=== PATIENT | male | born 1985 | race Hispanic/Latino ===

== ENCOUNTER 2018-08-13 13:59 | Emergency (ER) | payer SELFPAY ==
[2018-08-13 15:14] LABS: RBC Red Blood Cell Count 4.32 M/uL (4.33-5.43)
[2018-08-13 15:15] LABS: Absolute Lymphocytes (CBC) 2.2 K/uL (0.7-4.9); Absolute Monocytes 0.6 K/uL (0.1-1.3); Absolute Neutrophil 5.5 K/uL (1.8-8.0); Basophils % 0.3 % (0-1.3); Eosinophils % 2.8 % (0-4.4); Lymphocytes % 26.2 % (15.3-44.8); MCH 31.4 pg (27.0-35.0); MCV 90.4 fL (80-100); Monocytes % 6.5 % (3.3-12.3)
[2018-08-13 15:20] LABS: Protime INR 0.93
[2018-08-13 15:45] LABS: ALT/SGPT 52 U/L (12-78); AST/SGOT 28 U/L (15-37); Albumin 3.8 g/dL (3.4-5.0); Alkaline Phosphatase 77 U/L (45-117); BUN Blood Urea Nitrogen 13 mg/dL (7-18); Bicarbonate 30 mmol/L (21-32); Bilirubin Direct 0.1 mg/dL (0-0.2); Bilirubin Total 0.3 mg/dL (0.2-1.0); Glucose Level 93 mg/dL (74-106); Potassium 4.4 mmol/L (3.5-5.1); Protein, Total 7.8 g/dL (6.4-8.2); Sodium Level 138 mmol/L (136-145)
--- NOTE | 2018-08-13 15:57 | EKG ---
Test Date: 2018-08-13 Test Time: 14:08:49 Alumni Coordinator: SARAH MEASUREMENT RESULTS: Intervals: Rate: 96 MI: 128 QRSD: 88 QT: 338 QTc: 427 [place]: P: 26 MI: 128 QRS: 95 T: 72 INTERPRETIVE STATEMENTS: Normal sinus rhythm Rightward axis Borderline ECG Compared to ECG 02/19/2011 03:48:24 Sinus tachycardia no longer present Electronically Signed On 08-13-18 15:57:07 LINE LEADER by Errol Gallegos
[2018-08-13 16:07] LABS: Barbiturates NEGATIVE (NEGATIVE); Benzodiazepines POSITIVE (NEGATIVE); Cocaine NEGATIVE (NEGATIVE); METHAMPHETAM POSITIVE (NEGATIVE); Methadone NEGATIVE (NEGATIVE); Opiates NEGATIVE (NEGATIVE); Phencyclidine NEGATIVE (NEGATIVE); THC Cannibis POSITIVE (NEGATIVE)
[2018-08-13 16:28] LABS: Urine Blood NEGATIVE (NEG); Urine Glucose NEGATIVE (NEG); Urine Protein NEGATIVE (NEG); Urine pH 7.5 (5.0-7.0)
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
[2018-08-13 18:36] VITALS: TEMP 97.8
[2018-08-13 18:41] VITALS: BP 105/78; O2SAT 98
== END 2018-08-13 18:06 | disposition home or self-care (01) ==
LOC: ER 13:59
DX: Z79.899 Other long term (current) drug therapy (principal); V89.2XXA Person injured in unspecified motor-vehicle accident, traffic, initial encounter; F31.9 Bipolar disorder, unspecified; F41.9 Anxiety disorder, unspecified; F17.290 Nicotine dependence, other tobacco product, uncomplicated
CPT/HCPCS: 36415; 80048; 80076; 80307; 80320; 80329; 81003; 83605; 85025; 85610; 85730; 93005; 99284

== ENCOUNTER 2018-11-15 21:03 | Emergency (ER) | payer SELFPAY ==
[2018-11-15] MEDS ORDERED: NA CHLORIDE 0.9% 1,000 ML ONE (22:07)
[2018-11-15 22:36] LABS: Absolute Lymphocytes (CBC) 2.2 K/uL (0.7-4.9); Absolute Monocytes 0.6 K/uL (0.1-1.3); Absolute Neutrophil 4.6 K/uL (1.8-8.0); Basophils % 0.4 % (0-1.3); Eosinophils % 2.4 % (0-4.4); Hematocrit 37.4 % (39.6-49.0); Lymphocytes % 28.8 % (15.3-44.8); MPV 8.6 fL (7.6-11.3); Monocytes % 7.9 % (3.3-12.3); RBC Red Blood Cell Count 4.16 M/uL (4.33-5.43)
[2018-11-15 22:40] LABS: Protime INR 0.99
[2018-11-15 22:54] LABS: Urine Blood NEGATIVE (NEG); Urine Glucose NEGATIVE (NEG); Urine Protein NEGATIVE (NEG); Urine Specific Gravity 1.015 (1.005-1.030); Urine pH 8.5 (5.0-7.0)
[2018-11-15 22:57] LABS: ALT/SGPT 31 U/L (12-78); AST/SGOT 19 U/L (15-37); Albumin 3.7 g/dL (3.4-5.0); Alkaline Phosphatase 50 U/L (45-117); BUN Blood Urea Nitrogen 11 mg/dL (7-18); Bicarbonate 30 mmol/L (21-32); Bilirubin Direct < 0.1 mg/dL (0-0.2); Bilirubin Total 0.3 mg/dL (0.2-1.0); Glucose Level 86 mg/dL (74-106); Potassium 4.1 mmol/L (3.5-5.1); Protein, Total 7.7 g/dL (6.4-8.2); Sodium Level 139 mmol/L (136-145)
[2018-11-15 22:57] LABS: Barbiturates NEGATIVE (NEGATIVE); Benzodiazepines POSITIVE (NEGATIVE); Cocaine NEGATIVE (NEGATIVE); METHAMPHETAM NEGATIVE (NEGATIVE); Methadone NEGATIVE (NEGATIVE); Opiates NEGATIVE (NEGATIVE); Phencyclidine NEGATIVE (NEGATIVE); THC Cannibis POSITIVE (NEGATIVE)
--- NOTE | 2018-11-16 01:53 | EDPHYS ---
Physician Documentation [facility] Name: Anthony Au Age: 33 yrs Sex: Male : 1985 Arrival Date: 11/15/2018 Time: 21:10 Bed 17 Private MD: ED Physician Rafael Wilson HPI: 11/16 03:31 This 33 yrs old Male presents to ER via EMS with complaints of overdose. tw4 03:31 The patient presents with confusion, decreased mental status, decreased responsiveness. tw4 Onset: The symptoms/episode began/occurred just prior to arrival. Possible causes: drug use, benzodiazepines, narcotics, alcohol, low blood sugar. Associated signs and symptoms: The patient has no apparent associated signs or symptoms. Patient's baseline: Neuro: alert but confused, Motor: no deficits, Ambulation: walks with assist only, Speech:. Historical: - Allergies: 11/15 21:00 No Known Allergies; jb4 - Home Meds: 21:00 clonazepam 2 mg Oral tab 1 tab 2 times per day [Active]; Depakote ER 500 mg Oral Tb24 2 jb4 tabs once daily [Active]; Latuda 80 mg Oral tab 1 tab once daily [Active]; promethazine-codeine 6.25-10 mg/5 mL Oral syrp 5 mL every 6 hours [Active]; straterra [Active]; - PMHx: 21:00 Anxiety; Bipolar disorder; Depression; jb4 - PSHx: 21:00 None; jb4 - Immunization history:: Adult Immunizations up to date, Flu vaccine is not up to date. - Social history:: Smoking status: Patient uses tobacco products, Patient/guardian denies using alcohol, street drugs. - Ebola Screening: : No symptoms or risks identified at this time. ROS: 11/16 03:31 Constitutional: Negative for fever, chills, and weight loss, Cardiovascular: Negative tw4 for chest pain, palpitations, and edema, Respiratory: Negative for shortness of breath, cough, wheezing, and pleuritic chest pain, Abdomen/GI: Negative for abdominal pain, nausea, vomiting, diarrhea, and constipation, Back: Negative for injury and pain, MS/Extremity: Negative for injury and deformity. Neuro: Positive for altered mental status, Negative for dizziness, gait disturbance, headache, hearing loss, seizure activity, speech changes, syncope, near syncope. Exam: 03:31 Constitutional: This is a well developed, well nourished patient who is awake, alert, tw4 and in no acute distress. Head/Face: Normocephalic, atraumatic. Chest/axilla: Normal chest wall appearance and motion. Nontender with no deformity. No lesions are appreciated. Cardiovascular: Regular rate and rhythm with a normal S1 and S2. No gallops, murmurs, or rubs. Normal PMI, no JVD. No pulse deficits. Respiratory: Lungs have equal breath sounds bilaterally, clear to auscultation and percussion. No rales, rhonchi or wheezes noted. No increased work of breathing, no retractions or nasal flaring. Abdomen/GI: Soft, non-tender, with normal bowel sounds. No distension or tympany. No guarding or rebound. No evidence of tenderness throughout. Back: No spinal tenderness. No costovertebral tenderness. Full range of motion. MS/ Extremity: Pulses equal, no cyanosis. Neurovascular intact. Full, normal range of motion. 03:31 Neuro: Orientation: is normal, Mentation: is normal. Vital Signs: 11/15 21:00 BP 110 / 95; Pulse 96; Resp 16; Temp 99.0(O); Pulse Ox 98% on R/A; Weight 99.79 kg (R); jb4 Height 5 ft. 8 in. (172.72 cm) (R); Pain 0/10; 21:46 BP 124 / 94; Pulse 90; Resp 16; Pulse Ox 98% on R/A; mt 23:42 BP 106 / 72; Pulse 88; Resp 17; Pulse Ox 98% on R/A; mt 11/16 00:43 BP 118 / 83; Pulse 87; Resp 20; Pulse Ox 100% on R/A; mt 01:15 BP 108 / 72; Pulse 76; Resp 18; Pulse Ox 99% on R/A; jb4 11/15 21:00 Body Mass Index 33.45 (99.79 kg, 172.72 cm) [facility] MDM: 11/15 21:14 Patient medically screened. tw4 11/16 03:31 Differential Diagnosis: CVA, electrolyte abnormality. Data reviewed: vital signs, tw4 nurses notes. Counseling: I had a detailed discussion with the patient and/or guardian regarding: the historical points, exam findings, and any diagnostic results supporting the discharge/admit diagnosis. Special discussion: I discussed with the patient/guardian in detail that at this point there is no indication for admission to the hospital. It is understood, however, that if the symptoms persist or worsen the patient needs to return immediately for re-evaluation. ED course: Pt became more awake and alert during ED stay. Pt admits to taking too much of his Klomopin. Pt family able to take patient home. 11/15 21:15 Order name: Acetaminophen; Complete Time: 00:11/16 00:13 Interpretation: Within normal limits: ACETA < 2.0. 11/15 21:15 Order name: Basic Metabolic Panel; Complete Time: 00:11/16 00:13 Interpretation: Normal except: GFR 89. 11/15 21:15 Order name: CBC with Diff; Complete Time: 00:13 11/16 00:13 Interpretation: Within normal limits: RBC 4.16; HGB 12.7; HCT 37.4. 11/15 21:15 Order name: ETOH Level; Complete Time: 00:14 11/16 00:14 Interpretation: Within normal limits: ETOH < 3. 11/15 21:15 Order name: Hepatic Function; Complete Time: 00:13 11/16 00:13 Interpretation: Normal except: GLOB 4.0; A/G 0.9. 11/15 21:15 Order name: PT-INR; Complete Time: 00:14 11/16 00:14 Interpretation: Within normal limits: PT 11.7. 11/15 21:15 Order name: Ptt, Activated; Complete Time: 00:14 11/16 00:14 Interpretation: PTT 29.1. 11/15 21:15 Order name: Salicylate; Complete Time: 00:11/16 00:13 Interpretation: Normal except: RENALDO < 1.7. 11/15 21:15 Order name: Urine Drug Screen; Complete Time: 00:13 11/16 00:13 Interpretation: Normal except: BZO POSITIVE; THC POSITIVE. 11/15 21:15 Order name: EKG; Complete Time: 22:24 11/15 21:15 Order name: EKG - Nurse/Tech; Complete Time: 21:46 4 11/15 22:36 Order name: Urine Dipstick--Ancillary (enter results); Complete Time: 00:13 4 11/16 00:13 Interpretation: Normal except: UPH 8.5. tw4 11/15 21:15 Order name: IV Saline Lock; Complete Time: 21:46 tw4 11/15 21:15 Order name: Labs collected and sent; Complete Time: 21:46 4 11/15 21:15 Order name: Urine Dipstick-Ancillary (obtain specimen); Complete Time: 22:21 tw4 Administered Medications: 11/15 21:50 Drug: NS 0.9% 1000 ml Route: IV; Rate: 1 bolus; Site: right antecubital; [facility] 11/16 01:00 Follow up: Response: No adverse reaction; IV Status: Completed infusion [facility] 02:50 Not Given (Patient Refused): NS 0.9% 1000 ml IV at 1 bolus Per protocol; 1000 mL bolus [facility] Disposition: 11/16/18 01:52 Discharged to Home. Impression: Adverse effect of benzodiazepines, Altered mental status, unspecified. - Condition is Stable. - Discharge Instructions: Accidental Overdose. - Medication Reconciliation Form, Thank You Letter, Antibiotic Education, Prescription Opioid Use form. - Follow up: Private Physician; When: Upon discharge from the Emergency Department; Reason: If symptoms return, Recheck today's complaints, Continuance of care. - Problem is new. - Symptoms have improved. Signatures: Dispatcher [employer] EDAL Kashif Montes RN RN jb4 Rafael Wilson MD MD tw4 Corrections: (The following items were deleted from the chart) 02:53 01:52 11/16/2018 01:52 Discharged to Home. Impression: Adverse effect of jb4 benzodiazepines; Altered mental status, unspecified. Condition is Stable. Forms are Medication Reconciliation Form, Thank You Letter, Antibiotic Education, Prescription Opioid Use. Follow up: Private Physician; When: Upon discharge from the Emergency Department; Reason: If symptoms return, Recheck today's complaints, Continuance of care. Problem is new. Symptoms have improved. tw4 03:53 03:31 Constitutional: Negative for fever, chills, and weight loss, Eyes: Negative for tw4 injury, pain, redness, and discharge, Cardiovascular: Negative for chest pain, palpitations, and edema, Respiratory: Negative for shortness of breath, cough, wheezing, and pleuritic chest pain, Abdomen/GI: Negative for abdominal pain, nausea, vomiting, diarrhea, and constipation, Back: Negative for injury and pain, MS/Extremity: Negative for injury and deformity, Skin: Negative for injury, rash, and discoloration, Neuro: Negative for headache, weakness, numbness, tingling, and seizure, tw4
--- NOTE | 2018-11-16 01:53 | ER ---
Nurse's Notes [facility] Name: Anthony Au Age: 33 yrs Sex: Male : 1985 Arrival Date: 11/15/2018 Time: 21:10 Bed 17 Private MD: Diagnosis: Adverse effect of benzodiazepines;Altered mental status, unspecified Presentation: 11/15 21:00 Presenting complaint: EMS states: Pt was at [facility] acting incoherent and shaking, jb4 staff called pd who then called us. Pt has slowed speech and slowed responses and is AMS. Pt was found with an empty bottle of alprazolam 2mg, and promethazine w/ codeine. 21:00 Transition of care: patient was not received from another setting of care. Onset of jb4 symptoms was November 15, 2018. Risk Assessment: Do you want to hurt yourself or someone else? Patient reports no desire to harm self or others. Initial Sepsis Screen: Does the patient meet any 2 criteria? Altered Mental Status. HR > 90 bpm. Yes Does the patient have a suspected source of infection? No. Patient's initial sepsis screen is negative. Care prior to arrival: None. 21:00 Method Of Arrival: EMS: [facility] jb4 21:00 Acuity: MARKY 2 jb4 Triage Assessment: 21:00 General: Appears in no apparent distress. comfortable, Behavior is calm, cooperative, jb4 drowsy. Pain: Denies pain. EENT: No signs and/or symptoms were reported regarding the EENT system. Neuro: Level of Consciousness is awake, obeys commands, confused, lethargic, Oriented to person, place, Speech Speech is slurred and slowed.. Pupils are PERRLA, dilated. Cardiovascular: Patient's skin is warm and dry. Respiratory: Airway is patent Respiratory effort is even, unlabored, Respiratory pattern is regular, symmetrical. GI: No signs and/or symptoms were reported involving the gastrointestinal system. : No signs and/or symptoms were reported regarding the genitourinary system. Derm: Skin is intact, Skin is pink, warm \T\ dry. Musculoskeletal: Circulation, motion, and sensation intact. Historical: - Allergies: 21:00 No Known Allergies; jb4 - Home Meds: 21:00 clonazepam 2 mg Oral tab 1 tab 2 times per day [Active]; Depakote ER 500 mg Oral Tb24 2 jb4 tabs once daily [Active]; Latuda 80 mg Oral tab 1 tab once daily [Active]; promethazine-codeine 6.25-10 mg/5 mL Oral syrp 5 mL every 6 hours [Active]; straterra [Active]; - PMHx: 21:00 Anxiety; Bipolar disorder; Depression; jb4 - PSHx: 21:00 None; jb4 - Immunization history:: Adult Immunizations up to date, Flu vaccine is not up to date. - Social history:: Smoking status: Patient uses tobacco products, Patient/guardian denies using alcohol, street drugs. - Ebola Screening: : No symptoms or risks identified at this time. Screenin:00 Abuse screen: Denies threats or abuse. Nutritional screening: No deficits noted. jb4 Tuberculosis screening: No symptoms or risk factors identified. Fall Risk Mental Status- Overestimates/Forgets Limitations (15 pts.). Total Mclaughlin Fall Scale indicates No Risk (0-24 pts). Assessment: 21:00 General: see triage assessment.. jb4 21:15 Reassessment: Poison control recommends doing a full work up. Acetaminophen, ASA, CMP, jb4 Urine drug, ETOH, AST, ACT, 12 lead EKG, CBC, cardiac rehab nurse, IV Fluids, Oxygen supplement. 22:34 Reassessment: Patient appears in no apparent distress at this time. Patient and/or jb4 family updated on plan of care and expected duration. Pain level reassessed. Pt is more easily awakened, speech is more clear and not as slow as before. Pt is still oriented to self and place only. 23:30 Reassessment: Patient appears in no apparent distress at this time. No changes from jb4 previously documented assessment. Patient and/or family updated on plan of care and expected duration. Pain level reassessed. 11/16 00:30 Reassessment: Patient appears in no apparent distress at this time. No changes from jb4 previously documented assessment. Patient and/or family updated on plan of care and expected duration. Pain level reassessed. 01:31 Reassessment: Tatiana with poison control updated with case closed. ak1 02:00 Reassessment: Patient appears in no apparent distress at this time. Patient and/or jb4 family updated on plan of care and expected duration. Pain level reassessed. Patient is alert, oriented x 3, equal unlabored respirations, skin warm/dry/pink. Vital Signs: 11/15 21:00 BP 110 / 95; Pulse 96; Resp 16; Temp 99.0(O); Pulse Ox 98% on R/A; Weight 99.79 kg (R); jb4 Height 5 ft. 8 in. (172.72 cm) (R); Pain 0/10; 21:46 BP 124 / 94; Pulse 90; Resp 16; Pulse Ox 98% on R/A; mt 23:42 BP 106 / 72; Pulse 88; Resp 17; Pulse Ox 98% on R/A; mt 02 00:43 BP 118 / 83; Pulse 87; Resp 20; Pulse Ox 100% on R/A; mt 01:15 BP 108 / 72; Pulse 76; Resp 18; Pulse Ox 99% on R/A; jb4 11/15 21:00 Body Mass Index 33.45 (99.79 kg, 172.72 cm) jb4 ED Course: 11/15 21:00 Arm band placed on right wrist. jb4 21:00 Patient has correct armband on for positive identification. Bed in low position. Call jb4 light in reach. Side rails up X 1. hogshead cooper on. Pulse ox on. NIBP on. 21:10 Patient arrived in ED. jb4 21:14 Rafael Wilson MD is Attending Physician. tw4 21:25 Triage completed. jb4 21:36 Kashif Montes, VINI is Primary Nurse. jb4 21:46 Inserted saline lock: 20 gauge in right antecubital area, using aseptic technique. nm Blood collected. 11/16 01:45 No provider procedures requiring assistance completed. IV discontinued, intact, jb4 bleeding controlled. Administered Medications: 11/15 21:50 Drug: NS 0.9% 1000 ml Route: IV; Rate: 1 bolus; Site: right antecubital; jb4 11/16 01:00 Follow up: Response: No adverse reaction; IV Status: Completed infusion jb4 02:50 Not Given (Patient Refused): NS 0.9% 1000 ml IV at 1 bolus Per protocol; 1000 mL bolus jb4 Outcome: 01:52 Discharge ordered by . tw4 02:00 Discharged to home ambulatory, with family. jb4 02:00 Condition: stable 02:00 Discharge instructions given to patient, family, Instructed on discharge instructions, follow up and referral plans. Demonstrated understanding of instructions, follow-up care. 02:53 Patient left the ED. jb4 Signatures: Tiffanie Barton RN RN ak1 Kashif Montes RN RN jb4 Opal Meza mt, Terrence, MD MD tw4 Corrections: (The following items were deleted from the chart) 11/15 21:25 21:10 Presenting complaint: jb4 jb4 21: 21:00 Neuro: Level of Consciousness is awake, obeys commands, confused, lethargic, jb4 Oriented to person, place, jb4
[2018-11-16 05:20] VITALS: BP 108/72; O2SAT 99
--- NOTE | 2018-11-16 07:45 | EKG ---
Test Date: 2018-11-15 Test Time: 21:33:06 Hospital Cna: [facility] MEASUREMENT RESULTS: Intervals: Rate: 78 DE: 132 QRSD: 80 QT: 368 QTc: 419 [place]: P: 40 DE: 132 QRS: 88 T: 56 INTERPRETIVE STATEMENTS: Normal sinus rhythm Normal ECG Compared to ECG 08/13/2018 14:08:49 Right-axis deviation no longer present Electronically Signed On 11-16-18 06:51:46 PIANO BUILDER by Charli Nance
== END 2018-11-16 02:53 | disposition home or self-care (01) ==
LOC: ER 21:03
DX: R41.82 Altered mental status, unspecified (principal); T42.4X5A Adverse effect of benzodiazepines, initial encounter; F32.9 Major depressive disorder, single episode, unspecified; F41.9 Anxiety disorder, unspecified; F31.9 Bipolar disorder, unspecified; Z72.0 Tobacco use
CPT/HCPCS: 36415; 80048; 80076; 80307; 80320; 80329; 81003; 85025; 85610; 85730; 93005; 96360; 96361; 99284; J7030

== ENCOUNTER 2019-04-22 08:55 | Emergency (ER) | payer SELFPAY ==
[2019-04-22 10:18] LABS: Absolute Lymphocytes (CBC) 2.5 K/uL (0.7-4.9); Basophils % 0.7 % (0-1.3); Eosinophils % 3.2 % (0-4.4); Lymphocytes % 31.5 % (15.3-44.8); MPV 8.3 fL (7.6-11.3); Monocytes % 9.1 % (3.3-12.3); RBC Red Blood Cell Count 4.24 M/uL (4.33-5.43)
[2019-04-22] MEDS ORDERED: KETOROLAC 30 MG/ML INJ ONE (10:35)
[2019-04-22 10:38] LABS: Albumin 3.7 g/dL (3.4-5.0); Bilirubin Direct 0.1 mg/dL (0-0.2); Bilirubin Total 0.4 mg/dL (0.2-1.0); Potassium 4.1 mmol/L (3.5-5.1); Protein, Total 7.7 g/dL (6.4-8.2)
--- NOTE | 2019-04-22 11:05 | RAD REPORT ---
EXAM DESCRIPTION: CT - Abdomen W Contrast CLINICAL HISTORY: TRAUMA Abdominal pain COMPARISON: [facility] Protocol dated 11/03/[address] scans are performed using dose optimization technique as appropriate and may includ e automated exposure control or mA/KV adjustment according to patient size. FINDINGS: The lower lung gutierrez are clear. The liver, spleen, pancreas, adrenal glands and kidneys are within normal limits. No free fluid, bowel obstruction or free air. No significant adenopathy in the abdomen. No significant bony finding. IMPRESSION: Unremarkable examination.
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
--- NOTE | 2019-04-22 11:18 | ER ---
Nurse's Notes [facility] Name: Anthony Au Age: 34 yrs Sex: Male : 1985 Arrival Date: 04/22/2019 Time: 08:58 Bed 18 Private MD: Diagnosis: Upper abdominal pain, unspecified Presentation: 04/22 09:05 Presenting complaint: Patient states: "I noticed a lump on my stomach yesterday (to aa5 LUQ)". Pt c/o pressure to site, denies pain. Transition of care: patient was not received from another setting of care. Onset of symptoms was April 2019. Risk Assessment: Do you want to hurt yourself or someone else? Patient reports no desire to harm self or others. Initial Sepsis Screen: Does the patient meet any 2 criteria? No. Patient's initial sepsis screen is negative. Does the patient have a suspected source of infection? No. Patient's initial sepsis screen is negative. Care prior to arrival: None. 09:05 Method Of Arrival: Ambulatory aa5 09:05 Acuity: MARKY 3 aa5 Historical: - Allergies: 09:06 No Known Allergies; aa5 - PMHx: 09:06 Anxiety; Bipolar disorder; Depression; aa5 09:38 scalp laceration repair.; ae4 - PSHx: 09:06 None; aa5 - Immunization history:: Adult Immunizations unknown. - Social history:: Smoking status: Patient uses tobacco products, smokes one pack cigarettes per day. Patient uses street drugs, marijuana. - Ebola Screening: : No symptoms or risks identified at this time. Screenin:37 Abuse screen: Denies threats or abuse. Nutritional screening: No deficits noted. ae4 Tuberculosis screening: No symptoms or risk factors identified. Fall Risk. Assessment: 09:30 General: Appears in no apparent distress. comfortable, Behavior is cooperative, ae4 anxious. Pain: Complains of pain in left upper quadrant. Neuro: Level of Consciousness is awake, alert, obeys commands, Oriented to person, place, time, situation, Appropriate for age. Cardiovascular: Heart tones S1 S2 present Patient's skin is warm and dry. Respiratory: Airway is patent Respiratory effort is even, unlabored, Respiratory pattern is regular, symmetrical, Breath sounds with wheezes bilaterally. in right middle lobe, left lower lobe and right lower lobe. GI: Abdomen is round distended, obese, Bowel sounds present X 4 quads. Abdomen is tender to palpation in left upper quadrant Palpable mass to left upper quadrant. : No signs and/or symptoms were reported regarding the genitourinary system. EENT: No signs and/or symptoms were reported regarding the EENT system. Derm: No signs and/or symptoms reported regarding the dermatologic system. Musculoskeletal: No signs and/or symptoms reported regarding the musculoskeletal system. 11:31 Reassessment: Patient appears in no apparent distress at this time. Patient states ae4 feeling better. Patient states symptoms have improved. Vital Signs: 09:06 BP 127 / 86; Pulse 83; Resp 16 S; Temp 98.4(O); Pulse Ox 97% on R/A; Weight 99.79 kg aa5 (R); Height 5 ft. 8 in. (172.72 cm) (R); Pain 0/10; 10:24 BP 117 / 82; Pulse 87; Resp 16; Pulse Ox 94% on R/A; ae4 11:16 BP 120 / 78; Pulse 64; Resp 17; Temp 98.1(O); Pulse Ox 94% on R/A; mh5 09:06 Body Mass Index 33.45 (99.79 kg, 172.72 cm) aa5 ED Course: 08:58 Patient arrived in ED. as 09:06 Triage completed. aa5 09:06 Arm band placed on. aa5 09:08 Lex Lora, VINI is Primary Nurse. ae4 09:27 Zuleika Torres FNP-C [facility]. snw 09:27 Fernandez Manzano MD is Attending Physician. snw 09:37 Bed in low position. Call light in reach. Side rails up X 1. ae4 10:07 Inserted saline lock: 20 gauge in right antecubital area, using aseptic technique. ae4 Blood collected. 10:26 Warm blanket given. ae4 10:53 CT Abdomen - IV Contrast Only In Process Unspecified. EDMS 11:31 No provider procedures requiring assistance completed. IV discontinued, intact, ae4 bleeding controlled, No redness/swelling at site. Pressure dressing applied. Administered Medications: 10:14 Drug: TORadol - Ketorolac 15 mg Route: IVP; Site: right antecubital; ae4 11:30 Follow up: Response: Pain is decreased ae4 Outcome: 11:17 Discharge ordered by MD. vargas 11:31 Discharged to home ambulatory. ae4 11:31 Condition: stable 11:31 Discharge instructions given to patient, Instructed on discharge instructions, follow up and referral plans. Demonstrated understanding of instructions, Prescriptions given X 1. 11:32 Patient left the ED. ae4 Signatures: Dispatcher [employer] EDMS Zuleika Torres, FABRICATION AND ASSEMBLY SUPERVISOR-C FABRICATION AND ASSEMBLY SUPERVISOR-Chel Moran Audri, RN RN [email or web address] Hanh Ruffin Lex Alcocer RN RN ae4
[2019-04-22 11:46] LABS: Urine Blood NEGATIVE (NEG); Urine Glucose NEGATIVE (NEG); Urine Protein NEGATIVE (NEG)
[2019-04-22 11:50] VITALS: O2SAT 94
[2019-04-22 11:52] VITALS: BP 120/78; TEMP 98.1
== END 2019-04-22 11:32 | disposition home or self-care (01) ==
LOC: ER 08:55
DX: R10.12 Left upper quadrant pain (principal); F41.9 Anxiety disorder, unspecified; F31.9 Bipolar disorder, unspecified; F32.9 Major depressive disorder, single episode, unspecified; F17.210 Nicotine dependence, cigarettes, uncomplicated
CPT/HCPCS: 36415; 74160; 80048; 80076; 81003; 85025; 96374; 99284; Q9967

== ENCOUNTER 2019-09-28 10:33 | Emergency (ER) | payer SELFPAY ==
[2019-09-28] MEDS ORDERED: ALBUTEROL 2.5 MG/3 ML NEB SOL ONE ×2 (11:37→12:41)
[2019-09-28] MEDS ORDERED: IPRATROPIUM BROM 0.5MG/2.5ML ONE (11:37)
[2019-09-28] MEDS ORDERED: dexAMETHasone 10 MG/ML VIAL ONE (11:37)
--- NOTE | 2019-09-28 11:39 | RAD REPORT ---
EXAM DESCRIPTION: RAD - Chest Pa And Lat (2 Views) - 09/28/2019 11:34 am CLINICAL HISTORY: COUGH, congestion x1 month COMPARISON: April 2012 TECHNIQUE: PA and lateral views of the chest were obtained. FINDINGS: The lungs are clear. Heart size is normal and central vasculature is within normal limit s. No pleural effusion or pneumothorax seen. No acute bony finding noted. No aortic abnormality. IMPRESSION: No acute cardiopulmonary process.
[2019-09-28] MEDS ORDERED: CODEINE 30MG/APAP 300MG TAB ONE (12:23)
[2019-09-28] MEDS ORDERED: LORAZEPAM 0.5 MG TABLET ONE (12:43)
--- NOTE | 2019-09-28 12:50 | ER ---
Nurse's Notes [facility] Name: Anthony Au Age: 34 yrs Sex: Male : 1985 Arrival Date: 09/28/2019 Time: 10:35 Bed 17 Private MD: Diagnosis: Bronchitis, not specified as acute or chronic;Cough Presentation: 09/28 10:42 Presenting complaint: Patient states: reports congestion and cough x 1 month. Reports sr5 phlegm causing him to vomit at times. Bilaterally inspiratory/expiratory wheezing noted. Transition of care: patient was not received from another setting of care. Onset of symptoms was September 01, 2019. Risk Assessment: Do you want to hurt yourself or someone else? Patient reports no desire to harm self or others. Initial Sepsis Screen: Does the patient meet any 2 criteria? No. Patient's initial sepsis screen is negative. Care prior to arrival: None. 10:42 Method Of Arrival: Ambulatory sr5 10:42 Acuity: MARKY 3 sr5 13:04 Initial Sepsis Screen: Does the patient have a suspected source of infection? No. ae4 Patient's initial sepsis screen is negative. Triage Assessment: 10:44 General: Appears uncomfortable, Behavior is calm, cooperative. Pain: Complains of pain sr5 in left upper quadrant, I've had a knot in my stomach, MRI said it was fine. Neuro: No deficits noted. Cardiovascular: No deficits noted. Respiratory: Respiratory effort is even, unlabored, Respiratory pattern is regular, symmetrical, Breath sounds with wheezes bilaterally. Historical: - Allergies: 10:44 No Known Allergies; sr5 - Home Meds: 13:04 clonazepam 2 mg Oral tab 1 tab 2 times per day [Active]; Depakote ER 500 mg Oral Tb24 2 ae4 tabs once daily [Active]; Latuda 80 mg Oral tab 1 tab once daily [Active]; promethazine-codeine 6.25-10 mg/5 mL Oral syrp 5 mL every 6 hours [Active]; straterra [Active]; - PMHx: 10:44 Anxiety; Bipolar disorder; Depression; scalp laceration repair.; sr5 - PSHx: 10:44 None; sr5 - Immunization history:: Flu vaccine is not up to date. - Social history:: Smoking status: Patient uses tobacco products, denies chronic smoking, but will smoke occasionally. - Ebola Screening: : Patient negative for fever greater than or equal to 101.5 degrees Fahrenheit, and additional compatible Ebola Virus Disease symptoms. Screenin:02 Abuse screen: Denies threats or abuse. Nutritional screening: No deficits noted. ae4 Tuberculosis screening: No symptoms or risk factors identified. Fall Risk None identified. Assessment: 12:30 Reassessment: Patient is requesting "something for anxiety", provider notified, new ae4 orders. received. Vital Signs: 10:44 BP 132 / 96; Pulse 73; Resp 20; Temp 98.6; Pulse Ox 96% on R/A; Weight 90.72 kg; Height sr5 5 ft. 8 in. (172.72 cm); 12:56 BP 155 / 96; Pulse 82; Resp 19; Pulse Ox 100% on R/A; ae4 10:44 Body Mass Index 30.41 (90.72 kg, 172.72 cm) sr5 ED Course: 10:35 Patient arrived in ED. as 10:43 Triage completed. sr5 10:44 Arm band placed on right wrist. sr5 10:45 Patient has correct armband on for positive identification. Call light in reach. Side ae4 rails up X 1. Pulse ox on. NIBP on. 10:45 No provider procedures requiring assistance completed. Patient did not have IV access ae4 during this emergency room visit. 11:02 Alessandro Grier FNP-C [facility]. la1 11:02 River Kang MD is Attending Physician. la1 11:30 Lex Lora, VINI is Primary Nurse. ae4 11:37 X-ray completed. Patient tolerated procedure well. Patient moved back from radiology. mh1 11:38 Chest Pa And Lat (2 Views) XRAY In Process Unspecified. EDMS Administered Medications: 11:38 Drug: Albuterol - atroVENT (3:1) (2.5 mg - 0.5 mg) 3 ml Route: Nebulizer; ae4 13:05 Follow up: Response: Wheezing diminished; Wheezing diminished, crackles diminished. ae4 11:40 Drug: Decadron 10 mg Route: PO; ae4 13:05 Follow up: Response: No adverse reaction ae4 12:23 Drug: Tylenol #3 (300 mg-30 mg) 2 tabs Route: PO; ae4 13:05 Follow up: Response: Pain is decreased; RASS: Alert and Calm (0) ae4 12:43 Drug: Albuterol 2.5 mg Route: Inhalation; ae4 12:43 Drug: Ativan 0.5 mg Route: PO; ae4 13:05 Follow up: Response: No adverse reaction; Anxiety decreased ae4 Outcome: 10:45 Discharged to home ambulatory. ae4 10:45 Condition: stable 10:45 Discharge instructions given to patient, Instructed on discharge instructions, Demonstrated understanding of instructions, Prescriptions given X 3. 12:50 Discharge ordered by . la1 13:06 Patient left the ED. ae4 Signatures: Dispatcher [employer] EDMS Rena Millan Chel Onofre Lee, RETAIL COORDINATOR-C RETAIL COORDINATOR-Cla1 Chente Orellana RN RN sr5 Lex Lora RN RN ae4 Corrections: (The following items were deleted from the chart) 10:46 10:42 Presenting complaint: Patient states: reports congestion and cough x 1 month. sr5 Reports phlegm causing him to vomit at times. sr5 10:46 10:42 Acuity: MARKY 4 sr5 sr5
--- NOTE | 2019-09-28 12:50 | EDPHYS ---
Physician Documentation [facility] Name: Anthony Au Age: 34 yrs Sex: Male : 1985 Arrival Date: 09/28/2019 Time: 10:35 Bed 17 Private MD: ED Physician River Kang HPI: 09/28 11:22 This 34 yrs old Male presents to ER via Ambulatory with complaints of Chest la1 Congestion. 11:22 The patient presents to the emergency department with wheezing, Current therapy: la1 antibiotics, Augmentin, the patient was reported to have chest congestion, productive cough. Onset: The symptoms/episode began/occurred 2 month(s) ago. Modifying factors: The symptoms are alleviated by nothing, the symptoms are aggravated by nothing. Associated signs and symptoms: Pertinent negatives: chest pain, choking, palpitations, vomiting. Severity of symptoms: At their worst the symptoms were moderate. The patient has not experienced similar symptoms in the past. The patient has been recently seen by a physician: the patient's primary care provider, with similar presenting complaints, was given a prescription for antibiotics. Historical: - Allergies: 10:44 No Known Allergies; sr5 - Home Meds: 13:04 clonazepam 2 mg Oral tab 1 tab 2 times per day [Active]; Depakote ER 500 mg Oral Tb24 2 ae4 tabs once daily [Active]; Latuda 80 mg Oral tab 1 tab once daily [Active]; promethazine-codeine 6.25-10 mg/5 mL Oral syrp 5 mL every 6 hours [Active]; straterra [Active]; - PMHx: 10:44 Anxiety; Bipolar disorder; Depression; scalp laceration repair.; sr5 - PSHx: 10:44 None; sr5 - Immunization history:: Flu vaccine is not up to date. - Social history:: Smoking status: Patient uses tobacco products, denies chronic smoking, but will smoke occasionally. - Ebola Screening: : Patient negative for fever greater than or equal to 101.5 degrees Fahrenheit, and additional compatible Ebola Virus Disease symptoms. ROS: 11:23 Constitutional: Negative for fever, chills, and weight loss, Eyes: Negative for injury, la1 pain, redness, and discharge, ENT: Negative for injury, pain, and discharge, Neck: Negative for injury, pain, and swelling. 11:23 Respiratory: Positive for cough, shortness of breath, wheezing, Negative for dyspnea on exertion, hemoptysis. 11:23 Cardiovascular: Negative for chest pain, palpitations, and edema, Abdomen/GI: Negative la1 for abdominal pain, nausea, vomiting, diarrhea, and constipation, : Negative for injury, bleeding, discharge, and swelling, MS/Extremity: Negative for injury and deformity. Exam: 11:23 Constitutional: This is a well developed, well nourished patient who is awake, alert, la1 and in no acute distress. Head/Face: Normocephalic, atraumatic. Eyes: Pupils equal round and reactive to light, extra-ocular motions intact. Periorbital areas with no swelling, redness, or edema. ENT: Mucous membranes moist. Neck: . No Meningismus. Chest/axilla: Normal chest wall appearance and motion. Nontender with no deformity. No lesions are appreciated. Cardiovascular: Regular rate and rhythm with a normal S1 and S2. No gallops, murmurs, or rubs. Normal PMI, no JVD. No pulse deficits. 11:23 Abdomen/GI: Soft, non-tender, with normal bowel sounds. No distension or tympany. No guarding or rebound. No evidence of tenderness throughout. 11:23 Respiratory: mild respiratory distress is noted, Respirations: normal, symetrical, no use of accessory muscles, no grunting, no appreciated paradoxical movements, no prolonged exhalations, no pursed lip breathing, no retractions, no shallow respirations, no splinting, no tachypnea, Breath sounds: bronchial sounds, that are moderate, are heard diffusely, wheezing: is heard diffusely. Vital Signs: 10:44 BP 132 / 96; Pulse 73; Resp 20; Temp 98.6; Pulse Ox 96% on R/A; Weight 90.72 kg; Height sr5 5 ft. 8 in. (172.72 cm); 12:56 BP 155 / 96; Pulse 82; Resp 19; Pulse Ox 100% on R/A; ae4 10:44 Body Mass Index 30.41 (90.72 kg, 172.72 cm) sr5 MDM: 11:04 Patient medically screened. irvin 12:48 Antibiotic administration:. Data reviewed: vital signs, nurses notes, radiologic la1 studies, and as a result, I will discharge patient. Data interpreted: Pulse oximetry: on room air is 96 %. Interpretation: normal. Test interpretation: by ED physician or midlevel provider: plain radiologic studies. Counseling: I had a detailed discussion with the patient and/or guardian regarding: the historical points, exam findings, and any diagnostic results supporting the discharge/admit diagnosis, the presence of at least one elevated blood pressure reading (>120/80) during this emergency department visit, radiology results, the need for outpatient follow up, a family practitioner, smoking cessation. Medication response: albuterol nebulizer treatment(s) partially relieved the patient's wheezing. Response to treatment: the patient's symptoms have mildly improved after treatment, and as a result, I will discharge patient. Special discussion: Based on the history and exam findings, there is no indication for further emergent testing or inpatient evaluation. I discussed with the patient/guardian the need to see the primary care provider for further evaluation of the symptoms. 09/28 11:19 Order name: Chest Pa And Lat (2 Views) XRAY; Complete Time: 11:40 la1 Administered Medications: 11:38 Drug: Albuterol - atroVENT (3:1) (2.5 mg - 0.5 mg) 3 ml Route: Nebulizer; ae4 13:05 Follow up: Response: Wheezing diminished; Wheezing diminished, crackles diminished. ae4 11:40 Drug: Decadron 10 mg Route: PO; ae4 13:05 Follow up: Response: No adverse reaction ae4 12:23 Drug: Tylenol #3 (300 mg-30 mg) 2 tabs Route: PO; ae4 13:05 Follow up: Response: Pain is decreased; RASS: Alert and Calm (0) ae4 12:43 Drug: Albuterol 2.5 mg Route: Inhalation; ae4 12:43 Drug: Ativan 0.5 mg Route: PO; ae4 13:05 Follow up: Response: No adverse reaction; Anxiety decreased ae4 Disposition: 19:51 Co-signature as Attending Physician, River Kang MD I agree with the assessment and irvin plan of care. Disposition: 09/28/19 12:50 Discharged to Home. Impression: Bronchitis, not specified as acute or chronic, Cough. - Condition is Stable. - Discharge Instructions: Acute Bronchitis, Adult, Allergies, Adult, How to Use an Inhaler, Upper Respiratory Infection, Adult, Allergies, [id number]. - Prescriptions for Tessalon Perles 100 mg Oral Capsule - take 1 capsule by ORAL route every 8 hours As needed; 15 capsule. Medrol (Ismael) 4 mg Oral Tablets, Dose Pack - take 1 tablet by ORAL route as directed - follow package instructions; 1 packet. Albuterol Sulfate 90 mcg/actuation - inhale 1-2 puff by INHALATION route every 4-6 hours; 1 Inhaler. - Medication Reconciliation Form, Thank You Letter, Antibiotic Education form. - Follow up: Private Physician; When: 2 - 3 days; Reason: Recheck today's complaints, Re-evaluation by your physician. Follow up: Emergency Department; When: As needed. - Problem is new. - Symptoms have improved. Signatures: Dispatcher [employer] EDDE River Kang MD MD cha Attema, Lee, CILNICAL SCIENTIST-C CILNICAL SCIENTIST-Cla1 Chente Orellana RN RN sr5 Lex Lora RN RN ae4 Corrections: (The following items were deleted from the chart) 13:06 12:50 09/28/2019 12:50 Discharged to Home. Impression: Bronchitis, not specified as ae4 acute or chronic; Cough. Condition is Stable. Forms are Medication Reconciliation Form, Thank You Letter, Antibiotic Education, Prescription Opioid Use. Follow up: Private Physician; When: 2 - 3 days; Reason: Recheck today's complaints, Re-evaluation by your physician. Follow up: Emergency Department; When: As needed. Problem is new. Symptoms have improved. la1
[2019-09-28 13:13] VITALS: TEMP 98.6
[2019-09-28 13:14] VITALS: BP 155/96; O2SAT 100
== END 2019-09-28 13:06 | disposition home or self-care (01) ==
LOC: ER 10:33
DX: J40 Bronchitis, not specified as acute or chronic (principal); F31.9 Bipolar disorder, unspecified; Z72.0 Tobacco use
CPT/HCPCS: 71046; 94640; 99284; J1100

== ENCOUNTER 2019-09-29 09:30 | Emergency (ER) | payer SELFPAY ==
[2019-09-29] MEDS ORDERED: dexAMETHasone 10 MG/ML VIAL ONE (09:45)
[2019-09-29] MEDS ORDERED: AZITHROMYCIN 250 MG TAB ONE (09:45)
[2019-09-29] MEDS ORDERED: ALBUTEROL 2.5 MG/3 ML NEB SOL ONE ×2 (09:46→10:50)
[2019-09-29] MEDS ORDERED: predniSONE 20 MG TAB ONE (09:46)
[2019-09-29] MEDS ORDERED: CEFTRIAXONE/SWI 1gm 1 GM/10 ML SYR ONE (09:46)
[2019-09-29] MEDS ORDERED: NA CHLORIDE 0.9% 1,000 ML ONE (09:46)
[2019-09-29] MEDS ORDERED: ONDANSETRON 4 MG/2 ML VIAL ONE (09:46)
[2019-09-29] MEDS ORDERED: IPRATROPIUM BROM 0.5MG/2.5ML ONE (09:46)
[2019-09-29 10:02] LABS: Absolute Lymphocytes (CBC) 1.6 K/uL (0.7-4.9); Basophils % 0.5 % (0-1.3); Lymphocytes % 17.6 % (15.3-44.8); MPV 9.1 fL (7.6-11.3); RBC Red Blood Cell Count 4.31 M/uL (4.33-5.43)
[2019-09-29] MEDS ORDERED: HYDROCODONE/CHLORPHEN 5 ML/OSYR ONE (10:14)
[2019-09-29 10:27] LABS: Albumin 4.1 g/dL (3.4-5.0); Bilirubin Total 0.3 mg/dL (0.2-1.0); Potassium 3.6 mmol/L (3.5-5.1); Protein, Total 7.7 g/dL (6.4-8.2)
--- NOTE | 2019-09-29 11:00 | RAD REPORT ---
EXAM DESCRIPTION: Marisol Gipson And Félix (2 Views)09/29/2019 10:00 am CLINICAL HISTORY: Cough COMPARISON: September 20, 2019 FINDINGS: Parahilar peribronchial thickening indicated bronchitis or be chronic. The heart is normal size
--- NOTE | 2019-09-29 11:16 | ER ---
Nurse's Notes [facility] Name: Anthony Au Age: 34 yrs Sex: Male : 1985 Arrival Date: 09/29/2019 Time: 09:34 Bed 4 Private MD: Diagnosis: Dyspnea;Asthma;Tobacco abuse counseling;Tobacco use;Bronchitis, not specified as acute or chronic Presentation: 09/29 09:35 Presenting complaint: Patient states: Seen in ER yesterday for cough/ difficulty ss breathing. Pt is back today because he says difficulty breathing is worse. Transition of care: patient was not received from another setting of care. Onset of symptoms was September 28, 2019. Risk Assessment: Do you want to hurt yourself or someone else? Patient reports no desire to harm self or others. Initial Sepsis Screen: Does the patient meet any 2 criteria? RR > 20 per min. HR > 90 bpm. Does the patient have a suspected source of infection? No. Patient's initial sepsis screen is negative. Care prior to arrival: None. 09:35 Acuity: MARKY 3 ss 09:35 Method Of Arrival: Ambulatory ss Historical: - Allergies: 09:38 No Known Allergies; ss - Home Meds: 09:38 Albuterol Inhl [Active]; Prednisone Oral [Active]; ss 10:30 Latuda 80 mg Oral tab 1 tab once daily [Active]; clonazepam 2 mg Oral tab 1 tab 2 times tw2 per day [Active]; Depakote ER 500 mg Oral Tb24 2 tabs once daily [Active]; promethazine-codeine 6.25-10 mg/5 mL Oral syrp 5 mL every 6 hours [Active]; straterra [Active]; - PMHx: 09:38 Anxiety; Bipolar disorder; Depression; Asthma; ss 10:30 scalp laceration repair.; tw2 - PSHx: 09:38 None; ss - Immunization history:: Adult Immunizations up to date. - Social history:: Smoking status: Patient/guardian denies using tobacco. - Ebola Screening: : Patient denies exposure to infectious person Patient denies travel to an Ebola-affected area in the 21 days before illness onset. - Family history:: not pertinent. Screenin:29 Abuse screen: Denies threats or abuse. Nutritional screening: No deficits noted. tw2 Tuberculosis screening: No symptoms or risk factors identified. Fall Risk None identified. Assessment: 09:35 General: Appears in no apparent distress. Behavior is anxious. Pain: Denies pain. tw2 Neuro: Level of Consciousness is awake, alert, obeys commands, Oriented to person, place, time, situation. Cardiovascular: Heart tones S1 S2 Patient's skin is warm and dry. Respiratory: Reports shortness of breath at rest on exertion cough that is non-productive, persistent Airway is patent Respiratory effort is even, unlabored, Respiratory pattern is regular, symmetrical, Breath sounds with wheezes bilaterally. GI: Abdomen is flat, Bowel sounds present X 4 quads. : No signs and/or symptoms were reported regarding the genitourinary system. EENT: Reports nasal congestion nasal discharge. Derm: No signs and/or symptoms reported regarding the dermatologic system. Musculoskeletal: Range of motion: intact in all extremities. 10:29 Reassessment: No changes from previously documented assessment. Patient and/or family tw2 updated on plan of care and expected duration. Pain level reassessed. Patient is alert, oriented x 3, equal unlabored respirations, skin warm/dry/pink. 10:50 Reassessment: Patient appears in no apparent distress at this time. Patient and/or tw2 family updated on plan of care and expected duration. Pain level reassessed. Patient is alert, oriented x 3, equal unlabored respirations, skin warm/dry/pink. 11:22 Reassessment: Patient appears in no apparent distress at this time. Patient and/or tw2 family updated on plan of care and expected duration. Pain level reassessed. Patient is alert, oriented x 3, equal unlabored respirations, skin warm/dry/pink. Vital Signs: 09:35 BP 138 / 94; Pulse 113; Resp 26; Temp 98.2(O); Pulse Ox 98% on R/A; Weight 86.18 kg; ss Height 5 ft. 8 in. (172.72 cm); Pain 7/10; 10:50 BP 124 / 80; Pulse 104; Resp 20; Pulse Ox 99% on Nebulizer Mask; tw2 11:22 BP 128 / 79; Pulse 99; Resp 19; Pulse Ox 99% on R/A; tw2 09:35 Body Mass Index 28.89 (86.18 kg, 172.72 cm) ED Course: 09:34 Patient arrived in ED. irvin 09:34 River Kang MD is Attending Physician. irvin 09:34 Bed in low position. Call light in reach. quality assurance monitor body on. Pulse ox on. NIBP on. tw2 09:35 Arm band placed on right wrist. ss 09:36 Triage completed. ss 09:38 Vicky Manuel, RN is Primary Nurse. rb1 09:50 Initial lab(s) drawn, by me, sent to lab. em1 09:50 Inserted saline lock: 20 gauge in right antecubital area, using aseptic technique. em1 Blood collected. 10:00 Chest Pa And Lat (2 Views) XRAY In Process Unspecified. EDMS 10:23 Primary Nurse role handed off by Vicky Manuel, RN tw2 10:23 Aileen Gil RN is Primary Nurse. tw2 11:22 No provider procedures requiring assistance completed. IV discontinued, intact, tw2 bleeding controlled, No redness/swelling at site. Pressure dressing applied. Administered Medications: 09:49 Drug: Zofran 4 mg Route: IVP; Site: right antecubital; tw2 10:22 Follow up: Response: No adverse reaction; Nausea is decreased tw2 10:05 Drug: predniSONE 60 mg Route: PO; tw2 10:22 Follow up: Response: No adverse reaction tw2 10:05 Drug: Zithromax 500 mg Route: PO; tw2 10:22 Follow up: Response: No adverse reaction tw2 10:09 Drug: NS 0.9% 1000 ml Route: IV; Rate: 1 bolus; Site: right antecubital; tw2 11:00 Follow up: IV Status: Completed infusion; IV Intake: 1000ml tw2 10: Drug: Albuterol - atroVENT (3:1) (2.5 mg - 0.5 mg) 3 ml Route: Nebulizer; tw2 10:22 Follow up: Response: No adverse reaction tw2 10:09 Drug: Rocephin 1 grams Route: IV; Rate: per protocol; Site: right antecubital; tw2 10:14 Follow up: Response: No adverse reaction; IV Status: Completed infusion tw2 10:12 Drug: Tussionex Pennkinetic ER 5 ml Route: PO; tw2 11:00 Follow up: Response: No adverse reaction tw2 10:13 Drug: Decadron - Dexamethasone 10 mg Route: IVP; Site: right antecubital; tw2 10:22 Follow up: Response: No adverse reaction tw2 10:58 Drug: Albuterol 5 mg Route: Inhalation; tw2 Intake: 11:00 IV: 1000ml; Total: 1000ml. tw2 Outcome: 11:15 Discharge ordered by MD. bryan 11:22 Discharged to home ambulatory, with significant other. tw2 11:22 Condition: stable 11:22 Discharge instructions given to patient, significant other, Instructed on discharge instructions, follow up and referral plans. no drinking with medication, no driving heavy equipment, medication usage, Demonstrated understanding of instructions, follow-up care, medications, Prescriptions given X 4. 11:23 Patient left the ED. tw2 Signatures: Dispatcher [employer] EDMS River Kang MD MD cha Martinez, Johnson em1 Chrissy Caballero RN RN ss Vicky Manuel, RN RN rb1 Aileen Gil RN RN tw2
--- NOTE | 2019-09-29 11:17 | EDPHYS ---
Physician Documentation [facility] Name: Anthony Au Age: 34 yrs Sex: Male : 1985 Arrival Date: 09/29/2019 Time: 09:34 Bed 4 Private MD: ED Physician River Kang HPI: 09/29 09:40 This 34 yrs old Male presents to ER via Ambulatory with complaints of dyspnea. irvin 09:40 The patient has shortness of breath at rest, with light activity. Onset: The irvin symptoms/episode began/occurred 3 day(s) ago. Duration: The symptoms are chronic. The patient's shortness of breath has no apparent modifying factors. The patient or guardian reports cough, described as mild, difficulty breathing, flu symptoms, arthralgias, myalgias. Modifying factors: The symptoms are alleviated by nothing. the symptoms are aggravated by activity, cold environment. Severity of symptoms: At their worst the symptoms were moderate in the emergency department the symptoms are unchanged. Historical: - Allergies: 09:38 No Known Allergies; ss - Home Meds: 09:38 Albuterol Inhl [Active]; Prednisone Oral [Active]; ss 10:30 Latuda 80 mg Oral tab 1 tab once daily [Active]; clonazepam 2 mg Oral tab 1 tab 2 times tw2 per day [Active]; Depakote ER 500 mg Oral Tb24 2 tabs once daily [Active]; promethazine-codeine 6.25-10 mg/5 mL Oral syrp 5 mL every 6 hours [Active]; straterra [Active]; - PMHx: 09:38 Anxiety; Bipolar disorder; Depression; Asthma; ss 10:30 scalp laceration repair.; tw2 - PSHx: 09:38 None; ss - Immunization history:: Adult Immunizations up to date. - Social history:: Smoking status: Patient/guardian denies using tobacco. - Ebola Screening: : Patient denies exposure to infectious person Patient denies travel to an Ebola-affected area in the 21 days before illness onset. - Family history:: not pertinent. ROS: 09:40 Constitutional: Negative for fever, chills, and weight loss, Eyes: Negative for injury, irvin pain, redness, and discharge, ENT: Negative for injury, pain, and discharge, Neck: Negative for injury, pain, and swelling, Cardiovascular: Negative for chest pain, palpitations, and edema, Abdomen/GI: Negative for abdominal pain, nausea, vomiting, diarrhea, and constipation, Back: Negative for injury and pain, : Negative for injury, bleeding, discharge, and swelling, MS/Extremity: Negative for injury and deformity, Skin: Negative for injury, rash, and discoloration, Neuro: Negative for headache, weakness, numbness, tingling, and seizure, Psych: Negative for depression, anxiety, suicide ideation, homicidal ideation, and hallucinations, Allergy/Immunology: Negative for hives, rash, and allergies, Endocrine: Negative for neck swelling, polydipsia, polyuria, polyphagia, and marked weight changes, Hematologic/Lymphatic: Negative for swollen nodes, abnormal bleeding, and unusual bruising. 09:40 Respiratory: Positive for cough, shortness of breath, wheezing, inspiratory, expiratory. Exam: 09:40 Constitutional: This is a well developed, well nourished patient who is awake, alert, irvin and in no acute distress. Head/Face: Normocephalic, atraumatic. Eyes: Pupils equal round and reactive to light, extra-ocular motions intact. Lids and lashes normal. Conjunctiva and sclera are non-icteric and not injected. Cornea within normal limits. Periorbital areas with no swelling, redness, or edema. ENT: Nares patent. No nasal discharge, no septal abnormalities noted. Tympanic membranes are normal and external auditory canals are clear. Oropharynx with no redness, swelling, or masses, exudates, or evidence of obstruction, uvula midline. Mucous membranes moist. Neck: Trachea midline, no thyromegaly or masses palpated, and no cervical lymphadenopathy. Supple, full range of motion without nuchal rigidity, or vertebral point tenderness. No Meningismus. Chest/axilla: Normal chest wall appearance and motion. Nontender with no deformity. No lesions are appreciated. Abdomen/GI: Soft, non-tender, with normal bowel sounds. No distension or tympany. No guarding or rebound. No evidence of tenderness throughout. Back: No spinal tenderness. No costovertebral tenderness. Full range of motion. Skin: Warm, dry with normal turgor. Normal color with no rashes, no lesions, and no evidence of cellulitis. MS/ Extremity: Pulses equal, no cyanosis. Neurovascular intact. Full, normal range of motion. Neuro: Awake and alert, GCS 15, oriented to person, place, time, and situation. Cranial nerves II-XII grossly intact. Motor strength 5/5 in all extremities. Sensory grossly intact. Cerebellar exam normal. Normal gait. Psych: Awake, alert, with orientation to person, place and time. Behavior, mood, and affect are within normal limits. 09:40 Cardiovascular: Rate: tachycardic, Rhythm: regular, Pulses: Pulses are 4+ in bilateral radial, brachial, femoral, popliteal, posterior tibial and and dorsalis pedis arteries.. Heart sounds: normal, Edema: is not appreciated, JVD: is not appreciated. Vital Signs: 09:35 BP 138 / 94; Pulse 113; Resp 26; Temp 98.2(O); Pulse Ox 98% on R/A; Weight 86.18 kg; ss Height 5 ft. 8 in. (172.72 cm); Pain 7/10; 10:50 BP 124 / 80; Pulse 104; Resp 20; Pulse Ox 99% on Nebulizer Mask; tw2 11:22 BP 128 / 79; Pulse 99; Resp 19; Pulse Ox 99% on R/A; tw2 09:35 Body Mass Index 28.89 (86.18 kg, 172.72 cm) ss MDM: 09:34 Patient medically screened. [facility] 09:40 Data reviewed: vital signs, nurses notes, lab test result(s), radiologic studies, plain irvin films. 09/29 09:39 Order name: CBC with Diff; Complete Time: 10:10 [facility] 09/29 09:39 Order name: Comprehensive Metabolic Panel; Complete Time: 10:38 [facility] 09/29 09:39 Order name: Chest Pa And Lat (2 Views) XRAY; Complete Time: 11:15 [facility] 09/29 11:21 Order name: Urine Dipstick--Ancillary (enter results) eb Administered Medications: 09:49 Drug: Zofran 4 mg Route: IVP; Site: right antecubital; tw2 10:22 Follow up: Response: No adverse reaction; Nausea is decreased tw2 10:05 Drug: predniSONE 60 mg Route: PO; tw2 10:22 Follow up: Response: No adverse reaction tw2 10:05 Drug: Zithromax 500 mg Route: PO; tw2 10:22 Follow up: Response: No adverse reaction tw2 10: Drug: NS 0.9% 1000 ml Route: IV; Rate: 1 bolus; Site: right antecubital; tw2 11:00 Follow up: IV Status: Completed infusion; IV Intake: 1000ml 2 10: Drug: Albuterol - atroVENT (3:1) (2.5 mg - 0.5 mg) 3 ml Route: Nebulizer; tw2 10:22 Follow up: Response: No adverse reaction 2 10: Drug: Rocephin 1 grams Route: IV; Rate: per protocol; Site: right antecubital; tw2 10:14 Follow up: Response: No adverse reaction; IV Status: Completed infusion 2 10:12 Drug: Tussionex Pennkinetic ER 5 ml Route: PO; tw2 11:00 Follow up: Response: No adverse reaction 2 10:13 Drug: Decadron - Dexamethasone 10 mg Route: IVP; Site: right antecubital; tw2 10:22 Follow up: Response: No adverse reaction 2 10:58 Drug: Albuterol 5 mg Route: Inhalation; Disposition: 09/29/19 11:15 Discharged to Home. Impression: Dyspnea, Asthma, Tobacco abuse counseling, Tobacco use, Bronchitis, not specified as acute or chronic. - Condition is Stable. - Discharge Instructions: Asthma, Adult, Steps to Quit Smoking, Smoking Hazards, Asthma, Adult, [id number]. - Prescriptions for Albuterol Sulfate 2.5 mg /3 mL (0.083 %) Inhalation Solution for Nebulization - inhale 1 unit by NEBULIZATION route every 8 hours As needed; 1 box. Zithromax Z- Ismael 250 mg Oral Tablet - take 1 tablet by ORAL route as directed for 5 days Day 1 - take two (2) tablets one time. Day 2, 3, 4 , 5 take one (1) tablet once daily.; 6 tablet. Prednisone 20 mg Oral Tablet - take 2 tablet by ORAL route once daily for 5 days; 10 tablet. Albuterol Sulfate 90 mcg/actuation - inhale 1-2 puff by INHALATION route every 4-6 hours; 1 Inhaler. - Medication Reconciliation Form, Thank You Letter, Antibiotic Education, Prescription Opioid Use, Work release form form. - Follow up: Private Physician; When: 2 - 3 days; Reason: Recheck today's complaints, Continuance of care, Re-evaluation by your physician. - Problem is new. - Symptoms have improved. Signatures: Dispatcher [employer] EDRiver Marte MD MD cha Smirch, Shelby, RN RN Aileen Ramesh RN RN tw2 Corrections: (The following items were deleted from the chart) 11:23 11:15 09/29/2019 11:15 Discharged to Home. Impression: Dyspnea; Asthma; Tobacco abuse tw2 counseling; Tobacco use; Bronchitis, not specified as acute or chronic. Condition is Stable. Discharge Instructions: Asthma, Adult, Steps to Quit Smoking, Smoking Hazards, Asthma, Adult, [id number]. Prescriptions for Albuterol Sulfate 2.5 mg /3 mL (0.083 %) Inhalation Solution for Nebulization - inhale 1 unit by NEBULIZATION route every 8 hours As needed; 1 box, Zithromax Z-Ismael 250 mg Oral Tablet - take 1 tablet by ORAL route as directed for 5 days Day 1 - take two (2) tablets one time. Day 2, 3, 4 , 5 take one (1) tablet once daily.; 6 tablet, Prednisone 20 mg Oral Tablet - take 2 tablet by ORAL route once daily for 5 days; 10 tablet, Albuterol Sulfate 90 mcg/actuation - inhale 1-2 puff by INHALATION route every 4-6 hours; 1 Inhaler. and Forms are Medication Reconciliation Form, Thank You Letter, Antibiotic Education, Prescription Opioid Use. Follow up: Private Physician; When: 2 - 3 days; Reason: Recheck today's complaints, Continuance of care, Re-evaluation by your physician. Problem is new. Symptoms have improved. irvin
[2019-09-29 11:28] VITALS: TEMP 98.2
[2019-09-29 11:29] VITALS: O2SAT 99
[2019-09-29 11:30] VITALS: BP 128/79
[2019-09-29 11:35] LABS: Urine Blood NEGATIVE (NEG); Urine Glucose NEGATIVE (NEG); Urine Protein NEGATIVE (NEG)
== END 2019-09-29 11:23 | disposition home or self-care (01) ==
LOC: ER 09:30
DX: J40 Bronchitis, not specified as acute or chronic (principal); F31.9 Bipolar disorder, unspecified; Z71.6 Tobacco abuse counseling; Z72.0 Tobacco use
CPT/HCPCS: 36415; 71046; 80053; 81003; 85025; 94640; 96361; 96374; 96375; 99285; J0696; J1100; J2405; J7030; J7512

== ENCOUNTER 2019-10-20 19:01 | Emergency (ER) | payer SELFPAY ==
[2019-10-20] MEDS ORDERED: NA CHLORIDE 0.9% 1,000 ML ONE (19:41)
[2019-10-20 19:45] LABS: Absolute Lymphocytes (CBC) 2.2 K/uL (0.7-4.9); Basophils % 0.6 % (0-1.3); Hematocrit 42.7 % (39.6-49.0); MPV 8.9 fL (7.6-11.3); RBC Red Blood Cell Count 4.55 M/uL (4.33-5.43)
[2019-10-20 19:51] LABS: Urine Blood NEGATIVE (NEG); Urine Glucose NEGATIVE (NEG); Urine Protein NEGATIVE (NEG); Urine pH 8.5 (5.0-7.0)
[2019-10-20 20:00] LABS: Barbiturates NEGATIVE (NEGATIVE); Benzodiazepines POSITIVE (NEGATIVE); Cocaine POSITIVE (NEGATIVE); METHAMPHETAM NEGATIVE (NEGATIVE); Methadone NEGATIVE (NEGATIVE); Opiates NEGATIVE (NEGATIVE); Phencyclidine NEGATIVE (NEGATIVE); THC Cannibis POSITIVE (NEGATIVE)
--- NOTE | 2019-10-20 20:07 | RAD REPORT ---
EXAM DESCRIPTION: CT - Head Brain Wo Cont - 10/20/2019 7:49 pm CLINICAL HISTORY: Fall, head injury, headache COMPARISON: None. TECHNIQUE: Axial 5 mm thick images of the head were obtained without IV contrast. All CT scans are performed using dose optimization technique as appropriate and may include automated exposure control or mA/KV adjustment according to patient size. FINDINGS: No intracranial hemorrhage, mass, edema or shift of mid-line structures. No acute infarcti on changes seen. No abnormal extra-axial fluid collections. Ventricles are normal. Small right fronta l scalp hematoma. Mastoid air cells and visualized portions of the paranasal sinuses are clear. No acute bony findings. IMPRESSION: Negative non-contrast CT head examination for acute intracranial finding.
[2019-10-20 20:09] LABS: ALT/SGPT 51 U/L (12-78); AST/SGOT 30 U/L (15-37); Alkaline Phosphatase 58 U/L (45-117); BUN Blood Urea Nitrogen 6 mg/dL (7-18); Bicarbonate 28 mmol/L (21-32); Bilirubin Direct 0.2 mg/dL (0-0.2); Bilirubin Total 0.5 mg/dL (0.2-1.0); Glucose Level 93 mg/dL (74-106); Protein, Total 7.5 g/dL (6.4-8.2); Sodium Level 145 mmol/L (136-145)
--- NOTE | 2019-10-20 21:01 | EDPHYS ---
Physician Documentation [facility] Name: Anthony Au Age: 34 yrs Sex: Male : 1985 Arrival Date: 10/20/2019 Time: 19:02 Bed 16 Private MD: ED Physician Ming Elena HPI: 10/20 19:35 This 34 yrs old Male presents to ER via Ambulatory with complaints of XANAX pm1 WITHDRAWL. 19:35 Patient comes to the ER with request for a prescription of clonazepam. Reports that he pm1 was accidentally given a prescription of Xanax by his PCP instead of clonazepam. He has been taking Xanax for the past five days. Patient also reports that he has a headache and a contusion to his right forehead that he does not recall the time and circumstances of getting it. Historical: - Allergies: 19:16 No Known Allergies; dm5 - Home Meds: 19:16 Depakote ER 500 mg Oral Tb24 2 tabs once daily [Active]; Latuda 80 mg Oral tab 1 tab dm5 once daily [Active]; - PMHx: 19:16 Anxiety; Asthma; Bipolar disorder; Depression; scalp laceration repair.; dm5 - PSHx: 19:16 None; dm5 - Immunization history:: Adult Immunizations not up to date. - Social history:: Smoking status: Patient reports the use of cigarette tobacco products. - Ebola Screening: : Patient negative for fever greater than or equal to 101.5 degrees Fahrenheit, and additional compatible Ebola Virus Disease symptoms Patient denies exposure to infectious person. ROS: 19:35 Constitutional: Negative for fever, chills, and weight loss, Eyes: Negative for injury, pm1 pain, redness, and discharge, ENT: Negative for injury, pain, and discharge, Neck: Negative for injury, pain, and swelling, Cardiovascular: Negative for chest pain, palpitations, and edema, Respiratory: Negative for shortness of breath, cough, wheezing, and pleuritic chest pain, Abdomen/GI: Negative for abdominal pain, nausea, vomiting, diarrhea, and constipation, Back: Negative for injury and pain, MS/Extremity: Negative for injury and deformity, Skin: Negative for injury, rash, and discoloration. 19:35 Neuro: Positive for headache, Negative for numbness, tingling, weakness. Exam: 19:35 Constitutional: This is a well developed, well nourished patient who is awake, alert, pm1 and in no acute distress. 19:35 Eyes: Pupils equal round and reactive to light, extra-ocular motions intact. Lids and lashes normal. Conjunctiva and sclera are non-icteric and not injected. Cornea within normal limits. Periorbital areas with no swelling, redness, or edema. ENT: Nares patent. No nasal discharge, no septal abnormalities noted. Tympanic membranes are normal and external auditory canals are clear. Oropharynx with no redness, swelling, or masses, exudates, or evidence of obstruction, uvula midline. Mucous membranes moist. Neck: Trachea midline, no thyromegaly or masses palpated, and no cervical lymphadenopathy. Supple, full range of motion without nuchal rigidity, or vertebral point tenderness. No Meningismus. Chest/axilla: Normal chest wall appearance and motion. Nontender with no deformity. No lesions are appreciated. Cardiovascular: Regular rate and rhythm with a normal S1 and S2. No gallops, murmurs, or rubs. Normal PMI, no JVD. No pulse deficits. Respiratory: Lungs have equal breath sounds bilaterally, clear to auscultation and percussion. No rales, rhonchi or wheezes noted. No increased work of breathing, no retractions or nasal flaring. Abdomen/GI: Soft, non-tender, with normal bowel sounds. No distension or tympany. No guarding or rebound. No evidence of tenderness throughout. Back: No spinal tenderness. No costovertebral tenderness. Full range of motion. Skin: Warm, dry with normal turgor. Normal color with no rashes, no lesions, and no evidence of cellulitis. MS/ Extremity: Pulses equal, no cyanosis. Neurovascular intact. Full, normal range of motion. 19:35 Head/face: Noted is no obvious of injury or deformity except contusion, that is superficial, of the forehead. 19:35 Neuro: Orientation: is normal, Mentation: is normal, Motor: is normal, moves all fours. Vital Signs: 19:16 BP 138 / 96; Pulse 89; Resp 18; Temp 97.6(TE); Pulse Ox 100% on R/A; Weight 90.72 kg; dm5 Height 5 ft. 8 in. (172.72 cm); Pain 5/10; 20:30 BP 129 / 83; Pulse 69; Resp 18; Pulse Ox 97% ; wh 21:30 BP 119 / 86; Pulse 55; Resp 18; Pulse Ox 97% ; wh 19:16 Body Mass Index 30.41 (90.72 kg, 172.72 cm) dm5 MDM: 19:14 Patient medically screened. pm1 20:59 Data reviewed: vital signs. Data interpreted: Pulse oximetry: on room air is 100 %. pm1 Interpretation: normal. Counseling: I had a detailed discussion with the patient and/or guardian regarding: the historical points, exam findings, and any diagnostic results supporting the discharge/admit diagnosis, lab results, radiology results, the need for outpatient follow up, to return to the emergency department if symptoms worsen or persist or if there are any questions or concerns that arise at home. 21:36 ED course: Instructed patient to stop using marijuana and cocaine. Showed him the pm1 [place] reports that he did not get a prescription for Xanax that he has been using. Explained to him that I cannot give him a clonazepam prescription because he is abusing it. Showed him the [employer] report that he currently has three refills availabe from Dr. Smith. Patient was excited to know that he has refills and wants to go home. 10/20 19:20 Order name: Acetaminophen; Complete Time: 20:58 pm1 10/20 19:20 Order name: Basic Metabolic Panel; Complete Time: 20:58 pm1 10/20 19:20 Order name: CBC with Diff; Complete Time: 19:58 pm1 10/20 19:20 Order name: ETOH Level; Complete Time: 20:58 pm1 10/20 19:20 Order name: Hepatic Function; Complete Time: 20:58 pm1 10/20 19:20 Order name: PT-INR; Complete Time: 19:58 pm1 10/20 19:20 Order name: Ptt, Activated; Complete Time: 19:58 pm1 10/20 19:20 Order name: Salicylate; Complete Time: 20:58 pm1 10/20 19:20 Order name: Urine Drug Screen; Complete Time: 20:58 pm1 10/20 19:20 Order name: EKG; Complete Time: 19:21 pm1 10/20 19:20 Order name: CT Head Brain wo Cont; Complete Time: 20:58 pm1 10/20 19:45 Order name: Urine Dipstick--Ancillary (enter results); Complete Time: 19:58 mt 10/20 19:20 Order name: EKG - Nurse/Tech; Complete Time: 20:25 pm1 10/20 19:20 Order name: IV Saline Lock; Complete Time: 19:40 pm1 10/20 19:20 Order name: Labs collected and sent; Complete Time: 19:40 pm1 10/20 19:20 Order name: Urine Dipstick-Ancillary (obtain specimen); Complete Time: 19:41 pm1 Administered Medications: 19:45 Drug: NS 0.9% 1000 ml Route: IV; Rate: 1000 ml; Site: left antecubital; 21:38 Follow up: Response: No adverse reaction; IV Status: Completed infusion 21:06 Drug: Tylenol 650 mg Route: PO; 21:37 Follow up: Response: No adverse reaction Disposition: 10/21 15:52 Co-signature as Attending Physician, Ming Elena MD. ma2 Disposition: 10/20/19 21:01 Discharged to Home. Impression: Superficial injury of head, Cocaine abuse, Cannabis abuse, Benzodiazepine abuse. - Condition is Stable. - Discharge Instructions: Finding Treatment for Addiction, Stimulant Use Disorder-Cocaine, Head Injury, Adult, Cannabis Use Disorder. - Medication Reconciliation Form, Thank You Letter, Antibiotic Education, Prescription Opioid Use form. - Follow up: Emergency Department; When: As needed; Reason: Worsening of condition. Follow up: Private Physician; When: 2 - 3 days; Reason: Recheck today's complaints, Continuance of care, Re-evaluation by your physician. - Problem is new. - Symptoms have improved. Signatures: Dispatcher [employer] Estefany Sherman RN RN dm5 Allan Blancas, MARINE ELECTRICIAN HELPER MARINE ELECTRICIAN HELPER pm1 Stef Hilliard Ming Elena MD MD ma2 Corrections: (The following items were deleted from the chart) 10/20 21:05 21:01 10/20/2019 21:01 Discharged to Home. Impression: Superficial injury of head; pm1 Cocaine abuse; Cannabis abuse. Condition is Stable. Forms are Medication Reconciliation Form, Thank You Letter, Antibiotic Education, Prescription Opioid Use. Follow up: Emergency Department; When: As needed; Reason: Worsening of condition. Follow up: Private Physician; When: 2 - 3 days; Reason: Recheck today's complaints, Continuance of care, Re-evaluation by your physician. Problem is new. Symptoms have improved. pm1 21:38 21:05 10/20/2019 21:01 Discharged to Home. Impression: Superficial injury of head; wh Cocaine abuse; Cannabis abuse; Benzodiazepine abuse. Condition is Stable. Discharge Instructions: Stimulant Use Disorder-Cocaine, Head Injury, Adult, Cannabis Use Disorder. Forms are Medication Reconciliation Form, Thank You Letter, Antibiotic Education, Prescription Opioid Use. Follow up: Emergency Department; When: As needed; Reason: Worsening of condition. Follow up: Private Physician; When: 2 - 3 days; Reason: Recheck today's complaints, Continuance of care, Re-evaluation by your physician. Problem is new. Symptoms have improved. pm1
--- NOTE | 2019-10-20 21:01 | ER ---
Nurse's Notes [facility] [place] Name: Anthony Au Age: 34 yrs Sex: Male : 1985 Arrival Date: 10/20/2019 Time: 19:02 Bed 16 Private MD: Diagnosis: Superficial injury of head;Cocaine abuse;Cannabis abuse;Benzodiazepine abuse Presentation: 10/20 19:12 Presenting complaint: Patient states: normally takes Clonopin but "was taking xanax due dm5 to Dr error" Took 2 mg Xanax three times a day for 1 week and then hasn't had any for 5 days. Pt has been taking his other regular meds, Prozac, Latuda, Depakote as prescribed. 19:12 Method Of Arrival: Ambulatory dm5 19:16 Note pt also reports "bump" on head that he is unsure when it happened. Localized dm5 swelling noted to be light blue. Pt rates pain at 5/10. 19:16 Acuity: MARKY 4 dm5 19:30 Transition of care: patient was not received from another setting of care. Onset of wh symptoms was October 20, 2019. Risk Assessment: Do you want to hurt yourself or someone else? Patient reports no desire to harm self or others. Initial Sepsis Screen: Does the patient meet any 2 criteria? No. Patient's initial sepsis screen is negative. Does the patient have a suspected source of infection? No. Patient's initial sepsis screen is negative. Care prior to arrival: None. Historical: - Allergies: 19:16 No Known Allergies; dm5 - Home Meds: 19:16 Depakote ER 500 mg Oral Tb24 2 tabs once daily [Active]; Latuda 80 mg Oral tab 1 tab dm5 once daily [Active]; - PMHx: 19:16 Anxiety; Asthma; Bipolar disorder; Depression; scalp laceration repair.; dm5 - PSHx: 19:16 None; dm5 - Immunization history:: Adult Immunizations not up to date. - Social history:: Smoking status: Patient reports the use of cigarette tobacco products. - Ebola Screening: : Patient negative for fever greater than or equal to 101.5 degrees Fahrenheit, and additional compatible Ebola Virus Disease symptoms Patient denies exposure to infectious person. Screenin:30 Abuse screen: Denies threats or abuse. Denies injuries from another. Nutritional wh screening: No deficits noted. Tuberculosis screening: No symptoms or risk factors identified. Fall Risk None identified. Assessment: 19:30 General: Appears in no apparent distress. Behavior is calm, cooperative, appropriate wh for age. Pain: Denies pain. Neuro: Level of Consciousness is awake, alert, obeys commands, Oriented to person, place, time, situation, Appropriate for age. Cardiovascular: Heart tones S1 S2. Respiratory: Airway is patent Respiratory effort is even, unlabored, Respiratory pattern is regular, symmetrical, Breath sounds are clear bilaterally. GI: Abdomen is flat, non-distended, Abd is soft and non tender X 4 quads. : No signs and/or symptoms were reported regarding the genitourinary system. EENT: No signs and/or symptoms were reported regarding the EENT system. Derm: Skin is intact, is healthy with good turgor, Skin is pink, warm \\T\\ dry. normal. Musculoskeletal: Circulation, motion, and sensation intact. 19:42 Reassessment: pt to CT scan accompanied by renal dialysis technician. bb 20:30 Reassessment: Patient appears in no apparent distress at this time. No changes from previously documented assessment. Patient and/or family updated on plan of care and expected duration. Pain level reassessed. Patient is alert, oriented x 3, equal unlabored respirations, skin warm/dry/pink. 21:30 Reassessment: Patient appears in no apparent distress at this time. No changes from previously documented assessment. Patient and/or family updated on plan of care and expected duration. Pain level reassessed. Patient is alert, oriented x 3, equal unlabored respirations, skin warm/dry/pink. Vital Signs: 19:16 BP 138 / 96; Pulse 89; Resp 18; Temp 97.6(TE); Pulse Ox 100% on R/A; Weight 90.72 kg; dm5 Height 5 ft. 8 in. (172.72 cm); Pain 5/10; 20:30 BP 129 / 83; Pulse 69; Resp 18; Pulse Ox 97% ; wh 21:30 BP 119 / 86; Pulse 55; Resp 18; Pulse Ox 97% ; wh 19:16 Body Mass Index 30.41 (90.72 kg, 172.72 cm) dm5 ED Course: 19:02 Patient arrived in ED. cl3 19:14 Allan Blancas, DOROTHY is PHCP. pm1 19:14 Ming Elena MD is Attending Physician. pm1 19:16 Arm band placed on right wrist. Patient placed in an exam room. dm5 19:17 Triage completed. dm5 19:29 Stef Hilliard is Primary Nurse. 19:30 Initial lab(s) drawn, by ct, sent to lab. Inserted saline lock: 20 gauge in left bb antecubital area, using aseptic technique. Blood collected. 19:40 Placed in gown. Bed in low position. Call light in reach. Side rails up X 1. Cardiac bb monitor on. Pulse ox on. NIBP on. 19:50 CT completed. Patient tolerated procedure well. Patient moved back from CT. 19:50 CT Head Brain wo Cont In Process Unspecified. EDMS 21:30 No provider procedures requiring assistance completed. IV discontinued, intact, wh bleeding controlled, No redness/swelling at site. Administered Medications: 19:45 Drug: NS 0.9% 1000 ml Route: IV; Rate: 1000 ml; Site: left antecubital; 21:38 Follow up: Response: No adverse reaction; IV Status: Completed infusion 21:06 Drug: Tylenol 650 mg Route: PO; 21:37 Follow up: Response: No adverse reaction Outcome: 21:01 Discharge ordered by . pm1 21:36 Discharged to home ambulatory. 21:36 Condition: stable 21:36 Discharge instructions given to patient, Instructed on discharge instructions, follow up and referral plans. POC Demonstrated understanding of instructions, follow-up care, POC 21:38 Patient left the ED. Signatures: Dispatcher [employer] EDMS Estefany Chacon, RN RN dm5 Merary Darnell Sheyla Mcleod RN RN bb Marinas, Patrick, DOROTHY MOTION PICTURE CAMERA LENS TECHNICIAN pm1 Stef Hilliard Theron Donahue cl3
[2019-10-20] MEDS ORDERED: ACETAMINOPHEN 325 MG TABLET ONE (21:04)
--- NOTE | 2019-10-21 08:47 | EKG ---
Test Date: 2019-10-20 Test Time: 20:21:28 Java Application Engineer: WARREN MEASUREMENT RESULTS: Intervals: Rate: 68 IL: 132 QRSD: 80 QT: 384 QTc: 408 [place]: P: 54 IL: 132 QRS: 85 T: 84 INTERPRETIVE STATEMENTS: Normal sinus rhythm with sinus arrhythmia Normal ECG Compared to ECG 11/15/2018 21:33:06 No significant changes Electronically Signed On 10-21-19 08:46:23 MEDICAL FILE CLERK by Errol Gallegos
== END 2019-10-20 21:38 | disposition home or self-care (01) ==
LOC: ER 19:01
DX: S00.90XA Unspecified superficial injury of unspecified part of head, initial encounter (principal); X58.XXXA Exposure to other specified factors, initial encounter; F14.10 Cocaine abuse, uncomplicated; F12.10 Cannabis abuse, uncomplicated; F13.10 Sedative, hypnotic or anxiolytic abuse, uncomplicated; F41.8 Other specified anxiety disorders; F31.9 Bipolar disorder, unspecified; F17.210 Nicotine dependence, cigarettes, uncomplicated
CPT/HCPCS: 36415; 70450; 80048; 80076; 80307; 80320; 80329; 81003; 85025; 85610; 85730; 93005; 96360; 96361; 99285; J7030

== ENCOUNTER 2020-03-03 06:37 | Emergency (ER) | payer SELFPAY ==
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
[2020-03-03 08:16] VITALS: BP 151/101; TEMP 98.3; O2SAT 96
== END 2020-03-03 08:10 | disposition home or self-care (01) ==
LOC: ER 06:37
DX: M54.5 Low back pain (principal); F41.8 Other specified anxiety disorders; F17.210 Nicotine dependence, cigarettes, uncomplicated
CPT/HCPCS: 99282

== ENCOUNTER 2020-03-06 17:11 | Emergency (ER) | payer SELFPAY ==
--- OUTSIDE RECORDS SUMMARY | 2020-03-06 17:13 | XMS REPORT | Continuity of Care Document ---
:1985 Author Organization [facility] t Address [address] [place] [address] Dr. Lopez [address] [place] [id number] Care Team Providers Name Role Phone Unavailable Unavailable Unavailable Problems This patient has no known problems. Allergies, Adverse Reactions, Alerts This patient has no known allergies or adverse reactions. Medications This patient has no known medications. Procedures This patient has no known procedures. Results This patient has no known results.
--- NOTE | 2020-03-06 19:12 | ER ---
Nurse's Notes [facility] [place] Name: Anthony Au Age: 34 yrs Sex: Male : 1985 Arrival Date: 03/06/2020 Time: 17:14 Bed Waiting Private MD: Diagnosis: Presentation: 03/06 17:19 Chief complaint: Patient states: Seizures x 5 today. stole clonopin, very stressed ll1 lately. States he was here 2 weeks ago for the same thing. Coronavirus screen:. Ebola Screen: Patient denies travel to an Ebola-affected area in the 21 days before illness onset. Initial Sepsis Screen: Does the patient meet any 2 criteria? HR > 90 bpm. No. Patient's initial sepsis screen is negative. Risk Assessment: Do you want to hurt yourself or someone else? Patient reports no desire to harm self or others. Onset of symptoms was February 24, 2020. 17:19 Method Of Arrival: Ambulatory ll1 17:19 Acuity: MARKY 3 ll1 Historical: - Allergies: 17:22 No Known Allergies; ll1 - PMHx: 17:22 detox seizures; Anxiety; Asthma; Bipolar disorder; Depression; scalp laceration repair.;ll1 - PSHx: 17:22 None; ll1 - Immunization history:: Flu vaccine is not up to date. - Social history:: Smoking status: Patient reports the use of cigarette tobacco products, smokes one pack cigarettes per day. Patient uses alcohol, only on a social basis. street drugs, speed. Vital Signs: 17:19 BP 149 / 107; Pulse 112; Resp 18; Temp 98.1; Pulse Ox 99% ; Pain 10/10; ll1 ED Course: 17:14 Patient arrived in ED. fj1 17:22 Triage completed. ll1 17:23 Arm band placed on. ll1 19:05 Kashif Montes, RN is Primary Nurse. nikita Administered Medications: No medications were administered Outcome: 19:11 Patient left the ED. ll1 Signatures: Kashif Montes RN Reji Saini [facility] Hong Donahue RN RN ll1 Corrections: (The following items were deleted from the chart) 18:59 17:19 Chief complaint: Patient states: Seizures x 5 today. stole clonopin, very ll1 stressed lately. ll1 18:59 17:19 Coronavirus screen: Proceed with normal triage. Patient denies a cough. Patient ll1 denies shortness of breath or difficulty breathing. Patient denies measured and/or subjective temperature greater than 100.4F prior to today's visit. Patient denies travel on a cruise ship or to a country the [facility] currently lists as an affected area. Patient denies contact with known and/or suspected case of COVID-19. ll1
[2020-03-06 19:18] VITALS: BP 149/107; TEMP 98.1; O2SAT 99
== END 2020-03-06 19:11 | disposition left against medical advice (07) ==
LOC: ER 17:11
DX: R56.9 Unspecified convulsions (principal); Z53.21 Procedure and treatment not carried out due to patient leaving prior to being seen by health care provider
CPT/HCPCS: 99281

== ENCOUNTER 2020-03-29 07:38 | Emergency (ER) | payer SELFPAY ==
--- OUTSIDE RECORDS SUMMARY | 2020-03-29 07:40 | XMS REPORT | Continuity of Care Document ---
:1985 Author Organization [facility] t Address [address] [place] [address] Dr. Lopez [address] [place] [id number] Care Team Providers Name Role Phone Unavailable Unavailable Unavailable Problems This patient has no known problems. Allergies, Adverse Reactions, Alerts This patient has no known allergies or adverse reactions. Medications This patient has no known medications. Procedures This patient has no known procedures. Results This patient has no known results.
[2020-03-29] MEDS ORDERED: DIAZEPAM 5 MG TABLET ONE (08:16)
[2020-03-29 08:29] LABS: Absolute Lymphocytes (CBC) 1.7 K/uL (0.7-4.9); Basophils % 0.4 % (0-1.3); Hematocrit 44.3 % (39.6-49.0); MPV 8.6 fL (7.6-11.3); RBC Red Blood Cell Count 4.82 M/uL (4.33-5.43)
[2020-03-29 08:40] LABS: BUN Blood Urea Nitrogen 14 mg/dL (7-18); Bicarbonate 26 mmol/L (21-32); Glucose Level 91 mg/dL (74-106); Potassium 4.1 mmol/L (3.5-5.1); Sodium Level 141 mmol/L (136-145); Troponin (Emerg Dept Use Only) < 0.02 ng/mL (0.0-0.045)
--- NOTE | 2020-03-29 08:45 | ER ---
Nurse's Notes [facility] Name: Anthony Au Age: 35 yrs Sex: Male : 1985 Arrival Date: 03/29/2020 Time: 07:41 Bed 8 Private MD: Diagnosis: Palpitations;Chest pain, unspecified Presentation: 03/29 07:40 Chief complaint: EMS states: Pt. woke up and felt like he had a possible seizure. HR rb1 118, and the rest of his vital signs were stable. Has a history of Seizures, Bipolar, and Anxiety. NKDA. [place] tactical deception plans officer accompanied the pt. Coronavirus screen: Proceed with normal triage. Ebola Screen: Patient negative for fever greater than or equal to 101.5 degrees Fahrenheit, and additional compatible Ebola Virus Disease symptoms. Initial Sepsis Screen: Does the patient meet any 2 criteria? No. Patient's initial sepsis screen is negative. Does the patient have a suspected source of infection? No. Patient's initial sepsis screen is negative. Risk Assessment: Do you want to hurt yourself or someone else? Patient reports no desire to harm self or others. Onset of symptoms was March 29, 2020. 07:40 Method Of Arrival: EMS: [facility] rb1 07:40 Acuity: MARKY 3 rb1 Triage Assessment: 07:40 General: Appears in no apparent distress. comfortable, Behavior is cooperative, rb1 anxious. Neuro: Level of Consciousness is awake, alert, obeys commands, Oriented to person, place, time, situation. Cardiovascular: Capillary refill < 3 seconds. Respiratory: Airway is patent Respiratory effort is even, unlabored, Respiratory pattern is regular, symmetrical. GI: No signs and/or symptoms were reported involving the gastrointestinal system. : No signs and/or symptoms were reported regarding the genitourinary system. Derm: Skin is pink, warm \T\ dry. Musculoskeletal: Range of motion: intact in all extremities. 07:40 Pain: Denies pain. rb1 Historical: - Allergies: 07:40 No Known Allergies; rb1 - Home Meds: 07:40 clonazepam 2 mg Oral tab 1 tab 2 times per day [Active]; Depakote ER 500 mg Oral Tb24 2 rb1 tabs once daily [Active]; Latuda 80 mg Oral tab 1 tab once daily [Active]; Prozac Oral [Active]; Paxil Oral [Active]; - PMHx: 07:40 Anxiety; Asthma; Bipolar disorder; Depression; detox seizures; scalp laceration repair.;rb1 - PSHx: 07:40 None; rb1 - Immunization history:: Adult Immunizations up to date. - Social history:: Smoking status: Patient reports the use of cigarette tobacco products, smokes 1.5 packs per day. - Family history:: not pertinent. - Hospitalizations: : No recent hospitalization is reported. Screenin:40 Abuse screen: Denies threats or abuse. Nutritional screening: No deficits noted. rb1 Tuberculosis screening: No symptoms or risk factors identified. Fall Risk None identified. Assessment: 07:40 General: See triage assessment.. rb1 08:40 Reassessment: Patient appears in no apparent distress at this time. Patient and/or rb1 family updated on plan of care and expected duration. Pain level reassessed. Patient is alert, oriented x 3, equal unlabored respirations, skin warm/dry/pink. Vital Signs: 07:40 BP 126 / 91; Pulse 101; Resp 19; Temp 98.0; Pulse Ox 98% on R/A; Weight 90.72 kg; rb1 Height 5 ft. 8 in. (172.72 cm); 08:31 BP 132 / 93; Pulse 95; Resp 17; Pulse Ox 97% on R/A; rb1 07:40 Body Mass Index 30.41 (90.72 kg, 172.72 cm) rb1 Nurys Coma Score: 07:40 Eye Response: spontaneous(4). Verbal Response: oriented(5). Motor Response: obeys rb1 commands(6). Total: 15. ED Course: 07:40 Arm band placed on left wrist. rb1 07:40 Patient has correct armband on for positive identification. Placed in gown. Bed in low rb1 position. Call light in reach. Side rails up X2. Seizure precautions initiated. phototypesetting equipment monitor on. Pulse ox on. NIBP on. Warm blanket given. 07:41 Patient arrived in ED. bp 07:43 Fernandez Manzano MD is Attending Physician. rn 07:45 Vicky Manuel, VINI is Primary Nurse. rb1 07:48 Triage completed. rb1 08:00 Inserted saline lock: 22 gauge in right antecubital area, using aseptic technique. rb1 Blood collected. 08:27 EKG done, by ED staff, reviewed by Fernandez Manzano MD. [facility] 08:28 Patient has correct armband on for positive identification. Placed in gown. Bed in low mh5 position. Call light in reach. Side rails up X2. Warm blanket given. Pillow given. phototypesetting equipment monitor on. Pulse ox on. NIBP on. 08:57 No provider procedures requiring assistance completed. IV discontinued, intact, rb1 bleeding controlled, No redness/swelling at site. Pressure dressing applied. Administered Medications: 08:09 Drug: Valium 5 mg Route: PO; rb1 08:55 Follow up: Response: No adverse reaction; Anxiety decreased rb1 08:55 Drug: Tylenol 650 mg Route: PO; rb1 08:56 Follow up: Response: Medication administered at discharge. rb1 Outcome: 08:45 Discharge ordered by . rn 08:57 Discharged to Law Enforcement rb1 08:57 Condition: stable 08:57 Discharge instructions given to patient, Instructed on discharge instructions, follow up and referral plans. Demonstrated understanding of instructions, follow-up care. 08:58 Patient left the ED. rb1 Signatures: Fernandez Manzano MD MD rn Vicky Manuel, RN RN [facility] Hanh Ruffin Rafita Martel, RN RN bp
--- NOTE | 2020-03-29 08:45 | EDPHYS ---
Physician Documentation [facility] [place] Name: Anthony Au Age: 35 yrs Sex: Male : 1985 Arrival Date: 03/29/2020 Time: 07:41 Bed 8 Private MD: ED Physician Fernandez Manzano HPI: 03/29 07:45 This 35 yrs old Male presents to ER via Unassigned with complaints of rn Palpitations. 07:45 The patient presents with a history of heart racing. Context: The symptoms occur during rn sleep. Onset: The symptoms/episode began/occurred just prior to arrival. Duration: The patient or guardian reports a single episode, that is now resolved. Modifying factors: The symptoms are aggravated by nothing. The symptoms are alleviated by nothing. Severity of symptoms: At their worst the symptoms were moderate in the emergency department the symptoms have improved. The patient has experienced similar episodes in the past. Reports woke up in [facility], heart racing, felt chest pressure, non-radiating, no fever/cough/sob/abd pain/vomiting/diaphoresis. Reports better when took him "out of the hole". Now continues to improve. + hx of anxiety and panic attacks. No family cardiac problems at his age, has been taking his medication prescribed to him regularly and no change in doses recently. Denies recent drug use. . Historical: - Allergies: 07:40 No Known Allergies; rb1 - Home Meds: 07:40 clonazepam 2 mg Oral tab 1 tab 2 times per day [Active]; Depakote ER 500 mg Oral Tb24 2 rb1 tabs once daily [Active]; Latuda 80 mg Oral tab 1 tab once daily [Active]; Prozac Oral [Active]; Paxil Oral [Active]; - PMHx: 07:40 Anxiety; Asthma; Bipolar disorder; Depression; detox seizures; scalp laceration repair.;rb1 - PSHx: 07:40 None; rb1 - Immunization history:: Adult Immunizations up to date. - Social history:: Smoking status: Patient reports the use of cigarette tobacco products, smokes 1.5 packs per day. - Family history:: not pertinent. - Hospitalizations: : No recent hospitalization is reported. ROS: 07:45 Constitutional: Negative for fever, chills, and weight loss, Eyes: Negative for injury, rn pain, redness, and discharge, Neck: Negative for injury, pain, and swelling, Cardiovascular: Negative for edema Respiratory: Negative for shortness of breath, cough, wheezing, and pleuritic chest pain, Abdomen/GI: Negative for abdominal pain, nausea, vomiting, diarrhea, and constipation, MS/Extremity: Negative for injury and deformity, Skin: Negative for injury, rash, and discoloration, Neuro: Negative for headache, weakness, numbness, tingling, and seizure. Exam: 07:45 Constitutional: This is a well developed, well nourished patient who is awake, alert, rn appears anxious. Head/Face: Normocephalic, atraumatic. Neck: Trachea midline, no thyromegaly or masses palpated, and no cervical lymphadenopathy. Supple, full range of motion without nuchal rigidity, or vertebral point tenderness. No Meningismus. Cardiovascular: Tachycardic, regular, intact and equal distal pulses Respiratory: No increased work of breathing, no retractions or nasal flaring. Abdomen/GI: Soft, non-tender Skin: Warm, dry MS/ Extremity: Pulses equal, no cyanosis. Neuro: Awake and alert, GCS 15, oriented to person, place, time, and situation. Cranial nerves II-XII grossly intact. Motor strength 5/5 in all extremities. Sensory grossly intact. 08:14 ECG was reviewed by the Attending Physician. rn Vital Signs: 07:40 BP 126 / 91; Pulse 101; Resp 19; Temp 98.0; Pulse Ox 98% on R/A; Weight 90.72 kg; rb1 Height 5 ft. 8 in. (172.72 cm); 08:31 BP 132 / 93; Pulse 95; Resp 17; Pulse Ox 97% on R/A; rb1 07:40 Body Mass Index 30.41 (90.72 kg, 172.72 cm) rb1 Nurys Coma Score: 07:40 Eye Response: spontaneous(4). Verbal Response: oriented(5). Motor Response: obeys rb1 commands(6). Total: 15. MDM: 07:43 Patient medically screened. rn 08:43 Differential diagnosis: arrythmia, dehydration, stress disorder. Data reviewed: vital rn signs, nurses notes, lab test result(s), EKG, and as a result, I will discharge patient. Counseling: I had a detailed discussion with the patient and/or guardian regarding: the historical points, exam findings, and any diagnostic results supporting the discharge/admit diagnosis, lab results, the need for outpatient follow up, to return to the emergency department if symptoms worsen or persist or if there are any questions or concerns that arise at home. Special discussion: Based on the patient's history, exam, and Dx evaluation, there is no indication for emergent intervention or inpatient Tx. It is understood by the patient/guardian that if the Sx's persist or worsen they need to return immediately for re-evaluation. I discussed with the patient/guardian in detail that at this point there is no indication for admission to the hospital. It is understood, however, that if the symptoms persist or worsen the patient needs to return immediately for re-evaluation. ED course: Pt back to baseline, no arrythmia on monitor or ecg, neg trop, electrolytes ok, will dc to [facility]. . 03/29 07:44 Order name: CBC with Diff; Complete Time: 08:43 rn 03/29 07:44 Order name: Basic Metabolic Panel; Complete Time: 08:43 rn 03/29 07:44 Order name: EKG; Complete Time: 07:45 rn 03/29 07:44 Order name: Troponin (emerg Dept Use Only); Complete Time: 08:43 rn 03/29 07:44 Order name: IV Start; Complete Time: 08:04 rn 03/29 07:44 Order name: EKG - Nurse/Tech; Complete Time: 08:28 rn EC:14 Rate is 95 beats/min. Rhythm is regular. Right axis deviation noted. QRS is positive in rn lead aVF and negative in lead I. VA interval is normal. QRS interval is normal. QT interval is normal. No Q waves. T waves are Normal. No ST changes noted. Clinical impression: NSR w/ Non-specific ST/T Changes. Interpreted by me. Reviewed by me. Administered Medications: 08:09 Drug: Valium 5 mg Route: PO; rb1 08:55 Follow up: Response: No adverse reaction; Anxiety decreased rb1 08:55 Drug: Tylenol 650 mg Route: PO; rb1 08:56 Follow up: Response: Medication administered at discharge. rb1 Disposition: 03/29/20 08:45 Discharged to Home. Impression: Palpitations, Chest pain, unspecified. - Condition is Stable. - Discharge Instructions: Nonspecific Chest Pain, Palpitations. - Medication Reconciliation Form, Thank You Letter, Antibiotic Education, Prescription Opioid Use form. - Follow up: Private Physician; When: As needed; Reason: Recheck today's complaints, Re-evaluation by your physician. - Problem is new. - Symptoms are resolved. Signatures: Dispatcher [employer] EDME Fernandez Manzano MD MD rn Vicky Manuel RN RN rb1 Corrections: (The following items were deleted from the chart) 08:58 08:45 03/29/2020 08:45 Discharged to Home. Impression: Palpitations; Chest pain, rb1 unspecified. Condition is Stable. Forms are Medication Reconciliation Form, Thank You Letter, Antibiotic Education, Prescription Opioid Use. Follow up: Private Physician; When: As needed; Reason: Recheck today's complaints, Re-evaluation by your physician. Problem is new. Symptoms are resolved. rn
[2020-03-29] MEDS ORDERED: ACETAMINOPHEN 325 MG TABLET ONE (08:59)
[2020-03-29 09:04] VITALS: TEMP 98
[2020-03-29 09:06] VITALS: BP 132/93; O2SAT 97
== END 2020-03-29 08:58 | disposition home or self-care (01) ==
LOC: ER 07:38
DX: R07.9 Chest pain, unspecified (principal); F31.9 Bipolar disorder, unspecified; F17.210 Nicotine dependence, cigarettes, uncomplicated
CPT/HCPCS: 36415; 80048; 84484; 85025; 93005; 99284

== ENCOUNTER 2020-05-16 23:03 | Emergency (ER) | payer SELFPAY ==
--- OUTSIDE RECORDS SUMMARY | 2020-05-16 23:08 | XMS REPORT | Continuity of Care Document ---
:1985 Author Organization [facility] t Address [address] [place] [address] Dr. Lopez [address] [place] [id number] Care Team Providers Name Role Phone Unavailable Unavailable Unavailable Problems This patient has no known problems. Allergies, Adverse Reactions, Alerts This patient has no known allergies or adverse reactions. Medications This patient has no known medications. Procedures This patient has no known procedures. Results This patient has no known results.
[2020-05-16 23:57] LABS: Urine Blood NEGATIVE (NEG); Urine Glucose NEGATIVE (NEG); Urine Protein NEGATIVE (NEG); Urine Specific Gravity 1.015 (1.005-1.030)
[2020-05-16 23:58] LABS: Absolute Lymphocytes (CBC) 2.4 K/uL (0.7-4.9); Basophils % 0.5 % (0-1.3); Hematocrit 43.1 % (39.6-49.0); Lymphocytes % 22.6 % (15.3-44.8); MPV 8.8 fL (7.6-11.3); RBC Red Blood Cell Count 4.76 M/uL (4.33-5.43)
[2020-05-17 00:03] LABS: Protime INR 1.02
[2020-05-17 00:10] LABS: Barbiturates NEGATIVE (NEGATIVE); Benzodiazepines NEGATIVE (NEGATIVE); Cocaine NEGATIVE (NEGATIVE); METHAMPHETAM NEGATIVE (NEGATIVE); Methadone NEGATIVE (NEGATIVE); Opiates NEGATIVE (NEGATIVE); Phencyclidine NEGATIVE (NEGATIVE); THC Cannibis POSITIVE (NEGATIVE)
[2020-05-17 00:25] LABS: ALT/SGPT 51 U/L (12-78); AST/SGOT 30 U/L (15-37); Albumin 3.7 g/dL (3.4-5.0); Alkaline Phosphatase 53 U/L (45-117); BUN Blood Urea Nitrogen 9 mg/dL (7-18); Bicarbonate 24 mmol/L (21-32); Bilirubin Direct 0.2 mg/dL (0-0.2); Bilirubin Total 0.6 mg/dL (0.2-1.0); Glucose Level 129 mg/dL (74-106); Potassium 3.1 mmol/L (3.5-5.1); Protein, Total 7.6 g/dL (6.4-8.2); Sodium Level 141 mmol/L (136-145)
--- NOTE | 2020-05-17 05:20 | EDPHYS ---
Physician Documentation [facility] [place] Name: Anthony Au Age: 35 yrs Sex: Male : 1985 Arrival Date: 05/16/2020 Time: 23:04 Bed 19 Private MD: ED Physician Rafael Wilson HPI: 05/17 00:20 This 35 yrs old Male presents to ER via Ambulatory with complaints of Suicidal tw4 Ideation. 00:20 The patient presents to the emergency department with suicide ideation. Onset: The tw4 symptoms/episode began/occurred today. Past psychiatric history: Prior diagnosis: no previous psychiatric diagnosis known. Associated signs and symptoms: The patient has no apparent associated signs or symptoms. The patient has not experienced similar symptoms in the past. Historical: - Allergies: 05/16 23:05 No Known Allergies; sg - PMHx: 23:05 Anxiety; Asthma; Bipolar disorder; Depression; detox seizures; scalp laceration repair.;sg - PSHx: 23:05 None; sg - Immunization history:: Adult Immunizations up to date. - Social history:: Smoking status: Patient reports the use of cigarette tobacco products. ROS: 05/17 00:20 Constitutional: Negative for fever, chills, and weight loss, Eyes: Negative for injury, tw4 pain, redness, and discharge, Cardiovascular: Negative for chest pain, palpitations, and edema, Respiratory: Negative for shortness of breath, cough, wheezing, and pleuritic chest pain, Abdomen/GI: Negative for abdominal pain, nausea, vomiting, diarrhea, and constipation, Back: Negative for injury and pain, MS/Extremity: Negative for injury and deformity, Skin: Negative for injury, rash, and discoloration, Neuro: Negative for headache, weakness, numbness, tingling, and seizure. Psych: Positive for suicidal ideation. Exam: 00:20 Constitutional: This is a well developed, well nourished patient who is awake, alert, tw4 and in no acute distress. Head/Face: Normocephalic, atraumatic. Chest/axilla: Normal chest wall appearance and motion. Nontender with no deformity. No lesions are appreciated. Cardiovascular: Regular rate and rhythm with a normal S1 and S2. No gallops, murmurs, or rubs. Normal PMI, no JVD. No pulse deficits. Respiratory: Lungs have equal breath sounds bilaterally, clear to auscultation and percussion. No rales, rhonchi or wheezes noted. No increased work of breathing, no retractions or nasal flaring. Abdomen/GI: Soft, non-tender, with normal bowel sounds. No distension or tympany. No guarding or rebound. No evidence of tenderness throughout. Back: No spinal tenderness. No costovertebral tenderness. Full range of motion. MS/ Extremity: Pulses equal, no cyanosis. Neurovascular intact. Full, normal range of motion. Neuro: Awake and alert, GCS 15, oriented to person, place, time, and situation. Cranial nerves II-XII grossly intact. Motor strength 5/5 in all extremities. Sensory grossly intact. Cerebellar exam normal. Normal gait. 00:20 Psych: Behavior/mood is depressed, Affect is flat, Oriented to person, place, time. Vital Signs: 05/16 23:05 Weight 78.02 kg; Height 5 ft. 8 in. (172.72 cm) (R); sg 23:15 BP 145 / 105; Pulse 99; Resp 28; Temp 99.1; Pulse Ox 98% on R/A; vc 23:30 BP 138 / 70; Pulse 92; Resp 16; Pulse Ox 100% on R/A; vc 23:05 Body Mass Index 26.15 (78.02 kg, 172.72 cm) sg MDM: 23:37 Patient medically screened. tw4 05/17 01:12 Differential diagnosis: drug withdrawal. Data reviewed: vital signs, nurses notes. Data tw4 interpreted: Pulse oximetry: Interpretation: normal. Test interpretation: by ED physician or midlevel provider: ECG. 05:14 Counseling: I had a detailed discussion with the patient and/or guardian regarding: the tw4 historical points, exam findings, and any diagnostic results supporting the discharge/admit diagnosis. Other consultation: political worker was called and will evaluate the patient's circumstances. ED course: Pt evaluated by nicole Ledesma and states that he is no longer suicidal. Upon initial interview pt, he hesitated in stating that he was suicidal. He stated that he is here for withdrawals from benzodiazepines, amphetamines and heroin. Pt showing no signs or symptoms of withdrawal. Pt also stated to [facility] chef kitchen manager that he wants to be placed in rehab. Pt medically table and has no SI,or HI. will discharge to home with followup. pt told to return to the ED if symptoms worsen . 05/16 23:38 Order name: Acetaminophen; Complete Time: 01:10 05/17 01:11 Interpretation: Within normal limits: ACETA < 2.0. 05/16 23:38 Order name: Basic Metabolic Panel; Complete Time: 01:10 05/17 01:11 Interpretation: Normal except: K 3.1; CL 109; GLUC 129; GFR 77. 05/16 23:38 Order name: CBC with Diff; Complete Time: 01:10 05/16 23:38 Order name: ETOH Level; Complete Time: 01:10 05/17 01:11 Interpretation: Within normal limits: ETOH < 10. 05/16 23:38 Order name: Hepatic Function; Complete Time: 01:10 05/17 01:11 Interpretation: Normal except: GLOB 3.9; A/G 0.9. 05/16 23:38 Order name: PT-INR; Complete Time: 01:10 05/17 01:11 Interpretation: Within normal limits: PT 12.0. 05/16 23:38 Order name: Ptt, Activated; Complete Time: 01:10 05/17 01:11 Interpretation: Within normal limits: PTT 30.6. 05/16 23:38 Order name: Salicylate; Complete Time: 01:10 05/16 23:38 Order name: Urine Drug Screen; Complete Time: 01:10 05/17 01:11 Interpretation: THC POSITIVE. 05/16 23:38 Order name: EKG; Complete Time: 23:39 05/16 23:38 Order name: EKG - Nurse/Tech; Complete Time: 00:29 05/16 23:38 Order name: IV Saline Lock; Complete Time: 00:29 05/16 23:38 Order name: Labs collected and sent; Complete Time: 00:29 05/16 23:50 Order name: Urine Dipstick--Ancillary (enter results); Complete Time: 01:10 [facility] 05/16 23:38 Order name: Urine Dipstick-Ancillary (obtain specimen); Complete Time: 00:29 EC:12 Rate is 97 beats/min. Rhythm is regular. QRS Enders is Normal. CO interval is normal. QRS tw4 interval is normal. QT interval is normal. No Q waves. T waves are Normal. No ST changes noted. Clinical impression: Normal ECG. Interpreted by me. Reviewed by me. Administered Medications: No medications were administered Disposition: 05/17/20 05:19 Discharged to Home. Impression: Adjustment disorder with other symptoms, Cannabis abuse. - Condition is Stable. - Discharge Instructions: Adjustment Disorder, Adult, Cannabis Use Disorder. - Medication Reconciliation Form, Thank You Letter, Antibiotic Education, Prescription Opioid Use form. - Follow up: Private Physician; When: Upon discharge from the Emergency Department; Reason: Recheck today's complaints, Continuance of care, Re-evaluation by your physician. - Problem is an ongoing problem. - Symptoms are unchanged. Signatures: Dispatcher [employer] EDAndrea Franco RN RN Rafael Ambriz MD MD tw4 Evita Castillo RN RN vc Corrections: (The following items were deleted from the chart) 01:11 01:11 Abnormal: ACETA < 2.0. tw4 tw4 05:38 05:19 05/17/2020 05:19 Discharged to Home. Impression: Adjustment disorder with other vc symptoms; Cannabis abuse. Condition is Stable. Forms are Medication Reconciliation Form, Thank You Letter, Antibiotic Education, Prescription Opioid Use. Follow up: Private Physician; When: Upon discharge from the Emergency Department; Reason: Recheck today's complaints, Continuance of care, Re-evaluation by your physician. Problem is an ongoing problem. Symptoms are unchanged. tw4
--- NOTE | 2020-05-17 05:20 | ER ---
Nurse's Notes [facility] Name: Anthony Au Age: 35 yrs Sex: Male : 1985 Arrival Date: 05/16/2020 Time: 23:04 Bed 19 Private MD: Diagnosis: Adjustment disorder with other symptoms;Cannabis abuse Presentation: 05/16 23:05 Acuity: MARKY 2 sg 23:05 Chief complaint: Chief complaint: Patient states: I needed to come in because Im sg withdrawing from heroin, morphine, and suboxone, last use these substances yesterday. Reports seeking help tonight due to having suicidal thoughts, but no current plan at this time. 23:14 Coronavirus screen: Client denies travel out of the [place] in the last 14 days. Ebola sg Screen: Patient negative for fever greater than or equal to 101.5 degrees Fahrenheit, and additional compatible Ebola Virus Disease symptoms Patient denies exposure to infectious person. Patient denies travel to an Ebola-affected area in the 21 days before illness onset. No symptoms or risks identified at this time. Initial Sepsis Screen: Does the patient meet any 2 criteria? No. Patient's initial sepsis screen is negative. Does the patient have a suspected source of infection? No. Patient's initial sepsis screen is negative. Risk Assessment: Do you want to hurt yourself or someone else? Patient reports desire/thoughts of hurting themselves or someone else. Provider notified. Note pt reports having had help from the [facility] in the past for similar problems as tonights complaint. Onset of symptoms was May 16, 2020. Care prior to arrival: None. Transition of care: patient was not received from another setting of care. 23:14 Method Of Arrival: Ambulatory sg Triage Assessment: 23:15 General: Appears uncomfortable, slender, well groomed, Behavior is cooperative, anxious.vc 23:15 Pain: Denies pain. vc Historical: - Allergies: 23:05 No Known Allergies; sg - PMHx: 23:05 Anxiety; Asthma; Bipolar disorder; Depression; detox seizures; scalp laceration repair.;sg - PSHx: 23:05 None; sg - Immunization history:: Adult Immunizations up to date. - Social history:: Smoking status: Patient reports the use of cigarette tobacco products. Screenin:05 Abuse screen: Denies threats or abuse. Nutritional screening: No deficits noted. vc Patient reports unable to eat for the last week.. Tuberculosis screening: No symptoms or risk factors identified. Fall Risk None identified. Assessment: 23:10 General: Appears uncomfortable, well groomed, Behavior is cooperative, anxious. Pain: vc Denies pain. Neuro: Level of Consciousness is awake, alert, obeys commands, Oriented to person, place, time, situation, Appropriate for age. Cardiovascular: Reports None Denies chest pain, Patient's skin is warm and dry. Respiratory: Airway is patent Respiratory effort is even, unlabored, Respiratory pattern is symmetrical, tachypnea. GI: No signs and/or symptoms were reported involving the gastrointestinal system. : No signs and/or symptoms were reported regarding the genitourinary system. Derm: Skin is intact, is healthy with good turgor. Musculoskeletal: Circulation, motion, and sensation intact. Range of motion: intact in all extremities. 23:15 Reassessment: Patient stated that he is having withdrawals from benzo's, opiates, vc cocaine and meth. Patient states, "I am going to if I stay out on the streets." When asked if patient had any plans of suicide he stated yes. When asked what his plan was he stated he was going to shoot his self. Patient states he does not own a gun. 05/17 00:10 Reassessment: Patient appears in no apparent distress at this time. Patient and/or vc family updated on plan of care and expected duration. Pain level reassessed. Patient is alert, oriented x 3, equal unlabored respirations, skin warm/dry/pink. 01:00 Reassessment: Patient appears in no apparent distress at this time. Patient laying on vc right side with eyes closed, chest rising and falling equally. 02:00 Reassessment: Patient appears in no apparent distress at this time. No changes from vc previously documented assessment. Patient and/or family updated on plan of care and expected duration. Pain level reassessed. 03:00 Reassessment: Patient appears in no apparent distress at this time. Patient and/or vc family updated on plan of care and expected duration. Pain level reassessed. 04:00 Reassessment: Patient appears in no apparent distress at this time. Patient and/or vc family updated on plan of care and expected duration. Pain level reassessed. Patient laying on back with eyes closed chest rising and falling equally. 04:39 Reassessment: Patient on IPAD with nicole mcallister doing face to face interview. 05:01 Reassessment: Rowdy with [facility] stated that the pt reported that he was not sg suicidal or homicidal at this time, reported that he hasn't been suicidal for several weeks, the last time he felt suicidal was like a month or two ago, and that he is here in the ED for help for treating his addiction. Rowdy reports that the [employer] team member for [facility] who can reach out to him on Monday for treatment options if he is truly withdrawing and would like to agree to treatment with them. Rowdy to talk with for treatment plan of care at this time. primary nurse Evita MARTINI notified. 05:31 Reassessment: Belongings brought from security. Psych: 05/16 23:16 Subjective: Patient's mood is sad, hopeless, Delusions are denied, Hallucinations are sg denied Having thoughts of suicide. Denies suicidal plan. Objective: Patient is cooperative, irritable, using poor eye contact, Speech is normal, Affect is appropriate. Suicide Risk Assessment: Sad Person Scale: Sex of patient: Male: Score 1 point. Age of patient: Score 1 point if patient 15-34. Depression: Score 1 point if signs of depression are present. Previous Attempt: Score 0 point if patient has not previously attempted suicide. Substance Abuse: Score 1 point if patient abuses alcohol or drugs. Rational Thinking: Score 0 point if patient has rational thinking. Social Support: Score 1 point if social support is lacking and/or unavailable. Organized Plan: Score 0 if patient did not have an organized plan in place. Relationship: Score 1 point if patient is , , , or for a single male Chronic Sickness: Score 1 point if patient has illness, chronic, debilitating, or severe. TOTAL POINTS: If total points are 5-6, proposed clinical action is to strongly consider hospitalization, depending upon confidence in the follow-up arrangement. Implement suicide precautions. Safety Checks: Door is open. Patient uses benzodiazepines Patient uses heroin. 23:20 Interventions: Removed personal items and placed in bag. Patient placed in hospital vc gown. Searched person for dangerous items. Urine collected and sent for urine drug test. Belonging list filled out. 23:20 Commitment: Patient will be a voluntary commitment. vc Vital Signs: 23:05 Weight 78.02 kg; Height 5 ft. 8 in. (172.72 cm) (R); sg 23:15 BP 145 / 105; Pulse 99; Resp 28; Temp 99.1; Pulse Ox 98% on R/A; vc 23:30 BP 138 / 70; Pulse 92; Resp 16; Pulse Ox 100% on R/A; vc 23:05 Body Mass Index 26.15 (78.02 kg, 172.72 cm) ED Course: 23:04 Patient arrived in ED. cl3 23:06 Triage completed. sg 23:06 Arm band placed on. sg 23:06 Patient has correct armband on for positive identification. vc 23:37 Rafael Wilson MD is Attending Physician. tw4 05/17 00:28 Evita Castillo, RN is Primary Nurse. vc 02:56 called [facility] spoke with Sana to have screener speak with pt. mw2 03:53 Samuel Delgadonandez called from [facility] to notify us that they are having problems mw2 trying to get a hold of the health information managers screener. 05:34 No provider procedures requiring assistance completed. IV discontinued, intact, vc bleeding controlled, No redness/swelling at site. Pressure dressing applied. Administered Medications: No medications were administered Outcome: 05:19 Discharge ordered by . tw4 05:34 Discharged to home ambulatory. vc 05:34 Condition: good 05:34 Discharge instructions given to patient, Instructed on discharge instructions, follow up and referral plans. Demonstrated understanding of instructions, follow-up care. 05:38 Patient left the ED. vc Signatures: Andrea Chatman, RN RN Rafael Wilson MD MD tw4 Duncan Cox mw2 Theron Donahue cl3 Evita Castillo, RN RN vc Corrections: (The following items were deleted from the chart) 05/16 23:16 23:05 Chief complaint: [facility] 05/17 03:00 08 23:14 Risk Assessment: Do you want to hurt yourself or someone else? Patient sg reports no desire to harm self or others. 05/17 04:29 05/16 23:05 BP 138 / 70; Pulse 92bpm; Resp 16bpm; Pulse Ox 100% RA; sg vc
[2020-05-17 05:43] VITALS: TEMP 99.1
[2020-05-17 05:44] VITALS: BP 138/70; O2SAT 100
--- NOTE | 2020-05-17 15:35 | EKG ---
Test Date: 2020-05-16 Test Time: 23:22:58 Colors Custodian: ZEB MEASUREMENT RESULTS: Intervals: Rate: 97 FL: 124 QRSD: 88 QT: 336 QTc: 426 [place]: P: 47 FL: 124 QRS: 87 T: 59 INTERPRETIVE STATEMENTS: Normal sinus rhythm Normal ECG Compared to ECG 03/29/2020 08:13:18 Right-axis deviation no longer present Electronically Signed On 05-17-20 15:34:21 CDT by Charli Nance
== END 2020-05-17 05:38 | disposition home or self-care (01) ==
LOC: ER 23:03
DX: F43.29 Adjustment disorder with other symptoms (principal); F12.10 Cannabis abuse, uncomplicated; F31.9 Bipolar disorder, unspecified; F17.210 Nicotine dependence, cigarettes, uncomplicated
CPT/HCPCS: 36415; 80048; 80076; 80307; 80320; 80329; 81003; 85025; 85610; 85730; 93005; 99284

== ENCOUNTER 2020-05-17 11:28 | Emergency (ER) | payer SELFPAY ==
--- OUTSIDE RECORDS SUMMARY | 2020-05-17 11:30 | XMS REPORT | Continuity of Care Document ---
:1985 Author Organization [facility] t Address [address] [place] [address] Dr. Lopez [address] [place] [id number] Care Team Providers Name Role Phone Unavailable Unavailable Unavailable Problems This patient has no known problems. Allergies, Adverse Reactions, Alerts This patient has no known allergies or adverse reactions. Medications This patient has no known medications. Procedures This patient has no known procedures. Results This patient has no known results.
--- NOTE | 2020-05-17 11:59 | EDPHYS ---
Physician Documentation [facility] Name: Anthony Au Age: 35 yrs Sex: Male : 1985 Arrival Date: 05/17/2020 Time: 11:31 Bed 16 Private MD: ED Physician Ming Elena HPI: 05/17 11:55 This 35 yrs old Male presents to ER via Ambulatory with complaints of Drug ma2 Withdrawl. 11:55 going through benzo withdrawal, last use was 3 days ago he is scheduled to check in [facility] for detox tomorrow.. he was here last night and did nt received meds . Severity of symptoms: At their worst the symptoms were mild in the emergency department the symptoms are unchanged. The patient has not experienced similar symptoms in the past. 11:55 Onset: The symptoms/episode began/occurred gradually, 3 day(s) ago. ma2 Historical: - Allergies: 11:44 No Known Allergies; hb - Home Meds: 11:44 clonazepam 2 mg Oral tab 1 tab 2 times per day [Active]; Latuda 80 mg Oral tab 1 tab hb once daily [Active]; Prozac Oral [Active]; - PMHx: 11:44 Asthma; Anxiety; Bipolar disorder; Depression; detox seizures; scalp laceration repair.;hb - PSHx: 11:44 None; hb - Immunization history:: Adult Immunizations up to date. - Social history:: Smoking status: Patient reports the use of cigarette tobacco products, smokes one pack cigarettes per day. - Family history:: not pertinent. ROS: 11:55 Constitutional: Negative for fever, chills, and weight loss. ma2 11:55 All other systems are negative. Exam: 11:55 Constitutional: This is a well developed, well nourished patient who is awake, alert, ma2 and in no acute distress. Head/Face: Normocephalic, atraumatic. Eyes: Pupils equal round and reactive to light, extra-ocular motions intact. Lids and lashes normal. Conjunctiva and sclera are non-icteric and not injected. Cornea within normal limits. Periorbital areas with no swelling, redness, or edema. ENT: Nares patent. No nasal discharge, no septal abnormalities noted. Tympanic membranes are normal and external auditory canals are clear. Oropharynx with no redness, swelling, or masses, exudates, or evidence of obstruction, uvula midline. Mucous membranes moist. Neck: Trachea midline, no thyromegaly or masses palpated, and no cervical lymphadenopathy. Supple, full range of motion without nuchal rigidity, or vertebral point tenderness. No Meningismus. Chest/axilla: Normal chest wall appearance and motion. Nontender with no deformity. No lesions are appreciated. Cardiovascular: Regular rate and rhythm with a normal S1 and S2. No gallops, murmurs, or rubs. Normal PMI, no JVD. No pulse deficits. Respiratory: Lungs have equal breath sounds bilaterally, clear to auscultation and percussion. No rales, rhonchi or wheezes noted. No increased work of breathing, no retractions or nasal flaring. Abdomen/GI: Soft, non-tender, with normal bowel sounds. No distension or tympany. No guarding or rebound. No evidence of tenderness throughout. MS/ Extremity: Pulses equal, no cyanosis. Neurovascular intact. Full, normal range of motion. Neuro: Awake and alert, GCS 15, oriented to person, place, time, and situation. Cranial nerves II-XII grossly intact. Motor strength 5/5 in all extremities. Sensory grossly intact. Cerebellar exam normal. Normal gait. Vital Signs: 11:40 BP 132 / 68; Pulse 95; Resp 16; Temp 97.8; Pulse Ox 100% on R/A; Weight 86.18 kg; hb Height 5 ft. 8 in. (172.72 cm); Pain 10/10; 11:40 Body Mass Index 28.89 (86.18 kg, 172.72 cm) hb MDM: 11:45 Patient medically screened. ma2 11:55 Differential Diagnosis drug use, benzo withdrawal, anxiety . Data reviewed: vital ma2 signs, nurses notes. Counseling: I had a detailed discussion with the patient and/or guardian regarding: the historical points, exam findings, and any diagnostic results supporting the discharge/admit diagnosis, the presence of at least one elevated blood pressure reading (>120/80) during this emergency department visit, the need for outpatient follow up. Response to treatment: the patient's symptoms have markedly improved after treatment. Administered Medications: 12:11 Drug: Valium 10 mg Route: PO; hb 12:11 Follow up: Response: Medication administered at discharge. hb Disposition: 05/17/20 11:59 Discharged to Home. Impression: Anxiety disorder, unspecified - benzodiazepine withdrawal . - Condition is Stable. - Discharge Instructions: Substance Use Disorder. - Medication Reconciliation Form, Thank You Letter, Antibiotic Education, Prescription Opioid Use form. - Follow up: Private Physician; When: Tomorrow; Reason: Continuance of care. Signatures: Jessie Hinojosa RN RN Ming Elena MD MD ma2 Corrections: (The following items were deleted from the chart) 12:12 11:59 05/17/2020 11:59 Discharged to Home. Impression: Anxiety disorder, unspecified - benzodiazepine withdrawal . Condition is Stable. Forms are Medication Reconciliation Form, Thank You Letter, Antibiotic Education, Prescription Opioid Use. Follow up: Private Physician; When: Tomorrow; Reason: Continuance of care. ma2
--- NOTE | 2020-05-17 11:59 | ER ---
Nurse's Notes [facility] Name: Anthony Au Age: 35 yrs Sex: Male : 1985 Arrival Date: 05/17/2020 Time: : Bed 16 Private MD: Diagnosis: Anxiety disorder, unspecified-benzodiazepine withdrawal Presentation: 05/17 11:40 Chief complaint: Anxiety and nausea x 1 week, stated "I am withdrawing from Suboxone hb and Xanax and Klonopin, it is really bad, I feel horrible." Last use was yesterday. Coronavirus screen: At this time, the client does not indicate any symptoms associated with coronavirus-19. Ebola Screen: No symptoms or risks identified at this time. Initial Sepsis Screen: Does the patient meet any 2 criteria? HR > 90 bpm. No. Patient's initial sepsis screen is negative. Does the patient have a suspected source of infection? No. Patient's initial sepsis screen is negative. Risk Assessment: Do you want to hurt yourself or someone else? Patient reports no desire to harm self or others. Onset of symptoms was May 17, 2020. 11:40 Method Of Arrival: Ambulatory hb 11:40 Acuity: MARKY 3 hb Historical: - Allergies: 11:44 No Known Allergies; hb - Home Meds: 11:44 clonazepam 2 mg Oral tab 1 tab 2 times per day [Active]; Latuda 80 mg Oral tab 1 tab hb once daily [Active]; Prozac Oral [Active]; - PMHx: 11:44 Asthma; Anxiety; Bipolar disorder; Depression; detox seizures; scalp laceration repair.;hb - PSHx: 11:44 None; hb - Immunization history:: Adult Immunizations up to date. - Social history:: Smoking status: Patient reports the use of cigarette tobacco products, smokes one pack cigarettes per day. - Family history:: not pertinent. Vital Signs: 11:40 BP 132 / 68; Pulse 95; Resp 16; Temp 97.8; Pulse Ox 100% on R/A; Weight 86.18 kg; hb Height 5 ft. 8 in. (172.72 cm); Pain 10/10; 11:40 Body Mass Index 28.89 (86.18 kg, 172.72 cm) hb ED Course: :31 Patient arrived in ED. mr 11:43 Triage completed. hb 11:44 Arm band placed on. hb 11:45 Ming Elena MD is Attending Physician. ma2 Administered Medications: 12:11 Drug: Valium 10 mg Route: PO; hb 12:11 Follow up: Response: Medication administered at discharge. hb Outcome: 11:59 Discharge ordered by . ma2 12:12 Discharged to home ambulatory. hb 12:12 Condition: stable 12:12 Discharge instructions given to patient, Instructed on discharge instructions, follow up and referral plans. medication usage, Demonstrated understanding of instructions, follow-up care, medications. 12:12 Patient left the ED. hb Signatures: Tatiana Arguelles HinojosaJessie RN RN Ming Elena MD MD [email or web address]
[2020-05-17 12:16] VITALS: BP 132/68; TEMP 97.8; O2SAT 100
[2020-05-17] MEDS ORDERED: DIAZEPAM 5 MG TABLET ONE (12:20)
== END 2020-05-17 12:12 | disposition home or self-care (01) ==
LOC: ER 11:28
DX: F13.230 Sedative, hypnotic or anxiolytic dependence with withdrawal, uncomplicated (principal); F31.9 Bipolar disorder, unspecified; F17.210 Nicotine dependence, cigarettes, uncomplicated
CPT/HCPCS: 99283

== ENCOUNTER 2020-05-18 10:36 | Emergency (ER) | payer SELFPAY ==
--- OUTSIDE RECORDS SUMMARY | 2020-05-18 10:50 | XMS REPORT | Continuity of Care Document ---
:1985 Author Organization [facility] t Address [address] [place] [address] Dr. Lopez [address] [place] [id number] Care Team Providers Name Role Phone Unavailable Unavailable Unavailable Problems This patient has no known problems. Allergies, Adverse Reactions, Alerts This patient has no known allergies or adverse reactions. Medications This patient has no known medications. Procedures This patient has no known procedures. Results This patient has no known results.
--- NOTE | 2020-05-18 13:46 | ER ---
Nurse's Notes [facility] Name: Anthony Au Age: 35 yrs Sex: Male : 1985 Arrival Date: 05/18/2020 Time: 10:39 Bed Waiting Private MD: Diagnosis: Presentation: 05/18 10:59 Chief complaint: Patient states: "Going through withdrawal from Benzos and Suboxone. ca1 And I just want to go to sleep and be out of my misery". Coronavirus screen: Client denies travel out of the [place] in the last 14 days. At this time, the client does not indicate any symptoms associated with coronavirus-19. Ebola Screen: Patient negative for fever greater than or equal to 101.5 degrees Fahrenheit, and additional compatible Ebola Virus Disease symptoms Patient denies exposure to infectious person. Patient denies travel to an Ebola-affected area in the 21 days before illness onset. No symptoms or risks identified at this time. Initial Sepsis Screen: Does the patient meet any 2 criteria? No. Patient's initial sepsis screen is negative. Does the patient have a suspected source of infection? No. Patient's initial sepsis screen is negative. Risk Assessment: Do you want to hurt yourself or someone else? Patient reports desire/thoughts of hurting themselves or someone else. Provider notified. Onset of symptoms was May 18, 2020. 10:59 Method Of Arrival: Ambulatory ca1 10:59 Acuity: MARKY 2 ca1 Triage Assessment: 11:04 General: Appears in no apparent distress. Behavior is cooperative, anxious. ca1 Historical: - Allergies: 11:04 No Known Allergies; ca1 - Home Meds: 11:04 Latuda 80 mg Oral tab 1 tab once daily [Active]; Prozac Oral [Active]; ca1 - PMHx: 11:04 Anxiety; Asthma; Bipolar disorder; Depression; detox seizures; scalp laceration repair.;ca1 - PSHx: 11:04 None; ca1 - Immunization history:: Adult Immunizations up to date. - Social history:: Smoking status: Patient reports the use of cigarette tobacco products, smokes one pack cigarettes per day. Patient uses street drugs, prescription drugs. Vital Signs: 10:59 BP 134 / 103; Pulse 67; Resp 18 S; Temp 98.4(O); Pulse Ox 99% on NC; Weight 86.18 kg ca1 (R); Height 5 ft. 8 in. (172.72 cm) (R); 10:59 Body Mass Index 28.89 (86.18 kg, 172.72 cm) ca1 ED Course: 10:39 Patient arrived in ED. as 11:03 Triage completed. ca1 11:04 Arm band placed on right wrist. ca1 Administered Medications: No medications were administered Outcome: 13:48 Eloped from waiting room. iw 13:49 Patient left the ED. iw Signatures: Chel Ruffin Irene, RN RN iw Naomy Lomas RN RN ca1
[2020-05-18 13:54] VITALS: BP 134/103; TEMP 98.4; O2SAT 99
== END 2020-05-18 13:49 | disposition left against medical advice (07) ==
LOC: ER 10:36
DX: Z53.21 Procedure and treatment not carried out due to patient leaving prior to being seen by health care provider (principal)
CPT/HCPCS: 99281

== ENCOUNTER 2020-05-19 15:53 | Emergency (ER) | payer SELFPAY ==
--- OUTSIDE RECORDS SUMMARY | 2020-05-19 15:55 | XMS REPORT | Continuity of Care Document ---
:1985 Author Organization [facility] t Address [address] [place] [address] Dr. Lopez [address] [place] [id number] Care Team Providers Name Role Phone Unavailable Unavailable Unavailable Problems This patient has no known problems. Allergies, Adverse Reactions, Alerts This patient has no known allergies or adverse reactions. Medications This patient has no known medications. Procedures This patient has no known procedures. Results This patient has no known results.
[2020-05-19 17:03] LABS: Absolute Lymphocytes (CBC) 3.1 K/uL (0.7-4.9); Basophils % 1.1 % (0-1.3); Hematocrit 45.3 % (39.6-49.0); Lymphocytes % 24.4 % (15.3-44.8); RBC Red Blood Cell Count 5.02 M/uL (4.33-5.43)
[2020-05-19] MEDS ORDERED: DIAZEPAM 10 MG/2 ML INJ SYRINGE ONE (17:10)
[2020-05-19] MEDS ORDERED: Ringers Lactate 1,000 ML IV ONE (17:10)
[2020-05-19 17:27] LABS: Barbiturates NEGATIVE (NEGATIVE); Benzodiazepines POSITIVE (NEGATIVE); Cocaine NEGATIVE (NEGATIVE); METHAMPHETAM NEGATIVE (NEGATIVE); Methadone NEGATIVE (NEGATIVE); Opiates NEGATIVE (NEGATIVE); Phencyclidine NEGATIVE (NEGATIVE); THC Cannibis POSITIVE (NEGATIVE)
[2020-05-19 17:42] LABS: ALT/SGPT 55 U/L (12-78); AST/SGOT 31 U/L (15-37); Albumin 4.1 g/dL (3.4-5.0); Alkaline Phosphatase 63 U/L (45-117); BUN Blood Urea Nitrogen 12 mg/dL (7-18); Bicarbonate 25 mmol/L (21-32); Bilirubin Direct 0.1 mg/dL (0-0.2); Bilirubin Total 0.5 mg/dL (0.2-1.0); Glucose Level 79 mg/dL (74-106); Potassium 3.5 mmol/L (3.5-5.1); Sodium Level 143 mmol/L (136-145)
--- NOTE | 2020-05-19 17:46 | EDPHYS ---
Physician Documentation [facility] Name: Anthony Au Age: 35 yrs Sex: Male : 1985 Arrival Date: 05/19/2020 Time: 15:54 Bed 5 Private MD: ED Physician Fernandez Manzano HPI: 05/19 17:13 This 35 yrs old Male presents to ER via EMS with complaints of SUBSTANCE ABUSE.jr8 17:13 Onset: The symptoms/episode began/occurred gradually. Associated signs and symptoms: jr8 Pertinent positives: vomiting, anxiety, pain, myalgias. Modifying factors: The patient symptoms are alleviated by nothing, the patient symptoms are aggravated by nothing. The patient has experienced similar episodes in the past, a few times. The patient has been recently seen by a physician:. Patient seen a few times over the past couple of days for substance withdrawal. Stated that he has been off of Suboxone and benzodiazepines. Has been trying to get into rehab/detox facility but awaiting placement [facility]. Came to ED again today for continuation of withdrawal symptoms . Historical: - Allergies: 16:13 No Known Allergies; bp - Home Meds: 16:13 clonazepam 2 mg Oral tab 1 tab 2 times per day [Active]; Depakote ER 500 mg Oral Tb24 2 bp tabs once daily [Active]; Latuda 80 mg Oral tab 1 tab once daily [Active]; Paxil Oral [Active]; Prozac Oral [Active]; - PMHx: 16:13 Anxiety; Asthma; Bipolar disorder; Depression; detox seizures; scalp laceration repair.;bp - Immunization history:: Adult Immunizations unknown. - Social history:: Smoking status: Patient reports the use of cigarette tobacco products, unknown amount. ROS: 17:13 Eyes: Negative for injury, pain, redness, and discharge, ENT: Negative for injury, jr8 pain, and discharge, Neck: Negative for injury, pain, and swelling, Cardiovascular: Negative for chest pain, palpitations, and edema, Respiratory: Negative for shortness of breath, cough, wheezing, and pleuritic chest pain, Abdomen/GI: Negative for abdominal pain, diarrhea, and constipation. Positive for nausea Back: Negative for injury and pain, MS/Extremity: Negative for injury and deformity, Skin: Negative for injury, rash, and discoloration. 17:13 Constitutional: Positive for body aches, fatigue. 17:13 Neuro: Positive for dizziness, headache. Exam: 17:13 Eyes: Pupils equal round and reactive to light, extra-ocular motions intact. Lids and jr8 lashes normal. Conjunctiva and sclera are non-icteric and not injected. Cornea within normal limits. Periorbital areas with no swelling, redness, or edema. ENT: Nares patent. No nasal discharge, no septal abnormalities noted. Tympanic membranes are normal and external auditory canals are clear. Oropharynx with no redness, swelling, or masses, exudates, or evidence of obstruction, uvula midline. Mucous membranes moist. Neck: Trachea midline, no thyromegaly or masses palpated, and no cervical lymphadenopathy. Supple, full range of motion without nuchal rigidity, or vertebral point tenderness. No Meningismus. Respiratory: Lungs have equal breath sounds bilaterally, clear to auscultation and percussion. No rales, rhonchi or wheezes noted. No increased work of breathing, no retractions or nasal flaring. Abdomen/GI: Soft, non-tender, with normal bowel sounds. No distension or tympany. No guarding or rebound. No evidence of tenderness throughout. Back: No spinal tenderness. No costovertebral tenderness. Full range of motion. Skin: Warm, dry with normal turgor. Normal color with no rashes, no lesions, and no evidence of cellulitis. MS/ Extremity: Pulses equal, no cyanosis. Neurovascular intact. Full, normal range of motion. 17:13 Cardiovascular: Rate: tachycardic, Rhythm: regular, Pulses: Pulses are 2+ in right radial artery and left radial artery. Heart sounds: normal, normal S1and S2, no S3 or S4, no murmur, no rub, no gallop, Edema: is not appreciated. 17:13 Neuro: Orientation: to person, place \T\ time. Mentation: is normal, Memory: is normal, immediate memory is intact, recent memory is intact, remote memory is intact, Cranial nerves: CN I not tested, CN II- XII are normal as tested, visual gutierrez are intact. extraocular movements are intact, Facial palsy and sensory deficits are absent. Nystagmus is absent. Speech is clear and appropriate. Tongue strength is normal, Cerebellar function: normal finger to nose testing, Motor: moves all fours, strength is 5/5 in all extremities, Sensation: no obvious gross deficits, seizure activity, is not displayed by the patient, Abnormal movements: resting tremor, is located in the right hand and left hand. Vital Signs: 16:00 BP 165 / 98; Pulse 110; Resp 18; Temp 98.2; Pulse Ox 98% on R/A; kj1 16:10 BP 138 / 99; Pulse 110; Resp 20; Temp 98.9; Pulse Ox 99% ; bp 17:00 BP 156 / 111; Pulse 99; Resp 12; Pulse Ox 99% ; bp MDM: 16:15 Patient medically screened. jr8 17:43 Data reviewed: vital signs, nurses notes, lab test result(s). Data interpreted: Pulse jr8 oximetry: on room air is 99 %. Interpretation: normal. Counseling: I had a detailed discussion with the patient and/or guardian regarding: the historical points, exam findings, and any diagnostic results supporting the discharge/admit diagnosis, lab results, the need for outpatient follow up, a psychiatrist, to return to the emergency department if symptoms worsen or persist or if there are any questions or concerns that arise at home. Response to treatment: the patient's symptoms have markedly improved after treatment, patient is well hydrated. ED course: Patient feeling much better. Tolerating fluids and food. No vomiting. Had appetite and wanted to eat. Shaking improved. BP normalizing along with HR. Patient has been working with [facility] to be placed in Detox facility. Of safety concern patient can live without Suboxone but to abruptly withdrawal from benzo's could lead to acute seizures and status epilepticus. For now will put patient on low dose benzo so this does not occur until he can get into detox facility . 05/19 16:24 Order name: Acetaminophen; Complete Time: 17:42 05/19 16:24 Order name: Basic Metabolic Panel; Complete Time: 17:05/19 16:24 Order name: CBC with Diff; Complete Time: 17:05/19 16:24 Order name: ETOH Level; Complete Time: 17:42 05/19 16:24 Order name: Hepatic Function; Complete Time: 17:42 05/19 16:24 Order name: Urine Drug Screen; Complete Time: 17:05/19 16:24 Order name: EKG - Nurse/Tech; Complete Time: 16:45 jr8 05/19 16:24 Order name: IV Saline Lock; Complete Time: 16:45 jr8 05/19 16:24 Order name: Labs collected and sent; Complete Time: 16:45 jr8 Administered Medications: 16:45 Drug: Ringers - Lactated Ringers Solution 1000 ml Route: IV; Rate: bolus; Site: left bp antecubital; 17:59 Follow up: Response: No adverse reaction; IV Status: Completed infusion jd3 16:45 Drug: Valium 10 mg Route: IVP; Site: left antecubital; bp 17:45 Follow up: Response: No adverse reaction jd3 Disposition: 18:53 Co-signature as Attending Physician, Fernandez Manzano MD. rn Disposition: 05/19/20 17:46 Discharged to Home. Impression: Other psychoactive substance dependence with withdrawal. - Condition is Stable. - Prescriptions for Klonopin 0.5 mg Oral Tablet - take 1 tablet by ORAL route every 12 hours As needed; 12 tablet. - Medication Reconciliation Form, Thank You Letter, Antibiotic Education, Prescription Opioid Use form. - Follow up: Private Physician; When: 1 - 2 days; Reason: Recheck today's complaints, Continuance of care, Re-evaluation by your physician. - Problem is new. - Symptoms have improved. Signatures: Dispatcher [employer] EDMS Fernandez Manzano MD MD rn Roszak, Josh, PA PA jr8 José Yepez RN RN jd3 Rafita Staton RN RN bp Corrections: (The following items were deleted from the chart) 17:58 17:46 05/19/2020 17:46 Discharged to Home. Impression: Other psychoactive substance jd3 dependence with withdrawal. Condition is Stable. Forms are Medication Reconciliation Form, Thank You Letter, Antibiotic Education, Prescription Opioid Use. Follow up: Private Physician; When: 1 - 2 days; Reason: Recheck today's complaints, Continuance of care, Re-evaluation by your physician. Problem is new. Symptoms have improved. jr8
--- NOTE | 2020-05-19 17:46 | ER ---
Nurse's Notes [facility] Name: Anthony Au Age: 35 yrs Sex: Male : 1985 Arrival Date: 05/19/2020 Time: 15:54 Bed 5 Private MD: Diagnosis: Other psychoactive substance dependence with withdrawal Presentation: 05/19 16:10 Chief complaint: EMS states: DETOX FROM MULTIPLE SUBSTANCES. Coronavirus screen: At bp this time, the client does not indicate any symptoms associated with coronavirus-19. Ebola Screen: No symptoms or risks identified at this time. Initial Sepsis Screen: Does the patient meet any 2 criteria? HR > 90 bpm. No. Patient's initial sepsis screen is negative. Does the patient have a suspected source of infection? No. Patient's initial sepsis screen is negative. Risk Assessment: Do you want to hurt yourself or someone else? Patient reports no desire to harm self or others. Note PT STATES LAST DRINK YESTERDAY, BUT HAS BEEN TO THIS ER 4 TIMES IN LAST THREE DAYS FOR SAME COMPLAINT. Onset of symptoms is unknown. 16:10 Method Of Arrival: EMS: [facility] bp 16:10 Acuity: MARKY 3 bp Triage Assessment: 16:13 General: Appears distressed, uncomfortable, slender, Behavior is cooperative, bp appropriate for age, agitated, anxious. Pain: Denies pain. EENT: No deficits noted. Neuro: Level of Consciousness is awake, alert, obeys commands, Oriented to person, place, time, situation, Appropriate for age DURING PT SUBJECTIVE SZ ACTIVITY HE MAINTAINS THE ABILITY TO CONVERSE. Cardiovascular: No deficits noted. Respiratory: No deficits noted. GI: No signs and/or symptoms were reported involving the gastrointestinal system. : No signs and/or symptoms were reported regarding the genitourinary system. Derm: No deficits noted. Musculoskeletal: No deficits noted. Historical: - Allergies: 16:13 No Known Allergies; bp - Home Meds: 16:13 clonazepam 2 mg Oral tab 1 tab 2 times per day [Active]; Depakote ER 500 mg Oral Tb24 2 bp tabs once daily [Active]; Latuda 80 mg Oral tab 1 tab once daily [Active]; Paxil Oral [Active]; Prozac Oral [Active]; - PMHx: 16:13 Anxiety; Asthma; Bipolar disorder; Depression; detox seizures; scalp laceration repair.;bp - Immunization history:: Adult Immunizations unknown. - Social history:: Smoking status: Patient reports the use of cigarette tobacco products, unknown amount. Screenin:14 Abuse screen: Denies threats or abuse. Denies injuries from another. Nutritional bp screening: No deficits noted. Tuberculosis screening: No symptoms or risk factors identified. Fall Risk None identified. Assessment: 16:14 General: SEE TRIAGE NOTE. bp Vital Signs: 16:00 BP 165 / 98; Pulse 110; Resp 18; Temp 98.2; Pulse Ox 98% on R/A; kj1 16:10 BP 138 / 99; Pulse 110; Resp 20; Temp 98.9; Pulse Ox 99% ; bp 17:00 BP 156 / 111; Pulse 99; Resp 12; Pulse Ox 99% ; bp ED Course: 15:54 Patient arrived in ED. iw 16:09 Rafita Staton, VINI is Primary Nurse. bp 16:12 Triage completed. bp 16:13 Arm band placed on. bp 16:14 Thomas Brennan PA is PHCP. jr8 16:14 Fernandez Manzano MD is Attending Physician. jr8 16:14 Patient has correct armband on for positive identification. Bed in low position. Call bp light in reach. Side rails up X2. progressive assembler and fitter on. Pulse ox on. NIBP on. 16:48 Inserted saline lock: 20 gauge in left antecubital area, using aseptic technique. Blood kj1 collected. 16:48 Initial lab(s) drawn, by ED staff, sent to lab. kj1 17:58 No provider procedures requiring assistance completed. IV discontinued, intact, jd3 bleeding controlled, No redness/swelling at site. Pressure dressing applied. Administered Medications: 16:45 Drug: Ringers - Lactated Ringers Solution 1000 ml Route: IV; Rate: bolus; Site: left bp antecubital; 17:59 Follow up: Response: No adverse reaction; IV Status: Completed infusion jd3 16:45 Drug: Valium 10 mg Route: IVP; Site: left antecubital; bp 17:45 Follow up: Response: No adverse reaction jd3 Outcome: 17:46 Discharge ordered by . jr8 17:58 Discharged to home ambulatory, with family. jd3 17:58 Condition: stable 17:58 Discharge instructions given to patient, Instructed on discharge instructions, follow up and referral plans. medication usage, Demonstrated understanding of instructions, follow-up care, medications, Prescriptions given X 1. 17:58 Patient left the ED. jd3 Signatures: Gabi Paulson RN RN iw Roszak, Josh, PA PA jrJosé Estrada RN RN jd3 Peltier, Brian, RN RN bp Jackson, Kandis kj1 Corrections: (The following items were deleted from the chart) 16:55 16:54 Initial lab(s) drawn, by ED staff, sent to lab. kj1 kj1
[2020-05-19 18:55] VITALS: TEMP 98.9; O2SAT 99
[2020-05-19 18:56] VITALS: BP 156/111
== END 2020-05-19 17:58 | disposition home or self-care (01) ==
LOC: ER 15:53
DX: F19.239 Other psychoactive substance dependence with withdrawal, unspecified (principal); F31.9 Bipolar disorder, unspecified; F17.210 Nicotine dependence, cigarettes, uncomplicated
CPT/HCPCS: 36415; 80048; 80076; 80307; 80320; 80329; 85025; 96365; 96375; 99284; J3360; J7120

== ENCOUNTER 2020-08-03 01:34 | Emergency (ER) | payer SELFPAY ==
--- OUTSIDE RECORDS SUMMARY | 2020-08-03 01:37 | XMS REPORT | Continuity of Care Document ---
:1985 Author Organization [facility] t Address [address] [place] [address] Dr. Lopez [address] [place] [id number] Care Team Providers Name Role Phone Unavailable Unavailable Unavailable Problems This patient has no known problems. Allergies, Adverse Reactions, Alerts This patient has no known allergies or adverse reactions. Medications This patient has no known medications. Procedures This patient has no known procedures. Results This patient has no known results.
--- NOTE | 2020-08-03 02:52 | EDPHYS ---
Physician Documentation [facility] Name: Anthony Au Age: 35 yrs Sex: Male : 1985 Arrival Date: 08/03/2020 Time: 01:36 Bed 6 Private MD: Africa Smith H ED Physician Ubaldo Chaudhari HPI: 08/03 02:46 This 35 yrs old Male presents to ER via Ambulatory with complaints of Ear Pain mh7 - swelling glands. 02:46 The patient presents with pain, mild. The complaints affect the right ear and left ear. mh7 02:47 Onset: The symptoms/episode began/occurred 1 week(s) ago. Modifying factors: The mh7 symptoms are alleviated by nothing, the symptoms are aggravated by nothing. Associated signs and symptoms: Pertinent negatives: cough, fever, lightheadedness, nausea, rhinorrhea, sinus trouble, shortness of breath, sore throat, tinnitus, vertigo, vomiting. Severity of symptoms: At their worst the symptoms were moderate 5 day(s) ago, in the emergency department the symptoms have improved markedly. Patient states that he is not sure if he was exposed to Covid when he was in [place] 2 weeks ago. he denies any fever, cough, SOB, chest pain, abdominal pain.. Historical: - Allergies: 01:43 No Known Allergies; sg - Home Meds: 01:54 ceboxone [Active]; ll2 - PMHx: 01:43 Anxiety; Asthma; Bipolar disorder; detox seizures; Depression; scalp laceration repair.;sg - Immunization history:: Adult Immunizations up to date. - Social history:: Smoking status: Patient reports the use of cigarette tobacco products. ROS: 02:47 Constitutional: Negative for fever, chills, and weight loss, Eyes: Negative for injury, mh7 pain, redness, and discharge, Cardiovascular: Negative for chest pain, palpitations, and edema, Respiratory: Negative for shortness of breath, cough, wheezing, and pleuritic chest pain, Abdomen/GI: Negative for abdominal pain, nausea, vomiting, diarrhea, and constipation, Back: Negative for injury and pain, : Negative for injury, bleeding, discharge, and swelling, MS/Extremity: Negative for injury and deformity, Skin: Negative for injury, rash, and discoloration, Neuro: Negative for headache, weakness, numbness, tingling, and seizure, Psych: Negative for depression, anxiety, suicide ideation, homicidal ideation, and hallucinations, Allergy/Immunology: Negative for hives, rash, and allergies, Endocrine: Negative for neck swelling, polydipsia, polyuria, polyphagia, and marked weight changes, Hematologic/Lymphatic: Negative for swollen nodes, abnormal bleeding, and unusual bruising. Exam: 02:47 Constitutional: This is a well developed, well nourished patient who is awake, alert, mh7 and in no acute distress. Head/Face: Normocephalic, atraumatic. Eyes: Pupils equal round and reactive to light, extra-ocular motions intact. Lids and lashes normal. Conjunctiva and sclera are non-icteric and not injected. Cornea within normal limits. Periorbital areas with no swelling, redness, or edema. ENT: Nares patent. No nasal discharge, no septal abnormalities noted. Tympanic membranes are normal and external auditory canals are clear. Oropharynx with no redness, swelling, or masses, exudates, or evidence of obstruction, uvula midline. Mucous membranes moist. Neck: Trachea midline, no thyromegaly or masses palpated, and no cervical lymphadenopathy. Supple, full range of motion without nuchal rigidity, or vertebral point tenderness. No Meningismus. Chest/axilla: Normal chest wall appearance and motion. Nontender with no deformity. No lesions are appreciated. Cardiovascular: Regular rate and rhythm with a normal S1 and S2. No gallops, murmurs, or rubs. Normal PMI, no JVD. No pulse deficits. Respiratory: Lungs have equal breath sounds bilaterally, clear to auscultation and percussion. No rales, rhonchi or wheezes noted. No increased work of breathing, no retractions or nasal flaring. Abdomen/GI: Soft, non-tender, with normal bowel sounds. No distension or tympany. No guarding or rebound. No evidence of tenderness throughout. Back: No spinal tenderness. No costovertebral tenderness. Full range of motion. Skin: Warm, dry with normal turgor. Normal color with no rashes, no lesions, and no evidence of cellulitis. MS/ Extremity: Pulses equal, no cyanosis. Neurovascular intact. Full, normal range of motion. Neuro: Awake and alert, GCS 15, oriented to person, place, time, and situation. Cranial nerves II-XII grossly intact. Motor strength 5/5 in all extremities. Sensory grossly intact. Cerebellar exam normal. Normal gait. Psych: Awake, alert, with orientation to person, place and time. Behavior, mood, and affect are within normal limits. Vital Signs: 02:01 BP 127 / 96; Pulse 77; Resp 18; Temp 98; Pulse Ox 95% on R/A; ll2 02:59 BP 121 / 70; Pulse 76; Resp 19; Pulse Ox 99% ; rr5 MDM: 02:36 Patient medically screened. 7 02:47 Differential diagnosis: otitis media, otitis externa, ruptured TM, foreign body, acute mh7 otalgia, cerumen impaction, barotrauma , serotympanum. Data reviewed: vital signs, nurses notes. Data interpreted: Pulse oximetry: on room air is 95 %. Interpretation: normal. Counseling: I had a detailed discussion with the patient and/or guardian regarding: the historical points, exam findings, and any diagnostic results supporting the discharge/admit diagnosis, the need for outpatient follow up, to return to the emergency department if symptoms worsen or persist or if there are any questions or concerns that arise at home. Refusal of service: The patient/guardian displays adequate decision making capability and despite a detailed discussion of alternatives, benefits, risks, and consequences refuses: COVID Test. Administered Medications: No medications were administered Disposition: 08/03/20 02:52 Discharged to Home. Impression: Otalgia, bilateral. - Condition is Stable. - Discharge Instructions: Earache, Adult. - Prescriptions for Ibuprofen 800 mg Oral Tablet - take 1 tablet by ORAL route every 8 hours As needed take with food; 15 tablet. - Medication Reconciliation Form, Thank You Letter, Antibiotic Education, Prescription Opioid Use form. - Follow up: Private Physician; When: 1 - 2 days; Reason: Worsening of condition, Recheck today's complaints, Continuance of care, Re-evaluation by your physician. - Problem is an ongoing problem. - Symptoms have improved. Signatures: Andrea Chatman RN RN Edwin Smith RN RN rr5 Sonya Alvarez RN RN ll2 Ubaldo Chaudhari MD MD 7 Corrections: (The following items were deleted from the chart) 03:00 02:52 08/03/2020 02:52 Discharged to Home. Impression: Otalgia, bilateral. Condition is rr5 Stable. Forms are Medication Reconciliation Form, Thank You Letter, Antibiotic Education, Prescription Opioid Use. Follow up: Private Physician; When: 1 - 2 days; Reason: Worsening of condition, Recheck today's complaints, Continuance of care, Re-evaluation by your physician. Problem is an ongoing problem. Symptoms have improved. mh7
--- NOTE | 2020-08-03 02:52 | ER ---
Nurse's Notes [facility] [place] Name: Anthony Au Age: 35 yrs Sex: Male : 1985 Arrival Date: 08/03/2020 Time: 01:36 Bed 6 Private MD: Africa Smith H Diagnosis: Otalgia, bilateral Presentation: 08/03 01:40 Acuity: MARKY 4 sg 01:40 Chief complaint: Patient states: my glands in my neck feel sumeet swollen, my ear hurts, sg well both ears hurt really. Coronavirus screen: Client denies travel out of the [place] in the last 14 days. At this time, the client does not indicate any symptoms associated with coronavirus-19. Ebola Screen: Patient negative for fever greater than or equal to 101.5 degrees Fahrenheit, and additional compatible Ebola Virus Disease symptoms Patient denies exposure to infectious person. Patient denies travel to an Ebola-affected area in the 21 days before illness onset. No symptoms or risks identified at this time. Initial Sepsis Screen: Does the patient meet any 2 criteria? No. Patient's initial sepsis screen is negative. Does the patient have a suspected source of infection? No. Patient's initial sepsis screen is negative. Risk Assessment: Do you want to hurt yourself or someone else? Patient reports no desire to harm self or others. Onset of symptoms was August 01, 2020. Transition of care: patient was not received from another setting of care. 01:40 Method Of Arrival: Ambulatory sg Triage Assessment: 01:51 General: Appears in no apparent distress. Behavior is calm, cooperative, appropriate ll2 for age. Pain: Complains of pain in right jaw and left jaw. EENT: Tympanic membrane clear on left ear and right ear. Neuro: Level of Consciousness is awake, alert, obeys commands, Oriented to person, place, time, situation. Cardiovascular: Capillary refill < 3 seconds Patient's skin is warm and dry. Respiratory: Airway is patent Respiratory effort is even, unlabored, Respiratory pattern is regular, symmetrical. GI: No signs and/or symptoms were reported involving the gastrointestinal system. : No signs and/or symptoms were reported regarding the genitourinary system. Derm: Skin is intact, is healthy with good turgor, Skin is dry, Skin is pink, warm \T\ dry. Skin temperature is warm. Musculoskeletal: Circulation, motion, and sensation intact. Range of motion: intact in all extremities. Historical: - Allergies: 01:43 No Known Allergies; sg - Home Meds: 01:54 ceboxone [Active]; ll2 - PMHx: 01:43 Anxiety; Asthma; Bipolar disorder; detox seizures; Depression; scalp laceration repair.;sg - Immunization history:: Adult Immunizations up to date. - Social history:: Smoking status: Patient reports the use of cigarette tobacco products. Screenin:52 Abuse screen: Denies threats or abuse. Nutritional screening: No deficits noted. ll2 Tuberculosis screening: No symptoms or risk factors identified. Fall Risk None identified. Assessment: 01:52 Reassessment: see triage assessment. ll2 02:41 Reassessment: Patient and/or family updated on plan of care and expected duration. Pain ll2 level reassessed. Patient is alert, oriented x 3, equal unlabored respirations, skin warm/dry/pink. 02:57 Reassessment: Patient appears in no apparent distress at this time. Patient is alert, rr5 oriented x 3, equal unlabored respirations, skin warm/dry/pink. discharge instruction given and explained without complaints made. Vital Signs: 02:01 BP 127 / 96; Pulse 77; Resp 18; Temp 98; Pulse Ox 95% on R/A; ll2 02:59 BP 121 / 70; Pulse 76; Resp 19; Pulse Ox 99% ; rr5 ED Course: 01:36 Patient arrived in ED. am2 01:36 Africa Smith DO is Private Physician. am2 01:38 Sonya Alvarez, VINI is Primary Nurse. ll2 01:40 Triage completed. sg 01:40 Arm band placed on. sg 01:53 Patient has correct armband on for positive identification. Bed in low position. Call ll2 light in reach. Side rails up X 1. Pulse ox on. NIBP on. 02:03 Ubaldo Chaudhari MD is Attending Physician. mh7 02:59 No provider procedures requiring assistance completed. Patient did not have IV access rr5 during this emergency room visit. Administered Medications: No medications were administered Outcome: 02:52 Discharge ordered by . mh7 02:59 Discharged to home ambulatory. rr5 02:59 Condition: stable 02:59 Discharge instructions given to patient, Instructed on discharge instructions, follow up and referral plans. medication usage, Demonstrated understanding of instructions, follow-up care, medications, Prescriptions given X 1. 03:00 Patient left the ED. rr5 Signatures: Andrea Chatman RN Lisa Buchanan Raymond, RN RN rr5 Sonya Alvarez RN RN 2 Ubaldo Chaudhari MD MD 7
[2020-08-03 03:20] VITALS: TEMP 98
[2020-08-03 03:22] VITALS: BP 121/70; O2SAT 99
== END 2020-08-03 03:00 | disposition home or self-care (01) ==
LOC: ER 01:34
DX: H92.03 Otalgia, bilateral (principal); Z53.29 Procedure and treatment not carried out because of patient's decision for other reasons; F31.9 Bipolar disorder, unspecified; F17.210 Nicotine dependence, cigarettes, uncomplicated
CPT/HCPCS: 99283

== ENCOUNTER 2020-09-13 01:18 | Emergency (ER) | payer SELFPAY ==
--- OUTSIDE RECORDS SUMMARY | 2020-09-13 01:20 | XMS REPORT | Continuity of Care Document ---
:1985 Author Organization [facility] t Address [address] [place] [address] Dr. Lopez [address] [place] [id number] Care Team Providers Name Role Phone Unavailable Unavailable Unavailable Problems This patient has no known problems. Allergies, Adverse Reactions, Alerts This patient has no known allergies or adverse reactions. Medications This patient has no known medications. Procedures This patient has no known procedures. Results This patient has no known results.
[2020-09-13] MEDS ORDERED: LORazepam 2 MG/ML VIAL ONE (02:04)
[2020-09-13 02:21] LABS: Urine Blood NEGATIVE (NEG); Urine Glucose NEGATIVE (NEG); Urine Protein NEGATIVE (NEG); Urine Specific Gravity 1.025 (1.005-1.030)
[2020-09-13 02:27] LABS: Absolute Lymphocytes (CBC) 2.9 K/uL (0.7-4.9); Basophils % 0.7 % (0-1.3); Lymphocytes % 18.6 % (15.3-44.8); MPV 8.7 fL (7.6-11.3); RBC Red Blood Cell Count 4.27 M/uL (4.33-5.43)
[2020-09-13 02:31] LABS: Protime INR 0.88
[2020-09-13 02:37] LABS: Barbiturates NEGATIVE (NEGATIVE); Benzodiazepines POSITIVE (NEGATIVE); Cocaine NEGATIVE (NEGATIVE); METHAMPHETAM POSITIVE (NEGATIVE); Methadone NEGATIVE (NEGATIVE); Opiates NEGATIVE (NEGATIVE); Phencyclidine NEGATIVE (NEGATIVE); THC Cannibis NEGATIVE (NEGATIVE)
[2020-09-13 02:49] LABS: ALT/SGPT 22 U/L (12-78); AST/SGOT 18 U/L (15-37); Albumin 4.2 g/dL (3.4-5.0); Alkaline Phosphatase 68 U/L (45-117); BUN Blood Urea Nitrogen 10 mg/dL (7-18); Bicarbonate 26 mmol/L (21-32); Bilirubin Direct 0.1 mg/dL (0-0.2); Bilirubin Total 0.5 mg/dL (0.2-1.0); Glucose Level 102 mg/dL (74-106); Potassium 3.4 mmol/L (3.5-5.1); Protein, Total 7.7 g/dL (6.4-8.2); Sodium Level 140 mmol/L (136-145)
[2020-09-13] MEDS ORDERED: METOPROLOL TAR 25 MG TAB ONE (02:58)
[2020-09-13] MEDS ORDERED: Ringers Lactate 1,000 ML IV ONE (02:58)
--- NOTE | 2020-09-13 03:59 | ER ---
Nurse's Notes [facility] [place] Name: Anthony Au Age: 35 yrs Sex: Male : 1985 Arrival Date: 09/13/2020 Time: 01:22 Bed 17 Private MD: Diagnosis: Adverse effect of amphetamines;Pyschosis Presentation: 09/13 01:45 Chief complaint: Patient states: i was at the backyard when i saw something moving but mg2 i dont see someone and when im about to go back to the house i saw someone close the lights at the backyard. i have history of seeing things and i was off of psych meds for 3 months (latuda) because i don't like the side effects. Coronavirus screen: Client denies travel out of the [place] in the last 14 days. At this time, the client does not indicate any symptoms associated with coronavirus-19. Ebola Screen: No symptoms or risks identified at this time. Initial Sepsis Screen: Does the patient meet any 2 criteria? No. Patient's initial sepsis screen is negative. Does the patient have a suspected source of infection? No. Patient's initial sepsis screen is negative. Risk Assessment: Do you want to hurt yourself or someone else? Patient reports no desire to harm self or others. Onset of symptoms was September 13, 2020. 01:45 Method Of Arrival: Ambulatory mg2 01:45 Acuity: MARKY 2 mg2 Historical: - Allergies: 02:06 No Known Allergies; mg2 - Home Meds: 02:06 ceboxone [Active]; Alprazolam Oral [Active]; mg2 - PMHx: 02:06 Anxiety; Asthma; Bipolar disorder; Depression; detox seizures; scalp laceration repair.;mg2 - PSHx: 02:06 None; mg2 - Immunization history:: Flu vaccine status is unknown. - Social history:: Smoking status: unknown. Screenin:12 Abuse screen: Denies threats or abuse. Denies injuries from another. Nutritional mg2 screening: No deficits noted. Tuberculosis screening: No symptoms or risk factors identified. Fall Risk IV access (20 points). Assessment: 02:12 General: Appears in no apparent distress. comfortable, Behavior is talkative. Pain: mg2 Denies pain. Neuro: Level of Consciousness is Oriented to person, place, time. Cardiovascular: Capillary refill < 3 seconds Patient's skin is warm and dry. Rhythm is sinus tachycardia. Respiratory: Airway is patent Respiratory effort is even, unlabored, Respiratory pattern is regular, symmetrical. GI: No signs and/or symptoms were reported involving the gastrointestinal system. : No signs and/or symptoms were reported regarding the genitourinary system. EENT: No signs and/or symptoms were reported regarding the EENT system. Derm: Skin is intact, is healthy with good turgor, Skin is pink, warm \T\ dry. normal. Musculoskeletal: Circulation, motion, and sensation intact. Capillary refill < 3 seconds. 03:51 Reassessment: Patient appears in no apparent distress at this time. at bedside. mg2 04:13 Reassessment: Patient appears in no apparent distress at this time. Patient states mg2 feeling better. Patient states symptoms have improved. Psych: 02:13 Subjective: Patient's mood is elevated. Objective: Patient is cooperative. mg2 Vital Signs: 01:45 BP 159 / 107; Pulse 160; Resp 18; Temp 98; Pulse Ox 100% on R/A; Weight 79.38 kg; mg2 Height 5 ft. 8 in. (172.72 cm); 02:37 Pulse 148; Resp 18; Pulse Ox 100% on R/A; mg2 03:02 BP 162 / 98; Pulse 148; Resp 18; Pulse Ox 100% on R/A; mg2 03:24 Pulse 132; Resp 18; Pulse Ox 97% on R/A; mg2 03:41 BP 163 / 106; Pulse 126; Resp 18; Pulse Ox 97% on R/A; mg2 03:52 BP 143 / 102; Pulse 111; Resp 18; Pulse Ox 100% on R/A; mg2 01:45 Body Mass Index 26.61 (79.38 kg, 172.72 cm) mg2 ED Course: 01:22 Patient arrived in ED. am2 01:34 Rafael iWlson MD is Attending Physician. tw4 01:40 Silviano Mckeon RN is Primary Nurse. mg2 02:00 Inserted saline lock: 20 gauge in left antecubital area, using aseptic technique. Blood mg2 collected. 02:05 Triage completed. mg2 02:06 Arm band placed on. mg2 02:12 No provider procedures requiring assistance completed. mg2 02:13 Patient has correct armband on for positive identification. clinical informaticist on. Pulse mg2 ox on. NIBP on. Door closed. Warm blanket given. 04:13 IV discontinued, intact, bleeding controlled, No redness/swelling at site. Pressure mg2 dressing applied. Administered Medications: 02:01 Drug: Ativan 1 mg Route: IVP; Site: left antecubital; mg2 02:38 Follow up: Response: No adverse reaction mg2 03:01 Drug: Lactated Ringers Solution 1000 ml Route: IV; Rate: 1000 bolus; Site: left mg2 antecubital; 03:02 Drug: Metoprolol 25 mg Route: PO; mg2 03:42 Follow up: Response: No adverse reaction mg2 03:51 Drug: Lopressor 5 mg Route: IVP; Site: left antecubital; mg2 Outcome: 03:59 Discharge ordered by . tw4 04:13 Discharged to home ambulatory, with family. mg2 04:13 Condition: stable 04:13 Discharge instructions given to patient, family, Instructed on discharge instructions, follow up and referral plans. medication usage, Demonstrated understanding of instructions, follow-up care, medications, Prescriptions given X 1. 04:14 Patient left the ED. mg2 Signatures: Lisa Vergara am2 Rafael Wilson MD MD tw4 Silviano Mckeon, RN RN mg2 Corrections: (The following items were deleted from the chart) 03:54 03:52 Pulse 112bpm; Resp 18bpm; Pulse Ox 100% RA; mg2 mg2
[2020-09-13] MEDS ORDERED: METOPROLOL TARTRATE 5 MG/5 ML INJ IV ONE (04:00)
--- NOTE | 2020-09-13 04:00 | EDPHYS ---
Physician Documentation [facility] [place] Name: Anthony Au Age: 35 yrs Sex: Male : 1985 Arrival Date: 09/13/2020 Time: 01:22 Bed 17 Private MD: ED Physician Rafael Wilson HPI: 09/13 02:46 This 35 yrs old Male presents to ER via Ambulatory with complaints of Psych tw4 Problem. 02:46 The patient presents to the emergency department with anxiety, paranoia. Onset: The tw4 symptoms/episode began/occurred just prior to arrival, today. Past psychiatric history: Prior diagnosis: bipolar disorder, schizophrenia. Associated signs and symptoms: The patient has no apparent associated signs or symptoms. The patient has not experienced similar symptoms in the past. Historical: - Allergies: 02:06 No Known Allergies; mg2 - Home Meds: 02:06 ceboxone [Active]; Alprazolam Oral [Active]; mg2 - PMHx: 02:06 Anxiety; Asthma; Bipolar disorder; Depression; detox seizures; scalp laceration repair.;mg2 - PSHx: 02:06 None; mg2 - Immunization history:: Flu vaccine status is unknown. - Social history:: Smoking status: unknown. ROS: 02:46 Constitutional: Negative for fever, chills, and weight loss, Eyes: Negative for injury, tw4 pain, redness, and discharge, Cardiovascular: Negative for chest pain, palpitations, and edema, Respiratory: Negative for shortness of breath, cough, wheezing, and pleuritic chest pain, Abdomen/GI: Negative for abdominal pain, nausea, vomiting, diarrhea, and constipation, Back: Negative for injury and pain, MS/Extremity: Negative for injury and deformity, Skin: Negative for injury, rash, and discoloration. 02:46 Psych: Positive for anxiety, depression, visual hallucinations. Exam: 02:50 Constitutional: This is a well developed, well nourished patient who is awake, alert, tw4 and in no acute distress. Head/Face: Normocephalic, atraumatic. Neck: Trachea midline, no thyromegaly or masses palpated, and no cervical lymphadenopathy. Supple, full range of motion without nuchal rigidity, or vertebral point tenderness. No Meningismus. Chest/axilla: Normal chest wall appearance and motion. Nontender with no deformity. No lesions are appreciated. Respiratory: Lungs have equal breath sounds bilaterally, clear to auscultation and percussion. No rales, rhonchi or wheezes noted. No increased work of breathing, no retractions or nasal flaring. Abdomen/GI: Soft, non-tender, with normal bowel sounds. No distension or tympany. No guarding or rebound. No evidence of tenderness throughout. Back: No spinal tenderness. No costovertebral tenderness. Full range of motion. MS/ Extremity: Pulses equal, no cyanosis. Neurovascular intact. Full, normal range of motion. Neuro: Awake and alert, GCS 15, oriented to person, place, time, and situation. Cranial nerves II-XII grossly intact. Motor strength 5/5 in all extremities. Sensory grossly intact. Cerebellar exam normal. Normal gait. 02:50 Cardiovascular: Rate: tachycardic, actual rate is 160 bpm, Rhythm: regular, Pulses: no pulse deficits are appreciated. Vital Signs: 01:45 BP 159 / 107; Pulse 160; Resp 18; Temp 98; Pulse Ox 100% on R/A; Weight 79.38 kg; mg2 Height 5 ft. 8 in. (172.72 cm); 02:37 Pulse 148; Resp 18; Pulse Ox 100% on R/A; mg2 03:02 BP 162 / 98; Pulse 148; Resp 18; Pulse Ox 100% on R/A; mg2 03:24 Pulse 132; Resp 18; Pulse Ox 97% on R/A; mg2 03:41 BP 163 / 106; Pulse 126; Resp 18; Pulse Ox 97% on R/A; mg2 03:52 BP 143 / 102; Pulse 111; Resp 18; Pulse Ox 100% on R/A; mg2 01:45 Body Mass Index 26.61 (79.38 kg, 172.72 cm) mg2 MDM: 01:34 Patient medically screened. tw4 07:05 Differential diagnosis: drug withdrawal. acute psychotic break. Data reviewed: vital tw4 signs, nurses notes. Data interpreted: pvc monitor: rhythm is sinus tachycardia, Pulse oximetry: Interpretation:. Counseling: I had a detailed discussion with the patient and/or guardian regarding: the historical points, exam findings, and any diagnostic results supporting the discharge/admit diagnosis, lab results. Medication response: lopressor. Response to treatment: and as a result, I will discharge patient. Special discussion: I discussed with the patient/guardian in detail that at this point there is no indication for admission to the hospital. It is understood, however, that if the symptoms persist or worsen the patient needs to return immediately for re-evaluation. 09/13 01:34 Order name: Acetaminophen; Complete Time: 03:24 09/13 03:24 Interpretation: Within normal limits: ACETA < 2.0. 09/13 01:34 Order name: Basic Metabolic Panel; Complete Time: 03:24 09/13 03:24 Interpretation: Within normal limits: K 3.4; GFR 74. 09/13 01:35 Order name: CBC with Diff; Complete Time: 03:24 09/13 03:24 Interpretation: Normal except: WBC 15.5; RBC 4.27; HGB 13.2; HCT 39.0. 09/13 01:35 Order name: ETOH Level; Complete Time: 03:24 09/13 01:35 Order name: Hepatic Function; Complete Time: 03:24 09/13 01:35 Order name: PT-INR; Complete Time: 03:24 09/13 01:35 Order name: Ptt, Activated; Complete Time: 03:24 09/13 01:35 Order name: Salicylate; Complete Time: 03:24 09/13 03:24 Interpretation: Within normal limits: RENALDO < 1.7. 09/13 01:35 Order name: Urine Drug Screen; Complete Time: 03:24 09/13 03:25 Interpretation: Normal except: BZO POSITIVE; METHAMPHETAMINE POSITIVE. 09/13 02:12 Order name: Urine Dipstick--Ancillary (enter results); Complete Time: 03:24 09/13 01:35 Order name: EKG; Complete Time: 01:35 09/13 01:35 Order name: EKG - Nurse/Tech; Complete Time: 02:01 09/13 01:35 Order name: IV Saline Lock; Complete Time: 02:01 09/13 01:35 Order name: Labs collected and sent; Complete Time: 02:01 09/13 01:35 Order name: Urine Dipstick-Ancillary (obtain specimen); Complete Time: 02:12 tw4 EC:05 Rate is 156 beats/min. Rhythm is regular. QRS [place] is Normal. DE interval is normal. tw4 QRS interval is normal. QT interval is normal. No Q waves. T waves are Normal. No ST changes noted. Clinical impression: Sinus tachycardia. Interpreted by me. Reviewed by me. Administered Medications: 02:01 Drug: Ativan 1 mg Route: IVP; Site: left antecubital; mg2 02:38 Follow up: Response: No adverse reaction mg2 03:01 Drug: Lactated Ringers Solution 1000 ml Route: IV; Rate: 1000 bolus; Site: left mg2 antecubital; 03:02 Drug: Metoprolol 25 mg Route: PO; mg2 03:42 Follow up: Response: No adverse reaction mg2 03:51 Drug: Lopressor 5 mg Route: IVP; Site: left antecubital; mg2 Disposition: 09/13/20 03:59 Discharged to Home. Impression: Adverse effect of amphetamines, Pyschosis. - Condition is Stable. - Discharge Instructions: Stimulant Use Disorder-Methamphetamines, Psychosis. - Prescriptions for Zyprexa 10 mg Oral Tablet - take 1 tablet by ORAL route once daily; 20 tablet. - Medication Reconciliation Form, Thank You Letter, Antibiotic Education, Prescription Opioid Use form. - Follow up: Private Physician; When: Upon discharge from the Emergency Department; Reason: Recheck today's complaints, Continuance of care, Re-evaluation by your physician. - Problem is new. - Symptoms have improved. Signatures: Dispatcher [employer] EDRafael Santana MD MD tw4 Silviano Mckeon RN RN mg2 Corrections: (The following items were deleted from the chart) 04:14 03:59 09/13/2020 03:59 Discharged to Home. Impression: Adverse effect of amphetamines; mg2 Pyschosis. Condition is Stable. Forms are Medication Reconciliation Form, Thank You Letter, Antibiotic Education, Prescription Opioid Use. Follow up: Private Physician; When: Upon discharge from the Emergency Department; Reason: Recheck today's complaints, Continuance of care, Re-evaluation by your physician. Problem is new. Symptoms have improved. tw4
[2020-09-16 22:38] VITALS: TEMP 98
[2020-09-16 22:44] VITALS: BP 143/102; O2SAT 100
== END 2020-09-13 04:14 | disposition home or self-care (01) ==
LOC: ER 01:18
DX: F29 Unspecified psychosis not due to a substance or known physiological condition (principal); T43.625A Adverse effect of amphetamines, initial encounter; F31.9 Bipolar disorder, unspecified
CPT/HCPCS: 36415; 80048; 80076; 80307; 80320; 80329; 81003; 85025; 85610; 85730; 93005; 96374; 96375; 99284; J7120

== ENCOUNTER 2022-03-29 09:35 | Emergency (ER) | payer SELFPAY ==
--- OUTSIDE RECORDS SUMMARY | 2022-03-29 09:39 | XMS REPORT | Continuity of Care Document ---
:1985 Author Organization [facility] t Address [address] [place] [address] Care Team Providers Name Role Phone Sudarshan Martin DO Attending Clinician Sudarshan MARTIN Attending Clinician Unavailable Doctor Unassigned, Name Attending Clinician Unavailable Physician, Primary or Family Admitting Clinician Unavailabl e Payers Payer Name Policy Type Policy Number Effective Date Expiration Date S ource Problems Condition Condition Condition Status Onset Resolution Last Treating Co mments Source Name Details Category Date Date Treatment Clinician Date No known No known Disease Unive rs active active ity of problems problems [facility] Allergies, Adverse Reactions, Alerts Allergy Allergy Status Severity Reaction(s) Onset Inactive Treating Comm ents Source Name Type Date Date Clinician No Known DA Active U [facility] 3[facility]14 [facility] s 00:00: e 00 [facility] No Known DA Active [facility] No Known DA Active U 0 [facility] Allergie 3-07 [facility] s 00:00: e 00 [facility] No Known DA Active U 0 [facility] Allergie 3-07 [facility] s 00:00: e 00 [facility] No Known DA Active U 2008-10 [facility] Intolera 0-27 [facility] 00:00: e 00 [facility] No Known DA Active U 2008-10 [facility] Intolera 0-27 [facility] 00:00: e 00 [facility] NO KNOWN Drug Active Univers ALLERGIE Class ity of S [facility] Social History Social Habit Start Date Stop Date Quantity Comments Source Exposure to Unable to assess Univers ity of SARS-CoV-2 [facility] (event) Branch Sex Assigned At [birth year] Universit y of 00:00:00 00:00:00 [facility] Smoking Status Start Date Stop Date Source Unknown if ever smoked [facility] Medications Ordered Filled Start Stop Current Ordering Indication Dosage Frequency Signature Comments Components Source Medication Medication Date Date Medication? Clinician (SIG) Name Name nicotine Yes 1{patch 1 Patch, Un adam (NICODERM) 01-31 } Topical, ity o f 21 mg/24 hr 01:00: Administer [place] patch 1 00 over 24 Medical Patch Hours, Branch Q24H, First dose on 01/30/21 at 2000, Until Discontinu ed, Routine OLANZapine No 10mg 10 mg, Univ ers ZYDIS 01-30 Oral, ity of (ZyPREXA 23:15: 23:15 ONCE, 1 [place] ZYDIS) 00 :00 dose, [facility] Medical disintegrat 01/30/21 at Bra count includes the [facility] ing tablet 1815, JONATHAN 10 mg NaCl 0.9% No 1000mL at 999 Uni vers (NS) bolus 01-30 mL/hr, ity of infusion 22:15: 23:27 1,000 mL, [place] as 1,000 mL 00 :00 IV Medical Infusion, Branch ONCE, 1 dose, [facility] 01/30/21 at 1715, JONATHAN No known [facility] Sign[facility] Vital Name Observation Time Observation Value Comments Source Systolic blood 2021-01-31 04:00:00 104 mm[Hg] Univer sity of pressure [facility] Diastolic blood 2021-01-31 04:00:00 70 mm[facility]Hg[facility] rate 2021-01-31 04:00:00 59 /min [facility] Respiratory rate 2021-01-31 04:00:00 18 /min [facility] Oxygen saturation in 2021-01-31 04:00:00 99 /min [facility] Arterial blood by [facility] Pulse oximetry Branch Body temperature 2021-01-30 21:51:00 37.22 Franci [facility] Body weight 2021-01-30 21:50:00 97.523 kg [facility] Procedures Procedure Date / Time Performing Clinician Source Performed URINE DRUG (IMMUNOASSAY) 2021-01-30 22:04:00 Shy Martin [facility] SCREEN HEPATIC FUNCTION PANEL 2021-01-30 22:03:00 [id number] (ALB,T.PRO,BILI [facility] T,BU/BC,ALT,AST,ALK PHOS) BASIC METABOLIC PANEL 2021-01-30 22:03:00 [facility] ([facility], K, CL, CO2, Medical Branch GLUCOSE, BUN, CREATININE, CA) SALICYLATE 2021-01-30 22:03:00 Shy Martin [facility] ETHANOL 2021-01-30 22:03:00 Shy Martin [facility] CBC WITH DIFF 2021-01-30 22:03:00 Shy Martin [facility] URINALYSIS 2021-01-30 22:02:00 Shy Martin [facility] COVID-19 (ID NOW RAPID 2021-01-30 22:02:00 Shy Martin [facility] TESTING) Medical Branch NOTICE OF PRIVACY 2021-01-30 21:37:21 Doctor Unassigned, No Univ [facility] PRACTICES Name Medical Branch CONSENT/REFUSAL FOR 2021-01-30 21:37:00 Doctor Un[facility]igned, [facility] Name [facility] Encounters Start End Encounter Admission Attending Care Care Encounter Source Date/Time Date/Time Type Type Clinicians Facility Department ID 2020-12-14 Inpatient [facility]AB[facility]J [id number] [facility] 08:08:00 [id number] [facility] 2020-12-13 Inpatient [facility]AB[facility] LJ [id number] [facility] 19:49:00 [id number] [facility] 2020-12-06 Inpatient HCABM LJ [id number] [facility] 14:01:00 [id number] [facility] 2021-01-30 2021-01-30 Emergency LILLIE Martin [id number] Univers 16:48:00 23:59:00 Shy Alcantara [id number] ity of [place] [id number] [facility] [id number] [facility] 084 Branch 2021-01-30 2021-01-30 Emergency X VERONICA, [facility] ERT [id number] Univers 16:48:00 16:48:00 SHY ity [facility] 2021-01-30 2021-01-30 Orders Doctor JAKE [id number] Univers 00:00:00 00:00:00 Only Unassigned, ESTEFANY [id number] ity of [place] [facility] [id number] [facility] [id number] [facility] 009 Branch 2020-03-03 2020-03-03 Emergency X [facility] ERT [id number] Univers 09:37:00 09:37:00 [facility] Results Test Description Test Time Test Comments Results Result Comments Source SALICYLATE 2021-01-30 23:16:25 Test Item Value Reference Range Interpretation Comme nts SALICYLATE (test code = 7792200988) <10 mg/L TRACY (test code = TRACY) Therapeutic Range: ? Analgesic and Antipyretic Use ? 20-100 mg/L ? ? Anti-Inflammatory Use ? 100-250 mg/L Toxic Range: ? Greater than 300 mg/L [facility] 23:16:15 Test Item Value Reference Range Interpretation Comments ALCOHOL (test code = <10 mg/dL 7588874378) TRACY (test code = TRACY) <10 [id number] Toxic>100 Depression of VOCATIONAL ADVISER>400 Fatalities Reported [facility]2021-[facility]-01 23:16:10 Test Item Value Reference Range Interpretation Comments ACETAMINOP (test code = <10.0 10.0-30.0 L 3663656040) TRACY (test code = TRACY) Toxic: Greater than 200 ug/mL @ 4 hour post ingestion or greater than 50 ug/mL @ 12 hour post ingestion Lab Interpretation (test Abnormal code = 91814-1) [facility] (ALB, T.PRO, BILI T, BU/BC, ALT, AST, ALK PHOS)2021-01-30 23:14:14 Test Item Value Reference Range Interpretation Comments TOTAL BILI (test code = 9158028687) 0.8 mg/dL 0.1-1.1 BILI UNCON (test code = 5613331182) 0.6 mg/dL 0.1-1.1 BILI CONJ (test code = 3678699961) 0.0 mg/dL 0.0-0.3 T PROTEIN (test code = 7875740357) 7.5 g/dL 6.3-8.2 ALBUMIN (test code = 2383235995) 4.8 g/dL 3.5-5.0 ALK PHOS (test code = 6148314040) 63 U/L 34-122 ALTv (test code = 1742-6) 33 U/L 5-50 AST(SGOT) (test code = 6594706830) 36 U/L 13-40 Lab Interpretation (test code = Normal 80590-1) [facility] Metabolic Panel (NA, K, CL, CO2, GLUCOSE, BUN, CREATININE, CA)2021-01-30 23:13:54 Test Item Value Reference Range Interpretation Comments NA (test code = 142 mmol/L 135-145 2102523677) K (test code = 4.3 mmol/L 3.5-5.0 7786335805) CL (test code = 105 mmol/L 98-108 0509568136) CO2 TOTAL (test code 25 mmol/L 23-31 = 1054780337) AGAP (test code = 2-16 7524066875) BUN (test code = 17 mg/dL 7-23 1431240941) GLUCOSE (test code = 86 mg/dL 70-110 7813302172) CREATININE (test code 0.85 mg/dL 0.60-1.25 = 6639387247) CALCIUM (test code = 9.9 mg/dL 8.6-10.6 3478417274) eGFR (test code = mL/min/1.73m2 8056710919) TRACY (test code = TRACY) Association of Glomerular Filtration Rate (GFR) and Staging of Kidney Disease* + + +- +| GFR (mL/min/1.73 m2) ?| With Kidney Damage ?| ?Without Kidney Damage+ ------+ ----+ ------+| ?>90 ?| ?Stage one ?| ? Normal ?+ -+ + -+| ?60-89 ?| ?Stage two ?| ? Decreased GFR ? + + +- +| ?30-59 ?| ?Stage three ?| ? Stage three ? + + +- +| ?15-29 ?| ?Stage four ? | ? Stage four ?+ -+ + -+| ?<15 (or dialysis) ? ?| ?Stage five ? | ? Stage five ?+ -+ + -+ *Each stage assumes the associated GFR level has been in effect for at least three months. ?Stages 1 to 5, with or without kidney disease, indicate chronic kidney disease. Notes: Determination of stages one and two (with eGFR >59mL/min/1.73 m2) requires estimation of kidney damage for at least three months as defined by structural or functional abnormalities of the kidney, manifested by either:Pathological abnormalities or Markers of kidney damage (including abnormalities in the composition of the blood or urine or abnormalities in imaging tests). [facility] (IMMUNOASSAY) - COMPREHENSIVE DRUG [id number] 23:05:57 Test Item Value Reference Range Interpretation Comments AMPHET (test code = Presumptive Positive Negative A 4137918993) CHACORTA U (test code = Negative Negative 6314167784) BENZO U (test code = Presumptive Positive Negative A 2261687749) Cocaine Metabolite (test Negative Negative code = 9048333171) METHADONE (test code = Negative Negative 8711293850) OPIATES (test code = Presumptive Positive Negative A 2049243040) PCP (test code = Negative Negative 5768027386) THC (test code = Presumptive Positive Negative A 2935191170) TRACY (test code = TRACY) Urine Drug Cutoff Ranges Cocaine: ? 150 ng/mLBenzodiazepines: ? ? 200 ng/mLMethadone: ? 300 ng/mLAmphetamine: ? 1,000 ng/mLOpiates: ? 300 ng/mLCannabinoids: ?50 ng/mLPhencyclidine: ? ? ? 25 ng/mLBarbiturates: ?200 ng/mL The results are to be used only for medical (i.e., treatment) purposes. Unconfirmed screening results must not be used for non-medical purposes (e.g., employment testing, legal testing). Lab Interpretation (test Abnormal code = 23507-8) [facility] (ID NOW RAPID TESTING)2021-01-30 22:34:55 Test Item Value Reference Range Interpretation Comments SARS-CoV-2 Rapid ID NOW Not Detected Not Detected (test code = 75009-5) TRACY (test code = TRACY) ID NOW COVID-19 Assay is an isothermal nucleic acid amplification test intended for the qualitative detection of nucleic acid from SARS-CoV-2 viral RNA in nasopharyngeal (THEATRE PROGRAM DIRECTOR) specimens. It is used under Emergency Use Authorization (EUA) by FDA. The limit of detection (LOD) of the assay is 125 Genome Equivalents/mL. A positive result is indicative of the presence of SARS-CoV-2 RNA. ?Clinical correlation with patient history and other diagnostic information is necessary to determine patient infection status. A negative (Not Detected) result does not preclude SARS-CoV-2 infection. In patients with clinical symptoms and other tests that are consistent with SARS-CoV-2 infection, negative results should be treated as presumptive negative and a new specimen should be tested with alternative PCR molecular test. Invalid: Please collect a new specimen for repeat patient testing if clinically indicated. Lab Interpretation Normal (test code = 20777-4) [facility] TexasUrinalysis2021-05-01 22:30:19 Test Item Value Reference Range Interpretation Comments APPEARANCE (test code = Clear Clear 2242935281) COLOR (test code = Yellow Yellow 4788528984) PH (test code = 4.8-8.0 6164821314) SP GRAVITY (test code = 1.003-1.030 6181744668) GLU U QUAL (test code = Normal Normal 7118655071) BLOOD (test code = Negative Negative 3261216542) KETONES (test code = Negative Negative 5289929595) PROTEIN (test code = Negative Negative 2887-8) UROBILIN (test code = 2.0 mg/dL Normal A 6524990985) BILIRUBIN (test code = Negative Negative 0839567376) NITRITE (test code = Negative Negative 5784957169) LEUK DIONE (test code = Negative Negative 7833665033) RBC/HPF (test code = See_Comment [Autom ated message] 0497410460) The system [employer] generated this result transmit delroy reference range : 0 - 3 HPF. The refe rence range was not u sed to interpret th is result as normal/abnormal . WBC/HPF (test code = <1 See_Comment [Autom ated message] 8839801669) The system [employer] generated this result transmit delroy reference range : 0 - 5 HPF. The refe rence range was not u sed to interpret th is result as normal/abnormal . BACTERIA (test code = Negative Negative 8856368696) SQ EPITH (test code = <1 HPF 2780304015) Lab Interpretation (test Abnormal code = 74971-3) [facility] with [id number] 22:19:35 Test Item Value Reference Range Interpretation Comments WBC (test code = See_Comment H [Automated 6690-2) message] The sy stem which generated this result transmitted reference range : 4.20 - 10.70 10*3/?L. The reference range was not used to interpret this result as normal/abnormal . RBC (test code = See_Comment [Automated 789-8) message] The sy stem which generated this result transmitted reference range : 4.26 - 5.52 10*6/?L. The reference range was not used to interpret this result as normal/abnormal . HGB (test code = 14.0 g/dL 12.2-16.4 718-7) HCT (test code = 40.5 % 38.4-49.3 4544-3) MCV (test code = 87.9 fL 81.7-95.6 787-2) MCH (test code = 30.4 pg 26.1-32.7 785-6) MCHC (test code = 34.6 g/dL 31.2-35.0 786-4) RDW-SD (test code = 42.8 fL 38.5-51.6 83581-5) RDW-CV (test code = 13.3 % 12.1-15.4 788-0) PLT (test code = See_Comment H [Automated 777-3) message] The sy stem which generated this result transmitted reference range : 150 - 328 10*3/ ?L. The reference r maru was not used to interpret this result as normal/abnormal . MPV (test code = 9.9 fL 9.8-13.0 55776-3) NRBC/100 WBC (test See_Comment [Automat ed code = 1655108234) message] The system which generated this result transmitted reference range : 0.0 - 10.0 /100 WBCs. The refer ence range was not u sed to interpret th is result as normal/abnormal . NRBC x10^3 (test code <0.01 See_Comment [Auto mated = 4379055509) message] The s ystem which generated this result transmitted reference range : 10*3/?L. The reference range was not used to interpret this result as normal/abnormal . GRAN MAT (NEUT) % 79.2 % (test code = 770-8) IMM GRAN % (test code 0.50 % = 5300179426) LYMPH % (test code = 14.8 % 736-9) MONO % (test code = 4.9 % 5905-5) EOS % (test code = 0.2 % 713-8) BASO % (test code = 0.4 % 706-2) GRAN MAT x10^3(ANC) 9.77 10*3/uL 1.99-6.95 H (test code = 2933160186) IMM GRAN x10^3 (test 0.06 10*3/uL 0.00-0.06 code = 4917326413) LYMPH x10^3 (test code 1.82 10*3/uL 1.09-3.23 = 731-0) MONO x10^3 (test code 0.60 10*3/uL 0.36-1.02 = 742-7) EOS x10^3 (test code = 0.03 10*3/uL 0.06-0.53 L 711-2) BASO x10^3 (test code 0.05 10*3/uL 0.01-0.09 = 704-7) Lab Interpretation Abnormal (test code = 99168-3) [facility] [id number] 20:48:00 Test Item Value Reference Range Interpretation Comments COVID 19 INHOUSE AG (test code = NEGATIVE [id number]) URINALYSIS [id number] 16:11:00 Test Item Value Reference Range Interpretation Comments UA COLOR (test code = Light-Yellow YELLOW COLU) UA APPEARANCE (test code CLEAR CLEAR = APPU) UA GLUCOSE DIPSTICK (test NEGATIVE mg/dL NEGATIVE code = DGLUU) UA BILIRUBIN DIPSTICK NEGATIVE mg/dL NEGATIVE (test code = BILU) UA KETONE DIPSTICK (test NEGATIVE mg/dL NEGATIVE code = KETU) UA SPECIFIC GRAVITY (test 1.014 1.001-1.035 code = SGU) UA BLOOD DIPSTICK (test Negative mg/dL NEGATIVE code = DAVON) UA PH DIPSTICK (test code 7.0 5.0-8.0 = ADRIANO) UA PROTEIN DIPSTICK (test NEGATIVE mg/dL NEGATIVE code = PROU) UA UROBILINIOGEN DIPSTICK Normal mg/dL NEGATIVE (test code = URO) UA NITRITE DIPSTICK (test NEGATIVE NEGATIVE code = CLARISSE) UA LEUKOCYTE ESTERASE W NEGATIVE Matt/uL NEGATIVE REFLEX (test code = LEUUR) UA WBC (test code = WBCU) 0-5 per HPF 0-5 UA RBC (test code = RBCU) 0-3 #/HPF 0-5 UA EPITHELIAL CELLS (test Few (2-5/hpf) per FEW code = EPIU) HPF UA BACTERIA (test code = FEW #/HPF NONE A BACU) UA MUCUS (test code = FEW #/LPF FEW MUCU) Urine Source? Clean CatchDRUGS OF ABUSE SCREEN [id number] 16:11:00 Test Item Value Reference Range Interpretation Comments URN COCAINE (test code = NEGATIVE See_Comment [A utomated message] COCAURN) The system whic h generated this result transmitted ref erence range: <300 ng/ mL. The reference r maru was not used to interpret this result as normal/abnor mal. URN CANNABINOIDS (test NEGATIVE See_Comment [Aut omated message] code = CANNABURN) The system which generated this result transmitted ref erence range: <50 ng/m L. The reference range was not used to int erpret this result as normal/abnormal . URN AMPHETAMINE (test NEGATIVE See_Comment [Auto mated message] code = AMPHETURN) The system which generated this result transmitted ref erence range: <1000 ng /mL. The reference r maru was not used to interpret this result as normal/abnor mal. URN BARBITURATE (test NEGATIVE See_Comment [Auto mated message] code = BARBITURN) The system which generated this result transmitted ref erence range: <200 ng/ mL. The reference r maru was not used to interpret this result as normal/abnor mal. URN BENZODIAZEPINE (test POSITIVE See_Comment [A utomated message] code = BENZOURN) The system which generated this result transmitted ref erence range: <200 ng/ mL. The reference r maru was not used to interpret this result as normal/abnor mal. URN OPIATES (test code = NEGATIVE See_Comment [A utomated message] OPIATURN) The system [employer] generated this result transmitted ref erence range: <300 ng/ mL. The reference r maru was not used to interpret this result as normal/abnor mal. URN PHENCYCLIDINE (PCP) NEGATIVE See_Comment [Au tomated message] (test code = PHENCURN) The s ystem which generated this result transmitted ref erence range: <25 ng/m L. The reference range was not used to int erpret this result as normal/abnormal . URN METHADONE (test code NEGATIVE See_Comment [A utomated message] = METHAURN) The system [employer] generated this result transmitted ref erence range: <300 ng/ mL. The reference r maru was not used to interpret this result as normal/abnor mal. Urine Source? Clean CatchURINALYSIS [id number] 15:45:00 Test Item Value Reference Range Interpretation Comments UA COLOR (test code = Light-Yellow YELLOW COLU) UA APPEARANCE (test code CLEAR CLEAR = APPU) UA GLUCOSE DIPSTICK (test NEGATIVE mg/dL NEGATIVE code = DGLUU) UA BILIRUBIN DIPSTICK NEGATIVE mg/dL NEGATIVE (test code = BILU) UA KETONE DIPSTICK (test NEGATIVE mg/dL NEGATIVE code = KETU) UA SPECIFIC GRAVITY (test 1.014 1.001-1.035 code = SGU) UA BLOOD DIPSTICK (test Negative mg/dL NEGATIVE code = DAVON) UA PH DIPSTICK (test code 7.0 5.0-8.0 = ADRIANO) UA PROTEIN DIPSTICK (test NEGATIVE mg/dL NEGATIVE code = PROU) UA UROBILINIOGEN DIPSTICK Normal mg/dL NEGATIVE (test code = URO) UA NITRITE DIPSTICK (test NEGATIVE NEGATIVE code = CLARISSE) UA LEUKOCYTE ESTERASE W NEGATIVE Matt/uL NEGATIVE REFLEX (test code = LEUUR) UA WBC (test code = WBCU) 0-5 per HPF 0-5 UA RBC (test code = RBCU) 0-3 #/HPF 0-5 UA EPITHELIAL CELLS (test Few (2-5/hpf) per FEW code = EPIU) HPF UA BACTERIA (test code = FEW #/HPF NONE A BACU) UA MUCUS (test code = FEW #/LPF FEW MUCU) Urine Source? Clean CatchDRUGS OF ABUSE SCREEN [id number] 15:45:00 Test Item Value Reference Range Interpretation Comments URN COCAINE (test code = NEGATIVE See_Comment [A utomated message] COCAURN) The system [employer] generated this result transmitted ref erence range: <300 ng/ mL. The reference r maru was not used to interpret this result as normal/abnor mal. URN CANNABINOIDS (test NEGATIVE See_Comment [Aut omated message] code = CANNABURN) The system which generated this result transmitted ref erence range: <50 ng/m L. The reference range was not used to int erpret this result as normal/abnormal . URN AMPHETAMINE (test NEGATIVE See_Comment [Auto mated message] code = AMPHETURN) The system which generated this result transmitted ref erence range: <1000 ng /mL. The reference r maru was not used to interpret this result as normal/abnor mal. URN BARBITURATE (test NEGATIVE See_Comment [Auto mated message] code = BARBITURN) The system which generated this result transmitted ref erence range: <200 ng/ mL. The reference r maru was not used to interpret this result as normal/abnor mal. URN BENZODIAZEPINE (test POSITIVE See_Comment [A utomated message] code = BENZOURN) The system which generated this result transmitted ref erence range: <200 ng/ mL. The reference r maru was not used to interpret this result as normal/abnor mal. URN OPIATES (test code = See_Comment [A utomated message] OPIATURN) The system [employer] generated this result transmitted ref erence range: <300 ng/ mL. The reference r maru was not used to interpret this result as normal/abnor mal. URN PHENCYCLIDINE (PCP) NEGATIVE See_Comment [Au tomated message] (test code = PHENCURN) The s ystem which generated this result transmitted ref erence range: <25 ng/m L. The reference range was not used to int erpret this result as normal/abnormal . URN METHADONE (test code NEGATIVE See_Comment [A utomated message] = METHAURN) The system [employer] generated this result transmitted ref erence range: <300 ng/ mL. The reference r maru was not used to interpret this result as normal/abnor mal. Urine Source? Clean CatchURINALYSIS [id number] 14:21:00 Test Item Value Reference Range Interpretation Comments UA COLOR (test code = Light-Yellow YELLOW COLU) UA APPEARANCE (test code CLEAR CLEAR = APPU) UA GLUCOSE DIPSTICK (test NEGATIVE mg/dL NEGATIVE code = DGLUU) UA BILIRUBIN DIPSTICK NEGATIVE mg/dL NEGATIVE (test code = BILU) UA KETONE DIPSTICK (test NEGATIVE mg/dL NEGATIVE code = KETU) UA SPECIFIC GRAVITY (test 1.014 1.001-1.035 code = SGU) UA BLOOD DIPSTICK (test Negative mg/dL NEGATIVE code = DAVON) UA PH DIPSTICK (test code 7.0 5.0-8.0 = ADRIANO) UA PROTEIN DIPSTICK (test NEGATIVE mg/dL NEGATIVE code = PROU) UA UROBILINIOGEN DIPSTICK Normal mg/dL NEGATIVE (test code = URO) UA NITRITE DIPSTICK (test NEGATIVE NEGATIVE code = CLARISSE) UA LEUKOCYTE ESTERASE W NEGATIVE Matt/uL NEGATIVE REFLEX (test code = LEUUR) UA WBC (test code = WBCU) 0-5 per HPF 0-5 UA RBC (test code = RBCU) 0-3 #/HPF 0-5 UA EPITHELIAL CELLS (test Few (2-5/hpf) per FEW code = EPIU) HPF UA BACTERIA (test code = FEW #/HPF NONE A BACU) UA MUCUS (test code = FEW #/LPF FEW MUCU) Urine Source? Clean CatchDRUGS OF ABUSE SCREEN [id number] 14:21:00 Test Item Value Reference Range Interpretation Comments URN COCAINE (test code = See_Comment [A utomated message] COCAURN) The system [employer] generated this result transmitted ref erence range: <300 ng/ mL. The reference range was not used to int erpret this result as normal/abnormal . URN CANNABINOIDS (test See_Comment [Aut omated message] code = CANNABURN) The system which generated this result transmitted ref erence range: <50 ng/m L. The reference range was not used to int erpret this result as normal/abnormal . URN AMPHETAMINE (test code See_Comment [Automated message] = AMPHETURN) The system [employer] generated this result transmitted ref erence range: <1000 ng /mL. The reference r maru was not used to interpret this result as normal/abnor mal. URN BARBITURATE (test code See_Comment [Automated message] = BARBITURN) The system [employer] generated this result transmitted ref erence range: <200 ng/ mL. The reference range was not used to int erpret this result as normal/abnormal . URN BENZODIAZEPINE (test See_Comment [A utomated message] code = BENZOURN) The system which generated this result transmitted ref erence range: <200 ng/ mL. The reference range was not used to int erpret this result as normal/abnormal . URN OPIATES (test code = See_Comment [A utomated message] OPIATURN) The system [employer] generated this result transmitted ref erence range: <300 ng/ mL. The reference range was not used to int erpret this result as normal/abnormal . URN PHENCYCLIDINE (PCP) See_Comment [Au tomated message] (test code = PHENCURN) The s ystem which generated this result transmitted ref erence range: <25 ng/m L. The reference range was not used to int erpret this result as normal/abnormal . URN METHADONE (test code = See_Comment [Automated message] METHAURN) The system [employer] generated this result transmitted ref erence range: <300 ng/ mL. The reference range was not used to int erpret this result as normal/abnormal . Urine Source? Clean CatchURINALYSIS [id number] 14:18:00 Test Item Value Reference Range Interpretation Comments UA COLOR (test code = COLU) Light-Yellow YELLOW UA APPEARANCE (test code = CLEAR CLEAR APPU) UA GLUCOSE DIPSTICK (test NEGATIVE mg/dL NEGATIVE code = DGLUU) UA BILIRUBIN DIPSTICK (test NEGATIVE mg/dL NEGATIVE code = BILU) UA KETONE DIPSTICK (test code NEGATIVE mg/dL NEGATIVE = KETU) UA SPECIFIC GRAVITY (test 1.014 1.001-1.035 code = SGU) UA BLOOD DIPSTICK (test code Negative mg/dL NEGATIVE = DAVON) UA PH DIPSTICK (test code = 7.0 5.0-8.0 ADRIANO) UA PROTEIN DIPSTICK (test NEGATIVE mg/dL NEGATIVE code = PROU) UA UROBILINIOGEN DIPSTICK Normal mg/dL NEGATIVE (test code = URO) UA NITRITE DIPSTICK (test NEGATIVE NEGATIVE code = CLARISSE) UA LEUKOCYTE ESTERASE W NEGATIVE Matt/uL NEGATIVE REFLEX (test code = LEUUR) UA WBC (test code = WBCU) per HPF 0-5 UA RBC (test code = RBCU) per HPF 0-5 UA EPITHELIAL CELLS (test per HPF Few code = EPIU) UA BACTERIA (test code = per HPF NONE BACU) Urine Source? Clean CatchDRUGS OF ABUSE SCREEN [id number] 14:18:00 Test Item Value Reference Range Interpretation Comments URN COCAINE (test code = See_Comment [A utomated message] COCAURN) The system [employer] generated this result transmitted ref erence range: <300 ng/ mL. The reference range was not used to int erpret this result as normal/abnormal . URN CANNABINOIDS (test See_Comment [Aut omated message] code = CANNABURN) The system which generated this result transmitted ref erence range: <50 ng/m L. The reference range was not used to int erpret this result as normal/abnormal . URN AMPHETAMINE (test code See_Comment [Automated message] = AMPHETURN) The system [employer] generated this result transmitted ref erence range: <1000 ng /mL. The reference r maru was not used to interpret this result as normal/abnor mal. URN BARBITURATE (test code See_Comment [Automated message] = BARBITURN) The system [employer] generated this result transmitted ref erence range: <200 ng/ mL. The reference range was not used to int erpret this result as normal/abnormal . URN BENZODIAZEPINE (test See_Comment [A utomated message] code = BENZOURN) The system which generated this result transmitted ref erence range: <200 ng/ mL. The reference range was not used to int erpret this result as normal/abnormal . URN OPIATES (test code = See_Comment [A utomated message] OPIATURN) The system [employer] generated this result transmitted ref erence range: <300 ng/ mL. The reference range was not used to int erpret this result as normal/abnormal . URN PHENCYCLIDINE (PCP) See_Comment [Au tomated message] (test code = PHENCURN) The s ystem which generated this result transmitted ref erence range: <25 ng/m L. The reference range was not used to int erpret this result as normal/abnormal . URN METHADONE (test code = See_Comment [Automated message] METHAURN) The system [employer] generated this result transmitted ref erence range: <300 ng/ mL. The reference range was not used to int erpret this result as normal/abnormal . Urine Source? Clean CatchBASIC METABOLIC [id number] 12:13:00 Test Item Value Reference Range Interpretation Comments SODIUM (test code = 139 mmol/L 136-145 RESULT V ERIFIED BY NA) REPEAT ANALYSIS POTASSIUM (test code 4.2 mmol/L 3.5-5.1 N = K) CHLORIDE (test code 104.0 mmol/L 98-107 N = CL) CARBON DIOXIDE (test 30.0 mmol/L 21-32 N code = CO2) ANION GAP (test code 9.2 10-20 L = GAP) GLUCOSE (test code = 74 mg/dL 74-106 N GLU) BLOOD UREA NITROGEN 17 mg/dL 7-18 N (test code = BUN) GLOMERULAR > 60 mL/min See_Comment Estimated GFR b y FILTRATION RATE using Modifi ed MDRD (test code = GFR) formula.Ch ronic kidney disease is defined as eith er kidney damageor GFR <60 mL/min/1.73 m2 for >3 months. [Automated mess age] The system [employer] generated this result transmitted ref erence range: >=60. Th e reference range was not used to int erpret this result as normal/abnormal . CREATININE (test 1.00 mg/dL 0.7-1.3 N code = CREAT) BUN/CREATININE RATIO 17.3 10-20 N (test code = BUN/CREA) CALCIUM (test code = 9.9 mg/dL 8.5-10.1 N CA) HEPATIC FUNCTION [id number] 12:13:00 Test Item Value Reference Range Interpretation Comments TOTAL PROTEIN (test 8.2 gram/dL 6.4-8.2 N code = PROT) ALBUMIN (test code = 4.7 g/dL 3.4-5.0 N ALB) GLOBULIN (test code = 3.5 gram/dL 2.7-4.2 N GLOB) ALBUMIN/GLOBULIN RATIO 1.3 0.75-1.50 N (test code = A/G) BILIRUBIN TOTAL (test 0.80 mg/dL 0.0-1.0 N code = BILT) BILIRUBIN DIRECT (test 0.20 mg/dL 0.0-0.20 N code = BILD) SGOT/AST (test code = 50 IUnit/L 15-37 H AST) SGPT/ALT (test code = 63 IUnit/L 12-78 N ALT) ALKALINE PHOSPHATASE 73 IUnit/L 45-117 N Note change in TOTAL (test code = reference range due ALKP) to change in reagent. [id number] 12:13:00 Test Item Value Reference Range Interpretation Comments ACETAMINOPHEN (test < 10 mcg/mL 10-30 L A RANGE OF 10-30 code = ACET) mcg/mL IS A THERAPEUTIC RAN GE. TOXIC CONCENTRATIONS: >150 mcg/mL AT 4 ANTONIO RS AFTER INGESTION >= 50 mcg/mL AT 12 HOURS AFTER INGESTION [id number] 12:13:00 Test Item Value Reference Range Interpretation Comments SALICYLATE (test code = RENALDO) < 3.0 mg/dL 2.8-20.0 N [id number] 12:13:00 Test Item Value Reference Range Interpretation Comments ALCOHOL (test code < 3 mg/dL 0.0-3.0 N --------- --------INTERPRE = ALC) TIVE DATA NOTE: POSITIVE SCREEN ING RESULTS SHOULD BE CONSIDERED PRESUMPTIVE.WHE N COLLECTED FOR M EDICAL PURPOSES ONLY. SPECIMEN WILL NOTBE RAMA ECTED BY CHAIN OF CUSTOD Y.IF A CONFIRMATION OF POSITIVE RESULTS IS JAIMEE RED, ACONFIRMATION T EST MUST BE REQUESTED BY THE PHYSICIAN AT AN ADDITIONAL CHARGE TO THE P ATIENT. CBC W/O [id number] 11:49:00 Test Item Value Reference Range Interpretation Comments WHITE BLOOD CELL (test code = 8.8 K/mm3 4.5-12.5 N WBC) RED BLOOD CELL (test code = 4.92 mill/mm3 4.0-5.8 N RBC) HEMOGLOBIN (test code = HGB) 14.8 gram/dL 13.0-17.5 N HEMATOCRIT (test code = HCT) 45.7 % 42.0-52.0 N MEAN CELL VOLUME (test code = 92.9 fL 80-98 N MCV) MEAN CELL HGB (test code = MCH) 30.1 picogram 27.0-33.0 N MEAN CELL HGB CONCETRATION 32.4 gram/dL 33.0-36.0 L (test code = MCHC) RED CELL DISTRIBUTION WIDTH 14.3 % 11.6-16.2 N (test code = RDW) PLATELET COUNT (test code = 300 K/mm3 150-450 N PLT) MEAN PLATELET VOLUME (test code 9.7 fL 6.7-11.0 N = MPV) COVID 19 INHOUSE [id number] 00:12:00 Test Item Value Reference Range Interpretation Comments COVID 19 INHOUSE AG (test code = NEGATIVE [id number]) URINALYSIS [id number] 20:58:00 Test Item Value Reference Range Interpretation Comments UA COLOR (test code = COLU) Light-Yellow YELLOW UA APPEARANCE (test code = CLEAR CLEAR APPU) UA GLUCOSE DIPSTICK (test NEGATIVE mg/dL NEGATIVE code = DGLUU) UA BILIRUBIN DIPSTICK (test NEGATIVE mg/dL NEGATIVE code = BILU) UA KETONE DIPSTICK (test code NEGATIVE mg/dL NEGATIVE = KETU) UA SPECIFIC GRAVITY (test 1.014 1.001-1.035 code = SGU) UA BLOOD DIPSTICK (test code Negative mg/dL NEGATIVE = DAVON) UA PH DIPSTICK (test code = 6.5 5.0-8.0 ADRIANO) UA PROTEIN DIPSTICK (test NEGATIVE mg/dL NEGATIVE code = PROU) UA UROBILINIOGEN DIPSTICK Normal mg/dL NEGATIVE (test code = URO) UA NITRITE DIPSTICK (test NEGATIVE NEGATIVE code = CLARISSE) UA LEUKOCYTE ESTERASE W NEGATIVE Matt/uL NEGATIVE REFLEX (test code = LEUUR) UA WBC (test code = WBCU) 0-5 per HPF 0-5 UA RBC (test code = RBCU) 0-2 #/HPF 0-5 UA EPITHELIAL CELLS (test FEW per HPF FEW code = EPIU) UA BACTERIA (test code = NONE SEEN #/HPF NONE BACU) UA MUCUS (test code = MUCU) FEW #/LPF FEW Urine Source? Clean CatchDRUGS OF ABUSE SCREEN [id number] 20:58:00 Test Item Value Reference Range Interpretation Comments URN COCAINE (test code = NEGATIVE See_Comment [A utomated message] COCAURN) The system [employer] generated this result transmitted ref erence range: <300 ng/ mL. The reference r maru was not used to interpret this result as normal/abnor mal. URN CANNABINOIDS (test NEGATIVE See_Comment [Aut omated message] code = CANNABURN) The system which generated this result transmitted ref erence range: <50 ng/m L. The reference range was not used to int erpret this result as normal/abnormal . URN AMPHETAMINE (test NEGATIVE See_Comment [Auto mated message] code = AMPHETURN) The system which generated this result transmitted ref erence range: <1000 ng /mL. The reference r maru was not used to interpret this result as normal/abnor mal. URN BARBITURATE (test NEGATIVE See_Comment [Auto mated message] code = BARBITURN) The system which generated this result transmitted ref erence range: <200 ng/ mL. The reference r maru was not used to interpret this result as normal/abnor mal. URN BENZODIAZEPINE (test POSITIVE See_Comment [A utomated message] code = BENZOURN) The system which generated this result transmitted ref erence range: <200 ng/ mL. The reference r maru was not used to interpret this result as normal/abnor mal. URN OPIATES (test code = NEGATIVE See_Comment [A utomated message] OPIATURN) The system [employer] generated this result transmitted ref erence range: <300 ng/ mL. The reference r maru was not used to interpret this result as normal/abnor mal. URN PHENCYCLIDINE (PCP) NEGATIVE See_Comment [Au tomated message] (test code = PHENCURN) The s [employer]stem which generated this result transmitted ref erence range: <25 ng/m L. The reference range was not used to int erpret this result as normal/abnormal . URN METHADONE (test code NEGATIVE See_Comment [A utomated message] = METHAURN) The system [employer] generated this result transmitted ref erence range: <300 ng/ mL. The reference r maru was not used to interpret this result as normal/abnor mal. Urine Source? Clean CatchBASIC METABOLIC [id number] 20:58:00 Test Item Value Reference Range Interpretation Comments SODIUM (test code = 134 mmol/L 136-145 L NA) POTASSIUM (test code 4.2 mmol/L 3.5-5.1 N = K) CHLORIDE (test code 103.0 mmol/L 98-107 N = CL) CARBON DIOXIDE (test 23.0 mmol/L 21-32 N code = CO2) ANION GAP (test code 12.2 10-20 N = GAP) GLUCOSE (test code = 101 mg/dL 74-106 N GLU) BLOOD UREA NITROGEN 16 mg/dL 7-18 N (test code = BUN) GLOMERULAR > 60 mL/min See_Comment Estimated GFR b y FILTRATION RATE using Modifi ed MDRD (test code = GFR) formula.[facility] kidney disease is defined as eith er kidney damageor GFR <60 mL/min/1.73 m2 for >3 months. [Automated mess age] The system [employer] generated this result transmitted ref erence range: >=60. Th e reference range was not used to int erpret this result as normal/abnormal . CREATININE (test 0.80 mg/dL 0.7-1.3 N code = CREAT) BUN/CREATININE RATIO 19.3 10-20 N (test code = BUN/CREA) CALCIUM (test code = 8.8 mg/dL 8.5-10.1 N CA) HEPATIC FUNCTION [id number] 20:58:00 Test Item Value Reference Range Interpretation Comments TOTAL PROTEIN (test 7.0 gram/dL 6.4-8.2 N code = PROT) ALBUMIN (test code = 4.0 g/dL 3.4-5.0 N ALB) GLOBULIN (test code = 3.0 gram/dL 2.7-4.2 N GLOB) ALBUMIN/GLOBULIN RATIO 1.3 0.75-1.50 N (test code = A/G) BILIRUBIN TOTAL (test 0.40 mg/dL 0.0-1.0 N code = BILT) BILIRUBIN DIRECT (test < 0.10 mg/dL 0.0-0.20 N code = BILD) SGOT/AST (test code = 32 IUnit/L 15-37 N AST) SGPT/ALT (test code = 47 IUnit/L 12-78 N ALT) ALKALINE PHOSPHATASE 65 IUnit/L 45-117 N Note change in TOTAL (test code = reference range due ALKP) to change in reagent. [id number] 20:58:00 Test Item Value Reference Range Interpretation Comments TROPONIN-I (test code = TROPI) < 0.006 ng/mL 0-0.045 N [id number] 20:58:00 Test Item Value Reference Range Interpretation Comments ACETAMINOPHEN (test < 10 mcg/mL 10-30 L A RANGE OF 10-30 code = ACET) mcg/mL IS A THERAPEUTIC RAN GE. TOXIC CONCENTRATIONS: >150 mcg/mL AT 4 ANTONIO RS AFTER INGESTION >= 50 mcg/mL AT 12 HOURS AFTER INGESTION [id number] 20:58:00 Test Item Value Reference Range Interpretation Comments SALICYLATE (test code = RENALDO) < 3.0 mg/dL 2.8-20.0 N [id number] 20:58:00 Test Item Value Reference Range Interpretation Comments ALCOHOL (test code = 25 mg/dL 0.0-3.0 H ------- INTERPRE ALC) TIVE DATA NOTE: POSITIVE SCREEN ING RESULTS SHOULD BE CONSIDERED PRESUMPTIVE.WHE N COLLECTED FOR M EDICAL PURPOSES ONLY. SPECIMEN WILL NOTBE RAMA ECTED BY CHAIN OF CUSTOD Y.IF A CONFIRMATION OF POSITIVE RESULTS IS JAIMEE RED, ACONFIRMATION T EST MUST BE REQUESTED BY THE PHYSICIAN AT AN ADDITIONAL CHARGE [facility] THE [facility] HEAD/BRAIN W/O [id number] 20:52:00 [facility])Name: TEJ GUADALUPE : 1985 Sex: M Name: TEJ GUADALUPE [facility] : Age/S: 35 / M [address] Unit #: [id number] Loc: [place] [address] Phys: Shaggy Morrow MD Acct: [id number] Dis Date: Status: PRE ER PHONE #: [phone] Exam Date: 12/13/20202017 FAX #: [phone] Reason: CONFUSION EXAMS: CPT CODE: [id number] CT HEAD/BRAIN W/O CONT 10062 HISTORY: CONFUSION TECHNIQUE: Noncontrast 2.[address] of the head. Examination acquired within 24 hours of arrival. Automated exposure control for dose reduction. COMPARISON: None FINDINGS: No lacerations or contusions of the scalp or facial soft tissues. Calvarium and skull base are intact. No acute hemorrhage. No intracranial mass, mass effect, or midline shift. No effacement of the sulci or vaughn-white matter interface. No cortical atrophy. No signs of white matter small-vesseldisease. No hydrocephalus.. No extra-axial fluid collection. Visualized paranasal sinuses are clear. Mastoid air cells and middle ear cavities are clear. Orbital contents are unremarkable. IMPRESSION: Negative CT head. Location: RR at 2051 Reported and signed by: Tano Gauthier MD CC: Shaggy Morrow MD Technologist:Camilo Staley, RT(R)(CT) CTDI: DLP: [id number] Date/Time: 12/13/2020 (2051) [email or web address] Orig Print D/T: S: 12/13/2020 (2054) PAGE1 Signed Report URINALYSIS [id number] 20:39:00 Test Item Value Reference Range Interpretation Comments UA COLOR (test code = COLU) Light-Yellow YELLOW UA APPEARANCE (test code = CLEAR CLEAR APPU) UA GLUCOSE DIPSTICK (test NEGATIVE mg/dL NEGATIVE code = DGLUU) UA BILIRUBIN DIPSTICK (test NEGATIVE mg/dL NEGATIVE code = BILU) UA KETONE DIPSTICK (test code NEGATIVE mg/dL NEGATIVE = KETU) UA SPECIFIC GRAVITY (test 1.014 1.001-1.035 code = SGU) UA BLOOD DIPSTICK (test code Negative mg/dL NEGATIVE = DAVON) UA PH DIPSTICK (test code = 6.5 5.0-8.0 ADRIANO) UA PROTEIN DIPSTICK (test NEGATIVE mg/dL NEGATIVE code = PROU) UA UROBILINIOGEN DIPSTICK Normal mg/dL NEGATIVE (test code = URO) UA NITRITE DIPSTICK (test NEGATIVE NEGATIVE code = CLARISSE) UA LEUKOCYTE ESTERASE W NEGATIVE Matt/uL NEGATIVE REFLEX (test code = LEUUR) UA WBC (test code = WBCU) 0-5 per HPF 0-5 UA RBC (test code = RBCU) 0-2 #/HPF 0-5 UA EPITHELIAL CELLS (test FEW per HPF FEW code = EPIU) UA BACTERIA (test code = NONE SEEN #/HPF NONE BACU) UA MUCUS (test code = MUCU) FEW #/LPF FEW Urine Source? Clean CatchDRUGS OF ABUSE SCREEN [id number] 20:39:00 Test Item Value Reference Range Interpretation Comments URN COCAINE (test code = See_Comment [A utomated message] COCAURN) The system [employer] generated this result transmitted ref erence range: <300 ng/ mL. The reference range was not used to int erpret this result as normal/abnormal . URN CANNABINOIDS (test See_Comment [Aut omated message] code = CANNABURN) The system which generated this result transmitted ref erence range: <50 ng/m L. The reference range was not used to int erpret this result as normal/abnormal . URN AMPHETAMINE (test code See_Comment [Automated message] = AMPHETURN) The system [employer] generated this result transmitted ref erence range: <1000 ng /mL. The reference r maru was not used to interpret this result as normal/abnor mal. URN BARBITURATE (test code See_Comment [Automated message] = BARBITURN) The system [employer] generated this result transmitted ref erence range: <200 ng/ mL. The reference range was not used to int erpret this result as normal/abnormal . URN BENZODIAZEPINE (test See_Comment [A utomated message] code = BENZOURN) The system which generated this result transmitted ref erence range: <200 ng/ mL. The reference range was not used to int erpret this result as normal/abnormal . URN OPIATES (test code = See_Comment [A utomated message] OPIATURN) The system [employer] generated this result transmitted ref erence range: <300 ng/ mL. The reference range was not used to int erpret this result as normal/abnormal . URN PHENCYCLIDINE (PCP) See_Comment [Au tomated message] (test code = PHENCURN) The s ystem which generated this result transmitted ref erence range: <25 ng/m L. The reference range was not used to int erpret this result as normal/abnormal . URN METHADONE (test code = See_Comment [Automated message] METHAURN) The system [employer] generated this result transmitted ref erence range: <300 ng/ mL. The reference range was not used to int erpret this result as normal/abnormal . Urine Source? Clean CatchURINALYSIS [id number] 20:29:00 Test Item Value Reference Range Interpretation Comments UA COLOR (test code = COLU) Light-Yellow YELLOW UA APPEARANCE (test code = CLEAR CLEAR APPU) UA GLUCOSE DIPSTICK (test NEGATIVE mg/dL NEGATIVE code = DGLUU) UA BILIRUBIN DIPSTICK (test NEGATIVE mg/dL NEGATIVE code = BILU) UA KETONE DIPSTICK (test code NEGATIVE mg/dL NEGATIVE = KETU) UA SPECIFIC GRAVITY (test 1.014 1.001-1.035 code = SGU) UA BLOOD DIPSTICK (test code Negative mg/dL NEGATIVE = DAVON) UA PH DIPSTICK (test code = 6.5 5.0-8.0 ADRIANO) UA PROTEIN DIPSTICK (test NEGATIVE mg/dL NEGATIVE code = PROU) UA UROBILINIOGEN DIPSTICK Normal mg/dL NEGATIVE (test code = URO) UA NITRITE DIPSTICK (test NEGATIVE NEGATIVE code = CLARISSE) UA LEUKOCYTE ESTERASE W NEGATIVE Matt/uL NEGATIVE REFLEX (test code = LEUUR) UA WBC (test code = WBCU) per HPF 0-5 UA RBC (test code = RBCU) per HPF 0-5 UA EPITHELIAL CELLS (test per HPF Few code = EPIU) UA BACTERIA (test code = per HPF NONE BACU) Urine Source? Clean CatchDRUGS OF ABUSE SCREEN [id number] 20:29:00 Test Item Value Reference Range Interpretation Comments URN COCAINE (test code = See_Comment [A utomated message] COCAURN) The system [employer] generated this result transmitted ref erence range: <300 ng/ mL. The reference range was not used to int erpret this result as normal/abnormal . URN CANNABINOIDS (test See_Comment [Aut omated message] code = CANNABURN) The system which generated this result transmitted ref erence range: <50 ng/m L. The reference range was not used to int erpret this result as normal/abnormal . URN AMPHETAMINE (test code See_Comment [Automated message] = AMPHETURN) The system [employer] generated this result transmitted ref erence range: <1000 ng /mL. The reference r maru was not used to interpret this result as normal/abnor mal. URN BARBITURATE (test code See_Comment [Automated message] = BARBITURN) The system [employer] generated this result transmitted ref erence range: <200 ng/ mL. The reference range was not used to int erpret this result as normal/abnormal . URN BENZODIAZEPINE (test See_Comment [A utomated message] code = BENZOURN) The system which generated this result transmitted ref erence range: <200 ng/ mL. The reference range was not used to int erpret this result as normal/abnormal . URN OPIATES (test code = See_Comment [A utomated message] OPIATURN) The system [employer] generated this result transmitted ref erence range: <300 ng/ mL. The reference range was not used to int erpret this result as normal/abnormal . URN PHENCYCLIDINE (PCP) See_Comment [Au tomated message] (test code = PHENCURN) The s ystem which generated this result transmitted ref erence range: <25 ng/m L. The reference range was not used to int erpret this result as normal/abnormal . URN METHADONE (test code = See_Comment [Automated message] METHAURN) The system [employer] generated this result transmitted ref erence range: <300 ng/ mL. The reference range was not used to int erpret this result as normal/abnormal . Urine Source? Clean CatchC W/O [id number] 20:22:00 Test Item Value Reference Range Interpretation Comments WHITE BLOOD CELL (test code = 11.5 K/mm3 4.5-12.5 N WBC) RED BLOOD CELL (test code = 4.43 mill/mm3 4.0-5.8 N RBC) HEMOGLOBIN (test code = HGB) 13.6 gram/dL 13.0-17.5 N HEMATOCRIT (test code = HCT) 40.2 % 42.0-52.0 L MEAN CELL VOLUME (test code = 90.7 fL 80-98 N MCV) MEAN CELL HGB (test code = MCH) 30.7 picogram 27.0-33.0 N MEAN CELL HGB CONCETRATION 33.8 gram/dL 33.0-36.0 N (test code = MCHC) RED CELL DISTRIBUTION WIDTH 13.9 % 11.6-16.2 N (test code = RDW) PLATELET COUNT (test code = 304 K/mm3 150-450 N PLT) MEAN PLATELET VOLUME (test code 9.8 fL 6.7-11.0 N = MPV)"
[2022-03-29 09:58] LABS: Absolute Lymphocytes (CBC) 1.3 K/uL (0.7-4.9); Hematocrit 37.2 % (39.6-49.0); Lymphocytes % 17.2 % (15.3-44.8); MPV 8.4 fL (7.6-11.3); RBC Red Blood Cell Count 4.19 M/uL (4.33-5.43)
[2022-03-29 10:05] LABS: Protime INR 1.11
[2022-03-29 10:22] LABS: Bilirubin Direct 0.5 mg/dL (0-0.2); Bilirubin Total 1.7 mg/dL (0.2-1.0); Potassium 3.2 mmol/L (3.5-5.1); Protein, Total 7.5 g/dL (6.4-8.2)
[2022-03-29 14:09] LABS: Urine Blood Negative (Negative); Urine Glucose Negative (Negative); Urine Protein Negative (Negative); Urine Specific Gravity >=1.030 (1.005-1.030)
[2022-03-29 14:38] LABS: Barbiturates NEGATIVE (NEGATIVE); Benzodiazepines NEGATIVE (NEGATIVE); Cocaine NEGATIVE (NEGATIVE); METHAMPHETAM POSITIVE (NEGATIVE); Methadone NEGATIVE (NEGATIVE); Opiates NEGATIVE (NEGATIVE); Phencyclidine NEGATIVE (NEGATIVE); THC Cannibis POSITIVE (NEGATIVE)
--- NOTE | 2022-03-29 15:07 | EDPHYS ---
Physician Documentation [facility] [place] Name: Anthony Au Age: 37 yrs Sex: Male : 1985 Arrival Date: 03/29/2022 Time: 09:37 Bed 13 Private MD: ED Physician Fernandez Manzano HPI: 03/29 09:41 This 37 yrs old Male presents to ER via EMS with complaints of Hallucinations. pm1 09:41 The patient presents to the emergency department with paranoia, hallucinations. Patient pm1 reports having visual and auditory hallucinations. He knows that the hallucinations that he sees are not real. Onset: The symptoms/episode began/occurred yesterday. Past psychiatric history: Prior diagnosis: addiction history, methamphetamine and benzodiazepine , anxiety, bipolar disorder, Psychiatric medications include: benzodiazepine . Associated signs and symptoms: Pertinent positives; hallucinations, paranoia, Pertinent negatives: homicidal ideation, suicide ideation. Severity of symptoms: in the emergency department the symptoms are unchanged Pain is currently a 0 / 10. The patient has experienced similar episodes in the past, several times. The patient has not recently seen a physician, the patient's primary care provider is Dr. Smith, Patient reports running out of his anxiety medications, benzodiazepine . Historical: - Allergies: 09:38 No Known Allergies; ll1 - PMHx: 09:38 Anxiety; Asthma; Bipolar disorder; Depression; detox seizures; scalp laceration repair.;ll1 - PSHx: 09:38 None; ll1 - Immunization history:: Client reports receiving the 2nd dose of the Covid vaccine. - Social history:: Smoking status: Patient reports the use of cigarette tobacco products, smokes one-half pack cigarettes per day. ROS: 09:41 Constitutional: Negative for fever, chills, and weight loss, Cardiovascular: Negative pm1 for chest pain, palpitations, and edema, Respiratory: Negative for shortness of breath, cough, wheezing, and pleuritic chest pain, Abdomen/GI: Negative for abdominal pain, nausea, vomiting, diarrhea, and constipation, Back: Negative for injury and pain, MS/Extremity: Negative for injury and deformity, Skin: Negative for injury, rash, and discoloration, Neuro: Negative for headache, weakness, numbness, tingling, and seizure. 09:41 Psych: Positive for Exam: 09:41 Constitutional: This is a well developed, well nourished patient who is awake, alert, pm1 and in no acute distress. Head/Face: Normocephalic, atraumatic. Cardiovascular: Regular rate and rhythm with a normal S1 and S2. No gallops, murmurs, or rubs. Normal PMI, no JVD. No pulse deficits. Respiratory: Lungs have equal breath sounds bilaterally, clear to auscultation and percussion. No rales, rhonchi or wheezes noted. No increased work of breathing, no retractions or nasal flaring. Abdomen/GI: Soft, non-tender, with normal bowel sounds. No distension or tympany. No guarding or rebound. No evidence of tenderness throughout. Back: No spinal tenderness. No costovertebral tenderness. Full range of motion. Skin: Warm, dry with normal turgor. Normal color with no rashes, no lesions, and no evidence of cellulitis. MS/ Extremity: Pulses equal, no cyanosis. Neurovascular intact. Full, normal range of motion. 09:41 Neuro: Exam negative for acute changes, Orientation: is normal, Mentation: is normal, Motor: is normal, Sensation: is normal, no obvious gross deficits. 09:41 Psych: Behavior/mood is cooperative, Affect is animated, Oriented to person, place, time, Delusions/hallucinations are present and described as No current hallucinations present, but patient reports seeing people in his backyard that he realizes are not real and are actually trees. Vital Signs: 09:39 BP 133 / 78; Pulse 96; Resp 17; Temp 98.6; Pulse Ox 95% ; Weight 86.18 kg; Height 5 ft. ll1 8 in. (172.72 cm); Pain 0/10; 15:16 BP 138 / 99; Pulse 100; Resp 17 S; Pulse Ox 99% on R/A; jg9 09:39 Body Mass Index 28.89 (86.18 kg, 172.72 cm) ll1 MDM: 09:37 Patient medically screened. rn 13:09 ED course: Pending [facility] evaluation . pm1 14:42 Data reviewed: vital signs. Data interpreted: Pulse oximetry: on room air is 95 %. pm1 Interpretation: normal. 14:42 ED course: [facility] evaluation complete and recommends out patient therapy. Patient pm1 is not homicidal or suicidal and is not a threat to self or other per her assessment. 15:02 Counseling: I had a detailed discussion with the patient and/or guardian regarding: the pm1 historical points, exam findings, and any diagnostic results supporting the discharge/admit diagnosis, lab results, the need for outpatient follow up, PCP, psychiatry. 03/29 09:37 Order name: Basic Metabolic Panel; Complete Time: 10:59 rn 03/29 09:37 Order name: CBC with Diff; Complete Time: 10:01 rn 03/29 09:37 Order name: ETOH Level; Complete Time: 10:20 rn 03/29 09:37 Order name: Hepatic Function; Complete Time: 10:59 rn 03/29 09:37 Order name: PT-INR; Complete Time: 10:20 rn 03/29 09:37 Order name: Ptt, Activated; Complete Time: 10:20 rn 03/29 09:37 Order name: Salicylate; Complete Time: 10:59 rn 03/29 09:37 Order name: Urine Drug Screen; Complete Time: 15:07 rn 03/29 09:37 Order name: EKG; Complete Time: 09:38 rn 03/29 09:37 Order name: EKG - Nurse/Tech; Complete Time: 09:45 rn 03/29 09:37 Order name: IV Saline Lock; Complete Time: 09:42 rn 03/29 14:09 Order name: Urine Dipstick-Ancillary; Complete Time: 14:23 EDMS 03/29 09:37 Order name: Labs collected and sent; Complete Time: 09:42 rn 03/29 09:37 Order name: Suicide Screening ([place]); Complete Time: 09:42 rn Administered Medications: No medications were administered Disposition: 18:03 Co-signature as Attending Physician, Fernandez Manzano MD. rn Disposition Summary: 03/29/22 15:06 Discharge Ordered Location: Home pm1 Problem: new pm1 Symptoms: have improved pm1 Condition: Stable pm1 Diagnosis - Other hallucinations pm1 - Cannabis abuse pm1 - Other stimulant abuse - methamphetamine abuse pm1 Followup: pm1 - With: Emergency Department - When: As needed - Reason: Worsening of condition Followup: pm1 - With: Africa Smith, - When: 2 - 3 days - Reason: Recheck today's complaints, Continuance of care, Re-evaluation by your physician Followup: pm1 - With: Private Physician - When: 2 - 3 days - Reason: Recheck today's complaints, Continuance of care, Re-evaluation by your physician Discharge Instructions: - Discharge Summary Sheet pm1 - Cannabis Use Disorder pm1 - Methamphetamines Use Disorder pm1 Forms: - Medication Reconciliation Form pm1 - Thank You Letter pm1 - Antibiotic Education pm1 - Prescription Opioid Use pm1 Signatures: Dispatcher [employer] EDMS Fernandez Manzano MD MD rn Marinas, Patrick, NP [employer] pm1 Hong Donahue RN RN ll1 Corrections: (The following items were deleted from the chart) 10:38 09:38 ACETAMINOPHEN+C.LAB.BRZ ordered. EDMS EDMS
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
[2022-03-29 16:04] VITALS: TEMP 98.6
[2022-03-29 16:07] VITALS: BP 138/99; O2SAT 99
--- NOTE | 2022-03-30 12:56 | EKG ---
Test Date: 2022-03-29 Test Time: 09:46:07 Mother Helper: SANG MEASUREMENT RESULTS: Intervals: Rate: 95 AR: 136 QRSD: 92 QT: 364 QTc: 457 [place]: P: 68 AR: 136 QRS: 91 T: 63 INTERPRETIVE STATEMENTS: Normal sinus rhythm Rightward axis Borderline ECG Compared to ECG 09/13/2020 01:44:29 Sinus tachycardia no longer present Myocardial infarct finding no longer present T-wave abnormality no longer present Possible ischemia no longer present Electronically Signed On 03-30-22 12:55:11 CDT by Charli Nance
== END 2022-03-29 15:17 | disposition home or self-care (01) ==
LOC: ER 09:35
DX: F12.10 Cannabis abuse, uncomplicated (principal); F15.10 Other stimulant abuse, uncomplicated; F31.9 Bipolar disorder, unspecified; F17.210 Nicotine dependence, cigarettes, uncomplicated
CPT/HCPCS: 36415; 80048; 80076; 80307; 80320; 80329; 81003; 85025; 85610; 85730; 93005

== ENCOUNTER 2022-04-12 18:18 | Inpatient (IN) | payer SELFPAY ==
--- NOTE | 2022-04-12 20:28 | RAD REPORT ---
EXAM DESCRIPTION: RAD - Wrist Right 3 View - 04/12/2022 8:22 pm CLINICAL HISTORY: Pain Pain COMPARISON: No comparisons FINDINGS: Soft tissue swelling is seen involving the forearm, dorsal hand and wrist. No fracture, ra diopaque foreign body seen. No evidence of soft tissue gas.
[2022-04-12] MEDS ORDERED: VANCOMYCIN 1 GM/VIAL ONE (20:59)
[2022-04-12] MEDS ORDERED: NA CHLORIDE 0.9% 250 ML ONE (20:59)
[2022-04-12] MEDS ORDERED: NA CHLORIDE 0.9% 1,000 ML ONE (20:59)
[2022-04-12 21:01] LABS: Absolute Lymphocytes (CBC) 1.9 K/uL (0.7-4.9); Hematocrit 40.5 % (39.6-49.0); Lymphocytes % 15.7 % (15.3-44.8); MPV 8.5 fL (7.6-11.3); RBC Red Blood Cell Count 4.56 M/uL (4.33-5.43)
[2022-04-12 21:15] LABS: Albumin 4.1 g/dL (3.4-5.0); Bilirubin Total 1.3 mg/dL (0.2-1.0); Potassium 3.2 mmol/L (3.5-5.1); Protein, Total 7.9 g/dL (6.4-8.2)
--- NOTE | 2022-04-12 21:22 | EDPHYS ---
Physician Documentation [facility] Name: Anthony Au Age: 37 yrs Sex: Male : 1985 Arrival Date: 04/12/2022 Time: 18:19 Bed 17 Private MD: ED Physician Ubaldo Chaudhari HPI: 04/12 19:50 This 37 yrs old Male presents to ER via Ambulatory with complaints of Wound cp Check. 04/13 19:50 The patient or guardian complains of pain, that is acute, swelling, tenderness. cp 19:50 The complaints affect the right wrist and palmar aspect of right forearm. Context: cp patient reports attempt to drain superficial abscess. Reports history of IV methamphetamine drug use but denies recent use. Treatment prior to arrival includes: no previous treatment. Associated signs and symptoms: Pertinent negatives: fever. Historical: - Allergies: 04/12 18:27 No Known Allergies; ap3 - PMHx: 18:27 Anxiety; Asthma; Bipolar disorder; Depression; detox seizures; scalp laceration repair.;ap3 - Immunization history:: Client reports receiving the 2nd dose of the Covid vaccine. - Social history:: Smoking status: Patient reports the use of cigarette tobacco products, smokes one-half pack cigarettes per day. ROS: 19:55 MS/extremity: Positive for erythema, pain, swelling, tenderness, of the right wrist and cp right forearm. 19:55 Eyes: Negative for injury, pain, redness, and discharge. cp 19:55 Constitutional: Negative for body aches, chills, fever, poor PO intake. 19:55 ENT: Negative for drainage from ear(s), ear pain, sore throat, difficulty swallowing, difficulty handling secretions. 19:55 Cardiovascular: Negative for chest pain, edema, palpitations. 19:55 Respiratory: Negative for cough, shortness of breath, wheezing. 19:55 Abdomen/GI: Negative for abdominal pain, nausea, vomiting, and diarrhea. 19:55 All other systems are negative. cp Exam: 20:00 Constitutional: The patient appears in no acute distress, alert, awake, cp non-diaphoretic, non-toxic, well developed, well nourished. 20:00 Head/Face: Normocephalic, atraumatic. cp 20:00 Chest/axilla: Inspection: normal. 20:00 Cardiovascular: Rate: tachycardic, Rhythm: regular, Pulses: Pulses are 2+ in right radial artery. 20:00 Respiratory: the patient does not display signs of respiratory distress, Respirations: normal, no use of accessory muscles, no retractions, labored breathing, is not present, Breath sounds: are clear throughout, no decreased breath sounds, no stridor, no wheezing. 20:00 Abdomen/GI: Inspection: abdomen appears normal, Palpation: abdomen is soft and non-tender, in all quadrants. 20:00 Skin: cellulitis, irregular, on the right wrist and right forearm. Vital Signs: 18:28 BP 137 / 91; Pulse 129; Resp 18; Temp 99.8; Pulse Ox 96% ; Weight 86.18 kg; Height 5 ap3 ft. 8 in. (172.72 cm); Pain 9/10; 21:48 BP 124 / 90; Pulse 86; Resp 18; Pulse Ox 95% on R/A; sm5 18:28 Body Mass Index 28.89 (86.18 kg, 172.72 cm) ap3 MDM: 19:31 Patient medically screened. cp 21:08 Physician consultation: Daniel Keller MD was called at 21:05, was contacted at 21:05, cp regarding consult, patient's condition, would like admission per Dr. Annika HODGE wants patient npo after midnight. 21:30 Data reviewed: vital signs, nurses notes, lab test result(s), radiologic studies, plain cp films, ultrasound. 21:30 Test interpretation: by ED physician or midlevel provider: plain radiologic studies. cp Counseling: I had a detailed discussion with the patient and/or guardian regarding: the historical points, exam findings, and any diagnostic results supporting the discharge/admit diagnosis, lab results, radiology results, the need for further work-up and treatment in the hospital. Physician consultation: Annika HODGE regarding admission, to the medical/surgical unit. patient's condition. 04/12 19:46 Order name: Blood Culture Adult (2) 04/12 19:46 Order name: CBC with Diff; Complete Time: 21:18 cp 04/13 03:09 Interpretation: Normal except: WBC 12.1; KENDELL% 73.8; NEUT A 8.9. 04/12 19:46 Order name: CMP; Complete Time: 21:18 cp 04/13 03:09 Interpretation: Normal except: K 3.2; BUN 19; GFR 88; BILIT 1.3; GLOB 3.8. 04/12 19:46 Order name: Lactate; Complete Time: 21:28 cp 04/13 03:09 Interpretation: LAC 0.9; Reviewed. 04/12 19:46 Order name: Urine Microscopic Only 04/12 19:46 Order name: Procalcitonin; Complete Time: 22:07 04/12 19:46 Order name: XRAY Wrist RIGHT 3 view; Complete Time: 20:56 cp 04/12 20:56 Interpretation: Report reviewed. 04/12 19:48 Order name: US Extremity Venous Unilateral Ltd cp 04/12 22:08 Order name: SARS-COV-2 RT PCR (Document "Date of Onset" if Symptomatic); Complete Time: sb3 03:09 04/13 03:09 Interpretation: Reviewed. 04/12 22:10 Order name: UDS sb3 04/13 05:26 Order name: CBC with Automated Diff EDMS 04/13 05:35 Order name: Basic Metabolic Panel EDMS 04/13 05:35 Order name: Phosphorus EDMS 04/13 05:35 Order name: Magnesium EDMS 04/12 19:46 Order name: Cardiac monitoring; Complete Time: 20:54 04/12 19:46 Order name: EKG - Nurse/Tech; Complete Time: 20:23 04/12 19:46 Order name: IV Saline Lock - Large Bore; Complete Time: 20:50 04/12 19:46 Order name: Labs collected and sent; Complete Time: 20:50 04/12 19:46 Order name: O2 Per Protocol; Complete Time: 20:54 04/12 19:46 Order name: O2 Sat Monitoring; Complete Time: 20:54 04/12 19:52 Order name: UPPER EXTREMITY VENOUS UNILATE; Complete Time: 21:28 EDMS Administered Medications: 21:31 Drug: NS 0.9% 1000 ml Route: IV; Rate: 1 bolus; Site: left upper arm; 5 21:31 Drug: vancoMYCIN 1 grams Route: IVPB; Infused Over: 2 hrs; Site: left upper arm; sm5 21:31 Drug: Potassium Effervescent Tablet 50 mEq Route: PO; sm5 22:45 Drug: Zofran (Ondansetron) 4 mg Route: IVP; Site: left upper arm; [facility] 22:46 Drug: morphine 4 mg Route: IVP; Infused Over: 4 mins; Site: left upper arm; [facility] 04/13 00:43 Not Given (given under meditech): Zosyn (piperacillin-tazobactam) 3.375 grams IVPB ke1 once over 60 mins; (mix in NS 100 mL) Disposition: 06:08 Co-signature as Attending Physician, Ubaldo Chaudhari MD. mh7 Disposition Summary: 04/12/22 21:21 Hospitalization Ordered Hospitalization Status: Inpatient Admission cp Provider: Steve Reed cp Condition: Stable cp Problem: new cp Symptoms: have improved cp Bed/Room Type: Standard cp Location: Telemetry/MedSurg (Inpatient)(04/13/22 09:59) dw Room Assignment: [facility](04/13/22 09:59) dw Diagnosis - Cellulitis and acute lymphangitis of other parts of limb - right wrist cp Forms: - Medication Reconciliation Form cp - SBAR form cp Signatures: Dispatcher [employer] EDSana Dey RN RN dw River Singh PA PA cp Yusra Dash RN RN cg Lisa Chatterjee RN RN 3 Ubaldo Chaudhari MD MD 7 Bridgette Shea RN RN Annika Lott PA PA sb3 Tonya Rust RN ke1 Corrections: (The following items were deleted from the chart) 04/12 22:19 21:21 Telemetry/MedSurg (Inpatient) cp cg 22:19 21:21 cp cg 04/13 03:11 03:09 MS/extremity: Positive for erythema, pain, swelling, tenderness, of the right cp wrist and right forearm, cp 09:59 04/12 22:19 [facility] ER HOLD cg dw 04/13 09:59 04/12 22:19 ERHOLD- cg dw
--- NOTE | 2022-04-12 21:22 | ER ---
Nurse's Notes [facility] Name: Anthony Au Age: 37 yrs Sex: Male : 1985 Arrival Date: 04/12/2022 Time: 18:19 Bed 17 Private MD: Diagnosis: Cellulitis and acute lymphangitis of other parts of limb-right wrist Presentation: 04/12 18:25 Chief complaint: Patient states: he had a boil on his right wrist that he popped, and ap3 it started swelling. Patient states he is here today to have the wound checked to see if he needs antibiotics. Coronavirus screen: At this time, the client does not indicate any symptoms associated with coronavirus-19. Ebola Screen: No symptoms or risks identified at this time. Initial Sepsis Screen:. Risk Assessment: Do you want to hurt yourself or someone else? Patient reports no desire to harm self or others. Onset of symptoms was April 12, 2022. 18:25 Method Of Arrival: Ambulatory ap3 18:28 Initial Sepsis Screen: Does the patient meet any 2 criteria? HR > 90 bpm. Does the ap3 patient have a suspected source of infection? Yes: Skin breakdown/wound. 18:28 Acuity: MARKY 3 ap3 Triage Assessment: 18:29 General: Appears in no apparent distress. Behavior is cooperative, anxious. Pain: ap3 Complains of pain in right arm Pain currently is 9 out of 10 on a pain scale. Neuro: Level of Consciousness is awake, alert, obeys commands, Oriented to person, place, time, situation, Speech is normal. Cardiovascular: Patient's skin is warm and dry. Respiratory: Airway is patent Respiratory effort is even, unlabored, Respiratory pattern is regular, symmetrical. Derm: Wound noted right wrist. Musculoskeletal: Swelling present in dorsal aspect of right forearm. Historical: - Allergies: 18:27 No Known Allergies; ap3 - PMHx: 18:27 Anxiety; Asthma; Bipolar disorder; Depression; detox seizures; scalp laceration repair.;ap3 - Immunization history:: Client reports receiving the 2nd dose of the Covid vaccine. - Social history:: Smoking status: Patient reports the use of cigarette tobacco products, smokes one-half pack cigarettes per day. Screenin:30 Abuse screen: Denies threats or abuse. Nutritional screening: No deficits noted. ap3 Tuberculosis screening: No symptoms or risk factors identified. 19:58 Fall Risk None identified. sm5 Assessment: 19:56 General: Appears in no apparent distress. Behavior is cooperative. Pain: Complains of sm5 pain in right wrist. Neuro: Level of Consciousness is awake, alert, obeys commands, Oriented to person, place, time, situation. Cardiovascular: Capillary refill < 3 seconds Patient's skin is warm and dry. Respiratory: Airway is patent Trachea midline Respiratory effort is even, unlabored. Derm: Wound noted dorsal aspect of right forearm Wound is draining pus, swelling to right wrist. Vital Signs: 18:28 BP 137 / 91; Pulse 129; Resp 18; Temp 99.8; Pulse Ox 96% ; Weight 86.18 kg; Height 5 ap3 ft. 8 in. (172.72 cm); Pain 9/10; 21:48 BP 124 / 90; Pulse 86; Resp 18; Pulse Ox 95% on R/A; sm5 18:28 Body Mass Index 28.89 (86.18 kg, 172.72 cm) ap3 ED Course: 18:19 Patient arrived in ED. as 18:29 Triage completed. ap3 18:30 Arm band placed on left wrist. ap3 19:15 River Singh PA is PHCP. cp 19:15 Ubaldo Chaudhari MD is Attending Physician. cp 19:35 Bridgette Shea, VINI is Primary Nurse. sm5 19:58 Patient has correct armband on for positive identification. Bed in low position. Call sm5 light in reach. Side rails up X2. 20:00 Missed attempt(s): 20 gauge in left forearm. sm5 20:23 XRAY Wrist RIGHT 3 view In Process Unspecified. EDMS 20:40 Initial lab(s) drawn, by me, sent to lab. First set of blood cultures drawn by me. bb Accessed peripheral vein via ultrasound, utilizing dynamic ultrasound technique Powerglide midline 20g 10cm to left upper arm with good blood return and flushes easily pt tolerated well. 20:50 Blood Culture Adult (2) Sent. sm5 20:50 CBC with Diff Sent. sm5 20:50 CMP Sent. sm5 20:50 Lactate Sent. sm5 20:51 EKG done, by ED staff, reviewed by Ubaldo Chaudhari MD. wm 21:19 UPPER EXTREMITY VENOUS UNILATE In Process Unspecified. EDMS 21:19 Steve Reed is Hospitalizing Provider. cp Administered Medications: 21:31 Drug: NS 0.9% 1000 ml Route: IV; Rate: 1 bolus; Site: left upper arm; [facility] 21:31 Drug: vancoMYCIN 1 grams Route: IVPB; Infused Over: 2 hrs; Site: left upper arm; [facility] 21:31 Drug: Potassium Effervescent Tablet 50 mEq Route: PO; [facility] 22:45 Drug: Zofran (Ondansetron) 4 mg Route: IVP; Site: left upper arm; [facility] 22:46 Drug: morphine 4 mg Route: IVP; Infused Over: 4 mins; Site: left upper arm; [facility] 04/13 00:43 Not Given (given under [facility]): Zosyn (piperacillin-tazobactam) 3.375 grams IVPB ke1 once over 60 mins; (mix in NS 100 mL) Outcome: 04/12 21:21 Decision to Hospitalize by Provider. cp 04/13 11:17 Patient left the ED. bp Signatures: Dispatcher [employer] EDMS Chel Ruffin as Sheyla Mcleod, RN RN bb River Singh, NAVEEN PA cp Rafita Staton, RN RN bp Lisa Chatterjee RN RN ap3 Rosie Araujo Sarah, RN RN sm5 Tonya Rust RN ke1
--- NOTE | 2022-04-12 21:23 | RAD REPORT ---
EXAM DESCRIPTION: US - UPPER EXTREMITY VENOUS UNILATE - 04/12/2022 9:17 pm CLINICAL HISTORY: Pain Arm swelling and edema. COMPARISON: No comparisons FINDINGS: Right upper extremity venous system was interrogated with Doppler technique. Normal flow, compressibility and augmentation was noted. There is no DVT present. IMPRESSION: No evidence of right upper extremity deep venous thrombosis.
[2022-04-12] MEDS ORDERED: POTASSIUM 25 MEQ EFFERV TAB ONE (21:29)
--- NOTE | 2022-04-12 22:16 | P.HP ---
Certification for Inpatient Patient admitted to: Inpatient With expected LOS: <2 Midnights Patient will require the following post-hospital care: None Practitioner: I am a practitioner with admitting privileges, knowledge of patient current condition, hospital course, and medical plan of care. Services: Services provided to patient in accordance with Admission requirements found in Title 42 Section 412.3 of the Code of Federal Regulations Patient History Date of Service: 04/12/22 Reason for admission: Cellulitus R Wrist History of Present Illness: Patient is a 37-year-old male with bipolar disorder and IV methamphetamine abuse who presented to the ED with complaints of infected wound on dorsal aspect of R wrist. Patient reports that he noticed a "boil" yesterday and popped it. which expressed a fluid with foul odor. He states he then cleaned it with hydrogen peroxide and slept in a "dirty bed." Today he noticed that his entire forearm was erythematous, swollen, and painful. He has full range of motion and sensation in his arm, hand, and fingers. ED provider contacted Dr. Keller who has agreed to consult. He was started on IV vanc and zosyn in ED. Patient reports lasting using IV meth 3 days ago. He adamantly states that he did not inject meth where the site of infection is, but on the other arm that appears normal. Labs significant for WBC 12, potassium 3.2. X-ray and ultrasound negative for foreign bodies, osteo, or thrombosis. He is admitted for further evaluation and treatment. Allergies No Known Allergies Allergy (Verified 11/24/12 17:02) Home medications list reviewed: Yes (NA) - Past Medical/Surgical History Diabetic: No -: Asthma -: Bipolar Disorder Past Surgical History: Patient denies surgical history Psychosocial/ Personal History: Patient lives at home with grandpa. - Family History Mother -: Diabetes - Social History Smoking Status: Current every day smoker Alcohol use: Yes CD- Drugs: Yes Caffeine use: Yes Place of Residence: Home Review of Systems Musculoskeletal: Arm Pain, Hand Pain Integumentary: As per HPI Physical Examination - Physical Exam General: Alert, In no apparent distress HEENT: Atraumatic, PERRLA, Mucous membr. moist/pink, EOMI, Sclerae nonicteric Neck: Supple, 2+ carotid pulse no bruit, No LAD, Without JVD or thyroid abnormality Respiratory: Clear to auscultation bilaterally, Normal air movement Cardiovascular: Regular rate/rhythm, Normal S1 S2 Gastrointestinal: Normal bowel sounds, No tenderness Integumentary: Tenderness/swelling, Erythema, Warmth, Other (abscess R wrist with surrounding erythema extending to proximal forearm) Neurological: Normal speech, Normal strength at 5/5 x4 extr, Normal tone, Normal affect - Studies Laboratory Data (last 24 hrs) 04/12/22 20:40: Sodium 138, Potassium 3.2 L, BUN 19 H, Creatinine 1.11, Glucose 96, Total Bilirubin 1.3 H, AST 21, ALT 40, Alkaline Phosphatase 69 04/12/22 20:40: WBC 12.1 H D, Hgb 13.8, Hct 40.5, Plt Count 278 Assessment and Plan - Problems (Diagnosis) (1) Cellulitis of right forearm Current Visit: Yes Status: Acute (2) History of methamphetamine abuse Current Visit: Yes Status: Chronic (3) Hypokalemia Current Visit: Yes Status: Acute (4) Tobacco abuse Current Visit: Yes Status: Chronic - Plan -NPO at midnight -Arianna to see patient and potentially operate -Continue zosyn, vancomycin, and IV fluids -Morphine PRN pain -Monitor and replete electrolytes per protocol -Reconcile and continue home medications -Lovenox for VTE ppx -Full code Discharge Plan: Home Plan to discharge in: 48 Hours - Advance Directives Does patient have a Living Will: No Does patient have a Durable POA for Healthcare: No - Code Status/Comfort Care Code Status Assessed: Yes (Full) Critical Care: No Time Spent Managing Pts Care (In Minutes): 50
[2022-04-12] MEDS ORDERED: ONDANSETRON 4 MG/2 ML VIAL ONE (22:44)
[2022-04-12] MEDS ORDERED: MORPHINE 4 MG/ML SYR ONE (22:44)
[2022-04-12] MEDS ORDERED: ACETAMINOPHEN 500 MG TAB PO PRN (23:50)
[2022-04-12] MEDS ORDERED: ONDANSETRON 4 MG/2 ML VIAL IV PRN (23:50)
[2022-04-12] MEDS ORDERED: VANCOMYCIN 1 GM in NA CHLORIDE 0.9% 250 ML IVPB SCH (23:50)
[2022-04-13] MEDS ORDERED: MORPHINE 2 MG/ML SYR ONE (00:18)
[2022-04-13] MEDS ORDERED: NA CHLORIDE 0.9% 1,000 ML ONE (00:18)
[2022-04-13] MEDS ORDERED: PIPERACIL/TAZO 3.375 GM VIAL IV ONE ×2 (00:18→08:52)
[2022-04-13] MEDS ORDERED: NA CHLORIDE 0.9% 100 ML ONE ×2 (00:18→08:52)
[2022-04-13] MEDS ORDERED: ONDANSETRON 4 MG/2 ML VIAL ONE (00:18)
[2022-04-13] MEDS ORDERED: LORazepam 2 MG/ML VIAL ONE (00:20)
[2022-04-13] MEDS: PIPER TAZO 3.375 GM in NA CHLORIDE 0.9% 100 ML IV SCH ×3 (00:36→16:10)
[2022-04-13] MEDS: NA CHLORIDE 0.9% 1,000 ML IV SCH ×3 (00:36→19:50)
[2022-04-13] MEDS: LORazepam 2 MG/ML VIAL IV PRN ×2 (00:37→17:42)
[2022-04-13] MEDS: MORPHINE 2 MG/ML SYR IV PRN ×3 (00:37→20:31)
[2022-04-13] MEDS ORDERED: VANCOMYCIN 500 MG in NA CHLORIDE 0.9% 100 ML IVPB ONE (01:00)
[2022-04-13 01:05] VITALS: BMI 28.8
[2022-04-13 05:24] LABS: Lymphocytes % 19.3 % (15.3-44.8); MCV 89.5 fL (80-100); RBC Red Blood Cell Count 4.13 M/uL (4.33-5.43)
[2022-04-13 05:33] LABS: Phosphorus 3.1 mg/dL (2.5-4.9); Potassium 3.9 mmol/L (3.5-5.1)
--- NOTE | 2022-04-13 07:50 | EKG ---
Test Date: 2022-04-12 Test Time: 20:25:41 Environmental Property Assessor: MEASUREMENT RESULTS: Intervals: Rate: 95 FL: 134 QRSD: 98 QT: 352 QTc: 442 [place]: P: 37 FL: 134 QRS: 92 T: 48 INTERPRETIVE STATEMENTS: Normal sinus rhythm Rightward axis Borderline ECG Compared to ECG 04/05/2022 23:23:52 No significant changes Electronically Signed On 04-13-22 07:48:16 CDT by Charli Nance
[2022-04-13] MEDS ORDERED: ENOXAPARIN 40 MG/0.4 ML SQ ONE (08:51)
[2022-04-13] MEDS: ENOXAPARIN 40 MG/0.4 ML SQ SCH (09:00)
[2022-04-13] MEDS: VANCOMYCIN 1.75 GM in NA CHLORIDE 0.9% 500 ML IVPB SCH ×2 (11:07→21:19)
[2022-04-13] MEDS ORDERED: dexAMETHasone 10 MG/ML VIAL ONE (12:38)
[2022-04-13] MEDS ORDERED: BUPIVACAINE 0.25% PF 10 ML VIAL ONE (12:38)
[2022-04-13] MEDS ORDERED: LIDOCAINE 1% MPF 5 ML VIAL ONE (12:38)
[2022-04-13] MEDS ORDERED: SODIUM BICARB 50 MEQ/50ML VIAL ONE (12:39)
[2022-04-13] MEDS ORDERED: FENTANYL CITR 100 MCG/2 ML ONE (12:39)
[2022-04-13] MEDS ORDERED: EPINEPHRINE/PF 1 MG/ML AMP ONE (12:39)
[2022-04-13] MEDS ORDERED: BUPIVACAINE 0.5% Inj,MDV 50 mL VIAL ONE (12:39)
[2022-04-13] MEDS ORDERED: MIDAZOLAM HCL 2 MG/2 ML INJ ONE (12:39)
[2022-04-13] MEDS ORDERED: NA CIT/CITRIC AC 30 ML ORAL UDC ONE (12:41)
[2022-04-13] MEDS ORDERED: Ringers Lactate 1,000 ML IV ONE (12:41)
[2022-04-13] MEDS ORDERED: propofoL 200 MG/20 ML VIAL IV ONE (13:21)
[2022-04-13] MEDS ORDERED: KETOROLAC 30 MG/ML INJ ONE (13:21)
[2022-04-13] MEDS ORDERED: KETAMINE HCL 500 MG/5 ML VIAL ONE (13:21)
[2022-04-13] MEDS ORDERED: MEPERIDINE HCL 50 MG/ML IM PRN (13:50)
[2022-04-13 13:57] VITALS: O2SAT 100
[2022-04-13] MEDS ORDERED: VANCOMYCIN 1.5 GM in NA CHLORIDE 0.9% 500 ML IVPB SCH (14:00)
--- NOTE | 2022-04-13 16:05 | P.PN ---
Subjective Date of Service: 04/13/22 Chief Complaint: Cellulitus R Wrist No new complaint. Patient has been afebrile. Physical Examination - Vital Signs Temperature: 97.8 F Blood Pressure: 112/68 Pulse: 77 Respirations: 17 Pulse Ox (%): 94 - Physical Exam General: Alert, In no apparent distress, Oriented x3 HEENT: PERRLA, Mucous membr. moist/pink Neck: Supple, JVD not distended Respiratory: Clear to auscultation bilaterally, Normal air movement Cardiovascular: No edema, Regular rate/rhythm, Normal S1 S2 Gastrointestinal: Soft and benign, Non-distended Musculoskeletal: Swelling (Right forearm, wrist and dorsum of hand), Erythema (Mild erythema noted on the wrist area) Integumentary: Skin breakdown (Skin opening/abscess draining serous fluid on the ventral aspect of the right wrist) Neurological: Normal speech, Normal strength at 5/5 x4 extr Lymphatics: No axilla or inguinal lymphadenopathy - Studies Laboratory Data (last 24 hrs) 04/12/22 20:40: Sodium 138, Potassium 3.2 L, BUN 19 H, Creatinine 1.11, Glucose 96, Total Bilirubin 1.3 H, AST 21, ALT 40, Alkaline Phosphatase 69 04/12/22 20:40: WBC 12.1 H D, Hgb 13.8, Hct 40.5, Plt Count 278 Assessment And Plan - Current Problems (Diagnosis) (1) Abscess of skin of right wrist Current Visit: Yes Status: Acute (2) Cellulitis of right forearm Current Visit: Yes Status: Acute (3) Hypokalemia Current Visit: Yes Status: Acute (4) History of methamphetamine abuse Current Visit: Yes Status: Chronic - Plan Patient seen by hand surgeon-Dr. Negron, I&D performed. Continue antibiotics with coverage for MRSA. Follow blood cultures Pain management as needed Patient advised to quit intravenous illicit drug use. Monitor for compartment syndrome. Dr. Keller to follow.
[2022-04-13 17:34] LABS: Urine Appearance Clear (Clear); Urine Bilirubin Negative (Negative); Urine Blood Trace-intact (Negative); Urine Color Yellow (Yellow); Urine Glucose Negative (Negative); Urine Protein Negative (Negative); Urine Specific Gravity 1.015 (1.005-1.030)
[2022-04-13 17:40] LABS: Urine Bacteria NONE SEEN /HPF (NONE SEEN)
[2022-04-13 17:48] LABS: Barbiturates NEGATIVE (NEGATIVE); Benzodiazepines POSITIVE (NEGATIVE); Cocaine NEGATIVE (NEGATIVE); METHAMPHETAM POSITIVE (NEGATIVE); Methadone NEGATIVE (NEGATIVE); Opiates NEGATIVE (NEGATIVE); Phencyclidine NEGATIVE (NEGATIVE); THC Cannibis NEGATIVE (NEGATIVE)
--- NOTE | 2022-04-13 23:40 | OP ---
Surgeon: Daniel Keller MD Preoperative Diagnosis: Abscess of the right wrist. Postoperative Diagnosis: Abscess of the right wrist. Procedure Performed: Incision and drainage of the abscess with debridement of the skin and subcutane ous tissue. Anesthesia: After satisfactory induction of block, the right arm was prepped with Betadine scrub and Betadine paint. Dry sterile drapes were applied in usual manner. Tourniquet was inflated to 250 mm Hg. The hand was placed on a roll lock table. An elliptical incision was made over the abscess inje ction site. Cultures were taken for aerobes and anaerobes, extended proximally for the dissection of the pus. The wound was opened, irrigated, curetted, and jet lavaged with 3 L of dilute Betadine guy ution. Tourniquet was released. Electrocautery was used for hemostasis. Wound was packed with 1/4- inch Nu Gauze, soaked in Betadine and Kerlix. The patient tolerated the procedure well and returned to recovery. PHILIPP/JAZLYN Voice ID: [id number] Report ID: [id number]
[2022-04-14] MEDS: clonazePAM 1 MG TAB PO SCH ×3 (01:08→21:12)
[2022-04-14] MEDS: OLANZapine 10 MG TABLET PO PRN ×2 (01:08→22:48)
[2022-04-14] MEDS: PIPER TAZO 3.375 GM in NA CHLORIDE 0.9% 100 ML IV SCH ×3 (01:13→16:06)
[2022-04-14] MEDS: NA CHLORIDE 0.9% 1,000 ML IV SCH ×2 (05:24→14:01)
[2022-04-14] MEDS: MORPHINE 2 MG/ML SYR IV PRN ×3 (05:28→21:13)
[2022-04-14 06:19] LABS: Absolute Lymphocytes (CBC) 0.7 K/uL (0.7-4.9); Hematocrit 35.1 % (39.6-49.0); Lymphocytes % 6.1 % (15.3-44.8); MCV 90.2 fL (80-100); MPV 8.4 fL (7.6-11.3); RBC Red Blood Cell Count 3.89 M/uL (4.33-5.43)
[2022-04-14] MEDS: FLUOXETINE 20 MG CAP PO SCH (08:04)
[2022-04-14] MEDS: ENOXAPARIN 40 MG/0.4 ML SQ SCH (08:04)
[2022-04-14] MEDS: VANCOMYCIN 1.75 GM in NA CHLORIDE 0.9% 500 ML IVPB SCH ×2 (08:57→22:48)
[2022-04-14] MEDS ORDERED: SUCCINYLCHOLINE 20 MG/ML (10 ML) IV ONE (10:00)
--- NOTE | 2022-04-14 11:11 | DS ---
The patient is a 37-year-old white male, who is right-hand dominant, who injected himself with speed 2 or 3 days ago to right volar wrist area radial side, presents with infection. No medical problems. No surgeries. Smokes half a pack a day. Drinks alcohol rarely. He is on multiple medications see list. Physical Examination: GENERAL: He is 5 feet, 180 pounds. EXTREMITIES: On examination, he has an injection site of the right hand volar surface on the radial aspect of the wrist with surrounding swelling and erythema. Assessment: Abscess. Plan: Incision and drainage. PHILIPP/JAZLYN Voice ID: [id number] Report ID: [id number] [place]
--- NOTE | 2022-04-14 16:39 | P.PN ---
Subjective Date of Service: 04/14/22 Chief Complaint: Cellulitus R Wrist Patient is complaining of weakness and difficulty raising right arm at the shoulder level. He was given regional anesthesia-supraclavicular block. No fever. Physical Examination - Vital Signs Temperature: 97.7 F Blood Pressure: 105/58 Pulse: 68 Respirations: 14 Pulse Ox (%): 96 - Physical Exam General: Alert, In no apparent distress, Oriented x3 HEENT: Mucous membr. moist/pink Neck: Supple, JVD not distended Respiratory: Clear to auscultation bilaterally, Normal air movement Cardiovascular: Regular rate/rhythm, Normal S1 S2, Edema (Right upper extremity) Gastrointestinal: Normal bowel sounds, Soft and benign, Non-distended, No tenderness Musculoskeletal: Swelling (Right upper extremity) Integumentary: Other (Elliptical surgical incision on the ventral aspect of the right wrist, wound is clean, no bleeding.) Neurological: Other (Right upper extremity weakness) Lymphatics: No axilla or inguinal lymphadenopathy Assessment And Plan - Current Problems (Diagnosis) (1) Abscess of skin of right wrist Current Visit: Yes Status: Acute (2) Cellulitis of right forearm Current Visit: Yes Status: Acute (3) Hypokalemia Current Visit: Yes Status: Acute (4) History of methamphetamine abuse Current Visit: Yes Status: Chronic - Plan Status post I&D. Wound left open for packing and wound dressing. Betadine dressing recommended by Dr. Keller Continue antibiotics with coverage for MRSA. Blood cultures: No growth to date. Deep tissue wound culture is pending. Unclear what is causing his right upper extremity weakness at the shoulder level. Case discussed with anesthesia-Dr. Rahman. He mentioned the regional block was for lower brachial plexus and should not cause any shoulder weakness. Patient mentioned he is now feeling numbness in the whole arm which was not there before. It appears to sensation in the right upper extremity is improving. We will continue to monitor. Considering MRI of the upper extremity if no significant improvement in motor by tomorrow. Pain management as needed Patient advised to quit intravenous illicit drug use.
[2022-04-14] MEDS: CODEINE 30MG/APAP 300MG TAB PO PRN (23:37)
[2022-04-15] MEDS: PIPER TAZO 3.375 GM in NA CHLORIDE 0.9% 100 ML IV SCH ×2 (01:41→08:35)
[2022-04-15] MEDS: NA CHLORIDE 0.9% 1,000 ML IV SCH (01:50)
[2022-04-15 08:25] VITALS: BP 103/69; TEMP 98
[2022-04-15] MEDS: clonazePAM 1 MG TAB PO SCH (08:34)
[2022-04-15] MEDS: FLUOXETINE 20 MG CAP PO SCH (08:34)
[2022-04-15] MEDS: ENOXAPARIN 40 MG/0.4 ML SQ SCH (08:36)
--- NOTE | 2022-04-15 08:36 | P.DS ---
Admission Date: 04/12/22 Discharge Date: 04/15/22 Disposition: ROUTINE DISCHARGE Discharge Condition: FAIR Reason for Admission: Cellulitus R Wrist - Problems (1) Abscess of skin of right wrist Status: Acute (2) Cellulitis of right forearm Status: Acute (3) Hypokalemia Status: Acute (4) History of methamphetamine abuse Status: Chronic Brief History of Present Illness: Patient is a 37-year-old male with bipolar disorder and IV methamphetamine abuse who presented to the ED with complaints of infected wound on dorsal aspect of R wrist. Patient reports that he noticed a "boil" and popped it. which expressed a fluid with foul odor. He states he then cleaned it with hydrogen peroxide and slept. He then noticed that his entire forearm was erythematous, swollen, and painful. He had full range of motion and sensation in his arm, hand, and fingers. ED provider contacted Dr. Keller who recommended hospitalization for him to consult. He was started on IV vanc and zosyn in ED. Patient reported using IV meth 3 days prior. Labs significant for WBC 12, potassium 3.2. X-ray and ultrasound negative for foreign bodies, osteo, or thrombosis. Patient was admitted for further management. Hospital Course: Patient admitted to the medical floor and treated with aggressive IV antibiotics. Seen by Dr. Keller who performed incision and drainage. Patient reported weakness in the right shoulder within 24 hours after surgery. He was given regional anesthetic block on that arm. He was evaluated by anesthesia who recommended no intervention and that he will regain his strength. He did regained strenght in the right upper extremity back. Patient deemed stable for discharge per Dr. Keller. Deep wound culture grew Streptococcus. He is discharged with Bactrim, ibuprofen and Tylenol 3 for pain management and follow-up with Dr. Keller at his [place] office next week. Vital Signs/Physical Exam: Temp Pulse Resp BP Pulse Ox 98 F 52 14 103/69 98 04/15/22 08:00 04/15/22 08:00 04/15/22 08:00 04/15/22 08:00 04/15/22 08:00 General: Alert, In no apparent distress, Oriented x3 HEENT: Mucous membr. moist/pink Neck: JVD not distended Respiratory: Clear to auscultation bilaterally Cardiovascular: No edema, Regular rate/rhythm, Normal S1 S2 Gastrointestinal: Soft and benign, Non-distended, No tenderness Musculoskeletal: Swelling (Right upper extremity swelling improved) Integumentary: Other (Right wrist I&D wound looks clean.) Neurological: Normal strength at 5/5 x4 extr Laboratory Data at Discharge: WBC 10.7 K/uL (4.3-10.9) 04/14/22 05:20 Hgb 12.2 g/dL (13.6-17.9) L 04/14/22 05:20 Hct 35.1 % (39.6-49.0) L 04/14/22 05:20 Plt Count 261 K/uL (152-406) 04/14/22 05:20 Sodium 140 mmol/L (136-145) 04/14/22 05:20 Potassium 4.0 mmol/L (3.5-5.1) 04/14/22 05:20 BUN 6 mg/dL (7-18) L 04/14/22 05:20 Creatinine 0.69 mg/dL (0.55-1.3) 04/14/22 05:20 Glucose 154 mg/dL (74-106) H 04/14/22 05:20 Phosphorus 3.1 mg/dL (2.5-4.9) 04/13/22 05:07 Magnesium 2.0 mg/dL (1.8-2.4) 04/13/22 05:07 Total Bilirubin 1.3 mg/dL (0.2-1.0) H 04/12/22 20:40 AST 21 U/L (15-37) 04/12/22 20:40 ALT 40 U/L (12-78) 04/12/22 20:40 Alkaline Phosphatase 69 U/L (45-117) 04/12/22 20:40 Home Medications: Fluoxetine HCl 20 mg PO DAILY 04/13/22 clonazePAM [Clonazepam] 1 mg PO BID 04/13/22 Codeine/APAP [Tylenol #3*] 1 tab PO Q4H PRN #20 tab 04/15/22 Ibuprofen 400 mg PO TID PRN #30 tablet 04/15/22 Smz./Tmp. [Bactrim Ds 800 MG/160 MG] 1 tab PO BID #14 tab 04/15/22 New Medications: Smz./Tmp. [Bactrim Ds 800 MG/160 MG] 1 tab PO BID #14 tab Ibuprofen 400 mg PO TID PRN #30 tablet PRN Reason: PAIN Codeine/APAP [Tylenol #3*] 1 tab PO Q4H PRN #20 tab PRN Reason: Pain Scale 5-7 (Moderate) Physician Discharge Instructions: Clean wound with normal saline, pack with betadine soaked gauze and wrap with kerlix. Dress wound twice a day. Diet: Regular Activity: Ad estefania Followup: NONE,NONE [Primary Care Provider] - Daniel Keller MD [ACTIVE - CAN ADMIT] - (next week Monday04/19/2022 at [facility] Time spent managing pt's care (in minutes): 35
[2022-04-15] MEDS: CODEINE 30MG/APAP 300MG TAB PO PRN (08:38)
[2022-04-15] MEDS: VANCOMYCIN 1.75 GM in NA CHLORIDE 0.9% 500 ML IVPB SCH (09:20)
[2022-04-15] MEDS ORDERED: SMZ./TMP. 800/160 MG TABLET PO SCH (21:00)
--- OUTSIDE RECORDS SUMMARY | 2022-04-21 02:00 | XMS REPORT | Continuity of Care Document ---
:1985 Author Organization [facility] t Address [address] [place] [address] Care Team Providers Name Role Phone Sudarshan [...] active ity of problems problems [facility] Allergies, Adverse Reactions, Alerts Allergy Allergy Status Severity Reaction(s) Onset Inactive Treating Comm ents Source Name Type Date Date Clinician No Known DA Active U [facility] Allergie 3-14 [facility] s 00:00: e 00 [facility] No Known DA Active U [facility] All[facility]ie 3-14 [facility] e 00 [facility] No Known DA Active U 0 [facility] Allergie 3-07 [facility] 00[facility]: e 00 [facility] No Known DA Active U [facility] Allergie 3-07 [facility] s 00:00: e 00 [facility] No Known DA Active U 2008-10 [facility] Intolera 0-27 [facility] No Known DA Active U 2008-10 [facility] Intolera 0-27 [facility] 00:[facility] e 00 [facility] NO KNOWN Drug Active Univers ALLERGIE Class ity of S [facility] Social History Social Habit Start Date Stop Date Quantity Comments Source Exposure to Unable to assess Univers ity of SARS-CoV-2 [facility] (event) Branch Sex Ass[birth year] At [birth year] Universit y of 00:00:00 00:00:00 [facility] Smoking Status Start Date Stop Date Source Unknown if ever smoked [facility] Medications Ordered Filled Start Stop Current [...] ity of (ZyPREXA 23:15: 23:15 ONCE, 1 [place] ZYDIS) 00 :00 dose, [email or web address] Medical disintegrat 01/30/21 at Bra [facility] ing tablet 1815, JONATHAN 10 mg NaCl 0.9% No 1000mL at 999 Uni vers (NS) bolus 01-30 mL/hr, ity of infusion 22:15: 23:27 1,000 mL, Antonio as 1,000 mL 00 :00 IV Medical Infusion, Branch ONCE, 1 dose, [facility] [[email or web address]] 01/30/21 at 1715, JONATHAN No known No [facility] Vital Signs Vital Name Observation Time Observation Value Comments Source Systolic blood 2021-01-31 04:00:00 104 mm[Hg] Univer sity of pressure [facility] Diastolic blood 2021-01-31 04:00:00 70 mm[facility]Hg] [facility] rate 2021-01-31 04:00:00 59 [facility] Respiratory rate 2021-01-31 04:00:00 18 /min [facility] Oxygen saturation in 2021-01-31 04:00:00 99 /min [facility] Arterial blood by [facility] Pulse oximetry Branch Body temperature 2021-01-30 21:51:00 37.22 Franci [facility] Body weight 2021-01-30 21:50:00 97.523 kg [facility] Procedures Procedure Date / Time Performing Clinician Source Performed URINE DRUG (IMMUNOASSAY) 2021-01-30 22:04:00 Shy Martin [facility] DRUG [facility] SCREEN HEPATIC FUNCTION PANEL 2021-01-30 22:03:00 Shy Martin [facility] ([id number]) (ALB,T.PRO,BILI [facility] T,BU/BC,ALT,AST,ALK PHOS) BASIC METABOLIC PANEL 2021-01-30 22:03:[address] [facility] (NA, K, CL, CO2, Medical Branch GLUCOSE, BUN, CREATININE, CA) SALICYLATE 2021-01-30 22:03:00 Shy Martin [facility] ETHANOL 2021-01-30 22:03:00 Shy Martin [facility] CBC WITH DIFF 2021-01-30 22:03:00 Shy Martin [facility] URINALYSIS 2021-01-30 22:02:00 Shy Martin [facility] COVID-19 (ID NOW RAPID 2021-01-30 22:02:00 Shy Martin [facility] TESTING) Medical Branch NOTICE OF PRIVACY 2021-01-30 21:37:21 Doctor Unassigned, No Univ [facility] PRACTICES Name Medical Branch CONSENT/REFUSAL FOR 2021-01-30 21:37:00 Doctor Unassigned, No [facility] DIAGNOSIS AND TREATMENT Name Medical [place] Encounters Start End Encounter Admission Attending Care Care Encounter Source Date/Time Date/Time Type Type Clinicians Facility Department ID 2022-04-06 Outpatient [facility] [id number] [place] 05:42:38 [id number] Health 2020-12-14 Inpatient [facility]AB[facility] LJ [id number] [facility] 08:08:00 [id number] [facility] 2020-12-13 Inpatient HCABM LJ [id number] [facility] 19:49:00 [id number] [facility] 2020-12-06 Inpatient HCABM LJ [id number] [facility] 14:01:00 [id number] [facility] 2021-01-302021-01-30 [facility] [id number] Univers 16:48:00 23:59:00 Shy Alcantara [id number] ity [facility] [id number] [facility] [id number] [facility] 084 [place] 2021-01-30 2021-01-30 Emergency [facility] [id number] Univers 16:48:00 16:48:00 SHY manrique [facility] 2021-01-30 2021-01-30 Orders Doctor JAKE [id number] Univers 00:00:00 00:00:00 Only Unassigned, ESTEFANY [id number] ity of [place] [facility] 4.2.7.2.686 [facility] [id number] [facility] 009 Branch 2020-03-03 2020-03-03 Emergency X [facility] ERT [id number] Univers 09:37:00 09:37:00 [facility] Results Test Description Test Time Test Comments Results Result Comments Source SALICYLATE 2021-01-30 23:16:25 Test Item Value Reference Range Interpretation Comme nts SALICYLATE (test code = 1892416996) <10 mg/L TRACY (test code = TRACY) Therapeutic Range: ? Analgesic and Antipyretic Use ? 20-100 mg/L ? ? Anti-Inflammatory Use ? 100-250 mg/L Toxic Range: ? Greater than 300 mg/L [facility] 23:16:15 Test Item Value Reference Range Interpretation Comments ALCOHOL (test code = <10 mg/dL 8362751598) TRACY (test code = TRACY) <10 [id number] Toxic>100 Depression of TOOL AND CUTTER GRINDER>400 Fatalities Reported [facility]2021-05-01 23:16:10 Test Item Value Reference Range Interpretation Comments ACETAMINOP (test code = <10.0 10.0-30.0 L 5106115599) TRACY (test code = TRACY) Toxic: Greater than 200 ug/mL @ 4 hour post ingestion or greater than 50 ug/mL @ 12 hour post ingestion Lab Interpretation (test Abnormal code = 49351-1) [facility] (ALB, T.PRO, BILI T, BU/BC, ALT, AST, ALK PHOS)2021-01-30 23:14:14 Test Item Value Reference Range Interpretation Comments TOTAL BILI (test code = 4558691949) 0.8 mg/dL 0.1-1.1 BILI UNCON (test code = 8187948775) 0.6 mg/dL 0.1-1.1 BILI CONJ (test code = 4936064517) 0.0 mg/dL 0.0-0.3 T PROTEIN (test code = 4158140231) 7.5 g/dL 6.3-8.2 ALBUMIN (test code = 4596586328) 4.8 g/dL 3.5-5.0 ALK PHOS (test code = 2336416888) 63 U/L 34-122 ALTv (test code = 1742-6) 33 U/L 5-50 AST(SGOT) (test code = 9146626322) 36 U/L 13-40 Lab Interpretation (test code = Normal 62707-0) [facility] (NA, K, CL, CO2, GLUCOSE, BUN, CREATININE, CA)2021-01-30 23:13:54 Test Item Value Reference Range Interpretation Comments NA (test code = 142 mmol/L 135-145 0925769354) K (test code = 4.3 mmol/L 3.5-5.0 4651746615) CL (test code = 105 mmol/L 98-108 6967957415) CO2 TOTAL (test code 25 mmol/L 23-31 = 9469129305) AGAP (test code = 2-16 0607132467) BUN (test code = 17 mg/dL 7-23 6916300818) GLUCOSE (test code = 86 mg/dL 70-110 7297694910) CREATININE (test code 0.85 mg/dL 0.60-1.25 = 8695000682) CALCIUM (test code = 9.9 mg/dL 8.6-10.6 9314151383) eGFR (test code = mL/min/1.73m2 8834578844) TRACY (test code = TRACY) Association of [...] or urine or abnormalities in imaging tests). [facility]IMMUN[facility]SA[facility] - COMPREHENSIVE DRUG [id number] 23:05:57 Test Item Value Reference Range Interpretation Comments AMPHET (test code = Presumptive Positive Negative A 3263046779) CHACORTA U (test code = Negative Negative 4241143986) BENZO U (test code = Presumptive Positive Negative A 6058067344) Cocaine Metabolite (test Negative Negative code = 9120519479) METHADONE (test code = Negative Negative 8028346599) OPIATES (test code = Presumptive Positive Negative A 9915810244) PCP (test code = Negative Negative 7394748295) THC (test code = Presumptive Positive Negative A 1575361653) TRACY (test code = TRACY) Urine Drug [...] testing). Lab Interpretation (test Abnormal code = 62348-1) [facility] (ID NOW RAPID TESTING)2021-01-30 22:34:55 Test Item Value Reference Range Interpretation Comments SARS-CoV-2 Rapid ID NOW Not Detected Not Detected (test code = 08770-1) TRACY (test code = TRACY) ID NOW COVID-19 Assay is an isothermal nucleic acid amplification test intended for the qualitative detection of nucleic acid from SARS-CoV-2 viral RNA in nasopharyngeal (TELEGRAPH OPERATOR) specimens. It is used under Emergency Use [...] indicated. Lab Interpretation Normal (test code = 17703-4) [facility] CenterUrinalysis2021-05-01 22:30:19 Test Item Value Reference Range Interpretation Comments APPEARANCE (test code = Clear Clear 7143309118) COLOR (test code = Yellow Yellow 8548172009) PH (test code = 4.8-8.0 1613484312) SP GRAVITY (test code = 1.003-1.030 8174673266) GLU U QUAL (test code = Normal Normal 6276969727) BLOOD (test code = Negative Negative 3837606203) KETONES (test code = Negative Negative 8856244928) PROTEIN (test code = Negative Negative 2887-8) UROBILIN (test code = 2.0 mg/dL Normal A 9655115408) BILIRUBIN (test code = Negative Negative 5812004265) NITRITE (test code = Negative Negative 9524491941) LEUK DIONE (test code = Negative Negative 6859827177) RBC/HPF (test code = See_Comment [Autom ated message] 3910809987) The system [employer] generated this result transmit delroy reference range : 0 - 3 HPF. The refe rence range was not u sed to interpret th is result as normal/abnormal . WBC/HPF (test code = <1 See_Comment [Autom ated message] 5869595121) The system [employer] generated this result transmit delroy reference range : 0 - 5 HPF. The refe rence range was not u sed to interpret th is result as normal/abnormal . BACTERIA (test code = Negative Negative 2137652771) SQ EPITH (test code = <1 HPF 0669546493) Lab Interpretation (test Abnormal code = 13929-6) [facility] with [id number] 22:19:35 Test Item Value Reference Range Interpretation [...] RDW-SD (test code = 42.8 fL 38.5-51.6 86598-9) RDW-CV (test code = 13.3 % 12.1-15.4 788-0) PLT (test code = See_Comment H [Automated 777-3) message] The sy stem which generated this result transmitted reference range : 150 - 328 10*3/ ?L. The reference r maru was not used to interpret this result as normal/abnormal . MPV (test code = 9.9 fL 9.8-13.0 09433-3) NRBC/100 WBC (test See_Comment [Automat ed code = 7765906764) message] The system which generated this result transmitted reference range : 0.0 - 10.0 /100 WBCs. The refer ence range was not u sed to interpret th is result as normal/abnormal . NRBC x10^3 (test code <0.01 See_Comment [Auto mated = 6475505030) message] The s ystem which generated this result transmitted reference range : 10*3/?L. The reference range was not used to interpret this result as normal/abnormal . GRAN MAT (NEUT) % 79.2 % (test code = 770-8) IMM GRAN % (test code 0.50 % = 7580359925) LYMPH % (test code = 14.8 % 736-9) MONO % (test code = 4.9 % 5905-5) EOS % (test code = 0.2 % 713-8) BASO % (test code = 0.4 % 706-2) GRAN MAT x10^3(ANC) 9.77 10*3/uL 1.99-6.95 H (test code = 7268197915) IMM GRAN x10^3 (test 0.06 10*3/uL 0.00-0.06 code = 6101363789) LYMPH x10^3 (test code 1.82 10*3/uL 1.09-3.23 = 731-0) MONO x10^3 (test code 0.60 10*3/uL 0.36-1.02 = 742-7) EOS x10^3 (test code = 0.03 10*3/uL 0.06-0.53 L 711-2) BASO x10^3 (test code 0.05 10*3/uL 0.01-0.09 = 704-7) Lab Interpretation Abnormal (test code = 89733-4) [facility] [id number] 20:48:00 Test Item Value Reference Range Interpretation Comments COVID 19 INHOUSE AG (test code = NEGATIVE [id number]) URINALYSIS [id number] 16:11:00 Test Item Value Reference Range Interpretation [...] Urine Source? Clean CatchDRUGS OF ABUSE SCREEN [id number] 16:11:00 Test Item Value Reference Range Interpretation Comments URN COCAINE (test code = NEGATIVE See_Comment [A utomated message] COCAURN) The system [employer] generated this result transmitted ref erence range: [...] See_Comment [A utomated message] OPIATURN) The system [employer] generated this result transmitted ref erence range: [...] [A utomated message] = METHAURN) The system [employer] generated this result transmitted ref erence range: <300 ng/ mL. The reference r maru was not used to interpret this result as normal/abnor mal. Urine Source? Clean CatchURINALYSIS [id number] 15:45:00 Test Item Value Reference Range Interpretation [...] Urine Source? Clean CatchDRUGS OF ABUSE SCREEN [id number] 15:45:00 Test Item Value Reference Range Interpretation [...] See_Comment [A utomated message] OPIATURN) The system [employer] generated this result transmitted ref erence range: [...] [A utomated message] = METHAURN) The system [employer] generated this result transmitted ref erence range: <300 ng/ mL. The reference r maru was not used to interpret this result as normal/abnor mal. Urine Source? Clean CatchURINALYSIS [id number] 14:21:00 Test Item Value Reference Range Interpretation [...] Urine Source? Clean CatchDRUGS OF ABUSE SCREEN [id number] 14:21:00 Test Item Value Reference Range Interpretation Comments URN COCAINE (test code = See_Comment [A utomated message] COCAURN) The system [employer] generated this result transmitted ref erence range: [...] See_Comment [Automated message] = AMPHETURN) The system [employer] generated this result transmitted ref erence range: <1000 ng /mL. The reference r maru was not used to interpret this result as normal/abnor mal. URN BARBITURATE (test code See_Comment [Automated message] = BARBITURN) The system [employer] generated this result transmitted ref erence range: [...] See_Comment [A utomated message] OPIATURN) The system [employer] generated this result transmitted ref erence range: [...] = See_Comment [Automated message] METHAURN) The system [employer] generated this result transmitted ref erence range: <300 ng/ mL. The reference range was not used to int erpret this result as normal/abnormal . Urine Source? Clean CatchURINALYSIS [id number] 14:18:00 Test Item Value Reference Range Interpretation [...] Urine Source? Clean CatchDRUGS OF ABUSE SCREEN [id number] 14:18:00 Test Item Value Reference Range Interpretation Comments URN COCAINE (test code = See_Comment [A utomated message] COCAURN) The system [employer] generated this result transmitted ref erence range: [...] See_Comment [Automated message] = AMPHETURN) The system [employer] generated this result transmitted ref erence range: <1000 ng /mL. The reference r maru was not used to interpret this result as normal/abnor mal. URN BARBITURATE (test code See_Comment [Automated message] = BARBITURN) The system [employer] generated this result transmitted ref erence range: [...] See_Comment [A utomated message] OPIATURN) The system [employer] generated this result transmitted ref erence range: [...] = See_Comment [Automated message] METHAURN) The system [employer] generated this result transmitted ref erence range: <300 ng/ mL. The reference range was not used to int erpret this result as normal/abnormal . Urine Source? Clean CatchBASIC METABOLIC [id number] 12:13:00 Test Item Value Reference Range Interpretation [...] Modifi ed MDRD (test code = GFR) formula. ronic kidney disease is defined as eith er kidney damageor GFR <60 mL/min/1.73 m2 for >3 months. [Automated mess age] The system [employer] generated this result transmitted ref erence range: >=60. Th e reference range was not used to int erpret this result as normal/abnormal . CREATININE (test 1.00 mg/dL 0.7-1.3 N code = CREAT) BUN/CREATININE RATIO 17.3 10-20 N (test code = BUN/CREA) CALCIUM (test code = 9.9 mg/dL 8.5-10.1 N CA) HEPATIC FUNCTION [id number] 12:13:00 Test Item Value Reference Range Interpretation [...] range due ALKP) to change in reagent. [id number] 12:13:00 Test Item Value Reference Range Interpretation Comments ACETAMINOPHEN (test < 10 mcg/mL 10-30 L A RANGE OF 10-30 code = ACET) mcg/mL IS A THERAPEUTIC RAN GE. TOXIC CONCENTRATIONS: >150 mcg/mL AT 4 ANTONIO RS AFTER INGESTION >= 50 mcg/mL AT 12 HOURS AFTER INGESTION [id number] 12:13:00 Test Item Value Reference Range Interpretation Comments SALICYLATE (test code = RENALDO) < 3.0 mg/dL 2.8-20.0 N [id number] 12:13:00 Test Item Value Reference Range Interpretation [...] [facility]/O [id number] 11:49:00 Test Item Value Reference Range Interpretation [...] 6.7-11.0 N = MPV) COVID 19 INHOUSE [id number] 00:12:00 Test Item Value Reference Range Interpretation Comments COVID 19 INHOUSE AG (test code = NEGATIVE [id number]) URINALYSIS [id number] 20:58:00 Test Item Value Reference Range Interpretation [...] Urine Source? Clean CatchDRUGS OF ABUSE SCREEN [id number] 20:58:00 Test Item Value Reference Range Interpretation [...] See_Comment [A utomated message] OPIATURN) The system [employer] generated this result transmitted ref erence range: [...] [A utomated message] = METHAURN) The system [employer] generated this result transmitted ref erence range: <300 ng/ mL. The reference r maru was not used to interpret this result as normal/abnor mal. Urine Source? Clean CatchBASIC METABOLIC [id number] 20:58:00 Test Item Value Reference Range Interpretation [...] >3 months. [Automated mess age] The system [employer] generated this result transmitted ref erence range: >=60. Th e reference range was not used to int erpret this result as normal/abnormal . CREATININE (test 0.80 mg/dL 0.7-1.3 N code = CREAT) BUN/CREATININE RATIO 19.3 10-20 N (test code = BUN/CREA) CALCIUM (test code = 8.8 mg/dL 8.5-10.1 N CA) HEPATIC FUNCTION [id number] 20:58:00 Test Item Value Reference Range Interpretation [...] range due ALKP) to change in reagent. [id number] 20:58:00 Test Item Value Reference Range Interpretation Comments TROPONIN-I (test code = TROPI) < 0.006 ng/mL 0-0.045 N [id number] 20:58:00 Test Item Value Reference Range Interpretation Comments ACETAMINOPHEN (test < 10 mcg/mL 10-30 L A RANGE OF 10-30 code = ACET) mcg/mL IS A THERAPEUTIC RAN GE. TOXIC CONCENTRATIONS: >150 mcg/mL AT 4 ANTONIO RS AFTER INGESTION >= 50 mcg/mL AT 12 HOURS AFTER INGESTION [id number] 20:58:00 Test Item Value Reference Range Interpretation Comments SALICYLATE (test code = RENALDO) < 3.0 mg/dL 2.8-20.0 N [id number] 20:58:00 Test Item Value Reference Range Interpretation [...] [facility]/BRAIN W/O [id number] 20:52:00 [facility])Name: TEJ GUADALUPE : 1985 Sex: M Name: TEJ GUADALUPE [facility] : Age/S: 35 / M [address] [facility] Unit #: [id number] Loc: [place] [address] Phys: Shaggy Morrow MD Acct: [id number] Dis Date: Status: PRE ER PHONE #: [phone] Exam Date: 12/13/20202017 FAX #: [phone] Reason: CONFUSION EXAMS: CPT CODE: [id number] CT HEAD/BRAIN W/O CONT 04226 HISTORY: CONFUSION TECHNIQUE: Noncontrast 2.5 mm axial [...] RT(R)(CT) CTDI: DLP: Trnscb Date/Time: 12/13/2020 (2051) t.SDR.[id number] Orig Print D/T: S: 12/13/2020 (2054) PAGE1 Signed Report URINALYSIS [id number] 20:39:00 Test Item Value Reference Range Interpretation [...] Urine Source? Clean CatchDRUGS OF ABUSE SCREEN [id number] 20:39:00 Test Item Value Reference Range Interpretation Comments URN COCAINE (test code = See_Comment [A utomated message] COCAURN) The system [employer] generated this result transmitted ref erence range: [...] See_Comment [Automated message] = AMPHETURN) The system [employer] generated this result transmitted ref erence range: <1000 ng /mL. The reference r maru was not used to interpret this result as normal/abnor mal. URN BARBITURATE (test code See_Comment [Automated message] = BARBITURN) The system [employer] generated this result transmitted ref erence range: [...] See_Comment [A utomated message] OPIATURN) The system [employer] generated this result transmitted ref erence range: [...] = See_Comment [Automated message] METHAURN) The system [employer] generated this result transmitted ref erence range: <300 ng/ mL. The reference range was not used to int erpret this result as normal/abnormal . Urine Source? Clean CatchURINALYSIS [id number] 20:29:00 Test Item Value Reference Range Interpretation [...] Urine Source? Clean CatchDRUGS OF ABUSE SCREEN [id number] 20:29:00 Test Item Value Reference Range Interpretation Comments URN COCAINE (test code = See_Comment [A utomated message] COCAURN) The system [employer] generated this result transmitted ref erence range: [...] See_Comment [Automated message] = AMPHETURN) The system [employer] generated this result transmitted ref erence range: <1000 ng /mL. The reference r maru was not used to interpret this result as normal/abnor mal. URN BARBITURATE (test code See_Comment [Automated message] = BARBITURN) The system [employer] generated this result transmitted ref erence range: [...] See_Comment [A utomated message] OPIATURN) The system [employer] generated this result transmitted ref erence range: [...] = See_Comment [Automated message] METHAURN) The system [employer] generated this result transmitted ref erence range: <300 ng/ mL. The reference range was not used to int erpret this result as normal/abnormal . Urine Source? [facility] [id number] 20:22:00 Test Item Value Reference Range Interpretation [...]
== END 2022-04-15 11:34 | disposition home or self-care (01) | DRG 603 ==
LOC: ER 18:18 → ERHOLD 22:10 → 4TH 04-13 11:18
PROVIDERS: ADMIT Internal Medicine; ATTEND Internal Medicine
PROC: 0J9G0ZX Drainage of Right Lower Arm Subcutaneous Tissue and Fascia, Open Approach, Diagnostic (ICD-10-PCS; principal; 2022-04-13 13:00)
DX: L02.413 Cutaneous abscess of right upper limb (principal); B95.5 Unspecified streptococcus as the cause of diseases classified elsewhere; L03.113 Cellulitis of right upper limb; E87.6 Hypokalemia; F15.10 Other stimulant abuse, uncomplicated; F31.9 Bipolar disorder, unspecified; R53.1 Weakness; R20.0 Anesthesia of skin; F17.210 Nicotine dependence, cigarettes, uncomplicated; Z20.822 Contact with and (suspected) exposure to COVID-19
CPT/HCPCS: 36415; 80048; 80053; 80202; 80307; 81003; 81015; 83605; 83735; 84100; 84145; 85025; 87040; 87070; 87075; 87205; 88304; 93005; 93971; 96374; 96375; 99284; J0171; J0330; J1100; J1650; J2250; J2270; J2405; J2543; J2704; J3010; J3370; J7030; J7040; J7050; J7120; U0003

== ENCOUNTER → 2022-04-15 | Emergency (ER) | payer SELFPAY ==
[~2022-04-15] MED LIST: MORPHINE 4 MG/ML SYR ONE; NA CHLORIDE 0.9% 1,000 ML ONE; ONDANSETRON 4 MG/2 ML VIAL ONE
== END ==
LOC: ER 11:58
DX: Z02.9 Encounter for administrative examinations, unspecified (principal)

== ENCOUNTER 2022-04-30 15:25 | Emergency (ER) | payer SELFPAY ==
--- NOTE | 2022-04-30 16:22 | EDPHYS ---
Physician Documentation [facility] [place] Name: Anthony Au Age: 37 yrs Sex: Male : 1985 Arrival Date: 04/30/2022 Time: 15:27 Bed Waiting Private MD: ED Physician Amparo Kline HPI: 04/30 16:24 This 37 yrs old Male presents to ER via Ambulatory with complaints of Post sd2 Surgical Pain, POST SURGICAL SWELLING/REDNESS. 16:24 Associated signs and symptoms: The patient has no apparent associated signs or sd2 symptoms, Pertinent positives: Pertinent negatives: drainage. Modifying factors: the symptoms are alleviated by nothing, the symptoms are aggravated by nothing. 37 yo M presents with CC of R forearm nodules. Reports he just noticed them today and that they are red, raised and warm. Pt with recent cellulitis last month due to using a dirty needle to inject drugs that caused him to have a surgery just above this area on his wrist. He reports he has completed antibiotics and has been doing well until this started. He denies any recent injections and states he no longer shoots up or uses drugs since the surgery. Denies any fevers or vomiting. . Historical: - Allergies: 15:51 No Known Allergies; hb - PMHx: 15:51 Anxiety; Asthma; Bipolar disorder; Depression; detox seizures; scalp laceration repair.;hb - PSHx: 15:51 I\T\D; hb - Immunization history:: Adult Immunizations up to date. - Social history:: Smoking status: Patient denies any tobacco usage or history of. ROS: 16:24 Constitutional: Negative for fever, chills, and weight loss, Eyes: Negative for injury, sd2 pain, redness, and discharge, Cardiovascular: Negative for chest pain, palpitations, and edema, Respiratory: Negative for shortness of breath, cough, wheezing. Abdomen/GI: Negative for abdominal pain, nausea, vomiting, diarrhea. MS/Extremity: Negative for injury and deformity, Skin: Positive for redness. Negative for injury. Neuro: Negative for headache, numbness and tingling. Exam: 16:24 Constitutional: This is a well developed, well nourished patient who is awake, alert, sd2 and in no acute distress. Head/Face: Normocephalic, atraumatic. Skin: Warm, dry with normal turgor. 3 small erythematous warm indurated nodules noted to R ventral aspect of forearm with no associated drainage or fluctuance. MS/ Extremity: Pulses equal, no cyanosis. Neurovascular intact. Full, normal range of motion. Ambulatory without difficulty. Psych: Awake, alert, with orientation to person, place and time. Behavior, mood, and affect are within normal limits. Vital Signs: 15:49 BP 129 / 55; Pulse 79; Resp 16; Temp 98.4; Pulse Ox 96% on R/A; Weight 86.18 kg; Height hb 5 ft. 8 in. (172.72 cm); Pain 7/10; 15:49 Body Mass Index 28.89 (86.18 kg, 172.72 cm) hb MDM: 16:20 Differential diagnosis: abscess, allergic reaction, cellulitis, insect bite, among sd2 others. Data reviewed: vital signs, nurses notes. Counseling: I had a detailed discussion with the patient and/or guardian regarding: the historical points, exam findings, and any diagnostic results supporting the discharge/admit diagnosis, the need for outpatient follow up, to return to the emergency department if symptoms worsen or persist or if there are any questions or concerns that arise at home. Medical screen evaluation completed. EMTALA emergency medical condition absent. ED course: Discussed that patient has very early abscesses present. No visible fluid collections that could be drained at this point. Pt to be placed on double coverage antibiotics with very close follow up with PCP. Given strict return precautions. Verbalizes understanding of discharge plan and strict return precautions.. 16:22 Patient medically screened. sd2 Administered Medications: No medications were administered Disposition Summary: 04/30/22 16:22 Discharge Ordered Location: Home sd2 Problem: new sd2 Symptoms: are unchanged sd2 Condition: Stable sd2 Diagnosis - Right arm abscesses and cellulitis sd2 Followup: sd2 - With: Private Physician - When: 1 - 2 days - Reason: Wound Recheck, Recheck today's complaints, Continuance of care, Re-evaluation by your physician Followup: sd2 - With: Emergency Department - When: As needed - Reason: Discharge Instructions: - Discharge Summary Sheet sd2 - Skin Abscess sd2 - Cellulitis, Adult sd2 Forms: - Medication Reconciliation Form sd2 - Thank You Letter sd2 - Antibiotic Education sd2 - Prescription Opioid Use sd2 Prescriptions: - Cephalexin 500 mg Oral Capsule - take 1 capsule by ORAL route every 6 hours for 10 days; 40 capsule; Refills: 0, sd2 Product Selection Permitted - Bactrim DS 800-160 mg Oral Tablet - take 1 tablet by ORAL route every 12 hours for 10 days; 20 tablet; Refills: 0, sd2 Product Selection Permitted Signatures: Jessie Hinojosa RN RN Ampaor Kline MD MD sd2 Corrections: (The following items were deleted from the chart) 16:27 16:20 ED course: Discussed that patient has very early abscesses present. No visible sd2 fluid collections. Pt to be placed on double coverage antibiotics with very close follow up with PCP. Given strict return precautions. Verbalizes understanding of discharge plan and strict return precautions.. sd2
--- NOTE | 2022-04-30 16:22 | ER ---
Nurse's Notes [facility] Name: Anthony Au Age: 37 yrs Sex: Male : 1985 Arrival Date: 04/30/2022 Time: 15:27 Bed Waiting [facility] MD: Diagnosis: Right arm abscesses and cellulitis Presentation: 04/30 15:49 Chief complaint: Recently admitted for cellulitis of right arm, noticed new areas of hb swelling and redness near surgical site 2 days ago. Coronavirus screen: At this time, the client does not indicate any symptoms associated with coronavirus-19. Ebola Screen: No symptoms or risks identified at this time. Initial Sepsis Screen: Does the patient meet any 2 criteria? No. Patient's initial sepsis screen is negative. Does the patient have a suspected source of infection? No. Patient's initial sepsis screen is negative. Risk Assessment: Do you want to hurt yourself or someone else? Patient reports no desire to harm self or others. Onset of symptoms was April 28, 2022. 15:49 Method Of Arrival: Ambulatory hb 15:49 Acuity: MARKY 3 hb Historical: - Allergies: 15:51 No Known Allergies; hb - PMHx: 15:51 Anxiety; Asthma; Bipolar disorder; Depression; detox seizures; scalp laceration repair.;hb - PSHx: 15:51 I\T\D; hb - Immunization history:: Adult Immunizations up to date. - Social history:: Smoking status: Patient denies any tobacco usage or history of. Vital Signs: 15:49 BP 129 / 55; Pulse 79; Resp 16; Temp 98.4; Pulse Ox 96% on R/A; Weight 86.18 kg; Height hb 5 ft. 8 in. (172.72 cm); Pain 7/10; 15:49 Body Mass Index 28.89 (86.18 kg, 172.72 cm) hb ED Course: 15:27 Patient arrived in ED. [id number] 15:32 Amparo Kline MD is Attending Physician. sd2 15:51 Triage completed. hb 15:51 Arm band placed on. hb Administered Medications: No medications were administered Outcome: 16:22 Discharge ordered by MD. sd2 16:36 Discharged to home ambulatory. hb 16:36 Condition: stable 16:36 Discharge instructions given to patient, Instructed on discharge instructions, follow up and referral plans. medication usage, Demonstrated understanding of instructions, follow-up care, medications, Prescriptions given X 2. 16:36 Patient left the ED. hb Signatures: Jessie Hinojosa RN RN Summer Hitchcock6 Amparo Kline MD MD sd2 Corrections: (The following items were deleted from the chart) 15:51 15:48 Chief complaint: hb hb
[2022-04-30 17:33] VITALS: BP 129/55; TEMP 98.4; O2SAT 96
== END 2022-04-30 16:36 | disposition home or self-care (01) ==
LOC: ER 15:25
DX: L03.113 Cellulitis of right upper limb (principal); L02.413 Cutaneous abscess of right upper limb; Z98.890 Other specified postprocedural states; F31.9 Bipolar disorder, unspecified
CPT/HCPCS: 99282

== ENCOUNTER 2022-05-08 15:57 | Emergency (ER) | payer SELFPAY ==
--- OUTSIDE RECORDS SUMMARY | 2022-05-08 16:02 | XMS REPORT | Continuity of Care Document ---
:1985 Author Organization [facility] t Address [address] [place] [address] Care Team Providers Name Role Phone Shy Martin DO Attending Clinician SHY MARTIN Attending Clinician Unavailable Doctor Unassigned, [place] Attending Clinician Unavailable Physician, No Primary or Family Admitting Clinician Unavaila ble Payers Payer Name Policy Type Policy Number Effective Date Expiration Date S ource Problems Condition Condition Condition Status Onset Resolution Last Treating Co mments Source Name Details Category Date Date Treatment Clinician Date No known No known Disease Unive rs active active ity of problems problems [facility] Allergies, Adverse Reactions, Alerts Allergy Allergy Status Severity Reaction(s) Onset Inactive Treating Comm ents Source Name Type Date Date Clinician No Known DA Active U 0 [facility] No Known DA Active U [facility] 00:[facility]: e 00 [facility] Center No Known DA Active U 2020-0 [facility] No Known DA Active U [facility]- [facility] 00:[facility]: e 00 [facility] Center No Known DA Active U 2008-10 [facility] Intolera 0-27 [facility] 00:00: e 00 [facility] Center No Known DA Active U 2008-10 [facility] 0-27 [facility] 00:00: e 00 [facility] Center NO KNOWN Drug Active Univers ALLERGIE Class [facility] [place] [facility] Social History Social Habit Start Date Stop Date Quantity Comments Source Exposure to Unable to assess Univers ity of SARS-CoV-2 [place] [facility] (event) [facility] Sex Assigned At [birth year] Univers[facility] y of 00:00:00 00:00:00 [facility] Smoking Status Start Date Stop Date Source Unknown if ever smoked [facility] y [facility] Medications Ordered Filled Start Stop Current Ordering Indication Dosage Frequency Signature Comments Components Source Medication Medication Date Date Medication? Clinician (SIG) Name Name nicotine Yes 1{patch 1 Patch, Un adam (NICODERM) 01-31 } Topical, ity o f 21 mg/24 hr 01:00: Administer [place] patch 1 00 over 24 Medical Patch Hours, Branch Q24H, First dose on [facility] 01/30/21 at 2000, Until Discontinu ed, Routine OLANZapine No 10mg 10 mg, [facility] ers ZYDIS 01-30 Oral, ity of (ZyPREXA 23:15: 23:15 ONCE, 1 [place] ZYDIS) 00 :00 dose, [facility] Medical disintegrat 01/30/21 at [facility] ing tablet 1815, JONATHAN 10 mg NaCl 0.9% No 1000mL at 999 Uni vers (NS) bolus 01-30 mL/hr, ity of infusion 22:15: 23:27 1,000 mL, Antonio as 1,000 mL 00 :00 IV Medical Infusion, Branch ONCE, 1 dose, [facility] 01/30/21 at 1715, JONATHAN No known No [facility] Sign[facility] Vital Name Observation Time Observation Value Comments Source Systolic blood 2021-01-31 04:00:00 104 mm[Hg] Univer sity of pressure [facility] Diastolic blood 2021-01-31 04:00:00 70 mm[facility]Hg] [facility] Heart rate 2021-01-31 04:00:00 59 /min [facility] ty [facility] Respiratory rate 2021-01-31 04:00:00 18 /min [facility] Oxygen saturation in 2021-01-31 04:00:00 99 /min [facility] Arterial blood by [facility] Pulse oximetry Branch Body temperature 2021-01-30 21:51:00 37.22 Franci [facility] Body weight 2021-01-30 21:50:00 97.523 kg [facility] Procedures Procedure Date / Time Performing Clinician Source Performed URINE DRUG (IMMUNOASSAY) 2021-01-30 22:04:00 Shy Martin [facility] DRUG Medical [facility] SCREEN HEPATIC FUNCTION PANEL 2021-01-30 22:03:00 [id number] (ALB,T.PRO,BILI [facility] Branch T,BU/BC,ALT,AST,ALK PHOS) BASIC METABOLIC PANEL 2021-01-30 22:03:00 [facility] (NA, K, CL, CO2, Medical Branch GLUCOSE, BUN, CREATININE, CA) SALICYLATE 2021-01-30 22:03:[address] [facility] ETHANOL 2021-01-30 22:03:[address] [facility] CBC WITH DIFF 2021-01-30 22:03:[address] [facility] URINALYSIS 2021-01-30 22:02:[address] [facility] COVID-19 (ID NOW RAPID 2021-01-30 22:02:00 Shy Martin [facility] TESTING) Medical Branch NOTICE OF PRIVACY 2021-01-30 21:37:21 Doctor [facility]igned[facility] PR[facility] Name Medical Branch CONSENT/REFUSAL FOR 2021-01-30 21:37:00 Doctor Unassigned, No [facility] DIAGNOSIS AND TREATMENT Name [facility] Encounters Start End Encounter Admission Attending Care Care Encounter Source Date/Time Date/Time Type Type Clinicians Facility Department ID 2022-04-06 Outpatient [facility] [id number] [place] 05:42:38 [id number] Health 2020-12-14 Inpatient [facility] [id number] [facility] 08:08:00 [id number] [facility] 2020-12-13 Inpatient [facility] LJ [id number] [facility] 19:49:00 [id number] [facility] 2020-12-06 Inpatient [facility] LJ [id number] [facility] 14:01:00 [id number] [facility] 2021-01-30 2021-01-30 Emergency [facility] [id number] Univers 16:48:00 23:59:00 Shy Alcantara [id number] ity [facility] [id number] [facility] [id number] [facility] 084 Branch 2021-01-30 2021-01-30 Emergency X [facility] ERT [id number] Univers 16:48:00 16:48:00 SHY ity [facility] 2021-01-30 2021-01-30 Orders Doctor JAKE [id number] Univers 00:00:00 00:00:00 Only Unassigned, ESTEFANY [id number] ity of [place] [facility] [id number] [facility] [id number] [facility] 009 Branch 2020-03-03 2020-03-03 Emergency X [facility] ERT [id number] Univers 09:37:00 09:37:00 [facility] Results Test Description Test Time Test Comments Results Result Comments Source SALICYLATE 2021-01-30 23:16:25 Test Item Value Reference Range Interpretation Comme nts SALICYLATE (test code = 7040257659) <10 mg/L TRACY (test code = TRACY) Therapeutic Range: ? Analgesic and Antipyretic Use ? 20-100 mg/L ? ? Anti-Inflammatory Use ? 100-250 mg/L Toxic Range: ? Greater than 300 mg/L [facility]16[facility]15 Test Item Value Reference Range Interpretation Comments ALCOHOL (test code = <10 mg/dL 7998915322) TRACY (test code = TRACY) <10 [id number] Toxic>100 Depression of PAYER SPECIALIST>400 Fatalities Reported [facility] 23:16:10 Test Item Value Reference Range Interpretation Comments ACETAMINOP (test code = <10.0 10.0-30.0 L 6619432445) TRACY (test code = TRACY) Toxic: Greater than 200 ug/mL @ 4 hour post ingestion or greater than 50 ug/mL @ 12 hour post ingestion Lab Interpretation (test Abnormal code = 17622-0) [facility] (ALB, T.PRO, BILI T, BU/BC, ALT, AST, ALK PHOS)2021-01-30 23:14:14 Test Item Value Reference Range Interpretation Comments TOTAL BILI (test code = 4073452865) 0.8 mg/dL 0.1-1.1 BILI UNCON (test code = 3020238442) 0.6 mg/dL 0.1-1.1 BILI CONJ (test code = 9181318315) 0.0 mg/dL 0.0-0.3 T PROTEIN (test code = 7265821474) 7.5 g/dL 6.3-8.2 ALBUMIN (test code = 5616596409) 4.8 g/dL 3.5-5.0 ALK PHOS (test code = 1593714868) 63 U/L 34-122 ALTv (test code = 1742-6) 33 U/L 5-50 AST(SGOT) (test code = 9717350702) 36 U/L 13-40 Lab Interpretation (test code = Normal 88659-9) [facility] (NA, K, CL, CO2, GLUCOSE, BUN, CREATININE, CA)2021-01-30 23:13:54 Test Item Value Reference Range Interpretation Comments NA (test code = 142 mmol/L 135-145 2079398088) K (test code = 4.3 mmol/L 3.5-5.0 3985348561) CL (test code = 105 mmol/L 98-108 2130298472) CO2 TOTAL (test code 25 mmol/L 23-31 = 3097229962) AGAP (test code = 2-16 5412532518) BUN (test code = 17 mg/dL 7-23 4554292754) GLUCOSE (test code = 86 mg/dL 70-110 9599445906) CREATININE (test code 0.85 mg/dL 0.60-1.25 = 4682405466) CALCIUM (test code = 9.9 mg/dL 8.6-10.6 2562491197) eGFR (test code = mL/min/1.73m2 2032213480) TRACY (test code = TRACY) Association of [...] or urine or abnormalities in imaging tests). [facility]IM[facility] - COMPREHENSIVE DRUG [id number] 23:05:57 Test Item Value Reference Range Interpretation Comments AMPHET (test code = Presumptive Positive Negative A 3911360584) CHACORTA U (test code = Negative Negative 8008666730) BENZO U (test code = Presumptive Positive Negative A 6724406951) Cocaine Metabolite (test Negative Negative code = 3550659236) METHADONE (test code = Negative Negative 7225180253) OPIATES (test code = Presumptive Positive Negative A 3468180434) PCP (test code = Negative Negative 6186378595) THC (test code = Presumptive Positive Negative A 8822504936) TRACY (test code = TRACY) Urine Drug [...] testing). Lab Interpretation (test Abnormal code = 94288-2) [facility] (ID NOW RAPID TESTING)2021-01-30 22:34:55 Test Item Value Reference Range Interpretation Comments SARS-CoV-2 Rapid ID NOW Not Detected Not Detected (test code = 42251-7) TRACY (test code = TRACY) ID NOW COVID-19 Assay is an isothermal nucleic acid amplification test intended for the qualitative detection of nucleic acid from SARS-CoV-2 viral RNA in nasopharyngeal (INDUSTRY ANALYST) specimens. It is used under Emergency Use [...] indicated. Lab Interpretation Normal (test code = 62128-3) [facility] CenterUrinalysis2021-[facility] 22:30:19 Test Item Value Reference Range Interpretation Comments APPEARANCE (test code = Clear Clear 7291810454) COLOR (test code = Yellow Yellow 9655027502) PH (test code = 4.8-8.0 5420644707) SP GRAVITY (test code = 1.003-1.030 8942763294) GLU U QUAL (test code = Normal Normal 7327471147) BLOOD (test code = Negative Negative 7066568322) KETONES (test code = Negative Negative 9627874784) PROTEIN (test code = Negative Negative 2887-8) UROBILIN (test code = 2.0 mg/dL Normal A 3933795260) BILIRUBIN (test code = Negative Negative 3323890208) NITRITE (test code = Negative Negative 6101139599) LEUK DIONE (test code = Negative Negative 9498750727) RBC/HPF (test code = See_Comment [Autom ated message] 1435582812) The system Follicum generated this result transmit delroy reference range : 0 - 3 HPF. The refe rence range was not u sed to interpret th is result as normal/abnormal . WBC/HPF (test code = <1 See_Comment [Autom ated message] 3642248161) The system Follic[employer] generated this result transmit delroy reference range : 0 - 5 HPF. The refe rence range was not u sed to interpret th is result as normal/abnormal . BACTERIA (test code = Negative Negative 7285389726) SQ EPITH (test code = <1 HPF 8703476966) Lab Interpretation (test Abnormal code = 46350-5) [facility] with [id number] 22:19:35 Test Item Value Reference Range Interpretation Comments WBC (test code = See_Comment H [Automated 4890-2) message] The sy stem which generated this result transmitted reference range : 4.20 - 10.70 10*3/?L. The reference range was not used to interpret this result as normal/abnormal . RBC (test code = See_Comment [Automated 993-8) message] The sy stem which generated this [...] RDW-SD (test code = 42.8 fL 38.5-51.6 76919-0) RDW-CV (test code = 13.3 % 12.1-15.4 788-0) PLT (test code = See_Comment H [Automated 777-3) message] The sy stem which generated this result transmitted reference range : 150 - 328 10*3/ ?L. The reference r maru was not used to interpret this result as normal/abnormal . MPV (test code = 9.9 fL 9.8-13.0 40703-9) NRBC/100 WBC (test See_Comment [Automat ed code = 3389038953) message] The system which generated this result transmitted reference range : 0.0 - 10.0 /100 WBCs. The refer ence range was not u sed to interpret th is result as normal/abnormal . NRBC x10^3 (test code <0.01 See_Comment [Auto mated = 8789747072) message] The s ystem which generated this result transmitted reference range : 10*3/?L. The reference range was not used to interpret this result as normal/abnormal . GRAN MAT (NEUT) % 79.2 % (test code = 770-8) IMM GRAN % (test code 0.50 % = 4226463876) LYMPH % (test code = 14.8 % 736-9) MONO % (test code = 4.9 % 5905-5) EOS % (test code = 0.2 % 713-8) BASO % (test code = 0.4 % 706-2) GRAN MAT x10^3(ANC) 9.77 10*3/uL 1.99-6.95 H (test code = 8525112474) IMM GRAN x10^3 (test 0.06 10*3/uL 0.00-0.06 code = 8202107638) LYMPH x10^3 (test code 1.82 10*3/uL 1.09-3.23 = 731-0) MONO x10^3 (test code 0.60 10*3/uL 0.36-1.02 = 742-7) EOS x10^3 (test code = 0.03 10*3/uL 0.06-0.53 L 711-2) BASO x10^3 (test code 0.05 10*3/uL 0.01-0.09 = 704-7) Lab Interpretation Abnormal (test code = 25924-8) [facility] [id number] 20:48:00 Test Item Value Reference Range Interpretation Comments COVID 19 INHOUSE AG (test code = NEGATIVE PTSWN84WYLH) URINALYSIS [id number] 16:11:00 Test Item Value Reference Range Interpretation [...] Urine Source? Clean CatchDRUGS OF ABUSE SCREEN [id number] 16:11:00 Test Item Value Reference Range Interpretation [...] See_Comment [A utomated message] OPIATURN) The system Follicum generated this result transmitted ref erence range: <300 ng/ mL. The reference r mrau was not used to interpret this result as normal/abnor mal. URN PHENCYCLIDINE (PCP) NEGATIVE See_Comment [Au tomated message] (test code = PHENCURN) The s ystem which generated this result transmitted ref erence range: <25 ng/m L. The reference range was not used to int erpret this result as normal/abnormal . URN METHADONE (test code NEGATIVE See_Comment [A utomated message] = METHAURN) The system Follic[employer] generated this result transmitted ref erence range: <300 ng/ mL. The reference r maru was not used to interpret this result as normal/abnor mal. Urine Source? Clean CatchURINALYSIS [id number] 15:45:00 Test Item Value Reference Range Interpretation [...] Urine Source? Clean CatchDRUGS OF ABUSE SCREEN [id number] 15:45:00 Test Item Value Reference Range Interpretation Comments URN COCAINE (test code = NEGATIVE See_Comment [A utomated message] COCAURN) The system [employer] h generated this result transmitted ref erence [...] See_Comment [A utomated message] OPIATURN) The system Follicum generated this result transmitted ref erence range: [...] [A utomated message] = METHAURN) The system Follic[employer] generated this result transmitted ref erence range: <300 ng/ mL. The reference r maru was not used to interpret this result as normal/abnor mal. Urine Source? Clean CatchURINALYSIS [id number] 14:21:00 Test Item Value Reference Range Interpretation [...] Urine Source? Clean CatchDRUGS OF ABUSE SCREEN [id number] 14:21:00 Test Item Value Reference Range Interpretation Comments URN COCAINE (test code = See_Comment [A utomated message] COCAURN) The system Follic[employer] generated this result transmitted ref erence range: [...] See_Comment [Automated message] = AMPHETURN) The system Follic[employer] generated this result transmitted ref erence range: <1000 ng /mL. The reference r maru was not used to interpret this result as normal/abnor mal. URN BARBITURATE (test code See_Comment [Automated message] = BARBITURN) The system Follic[employer] generated this result transmitted ref erence range: [...] See_Comment [A utomated message] OPIATURN) The system Follic[employer] generated this result transmitted ref erence range: [...] = See_Comment [Automated message] METHAURN) The system Fol[employer] generated this result transmitted ref erence range: <300 ng/ mL. The reference range was not used to int erpret this result as normal/abnormal . Urine Source? Clean CatchURINALYSIS [id number] 14:18:00 Test Item Value Reference Range Interpretation [...] Urine Source? Clean CatchDRUGS OF ABUSE SCREEN [id number] 14:18:00 Test Item Value Reference Range Interpretation Comments URN COCAINE (test code = See_Comment [A utomated message] COCAURN) The system Follic[employer] generated this result transmitted ref erence range: [...] See_Comment [Automated message] = AMPHETURN) The system Follic[employer] generated this result transmitted ref erence range: <1000 ng /mL. The reference r maru was not used to interpret this result as normal/abnor mal. URN BARBITURATE (test code See_Comment [Automated message] = BARBITURN) The system Follicum generated this result transmitted ref erence range: [...] See_Comment [A utomated message] OPIATURN) The system Follic[employer] generated this result transmitted ref erence range: [...] = See_Comment [Automated message] METHAURN) The system Follic[employer] generated this result transmitted ref erence range: <300 ng/ mL. The reference range was not used to int erpret this result as normal/abnormal . Urine Source? Clean CatchBASIC METABOLIC [id number] 12:13:00 Test Item Value Reference Range Interpretation [...] Modifi ed MDRD (test code = GFR) formula.[facility] kidney disease is defined as eith er kidney damageor GFR <60 mL/min/1.73 m2 for >3 months. [Automated mess age] The system Follicum generated this result transmitted ref erence range: >=60. Th e reference range was not used to int erpret this result as normal/abnormal . CREATININE (test 1.00 mg/dL 0.7-1.3 N code = CREAT) BUN/CREATININE RATIO 17.3 10-20 N (test code = BUN/CREA) CALCIUM (test code = 9.9 mg/dL 8.5-10.1 N CA) HEPATIC FUNCTION [id number] 12:13:00 Test Item Value Reference Range Interpretation [...] range due ALKP) to change in reagent. [id number] 12:13:00 Test Item Value Reference Range Interpretation Comments ACETAMINOPHEN (test < 10 mcg/mL 10-30 L A RANGE OF 10-30 code = ACET) mcg/mL IS A THERAPEUTIC RAN GE. TOXIC CONCENTRATIONS: >150 mcg/mL AT 4 ANTONIO RS AFTER INGESTION >= 50 mcg/mL AT 12 HOURS AFTER INGESTION [id number] 12:13:00 Test Item Value Reference Range Interpretation Comments SALICYLATE (test code = RENALDO) < 3.0 mg/dL 2.8-20.0 N [id number] 12:13:00 Test Item Value Reference Range Interpretation [...] AT AN AD[facility]AL [facility] CBC W/O [id number] 11:49:00 Test Item Value Reference Range Interpretation [...] 6.7-11.0 N = MPV) COVID 19 INHOUSE [id number] 00:12:00 Test Item Value Reference Range Interpretation Comments COVID 19 INHOUSE AG (test code = NEGATIVE [id number]) URINALYSIS [id number] 20:58:00 Test Item Value Reference Range Interpretation [...] Urine Source? Clean CatchDRUGS OF ABUSE SCREEN [id number] 20:58:00 Test Item Value Reference Range Interpretation [...] See_Comment [A utomated message] OPIATURN) The system Follic[employer] generated this result transmitted ref erence range: [...] [A utomated message] = METHAURN) The system Fol[employer] generated this result transmitted ref erence range: <300 ng/ mL. The reference r maru was not used to interpret this result as normal/abnor mal. Urine Source? Clean CatchBASIC METABOLIC [id number] 20:58:00 Test Item Value Reference Range Interpretation [...] >3 months. [Automated mess age] The system Follicum generated this result transmitted ref erence range: >=60. Th e reference range was not used to int erpret this result as normal/abnormal . CREATININE (test 0.80 mg/dL 0.7-1.3 N code = CREAT) BUN/CREATININE RATIO 19.3 10-20 N (test code = BUN/CREA) CALCIUM (test code = 8.8 mg/dL 8.5-10.1 N CA) HEPATIC FUNCTION [id number] 20:58:00 Test Item Value Reference Range Interpretation [...] range due ALKP) to change in reagent. [id number] 20:58:00 Test Item Value Reference Range Interpretation Comments TROPONIN-I (test code = TROPI) < 0.006 ng/mL 0-0.045 N [id number] 20:58:00 Test Item Value Reference Range Interpretation Comments ACETAMINOPHEN (test < 10 mcg/mL 10-30 L A RANGE OF 10-30 code = ACET) mcg/mL IS A THERAPEUTIC RAN GE. TOXIC CONCENTRATIONS: >150 mcg/mL AT 4 ANTONIO RS AFTER INGESTION >= 50 mcg/mL AT 12 HOURS AFTER INGESTION [id number] 20:58:00 Test Item Value Reference Range Interpretation Comments SALICYLATE (test code = RENALDO) < 3.0 mg/dL 2.8-20.0 N [id number] 20:58:00 Test Item Value Reference Range Interpretation [...] AN ADDITIONAL CHARGE TO THE P ATIENT. - CT HEAD/BRAIN W/O [id number] 20:52:00 [facility] 1985 Sex: M Name: TEJ GUADALUPE [facility] : 1985 Age/S: 35 / M [address] [facility] Unit #: [id number] Loc: [place] [address] Phys: Shaggy Morrow MD Acct: [id number] Dis Date: Status: PRE ER PHONE #: [phone] Exam Date: 12/13/20202017 FAX #: [phone] Reason: CONFUSION EXAMS: CPT CODE: [id number] CT HEAD/BRAIN W/O CONT 99993 HISTORY: CONFUSION TECHNIQUE: Noncontrast 2.[address] of the hea d. Examination acquired within 24 hours of arrival. Automated exposure control for dose reduction. COMPARISON: None FINDINGS: No lacerations or contusions of the scalp or facial soft tissues. Calvariumand skull base are intact. No acute hemorrhage. No intracranial mass, mass effect, or midline shift.No effacement of the sulci or vaughn-white matter interface. No cortical atrophy. No signs of white matter small-vessel disease. No hydrocephalus.. No extra-axial fluid collection. Visualized paranasal sinuses are clear. Mastoid air cells and middle ear cavities are clear. Orbital contents are unremarkable. IMPRESSION: Negative CT head. Location: RR at 2051 Reported and signed by: Tano Gauthier MD CC: Shaggy Morrow MD Technologist:Camilo Staley, RT(R)(CT) CTDI: DLP: Trnscb Date/Time: 12/13/2020 (2051) [email or web address] Orig Print D/T: S: 12/13/2020 (2054) PAGE 1 Signed Report URINALYSIS [id number] 20:39:00 Test Item Value Reference Range Interpretation [...] Urine Source? Clean CatchDRUGS OF ABUSE SCREEN [id number] 20:39:00 Test Item Value Reference Range Interpretation Comments URN COCAINE (test code = See_Comment [A utomated message] COCAURN) The system Follicum generated this result transmitted ref erence range: [...] See_Comment [Automated message] = AMPHETURN) The system Follicum generated this result transmitted ref erence range: <1000 ng /mL. The reference r maru was not used to interpret this result as normal/abnor mal. URN BARBITURATE (test code See_Comment [Automated message] = BARBITURN) The system Follic[employer] generated this result transmitted ref erence range: [...] See_Comment [A utomated message] OPIATURN) The system Follic[employer] generated this result transmitted ref erence range: [...] = See_Comment [Automated message] METHAURN) The system Fol[employer] generated this result transmitted ref erence range: <300 ng/ mL. The reference range was not used to int erpret this result as normal/abnormal . Urine Source? Clean CatchURINALYSIS [id number] 20:29:00 Test Item Value Reference Range Interpretation [...] Urine Source? Clean CatchDRUGS OF ABUSE SCREEN [id number] 20:29:00 Test Item Value Reference Range Interpretation Comments URN COCAINE (test code = See_Comment [A utomated message] COCAURN) The system Follicum generated this result transmitted ref erence range: [...] See_Comment [Automated message] = AMPHETURN) The system Follicum generated this result transmitted ref erence range: <1000 ng /mL. The reference r maru was not used to interpret this result as normal/abnor mal. URN BARBITURATE (test code See_Comment [Automated message] = BARBITURN) The system Follicum generated this result transmitted ref erence range: [...] See_Comment [A utomated message] OPIATURN) The system Follicum generated this result transmitted ref erence range: [...] = See_Comment [Automated message] METHAURN) The system Follicum generated this result transmitted ref erence range: <300 ng/ mL. The reference range was not used to int erpret this result as normal/abnormal . Urine Source? Clean [facility]atch[facility] W/O [id number] 20:22:00 Test Item Value Reference Range Interpretation [...]
[2022-05-08 16:43] LABS: Absolute Lymphocytes (CBC) 1.5 K/uL (0.7-4.9); Hematocrit 34.3 % (39.6-49.0); Lymphocytes % 14.7 % (15.3-44.8); MCV 86.7 fL (80-100); MPV 7.9 fL (7.6-11.3); RBC Red Blood Cell Count 3.96 M/uL (4.33-5.43)
[2022-05-08 16:56] LABS: Potassium 3.3 mmol/L (3.5-5.1)
[2022-05-08 17:11] LABS: Urine Blood Negative (Negative); Urine Glucose Negative (Negative); Urine Protein Negative (Negative); Urine Specific Gravity 1.025 (1.005-1.030)
[2022-05-08 18:03] LABS: Barbiturates NEGATIVE (NEGATIVE); Benzodiazepines NEGATIVE (NEGATIVE); Cocaine NEGATIVE (NEGATIVE); METHAMPHETAM POSITIVE (NEGATIVE); Methadone NEGATIVE (NEGATIVE); Opiates POSITIVE (NEGATIVE); Phencyclidine NEGATIVE (NEGATIVE); THC Cannibis NEGATIVE (NEGATIVE)
--- NOTE | 2022-05-08 18:06 | ER ---
Nurse's Notes [facility] Name: Anthony Au Age: 37 yrs Sex: Male : 1985 Arrival Date: 05/08/2022 Time: 15:59 Bed 18 Private MD: Diagnosis: Abrasion of lip and oral cavity Presentation: 05/08 15:59 Chief complaint: Patient states: Pain, swelling, sores to lips, tongue, mouth area ll1 since last night. Believes he drank a mountain dew yesterday that was spiked with a chemical that made his mouth like this. History of psych problems. Coronavirus screen: Vaccine status: Patient reports receiving the 2nd dose of the covid vaccine. Client denies travel out of the [place] in the last 14 days. At this time, the client does not indicate any symptoms associated with coronavirus-19. Ebola Screen: Patient denies travel to an Ebola-affected area in the 21 days before illness onset. Initial Sepsis Screen: Does the patient meet any 2 criteria? No. Patient's initial sepsis screen is negative. Does the patient have a suspected source of infection? Yes: Skin breakdown/wound. Risk Assessment: Do you want to hurt yourself or someone else? Patient reports no desire to harm self or others. Onset of symptoms was May 07, 2022. 15:59 Method Of Arrival: EMS ll1 15:59 Acuity: MARKY 3 ll1 Triage Assessment: 16:01 General: Appears uncomfortable, Behavior is cooperative, appropriate for age, anxious. ll1 Pain: Complains of pain in mouth Pain currently is 10 out of 10 on a pain scale. Quality of pain is described as burning, aching, Pain began 1 day ago. Derm: Reports pain sores to lips/mouth/tongue. Historical: - Allergies: 16:01 No Known Allergies; ll1 - PMHx: 16:01 Anxiety; Asthma; Bipolar disorder; Depression; detox seizures; scalp laceration repair.;ll1 - PSHx: 16:01 I\T\D; ll1 - Immunization history:: Client reports receiving the 2nd dose of the Covid vaccine. - Social history:: Smoking status: Patient reports the use of cigarette tobacco products, smokes one-half pack cigarettes per day, Reported history of juuling and/or vaping. Screenin:02 Abuse screen: Denies threats or abuse. Nutritional screening: No deficits noted. ll1 Tuberculosis screening: No symptoms or risk factors identified. Fall Risk Total Mclaughlin Fall Scale indicates No Risk (0-24 pts). Assessment: 16:18 Reassessment: No changes from previously documented assessment. Patient and/or family iw updated on plan of care and expected duration. Pain level reassessed. Patient is alert, oriented x 3, equal unlabored respirations, skin warm/dry/pink. 17:15 Reassessment: No changes from previously documented assessment. Patient and/or family ll1 updated on plan of care and expected duration. Pain level reassessed. Patient is alert, oriented x 3, equal unlabored respirations, skin warm/dry/pink. 18:15 Reassessment: No changes from previously documented assessment. Patient and/or family ll1 updated on plan of care and expected duration. Pain level reassessed. Patient is alert, oriented x 3, equal unlabored respirations, skin warm/dry/pink. Vital Signs: 15:59 BP 145 / 75; Pulse 89; Resp 18; Temp 98.3; Pulse Ox 97% on R/A; Weight 86.18 kg; Height ll1 5 ft. 8 in. (172.72 cm); Pain 10/10; 17:29 BP 121 / 85; Pulse 92; Resp 18; Pulse Ox 100% on R/A; ll1 15:59 Body Mass Index 28.89 (86.18 kg, 172.72 cm) ll1 ED Course: 15:59 Patient arrived in ED. ll1 16:01 Triage completed. ll1 16:02 Arm band placed on Patient placed in an exam room, on a stretcher. ll1 16:02 Patient has correct armband on for positive identification. Bed in low position. Call ll1 light in reach. Side rails up X2. Pulse ox on. NIBP on. 16:04 Mustapha Rhoades is PHCP. jl9 16:04 River Kang MD is Attending Physician. jl9 16:07 Hong Donahue, VINI is Primary Nurse. ll1 16:18 CBC with Diff Sent. iw 16:18 BMP Sent. iw 16:18 Initial lab(s) drawn, by me, sent to lab. iw 18:23 No provider procedures requiring assistance completed. Patient did not have IV access ll1 during this emergency room visit. Administered Medications: 16:23 Drug: Bacitracin Ointment (500 unit/g) 1 application Route: Topical; Site: affected ll1 area; 18:16 Follow up: Response: No adverse reaction ll1 18:15 Not Given (left before givingg): Potassium Effervescent Tablet 50 mEq PO once; dissolve ll1 in 4 ounces of water or juice 18:16 Not Given (patient left before gettingg): Tylenol 1000 mg PO once ll1 Medication: 16:02 VIS not applicable for this client. ll1 Outcome: 18:06 Discharge ordered by MD. rhodes 18:23 Patient left the ED. ll1 18:23 Discharged to home ambulatory. ll1 18:23 Condition: stable 18:23 Discharge instructions given to patient, Instructed on discharge instructions, follow up and referral plans. Demonstrated understanding of instructions, follow-up care. Signatures: Gabi Paulson RN VINI iw Hong Donahue RN RN ll1 Mustapha Rhoades Corrections: (The following items were deleted from the chart) 16:03 15:59 Chief complaint: Patient states: Pain, swelling, sores to lips, tongue, mouth ll1 area since last night. Believes he drank a mountain dew yesterday that was spiked with a chemical that made his mouth like this. ll1
--- NOTE | 2022-05-08 18:07 | EDPHYS ---
Physician Documentation [facility] [place] Name: Anthony Au Age: 37 yrs Sex: Male : 1985 Arrival Date: 05/08/2022 Time: 15:59 Bed 18 Private MD: KAYLIE Physician River Kang HPI: 05/08 17:51 This 37 yrs old Male presents to ER via EMS with complaints of Mouth Problem. jl9 Patient has a psych history and thinks he drank a spiked mountain dew, despite him opening it. . 17:51 The patient presents with Chapped lips. . Onset: The symptoms/episode began/occurred at [facility] an unknown time. Associated signs and symptoms: Pertinent negatives: chills, dysphagia, fever, inability to eat, nausea, swelling. Historical: - Allergies: 16:01 No Known Allergies; ll1 - PMHx: 16:01 Anxiety; Asthma; Bipolar disorder; Depression; detox seizures; scalp laceration repair.;ll1 - PSHx: 16:01 I\T\D; ll1 - Immunization history:: Client reports receiving the 2nd dose of the Covid vaccine. - Social history:: Smoking status: Patient reports the use of cigarette tobacco products, smokes one-half pack cigarettes per day, Reported history of juuling and/or vaping. ROS: 17:52 Constitutional: Negative for fever, chills, and weight loss. jl9 17:52 Eyes: Negative for injury, pain, redness, and discharge, ENT: Negative for injury, pain, and discharge, Neck: Negative for injury, pain, and swelling, Cardiovascular: Negative for chest pain, palpitations, and edema, Respiratory: Negative for shortness of breath, cough, wheezing, and pleuritic chest pain, Abdomen/GI: Negative for abdominal pain, nausea, vomiting, diarrhea, and constipation, Back: Negative for injury and pain, : Negative for injury, bleeding, discharge, and swelling, MS/Extremity: Negative for injury and deformity. 17:52 Neuro: Negative for headache, weakness, numbness, tingling, and seizure, Psych: Negative for depression, anxiety, suicide ideation, homicidal ideation, and hallucinations, Allergy/Immunology: Negative for hives, rash, and allergies, Endocrine: Negative for neck swelling, polydipsia, polyuria, polyphagia, and marked weight changes, Hematologic/Lymphatic: Negative for swollen nodes, abnormal bleeding, and unusual bruising. 17:52 Skin: Positive for Chapped lips. . Exam: 17:53 Constitutional: This is a well developed, well nourished patient who is awake, alert, jl9 and in no acute distress. 17:53 Eyes: Pupils equal round and reactive to light, extra-ocular motions intact. Lids and lashes normal. Conjunctiva and sclera are non-icteric and not injected. Cornea within normal limits. Periorbital areas with no swelling, redness, or edema. ENT: Mucous membranes moist. Neck: Trachea midline, no thyromegaly or masses palpated, and no cervical lymphadenopathy. Supple, full range of motion without nuchal rigidity, or vertebral point tenderness. No Meningismus. Chest/axilla: Normal chest wall appearance and motion. Nontender with no deformity. No lesions are appreciated. Cardiovascular: Regular rate and rhythm with a normal S1 and S2. No gallops, murmurs, or rubs. Normal PMI, no JVD. No pulse deficits. Respiratory: Lungs have equal breath sounds bilaterally, clear to auscultation and percussion. No rales, rhonchi or wheezes noted. No increased work of breathing, no retractions or nasal flaring. Abdomen/GI: Soft, non-tender, with normal bowel sounds. No distension or tympany. No guarding or rebound. No evidence of tenderness throughout. Back: No spinal tenderness. No costovertebral tenderness. Full range of motion. Skin: Warm, dry with normal turgor. Normal color with no rashes, no lesions, and no evidence of cellulitis. MS/ Extremity: Pulses equal, no cyanosis. Neurovascular intact. Full, normal range of motion. Neuro: Awake and alert, GCS 15, oriented to person, place, time, and situation. Cranial nerves II-XII grossly intact. Motor strength 5/5 in all extremities. Sensory grossly intact. Cerebellar exam normal. Normal gait. 17:53 Head/face: Noted is Chapped lips. . 17:53 Psych: Behavior/mood is anxious, Affect is animated, Oriented to person, place, time, only. Patient has no thoughts/intents to harm self or others. Judgement / Insight is normal. Delusions/hallucinations Vital Signs: 15:59 BP 145 / 75; Pulse 89; Resp 18; Temp 98.3; Pulse Ox 97% on R/A; Weight 86.18 kg; Height ll1 5 ft. 8 in. (172.72 cm); Pain 10/10; 17:29 BP 121 / 85; Pulse 92; Resp 18; Pulse Ox 100% on R/A; ll1 15:59 Body Mass Index 28.89 (86.18 kg, 172.72 cm) ll1 MDM: 16:04 Patient medically screened. jl9 17:54 Data reviewed: vital signs, nurses notes. jl9 18:05 Counseling: I had a detailed discussion with the patient and/or guardian regarding: the jl9 historical points, exam findings, and any diagnostic results supporting the discharge/admit diagnosis, lab results, to return to the emergency department if symptoms worsen or persist or if there are any questions or concerns that arise at home. 05/08 16:05 Order name: BMP; Complete Time: 17:29 [facility] 05/08 16:05 Order name: CBC with Diff; Complete Time: 17:29 [facility] 05/08 16:05 Order name: UDS; Complete Time: 18:05 9 05/08 17:12 Order name: Urine Dipstick-Ancillary; Complete Time: 17:29 EDMS Administered Medications: 16:23 Drug: Bacitracin Ointment (500 unit/g) 1 application Route: Topical; Site: affected ll1 area; 18:16 Follow up: Response: No adverse reaction ll1 18:15 Not Given (left before givingg): Potassium Effervescent Tablet 50 mEq PO once; dissolve ll1 in 4 ounces of water or juice 18:16 Not Given (patient left before gettingg): Tylenol 1000 mg PO once ll1 Disposition Summary: 05/08/22 18:06 Discharge Ordered Location: Home jl9 Condition: Stable jl9 Diagnosis - Abrasion of lip and oral cavity jl9 Followup: jl9 - With: Private Physician - When: 1 - 2 days - Reason: Recheck today's complaints, Continuance of care, Re-evaluation by your physician Discharge Instructions: - Discharge Summary Sheet jl9 - Abrasion, [id number] jl9 - Illegal Drug Use Information, Adult jl9 Forms: - Medication Reconciliation Form jl9 - Thank You Letter jl9 - Antibiotic Education jl9 - Prescription Opioid Use jl9 Signatures: Dispatcher [facility] Hong Hand, RN RN ll1 Mustapha Rhoades jl9
[2022-05-08] MEDS ORDERED: ACETAMINOPHEN 500 MG TAB ONE (18:19)
[2022-05-08] MEDS ORDERED: POTASSIUM 25 MEQ EFFERV TAB ONE (18:19)
[2022-05-08 19:48] VITALS: TEMP 98.3
[2022-05-08 19:50] VITALS: BP 121/85; O2SAT 100
== END 2022-05-08 18:23 | disposition home or self-care (01) ==
LOC: ER 15:57
DX: S00.511A Abrasion of lip, initial encounter (principal); S00.512A Abrasion of oral cavity, initial encounter; F31.9 Bipolar disorder, unspecified; F17.210 Nicotine dependence, cigarettes, uncomplicated
CPT/HCPCS: 36415; 80048; 80307; 81003; 85025; 99284

== ENCOUNTER 2022-06-06 14:55 | Emergency (ER) | payer SELFPAY ==
--- OUTSIDE RECORDS SUMMARY | 2022-06-06 15:08 | XMS REPORT | Continuity of Care Document ---
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 contaminated with esperanza that is considered normal or otherwise not clinically relevant. As appropriate, normal results will indicate the presence or absence of such esperanza. Otherwise, the reference value is considered "No growth". [facility] [id number] 10:37:20 Test Item Value Reference Range Interpretation Comments Bacteria Spec ACID-FAST AA 1+ Acid fast Cult (test code = BACILLUS bacilliREF ER TO 6463-4) [id number] Reference value: Non-sterile sites may be contaminated with esperanza that is considered normal or otherwise not clinically relevant. As appropriate, normal results will indicate the presence or absence ofsuch esperanza. Otherwise, the reference value is considered "No growth".Bacteria Spec [id number] 10:36:38 Test Item Value Reference Range Interpretation Comments Bacteria Spec ACID-FAST AA Acid fast Cult (test code = BACILLUS bacilliREF ER TO 6463-4) [id number] Reference value: Non-sterile sites may be contaminated with esperanza that is considered normal or otherwise not clinically relevant. As appropriate, normal results will indicate the presence or absence ofsuch esperanza. Otherwise, the reference value is considered "No growth".Bacteria Spec [id number] 10:35:39 Test Item Value Reference Range Interpretation Comments Bacteria Spec ACID-FAST AA Acid fast Cult (test code = BACILLUS bacilliREF ER TO 6463-4) [id number] Reference value: Non-sterile sites may be contaminated with esperanza that is considered normal or otherwise not clinically relevant. As appropriate, normal results will indicate the presence or absence ofsuch esperanza. 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) Lab Interpretation (test Abnormal code = 04513-8) [place] [facility] [id number] 14:19:13 Test Item Value Reference Range Interpretation Comments Bacteria Spec Cult ACID-FAST BACILLUS AA 4+ Acid fast (test code = bacilli 6463-4) HIV 1+2 Ab+HIV1 p24 Ag SerPl Ql [id number] 19:49:40 Test Item Value Reference Range Interpretation Comments HIV 1+2 Ab+HIV1 p24 Ag SerPl Ql [place] NEGATIVE Negative (test code = 87399-4) Coronavirus, CoVID-19, [id number] 16:40:22 Test Item Value Reference Interpretation Comments Range COVID-19 Not Detected Not Detected INTERPRETATION: (SARS-COV-2) (test No detect able code = 65356-8) levels of SARS-CoV-2 Coronavirus (COVID-19) were present in this patient's sampl e by this test. A not detected result does not exclude the possibility of active infectio n with this virus due to other factors that ma y affect the results such as a poorly collected sample, viral titers below th e limit of detection of th e assay, and the infrequent possibility of inhibitors in the sample. Thi s result should b e interpreted in conjunction wit h clinical, radiographic, and other laboratory findings and should not be used as the guy e indicator of active infectio n with SARS-CoV-2 Coronavirus (COVID-19). TRACY (test code = COMMENT: This miles TRACY) real-time reverse transcriptase polymerase chain reaction (RT-PCR) test rapidly detects SARS-CoV-2 (COVID-19) virus from nasopharyngeal and nasal swab specimens. In accordance with the FDA's guidance document "Policy for Diagnostic Tests for Coronavirus Disease-2019 during the Public Health Emergency", this test was developed, and its performance characteristics were verified by the [facility] molecular diagnostics laboratory and is authorized for clinical diagnostic use. This laboratory is certified under the Clinical Laboratory Improvement Amendments (CLIA) as qualified to perform high complexity clinical laboratory testing. Lab Interpretation Normal (test code = 27555-4) [facility]-CoV-2 RNA Resp Ql [id number] 16:40:22 Test Item Value Reference Range Interpretation Comments Hospitalized? (test No code = 69663-0) ICU? (test code = No 26859-1) Symptomatic as defined No by CDC? (test code = 56878-9) Employed in Unknown Healthcare? (test code = 00076-7) Resident in a Unknown congregate care setting (including nursing homes, residential care for people with intellectual and developmental disabilities, psychiatric treatment facilities, group homes, board and care homes, homeless jail, foster care or other): (test code = 63535-6) SARS-CoV-2 RNA Resp Ql NOT DETECTED Not Detected INTER PRETATION: No YOKASTA+probe (test code = detec table levels 20510-6) of SARS-CoV-2 Coronavirus (COVID-19) were present in this patient's sampl e by this test. A no t detected result does not exclud e the possibility of active infectio n with this virus due to other factor s that may affect the results such as a poorly collecte d sample, viral titers below th e limit of detect ion of the assay, a nd the infrequent possibility of inhibitors in t he sample. This re sult should be interpreted in conjunction wit h clinical, radiographic, a nd other laborator y findings and sh ould not be used as the sole indicator of active infectio n with SARS-CoV-2 Coronavirus (COVID-19). COMMENT: This miles real-time reverse transcriptase polymerase chain reaction (RT-PCR) test rapidly detects SARS-CoV-2 (COVID-19) virus from nasopharyngeal and nasal swab specimens. In accordance with the FDA's guidance document "Policy for Diagnostic Tests for Coronavirus Disease-2019 during the Public Health Emergency", this test was developed, and its performance characteristics were verified by the [facility] molecular diagnostics laboratory and is authorized for clinical diagnostic use. This laboratory is certified under the Clinical Laboratory Improvement Amendments (CLIA) as qualified to perform high complexity clinical laboratory testing.HIV 1+2 Ab+HIV1 p24 Ag SerPl Ql [id number] 17:45:02 Test Item Value Reference Range Interpretation Comments HIV 1+2 Ab+HIV1 p24 Ag SerPl Ql [place] NEGATIVE Negative (test code = 91844-7) [id number] 23:16:25 Test Item Value Reference Range Interpretation Comments SALICYLATE (test code <10 mg/L = 1012874401) TRACY (test code = TRACY) Therapeutic Range: ? Analgesic and Antipyretic Use ? 20-100 mg/L ? ? Anti-Inflammatory Use ? 100-250 mg/L Toxic Range: ? Greater than 300 mg/L [facility] 23[facility]16[facility]15 Test Item Value Reference Range Interpretation Comments ALCOHOL (test code = <10 mg/dL 4534789822) TRACY (test code = TRACY) <10 Pidbpoii35-046 Toxic>100 Depression of APPLICATION INTEGRATION SPECIALIST>400 Fatalities Reported [facility]21[facility]01 23:16:10 Test Item Value Reference Range Interpretation Comments ACETAMINOP (test code = <10.0 10.0-30.0 L 9941617954) TRACY (test code = TRACY) Toxic: Greater than 200 ug/mL @ 4 hour post ingestion or greater than 50 ug/mL @ 12 hour post ingestion Lab Interpretation (test Abnormal code = 33406-0) [facility] (ALB, T.PRO, BILI T, BU/BC, ALT, AST, ALK PHOS)2021-01-30 23:14:14 Test Item Value Reference Range Interpretation Comments TOTAL BILI (test code = 3428302996) 0.8 mg/dL 0.1-1.1 BILI UNCON (test code = 4075309071) 0.6 mg/dL 0.1-1.1 BILI CONJ (test code = 3648746425) 0.0 mg/dL 0.0-0.3 T PROTEIN (test code = 3473361150) 7.5 g/dL 6.3-8.2 ALBUMIN (test code = 3661381011) 4.8 g/dL 3.5-5.0 ALK PHOS (test code = 1188306814) 63 U/L 34-122 ALTv (test code = 1742-6) 33 U/L 5-50 AST(SGOT) (test code = 0636290344) 36 U/L 13-40 Lab Interpretation (test code = Normal 21401-3) [facility] Metabolic Panel (NA, K, CL, CO2, GLUCOSE, BUN, CREATININE, CA)2021-01-30 23:13:54 Test Item Value Reference Range Interpretation Comments NA (test code = 142 mmol/L 135-145 9097092051) K (test code = 4.3 mmol/L 3.5-5.0 8530323209) CL (test code = 105 mmol/L 98-108 2068957255) CO2 TOTAL (test code 25 mmol/L 23-31 = 8744714610) AGAP (test code = 2-16 2442863201) BUN (test code = 17 mg/dL 7-23 5199770806) GLUCOSE (test code = 86 mg/dL 70-110 0640392558) CREATININE (test code 0.85 mg/dL 0.60-1.25 = 5223012828) CALCIUM (test code = 9.9 mg/dL 8.6-10.6 6564039996) eGFR (test code = mL/min/1.73m2 5900140707) TRACY (test code = TRACY) Association of [...] or urine or abnormalities in imaging tests). [facility] (IMMUNOASSAY) - COMPREHENSIVE DRUG [id number] 23:05:57 Test Item Value Reference Range Interpretation Comments AMPHET (test code = Presumptive Positive Negative A 9635559775) CHACORTA U (test code = Negative Negative 4340046473) BENZO U (test code = Presumptive Positive Negative A 5807494615) Cocaine Metabolite (test Negative Negative code = 9145336883) METHADONE (test code = Negative Negative 6142426094) OPIATES (test code = Presumptive Positive Negative A 5764035548) PCP (test code = Negative Negative 3325301883) THC (test code = Presumptive Positive Negative A 0457456356) TRACY (test code = TRACY) Urine Drug [...] testing). Lab Interpretation (test Abnormal code = 99118-9) [facility] (ID NOW RAPID TESTING)2021-01-30 22:34:55 Test Item Value Reference Range Interpretation Comments SARS-CoV-2 Rapid ID NOW Not Detected Not Detected (test code = 68582-7) TRACY (test code = TRACY) ID NOW COVID-19 Assay is an isothermal nucleic acid amplification test intended for the qualitative detection of nucleic acid from SARS-CoV-2 viral RNA in nasopharyngeal (PARTS SALES REPRESENTATIVE) specimens. It is used under Emergency Use [...] indicated. Lab Interpretation Normal (test code = 18729-5) [facility]roe[facility]inalysis2021-05-01 22:30:19 Test Item Value Reference Range Interpretation Comments APPEARANCE (test code = Clear Clear 5921648002) COLOR (test code = Yellow Yellow 1537236120) PH (test code = 4.8-8.0 5874208057) SP GRAVITY (test code = 1.003-1.030 2447840085) GLU U QUAL (test code = Normal Normal 4962009028) BLOOD (test code = Negative Negative 5995551847) KETONES (test code = Negative Negative 9725521157) PROTEIN (test code = Negative Negative 2887-8) UROBILIN (test code = 2.0 mg/dL Normal A 6934673221) BILIRUBIN (test code = Negative Negative 7636648685) NITRITE (test code = Negative Negative 3472976484) LEUK DIONE (test code = Negative Negative 1105264648) RBC/HPF (test code = See_Comment [Autom ated message] 7455014420) The system Snapdeal generated this result transmit delroy reference range : 0 - 3 HPF. The refe rence range was not u sed to interpret th is result as normal/abnormal . WBC/HPF (test code = <1 See_Comment [Autom ated message] 7611867366) The system Snapdeal generated this result transmit delroy reference range : 0 - 5 HPF. The refe rence range was not u sed to interpret th is result as normal/abnormal . BACTERIA (test code = Negative Negative 5500079106) SQ EPITH (test code = <1 HPF 3480723066) Lab Interpretation (test Abnormal code = 40613-5) [facility] with [id number] 22:19:35 Test Item Value Reference Range Interpretation [...] RDW-SD (test code = 42.8 fL 38.5-51.6 57204-1) RDW-CV (test code = 13.3 % 12.1-15.4 788-0) PLT (test code = See_Comment H [Automated 777-3) message] The sy stem which generated this result transmitted reference range : 150 - 328 10*3/ ?L. The reference r maru was not used to interpret this result as normal/abnormal . MPV (test code = 9.9 fL 9.8-13.0 12306-3) NRBC/100 WBC (test See_Comment [Automat ed code = 5932103336) message] The system which generated this result transmitted reference range : 0.0 - 10.0 /100 WBCs. The refer ence range was not u sed to interpret th is result as normal/abnormal . NRBC x10^3 (test code <0.01 See_Comment [Auto mated = 8992928009) message] The s [employer] which generated this result transmitted reference range : 10*3/?L. The reference range was not used to interpret this result as normal/abnormal . GRAN MAT (NEUT) % 79.2 % (test code = 770-8) IMM GRAN % (test code 0.50 % = 3343357302) LYMPH % (test code = 14.8 % 736-9) MONO % (test code = 4.9 % 5905-5) EOS % (test code = 0.2 % 713-8) BASO % (test code = 0.4 % 706-2) GRAN MAT x10^3(ANC) 9.77 10*3/uL 1.99-6.95 H (test code = 3337102126) IMM GRAN x10^3 (test 0.06 10*3/uL 0.00-0.06 code = 9129917393) LYMPH x10^3 (test code 1.82 10*3/uL 1.09-3.23 = 731-0) MONO x10^3 (test code 0.60 10*3/uL 0.36-1.02 = 742-7) EOS x10^3 (test code = 0.03 10*3/uL 0.06-0.53 L 711-2) BASO x10^3 (test code 0.05 10*3/uL 0.01-0.09 = 704-7) Lab Interpretation Abnormal (test code = 27012-9) [facility] [id number] 20:48:00 Test Item Value Reference Range Interpretation Comments COVID 19 INHOUSE AG (test code = NEGATIVE [id number]) URINALYSIS [id number] 16:11:00 Test Item Value Reference Range Interpretation [...] Urine Source? Clean CatchDRUGS OF ABUSE SCREEN [id number] 16:11:00 Test Item Value Reference Range Interpretation [...] See_Comment [A utomated message] OPIATURN) The system Snapdeal generated this result transmitted ref erence range: [...] [A utomated message] = METHAURN) The system Snapdeal generated this result transmitted ref erence range: <300 ng/ mL. The reference r maru was not used to interpret this result as normal/abnor mal. Urine Source? Clean CatchURINALYSIS [id number] 15:45:00 Test Item Value Reference Range Interpretation [...] Urine Source? Clean CatchDRUGS OF ABUSE SCREEN [id number] 15:45:00 Test Item Value Reference Range Interpretation Comments URN COCAINE (test code = NEGATIVE See_Comment [A utomated message] COCAURN) The system Snapdeal generated this result transmitted ref erence range: [...] See_Comment [A utomated message] OPIATURN) The system Snapdeal generated this result transmitted ref erence range: [...] [A utomated message] = METHAURN) The system Snapdeal generated this result transmitted ref erence range: <300 ng/ mL. The reference r maru was not used to interpret this result as normal/abnor mal. Urine Source? Clean CatchURINALYSIS [id number] 14:21:00 Test Item Value Reference Range Interpretation [...] Urine Source? Clean CatchDRUGS OF ABUSE SCREEN [id number] 14:21:00 Test Item Value Reference Range Interpretation Comments URN COCAINE (test code = See_Comment [A utomated message] COCAURN) The system Snapdeal generated this result transmitted ref erence range: [...] See_Comment [Automated message] = AMPHETURN) The system Snapdeal generated this result transmitted ref erence range: <1000 ng /mL. The reference r maru was not used to interpret this result as normal/abnor mal. URN BARBITURATE (test code See_Comment [Automated message] = BARBITURN) The system Snapdeal generated this result transmitted ref erence range: [...] See_Comment [A utomated message] OPIATURN) The system Snapdeal generated this result transmitted ref erence range: [...] = See_Comment [Automated message] METHAURN) The system Snapdeal generated this result transmitted ref erence range: <300 ng/ mL. The reference range was not used to int erpret this result as normal/abnormal . Urine Source? Clean CatchURINALYSIS [id number] 14:18:00 Test Item Value Reference Range Interpretation [...] Urine Source? Clean CatchDRUGS OF ABUSE SCREEN [id number] 14:18:00 Test Item Value Reference Range Interpretation Comments URN COCAINE (test code = See_Comment [A utomated message] COCAURN) The system Snapdeal generated this result transmitted ref erence range: [...] See_Comment [Automated message] = AMPHETURN) The system Snapdeal generated this result transmitted ref erence range: <1000 ng /mL. The reference r maru was not used to interpret this result as normal/abnor mal. URN BARBITURATE (test code See_Comment [Automated message] = BARBITURN) The system Snapdeal generated this result transmitted ref erence range: [...] See_Comment [A utomated message] OPIATURN) The system Snapdeal generated this result transmitted ref erence range: <300 ng/ mL. The reference range was not used to int erpret this result as normal/abnormal . URN PHENCYCLIDINE (PCP) See_Comment [Au tomated message] (test code = PHENCURN) The s [employer] which generated this result transmitted ref erence range: <25 ng/m L. The reference range was not used to int erpret this result as normal/abnormal . URN METHADONE (test code = See_Comment [Automated message] METHAURN) The system Snapdeal generated this result transmitted ref erence range: <300 ng/ mL. The reference range was not used to int erpret this result as normal/abnormal . Urine Source? Clean CatchBASIC METABOLIC [id number] 12:13:00 Test Item Value Reference Range Interpretation [...] Modifi ed MDRD (test code = GFR) formula.[facility] kidney disease is defined as eith er kidney damageor GFR <60 mL/min/1.73 m2 for >3 months. [Automated mess age] The system Snapdeal generated this result transmitted ref erence range: >=60. Th e reference range was not used to int erpret this result as normal/abnormal . CREATININE (test 1.00 mg/dL 0.7-1.3 N code = CREAT) BUN/CREATININE RATIO 17.3 10-20 N (test code = BUN/CREA) CALCIUM (test code = 9.9 mg/dL 8.5-10.1 N CA) HEPATIC FUNCTION [id number] 12:13:00 Test Item Value Reference Range Interpretation [...] range due ALKP) to change in reagent. [id number] 12:13:00 Test Item Value Reference Range Interpretation Comments ACETAMINOPHEN (test < 10 mcg/mL 10-30 L A RANGE OF 10-30 code = ACET) mcg/mL IS A THERAPEUTIC RAN GE. TOXIC CONCENTRATIONS: >150 mcg/mL AT 4 ANTONIO RS AFTER INGESTION >= 50 mcg/mL AT 12 HOURS AFTER INGESTION [id number] 12:13:00 Test Item Value Reference Range Interpretation Comments SALICYLATE (test code = RENALDO) < 3.0 mg/dL 2.8-20.0 N [id number] 12:13:00 Test Item Value Reference Range Interpretation [...] CHARGE TO THE P ATIENT. CBC W/O [id number] 11:49:00 Test Item Value Reference Range Interpretation [...] 6.7-11.0 N = MPV) COVID 19 INHOUSE [id number] 00:12:00 Test Item Value Reference Range Interpretation Comments COVID 19 INHOUSE AG (test code = NEGATIVE [id number]) URINALYSIS [id number] 20:58:00 Test Item Value Reference Range Interpretation [...] Urine Source? Clean CatchDRUGS OF ABUSE SCREEN [id number] 20:58:00 Test Item Value Reference Range Interpretation Comments URN COCAINE (test code = NEGATIVE See_Comment [A utomated message] COCAURN) The system Snapdeal generated this result transmitted ref erence range: [...] See_Comment [A utomated message] OPIATURN) The system Snapdeal generated this result transmitted ref erence range: [...] [A utomated message] = METHAURN) The system Snapdeal generated this result transmitted ref erence range: <300 ng/ mL. The reference r maru was not used to interpret this result as normal/abnor mal. Urine Source? Clean CatchBASIC METABOLIC [id number] 20:58:00 Test Item Value Reference Range Interpretation [...] GFR b y FILTRATION RATE using Modifi MDRD (test code = GFR) formula.[facility] kidney disease is defined as eith er kidney damageor GFR <60 mL/min/1.73 m2 for >3 months. [Automated mess age] The system Snapdeal generated this result transmitted ref erence range: >=60. Th e reference range was not used to int erpret this result as normal/abnormal . CREATININE (test 0.80 mg/dL 0.7-1.3 N code = CREAT) BUN/CREATININE RATIO 19.3 10-20 N (test code = BUN/CREA) CALCIUM (test code = 8.8 mg/dL 8.5-10.1 N CA) HEPATIC FUNCTION [id number] 20:58:00 Test Item Value Reference Range Interpretation [...] range due ALKP) to change in reagent. [id number] 20:58:00 Test Item Value Reference Range Interpretation Comments TROPONIN-I (test code = TROPI) < 0.006 ng/mL 0-0.045 N [id number] 20:58:00 Test Item Value Reference Range Interpretation Comments ACETAMINOPHEN (test < 10 mcg/mL 10-30 L A RANGE OF 10-30 code = ACET) mcg/mL IS A THERAPEUTIC RAN GE. TOXIC CONCENTRATIONS: >150 mcg/mL AT 4 ANTONIO RS AFTER INGESTION >= 50 mcg/mL AT 12 HOURS AFTER INGESTION [id number] 20:58:00 Test Item Value Reference Range Interpretation Comments SALICYLATE (test code = RENALDO) < 3.0 mg/dL 2.8-20.0 N [id number] 20:58:00 Test Item Value Reference Range Interpretation [...] AT AN AD[facility]AL CHAR[facility]/BRAIN W/O [id number] 20:52:00 [facility])Name: GUADALUPE, TEJ : 1985 Sex: M Name: TEJ GUADALUPE [facility] : 1985 Age/S: 35 / M [address] [facility]: [id number] Loc: DEISY Saenz [address] Phys: Shaggy Morrow MD Acct: [id number] Dis Date: Status: PRE ER PHONE #:[phone] Exam Date: 12/13/20202017 FAX #: [phone] Reason: CONFUSION EXAMS: CPT CODE: [id number] CT HEAD/BRAIN W/O CONT 95566 HISTORY: CONFUSION TECHNIQUE: Noncontrast 2.5 mm axial [...] No hydrocephalus.. No extra-axial fluid collection. Visualized paranasalsinuses are clear. Mastoid air cells and middle ear cavities are clear. Orbital contents are unremarkable. IMPRESSION: Negative CT head. Location: RR at 2051 Reported and signed by: Tano Gauthier MD CC: Shaggy Morrow MD Technologist:Camilo Staley, RT(R)(CT) CTDI: DLP: Trnscb Date/Time: 12/13/2020 (2051) [id number] Orig Print D/T: S: 12/13/2020 (2054) PAGE 1 Signed Report URINALYSIS [id number] 20:39:00 Test Item Value Reference Range Interpretation [...] Urine Source? Clean CatchDRUGS OF ABUSE SCREEN [id number] 20:39:00 Test Item Value Reference Range Interpretation Comments URN COCAINE (test code = See_Comment [A utomated message] COCAURN) The system Snapdeal generated this result transmitted ref erence range: [...] See_Comment [Automated message] = AMPHETURN) The system Snapdeal generated this result transmitted ref erence range: <1000 ng /mL. The reference r maru was not used to interpret this result as normal/abnor mal. URN BARBITURATE (test code See_Comment [Automated message] = BARBITURN) The system Snapdeal generated this result transmitted ref erence range: [...] See_Comment [A utomated message] OPIATURN) The system Snapdeal generated this result transmitted ref erence range: [...] = See_Comment [Automated message] METHAURN) The system Snapdeal generated this result transmitted ref erence range: <300 ng/ mL. The reference range was not used to int erpret this result as normal/abnormal . Urine Source? Clean CatchURINALYSIS [id number] 20:29:00 Test Item Value Reference Range Interpretation [...] Urine Source? Clean CatchDRUGS OF ABUSE SCREEN [id number] 20:29:00 Test Item Value Reference Range Interpretation Comments URN COCAINE (test code = See_Comment [A utomated message] COCAURN) The system Snapdeal generated this result transmitted ref erence range: [...] See_Comment [Automated message] = AMPHETURN) The system Snapdeal generated this result transmitted ref erence range: <1000 ng /mL. The reference r maru was not used to interpret this result as normal/abnor mal. URN BARBITURATE (test code See_Comment [Automated message] = BARBITURN) The system Snapdeal generated this result transmitted ref erence range: [...] See_Comment [A utomated message] OPIATURN) The system Snapdeal generated this result transmitted ref erence range: [...] = See_Comment [Automated message] METHAURN) The system Snapdeal generated this result transmitted ref erence range: <300 ng/ mL. The reference range was not used to int erpret this result as normal/abnormal . Urine Source? Clean CatchCBC W/O [id number] 20:22:00 Test Item Value Reference Range Interpretation [...] (test code 9.8 fL 6.7-11.0 N = MPV)
[2022-06-06 17:25] LABS: Urine Blood Negative (Negative); Urine Glucose Negative (Negative); Urine Protein Negative (Negative); Urine Specific Gravity 1.025 (1.005-1.030); Urine pH 5.5 (5.0-7.0)
[2022-06-06 18:01] LABS: Barbiturates NEGATIVE (NEGATIVE); Benzodiazepines NEGATIVE (NEGATIVE); Cocaine NEGATIVE (NEGATIVE); METHAMPHETAM NEGATIVE (NEGATIVE); Methadone NEGATIVE (NEGATIVE); Opiates NEGATIVE (NEGATIVE); Phencyclidine NEGATIVE (NEGATIVE); THC Cannibis NEGATIVE (NEGATIVE)
[2022-06-06 18:22] LABS: Absolute Lymphocytes (CBC) 2.8 K/uL (0.7-4.9); Hematocrit 40.2 % (39.6-49.0); Lymphocytes % 32.4 % (15.3-44.8); MPV 8.6 fL (7.6-11.3); RBC Red Blood Cell Count 4.46 M/uL (4.33-5.43)
[2022-06-06 18:24] LABS: Protime INR 0.97
[2022-06-06 18:43] LABS: ALT/SGPT 69 U/L (12-78); AST/SGOT 32 U/L (15-37); Albumin 3.6 g/dL (3.4-5.0); Alkaline Phosphatase 88 U/L (45-117); BUN Blood Urea Nitrogen 12 mg/dL (7-18); Bicarbonate 27 mmol/L (21-32); Bilirubin Direct 0.1 mg/dL (0-0.2); Bilirubin Total 0.6 mg/dL (0.2-1.0); Glomerular Filtration Rate 115 ml/min (=/>90); Glucose Level 81 mg/dL (74-106); Potassium 4.1 mmol/L (3.5-5.1); Protein, Total 7.7 g/dL (6.4-8.2); Sodium Level 140 mmol/L (136-145)
--- NOTE | 2022-06-06 21:18 | ER ---
Nurse's Notes [facility] [place] Name: Anthony Au Age: 37 yrs Sex: Male : 1985 Arrival Date: 06/06/2022 Time: 14:58 Bed 7 Private MD: Diagnosis: Other depressive episodes Presentation: 06/06 15:45 Chief complaint: Patient states: "psychiatric crisis" wants to hurt self. Has been ko1 using drugs, thought about overdose. Was in detox center in [place]. Has infection to arm. Hx of injecting meth. Coronavirus screen: At this time, the client does not indicate any symptoms associated with coronavirus-19. Ebola Screen: No symptoms or risks identified at this time. Initial Sepsis Screen: Does the patient meet any 2 criteria? No. Patient's initial sepsis screen is negative. Does the patient have a suspected source of infection? No. Patient's initial sepsis screen is negative. Onset of symptoms was June 06, 2022. 15:45 Method Of Arrival: Ambulatory ko1 15:50 Risk Assessment: Do you want to hurt yourself or someone else? Patient reports ko1 desire/thoughts of hurting themselves or someone else. Provider notified. Note PA in triage to see patient. 15:50 Acuity: MARKY 2 ko1 Triage Assessment: 15:47 General: Appears distressed, Behavior is cooperative, appropriate for age, anxious. ko1 Pain: Denies pain. Historical: - Allergies: 16:18 No Known Allergies; jl7 - Home Meds: 15:47 Adderall XR Oral [Active]; Alprazolam Oral [Active]; ceboxone [Active]; Zyprexa Oral ko1 [Active]; - PMHx: 15:47 Anxiety; Asthma; Bipolar disorder; Depression; detox seizures; scalp laceration repair.;ko1 - PSHx: 15:47 I\\T\\D; ko1 - Immunization history:: Adult Immunizations unknown. - Social history:: Smoking status: Patient reports the use of cigarette tobacco products, smokes one pack cigarettes per day. Screenin:36 Clinical [place] Withdrawal Assessment for Alcohol, revised (CIWA-Ar): mb8 Nausea/Vomitin - No nausea or vomiting Headache: 0 - Not present Paroxysmal Sweats: 0 - No sweats visible Anxiety: 4 - Moderately anxious, guarded Agitation: 0 - Normal actiivty Tremor: 0 - No tremor Auditory Disturbances: 0 - Not present Visual Disturbances: 0 - Not present Tactile Disturbances: 0 - None Orientation and Clouding of Sensorium: 0 - Oriented and can do serial additions Total Score: < 10 Very mild withdrawal. Abuse screen: Denies threats or abuse. Denies injuries from another. Nutritional screening: No deficits noted. Tuberculosis screening: No symptoms or risk factors identified. Fall Risk None identified. Assessment: 17:32 General: Appears in no apparent distress. comfortable, Behavior is cooperative, mb8 appropriate for age, anxious. 17:33 Derm: Multiple wounds to right arm in different stages of healing, no bleeding noted. mb8 Wounds were bandage by another healthcare facility. No purulent drainage. One wound in left AC, no drainage noted. All wounds cleaned. Left AC wound packed per NAVEEN Singh. Antibiotic ointment applied and dressed with dry strerile gauze. 19:00 Reassessment: Patient sitting in bed, cooperative. vc1 20:30 Reassessment: Pt provided with a sandwich and pudding, complains one of his IVs is vc1 painful, site is red. IV removed intact, pressure dressing applied. 23:15 Reassessment: Pt states he was pressured by his kristinea mauro to come to the hospital. Pt vc1 states he is not suicidal. Vital Signs: 15:47 BP 136 / 97; Pulse 73; Resp 16; Temp 97.1; Pulse Ox 99% ; Weight 83.91 kg; Height 5 ft. ko1 8 in. (172.72 cm); Pain 8/10; 23:39 BP 142 / 66; Pulse 79; Resp 17 S; Pulse Ox 99% on R/A; as6 15:47 Body Mass Index 28.13 (83.91 kg, 172.72 cm) ko1 ED Course: 14:58 Patient arrived in ED. mr 15:22 River Singh PA is PHCP. cp 15:22 Kartik Palmer MD is Attending Physician. cp 15:47 Arm band placed on left wrist. Patient notified of wait time. ko1 15:51 Triage completed. ko1 17:36 Patient has correct armband on for positive identification. Bed in low position. mb8 Valuables inventory done. Sitter at bedside. Patient is placed in psych hold. 17:37 No provider procedures requiring assistance completed. Wound care: located on right arm mb8 and left arm See derm assessment for treatment. 17:38 Safety Checks: Personal items have been removed. The door is open or patient has been mb8 placed in a hallway bed/chair. There are no family/friend visitors at this time Sitter present at this time. 17:45 Inserted saline lock: 24 gauge in right hand, using aseptic technique. dh3 17:55 Missed attempt(s): 20 gauge in left forearm. Bleeding controlled, band aid applied, dh3 catheter tip intact. 18:05 Initial lab(s) drawn, by ks, sent to lab. Inserted saline lock: 24 gauge in left wrist, dh3 using aseptic technique. Blood collected. 18:12 Ludin Alvarenga, RN is Primary Nurse. mb8 18:20 EKG done, by ED staff, reviewed by River HODGE. dh3 19:22 Primary Nurse role handed off by Ludin Alvarenga, VINI mw2 19:33 Contacted [facility] Crisis Line spoke to Lindy to have a screener evaluate the 2 patient. 19:47 Tom Valenzuela RN is Primary Nurse. as6 20:10 Deloris from [facility] ETA 1 hour. mw2 21:35 Deloris from [facility] arrived and is talking with patient. mw2 22:29 faxed patient clinicals to all available psych facility. mw2 23:03 [facility] called they won't have any beds for a couple of days. mw2 23:39 IV discontinued, intact, bleeding controlled, No redness/swelling at site. Pressure as6 dressing applied. Administered Medications: 22:08 Drug: Motrin (ibuprofen) 800 mg Route: PO; vc1 23:38 Follow up: Response: No adverse reaction as6 22:08 Drug: Ativan (LORazepam) 1 mg Route: PO; vc1 23:39 Follow up: Response: No adverse reaction as6 22:35 Drug: Nicoderm CQ Patch 21 mg/24 hr 1 patches {Note: right shoulder.} Route: vc1 Transdermal; Site: affected area; 23:39 Follow up: Response: No adverse reaction as6 Medication: 23:39 VIS not applicable for this client. as6 Outcome: 21:18 ER care complete, transfer ordered by . shanon 23:25 Discharge ordered by MD. cp 23:39 Discharged to home ambulatory. as6 23:39 Condition: stable 23:39 Discharge instructions given to patient, Instructed on discharge instructions, follow up and referral plans. Demonstrated understanding of instructions, follow-up care. 23:40 Patient left the ED. as6 Signatures: Tatiana Arguelles mr River Singh PA PA cp Leal, Jahala, RN RN jl7 Merced Khan 3 Duncan Cox 2 Tom Valenzuela RN RN as6 Evita Castillo RN RN vc1 Ludin Alvarenga RN RN mb8 Cha Pedroza RN RN ko1 Corrections: (The following items were deleted from the chart) 15:52 15:45 Chief complaint: Patient states: "psychiatric crisis" wants to hurt self. Has ko1 been using drugs, thought about overdose. Was in detox center in [place]. Has infection to arm. ko1
--- NOTE | 2022-06-06 21:19 | EDPHYS ---
Physician Documentation [facility] [place] Name: Anthony Au Age: 37 yrs Sex: Male : 1985 Arrival Date: 06/06/2022 Time: 14:58 Bed 7 Private MD: ED Physician Kartik Palmer HPI: 06/06 15:50 This 37 yrs old Male presents to ER via Ambulatory with complaints of Mental cp Evaluation, withdrawals. 15:50 The patient presents to the emergency department with depression, a history of cp substance abuse, Type: methamphetamines. Onset: The symptoms/episode began/occurred today. Past psychiatric history: Prior diagnosis: addiction history, methamphetamines, bipolar disorder, depression. Associated signs and symptoms: The patient has no apparent associated signs or symptoms. 15:50 Patient reports he wants to overdose on drugs today. cp Historical: - Allergies: 16:18 No Known Allergies; jl7 - Home Meds: 15:47 Adderall XR Oral [Active]; Alprazolam Oral [Active]; ceboxone [Active]; Zyprexa Oral ko1 [Active]; - PMHx: 15:47 Anxiety; Asthma; Bipolar disorder; Depression; detox seizures; scalp laceration repair.;ko1 - PSHx: 15:47 I\T\D; ko1 - Immunization history:: Adult Immunizations unknown. - Social history:: Smoking status: Patient reports the use of cigarette tobacco products, smokes one pack cigarettes per day. ROS: 15:55 Constitutional: Negative for body aches, chills, fever, poor PO intake. cp 15:55 Eyes: Negative for injury, pain, redness, and discharge. cp 15:55 ENT: Negative for drainage from ear(s), ear pain, sore throat, difficulty swallowing, difficulty handling secretions. 15:55 Cardiovascular: Negative for chest pain, edema, palpitations. 15:55 Respiratory: Negative for cough, shortness of breath, wheezing. 15:55 Abdomen/GI: Negative for abdominal pain, nausea, vomiting, and diarrhea. 15:55 Back: Negative for pain at rest, pain with movement. 15:55 Neuro: Negative for altered mental status, dizziness, headache, weakness. 15:55 Psych: Negative for auditory hallucinations, visual hallucinations, homicidal ideation, suicide gesture. 15:55 All other systems are negative. Exam: 16:00 Constitutional: The patient appears in no acute distress, alert, awake, cp non-diaphoretic, non-toxic, well developed, well nourished. 16:00 Head/Face: Normocephalic, atraumatic. cp 16:00 Eyes: Periorbital structures: appear normal, Conjunctiva: normal, no exudate, no injection, Sclera: no appreciated abnormality, Lids and lashes: appear normal, bilaterally. 16:00 ENT: External ear(s): are unremarkable, Nose: is normal, Mouth: Lips: moist, Oral mucosa: pink and intact, moist, Posterior pharynx: Airway: no evidence of obstruction, patent. 16:00 Neck: ROM/movement: is normal, is supple, without pain, no range of motions limitations. 16:00 Chest/axilla: Inspection: normal, Palpation: is normal, no crepitus, no tenderness. 16:00 Cardiovascular: Rate: normal, Rhythm: regular. 16:00 Respiratory: the patient does not display signs of respiratory distress, Respirations: normal, no use of accessory muscles, no retractions, labored breathing, is not present, Breath sounds: are clear throughout, no decreased breath sounds, no stridor, no wheezing. 16:00 Abdomen/GI: Inspection: abdomen appears normal, Palpation: abdomen is soft and non-tender, in all quadrants. 16:00 Skin: cellulitis, is not appreciated, no rash present. 16:00 Neuro: Orientation: to person, place \T\ time. Mentation: is normal, Motor: moves all fours, strength is normal, Sensation: is normal. 18:19 ECG was reviewed by the Attending Physician. cp Vital Signs: 15:47 BP 136 / 97; Pulse 73; Resp 16; Temp 97.1; Pulse Ox 99% ; Weight 83.91 kg; Height 5 ft. ko1 8 in. (172.72 cm); Pain 8/10; 23:39 BP 142 / 66; Pulse 79; Resp 17 S; Pulse Ox 99% on R/A; as6 15:47 Body Mass Index 28.13 (83.91 kg, 172.72 cm) ko1 MDM: 17:04 Patient medically screened. cp 18:00 Differential diagnosis: drug withdrawal. acute psychotic break, depression, psychosis cp secondary to non-compliance. 19:15 Data reviewed: vital signs, nurses notes, lab test result(s), EKG. cp 19:15 Test interpretation: by ED physician or midlevel provider: ECG. cp 23:23 ED course: Patient reports he is not suicidal at this time and that he was pressured by cp mother of his child to come to ED. 06/06 17:17 Order name: Acetaminophen; Complete Time: 19:00 cp 06/06 17:17 Order name: Basic Metabolic Panel; Complete Time: 19:00 cp 06/06 17:17 Order name: CBC with Diff; Complete Time: 18:43 cp 06/06 18:43 Interpretation: Normal except: EOSINOPHIL % 4.9. cp 06/06 17:17 Order name: ETOH Level; Complete Time: 19:00 cp 06/06 17:17 Order name: Hepatic Function; Complete Time: 19:00 cp 06/06 17:17 Order name: PT-INR; Complete Time: 18:43 cp 06/06 17:17 Order name: Ptt, Activated; Complete Time: 18:43 cp 06/06 17:17 Order name: Salicylate; Complete Time: 19:00 cp 06/06 17:17 Order name: Urine Drug Screen; Complete Time: 18:43 cp 06/06 19:01 Interpretation: Reviewed. cp 06/06 17:17 Order name: EKG; Complete Time: 17:18 cp 06/06 17:25 Order name: Urine Dipstick-Ancillary; Complete Time: 18:43 EDMS 06/06 17:17 Order name: EKG - Nurse/Tech; Complete Time: 18:20 cp 06/06 17:17 Order name: IV Saline Lock; Complete Time: 17:32 cp 06/06 17:17 Order name: Labs collected and sent; Complete Time: 17:32 cp 06/06 17:17 Order name: Suicide Precautions; Complete Time: 17:32 cp 06/06 17:17 Order name: Suicide Screening ([place]); Complete Time: 17:32 cp 06/06 17:17 Order name: Urine Dipstick-Ancillary (obtain specimen); Complete Time: 17:32 cp 06/06 17:17 Order name: Wound dressing; Complete Time: 17:32 cp EC:19 Rate is 73 beats/min. Rhythm is regular. MI interval is normal. QRS interval is normal. cp QT interval is normal. T waves are Inverted in lead aVR. Interpreted by me. Reviewed by me. Administered Medications: 22:08 Drug: Motrin (ibuprofen) 800 mg Route: PO; vc1 23:38 Follow up: Response: No adverse reaction as6 22:08 Drug: Ativan (LORazepam) 1 mg Route: PO; vc1 23:39 Follow up: Response: No adverse reaction as6 22:35 Drug: Nicoderm CQ Patch 21 mg/24 hr 1 patches {Note: right shoulder.} Route: vc1 Transdermal; Site: affected area; 23:39 Follow up: Response: No adverse reaction as6 Disposition Summary: 06/06/22 23:25 Discharge Ordered Location: Home cp Problem: new(06/06/22 23:25) cp Symptoms: have improved(06/06/22 23:25) cp Condition: Stable(06/06/22 23:25) cp Diagnosis - Other depressive episodes cp Followup: cp - With: Private Physician - When: 1 - 2 days - Reason: Recheck today's complaints Discharge Instructions: - Discharge Summary Sheet cp - Managing Depression, Adult cp - Illegal Drug Use Information, Adult cp Forms: - Medication Reconciliation Form cp - Thank You Letter cp - Antibiotic Education cp - Prescription Opioid Use cp Signatures: Dispatcher [employer] EDMS River Singh PA PA cp Julissa Zepeda RN RN jl7 Evita Castillo RN RN vc1 Cha Pedroza RN RN ko1 Tom Valenzuela RN as6 Corrections: (The following items were deleted from the chart) 23:24 21:18 Doctor cp cp 23:24 21:18 Psych Facility cp cp 23:24 21:18 Higher level of care cp cp 23:24 21:18 Stable cp cp 23:24 21:18 new cp cp 23:24 21:18 are unchanged cp cp 23:24 21:18 Suicidal ideations cp cp
[2022-06-06] MEDS ORDERED: LORAZEPAM 1 MG TABLET ONE (22:14)
[2022-06-06] MEDS ORDERED: IBUPROFEN 400 MG TAB ONE (22:16)
[2022-06-06] MEDS ORDERED: NICOTINE 21 MG/PAT TD ONE (22:41)
[2022-06-07 03:23] VITALS: TEMP 97.1; O2SAT 99
[2022-06-07 03:25] VITALS: BP 142/66
--- NOTE | 2022-06-07 14:32 | EKG ---
Test Date: 2022-06-06 Test Time: 18:19:41 Bridge Worker Apprentice: SANG MEASUREMENT RESULTS: Intervals: Rate: 73 TN: 136 QRSD: 92 QT: 382 QTc: 420 [place]: P: 22 TN: 136 QRS: 87 T: 44 INTERPRETIVE STATEMENTS: Normal sinus rhythm Normal ECG Compared to ECG 04/12/2022 20:25:41 Right-axis deviation no longer present Electronically Signed On 06-07-22 14:29:45 CDT by Claudio Betancur
== END 2022-06-06 23:40 | disposition home or self-care (01) ==
LOC: ER 14:55
DX: F32.89 Other specified depressive episodes (principal); F17.210 Nicotine dependence, cigarettes, uncomplicated
CPT/HCPCS: 36415; 80048; 80076; 80307; 80320; 80329; 81003; 85025; 85610; 85730; 93005; 99285

== ENCOUNTER 2023-05-12 00:37 | Emergency (ER) | payer SELFPAY ==
--- OUTSIDE RECORDS SUMMARY | 2023-05-12 00:44 | XMS REPORT | Continuity of Care Document ---
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 Respiratory rate 2022-05-23 08:00:00 20 /min [facility] Oxygen saturation in 2022-05-23 08:00:00 95 /min [facility] Arterial blood by Pulse oximetry Body height 2022-05-19 11:13:00 172.7 cm [facility] Body weight 2022-05-19 11:13:00 81.557 kg [facility] BMI 2022-05-19 11:13:00 27.34 kg/m2 [facility] Procedures Procedure Date / Time Performing Clinician Source Performed CONSENT/REFUSAL FOR 2022-06-06 17:25:33 Doctor Unassigned, No Un [facility] DIAGNOSIS AND TREATMENT Name Medical Branch BASIC METABOLIC PANEL 2022-06-02 03:57:00 Heath Lawson [facility] Health AMIKACIN, TROUGH LEVEL 2022-05-31 21:13:00 Sil Soliz [facility] Health WOUND/ABSCESS CULTURE 2022-05-31 08:53:00 Gabe Dunlap [facility] Health AND GRAM [employer] STAIN AND CULTURE 2022-05-31 08:53:00 Gabe Dunlap [facility] Health ANAEROBE CULTURE 2022-05-31 08:53:00 Germán, [facility] FUNGUS STAIN AND CULTURE 2022-05-31 08:53:00 Germán [facility] BASIC METABOLIC PANEL 2022-05-31 05:12:00 Lawson, Heath [facility] GLUCOSE POC 2022-05-29 08:04:[address] [facility] CBC (WITHOUT 2022-05-29 04:33:00 Lawson, Heath [facility] ealt DIFFERENTIAL) BASIC METABOLIC PANEL 2022-05-29 04:33:00 Lawson, Heath [facility] GLUCOSE POC 2022-05-28 16:49:[address] [facility] GLUCOSE POC 2022-05-28 11:46:[address] [facility] GLUCOSE POC 2022-05-28 08:24:[address] [facility] CBC (WITHOUT 2022-05-28 04:36:00 Lawson, Heath Jose [facility] ealt DIFFERENTIAL) BASIC METABOLIC PANEL 2022-05-28 04:36:00 Lawson, Heath [facility] CBC (WITHOUT 2022-05-27 05:10:00 Lawson, Heath Jose [facility] ealt DIFFERENTIAL) BASIC METABOLIC PANEL 2022-05-27 05:10:00 Lawson, Heath [facility] AMIKACIN, RANDOM LEVEL 2022-05-27 05:10:00 Lupe Burch [facility] AMIKACIN, RANDOM LEVEL 2022-05-26 23:35:00 MarcinLupe ruano [facility] Health AMIKACIN, TROUGH LEVEL 2022-05-26 05:53:00 Arash Obando s Health CBC (WITHOUT 2022-05-26 05:53:00 Lawson, Heath [facility] ealt DIFFERENTIAL) BASIC METABOLIC PANEL 2022-05-26 05:53:00 Lawson, Heath [facility] CONSULT CLINICAL CASE 2022-05-25 14:55:14 Myles Lazcano [facility] MANAGEMENT (RN/SW) CBC/DIFF 2022-05-25 08:24:00 Lawson, Heath Jose [facility] ealt BASIC METABOLIC PANEL 2022-05-25 08:24:00 Heath Lawson [facility] CBC 2022-05-25 08:24:00 Narendra Lawsono Jose [facility] ealth ANAEROBE CULTURE 2022-05-24 20:47:00 [facility]SCESS [facility] 2022-05-24 20:47:00 [facility] [employer] STAIN AND CULTURE 2022-05-24 15:44:00 Germán [facility] FUNGUS STAIN AND CULTURE 2022-05-24 15:44:00 Germán [facility] INFUSION PUMP 2022-05-24 04:24:[address] [facility] CBC/DIFF 2022-05-24 04:22:00 Yasmany Gonzalez [facility] CBC 2022-05-24 04:22:00 Yasmany Gonzalez [facility] HIV AG/AB COMBO 2022-05-23 18:44:00 Alissa Avitia [facility] DIAGNOSTIC/SYMPTOMATIC HEPATITIS PANEL 2022-05-23 18:44:00 AdoreAlissa martell [facility] SARS-COV-2, FLU A/B, RSV 2022-05-23 15:41:00 Orlando Donald [facility] CORONAVIRUS, COVID-19, 2022-05-23 15:41:00 Orlando Donald [facility] YOKASTA BASIC METABOLIC PANEL 2022-05-23 11:25:00 Stefanie Mckinney [facility] CBC/DIFF 2022-05-23 11:25:00 Stefanie Mckinney [facility] CBC 2022-05-23 11:25:00 PrakashStefanie Monique [facility] SED RATE 2022-05-23 11:25:00 Orlando Donald [facility] C-REACTIVE PROT 2022-05-23 11:25:00 Orlando Donald [facility] LIMITED BEDSIDE 2022-05-23 11:08:27 Unknown, Provider [facility] ULTRASOUND AFFILIATE HC POC URINE 2022-05-19 21:30:00 Jennifer Alcala [facility] DRUG SCREEN AFFILIATE HC POC URINE 2022-05-19 21:30:00 Jennifer Alcala [facility] DRUG SCREEN I&D OF ABSCESS 2022-05-19 19:03:24 NiruChris Healt h I&D OF ABSCESS 2022-05-19 19:03:24 Niru Chris Jaramillo [facility] WOUND/ABSCESS CULTURE 2022-05-19 18:54:00 Chris Marrufo Ella [facility] AND GRAM STAIN WOUND/ABSCESS CULTURE 2022-05-19 18:54:00 Chris Marrufo Health AND GRAM STAIN XRAY FOREARM 2 VIEWS MIN 2022-05-19 17:04:37 Naomi Wells [facility] Health XRAY FOREARM 2 VIEWS MIN 2022-05-19 17:04:37 Naomi Wells [facility] Health CBC/DIFF 2022-05-19 14:29:00 Naomi Wells Healt h BASIC METABOLIC PANEL 2022-05-19 14:29:00 Naomi Wells [facility] LACTIC ACID 2022-05-19 14:29:00 Naomi Wells Healt h CBC 2022-05-19 14:29:00 Naomi Wells Healt h SED RATE 2022-05-19 14:29:00 Naomi Wells Healt h C-REACTIVE PROT 2022-05-19 14:29:00 Naomi Wells Healt h BASIC METABOLIC PANEL 2022-05-19 14:29:00 Naomi Wells Health CBC/DIFF 2022-05-19 14:29:00 Naomi Wells Healt h C-REACTIVE PROT 2022-05-19 14:29:00 Naomi Wells Healt h LACTIC ACID 2022-05-19 14:29:00 Naomi Wells Healt h SED RATE 2022-05-19 14:29:00 Naomi Wells [facility]alt [facility] CBC 2022-05-19 14:29:00 Naomi Wells [facility] AFFILIATE HC POC URINE 2022-05-19 11:15:00 Rodrigo Alcalaa [facility] DRUG SCREEN AFFILIATE HC POC URINE 2022-05-19 11:15:00 Cari Jennifer El [facility] DRUG SCREEN POC COVID-19 2022-05-17 17:50:00 Chambers Kerline El Healt h AFFILIATE HC POC URINE 2022-05-12 17:47:[address] [facility] DRUG SCREEN AFFILIATE HC POC URINE 2022-05-12 17:47:00 Rebel Case [facility] Health DRUG SCREEN POC COVID-19 2022-05-11 23:56:00 Rebel Case ealth XRAY WRIST 3 VIEWS MIN 2022-05-11 17:04:00 Hahn Rodriguez [facility] CBC/DIFF 2022-05-11 16:20:00 Hanh Rodriguez alth BASIC METABOLIC PANEL 2022-05-11 16:20:00 Hanh Rodriguez [facility] HIV AG/AB COMBO ROUTINE 2022-05-11 16:20:[address] [facility] SCREENING CBC 2022-05-11 16:20:00 Hanh Rodriguez alth URINE DRUG (IMMUNOASSAY) 2021-01-30 22:04:00 Shy Martin [facility] DRUG [facility] nc SCREEN HEPATIC FUNCTION PANEL 2021-01-30 22:03:00 Shy Martin [facility] ([id number]) (ALB,T.PRO,BILI [facility] Branch T,BU/BC,ALT,AST,ALK PHOS) BASIC METABOLIC PANEL 2021-01-30 22:03:00 Shy Martin [facility] (NA, K, CL, CO2, Medical Branch GLUCOSE, BUN, CREATININE, CA) SALICYLATE 2021-01-30 22:03:00 Shy Martin [facility] ETHANOL 2021-01-30 22:03:00 Shy Martin [facility] CBC WITH DIFF 2021-01-30 22:03:00 Shy Martin [facility] URINALYSIS 2021-01-30 22:02:00 Shy Martin [facility] COVID-19 (ID NOW RAPID 2021-01-30 22:02:00 Shy Martin [facility] TESTING) Medical Branch NOTICE OF PRIVACY 2021-01-30 21:37:21 Doctor Unassigned, No [facility] Branch CONSENT/REFUSAL FOR 2021-01-30 21:37:00 Doctor Unassigned, No [facility]NOS[facility] AND TREATMENT Name Medical [place] Plan of Care Planned Activity Planned Date Details Comments Source Future Scheduled Test 2022-07-02 IMM Influenza Seasonal [facility] 00:00:00 (>/= 19 yrs) [code = IMM Influenza Seasonal (>/= 19 yrs)] Future Scheduled Test 2022-07-02 IMM Influenza Seasonal [facility] 00:00:00 (>/= 19 yrs) [code = IMM Influenza Seasonal (>/= 19 yrs)] Future Scheduled Test 2022-07-02 IMM Influenza Seasonal [facility] 00:00:00 (>/= 19 yrs) [code = IMM Influenza Seasonal (>/= 19 yrs)] Future Scheduled Test 1992 Imm Pneumococcal 0-64 [facility] 00:00:00 (1 - PCV) [code = Imm Pneumococcal 0-64 (1 - PCV)] Future Scheduled Test 1992 Imm Pneumococcal 0-64 [facility] 00:00:00 (1 - PCV) [code = Imm Pneumococcal 0-64 (1 - PCV)] Future Scheduled Test 1992 Imm Pneumococcal 0-64 [facility] 00:00:00 (1 - PCV) [code = Imm Pneumococcal 0-64 (1 - PCV)] Future Scheduled Test 1986 COVID-19 Vaccine (#1) [facility] 00:00:00 [code = COVID-19 Vaccine (#1)] Future Scheduled Test 1986 COVID-19 Vaccine (#1) [facility] 00:00:00 [code = COVID-19 Vaccine (#1)] Future Scheduled Test 1986 COVID-19 Vaccine (#1) [facility] 00:00:00 [code = COVID-19 Vaccine (#1)] Future Scheduled Test 1986 Fluoride Varnish [code [facility] 00:00:00 = Fluoride Varnish] Future Scheduled Test 1986 Fluoride Varnish [code [facility] 00:00:00 = Fluoride Varnish] Encounters Start End Encounter Admission Attending Care Care Encounter Source Date/Time Date/Time Type Type Clinicians Facility Department ID 2022-06-15 Outpatient UTH UTH [id number] [place] 12:36:45 [id number] [facility] 2022-06-14 Emergency HFD HFD [id number] SAMANTHA - 12:01:29 [facility] 2022-06-[address] [facility] [id number] [place] 23:18:34 [id number] [facility] 2022-06-[address] [facility] [id number] [place] 23:16:[id number] [place] [address] 2022-04-[address] [facility] [id number] [place] 05:42:38 [id number] [facility] 2020-12-14 Inpatient HCABM LJ [id number] [facility] 08:08:00 72 [facility] 2020-12-13 Inpatient HCABM LJ [id number] [facility] 19:49:00 20 [facility] 2020-12-06 Inpatient HCABM HCABM [id number] [facility] 14:30:44 66 [facility] 2022-07-27 2022-07-27 Emergency E KENNY VAZQUEZ MHSW [id number] KENNY 08:49:00 12:49:00 BRY 2022-06-24 2022-06-24 Office [facility] [id number] [place] 08:00:00 08:30:00 Visit Fanta [facility] 2022-06-20 2022-06-20 Outpatient [facility] [id number] [place] [address] 00:00:00 00:00:00 [facility] 2022-06-14 2022-06-17 Emergency E MIGEL MEDINA MHNE [id number] MHNE 18:10:00 00:38:00 DANIEL 2022-06-14 2022-06-14 Emergency E MIGEL BUTT [id number] MHNE 10:48:00 15:20:00 SITA 2022-06-06 2022-06-06 Emergency X ZENON WVSUMA ERT [id number] Univers 12:34:00 13:23:00 DANIEL manrique [facility] 2022-06-06 2022-06-06 Emergency LILLIE Yarbrough [id number] Univers 12:34:00 13:23:00 Daniel MORELOS [id number] [facility] [id number] [facility] [id number] [facility] hermes 084 Branch 2022-06-03 2022-06-04 Emergency [facility] [id number] [facility] 00:00:00 22:29:00 [facility] 2022-06-03 2022-06-04 Emergency [facility] [id number] [facility] 00:00:00 22:29:00 [facility] 2022-06-03 2022-06-03 Outpatient [facility] [id number] [place] 23:37:47 23:59:00 [facility] 2022-06-03 2022-06-03 Outpatient [facility] [id number] [place] 21:28:26 23:36:00 [facility] 2022-05-23 2022-06-03 Hospital Reyes Jose F Kg [facility] [id number] [place] 13:09:00 18:30:00 Encounter Lupe Burch [facility] 2022-05-30 2022-05-30 Inpatient [facility] [id number] [place] 16:04:37 16:04:39 [facility] 2022-05-23 2022-05-23 [id number] [facility] 13:09:00 13:09:00 [facility] 2022-05-22 2022-05-22 Emergency Mariya, [facility] [id number] [place] 19:04:00 20:39:00 [facility] 2022-05-19 2022-05-19 Emergency Marisabel [facility] [id number] [place] 14:06:00 19:49:00 [facility] 2022-05-19 2022-05-19 Emergency 1 [facility] [id number] [place] 14:06:00 19:49:00 [facility] 2022-05-19 2022-05-19 Emergency JACK Petit [id number] [facility] 14:06:00 19:49:00 [place] [id number] [facility] .[id number] [id number] 2022-05-19 Emergency [facility] [id number] [place] 16:50:11 17:04:43 [facility] 2022-05-18 2022-05-19 Inpatient [facility] [id number] [place] 10:13:00 10:30:00 [facility] 2022-05-11 2022-05-18 Inpatient CHAMBERS, [facility] [id number] [place] 22:33:18 09:43:00 [facility] 2022-05-11 2022-05-11 [facility] [id number] [place] 19:53:00 21:53:00 [facility] 2022-05-11 2022-05-11 [facility] [id number] [place] 19:53:00 21:53:00 [facility] 2022-05-11 2022-05-11 Emergency [facility] [id number] [place] 16:54:18 17:05:03 [facility] 2022-05-11 2022-05-11 Emergency 1 [facility] [id number] [place] 16:05:00 16:05:00 [facility] 2021-01-30 2021-01-30 Emergency [facility] [id number] Univers 16:48:00 23:59:00 Shy Morelos 350.1.13.10 [facility] 4.2.7.2.686 [facility] [id number] [facility] 084 [place] 2021-01-30 2021-01-30 Emergency [facility] [id number] Univers 16:48:00 16:48:00 SHY ity [facility] 2021-01-30 2021-01-30 Orders Doctor JAKE [id number] Univers 00:00:00 00:00:00 Only Unassigned, ESTEFANY 350.1.13.10 ity [place] [facility] 4.2.7.2.686 [facility] [id number] [facility] 009 Branch 2020-03-03 2020-03-03 Emergency X [facility] ERT [id number] Univers 09:37:00 09:37:00 [facility] Results Test Description Test Time Test Comments Results Result Comments Source AFB Stain & Culture 2022-07-19 11:04:16 Test Item Value Reference Range Interpretation Comme nts AFB Culture (test code = 543-9) No acid fast bacilli isolated in 6 weeks AFB Stain (test code = 676-7) No acid fast bacilli seen TRACY (test code = TRACY) Reference value: No acid fast bacilli isolate d [facility] [id number] 19:03:24 Test Item Value Reference Range Interpretation Comments Fungus Culture (test No fungus isolated in 4 code = 580-1) weeks Fungus Stain (test No fungal elements seen code = 658-5) TRACY (test code = TRACY) Reference value: No fungus isolated [facility] [id number] 06:33:06 Test Item Value Reference Range Interpretation Comments Anaerobe Culture (test No anaerobes isolated code = 635-3) in 5 days TRACY (test code = TRACY) Reference value: No anaerobes isolated [facility] [id number] 06:33:06 Test Item Value Reference Range Interpretation Comments Anaerobe Culture (test No anaerobes isolated code = 635-3) in 5 days TRACY (test code = TRACY) Reference value: No anaerobes isolated [facility] & Gram [id number] 08:20:27 Test Item Value Reference Range Interpretation [...] the reference value is considered "No growth". [facility] & Gram [id number] 08:20:27 Test Item Value Reference Range Interpretation [...] the reference value is considered "No growth". [facility] [id number] 10:37:20 Test Item Value Reference Range Interpretation Comments Bacteria Spec ACID-FAST AA 1+ Acid fast Cult (test code = BACILLUS bacilliREF ER TO 6463-4) [id number] Reference value: Non-sterile sites may be contaminated with esperanza that is considered normal or otherwise not clinically relevant. As appropriate, normal results will indicate the presence or absence ofsuch esperanza. Otherwise, the reference value is considered "No growth".[facility] [id number] 10:36:38 Test Item Value Reference Range Interpretation Comments Bacteria Spec ACID-FAST AA Acid fast Cult (test code = BACILLUS bacilliREF ER TO 6463-4) [id number] Reference value: Non-sterile sites may be contaminated with esperanza that is considered normal or otherwise not clinically relevant. As appropriate, normal results will indicate the presence or absence ofsuch esperanza. Otherwise, the reference value is considered "No growth".[facility] [id number] 10:35:39 Test Item Value Reference Range Interpretation Comments Bacteria Spec ACID-FAST AA Acid fast Cult (test code = BACILLUS bacilliREF ER TO 6463-4) [id number] Reference value: Non-sterile sites may be contaminated with esperanza that is considered normal or otherwise not clinically relevant. As appropriate, normal results will indicate the presence or absence ofsuch esperanza. Otherwise, the reference value is considered "No growth".[facility] GLUCOSE POC docked device 2022-05-29 08:05:41 Test Item Value Reference Range Interpretation Comments Glucose POC (test code = 107 mg/dL 74-106 H MD television reporter Notified [id number]) Lab Interpretation (test Abnormal code = 67232-7) [facility] GLUCOSE POC docked [id number] 08:05:41 Test Item Value Reference Range Interpretation Comments Glucose POC (test code = 107 mg/dL 74-106 H MD television reporter Notified [id number]) Lab Interpretation (test Abnormal code = 62813-3) [facility] [id number] 14:19:13 Test Item Value Reference Range Interpretation Comments Bacteria Spec Cult ACID-FAST BACILLUS AA 4+ Acid fast (test code = bacilli 6463-4) [facility]+2 Ab+HIV1 p24 Ag SerPl Ql [id number] 19:49:40 Test Item Value Reference Range Interpretation Comments HIV 1+2 Ab+HIV1 p24 Ag SerPl Ql [place] NEGATIVE Negative (test code = 16784-7) HHSCoronavirus, CoVID-19, [id number] 16:40:22 Test Item Value Reference Interpretation Comments Range COVID-19 Not Detected Not Detected INTERPRETATION: (SARS-COV-2) (test No detect able code = 47441-5) levels of SARS-CoV-2 Coronavirus (COVID-19) were present [...] its performance characteristics were verified by the [facility] molecular diagnostics laboratory and is authorized for clinical diagnostic use. This laboratory is certified under the Clinical Laboratory Improvement Amendments (CLIA) as qualified to perform high complexity clinical laboratory testing. Lab Interpretation Normal (test code = 58596-3) [facility], CoVID-19, [id number] 16:40:22 Test Item Value Reference Interpretation Comments Range COVID-19 Not Detected Not Detected INTERPRETATION: (SARS-COV-2) (test No detect able code = 77975-5) levels of SARS-CoV-2 Coronavirus (COVID-19) were present [...] its performance characteristics were verified by the [facility] molecular diagnostics laboratory and is authorized for clinical diagnostic use. This laboratory is certified under the Clinical Laboratory Improvement Amendments (CLIA) as qualified to perform high complexity clinical laboratory testing. Lab Interpretation Normal (test code = 13348-6) [facility]-CoV-2 RNA Resp Ql [id number] 16:40:22 Test Item Value Reference Range Interpretation Comments Hospitalized? (test No code = 45964-3) ICU? (test code = No 33297-0) Symptomatic as defined No by CDC? (test code = 93116-0) Employed in Unknown Healthcare? (test code = 94010-0) Resident in a Unknown congregate care setting (including nursing homes, residential care for people with intellectual and developmental disabilities, psychiatric treatment facilities, group homes, board and care homes, homeless [place] health care facility, foster care or other): (test code = 46498-9) SARS-CoV-2 RNA Resp Ql NOT DETECTED Not Detected INTER PRETATION: No YOKASTA+probe (test code = detec table levels 87128-5) of SARS-CoV-2 Coronavirus (COVID-19) were present in [...] its performance characteristics were verified by the [facility] molecular diagnostics laboratory and is authorized for clinical diagnostic use. This laboratory is certified under the Clinical Laboratory Improvement Amendments (CLIA) as qualified to perform high complexity clinical laboratory testing.HHSHIV 1+2 Ab+HIV1 p24 Ag SerPl Ql [id number] 17:45:02 Test Item Value Reference Range Interpretation Comments HIV 1+2 Ab+HIV1 p24 Ag SerPl Ql [place] NEGATIVE Negative (test code = 62982-4) [id number] 23:16:25 Test Item Value Reference Range Interpretation Comments SALICYLATE (test code <10 mg/L = 4172838725) TRACY (test code = TRACY) Therapeutic Range: ? Analgesic and Antipyretic Use ? 20-100 mg/L ? ? Anti-Inflammatory Use ? 100-250 mg/L Toxic Range: ? Greater than 300 mg/L [facility] 23:16:15 Test Item Value Reference Range Interpretation Comments ALCOHOL (test code = <10 mg/dL [id number]) TRACY (test code = TRACY) <10 Mekyupdq66-000 Toxic>100 Depression of BLOW PIT OPERATOR>400 Fatalities Reported [facility]ET[facility]INOPHEN2021-[facility]-01 23:16:10 Test Item Value Reference Range Interpretation Comments ACETAMINOP (test code = <10.0 10.0-30.0 L [id number]) TRACY (test code = TRACY) Toxic: Greater than 200 ug/mL @ 4 hour post ingestion or greater than 50 ug/mL @ 12 hour post ingestion Lab Interpretation (test Abnormal code = 30578-4) [facility] (ALB, T.PRO, BILI T, BU/BC, ALT, AST, ALK PHOS)2021-01-30 23:14:14 Test Item Value Reference Range Interpretation Comments TOTAL BILI (test code = 3904028017) 0.8 mg/dL 0.1-1.1 BILI UNCON (test code = 1852176574) 0.6 mg/dL 0.1-1.1 BILI CONJ (test code = 9390574590) 0.0 mg/dL 0.0-0.3 T PROTEIN (test code = 9987750701) 7.5 g/dL 6.3-8.2 ALBUMIN (test code = 2024522887) 4.8 g/dL 3.5-5.0 ALK PHOS (test code = 3551346691) 63 U/L 34-122 ALTv (test code = 1742-6) 33 U/L 5-50 AST(SGOT) (test code = 5998079404) 36 U/L 13-40 Lab Interpretation (test code = Normal 86957-4) [facility] Metabolic Panel (NA, K, CL, CO2, GLUCOSE, BUN, CREATININE, CA)2021-01-30 23:13:54 Test Item Value Reference Range Interpretation Comments NA (test code = 142 mmol/L 135-145 1260590365) K (test code = 4.3 mmol/L 3.5-5.0 1061350627) CL (test code = 105 mmol/L 98-108 0857076764) CO2 TOTAL (test code 25 mmol/L 23-31 = 4197406782) AGAP (test code = 2-16 3200388996) BUN (test code = 17 mg/dL 7-23 7197526124) GLUCOSE (test code = 86 mg/dL 70-110 8675532535) CREATININE (test code 0.85 mg/dL 0.60-1.25 = 8232804523) CALCIUM (test code = 9.9 mg/dL 8.6-10.6 0502986562) eGFR (test code = mL/min/1.73m2 8060996625) TRACY (test code = TRACY) Association of [...] or urine or abnormalities in imaging tests). [facility] COMPREHENSIVE DRUG [id number] 23:05:57 Test Item Value Reference Range Interpretation Comments AMPHET (test code = Presumptive Positive Negative A 3202417815) CHACORTA U (test code = Negative Negative 3084678536) BENZO U (test code = Presumptive Positive Negative A 9098507029) Cocaine Metabolite (test Negative Negative code = 2285945846) METHADONE (test code = Negative Negative 7705925030) OPIATES (test code = Presumptive Positive Negative A 8046420954) PCP (test code = Negative Negative 3133362553) THC (test code = Presumptive Positive Negative A 5427293953) TRACY (test code = TRACY) Urine Drug [...] testing). Lab Interpretation (test Abnormal code = 95577-7) [facility]2021-01-30 22:34:55 Test Item Value Reference Range Interpretation Comments SARS-CoV-2 Rapid ID NOW Not Detected Not Detected (test code = 29710-6) TRACY (test code = TRACY) ID NOW COVID-19 Assay is an isothermal nucleic acid amplification test intended for the qualitative detection of nucleic acid from SARS-CoV-2 viral RNA in nasopharyngeal (ROOFING SUPERINTENDENT) specimens. It is used under Emergency Use [...] indicated. Lab Interpretation Normal (test code = 62857-7) [facility] 22:30:19 Test Item Value Reference Range Interpretation Comments APPEARANCE (test code = Clear Clear 5037262959) COLOR (test code = Yellow Yellow 0935966365) PH (test code = 4.8-8.0 6393883725) SP GRAVITY (test code = 1.003-1.030 6781280027) GLU U QUAL (test code = Normal Normal 7690146269) BLOOD (test code = Negative Negative 2416330135) KETONES (test code = Negative Negative 5507770537) PROTEIN (test code = Negative Negative 2887-8) UROBILIN (test code = 2.0 mg/dL Normal A 8800354230) BILIRUBIN (test code = Negative Negative 1425058957) NITRITE (test code = Negative Negative 5271071294) LEUK DIONE (test code = Negative Negative 6688705901) RBC/HPF (test code = See_Comment [Autom ated message] 9103853936) The system Archive generated this result transmit delroy reference range : 0 - 3 HPF. The refe rence range was not u sed to interpret th is result as normal/abnormal . WBC/HPF (test code = <1 See_Comment [Autom ated message] 7101458956) The system Archive generated this result transmit delroy reference range : 0 - 5 HPF. The refe rence range was not u sed to interpret th is result as normal/abnormal . BACTERIA (test code = Negative Negative 2814641791) SQ EPITH (test code = <1 HPF 0227741125) Lab Interpretation (test Abnormal code = 26161-3) [facility] with [id number] 22:19:35 Test Item Value Reference Range Interpretation [...] RDW-SD (test code = 42.8 fL 38.5-51.6 97999-4) RDW-CV (test code = 13.3 % 12.1-15.4 788-0) PLT (test code = See_Comment H [Automated 777-3) message] The sy stem which generated this result transmitted reference range : 150 - 328 10*3/ ?L. The reference r maru was not used to interpret this result as normal/abnormal . MPV (test code = 9.9 fL 9.8-13.0 49990-1) NRBC/100 WBC (test See_Comment [Automat ed code = 1967765924) message] The system which generated this result transmitted reference range : 0.0 - 10.0 /100 WBCs. The refer ence range was not u sed to interpret th is result as normal/abnormal . NRBC x10^3 (test code <0.01 See_Comment [Auto mated = 6769860257) message] The s ystem which generated this result transmitted reference range : 10*3/?L. The reference range was not used to interpret this result as normal/abnormal . GRAN MAT (NEUT) % 79.2 % (test code = 770-8) IMM GRAN % (test code 0.50 % = 9943131477) LYMPH % (test code = 14.8 % 736-9) MONO % (test code = 4.9 % 5905-5) EOS % (test code = 0.2 % 713-8) BASO % (test code = 0.4 % 706-2) GRAN MAT x10^3(ANC) 9.77 10*3/uL 1.99-6.95 H (test code = 5925290533) IMM GRAN x10^3 (test 0.06 10*3/uL 0.00-0.06 code = 8434014682) LYMPH x10^3 (test code 1.82 10*3/uL 1.09-3.23 = 731-0) MONO x10^3 (test code 0.60 10*3/uL 0.36-1.02 = 742-7) EOS x10^3 (test code = 0.03 10*3/uL 0.06-0.53 L 711-2) BASO x10^3 (test code 0.05 10*3/uL 0.01-0.09 = 704-7) Lab Interpretation Abnormal (test code = 16218-0) [facility] [id number] 20:48:00 Test Item Value Reference Range Interpretation Comments COVID 19 INHOUSE AG (test code = NEGATIVE [id number]) URINALYSIS [id number] 16:11:00 Test Item Value Reference Range Interpretation [...] Urine Source? Clean CatchDRUGS OF ABUSE SCREEN [id number] 16:11:00 Test Item Value Reference Range Interpretation Comments URN COCAINE (test code = NEGATIVE See_Comment [A utomated message] COCAURN) The system ic h generated this result transmitted ref erence [...] range: <200 ng/ mL. The reference r amru was not used to interpret this result as normal/abnor mal. URN BENZODIAZEPINE (test POSITIVE See_Comment [A utomated message] code = BENZOURN) The system which generated this result transmitted ref erence range: <200 ng/ mL. The reference r maru was not used to interpret this result as normal/abnor mal. URN OPIATES (test code = NEGATIVE See_Comment [A utomated message] OPIATURN) The system Archive generated this result transmitted ref erence range: [...] [A utomated message] = METHAURN) The system Archive generated this result transmitted ref erence range: <300 ng/ mL. The reference r maru was not used to interpret this result as normal/abnor mal. Urine Source? Clean CatchURINALYSIS [id number] 15:45:00 Test Item Value Reference Range Interpretation [...] Urine Source? Clean CatchDRUGS OF ABUSE SCREEN [id number] 15:45:00 Test Item Value Reference Range Interpretation Comments URN COCAINE (test code = NEGATIVE See_Comment [A utomated message] COCAURN) The system Archive generated this result transmitted ref erence range: [...] See_Comment [A utomated message] OPIATURN) The system Archive generated this result transmitted ref erence range: [...] [A utomated message] = METHAURN) The system Archive generated this result transmitted ref erence range: <300 ng/ mL. The reference r maru was not used to interpret this result as normal/abnor mal. Urine Source? Clean CatchURINALYSIS [id number] 14:21:00 Test Item Value Reference Range Interpretation [...] Urine Source? Clean CatchDRUGS OF ABUSE SCREEN [id number] 14:21:00 Test Item Value Reference Range Interpretation Comments URN COCAINE (test code = See_Comment [A utomated message] COCAURN) The system Archive generated this result transmitted ref erence range: [...] See_Comment [Automated message] = AMPHETURN) The system Archive generated this result transmitted ref erence range: <1000 ng /mL. The reference r maru was not used to interpret this result as normal/abnor mal. URN BARBITURATE (test code See_Comment [Automated message] = BARBITURN) The system Archive generated this result transmitted ref erence range: [...] See_Comment [A utomated message] OPIATURN) The system Archive generated this result transmitted ref erence range: [...] = See_Comment [Automated message] METHAURN) The system Archive generated this result transmitted ref erence range: <300 ng/ mL. The reference range was not used to int erpret this result as normal/abnormal . Urine Source? Clean CatchURINALYSIS [id number] 14:18:00 Test Item Value Reference Range Interpretation [...] Urine Source? Clean CatchDRUGS OF ABUSE SCREEN [id number] 14:18:00 Test Item Value Reference Range Interpretation Comments URN COCAINE (test code = See_Comment [A utomated message] COCAURN) The system Archive generated this result transmitted ref erence range: [...] See_Comment [Automated message] = AMPHETURN) The system Archive generated this result transmitted ref erence range: <1000 ng /mL. The reference r maru was not used to interpret this result as normal/abnor mal. URN BARBITURATE (test code See_Comment [Automated message] = BARBITURN) The system Archive generated this result transmitted ref erence range: [...] See_Comment [A utomated message] OPIATURN) The system Archive generated this result transmitted ref erence range: [...] = See_Comment [Automated message] METHAURN) The system Archive generated this result transmitted ref erence range: <300 ng/ mL. The reference range was not used to int erpret this result as normal/abnormal . Urine Source? Clean CatchBASIC METABOLIC [id number] 12:13:00 Test Item Value Reference Range Interpretation [...] ed MDRD (test code = GFR) formula. ron kidney disease is defined as eith er kidney damageor GFR <60 mL/min/1.73 m2 for >3 months. [Automated mess age] The system Archive generated this result transmitted ref erence range: >=60. Th e reference range was not used to int erpret this result as normal/abnormal . CREATININE (test 1.00 mg/dL 0.7-1.3 N code = CREAT) BUN/CREATININE RATIO 17.3 10-20 N (test code = BUN/CREA) CALCIUM (test code = 9.9 mg/dL 8.5-10.1 N CA) HEPATIC FUNCTION [id number] 12:13:00 Test Item Value Reference Range Interpretation [...] range due ALKP) to change in reagent. [id number] 12:13:00 Test Item Value Reference Range Interpretation Comments ACETAMINOPHEN (test < 10 mcg/mL 10-30 L A RANGE OF 10-30 code = ACET) mcg/mL IS A THERAPEUTIC RAN GE. TOXIC CONCENTRATIONS: >150 mcg/mL AT 4 ANTONIO RS AFTER INGESTION >= 50 mcg/mL AT 12 HOURS AFTER INGESTION [id number] 12:13:00 Test Item Value Reference Range Interpretation Comments SALICYLATE (test code = REANLDO) < 3.0 mg/dL 2.8-20.0 N [id number] 12:13:00 Test Item Value Reference Range Interpretation [...] AT AN ADDITIONAL CHARGE TO THE [facility]. CBC W/O [id number] 11:49:00 Test Item Value Reference Range Interpretation [...] 6.7-11.0 N = MPV) COVID 19 INHOUSE [id number] 00:12:00 Test Item Value Reference Range Interpretation Comments COVID 19 INHOUSE AG (test code = NEGATIVE [id number]) URINALYSIS [id number] 20:58:00 Test Item Value Reference Range Interpretation [...] Urine Source? Clean CatchDRUGS OF ABUSE SCREEN [id number] 20:58:00 Test Item Value Reference Range Interpretation Comments URN COCAINE (test code = NEGATIVE See_Comment [A utomated message] COCAURN) The system Archive generated this result transmitted ref erence range: [...] See_Comment [A utomated message] OPIATURN) The system Archive generated this result transmitted ref erence range: [...] [A utomated message] = METHAURN) The system Archive generated this result transmitted ref erence range: <300 ng/ mL. The reference r maru was not used to interpret this result as normal/abnor mal. Urine Source? Clean CatchBASIC METABOLIC [id number] 20:58:00 Test Item Value Reference Range Interpretation [...] Modifi ed MDRD (test code = GFR) formula.[facility] kidney disease is defined as eith er kidney damageor GFR <60 mL/min/1.73 m2 for >3 months. [Automated mess age] The system Archive generated this result transmitted ref erence range: >=60. Th e reference range was not used to int erpret this result as normal/abnormal . CREATININE (test 0.80 mg/dL 0.7-1.3 N code = CREAT) BUN/CREATININE RATIO 19.3 10-20 N (test code = BUN/CREA) CALCIUM (test code = 8.8 mg/dL 8.5-10.1 N CA) HEPATIC FUNCTION [id number] 20:58:00 Test Item Value Reference Range Interpretation [...] range due ALKP) to change in reagent. [id number] 20:58:00 Test Item Value Reference Range Interpretation Comments TROPONIN-I (test code = TROPI) < 0.006 ng/mL 0-0.045 N [id number] 20:58:00 Test Item Value Reference Range Interpretation Comments ACETAMINOPHEN (test < 10 mcg/mL 10-30 L A RANGE OF 10-30 code = ACET) mcg/mL IS A THERAPEUTIC RAN GE. TOXIC CONCENTRATIONS: >150 mcg/mL AT 4 ANTONIO RS AFTER INGESTION >= 50 mcg/mL AT 12 HOURS AFTER INGESTION [id number] 20:58:00 Test Item Value Reference Range Interpretation Comments SALICYLATE (test code = RENALDO) < 3.0 mg/dL 2.8-20.0 N [id number] 20:58:00 Test Item Value Reference Range Interpretation [...] AT AN ADDITIONAL CHARGE TO THE P [facility]. - CT HEAD/BRAIN W/O [id number] 20:52:00 [facility]Name: TEJ GUADALUPE : 1985 Sex: M Name: TEJ GUADALUPE [facility] : 1985 Age/S: 35 / M [address] Unit #: [id number] Loc: DEISY Saenz [address] Phys: Shaggy Morrow MD Acct: [id number] Dis Date: Status: PRE ER PHONE #:[phone] Exam Date: 12/13/20202017 FAX #: [phone] Reason: CONFUSION EXAMS: CPT CODE: [id number] CT HEAD/BRAIN W/O CONT 87777 HISTORY: CONFUSION TECHNIQUE: Noncontrast 2.5 mm axial [...] are unremarkable. IMPRESSION: Negative CT head. Location: at 2051 Reported and signed by: Tano Gauthier MD CC: Shaggy Morrow MD Technologist:Camilo Staley, RT(R)(CT) CTDI: DLP: Trnscb Date/Time: 12/13/2020 (2051) [email or web address] Orig Print D/T: S: 12/13/2020 (2054) PAGE 1 Signed Report URINALYSIS [id number] 20:39:00 Test Item Value Reference Range Interpretation [...] Urine Source? Clean CatchDRUGS OF ABUSE SCREEN [id number] 20:39:00 Test Item Value Reference Range Interpretation Comments URN COCAINE (test code = See_Comment [A utomated message] COCAURN) The system Archive generated this result transmitted ref erence range: [...] See_Comment [Automated message] = AMPHETURN) The system Archive generated this result transmitted ref erence range: <1000 ng /mL. The reference r maur was not used to interpret this result as normal/abnor mal. URN BARBITURATE (test code See_Comment [Automated message] = BARBITURN) The system Archive generated this result transmitted ref erence range: [...] See_Comment [A utomated message] OPIATURN) The system Archive generated this result transmitted ref erence range: [...] = See_Comment [Automated message] METHAURN) The system Archive generated this result transmitted ref erence range: <300 ng/ mL. The reference range was not used to int erpret this result as normal/abnormal . Urine Source? Clean CatchURINALYSIS [id number] 20:29:00 Test Item Value Reference Range Interpretation [...] Urine Source? Clean CatchDRUGS OF ABUSE SCREEN [id number] 20:29:00 Test Item Value Reference Range Interpretation Comments URN COCAINE (test code = See_Comment [A utomated message] COCAURN) The system Archive generated this result transmitted ref erence range: [...] See_Comment [Automated message] = AMPHETURN) The system Archive generated this result transmitted ref erence range: <1000 ng /mL. The reference r maru was not used to interpret this result as normal/abnor mal. URN BARBITURATE (test code See_Comment [Automated message] = BARBITURN) The system Archive generated this result transmitted ref erence range: [...] See_Comment [A utomated message] OPIATURN) The system Archive generated this result transmitted ref erence range: [...] = See_Comment [Automated message] METHAURN) The system whic h generated this result transmitted ref erence range: <300 ng/ mL. The reference range was not used to int erpret this result as normal/abnormal . Urine Source? Clean CatchCBC W/O [id number] 20:22:00 Test Item Value Reference Range Interpretation [...] code 9.8 fL 6.7-11.0 N = MPV) Notes Date/Time Note Provider Source 2022-05-19 Formatting of this note might be differe nt from the original. Jah Bueno RN [facility] 19:48:02-00:00 Pt AAOX4. Discharge instruct ions and prescription given, pt verbalizes understanding. Escorted to checkout with belongings in hand. Ambulatory with steady gait. VSS. Respirations even and unlabored. NAD upon departure. System Electronically signed by Jah Bueno RN at 0 05/19/2022 7:48 PM CDT 2022-05-19 Formatting of this note is different from the or iginal. [facility] 19:35:00-00:00 37 yo pt comes to ED w/ System Chief Complaint Patient presents with Mass Right fa- multiple masses r/t shooting up cryst al meth Withdrawal Reports he hasn't used in the last 7 days- Dru din, suboxone & klonopin Pt requesting "just a little benzodiazepine to h elp me" Pt is A&Ox4. Speech clear an d appropriate. PERRL. Pt is ambulatory w/ steady gait. Peripheral pulses +2 palpable. Pt has redness, swelling and tenderness to RUE. Pt has bandaids to drainage sites. N o active bleeding at this ti me. RR even and unlabored. Lungs CTA. Abd soft non tender, bowel sounds present. Cap refill < 3 secs. 5/5 strength to BUE and BLE. Pt denies CHAHAL, CP, fever, chills, n/v/d at this t alicia Pt Is pending d/c Electronically signed by Jah Bueno RN at 0 05/19/2022 7:48 PM CDT 2022-05-19 Associated Order(s): I&D of Abscess Internal Med icine [facility] 15:56:27-00:00 Post-Procedure Diagnose(s): Right wrist pain System Formatting of this note is different from the or iginal. History Chief Complaint Patient presents with Mass Right fa- multiple masses r/t shooting up cryst al meth Withdrawal Reports he hasn't used in the last 7 days- Dru din, suboxone & klonopin Pt requesting "just a little benzodiazepine to h elp me" 37 year old man in recovery program and H substance abuse (suboxone, clonapin, crystal meth with 1 week Hx, hydrocodone (obtained from doctor)), anxiety disorder, panic disorder, bipolar disorder Tx w ith Zyprexa and Prozac prese nting with pain and new mass on R arm and feels withdrawal symptoms from benzos. Approx 1 mo ago, injected meth into right wrist in several injection sites, came to hospital for cellulitis and had proce dure (surgical I&D) ([place]), treated with cellulitis and sent home with pain medication. At home, over the span of the next couple of weeks, used thumbtack self-isaiah rilized to open two sores, h as multiple boils, has drained pus/blood and has stopped draining blood. Migrating up arm and increased in level of pain. Went to the hospital and put on more Abx. Medications - gabapentin, Ab x (Bactrim, cefalexin, clonazepam, fluoxetine, olanzapine, gabapentin) Allergies - NKDA Gave 0.25 mg clonazepam Medical History No past medical history documented. Surgical History None Family Medical History None Social History Tobacco History Smoking Status Current Every Day Smoker Smoking Frequency 1 pack/day Smokeless Tobacco Use Never Used Tobacco Comment 1 pack/day Alcohol History Alcohol Use Status Never Drug Use Drug Use Status Yes Types Methamphetamines Comment last use- last week Sexual Activity Sexually Active Not Asked Activities of Daily Living Not Asked Review of Systems Constitutional: Negative for fever. HENT: Negative for sore throat. Respiratory: Negative for cough and shortness of breath. Cardiovascular: Negative for chest pain. Gastrointestinal: Negative for abdominal pain, d iarrhea and nausea. Genitourinary: Negative for dysuria. Neurological: Positive for numbness. Negative fo r weakness. Physical Exam BP 136/92 | Pulse (!) 115 | Temp 97.9 F (36.6 C) | Resp 20 | Ht 5' 8" (1.727 m) | Wt 81.6 kg | SpO2 96% | BMI 27.37 kg/m2 Physical Exam Constitutional: Appearance: He is normal weight. HENT: Head: Normocephalic and atraumatic. Nose: Nose normal. Eyes: Extraocular Movements: Extraocular movements in tact. Conjunctiva/sclera: Conjunctivae normal. Cardiovascular: Rate and Rhythm: Regular rhythm. Tachycardia pr esent. Comments: S1 and S2 auscultated without murmurs , gallops, or rubs Pulmonary: Effort: Pulmonary effort is normal. Breath sounds: Normal breath sounds. Abdominal: General: Abdomen is flat. Bowel sounds are norm al. Palpations: Abdomen is soft. Tenderness: There is no abdominal tenderness. Musculoskeletal: General: Swelling present. Cervical back: Normal range of motion. Comments: Open wounds and 4 tender, fluctuant masses on RUE, IV track perera bilaterally Skin: General: Skin is warm. Findings: Erythema present. Neurological: General: No focal deficit present. Mental Status: He is alert and oriented to pers on, place, and time. Comments: Numbness of the L ring finger, otherwise no deficits in sensation bilaterally, 5/5 strength in hands bilaterally Procedures I&D of Abscess Date/Time: 05/19/2022 7:03 PM Performed by: Chris Marrufo ResidentMD Authorized by: Daniel Petit MD Consent: Consent given by: Patient [place] protocol: Procedure explained and que stions answered to patient or proxy's satisfaction: yes Relevant documents present and verified: yes Test results available and properly labeled: ye s Imaging studies available: yes Required blood products, im plants, devices, and special equipment available: yes Site/side marked: yes Immediately prior to procedure a time out was c alled: no Patient identity confirmed: Verbally with patie nt Location: Type: Abscess Size: 1 cm Location: Upper extremity Upper extremity location: Arm Arm location: R lower arm Pre-procedure details: Skin preparation: Antiseptic wash and Chlorapre p Procedure type: Complexity: Simple Procedure details: Needle aspiration: yes Needle size: 20 G Incision type: no incision. Incision and drainage depth: N/A. Scalpel size: none. Drainage: Purulent and bloody Drainage amount: Scant Packing materials: None Post-procedure details: Patient tolerance of procedure: Tolerated well, no immediate complications Additional documentation:: No specimens removed Estimated blood loss (ml): 0 No prosthetic devices, grafts, tissues, transpl ants or devices implanted ED Course ED Course as of 05/19/22 190 Lea May 19, 2022 1856 TEACHING PHYSICIAN NOTE I personally examined Tej Guadalupe, performed the warner portions of the history and physical examination and was directly involved in his care. I reviewed the past medical records, laboratory results, and resident's note and agree with the findings as documented in the resident's note.. I discussed the case with the resident and agree with the diagnosis of: Abscess Cellulitis and plan: Patient with multiple small pustules w ith surrounding cellulitis. . Daniel Petit MD May 19, 2022 6:56 PM [RM] ED Course User Index [RM] Daniel Petit MD MDM Number of Diagnoses or Management Options Right wrist pain Diagnosis management comment s: 37 year old male with PMH substance abuse and IV drug use (crystal meth) presenting with multiple fluctuant masses and erythema consistent with abscess formation, cellulit is, and possible bacteremia with concurrent elmer odiazepine withdrawal. #Abscess formation vs. Cellulitis - BMP already ordered, distributive shock unlike ly - Denies urinary Sx, no need for UCx - CBC already resulted, no elevated WBC - Drain abscess and Cx I&D - Continue Abx course as giv en (cephalexin 500 mg 4 times daily, TMP-SMX 1 tablet q 12 hours) #Benzodiazepine withdrawal - On clonazepam currently, give gabapentin for b enzodiazepine withdrawal - Monitor CIWA score Dispo: D/C to facility, facility can monitor jack zodiazepine withdrawal Clinical Impression 1. Right wrist pain Chris Marrufo, [facility] Resident 05/19/22 1641 Chris Marrufo, [facility] Resident 05/19/22 1738 Chris Marrufo, [facility] [facility] Resident 05/19/22 1739 Chris Marrufo, [facility] Resident 05/19/22 1847 Chris Marrufo, [facility] Resident 05/19/22 1908 TEACHING PHYSICIAN NOTE I personally examined Tej Guadalupe, performed the warner portions of the history and physical examination and was directly involved in his care. I reviewed the past medical records, laboratory results and resident's note and agree with the findings as documented in the resident's note.. I discussed the case with the resident and agree with the diagnosis of: 1. Right wrist pain and plan: Right forearm pain: few pust ules/small areas of fluctuance. 2 sites with fluctuance treated with needle aspiration ~1 cc pus removed. Continue PO antibiotics, add warm compresses. No evidence of deep extension at this time. Benzo dependence: has been i n substance abuse treatment for just over a week. Taken off benzos and discharged on gabapentin, will provide dose of gabapentin now for benzo craving. Discharged in stable condition. Daniel Petit MD May 19, 2022 10:23 PM Daniel Petit MD 05/19/222225 2022-05-19 Formatting of this note might be differe nt from the original. Antwon Gonzalez [facility] 15:51:03-00:00 Assessment X2 pt's ID, ABC i ntact, A&Ox4, in no acute distress. Area clean and safe from hazards. Pt in bed in low locked position. 1/2 rails up. Follows commands and directions. Speech is clear and System appropriate. Pt is calm and cooperative. Denies headache, dizziness or blurry vision. PERRLA, no drainage from eyes or nares. Membranes moist, no JVD, denies sore throat, ROM of neck intact, tongue sym metrical. Heart: rate and rh ythm regular, denies chest pain. Lungs: clear bilateral, no cough. Resp: even and unlabored, denies SOB. ABD: non distended, BS present, no pain or tenderness, denies N/V/D. : no dysuria or hematuria. Skin: warm and dry. Pt is c/o an abscess on right wrist that is hot to touch. No peripheral edema. MAEX4 [id number] Call light and belongings within reach Pending evaluation and orders, will continue to monitor VINI Gonzalez Electronically signed by Antwon Gonzalez at 2021 3:54 PM CDT 2022-05-19 Formatting of this note might be differe nt from the original. Emma Weathers RN [facility] 12:42:01-00:00 Pt noted to have another hos pital arm band on stated "they told me to come here to get them lanced" System 2022-05-19 [facility] 12:32:25-00:00 Name and verified and confirmed correct with patient. System 2022-05-19 [facility] 12:30:12-00:00 MEDICAL SCREENING EXAMINATION PROVIDER NOTE System I evaluated and initiated th e medical screening examination of patient Tej Guadalupe. Warner Symptoms and Findings There were no vitals filed for this visit. History: 37 year old male presents to the ED with c/o right wrist pain since 2 weeks. He reports he has abscess on right wrist. He is detoxing from Benzos. Exam: Alert and oriented No acute distress Labs Reviewed - No data to display Assessment Further evaluation will be n ecessary in order to determine if an emergency medical condition exists. The patient will continue in process until such time they are deemed ready for disposition. The following have been ordered to facilitate ev aluation: Laboratory Studies Pain Assessment No intervention required. The patient is waiting to be roomed at this time . NAVEEN Matthews May 19, 2022 12:30 PM Electronically signed by Naomi Wells PA at 0 05/19/2022 12:32 PM CDT 2020-12-[address] [facility] 19:54:00-00:00 [facility] ([facility]) EMERGENCY PROVIDER REPORT REPORT#:[id number] REPORT STATUS: Signed DATE:12/13/20 TIME: 1953 PATIENT: TEJ GUADALUPE UNIT #: [id number] ROOM/BED: AGE: 35 SEX: M PCP PHYS: No Primary or Family Ph ysician SERVICE AUTHOR: Shaggy Morrow MD * ALL edits or amendments must be made on the [employer]/computer document * HPI-Seizure General Initial Greet Date/Time 12/13/20 1950 Presentation Chief Complaint Seizure, generalized Seizure Anatomic Location Generalized Hx Obtained From Patient, EMS Onset Occurred Today Symptom Duration Lasting minutes Progression since Onset Resolved Location gen Quality Unable to verbalize Radiation Does not radiate Severity: Onset Moderate Severity: Current No pain currently Associated Other Pt denies other symptoms Exacerbated by Nothing Relieved by Nothing Free Text HPI Notes Free Text HPI Notes Patient states he is withdra wing from [facility] and thinks he may have had a seizure. He describes this event as flopping a round on the ground but being conscious and knowing that he is doing such duri ng the event. It was not witnessed by EMS or anyone else to get a descrip tion. He also states he has been having suicidal thoughts. Denies fe preethi, falling, pain, trauma, difficulty breathing, ingestion/overdose. Denies ch est pain, tightness, or pressure, sob, lightheadedness, syncope, ex ertional symptoms, sweating, arm pain, back pain, or jaw pain. Denies focal numbness, focal weakness, changes in vision/speech/ hearing/gait. Risk-Seizure Free Text Risk Notes Free Text Risk Notes The patient's NIH score is 0. Level of conscious ness is alert and responsive. Answers month and age correctly. Blinks eyes and squeezes hands appropriately upon command. Normal eyra-ib-pmmp eye mo vements on extraocular muscle testing. No visual field losses bilaterally. Norm al symmetry of the face. No right arm, left arm, right leg, or left leg drift. No limb ataxia in any extremities. No sensory loss in the arms, legs, trunk, or face. No aphasia. No dysarthria. No extinction or inattention. Review of Systems ROS Statements All systems rev neg except as marked. Focused Review of Systems Respiratory Denies: Cough, non-productive, Cough, productive , Shortness of breath. Cardiovascular Denies: Chest pain, Syncope. Past Medical History - Adult Stated Complaint REPORTS SEIZURES Allergies Coded Allergies: No Known Allergies (12/13/20) Review of Nursing Notes Rev avail, and agree Pt reports no significant: Past medical history, Past surgical history, Family history Smoking status: Smoking status for patients 13 years old or old er: Unknown,if ever smoked Physical Exam Vital Signs Vital Signs First Documented: Result Date Time Pulse Ox 100 12/13 1949 B/P 154/84 12/13 1950 B/P Mean 107 12/13 1949 O2 Delivery Room air 12/13 1949 Temp 36.7 12/13 1949 Pulse 102 12/13 1949 Resp 16 12/13 1949 Last Documented: Result Date Time Pulse Ox 100 12/13 1949 B/P 154/84 12/13 1950 B/P Mean 107 12/13 1949 O2 Delivery Room air 12/13 1949 Temp 36.7 12/13 1949 Pulse 102 12/13 1949 Resp 16 12/13 1949 Review of Vital Signs Reviewed Focused PE General/Const General/Const Awake, Alert MS Head Head Normocephalic Eyes Eyes PERRL, EOMI, No photophobia Ears/Nose/Throat Ears/Nose/Throat Atraumatic, Airway patent, Pha rynx NL Mouth Mucous membranes dry. MS Neck Neck Supple, No meningismus, Full range of heena on, No swelling, Non-tender Resp/Chest Respiratory/Chest Breath sounds NL, Breath soun ds = bilat, No respiratory distress, No rales, No rhonchi, No wheezing Cardiovascular Cardiovascular Heart rate NL, Regular rhythm, H eart sounds NL, Peripheral circulation NL Abdomen/GI Abdomen/GI Soft, Non-tender, No guarding, No re bound MS Upper Extrem Upper Extremity/MS Atraumatic, Inspection NL, N o swelling, Non-tender MS Lower Extrem Lower Ext/Pelvis/MS Inspection NL, No swelling, Non-tender, No erythema, No deformity, Neurologic intact, Vascular intact, N o edema Skin Skin Color NL, Warm, Dry, Intact, Turgor NL Neurologic Neurologic Oriented X3, Speech NL, No m otor deficits, No sensory deficits, CN II - XII intact, Reflexes equal bilat, Cerebella r NL, Memory NL, Gait NL Psychiatric Psychiatric Affect NL, Mood NL, Not homicidal, No hallucinations, Cognitive function NL, Judgment/insight NL, Thought conten t NL Interpretation Diagnostics Lab Results Interpretation Results Laboratory Tests 12/13/202004: [Embedded Image Not Available] Laboratory Tests: 12/13 Chemistry Sodium (136 - 145 mmol/L) 134 L Potassium (3.5 - 5.1 mmol/L) 4.2 Chloride (98 - 107 mmol/L) 103.0 Carbon Dioxide (21 - 32 mmol/L) 23.0 Anion Gap (10 - 20) 12.2 BUN (7 - 18 mg/dL) 16 Creatinine (0.7 - 1.3 mg/dL) 0.80 Glomerular Filtr Rate (>=60 mL/min) > 60 BUN/Creatinine Ratio (10 - 20) 19.3 Glucose (74 - 106 mg/dL) 101 Calcium (8.5 - 10.1 mg/dL) 8.8 Total Bilirubin (0.0 - 1.0 mg/dL) 0.40 Direct Bilirubin (0.0 - 0.20 mg/dL) < 0.10 AST (15 - 37 IUnit/L) 32 ALT (12 - 78 IUnit/L) 47 Total Alk Phosphatase (45 - 117 IUnit/L) 65 Troponin I (0 - 0.045 ng/mL) < 0.006 Total Protein (6.4 - 8.2 gram/dL) 7.0 Albumin (3.4 - 5.0 g/dL) 4.0 Globulin (2.7 - 4.2 gram/dL) 3.0 Albumin/Globulin Ratio (0.75 - 1.50) 1.3 Hematology WBC (4.5 - 12.5 K/mm3) 11.5 RBC (4.0 - 5.8 mill/mm3) 4.43 Hgb (13.0 - 17.5 gram/dL) 13.6 Hct (42.0 - 52.0 %) 40.2 L MCV (80 - 98 fL) 90.7 MCH (27.0 - 33.0 picogram) 30.7 MCHC (33.0 - 36.0 gram/dL) 33.8 RDW (11.6 - 16.2 %) 13.9 Plt Count (150 - 450 K/mm3) 304 MPV (6.7 - 11.0 fL) 9.8 Toxicology Salicylates (2.8 - 20.0 mg/dL) < 3.0 Urine Opiates Screen (<300 ng/mL) NEGATIVE Urine Methadone Screen (<300 ng/mL) NEGATIVE Acetaminophen (10 - 30 mcg/mL) < 10 L Urine Barbiturates (<200 ng/mL) NEGATIVE Ur Phencyclidine Scrn (<25 ng/mL) NEGATIVE Ur Amphetamines Screen (<1000 ng/mL) NEGATIVE U Benzodiazepines Scrn (<200 ng/mL) POSITIVE Urine Cocaine Screen (<300 ng/mL) NEGATIVE Urine Cannabinoids (<50 ng/mL) NEGATIVE Ethyl Alcohol (0.0 - 3.0 mg/dL) 25 H Urines Urine Color (YELLOW) Light-Yellow Urine Appearance (CLEAR) CLEAR Urine pH (5.0 - 8.0) 6.5 Ur Specific [place] (1.001 - 1.035) 1.014 Urine Protein (NEGATIVE mg/dL) NEGATIVE Urine Glucose (UA) (NEGATIVE mg/dL) NEGATIVE Urine Ketones (NEGATIVE mg/dL) NEGATIVE Urine Blood (NEGATIVE mg/dL) Negative Urine Nitrite (NEGATIVE) NEGATIVE Urine Bilirubin (NEGATIVE mg/dL) NEGATIVE Urine Urobilinogen (NEGATIVE mg/dL) Normal Ur Leukocyte Esterase (NEGATIVE Matt/uL) NEGATIV E Urine RBC (0 - 5 #/HPF) 0-2 Urine WBC (0 - 5 per HPF) 0-5 Ur Epithelial Cells (FEW per HPF) FEW Urine Bacteria (NONE #/HPF) NONE SEEN Urine Mucus (FEW #/LPF) FEW Recent Impressions: CAT SCAN - CT HEAD/BRAIN W/O CONT 12/13 2009 Report Impression - Status: SIGNED Entered: 12/13/20202054 IMPRESSION: Negative CT head. Location: RR Impression By: [email or web address] - Tano Gauthier MD Point of Care Testing Pulse Oximetry Pulse Ox % 98 On: Room air Interpretation Interpreted by me, Pulse oximetr y normal Time 1956 Re-Evaluation MDM ED Course Medication(s) Ordered Medication(s) Ordered: Antihistamine Drugs Sig/Darius Start time Last Medication Dose Route Stop Time Status Admin Diphenhydramine HCl 25 MG Q6H PRN PRN 12/13 213 0 AC PO 01/12 2129 Autonomic Drugs Sig/Darius Start time Last Medication Dose Route Stop Time Status Admin Albuterol/Ipratropium 3 ML RTQ4H PRN PRN 12/13 2130 r INH 01/12 2129 Nicotine 21 MG Q24H PRN PRN 12/13 2129 CKD TRANSDERM 01/12 2129 Central Nervous System Agents Sig/Darius Start time Last Medication Dose Route Stop Time Status Admin Acetaminophen 650 MG Q6H PRN PRN 12/13 2130 AC PO 01/12 2129 Chlordiazepoxide HCl 50 MG Q6H PRN PRN 12/13 21 30 AC PO 01/12 2129 Ibuprofen 600 MG Q6H PRN PRN 12/13 2130 AC PO 01/12 2129 Lorazepam 2 MG Q6H PRN PRN 12/13 2130 AC PO 01/12 2129 Quetiapine Fumarate 50 MG Q4H PRN PRN 12/13 213 0 AC PO 01/12 2129 Trazodone HCl 50 MG BEDTIME PRN PRN 12/13 2130 r PO 01/12 2129 Levetiracetam 100 ML X1ED STA 12/13 1953 DC IV 12/13 Lorazepam 1 MG X1ED STA 12/13 1952 DC 12/13 IV 12/13 Electrolytic, Caloric, And Shayna Sig/Darius Start time Last Medication Dose Route Stop Time Status Admin Potassium Chloride 40 MEQ Q12H PRN PRN 12/13 21 30 AC PO 01/12 2129 Sodium Chloride 1,000 ML X1ED STA 12/13 1952 DC 12/13 IV 12/13 Gastrointestinal Drugs Sig/Darius Start time Last Medication Dose Route Stop Time Status Admin Docusate Sodium 100 MG Q12H PRN PRN 12/13 2130 AC PO 01/12 2129 Famotidine 20 MG Q12H PRN PRN 12/13 2129 AC PO 01/12 2129 Ondansetron Base 4 MG Q6H PRN PRN 12/13 2129 r PO 01/12 2129 Patient Discharge Departure Vital Signs/Condition Vital Signs First Documented: Result Date Time Pulse Ox 100 12/13 1949 B/P 154/84 12/13 1949 B/P Mean 107 12/13 1949 O2 Delivery Room air 12/13 1949 Temp 36.7 12/13 1949 Pulse 102 12/13 1949 Resp 16 12/13 1949 Last Documented: Result Date Time Pulse Ox 100 12/13 1949 B/P 154/84 12/13 1950 B/P Mean 107 12/13 1949 O2 Delivery Room air 12/13 1949 Temp 36.7 12/13 1949 Pulse 102 12/13 1949 Resp 16 12/13 1949 All vital signs available at the time of this en try have been reviewed. Clinical Impression Clinical Impression Primary Impression: Depression Secondary Impressions: POSSIBLE SEIZURE Pt/Provider Handoff Care Transferred at 2238 (to Dr. Mari) Electronically Signed by Shaggy Morrow MD on 11/30 01/20 at 2238 RPT #:[id number] END OF REPORT 2020-12-[address] [facility] 19:54:00-00:00 [facility] ([facility]) EMERGENCY PROVIDER REPORT REPORT#:[id number] REPORT STATUS: Signed DATE:12/13/20 TIME: 1953 PATIENT: TEJ GUADALUPE UNIT #: [id number] ROOM/BED: AGE: 35 SEX: M PCP PHYS: No Primary or Family Ph ysician SERVICE AUTHOR: Shaggy Morrow MD * ALL edits or amendments must be made on the el Clinician [employer]/computer document * Shaggy Morrow 12/13/201953: HPI-Seizure General Initial Greet Date/Time 12/13/201949 Presentation Chief Complaint Seizure, generalized Seizure Anatomic Location Generalized Hx Obtained From Patient, EMS Onset Occurred Today Symptom Duration Lasting minutes Progression since Onset Resolved Location gen Quality Unable to verbalize Radiation Does not radiate Severity: Onset Moderate Severity: Current No pain currently Associated Other Pt denies other symptoms Exacerbated by Nothing Relieved by Nothing Free Text HPI Notes Free Text HPI Notes Patient states he is withdra wing from [employer] [facility] [employer] and thinks he may have had a seizure. He describes this event as flopping a round on the ground but being conscious and knowing that he is doing such duri ng the event. It was not witnessed by EMS or anyone else to get a descrip tion. He also states he has been having suicidal thoughts. Denies fe preethi, falling, pain, trauma, difficulty breathing, ingestion/overdose. Denies ch est pain, tightness, or pressure, sob, lightheadedness, syncope, ex ertional symptoms, sweating, arm pain, back pain, or jaw pain. Denies focal numbness, focal weakness, changes in vision/speech/ hearing/gait. Risk-Seizure Free Text Risk Notes Free Text Risk Notes The patient's NIH score is 0. Level of conscious ness is alert and responsive. Answers month and age correctly. Blinks eyes and squeezes hands appropriately upon command. Normal ifal-wv-hcuu eye mo vements on extraocular muscle testing. No visual field losses bilaterally. Norm al symmetry of the face. No right arm, left arm, right leg, or left leg drift. No limb ataxia in any extremities. No sensory loss in the arms, legs, trunk, or face. No aphasia. No dysarthria. No extinction or inattention. Review of Systems ROS Statements All systems rev neg except as marked. Focused Review of Systems Respiratory Denies: Cough, non-productive, Cough, productive , Shortness of breath. Cardiovascular Denies: Chest pain, Syncope. Past Medical History - Adult Stated Complaint REPORTS SEIZURES Allergies Coded Allergies: No Known Allergies (12/13/20) Review of Nursing Notes Rev avail, and agree Pt reports no significant: Past medical history, Past surgical history, Family history Smoking status: Smoking status for patients 13 years old or old er: Unknown,if ever smoked Physical Exam Vital Signs Vital Signs First Documented: Result Date Time Pulse Ox 100 12/13 1949 B/P 154/84 12/13 1949 B/P Mean 107 12/13 1949 O2 Delivery Room air 12/13 1949 Temp 36.7 12/13 1949 Pulse 102 12/13 1949 Resp 12/13 Last Documented: Result Date Time Pulse Ox 100 12/13 1949 B/P 154/84 12/13 1949 B/P Mean 107 12/13 1949 O2 Delivery Room air 12/13 1949 Temp 36.7 12/13 1949 Pulse 102 12/13 1949 Resp 16 03/14 1950 Review of Vital Signs Reviewed Focused PE General/Const General/Const Awake, Alert MS Head Head Normocephalic Eyes Eyes PERRL, EOMI, No photophobia Ears/Nose/Throat Ears/Nose/Throat Atraumatic, Airway patent, Pha rynx NL Mouth Mucous membranes dry. MS Neck Neck Supple, No meningismus, Full range of heena on, No swelling, Non-tender Resp/Chest Respiratory/Chest Breath sounds NL, Breath soun ds = bilat, No respiratory distress, No rales, No rhonchi, No wheezing Cardiovascular Cardiovascular Heart rate NL, Regular rhythm, H eart sounds NL, Peripheral circulation NL Abdomen/GI Abdomen/GI Soft, Non-tender, No guarding, No re bound MS Upper Extrem Upper Extremity/MS Atraumatic, Inspection NL, N o swelling, Non-tender MS Lower Extrem Lower Ext/Pelvis/MS Inspection NL, No swelling, Non-tender, No erythema, No deformity, Neurologic intact, Vascular intact, N o edema Skin Skin Color NL, Warm, Dry, Intact, Turgor NL Neurologic Neurologic Oriented X3, Speech NL, No m otor deficits, No sensory deficits, CN II - XII intact, Reflexes equal bilat, Cerebella r NL, Memory NL, Gait NL Psychiatric Psychiatric Affect NL, Mood NL, Not homicidal, No hallucinations, Cognitive function NL, Judgment/insight NL, Thought conten t NL Interpretation Diagnostics Lab Results Interpretation Results Laboratory Tests 12/13/202004: [Embedded Image Not Available] Laboratory Tests: 12/13 12/13 12/13 2224 2004 2004 Chemistry Sodium (136 - 145 mmol/L) 134 L Potassium (3.5 - 5.1 mmol/L) 4.2 Chloride (98 - 107 mmol/L) 103.0 Carbon Dioxide (21 - 32 mmol/L) 23.0 Anion Gap (10 - 20) 12.2 BUN (7 - 18 mg/dL) 16 Creatinine (0.7 - 1.3 mg/dL) 0.80 Glomerular Filtr Rate (>=60 mL/min) > 60 BUN/Creatinine Ratio (10 - 20) 19.3 Glucose (74 - 106 mg/dL) 101 Calcium (8.5 - 10.1 mg/dL) 8.8 Total Bilirubin (0.0 - 1.0 mg/dL) 0.40 Direct Bilirubin (0.0 - 0.20 mg/dL) < 0.10 AST (15 - 37 IUnit/L) 32 ALT (12 - 78 IUnit/L) 47 Total Alk Phosphatase (45 - 117 IUnit/L) 65 Troponin I (0 - 0.045 ng/mL) < 0.006 Total Protein (6.4 - 8.2 gram/dL) 7.0 Albumin (3.4 - 5.0 g/dL) 4.0 Globulin (2.7 - 4.2 gram/dL) 3.0 Albumin/Globulin Ratio (0.75 - 1.50) 1.3 Hematology WBC (4.5 - 12.5 K/mm3) 11.5 RBC (4.0 - 5.8 mill/mm3) 4.43 Hgb (13.0 - 17.5 gram/dL) 13.6 Hct (42.0 - 52.0 %) 40.2 L MCV (80 - 98 fL) 90.7 MCH (27.0 - 33.0 picogram) 30.7 MCHC (33.0 - 36.0 gram/dL) 33.8 RDW (11.6 - 16.2 %) 13.9 Plt Count (150 - 450 K/mm3) 304 MPV (6.7 - 11.0 fL) 9.8 Serology SARS-CoV-2 Ag (Rapid) NEGATIVE Toxicology Salicylates (2.8 - 20.0 mg/dL) < 3.0 Urine Opiates Screen (<300 ng/mL) NEGATIVE Urine Methadone Screen (<300 ng/mL) NEGATIVE Acetaminophen (10 - 30 mcg/mL) < 10 L Urine Barbiturates (<200 ng/mL) NEGATIVE Ur Phencyclidine Scrn (<25 ng/mL) NEGATIVE Ur Amphetamines Screen (<1000 ng/mL) NEGATIVE U Benzodiazepines Scrn (<200 ng/mL) POSITIVE Urine Cocaine Screen (<300 ng/mL) NEGATIVE Urine Cannabinoids (<50 ng/mL) NEGATIVE Ethyl Alcohol (0.0 - 3.0 mg/dL) 25 H Urines Urine Color (YELLOW) Light-Yellow Urine Appearance (CLEAR) CLEAR Urine pH (5.0 - 8.0) 6.5 Ur Specific [place] (1.001 - 1.035) 1.014 Urine Protein (NEGATIVE mg/dL) NEGATIVE Urine Glucose (UA) (NEGATIVE mg/dL) NEGATIVE Urine Ketones (NEGATIVE mg/dL) NEGATIVE Urine Blood (NEGATIVE mg/dL) Negative Urine Nitrite (NEGATIVE) NEGATIVE Urine Bilirubin (NEGATIVE mg/dL) NEGATIVE Urine Urobilinogen (NEGATIVE mg/dL) Normal Ur Leukocyte Esterase (NEGATIVE Matt/uL) NEGATI VE Urine RBC (0 - 5 #/HPF) 0-2 Urine WBC (0 - 5 per HPF) 0-5 Ur Epithelial Cells (FEW per HPF) FEW Urine Bacteria (NONE #/HPF) NONE SEEN Urine Mucus (FEW #/LPF) FEW Recent Impressions: CAT SCAN - CT HEAD/BRAIN W/O CONT 12/13 2009 Report Impression - Status: SIGNED Entered: 12/13/20202054 IMPRESSION: Negative CT head. Location: RR Impression By: [id number] - Tano Gauthier MD Point of Care Testing Pulse Oximetry Pulse Ox % 98 On: Room air Interpretation Interpreted by me, Pulse oximetr y normal Time 1956 Re-Evaluation [facility] ED Course Medication(s) Ordered Medication(s) Ordered: Antihistamine Drugs Sig/Darius Start time Last Medication Dose Route Stop Time Status Admin Diphenhydramine HCl 25 MG Q6H PRN PRN 12/13 213 0 AC PO 01/12 2129 Autonomic Drugs Sig/Darius Start time Last Medication Dose Route Stop Time Status Admin Albuterol/Ipratropium 3 ML RTQ4H PRN PRN 12/130 r INH 01/12 2129 Nicotine 21 MG Q24H PRN PRN 12/13 2129 CKD TRANSDERM 01/12 2129 Central Nervous System Agents Sig/Darius Start time Last Medication Dose Route Stop Time Status Admin Acetaminophen 650 MG Q6H PRN PRN 12/13 2130 AC PO 01/12 2129 Chlordiazepoxide HCl 50 MG Q6H PRN PRN 12/13 21 30 AC PO 01/12 2129 Ibuprofen 600 MG Q6H PRN PRN 12/13 2130 AC PO 01/12 2129 Lorazepam 2 MG Q6H PRN PRN 12/130 AC PO 01/12 2129 Quetiapine Fumarate 50 MG Q4H PRN PRN 12/13 213 0 AC PO 01/12 2129 Trazodone HCl 50 MG BEDTIME PRN PRN 12/13 2130 r PO 01/12 2129 Levetiracetam 100 ML X1ED STA 12/13 1953 DC IV 12/13 Lorazepam 1 MG X1ED STA 12/13 1952 DC 12/13 IV 12/13 Electrolytic, Caloric, And Shayna Sig/Darius Start time Last Medication Dose Route Stop Time Status Admin Potassium Chloride 40 MEQ Q12H PRN PRN 12/13 21 30 AC PO 01/12 2129 Sodium Chloride 1,000 ML X1ED STA 12/13 1952 DC 12/13 IV 12/13 Gastrointestinal Drugs Sig/Darius Start time Last Medication Dose Route Stop Time Status Admin Docusate Sodium 100 MG Q12H PRN PRN 12/13 213 AC PO 01/12 2129 Famotidine 20 MG Q12H PRN PRN 12/13 2129 AC PO 01/12 2129 Ondansetron Base 4 MG Q6H PRN PRN 12/13 2129 r PO 01/12 2129 Patient Discharge Departure Vital Signs/Condition Vital Signs First Documented: Result Date Time Pulse Ox 100 12/13 1950 B/P 154/84 12/13 1950 B/P Mean 107 12/13 1950 O2 Delivery Room air 12/13 1950 Temp 36.7 12/13 1950 Pulse 102 12/13 1950 Resp 16 12/13 1950 Last Documented: Result Date Time Pulse Ox 100 12/13 1950 B/P 154/84 12/13 1950 B/P Mean 107 12/13 1950 O2 Delivery Room air 12/13 1950 Temp 36.7 12/13 1950 Pulse 102 12/13 1950 Resp 16 12/13 1950 All vital signs available at the time of this en try have been reviewed. Clinical Impression Clinical Impression Primary Impression: Depression Secondary Impressions: POSSIBLE SEIZURE Pt/Provider Handoff Care Transferred at 2237 (to Dr. Mari) Katarina Mari 12/14/20 0518: Re-Evaluation MDM Re-Evaluation/Progress #1 Text/Dict Note Patient to be signed over to Dr. Rhodes at 7 AM. I will continue to monitor the patient until that time. Time of Re-Eval 0518 Electronically Signed by Shaggy Morrow MD on 11/30 01/20 at 2238 at 0519 RPT #:[id number] END OF REPORT 2020-12-[address] [facility] 19:54:00-00:00 [facility] ([facility]) EMERGENCY PROVIDER REPORT REPORT#:[id number] REPORT STATUS: Signed DATE:12/13/20 TIME: 1953 PATIENT: TEJ GUADALUPE UNIT #: [id number] ROOM/BED: AGE: 35 SEX: M PCP PHYS: No Primary or Family Ph ysician SERVICE AUTHOR: Shaggy Morrow MD * ALL edits or amendments must be made on the [employer]/computer document * Shaggy Morrow 12/13/201953: HPI-Seizure General Initial Greet Date/Time 12/13/20 1950 Presentation Chief Complaint Seizure, generalized Seizure Anatomic Location Generalized Hx Obtained From Patient, EMS Onset Occurred Today Symptom Duration Lasting minutes Progression since Onset Resolved Location gen Quality Unable to verbalize Radiation Does not radiate Severity: Onset Moderate Severity: Current No pain currently Associated Other Pt denies other symptoms Exacerbated by Nothing Relieved by Nothing Free Text HPI Notes Free Text HPI Notes Patient states he is withdra wing from [employer] [facility] [employer] and thinks he may have had a seizure. He describes this event as flopping a round on the ground but being conscious and knowing that he is doing such duri ng the event. It was not witnessed by EMS or anyone else to get a descrip tion. He also states he has been having suicidal thoughts. Denies fe preethi, falling, pain, trauma, difficulty breathing, ingestion/overdose. Denies ch est pain, tightness, or pressure, sob, lightheadedness, syncope, ex ertional symptoms, sweating, arm pain, back pain, or jaw pain. Denies focal numbness, focal weakness, changes in vision/speech/ hearing/gait. Risk-Seizure Free Text Risk Notes Free Text Risk Notes The patient's NIH score is 0. Level of conscious ness is alert and responsive. Answers month and age correctly. Blinks eyes and squeezes hands appropriately upon command. Normal [id number] eye mo vements on extraocular muscle testing. No visual field losses bilaterally. Norm al symmetry of the face. No right arm, left arm, right leg, or left leg drift. No limb ataxia in any extremities. No sensory loss in the arms, legs, trunk, or face. No aphasia. No dysarthria. No extinction or inattention. Review of Systems ROS Statements All systems rev neg except as marked. Focused Review of Systems Respiratory Denies: Cough, non-productive, Cough, productive , Shortness of breath. Cardiovascular Denies: Chest pain, Syncope. Past Medical History - Adult Stated Complaint REPORTS SEIZURES Allergies Coded Allergies: No Known Allergies (12/13/20) Review of Nursing Notes Rev avail, and agree Pt reports no significant: Past medical history, Past surgical history, Family history Smoking status: Smoking status for patients 13 years old or old er: Unknown,if ever smoked Physical Exam Vital Signs Vital Signs First Documented: Result Date Time Pulse Ox 100 12/13 1949 B/P 154/84 12/13 1949 B/P Mean 107 12/13 1949 O2 Delivery Room air 12/13 1949 Temp 36.7 12/13 1949 Pulse 102 12/13 1949 Resp 16 12/13 1949 Last Documented: Result Date Time Pulse Ox 100 12/14 729 B/P 121/86 12/14 729 B/P Mean 97 12/14 729 O2 Delivery Room air 12/14 729 Temp 36.4 12/14 729 Pulse 81 12/14 0630 Resp 17 12/14 0730 Review of Vital Signs Reviewed Focused PE General/Const General/Const Awake, Alert MS Head Head Normocephalic Eyes Eyes PERRL, EOMI, No photophobia Ears/Nose/Throat Ears/Nose/Throat Atraumatic, Airway patent, Pha rynx NL Mouth Mucous membranes dry. MS Neck Neck Supple, No meningismus, Full range of heena on, No swelling, Non-tender Resp/Chest Respiratory/Chest Breath sounds NL, Breath soun ds = bilat, No respiratory distress, No rales, No rhonchi, No wheezing Cardiovascular Cardiovascular Heart rate NL, Regular rhythm, H eart sounds NL, Peripheral circulation NL Abdomen/GI Abdomen/GI Soft, Non-tender, No guarding, No re bound MS Upper Extrem Upper Extremity/MS Atraumatic, Inspection NL, N o swelling, Non-tender MS Lower Extrem Lower Ext/Pelvis/MS Inspection NL, No swelling, Non-tender, No erythema, No deformity, Neurologic intact, Vascular intact, N o edema Skin Skin Color NL, Warm, Dry, Intact, Turgor NL Neurologic Neurologic Oriented X3, Speech NL, No m otor deficits, No sensory deficits, CN II - XII intact, Reflexes equal bilat, Cerebella r NL, Memory NL, Gait NL Psychiatric Psychiatric Affect NL, Mood NL, Not homicidal, No hallucinations, Cognitive function NL, Judgment/insight NL, Thought conten t NL Interpretation Diagnostics Lab Results Interpretation Results Laboratory Tests 12/13/20 2005: [Embedded Image Not Available] Laboratory Tests: 12/134 2004 2004 Chemistry Sodium (136 - 145 mmol/L) 134 L Potassium (3.5 - 5.1 mmol/L) 4.2 Chloride (98 - 107 mmol/L) 103.0 Carbon Dioxide (21 - 32 mmol/L) 23.0 Anion Gap (10 - 20) 12.2 BUN (7 - 18 mg/dL) 16 Creatinine (0.7 - 1.3 mg/dL) 0.80 Glomerular Filtr Rate (>=60 mL/min) > 60 BUN/Creatinine Ratio (10 - 20) 19.3 Glucose (74 - 106 mg/dL) 101 Calcium (8.5 - 10.1 mg/dL) 8.8 Total Bilirubin (0.0 - 1.0 mg/dL) 0.40 Direct Bilirubin (0.0 - 0.20 mg/dL) < 0.10 AST (15 - 37 IUnit/L) 32 ALT (12 - 78 IUnit/L) 47 Total Alk Phosphatase (45 - 117 IUnit/L) 65 Troponin I (0 - 0.045 ng/mL) < 0.006 Total Protein (6.4 - 8.2 gram/dL) 7.0 Albumin (3.4 - 5.0 g/dL) 4.0 Globulin (2.7 - 4.2 gram/dL) 3.0 Albumin/Globulin Ratio (0.75 - 1.50) 1.3 Hematology WBC (4.5 - 12.5 K/mm3) 11.5 RBC (4.0 - 5.8 mill/mm3) 4.43 Hgb (13.0 - 17.5 gram/dL) 13.6 Hct (42.0 - 52.0 %) 40.2 L MCV (80 - 98 fL) 90.7 MCH (27.0 - 33.0 picogram) 30.7 MCHC (33.0 - 36.0 gram/dL) 33.8 RDW (11.6 - 16.2 %) 13.9 Plt Count (150 - 450 K/mm3) 304 MPV (6.7 - 11.0 fL) 9.8 Serology SARS-CoV-2 Ag (Rapid) NEGATIVE Toxicology Salicylates (2.8 - 20.0 mg/dL) < 3.0 Urine Opiates Screen (<300 ng/mL) NEGATIVE Urine Methadone Screen (<300 ng/mL) NEGATIVE Acetaminophen (10 - 30 mcg/mL) < 10 L Urine Barbiturates (<200 ng/mL) NEGATIVE Ur Phencyclidine Scrn (<25 ng/mL) NEGATIVE Ur Amphetamines Screen (<1000 ng/mL) NEGATIVE U Benzodiazepines Scrn (<200 ng/mL) POSITIVE Urine Cocaine Screen (<300 ng/mL) NEGATIVE Urine Cannabinoids (<50 ng/mL) NEGATIVE Ethyl Alcohol (0.0 - 3.0 mg/dL) 25 H Urines Urine Color (YELLOW) Light-Yellow Urine Appearance (CLEAR) CLEAR Urine pH (5.0 - 8.0) 6.5 Ur Specific [place] (1.001 - 1.035) 1.014 Urine Protein (NEGATIVE mg/dL) NEGATIVE Urine Glucose (UA) (NEGATIVE mg/dL) NEGATIVE Urine Ketones (NEGATIVE mg/dL) NEGATIVE Urine Blood (NEGATIVE mg/dL) Negative Urine Nitrite (NEGATIVE) NEGATIVE Urine Bilirubin (NEGATIVE mg/dL) NEGATIVE Urine Urobilinogen (NEGATIVE mg/dL) Normal Ur Leukocyte Esterase (NEGATIVE Matt/uL) NEGATIV E Urine RBC (0 - 5 #/HPF) 0-2 Urine WBC (0 - 5 per HPF) 0-5 Ur Epithelial Cells (FEW per HPF) FEW Urine Bacteria (NONE #/HPF) NONE SEEN Urine Mucus (FEW #/LPF) FEW Recent Impressions: CAT SCAN - CT HEAD/BRAIN W/O CONT 12/13 2009 Report Impression - Status: SIGNED Entered: 12/13/20202054 IMPRESSION: Negative CT head. Location: RR Impression By: [email or web address] - Tano Gauthier MD Point of Care Testing Pulse Oximetry Pulse Ox % 98 On: Room air Interpretation Interpreted by me, Pulse oximetr y normal Time 1956 Re-Evaluation MDM ED Course Medication(s) Ordered Medication(s) Ordered: Antihistamine Drugs Sig/Darius Start time Last Medication Dose Route Stop Time Status Admin Diphenhydramine HCl 25 MG Q6H PRN PRN 12/13 213 0 DCD PO 01/12 2129 Autonomic Drugs Sig/Draius Start time Last Medication Dose Route Stop Time Status Admin Albuterol/Ipratropium 3 ML RTQ4H PRN PRN 12/130 DCDr INH 01/12 2129 Nicotine 21 MG Q24H PRN PRN 12/13 2129 DCD TRANSDERM 01/12 2129 Central Nervous System Agents Sig/Darius Start time Last Medication Dose Route Stop Time Status Admin Acetaminophen 650 MG Q6H PRN PRN 12/13 2129 DCD PO 01/12 2129 Chlordiazepoxide HCl 50 MG Q6H PRN PRN 12/13 2 130 DCD PO 01/12 2129 Ibuprofen 600 MG Q6H PRN PRN 12/13 2129 DCD PO 01/12 2129 Lorazepam 2 MG Q6H PRN PRN 12/13 2129 DCD PO 01/12 2129 Quetiapine Fumarate 50 MG Q4H PRN PRN 12/13 213 0 DCD PO 01/12 2129 Trazodone HCl 50 MG BEDTIME PRN PRN 12/13 2129 DCDr PO 01/12 2129 Levetiracetam 100 ML X1ED STA 12/13 1953 DC IV 12/13 Lorazepam 1 MG X1ED STA 12/13 1952 DC 12/13 IV 12/13 Electrolytic, Caloric, And Shayna Sig/Darius Start time Last Medication Dose Route Stop Time Status Admin Potassium Chloride 40 MEQ Q12H PRN PRN 12/13 21 30 DCD PO 01/12 2129 Sodium Chloride 1,000 ML X1ED STA 12/13 1952 DC 12/13 IV 12/13 Gastrointestinal Drugs Sig/Darius Start time Last Medication Dose Route Stop Time Status Admin Docusate Sodium 100 MG Q12H PRN PRN 12/13 2129 DCD PO 01/12 2129 Famotidine 20 MG Q12H PRN PRN 12/13 2129 DCD PO 01/12 2129 Ondansetron Base 4 MG Q6H PRN PRN 12/[address] PO 01/12 2129 Patient Discharge Departure Vital Signs/Condition Vital Signs First Documented: Result Date Time Pulse Ox 100 12/13 1949 B/P 154/84 12/13 1949 B/P Mean 107 12/13 1949 O2 Delivery Room air 12/13 1949 Temp 36.7 12/13 1949 Pulse 102 12/13 1949 Resp 16 12/13 1949 Last Documented: Result Date Time Pulse Ox 100 12/14 729 B/P 121/86 12/14 729 B/P Mean 97 12/14 729 O2 Delivery Room air 12/14 729 Temp 36.4 12/14 729 Pulse 81 12/14 729 Resp 17 12/14 729 All vital signs available at the time of this en try have been reviewed. Clinical Impression Clinical Impression Primary Impression: Depression Secondary Impressions: POSSIBLE SEIZURE Pt/Provider Handoff Care Transferred at 8 (to Dr. Mari) Katarina Mari 12/14/20 0518: Re-Evaluation MDM Re-Evaluation/Progress #1 Text/Dict Note Patient to be signed over to Dr. Rhodes at 7 AM. I will continue to monitor the patient until that time. Time of Re-Eval 517 Darinel Rhodes 12/14/20 0802: Re-Evaluation MDM Free Text MDM Notes Free Text MDM Notes Patient left AMA without my involvement Electronically Signed by Shaggy Morrow MD on 11/30 01/20 at 2238 at 0519 Electronically Signed by Darinel Rhodes MD on 12/14 at 0803 RPT #:[id number] END OF REPORT 2020-12-[address] [facility] 16:41:00-00:00 [facility] ([facility]) EMERGENCY PROVIDER REPORT REPORT#:[id number] REPORT STATUS: Signed DATE:12/06/20 TIME: 1640 PATIENT: TEJ GUADALUPE UNIT #: [id number] ROOM/BED: AGE: 35 SEX: M PCP PHYS: No Primary or Family P hysician SERVICE AUTHOR: Orion Martell MD * ALL edits or amendments must be made on the el ectronic/computer document * HPI-General Illness Free Text HPI Notes Free Text HPI Notes Presents to the ED complaining of "shaki ness". Patient states he has a history of Xanax abuse for which he entered the rehab facility. Patient states he came to the ED requesting "some Xanax to stop shakes. Informed patient that we do not give Xanax for that reason. Patient states t hat if he is not going to get Xanax he is going to leave the hospital. General Initial Greet Date/Time 12/06/20 1402 Presentation Chief Complaint __ (request for xanax) Review of Systems ROS Statements Unable to Obtain ROS Uncooperative Past Medical History - Adult Stated Complaint SENT FROM [facility] FOR XANAX DET OX Allergies Coded Allergies: No Known Allergies (12/06/20) Smoking status: Smoking status for patients 13 years old or old er: Current every day smoker Physical Exam Vital Signs Vital Signs First Documented: Result Date Time Pulse Ox 97 12/06 1402 B/P 129/87 03/ 1402 B/P Mean 101 03/ 1402 O2 Delivery Room air 03 1402 Temp 36.6 03/ 1402 Pulse 93 03/ 1402 Resp 16 03 1402 Last Documented: Result Date Time Pulse Ox 97 12/06 1402 B/P 129/87 03/ 1402 B/P Mean 101 03/ 1402 O2 Delivery Room air / 1402 Temp 36.6 03/ 1402 Pulse 93 03/ 1402 Resp 16 03/ 1402 Review of Vital Signs Reviewed Basic Physical Exam Basic PE pt refused Re-Evaluation MDM Free Text MDM Notes Free Text MDM Notes Patient choosing to leave before examination cou ld be complete Patient Discharge Departure Vital Signs/Condition Vital Signs First Documented: Result Date Time Pulse Ox 97 12/06 1402 B/P 129/87 03/ 1402 B/P Mean 101 03/07 1402 O2 Delivery Room air 03/ 1402 Temp 36.6 03/07 1402 Pulse 93 03/07 1402 Resp 16 03/07 1402 Last Documented: Result Date Time Pulse Ox 97 12/06 1402 B/P 129/87 03/ 1402 B/P Mean 101 03/07 1402 O2 Delivery Room air 03/ 1402 Temp 36.6 03/07 1402 Pulse 93 03/07 1402 Resp 16 03/ 1402 All vital signs available at the time of this en try have been reviewed. Clinical Impression Clinical Impression Primary Impression: Benzodiazepine abuse Disposition Decision Other Against Medical Advice Yes Electronically Signed by Orion Martell MD on 06/22 at 1528 RPT #:[id number] END OF REPORT
[2023-05-12 01:28] LABS: Absolute Lymphocytes (CBC) 1.4 K/uL (0.7-4.9); Lymphocytes % 18.4 % (15.3-44.8); MCV 93.3 fL (80-100); MPV 8.3 fL (7.6-11.3); Platelets 218 thou/uL (152-406)
[2023-05-12 01:32] LABS: Protime INR 1.03
[2023-05-12 01:44] LABS: Barbiturates NEGATIVE (NEGATIVE); Benzodiazepines NEGATIVE (NEGATIVE); Cocaine NEGATIVE (NEGATIVE); METHAMPHETAM NEGATIVE (NEGATIVE); Methadone NEGATIVE (NEGATIVE); Opiates NEGATIVE (NEGATIVE); Phencyclidine NEGATIVE (NEGATIVE); THC Cannibis POSITIVE (NEGATIVE)
[2023-05-12 01:44] LABS: ALT/SGPT 31 U/L (16-61); AST/SGOT 22 U/L (15-37); Albumin 3.9 g/dL (3.4-5.0); Alkaline Phosphatase 64 U/L (45-117); BUN Blood Urea Nitrogen 14 mg/dL (7-18); Bicarbonate 23 mEq/L (21-32); Bilirubin Direct 0.1 mg/dL (0-0.2); Bilirubin Indirect, Calculated 0.5 mg/dL (0.2-0.8); Bilirubin Total 0.6 mg/dL (0.2-1.0); Glomerular Filtration Rate 88 ml/min (=/>90); Glucose Level 113 mg/dL (74-106); Potassium 3.7 mEq/L (3.5-5.1); Protein, Total 7.5 g/dL (6.4-8.2); Sodium Level 137 mEq/L (136-145)
[2023-05-12] MEDS ORDERED: NA CHLORIDE 0.9% 1,000 ML ONE (01:56)
--- NOTE | 2023-05-12 02:25 | ER ---
Nurse's Notes [facility] Name: Anthony Au Age: 38 yrs Sex: Male : 1985 Arrival Date: 05/12/2023 Time: 00:37 Bed 6 Private MD: Diagnosis: Altered mental status, unspecified;Abuse of other non-psychoactive substances-SOMA;Adverse effect of benzodiazepines Presentation: 05/12 00:49 Chief complaint: EMS states: EMS states pt was found sitting on the ground confused ll3 with slurred speech, pt reports taking 2 somas tonight, EMS states pts BGL was 82 upon arrival. Coronavirus screen: Vaccine status: Patient reports receiving the 2nd dose of the covid vaccine. At this time, the client does not indicate any symptoms associated with coronavirus-19. Ebola Screen: No symptoms or risks identified at this time. Initial Sepsis Screen: Does the patient meet any 2 criteria? HR > 90 bpm. Yes Does the patient have a suspected source of infection? No. Patient's initial sepsis screen is negative. Risk Assessment: Do you want to hurt yourself or someone else? Patient reports no desire to harm self or others. Onset of symptoms was May 12, 2023. Care prior to arrival: Medication(s) given: Normal saline infusion, 400 ml 15 G oral glucose IV initiated. 20 GA, in the right hand, Glucose check: 82. Activity prior to arrival: confused. 00:49 Method Of Arrival: EMS: [facility] 00:49 Acuity: MARKY 3 ll3 Triage Assessment: 00:53 General: Appears uncomfortable, Behavior is cooperative, flat, listless. Pain: ll3 Complains of pain in back. Neuro: Level of Consciousness is awake, obeys commands, lethargic, Oriented to person, place, time, situation, Speech is slurred. Neuro: Reports Taking 2 somas tonight. Derm: Skin is pink, warm \T\ dry. Historical: - Allergies: 00:53 No Known Allergies; ll3 - PMHx: 00:53 Anxiety; Asthma; Bipolar disorder; Depression; detox seizures; scalp laceration repair.;ll3 - PSHx: 00:53 I\T\D; ll3 - Immunization history:: Client reports receiving the 2nd dose of the Covid vaccine. - Social history:: Smoking status: Patient reports the use of cigarette tobacco products, smokes one pack cigarettes per day. - Family history:: not pertinent. Screenin:55 Abuse screen: Denies threats or abuse. Denies injuries from another. Nutritional ll3 screening: No deficits noted. Tuberculosis screening: No symptoms or risk factors identified. 02:41 [facility] ED Fall Risk Assessment (Adult) History of falling in the last 3 months, ll3 including since admission No falls in past 3 months (0 pts) Confusion or Disorientation No (0 pts) Intoxicated or Sedated Yes (3 pts) Impaired Gait No (0 pts) Mobility Assist Device Used No (0 pt) Altered Elimination No (0 pt) Score/Fall Risk Level 3 or more points = High Risk Oriented to surroundings, Maintained a safe environment, Educated pt \T\ family on fall prevention, incl call for assistance when getting out of bed. Assessment: 00:53 General: See triage assessment. ll3 Vital Signs: 00:49 BP 114 / 79; Pulse 93; Resp 17; Temp 97.9(O); Pulse Ox 95% on R/A; Weight 81.65 kg (R); ll3 Height 5 ft. 8 in. (R); 02:40 BP 107 / 70; Pulse 72; Resp 16; Pulse Ox 97% on R/A; ll3 00:49 Body Mass Index 27.37 (81.65 kg, 172.72 cm) ll3 ED Course: 00:41 Patient arrived in ED. kl 00:42 River Kang MD is Attending Physician. irvin 00:53 Triage completed. ll3 00:53 Arm band placed on Patient placed in an exam room, on a stretcher, on property assessment monitor, ll3 on pulse oximetry. 00:56 Patient has correct armband on for positive identification. Placed in gown. Bed in low ll3 position. Call light in reach. Side rails up X 1. 01:08 Dylan Sanchez RN is Primary Nurse. rv 02:25 Jesse Pierre MD is Referral Physician. irvin 02:40 No provider procedures requiring assistance completed. IV discontinued, intact, ll3 bleeding controlled, No redness/swelling at site. Pressure dressing applied. Administered Medications: 01:43 Drug: NS 0.9% IV 1000 ml Route: IV; Rate: 1 bolus; Site: right hand; rv 02:42 Follow up: Response: No adverse reaction; IV Status: Completed infusion; IV Intake: ll3 1000ml Medication: 02:41 VIS not applicable for this client. ll3 Intake: 02:42 IV: 1000ml; Total: 1000ml. ll3 Outcome: 02:25 Discharge ordered by . irvin 02:40 Discharged to home ambulatory, with family. ll3 02:40 Condition: stable 02:40 Discharge instructions given to patient, Instructed on discharge instructions, follow up and referral plans. Demonstrated understanding of instructions, follow-up care. 02:43 Patient left the ED. ll3 Signatures: Kelly Donahue, RN RN River Cortes MD MD cha Vicente, Ronaldo, RN Jamshid Angel RN RN 3
--- NOTE | 2023-05-12 02:25 | EDPHYS ---
Physician Documentation [facility] [place] Name: Anthony Au Age: 38 yrs Sex: Male : 1985 Arrival Date: 05/12/2023 Time: 00:37 Bed 6 Private MD: ED Physician River Kang HPI: 05/12 00:48 This 38 yrs old Male presents to ER via Unassigned with complaints of AMS, irvin SOMA, [place]. 00:48 The patient presents with confusion, decreased mental status, trouble concentrating. irvin Onset: The symptoms/episode began/occurred just prior to arrival. Possible causes: drug use, benzodiazepines, alcohol. Associated signs and symptoms: Pertinent positives: confusion. Current symptoms: In the emergency department the patient's symptoms have improved, mildly. Patient's baseline: Neuro: alert and fully oriented. It is unknown whether or not the patient has had similar symptoms in the past. Historical: - Allergies: 00:53 No Known Allergies; ll3 - PMHx: 00:53 Anxiety; Asthma; Bipolar disorder; Depression; detox seizures; scalp laceration repair.;ll3 - PSHx: 00:53 I\T\D; ll3 - Immunization history:: Client reports receiving the 2nd dose of the Covid vaccine. - Social history:: Smoking status: Patient reports the use of cigarette tobacco products, smokes one pack cigarettes per day. - Family history:: not pertinent. ROS: 00:49 Constitutional: Negative for fever, chills, and weight loss, Eyes: Negative for injury, irvin pain, redness, and discharge, ENT: Negative for injury, pain, and discharge, Neck: Negative for injury, pain, and swelling, Cardiovascular: Negative for chest pain, palpitations, and edema, Respiratory: Negative for shortness of breath, cough, wheezing, and pleuritic chest pain, Abdomen/GI: Negative for abdominal pain, nausea, vomiting, diarrhea, and constipation, Back: Negative for injury and pain, : Negative for injury, bleeding, discharge, and swelling, MS/Extremity: Negative for injury and deformity, Skin: Negative for injury, rash, and discoloration, Psych: Negative for depression, anxiety, suicide ideation, homicidal ideation, and hallucinations, Allergy/Immunology: Negative for hives, rash, and allergies, Endocrine: Negative for neck swelling, polydipsia, polyuria, polyphagia, and marked weight changes, Hematologic/Lymphatic: Negative for swollen nodes, abnormal bleeding, and unusual bruising. 00:49 Neuro: Positive for altered mental status, speech changes, weakness. Exam: 00:49 Constitutional: This is a well developed, well nourished patient who is awake, alert, irvin and in no acute distress. Head/Face: Normocephalic, atraumatic. Eyes: Pupils equal round and reactive to light, extra-ocular motions intact. Lids and lashes normal. Conjunctiva and sclera are non-icteric and not injected. Cornea within normal limits. Periorbital areas with no swelling, redness, or edema. ENT: Nares patent. No nasal discharge, no septal abnormalities noted. Tympanic membranes are normal and external auditory canals are clear. Oropharynx with no redness, swelling, or masses, exudates, or evidence of obstruction, uvula midline. Mucous membranes moist. Neck: Trachea midline, no thyromegaly or masses palpated, and no cervical lymphadenopathy. Supple, full range of motion without nuchal rigidity, or vertebral point tenderness. No Meningismus. Chest/axilla: Normal chest wall appearance and motion. Nontender with no deformity. No lesions are appreciated. Cardiovascular: Regular rate and rhythm with a normal S1 and S2. No gallops, murmurs, or rubs. Normal PMI, no JVD. No pulse deficits. Respiratory: Lungs have equal breath sounds bilaterally, clear to auscultation and percussion. No rales, rhonchi or wheezes noted. No increased work of breathing, no retractions or nasal flaring. Abdomen/GI: Soft, non-tender, with normal bowel sounds. No distension or tympany. No guarding or rebound. No evidence of tenderness throughout. Back: No spinal tenderness. No costovertebral tenderness. Full range of motion. Male : Normal genitalia with no discharge or lesions. Skin: Warm, dry with normal turgor. Normal color with no rashes, no lesions, and no evidence of cellulitis. MS/ Extremity: Pulses equal, no cyanosis. Neurovascular intact. Full, normal range of motion. Psych: Awake, alert, with orientation to person, place and time. Behavior, mood, and affect are within normal limits. 00:49 Neuro: Orientation: is normal, appropriate for stated age, no acute changes, Mentation: slow to respond, Memory: is normal, appropriate for stated age, no acute changes, Cranial nerves: Cerebellar function: Motor: Sensation: Gait: not tested. Deep tendon reflexes are seizure activity, Abnormal movements: there are no abnormal movements. 01:32 ECG was reviewed by the Attending Physician. [facility] Vital Signs: 00:49 BP 114 / 79; Pulse 93; Resp 17; Temp 97.9(O); Pulse Ox 95% on R/A; Weight 81.65 kg (R); ll3 Height 5 ft. 8 in. (R); 02:40 BP 107 / 70; Pulse 72; Resp 16; Pulse Ox 97% on R/A; ll3 00:49 Body Mass Index 27.37 (81.65 kg, 172.72 cm) ll3 MDM: 00:42 Patient medically screened. irvin 00:51 Differential Diagnosis: electrolyte abnormality, alcohol intoxication, hypoglycemia, irvin volume depletion. Data reviewed: vital signs, nurses notes, lab test result(s), EKG. Consideration of Admission/Observation Escalation of care including admission/observation considered. I considered the following discharge prescriptions or medication management in the emergency department Medications were administered in the Emergency Department. See MAR. Independent interpretation of the following test(s) in the Emergency Department EKG: See my EKG interpretation above. Test considered but Not performed: CT: NO CT HEAD. Care significantly affected by the following chronic conditions: PAIN AND PAIN MEDS. Counseling: I had a detailed discussion with the patient and/or guardian regarding: the historical points, exam findings, and any diagnostic results supporting the discharge/admit diagnosis, lab results, the need for outpatient follow up. 05/12 00:42 Order name: Acetaminophen; Complete Time: 02:24 [facility] 05/12 00:42 Order name: Basic Metabolic Panel; Complete Time: : [facility] 05/12 00:42 Order name: CBC with Diff; Complete Time: [facility] 05/12 00:42 Order name: ETOH Level; Complete Time: [facility] 05/12 00:42 Order name: Hepatic Function; Complete Time: 02:24 [facility] 05/12 00:42 Order name: PT-INR; Complete Time: [facility] 05/12 00:42 Order name: Ptt, Activated; Complete Time: [facility] 08/11 00:42 Order name: Salicylate; Complete Time: 01:54 [facility] 05/12 00:42 Order name: Urine Drug Screen; Complete Time: 01:54 [facility] 05/12 00:42 Order name: EKG; Complete Time: 00:43 [facility] 05/12 00:42 Order name: EKG - Nurse/Tech; Complete Time: 01:08 [facility] 05/12 00:42 Order name: IV Saline Lock; Complete Time: :08 [facility] 05/12 00:42 Order name: Labs collected and sent; Complete Time: : [facility] 05/12 00:42 Order name: Suicide Screening ([place]); Complete Time: :08 [facility] EC:32 Rate is 84 beats/min. Rhythm is regular. QRS [place] is Normal. IA interval is normal. QRS irvin interval is normal. QT interval is normal. No Q waves. T waves are Normal. No ST changes noted. Clinical impression: NSR w/ Non-specific ST/T Changes and No evidence of ischemia. Interpreted by me. Reviewed by me. Administered Medications: Drug: NS 0.9% IV 1000 ml Route: IV; Rate: 1 bolus; Site: right hand; rv 02:42 Follow up: Response: No adverse reaction; IV Status: Completed infusion; IV Intake: ll3 1000ml Disposition Summary: 05/12/23 02:25 Discharge Ordered Location: Home irvin Problem: new irvin Symptoms: have improved irvin Condition: Stable irvin Diagnosis - Altered mental status, unspecified irvin - Abuse of other non-psychoactive substances - SOMA irvin - Adverse effect of benzodiazepines irvin Followup: irvin - With: Private Physician - When: 2 - 3 days - Reason: Recheck today's complaints, Continuance of care, Re-evaluation by your physician Followup: irvin - With: - When: 2 - 3 days - Reason: Recheck today's complaints, Re-evaluation by your physician Discharge Instructions: - Discharge Summary Sheet irvin - Finding Treatment for Addiction irvin - Confusion irvin - Substance Use Disorder irvin - Supporting Someone With an Addiction irvin - Substance Use Disorder and Mental Illness irvin - Supporting Someone With Substance Use Disorder irvin Forms: - Medication Reconciliation Form irvin - Thank You Letter irvin - Antibiotic Education irvin - Prescription Opioid Use irvin - Patient Portal Instructions irvin Signatures: Dispatcher [employer] River Elizabeth MD MD cha Vicente, Ronaldo, RN RN rv Loubet, Lynsea, RN RN ll3
[2023-05-12 02:54] VITALS: BP 107/70; TEMP 97.9; O2SAT 97
--- NOTE | 2023-05-14 15:34 | EKG ---
Test Date: 2023-05-12 Test Time: 01:30:08 Home Care Physical Therapist: RIVAS MEASUREMENT RESULTS: Intervals: Rate: 84 [place]: 144 QRSD: 92 QT: 378 QTc: 446 [place]: P: 75 OH: 144 QRS: 96 T: 66 INTERPRETIVE STATEMENTS: Normal sinus rhythm Rightward axis Borderline ECG Compared to ECG 06/06/2022 18:19:41 Right-axis deviation now present Electronically Signed On 05-14-23 15:31:05 CDT by Claudio Betancur
== END 2023-05-12 02:43 | disposition home or self-care (01) ==
LOC: ER 00:37
DX: R41.82 Altered mental status, unspecified (principal); F19.10 Other psychoactive substance abuse, uncomplicated; T42.4X5A Adverse effect of benzodiazepines, initial encounter
CPT/HCPCS: 36415; 80048; 80076; 80143; 80179; 80307; 82077; 85025; 85610; 85730; 93005; 96360; 99284; J7030

== ENCOUNTER 2023-07-20 10:33 | Emergency (ER) | payer SELFPAY ==
--- OUTSIDE RECORDS SUMMARY | 2023-07-20 10:39 | XMS REPORT | Continuity of Care Document ---
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 daily buprenorphi 2021-0 202- No Opioid 1{film} QD Place 1 El ne-naloxone 05-23 dependence Film under Health (SUBOXONE) 00:00: 00:00 with tongue 4-1 mg film 00 :00 withdrawal daily nicotine 2021-0 2021- No 1{patch 1 Patch, H arris (NICODERM 05-22 } [facility] CQ) 21 16:10: 22:39 l, ONCE, 1 mg/24 hr 1 00 :34 dose, On Patch 05/22/22 at 1610, STAT acetaminoph 2021-0 202- No 1000mg 1,000 mg Gal[facility]os en 05-22 (12.3 Health (TYLENOL) 13:29: 16:14 mg/kg), tablet 00 :00 Oral, 1,000 mg ONCE, 1 dose, On 05/22/22 at 1329, STAT FLUoxetine 2021-0 Yes Bipolar 20mg QD Take 1 Chahal rris (PROZAC) 20 8- affective capsule by [facility] mg capsule 00:00: disorder, mouth 00 currently daily depressed, moderate FLUoxetine 2021-0 Yes Bipolar 20mg QD Take 1 Chahal rris (PROZAC) 20 8-20 affective capsule by Health mg capsule 00:00: disorder, mouth 00 currently daily depressed, moderate FLUoxetine 2021-0 Yes [id number] 20mg QD Take 1 [facility] (PROZAC) 20 8-20 capsule by He alth mg capsule 00:00: mouth 00 daily FLUoxetine 2021-0 Yes [id number] 20mg QD Take 1 [facility] (PROZAC) 20 8-20 capsule by He alth mg capsule 00:00: mouth 00 daily FLUoxetine 2021-0 Yes [id number] 20mg QD Take 1 [facility] (PROZAC) 20 8-20 capsule by He alth mg capsule 00:00: mouth 00 daily FLUoxetine 2021-0 Yes [id number] 20mg QD Take 1 [facility] (PROZAC) 20 8-20 capsule by He alth mg capsule 00:00: mouth 00 daily FLUoxetine 2021-0 Yes Bipolar 20mg QD Take 1 Chahal rris (PROZAC) 20 8-20 affective capsule by Health mg capsule 00:00: disorder, mouth 00 currently daily depressed, moderate FLUoxetine 2021-0 Yes Bipolar 20mg QD Take 1 Chahal rris (PROZAC) 20 8-20 affective capsule by Health mg capsule 00:00: disorder, mouth 00 currently daily depressed, moderate FLUoxetine 2021-0 Yes Bipolar 20mg QD Take 1 Chahal rris (PROZAC) 20 8-20 affective capsule by Health mg capsule 00:00: disorder, mouth 00 currently daily depressed, moderate clonazePAM 2021-0 2021- No Benzodiazep .5mg Q.5D Take 1 El (KLONOPIN) 05-21 ine tablet by [facility] 0.5 mg 00:00: 00:00 withdrawal mouth 2 tablet 00 :00 without (two) complicatio times a n day buprenorphi 2021-2021- No Opioid 1{film} QD Place 1 El ne-naloxone 05-21 dependence Film under Health (SUBOXONE) 00:00: 00:00 with tongue 8-2 mg film 00 :00 withdrawal daily clonazePAM 2021-0 2021- No Benzodiazep .5mg Q.5D Take 1 El (KLONOPIN) 05-21 ine tablet by [facility] 0.5 mg 00:00: 00:00 withdrawal mouth 2 tablet 00 :00 without (two) complicatio times a n day buprenorphi 2021- No Opioid 1{film} QD Place 1 El ne-naloxone 05-21 dependence Film under Health (SUBOXONE) 00:00: 00:00 with tongue 8-2 mg film 00 :00 withdrawal daily clonazePAM 2021-0 2021- No [id number] .5mg Q.5D Take 1 [facility] (KLONOPIN) 05-21 tablet by [facility]a l[facility] 0.5 mg 00:00: 00:00 mouth 2 tablet 00 :00 (two) times a day buprenorphi 2021-0 2021- No [id number] 1{film} QD Place 1 El ne-naloxone 05-21 Film under H ealth (SUBOXONE) 00:00: 00:00 tongue 8-2 mg film 00 :00 daily clonazePAM 2021-2021- No [id number] .5mg Q.5D Take 1 [facility] (KLONOPIN) 05-21 tablet by Hea lth 0.5 mg 00:00: 00:00 mouth 2 tablet 00 :00 (two) times a day buprenorphi 2021-2021- No [id number] 1{film} QD Place 1 El ne-naloxone 05-21 Film under H ealth (SUBOXONE) 00:00: 00:00 tongue 8-2 mg film 00 :00 daily clonazePAM 2021-2021- No Benzodiazep .5mg Q.5D Take 1 El (KLONOPIN) 05-21 ine tablet by Hea lth 0.5 mg 00:00: 00:00 withdrawal mouth 2 tablet 00 :00 without (two) complicatio times a n day buprenorphi 2021- No Opioid 1{film} QD Place 1 El ne-naloxone 05-21 dependence Film under Health (SUBOXONE) 00:00: 00:00 with tongue 8-2 mg film 00 :00 withdrawal daily OLANZapine 2021- No Bipolar 5mg Take 1 H arris (ZYPREXA) 5 05-20 affective tablet by Health mg tablet 00:00: 00:00 disorder, mouth 00 :00 currently every depressed, evening moderate OLANZapine 2021- No Bipolar 5mg Take 1 H arris (ZYPREXA) 5 05-20 affective tablet by Health mg tablet 00:00: 00:00 disorder, mouth 00 :00 currently every depressed, evening moderate OLANZapine 2021-0 2021- No [id number] 5mg Take 1 [facility] (ZYPREXA) 5 05-20 tablet by alth mg tablet 00:00: 00:00 mouth 00 :00 every evening OLANZapine 2021-0 2021- No [id number] 5mg Take 1 Gal[facility] (ZYPREXA) 5 05-20 tablet by alth mg tablet 00:00: 00:00 mouth 00 :00 every evening OLANZapine 2021-2021- No Bipolar 5mg Take 1 H arris (ZYPREXA) 5 05-20 affective tablet by Health mg tablet 00:00: 00:00 disorder, mouth 00 :00 currently every depressed, evening moderate gabapentin No 300mg 300 mg Marcelino ris (NEURONTIN) 05-19 (3.68 Health capsule 300 18:16: 21:49 mg/kg), mg 00 :40 Oral, 3 TIMES DAILY, First dose on Lea 05/19/22 at 1816, Until Discontinu ed, STAT cephALEXin Right wrist 500mg Take 1 Gallegos (KEFLEX) 05-19 pain capsule by [facility] 500 mg 00:00: 00:00 mouth 4 capsule 00 :00 times daily for 10 days sulfamethox 2021- No Right wrist 1{tbl} Take 1 Gallegos azole-trime 05-19 pain tablet by alth thoprim 00:00: 00:00 mouth (BACTRIM 00 :00 every 12 DS) 800-160 hours for mg tablet 10 days cephALEXin Right wrist 500mg Take 1 Gallegos (KEFLEX) 05-19 pain capsule by [facility] th 500 mg 00:00: 00:00 mouth 4 capsule 00 :00 times daily for 10 days sulfamethox 2021-2021- No Right wrist 1{tbl} Take 1 Gal[facility] azole-trime 05-19 pain tablet by alth thoprim 00:00: 00:00 mouth (BACTRIM 00 :00 every 12 DS) 800-160 hours for mg tablet 10 days cephALEXin 2021- No Right wrist 500mg Take 1 El (KEFLEX) 05-19 pain capsule by [facility] 500 mg 00:00: 00:00 mouth 4 capsule 00 :00 times daily for 10 days sulfamethox 2021- No Right wrist 1{tbl} Take 1 El azole-trime 05-19 pain tablet by alth thoprim 00:00: 00:00 mouth (BACTRIM 00 :00 every 12 DS) 800-160 hours for mg tablet 10 days cephALEXin 2021- No [id number] 500mg Take 1 El (KEFLEX) 05-19 9100 capsule by [facility] 500 mg 00:00: 00:00 mouth 4 capsule 00 :00 times daily for 10 days sulfamethox 2021-2021- No [id number] 1{tbl} Take 1 El azole-trime 05-19 9100 tablet by alth thoprim 00:00: 00:00 mouth (BACTRIM 00 :00 every 12 DS) 800-160 hours for mg tablet 10 days cephALEXin 2021- No [id number] 500mg Take 1 El (KEFLEX) 05-19 9100 capsule by [facility] 500 mg 00:00: 00:00 mouth 4 capsule 00 :00 times daily for 10 days sulfamethox 2021-2021- No [id number] 1{tbl} Take 1 El azole-trime 05-19 9100 tablet by alth thoprim 00:00: 00:00 mouth (BACTRIM 00 :00 every 12 DS) 800-160 hours for mg tablet 10 days clonazePAM 2021- No Benzodiazep .25mg Q.5D Take 0.5 El (KLONOPIN) 05-18 08-20 ine tablets by [facility] alth 0.5 mg 00:00: 00:00 withdrawal mouth 2 tablet 00 :00 without times complicatio daily n clonazePAM 2021- No Benzodiazep .25mg Q.5D Take 0.5 Gal[facility]os (KLONOPIN) 05-18 08-20 ine tablets by [facility] 0.5 mg 00:00: 00:00 withdrawal mouth 2 tablet 00 :00 without times complicatio daily n clonazePAM 2021- No [id number] .25mg Q.5D Take 0.5 Gal[facility] (KLONOPIN) 05-18- tablets by He alth 0.5 mg 00:00: 00:00 mouth 2 [...] 00 :00 currently daily depressed, moderate FLUoxetine 2021- No Bipolar 30mg QD Take 3 H arris (PROZAC) 10 05-18 affective capsules Health mg capsule 00:00: 00:00 disorder, by mouth 00 :00 currently daily depressed, moderate FLUoxetine 2021-2021- No [id number] 30mg QD Take 3 Gallegos (PROZAC) 10 05-18 capsules Hea lth mg capsule 00:00: 00:00 by mouth 00 :00 daily FLUoxetine 2021-2021- No Bipolar 30mg QD Take [...] capsule 12:51: 00:00 daily 54 :00 sulfamethox 2022-0 Yes Multiple 1{tbl} Take 1 Gal[facility] azole-trime 8[facility] mouth (BACTRIM 00 every 12 DS) 800-160 hours mg tablet gabapentin 2021-0 Yes Bipolar 300mg Take 1 H arris (NEURONTIN) 8-16 affective capsule by [facility] 300 mg 00:00: disorder, mouth 3 capsule 00 currently times depressed, daily moderate sulfamethox 2021-0 Yes Multiple 1{tbl} Take 1 [facility] azole-trime 8-16 [facility] mouth (BACTRIM 00 every 12 DS) 800-160 hours mg tablet gabapentin 0 Yes Bipolar 300mg Take 1 H arris (NEURONTIN) 8-16 affective capsule by [facility] 300 mg 00:00: disorder, mouth 3 capsule 00 currently times depressed, daily moderate sulfamethox 2021-0 Yes [id number] 1{tbl} Take 1 Gal[place] azole-trime 8-16 tablet by [facility] thoprim 00:00: mouth (BACTRIM 00 every 12 DS) 800-160 hours mg tablet gabapentin 2021-0 Yes [id number] 300mg Take 1 Gallegos (NEURONTIN) 8-16 capsule by alth 300 mg 00:00: mouth 3 capsule 00 times daily sulfamethox 2021-0 Yes [id number] 1{tbl} Take 1 Gal[place] azole-trime 8-16 tablet by [facility] thoprim 00:00: mouth (BACTRIM 00 every 12 DS) 800-160 hours mg tablet gabapentin 2021-0 Yes [id number] 300mg Take 1 Gallegos (NEURONTIN) 8-16 capsule by alth 300 mg 00:00: mouth 3 capsule 00 times daily sulfamethox 2021-0 Yes [id number] 1{tbl} Take 1 [facility] (BACTRIM 00 every 12 DS) 800-160 hours mg tablet gabapentin 2021-0 Yes [id number] 300mg Take 1 Gallegos (NEURONTIN) 8-16 capsule by alth 300 mg 00:00: mouth 3 capsule 00 times daily sulfamethox 2021-0 Yes [id number] 1{tbl} Take 1 Gal[place] azole-trime 8-16 tablet by [facility] thoprim 00:00: mouth (BACTRIM 00 every 12 DS) 800-160 hours mg tablet gabapentin 2021-0 Yes [id number] 300mg Take 1 Gallegos (NEURONTIN) 8-16 capsule by [facility] 300 mg 00:00: mouth 3 capsule 00 times daily sulfamethox 2021-0 Yes Multiple 1{tbl} Take 1 Gal[place] azole-trime 8-16 open wounds tablet by [facility] thoprim 00:00: of wrist mouth (BACTRIM 00 every 12 DS) 800-160 hours mg tablet gabapentin 2021-0 Yes Bipolar 300mg Take 1 H arris (NEURONTIN) 8-16 affective capsule by [facility] 300 mg 00:00: disorder, mouth 3 capsule 00 currently times depressed, daily moderate sulfamethox 2021-0 Yes Multiple 1{tbl} Take 1 Gal[place]os azole-trime 8-16 open wounds tablet by [facility] thoprim 00:00: of wrist mouth (BACTRIM 00 every 12 DS) 800-160 hours mg tablet gabapentin 2021-0 Yes Bipolar 300mg Take 1 H arris (NEURONTIN) 8-16 affective capsule by [facility] 300 mg 00:00: disorder, mouth 3 capsule 00 currently times depressed, daily moderate sulfamethox 2021-0 Yes Multiple 1{tbl} Take 1 Agllegos azole-trime 8-16 open wounds tablet by [facility] thoprim 00:00: of wrist mouth (BACTRIM 00 every 12 DS) 800-160 hours mg tablet gabapentin 2021-0 Yes Bipolar 300mg Take 1 H arris (NEURONTIN) 8-16 affective capsule by [facility] 300 mg 00:00: disorder, mouth 3 capsule 00 currently times depressed, daily moderate cephALEXin 2021-0 2021- No Bipolar 500mg Take 1 Gallegos (KEFLEX) -05-25 affective capsule by [facility] 500 mg 00:00: 23:59 disorder, mouth 4 capsule 00 :00 currently times depressed, daily for moderate 7 days cephALEXin 2021-0 2021- No Bipolar 500mg Take 1 Gallegos (KEFLEX) -17 05- affective capsule by [facility] 500 mg 00:00: 23:59 disorder, mouth 4 capsule 00 :00 currently times depressed, daily for moderate 7 days cephALEXin 2-0 2021- No [id number] 500mg Take 1 Gallegos (KEFLEX) 05-17 capsule by [facility] 500 mg 00:00: 23:59 mouth 4 capsule 00 :00 times daily for 7 days cephALEXin 2021-2021- No [id number] 500mg Take 1 Gallegos (KEFLEX) 05-17 capsule by [facility] 500 mg 00:00: 23:59 mouth 4 capsule 00 :00 times daily for 7 days cephALEXin 2021-0 2021- No Bipolar 500mg Take 1 Gallegos (KEFLEX) 05-17 affective capsule by [facility] 500 mg 00:00: 23:59 disorder, mouth 4 capsule 00 :00 currently times depressed, daily for moderate 7 days OLANZapine 2021-0 2021- No Bipolar 10mg Q.5D Take 1 H arris (ZYPREXA) 05-17 affective tablet by [facility] 10 mg 00:00: 00:00 disorder, mouth 2 tablet 00 :00 currently (two) depressed, times a moderate day OLANZapine 2021-2021- No Bipolar 10mg Q.5D Take 1 H arris (ZYPREXA) 05-17 affective tablet by [facility] 10 mg 00:00: 00:00 disorder, mouth 2 tablet 00 :00 currently (two) depressed, times a moderate day OLANZapine 2021-2021- No [id number] 10mg Q.5D Take 1 Gallegos (ZYPREXA) 05-17 tablet by [facility] 10 mg 00:00: 00:00 mouth 2 tablet 00 :00 (two) times a day OLANZapine 2021-0 2021- No Bipolar 10mg Q.5D Take 1 H arris (ZYPREXA) 05-17 affective tablet by [facility] 10 mg 00:00: 00:00 disorder, mouth 2 tablet 00 :00 currently (two) depressed, times a moderate day sulfamethox 2021-2021- No Multiple 1{tbl} Take 1 [place] azole-trime 05-11 open wounds tablet by [facility] thoprim 00:00: 00:00 of wrist mouth (BACTRIM 00 :00 every 12 DS) 800-160 hours for mg tablet 14 days cephALEXin 2021-0 2021- No Multiple 500mg Take 1 Gallegos (KEFLEX) 05-11 open wounds capsule by [facility] 500 mg 00:00: 00:00 of wrist mouth 4 capsule 00 :00 times daily for 14 days sulfamethox 2021- No Multiple 1{tbl} Take 1 El azole-trime 8- 08-16 open wounds tablet by Health thoprim 00:00: 00:00 of wrist mouth (BACTRIM 00 :00 every 12 DS) 800-160 hours for mg tablet 14 days cephALEXin 2021- No Multiple 500mg Take 1 El (KEFLEX) 8- 08-16 open wounds capsule by [facility] 500 mg 00:00: 00:00 of wrist mouth 4 capsule 00 :00 times daily for 14 days sulfamethox 2021- No Multiple 1{tbl} Take 1 El azole-trime 8-07 09-16 open wounds tablet by [facility] thoprim 00:00: 00:00 of wrist mouth (BACTRIM 00 :00 every 12 DS) 800-160 hours for mg tablet 14 days cephALEXin 2021- No Multiple 500mg Take 1 El (KEFLEX) 8-07 09-16 open wounds capsule by [facility] 500 mg 00:00: 00:00 of wrist mouth 4 capsule 00 :00 times daily for 14 days nicotine Yes 1{patch 1 Patch, Un adam (NICODERM) 5 } Topical, ity o f 21 mg/24 hr 01:00: Administer [place] patch 1 00 over 24 Medical Patch Hours, [place] Q24H, First dose on [facility] 01/30/21 at 2000, Until Discontinu ed, Routine OLANZapine 2020- No 10mg 10 mg, Univ ers ZYDIS 01-30 Oral, ity of (ZyPREXA 23:15: 23:15 ONCE, 1 [place] ZYDIS) 00 :00 dose, [facility] Medical disintegrat 01/30/21 at [facility] ing tablet 1815, JONATHAN 10 mg NaCl 0.9% 2020- No 1000mL at 999 Uni vers (NS) bolus 01-30 mL/hr, ity of infusion 22:15: 23:27 1,000 mL, Natonio as 1,000 mL 00 :00 IV Medical Infusion, Alin ONCE, 1 dose, [facility] 01/30/21 at 1715, JONATHAN No known No Univers medications ity of [facility] Vital Signs Vital Name Observation Time Observation Value Comments Source Systolic blood 2022-06-06 18:12:17 130 mm[Hg] Univer sity of pressure [facility] Diastolic blood 2022-06-06 18:12:17 85 mm[Hg] Unive rsity of [facility] Heart rate 2022-06-06 18:12:17 88 /min Universi ty [facility] Body temperature 2022-06-06 18:12:17 37.22 Franci [facility] Respiratory rate 2022-06-06 18:12:17 18 /min [facility] Body height 2022-06-06 17:32:00 175.3 cm Universi ty [facility] Body weight 2022-06-06 17:32:00 97.523 kg Universi [facility] BMI 2022-06-06 17:32:00 31.75 [facility] Oxygen saturation in 2022-06-06 17:32:00 98 /min [facility] of Arterial blood by [facility] Pulse oximetry [place] Systolic blood 2022-06-03 15:00:00 122 mm[Hg] [facility] pressure Diastolic blood 2022-06-03 15:00:00 79 mm[Hg] [facility] pressure Heart rate 2022-06-03 15:00:00 95 /min [facility] Body temperature 2022-06-03 15:00:00 36.78 Franci [facility] Respiratory rate 2022-06-03 15:00:00 18 /min [facility] Oxygen saturation in 2022-06-03 15:00:00 96 /min [facility] Arterial blood by Pulse oximetry Body height 2022-05-24 07:27:00 172.7 cm [facility] Body weight 2022-05-24 07:27:00 81.194 kg [facility] 2022-05-24 07:27:00 27.22 kg/m2 [facility] Systolic blood 2022-06-03 15:00:00 122 mm[Hg] [facility] pressure Diastolic blood 2022-06-03 15:00:00 79 mm[Hg] [facility] pressure Heart rate 2022-06-03 15:00:00 95 /min [facility] Body temperature 2022-06-03 15:00:00 36.78 [facility] Respiratory rate 2022-06-03 15:00:00 18 /min [facility] Oxygen saturation in 2022-06-03 15:00:00 96 /min [facility] Arterial blood by Pulse oximetry Body height 2022-05-24 07:27:00 172.7 cm [facility] Body weight 2022-05-24 07:27:00 81.194 kg [facility] BMI 2022-05-24 07:27:00 27.22 kg/m2 [facility] Systolic blood 2022-05-22 16:42:00 132 mm[Hg] [facility] pressure Diastolic blood 2022-05-22 16:42:00 82 mm[Hg] [facility] pressure Heart rate 2022-05-22 16:42:00 83 /min [facility] Body temperature 2022-05-22 16:42:00 36.39 [facility] Respiratory rate 2022-05-22 16:42:00 17 /min [facility] Oxygen saturation in 2022-05-22 16:42:00 98 /min [facility] Arterial blood by Pulse oximetry Body height 2022-05-22 13:27:00 172.7 cm [facility] Body weight 2022-05-22 13:27:00 81.647 kg [facility] BMI 2022-05-22 13:27:00 27.37 kg/m2 [facility] Systolic blood 2022-05-19 19:46:00 136 mm[Hg] [facility] pressure Diastolic blood 2022-05-19 19:46:00 91 mm[Hg] [facility] pressure Heart rate 2022-05-19 19:46:00 101 /min [facility] Body temperature 2022-05-19 19:46:00 36.67 [facility] Respiratory rate 2022-05-19 19:46:00 20 /min [facility] Oxygen saturation in 2022-05-19 19:46:00 100 /min [facility] Arterial blood by Pulse oximetry Body height 2022-05-19 12:32:00 172.7 cm [facility] Body weight 2022-05-19 12:32:00 81.647 kg [facility] BMI 2022-05-19 12:32:00 27.37 kg/m2 [facility] Systolic blood 2022-05-19 19:46:00 136 mm[Hg] [facility] pressure Diastolic blood 2022-05-19 19:46:00 91 mm[Hg] [facility] pressure Heart rate 2022-05-19 19:46:00 101 /min [facility] Body temperature 2022-05-19 19:46:00 36.67 Franc[facility] Respiratory rate 2022-05-19 19:46:00 20 /min [facility] Oxygen saturation in 2022-05-19 19:46:00 100 /min [facility] Arterial blood by Pulse oximetry Body height 2022-05-19 12:32:00 172.7 cm [facility] Body weight 2022-05-19 12:32:00 81.647 kg [facility] BMI 2022-05-19 12:32:00 27.37 kg/m2 [facility] Systolic blood 2021-01-31 04:00:00 104 mm[Hg] Univer sity [facility] Diastolic blood 2021-01-31 04:00:00 70 mm[Hg] [facility] Heart rate 2021-01-31 04:00:00 59 /min [facility] Respiratory rate 2021-01-31 04:00:00 18 /min [facility] Oxygen saturation in 2021-01-31 04:00:00 99 /min University Arterial blood by [facility] Pulse oximetry Branch Body temperature 2021-01-30 21:51:00 37.22 Franci [facility] Body weight 2021-01-30 21:50:00 97.523 kg [facility] Systolic blood 2022-06-04 00:00:00 122 mm[Hg] [facility] pressure Diastolic blood 2022-06-04 00:00:00 87 mm[Hg] [facility] pressure Heart rate 2022-06-04 00:00:00 92 /min [facility] Body temperature 2022-06-04 00:00:00 36.89 [facility] Respiratory rate 2022-06-04 00:00:00 18 /min [facility] Body height 2022-06-04 00:00:00 172.7 cm [facility] Body weight 2022-06-04 00:00:00 83.915 kg [facility] BMI 2022-06-04 00:00:00 28.13 kg/m2 [facility] Oxygen saturation in 2022-06-04 00:00:00 97 /min [facility] Arterial blood by Pulse oximetry Systolic blood 2022-05-23 08:00:00 125 mm[Hg] [facility] pressure Diastolic blood 2022-05-23 08:00:00 79 mm[facility]Hg] [facility] Heart rate 2022-05-23 08:00:00 79 /min [facility] Body temperature 2022-05-23 08:00:00 36.83 Franci [facility] Respiratory rate 2022-05-23 08:00:00 20 /min [facility] Oxygen saturation in 2022-05-23 08:00:00 95 /min [facility] Arterial blood by Pulse oximetry Body height 2022-05-19 11:13:00 172.7 cm [facility] Body weight 2022-05-19 11:13:00 81.557 kg [facility] BMI 2022-05-19 11:13:00 27.34 kg/m2 [facility] Procedures Procedure Date / Time Performing Clinician Source Performed CONSENT/REFUSAL FOR 2022-06-06 17:25:33 Doctor Unassigned, No Un [facility] DIAGNOSIS AND TREATMENT Name Medical Branch BASIC METABOLIC PANEL 2022-06-02 03:57:00 Heath Lawson [facility] BASIC METABOLIC PANEL 2022-06-02 03:57:00 Heath Lawson [facility] Health AMIKACIN, TROUGH LEVEL 2022-05-31 21:13:00 Sil Soliz [facility] Health AMIKACIN, TROUGH LEVEL 2022-05-31 21:13:00 Sil Soliz [facility] WOUND/ABSCESS CULTURE 2022-05-31 08:53:00 Gabe Dunlap [facility] Health AND GRAM [employer]AIN [employer] STAIN AND CULTURE 2022-05-31 08:53:00 Gabe Dunlap [facility] ANAEROBE CULTURE 2022-05-31 08:53:00 Germán, [facility] FUNGUS STAIN AND CULTURE 2022-05-31 08:53:00 Germán, [facility] AFB STAIN AND CULTURE 2022-05-31 08:53:00 Germán Gabe [facility] ANAEROBE CULTURE 2022-05-31 08:53:00 Germán, [facility] FUNGUS STAIN AND CULTURE 2022-05-31 08:53:00 Germán, [facility] WOUND/ABSCESS CULTURE 2022-05-31 08:53:00 GermánGabe [facility] Health AND GRAM STAIN BASIC METABOLIC PANEL 2022-05-31 05:12:00 [facility] BASIC METABOLIC PANEL 2022-05-31 05:12:00 Lawson [facility] GLUCOSE POC 2022-05-29 08:04:00 Lupe Burch [facility] th GLUCOSE POC 2022-05-29 08:04:00 Lupe Burch [facility] CBC (WITHOUT 2022-05-29 04:33:00 LawsonHeath [facility] ealt DIFFERENTIAL) BASIC METABOLIC PANEL 2022-05-29 04:33:00 [facility] BASIC METABOLIC PANEL 2022-05-29 04:33:00 Lawson, [facility] CBC (WITHOUT 2022-05-29 04:33:00 LawsonIanHeath [facility] DIFFERENTIAL) GLUCOSE POC 2022-05-28 16:49:00 Lupe Burch [facility] th GLUCOSE POC 2022-05-28 16:49:00 Lupe Burch [facility] GLUCOSE POC 2022-05-28 11:46:00 MarcinLupe ruano [facility] GLUCOSE POC 2022-05-28 11:46:00 Lupe Burch [facility] th GLUCOSE POC 2022-05-28 08:24:00 MarcinLupe ruano [facility] th GLUCOSE POC 2022-05-28 08:24:00 Lupe Burch [facility] th CBC (WITHOUT 2022-05-28 04:36:00 LawsonIanHeath H [facility] ealth DIFFERENTIAL) BASIC METABOLIC PANEL 2022-05-28 04:36:00 Lawson Heath [facility] BASIC METABOLIC PANEL 2022-05-28 04:36:00 Lawson, Heath [facility] CBC (WITHOUT 2022-05-28 04:36:00 LawsonIanHeathmarilynn [facility] ealth DIFFERENTIAL) CBC (WITHOUT 2022-05-27 05:10:00 LawsonIanHeath Jose [facility] ealth DIFFERENTIAL) BASIC METABOLIC PANEL 2022-05-27 05:10:00 Lawson [facility] AMIKACIN, RANDOM LEVEL 2022-05-27 05:10:00 MarcinLupe Ashley is Health BASIC METABOLIC PANEL 2022-05-27 05:10:00 Lawson [facility] CBC (WITHOUT 2022-05-27 05:10:00 Lawson, Heathmarilynn [facility] ealth DIFFERENTIAL) AMIKACIN, RANDOM LEVEL 2022-05-27 05:10:00 MarcinLupe ruano is Health AMIKACIN, RANDOM LEVEL 2022-05-26 23:35:00 MarcinLupe is Health AMIKACIN, RANDOM LEVEL 2022-05-26 23:35:00 MarcinLupe [facility] AMIKACIN, TROUGH LEVEL 2022-05-26 05:53:00 Arash Obando s Health CBC (WITHOUT 2022-05-26 05:53:00 Lawson, Heathmarilynn [facility] ealth DIFFERENTIAL) BASIC METABOLIC PANEL 2022-05-26 05:53:00 Lawson [facility] BASIC METABOLIC PANEL 2022-05-26 05:53:00 Lawson Heath [facility] CBC (WITHOUT 2022-05-26 05:53:00 Lawson, Heath Jose [facility] e[facility] DIFFERENTIAL) AMIKACIN, TROUGH LEVEL 2022-05-26 05:53:00 Arash Obando s Health CONSULT CLINICAL CASE 2022-05-25 14:55:14 Myles [facility] MANAGEMENT (RN/SW) CONSULT CLINICAL CASE 2022-05-25 14:55:14 Myles [facility] MANAGEMENT (RN/SW) CBC/DIFF 2022-05-25 08:24:00 Heath Lawson H ealth BASIC METABOLIC PANEL 2022-05-25 08:24:00 Heath [facility] CBC 2022-05-25 08:24:00 Heath Lawson [facility] BASIC METABOLIC PANEL 2022-05-25 08:24:00 Heath Lawson Chahal rris [facility] CBC/DIFF 2022-05-25 08:24:00 Heath Lawson [facility] ealt CBC 2022-05-25 08:24:00 Heath Lawson [facility] ANAEROBE CULTURE 2022-05-24 20:47:00 Germán [facility] WOUND/ABSCESS CULTURE 2022-05-24 20:47:00 [facility] ANAEROBE CULTURE 2022-05-24 20:47:00 Germán, [facility] WOUND/ABSCESS CULTURE 2022-05-24 20:47:00 Gabe Dunlap [facility] Health AND GRAM STAIN AFB STAIN AND CULTURE 2022-05-24 15:44:00 [facility] FUNGUS STAIN [facility] CULTURE 2022-05-24 15:44:00 Germán, [facility] AFB STAIN AND CULTURE 2022-05-24 15:44:00 [facility] CULTURE 2022-05-24 15:44:00 Germán [facility] INFUSION PUMP 2022-05-24 04:24:23 Lupe Burch [facility] INFUSION PUMP 2022-05-24 04:24:23 Lupe Burch [facility] CBC/DIFF 2022-05-24 04:22:00 Yasmany Gonzalez [facility] CBC 2022-05-24 04:22:00 Yasmany Gonzalez [facility] CBC/DIFF 2022-05-24 04:22:00 Yasmany Gonzalez [facility] CBC 2022-05-24 04:22:00 Yasmany Gonzalez [facility] HIV AG/AB COMBO 2022-05-23 18:44:00 Alissa Avitia [facility] DIAGNOSTIC/SYMPTOMATIC HEPATITIS PANEL 2022-05-23 18:44:00 Alissa Avitia [facility] HEPATITIS PANEL 2022-05-23 18:44:00 Alissa Avitia [facility] HIV AG/AB COMBO 2022-05-23 18:44:00 Alissa Avitia [facility] DIAGNOSTIC/SYMPTOMATIC SARS-COV-2, FLU A/B, RSV 2022-05-23 15:41:00 Orlando Donald [facility] CORONAVIRUS, COVID-19, 2022-05-23 15:41:00 Odilon [facility] YOKASTA CORONAVIRUS, COVID-19, 2022-05-23 15:41:00 Odilon [facility] YOKASTA SARS-COV-2, FLU A/B, RSV 2022-05-23 15:41:00 Orlando Donald [facility] BASIC METABOLIC PANEL 2022-05-23 11:25:00 Prakash-Charisma Moniquea A [facility] CBC/DIFF 2022-05-23 11:25:00 Al-Ozzie Moniqueafa A [facility] CBC 2022-05-23 11:25:00 Prakash-Ozzie Moniqueafa A [facility] SED RATE 2022-05-23 11:25:00 Orlando Donald [facility] h C-REACTIVE PROT 2022-05-23 11:25:00 Orlando Donald [facility] h BASIC METABOLIC PANEL 2022-05-23 11:25:00 Prakash-Charisma Moniquea A [facility] CBC/DIFF 2022-05-23 11:25:00 Prakash-Ozzie Moniqueafa A [facility] C-REACTIVE PROT 2022-05-23 11:25:00 [facility] 2022-05-23 11:25:00 Orlando Donald [facility] h CBC 2022-05-23 11:25:00 Charisma Mckinneya A [facility] LIMITED BEDSIDE 2022-05-23 11:08:27 Unknown, Provider [facility] ULTRASOUND AFFILIATE HC POC URINE 2022-05-19 21:30:00 Jennifer Alcala [facility] DRUG SCREEN AFFILIATE HC POC URINE 2022-05-19 21:30:00 [facility] OF ABSCESS 2022-05-19 19:03:24 Chris Marrufo Healt h I&D OF ABSCESS 2022-05-19 19:03:24 Chris Marrufo [facility] WOUND/ABSCESS CULTURE 2022-05-19 18:54:00 RiccokarynChris Ella [facility] AND GRAM STAIN WOUND/ABSCESS CULTURE 2022-05-19 18:54:00 Chris Marrufo [facility] AND GRAM STAIN XRAY FOREARM 2 VIEWS MIN 2022-05-19 17:04:37 Naomi Wells [facility] Health XRAY FOREARM 2 VIEWS MIN 2022-05-19 17:04:37 Naomi Wells [facility] CBC/DIFF 2022-05-19 14:29:00 Naomi Wells Healt h BASIC METABOLIC PANEL 2022-05-19 14:29:00 Naomi Wells [facility] LACTIC ACID 2022-05-19 14:29:00 Naomi Wells Healt h CBC 2022-05-19 14:29:00 Naomi Wells Healt h SED RATE 2022-05-19 14:29:00 Naomi Wells Healt h C-REACTIVE PROT 2022-05-19 14:29:00 Naomi Wells Healt h BASIC METABOLIC PANEL 2022-05-19 14:29:00 Naomi Wells [facility] CBC/DIFF 2022-05-19 14:29:00 Naomi Wells Healt h C-REACTIVE PROT 2022-05-19 14:29:00 [facility] 14:29:00 Naomi Wells Healt h SED RATE 2022-05-19 14:29:00 Naomi Wells [facility] CBC 2022-05-19 14:29:00 Naomi Wells [facility] AFFILIATE POC URINE 2022-05-19 11:15:00 [facility] DRUG SCREEN AFFILIATE HC POC URINE 2022-05-19 11:15:00 [facility] DRUG SCREEN POC COVID-19 2022-05-17 17:50:00 Trish Kerlinejayshree [facility] AFFILIATE HC POC URINE 2022-05-12 17:47:00 Rebel Case [facility] DRUG SCREEN AFFILIATE HC POC URINE 2022-05-12 17:47:00 Rebel Case [facility] DRUG SCREEN POC COVID-19 2022-05-11 23:56:00 Rebel Case ealth XRAY WRIST 3 VIEWS MIN 2022-05-11 17:04:00 Hanh Rodriguez [facility] CBC/DIFF 2022-05-11 16:20:00 Hanh Rodriguez alth BASIC METABOLIC PANEL 2022-05-11 16:20:00 Hanh Rodriguez [facility] HIV AG/AB COMBO ROUTINE 2022-05-11 16:20:00 Hanh Rodriguez [facility] SCREENING CBC 2022-05-11 16:20:00 Hanh Rodriguez alth URINE DRUG (IMMUNOASSAY) 2021-01-30 22:04:00 Shy Martin [facility] DRUG [facility] nc SCREEN HEPATIC FUNCTION PANEL 2021-01-30 22:03:00 [id number] (ALB,T.PRO,BILI [facility] Branch T,BU/BC,ALT,AST,ALK PHOS) BASIC METABOLIC PANEL 2021-01-30 22:03:00 Shy Martin [facility] versity [facility] (NA, K, CL, CO2, Medical Branch GLUCOSE, BUN, CREATININE, CA) SALICYLATE 2021-01-30 22:03:00 Shy Martin [facility] ETHANOL 2021-01-30 22:03:00 Shy Martin [facility] CBC WITH DIFF 2021-01-30 22:03:00 Shy Martin [facility] URINALYSIS 2021-01-30 22:02:00 Shy Martin [facility] COVID-19 (ID NOW RAPID 2021-01-30 22:02:00 Shy Martin [facility] TESTING) Medical Branch NOTICE OF PRIVACY 2021-01-30 21:37:21 Doctor Unassigned, [facility] CONSENT/REFUSAL FOR 2021-01-30 21:37:00 Doctor Unassigned, No [facility]REATMENT Name Medical [facility] Plan of Care Planned Activity Planned Date Details Comments Source Future Scheduled Test 2023-07-02 IMM Influenza Seasonal [facility] 00:00:00 (>/= 19 yrs) [code = IMM Influenza Seasonal (>/= 19 yrs)] Future Scheduled Test 2023-07-02 IMM Influenza Seasonal [facility] 00:00:00 (>/= 19 yrs) [code = IMM Influenza Seasonal (>/= 19 yrs)] Future Scheduled Test 2023-06-02 IMM Influenza Seasonal [facility] 00:00:00 (>/= 19 yrs) [code = IMM Influenza Seasonal (>/= 19 yrs)] Future Scheduled Test 2022-07-02 IMM Influenza Seasonal [facility] 00:00:00 (>/= 19 yrs) [code = IMM Influenza Seasonal (>/= 19 yrs)] Future Scheduled Test 2022-07-02 IMM Influenza Seasonal [facility] 00:00:00 (>/= 19 yrs) [code = IMM Influenza Seasonal (>/= 19 yrs)] Future Scheduled Test 2022-07-02 IMM Influenza Seasonal [facility] 00:00:00 (>/= 19 yrs) [code = IMM Influenza Seasonal (>/= 19 yrs)] Future Scheduled Test 1992 Imm Pneumococcal 0-64 [facility] 00:00:00 (1 - PCV) [code = Imm Pneumococcal 0-64 (1 - PCV)] Future Scheduled Test 1992 Imm Pneumococcal 0-64 [facility] 00:00:00 (1 - PCV) [code = Imm Pneumococcal 0-64 (1 - PCV)] Future Scheduled Test 1992 Imm Pneumococcal 0-64 [facility] 00:00:00 (1 - PCV) [code = Imm Pneumococcal 0-64 (1 - PCV)] Future Scheduled Test 1992 Imm Pneumococcal 0-64 [facility] 00:00:00 (1 - PCV) [code = Imm Pneumococcal 0-64 (1 - PCV)] Future Scheduled Test 1992 Imm Pneumococcal 0-64 [facility] 00:00:00 (1 - PCV) [code = Imm Pneumococcal 0-64 (1 - PCV)] Future Scheduled Test 1992 Imm Pneumococcal 0-64 [facility] 00:00:00 (1 - PCV) [code = Imm Pneumococcal 0-64 (1 - PCV)] Future Scheduled Test 1986 COVID-19 Vaccine (#1) [facility] 00:00:00 [code = COVID-19 Vaccine (#1)] Future Scheduled Test 1986 COVID-19 Vaccine (#1) [facility] 00:00:00 [code = COVID-19 Vaccine (#1)] Future Scheduled Test 1986 COVID-19 Vaccine (#1) [facility] 00:00:00 [code = COVID-19 Vaccine (#1)] Future Scheduled Test 1986 COVID-19 Vaccine (#1) [facility] 00:00:00 [code = COVID-19 Vaccine (#1)] Future Scheduled Test 1986 COVID-19 Vaccine (#1) [facility] 00:00:00 [code = COVID-19 Vaccine (#1)] Future Scheduled Test 1986 COVID-19 Vaccine (#1) [facility] 00:00:00 [code = COVID-19 Vaccine (#1)] Future Scheduled Test 1986 Fluoride Varnish [code [facility] 00:00:00 = Fluoride Varnish] Future Scheduled Test 1986 Fluoride Varnish [code [facility] 00:00:00 = Fluoride Varnish] Encounters Start End Encounter Admission Attending Care Care Encounter Source Date/Time Date/Time Type Type Clinicians Facility Department ID 2022-06-15 Outpatient [facility] [id number] [place] 12:36:45 [id number] [facility] 2022-06-14 Emergency HFD HFD [id number] SAMANTHA - 12:01:29 [place] [facility] 2022-06-06 Outpatient [facility] [id number] [place] 23:18:34 [id number] [facility] 2022-06-06 Outpatient [facility] [id number] [place] 23:16:04 [id number] [facility] 2022-04-06 Outpatient [facility] [id number] [place] 05:42:38 [id number] [facility] 2020-12-14 Inpatient [facility] [id number] [facility] 08:08:[address] [place] [address] 2020-12-13 Inpatient [facility] [id number] [facility] 19:49:00 20 [facility] 2020-12-06 Inpatient [facility] [id number] [facility] 14:30:44 66 [facility] 2022-07-27 2022-07-27 Emergency E KENNY VAZQUEZ [facility] [id number] [facility] 08:49:00 12:49:00 BRY 2022-06-24 2022-06-24 Office Mary FLOR [id number] [facility] 08:00:00 08:30:00 Visit , Fanta GONZALES [id number] Bobby [facility] .[id number] 2022-06-20 2022-06-20 Outpatient [facility] [id number] [facility] 00:00:00 00:00:00 [facility] 2022-06-14 2022-06-17 Emergency E MIGEL MEDINA MHNE [id number] MHNE 18:10:00 00:38:00 DANIEL 2022-06-14 2022-06-14 Emergency E MIGEL BUTT MHNE [id number] MHNE 10:48:00 15:20:00 SITA 2022-06-06 2022-06-06 [facility] [id number] Univers 12:34:00 13:23:[address] [facility] 2022-06-06 2022-06-06 [facility] [id number] Univers 12:34:00 13:23:00 Daniel [id number] [facility] [id number] [facility] [id number] [address] 2022-06-03 2022-06-04 Emergency [facility] [id number] [facility] 00:00:00 22:29:00 [facility] 2022-06-03 2022-06-04 Emergency JACK SANTOS [id number] [facility] 00:00:00 22:29:00 GENERAL [id number] [facility] .[id number] 5260-09-02 2022-06-03 Outpatient [facility] [id number] [place] 23:37:47 23:59:00 Health 2022-06-03 2022-06-03 Outpatient [facility] [id number] [place] 21:28:26 23:36:00 [facility] 2022-05-23 2022-06-03 Hospital Jose F Reyes JACK SANTOS [id number] [place] 13:09:00 18:30:00 Encounter MarcinLupe GENERAL [id number] [facility] .[id number] 2343-08-29 2022-05-30 Inpatient [facility] [id number] [place] 16:04:37 16:04:39 [facility] 2022-05-23 2022-05-23 [facility] [id number] [place] 13:09:00 13:09:00 [facility] 2022-05-22 2022-05-22 Emergency MariyaJACK [id number] [place] 19:04:00 20:39:00 [facility] [id number] [facility] .[id number] 7934-08-18 2022-05-19 Emergency 1 MARISABEL [facility] [id number] [place] 14:06:00 19:49:00 [facility] 2022-05-19 2022-05-19 Emergency JACK Petit [id number] [place] 14:06:00 19:49:00 [facility] [id number] [facility] .[id number] 2551-08-18 2022-05-19 Emergency [facility] [id number] [place] 16:50:11 17:04:43 [facility] 2022-05-18 2022-05-19 Inpatient [facility] [id number] [place] 10:13:00 10:30:00 [facility] 2022-05-11 2022-05-18 [facility] [id number] [place] 22:33:18 09:43:00 [facility] 2022-05-11 2022-05-11 Emergency Marisabel [facility] [id number] [place] 19:53:00 21:53:00 [facility] 2022-05-11 2022-05-11 Emergency Marisabel, [facility] [id number] [place] 19:53:00 21:53:00 [facility] 2022-05-11 2022-05-11 Emergency [facility] [id number] [place] 16:54:18 17:05:03 [facility] 2022-05-11 2022-05-11 Emergency 1 [facility] [id number] [place] 16:05:00 16:05:00 [facility] 2021-01-30 2021-01-30 Emergency [facility] [id number] Univers 16:48:00 23:59:00 Shy Morelos 350.1.13.10 ity [facility] 4.2.7.2.686 [facility] [id number] [address] 2021-01-30 2021-01-30 Emergency [facility] ERT [id number] Univers 16:48:00 16:48:00 SHY manrique [facility] 2021-01-30 2021-01-30 Orders Doctor JOSEPH [id number] Univers 00:00:00 00:00:00 Only Unassigned, ESTEFANY 350.1.13.10 ity of Jud [facility] [id number] [place] [id number] 2020-03-03 2020-03-03 Emergency X [facility] ERT [id number] Univers 09:37:00 09:37:00 [facility] Test Description Test Time Test [...] value: No acid fast bacilli isolate [facility] [id number] 11:04:16 Test Item Value Reference Range Interpretation Comments AFB Culture (test code No acid fast bacilli = 543-9) isolated in 6 weeks AFB Stain (test code = No acid fast bacilli 676-7) seen TRACY (test code = TRACY) Reference value: No acid fast bacilli isolated [facility] [id number] 11:04:16 Test Item Value Reference Range Interpretation Comments AFB Culture (test code No acid fast bacilli = 543-9) isolated in 6 weeks AFB Stain (test code = No acid fast bacilli 676-7) seen TRACY (test code = TRACY) Reference value: No acid fast bacilli isolated [facility] [id number] 21:02:46 Test Item Value Reference Range Interpretation Comments AFB Culture (test code No acid fast bacilli = 543-9) isolated in 6 weeks AFB Stain (test code = No acid fast bacilli 676-7) seen TRACY (test code = TRACY) Reference value: No acid fast bacilli isolated [facility] [id number] 21:02:45 Test Item Value Reference Range Interpretation Comments AFB Culture (test code No acid fast bacilli = 543-9) isolated in 6 weeks AFB Stain (test code = No acid fast bacilli 676-7) seen TRACY (test code = TRACY) Reference value: No acid fast bacilli isolated [facility] [id number] 20:02:40 Test Item Value Reference Range Interpretation Comments AFB Culture (test code No acid fast bacilli = 543-9) isolated in 6 weeks AFB Stain (test code = No acid fast bacilli 676-7) seen TRACY (test code = TRACY) Reference value: No acid fast bacilli isolated [facility] Stain & [id number] 19:03:24 Test Item Value Reference Range Interpretation Comments Fungus Culture (test No fungus isolated in 4 code = 580-1) weeks Fungus Stain (test No fungal elements seen code = 658-5) TRACY (test code = TRACY) Reference value: No fungus isolated [facility] [id number] 19:03:24 Test Item Value Reference Range Interpretation Comments Fungus Culture (test No fungus isolated in 4 code = 580-1) weeks Fungus Stain (test No fungal elements seen code = 658-5) TRACY (test code = TRACY) Reference value: No fungus isolated [facility] St[facility] & [id number] 19:03:24 Test Item Value Reference Range Interpretation Comments Fungus Culture (test No fungus isolated in 4 code = 580-1) weeks Fungus Stain (test No fungal elements seen code = 658-5) TRACY (test code = TRACY) Reference value: No fungus isolated [facility] St[facility] & [id number] 05:04:44 Test Item Value Reference Range Interpretation Comments Fungus Culture (test No fungus isolated in 4 code = 580-1) weeks Fungus Stain (test No fungal elements seen code = 658-5) TRACY (test code = TRACY) Reference value: No fungus isolated [facility] Stain & [id number] 05:04:43 Test Item Value Reference Range Interpretation Comments Fungus Culture (test No fungus isolated in 4 code = 580-1) weeks Fungus Stain (test No fungal elements seen code = 658-5) TRACY (test code = TRACY) Reference value: No fungus isolated [facility] [id number] 04:04:04 Test Item Value Reference Range Interpretation Comments Fungus Culture (test No fungus isolated in 4 code = 580-1) weeks Fungus Stain (test No fungal elements seen code = 658-5) TRACY (test code = TRACY) Reference value: No fungus isolated formerly [facility] [id number] 06:33:06 Test Item Value Reference Range Interpretation Comments Anaerobe Culture (test No anaerobes isolated code = 635-3) in 5 days TRACY (test code = TRACY) Reference value: No anaerobes isolated formerly [facility] [id number] 06:33:06 Test Item Value Reference Range Interpretation Comments Anaerobe Culture (test No anaerobes isolated code = 635-3) in 5 days TRACY (test code = TRACY) Reference value: No anaerobes isolated formerly [facility] [id number] 06:33:06 Test Item Value Reference Range Interpretation Comments Anaerobe Culture (test No anaerobes isolated code = 635-3) in 5 days TRACY (test code = TRACY) Reference value: No anaerobes isolated formerly [facility] [id number] 06:33:06 Test Item Value Reference Range Interpretation Comments Anaerobe Culture (test No anaerobes isolated code = 635-3) in 5 days TRACY (test code = TRACY) Reference value: No anaerobes isolated [facility]ound[facility]Abscess Culture & Gram [id number] 08:20:27 Test Item Value Reference Range Interpretation [...] the reference value is considered "No growth". [facility]ound/Abscess Culture & Gram [id number] 08:20:27 Test Item Value Reference Range Interpretation [...] the reference value is considered "No growth". [facility]ound[facility]Abscess Culture & Gram [id number] 08:20:27 Test Item Value Reference Range Interpretation [...] the reference value is considered "No growth". [facility]Wound/Abscess Culture & Gram [id number] 08:20:27 Test Item Value Reference Range Interpretation [...] the reference value is considered "No growth". [facility]ound[facility]Abscess Culture & Gram [id number] 10:37:20 Test Item Value Reference Range Interpretation Comments Wound Culture (test 1+ Acid fast AA REFER TO code = 6463-4) bacilli [id number] Gram Stain (test code No organisms seen = 664-3) TRACY (test code = TRACY) Reference value: Non-sterile sites may be contaminated with esperanza that is considered normal or otherwise not clinically relevant. As appropriate, normal results will indicate the presence or absence of such espernaza. Otherwise, the reference value is considered "No growth". Lab Interpretation Abnormal (test code = 33827-1) [facility] HealthBacteria Spec [id number] 10:37:20 Test Item Value Reference Range Interpretation Comments Bacteria Spec ACID-FAST AA 1+ Acid fast Cult (test code = BACILLUS bacilliREF ER TO 6463-4) [id number] Reference value: Non-sterile sites may be contaminated with esperanza that is considered normal or otherwise not clinically relevant. As appropriate, normal results will indicate the presence or absence ofsuch esperanza. Otherwise, the reference value is considered "No growth".HHSWound/Abscess Culture & Gram [id number] 10:36:38 Test Item Value Reference Range Interpretation Comments Wound Culture (test Acid fast bacilli AA REF ER TO code = 6463-4) [id number] Gram Stain (test code No organisms seen = 664-3) TRACY (test code = TRACY) Reference value: Non-sterile sites may be contaminated with esperanza that is considered normal or otherwise not clinically relevant. As appropriate, normal results will indicate the presence or absence of such esperanza. Otherwise, the reference value is considered "No growth". Lab Interpretation Abnormal (test code = 73953-0) [facility] HealthBacteria Spec [id number] 10:36:38 Test Item Value Reference Range Interpretation Comments Bacteria Spec ACID-FAST AA Acid fast Cult (test code = BACILLUS bacilliREF ER TO 6463-4) [id number] Reference value: Non-sterile sites may be contaminated with esperanza that is considered normal or otherwise not clinically relevant. As appropriate, normal results will indicate the presence or absence ofsuch esperanza. Otherwise, the reference value is considered "No growth".HHSWound/Abscess Culture & Gram [id number] 10:35:39 Test Item Value Reference Range Interpretation Comments Wound Culture (test Acid fast bacilli AA REF ER TO code = 6463-4) [id number] Gram Stain (test code No organisms seen = 664-3) TRACY (test code = TRACY) Reference value: Non-sterile sites may be contaminated with esperanza that is considered normal or otherwise not clinically relevant. As appropriate, normal results will indicate the presence or absence of such esperanza. Otherwise, the reference value is considered "No growth". Lab Interpretation Abnormal (test code = 20518-9) [facility] [id number] 10:35:39 Test Item Value Reference Range Interpretation Comments Bacteria Spec ACID-FAST AA Acid fast Cult (test code = BACILLUS bacilliREF ER TO 6463-4) [id number] Reference value: Non-sterile sites may be contaminated with esperanza that is considered normal or otherwise not clinically relevant. As appropriate, normal results will indicate the presence or absence ofsuch esperanza. Otherwise, the reference value is considered "No growth".[facility] [id number] 09:36:58 Test Item Value Reference Range Interpretation Comments Anaerobe Culture (test No anaerobes isolated code = 635-3) in 5 days TRACY (test code = TRACY) Reference value: No [facility]erobes isolated [facility] [id number] 09:36:11 Test Item Value Reference Range Interpretation Comments Anaerobe Culture (test No anaerobes isolated code = 635-3) in 5 days TRACY (test code = TRACY) Reference value: No anaerobes isolated 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) Lab Interpretation (test Abnormal code = 69637-7) [place] [facility] [employer] GLUCOSE POC docked [id number] 08:05:41 Test Item Value Reference Range Interpretation Comments Glucose POC (test code = 107 mg/dL 74-106 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 [id number]) Lab Interpretation (test Abnormal code = 06424-1) [place] [employer] GLUCOSE POC docked [id number] 08:05:41 Test Item Value Reference Range Interpretation Comments Glucose POC (test code = 107 mg/dL 74-106 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) Lab Interpretation (test Abnormal code = 85800-9) [facility] [id number] 08:05:41 Test Item Value Reference Range Interpretation Comments Glucose POC (test code = 107 mg/dL 74-106 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 [id number]) Lab Interpretation (test Abnormal code = 32247-3) [facility] [id number] 16:50:48 Test Item Value Reference Range Interpretation Comments Glucose POC (test code = 92041274) 107 mg/dL 74-106 H Lab Interpretation (test code = Abnormal 97076-6) [facility] [id number] 11:46:44 Test Item Value Reference Range Interpretation Comments Glucose POC (test code = 81788921) 89 mg/dL 74-106 Lab Interpretation (test code = Normal 95218-1) [facility] [id number] 08:25:07 Test Item Value Reference Range Interpretation Comments Glucose POC (test code = 40742801) 83 mg/dL 74-106 Lab Interpretation (test code = Normal 17170-3) [facility] [id number] 14:19:13 Test Item Value Reference Range Interpretation Comments Bacteria Spec Cult ACID-FAST BACILLUS AA 4+ Acid fast (test code = bacilli 6463-4) HHSHIV 1+2 Ab+HIV1 p24 Ag SerPl Ql [id number] 19:49:40 Test Item Value Reference Range Interpretation Comments HIV 1+2 Ab+HIV1 p24 Ag SerPl Ql [place] NEGATIVE Negative (test code = 09100-4) [facility]SC[facility]onavirus, CoVID-19, [id number] 16:40:22 Test Item Value Reference Interpretation Comments Range COVID-19 Not Detected Not Detected INTERPRETATION: (SARS-COV-2) (test No detect able code = 39660-9) levels of SARS-CoV-2 Coronavirus (COVID-19) were present [...] its performance characteristics were verified by the [facility] molecular diagnostics laboratory and is authorized for clinical diagnostic use. This laboratory is certified under the Clinical Laboratory Improvement Amendments (CLIA) as qualified to perform high complexity clinical laboratory testing. Lab Interpretation Normal (test code = 34307-1) [facility], [id number] 16:40:22 Test Item Value Reference Interpretation Comments Range COVID-19 Not Detected Not Detected INTERPRETATION: (SARS-COV-2) (test No detect able code = 41348-7) levels of SARS-CoV-2 Coronavirus (COVID-19) were present [...] its performance characteristics were verified by the [facility] molecular diagnostics laboratory and is authorized for clinical diagnostic use. This laboratory is certified under the Clinical Laboratory Improvement Amendments (CLIA) as qualified to perform high complexity clinical laboratory testing. Lab Interpretation Normal (test code = 85623-4) [facility], CoVID-19, [id number] 16:40:22 Test Item Value Reference Interpretation Comments Range COVID-19 Not Detected Not Detected INTERPRETATION: (SARS-COV-2) (test No detect able code = 84520-6) levels of SARS-CoV-2 Coronavirus (COVID-19) were present [...] its performance characteristics were verified by the [facility] molecular diagnostics laboratory and is authorized for clinical diagnostic use. This laboratory is certified under the Clinical Laboratory Improvement Amendments (CLIA) as qualified to perform high complexity clinical laboratory testing. Lab Interpretation Normal (test code = 32120-1) [facility], CoVID-19, [id number] 16:40:22 Test Item Value Reference Interpretation Comments Range COVID-19 Not Detected Not Detected INTERPRETATION: (SARS-COV-2) (test No detect able code = 91173-1) levels of SARS-CoV-2 Coronavirus (COVID-19) were present [...] its performance characteristics were verified by the [facility] molecular diagnostics laboratory and is authorized for clinical diagnostic use. This laboratory is certified under the Clinical Laboratory Improvement Amendments (CLIA) as qualified to perform high complexity clinical laboratory testing. Lab Interpretation Normal (test code = 74127-3) [facility] RNA Resp Ql [id number]+[id number] 16:40:22 Test Item Value Reference Range Interpretation Comments Hospitalized? (test No code = 75285-2) ICU? (test code = No 04674-6) Symptomatic as defined No by CDC? (test code = 21699-7) Employed in Unknown Healthcare? (test code = 33492-1) Resident in a Unknown congregate care setting (including nursing homes, residential care for people with intellectual and developmental disabilities, psychiatric treatment facilities, group homes, board and care homes, homeless care home, foster care or other): (test code = 10906-2) SARS-CoV-2 RNA Resp Ql NOT DETECTED Not Detected INTER PRETATION: No YOKASTA+probe (test code = detec table levels 52830-7) of SARS-CoV-2 Coronavirus (COVID-19) were present in [...] its performance characteristics were verified by the [facility] molecular diagnostics laboratory and is authorized for clinical diagnostic use. This laboratory is certified under the Clinical Laboratory Improvement Amendments (CLIA) as qualified to perform high complexity clinical laboratory testing.HHSHIV 1+2 Ab+HIV1 p24 Ag SerPl Ql [id number] 17:45:02 Test Item Value Reference Range Interpretation Comments HIV 1+2 Ab+HIV1 p24 Ag SerPl Ql [place] NEGATIVE Negative (test code = 18139-7) [id number] 23:16:25 Test Item Value Reference Range Interpretation Comments SALICYLATE (test code <10 mg/L = 4912339205) TRACY (test code = TRACY) Therapeutic Range: ? Analgesic and Antipyretic Use ? 20-100 mg/L ? ? Anti-Inflammatory Use ? 100-250 mg/L Toxic Range: ? Greater than 300 mg/L [facility]16[facility]15 Test Item Value Reference Range Interpretation Comments ALCOHOL (test code = <10 mg/dL 8947121242) TRACY (test code = TRACY) <10 Jaxxewyr80-820 Toxic>100 Depression of CROP GRAIN OR LIVESTOCK FARMER>400 Fatalities Reported [facility]EN[facility] 23:16:10 Test Item Value Reference Range Interpretation Comments ACETAMINOP (test code = <10.0 10.0-30.0 L 4014308694) TRACY (test code = TRACY) Toxic: Greater than 200 ug/mL @ 4 hour post ingestion or greater than 50 ug/mL @ 12 hour post ingestion Lab Interpretation (test Abnormal code = 63304-0) [facility] (ALB, T.PRO, BILI T, BU/BC, ALT, AST, ALK PHOS)2021-01-30 23:14:14 Test Item Value Reference Range Interpretation Comments TOTAL BILI (test code = 4083466806) 0.8 mg/dL 0.1-1.1 BILI UNCON (test code = 9034603770) 0.6 mg/dL 0.1-1.1 BILI CONJ (test code = 5774154779) 0.0 mg/dL 0.0-0.3 T PROTEIN (test code = 9267926267) 7.5 g/dL 6.3-8.2 ALBUMIN (test code = 1642659709) 4.8 g/dL 3.5-5.0 ALK PHOS (test code = 1624272010) 63 U/L 34-122 ALTv (test code = 1742-6) 33 U/L 5-50 AST(SGOT) (test code = 9128354793) 36 U/L 13-40 Lab Interpretation (test code = Normal 04611-7) [facility] Metabolic Panel (NA, K, CL, CO2, GLUCOSE, BUN, CREATININE, CA)2021-01-30 23:13:54 Test Item Value Reference Range Interpretation Comments NA (test code = 142 mmol/L 135-145 5101872760) K (test code = 4.3 mmol/L 3.5-5.0 3596631748) CL (test code = 105 mmol/L 98-108 7090682122) CO2 TOTAL (test code 25 mmol/L 23-31 = 0735389908) AGAP (test code = 2-16 8278016432) BUN (test code = 17 mg/dL 7-23 6254729341) GLUCOSE (test code = 86 mg/dL 70-110 7841015805) CREATININE (test code 0.85 mg/dL 0.60-1.25 = 1200897448) CALCIUM (test code = 9.9 mg/dL 8.6-10.6 7021019356) eGFR (test code = mL/min/1.73m2 1451532800) TRACY (test code = TRACY) Association of [...] or urine or abnormalities in imaging tests). [facility] (IMMUNOASSAY) - COMPREHENSIVE DRUG [id number] 23:05:57 Test Item Value Reference Range Interpretation Comments AMPHET (test code = Presumptive Positive Negative A 9143422396) CHACORTA U (test code = Negative Negative 0180983586) BENZO U (test code = Presumptive Positive Negative A 9968994902) Cocaine Metabolite (test Negative Negative code = 6468000193) METHADONE (test code = Negative Negative 9996526747) OPIATES (test code = Presumptive Positive Negative A 5501795644) PCP (test code = Negative Negative 2568702526) THC (test code = Presumptive Positive Negative A 8345667024) TRACY (test code = TRACY) Urine Drug [...] testing). Lab Interpretation (test Abnormal code = 80388-9) [facility]OVID[facility] (ID NOW RAPID TESTING)2021-01-30 22:34:55 Test Item Value Reference Range Interpretation Comments SARS-CoV-2 Rapid ID NOW Not Detected Not Detected (test code = 65587-0) TRACY (test code = TRACY) ID NOW COVID-19 Assay is an isothermal nucleic acid amplification test intended for the qualitative detection of nucleic acid from SARS-CoV-2 viral RNA in nasopharyngeal (WOMEN'S STUDIES PROFESSOR) specimens. It is used under Emergency Use [...] indicated. Lab Interpretation Normal (test code = 84342-9) [facility] HospitalUrinalysis2021-05-01 22:30:19 Test Item Value Reference Range Interpretation Comments APPEARANCE (test code = Clear Clear 3223973690) COLOR (test code = Yellow Yellow 4657108712) PH (test code = 4.8-8.0 1605919569) SP GRAVITY (test code = 1.003-1.030 5776314220) GLU U QUAL (test code = Normal Normal 0792424900) BLOOD (test code = Negative Negative 6459812303) KETONES (test code = Negative Negative 2656043439) PROTEIN (test code = Negative Negative 2887-8) UROBILIN (test code = 2.0 mg/dL Normal A 5895413455) BILIRUBIN (test code = Negative Negative 1857165739) NITRITE (test code = Negative Negative 7542913887) LEUK DIONE (test code = Negative Negative 9413340803) RBC/HPF (test code = See_Comment [Autom ated message] 7875007695) The system Fidus Writer generated this result transmit delroy reference range : 0 - 3 HPF. The refe rence range was not u sed to interpret th is result as normal/abnormal . WBC/HPF (test code = <1 See_Comment [Autom ated message] 7279903832) The system Fidus Writer generated this result transmit delroy reference range : 0 - 5 HPF. The refe rence range was not u sed to interpret th is result as normal/abnormal . BACTERIA (test code = Negative Negative 4002729268) SQ EPITH (test code = <1 HPF 4517951246) Lab Interpretation (test Abnormal code = 67456-2) [facility] with [id number] 22:19:35 Test Item Value Reference Range Interpretation Comments WBC (test code = See_Comment H [Automated 7190-2) message] The sy stem which generated this [...] RDW-SD (test code = 42.8 fL 38.5-51.6 56784-3) RDW-CV (test code = 13.3 % 12.1-15.4 788-0) PLT (test code = See_Comment H [Automated 777-3) message] The sy stem which generated this result transmitted reference range : 150 - 328 10*3/ ?L. The reference r maru was not used to interpret this result as normal/abnormal . MPV (test code = 9.9 fL 9.8-13.0 81960-4) NRBC/100 WBC (test See_Comment [Automat ed code = 8092933808) message] The system which generated this result transmitted reference range : 0.0 - 10.0 /100 WBCs. The refer ence range was not u sed to interpret th is result as normal/abnormal . NRBC x10^3 (test code <0.01 See_Comment [Auto mated = 5716889885) message] The s ystem which generated this result transmitted reference range : 10*3/?L. The reference range was not used to interpret this result as normal/abnormal . GRAN MAT (NEUT) % 79.2 % (test code = 770-8) IMM GRAN % (test code 0.50 % = 4488547031) LYMPH % (test code = 14.8 % 736-9) MONO % (test code = 4.9 % 5905-5) EOS % (test code = 0.2 % 713-8) BASO % (test code = 0.4 % 706-2) GRAN MAT x10^3(ANC) 9.77 10*3/uL 1.99-6.95 H (test code = 8572568587) IMM GRAN x10^3 (test 0.06 10*3/uL 0.00-0.06 code = 4666451369) LYMPH x10^3 (test code 1.82 10*3/uL 1.09-3.23 = 731-0) MONO x10^3 (test code 0.60 10*3/uL 0.36-1.02 = 742-7) EOS x10^3 (test code = 0.03 10*3/uL 0.06-0.53 L 711-2) BASO x10^3 (test code 0.05 10*3/uL 0.01-0.09 = 704-7) Lab Interpretation Abnormal (test code = 33261-0) [facility] [id number] 20:48:00 Test Item Value Reference Range Interpretation Comments COVID 19 INHOUSE AG (test code = NEGATIVE [id number]) URINALYSIS [id number] 16:11:00 Test Item Value Reference Range Interpretation [...] Urine Source? Clean CatchDRUGS OF ABUSE SCREEN [id number] 16:11:00 Test Item Value Reference Range Interpretation [...] See_Comment [A utomated message] OPIATURN) The system Fidus Writer generated this result transmitted ref erence range: [...] [A utomated message] = METHAURN) The system Fidus Writer generated this result transmitted ref erence range: <300 ng/ mL. The reference r maru was not used to interpret this result as normal/abnor mal. Urine Source? Clean CatchURINALYSIS [id number] 15:45:00 Test Item Value Reference Range Interpretation [...] Urine Source? Clean CatchDRUGS OF ABUSE SCREEN [id number] 15:45:00 Test Item Value Reference Range Interpretation Comments URN COCAINE (test code = NEGATIVE See_Comment [A utomated message] COCAURN) The system Fidus Writer generated this result transmitted ref erence range: [...] See_Comment [A utomated message] OPIATURN) The system Fidus Writer generated this result transmitted ref erence range: [...] [A utomated message] = METHAURN) The system Fidus Writer generated this result transmitted ref erence range: <300 ng/ mL. The reference r maru was not used to interpret this result as normal/abnor mal. Urine Source? Clean CatchURINALYSIS [id number] 14:21:00 Test Item Value Reference Range Interpretation [...] Urine Source? Clean CatchDRUGS OF ABUSE SCREEN [id number] 14:21:00 Test Item Value Reference Range Interpretation Comments URN COCAINE (test code = See_Comment [A utomated message] COCAURN) The system Fidus Writer generated this result transmitted ref erence range: [...] See_Comment [Automated message] = AMPHETURN) The system Fidus Writer generated this result transmitted ref erence range: <1000 ng /mL. The reference r maru was not used to interpret this result as normal/abnor mal. URN BARBITURATE (test code See_Comment [Automated message] = BARBITURN) The system Fidus Writer generated this result transmitted ref erence range: [...] See_Comment [A utomated message] OPIATURN) The system Fidus Writer generated this result transmitted ref erence range: [...] = See_Comment [Automated message] METHAURN) The system Fidus Writer generated this result transmitted ref erence range: <300 ng/ mL. The reference range was not used to int erpret this result as normal/abnormal . Urine Source? Clean CatchURINALYSIS [id number] 14:18:00 Test Item Value Reference Range Interpretation [...] Urine Source? Clean CatchDRUGS OF ABUSE SCREEN [id number] 14:18:00 Test Item Value Reference Range Interpretation Comments URN COCAINE (test code = See_Comment [A utomated message] COCAURN) The system Fidus Writer generated this result transmitted ref erence range: [...] See_Comment [Automated message] = AMPHETURN) The system Fidus Writer generated this result transmitted ref erence range: <1000 ng /mL. The reference r maru was not used to interpret this result as normal/abnor mal. URN BARBITURATE (test code See_Comment [Automated message] = BARBITURN) The system Fidus Writer generated this result transmitted ref erence range: [...] See_Comment [A utomated message] OPIATURN) The system Fidus Writer generated this result transmitted ref erence range: [...] = See_Comment [Automated message] METHAURN) The system Fidus Writer generated this result transmitted ref erence range: <300 ng/ mL. The reference range was not used to int erpret this result as normal/abnormal . Urine Source? Clean CatchBASIC METABOLIC [id number] 12:13:00 Test Item Value Reference Range Interpretation [...] >3 months. [Automated mess age] The system Fidus Writer generated this result transmitted ref erence range: >=60. Th e reference range was not used to int erpret this result as normal/abnormal . CREATININE (test 1.00 mg/dL 0.7-1.3 N code = CREAT) BUN/CREATININE RATIO 17.3 10-20 N (test code = BUN/CREA) CALCIUM (test code = 9.9 mg/dL 8.5-10.1 N CA) HEPATIC FUNCTION [id number] 12:13:00 Test Item Value Reference Range Interpretation [...] range due ALKP) to change in reagent. [id number] 12:13:00 Test Item Value Reference Range Interpretation Comments ACETAMINOPHEN (test < 10 mcg/mL 10-30 L A RANGE OF 10-30 code = ACET) mcg/mL IS A THERAPEUTIC RAN GE. TOXIC CONCENTRATIONS: >150 mcg/mL AT 4 ANTONIO RS AFTER INGESTION >= 50 mcg/mL AT 12 HOURS AFTER INGESTION [id number] 12:13:00 Test Item Value Reference Range Interpretation Comments SALICYLATE (test code = RENALDO) < 3.0 mg/dL 2.8-20.0 N [id number] 12:13:00 Test Item Value Reference Range Interpretation [...] CHARGE TO THE P ATIENT. CBC W/O [id number] 11:49:00 Test Item Value Reference Range Interpretation [...] 6.7-11.0 N = MPV) COVID 19 INHOUSE [id number] 00:12:00 Test Item Value Reference Range Interpretation Comments COVID 19 INHOUSE AG (test code = NEGATIVE [id number]) URINALYSIS [id number] 20:58:00 Test Item Value Reference Range Interpretation [...] Urine Source? Clean CatchDRUGS OF ABUSE SCREEN [id number] 20:58:00 Test Item Value Reference Range Interpretation Comments URN COCAINE (test code = NEGATIVE See_Comment [A utomated message] COCAURN) The system Fidus Writer generated this result transmitted ref erence range: [...] See_Comment [A utomated message] OPIATURN) The system Fidus Writer generated this result transmitted ref erence range: <300 ng/ mL. The reference r maru was not used to interpret this result as normal/abnor mal. URN PHENCYCLIDINE (PCP) NEGATIVE See_Comment [Au tomated message] (test code = PHENCURN) The s ysteDevonWay which generated this result transmitted ref erence range: <25 ng/m L. The reference range was not used to int erpret this result as normal/abnormal . URN METHADONE (test code NEGATIVE See_Comment [A utomated message] = METHAURN) The system Fidus Writer generated this result transmitted ref erence range: <300 ng/ mL. The reference r maru was not used to interpret this result as normal/abnor mal. Urine Source? Clean CatchBASIC METABOLIC [id number] 20:58:00 Test Item Value Reference Range Interpretation [...] Modifi ed MDRD (test code = GFR) formula.[facility] kidney disease is defined as eith er kidney damageor GFR <60 mL/min/1.73 m2 for >3 months. [Automated mess age] The system Fidus Writer generated this result transmitted ref erence range: >=60. Th e reference range was not used to int erpret this result as normal/abnormal . CREATININE (test 0.80 mg/dL 0.7-1.3 N code = CREAT) BUN/CREATININE RATIO 19.3 10-20 N (test code = BUN/CREA) CALCIUM (test code = 8.8 mg/dL 8.5-10.1 N CA) HEPATIC FUNCTION [id number] 20:58:00 Test Item Value Reference Range Interpretation [...] range due ALKP) to change in reagent. [id number] 20:58:00 Test Item Value Reference Range Interpretation Comments TROPONIN-I (test code = TROPI) < 0.006 ng/mL 0-0.045 N [id number] 20:58:00 Test Item Value Reference Range Interpretation Comments ACETAMINOPHEN (test < 10 mcg/mL 10-30 L A RANGE OF 10-30 code = ACET) mcg/mL IS A THERAPEUTIC RAN GE. TOXIC CONCENTRATIONS: >150 mcg/mL AT 4 ANTONIO RS AFTER INGESTION >= 50 mcg/mL AT 12 HOURS AFTER INGESTION [id number] 20:58:00 Test Item Value Reference Range Interpretation Comments SALICYLATE (test code = RENALDO) < 3.0 mg/dL 2.8-20.0 N [id number] 20:58:00 Test Item Value Reference Range Interpretation [...] [facility]RA[facility]/O [id number] 20:52:00 [facility])Name: TEJ GUDAALUPE : 1985 Sex: M Name: TJE GUADALUPE [facility] : 1985 Age/S: 35 / M [address] [facility] Unit #: [id number] Loc: [place] [address] Phys: Shaggy Morrow MD Acct: [id number] Dis Date: Status: PRE ER PHONE #:[phone] Exam Date: 12/13/20202017 FAX #: [phone] Reason: CONFUSION EXAMS: CPT CODE: [id number] CT HEAD/BRAIN W/O CONT 73294 HISTORY: CONFUSION TECHNIQUE: Noncontrast 2.5 mm axial [...] 12/13/2020 (2054) PAGE 1 Signed Report URINALYSIS [id number] 20:39:00 Test Item Value Reference Range Interpretation [...] Urine Source? Clean CatchDRUGS OF ABUSE SCREEN [id number] 20:39:00 Test Item Value Reference Range Interpretation Comments URN COCAINE (test code = See_Comment [A utomated message] COCAURN) The system Fidus Writer generated this result transmitted ref erence range: [...] See_Comment [Automated message] = AMPHETURN) The system Fidus Writer generated this result transmitted ref erence range: <1000 ng /mL. The reference r maru was not used to interpret this result as normal/abnor mal. URN BARBITURATE (test code See_Comment [Automated message] = BARBITURN) The system Fidus Writer generated this result transmitted ref erence range: [...] See_Comment [A utomated message] OPIATURN) The system Fidus Writer generated this result transmitted ref erence range: [...] = See_Comment [Automated message] METHAURN) The system Fidus Writer generated this result transmitted ref erence range: <300 ng/ mL. The reference range was not used to int erpret this result as normal/abnormal . Urine Source? Clean CatchURINALYSIS [id number] 20:29:00 Test Item Value Reference Range Interpretation [...] Urine Source? Clean CatchDRUGS OF ABUSE SCREEN [id number] 20:29:00 Test Item Value Reference Range Interpretation Comments URN COCAINE (test code = See_Comment [A utomated message] COCAURN) The system Fidus Writer generated this result transmitted ref erence range: [...] See_Comment [Automated message] = AMPHETURN) The system Fidus Writer generated this result transmitted ref erence range: <1000 ng /mL. The reference r maru was not used to interpret this result as normal/abnor mal. URN BARBITURATE (test code See_Comment [Automated message] = BARBITURN) The system Fidus Writer generated this result transmitted ref erence range: [...] See_Comment [A utomated message] OPIATURN) The system Fidus Writer generated this result transmitted ref erence range: [...] = See_Comment [Automated message] METHAURN) The system Fidus Writer generated this result transmitted ref erence range: <300 ng/ mL. The reference range was not used to int erpret this result as normal/abnormal . Urine Source? Clean CatchCBC W/O [id number] 20:22:00 Test Item Value Reference Range Interpretation [...] code 9.8 fL 6.7-11.0 N = MPV) Consult Notes Date/Time Note Provider Source 2022-06-01 16:47:23 9694-70-28N45:47:23Associated [facility] Order(s): CONSULT TO [facility] System PHARMACY-AMINOGLYCOSIDESFormatt ing of this note is different from the original.Pharmacy Aminoglycoside Monitoring NoteIndication: NTM SSTI/abscess Target peak: 35-45 mcg/ml for NTMTarget trough: <4 mcg/mlConcomitant antibiotics: Azithromycin, tigecyclineAllergies: No known allergies Pertinent Objective Labs: Date Dose/frequency concentration (peak/trough/random) 05/26 - current 800mg q24h 5.9 (9h random) - 05/2520.0 (2.5hr post-dose) - 265.4 (8-hr post-dose) - 05/28<2.5 (05/31) Microbiology:05/19: Wound - Acid Fast Bacilli05/24: Wound : NGTD Assessment/ plan:1. Amikacin trough <2.5mcg/ml - appropriate2. Amikacin stopped pending AFB species identification3. Pharmacy will sign off. Please reconsult if restarted in house Thank you for the opportunity to participate in the care of this patient. Please do not hesitate to contact us with any questions. Sil Soliz, Pharm.D., BCIDPClinical Roller Mill Tender - Infectious DiseasesCisco: [id number] signed by [facility] at 06/01/2022 4:48 PM [id number] cfwqLZ2153-05-08U92:48:27Consul t noteTXT1.2.840.791692.1.13.43.2 .7.2.468306|[id number] for patient hawd28699-0Jszpvzr [id number] Jelani Soliz [id number] 7JQCB7527-35-57J86:48:271.2.840 .098944.1.72.3.15|1.2.840.11075 0.1.13.43.2.7.2.727879_[id number] 31 2022-05-31 16:00:25 7530-80-10K28:00:25Formatting [facility] of this note is different from S ystem the original.Pharmacy Aminoglycoside Monitoring NoteIndication: NTM SSTI/abscessDay of therapy: 7 Target peak: 35-45 mcg/ml for NTMTarget trough: <4 mcg/mlConcomitant antibiotics: Azithromycin, tigecyclineAllergies: No known allergies Pertinent Objective Labs: Date Dose/frequency concentration (peak/trough/random) 05/26 - current 800mg q24h 5.9 (9h random) - 05/2520.0 (2.5hr post-dose) - 265.4 (8-hr post-dose) - 05/28 Microbiology:05/19: Wound - Acid Fast Bacilli05/24: Wound : NGTD Assessment:1. CrCl: >120,Scr/BUN stable, 2. Current dose: On amikacin 800mg (10mg/kg) q24h 3. True peak based on patient-specific PK: 37mcg/ml (goal: 35-45mcg/ml)4. True trough based on patient-specific PK: <1 mcg/ml (goal: <4 mcg/ml)Plan: 1. Will Continue current dose2. Labs Ordered: Repeat trough tonight; will follow-up in the AM. (ordered) Thank you for the opportunity to participate in the care of this patient. Please do not hesitate to contact us with any questions. Sil Soliz, Pharm.D., BCIDPClinical Roller Mill Tender - Infectious DiseasesCisco: [id number] signed by Sil Soliz [facility] at 05/31/2022 4:00 PM [id number] bhgnWI4903-30-54B78:00:59Consul t noteTXT1.2.840.397009.1.13.43.2 .7.2.752872|[id number] for patient tdbc46325-1Hibdnfw [facility] [facility] Regi[id number] 7ULVF8667-75-97R68:00:591.2.840 .107960.1.72.3.15|1.2.840.34554 0.1.13.43.2.7.2.727879_[id number] 47 2022-05-30 14:28:02 7174-98-14S97:28:02Formatting [facility] of this note is different from S sarah the original.Pharmacy Aminoglycoside Monitoring NoteIndication: NTM SSTI/abscessDay of therapy: 6 Target peak: 35-45 mcg/ml for NTMTarget trough: <4 mcg/mlConcomitant antibiotics: Azithromycin, tigecyclineAllergies: No known allergies Pertinent Objective Labs: Date Dose/frequency concentration (peak/trough/random) 05/26 - current 800mg q24h 5.9 (9h random) - 05/2520.0 (2.5hr post-dose) - 265.4 (8-hr post-dose) - 05/28 Microbiology:05/19: Wound - Acid Fast Bacilli05/24: Wound : NGTD Assessment:1. CrCl: >120,Scr/BUN stable, 2. Current dose: On amikacin 800mg (10mg/kg) q24h 3. True peak based on patient-specific PK: 37mcg/ml (goal: 35-45mcg/ml)4. True trough based on patient-specific PK: <1 mcg/ml (goal: <4 mcg/ml)Plan: 1. Will Continue current dose2. Labs Ordered: Will repeat trough tomorrow to ensure pt is not accumulating; due @1800 (will order tomorrow) Thank you for the opportunity to participate in the care of this patient. Please do not hesitate to contact us with any questions. Sil Soliz, Pharm.D., BCIDPClinical Roller [employer]ender - Infectious DiseasesCisco: [id number] signed by Sil Soliz [facility] at 05/30/2022 2:36 PM [id number] iknxSF4480-35-50P86:36:01Consul t noteTXT1.2.840.976179.1.13.43.2 .7.2.717974|[id number] for patient xjxb04895-2Rxmbyqh noteEllis Island Immigrant [facility] [facility] RegionHxldIqwmrdlOzbhxlsRMQB753854442 9DIXK8693-76-18K45:36:011.2.840 .732484.1.72.3.15|1.2.840.15020 0.1.13.43.2.7.2.727879_[id number] 11 2022-05-29 12:08:26 9494-64-78T56:08:26Formatting Mairam reyes [facility] of this note is different from [facility] S carolinem the original.Pharmacy Aminoglycoside Monitoring NoteIndication: NTM SSTI/abscessDay of therapy: 5 Target concentration: dosing per Joe nomogram, targeting goal peak ~25-45 mcg/mL, trough ~5 mcg/mL Concomitant antibiotics: Azithromycin, tigecyclineAllergies: No known allergies Pertinent Objective Labs: Date dose/frequency concentration (peak/trough/random) 05/26 800mg q24h 5.9 (9h random) 05/27 800mg q24h Peak: 20 (2.5h after end of infusion, true ~37)5.4 (9h random) 05/28-current 800mg q24h Microbiology:05/24: Wound : NG Assessment:1. CrCl: >120,Scr/BUN stable, 2. On amikacin 800mg (10mg/kg) q24h 3. Peak and random levels are appropriate (peak 20, est cmax ~37; 9h random 5.4) on 05/26Plan: 1. Will Continue current dose2. Labs Ordered: No further levels at this time, will continue to monitor Thank you for the opportunity to participate in the care of this patient. Please do not hesitate to contact us with any questions. Mariam Lepe [facility].BCOPClinical Roller Mill Tender Hematology/OncologyCisco : [phone] signed by Mariam Lepe [facility] at 05/29/2022 12:09 PM [id number] fxcnVG6737-79-14Z52:09:49Consul t noteTXT1.2.840.983932.1.13.43.2 .7.2.589787|[id number] for patient nkrh58614-2Eqnnfrl [id number] Rostane [id number] 7FAWO0688-47-89O63:09:491.2.840 .663244.1.72.3.15|1.2.840.64316 0.1.13.43.2.7.2.727879_[id number] 42 2022-05-28 10:27:53 1729-87-52L44:27:53Formatting [facility] of this note is different from S sarah the original.Pharmacy Aminoglycoside Monitoring NoteIndication: NTM SSTI/abscessDay of therapy: 4 Target concentration: dosing per [place] nomogram, targeting goal peak ~25-45 mcg/mL, trough ~5 mcg/mL Concomitant antibiotics: Azithromycin, tigecyclineAllergies: No known allergies Pertinent Objective Labs: Date dose/frequency concentration (peak/trough/random) 05/26 800mg q24h 5.9 (9h random) 05/27 800mg q24h Peak: 20 (2.5h after end of infusion, true ~37)5.4 (9h random) 05/28 800mg q24h Microbiology:05/24: Wound : NG Assessment:1. CrCl: >120,Scr/BUN stable, 2. Continues on amikacin 800mg (10mg/kg) q24h 3. Peak and random levels are appropriate (peak 20, est cmax ~37; 9h random 5.4) Plan: 1. Will Continue current dose2. Labs Ordered: No further levels at this time, will continue to monitor Thank you for the opportunity to participate in the care of this patient. Please do not hesitate to contact us with any questions. Mariam Lepe [facility].BCOPClinical [employer]ler [employer]ender Hematology/OncologyCisco : [phone] signed by Mariam Lepe [facility] at 05/28/2022 10:29 AM [id number] xkiwYO8074-71-87S10:29:36Consul t noteTXT1.2.840.606288.1.13.43.2 .7.2.018345|[id number] for patient fqqx99152-3Easpggu note[id number] 7WJRL3840-87-27R75:29:361.2.840 .609412.1.72.3.15|1.2.840.50093 0.1.13.43.2.7.2.727879_[id number] 61 2022-05-27 12:23:47 8632-99-31M75:23:47Formatting Ruchi Olsen [facility] of this note is different from S [facility] the original.Pharmacy Aminoglycoside Monitoring NoteIndication: NTM SSTI/abscessDay of therapy: 3 Target concentration: dosing per [place] nomogram, targeting goal peak ~25-45 mcg/mL, trough ~5 mcg/mL Concomitant antibiotics: Azithromycin, tigecyclineAllergies: No known allergies Pertinent Objective Labs: Date dose/frequency concentration (peak/trough/random) 05/26 800mg q24h 5.9 (9h random) 05/27 800mg q24h Peak: 20 (2.5h after end of infusion, true ~37)5.4 (9h random) Microbiology:pending Assessment:1. CrCl: >120,Scr/BUN stable, 2. Continues on amikacin 800mg (10mg/kg) q24h 3. Peak and random levels are appropriate (peak 20, est cmax ~37; 9h random 5.4) Plan: 1. Will Continue current dose2. Labs Ordered: No further levels at this time, will continue to monitor Thank you for the opportunity to participate in the care of this patient. Please do not hesitate to contact us with any questions. Ruchi Olsen, PharmD, BCCCPPhone: [phone] signed by Ruchi Olsen, [facility] at 05/27/2022 1:04 PM [id number] tfqeNI4436-90-06X91:04:50Consul t noteTXT1.2.840.440009.1.13.43.2 .7.2.564348|[id number] for patient coda63088-4Enacoev [id number] Sigmon [id number] 7XTWR2123-06-60E91:04:501.2.840 .761360.1.72.3.15|1.2.840.76657 0.1.13.43.2.7.2.727879_[id number] 11 2022-05-26 09:18:39 1002-47-54I12:18:39Formatting [facility] of this note is different from Keagan smith the original.Pharmacy Aminoglycoside Monitoring NoteIndication: NTM SSTI/abscessDay of therapy: 2 Target concentration: dosing per [place] nomogram, targeting goal peak ~25-45 mcg/mL, trough ~5 mcg/mL Concomitant antibiotics: Azithromycin, tigecyclineAllergies: No known allergies Pertinent Objective Labs: Date dose/frequency concentration (peak/trough/random) 05/26 800mg q24h 5.9 (9h random) Microbiology:pending Assessment:1. CrCl: >120,Scr/BUN stable, 2. Continues on amikacin 800mg (10mg/kg) q24h 3. Random 9h level obtained today demonstrates dose appropriate per [place] nomogramPlan: 1. Will Continue current dose2. Labs Ordered: will order 2 levels: 2-h and 8-h post dose levels to confirm Thank you for the opportunity to participate in the care of this patient. Please do not hesitate to contact us with any questions. Ruchi Olsen, PharmD, [facility] CENTERCPPhone: [phone] signed by Ruchi Olsen, [facility] at 05/26/2022 9:36 AM [id number] qyfeWY7149-76-32S85:36:50Consul t noteTXT1.2.840.524640.1.13.43.2 .7.2.645886|[id number] for patient ufek82328-9Gqnsgaq noteEllis Island Immigrant Hospital[address] [facility] Regi[id number] 7CQUB1546-21-68I47:36:501.2.840 .794748.1.72.3.15|1.2.840.82754 0.1.13.43.2.7.2.727879_[id number] 20 2022-05-25 08:07:02 2839-56-65Z30:07:02[facility] Order(s): IP CONSULT TO System INFECTIOUS DISEASE Images from the original note were not included.Infectious Disease Consult ServiceAttending Consult NoteReason for Consult: NTM infectionRequesting Physician: LUCIA Burchdmission Date: 05/23/2022 Admission Diagnosis: CellulitisImpression/Recommenda tions: Tej Guadalupe is a 37y.o. male w/ history of IVDU, BPD comes in with non healing wounds after attempted IVDU with failed needle sticks about a month ago. These did not improve with I&D and antibiotics from OSH and another attempt at antibiotics and I&D at [facility]. He came back with worsening lesions and was admitted for same. We are consulted for his cultures growing AFB 4+. 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- we will try and treat with a broad spectrum regimen while we await identification as the lesions are painful and worsening- amikacin, azithromycin are the backbone of many NTM regimens and we have clear data that these are critical components - tigecycline provides very broad NTM coverage but data is lacking on clinical outcomes- the combination has a high probability of giving 2 or 3 drug coverage for these NTMs however there are no local antibiograms so we used the consensus of 3 independent studies in the primary literature as well as local recommendations.- I have ordered amikacin with trough, and PharmD consult for monitoring- if nausea or anorexia, will need tigecycline dose reduction (anti-emetics usually not helpful)We will follow this fascinating caseArash Obando MD, PhD [facility] Infectious DiseasesProvider #[id number] 2021 8:09 AM H istory Obtained From: patient, electronic medical recordHistory of Present Illness: The patient is a 37y.o. male with PMH of substance abuse (methamphetamine, opiates, benzodiazepines) on suboxone and currently in a detox program, bipolar disorder on prozac, zyprexa, who presented with multiple worsening right and left forearm abscesses. He states that the abscesses first appeared approximately one month ago within 24 hours of injecting methamphetamine into his right and left forearm in multiple locations including the sites of the abscesses. He reports using clean needles but did not wash his arms before or after. He was seen at an OSH at that time where they I&D'd one abscess on his distal posterior right forearm and sent him home on antibiotics (cephalexin and bactrim per chart). The "lumps" on his arms never fully went away and he used a self-sterilized thumbtack to drain two of them on the right arm himself and they drained blood and pus. On the he came to the ED as they were not resolving where they I&D'd two areas of fluctuance on his right forearm w/ 1 CC of pus removed and discharged him with bactrim and keflex. The abscesses continued to worsen and he developed multiple new abscesses on his right forearm and one on his left forearm, so he returned to the ED on 05/23. He denies any IVDU for the past month. Denies fevers, chills, nausea, vomiting, diarrhea, chest pain, cough, shortness of breath. WBC 8.1, Cr 0.7. He states that he normally smokes his meth and prior to the one instance a month ago he had not injected drugs for approximately one year. He denies skin popping. He buys his drugs from a dealer that he knows, and uses at home. He states that he uses clean needles. He crushed the meth in a bottle cap using the butt of the syringe and then dissolved the meth in a bottle cap from a water or soda bottle (uncleaned) using water of unknown source (tap or bottled). He injected in his distal and proximal b/l forearms, believes he injected at every spot there is currently an abscess, and thinks he missed his veins multiple times. He did not filter any substance that he injected. As far as he knows, no one else that buys meth from the same dealer has had any infections, but his knowledge on this is limited. SH: He lives in a house with his sister and has not noticed any mold. He visits his grandfather frequently and believes that there may be mold at his house. His grandfather has one cat which has not scratched or bit the patient. He denies contact with other animals including bats, chickens, other birds, opossums. He does not spend time under bridges or in caves and has never been homeless. He has not travelled outside of [place] recently and does not have any sick contacts. He smokes half a pack of cigarettes a day, smokes marijuana occasionally, and has not used alcohol in the past month. Prior to that he would have 1-2 drinks per day.FH: Reviewed and NCMedications:05/25 tige05/25 amikacin05/25 azithromycin Microbiology: 05/24 wound ngtd05/24 wound ngtd05/24 wound ngtd05/24 afb none seen05/24 afb none seen05/24 afb none seen05/24 lala in proc05/24 lala in proc05/24 lala in procHistory: The allergies, medications, past medical, surgical, family and social histories were reviewed and documented in the appropriate sections in [employer].Immunization history: There is no immunization history on file for this patient. Review of Systems: Review of Systems Constitutional: Positive for malaise/fatigue. Negative for chills, fever and weight loss. HENT: Negative for congestion and sore throat. Eyes: Negative for blurred vision, double vision, photophobia and pain. Respiratory: Negative for cough, sputum production and shortness of breath. Cardiovascular: Negative for chest pain and leg swelling. Gastrointestinal: Negative for abdominal pain, constipation, diarrhea, nausea and vomiting. Genitourinary: Negative for dysuria. Musculoskeletal: Negative for back pain. Skin: Positive for rash. Negative for itching. Neurological: Negative for weakness and headaches. Psychiatric/Behavioral: Positive for depression and substance abuse. ObjectiveVITALS: Visit VitalsBP 105/68 Pulse 82 Temp 97.8 F (36.6 C) (Oral) Resp 17 Ht 5' 8" (1.727 m) Wt 179 lb (81.2 kg) SpO2 95% BMI 27.22 kg/m2 Smoking Status Current Every Day Smoker BSA 1.97 m2 Physical Exam: Physical ExamConstitutional: General: He is not in acute distress. Appearance: Normal appearance. HENT: Head: Normocephalic and atraumatic. Mouth/Throat: Mouth: Mucous membranes are moist. Pharynx: Oropharynx is clear. No oropharyngeal exudate. Eyes: General: No scleral icterus. Right eye: No discharge. Left eye: No discharge. Extraocular Movements: Extraocular movements intact. Conjunctiva/sclera: Conjunctivae normal. Pupils: Pupils are equal, round, and reactive to light. Cardiovascular: Rate and Rhythm: Normal rate. Pulses: Normal pulses. Heart sounds: No murmur heard. No gallop. Pulmonary: Effort: Pulmonary effort is normal. No respiratory distress. Breath sounds: Normal breath sounds. No wheezing or rales. Abdominal: General: Abdomen is flat. Bowel sounds are normal. There is no distension. Palpations: Abdomen is soft. Tenderness: There is no abdominal tenderness. There is no guarding. Musculoskeletal: Cervical back: No rigidity. Right lower leg: No edema. Left lower leg: No edema. Lymphadenopathy: Cervical: No cervical adenopathy. Skin: General: Skin is warm. Findings: Lesion present. Neurological: General: No focal deficit present. Mental Status: He is alert and oriented to person, place, and time. Cranial Nerves: No cranial nerve deficit. Psychiatric: Mood and Affect: Mood normal. Behavior: Behavior normal. Thought Content: Thought content normal. Judgment: Judgment normal. Data: All labs, images, and data reviewed. 13926-5Jjlzbmp cthqPW8494-79-36D13:04:27Consul t noteTXT1.2.840.776532.1.13.43.2 .7.2.379163|[id number] for patient hjaj44350-3Mbtjnvf noteEllis Island Immigrant Hospital[address] [facility] Regi[id number] 8ZZUD5536-44-59N51:04:271.2.840 .230367.1.72.3.15|1.2.840.20816 0.1.13.43.2.7.2.727879_[id number] 10 2022-05-23 21:39:21 9288-64-82F32:39:21[facility] Order(s): IP CONSULT TO HAND Sys tem SURGERY Plastic Hand Surgery ServiceResident Consult NoteReason for Consult: forearm tendernessConsult Date: 05/23/2022 Impression/Recommendations: Tej Guadalupe is a 37y.o. LHD male with a past medical history of IV drug abuse who presents with a one month history of intermittent and evolving areas of tenderness and erythema, predominantly on the right forearm- areas of concern marked in the ED -- no areas of tense fluctuance that were amenable to drainage at the time of evaluation -- if the infection consolidates, will drain at bedside under local anesthesia- no need to make patient NPO- continue IV antibiotics- recommended evaluation of HIV/HCV, since obtained and negative- PRS will continue to followChristopher Germán MDPlastic and Reconstructive Surgery, JXW7AxxsqdSonoma Valley HospitalPager: [phone] 2021 9:39 PMSubjective: Chief Complaint: forearm painHistory Obtained From: patient, electronic medical recordHistory of Present Illness: Tej Guadalupe is a 37y.o. LHD male with a past medical history of IV drug abuse who presents with a one month history of intermittent and evolving areas of tenderness and erythema, predominantly on the right forearm. He has one area of concern about the left elbow. He is currently compliant with a rehab program and not using IV drugs. He has failed outpatient antibiotic therapy. Past Medical History:No past medical history on file. Past Surgical History:No past surgical history on file. Current Medications: Current Facility-Administered Medications Medication Dose Route Frequency Provider Last Rate Last Admin [START ON 05/24/2022] buprenorphine-naloxone (SUBOXONE) 4-1 mg film 1 Film 1 Film Sublingual daily Yasmany Gonzalez ResidentMD clonazePAM (KLonoPIN) tablet 0.5 mg 0.5 mg Oral 2x daily prn Yasmany Gonzalez ResidentMD [START ON 05/24/2022] FLUoxetine (PROzac) capsule 20 mg 20 mg Oral daily Yasmany Gonzalez ResidentMD [START ON 05/24/2022] OLANZapine (ZyPREXA) tablet 20 mg 20 mg Oral at bedtime Yasmany Gonzalez ResidentMD acetaminophen (TYLENOL) tablet 650 mg 650 mg Oral q6h prn Yasmany Gonzalez ResidentMD Current Outpatient Medications Medication Sig Dispense Refill buprenorphine-naloxone (SUBOXONE) 4-1 mg film 1 Film daily cephALEXin (KEFLEX) 500 mg capsule Take 1 capsule by mouth 4 times daily for 10 days 40 capsule 0 sulfamethoxazole-trimethoprim (BACTRIM DS) 800-160 mg tablet Take 1 tablet by mouth every 12 hours for 10 days 20 tablet 0 FLUoxetine (PROZAC) 20 mg capsule Take 20 mg by mouth daily OLANZapine (ZYPREXA) 10 mg tablet Take 20 mg by mouth at bedtime nightly clonazePAM (KLONOPIN) 2 mg tablet Take 2 mg by mouth 2 times daily as needed for Anxiety Allergies: No Known Allergies Social History: Social History Tobacco Use Smoking status: Current Every Day Smoker Packs/day: 1.00 Smokeless tobacco: Never Used Tobacco comment: 1 pack/day Substance Use Topics Alcohol use: Never Family History: No family history on file. Review of Systems: 12-point ROS reviewed and negative except as noted per HPIObjective Visit VitalsBP 146/90 Pulse 71 Temp 97.7 F (36.5 C) Resp 18 Ht 5' 8" (1.727 m) Wt 179 lb 14.3 oz (81.6 kg) SpO2 100% BMI 27.35 kg/m2 Smoking Status Current Every Day Smoker BSA 1.98 m2 Physical Exam: Gen: Awake, alert, conversant, in no distressCV: Regular ratePulm: Unlabored on RAGrossly: Multiple areas of erythema and tenderness, no tense fluctuance consistent with an organized fluid collection, previous I&D incision which patient said was purulent and now looks healthyVascular: Warm and well perfused, +2 radial pulse, cap refill < 2 secNeurosensory: SILTNeuromuscular: Pinch and opposition intact (median and ulnar nerve). Muscle strength 5/5. Full AROM. Joints: Full PROMTendons: Normal tenodesisBones: No bony tenderness Data: CBC: No results found for this or any previous visit (from the past 24 hour(s)).BMP: No results found for this or any previous visit (from the past 24 hour(s)).Radiology Review: XR at previous ER visit with no changes. No need to repeat 50406-7Njnnwqa prynPS763036XrhvewortxAdrian Anderson B1.2.840.109308.1.13.43.2.7.2.8 88437HjdbgfwolxTslghJnukg DBU9486-70-20R61:42:00Consult noteTXT1.2.840.410342.1.13.43.2 .7.2.392448|[id number] for patient icpm08678-8Atzprgh [id number] 1PMMK7758-18-46V37:50:061.2.840 .145005.1.72.3.15|1.2.840.27653 0.1.13.43.2.7.2.727879_[id number] 43 History and Physical Notes Date/Time Note Provider Source 2022-05-23 22:01:59 0256-63-22M50:01:59Formatting Internal Medic [facility] of this note is different System from the original.Medicine Team B Admission History & PhysicalAssessment/Plan:Tej Guadalupe is a 37y.o. year old male with PMH of IVDU, polysubstance use disorder presenting with prolonged infection of the forearm at the site of IVDU injections despite I&D last week and course of bactrim/keflex. HDS, afebrile#Right forearm cellulitis w/ possible abscess #Left forearm abscess- progressive over the past month despite I&D and bactrim/keflex- mild fluctuance at multiple sites but no tense fluctuance- culture negative from 05/19 - suspect treatment failure 2/2 inadequate source control, patient denies current IVDU since 1 month ago- ER US performed by ER provider but no read available- evaluated by plastics, no areas amenable to drainage. May consider bedside I&D under local anesthesia at a later time- HDS, afebrile- s/p loading dose of vanc in ER- continue vanc given no operative plans[ ] HIV, hep panel#Benzo use disorder#Opiate use disorder- patient reports being in inpatient drug rehab program for the past several days, says he is on suboxone 4 mg daily and klonopin taper 0.5 mg BID. At last ER visit patient was discharged off benzos. Reported hx of benzo withdrawal- monitor for symptoms of benzo withdrawal- klonopin 0.5 mg BID PRN and suboxone 4 mg daily ordered#Mood disorder- resume home fluoxetine and zyprexa, patient reports complianceDisposition: Admit to medicine for further workup/treatment.Code Status: FULL CODEEmergency Contact: Primary Emergency Contact: Jake GUADALUPE, [facility] QNP2MxrhrbSon[facility]10:02 PM, 05/23/2022 Chief Complaint: forearm pain History of Present Illness: Tej Guadalupe is a 37y.o. year old male with PMH of IVDU, polysubstance use disorder presenting with infection of the forearm at the site of IVDU injections. Patient reports being in [facility] about 1 month ago when he developed right arm pain and swelling. This was shortly after IV meth use. He presented to OSH where he reportedly had I&D of right forearm and discharged on keflex and bactrim. Over the course of the next 2-3 weeks, patient reports developing worsening of swelling, w/ new pockets of pus, one also on the left arm, despite no IVDU since the month prior. He reports trying to drain one on his own using a thumbtack. He presented to ER 05/19 and had a bedside I&D, then sent home to continue bactrim/keflex. Patient reports infxn continued to worsen, prompting visit to ER today. Patient denying fevers.Patient reports being in inpatient drug rehab program for the past several days, says he is on suboxone 4 mg daily and klonopin taper 0.5 mg BID. At last ER visit patient was discharged off benzos. Reported hx of benzo withdrawalReview of Systems: 10 point review of systems negative except as stated in the HPI. Medical History: No past medical history on file.No past surgical history on file.No family history on file.Social History Tobacco Use Smoking status: Current Every Day Smoker Packs/day: 1.00 Smokeless tobacco: Never Used Tobacco comment: 1 pack/day Substance Use Topics Alcohol use: Never Drug use: Yes Types: Methamphetamines Comment: last use- last week Allergies:No Known AllergiesHome MedicationsPrior to Admission Medications Prescriptions Last Dose Informant Patient Reported? Taking? FLUoxetine (PROZAC) 20 mg capsule 05/23/2022 Yes Yes Sig: Take 20 mg by mouth daily OLANZapine (ZYPREXA) 10 mg tablet 05/23/2022 Yes Yes Sig: Take 20 mg by mouth at bedtime nightly buprenorphine-naloxone (SUBOXONE) 4-1 mg film 05/23/2022 Yes Yes Si Film daily cephALEXin (KEFLEX) 500 mg capsule 05/23/2022 No Yes Sig: Take 1 capsule by mouth 4 times daily for 10 days clonazePAM (KLONOPIN) 2 mg tablet 05/11/2022 Yes No Sig: Take 2 mg by mouth 2 times daily as needed for Anxiety sulfamethoxazole-trimethoprim (BACTRIM DS) 800-160 mg tablet 05/23/2022 No Yes Sig: Take 1 tablet by mouth every 12 hours for 10 days Facility-Administered Medications: None Physical Exam: Current Min/Max Temp 97.7 F (36.5 C) Temp Min: 97.7 F (36.5 C) Max: 98.9 F (37.2 C) HR 71 Pulse Min: 71 Max: 99 BP 146/90 BP Min: 127/77 Max: 146/90 Resp: 18 Resp Min: 18 Max: 18 O2 100 % SpO2 Min: 95 % Max: 100 % Physical exam:General: well-developed, well-nourished, cooperative and in NAD HEENT: NCATCV: RRR, no MRG, normal s1+s2Resp: CTAB, no wheezes, rales, rhonchi GI: soft, nontender, nondistended, no organomegaly, no rebound or guardingSkin: several mildly 1-3 cm raised areas of erythema on the right forearm. Minimal tenderness w/ some fluctuance. Site of previous I&D w/o fluctuance. 1 similar area on left forearmExtremities: WWP, no lower extremity edemaNeuro: alert and orientedLabs & Imaging: [facility] ssociated attestation - Hank Kilpatrick MD - 05/24/2022 2:10 AM CDT Please see my separate note for my attestation.[id number] and physical [id number], Vishal1.2.840.429790.1.13.43. 2.7.2.157623IpeydHpdmykN, VV1872-52-05M68:10:26History and physical noteTXT1.2.840.472385.1.13.43 .2.7.2.412474|[id number] ilable for patient sphd31848-5Vyirugm and physical noteLNInternal MedicineInternal MedicineNewark Hospital[address] [place], [place] [id number] 466CTYS1352-66-21B28:10:261.2 .840.440377.1.72.3.15|1.2.840 .449754.1.13.43.2.7.2.727879_ [id number] Procedure Notes Date/Time Note Provider Source 2022-05-31 08:35:51 [id number]:35:51Procedure(s): I& D [facility] OF ABSCESS WITH PACKING System (COMPLICATED)Pre-Procedure Diagnose(s): Abscess of forearm, rightPost-Procedure Diagnose(s): Abscess of forearm, right Division of Plastic SurgeryBedside Procedure NoteProcedure Performed: Incision and Drainage Primary Indication: 37y.o. male with 1.2x1.4cm abscess of the right forearm, consolidating over the past week. Now amenable to drainage.H&P Status: H&P was reviewed, the patient was examined and no change has occurred in patient's condition since H&P was completed.Informed Consent & Time Out: The patient provided verbal consent for this procedure. Barrier Precautions & Sterile Technique: As documented in the Pre-Procedure Check List.Local Anesthesia: Lidocaine 1% 8ml with epinephrineNumber of Kits Used: 1Dressings: AppliedEstimated Blood Loss: MinimalSpecimens Collected: Culture sentComplications: nonePrimary Proceduralist: MULU Carrilloupervising Physician: JUAN Englerocedure in Detail: The area of fluctuance was prepped with chlorhexidine. Lidocaine with epinephrine was infiltrated proximally and along the sides of the abscess. When anesthesia was verified, a longitudinal incision was made over the area of maximal fluctuance. A pocket was encountered with expression of sanguinopurulence, notably more sanguinous than the previous I&Ds last week. The pocket was immediately cultured. The wound was then rinsed with normal saline. A rind at the base of the pocket was appreciated and it was roughed up with the 11 blade. The pocket was clean at this time and was packed with 1/2" iodoform gauze. Dressings were applied and wound care instructions were be provided. The patient tolerated the procedure well and there were no complicationsChristopher JUAN Dunlaplastic and Reconstructive Surgery, FCS9Ewnhtm[address] [place], [place] [address]Pager: [phone] 2021 8:36 AM 34425-9Afakrrbgj [id number].13.43.2.7.2.83 1965GmDdczioED9558-15-57C09:00:54Proc edure noteTXT1.2.840.964474.1.13.43.2.7.2.7 77642|[id number] for patient wgnp79937-5Lcqojaubt noteLNNewark Hospital[address] Bu[id number] 286-04-62M25:49:121.2.840.246242.1.72 .3.15|1.2.840.249527.1.13.43.2.7.2.72 [id number] 2022-05-24 16:29:09 9420-02-48Z96:29:09Procedure(s): I& D [facility] OF ABSCESS WITH PACKING System (COMPLICATED); I& D OF ABSCESS WITH PACKING (COMPLICATED); I& D OF ABSCESS WITH PACKING (COMPLICATED); I& D OF ABSCESS WITH PACKING (COMPLICATED)Pre-Procedure Diagnose(s): Abscess of right forearm; Abscess of right forearm; Abscess of right forearm; Abscess of left forearmPost-Procedure Diagnose(s): Abscess of right forearm; Abscess of right forearm; Abscess of right forearm; Abscess of left forearm Division of Plastic SurgeryBedside Procedure NoteProcedure Performed: Incision and Drainage of Abscesses Primary Indication: 37y.o. male with a past medical history of IV drug abuse who presents with a one month history of intermittent and evolving areas of tenderness and erythema, predominantly on the right forearmH&P Status: H&P was reviewed, the patient was examined and no change has occurred in patient's condition since H&P was completed.Informed Consent & Time Out: The patient provided verbal consent for this procedure. Barrier Precautions & Sterile Technique: As documented in the Pre-Procedure Check List.Local Anesthesia: Lidocaine 1% 14ml without epinephrineNumber of Kits Used: 1Dressings: AppliedEstimated Blood Loss: MinimalSpecimens Collected: Culture t2Hbynsicxmcpln: nonePrimary Proceduralist: MULU Carrilloupervising Physician: JUAN Andersonrocedure in Detail: The patient's right and left forearm abscesses were prepped with betadine. Local anesthesia was achieved with 14cc of 1% Lidocaine without epinephrine at the 4 areas of maximal fluctuance and tenderness (3 on the right forearm and 1 on the left forearm). Anesthesia of the left forearm was verified and an axial incision was made over the area of maximal fluctuance. Purulence was encountered. A culture was taken and labeled. The wound was washed out copiously with pressurized betadine and saline solution. The wound was then packed with 1/2" iodoform gauze. Attention was turned to the right forearm distal ulnar fluctuance. Anesthesia of the right forearm was verified and an axial incision was made over the area of maximal fluctuance. Purulence was encountered. A culture was taken and labeled. The wound was washed out copiously with pressurized betadine and saline solution. The wound was then packed with 1/2" iodoform gauze. Attention was turned to the right forearm proximal ulnar fluctuance. Anesthesia of the right forearm was verified and an axial incision was made over the area of maximal fluctuance. Purulence was encountered and was a different character than the previous two cultures. A culture was taken and labeled. The wound was washed out copiously with pressurized betadine and saline solution. The wound was then packed with 1/2" iodoform gauze. Attention was turned to the right forearm proximal radial fluctuance. Anesthesia of the right forearm was verified and an axial incision was made over the area of maximal fluctuance. Purulence was encountered. A culture was not taken. The wound was washed out copiously with pressurized betadine and saline solution. The wound was then packed with 1/2" iodoform gauze. The wounds were hemostatic. Dressings were applied and wound care instructions were provided. The patient tolerated the procedure well and there were no complications. The three cultures were labeled appropriately with the nursing staff and sent to the microbiology lab.Gabe Dunlap, [facility] HOSPITALlastic and Reconstructive Surgery, SSE1Pnnfvk[address] [place], [place] [address]Pager: [phone] 2021 4:30 PM 28807-1Bkfmyqwss [id number] Anderson B1.2.840.005485.1.13.43.2.7.2.266030R Aaron YIH2872-70-30J54:42:01Procedure noteTXT1.2.840.431488.1.13.43.2.7.2.7 79027|[id number] for patient aklg13487-2Zghbitmrq noteLNNewark Hospital[address] [place], [place] [id number] 868-21-05L38:41:491.2.840.161244.1.72 .3.15|1.2.840.388472.1.13.43.2.7.2.72 [id number]
--- NOTE | 2023-07-20 10:45 | EDPHYS ---
Physician Documentation [facility] [place] Name: Anthony Au Age: 38 yrs Sex: Male : 1985 Arrival Date: 07/20/2023 Time: 10:33 Bed 19 Private MD: ED Physician Izaiah Kilpatrick HPI: 07/20 10:42 This 38 yrs old Male presents to ER via Unassigned with complaints of sp3 Medication Refill, Probable Seizure. 10:42 38-year-old male with a history of psychiatric problems including anxiety who is sp3 currently on Xanax and "detoxing from Suboxone" who presents for anxiety and detox symptoms requesting medication refill for benzodiazepines. He has an appointment on Monday with his psychiatrist. No other symptoms reported including full seizure, headache, neck pain, chest pain, shortness of breath, suicidal ideation, homicidal ideation, psychosis, Sundar pain, nausea, vomiting, diarrhea or any other signs or symptoms on ROS at this time.. Historical: - Allergies: 10:44 No Known Allergies; iw - PMHx: 10:44 Anxiety; Asthma; Bipolar disorder; Depression; detox seizures; scalp laceration repair.;iw - PSHx: 10:44 I\\T\\D; iw - Immunization history:: Client reports receiving the 2nd dose of the Covid vaccine. - Social history:: Smoking status: Patient reports the use of cigarette tobacco products. ROS: 10:43 Constitutional: Negative for fever, chills, and weight loss, Eyes: Negative for injury, sp3 pain, redness, and discharge, ENT: Negative for injury, pain, and discharge, Neck: Negative for injury, pain, and swelling, Cardiovascular: Negative for chest pain, palpitations, and edema, Respiratory: Negative for shortness of breath, cough, wheezing, and pleuritic chest pain, Abdomen/GI: Negative for abdominal pain, nausea, vomiting, diarrhea, and constipation, Back: Negative for injury and pain, MS/Extremity: Negative for injury and deformity, Skin: Negative for injury, rash, and discoloration, Neuro: Negative for headache, weakness, numbness, tingling, and seizure, Allergy/Immunology: Negative for hives, rash, and allergies, Endocrine: Negative for neck swelling, polydipsia, polyuria, polyphagia, and marked weight changes, 10:43 All other systems are negative, Exam: 10:43 Constitutional: This is a well developed, well nourished patient who is awake, alert, sp3 and in no acute distress. Head/Face: Normocephalic, atraumatic. Eyes: Pupils equal round and reactive to light, extra-ocular motions intact. Lids and lashes normal. Conjunctiva and sclera are non-icteric and not injected. Cornea within normal limits. Periorbital areas with no swelling, redness, or edema. ENT: Nares patent. No nasal discharge, no septal abnormalities noted. External auditory canals are clear. Oropharynx with no redness, swelling, or masses, exudates, or evidence of obstruction, uvula midline. Mucous membranes moist. Neck: Trachea midline, no thyromegaly or masses palpated, and no cervical lymphadenopathy. Supple, full range of motion without nuchal rigidity, or vertebral point tenderness. No Meningismus. Chest/axilla: Normal chest wall appearance and motion. Nontender with no deformity. No lesions are appreciated. Cardiovascular: Regular rate and rhythm with a normal S1 and S2. No gallops, murmurs, or rubs. Normal PMI, no JVD. No pulse deficits. Respiratory: Lungs have equal breath sounds bilaterally, clear to auscultation and percussion. No rales, rhonchi or wheezes noted. No increased work of breathing, no retractions or nasal flaring. Abdomen/GI: Soft, non-tender, with normal bowel sounds. No distension or tympany. No guarding or rebound. No evidence of tenderness throughout. Back: No spinal tenderness. No costovertebral tenderness. Full range of motion. Skin: Warm, dry with normal turgor. Normal color with no rashes, no lesions, and no evidence of cellulitis. MS/ Extremity: Pulses equal, no cyanosis. Neurovascular intact. Full, normal range of motion. Neuro: Awake and alert, GCS 15, oriented to person, place, time, and situation. Cranial nerves II-XII grossly intact. Motor strength 5/5 in all extremities. Sensory grossly intact. Cerebellar exam normal. Normal gait. 10:43 Psych: Patient visibly anxious however not responding to internal stimuli, not psychotic, and does not have suicidal or homicidal ideation.. Vital Signs: 10:44 BP 144 / 106; Pulse 107; Resp 19; Temp 98.2; Pulse Ox 97% on R/A; Weight 81.65 kg; iw Height 5 ft. 8 in. ; 10:44 Body Mass Index 27.37 (81.65 kg, 172.72 cm) iw MDM: 10:39 Patient medically screened. sp3 10:43 Data reviewed: vital signs, nurses notes, old medical records. ED course: Patient has sp3 no acute emergency at this time. I cannot prescribe him benzodiazepines at this time however we will give him 1 dose of diazepam p.o. and he can follow-up with his regular team for further refills.. Administered Medications: 10:53 Drug: Diazepam PO 5 mg PO once Route: PO; ld1 Disposition Summary: 07/20/23 10:44 Discharge Ordered Notes: Location: Home sp3 Condition: Stable sp3 Diagnosis - Anxiety sp3 Followup: sp3 - With: Private Physician - When: Upon discharge from the Emergency Department - Reason: Continuance of care Discharge Instructions: - Discharge Summary Sheet sp3 - Generalized Anxiety Disorder, Adult sp3 Forms: - Medication Reconciliation Form sp3 - Thank You Letter sp3 - Antibiotic Education sp3 - Prescription Opioid Use sp3 - Patient Portal Instructions sp3 - Leadership Thank You Letter sp3 Signatures: Gabi Paulson, RN RN iw Jackeline Brewer RN RN ld1 Izaiah Kilpatrick MD MD sp3
--- NOTE | 2023-07-20 10:45 | ER ---
Nurse's Notes [facility] Name: Anthony Au Age: 38 yrs Sex: Male : 1985 Arrival Date: 07/20/2023 Time: 10:33 Bed 19 Private MD: Diagnosis: Anxiety Presentation: 07/20 10:43 Chief complaint: Patient states: has been detoxing from xanax and suboxone, needs iw something to keep him calm until his appt Monday. Coronavirus screen: At this time, the client does not indicate any symptoms associated with coronavirus-19. Ebola Screen: Patient negative for fever greater than or equal to 101.5 degrees Fahrenheit, and additional compatible Ebola Virus Disease symptoms Patient denies exposure to infectious person. Patient denies travel to an Ebola-affected area in the 21 days before illness onset. No symptoms or risks identified at this time. Initial Sepsis Screen: Does the patient meet any 2 criteria? No. Patient's initial sepsis screen is negative. Does the patient have a suspected source of infection? No. Patient's initial sepsis screen is negative. Risk Assessment: Do you want to hurt yourself or someone else? Patient reports no desire to harm self or others. Onset of symptoms was July 20, 2023. 10:43 Method Of Arrival: Ambulatory iw 10:43 Acuity: MARKY 4 iw Triage Assessment: 10:55 General: Appears in no apparent distress. comfortable, Behavior is calm, cooperative, ld1 appropriate for age. Pain: Denies pain. EENT: No signs and/or symptoms were reported regarding the EENT system. Neuro: Level of Consciousness is awake, alert, obeys commands, Oriented to person, place, time, situation. Cardiovascular: Capillary refill < 3 seconds Patient's skin is warm and dry. Respiratory: Airway is patent Respiratory effort is even, unlabored. GI: Abdomen is flat, non-distended. : No signs and/or symptoms were reported regarding the genitourinary system. Derm: No signs and/or symptoms reported regarding the dermatologic system. Musculoskeletal: No signs and/or symptoms reported regarding the musculoskeletal system. Historical: - Allergies: 10:44 No Known Allergies; iw - PMHx: 10:44 Anxiety; Asthma; Bipolar disorder; Depression; detox seizures; scalp laceration repair.;iw - PSHx: 10:44 I\T\D; iw - Immunization history:: Client reports receiving the 2nd dose of the Covid vaccine. - Social history:: Smoking status: Patient reports the use of cigarette tobacco products. Screenin:53 [facility] ED Fall Risk Assessment (Adult) History of falling in the last 3 months, ld1 including since admission No falls in past 3 months (0 pts). Abuse screen: Denies threats or abuse. Denies injuries from another. Nutritional screening: No deficits noted. Tuberculosis screening: No symptoms or risk factors identified. Assessment: 10:53 Reassessment: See triage assessment. ld1 Vital Signs: 10:44 BP 144 / 106; Pulse 107; Resp 19; Temp 98.2; Pulse Ox 97% on R/A; Weight 81.65 kg; iw Height 5 ft. 8 in. ; 10:44 Body Mass Index 27.37 (81.65 kg, 172.72 cm) iw ED Course: 10:34 Patient arrived in ED. im 10:34 Izaiah Kilpatrick MD is Attending Physician. sp3 10:44 Triage completed. iw 10:44 Arm band placed on. iw 10:53 Jackeline Brewer, RN is Primary Nurse. ld1 10:53 Patient has correct armband on for positive identification. Placed in gown. Bed in low ld1 position. Call light in reach. Side rails up X2. Pulse ox on. NIBP on. Door closed. Noise minimized. Warm blanket given. 10:53 No provider procedures requiring assistance completed. Patient did not have IV access ld1 during this emergency room visit. Administered Medications: 10:53 Drug: Diazepam PO 5 mg PO once Route: PO; ld1 Medication: 10:53 VIS not applicable for this client. ld1 Outcome: 10:44 Discharge ordered by . sp3 10:53 Discharged to home ambulatory, ld1 10:53 Condition: good 10:53 Discharge instructions given to patient, Instructed on discharge instructions, follow up and referral plans. Demonstrated understanding of instructions, follow-up care, 10:56 Patient left the ED. ld1 Signatures: Gabi Paulson RN RN iw Jackeline Brewer RN RN ld1 Izaiah Kilpatrick MD MD sp3 Amy Bruce im
[2023-07-20] MEDS ORDERED: DIAZEPAM 5 MG TABLET ONE (11:02)
[2023-07-20 11:07] VITALS: BP 144/106; TEMP 98.2; O2SAT 97
== END 2023-07-20 10:56 | disposition home or self-care (01) ==
LOC: ER 10:33
DX: F41.9 Anxiety disorder, unspecified (principal); Z72.0 Tobacco use
CPT/HCPCS: 99283

== ENCOUNTER 2023-07-24 12:35 | Emergency (ER) | payer SELFPAY ==
--- OUTSIDE RECORDS SUMMARY | 2023-07-24 12:42 | XMS REPORT | Continuity of Care Document ---
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 mg tablet 00:00: 00:00 disorder, mouth 00 :00 currently every depressed, evening moderate OLANZapine No [id number] 5mg Take 1 El (ZYPREXA) 5 05-20 tablet by alth mg tablet 00:00: 00:00 mouth 00 :00 every evening OLANZapine No [id number] 5mg Take 1 [facility] (ZYPREXA) 5 05-20 tablet by alth mg tablet 00:00: 00:00 mouth 00 :00 every evening gabapentin No 300mg 300 mg Marcelino ris (NEURONTIN) 05-19 (3.68 Health capsule 300 18:16: 21:49 mg/kg), mg 00 :40 Oral, 3 TIMES DAILY, First dose on Lea 05/19/22 at 1816, Until Discontinu ed, STAT cephALEXin No Right wrist 500mg Take 1 [facility] (KEFLEX) 05-19 pain capsule by [facility] 500 mg 00:00: 00:00 mouth 4 capsule 00 :00 times daily for 10 days sulfamethox 2021- No Right wrist 1{tbl} Take 1 [facility] azole-trime 05-19 pain tablet by alth thoprim 00:00: 00:00 mouth (BACTRIM 00 :00 every 12 DS) 800-160 hours for mg tablet 10 days cephALEXin No Right wrist 500mg Take 1 [facility] (KEFLEX) 05-19 pain capsule by [facility] th 500 mg 00:00: 00:00 mouth 4 capsule 00 :00 times daily for 10 days sulfamethox 2021- No Right wrist 1{tbl} Take 1 [facility] azole-trime 05-19 pain tablet by alth thoprim 00:00: 00:00 mouth (BACTRIM 00 :00 every 12 DS) 800-160 hours for mg tablet 10 days cephALEXin 2021- No Right wrist 500mg Take 1 [facility] (KEFLEX) 05-19 pain capsule by [facility] th 500 mg 00:00: 00:00 mouth 4 capsule 00 :00 times daily for 10 days sulfamethox 2021- No Right wrist 1{tbl} Take 1 [facility] azole-trime 05-19 pain tablet by alth thoprim 00:00: 00:00 mouth (BACTRIM 00 :00 every 12 DS) 800-160 hours for mg tablet 10 days cephALEXin 2021- No [id number] 500mg Take 1 El (KEFLEX) 05-19 9100 capsule by [facility] 500 mg 00:00: 00:00 mouth 4 capsule 00 :00 times daily for 10 days sulfamethox 2021- No [id number] 1{tbl} Take 1 El azole-trime 05-19 9100 tablet by alth thoprim 00:00: 00:00 mouth (BACTRIM 00 :00 every 12 DS) 800-160 hours for mg tablet 10 days cephALEXin 2021- No [id number] 500mg Take 1 El (KEFLEX) 05-19 9100 capsule by [facility] 500 mg 00:00: 00:00 mouth 4 capsule 00 :00 times daily for 10 days sulfamethox 2021- No [id number] 1{tbl} Take 1 El azole-trime 05-19 9100 tablet by alth thoprim 00:00: 00:00 mouth (BACTRIM 00 :00 every 12 DS) 800-160 hours for mg tablet 10 days clonazePAM 2021- No Benzodiazep .25mg Q.5D Take 0.5 [facility] (KLONOPIN) 05-18 ine tablets by alth 0.5 mg 00:00: 00:00 withdrawal mouth 2 tablet 00 :00 without times complicatio daily n clonazePAM 2021- No Benzodiazep .25mg Q.5D Take 0.5 [facility] (KLONOPIN) 05-18- ine tablets by alth 0.5 mg 00:00: 00:00 withdrawal mouth 2 tablet 00 :00 without times complicatio daily n clonazePAM 2021- No Benzodiazep .25mg Q.5D Take 0.5 [facility] (KLONOPIN) 05-18- ine tablets by alth 0.5 mg 00:00: 00:00 withdrawal mouth 2 tablet 00 :00 without times complicatio daily n clonazePAM 2021- No [id number] .25mg Q.5D Take 0.5 [facility] (KLONOPIN) 05-18 tablets by He alth 0.5 mg 00:00: 00:00 mouth 2 tablet 00 :00 times daily FLUoxetine 2021-0 2021- No Bipolar 30mg QD Take 3 H arris (PROZAC) 10 05-18 affective capsules Health mg capsule 00:00: 00:00 disorder, by mouth 00 :00 currently daily depressed, moderate FLUoxetine 2021-0 2021- No Bipolar 30mg QD Take 3 H arris (PROZAC) 10 05-18 affective capsules Health mg capsule 00:00: 00:00 disorder, by mouth 00 :00 currently daily depressed, moderate FLUoxetine 2021-0 2021- No Bipolar 30mg QD Take 3 H arris (PROZAC) 10 05-18 affective capsules Health mg capsule 00:00: 00:00 disorder, by mouth 00 :00 currently daily depressed, moderate FLUoxetine 2021-0 2021- No [id number] 30mg QD Take 3 [facility] (PROZAC) 10 05-18 capsules Hea lth mg capsule 00:00: 00:00 by mouth 00 :00 daily OLANZapine 2021-0 2021- No 20mg QD Take 20 [...] Yes Multiple 1{tbl} Take 1 [facility] azole-trime -16 open wounds tablet by Health thoprim 00:00: of wrist mouth (BACTRIM 00 every 12 DS) 800-160 hours mg tablet gabapentin 2021- Yes Bipolar 300mg Take 1 H arris (NEURONTIN) - affective capsule by Health 300 mg 00:00: disorder, mouth 3 capsule 00 currently times depressed, daily moderate sulfamethox 2021-0 Yes Multiple 1{tbl} Take 1 [facility] azole-trime 8-16 open wounds tablet by [facility] thoprim 00:00: of wrist mouth (BACTRIM 00 every 12 DS) 800-160 hours mg tablet gabapentin 2021-0 Yes Bipolar 300mg Take 1 H arris (NEURONTIN) 8-16 affective capsule by [facility] 300 mg 00:00: disorder, mouth 3 capsule 00 currently times depressed, daily moderate sulfamethox 2021-0 Yes Multiple 1{tbl} Take 1 [facility] azole-trime 8-16 open wounds tablet by [facility] thoprim 00:00: of wrist mouth (BACTRIM 00 every 12 DS) 800-160 hours mg tablet gabapentin 2021-0 Yes Bipolar 300mg Take 1 H arris (NEURONTIN) 8-16 affective capsule by [facility] 300 mg 00:00: disorder, mouth 3 capsule 00 currently times depressed, daily moderate sulfamethox 2021-0 Yes [id number] 1{tbl} Take 1 Gal[facility] azole-trime 8-16 tablet by [facility] thoprim 00:00: mouth (BACTRIM 00 every 12 DS) 800-160 hours mg tablet gabapentin 2021-0 Yes [id number] 300mg Take 1 [facility] (NEURONTIN) 8-16 capsule by alth 300 mg 00:00: mouth 3 capsule 00 times daily sulfamethox 2021-0 Yes [id number] 1{tbl} Take 1 Gal[facility] azole-trime 8-16 tablet by [facility] thoprim 00:00: mouth (BACTRIM 00 every 12 DS) 800-160 hours mg tablet gabapentin 2-0 Yes [id number] 300mg Take 1 [facility] (NEURONTIN) 8-16 capsule by alth 300 mg 00:00: mouth 3 capsule 00 times daily sulfamethox 2021-0 Yes [id number] 1{tbl} Take 1 Gal[facility]os azole-trime 8-16 tablet by [facility] thoprim 00:00: mouth (BACTRIM 00 every 12 DS) 800-160 hours mg tablet gabapentin 2-0 Yes [id number] 300mg Take 1 [facility] (NEURONTIN) 8-16 capsule by alth 300 mg 00:00: mouth 3 capsule 00 times daily sulfamethox 2022-0 Yes [id number] 1{tbl} Take 1 Gallegos azole-trime 8-16 tablet by [facility] thoprim 00:00: mouth (BACTRIM 00 every 12 DS) 800-160 hours mg tablet gabapentin 2021-0 Yes [id number] 300mg Take 1 Gallegos (NEURONTIN) 8-16 capsule by [facility] 300 mg 00:00: mouth 3 capsule 00 times daily sulfamethox 2021-0 Yes Multiple 1{tbl} Take 1 Gallegos azole-trime 8-16 open wounds tablet by [facility] thoprim 00:00: of wrist mouth (BACTRIM 00 every 12 DS) 800-160 hours mg tablet gabapentin 2021-0 Yes Bipolar 300mg Take 1 H arris (NEURONTIN) 8-16 affective capsule by Health 300 mg 00:00: disorder, mouth 3 capsule 00 currently times depressed, daily moderate sulfamethox 2021-0 Yes Multiple 1{tbl} Take 1 Gal[facility] azole-trime 8-16 open wounds tablet by [facility] thoprim 00:00: of wrist mouth (BACTRIM 00 every 12 DS) 800-160 hours mg tablet gabapentin 2021-0 Yes Bipolar 300mg Take 1 H arris (NEURONTIN) 8-16 affective capsule by Health 300 mg 00:00: disorder, mouth 3 capsule 00 currently times depressed, daily moderate sulfamethox 2021-0 Yes Multiple 1{tbl} Take 1 Gal[facility] azole-trime 8-16 open wounds tablet by [facility] thoprim 00:00: of wrist mouth (BACTRIM 00 every 12 DS) 800-160 hours mg tablet gabapentin 2021-0 Yes Bipolar 300mg Take 1 H arris (NEURONTIN) 8-16 affective capsule by Health 300 mg 00:00: disorder, mouth 3 capsule 00 currently times depressed, daily moderate cephALEXin 2-0 2021- No Bipolar 500mg Take 1 [facility] (KEFLEX) 05-17 affective capsule by [facility] 500 mg 00:00: 23:59 disorder, mouth 4 capsule 00 :00 currently times depressed, daily for moderate 7 days cephALEXin 2-0 2021- No Bipolar 500mg Take 1 [facility] (KEFLEX) 05-17- affective capsule by [facility] 500 mg 00:00: 23:59 disorder, mouth 4 capsule 00 :00 currently times depressed, daily for moderate 7 days cephALEXin 2-0 2021- No Bipolar 500mg Take 1 [facility] (KEFLEX) 05-17 affective capsule by [facility] 500 mg 00:00: 23:59 disorder, mouth 4 capsule 00 :00 currently times depressed, daily for moderate 7 days cephALEXin 2021- No [id number] 500mg Take 1 [facility] (KEFLEX) 05-17 capsule by [facility] 500 mg 00:00: 23:59 mouth 4 capsule 00 :00 times daily for 7 days cephALEXin 2021- No [id number] 500mg Take 1 [facility] (KEFLEX) 05-17 capsule by [facility] 500 mg 00:00: 23:59 mouth 4 capsule 00 :00 times daily for 7 days OLANZapine 2021- No Bipolar 10mg Q.5D Take 1 H arris (ZYPREXA) 05-17 affective tablet by [facility] 10 mg 00:00: 00:00 disorder, mouth 2 tablet 00 :00 currently (two) depressed, times a moderate day OLANZapine No Bipolar 10mg Q.5D Take 1 H arris (ZYPREXA) 05-17 affective tablet by [facility] 10 mg 00:00: 00:00 disorder, mouth 2 tablet 00 :00 currently (two) depressed, times a moderate day OLANZapine No Bipolar 10mg Q.5D Take 1 H arris (ZYPREXA) 05-17 affective tablet by [facility] 10 mg 00:00: 00:00 disorder, mouth 2 tablet 00 :00 currently (two) depressed, times a moderate day OLANZapine No [id number] 10mg Q.5D Take 1 [facility] (ZYPREXA) 05-17 tablet by [facility] 10 mg 00:00: 00:00 mouth 2 tablet 00 :00 (two) times a day sulfamethox 2021- No Multiple 1{tbl} Take 1 [facility]legos azole-trime 05-11 [facility]00 of wrist mouth (BACTRIM 00 :00 every 12 DS) 800-160 hours for mg tablet 14 days cephALEXin 2021- No Multiple 500mg Take 1 [facility]legos (KEFLEX) 05-11 open wounds capsule by [facility] 500 mg 00:00: 00:00 of wrist mouth 4 capsule 00 :00 times daily for 14 days sulfamethox 2021- No Multiple 1{tbl} Take 1 Gallegos azole-trime 8-10 08-16 open wounds tablet by Health thoprim 00:00: 00:00 of wrist mouth (BACTRIM 00 :00 every 12 DS) 800-160 hours for mg tablet 14 days cephALEXin 2021- No Multiple 500mg Take 1 El (KEFLEX) 8- 08-16 open wounds capsule by [facility] 500 mg 00:00: 00:00 of wrist mouth 4 capsule 00 :00 times daily for 14 days sulfamethox 2021- No Multiple 1{tbl} Take 1 El azole-trime 8- 08-16 open wounds tablet by [facility] thoprim 00:00: 00:00 of wrist mouth (BACTRIM 00 :00 every 12 DS) 800-160 hours for mg tablet 14 days cephALEXin 2021- No Multiple 500mg Take 1 El (KEFLEX) 8- 08-16 open wounds capsule by [facility] 500 mg 00:00: 00:00 of wrist mouth 4 capsule 00 :00 times daily for 14 days nicotine Yes 1{patch 1 Patch, Un adam (NICODERM) 01-31 } Topical, ity o f 21 mg/24 hr 01:00: Administer [place] patch 1 00 over 24 Medical Patch Hours, Branch Q24H, First dose on [facility] 01/30/21 at 2000, Until Discontinu ed, Routine OLANZapine 2020- No 10mg 10 mg, Univ ers ZYDIS 01-30 Oral, ity of (ZyPREXA 23:15: 23:15 ONCE, 1 [place] ZYDIS) 00 :00 dose, [facility] Medical disintegrat 01/30/21 at [facility] ing tablet 1815, JONATHAN 10 mg NaCl 0.9% 2020- No 1000mL at 999 Uni vers (NS) bolus 01-30 mL/hr, ity of infusion 22:15: 23:27 1,000 mL, Antonio as 1,000 mL 00 :00 IV Medical Infusion, Branch ONCE, 1 dose, [facility] 01/30/21 at 1715, JONATHAN No known No Univers medications ity of [facility] Vital Signs Vital Name Observation Time Observation Value Comments Source Systolic blood 2022-06-06 18:12:17 130 mm[Hg] Univer sity of pressure [facility] Diastolic blood 2022-06-06 18:12:17 85 mm[Hg] Unive rsity of pressure [facility] Heart rate 2022-06-06 18:12:17 88 /min Universi ty [facility] Body temperature 2022-06-06 18:12:17 37.22 Franci Univ ersity of [facility] Respiratory rate 2022-06-06 18:12:17 18 /min [facility] Body height 2022-06-06 17:32:00 175.3 cm Universi ty [facility] Body weight 2022-06-06 17:32:00 97.523 kg Universi [facility] BMI 2022-06-06 17:32:00 31.75 kg/m2 [facility] Oxygen saturation in 2022-06-06 17:32:00 98 /min [facility] Arterial blood by [facility] Pulse oximetry [place] Systolic blood 2022-06-03 15:00:00 122 mm[Hg] [facility] pressure Diastolic blood 2022-06-03 15:00:00 79 mm[Hg] [facility] pressure Heart rate 2022-06-03 15:00:00 95 /min [facility] Body temperature 2022-06-03 15:00:00 36.78 Franci [facility] Respiratory rate 2022-06-03 15:00:00 18 /min [facility] Oxygen saturation in 2022-06-03 15:00:00 96 /min [facility] Arterial blood by Pulse oximetry Body height 2022-05-24 07:27:00 172.7 cm [facility] Body weight 2022-05-24 07:27:00 81.194 kg [facility] BMI 2022-05-24 07:27:00 27.22 kg/m2 [facility] Systolic blood 2022-06-03 15:00:00 122 mm[Hg] [facility] pressure Diastolic blood 2022-06-03 15:00:00 79 mm[Hg] [facility] pressure Heart rate 2022-06-03 15:00:00 95 /min [facility] Body temperature 2022-06-03 15:00:00 36.78 Franci [facility] Respiratory rate 2022-06-03 15:00:00 18 /min [facility] Oxygen saturation in 2022-06-03 15:00:00 96 /min [facility] Arterial blood by Pulse oximetry Body height 2022-05-24 07:27:00 172.7 cm [facility] Body weight 2022-05-24 07:27:00 81.194 kg [facility] BMI 2022-05-24 07:27:00 27.22 kg/m2 [facility] Systolic blood 2022-05-22 16:42:00 132 mm[Hg] [facility] pressure Diastolic blood 2022-05-22 16:42:00 82 mm[Hg] [facility] pressure Heart rate 2022-05-22 16:42:00 83 /min [facility] Body temperature 2022-05-22 16:42:00 36.39 Franci [facility] Respiratory rate 2022-05-22 16:42:00 17 /min [facility] Oxygen saturation in 2022-05-22 16:42:00 98 /min [facility] Arterial blood by Pulse oximetry Body height 2022-05-22 13:27:00 172.7 cm [facility] e[facility] Body weight 2022-05-22 13:27:00 81.647 kg [facility] e[facility] BMI 2022-05-22 13:27:00 27.37 kg/m2 [facility] Systolic blood 2022-05-19 19:46:00 136 mm[Hg] [facility] pressure Diastolic blood 2022-05-19 19:46:00 91 mm[Hg] [facility] pressure Heart rate 2022-05-19 19:46:00 101 /min [facility] Body temperature 2022-05-19 19:46:00 36.67 Franci [facility] [...] ealth Systolic blood 2022-05-19 19:46:00 136 mm[Hg] [facility] pressure Diastolic blood 2022-05-19 19:46:00 91 mm[Hg] [facility] pressure Heart rate 2022-05-19 19:46:00 101 /min [facility] Body temperature 2022-05-19 19:46:00 36.67 Franci [facility] Respiratory rate 2022-05-19 19:46:00 20 /min [facility] Oxygen saturation in 2022-05-19 19:46:00 100 /min [facility] Arterial blood by Pulse oximetry Body height 2022-05-19 12:32:00 172.7 cm [facility] Body weight 2022-05-19 12:32:00 81.647 kg [facility] BMI 2022-05-19 12:32:00 27.37 kg/m2 [facility] Systolic blood 2021-01-31 04:00:00 104 mm[Hg] Univer sity of [facility] Diastolic blood 2021-01-31 04:00:00 70 mm[facility]Hg[facility] 2021-01-31 04:00:00 59 /min [facility] Respiratory rate 2021-01-31 04:00:00 18 /min [facility] Oxygen saturation in 2021-01-31 04:00:00 99 /min University Arterial blood by [facility] Pulse oximetry Branch Body temperature 2021-01-30 21:51:00 37.22 Franci [facility] Body weight 2021-01-30 21:50:00 97.523 kg [facility] Systolic blood 2022-06-04 00:00:00 122 mm[Hg] [facility] pressure Diastolic blood 2022-06-04 00:00:00 87 mm[Hg] [facility] pressure Heart rate 2022-06-04 00:00:00 92 /min [facility] Body temperature 2022-06-04 00:00:00 36.89 Franci [facility] Respiratory rate 2022-06-04 00:00:00 18 /min [facility] Body height 2022-06-04 00:00:00 172.7 cm [facility] Body weight 2022-06-04 00:00:00 83.915 kg [facility] BMI 2022-06-04 00:00:00 28.13 kg/m2 [facility] Oxygen saturation in 2022-06-04 00:00:00 97 /min [facility] Arterial blood by Pulse oximetry Systolic blood 2022-05-23 08:00:00 125 mm[Hg] [facility] pressure Diastolic blood 2022-05-23 08:00:00 79 mm[Hg] [facility] pressure Heart rate 2022-05-23 08:00:00 79 /min [facility] Body temperature 2022-05-23 08:00:00 36.83 Franci [facility] Respiratory rate 2022-05-23 08:00:00 20 /min [facility] Oxygen saturation in 2022-05-23 08:00:00 95 /min [facility] Arterial blood by Pulse oximetry Body height 2022-05-19 11:13:00 172.7 cm [facility] Body weight 2022-05-19 11:13:00 81.557 kg [facility] BMI 2022-05-19 11:13:00 27.34 kg/m2 [facility] Procedures Procedure Date / Time Performing Clinician Source Performed CONSENT/REFUSAL FOR 2022-06-06 17:25:33 Doctor Unassigned, No Un [facility] DIAGNOSIS AND TREATMENT Name Medical Branch BASIC METABOLIC PANEL 2022-06-02 03:57:00 Heath Lawson [facility] Health BASIC METABOLIC PANEL 2022-06-02 03:57:00 Heath Lawson [facility] Health AMIKACIN, TROUGH LEVEL 2022-05-31 21:13:00 [facility], TROUGH LEVEL 2022-05-31 21:13:00 Sil Soliz [facility] Health WOUND/ABSCESS CULTURE 2022-05-31 08:53:00 Gabe Dunlap [facility] Health AND GRAM [employer]AIN [employer] STAIN AND CULTURE 2022-05-31 08:53:00 Gabe Dunlap [facility] Health ANAEROBE CULTURE 2022-05-31 08:53:00 Gabe Dunlap [facility] FUNGUS STAIN AND CULTURE 2022-05-31 08:53:00 Germán, [facility] AFB STAIN AND CULTURE 2022-05-31 08:53:00 [facility] ANAEROBE CULTURE 2022-05-31 08:53:00 Germán [facility] FUNGUS STAIN AND CULTURE 2022-05-31 08:53:00 Germán, [facility] WOUND/ABSCESS CULTURE 2022-05-31 08:53:00 Gabe Dunlap [facility] AND GRAM STAIN BASIC METABOLIC PANEL 2022-05-31 05:12:00 [facility] BASIC METABOLIC PANEL 2022-05-31 05:12:00 Ian [facility] GLUCOSE POC 2022-05-29 08:04:00 Lupe Burch [facility] th GLUCOSE POC 2022-05-29 08:04:00 Lupe Burch [facility] CBC (WITHOUT 2022-05-29 04:33:00 Heath Lawson ealth DIFFERENTIAL) BASIC METABOLIC PANEL 2022-05-29 04:33:00 [facility] BASIC METABOLIC PANEL 2022-05-29 04:33:00 [facility]ath [facility] CBC (WITHOUT 2022-05-29 04:33:00 Heath Lawson ealth DIFFERENTIAL) GLUCOSE POC 2022-05-28 16:49:00 Lupe Burch [facility] GLUCOSE POC 2022-05-28 16:49:00 Lupe Burch [facility] th GLUCOSE POC 2022-05-28 11:46:00 MarcinLupe ruano [facility] th GLUCOSE POC 2022-05-28 11:46:00 Lupe Burch [facility] th GLUCOSE POC 2022-05-28 08:24:00 MarcinLupe ruano [facility] th GLUCOSE POC 2022-05-28 08:24:00 Lupe Burch [facility] CBC (WITHOUT 2022-05-28 04:36:00 Heath Lawson ealth DIFFERENTIAL) BASIC METABOLIC PANEL 2022-05-28 04:36:00 Ian [facility] BASIC METABOLIC PANEL 2022-05-28 04:36:00 Ian [facility] CBC (WITHOUT 2022-05-28 04:36:00 LawsonIanHeath Jose [facility] DIFFERENTIAL) CBC (WITHOUT 2022-05-27 05:10:00 LawsonIanHeath Jose [facility] DIFFERENTIAL) BASIC METABOLIC PANEL 2022-05-27 05:10:00 Lawson [facility] AMIKACIN, RANDOM LEVEL 2022-05-27 05:10:00 MarcinLupe ruano is Health BASIC METABOLIC PANEL 2022-05-27 05:10:00 Lawson, [facility] CBC (WITHOUT 2022-05-27 05:10:00 Lawson, Hetah [facility] DIFFERENTIAL) AMIKACIN, RANDOM LEVEL 2022-05-27 05:10:00 MarcinLupe ruano is Health AMIKACIN, RANDOM LEVEL 2022-05-26 23:35:00 MarcinLupe is Health AMIKACIN, RANDOM LEVEL 2022-05-26 23:35:00 MarcinLupe [facility] AMIKACIN, TROUGH LEVEL 2022-05-26 05:53:00 Arash [facility] CBC (WITHOUT 2022-05-26 05:53:00 LawsonIanHeath H [facility] DIFFERENTIAL) BASIC METABOLIC PANEL 2022-05-26 05:53:00 Lawson [facility] BASIC METABOLIC PANEL 2022-05-26 05:53:00 Lawson [facility] CBC (WITHOUT 2022-05-26 05:53:00 LawsonIanHeath Jose [facility] DIFFERENTIAL) AMIKACIN, TROUGH LEVEL 2022-05-26 05:53:00 rAash Obando s Health CONSULT CLINICAL CASE 2022-05-25 14:55:14 Myles [facility] MANAGEMENT (RN/SW) CONSULT CLINICAL CASE 2022-05-25 14:55:14 Myles [facility]cano [facility] MANAGEMENT (RN/SW) CBC/DIFF 2022-05-25 08:24:00 Heath Lawson [facility] ealth BASIC METABOLIC PANEL 2022-05-25 08:24:00 Heath Lawson [facility] CBC 2022-05-25 08:24:00 Heath Lawson [facility] BASIC METABOLIC PANEL 2022-05-25 08:24:00 [facility]FF 2022-05-25 08:24:00 Heath Lawson ealt CBC 2022-05-25 08:24:00 Heath Lawson [facility] ANAEROBE CULTURE 2022-05-24 20:47:00 Germán [facility] WOUND/ABSCESS CULTURE 2022-05-24 20:47:00 [facility] AND GRAM STAIN ANAEROBE CULTURE 2022-05-24 20:47:00 Germán, [facility] WOUND/ABSCESS CULTURE 2022-05-24 20:47:00 Germ[facility], [facility] AND GRAM STAIN [employer] STAIN AND CULTURE 2022-05-24 15:44:00 [facility] FUNGUS STAIN [facility] CULTURE 2022-05-24 15:44:00 Germán, [facility] AFB STAIN AND CULTURE 2022-05-24 15:44[facility]00 [facility] 2022-05-24 15:44:00 [facility] INFUSION PUMP 2022-05-24 04:24:23 Lupe Burch [facility] INFUSION PUMP 2022-05-24 04:24:23 Lupe Burch [facility] CBC/DIFF 2022-05-24 04:22:[address] [facility] CBC 2022-05-24 04:22:[address] [facility] CBC/DIFF 2022-05-24 04:22:[address] [facility] CBC 2022-05-24 04:22:[address] [facility] HIV AG/AB COMBO 2022-05-23 18:44:00 Alissa Avitia [facility] DIAGNOSTIC/SYMPTOMATIC HEPATITIS PANEL 2022-05-23 18:44:00 Adore, Alissa Gallegos [facility] HEPATITIS PANEL 2022-05-23 18:44:00 Adore Alissa [facility] [facility] HIV AG/AB COMBO 2022-05-23 18:44:00 Adore, Alissa Gallegos [facility] DIAGNOSTIC/SYMPTOMATIC SARS-COV-2, FLU A/B, RSV 2022-05-23 15:41:00 Orlando Donald [facility] CORONAVIRUS, COVID-19, 2022-05-23 15:41:00 Odilon [facility] YOKASTA CORONAVIRUS, COVID-19, 2022-05-23 15:41[facility] SARS-COV-2, FLU A/B, RSV 2022-05-23 15:41:00 Orlando Donald [facility] BASIC METABOLIC PANEL 2022-05-23 11:25:[address] [facility] CBC/DIFF 2022-05-23 11:25:[address] [facility] CBC 2022-05-23 11:25:[address] [facility] SED RATE 2022-05-23 11:25:00 Orlando Donald [facility] C-REACTIVE PROT 2022-05-23 11:25:00 Orlando Donald [facility] BASIC METABOLIC PANEL 2022-05-23 11:25:[address] [facility] CBC/DIFF 2022-05-23 11:25:[address] [facility] C-REACTIVE PROT 2022-05-23 11:25:00 [facility] 2022-05-23 11:25:00 Orlando Donald [facility] CBC 2022-05-23 11:25:[address] [facility] LIMITED BEDSIDE 2022-05-23 11:08:27 Unknown, Provider El [facility] ULTRASOUND AFFILIATE HC POC URINE 2022-05-19 21:30:00 FaustoJennifer Franklin [facility] DRUG SCREEN AFFILIATE HC POC URINE 2022-05-19 21:30:00 Jennifer Alcala [facility] DRUG SCREEN I&D OF ABSCESS 2022-05-19 19:03:24 Chris Marrufo [facility]alt [facility] I&D OF ABSCESS 2022-05-19 19:03:24 Chris Marrufo [facility] WOUND/ABSCESS CULTURE 2022-05-19 18:54:00 Chris Marrufo [facility] AND GRAM STAIN WOUND/ABSCESS CULTURE 2022-05-19 18:54:00 Chris Marrufo Ella Gallegos [facility] AND GRAM STAIN XRAY FOREARM 2 VIEWS MIN 2022-05-19 17:04:37 Naomi Wells [facility] XRAY FOREARM 2 VIEWS MIN 2022-05-19 17:04:37 Russell, Naomi [facility] CBC/DIFF 2022-05-19 14:29:00 Naomi Wells [facility] BASIC METABOLIC PANEL 2022-05-19 14:29:00 Naomi Wells [facility] LACTIC ACID 2022-05-19 14:29:00 Naomi Wells [...] CBC 2022-05-19 14:29:00 Naomi Wells [facility] AFFILIATE HC POC URINE 2022-05-19 11:15:00 Jennifer Alcala [facility] DRUG SCREEN AFFILIATE HC POC URINE 2022-05-19 11:15:00 Jennifer Alcala [facility] DRUG SCREEN POC COVID-19 2022-05-17 17:50:00 Kerline Chambers h AFFILIATE HC POC URINE 2022-05-12 17:47:00 Rebel Case [facility] DRUG SCREEN AFFILIATE HC POC URINE 2022-05-12 17:47:00 Rebel Case [facility] DRUG SCREEN POC COVID-19 2022-05-11 23:56:00 Rebel Case ealth XRAY WRIST 3 VIEWS MIN 2022-05-11 17:04:00 Hanh Rodriguez [facility] CBC/DIFF 2022-05-11 16:20:00 Hanh Rodriguez alth BASIC METABOLIC PANEL 2022-05-11 16:20:00 Hanh Rodriguez [facility] HIV AG/AB COMBO ROUTINE 2022-05-11 16:20:00 Hanh Rodriguez [facility] SCREENING CBC 2022-05-11 16:20:00 Hanh Rodriguez alth URINE DRUG (IMMUNOASSAY) 2021-01-30 22:04:00 Shy Martin [facility] DRUG Medical [facility] SCREEN HEPATIC FUNCTION PANEL 2021-01-30 22:03:00 [id number] (ALB,T.PRO,BILI Medical Branch T,BU/BC,ALT,AST,ALK PHOS) BASIC METABOLIC PANEL 2021-01-30 22:03:00 Shy [facility] [place] (NA, K, CL, CO2, Medical Branch GLUCOSE, BUN, CREATININE, CA) SALICYLATE 2021-01-30 22:03:00 Shy [facility] ETHANOL 2021-01-30 22:03:00 [facility]y [facility] CBC WITH DIFF 2021-01-30 22:03:00 Shy [facility] URINALYSIS 2021-01-30 22:02:00 Shy [facility] COVID-19 (ID NOW RAPID 2021-01-30 22:02:00 [facility] NOTICE OF PRIVACY 2021-01-30 21:37:21 Doctor Unassigned, No [facility] [place] PRACTICES Name [facility] CONSENT/REFUSAL FOR 2021-01-30 21:37:00 Doctor Unassigned, No Un [facility] DIAGNOSIS AND TREATMENT Name Medical [facility] Plan of Care Planned Activity Planned Date Details Comments Source Future Scheduled Test 2023-07-[address] [facility] 00:00:00 (>/= 19 yrs) [code = IMM Influenza Seasonal (>/= 19 yrs)] Future Scheduled Test 2023-07-[address] [facility] 00:00:00 (>/= 19 yrs) [code = IMM Influenza Seasonal (>/= 19 yrs)] Future Scheduled Test 2023-06-[address] [facility] 00:00:00 (>/= 19 yrs) [code = IMM Influenza Seasonal (>/= 19 yrs)] Future Scheduled Test 2023-06-[address] [facility] 00:00:00 (>/= 19 yrs) [code = IMM Influenza Seasonal (>/= 19 yrs)] Future Scheduled Test 2022-07-[address] [facility] 00:00:00 (>/= 19 yrs) [code = IMM Influenza Seasonal (>/= 19 yrs)] Future Scheduled Test 2022-07-[address] [facility] 00:00:00 (>/= 19 yrs) [code = IMM Influenza Seasonal (>/= 19 yrs)] Future Scheduled Test 2022-07-[address] [facility] 00:00:00 (>/= 19 yrs) [code = IMM Influenza Seasonal (>/= 19 yrs)] Future Scheduled Test 1992 Imm Pneumococcal 0-64 [facility] 00:00:00 (1 - PCV) [code = Imm Pneumococcal 0-64 (1 - PCV)] Future Scheduled Test 1992 Imm Pneumococcal 0-64 [facility] 00:00:00 (1 - PCV) [code = Imm Pneumococcal 0-64 (1 - PCV)] Future Scheduled Test 1992 Imm Pneumococcal 0-64 [facility] 00:00:00 (1 - PCV) [code = Imm Pneumococcal 0-64 (1 - PCV)] Future Scheduled Test 1992 Imm Pneumococcal 0-64 [facility] 00:00:00 (1 - PCV) [code = Imm Pneumococcal 0-64 (1 - PCV)] Future Scheduled Test 1992 Imm Pneumococcal 0-64 [facility] 00:00:00 (1 - PCV) [code = Imm Pneumococcal 0-64 (1 - PCV)] Future Scheduled Test 1992 Imm Pneumococcal 0-64 [facility] 00:00:00 (1 - PCV) [code = Imm Pneumococcal 0-64 (1 - PCV)] Future Scheduled Test 1992 Imm Pneumococcal 0-64 [facility] 00:00:00 (1 - PCV) [code = Imm Pneumococcal 0-64 (1 - PCV)] Future Scheduled Test 1986 COVID-19 Vaccine (#1) [facility] 00:00:00 [code = COVID-19 Vaccine (#1)] Future Scheduled Test 1986 COVID-19 Vaccine (#1) [facility] 00:00:00 [code = COVID-19 Vaccine (#1)] Future Scheduled Test 1986 COVID-19 Vaccine (#1) [facility] 00:00:00 [code = COVID-19 Vaccine (#1)] Future Scheduled Test 1986 COVID-19 Vaccine (#1) [facility] 00:00:00 [code = COVID-19 Vaccine (#1)] Future Scheduled Test 1986 COVID-19 Vaccine (#1) [facility] 00:00:00 [code = COVID-19 Vaccine (#1)] Future Scheduled Test 1986 COVID-19 Vaccine (#1) [facility] 00:00:00 [code = COVID-19 Vaccine (#1)] Future Scheduled Test 1986 COVID-19 Vaccine (#1) [facility] 00:00:00 [code = COVID-19 Vaccine (#1)] Future Scheduled Test 1986 Fluoride Varnish [code [facility] 00:00:00 = Fluoride Varnish] Future Scheduled Test 1986 Fluoride Varnish [code [facility] 00:00:00 = Fluoride Varnish] Encounters Start End Encounter Admission Attending Care Care Encounter Source Date/Time Date/Time Type Type Clinicians Facility Department ID 2022-06-15 Outpatient [facility] [id number] [place] 12:36:[id number] [facility] 2022-06-14 Emergency HFD HFD [id number] SAMANTHA - 12:01:29 [place] [facility] 2022-06-06 Outpatient [facility] [id number] [place] 23:18:[id number] [facility] 2022-06-06 Outpatient [facility] [id number] [place] 23:16:[id number] [facility] 2022-04-06 Outpatient [facility] [id number] [place] 05:42:[id number] [facility] 2020-12-14 Inpatient [facility] [id number] [facility] 08:08:00 72 [facility] 2020-12-13 Inpatient [facility] LJ [id number] [facility] 19:49:00 20 [facility] 2020-12-06 Inpatient [facility] [id number] [facility] 14:30:44 66 [facility] 2022-06-24 2022-06-24 Office Mary FLOR [id number] El 08:00:00 08:30:00 Visit , Fanta [facility] [id number] [facility] .[id number] 2022-06-20 2022-06-20 Outpatient [facility] [id number] [place] 00:00:00 00:00:[address] [facility] 2022-06-06 2022-06-[address] [facility] ERT [id number] Univers 12:34:00 13:23:00 DANIEL manrique [facility] 2022-06-06 2022-06-06 [facility] [id number] Univers 12:34:00 13:23:00 Daniel [facility]13.10 [facility]686 [facility] [id number] [address] 2022-06-03 2022-06-04 Emergency JACK TOM [id number] [place] 00:00:00 22:29:00 GENERAL [id number] [facility] .[id number] [id number] 1369-09-02 2022-06-04 Emergency [facility] [id number] [place] 00:00:00 22:29:[address] [facility] 2022-06-03 2022-06-03 Outpatient [facility] [id number] [place] 23:37:47 23:59:[address] [facility] 2022-06-03 2022-06-03 Outpatient [facility] [id number] [place] 21:28:26 23:36:[address] [facility] 2022-05-23 2022-06-03 Hospital Jose F Reyes JACK SANTOS [id number] [place] 13:09:00 18:30:00 Encounter Marcin Lupe Boogie GENERAL [id number] [facility] .2.7.2.6869 [id number] 1252-08-29 2022-05-30 Inpatient [facility] [id number] [place] 16:04:37 16:04:[address] [facility] 2022-05-23 2022-05-23 [facility] [id number] [place] 13:09:00 13:09:00 [facility] 2022-05-22 2022-05-22 Emergency MariyaJACK [id number] [place] 19:04:00 20:39:[address] [facility] [id number] [facility] .[id number] [id number] 6010-08-18 2022-05-19 Emergency [facility] [id number] [place] 14:06:00 19:49:00 [facility] 2022-05-19 2022-05-19 Emergency JACK Petit [id number] [place] 14:06:00 19:49:[address] [place] [id number] [facility] .2.7.2.6869 [id number] 8316-08-18 2022-05-19 Emergency [facility] [id number] [place] 16:50:11 17:04:[address] [facility] 2022-05-18 2022-05-19 Inpatient [facility] [id number] [place] 10:13:00 10:30:[address] [facility] 2022-05-11 2022-05-18 [facility] [id number] [place] 22:33:18 09:43:[address] [facility] 2022-05-11 2022-05-11 Emergency Marisabel [facility] [id number] [place] 19:53:00 21:53:00 [facility] 2022-05-11 2022-05-11 Emergency Marisabel, [facility] [id number] [place] 19:53:00 21:53:00 [facility] 2022-05-11 2022-05-11 Emergency [facility] [id number] [place] 16:54:18 17:05:[address] [facility] 2022-05-11 2022-05-11 Emergency 1 [facility] [id number] [place] 16:05:00 16:05:[address] [facility] 2021-01-30 2021-01-30 Emergency [facility] [id number] [facility] 16:48:00 23:59:00 Shy Morelos 350.1.13.10 ity [facility] 4.2.7.2.686 [facility] [id number] [address] 2021-01-30 2021-01-30 Emergency [facility] ERT [id number] Univers 16:48:00 16:48:00 SHY manrique [facility] 2021-01-30 2021-01-30 Orders Doctor JAKE [id number] [id number] Univers 00:00:00 00:00:00 Only Unassigned, ESTEFANY 350.1.13.10 [facility] [place] [facility] 4.2.7.2.686 [facility] [id number] [facility] 009 Branch 2020-03-03 2020-03-03 Emergency X [facility] ERT [id number] Univers 09:37:00 09:37:00 ity [facility] Results Test Description Test Time Test Comments Results Result Comments Source AFB Stain & Culture 2022-07-19 11:04:16 Test Item Value Reference Range Interpretation Comme nts AFB Culture (test code = 543-9) No acid fast bacilli isolated in 6 weeks AFB Stain (test code = 676-7) No acid fast bacilli seen TRACY (test code = TRACY) Reference value: No acid fast bacilli isolate d Gallegos [facility] & [id number] 11:04:16 Test Item Value Reference Range Interpretation Comments AFB Culture (test code No acid fast bacilli = 543-9) isolated in 6 weeks AFB Stain (test code = No acid fast bacilli 676-7) seen TRACY (test code = TRACY) Reference value: No acid fast bacilli isolated [place] [facility] [id number] 11:04:16 Test Item Value Reference Range Interpretation Comments AFB Culture (test code No acid fast bacilli = 543-9) isolated in 6 weeks AFB Stain (test code = No acid fast bacilli 676-7) seen TRACY (test code = TRACY) Reference value: No acid fast bacilli isolated [place] [facility]AF[facility] Stain & [id number] 21:02:46 Test Item Value Reference Range Interpretation Comments AFB Culture (test code No acid fast bacilli = 543-9) isolated in 6 weeks AFB Stain (test code = No acid fast bacilli 676-7) seen TRACY (test code = TRACY) Reference value: No acid fast bacilli isolated [place] HealthAFB Stain & [id number] 21:02:45 Test Item Value Reference Range Interpretation Comments AFB Culture (test code No acid fast bacilli = 543-9) isolated in 6 weeks AFB Stain (test code = No acid fast bacilli 676-7) seen TRACY (test code = TRACY) Reference value: No acid fast bacilli isolated [place] [facility]AFB Stain & [id number] 20:02:40 Test Item Value Reference Range Interpretation Comments AFB Culture (test code No acid fast bacilli = 543-9) isolated in 6 weeks AFB Stain (test code = No acid fast bacilli 676-7) seen TRACY (test code = TRACY) Reference value: No acid fast bacilli isolated [place] HealthFungus Stain & [id number] 19:03:24 Test Item Value Reference Range Interpretation Comments Fungus Culture (test No fungus isolated in 4 code = 580-1) weeks Fungus Stain (test No fungal elements seen code = 658-5) TRACY (test code = TRACY) Reference value: No fungus isolated [place] HealthFungus Stain & [id number] 19:03:24 Test Item Value Reference Range Interpretation Comments Fungus Culture (test No fungus isolated in 4 code = 580-1) weeks Fungus Stain (test No fungal elements seen code = 658-5) TRACY (test code = TRACY) Reference value: No fungus isolated [place] HealthFungus Stain & [id number] 19:03:24 Test Item Value Reference Range Interpretation Comments Fungus Culture (test No fungus isolated in 4 code = 580-1) weeks Fungus Stain (test No fungal elements seen code = 658-5) TRACY (test code = TRACY) Reference value: No fungus isolated [facility] HealthFungus Stain & [id number] 05:04:44 Test Item Value Reference Range Interpretation Comments Fungus Culture (test No fungus isolated in 4 code = 580-1) weeks Fungus Stain (test No fungal elements seen code = 658-5) TRACY (test code = TRACY) Reference value: No fungus isolated [facility] [id number] 05:04:43 Test Item Value Reference Range Interpretation Comments Fungus Culture (test No fungus isolated in 4 code = 580-1) weeks Fungus Stain (test No fungal elements seen code = 658-5) TRACY (test code = TRACY) Reference value: No fungus isolated [facility] [id number] 04:04:04 Test Item Value Reference Range Interpretation Comments Fungus Culture (test No fungus isolated in 4 code = 580-1) weeks Fungus Stain (test No fungal elements seen code = 658-5) TRACY (test code = TRACY) Reference value: No fungus isolated [facility] [id number] 06:33:06 Test Item Value Reference Range Interpretation Comments Anaerobe Culture (test No anaerobes isolated code = 635-3) in 5 days TRACY (test code = TRACY) Reference value: No anaerobes isolated [facility] [id number] 06:33:06 Test Item Value Reference Range Interpretation Comments Anaerobe Culture (test No anaerobes isolated code = 635-3) in 5 days TRACY (test code = TRACY) Reference value: No anaerobes isolated [facility] [id number] 06:33:06 Test Item Value Reference Range Interpretation Comments Anaerobe Culture (test No anaerobes isolated code = 635-3) in 5 days TRACY (test code = TRACY) Reference value: No anaerobes isolated [facility] [id number] 06:33:06 Test Item Value Reference Range Interpretation Comments Anaerobe Culture (test No anaerobes isolated code = 635-3) in 5 days TRACY (test code = TRACY) Reference value: No anaerobes isolated [place] HealthWound/Abscess Culture & Gram [id number] 08:20:27 Test Item Value Reference Range Interpretation Comments Wound Culture (test No growth 3 days code = 6463-4) Gram Stain (test No organisms seen code = 664-3) TRAYC (test code = Reference value: TRACY) Non-sterile sites may be contaminated with esperanza that is considered normal or otherwise not clinically relevant. As appropriate, normal results will indicate the presence or absence of such esperanza. Otherwise, the reference value is considered "No growth". [place] HealthWound/Abscess Culture & Gram [id number] 08:20:27 Test Item Value Reference Range Interpretation [...] the reference value is considered "No growth". [place] HealthWound/Abscess Culture & Gram [id number] 08:20:27 Test Item Value Reference Range Interpretation [...] the reference value is considered "No growth". [place] HealthWound/Abscess Culture & Gram [id number] 08:20:27 Test Item Value Reference Range Interpretation [...] the reference value is considered "No growth". [place] HealthWound/Abscess Culture & Gram [id number] 10:37:20 Test Item Value Reference Range Interpretation Comments Wound Culture (test 1+ Acid fast AA REFER TO code = 6463-4) bacilli [id number] Gram Stain (test code No organisms seen = 664-3) TRACY (test code = TRACY) Reference value: Non-sterile sites may be contaminated with esperanza that is considered normal or otherwise not clinically relevant. As appropriate, normal results will indicate the presence or absence of such esperanza. Otherwise, the reference value is considered "No growth". Lab Interpretation Abnormal (test code = 72448-3) [facility] [id number] 10:37:20 Test Item Value Reference Range Interpretation Comments Bacteria Spec ACID-FAST AA 1+ Acid fast Cult (test code = BACILLUS bacilliREF ER TO 6463-4) [id number] Reference value: Non-sterile sites may be contaminated with esperanza that is considered normal or otherwise not clinically relevant. As appropriate, normal results will indicate the presence or absence ofsuch esperanza. Otherwise, the reference value is considered "No growth".HHSWound/Abscess Culture & Gram [id number] 10:36:38 Test Item Value Reference Range Interpretation Comments Wound Culture (test Acid fast bacilli AA REF ER TO code = 6463-4) [id number] Gram Stain (test code No organisms seen = 664-3) TRACY (test code = TRACY) Reference value: Non-sterile sites may be contaminated with esperanza that is considered normal or otherwise not clinically relevant. As appropriate, normal results will indicate the presence or absence of such esperanza. Otherwise, the reference value is considered "No growth". Lab Interpretation Abnormal (test code = 48053-4) [facility] [id number] 10:36:38 Test Item Value Reference Range Interpretation Comments Bacteria Spec ACID-FAST AA Acid fast Cult (test code = BACILLUS bacilliREF ER TO 6463-4) [id number] Reference value: Non-sterile sites may be contaminated with esperanza that is considered normal or otherwise not clinically relevant. As appropriate, normal results will indicate the presence or absence ofsuch esperanza. Otherwise, the reference value is considered "No growth".HHSWound/Abscess Culture & Gram [id number] 10:35:39 Test Item Value Reference Range Interpretation Comments Wound Culture (test Acid fast bacilli AA REF ER TO code = 6463-4) [id number] Gram Stain (test code No organisms seen = 664-3) TRACY (test code = TRACY) Reference value: Non-sterile sites may be contaminated with esperanza that is considered normal or otherwise not clinically relevant. As appropriate, normal results will indicate the presence or absence of such esperanza. Otherwise, the reference value is considered "No growth". Lab Interpretation Abnormal (test code = 85727-0) [facility] [id number] 10:35:39 Test Item Value Reference Range Interpretation Comments Bacteria Spec ACID-FAST AA Acid fast Cult (test code = BACILLUS bacilliREF ER TO 6463-4) [id number] Reference value: Non-sterile sites may be contaminated with esperanza that is considered normal or otherwise not clinically relevant. As appropriate, normal results will indicate the presence or absence ofsuch esperanza. Otherwise, the reference value is considered "No growth".[facility] [id number] 09:36:58 Test Item Value Reference Range Interpretation Comments Anaerobe Culture (test No anaerobes isolated code = 635-3) in 5 days TRACY (test code = TRACY) Reference value: No anaerobes isolated [facility] [id number] 09:36:11 Test Item Value Reference Range Interpretation Comments Anaerobe Culture (test No anaerobes isolated code = 635-3) in 5 days TRACY (test code = TRACY) Reference value: No anaerobes isolated [facility] [id number] 09:35:49 Test Item Value Reference Range Interpretation Comments Anaerobe Culture (test No anaerobes isolated code = 635-3) in 5 days TRACY (test code = TRACY) Reference value: No anaerobes isolated [facility] GLUCOSE POC docked [id number] 08:05:41 Test Item Value Reference Range Interpretation Comments Glucose POC (test code = 107 mg/dL 74-106 H MD patient navigator Notified [id number]) Lab Interpretation (test Abnormal code = 40538-0) [place] [email or web address].[email or web address] GLUCOSE POC docked [id number] 08:05:41 Test Item Value Reference Range Interpretation Comments Glucose POC (test code = 107 mg/dL 74-106 H MD patient navigator Notified [id number]) Lab Interpretation (test Abnormal code = 16694-6) [facility]ed [id number] 08:05:41 Test Item Value Reference Range Interpretation Comments Glucose POC (test code = 107 mg/dL 74-106 H MD patient navigator Notified [id number]) Lab Interpretation (test Abnormal code = 74655-3) [facility] docked [id number] 08:05:41 Test Item Value Reference Range Interpretation Comments Glucose POC (test code = 107 mg/dL 74-106 H MD patient navigator Notified [id number]) Lab Interpretation (test Abnormal code = 20730-7) [facility]ed [id number] 16:50:48 Test Item Value Reference Range Interpretation Comments Glucose POC (test code = 67082032) 107 mg/dL 74-106 H Lab Interpretation (test code = Abnormal 19694-9) [facility] docked [id number] 11:46:44 Test Item Value Reference Range Interpretation Comments Glucose POC (test code = 94215680) 89 mg/dL 74-106 Lab Interpretation (test code = Normal 72859-9) [facility]ed [id number] 08:25:07 Test Item Value Reference Range Interpretation Comments Glucose POC (test code = 09850713) 83 mg/dL 74-106 Lab Interpretation (test code = Normal 06703-0) [facility] [id number] 14:19:13 Test Item Value Reference Range Interpretation Comments Bacteria Spec Cult ACID-FAST BACILLUS AA 4+ Acid fast (test code = bacilli 6463-4) HHSHIV 1+2 Ab+HIV1 p24 Ag SerPl Ql [id number] 19:49:40 Test Item Value Reference Range Interpretation Comments HIV 1+2 Ab+HIV1 p24 Ag SerPl Ql [place] NEGATIVE Negative (test code = 76344-3) HHSCoronavirus, CoVID-19, [id number] 16:40:22 Test Item Value Reference Interpretation Comments Range COVID-19 Not Detected Not Detected INTERPRETATION: (SARS-COV-2) (test No detect able code = 95207-6) levels of SARS-CoV-2 Coronavirus (COVID-19) were present [...] its performance characteristics were verified by the [facility] molecular diagnostics laboratory and is authorized for clinical diagnostic use. This laboratory is certified under the Clinical Laboratory Improvement Amendments (CLIA) as qualified to perform high complexity clinical laboratory testing. Lab Interpretation Normal (test code = 40812-1) [facility] [id number] 16:40:22 Test Item Value Reference Interpretation Comments Range COVID-19 Not Detected Not Detected INTERPRETATION: (SARS-COV-2) (test No detect able code = 51732-8) levels of SARS-CoV-2 Coronavirus (COVID-19) were present [...] its performance characteristics were verified by the [facility] molecular diagnostics laboratory and is authorized for clinical diagnostic use. This laboratory is certified under the Clinical Laboratory Improvement Amendments (CLIA) as qualified to perform high complexity clinical laboratory testing. Lab Interpretation Normal (test code = 74682-0) [place] Col[facility]avirus, CoVID-19, [id number] 16:40:22 Test Item Value Reference Interpretation Comments Range COVID-19 Not Detected Not Detected INTERPRETATION: (SARS-COV-2) (test No detect able code = 19779-4) levels of SARS-CoV-2 Coronavirus (COVID-19) were present [...] its performance characteristics were verified by the [facility] molecular diagnostics laboratory and is authorized for clinical diagnostic use. This laboratory is certified under the Clinical Laboratory Improvement Amendments (CLIA) as qualified to perform high complexity clinical laboratory testing. Lab Interpretation Normal (test code = 38119-6) [place], CoVID-19, [id number] 16:40:22 Test Item Value Reference Interpretation Comments Range COVID-19 Not Detected Not Detected INTERPRETATION: (SARS-COV-2) (test No detect able code = 51036-0) levels of SARS-CoV-2 Coronavirus (COVID-19) were present [...] its performance characteristics were verified by the [facility] molecular diagnostics laboratory and is authorized for clinical diagnostic use. This laboratory is certified under the Clinical Laboratory Improvement Amendments (CLIA) as qualified to perform high complexity clinical laboratory testing. Lab Interpretation Normal (test code = 50369-6) [facility]-CoV-2 RNA Resp Ql [id number] 16:40:22 Test Item Value Reference Range Interpretation Comments Hospitalized? (test No code = 28516-1) ICU? (test code = No 17179-1) Symptomatic as defined No by CDC? (test code = 42671-4) Employed in Unknown Healthcare? (test code = 04630-4) Resident in a Unknown congregate care setting (including nursing homes, residential care for people with intellectual and developmental disabilities, psychiatric treatment facilities, group homes, board and care homes, homeless fdc, foster care or other): (test code = 09971-9) SARS-CoV-2 RNA Resp Ql NOT DETECTED Not Detected INTER PRETATION: No YOKASTA+probe (test code = detec table levels 47403-2) of SARS-CoV-2 Coronavirus (COVID-19) were present in [...] its performance characteristics were verified by the [facility] molecular diagnostics laboratory and is authorized for clinical diagnostic use. This laboratory is certified under the Clinical Laboratory Improvement Amendments (CLIA) as qualified to perform high complexity clinical laboratory testing.HHSHIV 1+2 Ab+HIV1 p24 Ag SerPl Ql [id number] 17:45:02 Test Item Value Reference Range Interpretation Comments HIV 1+2 Ab+HIV1 p24 Ag SerPl Ql [place] NEGATIVE Negative (test code = 62803-7) [id number] 23:16:25 Test Item Value Reference Range Interpretation Comments SALICYLATE (test code <10 mg/L = 3737033991) TRACY (test code = TRACY) Therapeutic Range: ? Analgesic and Antipyretic Use ? 20-100 mg/L ? ? Anti-Inflammatory Use ? 100-250 mg/L Toxic Range: ? Greater than 300 mg/L [facility]15 Test Item Value Reference Range Interpretation Comments ALCOHOL (test code = <10 mg/dL 0534816598) TRACY (test code = TRACY) <10 Tyokllgb57-013 Toxic>100 Depression of HELPER/DRIVER>400 Fatalities Reported [facility] CenterACET[facility]INOPHEN2021-[facility] 23:16:10 Test Item Value Reference Range Interpretation Comments ACETAMINOP (test code = <10.0 10.0-30.0 L 1003144419) TRACY (test code = TRACY) Toxic: Greater than 200 ug/mL @ 4 hour post ingestion or greater than 50 ug/mL @ 12 hour post ingestion Lab Interpretation (test Abnormal code = 43904-6) [facility] (ALB, T.PRO, BILI T, BU/BC, ALT, AST, ALK PHOS)2021-01-30 23:14:14 Test Item Value Reference Range Interpretation Comments TOTAL BILI (test code = 8650012673) 0.8 mg/dL 0.1-1.1 BILI UNCON (test code = 3665165243) 0.6 mg/dL 0.1-1.1 BILI CONJ (test code = 9695459670) 0.0 mg/dL 0.0-0.3 T PROTEIN (test code = 0395668262) 7.5 g/dL 6.3-8.2 ALBUMIN (test code = 1673609539) 4.8 g/dL 3.5-5.0 ALK PHOS (test code = 7965871051) 63 U/L 34-122 ALTv (test code = 1742-6) 33 U/L 5-50 AST(SGOT) (test code = 5719150105) 36 U/L 13-40 Lab Interpretation (test code = Normal 59474-1) [facility] Metabolic Panel (NA, K, CL, CO2, GLUCOSE, BUN, CREATININE, CA)2021-01-30 23:13:54 Test Item Value Reference Range Interpretation Comments NA (test code = 142 mmol/L 135-145 2242486941) K (test code = 4.3 mmol/L 3.5-5.0 4006050009) CL (test code = 105 mmol/L 98-108 8636216096) CO2 TOTAL (test code 25 mmol/L 23-31 = 4333385578) AGAP (test code = 2-16 8198987760) BUN (test code = 17 mg/dL 7-23 3579178437) GLUCOSE (test code = 86 mg/dL 70-110 9976702333) CREATININE (test code 0.85 mg/dL 0.60-1.25 = 8000921370) CALCIUM (test code = 9.9 mg/dL 8.6-10.6 4255140802) eGFR (test code = mL/min/1.73m2 1902121103) TRACY (test code = TRACY) Association of [...] or urine or abnormalities in imaging tests). [facility] Center[facility] (IMMUNOASSAY) - COMPREHENSIVE DRUG [id number] 23:05:57 Test Item Value Reference Range Interpretation Comments AMPHET (test code = Presumptive Positive Negative A 7521956952) CHACORTA U (test code = Negative Negative 3196600027) BENZO U (test code = Presumptive Positive Negative A 9202278599) Cocaine Metabolite (test Negative Negative code = 9604553290) METHADONE (test code = Negative Negative 4445690077) OPIATES (test code = Presumptive Positive Negative A 2279950987) PCP (test code = Negative Negative 8652148510) THC (test code = Presumptive Positive Negative A 9424722233) TRACY (test code = TRACY) Urine Drug [...] testing). 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 It is used under Emergency [...] indicated. Lab Interpretation Normal (test code = 83772-4) [facility] CenterUrinalysis20[facility]-05-[facility] 22:30:19 Test Item Value Reference Range Interpretation Comments APPEARANCE (test code = Clear Clear 5656659437) COLOR (test code = Yellow Yellow 1631181365) PH (test code = 4.8-8.0 6225955508) SP GRAVITY (test code = 1.003-1.030 3711004849) GLU U QUAL (test code = Normal Normal 3995428882) BLOOD (test code = Negative Negative 0678197680) KETONES (test code = Negative Negative 1047585420) PROTEIN (test code = Negative Negative 2887-8) UROBILIN (test code = 2.0 mg/dL Normal A 6256604533) BILIRUBIN (test code = Negative Negative 6042015780) NITRITE (test code = Negative Negative 2735908515) LEUK DIONE (test code = Negative Negative 9109247623) RBC/HPF (test code = See_Comment [Autom ated message] 5228461718) The system [employer] generated this result transmit delroy reference range : 0 - 3 HPF. The refe rence range was not u sed to interpret th is result as normal/abnormal . WBC/HPF (test code = <1 See_Comment [Autom ated message] 0504627457) The system [facility] [facility] generated this result transmit delroy reference range : 0 - 5 HPF. The refe rence range was not u sed to interpret th is result as normal/abnormal . BACTERIA (test code = Negative Negative 3351655196) SQ EPITH (test code = <1 HPF 0523174230) Lab Interpretation (test Abnormal code = 69637-9) [facility] with [id number] 22:19:35 Test Item Value Reference Range Interpretation Comments WBC (test code = See_Comment H [Automated 2590-2) message] The sy stem which generated this [...] RDW-SD (test code = 42.8 fL 38.5-51.6 01299-3) RDW-CV (test code = 13.3 % 12.1-15.4 788-0) PLT (test code = See_Comment H [Automated 777-3) message] The sy stem which generated this result transmitted reference range : 150 - 328 10*3/ ?L. The reference r maru was not used to interpret this result as normal/abnormal . MPV (test code = 9.9 fL 9.8-13.0 87327-1) NRBC/100 WBC (test See_Comment [Automat ed code = 6819788020) message] The system which generated this result transmitted reference range : 0.0 - 10.0 /100 WBCs. The refer ence range was not u sed to interpret th is result as normal/abnormal . NRBC x10^3 (test code <0.01 See_Comment [Auto mated = 7881366076) message] The s ystem which generated this result transmitted reference range : 10*3/?L. The reference range was not used to interpret this result as normal/abnormal . GRAN MAT (NEUT) % 79.2 % (test code = 770-8) IMM GRAN % (test code 0.50 % = 3042021762) LYMPH % (test code = 14.8 % 736-9) MONO % (test code = 4.9 % 5905-5) EOS % (test code = 0.2 % 713-8) BASO % (test code = 0.4 % 706-2) GRAN MAT x10^3(ANC) 9.77 10*3/uL 1.99-6.95 H (test code = 8079590737) IMM GRAN x10^3 (test 0.06 10*3/uL 0.00-0.06 code = 4718747455) LYMPH x10^3 (test code 1.82 10*3/uL 1.09-3.23 = 731-0) MONO x10^3 (test code 0.60 10*3/uL 0.36-1.02 = 742-7) EOS x10^3 (test code = 0.03 10*3/uL 0.06-0.53 L 711-2) BASO x10^3 (test code 0.05 10*3/uL 0.01-0.09 = 704-7) Lab Interpretation Abnormal (test code = 36849-3) [facility] [id number] 20:48:00 Test Item Value Reference Range Interpretation Comments COVID 19 INHOUSE AG (test code = NEGATIVE [id number]) URINALYSIS [id number] 16:11:00 Test Item Value Reference Range Interpretation [...] Urine Source? Clean CatchDRUGS OF ABUSE SCREEN [id number] 16:11:00 Test Item Value Reference Range Interpretation Comments URN COCAINE (test code = NEGATIVE See_Comment [A utomated message] COCAURN) The system [employer] h generated this result transmitted ref erence [...] See_Comment [A utomated message] OPIATURN) The system [facility] generated this result transmitted ref erence range: [...] [A utomated message] = METHAURN) The system [facility] [facility] generated this result transmitted ref erence range: <300 ng/ mL. The reference r maru was not used to interpret this result as normal/abnor mal. Urine Source? Clean CatchURINALYSIS [id number] 15:45:00 Test Item Value Reference Range Interpretation [...] Urine Source? Clean CatchDRUGS OF ABUSE SCREEN [id number] 15:45:00 Test Item Value Reference Range Interpretation Comments URN COCAINE (test code = NEGATIVE See_Comment [A utomated message] COCAURN) The system [facility] generated this result transmitted ref erence range: [...] See_Comment [A utomated message] OPIATURN) The system [facility] generated this result transmitted ref erence range: [...] [A utomated message] = METHAURN) The system [employer] h generated this result transmitted ref erence range: <300 ng/ mL. The reference r maru was not used to interpret this result as normal/abnor mal. Urine Source? Clean CatchURINALYSIS [id number] 14:21:00 Test Item Value Reference Range Interpretation [...] Urine Source? Clean CatchDRUGS OF ABUSE SCREEN [id number] 14:21:00 Test Item Value Reference Range Interpretation Comments URN COCAINE (test code = See_Comment [A utomated message] COCAURN) The system [facility] generated this result transmitted ref erence range: [...] See_Comment [Automated message] = AMPHETURN) The system [facility] [facility] generated this result transmitted ref erence range: <1000 ng /mL. The reference r maru was not used to interpret this result as normal/abnor mal. URN BARBITURATE (test code See_Comment [Automated message] = BARBITURN) The system [facility] generated this result transmitted ref erence range: [...] See_Comment [A utomated message] OPIATURN) The system [facility] generated this result transmitted ref erence range: [...] = See_Comment [Automated message] METHAURN) The system [facility] generated this result transmitted ref erence range: <300 ng/ mL. The reference range was not used to int erpret this result as normal/abnormal . Urine Source? Clean CatchURINALYSIS [id number] 14:18:00 Test Item Value Reference Range Interpretation [...] Urine Source? Clean CatchDRUGS OF ABUSE SCREEN [id number] 14:18:00 Test Item Value Reference Range Interpretation Comments URN COCAINE (test code = See_Comment [A utomated message] COCAURN) The system [facility] [facility] generated this result transmitted ref erence range: [...] See_Comment [Automated message] = AMPHETURN) The system [facility] [facility] generated this result transmitted ref erence range: <1000 ng /mL. The reference r maru was not used to interpret this result as normal/abnor mal. URN BARBITURATE (test code See_Comment [Automated message] = BARBITURN) The system [facility] [facility] generated this result transmitted ref erence range: [...] See_Comment [A utomated message] OPIATURN) The system [facility] [facility] generated this result transmitted ref erence range: <300 ng/ mL. The reference range was not used to int erpret this result as normal/abnormal . URN PHENCYCLIDINE (PCP) See_Comment [Au tomated message] (test code = PHENCURN) The s [employer] which generated this result transmitted ref erence range: <25 ng/m L. The reference range was not used to int erpret this result as normal/abnormal . URN METHADONE (test code = See_Comment [Automated message] METHAURN) The system [facility] generated this result transmitted ref erence range: <300 ng/ mL. The reference range was not used to int erpret this result as normal/abnormal . Urine Source? Clean CatchBASIC METABOLIC [id number] 12:13:00 Test Item Value Reference Range Interpretation [...] >3 months. [Automated mess age] The system [facility] [facility] generated this result transmitted ref erence range: >=60. Th e reference range was not used to int erpret this result as normal/abnormal . CREATININE (test 1.00 mg/dL 0.7-1.3 N code = CREAT) BUN/CREATININE RATIO 17.3 10-20 N (test code = BUN/CREA) CALCIUM (test code = 9.9 mg/dL 8.5-10.1 N CA) HEPATIC FUNCTION [id number] 12:13:00 Test Item Value Reference Range Interpretation [...] range due ALKP) to change in reagent. [id number] 12:13:00 Test Item Value Reference Range Interpretation Comments ACETAMINOPHEN (test < 10 mcg/mL 10-30 L A RANGE OF 10-30 code = ACET) mcg/mL IS A THERAPEUTIC RAN GE. TOXIC CONCENTRATIONS: >150 mcg/mL AT 4 ANTONIO RS AFTER INGESTION >= 50 mcg/mL AT 12 HOURS AFTER INGESTION [id number] 12:13:00 Test Item Value Reference Range Interpretation Comments SALICYLATE (test code = RENALDO) < 3.0 mg/dL 2.8-20.0 N [id number] 12:13:00 Test Item Value Reference Range Interpretation [...] CHARGE TO THE P ATIENT. CBC W/O [id number] 11:49:00 Test Item Value Reference Range Interpretation [...] 6.7-11.0 N = MPV) COVID 19 INHOUSE [id number] 00:12:00 Test Item Value Reference Range Interpretation Comments COVID 19 INHOUSE AG (test code = NEGATIVE [id number]) URINALYSIS [id number] 20:58:00 Test Item Value Reference Range Interpretation [...] Urine Source? Clean CatchDRUGS OF ABUSE SCREEN [id number] 20:58:00 Test Item Value Reference Range Interpretation Comments URN COCAINE (test code = NEGATIVE See_Comment [A utomated message] COCAURN) The system [facility] [facility] generated this result transmitted ref erence range: [...] See_Comment [A utomated message] OPIATURN) The system [facility] [facility] generated this result transmitted ref erence range: [...] [A utomated message] = METHAURN) The system [facility] [facility] generated this result transmitted ref erence range: <300 ng/ mL. The reference r maru was not used to interpret this result as normal/abnor mal. Urine Source? Clean CatchBASIC METABOLIC [id number] 20:58:00 Test Item Value Reference Range Interpretation [...] Estimated GFR b y FILTRATION RATE using [facility] (test code = GFR) formula. ron kidney disease is defined as eith er kidney damageor GFR <60 mL/min/1.73 m2 for >3 months. [Automated mess age] The system [facility] [facility] generated this result transmitted ref erence range: >=60. Th e reference range was not used to int erpret this result as normal/abnormal . CREATININE (test 0.80 mg/dL 0.7-1.3 N code = CREAT) BUN/CREATININE RATIO 19.3 10-20 N (test code = BUN/CREA) CALCIUM (test code = 8.8 mg/dL 8.5-10.1 N CA) HEPATIC FUNCTION [id number] 20:58:00 Test Item Value Reference Range Interpretation [...] range due ALKP) to change in reagent. [id number] 20:58:00 Test Item Value Reference Range Interpretation Comments TROPONIN-I (test code = TROPI) < 0.006 ng/mL 0-0.045 N [id number] 20:58:00 Test Item Value Reference Range Interpretation Comments ACETAMINOPHEN (test < 10 mcg/mL 10-30 L A RANGE OF 10-30 code = ACET) mcg/mL IS A THERAPEUTIC RAN GE. TOXIC CONCENTRATIONS: >150 mcg/mL AT 4 ANTONIO RS AFTER INGESTION >= 50 mcg/mL AT 12 HOURS AFTER INGESTION [id number] 20:58:00 Test Item Value Reference Range Interpretation Comments SALICYLATE (test code = RENALDO) < 3.0 mg/dL 2.8-20.0 N [id number] 20:58:00 Test Item Value Reference Range Interpretation [...] [facility]IN W/O [id number] 20:52:00 [facility])Name: TEJ GUADALUPE : 1985 Sex: M Name: TEJ GUADALUPE [facility] : 1985 Age/S: 35 / M [address] [facility] Unit #: [id number] Loc: DEISY Saenz [address] Phys: Shaggy Morrow MD Acct: [id number] Dis Date: Status: PRE ER PHONE #: [phone] Exam Date: 12/13/20202017 FAX #: [phone] Reason: CONFUSION EXAMS: CPT CODE: [id number] CT HEAD/BRAIN W/O CONT 76159 HISTORY: CONFUSION TECHNIQUE: Noncontrast 2.5 mm axial [...] IMPRESSION: Negative CT head. Location: RR at 2052 Reported and signed by: Tano Gauthier MD CC: Shaggy Morrow MD Technologist:Camilo Staley, RT(R)(CT) CTDI: DLP: Trnscb Date/Time: 12/13/2020 (2051) JeannetteRR31 Orig Print D/T: S: 12/13/2020(2054) PAGE 1 Signed Report URINALYSIS [id number] 20:39:00 Test Item Value Reference Range Interpretation [...] Urine Source? Clean CatchDRUGS OF ABUSE SCREEN [id number] 20:39:00 Test Item Value Reference Range Interpretation Comments URN COCAINE (test code = See_Comment [A utomated message] COCAURN) The system [employer] generated this result transmitted ref erence range: [...] See_Comment [Automated message] = AMPHETURN) The system [facility] generated this result transmitted ref erence range: <1000 ng /mL. The reference r maru was not used to interpret this result as normal/abnor mal. URN BARBITURATE (test code See_Comment [Automated message] = BARBITURN) The system [facility] generated this result transmitted ref erence range: [...] See_Comment [A utomated message] OPIATURN) The system [facility] generated this result transmitted ref erence range: [...] = See_Comment [Automated message] METHAURN) The system [facility] generated this result transmitted ref erence range: <300 ng/ mL. The reference range was not used to int erpret this result as normal/abnormal . Urine Source? Clean CatchURINALYSIS [id number] 20:29:00 Test Item Value Reference Range Interpretation [...] Urine Source? Clean CatchDRUGS OF ABUSE SCREEN [id number] 20:29:00 Test Item Value Reference Range Interpretation Comments URN COCAINE (test code = See_Comment [A utomated message] COCAURN) The system [facility] generated this result transmitted ref erence range: [...] See_Comment [Automated message] = AMPHETURN) The system [facility] generated this result transmitted ref erence range: <1000 ng /mL. The reference r maru was not used to interpret this result as normal/abnor mal. URN BARBITURATE (test code See_Comment [Automated message] = BARBITURN) The system [facility] generated this result transmitted ref erence range: [...] See_Comment [A utomated message] OPIATURN) The system [facility] generated this result transmitted ref erence range: [...] = See_Comment [Automated message] METHAURN) The system [facility] generated this result transmitted ref erence range: <300 ng/ mL. The reference range was not used to int erpret this result as normal/abnormal . Urine Source? Clean CatchCBC W/O [id number] 20:22:00 Test Item Value Reference Range Interpretation [...] Notes Date/Time Note Provider Source 2022-06-01 16:47:23 5810-57-61V36:47:23Associated Sil Mondragon [facility] Order(s): CONSULT TO [facility] System PHARMACY-AMINOGLYCOSIDESFormatt ing of this note is [...] with any questions. Sil Soliz, Pharm.D., BCIDPClinical Web Publisher - Infectious DiseasesCisco: [id number] signed by Sil Soliz [facility] at 06/01/2022 4:48 PM [id number] bmzqNP6682-04-33V00:48:27Consul t noteTXT1.2.840.142085.1.13.43.2 .7.2.332937|[id number] for patient besj19649-8Xofudxh [id number] Jelani Soliz [address] [id number] 1TWNZ7472-12-47I48:48:271.2.840 .833472.1.72.3.15|1.2.840.88117 0.1.13.43.2.7.2.727879_23014037 31 2022-05-31 16:00:25 4843-42-38B93:00:25Formatting [facility] of this note is different from S saimatem the original.Pharmacy Aminoglycoside Monitoring NoteIndication: NTM SSTI/abscessDay [...] with any questions. Sil Soliz, Pharm.D., BCIDPClinical Web Publisher - Infectious DiseasesCisco: [id number] signed by Sil Soliz [facility] at 05/31/2022 4:00 PM [id number] auejQK3780-81-45E64:00:59Consul t noteTXT1.2.840.047213.1.13.43.2 .7.2.844619|[id number] for patient bkoe72025-0Oymkgsw [facility] [place], [place] [address]LmuvGksaobzYsbexlyODXB786925457 8PYHN5798-95-40Q16:00:591.2.840 .865510.1.72.3.15|1.2.840.16645 0.1.13.43.2.7.2.727879_23004519 47 2022-05-30 14:28:02 9894-47-05F66:28:02Formatting [facility] of this note is different from S saimaemilym the original.Pharmacy Aminoglycoside Monitoring NoteIndication: NTM SSTI/abscessDay [...] with any questions. Sil Soliz, Pharm.D., BCIDPClinical Web Publisher - Infectious DiseasesCisco: [id number] signed by Sil Soliz [facility] at 05/30/2022 2:36 PM [id number] bqkyPI5591-58-56A15:36:01Consul t noteTXT1.2.840.975167.1.13.43.2 .7.2.227259|[id number] for patient cgzn98474-5Evttaqj noteGlen Cove Hospital[address] [facility] Hospit[id number] 3OSDE4676-67-40B23:36:011.2.840 .869432.1.72.3.15|1.2.840.19440 0.1.13.43.2.7.2.727879_22993779 11 2022-05-29 12:08:26 4011-96-01O12:08:26Formatting Mariam reyes [facility] of this note is different from [facility] S carolinem the original.Pharmacy Aminoglycoside Monitoring NoteIndication: [...] contact us with any questions. Mariam Lepe [facility].BCOPClinical Web Publisher Hematology/OncologyCisco : [phone] signed by Mariam Lepe [facility] at 05/29/2022 12:09 PM [id number] qnojTX1927-94-89E90:09:49Consul t noteTXT1.2.840.317013.1.13.43.2 .7.2.297916|[id number] for patient vupj67913-7Yzvbmxg [id number] Rostane [address] [id number] 9ENMY9079-82-10P04:09:491.2.840 .089686.1.72.3.15|1.2.840.23348 0.1.13.43.2.7.2.727879_[id number] 42 2022-05-28 10:27:53 6364-50-51X63:27:53Formatting [facility] of this note is different from S sarah the original.Pharmacy Aminoglycoside Monitoring NoteIndication: NTM SSTI/abscessDay of therapy: 4 Target concentration: dosing per [place] nomogram, targeting goal peak ~25-45 mcg/mL, trough [...] contact us with any questions. Mariam Lepe [facility].BCOPClinical Web Publisher Hematology/OncologyCisco : [phone] signed by Mariam Lepe [facility] at 05/28/2022 10:29 AM [id number] pnuzBR4406-33-29B89:29:36Consul t noteTXT1.2.840.091264.1.13.43.2 .7.2.218151|[id number] for patient dxst33097-1Wrakiyu noteGlen Cove Hospital2525 [facility] Hospit[id number] 8QCFE6176-91-50Q94:29:361.2.840 .421880.1.72.3.15|1.2.840.21140 0.1.13.43.2.7.2.727879_[id number] 61 2022-05-27 12:23:47 4434-13-60X87:23:47Formatting Ruchi Olsen [facility] of this [facility] is [facility].Pharmacy Aminoglycoside Monitoring NoteIndication: NTM SSTI/abscessDay of therapy: 3 Target concentration: dosing per [place] nomogram, targeting goal peak ~25-45 mcg/mL, trough [...] us with any questions. Ruchi Olsen, PharmD, [facility] HOSPITALCPPhone: [phone] signed by Ruchi Olsen, [facility] at 05/27/2022 1:04 PM [id number] wmftKK1494-75-54C41:04:50Consul t noteTXT1.2.840.193598.1.13.43.2 .7.2.337370|[id number] for patient uhxm28291-8Zkmtvdj [id number] Sigmon [id number] 1WQVP9911-46-76T57:04:501.2.840 .175658.1.72.3.15|1.2.840.09079 0.1.13.43.2.7.2.727879_[id number] 11 2022-05-26 09:18:39 4270-77-33E76:18:39Formatting [facility] of this note is different from S [place] the original.Pharmacy Aminoglycoside Monitoring NoteIndication: NTM SSTI/abscessDay of therapy: 2 Target concentration: dosing per [place] nomogram, targeting goal peak ~25-45 mcg/mL, trough ~5 mcg/mL Concomitant antibiotics: Azithromycin, tigecyclineAllergies: No known allergies Pertinent Objective Labs: Date dose/frequency concentration (peak/trough/random) 05/26 800mg q24h 5.9 (9h random) Microbiology:pending Assessment:1. CrCl: >120,Scr/BUN stable, 2. Continues on amikacin 800mg (10mg/kg) q24h 3. Random 9h level obtained today demonstrates dose appropriate per [place] nomogramPlan: 1. Will Continue current dose2. Labs Ordered: will order 2 levels: 2-h and 8-h post dose levels to confirm Thank you for the opportunity to participate in the care of this patient. Please do not hesitate to contact us with any questions. Ruchi Olsen, PharmD, [facility] HOSPITALCPPhone: [phone] signed by Ruchi Olsen, [facility] at 05/26/2022 9:36 AM MFC66906-2Daqomjh vrivCO5783-82-58S62:36:50Consul t noteTXT1.2.840.666785.1.13.43.2 .7.2.908923|[id number] for patient kcdx23707-7Johknlv [facility]2525 [facility] Hospit[id number] 4ZVLF1338-63-85B28:36:501.2.840 .280910.1.72.3.15|1.2.840.46095 0.1.13.43.2.7.2.727879_[id number] 20 2022-05-25 08:07:02 6231-18-38D20:07:02Associated [facility] Order(s): IP CONSULT TO System INFECTIOUS [...] another attempt at antibiotics and I&D at [facility]. He came back with worsening lesions and was admitted for same. We are consulted for his cultures growing AFB 4+. This chronic wound not responding to antibiotics is typical for an NTM infection and we will attempt to treat#NTM infection, cutaneous- I have discussed with Ludwig, isolate will be sent immediately to [facility] for ID and sensis- growth from a [...] follow this fascinating caseArash Obando MD, PhD [facility] Infectious DiseasesProvider #[id number] 2021 8:09 AM H istory Obtained From: [...] homeless. He has not travelled outside of [place] recently and does not have any sick [...] and documented in the appropriate sections in [employer].Immunization history: There is no immunization history on [...] Data: All labs, images, and data reviewed. 08007-2Kkhyjhi zrnyIR4166-87-99W13:04:27Consul t noteTXT1.2.840.794069.1.13.43.2 .7.2.623688|[id number] for patient nsqr42463-4Drmglfo noteGlen Cove Hospital2525 [facility] Hospit[id number] 4KUWH6598-59-27U75:04:271.2.840 .873555.1.72.3.15|1.2.840.73644 0.1.13.43.2.7.2.727879_[id number] 10 2022-05-23 21:39:21 4601-41-06K40:39:21[facility] Order(s): IP CONSULT TO HAND Sys [...] and negative- PRS will continue to followChristopher Germán, MDPlastic and Reconstructive Surgery, DTL1DluaahSan Dimas Community HospitalPager: [phone] 2021 9:39 PMSubjective: Chief Complaint: forearm painHistory [...] with no changes. No need to repeat 78660-7Vwszkto xazmME808283DjmmktmrzsAdrian Anderson B1.2.840.149933.1.13.43.2.7.2.8 47058RkdsquifqmBtqubPfsxz BED3045-92-97A46:42:00Consult noteTXT1.2.840.751005.1.13.43.2 .7.2.853944|[id number] for patient wusj58139-6Mhmqjbr noteGlen Cove Hospital[address] [place], [place] [address]Jleo[id number] 1XWKD0694-07-40Q28:50:061.2.840 .149996.1.72.3.15|1.2.840.68155 0.1.13.43.2.7.2.727879_[id number] 43 History and Physical Notes Date/Time Note Provider Source 2022-05-23 22:01:59 4154-92-99U01:01:59Formatting [facility] of this note is different System from [...] CODEEmergency Contact: Primary Emergency Contact: Jake GUADALUPE, QwscbKaiser Foundation Hospital ADP1Ozshob[address] [place], [place] [address]10:02 PM, 05/23/2022 Chief Complaint: forearm pain History [...] alert and orientedLabs & Imaging: reviewed in [facility]. ssociated attestation - Hank Kilpatrick MD - 05/24/2022 2:10 AM CDT Please see my separate note for my attestation.05597-7Hlcorhu and physical rhycSF187928Kteef, Vishal1.2.840.080290.1.13.43. 2.7.2.301645HkzrkHwuvtgS, BC9806-17-15E14:10:26History and physical noteTXT1.2.840.153794.1.13.43 .2.7.2.027676|[id number] ilable for patient rijl73309-4Chprfjs and physical noteLNInternal MedicineInternal MedicineTwin City Hospital2525 [facility] Hospit[id number] 032JPWM7631-03-88K07:10:261.2 .840.710161.1.72.3.15|1.2.840 .641204.1.13.43.2.7.2.727879_ [id number] Procedure Notes Date/Time Note Provider Source 2022-05-31 08:35:51 9179-57-46K20:35:51Procedure(s): I& D [facility] OF ABSCESS WITH PACKING System (COMPLICATED)Pre-Procedure [...] no complicationsChristopher JUAN Dunlaplastic and Reconstructive Surgery, RMO9ZcuzstSan Dimas Community HospitalPager: [phone] 2021 8:36 AM 61560-4Labakexwb cdtfLH444987TfKrysta1.2.840.851745.1.13.43.2.7.2.83 6583IhAmrjadYP7630-50-35V14:00:54Proc edure noteTXT1.2.840.159297.1.13.43.2.7.2.7 59849|[id number] for patient yzlh20384-5Uiqqnxrti noteLNTwin City Hospital2525 Natalie BushHwqmJmzijcjDwqjdlgQGWP2432067327ITYD8 674-37-85R02:49:121.2.840.944916.1.72 .3.15|1.2.840.248702.1.13.43.2.7.2.72 7879_[id number] 2022-05-24 16:29:09 7046-83-28E37:29:09Procedure(s): I& D [facility] OF ABSCESS WITH PACKING System (COMPLICATED); [...] 1Dressings: AppliedEstimated Blood Loss: MinimalSpecimens Collected: Culture h0Aechzipluxaye: nonePrimary Proceduralist: MULU Carrilloupervising Physician: JUAN Andersonrocedure [...] and sent to the microbiology lab.Gabe Dunlap, R[facility]LL MEDICAL CENTERlastic and Reconstructive Surgery, HFT8Ievpqz[address] [place], [place] [address]Pager: [phone] 2021 4:30 PM 39143-3Triewswwp fqjpNB283718LwawexpvjnAdrian Anderson B1.2.840.473501.1.13.43.2.7.2.725940K Aaron ODZ5654-85-12T28:42:01Procedure noteTXT1.2.840.900621.1.13.43.2.7.2.7 96191|[id number] for patient mzfx57412-0Blwqzjabm noteLNTwin City Hospital2525 [facility] HospitalXqy[id number] 354-58-14O85:41:491.2.840.461083.1.72 .3.15|1.2.840.080463.1.13.43.2.7.2.72 7879_[id number]
[2023-07-24] MEDS ORDERED: DIAZEPAM 5 MG TABLET ONE (13:26)
--- NOTE | 2023-07-24 14:00 | RAD REPORT ---
EXAM DESCRIPTION: CT - Head Brain Wo Cont - 07/24/2023 1:45 pm CLINICAL HISTORY: Slurred speech COMPARISON: 2019 TECHNIQUE: Computed axial tomography of the head was obtained. IV contrast was not requested. All CT scans are performed using dose optimization technique as appropriate and may include automated exposure control or mA/KV adjustment according to patient size. FINDINGS: An intracranial bleed is not seen The ventricles are normal in caliber No significant hypodense areas within the brain visualized No extra-axial fluid collection is noted. Fluid within the sinuses/ mastoids is not seen IMPRESSION: No acute intracranial abnormality is seen If patient's symptoms persist MRI of the brain would be recommended
--- NOTE | 2023-07-24 14:09 | EDPHYS ---
Physician Documentation [facility] Name: Anthony Au Age: 38 yrs Sex: Male : 1985 Arrival Date: 07/24/2023 Time: 12:35 Bed 10 Private MD: ED Physician Fernandez Manzano HPI: 07/24 12:44 This 38 yrs old Male presents to ER via Ambulatory with complaints of jh7 Withdrawl, High Blood Pressure. 12:44 Onset: The symptoms/episode began/occurred 1 week(s) ago. Associated signs and jh7 symptoms: Pertinent positives: anxiety, Pertinent negatives: abdominal pain, chest pain, fever, headache, shortness of breath, sore throat. Patient reports that he is withdrawing from benzodiazepines and opioids. He is requesting Vicodin and 2 Klonopins. His mother reports that she is concerned that he could have had a stroke because he appeared confused 2 days ago and had changes in his speech. He was sent from his psychiatrist office for high blood pressure and tachycardia.. Historical: - Allergies: 12:47 No Known Allergies; cm10 - PMHx: 12:47 Anxiety; Asthma; Bipolar disorder; Depression; detox seizures; scalp laceration repair.;cm10 - PSHx: 12:47 I\T\D; cm10 - Immunization history:: Adult Immunizations up to date. - Social history:: Smoking status: Patient reports the use of cigarette tobacco products, smokes one pack cigarettes per day. Patient uses street drugs, marijuana, Xanax. ROS: 12:44 Constitutional: Negative for fever, chills, and weight loss, Eyes: Negative for injury, jh7 pain, redness, and discharge, Neck: Negative for injury, pain, and swelling, Cardiovascular: Negative for chest pain, palpitations, and edema, Respiratory: Negative for shortness of breath, cough, wheezing, and pleuritic chest pain, Abdomen/GI: Negative for abdominal pain, nausea, vomiting, diarrhea, and constipation, MS/Extremity: Negative for injury and deformity, Skin: Negative for injury, rash, and discoloration, 12:44 Neuro: Positive for speech changes, Negative for gait disturbance, syncope, visual changes, 12:44 Psych: Positive for anxiety, drug dependence, Negative for auditory hallucinations, homicidal ideation, suicide gesture, suicidal ideation, 12:44 All other systems are negative, Exam: 12:44 Constitutional: This is a well developed, well nourished patient who is awake, alert, jh7 and in no acute distress. Head/Face: Normocephalic, atraumatic. 12:44 Eyes: Pupils equal round and reactive to light, extra-ocular motions intact. Lids and lashes normal. Conjunctiva and sclera are non-icteric and not injected. Cornea within normal limits. Periorbital areas with no swelling, redness, or edema. Cardiovascular: Regular rate and rhythm with a normal S1 and S2. No gallops, murmurs, or rubs. Normal PMI, no JVD. No pulse deficits. Respiratory: Lungs have equal breath sounds bilaterally, clear to auscultation and percussion. No rales, rhonchi or wheezes noted. No increased work of breathing, no retractions or nasal flaring. Skin: Warm, dry with normal turgor. Normal color with no rashes, no lesions, and no evidence of cellulitis. MS/ Extremity: Pulses equal, no cyanosis. Neurovascular intact. Full, normal range of motion. Neuro: Awake and alert, GCS 15, oriented to person, place, time, and situation. Cranial nerves II-XII grossly intact. Motor strength 5/5 in all extremities. Sensory grossly intact. Cerebellar exam normal. Normal gait. 12:44 ENT: TM's: are normal, Vital Signs: 12:44 BP 148 / 109; Pulse 116; Resp 18 S; Temp 97.8(TE); Pulse Ox 98% on R/A; Weight 79.38 kg cm10 (R); Height 5 ft. 8 in. (R); Pain 0/10; 14:07 BP 153 / 97; Pulse 91; Resp 18; Pulse Ox 98% on R/A; hb 12:44 Body Mass Index 26.61 (79.38 kg, 172.72 cm) cm10 12:44 Pain Scale: Adult cm10 NIH Stroke Scale Scores: 12:44 NIHSS Score: 0 jh7 MDM: 12:45 Patient medically screened. [facility] 14:10 Differential diagnosis: Substance abuse, benzodiazepine withdrawal, general anxiety, 7 panic attack. Data reviewed: vital signs, nurses notes, radiologic studies, CT scan. I considered the following discharge prescriptions or medication management in the emergency department Medications were administered in the Emergency Department. See MAR. Counseling: I had a detailed discussion with the patient and/or guardian regarding the historical points, exam findings, and any diagnostic results supporting the discharge/admit diagnosis, the need for outpatient follow up, a psychiatrist, to return to the emergency department if symptoms worsen or persist or if there are any questions or concerns that arise at home. Response to treatment: the patient's symptoms have markedly improved after treatment. Special discussion: CT performed due to patient and parent request. Informed them of negative results. Advised follow-up at a detox facility.. 07/24 13:28 Order name: CT Head Brain wo Cont; Complete Time: 14:05 7 07/24 14:05 Order name: VS Recheck; Complete Time: 14:07 [facility] Administered Medications: 13:21 Drug: Diazepam PO 5 mg PO once Route: PO; iw 14:30 Follow up: Response: No adverse reaction hb Disposition: 19:02 Co-signature as Attending Physician, Fernandez Manzano MD I reviewed the patient's care rn provided by the Advanced Practice Provider and agree with the diagnosis and treatment plan. Disposition Summary: 07/24/23 14:09 Discharge Ordered Notes: Location: Home [facility] Problem: an ongoing problem [facility] Symptoms: have improved [facility] Condition: Stable [facility] Diagnosis - Generalized anxiety disorder [facility] - Medication refill [facility] Followup: [facility] - With: Private Physician - When: 2 - 3 days - Reason: Recheck today's complaints Discharge Instructions: - Discharge Summary Sheet [facility] - Generalized Anxiety Disorder, Adult [facility] - Benzodiazepine Withdrawal [facility] - Managing Anxiety, Adult [facility] Forms: - Medication Reconciliation Form [facility] - Thank You Letter [facility] - Patient Portal Instructions [facility] - Leadership Thank You Letter [facility] NIH Stroke Scale - NIH Stroke Score Date: 07/24/2023 Time: 12:44 Total Score = 0 10. Dysarthria (speech clarity - read or repeat words) - 0(Normal) 11. Extinction and Inattention (visual/tactile/auditory/spatial/personal) - 0(No abnormality) 1a. Level of Consciousness (LOC) - 0(Alert) 1b. Level of Consciousness (LOC) (Month \T\ Age) - 0(Both) 1c. LOC Commands (Open \T\ Closes Eyes/Aviculturist) - 0(Both) 2. Best Gaze (Lateral Gaze Paresis) - 0(Normal) 3. Visual Field Loss - 0(No visual loss) 4. Facial Palsy - 0(Normal) 5a. Left Arm: Motor (10-second hold) - 0(No drift) 5b. Right Arm: Motor (10-second hold) - 0(No drift) 6a. Left Leg: Motor (5-second hold - always test supine) - 0(No drift) 6b. Right Leg: Motor (5-second hold - always test supine) - 0(No drift) 7. Limb Ataxia (finger/nose \T\ heel/miner - test with eyes open) - 0(Absent) 8. Sensory Loss (pinprick arms/legs/face) - 0(Normal) 9. Best Language: Aphasia (description/naming/reading) - 0(No aphasia) Initials: [facility] Signatures: Dispatcher [employer] Gabi Pollock, RN VINI iw Fernandez Manzano MD MD rn Hadash, Jennifer, REPLENISHMENT ANALYST REPLENISHMENT ANALYST [facility] Georgina Ruffin RN RN 10 Jessie Hinojosa RN hb
--- NOTE | 2023-07-24 14:09 | ER ---
Nurse's Notes [facility] Name: Anthony Au Age: 38 yrs Sex: Male : 1985 Arrival Date: 07/24/2023 Time: 12:35 Bed 10 Private MD: Diagnosis: Generalized anxiety disorder;Medication refill Presentation: 07/24 12:44 Chief complaint: Parent and/or Guardian states: here for withdrawal from Benzos and cm10 Opioids. Last used about 1 week ago. Pt's mom states that she did an at home drug test this morning and was positive for THC and benzos. Pt complaining of not being able to hear and high blood pressure. Pt was sent over by Psychiatrist Dr. Molina. Coronavirus screen: Vaccine status: Patient reports receiving the 2nd dose of the covid vaccine. Client denies travel out of the [place] in the last 14 days. Ebola Screen: Patient denies travel to an Ebola-affected area in the 21 days before illness onset. No symptoms or risks identified at this time. Initial Sepsis Screen: Does the patient meet any 2 criteria? No. Patient's initial sepsis screen is negative. Does the patient have a suspected source of infection? No. Patient's initial sepsis screen is negative. Risk Assessment: Do you want to hurt yourself or someone else? Patient reports no desire to harm self or others. Onset of symptoms was July 24, 2023. 12:44 Method Of Arrival: Ambulatory cm10 12:44 Acuity: MARKY 3 cm10 Triage Assessment: 12:47 General: Appears uncomfortable, Behavior is anxious. Pain: Denies pain. Neuro: No cm10 deficits noted. Level of Consciousness is awake, alert, obeys commands, Oriented to person, place, time, situation. 12:48 Respiratory: No deficits noted. Airway is patent Respiratory effort is even, unlabored, cm10 Respiratory pattern is regular, symmetrical. Historical: - Allergies: 12:47 No Known Allergies; cm10 - PMHx: 12:47 Anxiety; Asthma; Bipolar disorder; Depression; detox seizures; scalp laceration repair.;cm10 - PSHx: 12:47 I\\T\\D; cm10 - Immunization history:: Adult Immunizations up to date. - Social history:: Smoking status: Patient reports the use of cigarette tobacco products, smokes one pack cigarettes per day. Patient uses street drugs, marijuana, Xanax. Screenin:38 [facility] ED Fall Risk Assessment (Adult) Score/Fall Risk Level 0 - 2 = Low Risk hb Oriented to surroundings, Maintained a safe environment. Abuse screen: Denies threats or abuse. Denies injuries from another. Nutritional screening: No deficits noted. Tuberculosis screening: No symptoms or risk factors identified. Assessment: 12:56 Reassessment: Provider speaking with patient at this time and patient states, "I just cm10 need a Klonopin like 2mg and some Vicodin.". 14:21 Reassessment: Patient appears in no apparent distress at this time. Patient and/or hb family updated on plan of care and expected duration. Pain level reassessed. Patient is alert, oriented x 3, equal unlabored respirations, skin warm/dry/pink. Vital Signs: 12:44 BP 148 / 109; Pulse 116; Resp 18 S; Temp 97.8(TE); Pulse Ox 98% on R/A; Weight 79.38 kg cm10 (R); Height 5 ft. 8 in. (R); Pain 0/10; 14:07 BP 153 / 97; Pulse 91; Resp 18; Pulse Ox 98% on R/A; hb 12:44 Body Mass Index 26.61 (79.38 kg, 172.72 cm) cm10 12:44 Pain Scale: Adult cm10 NIH Stroke Scale Scores: 12:44 NIHSS Score: 0 [facility] ED Course: 12:39 Patient arrived in ED. mg5 12:45 Summer Lindo FNP is [facility]. jh7 12:45 Fernandez Manzano MD is Attending Physician. 7 12:47 Triage completed. cm10 12:48 Arm band placed on Patient placed in an exam room, on a stretcher. cm10 13:13 Jessie Hinojosa, RN is Primary Nurse. hb 13:38 Patient has correct armband on for positive identification. Provided Education on: hb medication, tests, wait times. 13:47 CT Head Brain wo Cont In Process Unspecified. EDMS 14:21 No provider procedures requiring assistance completed. Patient did not have IV access hb during this emergency room visit. Administered Medications: 13:21 Drug: Diazepam PO 5 mg PO once Route: PO; iw 14:30 Follow up: Response: No adverse reaction hb Medication: 14:21 VIS not applicable for this client. Outcome: 14:09 Discharge ordered by MD. valdivia 14:21 Discharged to home ambulatory, with family, 14:21 Condition: stable 14:21 Discharge instructions given to patient, family, Instructed on discharge instructions, follow up and referral plans. Demonstrated understanding of instructions, follow-up care, 14:21 Patient left the ED. NIH Stroke Scale - NIH Stroke Score Date: 07/24/2023 Time: 12:44 Total Score = 0 10. Dysarthria (speech clarity - read or repeat words) - 0(Normal) 11. Extinction and Inattention (visual/tactile/auditory/spatial/personal) - 0(No abnormality) 1a. Level of Consciousness (LOC) - 0(Alert) 1b. Level of Consciousness (LOC) (Month \\T\\ Age) - 0(Both) 1c. LOC Commands (Open \\T\\ Closes Eyes/Md Ophthalmologist) - 0(Both) 2. Best Gaze (Lateral Gaze Paresis) - 0(Normal) 3. Visual Field Loss - 0(No visual loss) 4. Facial Palsy - 0(Normal) 5a. Left Arm: Motor (10-second hold) - 0(No drift) 5b. Right Arm: Motor (10-second hold) - 0(No drift) 6a. Left Leg: Motor (5-second hold - always test supine) - 0(No drift) 6b. Right Leg: Motor (5-second hold - always test supine) - 0(No drift) 7. Limb Ataxia (finger/nose \\T\\ heel/miner - test with eyes open) - 0(Absent) 8. Sensory Loss (pinprick arms/legs/face) - 0(Normal) 9. Best Language: Aphasia (description/naming/reading) - 0(No aphasia) Initials: shea Signatures: Dispatcher [employer] Gabi Pollock RN RN Jessie Hinojosa RN RN Summer Lindo FNP FNP [facility] Georgina Ruffin RN RN [facility] Aleida Hernandez mg5
== END 2023-07-24 14:21 | disposition home or self-care (01) ==
LOC: ER 12:35
DX: F41.1 Generalized anxiety disorder (principal); Z76.0 Encounter for issue of repeat prescription
CPT/HCPCS: 70450; 99283

== ENCOUNTER 2023-07-25 07:54 | Inpatient (IN) | payer SELFPAY ==
--- OUTSIDE RECORDS SUMMARY | 2023-07-25 08:00 | XMS REPORT | Continuity of Care Document ---
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 depressed, daily moderate sulfamethox 2-0 Yes Multiple 1{tbl} Take 1 [facility] azole-trime 8-16 open wounds tablet by Health thoprim 00:00: of wrist mouth (BACTRIM 00 every 12 DS) 800-160 hours mg tablet gabapentin 2-0 Yes Bipolar 300mg Take 1 H [facility] (NEURONTIN) 8-16 affective capsule by Health 300 mg 00:00: disorder, mouth 3 capsule 00 currently times depressed, daily moderate sulfamethox 2-0 Yes Multiple 1{tbl} Take 1 [facility] azole-trime 8-16 open wounds tablet by Health thoprim 00:00: of wrist mouth (BACTRIM 00 every 12 DS) 800-160 hours mg tablet gabapentin 2-0 Yes Bipolar 300mg Take 1 H [facility] (NEURONTIN) 8-16 affective capsule by Health 300 mg 00:00: disorder, mouth 3 capsule 00 currently times depressed, daily moderate sulfamethox 2-0 Yes Multiple 1{tbl} Take 1 [place] azole-trime 8-16 open wounds tablet by Health thoprim 00:00: of wrist mouth (BACTRIM 00 every 12 DS) 800-160 hours mg tablet gabapentin 2-0 Yes Bipolar 300mg Take 1 H [facility] (NEURONTIN) 8-16 affective capsule by Health 300 mg 00:00: disorder, mouth 3 capsule 00 currently times depressed, daily moderate cephALEXin 2022-0 2- No Bipolar 500mg Take 1 [facility] (KEFLEX) 8-16 08-24 affective capsule by Health 500 mg 00:00: 23:59 disorder, mouth 4 capsule 00 :00 currently times depressed, daily for moderate 7 days cephALEXin 2022-0 2022- No Bipolar 500mg Take 1 [facility] (KEFLEX) 05-17 affective capsule by [facility] 500 mg 00:00: 23:59 disorder, mouth 4 capsule 00 :00 currently times depressed, daily for moderate 7 days cephALEXin 2021-0 2021- No [id number] 500mg Take 1 [place] (KEFLEX) 05-17 capsule by [facility] 500 mg 00:00: 23:59 mouth 4 capsule 00 :00 times daily for 7 days cephALEXin 2021-2021- No [id number] 500mg Take 1 [place] (KEFLEX) 05-17 capsule by [facility] 500 mg 00:00: 23:59 mouth 4 capsule 00 :00 times daily for 7 days cephALEXin 2021-2021- No Bipolar 500mg Take 1 [place] (KEFLEX) 05-17 affective capsule by [facility] 500 mg 00:00: 23:59 disorder, mouth 4 capsule 00 :00 currently times depressed, daily for moderate 7 days OLANZapine 2021- No Bipolar 10mg Q.5D Take 1 H arris (ZYPREXA) 05-17 affective tablet by [facility] 10 mg 00:00: 00:00 disorder, mouth 2 tablet 00 :00 currently (two) depressed, times a moderate day OLANZapine No Bipolar 10mg Q.5D Take 1 H arris (ZYPREXA) 05-17 affective tablet by [facility] 10 mg 00:00: 00:00 disorder, mouth 2 tablet 00 :00 currently (two) depressed, times a moderate day OLANZapine 2021- No [id number] 10mg Q.5D Take 1 [facility] (ZYPREXA) 05-17 tablet by [facility] 10 mg 00:00: 00:00 mouth 2 tablet 00 :00 (two) times a day OLANZapine 2021-2021- No Bipolar 10mg Q.5D Take 1 H arris (ZYPREXA) 05-17 affective tablet by [facility] 10 mg 00:00: 00:00 disorder, mouth 2 tablet 00 :00 currently (two) depressed, times a moderate day sulfamethox 2021-2021- No Multiple 1{tbl} Take 1 [place] azole-trime 05-11 open wounds tablet by Health thoprim 00:00: 00:00 of wrist mouth (BACTRIM 00 :00 every 12 DS) 800-160 hours for mg tablet 14 days cephALEXin 2021- No Multiple 500mg Take 1 El (KEFLEX) 8-16 open wounds capsule by [employer] 500 mg 00:00: 00:00 of wrist mouth 4 capsule 00 :00 times daily for 14 days sulfamethox 2021- No Multiple 1{tbl} Take 1 [facility] azole-trime 05-11 open wounds tablet by [employer] thoprim 00:00: 00:00 of wrist mouth (BACTRIM 00 :00 every 12 DS) 800-160 hours for mg tablet 14 days cephALEXin 2021- No Multiple 500mg Take 1 El (KEFLEX) 05-11 open wounds capsule by [employer] 500 mg 00:00: 00:00 of wrist mouth 4 capsule 00 :00 times daily for 14 days sulfamethox 2021- No Multiple 1{tbl} Take 1 El azole-trime 05-11 open wounds tablet by [employer] thoprim 00:00: 00:00 of wrist mouth (BACTRIM 00 :00 every 12 DS) 800-160 hours for mg tablet 14 days cephALEXin 2021- No Multiple 500mg Take 1 El (KEFLEX) 05-11 open wounds capsule by [employer] 500 mg 00:00: 00:00 of wrist mouth 4 capsule 00 :00 times daily for 14 days nicotine Yes 1{patch 1 Patch, Un adam (NICODERM) 01-31 } Topical, ity o f 21 mg/24 hr 01:00: Administer [place] patch 1 00 over 24 Medical Patch Hours, Branch Q24H, First dose on 01/30/21 at 2000, Until Discontinu ed, Routine OLANZapine 2020- No 10mg 10 mg, Univ ers ZYDIS 01-30 Oral, ity of (ZyPREXA 23:15: 23:15 ONCE, 1 [place] ZYDIS) 00 :00 dose, Sat Medical disintegrat 01/30/21 at [facility] ing tablet 1815, JONATHAN 10 mg NaCl 0.9% 2020- No 1000mL at 999 Uni vers (NS) bolus 01-30 mL/hr, ity of infusion 22:15: 23:27 1,000 mL, Antonio as 1,000 mL 00 :00 IV Medical Infusion, Branch ONCE, 1 dose, 01/30/21 at 1715, JONATHAN No known No [facility] Sign[facility] Vital Name Observation Time Observation Value Comments Source Systolic blood 2022-06-06 18:12:17 130 mm[Hg] [facility] Diastolic blood 2022-06-06 18:12:17 85 mm[Hg] Unive rsity [facility] Heart rate 2022-06-06 18:12:17 88 /min [facility] Body temperature 2022-06-06 18:12:[address] [facility] 2022-06-06 18:12:17 18 /min [facility] Body height 2022-06-06 17:32:00 175.3 cm [facility] Body weight 2022-06-06 17:32:00 97.523 kg [facility] BMI 2022-06-06 17:32:00 31.75 kg/m2 [facility] Oxygen saturation in 2022-06-06 17:32:00 98 /min [facility] Arterial blood by [facility] Pulse oximetry [place] Systolic blood 2022-06-03 15:00:00 122 mm[Hg] [facility] pressure Diastolic blood 2022-06-03 15:00:00 79 mm[Hg] Marisela s [facility] pressure Heart rate 2022-06-03 15:00:00 95 /min [facility] Body temperature 2022-06-03 15:00:00 36.78 Franci [facility] Respiratory rate 2022-06-03 15:00:00 18 /min [facility] Oxygen saturation in 2022-06-03 15:00:00 96 /min [facility] Arterial blood by Pulse oximetry Body height 2022-05-24 07:27:00 172.7 cm [facility] Body weight 2022-05-24 07:27:00 81.194 kg [facility] BMI 2022-05-24 07:27:00 27.22 kg/m2 [facility] Systolic blood 2022-06-03 15:00:00 122 mm[Hg] [facility] pressure Diastolic blood 2022-06-03 15:00:00 79 mm[Hg] [facility] pressure Heart rate 2022-06-03 15:00:00 95 /min [facility] Body temperature 2022-06-03 15:00:00 36.78 Franci Ashley [...] ealth Systolic blood 2022-05-22 16:42:00 132 mm[Hg] [facility] pressure Diastolic blood 2022-05-22 16:42:00 82 mm[Hg] [facility] pressure Heart rate 2022-05-22 16:42:00 83 /min [facility] Body temperature 2022-05-22 16:42:00 36.39 Franci [facility] Respiratory rate 2022-05-22 16:42:00 17 /min [facility] Oxygen saturation in 2022-05-22 16:42:00 98 /min [facility] Arterial blood by Pulse oximetry Body height 2022-05-22 13:27:00 172.7 cm [facility] weight 2022-05-22 13:27:00 81.647 kg [facility] ealt BMI 2022-05-22 13:27:00 27.37 kg/m2 [facility] ealt Systolic blood 2022-05-19 19:46:00 136 mm[Hg] [facility] pressure Diastolic blood 2022-05-19 19:46:00 91 mm[Hg] [facility] pressure Heart rate 2022-05-19 19:46:00 101 /min [facility] Body temperature 2022-05-19 19:46:00 36.67 Franc[facility] Respiratory rate 2022-05-19 19:46:00 20 /min [facility] Oxygen saturation in 2022-05-19 19:46:00 100 /min [place] [facility] Arterial blood by Pulse oximetry Body height 2022-05-19 12:32:00 172.7 cm [facility] Body weight 2022-05-19 12:32:00 81.647 kg [facility] BMI 2022-05-19 12:32:00 27.37 kg/m2 [facility] ealt Systolic blood 2022-05-19 19:46:00 136 mm[Hg] [facility] pressure Diastolic blood 2022-05-19 19:46:00 91 mm[Hg] [facility] pressure Heart rate 2022-05-19 19:46:00 101 /min [facility] Body temperature 2022-05-19 19:46:00 36.67 Franci [facility] Respiratory rate 2022-05-19 19:46:00 20 /min [facility] Oxygen saturation in 2022-05-19 19:46:00 100 /min [facility] Arterial blood by Pulse oximetry Body height 2022-05-19 12:32:00 172.7 cm [facility] Body weight 2022-05-19 12:32:00 81.647 kg [facility] BMI 2022-05-19 12:32:00 27.37 kg/m2 [facility] Systolic blood 2021-01-31 04:00:00 104 mm[Hg] [facility] Diastolic blood 2021-01-31 04:00:00 70 mm[Hg] Unive rsity [facility] Heart rate 2021-01-31 04:00:00 59 /min [facility] Respiratory rate 2021-01-31 04:00:00 18 /min [facility] O[facility] saturation in 2021-01-31 04:00:00 99 /min [facility] Arterial blood by [facility] Pulse oximetry Branch Body temperature 2021-01-30 21:51:00 37.22 Franci Univ ersity [facility] Body weight 2021-01-30 21:50:00 97.523 kg [facility] Systolic blood 2022-06-04 00:00:00 122 mm[Hg] [facility] pressure Diastolic blood 2022-06-04 00:00:00 87 mm[Hg] [facility] pressure Heart rate 2022-06-04 00:00:00 92 /min [facility] ealt Body temperature 2022-06-04 00:00:00 36.89 Franci [facility] Respiratory rate 2022-06-04 00:00:00 18 /min [facility] Body height 2022-06-04 00:00:00 172.7 cm [facility] Body weight 2022-06-04 00:00:00 83.915 kg [facility] BMI 2022-06-04 00:00:00 28.13 kg/m2 [facility] Oxygen saturation in 2022-06-04 00:00:00 97 /min [facility] Arterial blood by Pulse oximetry Systolic blood 2022-05-23 08:00:00 125 mm[Hg] [facility] pressure Diastolic blood 2022-05-23 08:00:00 79 mm[Hg] [facility] pressure Heart rate 2022-05-23 08:00:00 79 /min [facility] Body temperature 2022-05-23 08:00:00 36.83 Franci [facility] Respiratory rate 2022-05-23 08:00:00 20 /min [facility] Oxygen saturation in 2022-05-23 08:00:00 95 /min [facility] Arterial blood by Pulse oximetry Body height 2022-05-19 11:13:00 172.7 cm [facility] Body weight 2022-05-19 11:13:00 81.557 kg [facility] BMI 2022-05-19 11:13:00 27.34 kg/m2 [facility] Procedures Procedure Date / Time Performing Clinician Source Performed CONSENT/REFUSAL FOR 2022-06-06 17:25:33 Doctor Unassigned, No Un [facility] DIAGNOSIS AND TREATMENT Name Medical Branch BASIC METABOLIC PANEL 2022-06-02 03:57:00 Heath Lawson [facility] Health BASIC METABOLIC PANEL 2022-06-02 03:57:00 Heath [facility] Health AMIKACIN, TROUGH LEVEL 2022-05-31 21:13:00 Sil Soliz is Health AMIKACIN, TROUGH LEVEL 2022-05-31 21:13:00 Soliz, Sil [facility] WOUND/ABSCESS CULTURE 2022-05-31 08:53:00 Germán, Gabe [facility] AND GRAM STAIN [employer] STAIN AND CULTURE 2022-05-31 08:53:00 GermánGabe [facility] Health ANAEROBE CULTURE 2022-05-31 08:53:00 Germán, [facility] FUNGUS STAIN AND CULTURE 2022-05-31 08:53:00 Germán, [facility] AFB STAIN AND CULTURE 2022-05-31 08:53:00 Germán, Gabe [facility] Health ANAEROBE CULTURE 2022-05-31 08:53:00 Germán, [facility] FUNGUS STAIN AND CULTURE 2022-05-31 08:53:00 [facility] 2022-05-31 08:53:00 [facility] BASIC METABOLIC PANEL 2022-05-31 05:12:00 Lawson, Heath H [facility] BASIC METABOLIC PANEL 2022-05-31 05:12:00 Lawson, Heath H [facility] GLUCOSE POC 2022-05-29 08:04:00 Lupe Burch [facility] GLUCOSE POC 2022-05-29 08:04:00 Lupe Burch [facility] CBC (WITHOUT 2022-05-29 04:33:00 Lawson, Heath Garcia [facility] ealt DIFFERENTIAL) BASIC METABOLIC PANEL 2022-05-29 04:33:00 Lawson, Heath [facility] BASIC METABOLIC PANEL 2022-05-29 04:33:00 Lawson, Heath H [facility] CBC (WITHOUT 2022-05-29 04:33:00 Lawson, Heath H [facility] DIFFERENTIAL) GLUCOSE POC 2022-05-28 16:49:00 Lupe Burch [facility] GLUCOSE POC 2022-05-28 16:49:00 Lupe Burch [facility] GLUCOSE POC 2022-05-28 11:46:00 Lupe Burch [facility] GLUCOSE POC 2022-05-28 11:46:00 Lupe Burch [facility] GLUCOSE POC 2022-05-28 08:24:00 Lupe Burch [facility] th GLUCOSE POC 2022-05-28 08:24:00 Lupe Burch th CBC (WITHOUT 2022-05-28 04:36:00 Lawson, Heath H [facility] DIFFERENTIAL) BASIC METABOLIC PANEL 2022-05-28 04:36:00 Lawson, Heath H [facility] BASIC METABOLIC PANEL 2022-05-28 04:36:00 Lawson, Heath H [facility] CBC (WITHOUT 2022-05-28 04:36:00 Lawson, Heath H [facility] DIFFERENTIAL) CBC (WITHOUT 2022-05-27 05:10:00 Lawson, Heath H [facility] DIFFERENTIAL) BASIC METABOLIC PANEL 2022-05-27 05:10:00 Lawson, Heath H [facility] AMIKACIN, RANDOM LEVEL 2022-05-27 05:10:00 Lupe Burch is Health BASIC METABOLIC PANEL 2022-05-27 05:10:00 Lawson, Heath H [facility] CBC (WITHOUT 2022-05-27 05:10:00 Lawson, Heath H [facility] DIFFERENTIAL) AMIKACIN, RANDOM LEVEL 2022-05-27 05:10:00 MarcinLupe ruano is Health AMIKACIN, RANDOM LEVEL 2022-05-26 23:35:00 MarcinLupe is Health AMIKACIN, RANDOM LEVEL 2022-05-26 23:35:00 MarcinLupe is Health AMIKACIN, TROUGH LEVEL 2022-05-26 05:53:00 Arash Obando s Health CBC (WITHOUT 2022-05-26 05:53:00 Lawson, Heath H [facility] DIFFERENTIAL) BASIC METABOLIC PANEL 2022-05-26 05:53:00 Lawson, Heath H [facility] BASIC METABOLIC PANEL 2022-05-26 05:53:00 Lawson, Heath H [facility] CBC (WITHOUT 2022-05-26 05:53:00 Lawson, Heath H [facility] DIFFERENTIAL) AMIKACIN, TROUGH LEVEL 2022-05-26 05:53:00 Arash Obando s Health CONSULT CLINICAL CASE 2022-05-25 14:55:14 Myles [facility] MANAGEMENT (RN/SW) CONSULT CLINICAL CASE 2022-05-25 14:55:14 Myles [facility] MANAGEMENT (RN/SW) CBC/DIFF 2022-05-25 08:24:00 Lawson Heath Garcia [facility] BASIC METABOLIC PANEL 2022-05-25 08:24:00 Narendra Lawsono Jose [facility] CBC 2022-05-25 08:24:00 Lawson Heath Garcia [facility] BASIC METABOLIC PANEL 2022-05-25 08:24:00 Naerndra Lawsono Jose [facility] CBC/DIFF 2022-05-25 08:24:00 Heath Lawson [facility] CBC 2022-05-25 08:24:00 Lawson Heath Garcia [facility] ealth ANAEROBE CULTURE 2022-05-24 20:47:00 Germán [facility] WOUND/ABSCESS CULTURE 2022-05-24 20:47:00 [facility] AND GRAM STAIN ANAEROBE CULTURE 2022-05-24 20:47:00 Germán [facility] WOUND/ABSCESS CULTURE 2022-05-24 20:47:00 [facility] AND GRAM STAIN [employer] STAIN AND CULTURE 2022-05-24 15:44:00 [facility] FUNGUS STAIN AND CULTURE 2022-05-24 15:44:00 Germán [facility] AFB STAIN AND CULTURE 2022-05-24 15:44:00 Germán, [facility] Health FUNGUS STAIN AND CULTURE 2022-05-24 15:44:00 Germán [facility] INFUSION PUMP 2022-05-24 04:24:23 Lupe Burch [facility] INFUSION PUMP 2022-05-24 04:24:23 Lupe Burch [facility] CBC/DIFF 2022-05-24 04:22:[address] [facility] CBC 2022-05-24 04:22:[address] [facility] CBC/DIFF 2022-05-24 04:22:[address] [facility] CBC 2022-05-24 04:22:[address] [facility] HIV AG/AB COMBO 2022-05-23 18:44:00 Alissa Avitia [facility] DIAGNOSTIC/SYMPTOMATIC HEPATITIS PANEL 2022-05-23 18:44:00 Alissa Avitia [facility] HEPATITIS PANEL 2022-05-23 18:44:00 Alissa Avitia [facility] HIV AG/AB COMBO 2022-05-23 18:44:00 Alissa Avitia [facility] DIAGNOSTIC/SYMPTOMATIC SARS-COV-2, FLU A/B, RSV 2022-05-23 15:41:[facility], 2022-05-23 15:41:00 [facility] YOKASTA CORONAVIRUS, COVID-19, 2022-05-23 15:41[facility] SARS-COV-2, FLU A/B, RSV 2022-05-23 15:41:00 [facility] BASIC METABOLIC PANEL 2022-05-23 11:25:00 Prakash-Stefanie Monique [facility] CBC/DIFF 2022-05-23 11:25:[address] [facility] CBC 2022-05-23 11:25:[address] [facility] SED RATE 2022-05-23 11:25:00 Orlando Donald [facility] h C-REACTIVE PROT 2022-05-23 11:25:00 Orlando Donald [facility] h BASIC METABOLIC PANEL 2022-05-23 11:25:[address] [facility] CBC/DIFF 2022-05-23 11:25:[address] [facility] C-REACTIVE PROT 2022-05-23 11:25:00 Orlando Donald [facility] h SED RATE 2022-05-23 11:25:00 Orlando Donald Healt h CBC 2022-05-23 11:25:00 Stefanie Mckinney [facility] BEDSIDE 2022-05-23 11:08:27 Unknown, Provider El kg [facility] ULTRASOUND AFFILIATE HC POC URINE 2022-05-19 21:30:[address] [facility] DRUG SCREEN AFFILIATE HC POC URINE 2022-05-19 21:30:[address] [facility] DRUG SCREEN I&D OF ABSCESS 2022-05-19 19:03:24 Chris Marrufo [facility] I&D OF ABSCESS 2022-05-19 19:03:24 AzChris boss [facility] WOUND/ABSCESS CULTURE 2022-05-19 18:54:[address] [facility] AND GRAM STAIN WOUND/ABSCESS CULTURE 2022-05-19 18:54:[address] [facility] AND GRAM STAIN XRAY FOREARM 2 VIEWS MIN 2022-05-19 17:04:37 Naomi Wells [facility] Health XRAY FOREARM 2 VIEWS MIN 2022-05-19 17:04:37 Naomi Wells [facility] CBC/DIFF 2022-05-19 14:29:00 [facility]IC PANEL 2022-05-19 14:29:[address] [facility] LACTIC ACID 2022-05-19 14:29:00 [facility] 2022-05-19 14:29:00 [facility] 2022-05-19 14:29:00 [facility] 2022-05-19 14:29:00 [facility] BAS[facility] MET[facility]OLIC PANEL 2022-05-19 14:29:[address] [facility] CBC/DIFF 2022-05-19 14:29:00 [facility] 2022-05-19 14:29:00 [facility] 2022-05-19 14:29:00 [facility] 2022-05-19 14:29:00 [facility] 2022-05-19 14:29:00 Naomi Wells [facility] AFFILIATE HC POC URINE 2022-05-19 11:15:00 Jennifer [facility] DRUG SCREEN AFFILIATE HC POC URINE 2022-05-19 11:15:00 Jennifer [facility] DRUG SCREEN POC COVID-19 2022-05-17 17:50:00 Kerline Chambers El [facility] h AFFILIATE HC POC URINE 2022-05-12 17:47:00 KalimuddinRebel arris Health DRUG SCREEN AFFILIATE HC POC URINE 2022-05-12 17:47:00 KalimuddinRebel N H arris Health DRUG SCREEN POC COVID-19 2022-05-11 23:56:00 Rebel Case ealth XRAY WRIST 3 VIEWS MIN 2022-05-11 17:04:00 Hanh Rodriguez [facility] Health CBC/DIFF 2022-05-11 16:20:00 Hanh Rodriguez alth BASIC METABOLIC PANEL 2022-05-11 16:20:00 Hanh Rodriguez [facility] HIV AG/AB COMBO ROUTINE 2022-05-11 16:20:00 Hanh Rodriguez [facility] SCREENING CBC 2022-05-11 16:20:00 Hanh Rodriguez alth URINE DRUG (IMMUNOASSAY) 2021-01-30 22:04:00 Shy Martin [facility] SCREEN HEPATIC FUNCTION PANEL 2021-01-30 22:03:00 Shy Martin [facility] ([id number]) (ALB,T.PRO,BILI Medical Branch T,BU/BC,ALT,AST,ALK PHOS) BASIC METABOLIC PANEL 2021-01-30 22:03:00 Shy [facility] (NA, K, CL, CO2, Medical Branch GLUCOSE, BUN, CREATININE, CA) SALICYLATE 2021-01-30 22:03:00 Shy Martin [facility] ETHANOL 2021-01-30 22:03:00 Shy Martin [facility] CBC WITH DIFF 2021-01-30 22:03:00 Shy Martin [facility] URINALYSIS 2021-01-30 22:02:00 Shy Martin [facility] COVID-19 (ID NOW RAPID 2021-01-30 22:02:00 Shy Martin Un [facility] TESTING) Medical Branch NOTICE OF PRIVACY 2021-01-30 21:37:21 Doctor Unassigned, No Univ [facility] PRACTICES Name Medical Branch CONSENT/REFUSAL FOR 2021-01-30 21:37:00 Doctor Unassigned, [facility] Name [facility] Plan of Care Planned Activity Planned Date Details Comments Source Future Scheduled Test 2023-07-[address] [facility] 00:00:00 (>/= 19 yrs) [code = IMM Influenza Seasonal (>/= 19 yrs)] Future Scheduled Test 2023-07-[address] [facility] 00:00:00 (>/= 19 yrs) [code = IMM Influenza Seasonal (>/= 19 yrs)] Future Scheduled Test 2023-06-[address] [facility] 00:00:00 (>/= 19 yrs) [code = IMM Influenza Seasonal (>/= 19 yrs)] Future Scheduled Test 2023-06-[address] [facility] 00:00:00 (>/= 19 yrs) [code = IMM Influenza Seasonal (>/= 19 yrs)] Future Scheduled Test 2023-06-[address] [facility] 00:00:00 (>/= 19 yrs) [code = IMM Influenza Seasonal (>/= 19 yrs)] Future Scheduled Test 2022-07-[address] [facility] 00:00:00 (>/= 19 yrs) [code = IMM Influenza Seasonal (>/= 19 yrs)] Future Scheduled Test 2022-07-[address] [facility] 00:00:00 (>/= 19 yrs) [code = IMM Influenza Seasonal (>/= 19 yrs)] Future Scheduled Test 2022-07-[address] [facility] 00:00:00 (>/= 19 yrs) [code = IMM Influenza Seasonal (>/= 19 yrs)] Future Scheduled Test 1992 Imm Pneumococcal 0-64 [facility] 00:00:00 (1 - PCV) [code = Imm Pneumococcal 0-64 (1 - PCV)] Future Scheduled Test 1992 Imm Pneumococcal 0-64 [facility] 00:00:00 (1 - PCV) [code = Imm Pneumococcal 0-64 (1 - PCV)] Future Scheduled Test 1992 [address]neumococcal 0-64 [facility] 00:00:00 (1 - PCV) [code = Imm Pneumococcal 0-64 (1 - PCV)] Future Scheduled Test 1992 Imm Pneumococcal 0-64 [facility] 00:00:00 (1 - PCV) [code = Imm Pneumococcal 0-64 (1 - PCV)] Future Scheduled Test 1992 Imm Pneumococcal 0-64 [facility] 00:00:00 (1 - PCV) [code = Imm Pneumococcal 0-64 (1 - PCV)] Future Scheduled Test 1992 Imm Pneumococcal 0-64 [facility] 00:00:00 (1 - PCV) [code = Imm Pneumococcal 0-64 (1 - PCV)] Future Scheduled Test 1992 Imm Pneumococcal 0-64 [facility] 00:00:00 (1 - PCV) [code = Imm Pneumococcal 0-64 (1 - PCV)] Future Scheduled Test 1992 Imm Pneumococcal 0-64 [facility] 00:00:00 (1 - PCV) [code = Imm Pneumococcal 0-64 (1 - PCV)] Future Scheduled Test 1986 COVID-19 Vaccine (#1) [facility] 00:00:00 [code = COVID-19 Vaccine (#1)] Future Scheduled Test 1986 COVID-19 Vaccine (#1) [facility] 00:00:00 [code = COVID-19 Vaccine (#1)] Future Scheduled Test 1986 COVID-19 Vaccine (#1) [facility] 00:00:00 [code = COVID-19 Vaccine (#1)] Future Scheduled Test 1986 COVID-19 Vaccine (#1) [facility] 00:00:00 [code = COVID-19 Vaccine (#1)] Future Scheduled Test 1986 COVID-19 Vaccine (#1) [facility] 00:00:00 [code = COVID-19 Vaccine (#1)] Future Scheduled Test 1986 COVID-19 Vaccine (#1) [facility] 00:00:00 [code = COVID-19 Vaccine (#1)] Future Scheduled Test 1986 COVID-19 Vaccine (#1) [facility] 00:00:00 [code = COVID-19 Vaccine (#1)] Future Scheduled Test 1986 COVID-19 Vaccine (#1) [facility] 00:00:00 [code = COVID-19 Vaccine (#1)] Future Scheduled Test 1986 Fluoride Varnish [code [facility] 00:00:00 = Fluoride Varnish] Future Scheduled Test 1986 Fluoride Varnish [code [facility] 00:00:00 = Fluoride Varnish] Encounters Start End Encounter Admission Attending Care Care Encounter Source Date/Time Date/Time Type Type Clinicians Facility Department ID 2022-06-15 Outpatient [facility] [id number] [place] 12:36:45 [id number] [facility] 2022-06-14 Emergency HFD HFD [id number] SAMANTHA - 12:01:29 [facility] ent 2022-06-06 Outpatient [facility] [id number] [place] 23:18:[id number] [place] [address] 2022-06-06 Outpatient [facility] [id number] [place] 23:16:[id number] [place] [address] 2022-04-06 Outpatient [facility] [id number] [place] 05:42:38 [id number] [facility] 2020-12-14 Inpatient [facility] LJ [id number] [facility] 08:08:00 72 [facility] 2020-12-13 Inpatient HCABM LJ [id number] [facility] 19:49:00 20 [facility] 2020-12-06 Inpatient HCABM HC[facility]M [id number] [facility] 14:30:44 66 [facility] 2022-07-27 2022-07-27 Emergency E GEORGE, SW [facility] [id number] [facility] 08:49:00 12:49:00 BRY 2022-06-24 2022-06-24 Office Mary FLOR [id number] [place] 08:00:00 08:30:00 Visit , Fanta GONZALES 350.1.13.43 He alth .[id number] [id number] 2022-06-20 2022-06-20 Outpatient [facility] [id number] [address] [place] [address] 00:00:00 00:00:00 [facility] 2022-06-14 2022-06-17 Emergency E CAROL, MIGEL [facility] [id number] [facility] 18:10:00 00:38:00 DANIEL 2022-06-14 2022-06-14 Emergency E DAQUAN, MHNE [facility] [id number] [facility] 10:48:00 15:20:00 SITA 2022-06-06 2022-06-06 Emergency X TIM DCSUMA ERT [id number] [address] [place] [address] 12:34:00 13:23:00 DANIEL manrique [facility] 2022-06-06 2022-06-06 [facility] [id number] [facility] 12:34:00 13:23:00 [facility]13.10 [facility] 4.2.7.2.686 [facility] [id number] [address] 2022-06-03 2022-06-04 Emergency JACK SANTOS [id number] [place] 00:00:00 22:29:00 GENERAL 350.1.13.43 [facility] .2.7.2.6869 [id number] 3165-09-02 2022-06-04 Emergency [facility] [id number] [place] 00:00:00 22:29:00 [facility] 2022-06-03 2022-06-03 Outpatient [facility] [id number] 33 [place] 23:37:47 23:59:00 [facility] 2022-06-03 2022-06-03 Outpatient [facility] [id number] 19 [place] 21:28:26 23:36:00 [facility] 2022-05-23 2022-06-03 Hospital Jose F Reyes TOM [id number] [place] 13:09:00 18:30:00 Encounter Lupe Burch GENERAL 350.1.13.43 [facility] .2.7.2.6869 [id number] 5247-08-29 2022-05-30 Inpatient [facility] [id number] [place] 16:04:37 16:04:39 [facility] 2022-05-23 2022-05-23 Inpatient 1 MARCIN [facility] [id number] [place] 13:09:00 13:09:00 [facility] 2022-05-22 2022-05-22 Emergency JACK Meraz [id number] [place] 19:04:00 20:39:00 [facility] 350.1.13.43 [facility] .2.7.2.6869 [id number] 7445-08-18 2022-05-19 Emergency 1 [facility] [id number] [place] 14:06:00 19:49:00 [facility] 2022-05-19 2022-05-19 Emergency JACK Petit TOM [id number] [place] 14:06:00 19:49:00 [facility] 350.1.13.43 [facility] .2.7.2.6869 [id number] 2976-08-18 2022-05-19 Emergency [facility] [id number] [place] 16:50:11 17:04:43 [facility] 2022-05-18 2022-05-19 Inpatient [facility] [id number] [place] 10:13:00 10:30:00 [facility] 2022-05-11 2022-05-18 Inpatient [facility] [id number] 6 [place] 22:33:18 09:43:00 [facility] 2022-05-11 2022-05-11 Emergency Marisabel [facility] [id number] 793 [place] 19:53:00 21:53:00 [facility] 2022-05-11 2022-05-11 Emergency Marisabel [facility] [id number] 793 [place] 19:53:00 21:53:00 [facility] 2022-05-11 2022-05-11 Emergency [facility] [id number] [place] 16:54:18 17:05:03 [facility] 2022-05-11 2022-05-11 Emergency 1 [facility] [id number] [place] 16:05:00 16:05:00 [facility] 2021-01-30 2021-01-30 Emergency Veronica [facility] [id number] [facility] 16:48:00 23:59:00 Shy Morelos 350.1.13.10 [place] 4.2.7.2.686 [facility] [id number] [address] 2021-01-30 2021-01-30 Emergency X VERONICA, [facility] ERT [id number] [facility] 16:48:00 16:48:00 SHY itelza [facility] 2021-01-30 2021-01-30 Orders Doctor JAKE [id number] [facility] 00:00:00 00:00:00 Only Unassigned, ESTEFANY 350.1.13.10 [facility] [facility] 4.2.7.2.686 [facility] as [id number] [facility] [address] 2020-03-03 2020-03-03 Emergency X [facility] ERT [id number] [facility] 09:37:00 09:37:00 [facility] Results Test Description Test Time Test Comments Results Result Comments Source AF[employer] Stain & Culture 2022-07-19 11:04:16 Test Item Value Reference Range Interpretation Comme nts AFB Culture (test code = 543-9) No acid fast bacilli isolated in 6 weeks AFB Stain (test code = 676-7) No acid fast bacilli seen TARCY (test code = TRACY) Reference value: No acid fast bacilli isolate d [place] [facility] [id number] 11:04:16 Test Item Value Reference Range Interpretation Comments AFB Culture (test code No acid fast bacilli = 543-9) isolated in 6 weeks AFB Stain (test code = No acid fast bacilli 676-7) seen TRACY (test code = TRACY) Reference value: No acid fast bacilli isolated [place] [facility] [id number] 11:04:16 Test Item Value Reference Range Interpretation Comments AFB Culture (test code No acid fast bacilli = 543-9) isolated in 6 weeks AFB Stain (test code = No acid fast bacilli 676-7) seen TRACY (test code = TRACY) Reference value: No acid fast bacilli isolated [place] [facility] [id number] 21:02:46 Test Item Value Reference Range Interpretation Comments AFB Culture (test code No acid fast bacilli = 543-9) isolated in 6 weeks AFB Stain (test code = No acid fast bacilli 676-7) seen TRACY (test code = TRACY) Reference value: No acid fast bacilli isolated [place] [facility] [id number] 21:02:45 Test Item Value Reference Range Interpretation Comments AFB Culture (test code No acid fast bacilli = 543-9) isolated in 6 weeks AFB Stain (test code = No acid fast bacilli 676-7) seen TRACY (test code = TRACY) Reference value: No acid fast bacilli isolated [place] [facility] [id number] 20:02:40 Test Item Value Reference Range Interpretation Comments AFB Culture (test code No acid fast bacilli = 543-9) isolated in 6 weeks AFB Stain (test code = No acid fast bacilli 676-7) seen TRACY (test code = TRACY) Reference value: No acid fast bacilli isolated [place] [facility] [id number] 19:03:24 Test Item Value Reference Range Interpretation Comments Fungus Culture (test No fungus isolated in 4 code = 580-1) weeks Fungus Stain (test No fungal elements seen code = 658-5) TRACY (test code = TRACY) Reference value: No fungus isolated [place] [facility] [id number] 19:03:24 Test Item Value Reference Range Interpretation Comments Fungus Culture (test No fungus isolated in 4 code = 580-1) weeks Fungus Stain (test No fungal elements seen code = 658-5) TRACY (test code = TRACY) Reference value: No fungus isolated [place] [facility] [id number] 19:03:24 Test Item Value Reference Range Interpretation Comments Fungus Culture (test No fungus isolated in 4 code = 580-1) weeks Fungus Stain (test No fungal elements seen code = 658-5) TRACY (test code = TRACY) Reference value: No fungus isolated [place] [facility] St[facility] & [id number] 05:04:44 Test Item Value Reference Range Interpretation Comments Fungus Culture (test No fungus isolated in 4 code = 580-1) weeks Fungus Stain (test No fungal elements seen code = 658-5) TRACY (test code = TRACY) Reference value: No fungus isolated [place] [facility] [id number] 05:04:43 Test Item Value Reference Range Interpretation Comments Fungus Culture (test No fungus isolated in 4 code = 580-1) weeks Fungus Stain (test No fungal elements seen code = 658-5) TRACY (test code = TRACY) Reference value: No fungus isolated [facility] [id number] 04:04:04 Test Item Value Reference Range Interpretation Comments Fungus Culture (test No fungus isolated in 4 code = 580-1) weeks Fungus Stain (test No fungal elements seen code = 658-5) TRACY (test code = TRACY) Reference value: No fungus isolated [facility] [id number] 06:33:06 Test Item Value Reference Range Interpretation Comments Anaerobe Culture (test No anaerobes isolated code = 635-3) in 5 days TRACY (test code = TRACY) Reference value: No anaerobes isolated [facility] [id number] 06:33:06 Test Item Value Reference Range Interpretation Comments Anaerobe Culture (test No anaerobes isolated code = 635-3) in 5 days TRACY (test code = TRACY) Reference value: No anaerobes isolated [facility] [id number] 06:33:06 Test Item Value Reference Range Interpretation Comments Anaerobe Culture (test No anaerobes isolated code = 635-3) in 5 days TRACY (test code = TRACY) Reference value: No anaerobes isolated [facility] [id number] 06:33:06 Test Item Value Reference Range Interpretation Comments Anaerobe Culture (test No anaerobes isolated code = 635-3) in 5 days TRACY (test code = TRACY) Reference value: No anaerobes isolated [facility] [id number] 08:20:27 Test Item Value Reference Range Interpretation [...] the reference value is considered "No growth". [place] [facility]Abscess Culture & Gram [id number] 08:20:27 Test Item Value Reference Range Interpretation [...] the reference value is considered "No growth". [place] [facility]Abscess Culture & Gram [id number] 08:20:27 Test Item Value Reference Range Interpretation [...] the reference value is considered "No growth". [place] [facility]Abs[facility] Culture & Gram [id number] 08:20:27 Test Item Value Reference Range Interpretation [...] the reference value is considered "No growth". [place] [facility]Abscess Culture & Gram [id number] 10:37:20 Test Item Value Reference Range Interpretation Comments Wound Culture (test 1+ Acid fast AA REFER TO code = 6463-4) bacilli [id number] Gram Stain (test code No organisms seen = 664-3) TRACY (test code = TRACY) Reference value: Non-sterile sites may be contaminated with esperanza that is considered normal or otherwise not clinically relevant. As appropriate, normal results will indicate the presence or absence of such esperanza. Otherwise, the reference value is considered "No growth". Lab Interpretation Abnormal (test code = 50986-7) [facility] [id number] 10:37:20 Test Item Value Reference Range Interpretation Comments Bacteria Spec ACID-FAST AA 1+ Acid fast Cult (test code = BACILLUS bacilliREF ER TO 6463-4) [id number] Reference value: Non-sterile sites may be contaminated with esperanza that is considered normal or otherwise not clinically relevant. As appropriate, normal results will indicate the presence or absence ofsuch esperanza. Otherwise, the reference value is considered "No growth".HHSWound/Abscess Culture & Gram [id number] 10:36:38 Test Item Value Reference Range Interpretation Comments Wound Culture (test Acid fast bacilli AA REF ER TO code = 6463-4) [id number] Gram Stain (test code No organisms seen = 664-3) TRACY (test code = TRACY) Reference value: Non-sterile sites may be contaminated with esperanza that is considered normal or otherwise not clinically relevant. As appropriate, normal results will indicate the presence or absence of such esperanza. Otherwise, the reference value is considered "No growth". Lab Interpretation Abnormal (test code = 03370-7) [place] [facility] [id number] 10:36:38 Test Item Value Reference Range Interpretation Comments Bacteria Spec ACID-FAST AA Acid fast Cult (test code = BACILLUS bacilliREF ER TO 6463-4) [id number] Reference value: Non-sterile sites may be contaminated with esperanza that is considered normal or otherwise not clinically relevant. As appropriate, normal results will indicate the presence or absence ofsuch esperanza. Otherwise, the reference value is considered "No growth".HHSWound/Abscess Culture & Gram [id number] 10:35:39 Test Item Value Reference Range Interpretation Comments Wound Culture (test Acid fast bacilli AA REF ER TO code = 6463-4) [id number] Gram Stain (test code No organisms seen = 664-3) TRACY (test code = TRACY) Reference value: Non-sterile sites may be contaminated with esperanza that is considered normal or otherwise not clinically relevant. As appropriate, normal results will indicate the presence or absence of such esperanza. Otherwise, the reference value is considered "No growth". Lab Interpretation Abnormal (test code = 77084-3) [place] [facility] Spec [id number] 10:35:39 Test Item Value Reference Range Interpretation Comments Bacteria Spec ACID-FAST AA Acid fast Cult (test code = BACILLUS bacilliREF ER TO 6463-4) [id number] Reference value: Non-sterile sites may be contaminated with esperanza that is considered normal or otherwise not clinically relevant. As appropriate, normal results will indicate the presence or absence ofsuch esperanza. Otherwise, the reference value is considered "No growth".[facility] [id number] 09:36:58 Test Item Value Reference Range Interpretation Comments Anaerobe Culture (test No anaerobes isolated code = 635-3) in 5 days TRACY (test code = TRACY) Reference value: No anaerobes isolated [place] [employer] Hbmqcdk0227-28-05 09:36:11 Test Item Value Reference Range Interpretation Comments Anaerobe Culture (test No anaerobes isolated code = 635-3) in 5 days TRACY (test code = TRACY) Reference value: No anaerobes isolated [place] [employer] [id number] 09:35:49 Test Item Value Reference Range Interpretation Comments Anaerobe Culture (test No anaerobes isolated code = 635-3) in 5 days TRACY (test code = TRACY) Reference value: No anaerobes isolated [employer]CP[facility] GLUCOSE POC docked [id number] 08:05:41 Test Item Value Reference Range Interpretation Comments Glucose POC (test code = 107 mg/dL 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) Lab Interpretation (test Abnormal code = 85834-0) [employer] GLUCOSE POC docked [id number] 08:05:41 Test Item Value Reference Range Interpretation Comments Glucose POC (test code = 107 mg/dL 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) Lab Interpretation (test Abnormal code = 17714-6) [employer] GLUCOSE POC docked [id number] 08:05:41 Test Item Value Reference Range Interpretation Comments Glucose POC (test code = 107 mg/dL 74-106 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 [id number]) Lab Interpretation (test Abnormal code = 27085-7) [employer] GLUCOSE POC docked [id number] 08:05:41 Test Item Value Reference Range Interpretation Comments Glucose POC (test code = 107 mg/dL 74-106 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 [id number]) Lab Interpretation (test Abnormal code = 05222-5) [facility] GLUCOSE POC docked [id number] 16:50:48 Test Item Value Reference Range Interpretation Comments Glucose POC (test code = 43286191) 107 mg/dL 74-106 H Lab Interpretation (test code = Abnormal 66987-9) [employer] GLUCOSE POC docked [id number] 11:46:44 Test Item Value Reference Range Interpretation Comments Glucose POC (test code = 38431174) 89 mg/dL 74-106 Lab Interpretation (test code = Normal 44671-1) [facility] GLUCOSE POC docked [id number] 08:25:07 Test Item Value Reference Range Interpretation Comments Glucose POC (test code = 09271851) 83 mg/dL 74-106 Lab Interpretation (test code = Normal 78675-9) [facility] [id number] 14:19:13 Test Item Value Reference Range Interpretation Comments Bacteria Spec Cult ACID-FAST BACILLUS AA 4+ Acid fast (test code = bacilli 6463-4) HHSHIV 1+2 Ab+HIV1 p24 Ag SerPl Ql [id number] 19:49:40 Test Item Value Reference Range Interpretation Comments HIV 1+2 Ab+HIV1 p24 Ag SerPl Ql [place] NEGATIVE Negative (test code = 03167-5) HHSCoronavirus, CoVID-19, [id number] 16:40:22 Test Item Value Reference Interpretation Comments Range COVID-19 Not Detected Not Detected INTERPRETATION: (SARS-COV-2) (test No detect able code = 12219-6) levels of SARS-CoV-2 Coronavirus (COVID-19) were present [...] its performance characteristics were verified by the [facility] molecular diagnostics laboratory and is authorized for clinical diagnostic use. This laboratory is certified under the Clinical Laboratory Improvement Amendments (CLIA) as qualified to perform high complexity clinical laboratory testing. Lab Interpretation Normal (test code = 78886-4) [facility], CoVID-19, [id number] 16:40:22 Test Item Value Reference Interpretation Comments Range COVID-19 Not Detected Not Detected INTERPRETATION: (SARS-COV-2) (test No detect able code = 77513-3) levels of SARS-CoV-2 Coronavirus (COVID-19) were present [...] its performance characteristics were verified by the [facility] molecular diagnostics laboratory and is authorized for clinical diagnostic use. This laboratory is certified under the Clinical Laboratory Improvement Amendments (CLIA) as qualified to perform high complexity clinical laboratory testing. Lab Interpretation Normal (test code = 21381-2) [place] Coleronavirus, CoVID-19, [id number] 16:40:22 Test Item Value Reference Interpretation Comments Range COVID-19 Not Detected Not Detected INTERPRETATION: (SARS-COV-2) (test No detect able code = 49332-6) levels of SARS-CoV-2 Coronavirus (COVID-19) were present [...] its performance characteristics were verified by the [facility] molecular diagnostics laboratory and is authorized for clinical diagnostic use. This laboratory is certified under the Clinical Laboratory Improvement Amendments (CLIA) as qualified to perform high complexity clinical laboratory testing. Lab Interpretation Normal (test code = 17257-5) [place], CoVID-19, [id number] 16:40:22 Test Item Value Reference Interpretation Comments Range COVID-19 Not Detected Not Detected INTERPRETATION: (SARS-COV-2) (test No detect able code = 68155-9) levels of SARS-CoV-2 Coronavirus (COVID-19) were present [...] its performance characteristics were verified by the [facility] molecular diagnostics laboratory and is authorized for clinical diagnostic use. This laboratory is certified under the Clinical Laboratory Improvement Amendments (CLIA) as qualified to perform high complexity clinical laboratory testing. Lab Interpretation Normal (test code = 46918-1) [facility]-CoV-2 RNA Resp Ql YOKASTA+[id number] 16:40:22 Test Item Value Reference Range Interpretation Comments Hospitalized? (test No code = 48486-3) ICU? (test code = No 53886-7) Symptomatic as defined No by CDC? (test code = 81966-3) Employed in Unknown Healthcare? (test code = 98591-9) Resident in a Unknown congregate care setting (including nursing homes, residential care for people with intellectual and developmental disabilities, psychiatric treatment facilities, group homes, board and care homes, homeless assisted, foster care or other): (test code = 79429-7) SARS-CoV-2 RNA Resp Ql NOT DETECTED Not Detected INTER PRETATION: No YOKASTA+probe (test code = detec table levels 81611-9) of SARS-CoV-2 Coronavirus (COVID-19) were present in [...] its performance characteristics were verified by the [facility] molecular diagnostics laboratory and is authorized for clinical diagnostic use. This laboratory is certified under the Clinical Laboratory Improvement Amendments (CLIA) as qualified to perform high complexity clinical laboratory testing.HHSHIV 1+2 Ab+HIV1 p24 Ag SerPl Ql [id number] 17:45:02 Test Item Value Reference Range Interpretation Comments HIV 1+2 Ab+HIV1 p24 Ag SerPl Ql [place] NEGATIVE Negative (test code = 02153-1) [id number] 23:16:25 Test Item Value Reference Range Interpretation Comments SALICYLATE (test code <10 mg/L = 9420117184) TRACY (test code = TRACY) Therapeutic Range: ? Analgesic and Antipyretic Use ? 20-100 mg/L ? ? Anti-Inflammatory Use ? 100-250 mg/L Toxic Range: ? Greater than 300 mg/L [facility] 23:16:15 Test Item Value Reference Range Interpretation Comments ALCOHOL (test code = <10 mg/dL 3760343106) TRACY (test code = TRACY) <10 Udoqyfvi15-288 Toxic>100 Depression of DIRECTOR LOAN>400 Fatalities Reported [facility]OPHEN2021-[facility]-01 23:16:10 Test Item Value Reference Range Interpretation Comments ACETAMINOP (test code = <10.0 10.0-30.0 L 0414287923) TRACY (test code = TRACY) Toxic: Greater than 200 ug/mL @ 4 hour post ingestion or greater than 50 ug/mL @ 12 hour post ingestion Lab Interpretation (test Abnormal code = 62092-7) [facility] (ALB, T.PRO, BILI T, BU/BC, ALT, AST, ALK PHOS)2021-01-30 23:14:14 Test Item Value Reference Range Interpretation Comments TOTAL BILI (test code = 7413049730) 0.8 mg/dL 0.1-1.1 BILI UNCON (test code = 4358349193) 0.6 mg/dL 0.1-1.1 BILI CONJ (test code = 8256975704) 0.0 mg/dL 0.0-0.3 T PROTEIN (test code = 7053514372) 7.5 g/dL 6.3-8.2 ALBUMIN (test code = 9549932645) 4.8 g/dL 3.5-5.0 ALK PHOS (test code = 1483237035) 63 U/L 34-122 ALTv (test code = 1742-6) 33 U/L 5-50 AST(SGOT) (test code = 4597509224) 36 U/L 13-40 Lab Interpretation (test code = Normal 24994-3) [facility] Metabolic Panel (NA, K, CL, CO2, GLUCOSE, BUN, CREATININE, CA)2021-01-30 23:13:54 Test Item Value Reference Range Interpretation Comments NA (test code = 142 mmol/L 135-145 2637486461) K (test code = 4.3 mmol/L 3.5-5.0 8051641209) CL (test code = 105 mmol/L 98-108 8216818651) CO2 TOTAL (test code 25 mmol/L 23-31 = 9499680586) AGAP (test code = 2-16 5505654937) BUN (test code = 17 mg/dL 7-23 7549315300) GLUCOSE (test code = 86 mg/dL 70-110 9329199422) CREATININE (test code 0.85 mg/dL 0.60-1.25 = 9053850827) CALCIUM (test code = 9.9 mg/dL 8.6-10.6 8932245745) eGFR (test code = mL/min/1.73m2 2656474351) TRACY (test code = TRACY) Association of [...] abnormalities in imaging tests). [facility] - COMPREHENSIVE DRUG [id number] 23:05:57 Test Item Value Reference Range Interpretation Comments AMPHET (test code = Presumptive Positive Negative A 6851250191) CHACORTA U (test code = Negative Negative 5949598616) BENZO U (test code = Presumptive Positive Negative A 1118521352) Cocaine Metabolite (test Negative Negative code = 3120752970) METHADONE (test code = Negative Negative 4581871975) OPIATES (test code = Presumptive Positive Negative A 2358967902) PCP (test code = Negative Negative 4163754971) THC (test code = Presumptive Positive Negative A 9318044571) TRACY (test code = TRACY) Urine Drug [...] testing). Lab Interpretation (test Abnormal code = 78220-4) [facility] (ID NOW RAPID TESTING)2021-01-30 22:34:55 Test Item Value Reference Range Interpretation Comments SARS-CoV-2 Rapid ID NOW Not Detected Not Detected (test code = 45411-3) TRACY (test code = TRACY) ID NOW COVID-19 Assay is an isothermal nucleic acid amplification test intended for the qualitative detection of nucleic acid from SARS-CoV-2 viral RNA in nasopharyngeal (REALTIME CAPTIONER) specimens. It is used under Emergency Use [...] indicated. Lab Interpretation Normal (test code = 86645-6) [facility]inalysis2021-05-01 22:30:19 Test Item Value Reference Range Interpretation Comments APPEARANCE (test code = Clear Clear 5513402851) COLOR (test code = Yellow Yellow 9579855276) PH (test code = 4.8-8.0 2777349562) SP GRAVITY (test code = 1.003-1.030 2733402798) GLU U QUAL (test code = Normal Normal 5743207130) BLOOD (test code = Negative Negative 8514099196) KETONES (test code = Negative Negative 5001316532) PROTEIN (test code = Negative Negative 2887-8) UROBILIN (test code = 2.0 mg/dL Normal A 0927949853) BILIRUBIN (test code = Negative Negative 0290578465) NITRITE (test code = Negative Negative 7764192328) LEUK DIONE (test code = Negative Negative 9285185797) RBC/HPF (test code = See_Comment [Autom ated message] 0087740185) The system TermSync generated this result transmit delroy reference range : 0 - 3 HPF. The refe rence range was not u sed to interpret th is result as normal/abnormal . WBC/HPF (test code = <1 See_Comment [Autom ated message] 6883036210) The system [employer] generated this result transmit delroy reference range : 0 - 5 HPF. The refe rence range was not u sed to interpret th is result as normal/abnormal . BACTERIA (test code = Negative Negative 8870746000) SQ EPITH (test code = <1 HPF 2754950464) Lab Interpretation (test Abnormal code = 91822-2) [facility] with Emonqxutcprb8229-12-17 22:19:35 Test Item Value Reference Range Interpretation [...] RDW-SD (test code = 42.8 fL 38.5-51.6 31454-5) RDW-CV (test code = 13.3 % 12.1-15.4 788-0) PLT (test code = See_Comment H [Automated 777-3) message] The sy stem which generated this result transmitted reference range : 150 - 328 10*3/ ?L. The reference r maru was not used to interpret this result as normal/abnormal . MPV (test code = 9.9 fL 9.8-13.0 76087-3) NRBC/100 WBC (test See_Comment [Automat ed code = 2810533515) message] The system which generated this result transmitted reference range : 0.0 - 10.0 /100 WBCs. The refer ence range was not u sed to interpret th is result as normal/abnormal . NRBC x10^3 (test code <0.01 See_Comment [Auto mated = 9350829438) message] The s ystem which generated this result transmitted reference range : 10*3/?L. The reference range was not used to interpret this result as normal/abnormal . GRAN MAT (NEUT) % 79.2 % (test code = 770-8) IMM GRAN % (test code 0.50 % = 7767114426) LYMPH % (test code = 14.8 % 736-9) MONO % (test code = 4.9 % 5905-5) EOS % (test code = 0.2 % 713-8) BASO % (test code = 0.4 % 706-2) GRAN MAT x10^3(ANC) 9.77 10*3/uL 1.99-6.95 H (test code = 9902060400) IMM GRAN x10^3 (test 0.06 10*3/uL 0.00-0.06 code = 0670449533) LYMPH x10^3 (test code 1.82 10*3/uL 1.09-3.23 = 731-0) MONO x10^3 (test code 0.60 10*3/uL 0.36-1.02 = 742-7) EOS x10^3 (test code = 0.03 10*3/uL 0.06-0.53 L 711-2) BASO x10^3 (test code 0.05 10*3/uL 0.01-0.09 = 704-7) Lab Interpretation Abnormal (test code = 80896-3) [facility] [id number] 20:48:00 Test Item Value Reference Range Interpretation Comments COVID 19 INHOUSE AG (test code = NEGATIVE [id number]) URINALYSIS [id number] 16:11:00 Test Item Value Reference Range Interpretation [...] Urine Source? Clean CatchDRUGS OF ABUSE SCREEN [id number] 16:11:00 Test Item Value Reference Range Interpretation Comments URN COCAINE (test code = NEGATIVE See_Comment [A utomated message] COCAURN) The system TermSync generated this result transmitted ref erence range: [...] See_Comment [A utomated message] OPIATURN) The system TermSync generated this result transmitted ref erence range: [...] [A utomated message] = METHAURN) The system TermSync generated this result transmitted ref erence range: <300 ng/ mL. The reference r maru was not used to interpret this result as normal/abnor mal. Urine Source? Clean CatchURINALYSIS [id number] 15:45:00 Test Item Value Reference Range Interpretation [...] Urine Source? Clean CatchDRUGS OF ABUSE SCREEN [id number] 15:45:00 Test Item Value Reference Range Interpretation Comments URN COCAINE (test code = NEGATIVE See_Comment [A utomated message] COCAURN) The system TermSync generated this result transmitted ref erence range: [...] See_Comment [A utomated message] OPIATURN) The system TermSync generated this result transmitted ref erence range: [...] [A utomated message] = METHAURN) The system Term[employer] generated this result transmitted ref erence range: <300 ng/ mL. The reference r maru was not used to interpret this result as normal/abnor mal. Urine Source? Clean CatchURINALYSIS [id number] 14:21:00 Test Item Value Reference Range Interpretation [...] Urine Source? Clean CatchDRUGS OF ABUSE SCREEN [id number] 14:21:00 Test Item Value Reference Range Interpretation Comments URN COCAINE (test code = See_Comment [A utomated message] COCAURN) The system TermSync generated this result transmitted ref erence range: [...] See_Comment [Automated message] = AMPHETURN) The system TermSync generated this result transmitted ref erence range: <1000 ng /mL. The reference r maru was not used to interpret this result as normal/abnor mal. URN BARBITURATE (test code See_Comment [Automated message] = BARBITURN) The system TermSync generated this result transmitted ref erence range: [...] See_Comment [A utomated message] OPIATURN) The system TermSync generated this result transmitted ref erence range: [...] = See_Comment [Automated message] METHAURN) The system Term[employer] generated this result transmitted ref erence range: <300 ng/ mL. The reference range was not used to int erpret this result as normal/abnormal . Urine Source? Clean CatchURINALYSIS [id number] 14:18:00 Test Item Value Reference Range Interpretation [...] Urine Source? Clean CatchDRUGS OF ABUSE SCREEN [id number] 14:18:00 Test Item Value Reference Range Interpretation Comments URN COCAINE (test code = See_Comment [A utomated message] COCAURN) The system TermSync generated this result transmitted ref erence range: [...] See_Comment [Automated message] = AMPHETURN) The system TermSync generated this result transmitted ref erence range: <1000 ng /mL. The reference r maru was not used to interpret this result as normal/abnor mal. URN BARBITURATE (test code See_Comment [Automated message] = BARBITURN) The system TermSync generated this result transmitted ref erence range: [...] See_Comment [A utomated message] OPIATURN) The system TermSync generated this result transmitted ref erence range: [...] = See_Comment [Automated message] METHAURN) The system TermSync generated this result transmitted ref erence range: <300 ng/ mL. The reference range was not used to int erpret this result as normal/abnormal . Urine Source? Clean CatchBASIC METABOLIC [id number] 12:13:00 Test Item Value Reference Range Interpretation [...] Modifi ed MDRD (test code = GFR) formula.[facility] kidney disease is defined as eith er kidney damageor GFR <60 mL/min/1.73 m2 for >3 months. [Automated mess age] The system TermSync generated this result transmitted ref erence range: >=60. Th e reference range was not used to int erpret this result as normal/abnormal . CREATININE (test 1.00 mg/dL 0.7-1.3 N code = CREAT) BUN/CREATININE RATIO 17.3 10-20 N (test code = BUN/CREA) CALCIUM (test code = 9.9 mg/dL 8.5-10.1 N CA) HEPATIC FUNCTION [id number] 12:13:00 Test Item Value Reference Range Interpretation [...] range due ALKP) to change in reagent. [id number] 12:13:00 Test Item Value Reference Range Interpretation Comments ACETAMINOPHEN (test < 10 mcg/mL 10-30 L A RANGE OF 10-30 code = ACET) mcg/mL IS A THERAPEUTIC RAN GE. TOXIC CONCENTRATIONS: >150 mcg/mL AT 4 ANTONIO RS AFTER INGESTION >= 50 mcg/mL AT 12 HOURS AFTER INGESTION [id number] 12:13:00 Test Item Value Reference Range Interpretation Comments SALICYLATE (test code = RENALDO) < 3.0 mg/dL 2.8-20.0 N [id number] 12:13:00 Test Item Value Reference Range Interpretation [...] [facility] W/O [id number] 11:49:00 Test Item Value Reference Range Interpretation [...] 6.7-11.0 N = MPV) COVID 19 INHOUSE [id number] 00:12:00 Test Item Value Reference Range Interpretation Comments COVID 19 INHOUSE AG (test code = NEGATIVE [id number]) URINALYSIS [id number] 20:58:00 Test Item Value Reference Range Interpretation [...] Urine Source? Clean CatchDRUGS OF ABUSE SCREEN [id number] 20:58:00 Test Item Value Reference Range Interpretation Comments URN COCAINE (test code = NEGATIVE See_Comment [A utomated message] COCAURN) The system TermSync generated this result transmitted ref erence range: [...] See_Comment [A utomated message] OPIATURN) The system TermSync generated this result transmitted ref erence range: <300 ng/ mL. The reference r maru was not used to interpret this result as normal/abnor mal. URN PHENCYCLIDINE (PCP) NEGATIVE See_Comment [Au tomated message] (test code = PHENCURN) The s BioBeatstem which generated this result transmitted ref erence range: <25 ng/m L. The reference range was not used to int erpret this result as normal/abnormal . URN METHADONE (test code NEGATIVE See_Comment [A utomated message] = METHAURN) The system TermSync generated this result transmitted ref erence range: <300 ng/ mL. The reference r maru was not used to interpret this result as normal/abnor mal. Urine Source? Clean CatchBASIC METABOLIC [id number] 20:58:00 Test Item Value Reference Range Interpretation [...] >3 months. [Automated mess age] The system TermSync generated this result transmitted ref erence range: >=60. Th e reference range was not used to int erpret this result as normal/abnormal . CREATININE (test 0.80 mg/dL 0.7-1.3 N code = CREAT) BUN/CREATININE RATIO 19.3 10-20 N (test code = BUN/CREA) CALCIUM (test code = 8.8 mg/dL 8.5-10.1 N CA) HEPATIC FUNCTION [id number] 20:58:00 Test Item Value Reference Range Interpretation [...] range due ALKP) to change in reagent. [id number] 20:58:00 Test Item Value Reference Range Interpretation Comments TROPONIN-I (test code = TROPI) < 0.006 ng/mL 0-0.045 N [id number] 20:58:00 Test Item Value Reference Range Interpretation Comments ACETAMINOPHEN (test < 10 mcg/mL 10-30 L A RANGE OF 10-30 code = ACET) mcg/mL IS A THERAPEUTIC RAN GE. TOXIC CONCENTRATIONS: >150 mcg/mL AT 4 ANTONIO RS AFTER INGESTION >= 50 mcg/mL AT 12 HOURS AFTER INGESTION [id number] 20:58:00 Test Item Value Reference Range Interpretation Comments SALICYLATE (test code = RENALDO) < 3.0 mg/dL 2.8-20.0 N [id number] 20:58:00 Test Item Value Reference Range Interpretation [...] [facility] HEAD/BRAIN W/O [id number] 20:52:00 [facility]Name: TEJ GUADALUPE : 1985 Sex: M Name: TEJ GUADALUPE [facility] : 1985 Age/S: 35 / M Linh Tay Unit #: [id number] Loc: DEISY Saenz [address] Phys: Shaggy Morrow MD Acct: [id number] Dis Date: Status: PRE ER PHONE #: [phone] Exam Date: 12/13/20202017 FAX #: [phone] Reason: CONFUSION EXAMS: CPT CODE: [id number] CT HEAD/BRAIN W/O CONT 49634 HISTORY: CONFUSION TECHNIQUE: Noncontrast 2.5 mm axial [...] t.SDR.RR31 Orig Print D/T: S: 12/13/2020 (2054) PAGE 1 Signed Report URINALYSIS [id number] 20:39:00 Test Item Value Reference Range Interpretation [...] Urine Source? Clean CatchDRUGS OF ABUSE SCREEN [id number] 20:39:00 Test Item Value Reference Range Interpretation Comments URN COCAINE (test code = See_Comment [A utomated message] COCAURN) The system TermSync generated this result transmitted ref erence range: [...] See_Comment [Automated message] = AMPHETURN) The system TermSync generated this result transmitted ref erence range: <1000 ng /mL. The reference r maru was not used to interpret this result as normal/abnor mal. URN BARBITURATE (test code See_Comment [Automated message] = BARBITURN) The system TermSync generated this result transmitted ref erence range: [...] See_Comment [A utomated message] OPIATURN) The system TermSync generated this result transmitted ref erence range: [...] = See_Comment [Automated message] METHAURN) The system TermSync generated this result transmitted ref erence range: <300 ng/ mL. The reference range was not used to int erpret this result as normal/abnormal . Urine Source? Clean CatchURINALYSIS [id number] 20:29:00 Test Item Value Reference Range Interpretation [...] Urine Source? Clean CatchDRUGS OF ABUSE SCREEN [id number] 20:29:00 Test Item Value Reference Range Interpretation Comments URN COCAINE (test code = See_Comment [A utomated message] COCAURN) The system TermSync generated this result transmitted ref erence range: [...] See_Comment [Automated message] = AMPHETURN) The system TermSync generated this result transmitted ref erence range: <1000 ng /mL. The reference r maru was not used to interpret this result as normal/abnor mal. URN BARBITURATE (test code See_Comment [Automated message] = BARBITURN) The system TermSync generated this result transmitted ref erence range: [...] See_Comment [A utomated message] OPIATURN) The system TermSync generated this result transmitted ref erence range: [...] = See_Comment [Automated message] METHAURN) The system TermSync generated this result transmitted ref erence range: <300 ng/ mL. The reference range was not used to int erpret this result as normal/abnormal . Urine Source? Clean CatchCBC W/O [id number] 20:22:00 Test Item Value Reference Range Interpretation [...] Notes Date/Time Note Provider Source 2022-06-01 16:47:23 6843-71-36L22:47:23Associated Sil Palomares [facility] Order(s): CONSULT TO [facility] System PHARMACY-AMINOGLYCOSIDESFormatt ing of this note is [...] with any questions. Sil Soliz, Pharm.D., BCIDPClinical Marketing Budget Analyst - Infectious DiseasesCisco: [id number] signed by Sil SolizJ[facility] at 06/01/2022 4:48 PM OAI08413-8Gxxpjgo ebtnEC0856-91-92V49:48:27Consul t noteTXT1.2.840.058195.1.13.43.2 .7.2.795413|[id number] le for patient kcqx90169-0Ukjgdgb [id number] Jelani Soliz [id number] 1CKBL6215-99-10S91:48:271.2.840 .615383.1.72.3.15|1.2.840.29426 0.1.13.43.2.7.2.727879_23014037 31 2022-05-31 16:00:25 3187-56-49U66:00:25Formatting [facility] of this note is different from [...] with any questions. Sil Soliz, Pharm.D., BCIDPClinical Marketing Budget Analyst - Infectious DiseasesCisco: [id number] signed by Sil Soliz [facility] at 05/31/2022 4:00 PM FAM63201-7Evlukpi vwitEO1274-65-27F30:00:59Consul t noteTXT1.2.840.180666.1.13.43.2 .7.2.158621|[id number] for patient mbsa93706-4Tyyzapf [address]TXTX[address] 5LKET4306-16-41C18:00:591.2.840 .015043.1.72.3.15|1.2.840.46141 0.1.13.43.2.7.2.727879_23004519 47 2022-05-30 14:28:02 8161-40-29U42:28:02Formatting [facility] of this note is different from [...] hesitate to contact us with any questions. iSl Soliz, Pharm.D., BCIDPClinical Marketing Budget Analyst - Infectious DiseasesCisco: [id number] signed by Sil Soliz [facility] at 05/30/2022 2:36 PM JDT13894-3Rpicsbv cecoXX0120-94-16L53:36:01Consul t noteTXT1.2.840.848675.1.13.43.2 .7.2.809849|[id number] for patient gqje16610-4Imjrjlu [facility]25[address] [facility] HospitalQsihHgtimfvOusjkhpHHDB461418884 3UAJF7766-25-78Q99:36:011.2.840 .149364.1.72.3.15|1.2.840.63391 0.1.13.43.2.7.2.727879_22993779 11 2022-05-29 12:08:26 6362-53-35C97:08:26Formatting [facility] of this note is different from [facility] S ysm the original.Pharmacy Aminoglycoside Monitoring NoteIndication: NTM SSTI/abscessDay of therapy: 5 Target concentration: dosing per [place] nomogram, targeting goal peak ~25-45 mcg/mL, trough [...] contact us with any questions. Mariam Lepe [facility].BCOPClinical Marketing Budget Analyst Hematology/OncologyCisco : [phone] signed by Mariam Lepe [facility] at 05/29/2022 12:09 PM FEK70815-4Fyzxyni tnzuAB7804-46-15O91:09:49Consul t noteTXT1.2.840.372031.1.13.43.2 .7.2.738034|[id number] for patient nkah54698-0Sbcpxul xjstCT72317967Uagzney Rostane [address]TXTX[address] 1VHXX0976-24-91A99:09:491.2.840 .845598.1.72.3.15|1.2.840.90611 0.1.13.43.2.7.2.727879_22986326 42 2022-05-28 10:27:53 1331-41-19H30:27:53Formatting [facility] of this note is different from Keagan smith the original.Pharmacy Aminoglycoside Monitoring NoteIndication: NTM SSTI/abscessDay of therapy: 4 Target concentration: dosing per [place] nomogram, targeting goal peak ~25-45 mcg/mL, trough [...] contact us with any questions. Mariam Lepe [facility].BCOPClinical Marketing Budget Analyst Hematology/OncologyCisco : [phone] signed by Mariam Lepe [facility] at 05/28/2022 10:29 AM GEZ52085-7Evfjbbc xlggVF5413-55-98B56:29:36Consul t noteTXT1.2.840.603136.1.13.43.2 .7.2.147911|[id number] for patient rlih67010-4Gexzxya [facility]2525 [facility] HospitalQjdzLfixpqrDmrcaunMOYY027591032 1KVYM4076-17-74O82:29:361.2.840 .155836.1.72.3.15|1.2.840.94993 0.1.13.43.2.7.2.727879_22985034 61 2022-05-27 12:23:47 2156-38-67R82:23:47Formatting Ruchi Olsen [facility] of this note is different from Keagan smith the original.Pharmacy Aminoglycoside Monitoring NoteIndication: NTM SSTI/abscessDay of therapy: 3 Target concentration: dosing per [place] nomogram, targeting goal peak ~25-45 mcg/mL, trough [...] us with any questions. Ruchi Olsen, PharmD, [facility] GRANGECPPhone: [phone] signed by Ruchi OlsenJOHN [facility]. [facility] at 05/27/2022 1:04 PM WWT11806-2Jidmchs oixpAY8946-03-38G17:04:50Consul t noteTXT1.2.840.533408.1.13.43.2 .7.2.031120|[id number] for patient mdci72037-1Kyctoqa twpjFU115840398Comi Raúl [id number] 3BUDV4514-24-88O25:04:501.2.840 .241345.1.72.3.15|1.2.840.44197 0.1.13.43.2.7.2.727879_22980758 11 2022-05-26 09:18:39 3166-83-46Y02:18:39Formatting [facility] of this note is different from S ystem the original.Pharmacy Aminoglycoside Monitoring NoteIndication: NTM SSTI/abscessDay of therapy: 2 Target concentration: dosing per [place] nomogram, targeting goal peak ~25-45 mcg/mL, trough ~5 mcg/mL Concomitant antibiotics: Azithromycin, tigecyclineAllergies: No known allergies Pertinent Objective Labs: Date dose/frequency concentration (peak/trough/random) 05/26 800mg q24h 5.9 (9h random) Microbiology:pending Assessment:1. CrCl: >120,Scr/BUN stable, 2. Continues on amikacin 800mg (10mg/kg) q24h 3. Random 9h level obtained today demonstrates dose appropriate per [place] nomogramPlan: 1. Will Continue current dose2. Labs Ordered: will order 2 levels: 2-h and 8-h post dose levels to confirm Thank you for the opportunity to participate in the care of this patient. Please do not hesitate to contact us with any questions. Ruchi Olsen, PharmD, [facility]ENTERPhone: [phone] signed by Ruchi Olsen, [facility] at 05/26/2022 9:36 AM KRH90403-4Dzvbalr molgTS7775-69-83J83:36:50Consul t noteTXT1.2.840.764728.1.13.43.2 .7.2.447168|[id number] for patient wwwr81610-4Mpixcno [facility]2525 [facility] HospitalVzedQqogiqbQxniyqbFSCP382009411 8VOJC3133-77-52P97:36:501.2.840 .653217.1.72.3.15|1.2.840.16588 0.1.13.43.2.7.2.727879_22969803 20 2022-05-25 08:07:02 4646-20-59J95:07:02Associated [facility] Order(s): IP CONSULT TO System INFECTIOUS [...] another attempt at antibiotics and I&D at [facility]. He came back with worsening lesions and was admitted for same. We are consulted for his cultures growing AFB 4+. 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 for ID and sensis- growth from [...] follow this fascinating caseArash Obando MD, PhD [facility] Infectious DiseasesProvider #[id number] 2021 8:09 AM H istory Obtained From: [...] homeless. He [place] travelled [place] of [place] recently and does not have any sick [...] and documented in the appropriate sections in [facility].Immunization history: There is no immunization history on [...] Data: All labs, images, and data reviewed. 35173-2Wbmpgmg sezbBQ3653-98-89M09:04:27Consul t noteTXT1.2.840.706126.1.13.43.2 .7.2.609854|[id number] for patient czmo22382-4Thpayjj [id number] 5TMLW1728-75-64J60:04:271.2.840 .763388.1.72.3.15|1.2.840.86260 0.1.13.43.2.7.2.727879_22958935 10 2022-05-23 21:39:21 4571-83-09U28:39:21Associated [facility] Order(s): IP CONSULT TO HAND Sys [...] obtained and negative- PRS will continue to followChJUAN Paynelastic and Reconstructive Surgery, QVM5VqzeqqEstelle Doheny Eye HospitalPager: [phone] 2021 9:39 PMSubjective: Chief Complaint: forearm painHistory [...] with no changes. No need to repeat 30970-8Orfleit fwpaIT480516NfemecafqtAdrian Anderson B1.2.840.293357.1.13.43.2.7.2.8 85167HeanqdkvypPtdwkJjtog OWM3929-06-35P02:42:00Consult noteTXT1.2.840.467822.1.13.43.2 .7.2.687705|[id number] for patient hkzd11948-4Nvcvveo [facility]2525 Natalie DisnPdvgtvsGvgknhdAQPU621046275 1UETI1350-19-03B67:50:061.2.840 .583503.1.72.3.15|1.2.840.48066 0.1.13.43.2.7.2.727879_22947751 43 History and Physical Notes Date/Time Note Provider Source 2022-05-23 22:01:59 1722-50-52A20:01:59Formatting [facility] of this note is different System [...] CODEEmergency Contact: Primary Emergency Contact: Jake GUADALUPE, Eran Xhfel [facility] MBB8LesnnyEstelle [facility]10:02 PM, 05/23/2022 Chief Complaint: forearm pain [...] alert and orientedLabs & Imaging: reviewed in epic. ssociated attestation - Hank Kilpatrick MD - 05/24/2022 2:10 AM CDT Please see my separate note for my attestation.[id number] and physical [id number].13.43. 2.7.2.101040TgbfuEehdchH, YM6678-58-22C61:10:26History and physical noteTXT1.2.840.234525.1.13.43 .2.7.2.124238|[id number] ilable for patient hjvj96143-1Drlnmdj and physical noteLNInternal MedicineInternal MedicineToledo Hospital25[address] [facility] Hosp[id number] 070OZIK7848-85-81J99:10:261.2 .840.319603.1.72.3.15|1.2.840 .987114.1.13.43.2.7.2.727879_ [id number] Procedure Notes Date/Time Note Provider Source 2022-05-31 08:35:51 [id number]:35:51Procedure(s): I& D [facility] OF ABSCESS WITH PACKING System (COMPLICATED)Pre-Procedure [...] procedure well and there were no complicationsChristopher Germán [facility] HOSPITALlastic [facility] Reconstructive Surgery, [id number] [place], [place] [address]Pager: [phone] 2021 8:36 AM [id number] [id number], Jessie1.2.840.230778.1.13.43.2.7.2.83 5697LuHciqidUU2717-21-40U21:00:54Proc [facility] noteTXT1.2.840.140509.1.13.43.2.7.2.7 20643|[id number] for patient qfoj24197-4Ukjqganmq noteLNToledo Hospital2525 [facility] Hospit[id number] 315-97-88X65:49:121.2.840.917169.1.72 .3.15|1.2.840.440263.1.13.43.2.7.2.72 [id number] 2022-05-24 16:29:09 4965-05-80I10:29:09Procedure(s): I& D [facility] OF ABSCESS WITH PACKING System (COMPLICATED); [...] 1Dressings: AppliedEstimated Blood Loss: MinimalSpecimens Collected: Culture p8Luoxkwhfafwka: nonePrimary Proceduralist: MULU Carrilloupervising Physician: JUAN Andersonrocedure [...] and sent to the microbiology lab.Gabe Dunlap, [facility]ATION HOSPITALlastic and Reconstructive Surgery, [id number] [place], [place] [address]Pager: [phone] 2021 4:30 PM 99601-4Fcexazvgr [id number] Anderson B1.2.840.030447.1.13.43.2.7.2.422508V maribellhMMoshe BBY2728-01-97Z30:42:01Procedure noteTXT1.2.840.796945.1.13.43.2.7.2.7 91321|[id number] for patient tiyf42152-7Bvlpgqyfb noteMorgan [facility]'s Hospital25[address] [facility] Hospit[id number] 081-15-71I73:41:491.2.840.280647.1.72 .3.15|1.2.840.452995.1.13.43.2.7.2.72 [id number]
[2023-07-25] MEDS ORDERED: clonazePAM 1 MG TAB ONE (09:01)
[2023-07-25] MEDS ORDERED: TDAP (DIPHTH,PERTUSS(ACELL),TET VAC) 0.5 ML VIAL IMVAC ONE (09:02)
[2023-07-25] MEDS ORDERED: DIAZEPAM 10 MG/2 ML INJ SYRINGE ONE (09:02)
[2023-07-25] MEDS ORDERED: NA CHLORIDE 0.9% 1,000 ML ONE ×2 (09:02→13:31)
[2023-07-25 09:10] LABS: Specific Gravity 1.024 (1.005-1.030); Urine Bacteria None Seen /HPF (<20); Urine Bilirubin NEGATIVE (Negative); Urine Blood Negative (Negative); Urine Clarity Turbid (Clear); Urine Color Yellow (Yellow); Urine Glucose NEGATIVE (Negative); Urine Mucus 1+ /HPF (None Seen); Urine Protein TRACE (Negative); Urine RBC <5 /HPF (None Seen); Urine Sperm Present (None Seen); Urine Urobilinogen Normal (Normal)
[2023-07-25 09:46] LABS: ALT/SGPT 32 U/L (16-61); AST/SGOT 21 U/L (15-37); Albumin 4.6 g/dL (3.4-5.0); Alkaline Phosphatase 55 U/L (45-117); BUN Blood Urea Nitrogen 24 mg/dL (7-18); Bicarbonate 21 mEq/L (21-32); Bilirubin Direct 0.5 mg/dL (0-0.2); Bilirubin Indirect, Calculated 1.8 mg/dL (0.2-0.8); Bilirubin Total 2.3 mg/dL (0.2-1.0); Glomerular Filtration Rate 83 ml/min (=/>90); Glucose Level 130 mg/dL (74-106); Potassium 3.4 mEq/L (3.5-5.1); Protein, Total 8.8 g/dL (6.4-8.2); Sodium Level 136 mEq/L (136-145)
[2023-07-25 09:54] LABS: Barbiturates NEGATIVE (NEGATIVE); Benzodiazepines POSITIVE (NEGATIVE); Cocaine NEGATIVE (NEGATIVE); METHAMPHETAM NEGATIVE (NEGATIVE); Methadone ND (NEGATIVE); Opiates NEGATIVE (NEGATIVE); Phencyclidine NEGATIVE (NEGATIVE); THC Cannibis POSITIVE (NEGATIVE)
[2023-07-25] MEDS ORDERED: THIAMINE 200 MG/2 ML INJ ONE (10:00)
[2023-07-25] MEDS ORDERED: MULTIVITAMINS IV ONE (10:00)
[2023-07-25] MEDS ORDERED: [UNRECOGNIZED DRUG - OTHER] IV ONE (10:00)
[2023-07-25] MEDS ORDERED: THIAMINE HCL IV ONE (10:00)
[2023-07-25] MEDS ORDERED: FOLIC ACID IV ONE (10:00)
--- NOTE | 2023-07-25 10:24 | ER ---
Nurse's Notes [facility] [place] Name: Anthony Au Age: 38 yrs Sex: Male : 1985 Arrival Date: 07/25/2023 Time: 07:54 Bed 18 Private MD: Diagnosis: Altered mental status, unspecified;Sedative, hypnotic or anxiolytic use, unspecified with withdrawal delirium;Hypokalemia;Suicidal ideations;Suicide attempt Presentation: 07/25 08:04 Chief complaint: Patient states: father caught him trying to cut his right wrist, iw laceration noted to wrist, not bleeding, pt withdrawing from benzos, hallucinating. Coronavirus screen: At this time, the client does not indicate any symptoms associated with coronavirus-19. Ebola Screen: Patient negative for fever greater than or equal to 101.5 degrees Fahrenheit, and additional compatible Ebola Virus Disease symptoms Patient denies exposure to infectious person. Patient denies travel to an Ebola-affected area in the 21 days before illness onset. No symptoms or risks identified at this time. Initial Sepsis Screen: Does the patient meet any 2 criteria? No. Patient's initial sepsis screen is negative. Does the patient have a suspected source of infection? No. Patient's initial sepsis screen is negative. Risk Assessment: Do you want to hurt yourself or someone else? Patient reports desire/thoughts of hurting themselves or someone else. Provider notified. Onset of symptoms was July 25, 2023. 08:04 Method Of Arrival: Ambulatory iw 08:04 Acuity: MARKY 2 iw Historical: - Allergies: 08:07 No Known Allergies; iw - PMHx: 08:06 Anxiety; Asthma; Bipolar disorder; Depression; detox seizures; scalp laceration repair.;iw - PSHx: 08:06 I\\T\\D; iw Historical Immunization: - Administered Vaccines 14:03 NS 0.9% IV 1000 ml mb9 13:52 Rocephin IV 1 grams db 13:25 Nicoderm CQ Transdermal Patch 21 mg/24 hr 1 patches db 11:55 Potassium PO Effervescent Tablet 25 mEq db 10:00 Thiamine IV 100 mg db 09:55 Banana Bag - (NS 0.9% IV 1000 ml, foLIC Acid IVPB 1 mg, Thiamine IV 100 mg, db Multivitamin IV 1 amp) 09:21 NS 0.9% IV 1000 ml ld1 09:20 Tetanus Toxoid,Adsorbed IM 0.5 ml ld1 Net Front End Developer: [employer]; Exp: Sat Feb 22 2025; Lot #: [id number]; Series: 1 of 1; Patient Consent: Obtained; Date/Time: ; Source Name: Anthony Au; Source Relationship: Self; Address Information: [address] [place] [address]; ; Education: Provided; VIS Presented Date: ; VIS Publication: Tetanus/Diphtheria (Td) Vaccine VIS 01/10/2017 (historic) 09:20 Diazepam IVP 2 mg ld1 09:20 clonazePAM PO 2 mg ld1 - Immunization history:: Adult Immunizations up to date. - Family history:: not pertinent. - Social history:: Smoking status: Patient denies any tobacco usage or history of. Patient/guardian denies using alcohol. Screenin:59 [facility] ED Fall Risk Assessment (Adult) History of falling in the last 3 months, ld1 including since admission No falls in past 3 months (0 pts). Abuse screen: Denies threats or abuse. Denies injuries from another. Nutritional screening: No deficits noted. Tuberculosis screening: No symptoms or risk factors identified. Assessment: 07:59 General: Appears uncomfortable, Behavior is anxious, inappropriate for age. ld1 07:59 Pain: Denies pain. Neuro: Level of Consciousness is awake, alert, confused, Oriented to ld1 none. Cardiovascular: Capillary refill < 3 seconds Patient's skin is warm and dry. Rhythm is sinus tachycardia. Respiratory: Airway is patent Respiratory effort is even, unlabored. GI: Abdomen is flat, non-distended. : No signs and/or symptoms were reported regarding the genitourinary system. EENT: No signs and/or symptoms were reported regarding the EENT system. Derm: No signs and/or symptoms reported regarding the dermatologic system. Musculoskeletal: No signs and/or symptoms reported regarding the musculoskeletal system. 09:05 Reassessment: Patient appears in no apparent distress at this time. Patient and/or ld1 family updated on plan of care and expected duration. Pain level reassessed. PATIENT APPEARS ANXIOUS PACING IN ROOM. FAMILY AT BEDSIDE. General: Appears uncomfortable, Behavior is cooperative, agitated, anxious. 10:09 Reassessment: Patient appears in no apparent distress at this time. Patient and/or db family updated on plan of care and expected duration. Pain level reassessed. Patient states symptoms have improved. General: Appears in no apparent distress. comfortable, Behavior is calm, cooperative, quiet. 15:33 Reassessment: Patient appears in no apparent distress at this time. Patient and/or db family updated on plan of care and expected duration. Pain level reassessed. Patient is alert, oriented x 3, equal unlabored respirations, skin warm/dry/pink. FAMILY ARE AT BEDSIDE. General: Appears comfortable, Behavior is calm. 17:04 Reassessment: Patient appears in no apparent distress at this time. Patient and/or db family updated on plan of care and expected duration. Pain level reassessed. Patient is alert, oriented x 3, equal unlabored respirations, skin warm/dry/pink. PT RESTING. Psych: 09:05 [place] Suicide Severity Screening: In the past month, have you wished you were ld1 or wished you could go to sleep and not wake up? Patient responds "yes." "In the past month, have you actually had any thoughts of killing yourself?" Patient responds "yes." "In your lifetime, have you ever done anything, started to do anything, or prepared to do anything to end your life?" Patient responds "yes.". Subjective: Patient's mood is irritable, Delusions are PT THINKS SOMEONE IS TRYING TO HURT HIM Hallucinations are NOT ANSWERING Having thoughts of suicide. Plan for suicide is CUTTING SELF. Objective: Patient is cooperative, restless, Speech is rambling, Affect is inappropriate, Patient has mutilated themselves by LACERATION TO RIGHT WRIST. Interventions: Removed personal items and placed in bag. Patient placed in hospital gown. Searched person for dangerous items. Urine collected and sent for urine drug test. Belonging list filled out. Patient reassessed during use of restraints. Patient is physically safe. Patient's respirations are even and unlabored. Assisted patient in de-escalation of behavior by removing stimuli causing behavior where possible. Safety Checks: Personal items have been removed. Door is open. Visitors are present. Patient uses marijuana. Commitment: Patient will be a voluntary commitment. 09:30 [place] Suicide Severity Screening: In the past month, have you wished you were db or wished you could go to sleep and not wake up? Patient responds "No." Patient responds "yes." "In the past month, have you actually had any thoughts of killing yourself?" Patient responds "yes." "In your lifetime, have you ever done anything, started to do anything, or prepared to do anything to end your life?" Patient responds "yes.". Vital Signs: 08:04 BP 135 / 110; Pulse 146; Resp 19; Temp 99.9(O); Pulse Ox 100% ; Weight 79.38 kg; Height iw 5 ft. 8 in. ; 09:24 Pulse 117; Resp 28; Pulse Ox 100% on R/A; ld1 10:09 Pulse 114; Resp 18; Pulse Ox 96% ; db 11:54 BP 138 / 102; Pulse 115; Pulse Ox 98% on R/A; ds4 16:06 BP 140 / 98; Pulse 108; Resp 18; Temp 97.7; Pulse Ox 98% ; ds4 21:07 BP 135 / 103; Pulse 96; Resp 20; Temp 98.4(O); Pulse Ox 99% ; rv 08:04 Body Mass Index 26.61 (79.38 kg, 172.72 cm) iw Gering Coma Score: 21:07 Eye Response: spontaneous(4). Motor Response: obeys commands(6). Verbal Response: rv confused(4). Total: 14. ED Course: 07:58 Patient arrived in ED. as6 07:59 River Kang MD is Attending Physician. irvin 07:59 Patient has correct armband on for positive identification. Placed in gown. Bed in low ld1 position. Call light in reach. Side rails up X2. Seizure precautions initiated. monitor and storage bin tender on. Pulse ox on. NIBP on. Noise minimized. 07:59 No provider procedures requiring assistance completed. Inserted saline lock: 20 gauge ld1 in right antecubital area, using aseptic technique. Blood collected. 08:06 Triage completed. iw 08:10 Arm band placed on. iw 09:06 Gabi Paulson, RN is Primary Nurse. iw 10:20 Edwin Manzano MD is Hospitalizing Provider. irvin 15:31 Jena Willams, VINI is Primary Nurse. db 22:03 Patient admitted, IV remains in place. rv Administered Medications: 09:20 Drug: Tetanus Toxoid,Adsorbed IM 0.5 ml IM once; Provide Vaccine Information Statement ld1 (VIS). {Net Front End Developer: [employer]; Exp: Sat Feb 22 2025; Lot #: [id number]; Series: 1 of 1; Patient Consent: Obtained; Date/Time: ; Source Name: Anthony Au; Source Relationship: Self; Address Information: [address] [place] [address]; ; Education: Provided; VIS Presented Date: ; VIS Publication: Tetanus/Diphtheria (Td) Vaccine VIS 01/10/2017 (historic)} Route: IM; Site: right deltoid; 09:20 Drug: Diazepam IVP 2 mg IVP once Route: IVP; Site: right antecubital; ld1 09:20 Drug: clonazePAM PO 2 mg PO once Route: PO; ld1 09:21 Drug: NS 0.9% IV 1000 ml IV at 1 bolus Per protocol; 1000 mL bolus Route: IV; Rate: 1 ld1 bolus; Site: right antecubital; 09:55 Drug: Banana Bag - (Multivitamin IV 1 amp, NS 0.9% IV 1000 ml, Thiamine IV 100 mg, db foLIC Acid IVPB 1 mg) IV at 500 calculated rate once Route: IV; Rate: 500 calculated rate; Site: right antecubital; 10:00 Drug: Thiamine IV 100 mg IV at bolus once Route: IV; Rate: bolus; Site: right db antecubital; 11:55 Drug: Potassium PO Effervescent Tablet 25 mEq PO once; dissolve in 4 ounces of water or db juice Route: PO; 13:25 Drug: Nicoderm CQ Transdermal Patch 21 mg/24 hr 1 patches Transdermal once {Note: RIGHT db SHOULDER.} Route: Transdermal; Site: affected area; 13:52 Drug: Rocephin IV 1 grams IV at per protocol once; Given slow IV push per pharmacy db instructions Route: IV; Rate: per protocol; Site: right antecubital; 15:32 Follow up: Response: No adverse reaction; IV Status: Completed infusion; IV Intake: 50mldb 14:03 Drug: NS 0.9% IV 1000 ml IV at 1 bolus Per protocol; 1000 mL bolus Route: IV; Rate: 1 mb9 bolus; Site: right antecubital; Medication: 07:59 Vaccine Information Statement (VIS) provided today. Questions and/or concerns ld1 addressed. VIS edition date: July 25, 2023. Intake: 15:32 IV: 50ml; Total: 50ml. db Outcome: 10:24 Decision to Hospitalize by Provider. irvin 22:02 Admitted to ICU accompanied by nurse, via wheelchair, room ICU 4, on monitor, with rv chart, Report called to JOSH MARTINI 22:02 Condition: stable 22:02 Instructed on the need for admit, 22:03 Patient left the ED. rv Signatures: River Kang MD MD cha Williams, Irene, RN RN iw Lloyd Glynn ds4 Dylan Sanchez RN VINI rv Jackeline Brewer RN RN ld1 Tom Valenzuela RN RN as6 Jena Willams RN RN db Tatiana Spence, RN RN mb9 Corrections: (The following items were deleted from the chart) 08:10 08:04 BP 135 / 110; Pulse 146bpm; Resp 19bpm; Pulse Ox 100%; Temp 100F; 79.38 kg; iw Height 5 ft. 8 in.; BMI: 26.6; iw 17:05 17:04 Reassessment: Patient appears in no apparent distress at this time. Patient db and/or family updated on plan of care and expected duration. Pain level reassessed. Patient is alert, oriented x 3, equal unlabored respirations, skin warm/dry/pink. PT RESTING. MOM AT BEDSIDE db
--- NOTE | 2023-07-25 10:24 | EDPHYS ---
Physician Documentation [facility] [place] Name: Anthony Au Age: 38 yrs Sex: Male : 1985 Arrival Date: 07/25/2023 Time: 07:54 Bed 18 Private MD: KAYLIE Physician River Kang HPI: 07/25 08:41 This 38 yrs old Male presents to ER via Ambulatory with complaints of Suicidal irvin Ideation, Laceration To Arm, Psych Problem. 08:41 The patient presents to the emergency department with anxiety, a history of substance irvin abuse, a history of a suicide gesture, suicide ideation, and the patient has a plan, to cut oneself and bleed. Onset: The symptoms/episode began/occurred 1 day(s) ago. Past psychiatric history: Prior diagnosis: addiction history, bipolar disorder, depression. Associated signs and symptoms: Pertinent positives; delusions, substance abuse, suicide ideation. Severity of symptoms: At their worst the symptoms were moderate in the emergency department the symptoms are unchanged. The patient has experienced similar episodes in the past, multiple times. Historical: - Allergies: 08:07 No Known Allergies; iw - PMHx: 08:06 Anxiety; Asthma; Bipolar disorder; Depression; detox seizures; scalp laceration repair.;iw - PSHx: 08:06 I\T\D; iw - Immunization history:: Adult Immunizations up to date. - Family history:: not pertinent. - Social history:: Smoking status: Patient denies any tobacco usage or history of. Patient/guardian denies using alcohol. ROS: 08:41 Constitutional: Negative for fever, chills, and weight loss, Eyes: Negative for injury, irvin pain, redness, and discharge, ENT: Negative for injury, pain, and discharge, Neck: Negative for injury, pain, and swelling, Respiratory: Negative for shortness of breath, cough, wheezing, and pleuritic chest pain, Abdomen/GI: Negative for abdominal pain, nausea, vomiting, diarrhea, and constipation, Back: Negative for injury and pain, : Negative for injury, bleeding, discharge, and swelling, MS/Extremity: Negative for injury and deformity, Skin: Negative for injury, rash, and discoloration, Neuro: Negative for headache, weakness, numbness, tingling, and seizure, Psych: Negative for depression, anxiety, suicide ideation, homicidal ideation, and hallucinations, Allergy/Immunology: Negative for hives, rash, and allergies, Endocrine: Negative for neck swelling, polydipsia, polyuria, polyphagia, and marked weight changes, Hematologic/Lymphatic: Negative for swollen nodes, abnormal bleeding, and unusual bruising, 08:41 Cardiovascular: Positive for palpitations, 08:41 Skin: Positive for laceration(s), of the right wrist, Exam: 08:41 Constitutional: This is a well developed, well nourished patient who is awake, alert, irvin and in no acute distress. Head/Face: Normocephalic, atraumatic. Eyes: Pupils equal round and reactive to light, extra-ocular motions intact. Lids and lashes normal. Conjunctiva and sclera are non-icteric and not injected. Cornea within normal limits. Periorbital areas with no swelling, redness, or edema. ENT: Nares patent. No nasal discharge, no septal abnormalities noted. Tympanic membranes are normal and external auditory canals are clear. Oropharynx with no redness, swelling, or masses, exudates, or evidence of obstruction, uvula midline. Mucous membranes moist. Neck: Trachea midline, no thyromegaly or masses palpated, and no cervical lymphadenopathy. Supple, full range of motion without nuchal rigidity, or vertebral point tenderness. No Meningismus. Chest/axilla: Normal chest wall appearance and motion. Nontender with no deformity. No lesions are appreciated. Cardiovascular: Regular rate and rhythm with a normal S1 and S2. No gallops, murmurs, or rubs. Normal PMI, no JVD. No pulse deficits. Respiratory: Lungs have equal breath sounds bilaterally, clear to auscultation and percussion. No rales, rhonchi or wheezes noted. No increased work of breathing, no retractions or nasal flaring. Abdomen/GI: Soft, non-tender, with normal bowel sounds. No distension or tympany. No guarding or rebound. No evidence of tenderness throughout. Back: No spinal tenderness. No costovertebral tenderness. Full range of motion. Male : Normal genitalia with no discharge or lesions. Skin: Warm, dry with normal turgor. Normal color with no rashes, no lesions, and no evidence of cellulitis. MS/ Extremity: Pulses equal, no cyanosis. Neurovascular intact. Full, normal range of motion. Neuro: Awake and alert, GCS 15, oriented to person, place, time, and situation. Cranial nerves II-XII grossly intact. Motor strength 5/5 in all extremities. Sensory grossly intact. Cerebellar exam normal. Normal gait. Psych: Awake, alert, with orientation to person, place and time. Behavior, mood, and affect are within normal limits. 08:41 Skin: injury, laceration(s), the wound is approximately 2.5 cm(s), with a depth of .025 cm(s), of the right wrist, 11:42 ECG was reviewed by the Attending Physician. irvin 12:18 Neck: External neck: is normal, no abrasions, no abscess, no cellulitis, no ecchymosis, irvin no erythema, no laceration, no mass, no rash, no swelling, no tenderness, ROM/movement: is normal, is supple, without pain, no range of motions limitations, no meningismus, no nuchal rigidity, negative Brudzinski's sign, negative Kernig's sign, pain, is not appreciated, limited range of motion, is not appreciated, Vital Signs: 08:04 BP 135 / 110; Pulse 146; Resp 19; Temp 99.9(O); Pulse Ox 100% ; Weight 79.38 kg; Height iw 5 ft. 8 in. ; 09:24 Pulse 117; Resp 28; Pulse Ox 100% on R/A; ld1 10:09 Pulse 114; Resp 18; Pulse Ox 96% ; db 11:54 BP 138 / 102; Pulse 115; Pulse Ox 98% on R/A; ds4 16:06 BP 140 / 98; Pulse 108; Resp 18; Temp 97.7; Pulse Ox 98% ; ds4 21:07 BP 135 / 103; Pulse 96; Resp 20; Temp 98.4(O); Pulse Ox 99% ; rv 08:04 Body Mass Index 26.61 (79.38 kg, 172.72 cm) iw Nurys Coma Score: 21:07 Eye Response: spontaneous(4). Motor Response: obeys commands(6). Verbal Response: rv confused(4). Total: 14. MDM: 07:59 Patient medically screened. irvin 08:44 Differential diagnosis: drug withdrawal. acute psychotic break, depression, psychosis irvin secondary to non-compliance. Data reviewed: vital signs, nurses notes, lab test result(s), EKG. Consideration of Admission/Observation Escalation of care including admission/observation considered. I considered the following discharge prescriptions or medication management in the emergency department Medications were administered in the Emergency Department. See MAR. Independent interpretation of the following test(s) in the Emergency Department EKG: See my EKG interpretation above. Test considered but Not performed: X-ray: no cxr. Historians other than the Patient: Family Member: mom and dad. Care significantly affected by the following chronic conditions: psych,benzo abuse. Counseling: I had a detailed discussion with the patient and/or guardian regarding the historical points, exam findings, and any diagnostic results supporting the discharge/admit diagnosis, the presence of at least one elevated blood pressure reading (>120/80) during this emergency department visit, lab results, the need to transfer to another facility, for higher level of care, [facility] does not immediately have the required specialist. 07/25 08:01 Order name: Acetaminophen; Complete Time: 10:19 [facility] 07/25 08:01 Order name: Basic Metabolic Panel; Complete Time: 10:19 [facility] 07/25 08:01 Order name: CBC with Diff; Complete Time: 13:01 [facility] 07/25 08:01 Order name: ETOH Level; Complete Time: 09:39 [facility] 07/25 08:01 Order name: Hepatic Function; Complete Time: 10:19 [facility] 07/25 08:01 Order name: PT-INR; Complete Time: 10:46 [facility] 07/25 08:01 Order name: Ptt, Activated; Complete Time: 10:46 [facility] 07/25 08:01 Order name: Salicylate; Complete Time: 10:19 [facility] 07/25 08:01 Order name: Urinalysis w/ reflexes; Complete Time: 09:39 [facility] 07/25 08:01 Order name: Urine Drug Screen; Complete Time: 10:19 [facility] 07/25 11:10 Order name: CBC Smear Scan; Complete Time: 13:01 EDMS 07/25 13:03 Order name: Blood Culture Adult (2) 07/25 13:03 Order name: Lactate w/ 2H reflex if indic. [facility] 07/25 13:03 Order name: Strep 07/25 13:03 Order name: SARS-COV-2 Antigen Rapid 07/25 13:03 Order name: Flu [facility] 07/25 14:04 Order name: Lactate w/ 2H reflex if indic.; Complete Time: 15:18 EDSD 07/25 14:13 Order name: Group A Streptococcus Rapid Sc [facility] 07/25 14:26 Order name: Influenza Screen (A ; Complete Time: 15:18 [facility] 07/25 14:46 Order name: SARS-COV-2 Antigen Rapid; Complete Time: 15:18 [facility] 07/25 13:03 Order name: Chest Single View XRAY [facility] 07/25 16:42 Order name: RAD [facility] 07/25 08:01 Order name: EKG; Complete Time: 08:02 [facility] 07/25 08:01 Order name: EKG - Nurse/Tech; Complete Time: 09:09 [facility] 07/25 08:01 Order name: IV Saline Lock; Complete Time: 08:45 [facility] 07/25 08:01 Order name: Labs collected and sent; Complete Time: 08:45 [facility] 07/25 08:01 Order name: Suicide Precautions; Complete Time: 08:45 [facility] 07/25 08:01 Order name: Suicide Screening ([place]); Complete Time: 09:21 [facility] 07/25 08:21 Order name: Seizure Precautions; Complete Time: 08:45 [facility] 07/25 08:46 Order name: Labs - recollect needed: recollect all tubes; Complete Time: 09:17 bd EC:42 Rate is 137 beats/min. Rhythm is regular. QRS [place] is Normal. [place] interval is normal. [facility] QRS interval is normal. QT interval is normal. No Q waves. T waves are Normal. No ST changes noted. Clinical impression: Sinus tachycardia and No evidence of ischemia. Interpreted by me. Reviewed by me. Administered Medications: 09:20 Drug: Tetanus Toxoid,Adsorbed IM 0.5 ml IM once; Provide Vaccine Information Statement ld1 (VIS). {[employer] Associate: [employer] Exp: Sat Feb 22 2025; Lot #: [id number]; Series: 1 of 1; Patient Consent: Obtained; Date/Time: ; Source Name: Anthony Au; Source Relationship: Self; Address Information: [address] [place] [address]; ; Education: Provided; VIS Presented Date: ; VIS Publication: Tetanus/Diphtheria (Td) Vaccine VIS 01/10/2017 (historic)} Route: IM; Site: right deltoid; 09:20 Drug: Diazepam IVP 2 mg IVP once Route: IVP; Site: right antecubital; ld1 09:20 Drug: clonazePAM PO 2 mg PO once Route: PO; ld1 09:21 Drug: NS 0.9% IV 1000 ml IV at 1 bolus Per protocol; 1000 mL bolus Route: IV; Rate: 1 ld1 bolus; Site: right antecubital; 09:55 Drug: Banana Bag - (Multivitamin IV 1 amp, NS 0.9% IV 1000 ml, Thiamine IV 100 mg, db foLIC Acid IVPB 1 mg) IV at 500 calculated rate once Route: IV; Rate: 500 calculated rate; Site: right antecubital; 10:00 Drug: Thiamine IV 100 mg IV at bolus once Route: IV; Rate: bolus; Site: right db antecubital; 11:55 Drug: Potassium PO Effervescent Tablet 25 mEq PO once; dissolve in 4 ounces of water or db juice Route: PO; 13:25 Drug: Nicoderm CQ Transdermal Patch 21 mg/24 hr 1 patches Transdermal once {Note: RIGHT db SHOULDER.} Route: Transdermal; Site: affected area; 13:52 Drug: Rocephin IV 1 grams IV at per protocol once; Given slow IV push per pharmacy db instructions Route: IV; Rate: per protocol; Site: right antecubital; 15:32 Follow up: Response: No adverse reaction; IV Status: Completed infusion; IV Intake: 50mldb 14:03 Drug: NS 0.9% IV 1000 ml IV at 1 bolus Per protocol; 1000 mL bolus Route: IV; Rate: 1 mb9 bolus; Site: right antecubital; Disposition Summary: 07/25/23 10:24 Hospitalization Ordered Notes: Hospitalization Status: Inpatient Admission irvin Provider: Edwin Manzano cha Condition: Fair irvin Problem: new irvin Symptoms: have improved irvin Bed/Room Type: Standard irvin Location: Intensive Care Unit(07/25/23 19:54) mw Room Assignment: 4-(07/25/23 19:54) mw Diagnosis - Altered mental status, unspecified irvin - Sedative, hypnotic or anxiolytic use, unspecified with withdrawal delirium irvin - Hypokalemia irvin - Suicidal ideations irvin - Suicide attempt irvin Forms: - Medication Reconciliation Form irvin - SBAR form irvin - Leadership Thank You Letter irvin Signatures: Dispatcher [employer] EDMS dipeshViktoriya baker bd Rena Gibbons RN RN River Claros MD MD cha Williams, Irene, RN RN iw Alessandro Grier, SECOND BALLER-C SECOND BALLER-Cla1 Jackeline Brewer RN RN ld1 Jena Willams RN RN db Tatiana Spence RN RN mb9 Corrections: (The following items were deleted from the chart) 10:31 10:20 Head Brain Wo Cont+CT.RAD.BRZ ordered. EDMS EDMS 15:25 10:24 Telemetry/MedSurg (Inpatient) [facility] bd 15:25 10:24 irvin 19:54 15:25 [facility] ER HOLD bd 19:54 15:25 ERHOLD- bd
[2023-07-25 10:38] LABS: Protime INR 1.12
[2023-07-25 11:07] LABS: Absolute Lymphocytes (CBC) 1.7 K/uL (0.7-4.9); Hematocrit 44.5 % (39.6-49.0); MCV 91.4 fL (80-100); MPV 9.4 fL (7.6-11.3); Platelets 228 thou/uL (152-406); RBC Red Blood Cell Count 4.86 M/uL (4.33-5.43)
[2023-07-25] MEDS ORDERED: POTASSIUM 25 MEQ EFFERV TAB ONE (11:28)
[2023-07-25 11:55] LABS: Blood Morphology Comment NOT SEEN (NOT SEEN); Platelet Estimate ADEQ; White Blood Cell Scan OK (OK)
--- NOTE | 2023-07-25 12:48 | P.HP ---
Certification for Inpatient Patient admitted to: Inpatient With expected LOS: >2 Midnights Patient will require the following post-hospital care: None Practitioner: I am a practitioner with admitting privileges, knowledge of patient current condition, hospital course, and medical plan of care. Services: Services provided to patient in accordance with Admission requirements found in Title 42 Section 412.3 of the Code of Federal Regulations Patient History Date of Service: 07/25/23 Reason for admission: Benzodiazepine withdrawals History of Present Illness: 38-year-old male with history of bipolar disorder, anxiety, depression, benzodiazepine dependence presents emergency department chief complaint of altered mental status/psychosis. His family bedside report that he has been taking benzodiazepines for greater than 10 years prescribed by his PCP in conjunction with his psychiatrist. He was recently switched from clonazepam to alprazolam and she ran out of his prescription before he was scheduled to receive more likely due to misuse. He reports he has been out of his benzodiazepine for approximately 8 days when he began to experience significant side effects including agitation, confusion, hallucinations. He came to the ER twice before the past few days and was given a one-time dose of Valium which seemed to help a little bit. He has since progressively gotten worse to having hallucinations and suicidal ideation. Today he had a suicidal gesture where he cut his wrist with a knife. His family reports he has had similar episodes of psychosis previously related to substance use/misuse. He was given Valium in the ED. ED provider wishes to admit for benzodiazepine withdrawals, psychosis, suicidal gesture/ideation Allergies No Known Allergies Allergy (Verified 11/24/12 17:02) Home Medications: Fluoxetine HCl 20 mg PO DAILY 04/13/22 clonazePAM [Clonazepam] 1 mg PO BID 04/13/22 Codeine/APAP [Tylenol #3*] 1 tab PO Q4H PRN #20 tab 04/15/22 Ibuprofen 400 mg PO TID PRN #30 tablet 04/15/22 Smz./Tmp. [Bactrim Ds 800 MG/160 MG] 1 tab PO BID #14 tab 04/15/22 - Past Medical/Surgical History Diabetic: No -: Asthma -: Bipolar Disorder -: Anxiety/depression -: Benzodiazepine dependence -: Substance abuse -: None Psychosocial/ Personal History: Patient lives at home with grandpa. - Family History Mother -: Diabetes - Social History Smoking Status: Current every day smoker Alcohol use: Yes CD- Drugs: Yes Caffeine use: Yes Place of Residence: Home Review of Systems 10-point ROS is otherwise unremarkable Gastrointestinal: Nausea Physical Examination - Physical Exam General: Alert, In no apparent distress, Oriented x2, Confused, Other (Reports hallucinations) HEENT: Atraumatic, PERRLA, Mucous membr. moist/pink, EOMI, Sclerae nonicteric Neck: Supple, 2+ carotid pulse no bruit, No LAD, Without JVD or thyroid abnormality Respiratory: Clear to auscultation bilaterally, Normal air movement Cardiovascular: Regular rate/rhythm, Normal S1 S2 Gastrointestinal: Normal bowel sounds, No tenderness Musculoskeletal: No tenderness Integumentary: No rashes Neurological: Normal speech, Normal strength at 5/5 x4 extr, Normal tone, Normal affect - Studies Laboratory Data (last 24 hrs) 07/25/23 07/25/23 07/25/23 09:14 09:14 09:14 WBC 15.20 H Hgb 15.6 Hct 44.5 Plt Count 228 PT 12.3 INR 1.12 APTT 29.2 Sodium 136 Potassium 3.4 L BUN 24 H Creatinine 1.16 Glucose 130 H Total Bilirubin 2.3 H AST 21 ALT 32 Alkaline Phosphatase 55 Assessment and Plan - Plan Assessment: Metabolic encephalopathy/psychosis secondary to benzodiazepine withdrawal Suicidal ideation/gesture BPD/anxiety/depression Substance abuse Tobacco abuse Plan: Metabolic encephalopathy/psychosis secondary to benzodiazepine withdrawal We will transition from short acting alprazolam to diazepam scheduled dosing. Psychiatry consult in place. Will monitor in ICU. Monitor electrolytes. Suicidal ideation/gesture One-to-one with sitter, psychiatry consult, likely transfer to psych facility when medically cleared. BPD/anxiety/depression Has been off his medications for a few months now as he did not like how they make him feel, his family ports he was previously on Zyprexa, Prozac, clonazepam. Appreciate further per from psychiatry. Substance abuse Tobacco abuse Counseled on need for cessation. DVT PPX: Lovenox Code status: Full Discharge Plan: Psychiatry Plan to discharge in: Greater than 2 days - Advance Directives Does patient have a Living Will: No Does patient have a Durable POA for Healthcare: No - Code Status/Comfort Care Code Status Assessed: Yes (Full code) Critical Care: No Time Spent Managing Pts Care (In Minutes): 70
[2023-07-25] MEDS ORDERED: NICOTINE 21 MG/PAT TD ONE (13:30)
[2023-07-25] MEDS ORDERED: CEFTRIAXONE 1000 MG/VIAL ONE (13:30)
[2023-07-25] MEDS ORDERED: NA CHLORIDE 0.9% 50 ML ONE (13:31)
[2023-07-25 14:45] LABS: SARS-CoV-2 Antigen Rapid Res Negative (Negative)
[2023-07-25] MEDS ORDERED: ONDANSETRON 4 MG/2 ML VIAL IV PRN (15:45)
[2023-07-25] MEDS: NA CHLORIDE 0.9% 1,000 ML IV SCH ×2 (15:45→22:49)
--- NOTE | 2023-07-25 16:41 | RAD REPORT ---
EXAM [facility] 3:04 pm CLINICAL HISTORY: COUGH COMPARISON: Chest Pa And Lat (2 Views) dated 09/29/2019; Chest Pa And Lat (2 Views) dated 09/28/2019 ; CHEST PA AND LAT 2 VIEW dated 04/25/2012; CHEST SINGLE VIEW dated 02/19/2011 TECHNIQUE: Portable AP view of the chest. FINDINGS: The lungs are clear. No pneumothorax or effusion. The cardiomediastinal contours are unre markable. IMPRESSION: No acute cardiopulmonary process.
[2023-07-25] MEDS: ENOXAPARIN 40 MG/0.4 ML SQ SCH (17:00)
[2023-07-25] MEDS ORDERED: hydrOXYzine HCL 25 MG TAB PO PRN (17:52)
[2023-07-25] MEDS: DIAZEPAM 5 MG TABLET PO SCH (18:16)
[2023-07-25] MEDS ORDERED: DIAZEPAM 5 MG TABLET ONE (18:29)
[2023-07-25] MEDS ORDERED: KETOROLAC 30 MG/ML INJ IV ONE (18:32)
[2023-07-25] MEDS: OLANZapine 2.5 MG TAB PO SCH (22:48)
[2023-07-26] MEDS ORDERED: ACETAMINOPHEN 325 MG TABLET PO PRN (00:35)
[2023-07-26] MEDS: HYDROCODONE/APAP 5/325 MG TAB PO PRN ×4 (00:46→20:07)
[2023-07-26 04:28] LABS: Absolute Lymphocytes (CBC) 3.4 K/uL (0.7-4.9); Lymphocytes % 28.5 % (15.3-44.8); MCV 91.6 fL (80-100); MPV 8.3 fL (7.6-11.3); Platelets 196 thou/uL (152-406); RBC Red Blood Cell Count 4.15 M/uL (4.33-5.43)
[2023-07-26 04:57] LABS: Albumin 3.2 g/dL (3.4-5.0); Bilirubin Total 1.7 mg/dL (0.2-1.0); Magnesium 2.2 mg/dL (1.6-2.4); Potassium 3.6 mEq/L (3.5-5.1); Protein, Total 6.4 g/dL (6.4-8.2); Thyroid Stimulating Hormone 0.651 uIU/mL (0.358-3.740)
[2023-07-26] MEDS ORDERED: THIAMINE 200 MG/2 ML INJ ONE (07:57)
[2023-07-26] MEDS ORDERED: NA CHLORIDE 0.9% 1,000 ML ONE (07:57)
[2023-07-26] MEDS: DIAZEPAM 5 MG TABLET PO SCH ×2 (08:04→20:39)
[2023-07-26] MEDS: ENOXAPARIN 40 MG/0.4 ML SQ SCH (08:05)
--- NOTE | 2023-07-26 08:31 | P.PN ---
Subjective Date of Service: 07/26/23 Chief Complaint: Benzodiazepine withdrawals Subjective: No new changes Review of Systems 10-point ROS is otherwise unremarkable Neurological: Confusion, Other (Delusional thoughts) Physical Examination - Vital Signs Temperature: 96.9 F Blood Pressure: 134/86 Pulse: 83 Respirations: 12 Pulse Ox (%): 99 - Physical Exam General: Alert, In no apparent distress, Oriented x2, Confused, Other (conspiratorial/delusional thoughts, nonviolent ) HEENT: Atraumatic, PERRLA, EOMI Neck: Supple, JVD not distended Respiratory: Clear to auscultation bilaterally, Normal air movement Cardiovascular: Regular rate/rhythm, Normal S1 S2 Gastrointestinal: Normal bowel sounds, No tenderness Musculoskeletal: No tenderness Integumentary: No rashes Neurological: Normal speech, Normal tone, Normal affect Lymphatics: No axilla or inguinal lymphadenopathy - Studies Laboratory Data (last 24 hrs) 07/25/23 07/25/23 07/25/23 09:14 09:14 09:14 WBC 15.20 H Hgb 15.6 Hct 44.5 Plt Count 228 PT 12.3 INR 1.12 APTT 29.2 Sodium 136 Potassium 3.4 L BUN 24 H Creatinine 1.16 Glucose 130 H Total Bilirubin 2.3 H AST 21 ALT 32 Alkaline Phosphatase 55 Medications List Reviewed: Yes Assessment And Plan - Plan Assessment: Metabolic encephalopathy/psychosis secondary to benzodiazepine withdrawal Suicidal ideation/gesture BPD/anxiety/depression Substance abuse Tobacco abuse Plan: Metabolic encephalopathy/psychosis secondary to benzodiazepine withdrawal Suicidal ideation/gesture Seen by Psych-started on Valium, olanzapine and PRN hydroxyzine for sleep. Tolerating well, vitals and labs stable, still with delusional thoughts/conspiratorial 1-1 sitter after suicidal gesture possible downgrade from ICU Will likely need placement inpatient the medical center once medically cleared. BPD/anxiety/depression Continue new meds as above, appreciate further input from the medical center Substance abuse Tobacco abuse Counseled on need for cessation. Dispo:DC to inp psych 24-48 hours DVT PPX: Lovenox Code status: Full Discharge Plan: Psychiatry Plan to discharge in: 48 Hours - Code Status/Comfort Care Code Status Assessed: Yes (Full) Critical Care: No Time Spent Managing PTS Care (In Minutes): 20
[2023-07-26] MEDS ORDERED: BENZONATATE 100 MG CAP PO PRN (08:43)
[2023-07-26] MEDS: FOLIC ACID 1 MG, MULTIVITAMINS INJ 10 ML, THIAMINE HCL 100 MG in NA CHLORIDE 0.9% 1,000 ML IV SCH (09:34)
[2023-07-26] MEDS: OLANZapine 2.5 MG TAB PO SCH ×2 (09:34→20:39)
[2023-07-26] MEDS: DIAZEPAM 5 MG TABLET PO PRN (10:49)
[2023-07-26] MEDS: NICOTINE 14 MG/PAT TD SCH (10:50)
--- NOTE | 2023-07-26 11:59 | EKG ---
Test Date: 2023-07-25 Test Time: 08:54:38 Deckhand Engineer: MEASUREMENT RESULTS: Intervals: Rate: 137 HI: 116 QRSD: 80 QT: 296 QTc: 446 [place]: P: 80 HI: 116 QRS: 92 T: 63 INTERPRETIVE STATEMENTS: Sinus tachycardia Rightward axis Borderline ECG Compared to ECG 05/12/2023 01:30:08 Sinus rhythm no longer present Electronically Signed On 07-26-23 11:56:08 CDT by Claudio Betancur
[2023-07-26] MEDS: carisoprodoL 350 MG TAB PO PRN (15:35)
[2023-07-26] MEDS: NA CHLORIDE 0.9% 1,000 ML IV SCH (21:45)
[2023-07-27] MEDS: carisoprodoL 350 MG TAB PO PRN ×2 (04:27→17:06)
[2023-07-27] MEDS: HYDROCODONE/APAP 5/325 MG TAB PO PRN ×4 (04:27→17:07)
[2023-07-27] MEDS: NA CHLORIDE 0.9% 1,000 ML IV SCH (04:30)
[2023-07-27 04:51] LABS: Absolute Lymphocytes (CBC) 3.8 K/uL (0.7-4.9); Hematocrit 37.8 % (39.6-49.0); Lymphocytes % 32.2 % (15.3-44.8); MCV 91.3 fL (80-100); MPV 8.6 fL (7.6-11.3); Platelets 224 thou/uL (152-406); RBC Red Blood Cell Count 4.14 M/uL (4.33-5.43)
[2023-07-27 05:21] LABS: Albumin 3.3 g/dL (3.4-5.0); Bilirubin Total 0.6 mg/dL (0.2-1.0); Potassium 3.3 mEq/L (3.5-5.1); Protein, Total 6.5 g/dL (6.4-8.2)
[2023-07-27] MEDS: DIAZEPAM 5 MG TABLET PO PRN ×3 (05:53→19:20)
--- NOTE | 2023-07-27 07:49 | P.PN ---
Subjective Date of Service: 07/27/23 Chief Complaint: Benzodiazepine withdrawals Subjective: Improving (More oriented today, pleasant.) Review of Systems 10-point ROS is otherwise unremarkable Neurological: Confusion, As per HPI Physical Examination - Vital Signs Temperature: 98.4 F Blood Pressure: 142/95 Pulse: 81 Respirations: 16 Pulse Ox (%): 100 - Physical Exam General: Alert, In no apparent distress, Oriented x3 HEENT: Atraumatic, PERRLA, EOMI Neck: Supple Respiratory: Clear to auscultation bilaterally, Normal air movement Cardiovascular: Regular rate/rhythm, Normal S1 S2 Gastrointestinal: Normal bowel sounds, No tenderness Musculoskeletal: No tenderness Integumentary: No rashes Neurological: Normal speech, Normal tone - Studies Medications List Reviewed: Yes Assessment And Plan - Plan Assessment: Metabolic encephalopathy/psychosis secondary to benzodiazepine withdrawal Suicidal ideation/gesture BPD/anxiety/depression Substance abuse Tobacco abuse Plan: Metabolic encephalopathy/psychosis secondary to benzodiazepine withdrawal Suicidal ideation/gesture Seen by Psych-started on Valium, olanzapine and PRN hydroxyzine for sleep. Tolerating well, vitals and labs stable, still with delusional thoughts/conspiratorial More oriented 07/27, did well overnight, only needed one PRN dose of Valium 1-1 sitter after suicidal gesture possible downgrade from ICU today, considering initiating inp. psych transfer today Will likely need placement inpatient [facility] once medically cleared. BPD/anxiety/depression Continue new meds as above, appreciate further input from [facility] Substance abuse Tobacco abuse Counseled on need for cessation. Dispo:DC to inp psych 24-48 hours DVT PPX: Lovenox Code status: Full Discharge Plan: Psychiatry Plan to discharge in: 24 Hours - Code Status/Comfort Care Code Status Assessed: Yes (Full code) Critical Care: No Time Spent Managing PTS Care (In Minutes): 20
[2023-07-27] MEDS ORDERED: NA CHLORIDE 0.9% 1,000 ML ONE (08:05)
[2023-07-27] MEDS ORDERED: THIAMINE 200 MG/2 ML INJ ONE (08:05)
[2023-07-27] MEDS: ENOXAPARIN 40 MG/0.4 ML SQ SCH (08:35)
[2023-07-27] MEDS: DIAZEPAM 5 MG TABLET PO SCH (08:36)
[2023-07-27] MEDS: NICOTINE 14 MG/PAT TD SCH (08:36)
[2023-07-27] MEDS: OLANZapine 2.5 MG TAB PO SCH (08:36)
[2023-07-27] MEDS: FOLIC ACID 1 MG, MULTIVITAMINS INJ 10 ML, THIAMINE HCL 100 MG in NA CHLORIDE 0.9% 1,000 ML IV SCH (09:10)
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
[2023-07-27 15:07] VITALS: BMI 27.4
[2023-07-27 15:14] VITALS: O2SAT 98
[2023-07-27 20:18] VITALS: BP 134/84; TEMP 97.8
--- NOTE | 2023-07-28 05:48 | P.DS ---
Admission Date: 07/25/23 Discharge Date: 07/27/23 Disposition: TRANSFR TO OTHER-PSY/CD/REHAB Discharge Condition: FAIR Reason for Admission: Benzodiazepine withdrawals Consultations: Psychiatry Procedures: Chest x-ray 07/25/2023 FINDINGS: The lungs are clear. No pneumothorax or effusion. The cardiomediastinal contours are unremarkable. IMPRESSION: No acute cardiopulmonary process. Brief History of Present Illness: 38-year-old male with history of bipolar disorder, anxiety, depression, benzodiazepine dependence presents emergency department chief complaint of altered mental status/psychosis. His family bedside report that he has been taking benzodiazepines for greater than 10 years prescribed by his PCP in conjunction with his psychiatrist. He was recently switched from clonazepam to alprazolam and she ran out of his prescription before he was scheduled to receive more likely due to misuse. He reports he has been out of his benzodiazepine for approximately 8 days when he began to experience significant side effects including agitation, confusion, hallucinations. He came to the ER twice before the past few days and was given a one-time dose of Valium which seemed to help a little bit. He has since progressively gotten worse to having hallucinations and suicidal ideation. Today he had a suicidal gesture where he cut his wrist with a knife. His family reports he has had similar episodes of psychosis previously related to substance use/misuse. He was given Valium in the ED. ED provider wishes to admit for benzodiazepine withdrawals, psychosis, suicidal gesture/ideation Hospital Course: You were admitted to the hospital for benzodiazapine withdrawal as well as psychosis/suicidal gesture. During the hospitalization you required oral benzodiazepines and opiates which controlled you withdrawal symptoms well. You were medically cleared and were accepted by [facility] psychiatric facility for further inpatient psychiatric care. Please continue with plan of care at [facility]. Vital Signs/Physical Exam: Temp Pulse Resp BP Pulse Ox 97.8 F 95 H 12 134/84 98 07/27/23 19:00 07/27/23 19:00 07/27/23 19:00 07/27/23 19:00 07/27/23 19:00 Laboratory Data at Discharge: WBC 11.90 thou/uL (4.3-10.9) H 07/27/23 04:11 Hgb 13.1 g/dL (13.6-17.9) L 07/27/23 04:11 Hct 37.8 % (39.6-49.0) L 07/27/23 04:11 Plt Count 224 thou/uL (152-406) 07/27/23 04:11 PT 12.3 SECONDS (9.5-12.5) 07/25/23 09:14 INR 1.12 07/25/23 09:14 APTT 29.2 SECONDS (24.3-36.9) 07/25/23 09:14 Sodium 141 mEq/L (136-145) 07/27/23 04:11 Potassium 3.3 mEq/L (3.5-5.1) L 07/27/23 04:11 BUN 12 mg/dL (7-18) 07/27/23 04:11 Creatinine 0.79 mg/dL (0.70-1.30) 07/27/23 04:11 Glucose 112 mg/dL (74-106) H 07/27/23 04:11 Magnesium 2.0 mg/dL (1.6-2.4) 07/27/23 04:11 Total Bilirubin 0.6 mg/dL (0.2-1.0) 07/27/23 04:11 AST 16 U/L (15-37) 07/27/23 04:11 ALT 31 U/L (16-61) 07/27/23 04:11 Alkaline Phosphatase 63 U/L (45-117) D 07/27/23 04:11 Home Medications: OLANZapine [Zyprexa*] 5 mg PO BID tab 07/27/23 carisoprodoL [Soma*] 350 mg PO BID PRN tab 07/27/23 diazePAM [Valium*] 10 mg PO BID tab 07/27/23 hydrOXYzine HCL [Atarax*] 25 mg PO BEDTIME PRN tab 07/27/23 Physician Discharge Instructions: You were admitted to the hospital for benzodiazapine withdrawal as well as psychosis/suicidal gesture. During the hospitalization you required oral benzodiazepines and opiates which controlled you withdrawal symptoms well. You were medically cleared and were accepted by [facility] psychiatric facility for further inpatient psychiatric care. Please continue with plan of care at [facility]. Diet: Regular Activity: Ad estefania Followup: NONE,NONE [Primary Care Provider] - Time spent managing pt's care (in minutes): 25
== END 2023-07-27 20:20 | DRG 896 ==
LOC: ER 07:54 → ERHOLD 12:12 → 3RD-ICU 20:12
PROVIDERS: ADMIT Hospitalist; ATTEND Hospitalist
DX: F13.231 Sedative, hypnotic or anxiolytic dependence with withdrawal delirium (principal); G92.8 Other toxic encephalopathy; R45.851 Suicidal ideations; F13.280 Sedative, hypnotic or anxiolytic dependence with sedative, hypnotic or anxiolytic-induced anxiety disorder; F13.24 Sedative, hypnotic or anxiolytic dependence with sedative, hypnotic or anxiolytic-induced mood disorder; E87.6 Hypokalemia; F29 Unspecified psychosis not due to a substance or known physiological condition; F25.0 Schizoaffective disorder, bipolar type; J45.909 Unspecified asthma, uncomplicated; F17.200 Nicotine dependence, unspecified, uncomplicated; T42.4X6A Underdosing of benzodiazepines, initial encounter; Z71.6 Tobacco abuse counseling; Z56.0 Unemployment, unspecified; Z79.899 Other long term (current) drug therapy; Z91.128 Patient's intentional underdosing of medication regimen for other reason; Z91.148 Patient's other noncompliance with medication regimen for other reason; Z20.822 Contact with and (suspected) exposure to COVID-19
CPT/HCPCS: 36415; 71045; 80048; 80053; 80076; 80143; 80179; 80307; 81001; 82077; 83605; 83735; 84439; 84443; 85025; 85610; 85730; 87040; 87070; 87081; 87804; 87811; 90471; 93005; 96365; 96366; 96375; 99285; J0696; J1650; J3360; J3411; J7030

== ENCOUNTER → 2023-09-24 | Emergency (ER) | payer SELFPAY ==
[~2023-09-24] MED LIST changes: -MORPHINE 4 MG/ML SYR ONE; -NA CHLORIDE 0.9% 1,000 ML ONE; +ONDANSETRON 4 MG (ODT) TAB ONE; -ONDANSETRON 4 MG/2 ML VIAL ONE
--- OUTSIDE RECORDS SUMMARY | 2023-09-24 05:44 | XMS REPORT | Continuity of Care Document ---
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 MONO x10^3 (test code = 742-7) 0.60 10*3/uL 0.36-1.02 EOS x10^3 (test code = 711-2) 0.03 10*3/uL 0.06-0.53 L BASO x10^3 (test code = 704-7) 0.05 10*3/uL 0.01-0.09 Lab Interpretation (test code = 24462-4) Abnormal [facility]
[2023-09-24 06:40] LABS: Urine Bilirubin NEGATIVE (Negative); Urine Blood Negative (Negative); Urine Clarity Clear (Clear); Urine Color Light-Yellow (Yellow); Urine Glucose NEGATIVE (Negative); Urine Protein NEGATIVE (Negative); Urine Urobilinogen Normal (Normal); Urine pH 5.5 (5.0-7.0)
--- NOTE | 2023-09-24 07:58 | RAD REPORT ---
EXAM DESCRIPTION: RAD - Abdomen 1 View (KUB) - 09/24/2023 6:49 am CLINICAL HISTORY: CONSTIPATION COMPARISON: No comparisons TECHNIQUE: Single AP view of the abdomen. FINDINGS: Nonobstructive bowel gas pattern. No air-fluid levels, free air, or pneumatosis. Mild stoo l burden along the proximal colon. No suspicious calcifications. No significant bony abnormality. IMPRESSION: Nonobstructive bowel gas pattern. Mild stool burden along the proximal colon.
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
--- NOTE | 2023-09-24 08:06 | ER ---
Nurse's Notes [facility] Name: Anthony Au Age: 38 yrs Sex: Male : 1985 Arrival Date: 09/24/2023 Time: 05:41 Bed 15 Private MD: Diagnosis: Constipation Presentation: 09/24 05:59 Chief complaint: Patient states: Im having kidney and lower back pain. I haven't been vc1 able to have a bowel movement in 10 days. I'm taking miralax 3 times a day and still not helping. Coronavirus screen: Vaccine status: Patient reports receiving the 2nd dose of the covid vaccine. At this time, the client does not indicate any symptoms associated with coronavirus-19. Ebola Screen: Patient negative for fever greater than or equal to 101.5 degrees Fahrenheit, and additional compatible Ebola Virus Disease symptoms Patient denies exposure to infectious person. Patient denies travel to an Ebola-affected area in the 21 days before illness onset. No symptoms or risks identified at this time. Initial Sepsis Screen: Does the patient meet any 2 criteria? No. Patient's initial sepsis screen is negative. Does the patient have a suspected source of infection? No. Patient's initial sepsis screen is negative. Risk Assessment: Do you want to hurt yourself or someone else? Patient reports no desire to harm self or others. Onset of symptoms was September 14, 2023. 05:59 Method Of Arrival: Ambulatory vc1 05:59 Acuity: MARKY 3 vc1 Triage Assessment: 06:32 General: Appears in no apparent distress. comfortable, Behavior is cooperative. Pain: vc1 Complains of pain in right low back and left low back Pain does not radiate. Pain currently is 10 out of 10 on a pain scale. EENT: No deficits noted. No signs and/or symptoms were reported regarding the EENT system. Neuro: Level of Consciousness is awake, alert, obeys commands, Oriented to person, place, time, situation, Appropriate for age. Cardiovascular: No deficits noted. Respiratory: Airway is patent Respiratory effort is even, unlabored, Respiratory pattern is regular, symmetrical. GI: Reports constipation. : Reports pain in lower back. Derm: No deficits noted. No signs and/or symptoms reported regarding the dermatologic system. Musculoskeletal: No deficits noted. No signs and/or symptoms reported regarding the musculoskeletal system. Historical: - Allergies: 06:05 No Known Allergies; vc1 - PMHx: 06:05 Anxiety; Asthma; Bipolar disorder; Depression; detox seizures; vc1 - PSHx: 06:05 I\T\D; vc1 - Immunization history:: Client reports receiving the 2nd dose of the Covid vaccine. - Social history:: Smoking status: Patient reports the use of cigarette tobacco products, smokes one pack cigarettes per day. Patient uses street drugs, cocaine. Screenin:00 [facility] ED Fall Risk Assessment (Adult) History of falling in the last 3 months, tm6 including since admission No falls in past 3 months (0 pts). Abuse screen: Denies threats or abuse. Denies injuries from another. Nutritional screening: No deficits noted. Tuberculosis screening: No symptoms or risk factors identified. Assessment: 06:00 General: Appears uncomfortable, Behavior is cooperative. Pain: Complains of pain in low tm6 back area, left low back and right low back Pain currently is 10 out of 10 on a pain scale. Neuro: Level of Consciousness is awake, alert, obeys commands, Oriented to person, place, time, situation. Cardiovascular: Capillary refill < 3 seconds Patient's skin is warm and dry. Respiratory: Airway is patent Respiratory effort is even, unlabored, Respiratory pattern is regular, symmetrical. GI: Bowel sounds present X 4 quads. Abd is soft and non tender X 4 quads. : No signs and/or symptoms were reported regarding the genitourinary system. EENT: No signs and/or symptoms were reported regarding the EENT system. Derm: No signs and/or symptoms reported regarding the dermatologic system. Musculoskeletal: No signs and/or symptoms reported regarding the musculoskeletal system. 06:06 GI: Reports nausea. tm6 06:53 Reassessment: Patient and/or family updated on plan of care and expected duration. Pain tm6 level reassessed. Patient is alert, oriented x 3, equal unlabored respirations, skin warm/dry/pink. 08:01 Reassessment: Patient and/or family updated on plan of care and expected duration. Pain rs5 level reassessed. Patient is alert, oriented x 3, equal unlabored respirations, skin warm/dry/pink. Patient denies pain at this time. Patient states feeling better. Patient states symptoms have improved. Vital Signs: 05:59 BP 146 / 84; Pulse 81; Resp 16; Temp 98.2; Pulse Ox 97% ; Weight 83.91 kg; Height 5 ft. vc1 8 in. ; Pain 10/10; 06:54 BP 129 / 94; Pulse 66; Pulse Ox 97% ; Pain 5/10; tm6 07:30 BP 125 / 80; Pulse 67; Resp 17; Temp 98(O); Pulse Ox 99% on R/A; rs5 05:59 Body Mass Index 28.13 (83.91 kg, 172.72 cm) vc1 05:59 Pain Scale: Adult vc1 06:54 Pain Scale: Adult tm6 ED Course: 05:44 Patient arrived in ED. jj6 05:53 Tanner Cuello, RN is Primary Nurse. tm6 06:00 Patient has correct armband on for positive identification. Bed in low position. Call tm6 light in reach. Side rails up X 1. Provided Education on: plan of care. Client placed on continuous cardiac and pulse oximetry monitoring. NIBP monitoring applied. Door closed. Noise minimized. 06:00 No provider procedures requiring assistance completed. tm6 06:05 Triage completed. vc1 06:20 Marciano Grace is Attending Physician. ci 06:30 Urinalysis w/ reflexes Sent. tm6 06:50 Abdomen 1 View (KUB) XRAY In Process Unspecified. EDMS 08:01 Attending Physician role handed off by Marciano Grace rt 08:01 Dex Zuniga MD is Attending Physician. rt 08:10 Patient did not have IV access during this emergency room visit. rs5 Administered Medications: 06:30 Drug: Ondansetron Oral Disintegrating Tablet Oral Disintegrating Tablet 4 mg PO once tm6 Route: PO; 07:00 Follow up: Response: No adverse reaction rs5 Medication: 06:00 VIS not applicable for this client. tm6 Outcome: 06:07 Condition: good vc1 08:06 Discharge ordered by . rt 08:10 Discharged to home ambulatory, rs5 08:10 Condition: stable 08:10 Discharge instructions given to patient, family, Instructed on discharge instructions, follow up and referral plans. Demonstrated understanding of instructions, follow-up care, 08:11 Patient left the ED. rs5 Signatures: Dispatcher [employer] EDMS Shanks Summer jj6 Evita Castillo, RN RN vc1 Dex Zuniga MD MD rt Sotelo, Ricky, RN RN rs5 Marciano Grace Tawney RN RN tm6
[2023-09-24 08:19] VITALS: BP 129/94; TEMP 98.2; O2SAT 97
== END ==
LOC: ER 05:41
DX: K59.00 Constipation, unspecified (principal)
CPT/HCPCS: 74018; 81003; 99284; Q0162

== ENCOUNTER → 2023-09-28 | Emergency (ER) | payer SELFPAY ==
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
--- NOTE | 2023-09-28 17:15 | EDPHYS ---
Physician Documentation [facility] [place] Name: Anthony Au Age: 38 yrs Sex: Male : 1985 Arrival Date: 09/28/2023 Time: 16:46 Bed IW3 Private MD: ED Physician Giovanni Pitts HPI: 09/28 17:11 This 38 yrs old Male presents to ER via Ambulatory with complaints of Probable ec2 Seizure. 17:11 Patient arrives today for evaluation of benzodiazepine withdrawal symptoms. Patient ec2 reports that he has been on benzodiazepine, states that he has run out of his prescription. Patient reports that he is feeling anxious. He is asking for refill for his prescription. Patient also on methadone. States that the physician prescribing the methadone and the separate physician prescribing the benzodiazepine he was a judgment to stop prescribing the patient benzodiazepines.. Historical: - Allergies: 17:03 No Known Allergies; cm10 - PMHx: 17:03 Anxiety; Asthma; Bipolar disorder; Depression; detox seizures; scalp laceration repair.;cm10 - PSHx: 17:03 I\T\D; cm10 - Immunization history:: Adult Immunizations up to date. - Social history:: Smoking status: Patient reports the use of cigarette tobacco products, smokes one pack cigarettes per day. ROS: 17:11 Constitutional: as per hpi ec2 Exam: 17:11 Constitutional: GEN: NAD Head: atraumatic Eyes: EOMI Ears: External ears are ec2 normal. CV: regular rate LUNGS: no respiratory distress ABD: non-distended SKIN: no evidence of rashes MSK: no evidence of trauma NEURO: moves all extremities equally, no tremulousness, ambulatory Vital Signs: 17:04 BP 141 / 97; Pulse 84; Resp 18; Temp 98; Pulse Ox 100% on R/A; Weight 86.18 kg; Height cm10 5 ft. 8 in. ; Pain 0/10; 17:04 Body Mass Index 28.89 (86.18 kg, 172.72 cm) cm10 17:04 Pain Scale: Adult cm10 MDM: 17:05 Patient medically screened. ec2 17:11 Data reviewed: vital signs. ED course: Patient arrives today for refill of his ec2 benzodiazepine prescription. Examination remarkable for well-appearing individual was in no acute distress with reassuring vital signs who is not in evident benzodiazepine withdrawal. I instructed him we can help treat his symptoms here in the emergency department but I would not be refilling benzodiazepine prescription. Patient states that he no longer wanted to be seen and left.. Administered Medications: No medications were administered Disposition Summary: 09/28/23 17:14 Discharge Ordered Notes: Location: Home ec2 Condition: Stable ec2 Diagnosis - Abuse of other non-psychoactive substances ec2 Followup: ec2 - With: Private Physician - When: - Reason: Recheck today's complaints Forms: - Medication Reconciliation Form ec2 - Thank You Letter ec2 - Antibiotic Education ec2 - Prescription Opioid Use ec2 - Patient Portal Instructions ec2 - Leadership Thank You Letter ec2 Signatures: Georgina Ruffin RN RN cm10 Giovanni Pitts MD MD ec2 Corrections: (The following items were deleted from the chart) 17:15 17:11 ED course: Patient arrives today for refill of his benzodiazepine prescription. ec2 Examination remarkable for well-appearing individual was in no acute distress with reassuring vital signs who is not an evident benzodiazepine withdrawal. I instructed to him we can help treat his symptoms here in the emergency department but I would not be refilling benzodiazepine prescription. Patient states that he no longer wanted to be seen and left.. ec2 17:15 17:14 Patient medically screened. ec2 ec2
--- NOTE | 2023-09-28 17:15 | ER ---
Nurse's Notes [facility] [place] Name: Anthony Au Age: 38 yrs Sex: Male : 1985 Arrival Date: 09/28/2023 Time: 16:46 Bed IW3 Private MD: Diagnosis: Abuse of other non-psychoactive substances Presentation: 09/28 17:04 Chief complaint: Patient states: "I AM DETOXING FROM MY MEDICATION. I DID NOT ABUSE IT cm10 BUT I STOPPED TAKING IT." PT STATES THAT THE MEDICATION IS CLONAZEPAM. PT REPORTS ALSO TAKING SUBOXONE. PT ALSO REQUESTING PRESCRIPTION FOR BENZOS. Coronavirus screen: Vaccine status: Patient reports receiving the 2nd dose of the covid vaccine. Client denies travel out of the [place] in the last 14 days. Ebola Screen: Patient denies travel to an Ebola-affected area in the 21 days before illness onset. No symptoms or risks identified at this time. Initial Sepsis Screen: Does the patient meet any 2 criteria? No. Patient's initial sepsis screen is negative. Does the patient have a suspected source of infection? No. Patient's initial sepsis screen is negative. Risk Assessment: Do you want to hurt yourself or someone else? Patient reports no desire to harm self or others. Onset of symptoms was September 28, 2023. 17:04 Method Of Arrival: Ambulatory cm10 17:04 Acuity: MARKY 3 cm10 Triage Assessment: 17:09 General: Appears in no apparent distress. comfortable, Behavior is calm, cooperative. cm10 Neuro: No deficits noted. Level of Consciousness is awake, alert, Oriented to person, place, time, situation. 17:19 Pain: Denies pain. cm10 Historical: - Allergies: 17:03 No Known Allergies; cm10 - PMHx: 17:03 Anxiety; Asthma; Bipolar disorder; Depression; detox seizures; scalp laceration repair.;cm10 - PSHx: 17:03 I\\T\\D; cm10 - Immunization history:: Adult Immunizations up to date. - Social history:: Smoking status: Patient reports the use of cigarette tobacco products, smokes one pack cigarettes per day. Screenin:18 [facility] ED Fall Risk Assessment (Adult) History of falling in the last 3 months, cm10 including since admission No falls in past 3 months (0 pts) Confusion or Disorientation No (0 pts). Abuse screen: Denies threats or abuse. Denies injuries from another. Nutritional screening: No deficits noted. Tuberculosis screening: No symptoms or risk factors identified. Assessment: 17:08 Reassessment: PT LEAVING WHILE PROVIDER SPEAKING TO HIM AND LEFT AFTER BEING TOLD THAT cm10 HE WOULD NOT BE GETTING A PRESCRIPTION FOR BENZODIAZEPINES. PT STATES "THIS IS BULLSHIT" AND LEFT. Vital Signs: 17:04 BP 141 / 97; Pulse 84; Resp 18; Temp 98; Pulse Ox 100% on R/A; Weight 86.18 kg; Height cm10 5 ft. 8 in. ; Pain 0/10; 17:04 Body Mass Index 28.89 (86.18 kg, 172.72 cm) cm10 17:04 Pain Scale: Adult cm10 ED Course: 16:50 Patient arrived in ED. ae5 16:50 Giovanni Pitts MD is Attending Physician. ec2 17:05 Triage completed. cm10 17:05 Arm band placed on Patient placed in waiting room. cm10 17:18 Patient has correct armband on for positive identification. Provided Education on: ER cm10 PROCESS AND PROCEDURES.. 17:18 No provider procedures requiring assistance completed. Patient did not have IV access cm10 during this emergency room visit. Administered Medications: No medications were administered Medication: 17:18 VIS not applicable for this client. cm10 Outcome: 17:14 Discharge ordered by . ec2 17:18 Discharged to home ambulatory, cm10 17:18 Condition: good 17:18 Discharge instructions given to PT LEFT PRIOR TO RECEIVING DISCHARGE PAPERS. 17:19 Patient left the ED. cm10 Signatures: Georgina Ruffin RN RN cm10 Giovanni Pitts MD MD ec2 Rita Rolle ae5 Corrections: (The following items were deleted from the chart) 17:10 17:04 Chief complaint: Patient states: "I AM DETOXING FROM MY MEDICATION. I DID NOT cm10 ABUSE IT BUT I STOPPED TAKING IT." PT STATES THAT THE MEDICATION IS CLONAZEPAM. PT REPORTS ALSO TAKING SUBOXONE. cm10
[2023-09-28 17:48] VITALS: BP 141/97; TEMP 98; O2SAT 100
== END ==
LOC: ER 16:46
DX: F41.9 Anxiety disorder, unspecified (principal); F55.8 Abuse of other non-psychoactive substances
CPT/HCPCS: 99282

== ENCOUNTER 2023-12-30 20:36 | Emergency (ER) | payer SELFPAY ==
--- OUTSIDE RECORDS SUMMARY | 2023-12-30 20:43 | XMS REPORT | Continuity of Care Document ---
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 05-25 17:45: 12 05-30 17:44 :12 No 15mg 15 mg (0.185 mg/kg), IV Push, EVERY 6 HOURS PRN, Starting on Mon05/25/22 at 1745, Until Mon05/30/22 at 1744, Severe Pain (7-10) - 1st Line, Routine [facility] OLANZapine (ZyPREXA) tablet 20 mg 05-24 21:00: 00 06-03 20:36 :33 No 20mg 20 mg (0.245 mg/kg), Oral, AT BEDTIME, 30 doses, First dose on Mon05/24/22 at 2100, Last dose on Mon06/22/22 at 2100, STAT [facility] naproxen (NAPROSYN) tablet 500 mg 05-24 17:04: 46 05-25 17:45 :54 No 500mg 500 mg (6.16 mg/kg), Oral, 2 TIMES DAILY PRN, Starting on Mon05/24/22 at 1704, Until Mon05/25/22 at 1745, Severe Pain (7-10) - 1st Line, Routine [facility] LIDOCAINE HCL 10 MG/ML (1 %) INJECTION SOLUTION Pyxis Override 05-24 14:37: 47 06-03 20:36 :33 No 1 dose, Starting on Mon05/24/22 at 1437 [facility] FLUoxetine (PROzac) capsule 20 mg 05-24 09:00: 00 06-03 20:36 :33 No 20mg QD 20 mg (0.245 mg/kg), Oral, DAILY, 30 doses, First dose on Mon05/24/22 at 0900, Last dose on Mon06/22/22 at 0900, STAT [facility] buprenorphi ne-naloxone (SUBOXONE) 4-1 mg film 1 Film 05-24 09:00: 00 06-03 20:36 :33 No 1{film} QD 1 Film, Sublingual , DAILY, 30 doses, First dose on Mon05/24/22 at 0900, Last dose on Mon06/22/22 at 0900, STAT [facility] vancomycin 1,250 mg in sodium chloride 0.9 % 250 mL VIAL MATE infusion 05-24 04:00: 00 05-25 08:07 :50 No 15mg/kg 1,250 mg (rounded from 1,224 mg = 15 mg/kg 81.6 kg), Intravenou s, EVERY 12 HOURS (NS), First dose (after last reorder) on Mon05/24/22 at 0400, Until Discontinu ed, Administer over 1.5 Hours, [facility] acetaminoph en (TYLENOL) tablet 650 mg 05-23 19:43: 41 05-27 07:48 :05 No 650mg 650 mg (7.97 mg/kg), Oral, EVERY 6 HOURS PRN, Starting on Mon05/23/22 at 1943, Until Mon05/27/22 at 0748, Mild Pain (1-3) - 1st Line, [facility] clonazePAM (KLonoPIN) tablet 0.5 mg 05-23 19:40: 53 06-03 20:36 :33 No .5mg 0.5 mg (0.86027 mg/kg), Oral, 2 TIMES DAILY PRN, Starting on Mon05/23/22 at 1940, Until Mon06/03/22 at 2036, Anxiety, STAT [facility] vancomycin 1,750 mg in 0.9 % NaCl 500 mL IVPB (PREMIX) 05-23 14:03: 00 05-23 22:33 :00 No 20mg/kg 1,750 mg (rounded from 1,632 mg = 20 mg/kg 81.6 kg), Intravenou s, ONCE, 1 dose, On Mon05/23/22 at 1403, Administer over 2 Hours, STAT [facility] clonazePAM (KLONOPIN) 0.5 mg tablet 05-23 00:00: 00 Yes Benzodiazep ine withdrawal without complicatio n .25mg Q.5D Take 0.5 tablets by mouth 2 (two) times a day [facility] buprenorphi ne-naloxone (SUBOXONE) 4-1 mg film 05-23 00:00: 00 Yes Opioid dependence with withdrawal 1{film} QD Place 1 Film under tongue daily [facility] OLANZapine (ZYPREXA) 10 mg tablet 05-23 00:00: 00 Yes Bipolar affective disorder, currently depressed, moderate 10mg Take 1 tablet by mouth every morning [facility] OLANZapine (ZYPREXA) 15 mg tablet 05-23 00:00: 00 Yes Bipolar affective disorder, currently depressed, moderate 15mg Take 1 tablet by mouth every evening [facility] clonazePAM (KLONOPIN) 0.5 mg tablet 05-23 00:00: 00 Yes Benzodiazep ine withdrawal without complicatio n .25mg Q.5D Take 0.5 tablets by mouth 2 (two) times a day [facility] buprenorphi ne-naloxone (SUBOXONE) 4-1 mg film 05-23 00:00: 00 Yes Opioid dependence with withdrawal 1{film} QD Place 1 Film under tongue daily [facility] OLANZapine (ZYPREXA) 10 mg tablet 05-23 00:00: 00 Yes Bipolar affective disorder, currently depressed, moderate 10mg Take 1 tablet by mouth every morning [facility] OLANZapine (ZYPREXA) 15 mg tablet 05-23 00:00: 00 Yes Bipolar affective disorder, currently depressed, moderate 15mg Take 1 tablet by mouth every evening [facility] clonazePAM (KLONOPIN) 0.5 mg tablet 05-23 00:00: 00 Yes Benzodiazep ine withdrawal without complicatio n .25mg Q.5D Take 0.5 tablets by mouth 2 (two) times a day [facility] buprenorphi ne-naloxone (SUBOXONE) 4-1 mg film 05-23 00:00: 00 Yes Opioid dependence with withdrawal 1{film} QD Place 1 Film under tongue daily [facility] OLANZapine (ZYPREXA) 10 mg tablet 05-23 00:00: 00 Yes Bipolar affective disorder, currently depressed, moderate 10mg Take 1 tablet by mouth every morning [facility] OLANZapine (ZYPREXA) 15 mg tablet 05-23 00:00: 00 Yes Bipolar affective disorder, currently depressed, moderate 15mg Take 1 tablet by mouth every evening [facility] clonazePAM (KLONOPIN) 0.5 mg tablet 05-23 00:00: 00 Yes Benzodiazep ine withdrawal without complicatio n .25mg Q.5D Take 0.5 tablets by mouth 2 (two) times a day [facility] buprenorphi ne-naloxone (SUBOXONE) 4-1 mg film 05-23 00:00: 00 Yes Opioid dependence with withdrawal 1{film} QD Place 1 Film under tongue daily [facility] OLANZapine (ZYPREXA) 10 mg tablet 05-23 00:00: 00 Yes Bipolar affective disorder, currently depressed, moderate 10mg Take 1 tablet by mouth every morning [facility] OLANZapine (ZYPREXA) 15 mg tablet 05-23 00:00: 00 Yes Bipolar affective disorder, currently depressed, moderate 15mg Take 1 tablet by mouth every evening [facility] buprenorphi ne-naloxone (SUBOXONE) 4-1 mg film 05-23 00:00: 00 Yes [id number] 1{film} QD Place 1 Film under tongue daily [facility] OLANZapine (ZYPREXA) 10 mg tablet 05-23 00:00: 00 Yes [id number] 10mg Take 1 tablet by mouth every morning [facility] OLANZapine (ZYPREXA) 15 mg tablet 05-23 00:00: 00 Yes [id number] 15mg Take 1 tablet by mouth every evening [facility] clonazePAM (KLONOPIN) 0.5 mg tablet 05-23 00:00: 00 Yes [id number] .25mg Q.5D Take 0.5 tablets by mouth 2 (two) times a day [facility] buprenorphi ne-naloxone (SUBOXONE) 4-1 mg film 05-23 00:00: 00 Yes [id number] 1{film} QD Place 1 Film under tongue daily [facility] OLANZapine (ZYPREXA) 10 mg tablet 05-23 00:00: 00 Yes [id number] 10mg Take 1 tablet by mouth every morning [facility] OLANZapine (ZYPREXA) 15 mg tablet 05-23 00:00: 00 Yes [id number] 15mg Take 1 tablet by mouth every evening [facility] clonazePAM (KLONOPIN) 0.5 mg tablet 05-23 00:00: 00 Yes [id number] .25mg Q.5D Take 0.5 tablets by mouth 2 (two) times a day [facility] buprenorphi ne-naloxone (SUBOXONE) 4-1 mg film 05-23 00:00: 00 Yes [id number] 1{film} QD Place 1 Film under tongue daily [facility] OLANZapine (ZYPREXA) 10 mg tablet 05-23 00:00: 00 Yes [id number] 10mg Take 1 tablet by mouth every morning [facility] OLANZapine (ZYPREXA) 15 mg tablet 05-23 00:00: 00 Yes [id number] 15mg Take 1 tablet by mouth every evening [facility] clonazePAM (KLONOPIN) 0.5 mg tablet 05-23 00:00: 00 Yes [id number] .25mg Q.5D Take 0.5 tablets by mouth 2 (two) times a day [facility] buprenorphi ne-naloxone (SUBOXONE) 4-1 mg film 05-23 00:00: 00 Yes [id number] 1{film} QD Place 1 Film under tongue daily [facility] OLANZapine (ZYPREXA) 10 mg tablet 05-23 00:00: 00 Yes [id number] 10mg Take 1 tablet by mouth every morning [facility] OLANZapine (ZYPREXA) 15 mg tablet 05-23 00:00: 00 Yes [id number] 15mg Take 1 tablet by mouth every evening [facility] clonazePAM (KLONOPIN) 0.5 mg tablet 05-23 00:00: 00 Yes [id number] .25mg Q.5D Take 0.5 tablets by mouth 2 (two) times a day [facility] clonazePAM (KLONOPIN) 0.5 mg tablet 05-23 00:00: 00 Yes Benzodiazep ine withdrawal without complicatio n .25mg Q.5D Take 0.5 tablets by mouth 2 (two) times a day [facility] buprenorphi ne-naloxone (SUBOXONE) 4-1 mg film 05-23 00:00: 00 Yes Opioid dependence with withdrawal 1{film} QD Place 1 Film under tongue daily [facility] OLANZapine (ZYPREXA) 10 mg tablet 05-23 00:00: 00 Yes Bipolar affective disorder, currently depressed, moderate 10mg Take 1 tablet by mouth every morning [facility] OLANZapine (ZYPREXA) 15 mg tablet 05-23 00:00: 00 Yes Bipolar affective disorder, currently depressed, moderate 15mg Take 1 tablet by mouth every evening [facility] clonazePAM (KLONOPIN) 0.5 mg tablet 05-23 00:00: 00 Yes Benzodiazep ine withdrawal without complicatio n .25mg Q.5D Take 0.5 tablets by mouth 2 (two) times a day [facility] buprenorphi ne-naloxone (SUBOXONE) 4-1 mg film 05-23 00:00: 00 Yes Opioid dependence with withdrawal 1{film} QD Place 1 Film under tongue daily [facility] OLANZapine (ZYPREXA) 10 mg tablet 05-23 00:00: 00 Yes Bipolar affective disorder, currently depressed, moderate 10mg Take 1 tablet by mouth every morning [facility] OLANZapine (ZYPREXA) 15 mg tablet 05-23 00:00: 00 Yes Bipolar affective disorder, currently depressed, moderate 15mg Take 1 tablet by mouth every evening [facility] clonazePAM (KLONOPIN) 0.5 mg tablet 05-23 00:00: 00 Yes Benzodiazep ine withdrawal without complicatio n .25mg Q.5D Take 0.5 tablets by mouth 2 (two) times a day [facility] buprenorphi ne-naloxone (SUBOXONE) 4-1 mg film 05-23 00:00: 00 Yes Opioid dependence with withdrawal 1{film} QD Place 1 Film under tongue daily [facility] OLANZapine (ZYPREXA) 10 mg tablet 05-23 00:00: 00 Yes Bipolar affective disorder, currently depressed, moderate 10mg Take 1 tablet by mouth every morning [facility] OLANZapine (ZYPREXA) 15 mg tablet 05-23 00:00: 00 Yes Bipolar affective disorder, currently depressed, moderate 15mg Take 1 tablet by mouth every evening [facility] clonazePAM (KLONOPIN) 0.5 mg tablet 05-23 00:00: 00 Yes Benzodiazep ine withdrawal without complicatio n .25mg Q.5D Take 0.5 tablets by mouth 2 (two) times a day [facility] buprenorphi ne-naloxone (SUBOXONE) 4-1 mg film 05-23 00:00: 00 Yes Opioid dependence with withdrawal 1{film} QD Place 1 Film under tongue daily [facility] OLANZapine (ZYPREXA) 10 mg tablet 05-23 00:00: 00 Yes Bipolar affective disorder, currently depressed, moderate 10mg Take 1 tablet by mouth every morning [facility] OLANZapine (ZYPREXA) 15 mg tablet 05-23 00:00: 00 Yes Bipolar affective disorder, currently depressed, moderate 15mg Take 1 tablet by mouth every evening [facility] clonazePAM (KLONOPIN) 0.5 mg tablet 05-23 00:00: 00 Yes Benzodiazep ine withdrawal without complicatio n .25mg Q.5D Take 0.5 tablets by mouth 2 (two) times a day [facility] buprenorphi ne-naloxone (SUBOXONE) 4-1 mg film 05-23 00:00: 00 Yes Opioid dependence with withdrawal 1{film} QD Place 1 Film under tongue daily [facility] OLANZapine (ZYPREXA) 10 mg tablet 05-23 00:00: 00 Yes Bipolar affective disorder, currently depressed, moderate 10mg Take 1 tablet by mouth every morning [facility] OLANZapine (ZYPREXA) 15 mg tablet 05-23 00:00: 00 Yes Bipolar affective disorder, currently depressed, moderate 15mg Take 1 tablet by mouth every evening [facility] clonazePAM (KLONOPIN) 0.5 mg tablet 05-23 00:00: 00 Yes Benzodiazep ine withdrawal without complicatio n .25mg Q.5D Take 0.5 tablets by mouth 2 (two) times a day [facility] buprenorphi ne-naloxone (SUBOXONE) 4-1 mg film 05-23 00:00: 00 Yes Opioid dependence with withdrawal 1{film} QD Place 1 Film under tongue daily [facility] OLANZapine (ZYPREXA) 10 mg tablet 05-23 00:00: 00 Yes Bipolar affective disorder, currently depressed, moderate 10mg Take 1 tablet by mouth every morning [facility] OLANZapine (ZYPREXA) 15 mg tablet 05-23 00:00: 00 Yes Bipolar affective disorder, currently depressed, moderate 15mg Take 1 tablet by mouth every evening [facility] buprenorphi ne-naloxone (SUBOXONE) 4-1 mg film 05-23 00:00: 00 05-23 00:00 :00 No Opioid dependence with withdrawal 1{film} QD Place 1 Film under tongue daily [facility] buprenorphi ne-naloxone (SUBOXONE) 4-1 mg film 05-23 00:00: 00 05-23 00:00 :00 No Opioid dependence with withdrawal 1{film} QD Place 1 Film under tongue daily [facility] buprenorphi ne-naloxone (SUBOXONE) 4-1 mg film 05-23 00:00: 00 05-23 00:00 :00 No Opioid dependence with withdrawal 1{film} QD Place 1 Film under tongue daily [facility] buprenorphi ne-naloxone (SUBOXONE) 4-1 mg film 05-23 00:00: 00 05-23 00:00 :00 No [id number] 1{film} QD Place 1 Film under tongue daily [facility] buprenorphi ne-naloxone (SUBOXONE) 4-1 mg film 05-23 00:00: 00 05-23 00:00 :00 No [id number] 1{film} QD Place 1 Film under tongue daily [facility] nicotine (NICODERM CQ) 21 mg/24 hr 1 Patch 05-22 16:10: 00 05-22 22:39 :34 No 1{patch } 1 Patch, Transderma l, ONCE, 1 dose, On 05/22/22 at 1610, STAT [facility] acetaminoph en (TYLENOL) tablet 1,000 mg 05-22 13:29: 00 05-22 16:14 :00 No 1000mg 1,000 mg (12.3 mg/kg), Oral, ONCE, 1 dose, On 05/22/22 at 1329, STAT [facility] FLUoxetine (PROZAC) 20 mg capsule 0 05-21 00:00: 00 Yes Bipolar affective disorder, currently depressed, moderate 20mg QD Take 1 capsule by mouth daily [facility] FLUoxetine (PROZAC) 20 mg capsule 0 - 00:00: 00 Yes Bipolar affective disorder, currently depressed, moderate 20mg QD Take 1 capsule by mouth daily [facility] FLUoxetine (PROZAC) 20 mg capsule 0 - 00:00: 00 Yes Bipolar affective disorder, currently depressed, moderate 20mg QD Take 1 capsule by mouth daily [facility] FLUoxetine (PROZAC) 20 mg capsule 0 8- 00:00: 00 Yes Bipolar affective disorder, currently depressed, moderate 20mg QD Take 1 capsule by mouth daily [facility] FLUoxetine (PROZAC) 20 mg capsule 0 -20 00:00: 00 Yes [id number] 20mg QD Take 1 capsule by mouth daily [facility] FLUoxetine (PROZAC) 20 mg capsule 0 8-20 00:00: 00 Yes [id number] 20mg QD Take 1 capsule by mouth daily [facility] FLUoxetine (PROZAC) 20 mg capsule 2021-0 8-20 00:00: 00 Yes [id number] 20mg QD Take 1 capsule by mouth daily [facility] FLUoxetine (PROZAC) 20 mg capsule 0 8-20 00:00: 00 Yes [id number] 20mg QD Take 1 capsule by mouth daily [facility] FLUoxetine (PROZAC) 20 mg capsule 2021-0 8-20 00:00: 00 Yes Bipolar affective disorder, currently depressed, moderate 20mg QD Take 1 capsule by mouth daily [facility] FLUoxetine (PROZAC) 20 mg capsule 2021-0 8-20 00:00: 00 Yes Bipolar affective disorder, currently depressed, moderate 20mg QD Take 1 capsule by mouth daily [facility] FLUoxetine (PROZAC) 20 mg capsule 2021-0 8-20 00:00: 00 Yes Bipolar affective disorder, currently depressed, moderate 20mg QD Take 1 capsule by mouth daily [facility] FLUoxetine (PROZAC) 20 mg capsule 05-21 00:00: 00 Yes Bipolar affective disorder, currently depressed, moderate 20mg QD Take 1 capsule by mouth daily [facility] FLUoxetine (PROZAC) 20 mg capsule 05-21 00:00: 00 Yes Bipolar affective disorder, currently depressed, moderate 20mg QD Take 1 capsule by mouth daily [facility] FLUoxetine (PROZAC) 20 mg capsule 05-21 00:00: 00 Yes Bipolar affective disorder, currently depressed, moderate 20mg QD Take 1 capsule by mouth daily [facility] clonazePAM (KLONOPIN) 0.5 mg tablet 05-21 00:00: 00 05-23 00:00 :00 No Benzodiazep ine withdrawal without complicatio n .5mg Q.5D Take 1 tablet by mouth 2 (two) times a day [facility] buprenorphi ne-naloxone (SUBOXONE) 8-2 mg film 05-21 00:00: 00 05-23 00:00 :00 No Opioid dependence with withdrawal 1{film} QD Place 1 Film under tongue daily [facility] clonazePAM (KLONOPIN) 0.5 mg tablet 05-21 00:00: 00 05-23 00:00 :00 No Benzodiazep ine withdrawal without complicatio n .5mg Q.5D Take 1 tablet by mouth 2 (two) times a day [facility] buprenorphi ne-naloxone (SUBOXONE) 8-2 mg film 05-21 00:00: 00 05-23 00:00 :00 No Opioid dependence with withdrawal 1{film} QD Place 1 Film under tongue daily [facility] clonazePAM (KLONOPIN) 0.5 mg tablet 05-21 00:00: 00 05-23 00:00 :00 No Benzodiazep ine withdrawal without complicatio n .5mg Q.5D Take 1 tablet by mouth 2 (two) times a day [facility] buprenorphi ne-naloxone (SUBOXONE) 8-2 mg film 05-21 00:00: 00 05-23 00:00 :00 No Opioid dependence with withdrawal 1{film} QD Place 1 Film under tongue daily [facility] clonazePAM (KLONOPIN) 0.5 mg tablet 05-21 00:00: 00 05-23 00:00 :00 No [id number] .5mg Q.5D Take 1 tablet by mouth 2 (two) times a day [facility] buprenorphi ne-naloxone (SUBOXONE) 8-2 mg film 05-21 00:00: 00 05-23 00:00 :00 No [id number] 1{film} QD Place 1 Film under tongue daily [facility] clonazePAM (KLONOPIN) 0.5 mg tablet 05-21 00:00: 00 05-23 00:00 :00 No [id number] .5mg Q.5D Take 1 tablet by mouth 2 (two) times a day [facility] buprenorphi ne-naloxone (SUBOXONE) 8-2 mg film 05-21 00:00: 00 05-23 00:00 :00 No [id number] 1{film} QD Place 1 Film under tongue daily [facility] OLANZapine (ZYPREXA) 5 mg tablet 05-20 00:00: 00 05-23 00:00 :00 No Bipolar affective disorder, currently depressed, moderate 5mg Take 1 tablet by mouth every evening [facility] OLANZapine (ZYPREXA) 5 mg tablet 05-20 00:00: 00 05-23 00:00 :00 No Bipolar affective disorder, currently depressed, moderate 5mg Take 1 tablet by mouth every evening [facility] OLANZapine (ZYPREXA) 5 mg tablet 05-20 00:00: 00 05-23 00:00 :00 No Bipolar affective disorder, currently depressed, moderate 5mg Take 1 tablet by mouth every evening [facility] OLANZapine (ZYPREXA) 5 mg tablet 05-20 00:00: 00 05-23 00:00 :00 No [id number] 5mg Take 1 tablet by mouth every evening [facility] OLANZapine (ZYPREXA) 5 mg tablet 05-20 00:00: 00 05-23 00:00 :00 No [id number] 5mg Take 1 tablet by mouth every evening [facility] gabapentin (NEURONTIN) capsule 300 mg 05-19 18:16: 00 05-19 21:49 :40 No 300mg 300 mg (3.68 mg/kg), Oral, 3 TIMES DAILY, First dose on Mon05/19/22 at 1816, Until Discontinu ed, STAT [facility] cephALEXin (KEFLEX) 500 mg capsule 05-19 00:00: 00 06-03 00:00 :00 No Right wrist pain 500mg Take 1 capsule by mouth 4 times daily for 10 days [facility] sulfamethox azole-trime thoprim (BACTRIM DS) 800-160 mg tablet 05-19 00:00: 00 06-03 00:00 :00 No Right wrist pain 1{tbl} Take 1 tablet by mouth every 12 hours for 10 days [facility] cephALEXin (KEFLEX) 500 mg capsule 05-19 00:00: 00 06-03 00:00 :00 No Right wrist pain 500mg Take 1 capsule by mouth 4 times daily for 10 days [facility] sulfamethox azole-trime thoprim (BACTRIM DS) 800-160 mg tablet 05-19 00:00: 00 06-03 00:00 :00 No Right wrist pain 1{tbl} Take 1 tablet by mouth every 12 hours for 10 days [facility] cephALEXin (KEFLEX) 500 mg capsule 05-19 00:00: 00 06-03 00:00 :00 No Right wrist pain 500mg Take 1 capsule by mouth 4 times daily for 10 days [facility] sulfamethox azole-trime thoprim (BACTRIM DS) 800-160 mg tablet 05-19 00:00: 00 06-03 00:00 :00 No Right wrist pain 1{tbl} Take 1 tablet by mouth every 12 hours for 10 days [facility] cephALEXin (KEFLEX) 500 mg capsule 05-19 00:00: 00 06-03 00:00 :00 No [id number] 9100 500mg Take 1 capsule by mouth 4 times daily for 10 days [facility] sulfamethox azole-trime thoprim (BACTRIM DS) 800-160 mg tablet 05-19 00:00: 06-03 00:00 :00 No [id number] 9100 1{tbl} Take 1 tablet by mouth every 12 hours for 10 days [facility] cephALEXin (KEFLEX) 500 mg capsule 05-19 00:00: 00 06-03 00:00 :00 No [id number] 9100 500mg Take 1 capsule by mouth 4 times daily for 10 days [facility] sulfamethox azole-trime thoprim (BACTRIM DS) 800-160 mg tablet 05-19 00:00: 00 06-03 00:00 :00 No [id number] 9100 1{tbl} Take 1 tablet by mouth every 12 hours for 10 days [facility] clonazePAM (KLONOPIN) 0.5 mg tablet 05-18 00:00: 00 05-21 00:00 :00 No Benzodiazep ine withdrawal without complicatio n .25mg Q.5D Take 0.5 tablets by mouth 2 times daily [facility] clonazePAM (KLONOPIN) 0.5 mg tablet 05-18 00:00: 00 05-21 00:00 :00 No Benzodiazep ine withdrawal without complicatio n .25mg Q.5D Take 0.5 tablets by mouth 2 times daily [facility] clonazePAM (KLONOPIN) 0.5 mg tablet 05-18 00:00: 00 05-21 00:00 :00 No Benzodiazep ine withdrawal without complicatio n .25mg Q.5D Take 0.5 tablets by mouth 2 times daily [facility] clonazePAM (KLONOPIN) 0.5 mg tablet 05-18 00:00: 00 05-21 00:00 :00 No [id number] .25mg Q.5D Take 0.5 tablets by mouth 2 times daily [facility] FLUoxetine (PROZAC) 10 mg capsule 05-18 00:00: 00 05-20 00:00 :00 No Bipolar affective disorder, currently depressed, moderate 30mg QD Take 3 capsules by mouth daily [facility] FLUoxetine (PROZAC) 10 mg capsule 05-18 00:00: 00 05-20 00:00 :00 No Bipolar affective disorder, currently depressed, moderate 30mg QD Take 3 capsules by mouth daily [facility] FLUoxetine (PROZAC) 10 mg capsule 05-18 00:00: 00 05-20 00:00 :00 No Bipolar affective disorder, currently depressed, moderate 30mg QD Take 3 capsules by mouth daily [facility] FLUoxetine (PROZAC) 10 mg capsule 05-18 00:00: 00 05-20 00:00 :00 No [id number] 30mg QD Take 3 capsules by mouth daily [facility] OLANZapine (ZYPREXA) 20 mg tablet 05-17 12:51: 54 05-17 00:00 :00 No 20mg QD Take 20 mg by mouth daily [facility] clonazePAM (KLONOPIN) 2 mg tablet 05-17 12:51: 54 05-17 00:00 :00 No 2mg QD Take 2 mg by mouth daily [facility] FLUoxetine (PROZAC) 20 mg capsule 05-17 12:51: 54 05-17 00:00 :00 No 20mg QD Take 20 mg by mouth daily [facility] sulfamethox azole-trime thoprim (BACTRIM DS) 800-160 mg tablet 05-17 00:00: 00 Yes Multiple open wounds of wrist 1{tbl} Take 1 tablet by mouth every 12 hours [facility] gabapentin (NEURONTIN) 300 mg capsule 05-17 00:00: 00 Yes Bipolar affective disorder, currently depressed, moderate 300mg Take 1 capsule by mouth 3 times daily [facility] sulfamethox azole-trime thoprim (BACTRIM DS) 800-160 mg tablet 05-17 00:00: 00 Yes Multiple open wounds of wrist 1{tbl} Take 1 tablet by mouth every 12 hours [facility] gabapentin (NEURONTIN) 300 mg capsule 05-17 00:00: 00 Yes Bipolar affective disorder, currently depressed, moderate 300mg Take 1 capsule by mouth 3 times daily [facility] sulfamethox azole-trime thoprim (BACTRIM DS) 800-160 mg tablet 05-17 00:00: 00 Yes Multiple open wounds of wrist 1{tbl} Take 1 tablet by mouth every 12 hours [facility] gabapentin (NEURONTIN) 300 mg capsule 05-17 00:00: 00 Yes Bipolar affective disorder, currently depressed, moderate 300mg Take 1 capsule by mouth 3 times daily [facility] sulfamethox azole-trime thoprim (BACTRIM DS) 800-160 mg tablet 05-17 00:00: 00 Yes Multiple open wounds of wrist 1{tbl} Take 1 tablet by mouth every 12 hours [facility] gabapentin (NEURONTIN) 300 mg capsule 05-17 00:00: 00 Yes Bipolar affective disorder, currently depressed, moderate 300mg Take 1 capsule by mouth 3 times daily [facility] sulfamethox azole-trime thoprim (BACTRIM DS) 800-160 mg tablet 05-17 00:00: 00 Yes [id number] 1{tbl} Take 1 tablet by mouth every 12 hours [facility] gabapentin (NEURONTIN) 300 mg capsule 05-17 00:00: 00 Yes [id number] 300mg Take 1 capsule by mouth 3 times daily [facility] sulfamethox azole-trime thoprim (BACTRIM DS) 800-160 mg tablet 05-17 00:00: 00 Yes [id number] 1{tbl} Take 1 tablet by mouth every 12 hours [facility] gabapentin (NEURONTIN) 300 mg capsule 05-17 00:00: 00 Yes [id number] 300mg Take 1 capsule by mouth 3 times daily [facility] sulfamethox azole-trime thoprim (BACTRIM DS) 800-160 mg tablet 05-17 00:00: 00 Yes [id number] 1{tbl} Take 1 tablet by mouth every 12 hours [facility] gabapentin (NEURONTIN) 300 mg capsule 05-17 00:00: 00 Yes [id number] 300mg Take 1 capsule by mouth 3 times daily [facility] sulfamethox azole-trime thoprim (BACTRIM DS) 800-160 mg tablet 05-17 00:00: 00 Yes [id number] 1{tbl} Take 1 tablet by mouth every 12 hours [facility] gabapentin (NEURONTIN) 300 mg capsule 05-17 00:00: 00 Yes [id number] 300mg Take 1 capsule by mouth 3 times daily [facility] sulfamethox azole-trime thoprim (BACTRIM DS) 800-160 mg tablet 2021-0 816 00:00: 00 Yes Multiple open wounds of wrist 1{tbl} Take 1 tablet by mouth every 12 hours [facility] gabapentin (NEURONTIN) 300 mg capsule 0 -16 00:00: 00 Yes Bipolar affective disorder, currently depressed, moderate 300mg Take 1 capsule by mouth 3 times daily [facility] sulfamethox azole-trime thoprim (BACTRIM DS) 800-160 mg tablet 0 8-16 00:00: 00 Yes Multiple open wounds of wrist 1{tbl} Take 1 tablet by mouth every 12 hours [facility] gabapentin (NEURONTIN) 300 mg capsule 0 8-16 00:00: 00 Yes Bipolar affective disorder, currently depressed, moderate 300mg Take 1 capsule by mouth 3 times daily [facility] sulfamethox azole-trime thoprim (BACTRIM DS) 800-160 mg tablet 0 8-16 00:00: 00 Yes Multiple open wounds of wrist 1{tbl} Take 1 tablet by mouth every 12 hours [facility] gabapentin (NEURONTIN) 300 mg capsule 0 -16 00:00: 00 Yes Bipolar affective disorder, currently depressed, moderate 300mg Take 1 capsule by mouth 3 times daily [facility] sulfamethox azole-trime thoprim (BACTRIM DS) 800-160 mg tablet 0 16 00:00: 00 Yes Multiple open wounds of wrist 1{tbl} Take 1 tablet by mouth every 12 hours [facility] gabapentin (NEURONTIN) 300 mg capsule 0 -16 00:00: 00 Yes Bipolar affective disorder, currently depressed, moderate 300mg Take 1 capsule by mouth 3 times daily [facility] sulfamethox azole-trime thoprim (BACTRIM DS) 800-160 mg tablet 0 -16 00:00: 00 Yes Multiple open wounds of wrist 1{tbl} Take 1 tablet by mouth every 12 hours [facility] gabapentin (NEURONTIN) 300 mg capsule 0 -16 00:00: 00 Yes Bipolar affective disorder, currently depressed, moderate 300mg Take 1 capsule by mouth 3 times daily [facility] sulfamethox azole-trime thoprim (BACTRIM DS) 800-160 mg tablet 2021-0 8-16 00:00: 00 Yes Multiple open wounds of wrist 1{tbl} Take 1 tablet by mouth every 12 hours [facility] gabapentin (NEURONTIN) 300 mg capsule 05-17 00:00: 00 Yes Bipolar affective disorder, currently depressed, moderate 300mg Take 1 capsule by mouth 3 times daily [facility] cephALEXin (KEFLEX) 500 mg capsule 05-17 00:00: 00 05-25 23:59 :00 No Bipolar affective disorder, currently depressed, moderate 500mg Take 1 capsule by mouth 4 times daily for 7 days [facility] cephALEXin (KEFLEX) 500 mg capsule 05-17 00:00: 00 05-25 23:59 :00 No Bipolar affective disorder, currently depressed, moderate 500mg Take 1 capsule by mouth 4 times daily for 7 days [facility] cephALEXin (KEFLEX) 500 mg capsule 05-17 00:00: 00 05-25 23:59 :00 No Bipolar affective disorder, currently depressed, moderate 500mg Take 1 capsule by mouth 4 times daily for 7 days [facility] cephALEXin (KEFLEX) 500 mg capsule 05-17 00:00: 00 05-25 23:59 :00 No [id number] 500mg Take 1 capsule by mouth 4 times daily for 7 days [facility] cephALEXin (KEFLEX) 500 mg capsule 05-17 00:00: 00 05-25 23:59 :00 No [id number] 500mg Take 1 capsule by mouth 4 times daily for 7 days [facility] OLANZapine (ZYPREXA) 10 mg tablet 05-17 00:00: 00 05-20 00:00 :00 No Bipolar affective disorder, currently depressed, moderate 10mg Q.5D Take 1 tablet by mouth 2 (two) times a day [facility] OLANZapine (ZYPREXA) 10 mg tablet 05-17 00:00: 00 05-20 00:00 :00 No Bipolar affective disorder, currently depressed, moderate 10mg Q.5D Take 1 tablet by mouth 2 (two) times a day [facility] OLANZapine (ZYPREXA) 10 mg tablet 05-17 00:00: 00 05-20 00:00 :00 No Bipolar affective disorder, currently depressed, moderate 10mg Q.5D Take 1 tablet by mouth 2 (two) times a day [facility] OLANZapine (ZYPREXA) 10 mg tablet 16 00:00: 00 05-20 00:00 :00 No [id number] 10mg Q.5D Take 1 tablet by mouth 2 (two) times a day [facility] sulfamethox azole-trime thoprim (BACTRIM DS) 800-160 mg tablet 8-10 00:00: 00 05-17 00:00 :00 No Multiple open wounds of wrist 1{tbl} Take 1 tablet by mouth every 12 hours for 14 days [facility] cephALEXin (KEFLEX) 500 mg capsule 8-10 00:00: 00 05-17 00:00 :00 No Multiple open wounds of wrist 500mg Take 1 capsule by mouth 4 times daily for 14 days [facility] sulfamethox azole-trime thoprim (BACTRIM DS) 800-160 mg tablet 8- 00:00: 00 05-17 00:00 :00 No Multiple open wounds of wrist 1{tbl} Take 1 tablet by mouth every 12 hours for 14 days [facility] cephALEXin (KEFLEX) 500 mg capsule 8-10 00:00: 00 05-17 00:00 :00 No Multiple open wounds of wrist 500mg Take 1 capsule by mouth 4 times daily for 14 days [facility] sulfamethox azole-trime thoprim (BACTRIM DS) 800-160 mg tablet 8-10 00:00: 00 05-17 00:00 :00 No Multiple open wounds of wrist 1{tbl} Take 1 tablet by mouth every 12 hours for 14 days [facility] cephALEXin (KEFLEX) 500 mg capsule 8-10 00:00: 00 05-17 00:00 :00 No Multiple open wounds of wrist 500mg Take 1 capsule by mouth 4 times daily for 14 days [facility] nicotine (NICODERM) 21 mg/24 hr patch 1 Patch 01-31 01:00: 00 Yes 1{patch } 1 Patch, Topical, Administer over 24 Hours, Q24H, First dose on 01/30/21 at 2000, Until Discontinu ed[facility] (ZyPREXA ZYDIS) disintegrat ing tablet 10 mg 01-30 23:15: 00 01-30 23:15 :00 No 10mg 10 mg, Oral, ONCE, 1 dose, 01/30/21 at 1815, JONATHAN [facility] NaCl 0.9% (NS) bolus infusion 1,000 mL 01-30 22:15: 00 01-30 23:27 :00 No 1000mL at 999 mL/hr, 1,000 mL, IV Infusion, ONCE, 1 dose, 01/30/21 at 1715, JONATHAN [facility] No known medications No Un adam [facility] Vital Signs Vital Name Observation Time Observation Value Comments S ource Systolic blood pressure 2023-11-01 19:45:00 162 mm[Hg] [facility] Diastolic blood pressure 2023-11-01 19:45:00 79 mm[Hg] [facility] Heart rate 2023-11-01 19:45:00 111 /min [facility] Body temperature 2023-11-01 19:45:00 36.28 Franci [facility] Respiratory rate 2023-11-01 19:45:00 20 /min [facility] Body height 2023-11-01 19:02:00 172.7 cm [facility] Body weight 2023-11-01 19:02:00 86.183 kg [facility] BMI 2023-11-01 19:02:00 28.89 kg/m2 [facility] Oxygen saturation in Arterial blood by Pulse oximetry 2023-11-01 19:02:00 97 /min [facility] Systolic blood pressure 2023-10-02 17:57:00 143 mm[Hg] [facility] Diastolic blood pressure 2023-10-02 17:57:00 96 mm[Hg] [facility] Heart rate 2023-10-02 17:57:00 117 /min [facility] Body temperature 2023-10-02 17:57:00 36.89 Franci [facility] Respiratory rate 2023-10-02 17:57:00 16 /min [facility] Body height 2023-10-02 17:57:00 172.7 cm [facility] Body weight 2023-10-02 17:57:00 83.915 kg [facility] BMI 2023-10-02 17:57:00 28.13 kg/m2 [facility] Oxygen saturation in Arterial blood by Pulse oximetry 2023-10-02 17:57:00 99 /min [facility] Body weight 2023-09-29 00:19:00 86.183 kg [facility] BMI 2023-09-29 00:19:00 28.06 kg/m2 [facility] Oxygen saturation in Arterial blood by Pulse oximetry 2023-09-29 00:19:00 100 /min [facility] Systolic blood pressure 2023-09-29 00:19:00 162 mm[Hg] [facility] Diastolic blood pressure 2023-09-29 00:19:00 99 mm[Hg] [facility] Heart rate 2023-09-29 00:19:00 95 /min [facility] Body temperature 2023-09-29 00:19:00 37.11 Franci [facility] Respiratory rate 2023-09-29 00:19:00 18 /min [facility] Body height 2023-09-29 00:19:00 175.3 cm [facility] Systolic blood pressure 2022-06-06 18:12:17 130 mm[Hg] [facility] Diastolic blood pressure 2022-06-06 18:12:17 85 mm[Hg] [facility] Heart rate 2022-06-06 18:12:17 88 /min [facility] Body temperature 2022-06-06 18:12:17 37.22 Franci [facility] Respiratory rate 2022-06-06 18:12:17 18 /min [facility] Body height 2022-06-06 17:32:00 175.3 cm [facility] Body weight 2022-06-06 17:32:00 97.523 kg [facility] BMI 2022-06-06 17:32:00 31.75 kg/m2 [facility] Oxygen saturation in Arterial blood by Pulse oximetry 2022-06-06 17:32:00 98 /min [facility] Systolic blood pressure 2022-06-03 15:00:00 122 mm[Hg] [facility] Diastolic blood pressure 2022-06-03 15:00:00 79 mm[Hg] [facility] Heart rate 2022-06-03 15:00:00 95 /min [facility] Body temperature 2022-06-03 15:00:00 36.78 Franci [facility] Respiratory rate 2022-06-03 15:00:00 18 /min [facility] Oxygen saturation in Arterial blood by Pulse oximetry 2022-06-03 15:00:00 96 /min [facility] Body height 2022-05-24 07:27:00 172.7 cm [facility] Body weight 2022-05-24 07:27:00 81.194 kg [facility] BMI 2022-05-24 07:27:00 27.22 kg/m2 [facility] Systolic blood pressure 2022-06-03 15:00:00 122 mm[Hg] [facility] Diastolic blood pressure 2022-06-03 15:00:00 79 mm[Hg] [facility] Heart rate 2022-06-03 15:00:00 95 /min [facility] Body temperature 2022-06-03 15:00:00 36.78 Franci [facility] Respiratory rate 2022-06-03 15:00:00 18 /min [facility] Oxygen saturation in Arterial blood by Pulse oximetry 2022-06-03 15:00:00 96 /min [facility] Body height 2022-05-24 07:27:00 172.7 cm [facility] Body weight 2022-05-24 07:27:00 81.194 kg [facility] BMI 2022-05-24 07:27:00 27.22 kg/m2 [facility] Systolic blood pressure 2022-05-22 16:42:00 132 mm[Hg] [facility] Diastolic blood pressure 2022-05-22 16:42:00 82 mm[Hg] [facility] Heart rate 2022-05-22 16:42:00 83 /min [facility] Body temperature 2022-05-22 16:42:00 36.39 Franci [facility] Respiratory rate 2022-05-22 16:42:00 17 /min [facility] Oxygen saturation in Arterial blood by Pulse oximetry 2022-05-22 16:42:00 98 /min [facility] Body height 2022-05-22 13:27:00 172.7 cm [facility] Body weight 2022-05-22 13:27:00 81.647 kg [facility] BMI 2022-05-22 13:27:00 27.37 kg/m2 [facility] Systolic blood pressure 2022-05-19 19:46:00 136 mm[Hg] [facility] Diastolic blood pressure 2022-05-19 19:46:00 91 mm[Hg] [facility] Heart [facility] 2022-05-19 19:46:00 101 /min [facility] Body temperature 2022-05-19 19:46:00 36.67 Franci [facility] Respiratory rate 2022-05-19 19:46:00 20 /min [facility] Oxygen saturation in Arterial blood by Pulse oximetry 2022-05-19 19:46:00 100 /min [facility] Body height 2022-05-19 12:32:00 172.7 cm [facility] Body weight 2022-05-19 12:32:00 81.647 kg [facility] BMI 2022-05-19 12:32:00 27.37 kg/m2 [facility] Systolic blood pressure 2022-05-19 19:46:00 136 mm[Hg] [facility] Diastolic blood pressure 2022-05-19 19:46:00 91 mm[Hg] [facility] Heart rate 2022-05-19 19:46:00 101 /min [facility] Body temperature 2022-05-19 19:46:00 36.67 Franci [facility] Respiratory rate 2022-05-19 19:46:00 20 /min [facility] Oxygen saturation in Arterial blood by Pulse oximetry 2022-05-19 19:46:00 100 /min [facility] Body height 2022-05-19 12:32:00 172.7 cm [facility] Body weight 2022-05-19 12:32:00 81.647 kg [facility] BMI 2022-05-19 12:32:00 27.37 kg/m2 [facility] Systolic blood pressure 2021-01-31 04:00:00 104 mm[Hg] [facility] Diastolic blood pressure 2021-01-31 04:00:00 70 mm[Hg] [facility] Heart rate 2021-01-31 04:00:00 59 /min [facility] Respiratory rate 2021-01-31 04:00:00 18 /min [facility] Oxygen saturation in Arterial blood by Pulse oximetry 2021-01-31 04:00:00 99 /min [facility] Body temperature 2021-01-30 21:51:00 37.22 Franci [facility] Body weight 2021-01-30 21:50:00 97.523 kg [facility] Systolic blood pressure 2022-06-04 00:00:00 122 mm[Hg] [facility] Diastolic blood pressure 2022-06-04 00:00:00 87 mm[Hg] [facility] Heart rate 2022-06-04 00:00:00 92 /min Marisela [facility] Body temperature 2022-06-04 00:00:00 36.89 Franci [facility] Respiratory rate 2022-06-04 00:00:00 18 /min [facility] Body height 2022-06-04 00:00:00 172.7 cm [facility] Body weight 2022-06-04 00:00:00 83.915 kg [facility] BMI 2022-06-04 00:00:00 28.13 kg/m2 [facility] Oxygen saturation in Arterial blood by Pulse oximetry 2022-06-04 00:00:00 97 /min [facility] Systolic blood pressure 2022-05-23 08:00:00 125 mm[Hg] [facility] Diastolic blood pressure 2022-05-23 08:00:00 79 mm[Hg] [facility] Heart rate 2022-05-23 08:00:00 79 /min [facility] Body temperature 2022-05-23 08:00:00 36.83 Franci [facility] Respiratory rate 2022-05-23 08:00:00 20 /min [facility] Oxygen saturation in Arterial blood by Pulse oximetry 2022-05-23 08:00:00 95 /min [facility] Body height 2022-05-19 11:13:00 172.7 cm [facility] Body weight 2022-05-19 11:13:00 81.557 kg [facility] BMI 2022-05-19 11:13:00 27.34 kg/m2 [facility] Procedures Procedure Date / Time Performed Performing Clinician Source ASSIGNMENT OF BENEFITS 2023-11-01 20:19:08 Docto r Unassigned, [place] [facility] CONSENT/REFUSAL FOR DIAGNOSIS AND TREATMENT 2023-11-01 18:57:25 Doctor Unassigned, [place] [facility] CONSENT/REFUSAL FOR DIAGNOSIS AND TREATMENT 2023-10-02 17:51:45 Doctor Unassigned, [place] [facility] NOTICE OF PRIVACY PRACTICES 2023-09-29 00:09:30 Doctor Unassigned, [place] [facility] CONSENT/REFUSAL FOR DIAGNOSIS AND TREATMENT 2023-09-29 00:09:09 Doctor Unassigned, [place] [facility] CONSENT/REFUSAL FOR DIAGNOSIS AND TREATMENT 2022-06-06 17:25:33 Doctor Unassigned, [place] [facility] BASIC METABOLIC PANEL 2022-06-02 03:57:00 [facility] 2022-06-02 03:57:00 Ian Lawson [facility] AMIKACIN, TROUGH LEVEL 2022-05-31 21:13:00 [facility] AMIKACIN, TROUGH LEVEL 2022-05-31 21:13:00 Mely Soliz [facility] WOUND/ABSCESS CULTURE AND GRAM STAIN 2022-05-31 08:53[facility]05-31 08:53[facility]00 [facility] 2022-05-31 08:53:00 Germán Nabil [facility] FUNGUS STAIN AND CULTURE 2022-05-31 08:53:00 [facility] 2022-05-31 08:53:00 [facility] 2022-05-31 08:53:00 Germán [facility] FUNGUS STAIN AND CULTURE 2022-05-31 08:53:00 Pilo Dunlapjeanmarie [facility] WOUND/ABSCESS CULTURE AND GRAM STAIN 2022-05-31 08:53:00 Gabe Dunlap [facility] BASIC METABOLIC PANEL 2022-05-31 05:12:00 Ian Lawson [facility] BASIC METABOLIC PANEL 2022-05-31 05:12:00 Ian Lawson [facility] GLUCOSE POC 2022-05-29 08:04:00 [facility]pe [facility] GLUCOSE POC 2022-05-29 08:04:00 [facility]pe [facility] CBC (WITHOUT DIFFERENTIAL) 2022-05-29 04:33:00 LawsonHeath [facility] BASIC METABOLIC PANEL 2022-05-29 04:33:00 Lulu Ian Garcia [facility] BASIC METABOLIC PANEL 2022-05-29 04:33:00 Lawson Ian wilson [facility] CBC (WITHOUT DIFFERENTIAL) 2022-05-29 04:33:00 LawsonHeath [facility] GLUCOSE POC 2022-05-28 16:49:00 [facility]Lupe [facility] GLUCOSE POC 2022-05-28 16:49:00 [facility] GLUCOSE POC 2022-05-28 11:46:00 [facility] GLUCOSE POC 2022-05-28 11:46:00 [facility] GLUCOSE POC 2022-05-28 08:24:00 [facility]Lupe [facility] GLUCOSE POC 2022-05-28 08:24:00 [facility]cinLupe [facility] CBC (WITHOUT DIFFERENTIAL) 2022-05-28 04:36:00 LawsonHeath [facility] BASIC METABOLIC PANEL 2022-05-28 04:36:00 Lawson Ian Garcia [facility] BASIC METABOLIC PANEL 2022-05-28 04:36:00 Lawson Ian Garcia [facility] CBC (WITHOUT DIFFERENTIAL) 2022-05-28 04:36:00 Heath Lawson [facility] CBC (WITHOUT DIFFERENTIAL) 2022-05-27 05:10:00 LawsonHeath [facility] BASIC METABOLIC PANEL 2022-05-27 05:10:00 Ian Lawson [facility] AMIKACIN, RANDOM LEVEL 2022-05-27 05:10:00 MarcinMatteo [facility] BASIC METABOLIC PANEL 2022-05-27 05:10:00 Ian Lawson [facility] CBC (WITHOUT DIFFERENTIAL) 2022-05-27 05:10:00 Heath Lawson [facility] AMIKACIN, RANDOM LEVEL 2022-05-27 05:10:00 Marcin, aMtteo [facility] AMIKACIN, RANDOM LEVEL 2022-05-26 23:35:00 Marcin, Matteo munozd S [facility] AMIKACIN, RANDOM LEVEL 2022-05-26 23:35:00 Marcin, Matteo munozd S [facility] AMIKACIN, TROUGH LEVEL 2022-05-26 05:53:00 Haezl Obando [facility] CBC (WITHOUT DIFFERENTIAL) 2022-05-26 05:53:00 [facility] 2022-05-26 05:53:00 Ian Lawson [facility] BASIC METABOLIC PANEL 2022-05-26 05:53:00 Ian Lawson [facility] CBC (WITHOUT DIFFERENTIAL) 2022-05-26 05:53:00 Heath Lawson [facility] AMIKACIN, TROUGH LEVEL 2022-05-26 05:53:00 Hazel Obando [facility] CONSULT CLINICAL CASE MANAGEMENT (RN/SW) 2022-05-25 14:55:14 Myles Lazcano [facility] CONSULT CLINICAL CASE MANAGEMENT (RN/SW) 2022-05-25 14:55:14 Myles Lazcano [facility] CBC/DIFF 2022-05-25 08:24:00 Heath Lawson [facility] BASIC METABOLIC PANEL 2022-05-25 08:24:00 Lawson Ian Garcia [facility] CBC 2022-05-25 08:24:00 Heath Lawson [facility] BASIC METABOLIC PANEL 2022-05-25 08:24:00 Ian Lawson [facility] CBC/DIFF 2022-05-25 08:24:00 Lawson Heath H [facility] CBC 2022-05-25 08:24:00 Heath Lawson [facility] ANAEROBE CULTURE 2022-05-24 20:47:00 Germán [facility] WOUND/ABSCESS CULTURE AND GRAM STAIN 2022-05-24 20:47:00 Germán [facility] ANAEROBE CULTURE 2022-05-24 20:47:00 Germán, [facility] WOUND/ABSCESS CULTURE AND GRAM STAIN 2022-05-24 20:47:00 Germán [facility] [employer] STAIN AND CULTURE 2022-05-24 15:44:00 Germán, [facility] FUNGUS STAIN AND CULTURE 2022-05-24 15:44:00 Germán, [facility] [employer] STAIN AND CULTURE 2022-05-24 15:44:00 Germán [facility] FUNGUS STAIN AND CULTURE 2022-05-24 15:44:00 Germán [facility] INFUSION PUMP 2022-05-24 04:24:[address] [facility] INFUSION PUMP 2022-05-24 04:24:[address] [facility] CBC/DIFF 2022-05-24 04:22:00 [facility] CBC 2022-05-24 04:22[facility]00 [facility] CBC[facility]DIFF 2022-05-24 04:22:00 [facility]22-05-24 04:22:00 [facility] HIV AG/AB COMBO DIAGNOSTIC/SYMPTOMATIC 2022-05-23 18:44:00 [facility] HEPATITIS PANEL 2022-05-23 18:44:00 [facility] HEPATITIS PANEL 2022-05-23 18:44:00 [facility] HIV AG/AB COMBO DIAGNOSTIC/SYMPTOMATIC 2022-05-23 18:44:00 [facility] SARS-COV-2, FLU A/B, RSV 2022-05-23 15:41:00 [facility] CORONAVIR[facility], COVID-19, YOKASTA 2022-05-23 15:41:00 [facility] CORONAVIRUS, COVID-19, YOKASTA 2022-05-23 15:41:00 Orlando Donald [facility] SARS-COV-2, FLU A/B, RSV 2022-05-23 15:41:00 Orlando Donald [facility] BASIC METABOLIC PANEL 2022-05-23 11:25:00 German Mckinney [facility] CBC/DIFF 2022-05-23 11:25:00 Stefanie Mckinney [facility] CBC 2022-05-23 11:25:00 Stefanie Mckinney [facility] SED RATE 2022-05-23 11:25:00 Orlando Donald [facility] C-REACTIVE PROT 2022-05-23 11:25:00 Orlando Donald [facility] BASIC METABOLIC PANEL 2022-05-23 11:25:00 German Mckinney [facility] CBC/DIFF 2022-05-23 11:25:00 Stefanie Mckinney [facility] C-REACTIVE PROT 2022-05-23 11:25:00 Orlando Donald [facility] SED RATE 2022-05-23 11:25:00 Orlando Donald [facility] CBC 2022-05-23 11:25:00 Stefanie Mckinney [facility] LIMITED BEDSIDE ULTRASOUND 2022-05-23 11:08:27 Unknown, Provider [facility] HC POC URINE DRUG SCREEN 2022-05-19 21:30:00 [facility] HC POC URINE DRUG SCREEN 2022-05-19 21:30:00 [facility] I&D OF ABSCESS 2022-05-19 19:03:24 Chris Marrufo [facility] I&D OF ABSCESS 2022-05-19 19:03:24 Chris Marrufo [facility] WOUND/ABSCESS CULTURE AND GRAM STAIN 2022-05-19 18:54:00 Chris Marrufo [facility] WOUND/ABSCESS CULTURE AND GRAM STAIN 2022-05-19 18:54:00 Chris Marrufo [facility] XRAY FOREARM 2 VIEWS MIN 2022-05-19 17:04:37 Keagan Wells [facility] XRAY FOREARM 2 VIEWS MIN 2022-05-19 17:04:37 Keagan Wells [facility] CBC/DIFF 2022-05-19 14:29:00 [facility] 2022-05-19 14:29:00 Dana Wells [facility] LACTIC ACID 2022-05-19 14:29:00 Russell [facility] CBC 2022-05-19 14:29:00 Russell [facility] SED RATE 2022-05-19 14:29:00 Russell Naomi [facility] C-REACTIVE PROT 2022-05-19 14:29:00 Russell Naomi [facility] BASIC METABOLIC PANEL 2022-05-19 14:29:00 Dana Wells [facility] CBC/DIFF 2022-05-19 14:29:00 Russell [facility] C-REACTIVE PROT 2022-05-19 14:29:00 Naomi Wells [facility] LACTIC ACID 2022-05-19 14:29:00 Russell Naomi [facility] SED RATE 2022-05-19 14:29:00 Russell Naomi [facility] CBC 2022-05-19 14:29:00 [facility] POC URINE DRUG SCREEN 2022-05-19 11:15:00 [facility] HC POC URINE DRUG SCREEN 2022-05-19 11:15:00 [facility] POC COVID-19 2022-05-17 17:50:00 Kerline Omer [facility] HC POC URINE DRUG SCREEN 2022-05-12 17:47:00 Rebel Case [facility] HC POC URINE DRUG SCREEN 2022-05-12 17:47:00 Rebel Case [facility] POC COVID-19 2022-05-11 23:56:00 Rebel Case [facility] XRAY WRIST 3 VIEWS MIN 2022-05-11 17:04:00 Hanh Rodriguez [facility] BASIC METABOLIC PANEL 2022-05-11 16:20:00 German Rodriguez [facility] HIV AG/AB COMBO ROUTINE SCREENING 2022-05-11 16:20:00 Hanh Rodriguez [facility] CBC 2022-05-11 16:20:00 Hanh Rodriguez [facility] CBC/DIFF 2022-05-11 16:20:00 MichaelHanh [facility] URINE DRUG (IMMUNOASSAY) - COMPREHENSIVE DRUG SCREEN 2021-01-30 22:04:00 Shy Martin [facility] HEPATIC FUNCTION PANEL (43029) (ALB,T.PRO,BILI T,BU/BC,ALT,AST,ALK PHOS) 2021-01-30 22:03:00 Shy Martin [facility] BASIC METABOLIC PANEL (NA, K, CL, CO2, GLUCOSE, BUN, CREATININE, CA) 2021-01-30 22:03:00 Shy Martin [facility] SALICYLATE 2021-01-30 22:03:00 [facility] 2021-01-30 22:03:00 Shy Martin [facility] CBC WITH DIFF 2021-01-30 22:03:00 [facility]IS 2021-01-30 22:02:00 Shy Martin [facility] COVID-19 (ID NOW RAPID TESTING) 2021-01-30 22:02:00 Shy Martin [facility] NOTICE OF PRIVACY PRACTICES 2021-01-30 21:37:21 Doctor Unassigned, [place] [facility] CONSENT/REFUSAL FOR DIAGNOSIS AND TREATMENT 2021-01-30 21:37:00 Doctor Unassigned, [place] [facility] Plan of Care Planned Activity Planned Date Details Comments Source Future Scheduled Test 2023-07-02 00:00:00 IMM Influenza Seasonal (>/= 19 yrs) [code = IMM Influenza Seasonal (>/= 19 yrs)] [facility] Scheduled Test 2023-07-02 00:00:00 IMM Influenza Seasonal (>/= 19 yrs) [code = IMM Influenza Seasonal (>/= 19 yrs)] [facility] Scheduled Test 2023-06-02 00:00:00 COVID-19 Vaccine ( season) [code = COVID-19 Vaccine ( season)] [facility] Scheduled Test 2023-06-02 00:00:00 IMM Influenza Seasonal (>/= 19 yrs) [code = IMM Influenza Seasonal (>/= 19 yrs)] [facility] Scheduled Test 2023-06-02 00:00:00 IMM Influenza Seasonal (>/= 19 yrs) [code = IMM Influenza Seasonal (>/= 19 yrs)] [facility] Scheduled Test 2023-06-02 00:00:00 IMM Influenza Seasonal (>/= 19 yrs) [code = IMM Influenza Seasonal (>/= 19 yrs)] [facility] Scheduled Test 2023-06-02 00:00:00 IMM Influenza Seasonal (>/= 19 yrs) [code = IMM Influenza Seasonal (>/= 19 yrs)] [facility] Scheduled Test 2023-06-02 00:00:00 IMM Influenza Seasonal (>/= 19 yrs) [code = IMM Influenza Seasonal (>/= 19 yrs)] [facility] Scheduled Test 2023-06-02 00:00:00 IMM Influenza Seasonal (>/= 19 yrs) [code = IMM Influenza Seasonal (>/= 19 yrs)] [facility] Scheduled Test 2022-07-02 00:00:00 IMM Influenza Seasonal (>/= 19 yrs) [code = IMM Influenza Seasonal (>/= 19 yrs)] [facility] Scheduled Test 2022-07-02 00:00:00 IMM Influenza Seasonal (>/= 19 yrs) [code = IMM Influenza Seasonal (>/= 19 yrs)] [facility] Scheduled Test 2022-07-02 00:00:00 IMM Influenza Seasonal (>/= 19 yrs) [code = IMM Influenza Seasonal (>/= 19 yrs)] [facility] Scheduled Test 1992 00:00:00 Imm Pneumococcal 0-64 (1 of 2 - PCV) [code = Imm Pneumococcal 0-64 (1 of 2 - PCV)] [facility] Scheduled Test 1992 00:00:00 Imm Pneumococcal 0-64 (1 - PCV) [code = Imm Pneumococcal 0-64 (1 - PCV)] [facility] Scheduled Test 1992 00:00:00 Imm Pneumococcal 0-64 (1 - PCV) [code = Imm Pneumococcal 0-64 (1 - PCV)] [facility] Scheduled Test 1992 00:00:00 Imm Pneumococcal 0-64 (1 - PCV) [code = Imm Pneumococcal 0-64 (1 - PCV)] [facility] Scheduled Test 1992 00:00:00 Imm Pneumococcal 0-64 (1 - PCV) [code = Imm Pneumococcal 0-64 (1 - PCV)] [facility] Scheduled Test 1992 00:00:00 Imm Pneumococcal 0-64 (1 - PCV) [code = Imm Pneumococcal 0-64 (1 - PCV)] [facility] Scheduled Test 1992 00:00:00 Imm Pneumococcal 0-64 (1 - PCV) [code = Imm Pneumococcal 0-64 (1 - PCV)] [facility] Scheduled Test 1992 00:00:00 Imm Pneumococcal 0-64 (1 - PCV) [code = Imm Pneumococcal 0-64 (1 - PCV)] [facility] Scheduled Test 1992 00:00:00 Imm Pneumococcal 0-64 (1 - PCV) [code = Imm Pneumococcal 0-64 (1 - PCV)] [facility] Scheduled Test 1992 00:00:00 Imm Pneumococcal 0-64 (1 of 2 - PCV) [code = Imm Pneumococcal 0-64 (1 of 2 - PCV)] [facility] Scheduled Test 1992 00:00:00 Imm Pneumococcal 0-64 (1 of 2 - PCV) [code = Imm Pneumococcal 0-64 (1 of 2 - PCV)] [facility] Scheduled Test 1986 00:00:00 COVID-19 Vaccine (#1) [code = COVID-19 Vaccine (#1)] [facility] Scheduled Test 1986 00:00:00 COVID-19 Vaccine (#1) [code = COVID-19 Vaccine (#1)] [facility] Scheduled Test 1986 00:00:00 COVID-19 Vaccine (#1) [code = COVID-19 Vaccine (#1)] [facility] Scheduled Test 1986 00:00:00 COVID-19 Vaccine (#1) [code = COVID-19 Vaccine (#1)] [facility] Scheduled Test 1986 00:00:00 COVID-19 Vaccine (#1) [code = COVID-19 Vaccine (#1)] [facility] Scheduled Test 1986 00:00:00 COVID-19 Vaccine (#1) [code = COVID-19 Vaccine (#1)] [facility] Scheduled Test 1986 00:00:00 COVID-19 Vaccine (#1) [code = COVID-19 Vaccine (#1)] [facility] Scheduled Test 1986 00:00:00 COVID-19 Vaccine (#1) [code = COVID-19 Vaccine (#1)] [facility] Scheduled Test 1986 00:00:00 COVID-19 Vaccine (#1) [code = COVID-19 Vaccine (#1)] [facility] Scheduled Test 1986 00:00:00 COVID-19 Vaccine (#1) [code = COVID-19 Vaccine (#1)] [facility] Scheduled Test 1986 00:00:00 Fluoride Varnish [code = Fluoride Varnish] [facility] Scheduled Test 1986 00:00:00 Fluoride Varnish [code = Fluoride Varnish] [facility] Encounters Start Date/Time End Date/Time Encounter Type Admission Type Attending [facility] Facility Care Department Encounter ID Source 2022-06-15 12:36:45 Outpatient [facility] [id number] [facility] 2022-06-14 12:01:29 Emergency HFD HFD [id number] [facility] 2022-06-06 23:18:34 Outpatient [facility] [id number] [facility] 2022-06-06 23:16:04 Outpatient [facility] [id number] [facility] 2022-04-06 05:42:38 Outpatient [facility] [id number] [facility] 2020-12-14 08:08:00 Inpatient [facility] LJ [id number] [facility] 2020-12-13 19:49:00 Inpatient [facility]AB[facility] LJ [id number] [facility] 2020-12-06 14:30:44 Inpatient HCAB[facility] HCABM [id number] [facility] 2023-11-01 13:02:00 2023-11-01 14:34:00 Emergency X Ella GONZALEZ [facility] ERT [id number] [facility] 2023-11-01 13:02:00 2023-11-01 14:34:00 Emergency Ella Gonzalez [facility] [id number] [id number] [id number] [facility] 2023-10-02 11:59:00 2023-10-02 12:42:00 Emergency Deb Burgos [facility] [id number] 350.1.13.10 [id number] [id number] [facility] 2023-10-02 11:59:00 2023-10-02 12:42:00 Emergency X DEB BURGOS [facility] ERT [id number] [facility] 2023-09-28 18:19:00 2023-09-28 19:26:00 Emergency DYANA DAILY [facility] ERT [id number] [facility] 2023-09-28 18:19:00 2023-09-28 19:26:00 Emergency Dyana Yanes [facility] [id number] [id number] [id number] [id number] [facility] 2023-09-28 00:00:00 2023-09-28 00:00:00 Orders Only Doctor Unassigned, [place] [facility] [id number] 350.1.13.10 4.2.7.2.686 [id number] [facility] 2022-06-24 08:00:00 2022-06-24 08:30:00 Office Visit Fanta Hernandez [facility] [id number] [id number] [id number] [facility] 2022-06-20 00:00:00 2022-06-20 00:00:00 Outpatient [facility] [id number] [facility] 2022-06-06 12:34:00 2022-06-06 13:23:00 Emergency DANIEL PARKER [facility] [id number] [facility] 2022-06-06 12:34:00 2022-06-06 13:23:00 Emergency Daniel Dumont [facility] [id number] 350.1.13.10 4.2.7.2.686 [id number] [facility] 2022-06-03 00:00:00 2022-06-04 22:29:00 Emergency [facility] 1.2.840.114 [id number] [facility] 2022-06-03 00:00:00 2022-06-04 22:29:00 Emergency [facility] [id number] [facility] 2022-06-03 23:37:47 2022-06-03 23:59:00 Outpatient [facility] [id number] [facility] 2022-06-03 21:28:26 2022-06-03 23:36:00 Outpatient [facility] [id number] [facility] 2022-05-23 13:09:00 2022-06-03 18:30:00 Hospital Encounter Jose F Reyes David S [facility] 1.2.840.114 [id number] .[id number] [facility] 2022-05-30 16:04:37 2022-05-30 16:04:39 Inpatient [facility] [id number] [facility] 2022-05-23 13:09:00 2022-05-23 13:09:00 Inpatient 1 LUPE BURCH [facility] [id number] [facility] 2022-05-22 19:04:00 2022-05-22 20:39:00 Emergency Kalina Meraz [facility] 1.2.840.114 [id number] .[id number] [facility] 2022-05-19 14:06:00 2022-05-19 19:49:00 Emergency 1 DANIEL PETIT [facility] [id number] [facility] 2022-05-19 14:06:00 2022-05-19 19:49:00 Emergency Marisabel Daniel [facility] 1.2.840.114 [id number] .[id number] [facility] 2022-05-19 16:50:11 2022-05-19 17:04:43 Emergency [facility] [id number] [facility] 2022-05-18 10:13:00 2022-05-19 10:30:00 Inpatient [facility] [id number] [facility] 2022-05-11 22:33:18 2022-05-18 09:43:00 Inpatient OMERIKERA [facility] [id number] [facility] 2022-05-11 19:53:00 2022-05-11 21:53:00 Emergency MarisabelDaniel argueta [facility] [id number] [facility] 2022-05-11 19:53:00 2022-05-11 21:53:00 Emergency Daniel Petit [facility] [id number] [facility] 2022-05-11 16:54:18 2022-05-11 17:05:03 Emergency [facility] [id number] [facility] 2022-05-11 16:05:00 2022-05-11 16:05:00 Emergency 1 [facility] [id number] [facility] 2021-01-30 16:48:00 2021-01-30 23:59:00 Emergency Shy Martin [facility] 1.2.840.114 350.1.13.10 [id number] [id number] [facility] 2021-01-30 16:48:00 2021-01-30 16:48:00 Emergency X SHY MARTIN [facility] [id number] [facility] 2021-01-30 00:00:00 2021-01-30 00:00:00 Orders Only Doctor Unassigned, [place] [facility] 1.2.840.114 350.1.13.10 4.2.7.2.686 [id number] [facility] 2020-03-03 09:37:00 2020-03-03 09:37:00 Emergency X [facility] ERT [id number] [facility] Results Test Description Test Time Test Comments Results Result Co mments Source [facility] [id number] 11:04:16* Test Item Value Reference Range Interpretation Comme nts AFB Culture (test code = 543-9) No acid fast bacilli isolated in 6 weeks AFB Stain (test code = 676-7) No acid fast bacilli seen TRACY (test code = TRACY) Reference value: N o acid fast bacilli isolated [facility] [id number] 11:04:16* Test Item Value Reference Range Interpretation Comme nts AFB Culture (test code = 543-9) No acid fast bacilli isolated in 6 weeks AFB Stain (test code = 676-7) No acid fast bacilli seen TRACY (test code = TRACY) Reference value: N o acid fast bacilli isolated [facility] [id number] 21:02:46* Test Item Value Reference Range Interpretation Comme nts AFB Culture (test code = 543-9) No acid fast bacilli isolated in 6 weeks AFB Stain (test code = 676-7) No acid fast bacilli seen TRACY (test code = TRACY) Reference value: N o acid fast bacilli isolated [facility] [id number] 21:02:45* Test Item Value Reference Range Interpretation Comme nts AFB Culture (test code = 543-9) No acid fast bacilli isolated in 6 weeks AFB Stain (test code = 676-7) No acid fast bacilli seen TRACY (test code = TRACY) Reference value: N o acid fast bacilli isolated [facility] [id number] 20:02:40* Test Item Value Reference Range Interpretation Comme nts AFB Culture (test code = 543-9) No acid fast bacilli isolated in 6 weeks AFB Stain (test code = 676-7) No acid fast bacilli seen TRACY (test code = TRACY) Reference value: N o acid fast bacilli isolated [facility] [id number] 19:03:24* Test Item Value Reference Range Interpretation Comme nts Fungus Culture (test code = 580-1) No fungus isolated in 4 weeks Fungus Stain (test code = 658-5) No fungal elements seen TRACY (test code = TRACY) Reference value: N o fungus isolated [facility] [id number] 19:03:24* Test Item Value Reference Range Interpretation Comme nts Fungus Culture (test code = 580-1) No fungus isolated in 4 weeks Fungus Stain (test code = 658-5) No fungal elements seen TRACY (test code = TRACY) Reference value: N o fungus isolated [facility] [id number] 19:03:24* Test Item Value Reference Range Interpretation Comme nts Fungus Culture (test code = 580-1) No fungus isolated in 4 weeks Fungus Stain (test code = 658-5) No fungal elements seen TARCY (test code = TRACY) Reference value: N o fungus isolated [facility] [id number] 05:04:44* Test Item Value Reference Range Interpretation Comme nts Fungus Culture (test code = 580-1) No fungus isolated in 4 weeks Fungus Stain (test code = 658-5) No fungal elements seen TRACY (test code = TRACY) Reference value: N o fungus isolated [facility] [id number] 05:04:43* Test Item Value Reference Range Interpretation Comme nts Fungus Culture (test code = 580-1) No fungus isolated in 4 weeks Fungus Stain (test code = 658-5) No fungal elements seen TRACY (test code = TRACY) Reference value: N o fungus isolated [facility] [id number] 04:04:04* Test Item Value Reference Range Interpretation Comme nts Fungus Culture (test code = 580-1) No fungus isolated in 4 weeks Fungus Stain (test code = 658-5) No fungal elements seen TRACY (test code = TRACY) Reference value: N [facility] [id number] 06:33:06* Test Item Value Reference Range Interpretation Comme nts Anaerobe Culture (test code = 635-3) No anaerobes isolated in 5 days TRACY (test code = TRACY) Reference value: N o anaerobes isolated [facility] [id number] 06:33:06* Test Item Value Reference Range Interpretation Comme nts Anaerobe Culture (test code = 635-3) No anaerobes isolated in 5 days TRACY (test code = TRACY) Reference value: N o anaerobes isolated [facility] [id number] 06:33:06* Test Item Value Reference Range Interpretation Comme nts Anaerobe Culture (test code = 635-3) No anaerobes isolated in 5 days TRACY (test code = TRACY) Reference value: N o anaerobes isolated [facility] [id number] 06:33:06* Test Item Value Reference Range Interpretation Comme nts Anaerobe Culture (test code = 635-3) No anaerobes isolated in 5 days TRACY (test code = TRACY) Reference value: N o anaerobes isolated [facility] Gram [id number] 08:20:27* Test Item Value Reference Range Interpretation Comme nts Wound Culture (test code = 6463-4) No growth 3 days Gram Stain (test code = 664-3) No organisms seen TRACY (test code = TRACY) Reference value: Non-sterile sites may be contaminated with esperanza that is considered normal or otherwise not clinically relevant. As appropriate, normal results will indicate the presence or absence of such esperanza. Otherwise, the reference value is considered "No growth". [facility] Gram [id number] 08:20:27* Test Item Value Reference Range Interpretation Comme nts Wound Culture (test code = 6463-4) No growth 3 days Gram Stain (test code = 664-3) No organisms seen TRACY (test code = TRACY) Reference value: Non-sterile sites may be contaminated with esperanza that is considered normal or otherwise not clinically relevant. As appropriate, normal results will indicate the presence or absence of such esperanza. Otherwise, the reference value is considered "No growth". [facility] & Gram [id number] 08:20:27* Test Item Value Reference Range Interpretation Comme nts Wound Culture (test code = 6463-4) No growth 3 days Gram Stain (test code = 664-3) No organisms seen TRACY (test code = TRACY) Reference value: Non-sterile sites may be contaminated with esperanza that is considered normal or otherwise not clinically relevant. As appropriate, normal results will indicate the presence or absence of such esperanza. Otherwise, the reference value is considered "No growth". [facility] & Gram [id number] 08:20:27* Test Item Value Reference Range Interpretation Comme nts Wound Culture (test code = 6463-4) No growth 3 days Gram Stain (test code = 664-3) No organisms seen TRACY (test code = TRACY) Reference value: Non-sterile sites may be contaminated with esperanza that is considered normal or otherwise not clinically relevant. As appropriate, normal results will indicate the presence or absence of such esperanza. Otherwise, the reference value is considered "No growth". [facility] & Gram [id number] 10:37:20* Test Item Value Reference Range Interpretation Comme nts Wound Culture (test code = 6463-4) 1+ Acid fast bacilli AA REFER TO [id number] Gram Stain (test code = 664-3) No organisms seen TRACY (test code = TRACY) Reference value: Non-sterile sites may be contaminated with esperanza that is considered normal or otherwise not clinically relevant. As appropriate, normal results will indicate the presence or absence of such esperanza. Otherwise, the reference value is considered "No growth". Lab Interpretation (test code = 22391-6) Abnormal [facility] [id number] 10:37:20* Test Item Value Reference Range Interpretation Comme nts Bacteria Spec Cult (test code = 6463-4) ACID-FAST BACILLUS AA 1+ Acid fast bacilliREFER TO [id number] Reference value: Non-sterile sites may be contaminated with esperanza that is considered normal or otherwise not clinically relevant. As appropriate, normal results will indicate the presence or absence of such esperanza. Otherwise, the reference value is considered "No growth".HHSWound/Abscess Culture & Gram Stain 2022-06-03 10:36:38* Test Item Value Reference Range Interpretation Comme nts Wound Culture (test code = 6463-4) Acid fast bacilli AA REFER TO [id number] Gram Stain (test code = 664-3) No organisms seen TRACY (test code = TRACY) Reference value: Non-sterile sites may be contaminated with esperanza that is considered normal or otherwise not clinically relevant. As appropriate, normal results will indicate the presence or absence of such esperanza. Otherwise, the reference value is considered "No growth". Lab Interpretation (test code = 26583-1) Abnormal [facility] [id number] 10:36:38* Test Item Value Reference Range Interpretation Comme nts Bacteria Spec Cult (test code = 6463-4) ACID-FAST BACILLUS AA Acid fast bacilliREFER TO [id number] Reference value: Non-sterile sites may be contaminated with esperanza that is considered normal or otherwise not clinically relevant. As appropriate, normal results will indicate the presence or absence of such esperanza. Otherwise, the reference value is considered "No growth".HHSWound/Abscess Culture & Gram Stain 2022-06-03 10:35:39* Test Item Value Reference Range Interpretation Comme nts Wound Culture (test code = 6463-4) Acid fast bacilli AA REFER TO [id number] Gram Stain (test code = 664-3) No organisms seen TRACY (test code = TRACY) Reference value: Non-sterile sites may be contaminated with esperanza that is considered normal or otherwise not clinically relevant. As appropriate, normal results will indicate the presence or absence of such esperanza. Otherwise, the reference value is considered "No growth". Lab Interpretation (test code = 88691-5) Abnormal [facility] [id number] 10:35:39* Test Item Value Reference Range Interpretation Comme nts Bacteria Spec Cult (test code = 6463-4) ACID-FAST BACILLUS AA Acid fast bacilliREFER TO [id number] Reference value: Non-sterile sites may be contaminated with esperanza that is considered normal or otherwise not clinically relevant. As appropriate, normal results will indicate the presence or absence of such esperanza. Otherwise, the reference value is considered "No growth".[facility] [id number] 09:36:58 * Test Item Value Reference Range Interpretation Comme nts Anaerobe Culture (test code = 635-3) No anaerobes isolated in 5 days TRACY (test code = TRACY) Reference value: N o anaerobes isolated [facility] [id number] 09:36:11* Test Item Value Reference Range Interpretation Comme nts Anaerobe Culture (test code = 635-3) No anaerobes isolated in 5 days TRACY (test code = TRACY) Reference value: N o [facility]obes [facility] [id number] 09:35:49* Test Item Value Reference Range Interpretation Comme nts Anaerobe Culture (test code = 635-3) No anaerobes isolated in 5 days TRACY (test code = TRACY) Reference value: N o anaerobes isolated [facility] [id number] 08:05:41* Test Item Value Reference Range Interpretation Comme nts Glucose POC (test code = 61313995) 107 mg/dL 74-106 H MD data coordinator Notifie d Lab Interpretation (test code = 99099-3) Abnormal [facility] [id number] 08:05:41* Test Item Value Reference Range Interpretation Comme nts Glucose POC (test code = 67353416) 107 mg/dL 74-106 H MD data coordinator Notifie d Lab Interpretation (test code = 68483-6) Abnormal [facility] [id number] 08:05:41* Test Item Value Reference Range Interpretation Comme nts Glucose POC (test code = 75984719) 107 mg/dL 74-106 H MD data coordinator Notifie d Lab Interpretation (test code = 80916-1) Abnormal [facility] [id number] 08:05:41* Test Item Value Reference Range Interpretation Comme nts Glucose POC (test code = 22765614) 107 mg/dL 74-106 H MD data coordinator Notifie d Lab Interpretation (test code = 49204-8) Abnormal [facility] docked [id number] 16:50:48* Test Item Value Reference Range Interpretation Comme nts Glucose POC (test code = 96748611) 107 mg/dL 74-106 H Lab Interpretation (test cod e = 57083-9) Abnormal [facility] [id number] 11:46:44* Test Item Value Reference Range Interpretation Comme nts Glucose POC (test code = 66216763) 89 mg/dL 74-106 Lab Interpretation (test cod e = 83999-5) Normal [facility] docked [id number] 08:25:07* Test Item Value Reference Range Interpretation Comme nts Glucose POC (test code = 35330784) 83 mg/dL 74-106 Lab Interpretation (test cod e = 91633-0) Normal [facility] [id number] 14:19:13* Test Item Value Reference Range Interpretation Comme nts Bacteria Spec Cult (test code = 6463-4) ACID-FAST BACILLUS AA 4+ Acid fast bacilli HHSHIV 1+2 Ab+HIV1 p24 Ag SerPl Ql [id number] 19:49:40* Test Item Value Reference Range Interpretation Comme nts HIV 1+2 Ab+HIV1 p24 Ag SerPl Ql IA (test code = 37618-5) NEGATIVE Negative HHSCoronavirus, CoVID-19, [id number] 16:40:22* Test Item Value Reference Range Interpretation Comments COVID-19 (SARS-COV-2) (test code = 95600-3) Not Detected Not Detected INTERPRETATION: No detectable levels of [...] of active infection with SARS-CoV-2 Coronavirus (COVID-19). TRACY (test code = TRACY) COMMENT: This miles real-time reverse transcriptase polymerase chain reaction (RT-PCR) test rapidly detects SARS-CoV-2 (COVID-19) virus from nasopharyngeal and nasal swab specimens. In accordance with the FDA's guidance document "Policy for Diagnostic Tests for Coronavirus Disease-2019 during the Public Health Emergency", this test was developed, and its performance characteristics were verified by the [facility] molecular diagnostics laboratory and is authorized for clinical diagnostic use. This laboratory is certified under the Clinical Laboratory Improvement Amendments (CLIA) as qualified to perform high complexity clinical laboratory testing. Lab Interpretation (test code = 62820-7) Normal [facility]Coronavirus, CoVID-19, [id number] 16:40:22* Test Item Value Reference Range Interpretation Comments COVID-19 (SARS-COV-2) (test code = 25161-8) Not Detected Not Detected INTERPRETATION: No detectable levels of [...] of active infection with SARS-CoV-2 Coronavirus (COVID-19). TRACY (test code = TRACY) COMMENT: This miles real-time reverse transcriptase polymerase chain reaction (RT-PCR) test rapidly detects SARS-CoV-2 (COVID-19) virus from nasopharyngeal and nasal swab specimens. In accordance with the FDA's guidance document "Policy for Diagnostic Tests for Coronavirus Disease-2019 during the Public Health Emergency", this test was developed, and its performance characteristics were verified by the [facility] molecular diagnostics laboratory and is authorized for clinical diagnostic use. This laboratory is certified under the Clinical Laboratory Improvement Amendments (CLIA) as qualified to perform high complexity clinical laboratory testing. Lab Interpretation (test code = 96403-2) [facility], [id number] 16:40:22* Test Item Value Reference Range Interpretation Comments COVID-19 (SARS-COV-2) (test code = 10388-1) Not Detected Not Detected INTERPRETATION: No detectable levels of [...] of active infection with SARS-CoV-2 Coronavirus (COVID-19). TRACY (test code = TRACY) COMMENT: This miles real-time reverse transcriptase polymerase chain reaction (RT-PCR) test rapidly detects SARS-CoV-2 (COVID-19) virus from nasopharyngeal and nasal swab specimens. In accordance with the FDA's guidance document "Policy for Diagnostic Tests for Coronavirus Disease-2019 during the Public Health Emergency", this test was developed, and its performance characteristics were verified by the [facility] molecular diagnostics laboratory and is authorized for clinical diagnostic use. This laboratory is certified under the Clinical Laboratory Improvement Amendments (CLIA) as qualified to perform high complexity clinical laboratory testing. Lab Interpretation (test code = 53398-5) Normal [facility], CoVID-19, [id number] 16:40:22* Test Item Value Reference Range Interpretation Comments COVID-19 (SARS-COV-2) (test code = 97590-2) Not Detected Not Detected INTERPRETATION: No detectable levels of [...] of active infection with SARS-CoV-2 Coronavirus (COVID-19). TRACY (test code = TRACY) COMMENT: This miles real-time reverse transcriptase polymerase chain reaction (RT-PCR) test rapidly detects SARS-CoV-2 (COVID-19) virus from nasopharyngeal and nasal swab specimens. In accordance with the FDA's guidance document "Policy for Diagnostic Tests for Coronavirus Disease-2019 during the Public Health Emergency", this test was developed, and its performance characteristics were verified by the [facility] molecular diagnostics laboratory and is authorized for clinical diagnostic use. This laboratory is certified under the Clinical Laboratory Improvement Amendments (CLIA) as qualified to perform high complexity clinical laboratory testing. Lab Interpretation (test code = 24144-8) Normal [facility] CenterYzauojWOBU-NcA-6 RNA Resp Ql YOKASTA+[id number] 16:40:22* Test Item Value Reference Range Interpretation Comme nts Hospitalized? (test code = 68789-0) No ICU? (test code = 71025-4) No Symptomatic as defined by CDC? (test code = 17237-9) No Employed in Healthcare? (test code = 64139-3) Unknown Resident in a congregate care setting (including nursing homes, residential care for people with intellectual and developmental disabilities, psychiatric treatment facilities, group homes, board and care homes, homeless nursing home, foster care or other): (test code = 74547-6) Unknown SARS-CoV-2 RNA Resp Ql YOKASTA+probe (test code = 62919-1) NOT DETECTED Not Detected INTERPRETATION: No detectable [...] its performance characteristics were verified by the [facility] molecular diagnostics laboratory and is authorized for clinical diagnostic use. This laboratory is certified under the Clinical Laboratory Improvement Amendments(CLIA) as qualified to perform high complexity clinical laboratory testing.HHSHIV 1+2 Ab+HIV1 p24 Ag SerPl Ql [id number] 17:45:02* Test Item Value Reference Range Interpretation Comme nts HIV 1+2 Ab+HIV1 p24 Ag SerPl Ql IA (test code = 28831-3) NEGATIVE Negative [id number] 23:16:25* Test Item Value Reference Range Interpretation Comme nts SALICYLATE (test code = 4756970239) <10 mg/L TRACY (test code = TRACY) Therapeutic Range: ? Analgesic and Antipyretic Use ? 20-100 mg/L ? ? Anti-Inflammatory Use ? 100-250 mg/L Toxic Range: ? Greater than 300 mg/L [facility] 23:16:15* Test Item Value Reference Range Interpretation Comme nts ALCOHOL (test code = 9090496776) <10 mg/dL TRACY (test code = TRACY) <10 Zmexxcxh22-661 Toxic>100 Depression of ORACLE SPECIALIST>400 Fatalities Reported [facility] AntonioACETAMINOPHEN2021-05-01 23:16:10* Test Item Value Reference Range Interpretation Comme nts ACETAMINOP (test code = 0874808331) <10.0 10.0-30.0 L TRACY (test code = TRACY) Toxic: Greater chela n 200 ug/mL @ 4 hour post ingestion or greater than 50 ug/mL @ 12 hour post ingestion Lab Interpretation (test code = 13641-9) Abnormal [facility] Antonio[facility] Function Panel (ALB, T.PRO, BILI T, BU/BC, ALT, AST, ALK PHOS)2021-01-30 23:14:14* Test Item Value Reference Range Interpretation Comme nts TOTAL BILI (test code = 4802611117) 0.8 mg/dL 0.1-1.1 BILI UNCON (test code = 1077614914) 0.6 mg/dL 0.1-1.1 BILI CONJ (test code = 0062306476) 0.0 mg/dL 0.0-0.3 T PROTEIN (test code = 0798061547) 7.5 g/dL 6.3-8.2 ALBUMIN (test code = 2788061616) 4.8 g/dL 3.5-5.0 ALK PHOS (test code = 6262557465) 63 U/L 34-122 ALTv (test code = 1742-6) 33 U/L 5-50 AST(SGOT) (test code = 9444867907) 36 U/L 13-40 Lab Interpretation (test cod e = 07200-3) Normal [facility] Antonio[facility] Metabolic [facility] (NA, K, CL, CO2, GLUCOSE, BUN, CREATININE, CA)2021-01-30 23:13:54* Test Item Value Reference Range Interpretation Comme nts NA (test code = 3691662867) 142 mmol/L 135-145 K (test code = 7995936627) 4.3 mmol/L 3.5-5.0 CL (test code = 7987272612) 105 mmol/L 98-108 CO2 TOTAL (test code = 2014379179) 25 mmol/L 23-31 AGAP (test code = 0420245242) 2-16 BUN (test code = 6614109549) 17 mg/dL 7-23 GLUCOSE (test code = 0764432177) 86 mg/dL 70-110 CREATININE (test code = 6289071317) 0.85 mg/dL 0.60-1.25 CALCIUM (test code = 6077429917) 9.9 mg/dL 8.6-10.6 eGFR (test code = 2088405052) mL/min/1.73m2 TRACY (test code = TRACY) Association [...] or urine or abnormalities in imaging tests). [facility] Antonio[facility]INE DRUG (IMMUNOASSAY) - COMPREHENSIVE DRUG [id number] 23:05:57* Test Item Value Reference Range Interpretation Comme nts AMPHET (test code = 0974208890) Presumptive Positive Negative A CHACORTA U (test code = 7635001845) Negative Negative BENZO U (test code = 6478474626) Presumptive Positive Negative A Cocaine Metabolite (test code = 0020139076) Negative Negative METHADONE (test code = 2859843351) Negative Negative OPIATES (test code = 6873280903) Presumptive Positive Negative A PCP (test code = 3563868036) Negative Negative THC (test code = 8004330101) Presumptive Positive Negative A TRACY (test code [...] legal testing). Lab Interpretation (test code = 77088-2) Abnormal [facility] AntonioCOVID-[facility] (ID NOW RAPID TESTING)2021-01-30 22:34:55* Test Item Value Reference Range Interpretation Comme [facility] SARS-CoV-2 Rapid ID NOW (test code = 10594-0) Not Detected Not Detected TRACY (test code = TRACY) ID NOW COVID-19 As say is an isothermal nucleic acid amplification test intended for the qualitative detection of nucleic acid from SARS-CoV-2 viral RNA in nasopharyngeal ([employer]) specimens. It is used under Emergency Use [...] clinically indicated. Lab Interpretation (test code = 57616-8) Normal [facility] Antonio[facility]inalysis2021-05-01 22:30:19* Test Item Value Reference Range Interpretation Comme nts APPEARANCE (test code = 6850487793) Clear Clear COLOR (test code = 8175210564) Yellow Yellow PH (test code = 5619042046) 4.8-8.0 SP GRAVITY (test code = 8392296513) 1.003-1.030 GLU U QUAL (test code = 1554647245) Normal Normal BLOOD (test code = 0611506290) Negative Negative KETONES (test code = 6432172085) Negative Negative PROTEIN (test code = 2887-8) Negative Negative UROBILIN (test code = 0956386205) 2.0 mg/dL Normal A BILIRUBIN (test code = 6092051388) Negative Negative NITRITE (test code = 1657668957) Negative Negative LEUK DIONE (test code = 5410063480) Negative Negative RBC/HPF (test code = 7825863287) See_Comment [Automated messa ge] The system which generated this result transmitted reference range: 0 - 3 HPF. The reference range was not used to interpret this result as normal/abnormal. WBC/HPF (test code = 1536843252) <1 See_Comment [Automated messa ge] The system which generated this result transmitted reference range: 0 - 5 HPF. The reference range was not used to interpret this result as normal/abnormal. BACTERIA (test code = 1934262613) Negative Negative SQ EPITH (test code = 3879590237) <1 HPF Lab Interpretation (test code = 16215-8) Abnormal [facility] AntonioCB with Mqscyackwblj8810-60-31 22:19:35* Test Item Value Reference Range Interpretation [...] 34.6 g/dL 31.2-35.0 RDW-SD (test code = 44227-1) 42.8 fL 38.5-51.6 RDW-CV (test code = 788-0) 13.3 % 12.1-15.4 PLT (test code = 777-3) See_Comment H [Automated messa ge] The system which generated this result transmitted reference range: 150 - 328 10*3/?L. The reference range was not used to interpret this result as normal/abnormal. MPV (test code = 25049-4) 9.9 fL 9.8-13.0 NRBC/100 WBC (test code = 2881446638) See_Comment [Automated [employer]age] The system which generated this result transmitted reference range: 0.0 - 10.0 /100 WBCs. The reference range was not used to interpret this result as normal/abnormal. NRBC x10^3 (test code = 4959141676) <0.01 See_Comment [Automated messa ge] The system which generated this result transmitted reference range: 10*3/?L. The reference range was not used to interpret this result as normal/abnormal. GRAN MAT (NEUT) % (test code = 770-8) 79.2 % IMM GRAN % (test code = 1143598758) 0.50 % LYMPH % (test code = 736-9) 14.8 % MONO % (test code = 5905-5) 4.9 % EOS % (test code = 713-8) 0.2 % BASO % (test code = 706-2) 0.4 % GRAN MAT x10^3(ANC) (test code = 4011585165) 9.77 10*3/uL 1.99-6.95 H IMM GRAN x10^3 (test code = 2432557528) 0.06 10*3/uL 0.00-0.06 LYMPH x10^3 (test code = 731-0) 1.82 10*3/uL 1.09-3.23 MONO x10^3 (test code = 742-7) 0.60 10*3/uL 0.36-1.02 EOS x10^3 (test code = 711-2) 0.03 10*3/uL 0.06-0.53 L BASO x10^3 (test code = 704-7) 0.05 10*3/uL 0.01-0.09 Lab Interpretation (test code = 94875-7) Abnormal [facility] [id number] 20:48:00* Test Item Value Reference Range Interpretation Comme nts COVID 19 INHOUSE AG (test co de = [id number]) NEGATIVE URINALYSIS [id number] 16:11:00* Test Item Value Reference Range Interpretation Comme nts UA COLOR (test code = COLU) Light-Yellow YELLOW UA APPEARANCE (test code = APPU) CLEAR CLEAR UA GLUCOSE DIPSTICK (test code = DGLUU) NEGATIVE mg/dL NEGATIVE UA BILIRUBIN DIPSTICK (test code = BILU) NEGATIVE mg/dL NEGATIVE UA KETONE DIPSTICK (test code = KETU) NEGATIVE mg/dL NEGATIVE UA SPECIFIC GRAVITY (test code = SGU) 1.014 1.001-1.035 UA BLOOD DIPSTICK (test code = DAVON) Negative mg/dL NEGATIVE UA PH DIPSTICK (test code = ADRIANO) 7.0 5.0-8.0 UA PROTEIN DIPSTICK (test code = PROU) NEGATIVE mg/dL NEGATIVE UA UROBILINIOGEN DIPSTICK (test code = URO) Normal mg/dL NEGATIVE UA NITRITE DIPSTICK (test code = CLARISSE) NEGATIVE NEGATIVE UA LEUKOCYTE ESTERASE W REFLEX (test code = LEUUR) NEGATIVE Matt/uL NEGATIVE UA WBC (test code = WBCU) 0-5 per HPF 0-5 UA RBC (test code = RBCU) 0-3 #/HPF 0-5 UA EPITHELIAL CELLS (test code = EPIU) Few (2-5/hpf) per HPF FEW UA BACTERIA (test code = BACU) FEW #/HPF NONE A UA MUCUS (test code = MUCU) FEW #/LPF FEW Urine Source? Clean CatchDRUGS OF ABUSE SCREEN [id number] 16:11:00* Test Item Value Reference Range Interpretation Comme nts URN COCAINE (test code = COCAURN) NEGATIVE See_Comment [Automated messa ge] The system which generated this result transmitted reference range: <300 ng/mL. The reference range was not used to interpret this result as normal/abnormal. URN CANNABINOIDS (test code = CANNABURN) NEGATIVE See_Comment [Automated mes hay] The system which generated this result transmitted reference range: <50 ng/mL. The reference range was not used to interpret this result as normal/abnormal. URN AMPHETAMINE (test code = AMPHETURN) NEGATIVE See_Comment [Automated mes hay] The system which generated this result transmitted reference range: <1000 ng/mL. The reference range was not used to interpret this result as normal/abnormal. URN BARBITURATE (test code = BARBITURN) NEGATIVE See_Comment [Automated mes hay] The system which generated this result transmitted reference range: <200 ng/mL. The reference range was not used to interpret this result as normal/abnormal. URN BENZODIAZEPINE (test code = BENZOURN) POSITIVE See_Comment [Automated mess age] The system which generated this result transmitted reference range: <200 ng/mL. The reference range was not used to interpret this result as normal/abnormal. URN OPIATES (test code = OPIATURN) NEGATIVE See_Comment [Automated messa ge] The system which generated this result transmitted reference range: <300 ng/mL. The reference range was not used to interpret this result as normal/abnormal. URN PHENCYCLIDINE (PCP) (test code = PHENCURN) NEGATIVE See_Comment [Automate d message] The system which generated this result transmitted reference range: <25 ng/mL. The reference range was not used to interpret this result as normal/abnormal. URN METHADONE (test code = METHAURN) NEGATIVE See_Comment [Automated messa ge] The system which generated this result transmitted reference range: <300 ng/mL. The reference range was not used to interpret this result as normal/abnormal. Urine Source? Clean CatchURINALYSIS [id number] 15:45:00* Test Item Value Reference Range Interpretation Comme nts UA COLOR (test code = COLU) Light-Yellow YELLOW UA APPEARANCE (test code = APPU) CLEAR CLEAR UA GLUCOSE DIPSTICK (test code = DGLUU) NEGATIVE mg/dL NEGATIVE UA BILIRUBIN DIPSTICK (test code = BILU) NEGATIVE mg/dL NEGATIVE UA KETONE DIPSTICK (test code = KETU) NEGATIVE mg/dL NEGATIVE UA SPECIFIC GRAVITY (test code = SGU) 1.014 1.001-1.035 UA BLOOD DIPSTICK (test code = DAVON) Negative mg/dL NEGATIVE UA PH DIPSTICK (test code = ADRIANO) 7.0 5.0-8.0 UA PROTEIN DIPSTICK (test code = PROU) NEGATIVE mg/dL NEGATIVE UA UROBILINIOGEN DIPSTICK (test code = URO) Normal mg/dL NEGATIVE UA NITRITE DIPSTICK (test code = CLARISSE) NEGATIVE NEGATIVE UA LEUKOCYTE ESTERASE W REFLEX (test code = LEUUR) NEGATIVE Matt/uL NEGATIVE UA WBC (test code = WBCU) 0-5 per HPF 0-5 UA RBC (test code = RBCU) 0-3 #/HPF 0-5 UA EPITHELIAL CELLS (test code = EPIU) Few (2-5/hpf) per HPF FEW UA BACTERIA (test code = BACU) FEW #/HPF NONE A UA MUCUS (test code = MUCU) FEW #/LPF FEW Urine Source? Clean CatchDRUGS OF ABUSE SCREEN [id number] 15:45:00* Test Item Value Reference Range Interpretation Comme nts URN COCAINE (test code = COCAURN) NEGATIVE See_Comment [Automated [employer]] The system which generated this result transmitted reference range: <300 ng/mL. The reference range was not used to interpret this result as normal/abnormal. URN CANNABINOIDS (test code = CANNABURN) NEGATIVE See_Comment [Automated [employer] hay] The system which generated this result transmitted reference range: <50 ng/mL. The reference range was not used to interpret this result as normal/abnormal. URN AMPHETAMINE (test code = AMPHETURN) NEGATIVE See_Comment [Automated [employer] hay] The system which generated this result transmitted reference range: <1000 ng/mL. The reference range was not used to interpret this result as normal/abnormal. URN BARBITURATE (test code = BARBITURN) NEGATIVE See_Comment [Automated mes hay] The system which generated this result transmitted reference range: <200 ng/mL. The reference range was not used to interpret this result as normal/abnormal. URN BENZODIAZEPINE (test code = BENZOURN) POSITIVE See_Comment [Automated mess age] The system which generated this result transmitted reference range: <200 ng/mL. The reference range was not used to interpret this result as normal/abnormal. URN OPIATES (test code = OPIATURN) See_Comment [Automated messa ge] The system which generated this result transmitted reference range: <300 ng/mL. The reference range was not used to interpret this result as normal/abnormal. URN PHENCYCLIDINE (PCP) (test code = PHENCURN) NEGATIVE See_Comment [Automate d message] The system which generated this result transmitted reference range: <25 ng/mL. The reference range was not used to interpret this result as normal/abnormal. URN METHADONE (test code = METHAURN) NEGATIVE See_Comment [Automated messa ge] The system which generated this result transmitted reference range: <300 ng/mL. The reference range was not used to interpret this result as normal/abnormal. Urine Source? Clean CatchURINALYSIS [id number] 14:21:00* Test Item Value Reference Range Interpretation Comme nts UA COLOR (test code = COLU) Light-Yellow YELLOW UA APPEARANCE (test code = APPU) CLEAR CLEAR UA GLUCOSE DIPSTICK (test code = DGLUU) NEGATIVE mg/dL NEGATIVE UA BILIRUBIN DIPSTICK (test code = BILU) NEGATIVE mg/dL NEGATIVE UA KETONE DIPSTICK (test code = KETU) NEGATIVE mg/dL NEGATIVE UA SPECIFIC GRAVITY (test code = SGU) 1.014 1.001-1.035 UA BLOOD DIPSTICK (test code = DAVON) Negative mg/dL NEGATIVE UA PH DIPSTICK (test code = ADRIANO) 7.0 5.0-8.0 UA PROTEIN DIPSTICK (test code = PROU) NEGATIVE mg/dL NEGATIVE UA UROBILINIOGEN DIPSTICK (test code = URO) Normal mg/dL NEGATIVE UA NITRITE DIPSTICK (test code = CLARISSE) NEGATIVE NEGATIVE UA LEUKOCYTE ESTERASE W REFLEX (test code = LEUUR) NEGATIVE Matt/uL NEGATIVE UA WBC (test code = WBCU) 0-5 per HPF 0-5 UA RBC (test code = RBCU) 0-3 #/HPF 0-5 UA EPITHELIAL CELLS (test code = EPIU) Few (2-5/hpf) per HPF FEW UA BACTERIA (test code = BACU) FEW #/HPF NONE A UA MUCUS (test code = MUCU) FEW #/LPF FEW Urine Source? Clean CatchDRUGS OF ABUSE SCREEN [id number] 14:21:00* Test Item Value Reference Range Interpretation Comme nts URN COCAINE (test code = COCAURN) See_Comment [Automated messa ge] The system which generated this result transmitted reference range: <300 ng/mL. The reference range was not used to interpret this result as normal/abnormal. URN CANNABINOIDS (test code = CANNABURN) See_Comment [Automated mes hay] The system which generated this result transmitted reference range: <50 ng/mL. The reference range was not used to interpret this result as normal/abnormal. URN AMPHETAMINE (test code = AMPHETURN) See_Comment [Automated messa ge] The system which generated this result transmitted reference range: <1000 ng/mL. The reference range was not used to interpret this result as normal/abnormal. URN BARBITURATE (test code = BARBITURN) See_Comment [Automated messa ge] The system which generated this result transmitted reference range: <200 ng/mL. The reference range was not used to interpret this result as normal/abnormal. URN BENZODIAZEPINE (test code = BENZOURN) See_Comment [Automated mess age] The system which generated this result transmitted reference range: <200 ng/mL. The reference range was not used to interpret this result as normal/abnormal. URN OPIATES (test code = OPIATURN) See_Comment [Automated messa ge] The system which generated this result transmitted reference range: <300 ng/mL. The reference range was not used to interpret this result as normal/abnormal. URN PHENCYCLIDINE (PCP) (test code = PHENCURN) See_Comment [Automate d message] The system which generated this result transmitted reference range: <25 ng/mL. The reference range was not used to interpret this result as normal/abnormal. URN METHADONE (test code = METHAURN) See_Comment [Automated messa ge] The system which generated this result transmitted reference range: <300 ng/mL. The reference range was not used to interpret this result as normal/abnormal. Urine Source? Clean CatchURINALYSIS [id number] 14:18:00* Test Item Value Reference Range Interpretation Comme nts UA COLOR (test code = COLU) Light-Yellow YELLOW UA APPEARANCE (test code = APPU) CLEAR CLEAR UA GLUCOSE DIPSTICK (test code = DGLUU) NEGATIVE mg/dL NEGATIVE UA BILIRUBIN DIPSTICK (test code = BILU) NEGATIVE mg/dL NEGATIVE UA KETONE DIPSTICK (test cod e = KETU) NEGATIVE mg/dL NEGATIVE UA SPECIFIC GRAVITY (test code = SGU) 1.014 1.001-1.035 UA BLOOD DIPSTICK (test code = DAVON) Negative mg/dL NEGATIVE UA PH DIPSTICK (test code = ADRIANO) 7.0 5.0-8.0 UA PROTEIN DIPSTICK (test code = PROU) NEGATIVE mg/dL NEGATIVE UA UROBILINIOGEN DIPSTICK (test code = URO) Normal mg/dL NEGATIVE UA NITRITE DIPSTICK (test code = CLARISSE) NEGATIVE NEGATIVE UA LEUKOCYTE ESTERASE W REFLEX (test code = LEUUR) NEGATIVE Matt/uL NEGATIVE UA WBC (test code = WBCU) per HPF 0-5 UA RBC (test code = RBCU) per HPF 0-5 UA EPITHELIAL CELLS (test code = EPIU) per HPF Few UA BACTERIA (test code = BACU) per HPF NONE Urine Source? Clean CatchDRUGS OF ABUSE SCREEN [id number] 14:18:00* Test Item Value Reference Range Interpretation Comme nts URN COCAINE (test code = COCAURN) See_Comment [Automated [employer] ge] The system which generated this result transmitted reference range: <300 ng/mL. The reference range was not used to interpret this result as normal/abnormal. URN CANNABINOIDS (test code = CANNABURN) See_Comment [Automated [employer] hay] The system which generated this result transmitted reference range: <50 ng/mL. The reference range was not used to interpret this result as normal/abnormal. URN AMPHETAMINE (test code = AMPHETURN) See_Comment [Automated [employer] ge] The system which generated this result transmitted reference range: <1000 ng/mL. The reference range was not used to interpret this result as normal/abnormal. URN BARBITURATE (test code = BARBITURN) See_Comment [Automated messa ge] The system which generated this result transmitted reference range: <200 ng/mL. The reference range was not used to interpret this result as normal/abnormal. URN BENZODIAZEPINE (test code = BENZOURN) See_Comment [Automated mess age] The system which generated this result transmitted reference range: <200 ng/mL. The reference range was not used to interpret this result as normal/abnormal. URN OPIATES (test code = OPIATURN) See_Comment [Automated messa ge] The system which generated this result transmitted reference range: <300 ng/mL. The reference range was not used to interpret this result as normal/abnormal. URN PHENCYCLIDINE (PCP) (test code = PHENCURN) See_Comment [Automate d message] The system which generated this result transmitted reference range: <25 ng/mL. The reference range was not used to interpret this result as normal/abnormal. URN METHADONE (test code = METHAURN) See_Comment [Automated messa ge] The system which generated this result transmitted reference range: <300 ng/mL. The reference range was not used to interpret this result as normal/abnormal. Urine Source? Clean CatchBASIC METABOLIC [id number] 12:13:00* Test Item Value Reference Range Interpretation Comme nts SODIUM (test code = NA) 139 mmol/L 136-145 RESULT VERIFIED BY REPEAT ANALYSIS POTASSIUM (test code = K) 4.2 mmol/L 3.5-5.1 N CHLORIDE (test code = CL) 104.0 mmol/L 98-107 N CARBON DIOXIDE (test code = CO2) 30.0 mmol/L 21-32 N ANION GAP (test code = GAP) 9.2 10-20 L GLUCOSE (test code = GLU) 74 mg/dL 74-106 N BLOOD UREA NITROGEN (test code = BUN) 17 mg/dL 7-18 N GLOMERULAR FILTRATION RATE (test code = GFR) > 60 mL/min See_Comment Estimated GFR by using Modified MDRD formula.Chronic kidney disease is defined as either kidney damageor GFR <60 mL/min/1.73 m2 for >3 months. [Automated message] The system which generated this result transmitted reference range: >=60. The reference range was not used to interpret this result as normal/abnormal. CREATININE (test code = CREAT) 1.00 mg/dL 0.7-1.3 N BUN/CREATININE RATIO (test code = BUN/CREA) 17.3 10-20 N CALCIUM (test code = CA) 9.9 mg/dL 8.5-10.1 N HEPATIC FUNCTION [id number] 12:13:00* Test Item Value Reference Range Interpretation Comme nts TOTAL PROTEIN (test code = PROT) 8.2 gram/dL 6.4-8.2 N ALBUMIN (test code = ALB) 4.7 g/dL 3.4-5.0 N GLOBULIN (test code = GLOB) 3.5 gram/dL 2.7-4.2 N ALBUMIN/GLOBULIN RATIO (test code = A/G) 1.3 0.75-1.50 N BILIRUBIN TOTAL (test code = BILT) 0.80 mg/dL 0.0-1.0 N BILIRUBIN DIRECT (test code = BILD) 0.20 mg/dL 0.0-0.20 N SGOT/AST (test code = AST) 50 IUnit/L 15-37 H SGPT/ALT (test code = ALT) 63 IUnit/L 12-78 N ALKALINE PHOSPHATASE TOTAL (test code = ALKP) 73 IUnit/L 45-117 N Note change in reference range due to change in reagent. [id number] 12:13:00* Test Item Value Reference Range Interpretation Comme nts ACETAMINOPHEN (test code = ACET) < 10 mcg/mL 10-30 L A RANGE OF 10-30 mcg/mL IS A THERAPEUTIC RANGE. TOXIC CONCENTRATIONS: >150 mcg/mL AT 4 HOURS AFTER INGESTION >= 50 mcg/mL AT 12 HOURS AFTER INGESTION [id number] 12:13:00* Test Item Value Reference Range Interpretation Comme nts SALICYLATE (test code = RENALDO) < 3.0 mg/dL 2.8-20.0 N [id number] 12:13:00* Test Item Value Reference Range Interpretation Comme nts ALCOHOL (test code = ALC) < 3 mg/dL 0.0-3.0 N -INTERPRE TIVE DATA NOTE: POSITIVE SCREENING RESULTS SHOULD BE CONSIDERED PRESUMPTIVE.WHEN COLLECTED FOR MEDICAL PURPOSES ONLY. SPECIMEN WILL NOTBE COLLECTED BY CHAIN OF CUSTODY.IF A CONFIRMATION OF POSITIVE RESULTS IS DESIRED, ACONFIRMATION TEST MUST BE REQUESTED BY THE PHYSICIAN AT ANADDITIONAL CHARGE TO THE PATIENT. CBC W/O [id number] 11:49:00* Test Item Value Reference Range Interpretation Comme nts WHITE BLOOD CELL (test code = WBC) 8.8 K/mm3 4.5-12.5 N RED BLOOD CELL (test code = RBC) 4.92 mill/mm3 4.0-5.8 N HEMOGLOBIN (test code = HGB) 14.8 gram/dL 13.0-17.5 N HEMATOCRIT (test code = HCT) 45.7 % 42.0-52.0 N MEAN CELL VOLUME (test code = MCV) 92.9 fL 80-98 N MEAN CELL HGB (test code = MCH) 30.1 picogram 27.0-33.0 N MEAN CELL HGB CONCETRATION (test code = MCHC) 32.4 gram/dL 33.0-36.0 L RED CELL DISTRIBUTION WIDTH (test code = RDW) 14.3 % 11.6-16.2 N PLATELET COUNT (test code = PLT) 300 K/mm3 150-450 N MEAN PLATELET VOLUME (test c ode = MPV) 9.7 fL 6.7-11.0 N COVID 19 INHOUSE [id number] 00:12:00* Test Item Value Reference Range Interpretation Comme nts COVID 19 INHOUSE AG (test co de = [id number]) NEGATIVE URINALYSIS [id number] 20:58:00* Test Item Value Reference Range Interpretation Comme nts UA COLOR (test code = COLU) Light-Yellow YELLOW UA APPEARANCE (test code = APPU) CLEAR CLEAR UA GLUCOSE DIPSTICK (test code = DGLUU) NEGATIVE mg/dL NEGATIVE UA BILIRUBIN DIPSTICK (test code = BILU) NEGATIVE mg/dL NEGATIVE UA KETONE DIPSTICK (test cod e = KETU) NEGATIVE mg/dL NEGATIVE UA SPECIFIC GRAVITY (test code = SGU) 1.014 1.001-1.035 UA BLOOD DIPSTICK (test code = DAVON) Negative mg/dL NEGATIVE UA PH DIPSTICK (test code = ADRIANO) 6.5 5.0-8.0 UA PROTEIN DIPSTICK (test code = PROU) NEGATIVE mg/dL NEGATIVE UA UROBILINIOGEN DIPSTICK (test code = URO) Normal mg/dL NEGATIVE UA NITRITE DIPSTICK (test code = CLARISSE) NEGATIVE NEGATIVE UA LEUKOCYTE ESTERASE W REFLEX (test code = LEUUR) NEGATIVE Matt/uL NEGATIVE UA WBC (test code = WBCU) 0-5 per HPF 0-5 UA RBC (test code = RBCU) 0-2 #/HPF 0-5 UA EPITHELIAL CELLS (test code = EPIU) FEW per HPF FEW UA BACTERIA (test code = BACU) NONE SEEN #/HPF NONE UA MUCUS (test code = MUCU) FEW #/LPF FEW Urine Source? Clean CatchDRUGS OF ABUSE SCREEN [id number] 20:58:00* Test Item Value Reference Range Interpretation Comme nts URN COCAINE (test code = COCAURN) NEGATIVE See_Comment [Automated messa ge] The system which generated this result transmitted reference range: <300 ng/mL. The reference range was not used to interpret this result as normal/abnormal. URN CANNABINOIDS (test code = CANNABURN) NEGATIVE See_Comment [Automated mes hay] The system which generated this result transmitted reference range: <50 ng/mL. The reference range was not used to interpret this result as normal/abnormal. URN AMPHETAMINE (test code = AMPHETURN) NEGATIVE See_Comment [Automated [employer] hay] The system which generated this result transmitted reference range: <1000 ng/mL. The reference range was not used to interpret this result as normal/abnormal. URN BARBITURATE (test code = BARBITURN) NEGATIVE See_Comment [Automated [employer] hay] The system which generated this result transmitted reference range: <200 ng/mL. The reference range was not used to interpret this result as normal/abnormal. URN BENZODIAZEPINE (test code = BENZOURN) POSITIVE See_Comment [Automated mess age] The system which generated this result transmitted reference range: <200 ng/mL. The reference range was not used to interpret this result as normal/abnormal. URN OPIATES (test code = OPIATURN) NEGATIVE See_Comment [Automated messa ge] The system which generated this result transmitted reference range: <300 ng/mL. The reference range was not used to interpret this result as normal/abnormal. URN PHENCYCLIDINE (PCP) (test code = PHENCURN) NEGATIVE See_Comment [Automate d message] The system which generated this result transmitted reference range: <25 ng/mL. The reference range was not used to interpret this result as normal/abnormal. URN METHADONE (test code = METHAURN) NEGATIVE See_Comment [Automated messa ge] The system which generated this result transmitted reference range: <300 ng/mL. The reference range was not used to interpret this result as normal/abnormal. Urine Source? Clean CatchBASIC METABOLIC [id number] 20:58:00* Test Item Value Reference Range Interpretation Comme nts SODIUM (test code = NA) 134 mmol/L 136-145 L POTASSIUM (test code = K) 4.2 mmol/L 3.5-5.1 N CHLORIDE (test code = CL) 103.0 mmol/L 98-107 N CARBON DIOXIDE (test code = CO2) 23.0 mmol/L 21-32 N ANION GAP (test code = GAP) 12.2 10-20 N GLUCOSE (test code = GLU) 101 mg/dL 74-106 N BLOOD UREA NITROGEN (test code = BUN) 16 mg/dL 7-18 N GLOMERULAR FILTRATION RATE (test code = GFR) > 60 mL/min See_Comment Estimated GFR by using Modified MDRD formula.Chronic kidney disease is defined as either kidney damageor GFR <60 mL/min/1.73 m2 for >3 months. [Automated message] The system which generated this result transmitted reference range: >=60. The reference range was not used to interpret this result as normal/abnormal. CREATININE (test code = CREAT) 0.80 mg/dL 0.7-1.3 N BUN/CREATININE RATIO (test code = BUN/CREA) 19.3 10-20 N CALCIUM (test code = CA) 8.8 mg/dL 8.5-10.1 N HEPATIC FUNCTION [id number] 20:58:00* Test Item Value Reference Range Interpretation Comme nts TOTAL PROTEIN (test code = PROT) 7.0 gram/dL 6.4-8.2 N ALBUMIN (test code = ALB) 4.0 g/dL 3.4-5.0 N GLOBULIN (test code = GLOB) 3.0 gram/dL 2.7-4.2 N ALBUMIN/GLOBULIN RATIO (test code = A/G) 1.3 0.75-1.50 N BILIRUBIN TOTAL (test code = BILT) 0.40 mg/dL 0.0-1.0 N BILIRUBIN DIRECT (test code = BILD) < 0.10 mg/dL 0.0-0.20 N SGOT/AST (test code = AST) 32 IUnit/L 15-37 N SGPT/ALT (test code = ALT) 47 IUnit/L 12-78 N ALKALINE PHOSPHATASE TOTAL (test code = ALKP) 65 IUnit/L 45-117 N Note change in reference range due to change in reagent. [id number] 20:58:00* Test Item Value Reference Range Interpretation Comme nts TROPONIN-I (test code = TROPI) < 0.006 ng/mL 0-0.045 N [id number] 20:58:00* Test Item Value Reference Range Interpretation Comme nts ACETAMINOPHEN (test code = ACET) < 10 mcg/mL 10-30 L A RANGE OF 10-30 mcg/mL IS A THERAPEUTIC RANGE. TOXIC CONCENTRATIONS: >150 mcg/mL AT 4 HOURS AFTER INGESTION >= 50 mcg/mL AT 12 HOURS AFTER INGESTION [id number] 20:58:00* Test Item Value Reference Range Interpretation Comme nts SALICYLATE (test code = RENALDO) < 3.0 mg/dL 2.8-20.0 N [id number] 20:58:00* Test Item Value Reference Range Interpretation Comme nts ALCOHOL (test code = ALC) 25 mg/dL 0.0-3.0 H -INTERPRE TIVE DATA NOTE: POSITIVE SCREENING RESULTS SHOULD BE CONSIDERED PRESUMPTIVE.WHEN COLLECTED FOR MEDICAL PURPOSES ONLY. SPECIMEN WILL NOTBE COLLECTED BY CHAIN OF CUSTODY.IF A CONFIRMATION OF POSITIVE RESULTS IS DESIRED, ACONFIRMATION TEST MUST BE REQUESTED BY THE PHYSICIAN AT ANADDITIONAL CHARGE TO THE PATIENT. - CT HEAD/BRAIN W/O [id number] 20:52:00 [facility]Name: TEJ GUADALUPE : 1985 Sex: M Name: TEJ GUADALUPE [facility] : 1985 Age/S: 35 / M [address] Unit #: [id number] Loc: [place] [address] Phys: Shaggy Morrow MD Acct: [id number] Dis Date: Status: PRE ER PHONE #: [phone] Exam Date: 12/13/20202017 FAX #: [phone] Reason: CONFUSION EXAMS: CPT CODE: [id number] CT HEAD/BRAIN W/O CONT 53730 HISTORY: CONFUSION TECHNIQUE: Noncontrast 2.5 mm axial [...] Gauthier MD CC: Shaggy Morrow MD Technologist:Camilo Staley RT(R)(CT) CTDI: DLP: Trnscb Date/Time: 12/13/2020 (2051) JeannetteRR31 Orig Print D/T: S: 12/13/2020 (2054) PAGE 1 Signed ReportURINALYSIS [id number] 20:39:00* Test Item Value Reference Range Interpretation Comme nts UA COLOR (test code = COLU) Light-Yellow YELLOW UA APPEARANCE (test code = APPU) CLEAR CLEAR UA GLUCOSE DIPSTICK (test code = DGLUU) NEGATIVE mg/dL NEGATIVE UA BILIRUBIN DIPSTICK (test code = BILU) NEGATIVE mg/dL NEGATIVE UA KETONE DIPSTICK (test cod e = KETU) NEGATIVE mg/dL NEGATIVE UA SPECIFIC GRAVITY (test code = SGU) 1.014 1.001-1.035 UA BLOOD DIPSTICK (test code = DAVON) Negative mg/dL NEGATIVE UA PH DIPSTICK (test code = ADRIANO) 6.5 5.0-8.0 UA PROTEIN DIPSTICK (test code = PROU) NEGATIVE mg/dL NEGATIVE UA UROBILINIOGEN DIPSTICK (test code = URO) Normal mg/dL NEGATIVE UA NITRITE DIPSTICK (test code = CLARISSE) NEGATIVE NEGATIVE UA LEUKOCYTE ESTERASE W REFLEX (test code = LEUUR) NEGATIVE Matt/uL NEGATIVE UA WBC (test code = WBCU) 0-5 per HPF 0-5 UA RBC (test code = RBCU) 0-2 #/HPF 0-5 UA EPITHELIAL CELLS (test code = EPIU) FEW per HPF FEW UA BACTERIA (test code = BACU) NONE SEEN #/HPF NONE UA MUCUS (test code = MUCU) FEW #/LPF FEW Urine Source? Clean CatchDRUGS OF ABUSE SCREEN [id number] 20:39:00* Test Item Value Reference Range Interpretation Comme nts URN COCAINE (test code = COCAURN) See_Comment [Automated [employer] ge] The system which generated this result transmitted reference range: <300 ng/mL. The reference range was not used to interpret this result as normal/abnormal. URN CANNABINOIDS (test code = CANNABURN) See_Comment [Automated [employer] hay] The system which generated this result transmitted reference range: <50 ng/mL. The reference range was not used to interpret this result as normal/abnormal. URN AMPHETAMINE (test code = AMPHETURN) See_Comment [Automated [employer] ge] The system which generated this result transmitted reference range: <1000 ng/mL. The reference range was not used to interpret this result as normal/abnormal. URN BARBITURATE (test code = BARBITURN) See_Comment [Automated messa ge] The system which generated this result transmitted reference range: <200 ng/mL. The reference range was not used to interpret this result as normal/abnormal. URN BENZODIAZEPINE (test code = BENZOURN) See_Comment [Automated mess age] The system which generated this result transmitted reference range: <200 ng/mL. The reference range was not used to interpret this result as normal/abnormal. URN OPIATES (test code = OPIATURN) See_Comment [Automated messa ge] The system which generated this result transmitted reference range: <300 ng/mL. The reference range was not used to interpret this result as normal/abnormal. URN PHENCYCLIDINE (PCP) (test code = PHENCURN) See_Comment [Automate d message] The system which generated this result transmitted reference range: <25 ng/mL. The reference range was not used to interpret this result as normal/abnormal. URN METHADONE (test code = METHAURN) See_Comment [Automated messa ge] The system which generated this result transmitted reference range: <300 ng/mL. The reference range was not used to interpret this result as normal/abnormal. Urine Source? Clean CatchURINALYSIS [id number] 20:29:00* Test Item Value Reference Range Interpretation Comme nts UA COLOR (test code = COLU) Light-Yellow YELLOW UA APPEARANCE (test code = APPU) CLEAR CLEAR UA GLUCOSE DIPSTICK (test code = DGLUU) NEGATIVE mg/dL NEGATIVE UA BILIRUBIN DIPSTICK (test code = BILU) NEGATIVE mg/dL NEGATIVE UA KETONE DIPSTICK (test cod e = KETU) NEGATIVE mg/dL NEGATIVE UA SPECIFIC GRAVITY (test code = SGU) 1.014 1.001-1.035 UA BLOOD DIPSTICK (test code = DAVON) Negative mg/dL NEGATIVE UA PH DIPSTICK (test code = ADRIANO) 6.5 5.0-8.0 UA PROTEIN DIPSTICK (test code = PROU) NEGATIVE mg/dL NEGATIVE UA UROBILINIOGEN DIPSTICK (test code = URO) Normal mg/dL NEGATIVE UA NITRITE DIPSTICK (test code = CLARISSE) NEGATIVE NEGATIVE UA LEUKOCYTE ESTERASE W REFLEX (test code = LEUUR) NEGATIVE Matt/uL NEGATIVE UA WBC (test code = WBCU) per HPF 0-5 UA RBC (test code = RBCU) per HPF 0-5 UA EPITHELIAL CELLS (test code = EPIU) per HPF Few UA BACTERIA (test code = BACU) per HPF NONE Urine Source? Clean CatchDRUGS OF ABUSE SCREEN [id number] 20:29:00* Test Item Value Reference Range Interpretation Comme nts URN COCAINE (test code = COCAURN) See_Comment [Automated messa ge] The system which generated this result transmitted reference range: <300 ng/mL. The reference range was not used to interpret this result as normal/abnormal. URN CANNABINOIDS (test code = CANNABURN) See_Comment [Automated mes hay] The system which generated this result transmitted reference range: <50 ng/mL. The reference range was not used to interpret this result as normal/abnormal. URN AMPHETAMINE (test code = AMPHETURN) See_Comment [Automated messa ge] The system which generated this result transmitted reference range: <1000 ng/mL. The reference range was not used to interpret this result as normal/abnormal. URN BARBITURATE (test code = BARBITURN) See_Comment [Automated messa ge] The system which generated this result transmitted reference range: <200 ng/mL. The reference range was not used to interpret this result as normal/abnormal. URN BENZODIAZEPINE (test code = BENZOURN) See_Comment [Automated mess age] The system which generated this result transmitted reference range: <200 ng/mL. The reference range was not used to interpret this result as normal/abnormal. URN OPIATES (test code = OPIATURN) See_Comment [Automated messa ge] The system which generated this result transmitted reference range: <300 ng/mL. The reference range was not used to interpret this result as normal/abnormal. URN PHENCYCLIDINE (PCP) (test code = PHENCURN) See_Comment [Automate d message] The system which generated this result transmitted reference range: <25 ng/mL. The reference range was not used to interpret this result as normal/abnormal. URN METHADONE (test code = METHAURN) See_Comment [Automated messa ge] The system which generated this result transmitted reference range: <300 ng/mL. The reference range was not used to interpret this result as normal/abnormal. Urine Source? Clean CatchCBC W/O [id number] 20:22:00* Test Item Value Reference Range Interpretation Comme nts WHITE BLOOD CELL (test code = WBC) 11.5 K/mm3 4.5-12.5 N RED BLOOD CELL (test code = RBC) 4.43 mill/mm3 4.0-5.8 N HEMOGLOBIN (test code = HGB) 13.6 gram/dL 13.0-17.5 N HEMATOCRIT (test code = HCT) 40.2 % 42.0-52.0 L MEAN CELL VOLUME (test code = MCV) 90.7 fL 80-98 N MEAN CELL HGB (test code = MCH) 30.7 picogram 27.0-33.0 N MEAN CELL HGB CONCETRATION (test code = MCHC) 33.8 gram/dL 33.0-36.0 N RED CELL DISTRIBUTION WIDTH (test code = RDW) 13.9 % 11.6-16.2 N PLATELET COUNT (test code = PLT) 304 K/mm3 150-450 N MEAN PLATELET VOLUME (test c ode = MPV) 9.8 fL 6.7-11.0 N Consult Notes Date/Time Note Provider Source 2022-06-01 16:47:23 nWmuz+WT/X6xZMwMA/Ac tGSpHtTF+dP lt/s6zJ+1qWJ+4YZxo2hnOzmqKGkvHX /[id number]:47:23Associated Order(s): CONSULT TO PHARMACY-AMINOGLYCOSIDESFormatt ing of this note is different [...] with any questions. Sil Soliz, Pharm.D., BCIDPClinical Ecommerce Project Manager - Infectious DiseasesCisco: [id number] signed by Sil SolizEAST[facility] at 06/01/2022 4:48 PM [id number] [id number]:48:27Consul t [id number] .[id number] for patient [id number] [id number] Jelani Soliz [id number] [id number]:48:271.2.840 .[id number]|[id number] [id number] 31 Sil Soliz [facility] 2022-05-31 16:00:25 zsTsOAgp0MRpsd17+jXs zMwPNIgaT7I o5HfQMrwgIpg4LWz6iQ/6OSpRxHOyvB [id number]:00:25 Pharmacy Aminoglycoside Monitoring NoteIndication: NTM SSTI/abscessDay of therapy: [...] with any questions. Sil Soliz, Pharm.D., BCIDPClinical Ecommerce Project Manager - Infectious DiseasesCisco: [phone] signed by Sil Soliz [facility] at 05/31/2022 4:00 PM BZW60524-2Ssaowpj yligNI6508-29-56J77:00:59Consul t noteTXT1.2.840.132709.1.13.43.2 .7.2.070728|[id number] for patient ftdf79893-4Fcnndhg [facility]2525 [facility] HospitalSdutEoxbrhdWjngyjaTPCU660956478 8MWUG7043-83-05Q94:00:591.2.840 .459516.1.72.3.15|1.2.840.89104 0.1.13.43.2.7.2.727879_[id number] [address] [place] [address] 2022-05-30 14:28:02 J+0m6vAGGeTs7vAs5fQn TEibAN2kpQ3 3tJSzBpOgbKRSjiiHmJhmSnCLiPXgAI Nk0720-41-42Y42:28:02 Pharmacy Aminoglycoside Monitoring NoteIndication: NTM SSTI/abscessDay of therapy: [...] with any questions. Sil Soliz, Pharm.D., BCIDPClinical Ecommerce Project Manager - Infectious DiseasesCisco: [phone] signed by Sil Soliz [facility] at 05/30/2022 2:36 PM TVS90782-8Crfyxnk zgkjDO9294-06-27T13:36:01Consul t noteTXT1.2.840.619759.1.13.43.2 .7.2.330661|[id number] for patient oibt08259-2Hbbliqu [facility]2525 [facility] HospitalQfcmEzaxqkmCyxtwruFDYU751778181 9QKOG9769-08-80H63:36:011.2.840 .220969.1.72.3.15|1.2.840.73794 0.1.13.43.2.7.2.727879_[id number] [address] [place] [address] 2022-05-29 12:08:26 MpzhUkT+mXj2tNJb5LxB aKgRw3MsI19 NXTN19TbpVdoftYuzFsS52pVnDaS+Dy Bz3155-89-84O85:08:26 Pharmacy Aminoglycoside Monitoring NoteIndication: NTM SSTI/abscessDay of therapy: 5 Target concentration: dosing per [place] nomogram, targeting goal peak ~25-45 mcg/mL, trough [...] contact us with any questions. Mariam Lepe [facility].BCOPClinical Ecommerce Project Manager Hematology/OncologyCisco : [phone] signed by Mariam Lepe [facility] at 05/29/2022 12:09 PM ITB22434-1Hrqiaer aumpXR2791-72-12M85:09:49Consul t noteTXT1.2.840.973043.1.13.43.2 .7.2.501267|[id number] for patient ngpi58883-7Dklwgeb tfvoQH51345135Yqaivrw R[place]ane [id number] 2GHJT6655-36-12F98:09:491.2.840 .020223.1.72.3.15|1.2.840.62830 0.1.13.43.2.7.2.727879_[id number] 42 Mariam Lepe [facility] 2022-05-28 10:27:53 CiCDJnTJGN/fwo0675k8 rHbjhH1WkYt AYJNpjd2cynmdYjEKgz3jhgn2ZMvfq6 ts0655-14-26T13:27:53 Pharmacy Aminoglycoside Monitoring NoteIndication: NTM SSTI/abscessDay of therapy: 4 Target concentration: dosing per [place] nomogram, targeting [...] contact us with any questions. Mariam Lepe [facility].BCOPClinical Ecommerce Project Manager Hematology/OncologyCisco : [phone] signed by Mariam Lepe [facility] at 05/28/2022 10:29 AM JLW94563-9Fjxafeo vuqeIU7510-51-66J53:29:36Consul t noteTXT1.2.840.640887.1.13.43.2 .7.2.093225|6233917610DMBijbqkb for patient ejgd58187-9Yuhnoby [id number] 6UPMU4669-15-78T24:29:361.2.840 .929681.1.72.3.15|1.2.840.70818 0.1.13.43.2.7.2.727879_[id number] 61 [facility] 2022-05-27 12:23:47 ZVytsF6p7xs1sfFjcWWy z3TOdpNNQXF 8vYBLkPst5LFx8WA0Z4LYBQSvVNEz4P ih1058-61-34Z71:23:47 Pharmacy Aminoglycoside Monitoring NoteIndication: NTM SSTI/abscessDay of therapy: 3 Target concentration: dosing per [place] nomogram, targeting goal peak ~25-45 mcg/mL, trough [...] with any questions. Ruchi Olsen, PharmD, BCCCPPhone: [phone] signed by Ruchi Olsen [facility] at 05/27/2022 1:04 PM IOK63513-5Lcffayp mwpsCP8612-75-12C39:04:50Consul t noteTXT1.2.840.612097.1.13.43.2 .7.2.748313|[id number] for patient flyg91490-5Lzsfsgk lxsnHZ095699570Alsj Raúl [address]TXTX[address] 9WZEP4961-43-05N01:04:501.2.840 .622942.1.72.3.15|1.2.840.86167 0.1.13.43.2.7.2.727879_[id number] 11 Ruchi Olsen [facility] 2022-05-26 09:18:39 03Y3y6/WZOAudXV8++ck 13NUwMhkYaI 8T9Wje1Mhz/lfMIGrP6XzAjhh0O7MLE YM6980-61-68G81:18:39 Pharmacy Aminoglycoside Monitoring NoteIndication: NTM SSTI/abscessDay of therapy: 2 Target concentration: dosing per [place] nomogram, targeting goal peak ~25-45 mcg/mL, trough ~5 mcg/mL Concomitant antibiotics: Azithromycin, tigecyclineAllergies: No known allergies Pertinent Objective Labs: Date dose/frequency concentration (peak/trough/random) 05/26 800mg q24h 5.9 (9h random) Microbiology:pending Assessment:1. CrCl: >120,Scr/BUN stable, 2. Continues on amikacin 800mg (10mg/kg) q24h 3. Random 9h level obtained today demonstrates dose appropriate per Joe nomogramPlan: 1. Will Continue current dose2. Labs Ordered: will order 2 levels: 2-h and 8-h post dose levels to confirm Thank you for the opportunity to participate in the care of this patient. Please do not hesitate to contact us with any questions. Ruchi Olsen, PharmD, BCCCPPhone: [phone] signed by Ruchi Olsen, [facility] at 05/26/2022 9:36 AM ZPA40809-2Tmoozac vmutBP5248-11-58E08:36:50Consul t noteTXT1.2.840.053586.1.13.43.2 .7.2.285398|3680367568PROcfbpxm for patient nyqi25343-8Udymgqv note[id number] 0EGDO9029-36-74Y99:36:501.2.840 .223519.1.72.3.15|1.2.840.78745 0.1.13.43.2.7.2.727879_[id number] 20 [facility] 2022-05-25 08:07:02 RYWxkVL/O1EBVZg2s8yq YJT9IceVTiH QDoWoW/PmRe8LW4tz7uHvj9e3KuLdsB zI2263-66-06J92:07:02Associated Order(s): IP CONSULT TO INFECTIOUS DISEASE Images from the original note were not included.Infectious Disease Consult ServiceAttending Consult NoteReason for Consult: NTM infectionRequesting Physician: Mariel Burch Date: 05/23/2022 Admission Diagnosis: CellulitisImpression/Recommenda tions: Tej Guadalupe is a 37y.o. male w/ history of IVDU, BPD comes in with non healing wounds after attempted IVDU with failed needle sticks about a month ago. These did not improve with I&D and antibiotics from OSH and another attempt at antibiotics and I&D at [facility]. He came back with worsening lesions and was admitted for same. We are consulted for his cultures growing AFB 4+. 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 [place], [place] for ID and sensis- growth from a [...] follow this fascinating caseArash Obando MD, PhD [facility] Infectious DiseasesProvider #[id number] 2021 8:09 AM H istory Obtained From: [...] homeless. He has not travelled outside of [place] recently and does not have any sick [...] and documented in the appropriate sections in [facility].Immunization history: There is no immunization history [...] Data: All labs, images, and data reviewed. 87590-7Fhqsblj jbmcPE3589-33-30Y44:04:27Consul t noteTXT1.2.840.544618.1.13.43.2 .7.2.919992|2543130639YSLaajjqc for patient nikl24883-5Vwnnhsw noteSt. Luke's Hospital2525 Natalie Kelly[id number] 0AYFS2031-49-25K88:04:271.2.840 .481685.1.72.3.15|1.2.840.04487 0.1.13.43.2.7.2.727879_[id number] 10 [facility] 2022-05-23 21:39:21 /2muwzcdjmsgL9tygHzA dw3goxIPVpp U8nam3teptNt6dR2WlRlsqI1e7QKWf8 Cj9865-58-65N87:39:21Associated Order(s): IP CONSULT TO HAND SURGERY Plastic Hand Surgery ServiceResident Consult NoteReason [...] to followChristopher Germán, MDPlastic and Reconstructive Surgery, GOK1TougcrHazel Hawkins Memorial HospitalPager: [phone] 2021 9:39 PMSubjective: Chief Complaint: forearm painHistory [...] with no changes. No need to repeat 79099-5Sokitfi utugWG301603RhzdmussixAdrian Anderson B1.2.840.412845.1.13.43.2.7.2.8 11272ZzjqqkplszDpnshPtuhu UPD5446-15-87Y20:42:00Consult noteTXT1.2.840.014634.1.13.43.2 .7.2.799870|[id number] for patient dakg46805-4Zrjtufo noteSt. Luke's Hospital2525 [facility] HospitalJfluIbswmlkYqwpsbtSHMF015529672 5LPGF7280-25-07C00:50:061.2.840 .515698.1.72.3.15|1.2.840.18293 0.1.13.43.2.7.2.727879_[id number] 43 [facility] History and Physical Notes Date/Time Note Provider Source 2022-05-23 22:01:59 6rQG140zcV21ql7yvTjj NuvsRLhHcGO 3VLISUh3X0kkK3mJ1XEl0ERC8v5isMB EK7396-21-93Z36:01:59 Medicine Team B Admission History & PhysicalAssessment/Plan:Tej Guadalupe [...] Status: FULL CODEEmergency Contact: Primary Emergency Contact: Lydia GUADALUPE, Qllmu [facility] VLY1WbhlpwHazel Hawkins Memorial Hospital10:02 PM, 05/23/2022 Chief Complaint: forearm pain [...] alert and orientedLabs & Imaging: [facility]. ssociated attestation - Hank Kilpatrick MD - 05/24/2022 2:10 AM CDT Please see my separate note for my attestation.83206-2Iwhihvx and physical kkfjHT276854Xsdus, Vishal1.2.840.880770.1.13.43.2. 7.2.813061XfszyYorqjaH, QC5003-68-33J78:10:26History and physical noteTXT1.2.840.729655.1.13.43.2 .7.2.837017|6369782112THZqwqzer for patient hpgg09422-2Iwgppzr and physical noteLNInternal MedicineInternal MedicineTriHealth [facility]2525 Natalie BushLzfnTuzvsebXosgnuhYTZY956491530 7OJOD7148-84-47R63:10:261.2.840 .417162.1.72.3.15|1.2.840.51953 0.1.13.43.2.7.2.727879_[id number] 78 Internal Medicine [facility] Procedure Notes Date/Time Note Provider Source 2022-05-31 08:35:51 4qBMj05FF5cDoe7H55mt xOT7ARN3qtK1oLxfO 5c3fbQ13YWF8IeqjSQ3Mg+Ls+L99677-68-51 T08:35:51Procedure(s): I& D OF ABSCESS WITH PACKING (COMPLICATED)Pre-Procedure Diagnose(s): Abscess of forearm, rightPost-Procedure Diagnose(s): [...] Culture sentComplications: nonePrimary Proceduralist: MULU Carrilloupervising Physician: Krysta Ramos MDProcedure in Detail: The area of fluctuance was [...] procedure well and there were no complicationsChristopher Germán, MDPlastic and Reconstructive Surgery, WHE1MfpykgHazel Hawkins Memorial HospitalPager: [phone] 2021 8:36 AM 67769-8Ivmtefvsy mzvjMR375604ApKrysta1.2.840.222196.1.13.43.2.7.2.83 5083WiOtsruoMO0634-44-95Q78:00:54Proc edgar noteTXT1.2.840.516539.1.13.43.2.7.2.7 50327|2663932839JUKoadkxfdp for patient wtxn98499-3Kryojezel noteLNTriHealth Bethesda Butler Hospital2525 [facility] HospitalTngmFrxilmvHcdjldiZRIB9714764811WILF6 412-61-73E99:49:121.2.840.997572.1.72 .3.15|1.2.840.246876.1.13.43.2.7.2.72 7879_[id number] [facility] 2022-05-24 16:29:09 gqmkzR/+9paucLX3Mper 1bJMhjYmx3agop0pa cWUTXmHkmbC2oL+0f1R5u2TTrhS0731-05-71 T16:29:09Procedure(s): I& D OF ABSCESS WITH PACKING (COMPLICATED); [...] 1Dressings: AppliedEstimated Blood Loss: MinimalSpecimens Collected: Culture n2Kpnwfipnljqdt: nonePrimary Proceduralist: MULU Carrilloupervising Physician: JUAN Andersonrocedure [...] and sent to the microbiology lab.Gabe Dunlap, MDPlastic and Reconstructive Surgery, QNE6YphdqrHazel Hawkins Memorial HospitalPager: [phone] 2021 4:30 PM 95541-1Wwqclrwqw hxfdDV493865KejwpzpnnvAdrian Anderson B1.2.840.004470.1.13.43.2.7.2.106350U [facility]2022-08-24T07:42:01Procedure noteTXT1.2.840.181590.1.13.43.2.7.2.7 72550|[id number] for patient bhpd70852-9Xoxjamvss noteSt. Luke's Hospital2525 [facility] HospitalZcxpFbkewnrXfqvfbzUQNR1063834908XTUA8 551-89-38T21:41:491.2.840.939410.1.72 .3.15|1.2.840.012834.1.13.43.2.7.2.72 7879_[id number] [facility] Notes Date/Time Note Provider Source 2023-11-01 14:19:23 XSAlRqP6/6xmCQjdGjcR6HHKPptouImEv2ziKP krSU8DCfHPSR4vm8z2ZYQNjcFN6508-55-28P8 4:19:23 Chief ComplaintPatient presents withAnxietyRefill RequestPast Medical History:Diagnosis DateAnxiety disorder, unspecifiedBenzodiazepine dependencePatient seen and assessed by PAM Gonzalez in fast track area.Patient in ER requesting medication refill for anxiety and has a follow-up with normal provider that prescribes medicine.Patient conscious and alert, with normal/unlabored breathing, and normal color/tone for ethnicity. Oriented to name, time, place, and situation. GCS15. Patient verbalizes no needs at this time.Patient discharged from fast track area.Educated on follow up instructions. Questions answered and concerns addressed. Vital signs obtained. Ambulatory with steady gait out of ER.[place] [address]-7Pohvooyoo department NxslOA9209-47-66V32:20:13[facility] department NoteTXT1.2.840.589802.1.13.104.2.7.2.7 46125|[id number] for patient fnti43428-3DjbuEJAEOYUUSLXUtotamsqd C-CDA narrative dzut627632957Ewkdzydy M Felix RNUT[address] LdrjNxqmzqdniIqtplxyufTSXK2866263656ZD YDNAAFLWSNTGUIWIQONO3991-83-14Z14:20:1 31.2.840.010937.1.72.3.15|1.2.840.1143 50.1.13.104.2.7.2.727879_[id number] Kelly Spence RN [facility] 2023-11-01 13:00:35 uParyPKv/DkyREZ6MB4J2K1oaxJ3DQ1W0iarzY hqm63wEEWElgahBByzrMI6kgUj4300-04-01R3 3:00:35 Patient to ED for anxiety due to doesn't have any of his clonazepam 2mg tabs anymore. He recently lost his grandmother and grandfather and been taking more than he is supposed to. He has been in withdrawal for 5 days. 73439-9Gctohcqpa department Triage uvoeVQ2732-86-50O38:01:57[facility] department Triage noteTXT1.2.840.662438.1.13.104.2.7.2.7 66612|[id number] for patient ljcz76893-1Fjcyvbrdg department NoteLNNARRATIVEFormatted C-CDA narrative vcbq282058212Vslpbuz D Wierzbicki RN[address] UzuxOnqwulqagBphpnzidaCCXU1658612341XZ ZYGVEXZHCMBEPAFMDNLO9487-22-52L52:01:5 71.2.840.080120.1.72.3.15|1..840.1143 50.1.13.104.2.7.2.727879_[id number] Chucky Hawkins RN [facility] 2023-10-02 12:30:00 1ZvhoLhbXXpHDz9yqUTLjYkwyoO0di2qB/4AnK n12lPoIl80iLSEVmZZsDGNN8No1704-01-98G5 2:30:00 Pt given printed and verbal discharge instructions regarding medication refill for benzodiazepine dependence, encouraged hydration,0 Prescriptions providedPt verbalized understanding of instructions, pt awake alert oriented, resp reg unlabored, skin w/d, color appropriate for race, moves all ext well,pt encouraged to follow up with pcp.Advised to seek medical attention for new/prolonged/worsening of symptoms,Symptoms improved.No adverse reaction to meds given in ER noted upon dischargeAwake, alert oriented, resp reg unlabored, skin w/d, pt leaving amb with steady gait, in no apparent distress. 56333-1Zyqwrbcvp department GdapMM1165-59-27A56:30:56Eme[address] [facility] department NoteTXT1.2.840.086706.1.13.104.2.7.2.7 32582|[id number] for patient wmng84151-5NqyyHQWYVSNLYKBXwbctavzz C-CDA narrative frdg139485446Fjtbx M Augustin RN[address]TXTX[address]US KUNXDUJEQOMOHZCENWPO7308-80-07U26:30:5 61.2.840.656984.1.72.3.15|1.2.840.1143 50.1.13.104.2.7.2.727879_[id number] Ayah Porter Augustin MARTINI [facility] 2023-10-02 11:56:31 1CyXJquWlYadQa0MUvJx/2J0yRGSi1A14SVai9 DAy6GhJVfs6M+3xbcYVfxANYT/8222-38-11Z4 1:56:31 Patient states: "I came here yesterday and checked in but I left. I'm detoxing off klonopin. I wanted to know if yall can refill it. My doctor doesn't do klonopin anymore." 30148-3Izfpnjmid department Triage shfoNY3331-11-84K42:57:33[facility] department Triage noteTXT1..840.454605.1.13.104.2.7.2.7 20689|[id number] for patient toaz08443-6Vyawhptrr department NoteLNNARRATIVEFormatted C-CDA narrative gswv438567417Lyjgk M Cruz RNUT[address]TXTX[address]US TZZNVGSGBNAHHYXAUHDU5050-70-68T31:57:3 31.2.840.434318.1.72.3.15|1.2.840.1143 50.1.13.104.2.7.2.727879_[id number] Elisabeth Soto RN [facility] 2023-10-02 11:43:00 Dyq9QOzDd5rLOmVMZ6VbRViAj10Ia3lGGydG0y Xr/24P9pf2UGajVlMvW9XMl6fR0824-49-25V0 1:43:00 [facility] Emergency Department NotePatient Name: Tej Reyna of : 1985 38 year old maleTreatment Room: [facility] R[facility] POOL/ADERTA-PLMedical Record Number: [id number] Care Physician: Rene Smith (Inactive)Patient Escorted by: Self [9]Mode of Arrival: Personal means [1]EMS Treatment Prior to ED Arrival:Travel and Exposure Screening:SymptomsDoes patient have any of these symptoms?: (not recorded)Exposure ScreeningHas patient had contact with someone with a communicable disease in the last month?: (not recorded)Diseases exposed to:: (not recorded)Is Patient ?: (not recorded)Exposure Date: (not recorded)Chief Complaint:Chief ComplaintPatient presents withOtherMedication refillHistory of Present Illness:IGS38xx M with anxiety and prescribed klonopin 2mg presents today needing refill. He states he is not doing good, feels his heart racing and keeps breaking out into sweats. He states he is trying to get ahold of [facility] and anybody else who can see him. He states if we can't give him a refill can we give him 1 tablet to make this go away.Past Medical History/Immunizations:Past Medical History:Diagnosis DateAnxiety disorder, unspecifiedBenzodiazepine dependenceAllergies:AllergiesAllergen ReactionsTrazodone SwellingFACE BECOMES SWOLLENPast Social History:Substance & Sexual ActivityNo substance use or sexual activity history on file.Past Surgical History:No past surgical history on file.Review of Systems:Review of SystemsConstitutional: Negative for activity change, chills, fever and weight loss.HENT: Negative for congestion, rhinorrhea, sore throat and trouble swallowing.Eyes: Negative for visual disturbance.Respiratory: Negative for cough and shortness of breath.Gastrointestinal: Negative for abdominal pain, nausea and vomiting.Genitourinary: Negative for dysuria, hematuria, decreased urine volume and difficulty urinating.Musculoskeletal: Negative for back pain and gait problem.Skin: Negative for rash and wound.Neurological: Negative for dizziness, syncope and weakness.Psychiatric/Behavioral: Negative for agitation and confusion. The patient is nervous/anxious.Endocrine: Negative for weight loss.Physical Exam:ED Triage Vitals [10/02/23 1157]Weight 83.9 kg (185 lb)Actual or estimated Estimated by patient/family reportHeight 1.727 m (5' 8")BP (!) 143/96Pulse 117Resp 16Temp 36.9 ?C (98.4 ?F)Temp source OralSpO2 99 %Measured on Room airPhysical ExamVitals and nursing note reviewed.Constitutional:General: He is not in acute distress.Appearance: He is not diaphoretic.HENT:Head: Normocephalic and atraumatic.Eyes:Pupils: Pupils are equal, round, and reactive to light.Neck:Vascular: No JVD.Cardiovascular:Rate and Rhythm: Tachycardia present.Heart sounds: Normal heart sounds. No murmur heard.Pulmonary:Effort: Pulmonary effort is normal. No respiratory distress.Breath sounds: Normal breath sounds.Abdominal:General: There is no distension.Palpations: Abdomen is soft.Tenderness: There is no abdominal tenderness.Musculoskeletal:General: Normal range of motion.Cervical back: Neck supple.Skin:General: Skin is warm and dry.Neurological:Mental Status: He is alert and oriented to person, place, and time.Psychiatric:Comments: Diaphoretic, panickedRadiology:No orders to displayLab Results:Lab Results - No data to displayEKG:If EKG completed, see Procedure Note.Orders and Treatments:No orders of the defined types were placed in this encounter.Orders Placed This EncounterMedicationsclonazePAM (KLONOPIN) tablet 1 mgFirst Provider Eval:ED EventsDate/Time Event User Phnpnlgm04/01/24 1207 Medical Screening Begins DEB BURGOS MD --10/02/23 1207 First Provider Evaluation DEB BURGOS MD --ED COURSEDiagnosis/Impression as of 10/02/23 1220Medication refillBenzodiazepine dependenceProcedures:ProceduresMDM:Med ical Decision MakingGiven 1mg tabletWill not give scriptdischargedProblems Addressed:Benzodiazepine dependence: acute illness or injury with systemic symptomsMedication refill: acute illness or injury with systemic symptomsRiskPrescription drug management.Flowsheet Documentation:Scoring Tools:No data recordedDisposition/Condition:ED DispositionED DispositionDisch - HomeConditionStableComment--Discharge Medications:Patient's MedicationsSTART taking these medicationsNo medications on fileCONTINUE taking these medications which have NOT CHANGEDOLANZAPINE (ZYPREXA) 10 MG TABLET Take 1 tablet by mouth in the morning and 1 tablet in the evening.START taking Modified Medications as PrescribedNo medications on fileSTOP taking these medicationsNo medications on fileFollow-up:Electronically signed by:Deb Burgos DO10/02/23 1220 42527-0Cdyoelrqw Emergency department ThonDB3907-89-16T70:20:50[facility] department NoteTXT1.2.840.515753.1.13.104.2.7.2.7 13554|[id number] for patient qkmx81026-2Auvqciadw department NoteLNNARRATIVEFormatted C-CDA narrative textUT[address] ZsfjQjvrzevkpQvttmdnarWWCI8217771730NQ NPMVTNYYFTSOLMYLWRCC5218-76-41P71:20:5 01..840.908493.1.72.3.15|1.2.840.1143 50.1.13.104.2.7.2.727879_[id number] [facility] 2023-09-28 19:25:10 pEOZLLMh+Z4flSCR75S04hi8BJXbEOumoqbXPg 9G24RLUH3xgbfwkrWKW9LiaIsA6787-41-14Q8 9:25:10 Pt unable to be located. Never was seen by provider. 30460-3Faczhdnym department YbirND0374-95-60J06:25:28[facility] department NoteTXT1.2.840.226352.1.13.104.2.7.2.7 80041|[id number] for patient puug23856-9SbpaPJXMNVOHULWFycsogpjn C-CDA narrative rflh040758651Wpndkm D Roman RN[id number] HJLJGLIHNLFOFWBLMKKL3247-12-54S15:25:2 81.2.840.436596.1.72.3.15|1.2.840.1143 50.1.13.104.2.7.2.727879_[id number] Medina Presley RN [facility] 2023-09-28 18:17:15 NCpPO6O0FKvYlCOB5ORPAvTkKmXnOiBhpJAaVz 5Xl4CPLeeJ8vTz5VUUpgEMBQXl4304-61-68A9 8:17:15 Pt's states his doctor quit prescribing his benzo's and hasn't had any in two days. He was taking klonazepam 2mg BID. States, " I went to go see my suboxone doctor, but I'm not having any issues with that. They're weaning me off and I'm getting off of those but that doctor called my other doctor and told him something and he won't prescribe me any." 89483-1Tvitbozso department Triage cxgpWL4476-86-94F84:19:10[facility] department Triage noteTXT1.2.840.099446.1.13.104.2.7.2.7 20458|[id number] for patient dnca22225-0Tvrqbjsfq department NoteLNNARRATIVEFormatted C-CDA narrative fuir361817331Gvdwcps Fief RN[id number] VOLBGMLBNQCOPWNPVZET7171-88-88E87:19:1 01.2.840.243233.1.72.3.15|1.114 50.1.13.104.2.7.2.727879_[id number] Liset Blancas VINI [facility] 2023-09-28 18:09:00 iLhaLjaFpG4smdTUQ6/VtIUTycwTDS+qWLW3LV HBSgY4U+G0PFRMZ1y7cODFuFul1556-76-59H8 8:09:00 Images from the original note were not included.Patient never seen by Ellen patel was [facility]:Dyana Yanes MD09/28/231922SchDyana silva MD09/28/231922 18683-8Idvhcrgnr Emergency department QmdfDN7539-90-49Y76:23:40Physician Emergency department NoteTXT1..840.025838.1.13.104.2.7.2.7 49340|[id number] for patient ihys85908-7Noxzkzlss department NoteLNNARRATIVEFormatted C-CDA narrative text[address]Kk[id number] GBESYQUGEQJPUJRAYGRM0765-23-25Q90:23:4 01.2.0.722764.1.72.3.15|1.114 50.1.13.104.2.7.2.727879_[id number] [facility] 2022-06-03 18:30:00 706n4gQESj/HNEMtpwZ2e7gXL1jR9gqxDlAw9m Xm+ehFXvaEjXyobtx+q8G71bJs3094-12-64Z8 8:30:00 Gave pt appointments, provided wound care, paper prescriptions were delivered via doctor bedside, taught about s/s of infection, removed IV, pt left with belongings via transport, no distress noted.Gave pt 3 weeks of wound care supplies.Pt left via [employer]. cement storage worker provided instructions on how to request a [employer].No needs at this time. [id number] Note1.2.840.647067.1.13.43.2.7.4.08520 0.55086348-71-38O78:18:43Flowsheet NoteTXT1.2.840.161700.1.13.43.2.7.2.72 7879|[id number] for patient [id number] 23-06-02T19:18:431.2.840.812648.1.72.3 .15|1.2.840.204120.1.13.43.2.7.2.88736 9_[id number] [facility] 2022-06-03 18:30:00 6ETvef2gLTWsOb/3d0lass3m+Hl9v+PNAXSJwW 14CZZsYEpK8MCwNXf6pidTB85A3205-33-00Y2 8:30:00 Problem: Hospital Acquired Venous Thromboembolism (VTE)Goal: Absence of Hospital Acquired VTE (DVT or PE)Description: Patient will not develop VTE (DVT or PE) during the hospital stay.Outcome: Resolved Problem: Knowledge DeficitGoal: Increase Understanding of Causes and Management of Disease Process and TreatmentsDescription: Patient will be educated with accurate information, demonstrate knowledge and skills regarding the disease process, and the diagnostic and therapeutic plan.Outcome: Resolved Problem: Falls / InjuryGoal: Absence of fall or injuryDescription: Refer to the Documentation Flowsheet for Interventions.Outcome: Resolved Problem: Impaired Tissue IntegrityGoal: Impaired Tissue Will Be Free Of Any Openings, Swelling, Or DrainageDescription: Patient s impaired tissue will be absent of redness, swelling, drainage, and pain.Outcome: Resolved Problem: InfectionGoal: No Infections Will OccurDescription: Infection will be prevented and the risk will be reduced through optimal control measures (i.e., standard, contact, and droplet precautions).Vital signs and laboratory studies will be within defined limits, and there will not be evidence of purulent drainage from wounds, or positive cultures.Outcome: Resolved Problem: Healing EnvironmentGoal: Provide A Physical Environment Affirmed By The Patient To Be Safe And ComfortableOutcome: ResolvedGoal: Identify The Patient's Healing GoalOutcome: ResolvedGoal: Identify Traditional / Cultural Healing Practice (s)Outcome: Resolved Problem: Relationship Based CareGoal: Develop / Initiate The Interdisciplinary Plan For DischargeOutcome: ResolvedGoal: Identify Support SystemsOutcome: ResolvedGoal: Patient / Family / S.O. Are Supportive And Accepting Of The Established Care GoalsOutcome: Resolved Problem: Culturally Responsive CareGoal: Provide Culturally Competent CareOutcome: Resolved Problem: Standards Of Nursing CareGoal: Maintain Standards Of Nursing CareDescription: * Verify Care Meets Standards For Assessment And Management Of Patient Status, Medications And Treatment, Safety, And Education.* Care Reviewed Regarding:> Education Of Patient, Family, S.O.> Verify Understanding Of Causes, Treatment And Follow-Up Care Related To Disease Process.> Administration And Coordination Of Medications And Treatments As Prescribed.> Assessment, Evaluation And Communication Of Status As Indicated By: Patient Condition, Treatment And / Or Patient Response.> Comfort Measures As Indicated By: Patient Subjective And Objective Responses.Outcome: Resolved Problem: Pain - AcuteGoal: An Acceptable Level Of ComfortDescription: Patient will have adequate relief of pain, be able to cope with unrelieved pain using pharmacological and non-pharmacological methods and be able to perform desired activities.Outcome: Resolved Problem: Activity IntoleranceGoal: Activity Will Be Tolerated And Energy Conservation Practices Will Be UsedDescription: Patient will tolerate activities according to his/her functional cardiovascular/respiratory status and age, and energy conservation practices will be used.Vital signs (HR, SBP, RR) will fall within defined limits.There will be no shortness of breath, chest pain, or new arrhythmias (if applicable).Outcome: Resolved Problem: Altered Body ImageGoal: Altered Body Image Is AcceptedDescription: Patient will accept body changes and demonstrate ability to look at, discuss, or care for the portion of the body that has been altered.Outcome: Resolved Problem: Impaired MobilityGoal: The Maximum Level Of Function Will Be Achieved And Risk Of Complications ReducedDescription: The patient will maintain a maximum level of function, mobility, and physical activity using assistive devices.Patient will not develop complications of impaired mobility such as deep vein thrombosis or pressure ulcers.Outcome: Resolved [id number] of Care1.2.840.073520.1.13.43.2.7.4.52224 0.30503649-29-54F03:47:16Plan of CareTXT1.2.840.360717.1.13.43.2.7.2.72 7879|[id number] for patient xgsd60463-8QediYUZLJXabdnvSmallpox Hospital2525 [facility] Hospit[id number] 23-06-02T18:47:161.2.840.868052.1.72.3 .15|1.2.840.354228.1.13.43.2.7.2.15025 [id number] [facility] 2022-06-03 17:38:37 8357YQAyEi7g3pM29JdRq2AdpQ77XYHD+fEaUa 0miP++WCmI2q0NdqaOAe0zFLtP8332-66-44T7 7:38:37 06/03/22 6057 Intervention Financial Needs Other (Comment)([facility] SELF-PAY/SELF-PAY SCREENED) Referral Data Referral Reason Wound Care(Wound care supplies) Received a call from Team B requesting wound care supplies for take home.Chart reviewed.Spoke with plastics, for wound care instructions and supplies needed. Supply form filled out per MD's recommendation ( kerlix 10pcs, iodoform 1/4 inch # 1 bot., 2" little wrap x 6 and suture removal kit ) and faxed to patient's nurse. Per Dr. Dunlap will see patient in the clinic and will order additional supplies if still needed.RN to provide patient's with wound care supplies.Glory BISWAS ACM-RNEC Nurse Case ManagerOhio State Harding Hospital / [facility]# [phone] [id number] Note1.2.840.032558.1.13.43.2.7.4.21249 0.67308659-45-84X72:49:49Flowsheet NoteTXT1.2.840.915185.1.13.43.2.7.2.72 7879|[id number] for patient [id number] D Real RNTriHealth [facility]25[address] [facility] Hospita[id number] 23-06-02T17:49:491.2.840.610855.1.72.3 .15|1.2.840.588116.1.13.43.2.7.2.70713 [id number] Glory Tran [facility] 2022-06-03 04:38:15 9V5TTMkEoMbzpZcvGYkmCZ0t3p4k0W3wc01wdZ wfqm9ygEBZXPGbnek87cIt4/WV3445-79-33A7 4:38:15 Problem: Hospital Acquired Venous Thromboembolism (VTE)Goal: Absence of Hospital Acquired VTE (DVT or PE)Description: Patient will not develop VTE (DVT or PE) during the hospital stay.Outcome: Met This Shift Problem: Knowledge DeficitGoal: Increase Understanding of Causes and Management of Disease Process and TreatmentsDescription: Patient will be educated with accurate information, demonstrate knowledge and skills regarding the disease process, and the diagnostic and therapeutic plan.Outcome: Met This Shift Problem: Falls / InjuryGoal: Absence of fall or injuryDescription: Refer to the Documentation Flowsheet for Interventions.Outcome: Met This Shift Problem: Pain - AcuteGoal: An Acceptable Level Of ComfortDescription: Patient will have adequate relief of pain, be able to cope with unrelieved pain using pharmacological and non-pharmacological methods and be able to perform desired activities.Outcome: Met This Shift [id number] of Care1.2.840.452457.1.13.43.2.7.4.93588 0.99486720-50-68Y86:38:19Plan of CareTXT1.2.840.615966.1.13.43.2.7.2.72 7879|[id number] for patient [id number] Health[address] [place], [place] [address]Ox[id number] 23-06-02T04:38:191.2.840.599611.1.72.3 .15|1.2.840.819935.1.13.43.2.7.2.25661 [id number] Kristine Melgoza [facility] 2022-06-02 19:47:16 TAoikmVjZUbXTyjSThhKrbob2R2QA39tUOGmlo rcMUOHKmSaDxFbs41MuSgju+747439-91-63F2 9:47:16 Problem: Hospital Acquired Venous Thromboembolism (VTE)Goal: Absence of Hospital Acquired VTE (DVT or PE)Description: Patient will not develop VTE (DVT or PE) during the hospital stay.Outcome: Met This Shift Problem: Falls / InjuryGoal: Absence of fall or injuryDescription: Refer to the Documentation Flowsheet for Interventions.Outcome: Met This Shift Problem: Healing EnvironmentGoal: Provide A Physical Environment Affirmed By The Patient To Be Safe And ComfortableOutcome: Met This ShiftGoal: Identify The Patient's Healing GoalOutcome: Met This ShiftGoal: Identify Traditional / Cultural Healing Practice (s)Outcome: Met This Shift Problem: Culturally Responsive CareGoal: Provide Culturally Competent CareOutcome: Met This Shift Problem: Standards Of Nursing CareGoal: Maintain Standards Of Nursing CareDescription: * Verify Care Meets Standards For Assessment And Management Of Patient Status, Medications And Treatment, Safety, And Education.* Care Reviewed Regarding:> Education Of Patient, Family, S.O.> Verify Understanding Of Causes, Treatment And Follow-Up Care Related To Disease Process.> Administration And Coordination Of Medications And Treatments As Prescribed.> Assessment, Evaluation And Communication Of Status As Indicated By: Patient Condition, Treatment And / Or Patient Response.> Comfort Measures As Indicated By: Patient Subjective And Objective Responses.Outcome: Met This Shift Problem: Pain - AcuteGoal: An Acceptable Level Of ComfortDescription: Patient will have adequate relief of pain, be able to cope with unrelieved pain using pharmacological and non-pharmacological methods and be able to perform desired activities.Outcome: Met This Shift Problem: Activity IntoleranceGoal: Activity Will Be Tolerated And Energy Conservation Practices Will Be UsedDescription: Patient will tolerate activities according to his/her functional cardiovascular/respiratory status and age, and energy conservation practices will be used.Vital signs (HR, SBP, RR) will fall within defined limits.There will be no shortness of breath, chest pain, or new arrhythmias (if applicable).Outcome: Met This Shift Problem: Impaired MobilityGoal: The Maximum Level Of Function Will Be Achieved And Risk Of Complications ReducedDescription: The patient will maintain a maximum level of function, mobility, and physical activity using assistive devices.Patient will not develop complications of impaired mobility such as deep vein thrombosis or pressure ulcers.Outcome: Met This Shift [id number] of Care1.2.840.169088.1.13.43.2.7.4.05801 0.49786588-75-21G42:47:18Plan of CareTXT1.2.840.638791.1.13.43.2.7.2.72 7879|[id number] for patient vtse97000-8ZfgeDQFACPbwuri Health Ehtfne[address] [place], [place] [id number] 22-09-01T19:47:181.2.840.361339.1.72.3 .15|1.2.840.074772.1.13.43.2.7.2.64705 [id number] [facility] 2022-06-02 04:02:37 XKMiidvQLojghgFAw1aTvpHtgiuMAHVSmCIKbb uL42ke1kOTc2m/YoWX1ZWBOSJS7856-99-45V1 4:02:37 Problem: Hospital Acquired Venous Thromboembolism (VTE)Goal: Absence of Hospital Acquired VTE (DVT or PE)Description: Patient will not develop VTE (DVT or PE) during the hospital stay.Outcome: Met This Shift Problem: Knowledge DeficitGoal: Increase Understanding of Causes and Management of Disease Process and TreatmentsDescription: Patient will be educated with accurate information, demonstrate knowledge and skills regarding the disease process, and the diagnostic and therapeutic plan.Outcome: Met This Shift Problem: Falls / InjuryGoal: Absence of fall or injuryDescription: Refer to the Documentation Flowsheet for Interventions.Outcome: Met This Shift Problem: Pain - AcuteGoal: An Acceptable Level Of ComfortDescription: Patient will have adequate relief of pain, be able to cope with unrelieved pain using pharmacological and non-pharmacological methods and be able to perform desired activities.Outcome: Met This Shift [id number] of Care1.2.840.446896.1.13.43.2.7.4.62118 0.38385075-37-21U57:02:40Plan of CareTXT1.2.840.152901.1.13.43.2.7.2.72 7879|[id number] for patient darz72103-1QnzcJSKOXQbiubc Health Mjavqd4200 [facility] Hospit[id number] 23-06-01T04:02:401.2.840.302729.1.72.3 .15|1.2.840.972067.1.13.43.2.7.2.45673 [id number] [facility] 2022-06-01 16:07:00 KdNwbjP7h4y9DUjPga3dZtaiqRtzLu4ncyB3ZG z2tnexyvoH5O4FZ34JdtTaY/rE3870-21-29Y6 6:07:00 Problem: Hospital Acquired Venous Thromboembolism (VTE)Goal: Absence of Hospital Acquired VTE (DVT or PE)Description: Patient will not develop VTE (DVT or PE) during the hospital stay.Outcome: Met This Shift Problem: Knowledge DeficitGoal: Increase Understanding of Causes and Management of Disease Process and TreatmentsDescription: Patient will be educated with accurate information, demonstrate knowledge and skills regarding the disease process, and the diagnostic and therapeutic plan.Outcome: Met This Shift Problem: Falls / InjuryGoal: Absence of fall or injuryDescription: Refer to the Documentation Flowsheet for Interventions.Outcome: Met This Shift Problem: InfectionGoal: No Infections Will OccurDescription: Infection will be prevented and the risk will be reduced through optimal control measures (i.e., standard, contact, and droplet precautions).Vital signs and laboratory studies will be within defined limits, and there will not be evidence of purulent drainage from wounds, or positive cultures.Outcome: Met This Shift Problem: Healing EnvironmentGoal: Provide A Physical Environment Affirmed By The Patient To Be Safe And ComfortableOutcome: Met This Shift [id number] of Care1.2.840.539562.1.13.43.2.7.4.85467 0.90174307-11-55E66:07:12Plan of CareTXT1.2.840.217635.1.13.43.2.7.2.72 7879|[id number] for patient voqs12602-9XcehJXFUVSbicna Health Sscwmu0324 [facility] Hospital[id number] 23-05-316:07:121.2.840.427075.1.72.3 .15|1.2.840.581453.1.13.43.2.7.2.58190 [id number] [facility] 2022-06-01 16:04:25 G8Lo7yGiyiA7lCrro+VDPv+x5VJE+qRGw5K/GL AjjNmHLJhJ2fbHIv3m1rrEZb1S8708-32-31C1 6:04:25 06/01/22 1602 Intervention Coordination of Care Multidisciplinary team(S/p I+D of 4x abscesses on 05/25 and 05/31.infection) Disease Management Meets criteria for Inpatient Medical Necessity Screening Concurrent review([id number]) Oumou Villa MSN, BSN, [facility]-RNClinical Nurse Case [phone] [id number] Note1.2.840.368277.1.13.43.2.7.4.13415 0.22198806-90-43F06:04:51Flowsheet NoteTXT1.2.840.763818.1.13.43.2.7.2.72 7879|[id number] for patient kqyz41131-9ZnjjNG786261100Pktmiqu Okolie RNTriHealth [facility] [place], [place] [address]I[id number] 23-05-31T16:04:511.2.840.038270.1.72.3 .15|1.2.840.071892.1.13.43.2.7.2.01015 [id number] Oumou Villa RN [facility] 2022-06-01 05:30:00 pmqeSbMGuFUnOj54hJDmnI1UMsBYv0KO9N3zzu VGhnXnsWXDRDAGAe8hsF3t6rx74033-56-46Y8 5:30:00 Problem: Falls / InjuryGoal: Absence of fall or injuryDescription: Refer to the Documentation Flowsheet for Interventions.Outcome: Met This Shift Problem: InfectionGoal: No Infections Will OccurDescription: Infection will be prevented and the risk will be reduced through optimal control measures (i.e., standard, contact, and droplet precautions).Vital signs and laboratory studies will be within defined limits, and there will not be evidence of purulent drainage from wounds, or positive cultures.Outcome: Met This Shift Problem: Activity IntoleranceGoal: Activity Will Be Tolerated And Energy Conservation Practices Will Be UsedDescription: Patient will tolerate activities according to his/her functional cardiovascular/respiratory status and age, and energy conservation practices will be used.Vital signs (HR, SBP, RR) will fall within defined limits.There will be no shortness of breath, chest pain, or new arrhythmias (if applicable).Outcome: Met This Shift [id number] of Care1.2.840.994890.1.13.43.2.7.4.74095 0.64971345-10-27V16:50:41Plan of CareTXT1.2.840.911026.1.13.43.2.7.2.72 7879|[id number] for patient gbyr06241-8VbkxXB080795136Kgogem Osondu RNTriHealth [facility] [place], [place] [address]XjxfGemhokfEuicvybIIKB3925247467WRDP50 23-05-31T07:50:411.2.840.902000.1.72.3 .15|1.2.840.267975.1.13.43.2.7.2.89029 [id number] Jessika Connolly RN [facility] 2022-05-31 16:17:37 j1LQTGvmRNBBo0Mn/Lo9WjS0i72MWnOFvPYmgJ 4xT1oAe+WvSelStK5C51sLqfBk7399-57-90P7 6:17:37 Problem: Hospital Acquired Venous Thromboembolism (VTE)Goal: Absence of Hospital Acquired VTE (DVT or PE)Description: Patient will not develop VTE (DVT or PE) during the hospital stay.Outcome: Met This Shift Problem: Knowledge DeficitGoal: Increase Understanding of Causes and Management of Disease Process and TreatmentsDescription: Patient will be educated with accurate information, demonstrate knowledge and skills regarding the disease process, and the diagnostic and therapeutic plan.Outcome: Met This Shift Problem: Falls / InjuryGoal: Absence of fall or injuryDescription: Refer to the Documentation Flowsheet for Interventions.Outcome: Met This Shift Problem: Falls / InjuryGoal: Absence of fall or injuryDescription: Refer to the Documentation Flowsheet for Interventions.Outcome: Met This Shift Problem: Impaired Tissue IntegrityGoal: Impaired Tissue Will Be Free Of Any Openings, Swelling, Or DrainageDescription: Patient s impaired tissue will be absent of redness, swelling, drainage, and pain.Outcome: Met This Shift [id number] of Care1.2.840.172532.1.13.43.2.7.4.24734 0.67000049-87-19D64:17:53Plan of CareTXT1.2.840.965124.1.13.43.2.7.2.72 7879|[id number] for patient lzma47742-4StjjFPWTETmzfhp Health Vknlhk3072 [facility] Hospit[id number] 23-05-30T16:17:531.2.840.504179.1.72.3 .15|1.2.840.913506.1.13.43.2.7.2.13251 [id number] [facility] 2022-05-31 10:15:18 +SVKsgJdEUFCYflpEcr8JtqI/5Lc8gwqwEwDSn LEklF2yd7afE1646OiSVtg6q9l5798-11-80M7 0:15:18 Nutrition Screen by Salvationist, RegisteredNutrition Screen re: LOS x 7 days.Tej Guadalupe is a pleasant 37y.o. male. Chief Complaint Patient presents with Abscess No past medical history on file. No past surgical history on file.Brief Current Medical Issues: LHD male with a past medical history of IV drug abuse who presents with a one month history of intermittent and evolving areas of tenderness and erythema, predominantly on the right forearm- s/p I&D 05/24, repeat this AM; cultures with no growth to dateNutrition Screen Score by Nsg: No Score RecordedAppetite: Good per pt. States he's been eating very well and reports no problems with the meals servedGI/Chew/Swal Issues: reports resolved nausea, denies all issues at this timeFood Allergies/Intolerances/Practices: No Known AllergiesAnthropometricsVisit VitalsBP 110/65 Pulse 76 Temp 97.8 F (36.6 C) (Oral) Resp 17 Ht 5' 8" (1.727 m) Wt 179 lb (81.2 kg) SpO2 96% BMI 27.22 kg/m2 Smoking Status Current Every Day Smoker BSA 1.97 m2 Wt Readings from Last 3 Encounters: 05/24/22 179 lb (81.2 kg) 05/22/22 180 lb (81.6 kg) 05/19/22 180 lb (81.6 kg) Body mass index is 27.22 kg/m2.BMI Category: OverweightWeight changes: none reportedCurrent Medical Nutrition TherapyDiet Order: Regular Diet Oral Supplements: none%PO intake: 75-100% most mealsSkin: per LDA Wounds: L antecubital, RL armNutrition Plan/Recommendations: (as medically feasible)1. Continue with current diet order of Regular Diet2. Iron supplementation3. Add/adjust bowel regimen as needed4. Continue to monitor weight, intake & tolerance, GI motility and nutrition related labsAvailable/Consult PRNSignature:Kelly Boo DTR [id number]: [phone] see Dietitian Note(s) in Plan of Care. [id number] of Care1.2.840.519127.1.13.43.2.7.4.57546 0.02496429-42-12L39:15:12Plan of CareTXT1.2.840.242609.1.13.43.2.7.2.72 7879|[id number] for patient gnjf07477-5PyaqDEEoivckoeiHtjwjzoxeBPD [facility] Qazsgh1117 Natalie BushLfpyYvgexxuBdbynmfTNGP8933165625VWGB94 23-05-30T12:15:121.2.840.957643.1.72.3 .15|1.2.840.783378.1.13.43.2.7.2.94326 [id number] [facility] 2022-05-31 06:47:50 sG0Gs8h3wKTv9M0kQG0UEZzSdvDirpbYNru6Z/ pxLcrvTtDiqiIQxdOWd6ELnD6R2233-76-21C6 6:47:50 Problem: Hospital Acquired Venous Thromboembolism (VTE)Goal: Absence of Hospital Acquired VTE (DVT or PE)Description: Patient will not develop VTE (DVT or PE) during the hospital stay.Outcome: Met This Shift Problem: Knowledge DeficitGoal: Increase Understanding of Causes and Management of Disease Process and TreatmentsDescription: Patient will be educated with accurate information, demonstrate knowledge and skills regarding the disease process, and the diagnostic and therapeutic plan.Outcome: Met This Shift Problem: Falls / InjuryGoal: Absence of fall or injuryDescription: Refer to the Documentation Flowsheet for Interventions.Outcome: Met This Shift Problem: Impaired Tissue IntegrityGoal: Impaired Tissue Will Be Free Of Any Openings, Swelling, Or DrainageDescription: Patient s impaired tissue will be absent of redness, swelling, drainage, and pain.Outcome: Met This Shift Problem: InfectionGoal: No Infections Will OccurDescription: Infection will be prevented and the risk will be reduced through optimal control measures (i.e., standard, contact, and droplet precautions).Vital signs and laboratory studies will be within defined limits, and there will not be evidence of purulent drainage from wounds, or positive cultures.Outcome: Met This Shift Problem: Healing EnvironmentGoal: Provide A Physical Environment Affirmed By The Patient To Be Safe And ComfortableOutcome: Met This ShiftGoal: Identify The Patient's Healing GoalOutcome: Met This ShiftGoal: Identify Traditional / Cultural Healing Practice (s)Outcome: Met This Shift Problem: Relationship Based CareGoal: Develop / Initiate The Interdisciplinary Plan For DischargeOutcome: Met This ShiftGoal: Identify Support SystemsOutcome: Met This ShiftGoal: Patient / Family / S.O. Are Supportive And Accepting Of The Established Care GoalsOutcome: Met This Shift Problem: Culturally Responsive CareGoal: Provide Culturally Competent CareOutcome: Met This Shift Problem: Standards Of Nursing CareGoal: Maintain Standards Of Nursing CareDescription: * Verify Care Meets Standards For Assessment And Management Of Patient Status, Medications And Treatment, Safety, And Education.* Care Reviewed Regarding:> Education Of Patient, Family, S.O.> Verify Understanding Of Causes, Treatment And Follow-Up Care Related To Disease Process.> Administration And Coordination Of Medications And Treatments As Prescribed.> Assessment, Evaluation And Communication Of Status As Indicated By: Patient Condition, Treatment And / Or Patient Response.> Comfort Measures As Indicated By: Patient Subjective And Objective Responses.Outcome: Met This Shift Problem: Pain - AcuteGoal: An Acceptable Level Of ComfortDescription: Patient will have adequate relief of pain, be able to cope with unrelieved pain using pharmacological and non-pharmacological methods and be able to perform desired activities.Outcome: Met This Shift [id number] of Care1.2.840.172360.1.13.43.2.7.4.99107 0.04984053-06-59J14:47:56Plan of CareTXT1.2.840.504531.1.13.43.2.7.2.72 7879|[id number] for patient eato02876-8HkpxPJ063694370Ycogj Anyamene RNTriHealth [facility] [place], [place] [address]Csd[id number] 23-05-30T06:47:561.2.840.251559.1.72.3 .15|1.2.840.622712.1.13.43.2.7.2.19280 [id number] Charline Ren RN [facility] 2022-05-30 16:05:44 YmCjPKp4sgdh7vI+Kb2zDwKwIw10Glni0/0K3J qFj1CG2GPz/lq9/kt/ypjLMIze3812-05-17T4 6:05:44 Initial visit, pt and one family member present, encouragement and spiritual support provided which resulted in hope being expressed. 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 Restorationist Patient's significant other Patient's Significant Other Designation Immediate family Spiritual Resources Spiritual Resources Awareness of the Holy;Hope Fundraising Assistant Assessment (Emotional Needs) Emotional Needs Grief/mourning Fundraising Assistant Assessment (Spiritual Needs) Patient Expressing Grief/mourning;Helplessness Patient Exploring Brigitte and values Fundraising Assistant Interventions Emotional Needs Non-anxious, non-judgmental presence provided;Emotions explored;Emotions validated;Hope encouraged;Reflective listening provided Spiritual Needs Grief/mourning explored, encouraged and/or enabled;Brigitte and or beliefs explored and/or validated;Pastoral counseling provided Chaplain Haywoode3-2480 [id number] Note1.2.840.757488.1.13.43.2.7.4.05622 0.93558981-22-09Y35:06:41Flowsheet NoteTXT1.2.840.748498.1.13.43.2.7.2.72 7879|[id number] for patient ftlr25093-1RfufND00895532Tfpcbhk Joy KnottCarlosTriHealth [facility]2525 [facility] Hospit[id number] 23-05-29T16:06:411.2.840.381932.1.72.3 .15|1.2.840.367547.1.13.43.2.7.2.49871 [id number] Shawna TillmanClark [facility] 2022-05-30 15:46:11 Tkw/nUSLu0qHNI7oMNpjnfgpUxn2e5YkFnMA8u Lm9tXuqJk8EwOrgyuaZ4RVubiJ5007-39-69R7 5:46:11 Problem: Hospital Acquired Venous Thromboembolism (VTE)Goal: Absence of Hospital Acquired VTE (DVT or PE)Description: Patient will not develop VTE (DVT or PE) during the hospital stay.Outcome: Met This Shift Problem: Falls / InjuryGoal: Absence of fall or injuryDescription: Refer to the Documentation Flowsheet for Interventions.Outcome: Met This Shift Problem: Healing EnvironmentGoal: Provide A Physical Environment Affirmed By The Patient To Be Safe And ComfortableOutcome: Met This Shift Problem: Pain - AcuteGoal: An Acceptable Level Of ComfortDescription: Patient will have adequate relief of pain, be able to cope with unrelieved pain using pharmacological and non-pharmacological methods and be able to perform desired activities.Outcome: Met This Shift [id number] of Care1.2.840.535284.1.13.43.2.7.4.63761 0.34816418-72-07K21:46:15Plan of CareTXT1.2.840.650398.1.13.43.2.7.2.72 7879|[id number] for patient [id number] [facility] [facility] Hospit[id number] 23-05-29T15:46:151.2.840.662187.1.72.3 .15|1.2.840.998440.1.13.43.2.7.2.04785 [id number] [facility] 05:30:02 8Dek/rKAq1rZ523vL0clj32Rw52sRLif8mIXnn eCyQnFhxNipMPkQRFOyO+OvtO43454-74-17J4 5:30:02 Problem: Hospital Acquired Venous Thromboembolism (VTE)Goal: Absence of Hospital Acquired VTE (DVT or PE)Description: Patient will not develop VTE (DVT or PE) during the hospital stay.Outcome: Met This Shift Problem: Knowledge DeficitGoal: Increase Understanding of Causes and Management of Disease Process and TreatmentsDescription: Patient will be educated with accurate information, demonstrate knowledge and skills regarding the disease process, and the diagnostic and therapeutic plan.Outcome: Met This Shift Problem: Falls / InjuryGoal: Absence of fall or injuryDescription: Refer to the Documentation Flowsheet for Interventions.Outcome: Met This Shift Problem: Impaired Tissue IntegrityGoal: Impaired Tissue Will Be Free Of Any Openings, Swelling, Or DrainageDescription: Patient s impaired tissue will be absent of redness, swelling, drainage, and pain.Outcome: Met This Shift Problem: InfectionGoal: No Infections Will OccurDescription: Infection will be prevented and the risk will be reduced through optimal control measures (i.e., standard, contact, and droplet precautions).Vital signs and laboratory studies will be within defined limits, and there will not be evidence of purulent drainage from wounds, or positive cultures.Outcome: Met This Shift Problem: Healing EnvironmentGoal: Provide A Physical Environment Affirmed By The Patient To Be Safe And ComfortableOutcome: Met This ShiftGoal: Identify The Patient's Healing GoalOutcome: Met This ShiftGoal: Identify Traditional / Cultural Healing Practice (s)Outcome: Met This Shift Problem: Relationship Based CareGoal: Develop / Initiate The Interdisciplinary Plan For DischargeOutcome: Met This ShiftGoal: Identify Support SystemsOutcome: Met This ShiftGoal: Patient / Family / S.O. Are Supportive And Accepting Of The Established Care GoalsOutcome: Met This Shift Problem: Culturally Responsive CareGoal: Provide Culturally Competent CareOutcome: Met This Shift Problem: Standards Of Nursing CareGoal: Maintain Standards Of Nursing CareDescription: * Verify Care Meets Standards For Assessment And Management Of Patient Status, Medications And Treatment, Safety, And Education.* Care Reviewed Regarding:> Education Of Patient, Family, S.O.> Verify Understanding Of Causes, Treatment And Follow-Up Care Related To Disease Process.> Administration And Coordination Of Medications And Treatments As Prescribed.> Assessment, Evaluation And Communication Of Status As Indicated By: Patient Condition, Treatment And / Or Patient Response.> Comfort Measures As Indicated By: Patient Subjective And Objective Responses.Outcome: Met This Shift Problem: Pain - AcuteGoal: An Acceptable Level Of ComfortDescription: Patient will have adequate relief of pain, be able to cope with unrelieved pain using pharmacological and non-pharmacological methods and be able to perform desired activities.Outcome: Met This Shift [id number] of Care1.2.840.614439.1.13.43.2.7.4.35626 0.08711851-75-72F37:30:08Plan of CareTXT1.2.840.803047.1.13.43.2.7.2.72 7879|[id number] for patient vbgd57550-8ZkiuHEGGVTwtvhe Health Xecjsy5947 [facility] Hospit[id number] 23-05-29T05:30:081.2.840.065448.1.72.3 .15|1.2.840.119939.1.13.43.2.7.2.88955 [id number] [facility] 2022-05-29 18:34:41 HYmmlkAjXEwocB/dByoFdf0VVcq/auUURGW0AA b1jrxn7wJxSgPrhtcYeFvYS+ND0467-55-89H0 8:34:41 Problem: Hospital Acquired Venous Thromboembolism (VTE)Goal: Absence of Hospital Acquired VTE (DVT or PE)Description: Patient will not develop VTE (DVT or PE) during the hospital stay.Outcome: Met This Shift Problem: Knowledge DeficitGoal: Increase Understanding of Causes and Management of Disease Process and TreatmentsDescription: Patient will be educated with accurate information, demonstrate knowledge and skills regarding the disease process, and the diagnostic and therapeutic plan.Outcome: Met This Shift Problem: Falls / InjuryGoal: Absence of fall or injuryDescription: Refer to the Documentation Flowsheet for Interventions.Outcome: Met This Shift Problem: Impaired Tissue IntegrityGoal: Impaired Tissue Will Be Free Of Any Openings, Swelling, Or DrainageDescription: Patient s impaired tissue will be absent of redness, swelling, drainage, and pain.Outcome: Met This Shift Problem: InfectionGoal: No Infections Will OccurDescription: Infection will be prevented and the risk will be reduced through optimal control measures (i.e., standard, contact, and droplet precautions).Vital signs and laboratory studies will be within defined limits, and there will not be evidence of purulent drainage from wounds, or positive cultures.Outcome: Met This Shift Problem: Healing EnvironmentGoal: Provide A Physical Environment Affirmed By The Patient To Be Safe And ComfortableOutcome: Met This ShiftGoal: Identify The Patient's Healing GoalOutcome: Met This ShiftGoal: Identify Traditional / Cultural Healing Practice (s)Outcome: Met This Shift Problem: Relationship Based CareGoal: Develop / Initiate The Interdisciplinary Plan For DischargeOutcome: Met This ShiftGoal: Identify Support SystemsOutcome: Met This ShiftGoal: Patient / Family / S.O. Are Supportive And Accepting Of The Established Care GoalsOutcome: Met This Shift Problem: Culturally Responsive CareGoal: Provide Culturally Competent CareOutcome: Met This Shift Problem: Standards Of Nursing CareGoal: Maintain Standards Of Nursing CareDescription: * Verify Care Meets Standards For Assessment And Management Of Patient Status, Medications And Treatment, Safety, And Education.* Care Reviewed Regarding:> Education Of Patient, Family, S.O.> Verify Understanding Of Causes, Treatment And Follow-Up Care Related To Disease Process.> Administration And Coordination Of Medications And Treatments As Prescribed.> Assessment, Evaluation And Communication Of Status As Indicated By: Patient Condition, Treatment And / Or Patient Response.> Comfort Measures As Indicated By: Patient Subjective And Objective Responses.Outcome: Met This Shift Problem: Pain - AcuteGoal: An Acceptable Level Of ComfortDescription: Patient will have adequate relief of pain, be able to cope with unrelieved pain using pharmacological and non-pharmacological methods and be able to perform desired activities.Outcome: Met This Shift [id number] of Care1.2.840.349740.1.13.43.2.7.4.39171 0.96842121-83-03F50:34:46Plan of CareTXT1.2.840.344650.1.13.43.2.7.2.72 7879|[id number] for patient iqyk53306-6BtscYE50825808Jroxcvsm Ngozi Osita [facility] [facility] Hospit[id number] 23-05-28T18:34:461.2.840.826496.1.72.3 .15|1.2.840.495756.1.13.43.2.7.2.71279 [id number] Octavia Agosto [facility] 2022-05-29 05:08:04 WDoYapDt2/tQjixDpjqI69oALtQjpNDaei6/51 UjabV3+wuS1+VF5rFnO7jJInuS9148-85-38D8 5:08:04 Problem: Hospital Acquired Venous Thromboembolism (VTE)Goal: Absence of Hospital Acquired VTE (DVT or PE)Description: Patient will not develop VTE (DVT or PE) during the hospital stay.Outcome: Met This Shift Problem: Knowledge DeficitGoal: Increase Understanding of Causes and Management of Disease Process and TreatmentsDescription: Patient will be educated with accurate information, demonstrate knowledge and skills regarding the disease process, and the diagnostic and therapeutic plan.Outcome: Met This Shift Problem: Falls / InjuryGoal: Absence of fall or injuryDescription: Refer to the Documentation Flowsheet for Interventions.Outcome: Met This Shift Problem: Impaired Tissue IntegrityGoal: Impaired Tissue Will Be Free Of Any Openings, Swelling, Or DrainageDescription: Patient s impaired tissue will be absent of redness, swelling, drainage, and pain.Outcome: Met This Shift Problem: InfectionGoal: No Infections Will OccurDescription: Infection will be prevented and the risk will be reduced through optimal control measures (i.e., standard, contact, and droplet precautions).Vital signs and laboratory studies will be within defined limits, and there will not be evidence of purulent drainage from wounds, or positive cultures.Outcome: Met This Shift [id number] of Care1.2.840.859632.1.13.43.2.7.4.44041 0.37156429-55-60P98:08:11Plan of CareTXT1.2.840.030706.1.13.43.2.7.2.72 7879|[id number] for patient [id number] Baby RNTriHealth [facility]25[address] [facility] Hospit[id number] 23-05-28T05:08:111.2.840.961948.1.72.3 .15|1.2.840.924738.1.13.43.2.7.2.24792 [id number] Tyron Enriquez [facility] 2022-05-28 18:31:40 kxK7pna3EmmBrku8gX8GRJzT/L3A6Evkuy8lgc c3/zTe95Lf/+SJ/cgJFv2fCsFo2657-54-88I2 8:31:40 Problem: Hospital Acquired Venous Thromboembolism (VTE)Goal: Absence of Hospital Acquired VTE (DVT or PE)Description: Patient will not develop VTE (DVT or PE) during the hospital stay.05/28/20221830 by Octavia Agosto RNOutcome: Met This Shift05/28/20221640 by Octavia Agosto RNOutcome: Met This Shift Problem: Knowledge DeficitGoal: Increase Understanding of Causes and Management of Disease Process and TreatmentsDescription: Patient will be educated with accurate information, demonstrate knowledge and skills regarding the disease process, and the diagnostic and therapeutic plan.05/28/20221830 by Octavia Agosto RNOutcome: Met This Shift05/28/20221640 by Octavia Agosto RNOutcome: Met This Shift Problem: Falls / InjuryGoal: Absence of fall or injuryDescription: Refer to the Documentation Flowsheet for Interventions.05/28/20221830 by Octavia Agosto RNOutcome: Met This Shift05/28/20221640 by Octavia Agosto RNOutcome: Met This Shift Problem: Impaired Tissue IntegrityGoal: Impaired Tissue Will Be Free Of Any Openings, Swelling, Or DrainageDescription: Patient s impaired tissue will be absent of redness, swelling, drainage, and pain.05/28/20221830 by Octavia Agosto RNOutcome: Met This Shift05/28/20221640 by Octavia Agosto RNOutcome: Met This Shift Problem: InfectionGoal: No Infections Will OccurDescription: Infection will be prevented and the risk will be reduced through optimal control measures (i.e., standard, contact, and droplet precautions).Vital signs and laboratory studies will be within defined limits, and there will not be evidence of purulent drainage from wounds, or positive cultures.05/28/20221830 by Octavia Agosto RNOutcome: Met This Shift05/28/20221640 by Octavia Agosto RNOutcome: Met This Shift Problem: Healing EnvironmentGoal: Provide A Physical Environment Affirmed By The Patient To Be Safe And Comfortable05/28/20221830 by Octavia Agosto RNOutcome: Met This Shift05/28/20221640 by Octavia Agosto RNOutcome: Met This ShiftGoal: Identify The Patient's Healing Goal05/28/20221830 by Octavia Agosto RNOutcome: Met This Shift05/28/20221640 by Octavia Agosto RNOutcome: Met This ShiftGoal: Identify Traditional / Cultural Healing Practice (s)05/28/20221830 by Octavia Agosto RNOutcome: Met This Shift05/28/20221640 by Octavia Agosto RNOutcome: Met This Shift Problem: Relationship Based CareGoal: Develop / Initiate The Interdisciplinary Plan For Discharge05/28/20221830 by Octavia Agosto RNOutcome: Met This Shift05/28/20221640 by Octavia Agosto RNOutcome: Met This ShiftGoal: Identify Support Systems05/28/20221830 by Octavia Agosto RNOutcome: Met This Shift05/28/20221640 by Octavia Agosto RNOutcome: Met This ShiftGoal: Patient / Family / S.O. Are Supportive And Accepting Of The Established Care Goals05/28/20221830 by Octavia Agosto RNOutcome: Met This Shift05/28/20221640 by Octavia Agosto RNOutcome: Met This Shift Problem: Culturally Responsive CareGoal: Provide Culturally Competent Care05/28/20221830 by Octavia Agosto RNOutcome: Met This Shift05/28/20221640 by Octavia Agosto RNOutcome: Met This Shift Problem: Standards Of Nursing CareGoal: Maintain Standards Of Nursing CareDescription: * Verify Care Meets Standards For Assessment And Management Of Patient Status, Medications And Treatment, Safety, And Education.* Care Reviewed Regarding:> Education Of Patient, Family, S.O.> Verify Understanding Of Causes, Treatment And Follow-Up Care Related To Disease Process.> Administration And Coordination Of Medications And Treatments As Prescribed.> Assessment, Evaluation And Communication Of Status As Indicated By: Patient Condition, Treatment And / Or Patient Response.> Comfort Measures As Indicated By: Patient Subjective And Objective Responses.05/28/20221830 by Octavia Agosto RNOutcome: Met This Shift05/28/20221640 by Octavia Agosto RNOutcome: Met This Shift Problem: Pain - AcuteGoal: An Acceptable Level Of ComfortDescription: Patient will have adequate relief of pain, be able to cope with unrelieved pain using pharmacological and non-pharmacological methods and be able to perform desired activities.05/28/20221830 by Octavia Agosto RNOutcome: Met This Shift05/28/20221640 by Octavia Agosto RNOutcome: Met This Shift [id number] of Care1.2.840.348028.1.13.43.2.7.4.31369 0.05086001-89-13T04:31:43Plan of CareTXT1.2.840.276021.1.13.43.2.7.2.72 7879|[id number] for patient iztk90153-0BxleFAEBDCmllhvSmallpox Hospital2525 [facility] Hospit[id number] 23-05-27T18:31:431.2.840.537594.1.72.3 .15|1.2.840.861742.1.13.43.2.7.2.44139 [id number] [facility] 2022-05-28 16:41:40 Crystal/SY7/0tviEdXk8h5SmgoS7+FlKeT9L PO5ts4smUoo+T1T9LwVP+eNRPa2953-01-57O5 6:41:40 Problem: Hospital Acquired Venous Thromboembolism (VTE)Goal: Absence of Hospital Acquired VTE (DVT or PE)Description: Patient will not develop VTE (DVT or PE) during the hospital stay.Outcome: Met This Shift Problem: Knowledge DeficitGoal: Increase Understanding of Causes and Management of Disease Process and TreatmentsDescription: Patient will be educated with accurate information, demonstrate knowledge and skills regarding the disease process, and the diagnostic and therapeutic plan.Outcome: Met This Shift Problem: Falls / InjuryGoal: Absence of fall or injuryDescription: Refer to the Documentation Flowsheet for Interventions.Outcome: Met This Shift Problem: Impaired Tissue IntegrityGoal: Impaired Tissue Will Be Free Of Any Openings, Swelling, Or DrainageDescription: Patient s impaired tissue will be absent of redness, swelling, drainage, and pain.Outcome: Met This Shift Problem: InfectionGoal: No Infections Will OccurDescription: Infection will be prevented and the risk will be reduced through optimal control measures (i.e., standard, contact, and droplet precautions).Vital signs and laboratory studies will be within defined limits, and there will not be evidence of purulent drainage from wounds, or positive cultures.Outcome: Met This Shift Problem: Healing EnvironmentGoal: Provide A Physical Environment Affirmed By The Patient To Be Safe And ComfortableOutcome: Met This ShiftGoal: Identify The Patient's Healing GoalOutcome: Met This ShiftGoal: Identify Traditional / Cultural Healing Practice (s)Outcome: Met This Shift Problem: Relationship Based CareGoal: Develop / Initiate The Interdisciplinary Plan For DischargeOutcome: Met This ShiftGoal: Identify Support SystemsOutcome: Met This ShiftGoal: Patient / Family / S.O. Are Supportive And Accepting Of The Established Care GoalsOutcome: Met This Shift Problem: Culturally Responsive CareGoal: Provide Culturally Competent CareOutcome: Met This Shift Problem: Standards Of Nursing CareGoal: Maintain Standards Of Nursing CareDescription: * Verify Care Meets Standards For Assessment And Management Of Patient Status, Medications And Treatment, Safety, And Education.* Care Reviewed Regarding:> Education Of Patient, Family, S.O.> Verify Understanding Of Causes, Treatment And Follow-Up Care Related To Disease Process.> Administration And Coordination Of Medications And Treatments As Prescribed.> Assessment, Evaluation And Communication Of Status As Indicated By: Patient Condition, Treatment And / Or Patient Response.> Comfort Measures As Indicated By: Patient Subjective And Objective Responses.Outcome: Met This Shift Problem: Pain - AcuteGoal: An Acceptable Level Of ComfortDescription: Patient will have adequate relief of pain, be able to cope with unrelieved pain using pharmacological and non-pharmacological methods and be able to perform desired activities.Outcome: Met This Shift [id number] of Care1.2.840.092102.1.13.43.2.7.4.58506 0.11415803-41-63U33:41:44Plan of CareTXT1.2.840.590228.1.13.43.2.7.2.72 7879|[id number] for patient qjri49705-3KdivPZSLSZitoam Health [address] [place], [place] [address]S[id number] 23-05-27T16:41:441.2.840.625266.1.72.3 .15|1.2.840.195496.1.13.43.2.7.2.28153 [id number] [facility] 2022-05-28 05:28:45 ue1o/cwn24iJ5qPfnA2ZlHc23H3JJzgmhTCZik q7bpSmJ9t0lQzUNk4PiUpe86EA1414-71-34H1 5:28:45 Problem: Hospital Acquired Venous Thromboembolism (VTE)Goal: Absence of Hospital Acquired VTE (DVT or PE)Description: Patient will not develop VTE (DVT or PE) during the hospital stay.Outcome: Met This Shift Problem: Knowledge DeficitGoal: Increase Understanding of Causes and Management of Disease Process and TreatmentsDescription: Patient will be educated with accurate information, demonstrate knowledge and skills regarding the disease process, and the diagnostic and therapeutic plan.Outcome: Met This Shift Problem: Falls / InjuryGoal: Absence of fall or injuryDescription: Refer to the Documentation Flowsheet for Interventions.Outcome: Met This Shift Problem: Impaired Tissue IntegrityGoal: Impaired Tissue Will Be Free Of Any Openings, Swelling, Or DrainageDescription: Patient s impaired tissue will be absent of redness, swelling, drainage, and pain.Outcome: Met This Shift Problem: InfectionGoal: No Infections Will OccurDescription: Infection will be prevented and the risk will be reduced through optimal control measures (i.e., standard, contact, and droplet precautions).Vital signs and laboratory studies will be within defined limits, and there will not be evidence of purulent drainage from wounds, or positive cultures.Outcome: Met This Shift [id number] of Care1.2.840.131521.1.13.43.2.7.4.53924 0.18442010-35-46P91:28:51Plan of CareTXT1.2.840.260765.1.13.43.2.7.2.72 7879|[id number] for patient oefp62934-5XsfnMPJXIPsdhdx Health Yskkgk1878 Natalie [id number] 23-05-27T05:28:511.2.840.082726.1.72.3 .15|1.2.840.767020.1.13.43.2.7.2.71844 [id number] [facility] 2022-05-27 14:32:23 5/5Mjp4wsnvDgOcuziV2syDz1NihFaU85TdD0S omwuUOCm7WYryX4skWEeNCZ7RR8580-38-27Z6 4:32:23 Problem: Falls / InjuryGoal: Absence of fall or injuryDescription: Refer to the Documentation Flowsheet for Interventions.Outcome: Met This Shift Problem: InfectionGoal: No Infections Will OccurDescription: Infection will be prevented and the risk will be reduced through optimal control measures (i.e., standard, contact, and droplet precautions).Vital signs and laboratory studies will be within defined limits, and there will not be evidence of purulent drainage from wounds, or positive cultures.Outcome: Met This Shift Problem: Healing EnvironmentGoal: Provide A Physical Environment Affirmed By The Patient To Be Safe And ComfortableOutcome: Met This ShiftGoal: Identify The Patient's Healing GoalOutcome: Met This ShiftGoal: Identify Traditional / Cultural Healing Practice (s)Outcome: Met This Shift Problem: Standards Of Nursing CareGoal: Maintain Standards Of Nursing CareDescription: * Verify Care Meets Standards For Assessment And Management Of Patient Status, Medications And Treatment, Safety, And Education.* Care Reviewed Regarding:> Education Of Patient, Family, S.O.> Verify Understanding Of Causes, Treatment And Follow-Up Care Related To Disease Process.> Administration And Coordination Of Medications And Treatments As Prescribed.> Assessment, Evaluation And Communication Of Status As Indicated By: Patient Condition, Treatment And / Or Patient Response.> Comfort Measures As Indicated By: Patient Subjective And Objective Responses.Outcome: Met This Shift Problem: Pain - AcuteGoal: An Acceptable Level Of ComfortDescription: Patient will have adequate relief of pain, be able to cope with unrelieved pain using pharmacological and non-pharmacological methods and be able to perform desired activities.Outcome: Met This Shift [id number] of Care1.2.840.338860.1.13.43.2.7.4.83836 0.24602335-10-08D56:32:30Plan of CareTXT1.2.840.746430.1.13.43.2.7.2.72 7879|[id number] for patient rvok23873-1CdhxQI034383325Rvtqixg Nikita [facility]INITri[facility] [facility] Hospital[id number] 23-05-26T14:32:301.2.840.624870.1.72.3 .15|1.2.840.615464.1.13.43.2.7.2.09741 [id number] Kavita Shelton RN [facility] 2022-05-27 05:52:57 8vxM+TOV5JuuP8Jz6wzCOR0LERvSYOwTtJ9v+x EGXt3y5V+7h3SDWNxbiylLE3aQ8755-38-42T8 5:52:57 Problem: Hospital Acquired Venous Thromboembolism (VTE)Goal: Absence of Hospital Acquired VTE (DVT or PE)Description: Patient will not develop VTE (DVT or PE) during the hospital stay.Outcome: Met This Shift Problem: Knowledge DeficitGoal: Increase Understanding of Causes and Management of Disease Process and TreatmentsDescription: Patient will be educated with accurate information, demonstrate knowledge and skills regarding the disease process, and the diagnostic and therapeutic plan.Outcome: Met This Shift Problem: Falls / InjuryGoal: Absence of fall or injuryDescription: Refer to the Documentation Flowsheet for Interventions.Outcome: Met This Shift Problem: Impaired Tissue IntegrityGoal: Impaired Tissue Will Be Free Of Any Openings, Swelling, Or DrainageDescription: Patient s impaired tissue will be absent of redness, swelling, drainage, and pain.Outcome: Met This Shift Problem: InfectionGoal: No Infections Will OccurDescription: Infection will be prevented and the risk will be reduced through optimal control measures (i.e., standard, contact, and droplet precautions).Vital signs and laboratory studies will be within defined limits, and there will not be evidence of purulent drainage from wounds, or positive cultures.Outcome: Met This Shift [id number] of Care1.2.840.901696.1.13.43.2.7.4.88656 0.47969195-67-22S83:53:04Plan of CareTXT1.2.840.597329.1.13.43.2.7.2.72 7879|[id number] for patient rdah29406-6TcorGVRMLNfatomSmallpox Hospital2525 [facility] Hospital[id number] 23-05-26T05:53:041.2.840.004469.1.72.3 .15|1.2.840.120083.1.13.43.2.7.2.20110 [id number] [facility] 2022-05-26 15:14:40 lJdpvWigZZ1qEq8uwnYrzzTseSTf8epQ9RFKG0 W8DZdZKE2fib+bIzJUMxGxA2rd5941-64-66Q4 5:14:40 Problem: Hospital Acquired Venous Thromboembolism (VTE)Goal: Absence of Hospital Acquired VTE (DVT or PE)Description: Patient will not develop VTE (DVT or PE) during the hospital stay.Outcome: Met This Shift Problem: Knowledge DeficitGoal: Increase Understanding of Causes and Management of Disease Process and TreatmentsDescription: Patient will be educated with accurate information, demonstrate knowledge and skills regarding the disease process, and the diagnostic and therapeutic plan.Outcome: Met This ShiftIntervention: Educate Patient/Family/Significant Other On Preventive Measures To Minimize Or Alleviate Potential EffectsNote: Education given on all tasks, medication and assessment done this shift. Patient verbalized understanding. Appropriate vending manager used. Problem: Falls / InjuryGoal: Absence of fall or injuryDescription: Refer to the Documentation Flowsheet for Interventions.Outcome: Met This ShiftIntervention: Initiate Fall Risk InterventionsNote: Iv abx given as per order, education on medication on infection ongoing. Patient will remain free form any infection prior to discharge. Patient is independently ambulatory Problem: Impaired Tissue IntegrityGoal: Impaired Tissue Will Be Free Of Any Openings, Swelling, Or DrainageDescription: Patient s impaired tissue will be absent of redness, swelling, drainage, and pain.Outcome: Met This Shift Problem: InfectionGoal: No Infections Will OccurDescription: Infection will be prevented and the risk will be reduced through optimal control measures (i.e., standard, contact, and droplet precautions).Vital signs and laboratory studies will be within defined limits, and there will not be evidence of purulent drainage from wounds, or positive cultures.Outcome: Met This ShiftIntervention: Administer Medication, Treatments And Therapies To Treat And / Or Prevent InfectionNote: Iv abx given as per order, education on medication on infection ongoing. Patient will remain free form any infection prior to discharge. Problem: Healing EnvironmentGoal: Provide A Physical Environment Affirmed By The Patient To Be Safe And ComfortableOutcome: Met This ShiftGoal: Identify The Patient's Healing GoalOutcome: Met This ShiftGoal: Identify Traditional / Cultural Healing Practice (s)Outcome: Met This Shift Problem: Relationship Based CareGoal: Develop / Initiate The Interdisciplinary Plan For DischargeOutcome: Met This ShiftGoal: Identify Support SystemsOutcome: Met This ShiftGoal: Patient / Family / S.O. Are Supportive And Accepting Of The Established Care GoalsOutcome: Met This Shift Problem: Culturally Responsive CareGoal: Provide Culturally Competent CareOutcome: Met This Shift Problem: Standards Of Nursing CareGoal: Maintain Standards Of Nursing CareDescription: * Verify Care Meets Standards For Assessment And Management Of Patient Status, Medications And Treatment, Safety, And Education.* Care Reviewed Regarding:> Education Of Patient, Family, S.O.> Verify Understanding Of Causes, Treatment And Follow-Up Care Related To Disease Process.> Administration And Coordination Of Medications And Treatments As Prescribed.> Assessment, Evaluation And Communication Of Status As Indicated By: Patient Condition, Treatment And / Or Patient Response.> Comfort Measures As Indicated By: Patient Subjective And Objective Responses.Outcome: Met This Shift [id number] of Care1.2.840.282780.1.13.43.2.7.4.87557 0.39346375-17-65F41:14:43Plan of CareTXT1.2.840.843613.1.13.43.2.7.2.72 7879|[id number] for patient [id number] M Bhakta RNTriHealth [facility]2525 [facility] HospitalOlrxCzmlxwyFdduqsxKBED1806992204ANOG30 23-05-25T15:14:431.2.840.524045.1.72.3 .15|1.2.840.991751.1.13.43.2.7.2.20877 [id number] No Montoya RN [facility] 2022-05-26 11:00:00 VmF41cioTUqW7Ix2kTAsjJoEOxfI1s9ijWnBYM gl7DNNQ6P4CmvlxGqFwyM0hMuh0225-32-47G1 1:00:00 05/26/22 1100 Intervention Education on freedom to choose and issued vendor list Yes Transportation Referrals Other Transportation medical necessity form N/A Current Support System Immediate family Coordination of Care Multidisciplinary team;Outside facilities Per consult to assist with drug treatment placement, SW connected with Pt to discuss options.ROSSY had contacted both [facility] [phone] and [facility] [phone] per Pt's request and was informed there were no beds available. [facility] only has available beds in locations outside [place] like [facility] and [place]. ROSSY suggested other treatment centers including "[facility]" [phone] who stated they have available beds and Pt is free to come to their facility in [place], ask for Layo with Intake Department. SW also provided [facility] as an option. Pt declined both options, stated he will talk with his family and [facility] [place].Pt will inform when decision is reached.Hayden Gurrola Work Hemstitching Machine Operator [facility] CenterOffice: [address]Ialyy: [id number] Note1.2.840.143186.1.13.43.2.7.4.82797 0.56053626-46-41G64:32:49Flowsheet NoteTXT1.2.840.608173.1.13.43.2.7.2.72 7879|[id number] for patient [id number] Hospital2525 [facility] HospitalMahxGdrmlftLrynyksADRJ8060489824JCGU18 23-05-25T11:32:491.2.840.370447.1.72.3 .15|1.2.840.076677.1.13.43.2.7.2.51185 [id number] [facility] 2022-05-25 14:25:36 VxXfA74zidR1k8AqdFAI8yHqGieMRtp9mVe0vx mg4PuFZs6oQto5BckAaN6jWOok8970-98-82M5 4:25:36 Problem: Hospital Acquired Venous Thromboembolism (VTE)Goal: Absence of Hospital Acquired VTE (DVT or PE)Description: Patient will not develop VTE (DVT or PE) during the hospital stay.Outcome: Met This Shift Problem: Knowledge DeficitGoal: Increase Understanding of Causes and Management of Disease Process and TreatmentsDescription: Patient will be educated with accurate information, demonstrate knowledge and skills regarding the disease process, and the diagnostic and therapeutic plan.Outcome: Met This Shift Problem: Falls / InjuryGoal: Absence of fall or injuryDescription: Refer to the Documentation Flowsheet for Interventions.Outcome: Met This Shift Problem: Impaired Tissue IntegrityGoal: Impaired Tissue Will Be Free Of Any Openings, Swelling, Or DrainageDescription: Patient s impaired tissue will be absent of redness, swelling, drainage, and pain.Outcome: Met This Shift Problem: InfectionGoal: No Infections Will OccurDescription: Infection will be prevented and the risk will be reduced through optimal control measures (i.e., standard, contact, and droplet precautions).Vital signs and laboratory studies will be within defined limits, and there will not be evidence of purulent drainage from wounds, or positive cultures.Outcome: Met This Shift Problem: Healing EnvironmentGoal: Provide A Physical Environment Affirmed By The Patient To Be Safe And ComfortableOutcome: Met This Shift Problem: Relationship Based CareGoal: Develop / Initiate The Interdisciplinary Plan For DischargeOutcome: Met This Shift Problem: Culturally Responsive CareGoal: Provide Culturally Competent CareOutcome: Met This Shift Problem: Standards Of Nursing CareGoal: Maintain Standards Of Nursing CareDescription: * Verify Care Meets Standards For Assessment And Management Of Patient Status, Medications And Treatment, Safety, And Education.* Care Reviewed Regarding:> Education Of Patient, Family, S.O.> Verify Understanding Of Causes, Treatment And Follow-Up Care Related To Disease Process.> Administration And Coordination Of Medications And Treatments As Prescribed.> Assessment, Evaluation And Communication Of Status As Indicated By: Patient Condition, Treatment And / Or Patient Response.> Comfort Measures As Indicated By: Patient Subjective And Objective Responses.Outcome: Met This Shift [id number] of Care1.2.840.216998.1.13.43.2.7.4.29160 0.44452544-97-65M25:25:49Plan of CareTXT1.2.840.825642.1.13.43.2.7.2.72 7879|[id number] for patient btmb88009-5DrglPY248839745Zdxy [facility]2525 [facility] Hospita[id number] 23-05-24T14:25:491.2.840.833770.1.72.3 .15|1.2.840.520571.1.13.43.2.7.2.48528 [id number] [facility] 2022-05-25 10:28:37 ULiCrPsH+fgsn8qA/5Xzycz9koGAweNpjElEIZ fx8sY5OSd+2gfgvnEcPbIGpqFA3746-53-64P9 0:28:37 THIS IS A STUDENT NOTEInfectious Diseases Consult NoteDate of Consult: 05/25/22 Reason for Consult: NTM abscessAdmission Date: 05/23/2022 Admission Diagnosis: CellulitisAssessment:Tej Guadalupe is a 37y.o. year old male with PMH of IVDU, polysubstance use disorder presenting with prolonged infection of the forearm at the site of IVDU injections despite multiple I&D's and course of bactrim/keflex. 05/19 cultures now growing fast growing AFB from most suspicious for rapid growing NTM (M chelonae, M fortuitum, M abscessus)#B/l forearm abscesses- Multiple abscesses s/p I&D at sites of injection- No fevers or leukocytosis- Cultures from OSH grew beta hemolytic strep (confirmed over phone)- S/p approximately one month of cephalexin and bactrim w/o improvement- 05/19 culture from right forearm distal ulnar abscess growing AFB - Plates have been sent to [facility] [place] [place] for identification and sensitivitiesRecommendations: - After careful consideration of the literature we recommend the following to cover for M chelonae, M fortuitum, and M abscessus: - Amikacin (per pharmacist dosing) - Tigecycline (100mg load followed by 50 BID, can step down to 50 daily if poorly tolerated) - Azithromycin (500 mg daily)- We will jesu antibiotics once ID is received from [facility] [place] [place]- Follow all cultures to completionThank you for this interesting consult. We will continue to followI discussed the case with infectious diseases attending, Dr. Obando.Venu RamosMedical Student, [address] History Obtained From: patient, electronic medical recordHistory of [...] vomiting, diarrhea, chest pain, cough, shortness of breath.He states that he normally smokes his meth and prior to the one instance a month ago he had not injected drugs for approximately one year. He denies skin popping. He buys his drugs from a dealer that he knows, and uses at home. He states that he uses clean needles. He dissolved the meth in a bottle cap [...] infections, but his knowledge on this is limited.He lives in a house with his sister [...] homeless. He has not travelled outside of [place] recently and does not have any sick contacts.He smokes half a pack of cigarettes a day, smokes marijuana occasionally, and has not used alcohol in the past month. Prior to that he would have 1-2 drinks per day.Antimicrobials:Vancomycin (05/23 - 05/25)Cephalexin (approximately 1 month ending 05/23)Bactrim (approximately 1 month ending 05/23)Microbiology: 05/24 Wound cultures pending05/23 Hepatitis panel negative05/23 HIV negative05/23 COVID negative05/19 Wound culture: 4+ AFBImaging:Xray forearm 05/19: Soft tissue lesion and surrounding edema in the anterior lateral distal forearm without bony involvement. Immunization history: There is no immunization history on file for this patient. Review of Systems: As per HPI, otherwise 10 point ROS negative.ObjectiveVitals: 05/24/22 1857 05/25/22 0031 05/25/22 0447 05/25/22 0812 BP: 110/65 117/76 113/72 110/75 Pulse: 74 70 61 68 Resp: 17 18 17 18 Temp: 97.5 F (36.4 C) 97.6 F (36.4 C) 97.6 F (36.4 C) 97.9 F (36.6 C) TempSrc: Oral Oral Oral Oral SpO2: 94% 97% 96% 92% Weight: Height: Physical Exam: General Appearance: alert, NAD, cooperative, answering questions appropriatelyHEENT: Head normocephalic, PERRL, EOMI, oropharynx normal, no erythema, supple, no thrushChest: atraumatic, nontenderLungs: CTAB, no wheezing, rales, or rhonchiHeart: RRR, no murmur. Abdomen: Soft, non-distended, non-tender. +BS. No masses, rebound, or guarding.Extremities: Three 1cm incisions on right forearm w/ packing s/p I&D, no purulent drainage. Minimal erythema, no warmth. One 4 cm incision on left proximal forearm s/p I&D w/ no purulent drainage. Skin: No other visible abnormalities, rashes, or lesions.Neurologic: A&Ox3, CN's grossly intact.Data: All labs, images, and data reviewed. [id number] Note1.2.840.929904.1.13.43.2.7.4.77270 0.08951713-85-32F96:34:01Student NoteTXT1.2.840.548405.1.13.43.2.7.2.72 7879|[id number] for patient zern82638-0KxxdKKXdumefws MedicineInternal MedicineTriHealth [facility] Hospital[address] [place], [place] [address]PctpKshrtrnEvmzfqoPDUA0931065489OODZ01 23-05-24T17:34:011.2.840.996307.1.72.3 .15|1.2.840.887747.1.13.43.2.7.2.66885 [id number] Internal Medicine [facility] 2022-05-25 03:18:34 CXYMdNm/plxXtjrGQA5aY0JwdCALRGnSJIx0he 1HXcSxY41RjovXqIBZWusBjCfN9817-12-77G2 3:18:34 Problem: Hospital Acquired Venous Thromboembolism (VTE)Goal: Absence of Hospital Acquired VTE (DVT or PE)Description: Patient will not develop VTE (DVT or PE) during the hospital stay.Outcome: Met This Shift Problem: Knowledge DeficitGoal: Increase Understanding of Causes and Management of Disease Process and TreatmentsDescription: Patient will be educated with accurate information, demonstrate knowledge and skills regarding the disease process, and the diagnostic and therapeutic plan.Outcome: Met This Shift Problem: Falls / InjuryGoal: Absence of fall or injuryDescription: Refer to the Documentation Flowsheet for Interventions.Outcome: Met This Shift Problem: Impaired Tissue IntegrityGoal: Impaired Tissue Will Be Free Of Any Openings, Swelling, Or DrainageDescription: Patient s impaired tissue will be absent of redness, swelling, drainage, and pain.Outcome: Met This Shift Problem: InfectionGoal: No Infections Will OccurDescription: Infection will be prevented and the risk will be reduced through optimal control measures (i.e., standard, contact, and droplet precautions).Vital signs and laboratory studies will be within defined limits, and there will not be evidence of purulent drainage from wounds, or positive cultures.Outcome: Met This Shift Problem: Healing EnvironmentGoal: Provide A Physical Environment Affirmed By The Patient To Be Safe And ComfortableOutcome: Met This ShiftGoal: Identify The Patient's Healing GoalOutcome: Met This ShiftGoal: Identify Traditional / Cultural Healing Practice (s)Outcome: Met This Shift Problem: Relationship Based CareGoal: Develop / Initiate The Interdisciplinary Plan For DischargeOutcome: Met This ShiftGoal: Identify Support SystemsOutcome: Met This ShiftGoal: Patient / Family / S.O. Are Supportive And Accepting Of The Established Care GoalsOutcome: Met This Shift Problem: Culturally Responsive CareGoal: Provide Culturally Competent CareOutcome: Met This Shift Problem: Standards Of Nursing CareGoal: Maintain Standards Of Nursing CareDescription: * Verify Care Meets Standards For Assessment And Management Of Patient Status, Medications And Treatment, Safety, And Education.* Care Reviewed Regarding:> Education Of Patient, Family, S.O.> Verify Understanding Of Causes, Treatment And Follow-Up Care Related To Disease Process.> Administration And Coordination Of Medications And Treatments As Prescribed.> Assessment, Evaluation And Communication Of Status As Indicated By: Patient Condition, Treatment And / Or Patient Response.> Comfort Measures As Indicated By: Patient Subjective And Objective Responses.Outcome: Met This Shift [id number] of Care1.2.840.352548.1.13.43.2.7.4.02690 0.27217834-43-94Y87:18:38Plan of CareTXT1.2.840.679651.1.13.43.2.7.2.72 7879|[id number] for patient gdyh67066-9TssmYQDKZXommnn Health Xxukkg9762 Nataile BushDapiOcqpqheJbpcvpzBJST0972558356EXQZ17 23-05-24T03:18:381.2.840.596847.1.72.3 .15|1.2.840.617408.1.13.43.2.7.2.03085 [id number] [facility] 2022-05-24 18:27:10 w7v8e/YLeRM1Uh9nwewUD3hkGaGnXjGRXLWKYL J6NC1tVgyNz4kmeVdIfp01eQJs3073-79-07I9 8:27:10 Problem: Hospital Acquired Venous Thromboembolism (VTE)Goal: Absence of Hospital Acquired VTE (DVT or PE)Description: Patient will not develop VTE (DVT or PE) during the hospital stay.Outcome: Met This Shift Problem: Knowledge DeficitGoal: Increase Understanding of Causes and Management of Disease Process and TreatmentsDescription: Patient will be educated with accurate information, demonstrate knowledge and skills regarding the disease process, and the diagnostic and therapeutic plan.Outcome: Met This Shift Problem: Falls / InjuryGoal: Absence of fall or injuryDescription: Refer to the Documentation Flowsheet for Interventions.Outcome: Met This Shift Problem: InfectionGoal: No Infections Will OccurDescription: Infection will be prevented and the risk will be reduced through optimal control measures (i.e., standard, contact, and droplet precautions).Vital signs and laboratory studies will be within defined limits, and there will not be evidence of purulent drainage from wounds, or positive cultures.Outcome: Met This Shift Problem: Healing EnvironmentGoal: Provide A Physical Environment Affirmed By The Patient To Be Safe And ComfortableOutcome: Met This Shift Problem: Relationship Based CareGoal: Develop / Initiate The Interdisciplinary Plan For DischargeOutcome: Met This Shift Problem: Culturally Responsive CareGoal: Provide Culturally Competent CareOutcome: Met This Shift Problem: Standards Of Nursing CareGoal: Maintain Standards Of Nursing CareDescription: * Verify Care Meets Standards For Assessment And Management Of Patient Status, Medications And Treatment, Safety, And Education.* Care Reviewed Regarding:> Education Of Patient, Family, S.O.> Verify Understanding Of Causes, Treatment And Follow-Up Care Related To Disease Process.> Administration And Coordination Of Medications And Treatments As Prescribed.> Assessment, Evaluation And Communication Of Status As Indicated By: Patient Condition, Treatment And / Or Patient Response.> Comfort Measures As Indicated By: Patient Subjective And Objective Responses.Outcome: Met This Shift [id number] of Care1.2.840.779435.1.13.43.2.7.4.44390 0.60407290-30-22S32:27:20Plan of CareTXT1.2.840.539071.1.13.43.2.7.2.72 7879|[id number] for patient akun90601-7LamqLDDIRIdbljl Health Vwcofo7075 [facility] HospitalT[id number] 23-05-23T18:27:201.2.840.857883.1.72.3 .15|1.2.840.051665.1.13.43.2.7.2.61753 [id number] [facility] 2022-05-24 11:04:15 uJXHwMPQ8IfozAlHqzay0QBvocfusw8J+zlGDP yuMSvM7J70eeKm0umFLJqo2d/z4468-12-88Q2 1:04:15 Case management note:Chart reviewed for medical necessity and hospitalization 05/24/22 1103 Intervention Disease Management Meets criteria for Inpatient Medical Necessity Screening Concurrent review([id number]) Patient meet inpatient criteriaPlease place order Admit to InpatientThank Samanta diggs MSN, ACM-RNClinical Nurse Case ManagerOhio State Harding Hospital | [address] | [place], [place] [address]C: [phone] |F: [phone]| [id number] Note1.2.840.819823.1.13.43.2.7.4.11452 0.09818828-00-56Q96:04:38Flowsheet NoteTXT1.2.840.516074.1.13.43.2.7.2.72 7879|[id number] for patient zmhe07644-9DzqbRJ52755821Iajp S Jacob RNTriHealth Bethesda [facility] Hospital2525 [facility] HospitalTxcd[id number] 23-05-23T11:04:381.2.840.273180.1.72.3 .15|1.2.840.128927.1.13.43.2.7.2.46879 [id number] Samanta Hassan [facility] 2022-05-24 08:50:00 pcLzcaiXLJcRprny2tT7kOl/+nj3+DCF+DQfzX 8zdAHu+12DTjtBM4IXz0w/UoCO1013-12-88K2 8:50:00 05/24/22 0850 Charting Type Charting Type Initial Patient Status Current Status Observation New Status Recommendation Observation Patient Information Source of Information Patient;Other (Comment) County of Residence [place] [facility] [place] Immigration Status: [place] Citizen Behavior Alert;Oriented Health Care Concerns Change in health care status Discharge Planning Assessment Current Residence House Prior ADL Independent Current ADL Partial dependent Current Household Composition Family members Current Support System & Aniticipated Discharge Support System Immediate family Current Home Care Services No Current DME Services No Current Provider Services No Patient Expects to be Discharged to: House Anticipated Discharge Support System Immediate family Transportation on discharge Family/Friend Transportation for follow-up appointments Family/Friend Anticipated Discharge Date 05/24/22 Access to food Yes General Family Information Patient Marital Status Single Primary Training Officer Lydia Guadalupe (father) [phone] Income Information Income Source Unemployed Financial Resources Funding Source/Insurance Status Self-Pay Transportation Transportation Needs Private/family transportation Legal Information Legal Concerns No unmet needs Name, surrogate decision maker Lydia Guadalupe (father) [phone] Decision maker contact # Lydia Guadalupe (father) [phone] Mental Health Mental Health Concerns No past / current concerns Acuity Level Medical Acuity Category 3 Telecommunication Operator Acuity Mild Strengths and Limitations Patient Strengths Willing/Able to participate in care;Intact cognition Patient Limitations Alteration in functional status Discharge Plan Resources needed Health education;Disease Management;Inpatient Education Discussion of Discharge Plan Patient Response to Discharge Plan Agreed Healthcare Team Collaboration Multidisciplinary team Pt identified self by way of name and , from common-law marriage, has two children, was residing with father at the address on [address] [place] [address], however, will be discharging to sister's upon discharge from the hospital. Pt did not remember the address of sister's house.Family will provide discharge transportation.Healthcare Agent: Lydia Guadalupe (father) [phone].Hayden Gurrola Work Hemstitching Machine Operator [facility] CenterOffice: [address]Xgeiw: [id number] 9175835Frefgoqoh Note1.2.840.914154.1.13.43.2.7.4.09807 0.00357435-73-33Z17:59:01Flowsheet NoteTXT1.2.840.071216.1.13.43.2.7.2.72 7879|[id number] for patient nedf04329-2OcmiSIGJQVcnkvi Health Hhaxnu9485 [facility] Hospital[id number] 23-05-23T10:59:011.2.840.331825.1.72.3 .15|1.2.840.198014.1.13.43.2.7.2.26615 [id number] [facility] 2022-05-24 06:45:53 W+vsL+Rftk7Zeuul8AEAlPl3dHcbGdSAjGom5c WJSRsOz5NN4a3wpWUahO+ZvuC15143-47-67G7 6:45:53 Problem: Falls / InjuryGoal: Absence of fall or injuryDescription: Refer to the Documentation Flowsheet for Interventions.Outcome: Met This Shift Problem: Impaired Tissue IntegrityGoal: Impaired Tissue Will Be Free Of Any Openings, Swelling, Or DrainageDescription: Patient s impaired tissue will be absent of redness, swelling, drainage, and pain.Outcome: Met This Shift Problem: InfectionGoal: No Infections Will OccurDescription: Infection will be prevented and the risk will be reduced through optimal control measures (i.e., standard, contact, and droplet precautions).Vital signs and laboratory studies will be within defined limits, and there will not be evidence of purulent drainage from wounds, or positive cultures.Outcome: Met This Shift [id number] of Care1.2.840.113524.1.13.43.2.7.4.92113 0.65991873-23-35G11:46:15Plan of CareTXT1.2.840.405663.1.13.43.2.7.2.72 7879|[id number] for patient skzo45388-9UambXWAZRRpimnw Health Zxzuck0125 [facility] Hospit[id number] 23-05-2306:46:151.2.840.590387.1.72.3 .15|1.2.840.999430.1.13.43.2.7.2.52335 [id number] [facility] 2022-05-24 04:17:46 hNIqj/dX/OkgFNjPXBNSTsjVbF8tYLWr2UIP5f NbZ8JNNSNZVJ4dMFU4E48awEDC0916-87-97V5 4:17:46 Patient transferred to . Patient refused wheelchair for transfer. Report given to Hanh MARTINI. Patient AAOx4. Ambulates independently. Respirations clear and unlabored. Skin appropriate to ethnicity. Skin intact with abscesses to the right and left forearms. 22324-4Dssqnlxzu department McbmQK1128-05-13Y25:19:07[facility] department NoteTXT1.2.840.595640.1.13.43.2.7.2.72 7879|[id number] for patient gqaq08427-4Yqvijmiet department [id number] [facility] [place], [place] [id number] 23-05-2304:19:071.2.840.077312.1.72.3 .15|1.2.840.552287.1.13.43.2.7.2.81906 [id number] Lupillo [facility] 2022-05-24 02:00:00 W/DeeIWQFsnmh1vYLFXB7CBOtxsZbf4mrtdfF1 5NvLPqdlp1gyqFEdcsxM2Xr+UX4873-41-61Y4 2:00:00 Pt resting in room quietly, respirations even nonlabored, no acute distress. 32919-0Mgpddgifx[address] [place] [address] XqsvJH0792-47-57I95:07:26[facility] department NoteTXT1.2.840.545693.1.13.43.2.7.2.72 7879|[id number] for patient qwtu21395-4Pceusjlfb department [id number] [address] [id number] 23-05-2305:07:261.2.840.582784.1.72.3 .15|1.2.840.344167.1.13.43.2.7.2.21483 [id number] [facility] 23:58:21 bsIIqGot5LFKBv//VXpBwUbYMPRnqcuP/ohzIR GfazqQ3q86Al+rZSxOpMJ/yzBl7838-81-57C7 3:58:21 [place] brought [place] [address]-1Aqzpaobkh department KgclRM3869-72-64S98:58:35[facility] department NoteTXT1.2.840.320775.1.13.43.2.7.2.72 7879|[id number] for patient meeq05438-0Psiappwtz department [facility] [facility] Hospit[id number] 23-05-22T23:58:351.2.840.083943.1.72.3 .15|1.2.840.106435.1.13.43.2.7.2.89312 [id number] [facility] 2022-05-23 22:47:00 iPMshX78DwXMMohcCgk+qKKH7g7ZlC7hbbWPtL Q6WA0+UD/7gc9VNbE36RBC2q562031-32-26H9 2:47:00 Patient Tej Guadalupe, 37 y.o. male, presented to the with 3 abscesses to right forearm and 1 to the left forearm. Patient verbalizes he used to abuse IV drugs but has not been using for a month. Patient states abscesses have been getting larger over the past week. Abscess on right forearm warm and tender to touch. No drainage noted from abscesses at this time. Patient remains afebrile. Patient denies nausea and vomiting. 2+ radial pulses bilaterally. Patient is exhibiting pain rated at a 7/10 to upper extremities in area of abscesses. Patient denies headache but states his head feels sensitive. Denies SOB, dizziness, fever, constipation, or diarrhea. Skin dry, intact, and appropriate to ethnicity. Patient AAOx4. Respirations clear to auscultation bilaterally. Respirations even and unlabored. S1 and S2 noted. Heart rhythm regular. Capillary refill <3 seconds. Stomach non-tender and non-distended. Patient is able to ambulate independently and move all extremities spontaneously. Patient pending medical bed admission. 75739-7Ukkojzyxs[address] [place] [address] YkmoTT1384-74-35J78:20:22[facility] NoteTXT1.2.840.091087.1.13.43.2.7.2.72 7879|[id number] for patient slqe12948-6Vrcxkkssk[address] [place], [place] [id number] 23-05-2301:20:221.2.840.479803.1.72.3 .15|1.2.840.553687.1.13.43.2.7.2.48531 [id number] [facility] 2022-05-23 22:11:16 TS8Z8v1XOicbJZi0hQCNy6ad2vtH9pASKTLqrt M3deMPY2WjQSR9fwYJCKTOGUQE4930-96-14B7 2:11:16 Pt ambulatory to B4 for admission with triage nurse. Pt A&OX4, respirations even nonlabored, no acute distrress/no airway distress. [address]250-3Iebjklryt[address] BinbIE9041-80-42G38:11:[address] department NoteTXT1.2.840.868695.1.13.43.2.7.2.72 7879|[id number] for patient gvsc40614-1Wmxeczuwg[address] [place], [place] [id number] 23-05-22T22:11:431.2.840.693643.1.72.3 .15|1.2.840.597540.1.13.43.2.7.2.96721 [id number] [facility] 2022-05-23 13:29:36 WGMtL/OYiXNnt3+OK81oqQeBvkQ2EaUaA9SMH8 WcO7gZxd5Svdb44I+MjqLBKnA58548-56-34V8 3:29:36 Images from the original note were not included.History Chief Complaint Patient presents with Abscess 37 yo M with PMH of bipolar disorder and substance abuse (suboxone, clonapin, crystal meth, hydrocodone) currently in detox program presents with multiple right forearm multiple abscesses x1 month, currently on PO abs, with worsening x3 days. Reports 2 new abscesses developing on right forearm and 1 on left forearm. Denies any IVDU x1 month. Has been on PO abx "for about a month" per pt. Seen at [facility] on 05/19/2022 for same issue. I&D done of 1 abscess. Pt reports the abscess that was drained is now spontaneously draining yellow fluid. Discharged with continuation of previous abx course as given previously (cephalexin 500 mg 4 times daily, TMP-SMX 1 tablet q 12 hours). Per chart review, CBC without leukocytosis, ESR/CRP WNL. FA XR with soft tissue lesion and surrounding edema without bony involvement. Denies fevers, N/V, numbness, rash, hx endocarditis. History provided by: Medical records and patientLanguage vending manager used: No AbscessLocation: Shoulder/armShoulder/arm abscess location: R forearm and L forearmSize: 1 cmAbscess quality: fluctuance, induration, redness and warmth Red streaking: no Duration: 4 weeksProgression: WorseningChronicity: NewContext: injected drug use Context: not diabetes Relieved by: NothingIneffective treatments: Oral antibiotics and draining/squeezingAssociated symptoms: no fever, no nausea and no vomiting Risk factors: prior abscess Medical History No past medical history documented. Surgical History None Family Medical History None Social History Tobacco History Smoking StatusCurrent Every Day Smoker Smoking Frequency1 pack/day Smokeless Tobacco UseNever Used Tobacco Comment1 pack/day Alcohol History Alcohol Use StatusNever Drug Use Drug Use StatusYes TypesMethamphetamines Commentlast use- last week Sexual Activity Sexually ActiveNot Asked Activities of Daily Living Not Asked Review of Systems Constitutional: Negative for chills and fever. Eyes: Negative for discharge and redness. Gastrointestinal: Negative for nausea and vomiting. Genitourinary: Negative for dysuria and hematuria. Musculoskeletal: Positive for arthralgias (right forearm pain). Negative for neck stiffness. Skin: Positive for wound. Neurological: Negative for dizziness, syncope and light-headedness. Psychiatric/Behavioral: Negative for confusion. Physical Exam BP 127/77 | Pulse 99 | Temp 98.9 F (37.2 C) | Resp 18 | Ht 5' 8" (1.727 m) | Wt 81.6 kg | SpO2 95% | BMI 27.35 kg/m2 Physical ExamConstitutional: General: He is not in acute distress. Appearance: He is not toxic-appearing. HENT: Head: Normocephalic and atraumatic. Nose: No congestion or rhinorrhea. Eyes: Extraocular Movements: Extraocular movements intact. Conjunctiva/sclera: Conjunctivae normal. Pupils: Pupils are equal, round, and reactive to light. Cardiovascular: Rate and Rhythm: Normal rate and regular rhythm. Pulses: Normal pulses. Heart sounds: Normal heart sounds. Pulmonary: Effort: Pulmonary effort is normal. Breath sounds: Normal breath sounds. No wheezing. Abdominal: General: Bowel sounds are normal. Palpations: Abdomen is soft. Tenderness: There is no abdominal tenderness. There is no guarding or rebound. Musculoskeletal: General: No swelling or deformity. Normal range of motion. Cervical back: Normal range of motion. Skin: General: Skin is warm and dry. Findings: Abscess and wound present. No rash. Comments: 2 fluctuant abscesses on R forearm, 1 fluctuant abscess on L forearm. +Drainage anterior forearm. No streaking. Neurological: General: No focal deficit present. Mental Status: He is alert and oriented to person, place, and time. Psychiatric: Mood and Affect: Mood normal. Behavior: Behavior normal. Right anterior forearmRight posterior forearmLeft anterior forearmProcedures ProceduresED Course ED Course as of 05/23/22 2339 MonMay 23, 2022 1432 Sed Rate: 11 [MR] 1437 Spoke with hand (plastics), they will follow. [MR] 1525 C-Reactive Prot: 0.3 [MR] 1816 Plastics requested HIV and hepatitis panel [AA] 1843 Medicine team aware [MR] 2214 A2M for IV abx with hand (plastics) following for R forearm abscesses and cellulitis in the setting of IVDU. [MR] 2339 Admit to med for abscesses with plastics following [JU] ED Course User Index[AA] Alissa Avitia MD[JU] Chicho Painter, MD[MR] Orlando Donald PA MDMNumber of Diagnoses or Management OptionsCellulitis of right upper extremity: new, needed workupCutaneous abscess of right upper extremity: new, needed workupDiagnosis management comments: Assessment/Plan: 37y.o. male with PMH of bipolar disorder and substance abuse (suboxone, clonapin, crystal meth, hydrocodone) currently in detox program presents with multiple right forearm multiple abscesses x1 month, currently on PO abs, with worsening x3 days. EC work-up as below. #Forearm Abscesses- DDx: NSTI, cellulitis, abscess, compartment syndrome, SJS, TEN- hx and exam consistent with cellulitis vs abscess from IVDU with continuation of formation of abscesses and +drainage, now c/f failed PO outpatient tx- no bullae, mouth lesions, skin sloughing suggestive of SJS or TEN- neurovascularly intact, no trauma, low c/f compartment syndrome- CBC without leukocytosis, BMP pending- ESR/CRP added to w/u- IV vanco- US team to perform MSK US of fluctuant abscesses for possible drainage- hand consultDisposition:- Continue to monitor in the emergency departmentNAVEEN Lane-[facility] PA FellowProvider #[id number]/:04 PM Clinical Impression 1. Cutaneous abscess of right upper extremity 2. Cellulitis of right upper extremity PROVIDER REASSESSMENT NOTEI reexamined the patient Tej Guadalupe.Latest vital signs are:Vitals: 05/23/22 1053 05/23/22 1510 BP: 127/77 141/86 Pulse: 99 75 Resp: 18 18 Temp: 98.9 F (37.2 C) 98.1 F (36.7 C) SpO2: 95% 100% Weight: 81.6 kg Height: 5' 8" (1.727 m) Interval Progress: Spoke with hand (plastics) and they will follow. ED US team conducting MSK and bedside echo. Pt would benefit from admission for IV abx and hand consultation for possible surgical intervention of forearm cellulitis with abscesses. The patient s condition is stable.Current clinical impressions include:1. Cutaneous abscess of right upper extremity 2. Cellulitis of right upper extremity Plan: Hospitalize with the following plan of care: IV antibiotics, possible operation / procedure (abscess drainage, surgical washout) and further evaluation and managementMorChoco Andrade 2021 3:26 PM ssociated attestation - Jose F Reyes MD - 08/01/2022 11:46 AM CDT ATTENDING PHYSICIAN STATEMENT (ADVANCED PRACTICE PROVIDER SHARED VISIT)I personally examined Tej Guadalupe and performed the warner portions of the history taking and physical examination.I reviewed the past medical records, nursing notes, laboratory results, radiology results, and BERN[facility]O's note and agree with the findings as documented in the B[facility]'s note.Pt is a 37y.o. male with hx of BPD, substance abuse who presents with R forearm abscesses, worsening despite Po abx. 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 Cutaneous abscess of right upper extremity 3. Cellulitis of right upper extremity 4. Tobacco user 5. Benzodiazepine dependence 6. Psychiatric disorder 7. Uncomplicated opioid dependence Plan: labs, XR hand, plastics consulted.Per plastic surgery, they recommended admission to medicine for IV abx in the setting of IVDU. Jose F Reyes MD August 01, 2022 11:44 WH60207-1Rxywuldnf Emergency department RtwfCJ827872Ezywuib, Stephen A1.2.840.036887.1.13.43.2.7.2.920175Fh bxhbbImlpsbiKDT4241-97-42R53:46:02[facility] Emergency department NoteTXT1.2.840.086059.1.13.43.2.7.2.72 7879|[id number] for patient idqj07294-2Wfckfnpdk department NoteLNTriHealth [facility]25[address] [facility] Hospit[id number] 23-07-311:46:021.2.840.264779.1.72.3 .15|1.2.840.911851.1.13.43.2.7.2.90744 [id number] [facility] 2022-05-23 10:59:29 0ueJL/JpOug+qmgr2jTOyfR/wa95ZiiP9lNkGq F2QhTczonEq0MOC26/jpIuifci5071-35-13O3 0:59:29 ABC intact. Resp even and unlabored. Skin warm and dry with color appropriate to ethnicity. Pt in stable condition. NAD. Verified name and verbally with pt and armband. Informed pt to notify this RN or staff if wanting to leave, and/or experiencing any changes in condition. 26162-0Jcscifwxf department Triage yiemHT5463-37-98W72:01:33[facility] department Triage noteTXT1.2.840.441421.1.13.43.2.7.2.72 7879|[id number] for patient njne60503-5Cxxogoamz department [id number] Denice Ahmadi RNTaylor [place] [address] [facility] Hospit[id number] 23-05-22T11:01:331.2.840.724986.1.72.3 .15|1.2.840.665955.1.13.43.2.7.2.61368 [id number] Mary Jane Cheung RN [facility] 2022-05-23 10:50:34 6YjqHbaRKzfe6v3oWTdaXNW6wgvtJPJhJU86sM jKV6j3Izq81k5Miud8SId/K/fJ9678-74-79K7 0:50:34 MEDICAL SCREENING EXAMINATION PROVIDER NOTEI evaluated and initiated the medical screening examination of patient Tej Guadalupe.Warner Symptoms and FindingsThere were no vitals filed for this visit. Patient reports he had an I&D of the R forearm/wrist 1 month ago, here for swelling to that area. He denies fever or chills. He reports prior use of injected methamphetamines. History: meth useExam: VS noted, stable GEN: alert, NAD, nontoxicPULM: speaking in complete sentences, no respiratory distressCV: distal pulses intact, no cyanosisMSK: ambulatory with steady gait, moving all extremitiesR distal forearm: fluctuance, areas of prior masses with serous drainageLabs Reviewed - No data to displayAssessmentFurther evaluation will be necessary in order to determine if an emergency medical condition exists. The patient will continue in process until such time they are deemed ready for disposition.The following have been ordered to facilitate evaluation:Laboratory StudiesPain AssessmentNo intervention required.The patient is waiting to be roomed at this time.Billy Aguayo 2021 10:52 AM 04111-4Gmhdnailb department TiwqAH8962-24-40R69:53:43[facility] department NoteTXT1.2.840.922578.1.13.43.2.7.2.72 7879|[id number] for patient qsli13030-0Rsbdpozth department NoteLNNurse PractitionerNurse PractitionerTriHealth [facility]25[address] [facility] Hospit[id number] 23-05-22T10:53:431.2.840.342267.1.72.3 .15|1.2.840.712291.1.13.43.2.7.2.83935 [id number] Nurse Practitioner [facility] 2022-05-22 20:38:38 8gK3EChejB/rwYrlvpNczaNj3rOK58J504t76l SDzvM+7BUS+Bk43KdhtBvxGtPC5749-49-83N5 0:38:38 Tej Guadalupe called within waiting room and did not answer x3. Patient name paged overhead within the Emergency Department without response. Waiting rooms, ED care areas and restrooms visualized and patient not found. 64248-8Jdlkivmmf department NeqkOT5745-95-74C29:38:46[facility] department NoteTXT1.2.840.237437.1.13.43.2.7.2.72 7879|[id number] for patient mtcv09862-4Ourggcpux department [id number] Martin RN[address] [id number] 23-05-21T20:38:461.2.840.195342.1.72.3 .15|1.2.840.755241.1.13.43.2.7.2.32191 [id number] Michelle Cuenca RN [facility] 2022-05-22 13:26:33 LF6Zszzqv07ForF0gUzZcyaQIloxCmrgNMYPFi nEOjn70RM0pIaXHqsKbR96Xvfq2765-73-56B6 3:26:33 MEDICAL SCREENING EXAMINATION PROVIDER NOTEI evaluated and initiated the medical screening examination of patient Tej Guadalupe.Warner Symptoms and FindingsVitals: 05/22/22 1327 05/22/22 1328 BP: 128/82 Pulse: 95 Temp: 97.5 F (36.4 C) SpO2: 97% Weight: 81.6 kg Height: 5' 8" (1.727 m) Verbal Pain Rating*: 7 History: patient reports that she needs to have a few abscesses to his right arm. He was seen for this on 05/19/2022. He has a h/lo IVDU. He last injected a month ago. Exam: AlertWell appearing In NADAmbulatory Speech is coherent, responses appropriateMinimal localized edema noted to the righ forearmThere is no erythema to the armLabs Reviewed - No data to displayAssessmentFurther evaluation will be necessary in order to determine if an emergency medical condition exists. The patient will continue in process until such time they are deemed ready for disposition.The following have been ordered to facilitate evaluation:Laboratory StudiesPain AssessmentPain medication ordered.The patient is waiting to be roomed at this time.Billy Novak 2021 1:29 PM 30033-7Hikbgjtdv department IyrmUD2537-27-86U37:33:27[facility] department NoteTXT1.2.840.507458.1.13.43.2.7.2.72 7879|[id number] for patient iwsc87585-1Zhjbothpr department NoteLNNurse PractitionerNurse PractitionerTriHealth [facility]25[address] [facility] Hospit[id number] 23-05-213:33:271.2.840.682922.1.72.3 .15|1.2.840.677311.1.13.43.2.7.2.72480 [id number] Nurse Practitioner [facility] 2022-05-19 19:48:02 cRkg5W2LmEfN0uP3JC0HV6KJWXJ+3atkRXnoYy Lgl7chEcxWolvDaviROVR/zsHA3617-37-48I8 9:48:02 Pt AAOX4. Discharge instructions and prescription given, pt verbalizes understanding. Escorted to checkout with belongings in hand. Ambulatory with steady gait. VSS. Respirations even and unlabored. NAD upon departure. 87430-6Afsisffpa department NlrxSA3462-28-49O83:48:18[facility] department NoteTXT1.2.840.253648.1.13.43.2.7.2.72 7879|[id number] for patient uuur40084-9Wmqduhsro[address] PmjmEA603814408Xcodhm Myles MARTINITriHealth Bethesda [facility] Hospital25[address] [facility] Hospit[id number] 23-05-189:48:181.2.840.276312.1.72.3 .15|1.2.840.903673.1.13.43.2.7.2.30739 [id number] Jah Bueno RN [facility] 2022-05-19 19:35:00 lvSBkpLD75G5/Q/Bg/HJ2HyyKoGFWPQpVZHASd KL4BZXFrJj5uzraFPAE4u31ov74132-82-79L4 9:35:00 37 yo pt comes to ED w/ Chief Complaint Patient presents with Mass Right fa- multiple masses r/t shooting up crystal meth Withdrawal Reports he hasn't used in the last 7 days- Vicodin, suboxone & klonopin Pt requesting "just a little benzodiazepine to help me" Pt is A&Ox4. Speech clear and appropriate. PERRL. Pt is ambulatory w/ steady gait. Peripheral pulses +2 palpable. Pt has redness, swelling and tenderness to RUE. Pt has bandaids to drainage sites. No active bleeding at this time. RR even and unlabored. Lungs CTA. Abd soft non tender, bowel sounds present. Cap refill < 3 secs. 5/5 strength to BUE and BLE. Pt denies MCCARTHY, CP, fever, chills, n/v/d at this time Pt Is pending d/c 35554-0Aewfwhwlg department TxkuJC9944-18-77K58:48:50[facility] department NoteTXT1.2.840.937107.1.13.43.2.7.2.72 7879|[id number] for patient bnda72013-6Vrsunpdvx department [facility]25[address] [facility] Hospit[id number] 23-05-18T19:48:501.2.840.113794.1.72.3 .15|1.2.840.730265.1.13.43.2.7.2.44795 [id number] [facility] 2022-05-19 15:56:27 KZx5w+KTqyYPGCELbgFTGnkgHb6sD3wkTRnwww duNJ03C+WwtIuikboIIZS5Jf8k3173-95-31T8 5:56:27Associated Order(s): I&D of AbscessPost-Procedure Diagnose(s): Right wrist pain History Chief Complaint Patient presents with Mass Right fa- multiple masses r/t shooting up crystal meth Withdrawal Reports he hasn't used in the last 7 days- Vicodin, suboxone & klonopin Pt requesting "just a little benzodiazepine to help me" 37 year old man in recovery program and PMH substance abuse (suboxone, clonapin, crystal meth with 1 week Hx, hydrocodone (obtained from doctor)), anxiety disorder, panic disorder, bipolar disorder Tx with Zyprexa and Prozac presenting with pain and new mass on R arm and feels withdrawal symptoms from benzos. Approx 1 mo ago, injected meth into right wrist in several injection sites, came to hospital for cellulitis and had procedure (surgical I&D) ([place]), treated with cellulitis and sent home with pain medication. At home, over the span of the next couple of weeks, used thumbtack self-sterilized to open two sores, has multiple boils, has drained pus/blood and has stopped draining blood. Migrating up arm and increased in level of pain. Went to the hospital and put on more Abx.Medications - gabapentin, Abx (Bactrim, cefalexin, clonazepam, fluoxetine, olanzapine, gabapentin)Allergies - NKDAGave 0.25 mg clonazepam Medical History No past medical history documented. Surgical History None Family Medical History None Social History Tobacco History Smoking StatusCurrent Every Day Smoker Smoking Frequency1 pack/day Smokeless Tobacco UseNever Used Tobacco Comment1 pack/day Alcohol History Alcohol Use StatusNever Drug Use Drug Use StatusYes TypesMethamphetamines Commentlast use- last week Sexual Activity Sexually ActiveNot Asked Activities of Daily Living Not Asked Review of Systems Constitutional: Negative for fever. HENT: Negative for sore throat. Respiratory: Negative for cough and shortness of breath. Cardiovascular: Negative for chest pain. Gastrointestinal: Negative for abdominal pain, diarrhea and nausea. Genitourinary: Negative for dysuria. Neurological: Positive for numbness. Negative for weakness. Physical Exam BP 136/92 | Pulse (!) 115 | Temp 97.9 F (36.6 C) | Resp 20 | Ht 5' 8" (1.727 m) | Wt 81.6 kg | SpO2 96% | BMI 27.37 kg/m2 Physical ExamConstitutional: Appearance: He is normal weight. HENT: Head: Normocephalic and atraumatic. Nose: Nose normal. Eyes: Extraocular Movements: Extraocular movements intact. Conjunctiva/sclera: Conjunctivae normal. Cardiovascular: Rate and Rhythm: Regular rhythm. Tachycardia present. Comments: S1 and S2 auscultated without murmurs, gallops, or rubsPulmonary: Effort: Pulmonary effort is normal. Breath sounds: Normal breath sounds. Abdominal: General: Abdomen is flat. Bowel sounds are normal. Palpations: Abdomen is soft. Tenderness: There is no abdominal tenderness. Musculoskeletal: General: Swelling present. Cervical back: Normal range of motion. Comments: Open wounds and 4 tender, fluctuant masses on RUE, IV track perera bilaterally Skin: General: Skin is warm. Findings: Erythema present. Neurological: General: No focal deficit present. Mental Status: He is alert and oriented to person, place, and time. Comments: Numbness of the L ring finger, otherwise no deficits in sensation bilaterally, 5/5 strength in hands bilaterally Procedures I&D of AbscessDate/Time: 05/19/2022 7:03 PMPerformed by: Chris Marrufo ResidentMDAuthorized by: Daniel Petit MD Consent: Consent given by: PatientUniversal protocol: Procedure explained and questions answered to patient or proxy's satisfaction: yes Relevant documents present and verified: yes Test results available and properly labeled: yes Imaging studies available: yes Required blood products, implants, devices, and special equipment available: yes Site/side marked: yes Immediately prior to procedure a time out was called: no Patient identity confirmed: Verbally with patientLocation: Type: Abscess Size: 1 cm Location: Upper extremity Upper extremity location: Arm Arm location: R lower armPre-procedure details: Skin preparation: Antiseptic wash and ChloraprepProcedure type: Complexity: SimpleProcedure details: Needle aspiration: yes Needle size: 20 G Incision type: no incision. Incision and drainage depth: N/A. Scalpel size: none. Drainage: Purulent and bloody Drainage amount: Scant Packing materials: NonePost-procedure details: Patient tolerance of procedure: Tolerated well, no immediate complicationsAdditional documentation:: No specimens removed Estimated blood loss (ml): 0 No prosthetic devices, grafts, tissues, transplants or devices implanted ED Course ED Course as of 05/19/221901u May 19, 2022 1856 TEACHING PHYSICIAN MARIA INESI personally examined Tej Guadalupe, performed the warner portions of the history and physical examination and was directly involved in his care.I reviewed the past medical records, laboratory results, and resident's note and agree with the findings as documented in the resident's note..I discussed the case with the resident and agree with the diagnosis of:AbscessCellulitisand plan: Patient with multiple small pustules with surrounding cellulitis. .Sriram Estrada 2021 6:56 PM [RM] ED Course User Index[RM] Daniel Petit MD MDMNumber of Diagnoses or Management OptionsRight wrist painDiagnosis management comments: 37 year old male with PMH substance abuse and IV drug use (crystal meth) presenting with multiple fluctuant masses and erythema consistent with abscess formation, cellulitis, and possible bacteremia with concurrent benzodiazepine withdrawal.#Abscess formation vs. Cellulitis- BMP already ordered, distributive shock unlikely- Denies urinary Sx, no need for UCx- CBC already resulted, no elevated WBC- Drain abscess and Cx I&D- Continue Abx course as given (cephalexin 500 mg 4 times daily, TMP-SMX 1 tablet q 12 hours)#Benzodiazepine withdrawal- On clonazepam currently, give gabapentin for benzodiazepine withdrawal- Monitor CIWA scoreDispo: D/C to facility, facility can monitor benzodiazepine withdrawal Clinical Impression 1. Right wrist pain Niru Chris Jaramillo, LsvxqhrpABWydnhoso16/18/22 1641 Niru Chris Jaramillo, TexsgtraHMXfiobian62/18/22 1738 Donell Marrufosarah Ella, XpokexzvSPWunmwzlt22/18/22 1739 Niru Chris Ella, VvlrsdseTHItzprkpy37/18/22 1847 Donell Marrufosarah Ella, NidxmzllDQQkkmkpvf59/18/22 1908TEACHING PHYSICIAN NOTEI personally examined Tej Guadalupe, performed the warner portions of the history and physical examination and was directly involved in his care.I reviewed the past medical records, laboratory results and resident's note and agree with the findings as documented in the resident's note..I discussed the case with the resident and agree with the diagnosis of:1. Right wrist pain and plan: Right forearm pain: few pustules/small areas of fluctuance. 2 sites with fluctuance treated with needle aspiration ~1 cc pus removed. Continue PO antibiotics, add warm compresses. No evidence of deep extension at this time.Benzo dependence: has been in substance abuse treatment for just over a week. Taken off benzos and discharged on gabapentin, will provide dose of gabapentin now for benzo craving. Discharged in stable condition.Sriram Estrada 2021 10:23 PM Daniel Petit MD05/19/22 2226 64596-8Lozgvcnob Emergency department LropJP797545EdTsvgth, Robert1.2.840.624015.1.13.43.2.7.2.836 105WiWztnptWwzpqmVL1647-09-10F89:30:23 Physician Emergency department NoteTXT1.2.840.626175.1.13.43.2.7.2.72 7879|[id number] for patient efeh88627-0Lnipjgxut department NoteLNInternal MedicineInternal MedicineTriHealth Bet[facility] BbwlFbpweisEevorbyLLVJ0811748898CNXV42 23-05-18T22:26:301.2.840.294129.1.72.3 .15|1.2.840.052137.1.13.43.2.7.2.24756 [id number] Internal Medicine [facility] 2022-05-19 15:51:03 TWqaoD/EQzb9nUP7M9qA0myIrNe7p3Y5eNPtNu E4dZsl4D69SUthgYUQagh7kqHg0878-66-96R1 5:51:03 Assessment X2 pt's ID, ABC intact, A&Ox4, in no acute distress. Area clean and safe from hazards. Pt in bed in low locked position. 1/2 rails up. Follows commands and directions. Speech is clear and appropriate. Pt is calm and cooperative. Denies headache, dizziness or blurry vision. PERRLA, no drainage from eyes or nares. Membranes moist, no JVD, denies sore throat, ROM of neck intact, tongue symmetrical. Heart: rate and rhythm regular, denies chest pain. Lungs: clear bilateral, no cough. Resp: even and unlabored, denies SOB. ABD: non distended, BS present, no pain or tenderness, denies N/V/D. : no dysuria or hematuria. Skin: warm and dry. Pt is c/o an abscess on right wrist that is hot to touch. No peripheral edema. MAEX4 RFBH1Hluq light and belongings within reachPending evaluation and orders, will continue to monitor VINI Gonzalez 48573-4Ljjyuyfxw department OwdsKX2231-37-55P02:54:23[facility]me[address] [facility] department NoteTXT1.2.840.386192.1.13.43.2.7.2.72 7879|[id number] for patient wvdd55619-8Acsaowlua department [id number] [facility]25[address] [facility] HospitalMprsRpvhgpuBlmbdzdGXJB9336264702CRMD49 23-05-185:54:231.2.840.792966.1.72.3 .15|1.2.840.337162.1.13.43.2.7.2.24945 [id number] Antwon Gonzalez [facility] 2022-05-19 12:42:01 OGgTU+xtcskp+UXAKAEyzcfwZNTQO85QPR5EJ8 /Oi/Zl3GVC0Bc12prQxiWy0GEa4917-93-99U6 2:42:01 Pt noted to have another hospital arm band on stated "they told me to come here to get them lanced" 88953-2Rxsseziqp department AoyjQT8345-04-04T37:42:31[facility]me[address] [facility] [facility] department NoteTXT1.2.840.925035.1.13.43.2.7.2.72 7879|[id number] for patient sbhz27118-3Ifhqoljvv department LtpaKU190300334Vpqrbtmo Clardy [facility]2525 [facility] HospitalVfn[id number] 23-05-18T12:42:311.2.840.408183.1.72.3 .15|1.2.840.605005.1.13.43.2.7.2.04035 [id number] Emma Weathers [facility] 2022-05-19 12:32:25 lU0DoYoT54L5YwBnY2Zt15np+hJ2cDswJfbA/L B7jHmvjrnLO6Pz4ToDqtQa5F5P6019-85-83C8 2:32:25 Name and verified and confirmed correct with patient. 36279-4Haudpqjdz department MrybLM3518-75-62L55:32:31[facility] department NoteTXT1.2.840.166398.1.13.43.2.7.2.72 7879|[id number] for patient xzze72570-9Vwmeffugt department NoteLNTriHealth [facility]2525 [facility] HospitalQmm[id number] 23-05-182:32:311.2.840.556485.1.72.3 .15|1.2.840.045699.1.13.43.2.7.2.68623 [id number] [facility] 2022-05-19 12:30:12 sYc3kUIUXmXTqI/J0OWbTYxTgK6cANEXM+7axL k430Cegirv+Si0qK9tTycDsLdz1447-61-45L4 2:30:12 MEDICAL SCREENING EXAMINATION PROVIDER NOTEI evaluated and initiated the medical screening examination of patient Tej Guadalupe.Warner Symptoms and FindingsThere were no vitals filed for this visit. History: 37 year old male presents to the ED with c/o right wrist pain since 2 weeks. He reports he has abscess on right wrist. He is detoxing from Benzos. Exam: Alert and oriented No acute distress Labs Reviewed - No data to displayAssessmentFurther evaluation will be necessary in order to determine if an emergency medical condition exists. The patient will continue in process until such time they are deemed ready for disposition.The following have been ordered to facilitate evaluation:Laboratory StudiesPain AssessmentNo intervention required.The patient is waiting to be roomed at this time.Choco Matthews 2021 12:30 PM 20960-5Blrodhlxh department MijwDV5845-79-93X85:32:29[facility] department NoteTXT1.2.840.470709.1.13.43.2.7.2.72 7879|[id number] for patient hzgp80636-1Qpmrsogmv department NoteSt. Luke's [facility]2525 [facility] HospitalEfwrTdjmdwxTievyibCVZD9157361617TTPZ70 23-05-182:32:291.2.840.796148.1.72.3 .15|1.2.840.724882.1.13.43.2.7.2.50271 [id number] [facility] 2020-12-13 19:54:00 IQkgfceeqvy67780557CIR+l6bcBvItQwKVvdU c/pukuufdF099asBoCO87PJrKswnTiztUsGUe/ VMRMYKk2123-92-42I63:54:00 [facility] ([facility]ENC[facility] PROVIDER REPORTREPORT#:[id number] REPORT STATUS: SignedDATE:12/13/20 TIME: 1953 PATIENT: TEJ GUADALUPE UNIT #: [id number]#: [id number] ROOM/BED:AGE: 35 SEX: M PCP PHYS: No Primary or Family PhysicianSERVICE AUTHOR: Shaggy Morrow MD * ALL edits or amendments must be made on the electronic/computer document * HPI-Seizure GeneralInitial Greet Date/Time 12/13/20 1950 PresentationChief Complaint Seizure, generalizedSeizure Anatomic Location GeneralizedHx Obtained From Patient, EMSOnset Occurred TodaySymptom Duration Lasting minutesProgression since Onset ResolvedLocation genQuality Unable to verbalizeRadiation Does not radiateSeverity: Onset ModerateSeverity: Current No pain currentlyAssociated Other Pt denies other symptomsExacerbated by NothingRelieved by Nothing Free Text HPI NotesFree Text HPI NotesPatient states he is withdrawing from [place] and [place] and thinks he may have had a seizure. He describes this event as flopping around on the ground but being conscious and knowing that he is doing such during the event. It was not witnessed by EMS or anyone else to get a description. He also states he has been having suicidal thoughts. Denies fever, falling, pain, trauma, difficulty breathing, ingestion/overdose. Denies chest pain, tightness, or pressure, sob, lightheadedness, syncope, exertional symptoms, sweating, arm pain, back pain, orjaw pain. Denies focal numbness, focal weakness, changes in vision/speech/hearing/gait. Risk-Seizure Free Text Risk NotesFree Text Risk NotesThe patient's NIH score is 0. Level of consciousness is alert and responsive. Answers month and age correctly. Blinks eyes and squeezes hands appropriately upon command. Normal ljae-wq-fwfx eye movements on extraocular muscle testing. No visual field losses bilaterally. Normal symmetry of the face. No right arm,left arm, right leg, or left leg drift. No limb ataxia in any extremities. No sensory loss in the arms, legs, trunk, or face. No aphasia. No dysarthria. Noextinction or inattention. Review of Systems ROS StatementsAll systems rev neg except as marked. Focused Review of SystemsRespiratoryDenies: Cough, non-productive, Cough, productive, Shortness of breath. CardiovascularDenies: Chest pain, Syncope. Past Medical History - AdultStated Complaint REPORTS SEIZURESAllergiesCoded Allergies:No Known Allergies (12/13/20) Review of Nursing Notes Rev avail, and agreePt reports no significant: Past medical history, Past surgical history, Family historySmoking status: Smoking status for patients 13 years old or older: Unknown,if ever smoked Physical Exam Vital SignsVital SignsFirst Documented: Result Date Time Pulse Ox 100 [...] 1949 Review of Vital Signs Reviewed Focused PEGeneral/Const General/Const Awake, AlertMS Head Head NormocephalicEyes Eyes PERRL, EOMI, No photophobiaEars/Nose/Throat Ears/Nose/Throat Atraumatic, Airway patent, Pharynx NL Mouth Mucous membranes dry. MS Neck Neck Supple, No meningismus, Full range of motion, No swelling, Non-tenderResp/Chest Respiratory/Chest Breath sounds NL, Breath sounds = bilat, No respiratory distress, No rales, No rhonchi, No wheezingCardiovascular Cardiovascular Heart rate NL, Regular rhythm, Heart sounds NL, Peripheral circulation NLAbdomen/GI Abdomen/GI Soft, Non-tender, No guarding, No reboundMS Upper Extrem Upper Extremity/MS Atraumatic, Inspection NL, No swelling, Non-tenderMS Lower Extrem Lower Ext/Pelvis/MS Inspection NL, No swelling, Non-tender, No erythema, No deformity, Neurologic intact, Vascular intact, No edemaSkin Skin Color NL, Warm, Dry, Intact, Turgor NLNeurologic Neurologic Oriented X3, Speech NL, No motor deficits, No sensory deficits, CNII - XII intact, Reflexes equal bilat, Cerebellar NL, Memory NL, Gait NLPsychiatric Psychiatric Affect NL, Mood NL, Not homicidal, No hallucinations, Cognitive function NL, Judgment/insight NL, Thought content NL Interpretation Diagnostics Lab Results InterpretationResultsLaboratory Tests 12/13/202004:[Embedded Image Not Available]Laboratory Tests: 12/13 Chemistry Sodium (136 - 145 [...] pH (5.0 - 8.0) 6.5 Ur Specific [place] (1.001 - 1.035) 1.014 Urine Protein (NEGATIVE mg/dL) NEGATIVE Urine Glucose (UA) (NEGATIVE mg/dL) NEGATIVE Urine Ketones (NEGATIVE mg/dL) NEGATIVE Urine Blood (NEGATIVE mg/dL) Negative Urine Nitrite (NEGATIVE) NEGATIVE Urine Bilirubin (NEGATIVE mg/dL) NEGATIVE Urine Urobilinogen (NEGATIVE mg/dL) Normal Ur Leukocyte Esterase (NEGATIVE Matt/uL) NEGATIVE Urine RBC (0 - 5 #/HPF) 0-2 Urine WBC (0 - 5 per HPF) 0-5 Ur Epithelial Cells (FEW per HPF) FEW Urine Bacteria (NONE #/HPF) NONE SEEN Urine Mucus (FEW #/LPF) FEW Recent Impressions:CAT SCAN - CT HEAD/BRAIN W/O CONT 12/13 2009 Report Impression - Status: SIGNED Entered: 12/13/20202054 IMPRESSION: Negative CT head. Location: RRImpression By: [id number] - Tano Gauthier MD Point of Care TestingPulse Oximetry Pulse Ox % 98 On: Room air Interpretation Interpreted by me, Pulse oximetry normal Time 1956 Re-Evaluation MDM ED CourseMedication(s) OrderedMedication(s) Ordered:Antihistamine Drugs Sig/Darius Start time Last Medication Dose Route Stop Time Status Admin Diphenhydramine HCl 25 MG Q6H PRN PRN 12/13 2129 AC PO 01/12 2129 Autonomic Drugs Sig/Darius Start time Last Medication Dose Route Stop Time Status Admin Albuterol/Ipratropium 3 ML RTQ4H PRN PRN 12/13 2129 r INH 01/12 2129 Nicotine 21 MG Q24H PRN PRN 12/13 2129 CKD TRANSDERM 01/12 2129 Central Nervous System Agents Sig/Darius Start time Last Medication Dose Route Stop Time Status Admin Acetaminophen 650 MG Q6H PRN PRN 12/13 2129 AC PO 01/12 2129 Chlordiazepoxide HCl 50 MG Q6H PRN PRN 12/13 2129 AC PO 01/12 2129 Ibuprofen 600 MG Q6H PRN PRN 12/13 2129 AC PO 01/12 2129 Lorazepam 2 MG Q6H PRN PRN 12/13 2129 AC PO 01/12 2129 Quetiapine Fumarate 50 MG Q4H PRN PRN 12/13 2129 AC PO 01/12 2129 Trazodone HCl 50 MG BEDTIME PRN PRN 12/13 2129 r PO 01/12 2129 Levetiracetam 100 ML X1ED STA 12/13 1953 DC 12/13 IV 12/13 Lorazepam 1 MG X1ED STA 12/13 1952 DC 12/13 IV 12/13 Electrolytic, Caloric, And Shayna Sig/Darius Start time Last Medication Dose Route Stop Time Status Admin Potassium Chloride 40 MEQ Q12H PRN PRN 12/13 2129 AC PO 01/12 2129 Sodium Chloride 1,000 ML X1ED STA 12/13 1952 DC 12/13 IV 12/13 Gastrointestinal Drugs Sig/Darius Start time Last Medication Dose Route Stop Time Status Admin Docusate Sodium 100 MG Q12H PRN PRN 12/13 2129 AC PO 01/12 2129 Famotidine 20 MG Q12H PRN PRN 12/13 2129 AC PO 01/12 2129 Ondansetron Base 4 MG Q6H PRN PRN 12/13 2129 r PO 01/12 2129 Patient Discharge Departure Vital Signs/ConditionVital SignsFirst Documented: Result Date Time Pulse Ox 100 [...] Room air 12/13 1949 Temp 36.7 12/13 1950 Pulse 102 12/13 1949 Resp 12/13 All vital signs available at the time of this entry have been reviewed. Clinical ImpressionClinical ImpressionPrimary Impression: DepressionSecondary Impressions: POSSIBLE SEIZURE Pt/Provider HandoffCare Transferred at 2238 (to Dr. Mari) at 2238RPT #:[id number] OF REPORTEDEmergency department qdvthj1742-96-24R19:54:00V.[id number] 4-0589AVAvailable for patient wvdfKTVEDHNOJQJRPU5803-93-54S63:39:03 [facility] 2020-12-13 19:54:00 YVszqgardyv41161885uO8aJnxYRCRjQiYJ/Q6 VNiOKAJ9QqvZM6ZUsbDkEco9z0Npmeq+Wxasc8 I3eB5W73124-86-40O95:54:00 [facility] ([facility])EMERGENCY PROVIDER REPORTREPORT#:[id number] REPORT STATUS: SignedDATE:12/13/20 TIME: 1952 PATIENT: TEJ GUADALUPE UNIT #: [id number]#: [id number] ROOM/BED:AGE: 35 SEX: M PCP PHYS: No Primary or Family PhysicianSERVICE AUTHOR: Shaggy Morrow MD * ALL edits or amendments must be made on the electronic/computer document * Shaggy Morrow 12/13/201953:HPI-Seizure GeneralInitial Greet Date/Time 12/13/20 1950 PresentationChief Complaint Seizure, generalizedSeizure Anatomic Location GeneralizedHx Obtained From Patient, EMSOnset Occurred TodaySymptom Duration Lasting minutesProgression since Onset ResolvedLocation genQuality Unable to verbalizeRadiation Does not radiateSeverity: Onset ModerateSeverity: Current No pain currentlyAssociated Other Pt denies other symptomsExacerbated by NothingRelieved by Nothing Free Text HPI NotesFree Text HPI NotesPatient states he is withdrawing from [place] and [facility] and thinks he may have had a seizure. He describes this event as flopping around on the ground but being conscious and knowing that he is doing such during the event. It was not witnessed by EMS or anyone else to get a description. He also states he has been having suicidal thoughts. Denies fever, falling, pain, trauma, difficulty breathing, ingestion/overdose. Denies chest pain, tightness, or pressure, sob, lightheadedness, syncope, exertional symptoms, sweating, arm pain, back pain, orjaw pain. Denies focal numbness, focal weakness, changes in vision/speech/hearing/gait. Risk-Seizure Free Text Risk NotesFree Text Risk NotesThe patient's NIH score is 0. Level of consciousness is alert and responsive. Answers month and age correctly. Blinks eyes and squeezes hands appropriately upon command. Normal tnud-kh-lvta eye movements on extraocular muscle testing. No visual field losses bilaterally. Normal symmetry of the face. No right arm,left arm, right leg, or left leg drift. No limb ataxia in any extremities. No sensory loss in the arms, legs, trunk, or face. No aphasia. No dysarthria. Noextinction or inattention. Review of Systems ROS StatementsAll systems rev neg except as marked. Focused Review of SystemsRespiratoryDenies: Cough, non-productive, Cough, productive, Shortness of breath. CardiovascularDenies: Chest pain, Syncope. Past Medical History - AdultStated Complaint REPORTS SEIZURESAllergiesCoded Allergies:No Known Allergies (12/13/20) Review of Nursing Notes Rev avail, and agreePt reports no significant: Past medical history, Past surgical history, Family historySmoking status: Smoking status for patients 13 years old or older: Unknown,if ever smoked Physical Exam Vital SignsVital SignsFirst Documented: Result Date Time Pulse Ox 100 [...] 1949 Review of Vital Signs Reviewed Focused PEGeneral/Const General/Const Awake, AlertMS Head Head NormocephalicEyes Eyes PERRL, EOMI, No photophobiaEars/Nose/Throat Ears/Nose/Throat Atraumatic, Airway patent, Pharynx NL Mouth Mucous membranes dry. MS Neck Neck Supple, No meningismus, Full range of motion, No swelling, Non-tenderResp/Chest Respiratory/Chest Breath sounds NL, Breath sounds = bilat, No respiratory distress, No rales, No rhonchi, No wheezingCardiovascular Cardiovascular Heart rate NL, Regular rhythm, Heart sounds NL, Peripheral circulation NLAbdomen/GI Abdomen/GI Soft, Non-tender, No guarding, No reboundMS Upper Extrem Upper Extremity/MS Atraumatic, Inspection NL, No swelling, Non-tenderMS Lower Extrem Lower Ext/Pelvis/MS Inspection NL, No swelling, Non-tender, No erythema, No deformity, Neurologic intact, Vascular intact, No edemaSkin Skin Color NL, Warm, Dry, Intact, Turgor NLNeurologic Neurologic Oriented X3, Speech NL, No motor deficits, No sensory deficits, CNII - XII intact, Reflexes equal bilat, Cerebellar NL, Memory NL, Gait NLPsychiatric Psychiatric Affect NL, Mood NL, Not homicidal, No hallucinations, Cognitive function NL, Judgment/insight NL, Thought content NL Interpretation Diagnostics Lab Results InterpretationResultsLaboratory Tests 12/13/202004:[Embedded Image Not Available]Laboratory Tests: 12/13 Chemistry Sodium (136 - 145 [...] pH (5.0 - 8.0) 6.5 Ur Specific [place] (1.001 - 1.035) 1.014 Urine Protein (NEGATIVE mg/dL) NEGATIVE Urine Glucose (UA) (NEGATIVE mg/dL) NEGATIVE Urine Ketones (NEGATIVE mg/dL) NEGATIVE Urine Blood (NEGATIVE mg/dL) Negative Urine Nitrite (NEGATIVE) NEGATIVE Urine Bilirubin (NEGATIVE mg/dL) NEGATIVE Urine Urobilinogen (NEGATIVE mg/dL) Normal Ur Leukocyte Esterase (NEGATIVE Matt/uL) NEGATIVE Urine RBC (0 - 5 #/HPF) 0-2 Urine WBC (0 - 5 per HPF) 0-5 Ur Epithelial Cells (FEW per HPF) FEW Urine Bacteria (NONE #/HPF) NONE SEEN Urine Mucus (FEW #/LPF) FEW Recent Impressions:CAT SCAN - CT HEAD/BRAIN W/O CONT 12/13 2009 Report Impression - Status: SIGNED Entered: 12/13/20202054 IMPRESSION: Negative CT head. Location: RRImpression By: [id number] - Tano Gauthier MD Point of Care TestingPulse Oximetry Pulse Ox % 98 On: Room air Interpretation Interpreted by ny, Pulse oximetry normal Time 1956 Re-Evaluation [facility] ED CourseMedication(s) OrderedMedication(s) Ordered:Antihistamine Drugs Sig/Darius Start time Last Medication Dose Route Stop Time Status Admin Diphenhydramine HCl 25 MG Q6H PRN PRN 12/13 2129 AC PO 01/12 2129 Autonomic Drugs Sig/Darius Start time Last Medication Dose Route Stop Time Status Admin Albuterol/Ipratropium 3 ML RTQ4H PRN PRN 12/13 2129 r INH 01/12 2129 Nicotine 21 MG Q24H PRN PRN 12/13 2129 CKD TRANSDERM 01/12 2129 Central Nervous System Agents Sig/Darius Start time Last Medication Dose Route Stop Time Status Admin Acetaminophen 650 MG Q6H PRN PRN 12/13 2129 AC PO 01/12 2129 Chlordiazepoxide HCl 50 MG Q6H PRN PRN 12/13 2129 AC PO 01/12 2129 Ibuprofen 600 MG Q6H PRN PRN 12/13 2129 AC PO 01/12 2129 Lorazepam 2 MG Q6H PRN PRN 12/13 2129 AC PO 01/12 2129 Quetiapine Fumarate 50 MG Q4H PRN PRN 12/13 2129 AC PO 01/12 2129 Trazodone HCl 50 MG BEDTIME PRN PRN 12/13 2129 r PO 01/12 2129 Levetiracetam 100 ML X1ED STA 12/13 1953 DC 12/13 IV 12/13 Lorazepam 1 MG X1ED STA 12/13 1952 DC 12/13 IV 12/13 Electrolytic, Caloric, And Shayna Sig/Darius Start time Last Medication Dose Route Stop Time Status Admin Potassium Chloride 40 MEQ Q12H PRN PRN 12/13 2129 AC PO 01/12 2129 Sodium Chloride 1,000 ML X1ED STA 12/13 1952 DC 12/13 IV 12/13 Gastrointestinal Drugs Sig/Darius Start time Last Medication Dose Route Stop Time Status Admin Docusate Sodium 100 MG Q12H PRN PRN 12/13 2129 AC PO 01/12 2129 Famotidine 20 MG Q12H PRN PRN 12/13 2129 AC PO 01/12 2129 Ondansetron Base 4 MG Q6H PRN PRN 12/13 2129 r PO 01/12 2129 Patient Discharge Departure Vital Signs/ConditionVital SignsFirst Documented: Result Date Time Pulse Ox 100 [...] signs available at the time of this entry have been reviewed. Clinical ImpressionClinical ImpressionPrimary Impression: DepressionSecondary Impressions: POSSIBLE SEIZURE Pt/Provider HandoffCare Transferred at 2237 (to Dr. Mari) Katarina Mari. 12/14/20 0518:Re-Evaluation MDM Re-Evaluation/Progress #1Text/Dict NotePatient to be signed over to Dr. Rhodes at 7 AM. I will continue to monitor thepatient until that time.Time of Re-Eval 0518 at 2238 at 0519RPT #:[id number] OF REPORTEDEmergency department xiqufi6278-21-76X66:54:00V.[id number] 4-0589AVAvailable for patient cayiTDTQXVEXDUZLNK0809-29-30I56:19:25 [facility] 2020-12-13 19:54:00 QZhdkgrwdlt88563194vSakCN4OB4PW+LHvbz6 nSxmWk3wo1FI+dhQQdUWxHeFvxOyIVKT1J6kxp PGS2m0T9293-71-73Y35:54:00 [facility] ([facility])EMERGENCY PROVIDER REPORTREPORT#:[id number] REPORT STATUS: SignedDATE:12/13/20 TIME: 1952 PATIENT: TEJ GUADALUPE UNIT #: [id number]#: [id number] ROOM/BED:AGE: 35 SEX: M PCP PHYS: No Primary or Family PhysicianSERVICE AUTHOR: Shaggy Morrow MD * ALL edits or amendments must be made on the electronic/computer document * Shaggy Morrow 12/13/201953:HPI-Seizure GeneralInitial Greet Date/Time 12/13/20 1950 PresentationChief Complaint Seizure, generalizedSeizure Anatomic Location GeneralizedHx Obtained From Patient, EMSOnset Occurred TodaySymptom Duration Lasting minutesProgression since Onset ResolvedLocation genQuality Unable to verbalizeRadiation Does not radiateSeverity: Onset ModerateSeverity: Current No pain currentlyAssociated Other Pt denies other symptomsExacerbated by NothingRelieved by Nothing Free Text HPI NotesFree Text HPI NotesPatient states he is withdrawing from [place] and [employer] and thinks he may have had a seizure. He describes this event as flopping around on the ground but being conscious and knowing that he is doing such during the event. It was not witnessed by EMS or anyone else to get a description. He also states he has been having suicidal thoughts. Denies fever, falling, pain, trauma, difficulty breathing, ingestion/overdose. Denies chest pain, tightness, or pressure, sob, lightheadedness, syncope, exertional symptoms, sweating, arm pain, back pain, orjaw pain. Denies focal numbness, focal weakness, changes in vision/speech/hearing/gait. Risk-Seizure Free Text Risk NotesFree Text Risk NotesThe patient's NIH score is 0. Level of consciousness is alert and responsive. Answers month and age correctly. Blinks eyes and squeezes hands appropriately upon command. Normal eeco-aq-kavd eye movements on extraocular muscle testing. No visual field losses bilaterally. Normal symmetry of the face. No right arm,left arm, right leg, or left leg drift. No limb ataxia in any extremities. No sensory loss in the arms, legs, trunk, or face. No aphasia. No dysarthria. Noextinction or inattention. Review of Systems ROS StatementsAll systems rev neg except as marked. Focused Review of SystemsRespiratoryDenies: Cough, non-productive, Cough, productive, Shortness of breath. CardiovascularDenies: Chest pain, Syncope. Past Medical History - AdultStated Complaint REPORTS SEIZURESAllergiesCoded Allergies:No Known Allergies (12/13/20) Review of Nursing Notes Rev avail, and agreePt reports no significant: Past medical history, Past surgical history, Family historySmoking status: Smoking status for patients 13 years old or older: Unknown,if ever smoked Physical Exam Vital SignsVital SignsFirst Documented: Result Date Time Pulse Ox 100 [...] 81 12/14 729 Resp 17 12/14 729 Review of Vital Signs Reviewed Focused PEGeneral/Const General/Const Awake, AlertMS Head Head NormocephalicEyes Eyes PERRL, EOMI, No photophobiaEars/Nose/Throat Ears/Nose/Throat Atraumatic, Airway patent, Pharynx NL Mouth Mucous membranes dry. MS Neck Neck Supple, No meningismus, Full range of motion, No swelling, Non-tenderResp/Chest Respiratory/Chest Breath sounds NL, Breath sounds = bilat, No respiratory distress, No rales, No rhonchi, No wheezingCardiovascular Cardiovascular Heart rate NL, Regular rhythm, Heart sounds NL, Peripheral circulation NLAbdomen/GI Abdomen/GI Soft, Non-tender, No guarding, No reboundMS Upper Extrem Upper Extremity/MS Atraumatic, Inspection NL, No swelling, Non-tenderMS Lower Extrem Lower Ext/Pelvis/MS Inspection NL, No swelling, Non-tender, No erythema, No deformity, Neurologic intact, Vascular intact, No edemaSkin Skin Color NL, Warm, Dry, Intact, Turgor NLNeurologic Neurologic Oriented X3, Speech NL, No motor deficits, No sensory deficits, CNII - XII intact, Reflexes equal bilat, Cerebellar NL, Memory NL, Gait NLPsychiatric Psychiatric Affect NL, Mood NL, Not homicidal, No hallucinations, Cognitive function NL, Judgment/insight NL, Thought content NL Interpretation Diagnostics Lab Results InterpretationResultsLaboratory Tests 03/14/21 2005:[Embedded Image Not Available]Laboratory Tests: 12/13 Chemistry Sodium (136 - 145 [...] pH (5.0 - 8.0) 6.5 Ur Specific [place] (1.001 - 1.035) 1.014 Urine Protein (NEGATIVE mg/dL) NEGATIVE Urine Glucose (UA) (NEGATIVE mg/dL) NEGATIVE Urine Ketones (NEGATIVE mg/dL) NEGATIVE Urine Blood (NEGATIVE mg/dL) Negative Urine Nitrite (NEGATIVE) NEGATIVE Urine Bilirubin (NEGATIVE mg/dL) NEGATIVE Urine Urobilinogen (NEGATIVE mg/dL) Normal Ur Leukocyte Esterase (NEGATIVE Matt/uL) NEGATIVE Urine RBC (0 - 5 #/HPF) 0-2 Urine WBC (0 - 5 per HPF) 0-5 Ur Epithelial Cells (FEW per HPF) FEW Urine Bacteria (NONE #/HPF) NONE SEEN Urine Mucus (FEW #/LPF) FEW Recent Impressions:CAT SCAN - CT HEAD/BRAIN W/O CONT 12/13 2009 Report Impression - Status: SIGNED Entered: 12/13/20202054 IMPRESSION: Negative CT head. Location: RRImpression By: [email or web address] - Tano Gauthier MD Point of Care TestingPulse Oximetry Pulse Ox % 98 On: Room air Interpretation Interpreted by me, Pulse oximetry normal Time 1956 Re-Evaluation [facility] ED CourseMedication(s) OrderedMedication(s) Ordered:Antihistamine Drugs Sig/Darius Start time Last Medication Dose Route Stop Time Status Admin Diphenhydramine HCl 25 MG Q6H PRN PRN 12/13 2129 DCD PO 01/12 2129 Autonomic Drugs Sig/Darius Start time Last Medication Dose Route Stop Time Status Admin Albuterol/Ipratropium 3 ML RTQ4H PRN PRN 12/13 2129 DCDr INH 01/12 2129 Nicotine 21 MG Q24H PRN PRN 12/13 2129 DCD TRANSDERM 01/12 2129 Central Nervous System Agents Sig/Darius Start time Last Medication Dose Route Stop Time Status Admin Acetaminophen 650 MG Q6H PRN PRN 12/13 2129 DCD PO 01/12 2129 Chlordiazepoxide HCl 50 MG Q6H PRN PRN 12/13 2129 DCD PO 01/12 2129 Ibuprofen 600 MG Q6H PRN PRN 12/13 2129 DCD PO 01/12 2129 Lorazepam 2 MG Q6H PRN PRN 12/13 2129 DCD PO 01/12 2129 Quetiapine Fumarate 50 MG Q4H PRN PRN 12/13 2129 DCD PO 01/12 2129 Trazodone HCl 50 MG BEDTIME PRN PRN 12/13 2129 DCDr PO 01/12 2129 Levetiracetam 100 ML X1ED STA 12/13 1953 DC 12/13 IV 12/13 Lorazepam 1 MG X1ED STA 12/13 1952 DC 12/13 IV 12/13 Electrolytic, Caloric, And Shayna Sig/Darius Start time Last Medication Dose Route Stop Time Status Admin Potassium Chloride 40 MEQ Q12H PRN PRN 12/13 2129 DCD PO 01/12 2129 Sodium Chloride 1,000 ML X1ED STA 12/13 1952 DC 12/13 IV 12/13 Gastrointestinal Drugs Sig/Darius Start time Last Medication Dose Route Stop Time Status Admin Docusate Sodium 100 MG Q12H PRN PRN 12/13 2129 DCD PO 01/12 2129 Famotidine 20 MG Q12H PRN PRN 12/13 2129 DCD PO 01/12 2129 Ondansetron Base 4 MG Q6H PRN PRN 12/13 2129 DCDr PO 01/12 2129 Patient Discharge Departure Vital Signs/ConditionVital SignsFirst Documented: Result Date Time Pulse Ox 100 12/13 1949 B/P 154/84 12/13 1949 B/P Mean 107 12/13 1949 O2 Delivery Room air 12/13 1949 Temp 36.7 12/13 1949 Pulse 102 12/13 1950 Resp 16 12/13 1949 Last Documented: Result Date Time Pulse Ox 100 12/14 0730 B/P 121/86 12/14 729 B/P Mean 97 12/14 729 O2 Delivery Room air 12/14 729 Temp 36.4 12/14 729 Pulse 81 12/14 729 Resp 17 12/14 729 All vital signs available at the time of this entry have been reviewed. Clinical ImpressionClinical ImpressionPrimary Impression: DepressionSecondary Impressions: POSSIBLE SEIZURE Pt/Provider HandoffCare Transferred at 2238 (to Dr. Mari) Katarina Mari 12/14/20 0518:Re-Evaluation MDM Re-Evaluation/Progress #1Text/Dict NotePatient to be signed over to Dr. Rhodes at 7 AM. I will continue to monitor thepatient until that time.Time of Re-Eval 517 Darinel Rhodes 12/14/20 0802:Re-Evaluation MDM Free Text MDM NotesFree Text MDM NotesPatient left AMA without my involvement at 2238 at 0519 at 0803RPT #:[id number] OF REPORTEDEmergency department [id number]:[id number] for patient [id number]:03:59 [facility] 2020-12-06 16:41:00 [id number] [id number]:41:00 [facility] ([facility])EMERGENCY PROVIDER REPORTREPORT#:[id number] REPORT STATUS: SignedDATE:12/06/20 TIME: 1640 PATIENT: TEJ GUADALUPE UNIT #: [id number]#: [id number] ROOM/BED:AGE: 35 SEX: M PCP PHYS: No Primary or Family PhysicianSERVICE AUTHOR: Orion Martell MD * ALL edits or amendments must be made on the electronic/computer document * HPI-General Illness Free Text HPI NotesFree Text HPI NotesPresents to the ED complaining of "shakiness". Patient states he has a history of Xanax abuse for which he entered the rehab facility. Patient states he cameto the ED requesting "some Xanax to stop shakes. Informed patient that we do not give Xanax for that reason. Patient states that if he is not going to get Xanax he is going to leave the hospital. GeneralInitial Greet Date/Time 12/06/20 140 PresentationChief Complaint __ (request for xanax) Review of Systems ROS StatementsUnable to Obtain ROS Uncooperative Past Medical History - AdultStated Complaint [facility] FOR XANAX DETOXAllergiesCoded Allergies:No Known Allergies (12/06/20) Smoking status: Smoking status for patients 13 years old or older: Current every day smoker Physical Exam Vital SignsVital SignsFirst Documented: Result Date Time Pulse Ox 97 12/06 1402 B/P 129/87 03/ 1402 B/P Mean 101 03/07 1402 O2 Delivery Room air 03/ 1402 Temp 36.6 03/07 1402 Pulse 93 03/ 1402 Resp 16 03/ 1402 Last Documented: Result Date Time Pulse Ox 97 12/06 1402 B/P 129/87 03/ 1402 B/P Mean 101 03/07 1402 O2 Delivery Room air 03/ 1402 Temp 36.6 03/07 1402 Pulse 93 03/07 1402 Resp 16 03/07 1402 Review of Vital Signs Reviewed Basic Physical ExamBasic PE pt refused Re-Evaluation MDM Free Text MDM NotesFree Text MDM NotesPatient choosing to leave before examination could be complete Patient Discharge Departure Vital Signs/ConditionVital SignsFirst Documented: Result Date Time Pulse Ox 97 12/06 1402 B/P 129/87 03/07 1402 B/P Mean 101 03/07 1402 O2 Delivery Room air 03/07 1402 Temp 36.6 03/07 1402 Pulse 93 03/07 1402 Resp 16 03/07 1402 Last Documented: Result Date Time Pulse Ox 97 12/06 1402 B/P 129/87 03/07 1402 B/P Mean 101 03/07 1402 O2 Delivery Room air 03/07 1402 Temp 36.6 12/06 1402 Pulse 93 12/06 1402 Resp 16 12/06 1402 All vital signs available at the time of this entry have been reviewed. Clinical ImpressionClinical ImpressionPrimary Impression: Benzodiazepine abuse Disposition DecisionOther Against Medical Advice Yes at 1528RPT #:[id number] OF REPORTEDEmergency department [id number]:[id number] for patient [id number]:28:42 [facility]
[2023-12-30 21:19] LABS: Absolute Basophils 0.1 K/uL (0-0.5); Absolute Eosinophils 0.1 K/uL (0-0.5); Absolute Lymphocytes (CBC) 2.1 K/uL (0.7-4.9); Absolute Monocytes 1.2 K/uL (0.1-1.3); Basophils % 0.8 % (0-1.3); Eosinophils % 0.5 % (0-4.4); Hematocrit 41.9 % (39.6-49.0); Hemoglobin 14.5 g/dL (13.6-17.9); Lymphocytes % 15.7 % (15.3-44.8); MCH 31.5 pg (27.0-35.0); MCHC 34.6 g/dL (32.0-36.0); MPV 7.8 fL (7.6-11.3); Monocytes % 9.1 % (3.3-12.3); Neutrophils % 73.9 % (41.7-73.7); Nucleated Red Blood Cells % 0.1 % (0-0); Platelets 234 thou/uL (152-406); Red Cell Distribution Width 14.1 % (12.1-15.2)
[2023-12-30] MEDS ORDERED: KETOROLAC 30 MG/ML INJ ONE (21:42)
[2023-12-30 21:43] LABS: Specific Gravity 1.013 (1.005-1.030); Sqamous Epithelial <5 /HPF (None Seen); Urine Bacteria None Seen /HPF (<20); Urine Bilirubin NEGATIVE (Negative); Urine Blood 3+ (OVER) (Negative); Urine Clarity Clear (Clear); Urine Color Colorless (Yellow); Urine Culture Reflex Order NOT NEEDED; Urine Glucose NEGATIVE (Negative); Urine Ketones 1+ (Negative); Urine Microscopic Reflex YN ORDER UMIC; Urine Mucus Slight /HPF (None Seen); Urine Nitrite NEGATIVE (Negative); Urine Protein 1+ (Negative); Urine RBC <5 /HPF (None Seen); Urine Sperm Present (None Seen); Urine Urobilinogen Normal (Normal); Urine WBC <5 /HPF (<5); Urine pH 5.5 (5.0-7.0)
[2023-12-30 21:50] LABS: ALT/SGPT 153 U/L (16-61); AST/SGOT 615 U/L (15-37); Albumin 4.2 g/dL (3.4-5.0); Albumin/Globulin Ratio 1.1 (1.1-1.8); Alkaline Phosphatase 70 U/L (45-117); Anion Gap 12.6 mEq/L (5.0-15.0); BUN Blood Urea Nitrogen 15 mg/dL (7-18); Bicarbonate 24 mEq/L (21-32); Bilirubin Direct 0.3 mg/dL (0-0.2); Bilirubin Indirect, Calculated 1.1 mg/dL (0.2-0.8); Bilirubin Total 1.4 mg/dL (0.2-1.0); Glomerular Filtration Rate 104 ml/min (=/>90); Glucose Level 90 mg/dL (74-106); Lipase 21 U/L (13-75); Potassium 3.6 mEq/L (3.5-5.1); Protein, Total 8.2 g/dL (6.4-8.2); Sodium Level 138 mEq/L (136-145)
[2023-12-30 21:51] LABS: Barbiturates NEGATIVE (NEGATIVE); Benzodiazepines NEGATIVE (NEGATIVE); Cocaine POSITIVE (NEGATIVE); METHAMPHETAM NEGATIVE (NEGATIVE); Methadone NEGATIVE (NEGATIVE); Opiates NEGATIVE (NEGATIVE); Phencyclidine NEGATIVE (NEGATIVE); THC Cannibis POSITIVE (NEGATIVE)
[2023-12-30 21:53] LABS: PT Prothrombin Time 11.5 SECONDS (9.5-12.5); PTT, Activated Partial Thromb 28.7 SECONDS (24.3-36.9); Protime INR 1.05
[2023-12-30] MEDS ORDERED: DIAZEPAM 10 MG/2 ML INJ SYRINGE ONE (22:16)
--- NOTE | 2023-12-30 22:30 | RAD REPORT ---
EXAM DESCRIPTION: CT - Stone Protocol - 12/30/2023 10:03 pm CLINICAL HISTORY: Abdominal pain. Left flank pain COMPARISON: 2018 TECHNIQUE: Computed axial tomography of the abdomen pelvis was obtained without oral or IV contrast. Lack of IV and oral contrast limits evaluation of solid organs, appendix, bowel, and vessels. Copeland l reformatted images were obtained and reviewed. All CT scans are performed using dose optimization technique as appropriate and may include automated exposure control or mA/KV adjustment according to patient size. FINDINGS: A renal calculus is not seen. An ureteral calculus is not noted. A bladder calculus is not present. No hydronephrosis The liver, spleen, pancreas and adrenals appear grossly normal There is no evidence of diverticulitis. The appendix appears normal Small left hydrocele Areas of sclerosis within the femoral heads right greater than left IMPRESSION: Negative for a genitourinary calculus Areas of sclerosis within the femoral heads right greater than left probably avascular necrosis
[2023-12-30] MEDS ORDERED: methocarbamoL 500 MG TAB ONE (23:40)
[2023-12-30] MEDS ORDERED: METHOCARBAMOL 1,000 MG/10 ML VIAL ONE (23:51)
[2023-12-30] MEDS ORDERED: NA CHLORIDE 0.9% 100 ML ONE (23:51)
--- NOTE | 2023-12-31 00:19 | EDPHYS ---
Physician Documentation [facility] Name: Anthony Au Age: 38 yrs Sex: Male : 1985 Arrival Date: 12/30/2023 Time: 20:36 Bed 17 Private MD: ED Physician River Kang HPI: 12/29 21:10 This 38 yrs old Male presents to ER via Ambulatory with complaints of Suicidal cp Ideation, Low Back Pain. Historical: - Allergies: 20:50 No Known Allergies; as6 - PMHx: 20:50 Anxiety; Asthma; Bipolar disorder; Depression; detox seizures; scalp laceration repair.;as6 - PSHx: 20:50 I\T\D; as6 - Immunization history:: Adult Immunizations not up to date. - Social history:: Smoking status: Patient reports the use of cigarette tobacco products, smokes one pack cigarettes per day. Patient uses alcohol, on a daily basis. ROS: 21:15 Constitutional: Negative for body aches, chills, fever, poor PO intake, cp 21:15 Respiratory: Negative for cough, shortness of breath, wheezing, cp 21:15 Abdomen/GI: Negative for abdominal pain, nausea, vomiting, and diarrhea, 21:15 Back: Positive for flank pain, on the right, Negative for injury or acute deformity, 21:15 Neuro: Negative for altered mental status, dizziness, headache, weakness, 21:15 Psych: Positive for depression, suicidal ideation, 21:15 All other systems are negative, Exam: 22:45 ECG was reviewed by the Attending Physician. cp Vital Signs: 20:48 BP 143 / 103; Pulse 106; Resp 18 S; Temp 99(O); Pulse Ox 98% on R/A; Weight 86.18 kg as6 (R); Height 5 ft. 8 in. (R); Pain 10/10; 23:03 BP 130 / 90; Pulse 81; Resp 17; Pulse Ox 96% on R/A; rv 12/30 00:00 BP 119 / 73; Pulse 74; Resp 16; Pulse Ox 97% ; Pain 4/10; pf1 01:00 BP 120 / 99; Pulse 85; Resp 16; Temp 98.9; Pulse Ox 99% on R/A; Pain 3/10; pf1 12/29 20:48 Body Mass Index 28.89 (86.18 kg, 172.72 cm) as6 12/29 20:48 Pain Scale: Adult as6 12/30 00:00 Pain Scale: Adult pf1 01:00 Pain Scale: Adult pf1 MDM: 12/29 20:46 Patient medically screened. cp 12/29 21:06 Order name: CBC with Diff; Complete Time: 21:34 cp 12/29 22:03 Interpretation: Normal except: WBC 13.50; KENDELL% 73.9; NEUT A 10.0. cp 12/29 21:06 Order name: CMP; Complete Time: 22:01 cp 12/29 22:03 Interpretation: Normal except: AST 615; ALT 153; BILIT 1.4; GLOB 4.0. cp 12/29 21:06 Order name: Lipase; Complete Time: 22:01 cp 12/29 21:06 Order name: Urinalysis w/ reflexes; Complete Time: 22:01 cp 12/29 22:04 Interpretation: Normal except: UKET 1+; UBLD 3+ (OVER); UPROT 1+; SPERM Present. cp 12/29 21:06 Order name: Acetaminophen; Complete Time: 22:01 cp 12/29 21:06 Order name: ETOH Level; Complete Time: 22:01 cp 12/29 21:06 Order name: Hepatic Function; Complete Time: 22:01 cp 12/29 22:21 Interpretation: Reviewed. 12/29 21:06 Order name: PT-INR; Complete Time: 22:01 cp 12/29 21:06 Order name: Ptt, Activated; Complete Time: 22:01 cp 12/29 21:06 Order name: Salicylate; Complete Time: 22:01 cp 12/29 21:06 Order name: Urine Drug Screen; Complete Time: 22:01 cp 12/29 22:21 Interpretation: Normal except: LUPE POSITIVE; THC POSITIVE. cp 12/29 21:35 Order name: CT Stone Protocol; Complete Time: 22:33 cp 12/29 22:34 Order name: US Abdomen Limited cp 12/29 21:06 Order name: EKG; Complete Time: 21:07 cp 12/29 21:06 Order name: IV Saline Lock; Complete Time: 21:07 cp 12/29 21:06 Order name: Labs collected and sent; Complete Time: 21:07 cp 12/29 21:06 Order name: EKG - Nurse/Tech; Complete Time: 23:56 cp 12/29 21:06 Order name: Suicide Screening (Kathrine); Complete Time: 21:57 cp 12/29 22:34 Order name: NPO; Complete Time: 22:55 cp EC:45 Rate is 77 beats/min. Rhythm is regular. MI interval is normal. QRS interval is normal. cp QT interval is normal. T waves are Inverted in lead aVR. Interpreted by me. Reviewed by me. Administered Medications: 21:45 Drug: Ketorolac IVP 15 mg IVP once Route: IVP; Site: left forearm; pf1 22:40 Follow up: Response: No adverse reaction; Marked relief of symptoms pf1 22:25 Drug: Diazepam IVP 2 mg IVP once Route: IVP; Site: right forearm; pf1 23:20 Follow up: Response: No adverse reaction; Marked relief of symptoms; Pain is decreased pf1 12/30 00:00 Drug: Methocarbamol IVPB 1 grams IVPB once over 1 hrs; (mix in NS 100 mL) Route: IVPB; pf1 Infused Over: 1 hrs; Site: right forearm; 01:00 Follow up: Response: No adverse reaction; Marked relief of symptoms; Pain is decreased; pf1 IV Status: Completed infusion; IV Intake: 100ml Disposition Summary: 12/31/23 00:19 Discharge Ordered Problem: new cp Symptoms: have improved cp Condition: Stable cp Diagnosis - Dorsalgia, unspecified cp - Other depressive episodes cp - Cocaine abuse cp - Abnormal results of liver function studies cp Followup: cp - With: Esteban Roldan MD - When: 2 - 3 days - Reason: elevated liver enzymes Followup: cp - With: Private Physician - When: 2 - 3 days - Reason: Recheck today's complaints Discharge Instructions: - Discharge Summary Sheet cp - Chronic Back Pain cp - Alcohol Use Disorder cp - Cocaine Use Disorder cp - Back Exercises cp - Managing Depression, Adult cp Forms: - Medication Reconciliation Form cp - Thank You Letter cp - Antibiotic Education cp - Prescription Opioid Use cp - Patient Portal Instructions cp - Leadership Thank You Letter cp Prescriptions: - Cyclobenzaprine 10 mg Oral tablet - take 1 tablet ORAL route every 8 hours As needed; 20 tablet; Refills: 0, cp Product Selection Permitted - Diclofenac Sodium 75 mg Oral Tablet Sustained Release - take 1 tablet ORAL route 2 times per day; 30 tablet; Refills: 0, Product cp Selection Permitted Signatures: Dispatcher [employer] EDMS River Singh PA PA cp Tom Valenzuela RN RN as6 Marbella Causey RN RN pf1 Corrections: (The following items were deleted from the chart) 12/29 21: 21:07 CBC+H.LAB.BRZ ordered. EDMS EDMS 21: 21:07 COMPREHENSIVE METABOLIC PANEL+C.LAB.BRZ ordered. EDMS EDMS 21: 21:07 LIPASE+C.LAB.BRZ ordered. EDMS EDMS 21: 21:07 Urinalysis+U.LAB.BRZ ordered. EDMS EDMS 21: 21:07 ACETAMINOPHEN+C.LAB.BRZ ordered. EDMS EDMS 21: 21:07 BASIC METABOLIC PANEL+C.LAB.BRZ ordered. EDMS EDMS 21: 21:07 ETHANOL+C.LAB.BRZ ordered. EDMS EDMS 21:07 21:07 HEPATIC FUNCTION+C.LAB.BRZ ordered. EDMS EDMS 21:07 21:07 PROTIME (+INR)+COAG.LAB.BRZ ordered. EDMS EDMS 21:07 21:07 PTT, ACTIVATED+COAG.LAB.BRZ ordered. EDMS EDMS 21:07 21:07 SALICYLATE+C.LAB.BRZ ordered. EDMS EDMS 21:07 21:07 URINE DRUG SCREEN+UC.LAB.BRZ ordered. EDMS EDMS 21:35 21:35 Stone Protocol+CT.RAD.BRZ ordered. EDMS EDMS
--- NOTE | 2023-12-31 00:19 | ER ---
Nurse's Notes [facility] Name: Anthony Au Age: 38 yrs Sex: Male : 1985 Arrival Date: 12/30/2023 Time: 20:36 Bed 17 Private MD: Diagnosis: Dorsalgia, unspecified;Other depressive episodes;Cocaine abuse;Abnormal results of liver function studies Presentation: 12/29 20:51 Chief complaint: Patient states: left sided flank/back pain that started last night. pt as6 also reports having SI. does not have a plan at this time. pt wishes to get help. Coronavirus screen: At this time, the client does not indicate any symptoms associated with coronavirus-19. Ebola Screen: No symptoms or risks identified at this time. Initial Sepsis Screen: Does the patient meet any 2 criteria? No. Patient's initial sepsis screen is negative. Does the patient have a suspected source of infection? No. Patient's initial sepsis screen is negative. Risk Assessment: Do you want to hurt yourself or someone else? Patient reports desire/thoughts of hurting themselves or someone else. Provider notified. Onset of symptoms was December 29, 2023. 20:51 Acuity: MARKY 2 as6 20:51 Method Of Arrival: Ambulatory as6 Triage Assessment: 20:50 General: Appears in no apparent distress. Behavior is calm, cooperative. Pain: as6 Complains of pain in left flank. Historical: - Allergies: 20:50 No Known Allergies; as6 - PMHx: 20:50 Anxiety; Asthma; Bipolar disorder; Depression; detox seizures; scalp laceration repair.;as6 - PSHx: 20:50 I\\T\\D; as6 - Immunization history:: Adult Immunizations not up to date. - Social history:: Smoking status: Patient reports the use of cigarette tobacco products, smokes one pack cigarettes per day. Patient uses alcohol, on a daily basis. Screenin:12 [facility] ED Fall Risk Assessment (Adult) History of falling in the last 3 months, pf1 including since admission No falls in past 3 months (0 pts) Confusion or Disorientation No (0 pts) Intoxicated or Sedated No (0 pts) Impaired Gait No (0 pts) Mobility Assist Device Used No (0 pt) Altered Elimination No (0 pt) Score/Fall Risk Level 0 - 2 = Low Risk Oriented to surroundings, Maintained a safe environment, Educated pt \\T\\ family on fall prevention, incl call for assistance when getting out of bed, Assessed \\T\\ reinforced patient's understanding of fall precautions, Provided non-skid footwear, Hourly rounding (assess needs \\T\\ fall precautionary measures) done, Used ambulatory aids as needed (educated on \\T\\ assisted with), Used gait belt as appropriate. 21:12 Abuse screen: Denies threats or abuse. Nutritional screening: No deficits noted. pf1 Tuberculosis screening: No symptoms or risk factors identified. Assessment: 21:12 General: Appears in no apparent distress. uncomfortable, well groomed, well developed, pf1 Behavior is calm, cooperative, appropriate for age, quiet. 21:12 Pain: Complains of pain in back and left flank Pain currently is 10 out of 10 on a pain pf1 scale. Neuro: No deficits noted. Level of Consciousness is awake, alert, obeys commands, Oriented to person, place, time, situation. Cardiovascular: No deficits noted. Capillary refill < 3 seconds Patient's skin is warm and dry. Respiratory: No deficits noted. Airway is patent Respiratory effort is even, unlabored, Respiratory pattern is regular, symmetrical. GI: No deficits noted. No signs and/or symptoms were reported involving the gastrointestinal system. : No deficits noted. No signs and/or symptoms were reported regarding the genitourinary system. EENT: No deficits noted. No signs and/or symptoms were reported regarding the EENT system. Derm: Reports redness to face,onset yesterday. Musculoskeletal: Reports pain in left flank and back since yesterday. Pain is 10 out of 10 on a pain scale. 21:12 Reassessment: Patient denies any suicidal ideations. Patient stated wants to be pf1 transferred to [facility] for pysch issues and to have his medication adjusted. 22:00 Reassessment: Patient appears in no apparent distress at this time. Patient and/or pf1 family updated on plan of care and expected duration. Pain level reassessed. Patient is alert, oriented x 3, equal unlabored respirations, skin warm/dry/pink. 23:00 Reassessment: Patient appears in no apparent distress at this time. Patient and/or pf1 family updated on plan of care and expected duration. Pain level reassessed. Patient is alert, oriented x 3, equal unlabored respirations, skin warm/dry/pink. 12/30 00:00 Reassessment: Patient appears in no apparent distress at this time. Patient and/or pf1 family updated on plan of care and expected duration. Pain level reassessed. Patient is alert, oriented x 3, equal unlabored respirations, skin warm/dry/pink. Patient states feeling better. Patient states symptoms have improved. 00:15 Reassessment: [facility] Screener at speaking with patient. pf1 00:44 Reassessment: Patient pending discharge after IV medication is completed. pf1 01:00 Reassessment: Patient appears in no apparent distress at this time. Patient and/or pf1 family updated on plan of care and expected duration. Pain level reassessed. Patient is alert, oriented x 3, equal unlabored respirations, skin warm/dry/pink. Patient states feeling better. Patient states symptoms have improved. Psych: 12/29 21:12 [place] Suicide Severity Screening: In the past month, have you wished you were pf1 or wished you could go to sleep and not wake up? Patient responds "No." "In the past month, have you actually had any thoughts of killing yourself?" Patient responds "no." "In your lifetime, have you ever done anything, started to do anything, or prepared to do anything to end your life?" Patient responds "yes." Patient reports suicidal intent occurred greater than 3 months prior. 21:12 Subjective: Patient's mood is depressed and stress out with life. Objective: Patient is pf1 cooperative, Speech is normal, Affect is appropriate. Interventions: Removed personal items and placed in bag. Patient placed in hospital gown. Searched person for dangerous items. Urine collected and sent for urine drug test. Belonging list filled out. Safety Checks: Personal items have been removed. Door is open. No visitors are present at this time. patient stated is not suicidal, but would like to get up with his medication, feeling stress out with life and grandparents . Patient uses cocaine, Patient uses marijuana. 21:12 Commitment: none. pf1 Vital Signs: 20:48 BP 143 / 103; Pulse 106; Resp 18 S; Temp 99(O); Pulse Ox 98% on R/A; Weight 86.18 kg as6 (R); Height 5 ft. 8 in. (R); Pain 10/10; 23:03 BP 130 / 90; Pulse 81; Resp 17; Pulse Ox 96% on R/A; rv 12/30 00:00 BP 119 / 73; Pulse 74; Resp 16; Pulse Ox 97% ; Pain 4/10; pf1 01:00 BP 120 / 99; Pulse 85; Resp 16; Temp 98.9; Pulse Ox 99% on R/A; Pain 3/10; pf1 12/29 20:48 Body Mass Index 28.89 (86.18 kg, 172.72 cm) as6 12/29 20:48 Pain Scale: Adult as6 12/30 00:00 Pain Scale: Adult pf1 01:00 Pain Scale: Adult pf1 ED Course: 12/29 20:38 Patient arrived in ED. im 20:42 River Singh PA is PHCP. cp 20:42 River Kang MD is Attending Physician. cp 20:48 Arm band placed on. as6 20:52 Triage completed. as6 21:07 Initial lab(s) drawn, by tx, sent to lab. Inserted saline lock: 20 gauge in right as6 forearm, using aseptic technique. Blood collected. 21:12 Patient has correct armband on for positive identification. Bed in low position. Call pf1 light in reach. Valuables inventory done. Locked in safe. See valuables checklist. patient placed in blue paper scrubs. 21:12 Arm band placed on right wrist. pf1 21:30 Urine collected: clean catch specimen, EKG done, by polysom tech. reviewed by River HODGE.pf1 22:03 CT Stone Protocol In Process Unspecified. EDMS 22:04 Called [facility] for patient Evaluation. ty 22:30 [facility] called ETA 1.5 HRS. ty 23:08 Marbella Causey, VINI is Primary Nurse. pf1 23:09 US Abdomen Limited In Process Unspecified. EDMS 12/30 00:17 Esteban Roldan MD is Referral Physician. cp 01:30 Provided Education on: follow up education and safety plan in place prior to dscharge. pf1 01:30 No provider procedures requiring assistance completed. pf1 01:30 IV discontinued, intact, bleeding controlled, No redness/swelling at site. Pressure pf1 dressing applied. Administered Medications: 12/29 21:45 Drug: Ketorolac IVP 15 mg IVP once Route: IVP; Site: left forearm; pf1 22:40 Follow up: Response: No adverse reaction; Marked relief of symptoms pf1 22:25 Drug: Diazepam IVP 2 mg IVP once Route: IVP; Site: right forearm; pf1 23:20 Follow up: Response: No adverse reaction; Marked relief of symptoms; Pain is decreased pf1 12/30 00:00 Drug: Methocarbamol IVPB 1 grams IVPB once over 1 hrs; (mix in NS 100 mL) Route: IVPB; pf1 Infused Over: 1 hrs; Site: right forearm; 01:00 Follow up: Response: No adverse reaction; Marked relief of symptoms; Pain is decreased; pf1 IV Status: Completed infusion; IV Intake: 100ml Medication: 01:30 VIS not applicable for this client. pf1 Intake: 01:00 IV: 100ml; Total: 100ml. pf1 Outcome: 00:19 Discharge ordered by MD. cp 01:30 Discharged to home ambulatory, pf1 01:30 Condition: improved pf1 01:30 Discharge instructions given to patient, Instructed on discharge instructions, follow up and referral plans. Demonstrated understanding of instructions, follow-up care, medications, Prescriptions given X 2, 01:30 Patient left the ED. pf1 Signatures: Dispatcher [employer] EDMS River Singh PA PA cp Vicente, Ronaldo RN Tom Joiner RN RN as6 Marbella Causey RN RN pf1 Amy Bruce Tylor ty Corrections: (The following items were deleted from the chart) 12/29 23:03 22:30 [facility] called ETA 1.5 HRS ty ty 23:03 22:04 [facility] Called for patient Evaluation ty ty 12/30 05:56 01:35 Patient left the ED. pf1 pf1 06:04 12/29 21:12 Patient has correct armband on for positive identification. Placed in gown. pf1 Bed in low position. Call light in reach. Valuables inventory done. Locked in safe. See valuables checklist. pf1
[2023-12-31 05:49] VITALS: BP 143/103; O2SAT 98
[2023-12-31 05:50] VITALS: TEMP 99
--- NOTE | 2023-12-31 17:37 | RAD REPORT ---
EXAM DESCRIPTION: US - Abdomen Exam Limited - 12/30/2023 11:07 pm CLINICAL HISTORY: Male, 38 years old, liver/gallbladder COMPARISON: Same-day CT abdomen/pelvis (report only available at the time of dictation) TECHNIQUE: Multiple sonographic images of the liver and gallbladder were obtained with transabdomina l ultrasound using 2D (grayscale), color Doppler and pulse Doppler techniques. FINDINGS: Liver: Normal parenchymal echogenicity. Biliary system: Normal appearance of the gallbladder. Gallbladder wall thickness measures 3 mm. Commo n duct was not measured but does not appear enlarged. Proof Sorter reports negative sonographic Mejia 's sign. Other: No visualized ascites. IMPRESSION: Limited liver/gallbladder ultrasound without abnormality. Electronically signed by: Andrea Denton MD 12/30/2023 11:41 PM CDT Due to temporary technical issues with the PACS/Fluency reporting system, reports are being signed by the in house radiologists without review as a courtesy to insure prompt reporting. The interpreting radiologist is fully responsible for the content of the report
--- NOTE | 2024-01-01 13:43 | EKG ---
Test Date: 2023-12-30 Test Time: 22:38:22 Slater Apprentice: BF MEASUREMENT RESULTS: Intervals: Rate: 77 SD: 138 QRSD: 82 QT: 394 QTc: 445 [place]: P: 69 SD: 138 QRS: 83 T: 56 INTERPRETIVE STATEMENTS: Normal sinus rhythm Normal ECG Compared to ECG 07/25/2023 08:54:38 Sinus tachycardia no longer present Right-axis deviation no longer present Electronically Signed On 01-01-24 13:37:24 CDT by Claudio Betancur
== END 2023-12-31 01:35 | disposition home or self-care (01) ==
LOC: ER 20:36
DX: F32.89 Other specified depressive episodes (principal); M54.50 Low back pain, unspecified; F14.10 Cocaine abuse, uncomplicated; R94.5 Abnormal results of liver function studies
CPT/HCPCS: 36415; 74176; 76377; 76705; 80053; 80143; 80179; 80307; 81001; 82077; 82248; 83690; 85025; 85610; 85730; 93005; 99285; J2800; J3360

== ENCOUNTER 2024-01-20 11:18 | Emergency (ER) | payer SELFPAY ==
--- OUTSIDE RECORDS SUMMARY | 2024-01-20 11:25 | XMS REPORT | Continuity of Care Document ---
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 /min [facility] Body temperature 2022-05-23 08:00:00 36.83 Franci [facility] Respiratory rate 2022-05-23 08:00:00 20 /min [facility] Oxygen saturation in Arterial blood by Pulse oximetry 2022-05-23 08:00:00 95 /min [facility] Body height 2022-05-19 11:13:00 172.7 cm [facility] Body weight 2022-05-19 11:13:00 81.557 kg [facility] BMI 2022-05-19 11:13:00 27.34 kg/m2 [facility] Procedures Procedure Date / Time Performed Performing Clinician Source ASSIGNMENT OF BENEFITS 2023-11-01 20:19:08 Docto r Unassigned, Rose [facility] CONSENT/REFUSAL FOR DIAGNOSIS AND TREATMENT 2023-11-01 18:57:25 Doctor Unassigned, Rose [facility] CONSENT/REFUSAL FOR DIAGNOSIS AND TREATMENT 2023-10-02 17:51:45 Doctor Unassigned, Rose [facility] NOTICE OF PRIVACY PRACTICES 2023-09-29 00:09:30 Doctor Unassigned, Rose [facility] CONSENT/REFUSAL FOR DIAGNOSIS AND TREATMENT 2023-09-29 00:09:09 Doctor Unassigned, Rose [facility] CONSENT/REFUSAL FOR DIAGNOSIS AND TREATMENT 2022-06-06 17:25:33 Doctor Unassigned, Rose [facility] BASIC METABOLIC PANEL 2022-06-02 03:57:00 Ian Lawson [facility] BASIC METABOLIC PANEL 2022-06-02 03:57:00 Ian Lawson [facility] AMIKACIN, TROUGH LEVEL 2022-05-31 21:13:00 Mely Soliz [facility] AMIKACIN, TROUGH LEVEL 2022-05-31 21:13:00 Mely Soliz [facility] WOUND/ABSCESS CULTURE AND GRAM STAIN 2022-05-31 08:53:00 Germán [facility] AFB STAIN AND CULTURE 2022-05-31 08:53:00 Germán [facility] ANAEROBE CULTURE 2022-05-31 08:53:00 Germán, [facility] FUNGUS STAIN AND CULTURE 2022-05-31 08:53:00 [facility] 2022-05-31 08:53:00 Germán, [facility] ANAEROBE CULTURE 2022-05-31 08:53:00 Germán, [facility] FUNGUS STAIN AND CULTURE 2022-05-31 08:53:00 [facility] WOUND/ABSCESS CULTURE AND GRAM STAIN 2022-05-31 08:53:00 Germán, [facility] BASIC METABOLIC PANEL 2022-05-31 05:12:00 [facility] BASIC METABOLIC PANEL 2022-05-31 05:12:00 [facility] GLUCOSE POC 2022-05-29 08:04:00 [facility] GLUCOSE POC 2022-05-29 08:04:00 [facility] CBC (WITHOUT DIFFERENTIAL) 2022-05-29 04:33:00 [facility] BASIC METABOLIC PANEL 2022-05-29 04:33:00 [facility] BASIC METABOLIC PANEL 2022-05-29 04:33:00 [facility] CBC (WITHOUT DIFFERENTIAL) 2022-05-29 04:33:00 Lawson [facility] GLUCOSE POC 2022-05-28 16:49:00 [facility] GLUCOSE POC 2022-05-28 16:49:00 [facility] GLUCOSE POC 2022-05-28 11:46:00 [facility] GLUCOSE POC 2022-05-28 11:46:00 [facility] GLUCOSE POC 2022-05-28 08:24:00 [facility] GLUCOSE POC 2022-05-28 08:24:00 MarcinLupe [facility]ano [facility] CBC (WITHOUT DIFFERENTIAL) 2022-05-28 04:36:00 LawsonHeath [facility] BASIC METABOLIC PANEL 2022-05-28 04:36:00 Ian Lawson [facility] BASIC METABOLIC PANEL 2022-05-28 04:36:00 LawsonIan [facility] CBC (WITHOUT DIFFERENTIAL) 2022-05-28 04:36:00 LawsonHeath [facility] CBC (WITHOUT DIFFERENTIAL) 2022-05-27 05:10:00 LawsonHeath [facility] BASIC METABOLIC PANEL 2022-05-27 05:10:00 LawsonIan [facility] AMIKACIN, RANDOM LEVEL 2022-05-27 05:10:00 MarcinMatteo [facility] BASIC METABOLIC PANEL 2022-05-27 05:10:00 LawsonIan [facility] CBC (WITHOUT DIFFERENTIAL) 2022-05-27 05:10:00 LawsonHeath [facility] AMIKACIN, RANDOM LEVEL 2022-05-27 05:10:00 Marcin, Matteo Marrero [facility] AMIKACIN, RANDOM LEVEL 2022-05-26 23:35:00 Marcin, Matteo Marrero [facility] AMIKACIN, RANDOM LEVEL 2022-05-26 23:35:00 Marcin, Matteo Marrero [facility] AMIKACIN, TROUGH LEVEL 2022-05-26 05:53:00 Hazel Obando [facility] CBC (WITHOUT DIFFERENTIAL) 2022-05-26 05:53:00 LawsonHeath [facility] BASIC METABOLIC PANEL 2022-05-26 05:53:00 LawsonIan [facility] BASIC METABOLIC PANEL 2022-05-26 05:53:00 LawsonIan [facility] CBC (WITHOUT DIFFERENTIAL) 2022-05-26 05:53:00 LawsonHeath [facility] AMIKACIN, TROUGH LEVEL 2022-05-26 05:53:00 Hazel Obando [facility] CONSULT CLINICAL CASE MANAGEMENT (RN/SW) 2022-05-25 14:55:14 Myles Lazcano [facility] CONSULT CLINICAL CASE MANAGEMENT (RN/SW) 2022-05-25 14:55:14 Myles Lazcano [facility] CBC/DIFF 2022-05-25 08:24:00 Heath Lawson [facility] BASIC METABOLIC PANEL 2022-05-25 08:24:00 Ian Lawson [facility] CBC 2022-05-25 08:24:00 Lawson Heath [facility] BASIC METABOLIC PANEL 2022-05-25 08:24:00 Ian Lawson [facility] CBC/DIFF 2022-05-25 08:24:00 LawsonHeath [facility] CBC 2022-05-25 08:24:00 [facility] 2022-05-24 20:47:00 [facility]ABSCESS CULTURE AND GRAM STAIN 2022-05-24 20:47:00 [facility] ANAEROBE CULTURE 2022-05-24 20:47:00 [facility]ABSCESS CULTURE AND GRAM STAIN 2022-05-24 20:47:00 [facility] 2022-05-24 15:44:00 Germán [facility] FUNGUS STAIN AND CULTURE 2022-05-24 15:44:00 Germán [facility] [employer] STAIN AND CULTURE 2022-05-24 15:44:00 Germán, [facility] FUNGUS STAIN AND CULTURE 2022-05-24 15:44:00 Pilo Dunlap [facility] INFUSION PUMP 2022-05-24 04:24:23 Lupe Burch [facility] INFUSION PUMP 2022-05-24 04:24:23 Lupe Burch [facility] CBC/DIFF 2022-05-24 04:22:00 Yasmany Gonzalez [facility] CBC 2022-05-24 04:22:00 Yasmany oGnzalez [facility] CBC/DIFF 2022-05-24 04:22:00 Yasmany Gonzalez [facility] CBC 2022-05-24 04:22:00 Yasmany Gonzalez [facility] HIV AG/AB COMBO DIAGNOSTIC/SYMPTOMATIC 2022-05-23 18:44:00 Alissa Avitia [facility] HEPATITIS PANEL 2022-05-23 18:44:00 Alissa Avitia [facility] HEPATITIS PANEL 2022-05-23 18:44:00 Alissa Avitia [facility] HIV AG/AB COMBO DIAGNOSTIC/SYMPTOMATIC 2022-05-23 18:44:00 [facility] SARS-COV-2, FLU A/B, RSV 2022-05-23 15:41:00 Orlando Donald [facility] CORONAVIRUS, COVID-19, YOKASTA 2022-05-23 15:41:00 Orlando Donald [facility] CORONAVIRUS, COVID-19, YOKASTA 2022-05-23 15:41:00 Orlando Donald [facility] SARS-COV-2, FLU A/B, RSV 2022-05-23 15:41:00 Orlando Donald [facility] BASIC METABOLIC PANEL 2022-05-23 11:25:00 German Mckinney [facility] CBC/DIFF 2022-05-23 11:25:00 Stefanie Mckinney [facility] CBC 2022-05-23 11:25:00 Stefanie Mckinney [facility] SED RATE 2022-05-23 11:25:00 Orlando Donald [facility] C-REACTIVE PROT 2022-05-23 11:25:00 Orlando Donald [facility] BASIC METABOLIC PANEL 2022-05-23 11:25:00 German Mckinney [facility] CBC/DIFF 2022-05-23 11:25:00 Stefanie Mckinney [facility] C-REACTIVE PROT 2022-05-23 11:25:00 Orlando Donald [facility] SED RATE 2022-05-23 11:25:00 Orlando Donald [facility] CBC 2022-05-23 11:25:00 Stefanie Mckinney [facility] LIMITED BEDSIDE ULTRASOUND 2022-05-23 11:08:27 Unknown, Provider [facility] POC URINE DRUG SCREEN 2022-05-19 21:30:[address] [facility] POC URINE DRUG SCREEN 2022-05-19 21:30:00 [facility] I&D OF ABSCESS 2022-05-19 19:03:24 Chris Marrufo [facility] I&D OF ABSCESS 2022-05-19 19:03:24 Chris Marrufo [facility] WOUND/ABSCESS CULTURE AND GRAM STAIN 2022-05-19 18:54:00 Chris Marrufo [facility] WOUND/ABSCESS CULTURE AND GRAM STAIN 2022-05-19 18:54:00 Chris Marrufo [facility] XRAY FOREARM 2 VIEWS MIN 2022-05-19 17:04:37 Keagan Wells [facility] XRAY FOREARM 2 VIEWS MIN 2022-05-19 17:04:37 Keagan Wells graciela [facility] CBC/DIFF 2022-05-19 14:29:[address] [facility] BASIC METABOLIC PANEL 2022-05-19 14:29:00 Dana Wells [facility] LACTIC ACID 2022-05-19 14:29:[address] [facility] CBC 2022-05-19 14:29:[address] [facility] SED RATE 2022-05-19 14:29:[address] [facility] C-REACTIVE PROT 2022-05-19 14:29:00 Russell [facility] BASIC METABOLIC PANEL 2022-05-19 14:29:00 Dana Wells [facility] CBC/DIFF 2022-05-19 14:29:[address] [facility] C-REACTIVE PROT 2022-05-19 14:29:00 Tramaine [facility] LACTIC ACID 2022-05-19 14:29:[facility] SED RATE 2022-05-19 14:29:[address] [facility] CBC 2022-05-19 14:29:00 Tramaine [facility] HC POC URINE DRUG SCREEN 2022-05-19 11:15:00 [facility] HC POC URINE DRUG SCREEN 2022-05-19 11:15:00 [facility] POC COVID-19 2022-05-17 17:50:00 [facility]INE DRUG SCREEN 2022-05-12 17:47:00 BebetogreerRebel bethea [facility] HC POC URINE DRUG SCREEN 2022-05-12 17:47:00 KojoneemaRebel [facility] POC COVID-19 2022-05-11 23:56:00 Rebel Case [facility] XRAY WRIST 3 VIEWS MIN 2022-05-11 17:04:00 Michael [facility] CBC/DIFF 2022-05-11 16:20:00 [facility] MET[facility]OLIC PANEL 2022-05-11 16:20:00 German Rodriguez [facility] HIV AG/AB COMBO ROUTINE SCREENING 2022-05-11 16:20:00 Michael [facility] CBC 2022-05-11 16:20:[address] [facility] URINE DRUG (IMMUNOASSAY) - COMPREHENSIVE DRUG SCREEN 2021-01-30 22:04:00 Shy Martin [facility] HEPATIC FUNCTION PANEL (77578) (ALB,T.PRO,BILI T,BU/BC,ALT,AST,ALK PHOS) 2021-01-30 22:03:00 Shy Martin [facility] BASIC METABOLIC PANEL (NA, K, CL, CO2, GLUCOSE, BUN, CREATININE, CA) 2021-01-30 22:03:00 Shy Martin [facility] SALICYLATE 2021-01-30 22:03:00 [facility] 2021-01-30 22:03:00 Shy Martin [facility] CBC WITH DIFF 2021-01-30 22:03:00 [facility] 2021-01-30 22:02:00 [facility] (ID NOW RAPID TESTING) 2021-01-30 22:02:00 Shy Martin [facility] NOTICE OF PRIVACY PRACTICES 2021-01-30 21:37:21 Doctor Unassigned, Rose [facility] CONSENT/REFUSAL FOR DIAGNOSIS AND TREATMENT 2021-01-30 21:37:00 Doctor Unassigned, Rose [facility] Plan of Care Planned Activity Planned Date Details Comments [facility] Scheduled Test 2023-07-02 00:00:00 IMM Influenza Seasonal (>/= 19 yrs) [code = IMM Influenza Seasonal (>/= 19 yrs)] [facility] Scheduled Test 2023-07-02 00:00:00 IMM Influenza Seasonal (>/= 19 yrs) [code = IMM Influenza Seasonal (>/= 19 yrs)] [facility] Scheduled Test 2023-06-02 00:00:00 IMM Influenza Seasonal (>/= 19 yrs) [code = IMM Influenza Seasonal (>/= 19 yrs)] [facility] Scheduled Test 2023-06-02 00:00:00 IMM Influenza Seasonal (>/= 19 yrs) [code = IMM Influenza Seasonal (>/= 19 yrs)] [facility] Scheduled Test 2023-06-02 00:00:00 IMM Influenza Seasonal (>/= 19 yrs) [code = IMM Influenza Seasonal (>/= 19 yrs)] [facility] Scheduled Test 2023-06-02 00:00:00 IMM Influenza Seasonal (>/= 19 yrs) [code = IMM Influenza Seasonal (>/= 19 yrs)] [facility] Scheduled Test 2023-06-02 00:00:00 IMM Influenza Seasonal (>/= 19 yrs) [code = IMM Influenza Seasonal (>/= 19 yrs)] [facility] Scheduled Test 2023-06-02 00:00:00 COVID-19 Vaccine ( season) [code = COVID-19 Vaccine ( season)] [facility] Scheduled Test 2023-06-02 00:00:00 IMM Influenza Seasonal (>/= 19 yrs) [code = IMM Influenza Seasonal (>/= 19 yrs)] [facility] Scheduled Test 2022-07-02 00:00:00 IMM Influenza Seasonal (>/= 19 yrs) [code = IMM Influenza Seasonal (>/= 19 yrs)] [facility] Scheduled Test 2022-07-02 00:00:00 IMM Influenza Seasonal (>/= 19 yrs) [code = IMM Influenza Seasonal (>/= 19 yrs)] [facility] Scheduled Test 2022-07-02 00:00:00 IMM Influenza Seasonal (>/= 19 yrs) [code = IMM Influenza Seasonal (>/= 19 yrs)] [facility] Scheduled Test 1992 00:00:00 Imm Pneumococcal 0-64 (1 - PCV) [code = Imm Pneumococcal 0-64 (1 - PCV)] [facility] Scheduled Test 1992 00:00:00 Imm Pneumococcal 0-64 (1 - PCV) [code = Imm Pneumococcal 0-64 (1 - PCV)] [facility] Scheduled Test 1992 00:00:00 Imm Pneumococcal 0-64 (1 - PCV) [code = Imm Pneumococcal 0-64 (1 - PCV)] [facility] Scheduled Test 1992 00:00:00 Imm Pneumococcal 0-64 (1 - PCV) [code = Imm Pneumococcal 0-64 (1 - PCV)] [facility] Scheduled Test 1992 00:00:00 Imm Pneumococcal 0-64 (1 - PCV) [code = Imm Pneumococcal 0-64 (1 - PCV)] [facility] Scheduled Test 1992 00:00:00 Imm Pneumococcal 0-64 (1 - PCV) [code = Imm Pneumococcal 0-64 (1 - PCV)] [facility] Scheduled Test 1992 00:00:00 Imm Pneumococcal 0-64 (1 - PCV) [code = Imm Pneumococcal 0-64 (1 - PCV)] [facility] Scheduled Test 1992 00:00:00 Imm Pneumococcal 0-64 (1 - PCV) [code = Imm Pneumococcal 0-64 (1 - PCV)] [facility] Scheduled Test 1992 00:00:00 Imm Pneumococcal 0-64 (1 of 2 - PCV) [code = Imm Pneumococcal 0-64 (1 of 2 - PCV)] [facility] Scheduled Test 1992 00:00:00 Imm Pneumococcal 0-64 (1 of 2 - PCV) [code = Imm Pneumococcal 0-64 (1 of 2 - PCV)] [facility] Scheduled Test 1992 00:00:00 Imm Pneumococcal 0-64 (1 of 2 - PCV) [code = Imm Pneumococcal 0-64 (1 of 2 - PCV)] [facility] Scheduled Test 1986 00:00:00 COVID-19 Vaccine (#1) [code = COVID-19 Vaccine (#1)] [facility] Scheduled Test 1986 00:00:00 COVID-19 Vaccine (#1) [code = COVID-19 Vaccine (#1)] [facility] Scheduled Test 1986 00:00:00 COVID-19 Vaccine (#1) [code = COVID-19 Vaccine (#1)] [facility] Scheduled Test 1986 00:00:00 COVID-19 Vaccine (#1) [code = COVID-19 Vaccine (#1)] [facility] Scheduled Test 1986 00:00:00 COVID-19 Vaccine (#1) [code = COVID-19 Vaccine (#1)] [facility] Scheduled Test 1986 00:00:00 COVID-19 Vaccine (#1) [code = COVID-19 Vaccine (#1)] [facility] Scheduled Test 1986 00:00:00 COVID-19 Vaccine (#1) [code = COVID-19 Vaccine (#1)] [facility] Scheduled Test 1986 00:00:00 COVID-19 Vaccine (#1) [code = COVID-19 Vaccine (#1)] [facility] Scheduled Test 1986 00:00:00 COVID-19 Vaccine (#1) [code = COVID-19 Vaccine (#1)] [facility] Scheduled Test 1986 00:00:00 COVID-19 Vaccine (#1) [code = COVID-19 Vaccine (#1)] [facility] Scheduled Test 1986 00:00:00 Fluoride Varnish [code = Fluoride Varnish] [facility] Scheduled Test 1986 00:00:00 Fluoride Varnish [code = Fluoride Varnish] [facility] Encounters Start Date/Time End Date/Time Encounter Type Admission Type Attending Clinicians Care Facility Care Department Encounter ID Source 2022-06-15 12:36:45 Outpatient [facility] [id number] [facility] 2022-06-14 12:01:29 Emergency HFD HFD [id number] [facility] 2022-06-06 23:18:34 Outpatient [facility] [id number] [facility] 2022-06-06 23:16:04 Outpatient [facility] [id number] [facility] 2022-04-06 05:42:38 Outpatient [facility] [id number] [facility] 2020-12-14 08:08:00 Inpatient [facility] [id number] [facility] 2020-12-13 19:49:00 Inpatient [facility] LJ [id number] [facility] 2020-12-06 14:30:44 Inpatient [facility] [id number] [facility] 2024-01-02 00:00:00 2024-01-02 00:00:00 Patient Outreach Tatiana Allen [id number] [facility] 2023-11-01 13:02:00 2023-11-01 14:34:00 Emergency X Ella GONZALEZ [facility] ERT [id number] [facility] 2023-11-01 13:02:00 2023-11-01 14:34:00 Emergency Ella Gonzalez [facility] [id number] [facility] 2023-10-02 11:59:00 2023-10-02 12:42:00 Emergency X DEB BURGOS [facility] ERT [id number] [facility] 2023-10-02 11:59:00 2023-10-02 12:42:00 Emergency Deb Burgos [facility] [id number] [id number] [facility] 2023-09-28 18:19:00 2023-09-28 19:26:00 Emergency X DYANA JORGENSEN [facility] ERT [id number] [facility] 2023-09-28 18:19:00 2023-09-28 19:26:00 Emergency Dyana Jorgensen [facility] [id number] [id number] [id number] [facility] 2023-09-28 00:00:00 2023-09-28 00:00:00 Orders Only Doctor Unassigned, Rose [facility] [id number] [id number] [id number] [facility] 2022-06-24 08:00:00 2022-06-24 08:30:00 Office Visit Fanta Hernandez [facility] [id number] [facility] 2022-06-20 00:00:00 2022-06-20 00:00:00 Outpatient [facility] [id number] [facility] 2022-06-06 12:34:00 2022-06-06 13:23:00 Emergency Gisell ZENONDANIEL [facility] [id number] [facility] 2022-06-06 12:34:00 2022-06-06 13:23:00 Emergency Daniel Dumont Lee [facility] [id number] [id number] [id number] [id number] [facility] 2022-06-03 00:00:00 2022-06-04 22:29:00 Emergency [facility] [id number] [facility] 2022-06-03 00:00:00 2022-06-04 22:29:00 Emergency [facility] [id number] [facility] 2022-06-03 23:37:47 2022-06-03 23:59:00 Outpatient [facility] [id number] [facility] 2022-06-03 21:28:26 2022-06-03 23:36:00 Outpatient [facility] [id number] [facility] 2022-05-23 13:09:00 2022-06-03 18:30:00 Hospital Encounter Jose F Reyes David S [facility] [id number] [facility] 2022-05-30 16:04:37 2022-05-30 16:04:39 Inpatient [facility] [id number] [facility] 2022-05-23 13:09:00 2022-05-23 13:09:00 Inpatient 1 LUPE BURCH [facility] [id number] [facility] 2022-05-22 19:04:00 2022-05-22 20:39:00 Emergency Mariya [facility] [id number] [facility] 2022-05-19 14:06:00 2022-05-19 19:49:00 Emergency 1 DANIEL PETIT [facility] [id number] [facility] 2022-05-19 14:06:00 2022-05-19 19:49:00 Emergency [facility] [id number] [facility] 2022-05-19 16:50:11 2022-05-19 17:04:43 Emergency [facility] [id number] [facility] 2022-05-18 10:13:00 2022-05-19 10:30:00 Inpatient [facility] [id number] [facility] 2022-05-11 22:33:18 2022-05-18 09:43:00 Inpatient KERLINE OMER [facility] [id number] [facility] 2022-05-11 19:53:00 2022-05-11 21:53:00 Emergency [facility] [id number] [facility] 2022-05-11 19:53:00 2022-05-11 21:53:00 Emergency Daniel Petit [facility] [id number] [facility] 2022-05-11 16:54:18 2022-05-11 17:05:03 Emergency [facility] [id number] [facility] 2022-05-11 16:05:00 2022-05-11 16:05:00 Emergency 1 [facility] [id number] [facility] 2021-01-30 16:48:00 2021-01-30 23:59:00 Emergency Shy Martin [facility] [id number] [facility] 2021-01-30 16:48:00 2021-01-30 16:48:00 Emergency X SHY MARTIN [facility] ERT [id number] [facility] 2021-01-30 00:00:00 2021-01-30 00:00:00 Orders Only Doctor Unassigned, Rose [facility] [id number] [facility] 2020-03-03 09:37:00 2020-03-03 09:37:00 Emergency X [facility] ERT [id number] [facility] Results Test Description Test Time Test Comments Results Result Co mments Source [facility] [id number] 11:04:16* Test Item Value Reference Range Interpretation Comme nts AFB Culture (test code = 543-9) No acid fast bacilli isolated in 6 weeks AFB Stain (test code = 676-7) No acid fast bacilli seen TRACY (test code = TRACY) Reference value: N o acid fast bacilli isolated [facility] Curixgs3337-21-73 11:04:16* Test Item Value Reference Range Interpretation Comme nts AFB Culture (test code = 543-9) No acid fast bacilli isolated in 6 weeks AFB Stain (test code = 676-7) No acid fast bacilli seen TRACY (test code = TRACY) Reference value: N o acid fast bacilli isolated [facility] Mcnltgd2547-66-04 21:02:46* Test Item Value Reference Range Interpretation Comme nts AFB Culture (test code = 543-9) No acid fast bacilli isolated in 6 weeks AFB Stain (test code = 676-7) No acid fast bacilli seen TRACY (test code = TRACY) Reference value: N o acid fast bacilli isolated [facility] [id number] 21:02:45* Test Item Value Reference Range Interpretation Comme nts AFB Culture (test code = 543-9) No acid fast bacilli isolated in 6 weeks AFB Stain (test code = 676-7) No acid fast bacilli seen TRACY (test code = TRACY) Reference value: N o acid fast bacilli isolated [facility] Fjncjfk1310-52-30 20:02:40* Test Item Value Reference Range Interpretation Comme nts AFB Culture (test code = 543-9) No acid fast bacilli isolated in 6 weeks AFB Stain (test code = 676-7) No acid fast bacilli seen TRACY (test code = TRACY) Reference value: N o acid fast bacilli isolated [place] [facility] [id number] 19:03:24* Test Item Value Reference Range Interpretation Comme nts Fungus Culture (test code = 580-1) No fungus isolated in 4 weeks Fungus Stain (test code = 658-5) No fungal elements seen TRACY (test code = TRACY) Reference value: N o fungus isolated [facility] Oxaexqr9868-10-09 19:03:24* Test Item Value Reference Range Interpretation Comme nts Fungus Culture (test code = 580-1) No fungus isolated in 4 weeks Fungus Stain (test code = 658-5) No fungal elements seen TRACY (test code = TRACY) Reference value: N o fungus isolated [facility] Hwjpqvi2432-95-01 19:03:24* Test Item Value Reference Range Interpretation Comme nts Fungus Culture (test code = 580-1) No fungus isolated in 4 weeks Fungus Stain (test code = 658-5) No fungal elements seen TRACY (test code = TRACY) Reference value: N o fungus isolated [facility] Mctpcgl2822-68-71 05:04:44* Test Item Value Reference Range Interpretation Comme nts Fungus Culture (test code = 580-1) No fungus isolated in 4 weeks Fungus Stain (test code = 658-5) No fungal elements seen TRACY (test code = TRACY) Reference value: N o fungus isolated [facility] Sjdeyeq8679-57-55 05:04:43* Test Item Value Reference Range Interpretation Comme nts Fungus Culture (test code = 580-1) No fungus isolated in 4 weeks Fungus Stain (test code = 658-5) No fungal elements seen TRACY (test code = TRACY) Reference value: N o fungus isolated [facility] Isijrnz6926-42-33 04:04:04* Test Item Value Reference Range Interpretation Comme nts Fungus Culture (test code = 580-1) No fungus isolated in 4 weeks Fungus Stain (test code = 658-5) No fungal elements seen TRACY (test code = TRACY) Reference value: N o fungus isolated [facility] Hjtqmsu1254-65-78 06:33:06* Test Item Value Reference Range Interpretation Comme nts Anaerobe Culture (test code = 635-3) No anaerobes isolated in 5 days TRACY (test code = TRACY) Reference value: N o anaerobes isolated [facility] Owhnikq8435-80-12 06:33:06* Test Item Value Reference Range Interpretation Comme nts Anaerobe Culture (test code = 635-3) No anaerobes isolated in 5 days TRACY (test code = TRACY) Reference value: N o anaerobes isolated [facility] Vfitunu8668-23-78 06:33:06* Test Item Value Reference Range Interpretation Comme nts Anaerobe Culture (test code = 635-3) No anaerobes isolated in 5 days TRACY (test code = TRACY) Reference value: N o anaerobes isolated [facility] Pnmtjkj3194-12-93 06:33:06* Test Item Value Reference Range Interpretation Comme nts Anaerobe Culture (test code = 635-3) No anaerobes isolated in 5 days TRACY (test code = TRACY) Reference value: N o anaerobes isolated [facility] & Gram Pcxbn4005-50-01 08:20:27* Test Item Value Reference Range Interpretation [...] the reference value is considered "No growth". [facility] & Gram Wtklj6619-64-87 08:20:27* Test Item Value Reference Range Interpretation [...] the reference value is considered "No growth". [place] [facility] & Gram Vvxxd5075-89-27 08:20:27* Test Item Value Reference Range Interpretation [...] the reference value is considered "No growth". [place] [facility]/Abscess Culture & Gram Wxcwx3963-26-11 08:20:27* Test Item Value Reference Range Interpretation [...] the reference value is considered "No growth". [place] [facility]/Abscess Culture & Gram Dtbrz0302-87-64 10:37:20* Test Item Value Reference Range Interpretation Comme nts Wound Culture (test code = 6463-4) 1+ Acid fast bacilli AA REFER TO [id number] Gram Stain (test code = 664-3) No organisms seen TRACY (test code = TRACY) Reference value: Non-sterile sites may be contaminated with esperanza that is considered normal or otherwise not clinically relevant. As appropriate, normal results will indicate the presence or absence of such esperanza. Otherwise, the reference value is considered "No growth". Lab Interpretation (test code = 69261-4) Abnormal [facility] [id number] 10:37:20* Test Item Value Reference Range Interpretation Comme nts Bacteria Spec Cult (test code = 6463-4) ACID-FAST BACILLUS AA 1+ Acid fast bacilliREFER TO [id number] Reference value: Non-sterile sites may be contaminated [...] 6463-4) Acid fast bacilli AA REFER TO [id number] Gram Stain (test code = 664-3) No organisms seen TRACY (test code = TRACY) Reference value: Non-sterile sites may be contaminated with esperanza that is considered normal or otherwise not clinically relevant. As appropriate, normal results will indicate the presence or absence of such esperanza. Otherwise, the reference value is considered "No growth". Lab Interpretation (test code = 68946-1) Abnormal [facility] Rteu1419-22-09 10:36:38* Test Item Value Reference Range Interpretation Comme nts Bacteria Spec Cult (test code = 6463-4) ACID-FAST BACILLUS AA Acid fast bacilliREFER TO [id number] Reference value: Non-sterile sites may be contaminated [...] 6463-4) Acid fast bacilli AA REFER TO [id number] Gram Stain (test code = 664-3) No organisms seen TRACY (test code = TRACY) Reference value: Non-sterile sites may be contaminated with esperanza that is considered normal or otherwise not clinically relevant. As appropriate, normal results will indicate the presence or absence of such esperanza. Otherwise, the reference value is considered "No growth". Lab Interpretation (test code = 34739-7) Abnormal [facility] Ogrh8259-42-05 10:35:39* Test Item Value Reference Range Interpretation Comme [facility] Bacteria Spec Cult (test code = 6463-4) ACID-FAST BACILLUS AA Acid fast bacilliREFER TO [id number] Reference value: Non-sterile sites may be contaminated with esperanza that is considered normal or otherwise not clinically relevant. As appropriate, normal results will indicate the presence or absence of such esperanza. Otherwise, the reference value is considered "No growth".[facility] Yninmpt4901-00-18 09:36:58 * Test Item Value Reference Range Interpretation Comme nts Anaerobe Culture (test code = 635-3) No anaerobes isolated in 5 days TRACY (test code = TRACY) Reference value: N o anaerobes isolated [facility] Zuvaqog7438-10-67 09:36:11* Test Item Value Reference Range Interpretation Comme [facility] Anaerobe Culture (test code = 635-3) No anaerobes isolated in 5 days TRACY (test code = TRACY) Reference value: N o anaerobes isolated [facility] Yekhidw2507-33-67 09:35:49* Test Item Value Reference Range Interpretation Comme [facility] Anaerobe Culture (test code = 635-3) No anaerobes isolated in 5 days TRACY (test code = TRACY) Reference value: N o anaerobes isolated [facility] GLUCOSE POC docked npnudj0925-44-32 08:05:41* Test Item Value Reference Range Interpretation Comme [facility] Glucose POC (test code = 60732232) 107 mg/dL 74-106 H MD contracting support specialist Notifie d Lab Interpretation (test code = 17828-8) Abnormal [facility] GLUCOSE POC docked mdjdfv9010-64-37 08:05:41* Test Item Value Reference Range Interpretation Comme [facility] Glucose POC (test code = 52740683) 107 mg/dL 74-106 H MD contracting support specialist Notifie d Lab Interpretation (test code = 13658-5) Abnormal [facility] GLUCOSE POC docked lwhqgy4278-77-24 08:05:41* Test Item Value Reference Range Interpretation Comme [facility] Glucose POC (test code = 77571791) 107 mg/dL 74-106 H MD contracting support specialist Notifie d Lab Interpretation (test code = 99391-9) Abnormal [facility] GLUCOSE POC docked ftgmbm5087-41-24 08:05:41* Test Item Value Reference Range Interpretation Comme nts Glucose POC (test code = 73918478) 107 mg/dL 74-106 H contracting support specialistVINI araiza Lab Interpretation (test code = 54180-9) Abnormal [facility] GLUCOSE POC docked ssfumx9360-57-50 16:50:48* Test Item Value Reference Range Interpretation Comme nts Glucose POC (test code = 56407083) 107 mg/dL 74-106 H Lab Interpretation (test cod e = 96766-5) Abnormal [facility] GLUCOSE POC docked cmibjj8585-08-71 11:46:44* Test Item Value Reference Range Interpretation Comme nts Glucose POC (test code = 80359327) 89 mg/dL 74-106 Lab Interpretation (test cod e = 39253-7) Normal [facility] GLUCOSE POC docked pcgupx1235-00-80 08:25:07* Test Item Value Reference Range Interpretation Comme nts Glucose POC (test code = 92663796) 83 mg/dL 74-106 Lab Interpretation (test cod e = 78043-1) Normal [facility] Khrb5575-06-76 14:19:13* Test Item Value Reference Range Interpretation Comme nts Bacteria Spec Cult (test code = 6463-4) ACID-FAST BACILLUS AA 4+ Acid fast bacilli HHSHIV 1+2 Ab+HIV1 p24 Ag SerPl Ql [id number] 19:49:40* Test Item Value Reference Range Interpretation Comme nts HIV 1+2 Ab+HIV1 p24 Ag SerPl Ql IA (test code = 41400-2) NEGATIVE Negative HHSCoronavirus, CoVID-19, [id number] 16:40:22* Test Item Value Reference Range Interpretation Comments COVID-19 (SARS-COV-2) (test code = 30085-5) Not Detected Not Detected INTERPRETATION: No detectable [...] its performance characteristics were verified by the [facility] molecular diagnostics laboratory and is authorized for clinical diagnostic use. This laboratory is certified under the Clinical Laboratory Improvement Amendments (CLIA) as qualified to perform high complexity clinical laboratory testing. Lab Interpretation (test code = 49384-5) Normal [facility]on[facility], CoVID-19, [id number] 16:40:22* Test Item Value Reference Range Interpretation Comments COVID-19 (SARS-COV-2) (test code = 50790-5) Not Detected Not Detected INTERPRETATION: No detectable [...] its performance characteristics were verified by the [facility] molecular diagnostics laboratory and is authorized for clinical diagnostic use. This laboratory is certified under the Clinical Laboratory Improvement Amendments (CLIA) as qualified to perform high complexity clinical laboratory testing. Lab Interpretation (test code = 59271-8) Normal [place] JakeCoronavirus, CoVID-19, [id number] 16:40:22* Test Item Value Reference Range Interpretation Comments COVID-19 (SARS-COV-2) (test code = 52621-2) Not Detected Not Detected INTERPRETATION: No detectable [...] its performance characteristics were verified by the [facility] molecular diagnostics laboratory and is authorized for clinical diagnostic use. This laboratory is certified under the Clinical Laboratory Improvement Amendments (CLIA) as qualified to perform high complexity clinical laboratory testing. Lab Interpretation (test code = 43161-7) Normal [place] JakeCoronavirus, CoVID-19, [id number] 16:40:22* Test Item Value Reference Range Interpretation Comments COVID-19 (SARS-COV-2) (test code = 55677-6) Not Detected Not Detected INTERPRETATION: No detectable [...] its performance characteristics were verified by the [facility] molecular diagnostics laboratory and is authorized for clinical diagnostic use. This laboratory is certified under the Clinical Laboratory Improvement Amendments (CLIA) as qualified to perform high complexity clinical laboratory testing. Lab Interpretation (test code = 54291-8) Normal [facility]-CoV-2 RNA Resp Ql YOKASTA+bzuky7812-86-63 16:40:22* Test Item Value Reference Range Interpretation Comme nts Hospitalized? (test code = 52214-4) No ICU? (test code = 08750-7) No Symptomatic as defined by CDC? (test code = 71722-9) No Employed in Healthcare? (test code = 34282-1) Unknown Resident in a congregate care setting (including nursing homes, residential care for people with intellectual and developmental disabilities, psychiatric treatment facilities, group homes, board and care homes, homeless custodial, foster care or other): (test code = 18899-3) Unknown SARS-CoV-2 RNA Resp Ql YOKASTA+probe (test code = 11299-8) NOT DETECTED Not Detected INTERPRETATION: No detectable [...] its performance characteristics were verified by the [facility] molecular diagnostics laboratory and is authorized for clinical diagnostic use. This laboratory is certified under the Clinical Laboratory Improvement Amendments(CLIA) as qualified to perform high complexity clinical laboratory testing.HHSHIV 1+2 Ab+HIV1 p24 Ag SerPl Ql [id number] 17:45:02* Test Item Value Reference Range Interpretation Comme nts HIV 1+2 Ab+HIV1 p24 Ag SerPl Ql IA (test code = 61309-7) NEGATIVE Negative GJIZOKQBZQMLM9509-65-99 23:16:25* Test Item Value Reference Range Interpretation Comme nts SALICYLATE (test code = 6602394589) <10 mg/L TRACY (test code = TRACY) Therapeutic Range: ? Analgesic and Antipyretic Use ? 20-100 mg/L ? ? Anti-Inflammatory Use ? 100-250 mg/L Toxic Range: ? Greater than 300 mg/L [facility] 23:16:15* Test Item Value Reference Range Interpretation Comme nts ALCOHOL (test code = 7205599534) <10 mg/dL TRACY (test code = TRACY) <10 Nellyoys22-646 Toxic>100 Depression of RESPITE CARE PROVIDER>400 Fatalities Reported [facility] CenterACETAMINOPHEN2021-05-01 23:16:10* Test Item Value Reference Range Interpretation Comme nts ACETAMINOP (test code = 7776096173) <10.0 10.0-30.0 L TRACY (test code = TRACY) Toxic: Greater chela n 200 ug/mL @ 4 hour post ingestion or greater than 50 ug/mL @ 12 hour post ingestion Lab Interpretation (test code = 18433-0) Abnormal [facility] Center[facility] (ALB, T.PRO, BILI T, BU/BC, ALT, AST, ALK PHOS)2021-01-30 23:14:14* Test Item Value Reference Range Interpretation Comme nts TOTAL BILI (test code = 2698388874) 0.8 mg/dL 0.1-1.1 BILI UNCON (test code = 8244181340) 0.6 mg/dL 0.1-1.1 BILI CONJ (test code = 8622732563) 0.0 mg/dL 0.0-0.3 T PROTEIN (test code = 2694178826) 7.5 g/dL 6.3-8.2 ALBUMIN (test code = 1875113926) 4.8 g/dL 3.5-5.0 ALK PHOS (test code = 4135681109) 63 U/L 34-122 ALTv (test code = 1742-6) 33 U/L 5-50 AST(SGOT) (test code = 2786439182) 36 U/L 13-40 Lab Interpretation (test cod e = 64594-6) Normal [facility] Metabolic Panel (NA, K, CL, CO2, GLUCOSE, BUN, CREATININE, CA)2021-01-30 23:13:54* Test Item Value Reference Range Interpretation Comme nts NA (test code = 8508831380) 142 mmol/L 135-145 K (test code = 3631414064) 4.3 mmol/L 3.5-5.0 CL (test code = 5858071647) 105 mmol/L 98-108 CO2 TOTAL (test code = 5771722236) 25 mmol/L 23-31 AGAP (test code = 5560518634) 2-16 BUN (test code = 8546319004) 17 mg/dL 7-23 GLUCOSE (test code = 6583405945) 86 mg/dL 70-110 CREATININE (test code = 8059860362) 0.85 mg/dL 0.60-1.25 CALCIUM (test code = 8075144374) 9.9 mg/dL 8.6-10.6 eGFR (test code = 2604078306) mL/min/1.73m2 TRACY (test code = TRACY) Association [...] or urine or abnormalities in imaging tests). [facility] (IMMUNOASSAY) - COMPREHENSIVE DRUG JCYTKX5670-06-00 23:05:57* Test Item Value Reference Range Interpretation Comme nts AMPHET (test code = 3931861638) Presumptive Positive Negative A CHACORTA U (test code = 3656572841) Negative Negative BENZO U (test code = 3528547253) Presumptive Positive Negative A Cocaine Metabolite (test code = 9861496870) Negative Negative METHADONE (test code = 6290695042) Negative Negative OPIATES (test code = 8937579723) Presumptive Positive Negative A PCP (test code = 2742866017) Negative Negative THC (test code = 6291359010) Presumptive Positive Negative A TRACY (test code [...] legal testing). Lab Interpretation (test code = 60245-8) Abnormal [facility]COVID[facility] (ID NOW RAPID TESTING)2021-01-30 22:34:55* Test Item Value Reference Range Interpretation Comme nts SARS-CoV-2 Rapid ID NOW (test code = 77557-7) Not Detected Not Detected TRACY (test code = TRACY) ID NOW COVID-19 As say is an isothermal nucleic acid amplification test intended for the qualitative detection of nucleic acid from SARS-CoV-2 viral RNA in nasopharyngeal (TECHNICAL CONSULTANT) specimens. It is used under Emergency Use [...] clinically indicated. Lab Interpretation (test code = 83906-3) Normal [facility] CenterUrinalysis2021-05-01 22:30:19* Test Item Value Reference Range Interpretation Comme nts APPEARANCE (test code = 0947826550) Clear Clear COLOR (test code = 4795112332) Yellow Yellow PH (test code = 7792369188) 4.8-8.0 SP GRAVITY (test code = 3345830022) 1.003-1.030 GLU U QUAL (test code = 3079776754) Normal Normal BLOOD (test code = 9697948674) Negative Negative KETONES (test code = 1978376322) Negative Negative PROTEIN (test code = 2887-8) Negative Negative UROBILIN (test code = 6484218510) 2.0 mg/dL Normal A BILIRUBIN (test code = 7402102480) Negative Negative NITRITE (test code = 0633915622) Negative Negative LEUK DIONE (test code = 2259095613) Negative Negative RBC/HPF (test code = 9302915081) See_Comment [Automated Veducaa ge] The system which generated this result transmitted reference range: 0 - 3 HPF. The reference range was not used to interpret this result as normal/abnormal. WBC/HPF (test code = 3765780402) <1 See_Comment [Automated [employer]educ[employer] ge] The system which generated this result transmitted reference range: 0 - 5 HPF. The reference range was not used to interpret this result as normal/abnormal. BACTERIA (test code = 9462718200) Negative Negative SQ EPITH (test code = 6570523182) <1 HPF Lab Interpretation (test code = 85619-9) Abnormal [facility] with Hmpzegbllqbw5284-92-19 22:19:35* Test Item Value Reference Range Interpretation Comme nts WBC (test code = 6690-2) See_Comment H [Automated Veducaa ge] The system which generated this result transmitted reference range: 4.20 - 10.70 10*3/?L. The reference range was not used to interpret this result as normal/abnormal. RBC (test code = 789-8) See_Comment [Automated Veducaa ge] The system which generated this result [...] 34.6 g/dL 31.2-35.0 RDW-SD (test code = 90741-5) 42.8 fL 38.5-51.6 RDW-CV (test code = 788-0) 13.3 % 12.1-15.4 PLT (test code = 777-3) See_Comment H [Automated messa ge] The system which generated this result transmitted reference range: 150 - 328 10*3/?L. The reference range was not used to interpret this result as normal/abnormal. MPV (test code = 60546-0) 9.9 fL 9.8-13.0 NRBC/100 WBC (test code = 8146801917) See_Comment [Automated me ssage] The system which generated this result transmitted reference range: 0.0 - 10.0 /100 WBCs. The reference range was not used to interpret this result as normal/abnormal. NRBC x10^3 (test code = 6994815113) <0.01 See_Comment [Automated messa ge] The system which generated this result transmitted reference range: 10*3/?L. The reference range was not used to interpret this result as normal/abnormal. GRAN MAT (NEUT) % (test code = 770-8) 79.2 % IMM GRAN % (test code = 5992017467) 0.50 % LYMPH % (test code = 736-9) 14.8 % MONO % (test code = 5905-5) 4.9 % EOS % (test code = 713-8) 0.2 % BASO % (test code = 706-2) 0.4 % GRAN MAT x10^3(ANC) (test code = 1523110416) 9.77 10*3/uL 1.99-6.95 H IMM GRAN x10^3 (test code = 2128187035) 0.06 10*3/uL 0.00-0.06 LYMPH x10^3 (test code = 731-0) 1.82 10*3/uL 1.09-3.23 MONO x10^3 (test code = 742-7) 0.60 10*3/uL 0.36-1.02 EOS x10^3 (test code = 711-2) 0.03 10*3/uL 0.06-0.53 L BASO x10^3 (test code = 704-7) 0.05 10*3/uL 0.01-0.09 Lab Interpretation (test code = 59238-0) Abnormal [facility] [id number] 20:48:00* Test Item Value Reference Range Interpretation Comme nts COVID 19 INHOUSE AG (test co de = [id number]) NEGATIVE URINALYSIS BKDGPXEL6423-35-09 16:11:00* Test Item Value Reference Range Interpretation [...] Urine Source? Clean CatchDRUGS OF ABUSE SCREEN [id number] 16:11:00* Test Item Value Reference Range Interpretation Comme nts URN COCAINE (test code = COCAURN) NEGATIVE See_Comment [Automated Veducaa ge] The system which generated this result transmitted reference range: <300 ng/mL. The reference range was not used to interpret this result as normal/abnormal. URN CANNABINOIDS (test code = CANNABURN) NEGATIVE See_Comment [Automated Button hay] The system which generated this result transmitted reference range: <50 ng/mL. The reference range was not used to interpret this result as normal/abnormal. URN AMPHETAMINE (test code = AMPHETURN) NEGATIVE See_Comment [Automated Button hay] The system which generated this result transmitted reference range: <1000 ng/mL. The reference range was not used to interpret this result as normal/abnormal. URN BARBITURATE (test code = BARBITURN) NEGATIVE See_Comment [Automated Button hay] The system which generated this result [...] result as normal/abnormal. Urine Source? Clean CatchURINALYSIS [id number] 15:45:00* Test Item Value Reference Range Interpretation [...] Urine Source? Clean CatchDRUGS OF ABUSE SCREEN [id number] 15:45:00* Test Item Value Reference Range Interpretation [...] result as normal/abnormal. Urine Source? Clean CatchURINALYSIS [id number] 14:21:00* Test Item Value Reference Range Interpretation [...] Urine Source? Clean CatchDRUGS OF ABUSE SCREEN [id number] 14:21:00* Test Item Value Reference Range Interpretation Comme nts URN COCAINE (test code = COCAURN) See_Comment [Automated Veducaa ge] The system which generated this result transmitted reference range: <300 ng/mL. The reference range was not used to interpret this result as normal/abnormal. URN CANNABINOIDS (test code = CANNABURN) See_Comment [Automated Button hay] The system which generated this result transmitted reference range: <50 ng/mL. The reference range was not used to interpret this result as normal/abnormal. URN AMPHETAMINE (test code = AMPHETURN) See_Comment [Automated Veducaa ge] The system which generated this result [...] result as normal/abnormal. Urine Source? Clean CatchURINALYSIS [id number] 14:18:00* Test Item Value Reference Range Interpretation [...] Urine Source? Clean CatchDRUGS OF ABUSE SCREEN [id number] 14:18:00* Test Item Value Reference Range Interpretation [...] as normal/abnormal. Urine Source? Clean CatchBASIC METABOLIC [id number] 12:13:00* Test Item Value Reference Range Interpretation [...] CA) 9.9 mg/dL 8.5-10.1 N HEPATIC FUNCTION DCRHF9626-07-11 12:13:00* Test Item Value Reference Range Interpretation [...] reference range due to change in reagent. KBFDEFELDHAJG8720-12-35 12:13:00* Test Item Value Reference Range Interpretation Comme nts ACETAMINOPHEN (test code = ACET) < 10 mcg/mL 10-30 L A RANGE OF 10-30 mcg/mL IS A THERAPEUTIC RANGE. TOXIC CONCENTRATIONS: >150 mcg/mL AT 4 HOURS AFTER INGESTION >= 50 mcg/mL AT 12 HOURS AFTER INGESTION QQFHTXTXSM7925-12-36 12:13:00* Test Item Value Reference Range Interpretation Comme nts SALICYLATE (test code = RENALDO) < 3.0 mg/dL 2.8-20.0 N [id number] 12:13:00* Test Item Value Reference Range Interpretation [...] ANADDITIONAL CHARGE TO THE PATIENT. CBC W/O [id number] 11:49:00* Test Item Value Reference Range Interpretation [...] 9.7 fL 6.7-11.0 N COVID 19 INHOUSE [id number] 00:12:00* Test Item Value Reference Range Interpretation Comme nts COVID 19 INHOUSE AG (test co de = [id number]) NEGATIVE URINALYSIS JXSKKBVY5267-35-93 20:58:00* Test Item Value Reference Range Interpretation [...] Urine Source? Clean CatchDRUGS OF ABUSE SCREEN [id number] 20:58:00* Test Item Value Reference Range Interpretation [...] (test code = AMPHETURN) NEGATIVE See_Comment [Automated Button hay] The system which generated this result transmitted reference range: <1000 ng/mL. The reference range was not used to interpret this result as normal/abnormal. URN BARBITURATE (test code = BARBITURN) NEGATIVE See_Comment [Automated Button hay] The system which generated this result [...] (test code = OPIATURN) NEGATIVE See_Comment [Automated Veducaa ge] The system which generated this result [...] (test code = METHAURN) NEGATIVE See_Comment [Automated Veducaa ge] The system which generated this result transmitted reference range: <300 ng/mL. The reference range was not used to interpret this result as normal/abnormal. Urine Source? Clean CatchBASIC METABOLIC [id number] 20:58:00* Test Item Value Reference Range Interpretation [...] CA) 8.8 mg/dL 8.5-10.1 N HEPATIC FUNCTION [id number] 20:58:00* Test Item Value Reference Range Interpretation [...] reference range due to change in reagent. LLMBXYAZ-H8564-03-14 20:58:00* Test Item Value Reference Range Interpretation Comme nts TROPONIN-I (test code = TROPI) < 0.006 ng/mL 0-0.045 N VZHUTCUGCLFZL5809-14-69 20:58:00* Test Item Value Reference Range Interpretation Comme nts ACETAMINOPHEN (test code = ACET) < 10 mcg/mL 10-30 L A RANGE OF 10-30 mcg/mL IS A THERAPEUTIC RANGE. TOXIC CONCENTRATIONS: >150 mcg/mL AT 4 HOURS AFTER INGESTION >= 50 mcg/mL AT 12 HOURS AFTER INGESTION DOBIUWUACA7015-41-11 20:58:00* Test Item Value Reference Range Interpretation Comme nts SALICYLATE (test code = RENALDO) < 3.0 mg/dL 2.8-20.0 N [id number] 20:58:00* Test Item Value Reference Range Interpretation [...] TO THE PATIENT. - CT HEAD/BRAIN W/O [id number] 20:52:00 [facility] : 1985 Sex: M Name: TEJ GUADALUPE [facility] : 1985 Age/S: 35 / M [address] [facility] Unit #: [id number] Loc: [place] [address] Phys: Shaggy Morrow MD Acct: [id number] Dis Date: Status: PRE ER PHONE #: [phone] Exam Date: 12/13/20202017 FAX #: [phone] Reason: CONFUSION EXAMS: CPT CODE: [id number] CT HEAD/BRAIN W/O CONT 87302 HISTORY: CONFUSION TECHNIQUE: Noncontrast 2.5 mm axial [...] DLP: Trnscb Date/Time: 12/13/2020 (2051) t.SDR.RR31 Orig PrintD/T: S: 12/13/2020 (2054) PAGE 1 Signed Report URINALYSIS [id number] 20:39:00* Test Item Value Reference Range Interpretation [...] Urine Source? Clean CatchDRUGS OF ABUSE SCREEN [id number] 20:39:00* Test Item Value Reference Range Interpretation [...] result as normal/abnormal. Urine Source? Clean CatchURINALYSIS [id number] 20:29:00* Test Item Value Reference Range Interpretation [...] Urine Source? Clean CatchDRUGS OF ABUSE SCREEN [id number] 20:29:00* Test Item Value Reference Range Interpretation Comme nts URN COCAINE (test code = COCAURN) See_Comment [Automated Veducaa ge] The system which generated this result transmitted reference range: <300 ng/mL. The reference range was not used to interpret this result as normal/abnormal. URN CANNABINOIDS (test code = CANNABURN) See_Comment [Automated Button hay] The system which generated this result transmitted reference range: <50 ng/mL. The reference range was not used to interpret this result as normal/abnormal. URN AMPHETAMINE (test code = AMPHETURN) See_Comment [Automated Veducaa ge] The system which generated this result transmitted reference range: <1000 ng/mL. The reference range was not used to interpret this result as normal/abnormal. URN BARBITURATE (test code = BARBITURN) See_Comment [Automated Veducaa ge] The system which generated this result [...] as normal/abnormal. Urine Source? Clean CatchCBC W/O [id number] 20:22:00* Test Item Value Reference Range Interpretation [...] Notes Date/Time Note Provider Source 2022-06-01 16:47:23 nWmuz+WT/B8vTAlDB/Ac tGSpHtTF+dP lt/s6zJ+1qWJ+8TDrw3rkRxspDEjkDH /k0800-31-37Q33:47:23Associated Order(s): CONSULT TO PHARMACY-AMINOGLYCOSIDESFormatt ing of this [...] with any questions. Sil Soliz, Pharm.D., BCIDPClinical Clay Preparation Supervisor - Infectious DiseasesCisco: [id number] signed by Sil Soliz [facility] at 06/01/2022 4:48 PM WUC45719-9Kemnbtg fvyvWD4545-17-04M51:48:27Consul t noteTXT1.2.840.726170.1.13.43.2 .7.2.773697|[id number] for patient diqy73018-2Scivrhp rhmmMZ476406724Etczrcy Jelani Soliz [id number] 3ZSXL8889-75-92J13:48:271.2.840 .325113.1.72.3.15|1.2.840.84686 0.1.13.43.2.7.2.727879_[id number] 31 Sil Soliz [facility] 2022-05-31 16:00:25 xaOsCOiu0YEgdh81+jXs mXcISOkkM3I b3PfSEllfHpp4GAw8iU/6OSpRxHOyvB lm8247-03-17B54:00:25 Pharmacy Aminoglycoside Monitoring NoteIndication: NTM SSTI/abscessDay of [...] with any questions. Sil Soliz, Pharm.D., BCIDPClinical Clay Preparation Supervisor - Infectious DiseasesCisco: [id number] signed by Sil [facility]izMER[facility] at 05/31/2022 4:00 PM NDM30891-7Hxijodw odfhWB6148-46-88V79:00:59Consul t noteTXT1.2.840.544850.1.13.43.2 .7.2.074356|[id number] for patient wwld62556-1Ojanuwf noteLNProMedica Bay Park Hospital[address] KellyCrncYdufbqzNtsuazoAXHP755616247 7SNMZ6724-21-67I39:00:591.2.840 .829461.1.72.3.15|1.2.840.61571 0.1.13.43.2.7.2.727879_[id number] 47 [facility] 2022-05-30 14:28:02 J+0z5rKQJvYl8eCx1wGt BWxrUD6ueQ8 3tJSzBpOgbKRSjiiHmJhmSnCLiPXgAI Ih0539-37-12I17:28:02 Pharmacy Aminoglycoside Monitoring NoteIndication: NTM SSTI/abscessDay of [...] with any questions. Sil Soliz, Pharm.D., BCIDPClinical Clay Preparation Supervisor - Infectious DiseasesCisco: [id number] signed by Sil Soliz [facility] at 05/30/2022 2:36 PM DMT59055-1Pvfawwm iokdEB6042-55-36Q86:36:01Consul t noteTXT1.2.840.870188.1.13.43.2 .7.2.291736|6211694719DWBenjpep for patient ddsz84981-0Dymcprv noteLNProMedica Bay Park Hospital25[address] [facility] MichiganIeocPixahxaIzcwnbiMAXR988160235 7DFYP5685-23-06B44:36:011.2.840 .320959.1.72.3.15|1.2.840.06289 0.1.13.43.2.7.2.727879_[id number] [address] [place] [address] 2022-05-29 12:08:26 MpzhUkT+kPp1uJDk1SzO cUjSr1TiO88 QIHL08QhoWeminWqkVvM46sNpVyZ+Dy Np9182-76-73F73:08:26 Pharmacy Aminoglycoside Monitoring NoteIndication: NTM SSTI/abscessDay of therapy: 5 Target concentration: dosing per Spink nomogram, targeting goal peak ~25-45 mcg/mL, trough [...] us with any questions. Mariam Lepe [facility].BCOPClinical Clay Preparation Supervisor Hematology/OncologyCisco : [phone] signed by Mariam Lepe [facility] at 05/29/2022 12:09 PM KPA16228-6Ftclqwp jrmcDU3773-45-23Q74:09:49Consul t noteTXT1.2.840.607287.1.13.43.2 .7.2.231160|2631625655CAIxwqjjp for patient wzll59718-4Ktayzsj hkysPN47744691Rrdhifr Rost[address]TXTX[address] 1RZMS5969-09-22I61:09:491.2.840 .614546.1.72.3.15|1.2.840.72293 0.1.13.43.2.7.2.727879_[id number] 42 Mariam Lepe [facility] 2022-05-28 10:27:53 CiCDJnTJGN/vfm2510d3 fHhiqE9HuWw YKGLlhw5fcbrlFcXThb1ofdk1IUqmr8 hu9899-74-26E37:27:53 Pharmacy Aminoglycoside Monitoring NoteIndication: NTM SSTI/abscessDay of therapy: 4 Target concentration: dosing per Spink nomogram, targeting goal peak ~25-45 mcg/mL, trough [...] us with any questions. Mariam Lepe [facility].BCOPClinical Clay Preparation Supervisor Hematology/OncologyCisco : [phone] signed by Mariam Lepe [facility] at 05/28/2022 10:29 AM WAP70476-4Ddvsvfu veuqRH8029-19-67O08:29:36Consul t noteTXT1.2.840.806537.1.13.43.2 .7.2.697106|5914945246ZUYofbuix for patient veso65844-3Yinrvlq [address]TXTX[address] 7ZJLO8476-33-67A62:29:361.2.840 .907475.1.72.3.15|1.2.840.87297 0.1.13.43.2.7.2.727879_[id number] 61 [facility] 2022-05-27 12:23:47 HJbfqL8q4bw6ctTxsUFn k8JUotZXRUF 8pNIHdCdg3YMz2TZ4I1LTRWQcQXMu1A wv2375-71-93F30:23:47 Pharmacy Aminoglycoside Monitoring NoteIndication: NTM SSTI/abscessDay of therapy: 3 Target concentration: dosing per Joe nomogram, targeting [...] us with any questions. Ruchi Olsen, PharmD, [facility]ITALCPPhone: [phone] signed by Ruchi OlsenMERCY HOS[facility] at 05/27/2022 1:04 PM AEE14138-8Dcewcpu peseWP7523-56-03O91:04:50Consul t noteTXT1.2.840.452324.1.13.43.2 .7.2.653031|3188209952CKKodqvvh for patient wfhq48527-5Xelhwhe fuupCJ213692558Cagq Sigmon [address]TXTX[address] 1VMBW1971-68-22O15:04:501.2.840 .378937.1.72.3.15|1.2.840.56345 0.1.13.43.2.7.2.727879_[id number] 11 Ruchi Olsen [facility] 2022-05-26 09:18:39 03Y3y6/WZOAudXV8++ck 13NUwMhkYaI 5J1Wef5Fhw/xgVRRiG4UvHafj5S5FQF UC3163-62-05O04:18:39 Pharmacy Aminoglycoside Monitoring NoteIndication: NTM SSTI/abscessDay of therapy: 2 Target concentration: dosing per Spink nomogram, targeting goal peak ~25-45 mcg/mL, trough ~5 mcg/mL Concomitant antibiotics: Azithromycin, tigecyclineAllergies: No known allergies Pertinent Objective Labs: Date dose/frequency concentration (peak/trough/random) 05/26 800mg q24h 5.9 (9h random) Microbiology:pending Assessment:1. CrCl: >120,Scr/BUN stable, 2. Continues on amikacin 800mg (10mg/kg) q24h 3. Random 9h level obtained today demonstrates dose appropriate per Spink nomogramPlan: 1. Will Continue current dose2. Labs Ordered: will order 2 levels: 2-h and 8-h post dose levels to confirm Thank you for the opportunity to participate in the care of this patient. Please do not hesitate to contact us with any questions. Ruchi Olsen, PharmD, [facility]ITALPhone: [phone] signed by Ruchi Olsen [facility] at 05/26/2022 9:36 AM MXM77997-3Bogmrff kbxtZP2453-87-11J72:36:50Consul t noteTXT1.2.840.394649.1.13.43.2 .7.2.864969|5846877007KDQpqahkn for patient ntpd88330-8Mqzdvgy [facility] [place], [place] [address]SxytIwuunkgJytgzgeLNKS134277636 2SVWJ5771-15-25A21:36:501.2.840 .812141.1.72.3.15|1.2.840.16543 0.1.13.43.2.7.2.727879_[id number] 20 [facility] 2022-05-25 08:07:02 RYWxkVL/R4LTDAv9y7im MWA8FnsTQxC QDoWoW/VuDs2TR1jf9nGvp2w5MqOfkL uN5893-82-35U11:07:02Associated Order(s): IP CONSULT TO INFECTIOUS DISEASE Images [...] another attempt at antibiotics and I&D at [facility]. He came back with worsening lesions and was admitted for same. We are consulted for his cultures growing AFB 4+. 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 He has not travelled outside of [place]ne[place] recently and does not have any sick [...] and documented in the appropriate sections in [facility].Immunization history: There is no immunization history on [...] Data: All labs, images, and data reviewed. 64804-2Yqmucoq mycnHY2093-32-18S07:04:27Consul t noteTXT1.2.840.178417.1.13.43.2 .7.2.781162|2314119996VOCpokbhd for patient htwt68538-4Robilxc noteSt. Peter's Hospital2525 [facility] MichiganHntoGnvvsocEkayvvwTYAK665648132 5LVIH8339-73-97F11:04:271.2.840 .379513.1.72.3.15|1.2.840.30903 0.1.13.43.2.7.2.727879_[id number] [address] [place] [address] 2022-05-23 21:39:21 /7rbxdmgkjxuP8ypaWcA zb9cmqTEJqx R7noc1ymomYd6fK4LtLwbaH5x2IOKw7 Zy2663-96-07Z29:39:21Associated Order(s): IP CONSULT TO HAND SURGERY Plastic [...] to followChristopher Germán, MDPlastic and Reconstructive Surgery, ZTN5FmrskhScripps Green HospitalPager: [phone] 2021 9:39 PMSubjective: Chief Complaint: forearm painHistory [...] with no changes. No need to repeat 60175-9Pyktcxa ejvlBT409234LetfnsfaveAdrian Anderson B1.2.840.896410.1.13.43.2.7.2.8 19160WdqyojsclaYvaknUobsb OCW8065-24-30S08:42:00Consult noteTXT1.2.840.921070.1.13.43.2 .7.2.398473|6962852235EXNymommw for patient vwqc76433-2Tumtqtj noteLNProMedica Bay Park Hospital2525 [facility] MichiganTltmIzomqijMjolsomXWIX334371371 2MQIK9336-52-57L75:50:061.2.840 .724107.1.72.3.15|1.2.840.21907 0.1.13.43.2.7.2.727879_[id number] 43 [facility] History and Physical Notes Date/Time Note Provider Source 2022-05-23 22:01:59 1jWJ028dwP61yv8qgWsx NuvsRLhHcGO 5YAYWDg1F4wzZ6gT7VEq0PZI6m8xrOZ QE3906-53-19C15:01:59 Medicine Team B Admission History & PhysicalAssessment/Plan:Tej [...] CODEEmergency Contact: Primary Emergency Contact: Lydia GUADALUPE, IznvbDeW[facility] TPQ6Fzhomv[address] [place], [place] [address] PM, 05/23/2022 Chief Complaint: forearm pain History [...] alert and orientedLabs & Imaging: reviewed [facility]. ssociated attestation - Hank Kilpatrick MD - 05/24/2022 2:10 AM CDT Please see my separate note for my attestation.78982-8Zmjdphx and physical hmnfKC486057Uwuvd, Vishal1.2.840.465897.1.13.43.2. 7.2.006688JbjjpAwmjfsD, JP8238-94-23C69:10:26History and physical noteTXT1.2.840.919308.1.13.43.2 .7.2.808852|7174837677KHMvmrbwj for patient slts31036-3Hfpjiqw and physical noteLNInternal MedicineInternal MedicineProMedica Bay Park Hospital[address] [place], [place] [address]QieuQcsjicwKtcnijxUHFU619468716 6XHZP7307-48-06Y41:10:261.2.840 .058548.1.72.3.15|1.2.840.46223 0.1.13.43.2.7.2.727879_[id number] Internal Medicine [facility] Procedure Notes Date/Time Note Provider Source 2022-05-31 08:35:51 6dBRd00ZZ5wQjn6X77hd bMB5WMR8mbT2oEytR 9g0ktY16FIY6JocdFH3Qq+Ls+K88239-31-16 T08:35:51Procedure(s): I& D OF ABSCESS WITH PACKING [...] Loss: MinimalSpecimens Collected: Culture sentComplications: nonePrimary Proceduralist: Gabe Dunlap MDSupervising Physician: JUAN Englerocedure in Detail: The area [...] the procedure well and there were no complicationsChristopJUAN Stringerlastic and Reconstructive Surgery, HCU1JxgyvdScripps Green HospitalPager: [phone] 2021 8:36 AM 40146-6Yncypnqsf evkbCV677312PtKrysta1.2.840.756063.1.13.43.2.7.2.83 7934GaIaqruqNM5190-50-45N44:00:54Proc edgar noteTXT1.2.840.949216.1.13.43.2.7.2.7 55306|6472521799ZYRityhifyw for patient zbvi55887-8Pkxvlxiwa noteLNProMedica Bay Park Hospital[address] [place], [place] [address]RabaKgoeildDbirihoVJPR3104285465KMSW6 855-15-64W03:49:121.2.840.377110.1.72 .3.15|1.2.840.154094.1.13.43.2.7.2.72 7879_[id number] [facility] 2022-05-24 16:29:09 gqmkzR/+3anhlWV1Tyca 4sDVqqWsn8vbmp2ud bDFCNnOqamQ0tD+8w0N8g8SYyjW6963-08-00 T16:29:09Procedure(s): I& D OF ABSCESS WITH PACKING [...] 1Dressings: AppliedEstimated Blood Loss: MinimalSpecimens Collected: Culture q0Owklytqmitdnw: nonePrimary Proceduralist: MULU Carrilloupervising Physician: JUAN Andersonrocedure [...] microbiology lab.Gabe Dunlap, MDPlastic and Reconstructive Surgery, FMU2Kbiftn[address] [place], [place] [address]Pager: [phone] 2021 4:30 PM 26194-7Gskfdcqwr afstCC731586RjthfctbcwAdrian Anderson B1.2.840.366764.1.13.43.2.7.2.693904K Aaron VRE6653-13-68U79:42:01Procedure noteTXT1.2.840.098831.1.13.43.2.7.2.7 65230|4815619333DDMnafcjvfm for patient syrj09117-8Dluaefpxz noteLNProMedica Bay Park Hospital2525 Natalie BushUycgEspcwylMxbphlkACYC7084816214XNOF1 308-84-20U81:41:491.2.840.473153.1.72 .3.15|1.2.840.401568.1.13.43.2.7.2.72 7879_[id number] [facility] Notes Date/Time Note Provider Source 2023-11-01 14:19:23 XSAlRqP6/6hrYRhwBofO6KDMJwcfzHqKv6umSP xaAX2ZLtFZXC1os5u8KECKuzGO6161-91-43X6 4:19:23 Chief ComplaintPatient presents withAnxietyRefill RequestPast Medical [...] [place] [address]-8Otsvkvvgq department LbasTP3231-68-58E72:20:13Emergency department NoteTXT1.2.840.220868.1.13.104.2.7.2.7 32757|7028895348FECgjzmujeh for patient klby32922-8BflnHNFMEYQLPZSJwatctwyd C-CDA narrative ollj334395953Ueiryoer M Felix RN[address] StreetNupdPgzaumzvyYflnwcsafYMSD9716504479VU RRBRIASPIFPZPZIUAJLD9268-98-02T35:20:1 31.2.840.346529.1.72.3.15|1.2.840.1143 50.1.13.104.2.7.2.727879_[id number] Kelly German Jordy MARTINI [facility] 2023-11-01 13:00:35 uParyPKv/HiuHDG9JK0T9X0hotO1UY5C0fyxyI afw76zCCMPblumJDdsoEH0ihQv4543-26-79A4 3:00:35 Patient to ED for anxiety due to doesn't have any of his clonazepam 2mg tabs anymore. He recently lost his grandmother and grandfather and been taking more than he is supposed to. He has been in withdrawal for 5 days. 66852-9Dzmfgfloi department Triage dcktNR3267-09-20V49:01:57Emergency department Triage noteTXT1.2.840.121081.1.13.104.2.7.2.7 24211|6641730631PWHuuljdzvb for patient mqai74082-8Xsdhpspnf department NoteLNNARRATIVEFormatted C-CDA narrative ecwe912181396SobkiabChucky Hawkins RN[address] StreetTXTX[address]5577555US DPGOVZBQAEZCYVGCOKLF2956-18-49V87:01:5 71.2.840.109729.1.72.3.15|1.2114 50.1.13.104.2.7.2.727879_[id number] Chucky Hawkins RN [facility] 2023-10-02 12:30:00 0EqumSopLLhHEo3ueRZPvYwlwfS6wj8pU/4AnK j40vVvFe45sVHJTwERfBRJD0Wm4895-06-82Q1 2:30:00 Pt given printed and verbal discharge [...] with steady gait, in no apparent distress. 03491-1Nzjewlyqn department MghwHI1467-82-25N05:30:56Emergency department NoteTXT1.2.840.594353.1.13.104.2.7.2.7 56830|1596842017EKHabhvurxa for patient ynes98620-2VbrpPBVDAPUXNKTBltwkffzs C-CDA narrative rggv263472324NqssgAyah Ruffin RN[address] FqsqWzddfbldeFcuvegbsxSEIY0242170118OT UYJAISOLMQYYYOVQHLUO1496-93-03R79:30:5 61.2.840.349834.1.72.3.15|1.2.840.1143 50.1.13.104.2.7.2.727879_[id number] Ayah Ruffin RN [facility] 2023-10-02 11:56:31 9DbGKchWrDveKh0JWlCz/5Z7xFGXi4Q00SPdt9 JWp4XrGQnm0K+3xbcYVfxANYT/5279-64-66V6 1:56:31 Patient states: "I came here yesterday and checked in but I left. I'm detoxing off klonopin. I wanted to know if yall can refill it. My doctor doesn't do klonopin anymore." 85226-0Ckpviwwxl department Triage oqkkZD1857-75-40L40:57:33Emeformerly [facility] department Triage noteTXT1.2.840.946869.1.13.104.2.7.2.7 22035|2440391190EUKzntzlxyk for patient yfxz33517-3Ukmpcwfyw department NoteLNNARRATIVEFormatted C-CDA narrative kqkl104435876Ztcwd M Cruz RNUT[address] GlalTvnufvvbxJxjceaocdWEWJ7705844967YK HIHGSRMLCOILDRDKGVFA8349-55-10Y95:57:3 31.2.840.579492.1.72.3.15|1.2.840.1143 50.1.13.104.2.7.2.727879_[id number] Elisabeth Soto RN [facility] 2023-10-02 11:43:00 Agg2KNtYd9sNIgUKU7DpMFoZu84Jh1uENecH7d Xr/89M5ph6ZOttUpNdU5JBq0fK1344-80-54J5 1:43:00 [facility] Emergency Department NotePatient Name: Tej Reyna of : 1985 38 year old maleTreatment Room: [facility] Record Number: [id number] Care Physician: Rene Smith (Inactive)Patient Escorted by: [...] Complaint:Chief ComplaintPatient presents withOtherMedication refillHistory of Present Illness:QLI48qk M with anxiety and prescribed klonopin 2mg presents today needing refill. He states he is not doing good, feels his heart racing and keeps breaking out into sweats. He states he is trying to get ahold of [facility]gybackr and anybody else who can see him. [...] 1 mgFirst Provider Eval:ED EventsDate/Time Event User Szcgmmff38/01/24 1207 Medical Screening Begins DEB BURGOS MD [...] on fileFollow-up:Electronically signed by:Deb Burgos DO10/02/23 1220 37540-8Qlshrovct Emergency department XmagLL4933-72-97S64:20:50Physician Emergency department NoteTXT1.2.840.379572.1.13.104.2.7.2.7 59538|[id number] for patient moyg73443-7Pumfobghs department NoteLNNARRATIVEFormatted C-CDA narrative text86 Barry [id number] QRIJKOMMLWMSVEWQRXBW3571-55-26Z68:20:5 01.2.840.320829.1.72.3.15|1.2.840.1143 50.1.13.104.2.7.2.727879_[id number] [facility] 2023-09-28 19:25:10 pEOZLLMh+B6csDXG36N95lk7ZUIdKVtvtrpWBk 2Q24JGXL6oodlczaZHZ6DeyKxN0899-50-19V1 9:25:10 Pt unable to be located. Never was seen by provider. 64085-5Wwfsyvixm department NespTY1586-36-42M39:25:28[facility] department NoteTXT1.2.840.932952.1.13.104.2.7.2.7 08542|[id number] for patient gtxw74453-1KeooTMKBUVJUHEKRevaaqltw C-CDA narrative [id number] D Roman RNUT[id number] JZVRHQBZERWOTWVGBHTT1266-08-80Y72:25:2 81.2.840.976687.1.72.3.15|1.2.840.1143 50.1.13.104.2.7.2.727879_[id number] Medina Presley RN [facility] 2023-09-28 18:17:15 WBpEO1R7WYcPoQFZ8VXMKaKyVmQvKyHvpLVtCx 6Nn1NDOrkJ1gIs7ANIhhYQJESv5669-75-86O9 8:17:15 Pt's states his doctor quit prescribing [...] something and he won't prescribe me any." 37774-9Ndptzxapx department Triage xxakBU9102-23-15P25:19:10Emeformerly [facility] department Triage noteTXT1.2.840.955165.1.13.104.2.7.2.7 86995|[id number] for patient anor44652-3Niufawvzg department NoteLNNARRATIVEFormatted C-CDA narrative [id number] Fief RN[id number] BBDJGHCQQVCDXARJWZKI4366-62-16Q82:19:1 01.2.840.832281.1.72.3.15|1.2.840.1143 50.1.13.104.2.7.2.727879_[id number] Liset Blancas RN [facility] 2023-09-28 18:09:00 wPzpSxtDaL5xezJQH0/VtIUTycwTDS+rNAI4JR PLMeG6L+Y9KJBNK1b6bRCKaZyl7743-37-87L7 8:09:00 Images from the original note were not included.Patient never seen by Ellen patel was compiled from his recent PDMP records:Dyana Jorgensen MD09/28/231922SchDyana silva MD09/28/231922 55679-8Wmgymysfs Emergency department OzlpUN6107-03-05B88:23:40Physician Emergency department NoteTXT1.2.840.603444.1.13.104.2.7.2.7 79554|[id number] for patient auii26152-9Zhlcowxnz department NoteLNNARRATIVEFormatted C-CDA narrative text[address] Lmou[id number] UJYFTZTLWLIWHMAJERCF0555-23-81W30:23:4 01.2.840.381764.1.72.3.15|1.2.840.1143 50.1.13.104.2.7.2.727879_[id number] [facility] 2022-06-03 18:30:00 759q0iZREv/SRULqhaA9m1eET6dJ2pscSfIj5w Xm+ehFXvaEjXyobtx+q9B14zEs4350-35-02E2 8:30:00 Gave pt appointments, provided wound care, paper prescriptions were delivered via doctor bedside, taught about s/s of infection, removed IV, pt left with belongings via transport, no distress noted.Gave pt 3 weeks of wound care supplies.Pt left via [employer]. pick up worker provided instructions on how to request a [employer].No needs at this time. [id number] Note1.2.840.212237.1.13.43.2.7.4.63824 0.00953993-03-60P93:18:43Flowsheet NoteTXT1.2.840.431874.1.13.43.2.7.2.72 7879|[id number] for patient [id number] [facility] [facility] MichiganYkzaEhvlegqXzjhirkGHXA6224560634JNSR04 23-06-02T19:18:431.2.840.381991.1.72.3 .15|1.2.840.216888.1.13.43.2.7.2.51764 9_[id number] [facility] 2022-06-03 18:30:00 1ZFpej2hEBVeIb/8n2lefn2w+Hl9v+PNAXSJwW 80ZRMwNJyT0DDcALz9jlgGX75B0778-88-45A9 8:30:00 Problem: Hospital Acquired Venous Thromboembolism (VTE)Goal: [...] deep vein thrombosis or pressure ulcers.Outcome: Resolved [id number] of Care1.2.840.930450.1.13.43.2.7.4.41686 0.39880929-98-09T29:47:16Plan of CareTXT1.2.840.443975.1.13.43.2.7.2.72 7879|4941611765GEFvhrffuyq for patient vbeo83176-4CyzjKRLEZHptths Health [address] [place], [place] [address]PvcqNnvmgjlCeyoptfKCFP9090328880DTCE68 22-09-02T18:47:161.2.840.870977.1.72.3 .15|1.2.840.053714.1.13.43.2.7.2.63206 9_[id number] [facility] 2022-06-03 17:38:37 6802UTIpJe0h2jM27LmFv3VysE06MLQH+fEaUa 0miP++ZQaC9r3PqqxLCs6rPKuW2224-27-78R6 7:38:37 06/03/22 1737 Intervention Financial Needs Other (Comment)([facility] SELF-PAY/SELF-PAY SCREENED) Referral Data Referral Reason Wound [...] to provide patient's with wound care supplies.Glory JORDANN ACM-RNEC Nurse Case ManagerPromedica Bay [facility] / [facility]# [phone] [id number] Note1.2.840.215519.1.13.43.2.7.4.72728 0.33437298-71-19A14:49:49Flowsheet NoteTXT1.2.840.503109.1.13.43.2.7.2.72 7879|5566630369UIFudovehip for patient rynr21480-5WjdwLT398519491Cjhophabs D Real RNProMedica Bay Park Hospital[address] [place], [place] [address]LarnXofsjlgIpzpjnyDHNO9513357615EUYX78 23-06-02T17:49:491.2.840.839972.1.72.3 .15|1.2.840.265512.1.13.43.2.7.2.80220 9_[id number] Glory Tran RN [facility] 2022-06-03 04:38:15 5Z4FDDcVxSxfvXwjRNtcIF9n9p2x5M5wi59kaP iqvx9wjVYWRVOlonh21eSt0/RG9363-19-85S8 4:38:15 Problem: Hospital Acquired Venous Thromboembolism (VTE)Goal: [...] to perform desired activities.Outcome: Met This Shift 8647841Rufz of Care1.2.840.045200.1.13.43.2.7.4.80658 0.09417594-72-04R63:38:19Plan of CareTXT1.2.840.139158.1.13.43.2.7.2.72 7879|7028269098FIYmwrnaaqq for patient oqsb52201-0LygaFV363193314Orlzgso [facility]aHHSHarris [facility] Tyiycp3197 [facility] MichiganYiuqVhiuvwmLreaejjRXYC7350460700NEXN72 23-06-02T04:38:191.2.840.723390.1.72.3 .15|1.2.840.821237.1.13.43.2.7.2.25475 9_[id number] Kristine Melgoza [facility] 2022-06-02 19:47:16 FFdnclPqHXeAKkyRBysOahsf3Q0QB87nGUMrgu ppBMLSIuDrUiGxb72ZhWfnm+109896-27-35M6 9:47:16 Problem: Hospital Acquired Venous Thromboembolism (VTE)Goal: [...] thrombosis or pressure ulcers.Outcome: Met This Shift 6351568Otom of Care1.2.840.626412.1.13.43.2.7.4.78320 0.66988005-17-28D52:47:18Plan of CareTXT1.2.840.906860.1.13.43.2.7.2.72 7879|8864734209AYRhxsvshkl for patient onft98127-8BiyyDDHPMGbqqnrWadsworth Hospital25[address] [facility] MichiganVrttEmeuoqiPzxtictUSNS1653725019SHDR95 23-06-01T19:47:181.2.840.139924.1.72.3 .15|1.2.840.826490.1.13.43.2.7.2.29888 9_[id number] [facility] 2022-06-02 04:02:37 XANlpatJQopwqsSGb9jDiuJxfqtMWPTUzQDXub rN56ma2oVRh8m/RxQD4NWOGWQO5646-24-90L9 4:02:37 Problem: Hospital Acquired Venous Thromboembolism (VTE)Goal: [...] to perform desired activities.Outcome: Met This Shift 1352229Xifw of Care1.2.840.275996.1.13.43.2.7.4.78886 0.00094757-83-58B19:02:40Plan of CareTXT1.2.840.607588.1.13.43.2.7.2.72 7879|4087472111EYYwtekagkf for patient ayuk15684-0GovgQGUVOOhbnefWadsworth Hospital25[address] [facility] MichiganQvqlYdwdzzyFcsjqnjHUNO5543876163QSHL44 23-06-01T04:02:401.2.840.194985.1.72.3 .15|1.2.840.834354.1.13.43.2.7.2.21108 9_[id number] [facility] 2022-06-01 16:07:00 GsSrwoI8m1r4JSdHly3tZqyljTxlZd6tuqD3DK b7kjtueyoJ0G8KY23NgnMeR/yN1593-36-85F5 6:07:00 Problem: Hospital Acquired Venous Thromboembolism (VTE)Goal: [...] Be Safe And ComfortableOutcome: Met This Shift 3147063Ozag of Care1.2.840.646661.1.13.43.2.7.4.43274 0.73471666-59-47H98:07:12Plan of CareTXT1.2.840.580594.1.13.43.2.7.2.72 7879|5523247310JTRyywddbzw for patient jxfs72578-6YqstRWGKDArgakzWadsworth Hospital2525 [facility] MichiganXbtbSdbqrpdHocgbhvBUSG5426081661KLRG15 23-05-316:07:121.2.840.429304.1.72.3 .15|1.2.840.197190.1.13.43.2.7.2.14853 9_[id number] [facility] 2022-06-01 16:04:25 Y0Ux1hPkdsH4pRkdo+VDPv+x5VJE+qRGw5K/GL ClbEfVBJqP3xiPHo0g4ctOZs3W4795-86-87J6 6:04:25 06/01/22 1602 Intervention Coordination of Care Multidisciplinary team(S/p I+D of 4x abscesses on 05/25 and 05/31.infection) Disease Management Meets criteria for Inpatient Medical Necessity Screening Concurrent review([id number]) Oumou Villa MSN, BSN, [facility]-RNClinical Nurse Case [phone] 7743787Gsuihsspt Note1.2.840.994998.1.13.43.2.7.4.28619 0.21759583-90-79L23:04:51Flowsheet NoteTXT1.2.840.148828.1.13.43.2.7.2.72 7879|5833098214YJRmvwqruov for patient zkgx57176-3NukxSS994951659Bcjvuio Daisy MARTINIProMedica Bay Park Hospital25[address] [facility] MichiganSimkVqrgvfdUaiarmmLUDT8261399765JSMG44 23-05-316:04:511.2.840.766019.1.72.3 .15|1.2.840.922820.1.13.43.2.7.2.04292 9_[id number] Oumou Villa [facility] 2022-06-01 05:30:00 hijiRnZHuIQsOd45zOMdfM3RQwOLo2PG9W6trt AXeqPojEBWZLGJRv1ymK5u7ft79233-15-22Y4 5:30:00 Problem: Falls / InjuryGoal: Absence of [...] new arrhythmias (if applicable).Outcome: Met This Shift 1178744Rsbo of Care1.2.840.108077.1.13.43.2.7.4.89971 0.99065698-07-26G08:50:41Plan of CareTXT1.2.840.064682.1.13.43.2.7.2.72 7879|4439242433HNWfjtxxpgy for patient danp82096-5HfqbVH231929377Wqgylk Osondarmond MARTINIProMedica Bay Park Hospital[address] [facility] MichiganSpgdFyqwxvhZxoozaqGBIH9008305929YDGF53 23-05-31T07:50:411.2.840.709275.1.72.3 .15|1.2.840.007536.1.13.43.2.7.2.41103 9_[id number] Jessikakris Summerskira [facility] 2022-05-31 16:17:37 o4HOGGumCOCBq2Ow/Bd5LnK1v14HJfDMxTCigG 0mM0hBu+EsJfxDbB0W94vAzzXn2575-78-12F1 6:17:37 Problem: Hospital Acquired Venous Thromboembolism (VTE)Goal: [...] swelling, drainage, and pain.Outcome: Met This Shift 7117710Ghxj of Care1.2.840.704015.1.13.43.2.7.4.12045 0.37930174-86-99V32:17:53Plan of CareTXT1.2.840.097370.1.13.43.2.7.2.72 7879|7939051288JBCagcjnyes for patient qkco13877-5CnxhKNRDDNdnzva Health Mqfphz5759 Natalie VtycGybxquaUichiupUQEI2499984876KBQS11 23-05-30T16:17:531.2.840.965264.1.72.3 .15|1.2.840.284036.1.13.43.2.7.2.51410 9_[id number] [facility] 2022-05-31 10:15:18 +IMYvtMjOFMFRwjsShm9VvfY/6Gd7hwdoMgDPt DGbrS0ez4ieM1064IsNCgh9l5x7346-76-39V9 0:15:18 Nutrition Screen by Veneer Clipper, RegisteredNutrition Screen re: LOS x 7 days.Tej [...] and nutrition related labsAvailable/Consult PRNSignature:Kelly Boo DTR [id number]: [phone] see Dietitian Note(s) in Plan of Care. 7445970Htun of Care1.2.840.865873.1.13.43.2.7.4.85442 0.49613506-70-28A79:15:12Plan of CareTXT1.2.840.621607.1.13.43.2.7.2.72 7879|3315176809PSUkvroqdoq for patient mayi12385-0NxzvKJIfegkybjxEljlcgiimRLC [facility] Dzvitc8145 [facility] MichiganIokmPrnjyewVtynxlxYKRY3955921535WQPP77 23-05-30T12:15:121.2.840.108709.1.72.3 .15|1.2.840.193004.1.13.43.2.7.2.39123 9_[id number] Nutrition [facility] 2022-05-31 06:47:50 fZ4Pt6h6wWYb8O4vZC0HPRaDzpQyagpSYmf0U/ qpGfarWlNvhqLZulCQv6SLzP7Y5393-00-30S3 6:47:50 Problem: Hospital Acquired Venous Thromboembolism (VTE)Goal: [...] to perform desired activities.Outcome: Met This Shift 9327696Hjci of Care1.2.840.681587.1.13.43.2.7.4.88973 0.61548913-35-69R51:47:56Plan of CareTXT1.2.840.499888.1.13.43.2.7.2.72 7879|1696849759HBCbmbffzmk for patient gvzd71767-5GcvxYI659602756Fyunu Anyamene RNProMedica Bay Park Hospital[address] [place], [place] [address]CigaCjbdvbzUzpkwziJWWX8121639501AMOW73 23-05-30T06:47:561.2.840.487067.1.72.3 .15|1.2.840.078776.1.13.43.2.7.2.50475 9_[id number] Charline Ren RN [facility] 2022-05-30 16:05:44 BpZwDLk9scsk1eF+Gr2sHpVaBn15Luqd8/0K3J fTs3NT4KGz/lq9/kt/hyrLCXba6904-50-47Z8 6:05:44 Initial visit, pt and one family member present, encouragement and spiritual support provided which resulted in hope being expressed. 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 Pentecostal Patient's significant other Patient's Significant Other Designation Immediate family Spiritual Resources Spiritual Resources Awareness of the Holy;Hope Radio Repair Teacher Assessment (Emotional Needs) Emotional Needs Grief/mourning Radio Repair Teacher Assessment (Spiritual Needs) Patient Expressing Grief/mourning;Helplessness Patient Exploring Brigitte and values Radio Repair Teacher Interventions Emotional Needs Non-anxious, non-judgmental presence provided;Emotions explored;Emotions validated;Hope encouraged;Reflective listening provided Spiritual Needs Grief/mourning explored, encouraged and/or enabled;Brigitte and or beliefs explored and/or validated;Pastoral counseling provided Industrial Safety Engineerreal [phone] Note1.2.840.202864.1.13.43.2.7.4.52771 0.92133388-21-85R05:06:41Flowsheet NoteTXT1.2.840.914503.1.13.43.2.7.2.72 7879|6508173220BQRxocqkbvr for patient kewq41701-5JjomZN24847862Uuenxbf Joy [facility]tWest[facility]25[address] [facility] MichiganVpjfRxbhuzvKowosalBZRQ6635018453DRLZ78 23-05-29T16:06:411.2.840.515764.1.72.3 .15|1.2.840.852993.1.13.43.2.7.2.64794 9_[id number] Shawna Chandler [facility] 2022-05-30 15:46:11 Asif/gOJNs9yNQU5xWBdunuueTev0n3EwCkZY5m Hx2jLwtBi0QdPyapnlA7XBazbF8750-17-87S3 5:46:11 Problem: Hospital Acquired Venous Thromboembolism (VTE)Goal: [...] to perform desired activities.Outcome: Met This Shift 2595344Ssjz of Care1.2.840.872295.1.13.43.2.7.4.78569 0.78207773-65-27F32:46:15Plan of CareTXT1.2.840.005132.1.13.43.2.7.2.72 7879|0565953255EFFlogdtxie for patient nbem01962-4TajyZY476372165OouncaoProMedica [facility]25[address] [facility] MichiganZsrqZukjyilMrrffahWFVT2027257333GPUG61 23-05-29T15:46:151.2.840.361777.1.72.3 .15|1.2.840.334360.1.13.43.2.7.2.10481 9_[id number] Edward [facility] 2022-05-30 05:30:02 8Dek/iFQn4fN531eN4tzh40Hr92fMCsl0kYIkj eCyQnFhxNipMPkQRFOyO+DiuG91371-17-46P1 5:30:02 Problem: Hospital Acquired Venous Thromboembolism (VTE)Goal: [...] to perform desired activities.Outcome: Met This Shift 9928353Oajl of Care1.2.840.939315.1.13.43.2.7.4.34381 0.04430928-45-54U19:30:08Plan of CareTXT1.2.840.853360.1.13.43.2.7.2.72 7879|9928416713LNRpnflbvll for patient yfzn58826-3OqoxLCIUSJcvebbWadsworth Hospital2525 [facility] MichiganOlpvDlanpyzGeoiucdCAZE2517669123FYDC55 23-05-29T05:30:081.2.840.462042.1.72.3 .15|1.2.840.618591.1.13.43.2.7.2.88490 9_[id number] [facility] 2022-05-29 18:34:41 HYmmlkAjXEwocB/uScpDtc1YRwf/pjMYBYX2VE c0gjwj4pJwPwDhuacTgDsID+DW8039-74-68K8 8:34:41 Problem: Hospital Acquired Venous Thromboembolism (VTE)Goal: [...] to perform desired activities.Outcome: Met This Shift 9564078Hgzm of Care1.2.840.452267.1.13.43.2.7.4.36117 0.74521430-34-44F17:34:46Plan of CareTXT1.2.840.189181.1.13.43.2.7.2.72 7879|1412280238EAFtxgoupzj for patient upwp93966-4UjzeRX94269595Lpguqzgl Ngozi Osita RNProMedica Bay Park Hospital[address] [place], [place] [address]LqnqHuuqjlaDpyctmcSORN1470385456SNMD94 23-05-28T18:34:461.2.840.556825.1.72.3 .15|1.2.840.995993.1.13.43.2.7.2.07709 9_[id number] Octavia Agosto RN [facility] 2022-05-29 05:08:04 WDoYapDt2/gMwerEmzyR95kXOvTlqEGcsf3/51 UjabV3+wuS1+WF4rQiI7kRCxwN9764-06-29V2 5:08:04 Problem: Hospital Acquired Venous Thromboembolism (VTE)Goal: [...] wounds, or positive cultures.Outcome: Met This Shift 2105390Amxm of Care1.2.840.997805.1.13.43.2.7.4.28100 0.55058496-89-26J52:08:11Plan of CareTXT1.2.840.243265.1.13.43.2.7.2.72 7879|5873486731UWHvbvleqem for patient ibti81638-5OzbmEZ62648624Kxfbx Baby RNProMedica Bay Park Hospital25[address] [facility] MichiganT[id number] 23-05-28T05:08:111.2.840.758044.1.72.3 .15|1.2.840.153073.1.13.43.2.7.2.39488 9_[id number] Tyron Enriquez RN [facility] 2022-05-28 18:31:40 qdF5lki6AxvFsja5bD8RPMkK/M5G5Merim1qjl c3/mLw59Fe/+SJ/cyQMf0cCwLp0518-94-27S9 8:31:40 Problem: Hospital Acquired Venous Thromboembolism (VTE)Goal: [...] RNOutcome: Met This Shift05/28/20221640 by Octavia Agosto RNOutoswald: Met This ShiftGoal: Identify Support Systems05/28/20221830 by Octavia Agosto RNOutcome: Met This Shift05/28/20221640 by Octavia Agosto RNOutcome: Met This ShiftGoal: Patient / Family / S.O. Are Supportive And Accepting Of The Established Care Goals05/28/20221830 by Octavia Agosto RNOutcome: Met This Shift05/28/20221640 by Octavia Agosto RNOutcome: Met This Shift Problem: Culturally Responsive CareGoal: Provide Culturally Competent Care05/28/20221830 by Octavia Agosto RNOutoswald: Met This Shift05/28/2022 164 by Octavia Agosto RNOutcome: Met This Shift [...] by Octavia Agosto RNOutcome: Met This Shift 7640597Dahp of Care1.2.840.639696.1.13.43.2.7.4.63456 0.44511286-00-30B24:31:43Plan of CareTXT1.2.840.571400.1.13.43.2.7.2.72 7879|3008586699DQTxtwqsrfv for patient porg23065-6AnqePHNAPBquyivWadsworth Hospital2525 [facility] MichiganZgtiAlizpioRwbxyssARUB5702417508GWDP57 23-05-27T18:31:431.2.840.601037.1.72.3 .15|1.2.840.503725.1.13.43.2.7.2.52531 9_[id number] [facility] 2022-05-28 16:41:40 wExyFIrd/SY7/6lijLcXk7e9OlzoU2+QaRjP7P RU6pn1vjIcp+Q1R4PhTX+iNQUe7864-10-15T3 6:41:40 Problem: Hospital Acquired Venous Thromboembolism (VTE)Goal: [...] to perform desired activities.Outcome: Met This Shift 7837557Emiu of Care1.2.840.341913.1.13.43.2.7.4.19525 0.57057188-78-93L99:41:44Plan of CareTXT1.2.840.001486.1.13.43.2.7.2.72 7879|3940285451TWUrovdlxpe for patient fmio34926-4FwrfZQQPNSrbpndWadsworth Hospital[address] [place], [place] [address]QxvrNqesedyMphkbjnLHBD5018745504BXII66 23-05-27T16:41:441.2.840.822851.1.72.3 .15|1.2.840.905190.1.13.43.2.7.2.86026 9_[id number] [facility] 2022-05-28 05:28:45 ue1o/iej56nO5hSppM0HjIa80O0SObybnHAQgu s6zdAvU2v0tCvAFv4MeKpr36KM0498-41-24V3 5:28:45 Problem: Hospital Acquired Venous Thromboembolism (VTE)Goal: [...] wounds, or positive cultures.Outcome: Met This Shift 9105762Vqps of Care1.2.840.641919.1.13.43.2.7.4.77748 0.47957415-59-89U05:28:51Plan of CareTXT1.2.840.328005.1.13.43.2.7.2.72 7879|7443667714ALUrdeooyqd for patient bejt35098-9RkkmAITZQYopxraWadsworth Hospital2525 [facility] MichiganOtqxHumewxvMydzkfgACOB2927977449IAPS37 23-05-27T05:28:511.2.840.383783.1.72.3 .15|1.2.840.022584.1.13.43.2.7.2.67838 9_[id number] [facility] 2022-05-27 14:32:23 5/2Kzl1jvhwIxCjtinT4nvZx7HlsKvO48BbL6Z czkhKMNc5YJqwM1yyFWyOWY0UP2927-13-86W2 4:32:23 Problem: Falls / InjuryGoal: Absence of [...] to perform desired activities.Outcome: Met This Shift 0245388Pvjs of Care1.2.840.182356.1.13.43.2.7.4.62892 0.96987744-81-22D14:32:30Plan of CareTXT1.2.840.040890.1.13.43.2.7.2.72 7879|2596121064VWCvgqzdgxv for patient npet39603-0EmlfKV752690550Fxnhyrx Hall RNProMedica Bay Park Hospital25[address] [facility] MichiganIlvuCkztxnbAhqsovrPUYD6127398592RONE90 23-05-26T14:32:301.2.840.739322.1.72.3 .15|1.2.840.828530.1.13.43.2.7.2.58898 9_[id number] Kavita Shelton RN [facility] 2022-05-27 05:52:57 8vxM+EZT4WfkY8Ah3esPQI1PEPtCGQzFhV0m+x ILCy7v0F+6k7FDLAegwohLR6vX8775-50-87K4 5:52:57 Problem: Hospital Acquired Venous Thromboembolism (VTE)Goal: [...] wounds, or positive cultures.Outcome: Met This Shift 8336177Zkmy of Care1.2.840.332860.1.13.43.2.7.4.54969 0.89853550-83-68C07:53:04Plan of CareTXT1.2.840.305777.1.13.43.2.7.2.72 7879|7495775794KMGxsrrgdwf for patient syjn42459-6MupbJZABIRsuyzvWadsworth Hospital2525 [facility] MichiganZvseXgwdnovMffxznhTNIJ2588279413CPGM88 23-05-2605:53:041.2.840.629648.1.72.3 .15|1.2.840.591696.1.13.43.2.7.2.07497 9_[id number] [facility] 2022-05-26 15:14:40 rMefeJlhAK3jDn1ektLtogOwvZNv8soP3LUWO4 H8HOnWIW9dlj+nSjKGIoQsW3nn5289-29-11F2 5:14:40 Problem: Hospital Acquired Venous Thromboembolism (VTE)Goal: [...] done this shift. Patient verbalized understanding. Appropriate land leveler used. Problem: Falls / InjuryGoal: Absence of [...] Subjective And Objective Responses.Outcome: Met This Shift 4969829Tspc of Care1.2.840.110822.1.13.43.2.7.4.01429 0.55516516-16-11J03:14:43Plan of CareTXT1.2.840.216689.1.13.43.2.7.2.72 7879|8388439342GKGnpalulht for patient asqj41184-4VeerWN673885815Ystom M Bhakta RNProMedica Bay Park Hospital[address] [place], [place] [address]TkwhHxbncgnHmezlmqAKZX3466602210MGGO79 23-05-25T15:14:431.2.840.675309.1.72.3 .15|1.2.840.118935.1.13.43.2.7.2.31835 9_[id number] No Montoya RN [facility] 2022-05-26 11:00:00 AfN93vaxNMrB0Of7xKLqtTfSCwaU1w4csIfMZE pl5TDBD7K6AalxiFkQdhA8kOum7015-99-29X9 1:00:00 05/26/22 1100 Intervention Education on freedom to choose and issued vendor list Yes Transportation Referrals Other Transportation medical necessity form N/A Current Support System Immediate family Coordination of Care Multidisciplinary team;Outside facilities Per consult to assist with drug treatment placement, SW connected with Pt to discuss options.SW had contacted both [facility] [phone] and [facility] [phone] per Pt's request and was informed there were no beds available. [facility] only has available beds in locations outside [place] like [facility] and [place]. SW suggested other treatment centers including [facility] [employer]" [phone] who stated they have available beds and Pt is free to come to their facility in [place], ask for Layo with Intake Department. SW also provided [facility] as an option. Pt declined both options, stated he will talk with his family and may have to choose one of the [facility] locations outside of [place].Pt will inform SW when decision is reached.Artem Cohn LMSWSocianaya Work Control Room Helper [facility] ClinicOffice: [phone]: [phone] Note1.2.840.396105.1.13.43.2.7.4.31122 0.27702434-55-85A15:32:49Flowsheet NoteTXT1.2.840.713022.1.13.43.2.7.2.72 7879|6260767386TJCkkivauca for patient ujzm86072-9FevxDE627992767Cgzjzs [facility]25[address] [facility] Michig[id number] 23-05-25T11:32:491.2.840.895663.1.72.3 .15|1.2.840.351307.1.13.43.2.7.2.65635 9_[id number] [facility] 2022-05-25 14:25:36 ZnQfA11eflV8c3EuvJXC3cUyRieDItv7sEg3et zq3YpYOm5oVfw0BswXjZ1tQTxo8210-20-23G9 4:25:36 Problem: Hospital Acquired Venous Thromboembolism (VTE)Goal: [...] Subjective And Objective Responses.Outcome: Met This Shift [id number] of Care1.2.840.285996.1.13.43.2.7.4.68539 0.15464379-56-20S28:25:49Plan of CareTXT1.2.840.681907.1.13.43.2.7.2.72 7879|[id number] for patient vrfs49702-9XejkMX316332242Vhow [facility] [place], [place] [address]MarhLvzfoxtKzaxxqrIFBS7675154388UFBW15 23-05-24T14:25:491.2.840.443328.1.72.3 .15|1.2.840.817902.1.13.43.2.7.2.52953 9_[id number] [facility] 2022-05-25 10:28:37 ULiCrPsH+erbi3tP/9Uyrbd2ggGVkzVzmIvBVX td2iQ1UDa+6afcsgOhRlUKamCT1248-40-64X7 0:28:37 THIS IS A STUDENT NOTEInfectious Diseases [...] AFB - Plates have been sent to [facility] for identification and sensitivitiesRecommendations: - After careful consideration of the literature we recommend the following to cover for M chelonae, M fortuitum, and M abscessus: - Amikacin (per pharmacist dosing) - Tigecycline (100mg load followed by 50 BID, can step down to 50 daily if poorly tolerated) - Azithromycin (500 mg daily)- We will jesu antibiotics once ID is received from [facility]- Follow all cultures to completionThank you for this interesting consult. We will continue to followI discussed the case with infectious diseases attending, Dr. Obando.Venu RamosMedical Student, [address] History Obtained From: patient, electronic medical [...] homeless. He has not travelled outside of [place]'ne[place] recently and does not have any sick [...] intact.Data: All labs, images, and data reviewed. [id number] Note1.2.840.698865.1.13.43.2.7.4.14498 0.51710188-39-17Z82:34:01Student NoteTXT1.2.840.347726.1.13.43.2.7.2.72 7879|1573121720RELbwndpeqk for patient efjl90529-6EmokOFLqnukqmb MedicineWhite Mountain Regional Medical Centernal MedicinePro[facility] [facility] MichiganBktqJwdujvyBdlrbkdQVLN4156449939FGNG55 23-05-24:34:011.2.840.726650.1.72.3 .15|1.2.840.708330.1.13.43.2.7.2.77235 9_[id number] Internal Medicine [facility] 2022-05-25 03:18:34 CXYMdNm/vykRtuyLQU7zS3OnlKLLDYmRSXy0cu 3YJjGgD82VmakCoXABMffCsAvA0945-22-31B2 3:18:34 Problem: Hospital Acquired Venous Thromboembolism (VTE)Goal: [...] Subjective And Objective Responses.Outcome: Met This Shift [id number] of Care1.2.840.265655.1.13.43.2.7.4.05055 0.49620950-84-38C98:18:38Plan of CareTXT1.2.840.135370.1.13.43.2.7.2.72 7879|3481361929BQGjeoniilq for patient koxl32236-6UfyrXQLJHMcphng Health Pzqxnt3090 [facility] MichiganZmylXfelyetTvnbcdiIPVV8924392909CRGW20 23-05-24T03:18:381.2.840.142270.1.72.3 .15|1.2.840.201431.1.13.43.2.7.2.63636 9_[id number] [facility] 2022-05-24 18:27:10 w7v8e/XHbYO8Jx1tbiuWL7ehKvBhTdNJLTAWFK A0UH0rIxvJi0dnyFrArn04lMBa8248-42-55N1 8:27:10 Problem: Hospital Acquired Venous Thromboembolism (VTE)Goal: [...] Subjective And Objective Responses.Outcome: Met This Shift [id number] of Care1.2.840.291468.1.13.43.2.7.4.73224 0.66076788-75-44S61:27:20Plan of CareTXT1.2.840.936296.1.13.43.2.7.2.72 7879|4861012201DCUlfpfjtpn for patient tbwr84899-1XayfAFAQOYubtql Health Hcihng3349 [facility] MichiganUpjnYlpccguDfnrlnnDGMD7946370563GNLQ53 23-05-238:27:201.2.840.552184.1.72.3 .15|1.2.840.403518.1.13.43.2.7.2.16240 9_[id number] [facility] 2022-05-24 11:04:15 pWRUhNNR5XwvdAeAmyyc8CPthbovep7A+zlGDP ssWOuF7V36xcNb8ykOMNjv2p/f4613-99-66B4 1:04:15 Case management note:Chart reviewed for medical necessity and hospitalization 05/24/22 1103 Intervention Disease Management Meets criteria for Inpatient Medical Necessity Screening Concurrent review([id number]) Patient meet inpatient criteriaPlease place order [facility] Samanta diggs MSN, ACM-RNClinical Nurse Case [facility] | [address] | [place], [place] [address]Z: [phone] |F: [phone]| [id number] Note1.2.840.955615.1.13.43.2.7.4.96927 0.04098016-12-29S20:04:38Flowsheet NoteTXT1.2.840.847291.1.13.43.2.7.2.72 7879|[id number] for patient rink93049-7RpfjHX39528649Obja S Jacob RNProMedica Bay Park Hospital[address] [place], [place] [id number] 23-05-23T11:04:381.2.840.769683.1.72.3 .15|1.2.840.711697.1.13.43.2.7.2.89059 9_[id number] Samanta Hassan RN [facility] 2022-05-24 08:50:00 wtMaqcfKMBhRqznj0fW1zZv/+nj3+DCF+DQfzX 8zdAHu+84ECfdMV3KVv5m/QsCS9023-69-01I3 8:50:00 05/24/22 0850 Charting Type Charting Type Initial Patient Status Current Status Observation New Status Recommendation Observation Patient Information Source of Information Patient;Other (Comment) County [place]idence [place] Immigration Status: [place] Citizen Behavior Alert;Oriented [...] Family Information Patient Marital Status Single Primary Superintendent Transportation Lydia Guadalupe (father) [phone] Income Information Income Source Unemployed Financial Resources Funding Source/Insurance Status Self-Pay Transportation Transportation Needs Private/family transportation Legal Information Legal Concerns No unmet needs Name, surrogate decision maker Lydia Guadalupe (father) [phone] Decision maker contact # Lydia Guadalupe (father) [phone] Mental Health Mental Health Concerns No past / current concerns Acuity Level Medical Acuity Category 3 Community Living Coach Acuity Mild Strengths and Limitations Patient Strengths [...] residing with father at the address on [address] [place] [address], however, will be discharging to sister's upon discharge from the hospital. Pt did not remember the address of sister's house.Family will provide discharge transportation.Healthcare Agent: Lydia Guadalupe (father) [phone].Hayden Gurrola Work Control Room Helper [facility] ClinicOffice: [id number]: [phone] Note1.2.840.482946.1.13.43.2.7.4.57733 0.50660991-45-70H00:59:01Flowsheet NoteTXT1.2.840.278995.1.13.43.2.7.2.72 7879|[id number] for patient bmwn68917-6TkvaGRCDTJxfszeWadsworth Hospital2525 [facility] MichiganH[id number] 23-05-23T10:59:011.2.840.592963.1.72.3 .15|1.2.840.588171.1.13.43.2.7.2.76189 9_[id number] [facility] 2022-05-24 06:45:53 W+vsL+Vjmy4Htqvu9QMJqEq9iAlnYdCIfWhk8e TLNFiVc3UY9j3pqSFqnT+TseI68753-86-72K4 6:45:53 Problem: Falls / InjuryGoal: Absence of [...] wounds, or positive cultures.Outcome: Met This Shift 2533070Qyrd of Care1.2.840.168984.1.13.43.2.7.4.26384 0.06107774-38-41Q98:46:15Plan of CareTXT1.2.840.748680.1.13.43.2.7.2.72 7879|[id number] for patient yvbt23749-1TdmdYBARFHqkgvz Health Mmwori0509 [facility] MichiganWtlwOrdpzhcYnnuvvjXVKP5067376579EART49 23-05-2306:46:151.2.840.095606.1.72.3 .15|1.2.840.771080.1.13.43.2.7.2.75206 9_[id number] [facility] 2022-05-24 04:17:46 hNIqj/dX/QckHXgSMMEOVowHeV9sDOBq3IBN1y RwQ9YBTCWKES1xMXJ4F67epUXS1209-70-89R5 4:17:46 Patient transferred to . Patient refused wheelchair for transfer. Report given to Hanh MARTINI. Patient AAOx4. Ambulates independently. Respirations clear and unlabored. Skin appropriate to ethnicity. Skin intact with abscesses to the right and left forearms. 44550-1Mneomjihs department MxkyDK1470-66-65M23:19:07Emeformerly [facility] department NoteTXT1.2.840.724742.1.13.43.2.7.2.72 7879|[id number] for patient vxwe82038-6Zaprpyvgd department VzcoQB811009322GgrhGlens Falls Hospital2525 [facility] MichiganJeieDrjvilaKrgfjthTTAT4101052983PTVL60 23-05-23T04:19:071.2.840.607880.1.72.3 .15|1.2.840.696390.1.13.43.2.7.2.13332 9_[id number] Lupillo Jo [facility] 2022-05-24 02:00:00 W/TtyWMCGmuic3nGWLYQ8KFQhwdLmp2gpfobU4 6SyJGqzpi9lncCTlrwgQ6Hl+GW8439-15-68P2 2:00:00 Pt resting in room quietly, respirations even nonlabored, no acute distress. [address]93-8Tuyktfesm[address] [place] [address] OpcnAL6222-73-06C96:07:26[facility] department NoteTXT1.2.840.571022.1.13.43.2.7.2.72 7879|[id number] for patient lofy35182-7Iahkrhjew department [id number] [id number] 23-05-2305:07:261.2.840.613238.1.72.3 .15|1.2.840.261827.1.13.43.2.7.2.18032 9_[id number] [facility] 2022-05-23 23:58:21 whZMgHgn2YSGUt//VXpBwUbYMPRnqcuP/ohzIR EswfgX3n70Wr+rZSxOpMJ/ocBv0919-16-42D7 3:58:21 Pt brought [place] [address]-1Jcwofkx[address] DntqEX0488-36-72I53:58:35[facility] department NoteTXT1.2.840.916011.1.13.43.2.7.2.72 7879|[id number] for patient pvir83099-1Flfbtihyc department [address]TXTX[address]05477054USUS20 23-05-22T23:58:351.2.840.554489.1.72.3 .15|1.2.840.501061.1.13.43.2.7.2.74956 9_[id number] [facility] 2022-05-23 22:47:00 rCAdmY58CaZCOgfwZir+pVZR5s6ZiM0xivTDpJ Q6WA0+UD/6an9XVaZ48YHC3e401111-86-68N7 2:47:00 Patient Tej Guadalupe, 37 y.o. male, [...] extremities spontaneously. Patient pending medical bed admission. 82344-9Pzejzswwq department ZbojCV1512-41-69Z89:20:22[facility] department NoteTXT1.2.840.271380.1.13.43.2.7.2.72 7879|[id number] for patient ansh40087-3Wpgejipas department NoteSt. Peter's [facility]2525 [facility] MichiganFisrXktlikxLpvpoweGCZK7780841992KGKQ79 23-05-23T01:20:221.2.840.229566.1.72.3 .15|1.2.840.303985.1.13.43.2.7.2.85125 9_[id number] [facility] 2022-05-23 22:11:16 EP0I9u5VOuhsWCy2gIUNw3av0uoO4bMAHIZipk R8qqZQL8AuZTQ6fjFSUEVIISRW2578-56-50D1 2:11:16 Pt ambulatory to B4 for admission with triage nurse. Pt A&OX4, respirations even nonlabored, no acute distrress/no airway distress. 83781-8Wgkfmxcha department CddmDW6153-38-51H22:11:43[facility] department NoteTXT1.2.840.327559.1.13.43.2.7.2.72 7879|[id number] for patient nnmc67135-9Dzmvxvolk department NoteSt. Peter's Hospital2525 [facility] MichiganZffiGgouxscOtnuvcnXBCX5056813000FNEW59 23-05-22T22:11:431.2.840.229457.1.72.3 .15|1.2.840.207837.1.13.43.2.7.2.79254 9_[id number] [facility] 2022-05-23 13:29:36 WGMtL/OYiXNnt3+UV15ueDtLmuW6HyXdQ5LGU1 RpF9lOxr3Rbfn42Q+WshKEZxH12072-29-94Z0 3:29:36 Images from the original note were [...] about a month" per pt. Seen at [facility] on 05/19/2022 for same issue. I&D done [...] History provided by: Medical records and patientLanguage land leveler used: No AbscessLocation: Shoulder/armShoulder/arm abscess location: R [...] ProceduresED Course ED Course as of 05/23/22 233MonMay 23, 2022 1432 Sed Rate: 11 [MR] [...] Continue to monitor in the emergency departmentNAVEEN Lane[facility] PA FellowProvider #[id number]/:04 PM Clinical Impression 1. Cutaneous abscess of [...] drainage, surgical washout) and further evaluation and managementChoco Lane 2021 3:26 PM ssociated attestation - Jose [...] F Reyes MD August 01, 2022 11:44 FJ64267-5Qqgvhbemp Emergency department McyzVV929713Ywgqcbm, Stephen A1.2.840.898744.1.13.43.2.7.2.346462Gb bwnucRipklfjOHR1304-86-24R21:46:02Phys [facility] Emergency department NoteTXT1.2.840.894796.1.13.43.2.7.2.72 7879|[id number] for patient milw00451-5Uxlpptcox department NoteLNProMedica Bay [facility] Hospital2525 [facility] MichiganQgemMnqgwebLmtgieaXZZN7832852439HYKJ06 23-07-31T11:46:021.2.840.325266.1.72.3 .15|1.2.840.442124.1.13.43.2.7.2.26699 9_[id number] [facility] 2022-05-23 10:59:29 0ueJL/JpOug+eugh7iYNusI/hh10MweJ6fEyVw O7NdYiwreCj5TZT60/bzDbftto5705-15-41Z2 0:59:29 ABC intact. Resp even and unlabored. Skin warm and dry with color appropriate to ethnicity. Pt in stable condition. NAD. Verified name and verbally with pt and armband. Informed pt to notify this RN or staff if wanting to leave, and/or experiencing any changes in condition. 94098-7Ozxnldhyd department Triage ahiqZU0503-14-19O41:01:33Emeformerly [facility] department Triage noteTXT1.2.840.039714.1.13.43.2.7.2.72 7879|[id number] for patient tkzk74751-8Axfuspegc department BtvvAR109857178Nxtrpgrp Denice Ahmadi RNProMedica Bay Park Hospital[address] [place], [place] [address]VmbuOdoumljFubknwuQHKT4781863078OBEG86 23-05-22T11:01:331.2.840.530282.1.72.3 .15|1.2.840.389129.1.13.43.2.7.2.79087 9_[id number] Mary Jane Cheung RN [facility] 2022-05-23 10:50:34 9QbdTluRUizp9t6aBKhoOBO7yhqmMDBlVE60lH rQY8k0Zzu67f5Gusn2LUl/K/yB4732-93-87K5 0:50:34 MEDICAL SCREENING EXAMINATION PROVIDER NOTEI evaluated [...] at this time.Billy Aguayo 2021 10:52 AM 16131-0Jecdmyrge department VvkoEA1565-24-75I71:53:43Emeradvanced [facility] department NoteTXT1.2.840.124700.1.13.43.2.7.2.72 7879|[id number] for patient oxwe83744-3Zwhwdyipk department NoteLNNurse PractitionerNurse Practitioner[address]TXTX[address]USUS20 23-05-22T10:53:431.2.840.519720.1.72.3 .15|1.2.840.897943.1.13.43.2.7.2.63890 9_[id number] Nurse Practitioner [facility] 2022-05-22 20:38:38 3xF9CYfflA/tzHsogxJtggKz8cOH37N627j45b SDzvM+7BUS+At57ZdvdMpuNkIG5559-69-38B0 0:38:38 Tej Guadalupe called within waiting room and did not answer x3. Patient name paged overhead within the Emergency Department without response. Waiting rooms, ED care areas and restrooms visualized and patient not found. 77712-3Uqvtlhgqx department LwzdVU2230-83-28D86:38:46Emeformerly [facility] department NoteTXT1.2.840.369094.1.13.43.2.7.2.72 7879|[id number] for patient lbyj74416-5Wmxpltlwv department BtkkVY372794385Znatqow Martin RNProMedica Bay Park Hospital2525 Natalie JbykErkaxtbZtzdgwnFFZV1100885911YAHI07 23-05-21T20:38:461.2.840.122557.1.72.3 .15|1.2.840.971792.1.13.43.2.7.2.31765 9_[id number] Michelle Cuenca [facility] 2022-05-22 13:26:33 AJ8Mksxak02YlsT2sLiRhczHHwgoGrnbZBWCDg kTAjo91PB3aBrJXkgYdR56Geww7680-01-32W4 3:26:33 MEDICAL SCREENING EXAMINATION PROVIDER NOTEI evaluated [...] at this time.Billy Novak 2021 1:29 PM 87731-7Voqigyaur department AlseJO7230-35-91A09:33:27Emeradvanced [facility] hospital of [facility] department NoteTXT1.2.840.004869.1.13.43.2.7.2.72 7879|[id number] for patient alph16536-1Oimqxsiid department NoteLNNurse PractitionerNurse PractitionerProMedica Bay Park Hospital2525 [facility] MichiganSzafEnfgyiqIkwysndZHGP5138324838XPZK58 23-05-213:33:271.2.840.721447.1.72.3 .15|1.2.840.862975.1.13.43.2.7.2.79901 9_[id number] Nurse Practitioner [facility] 2022-05-19 19:48:02 iSzb3I1YsHyJ5xY1YJ6RE0FEEFK+3atkRXnoYy Sya2biDssQknySphpJLQP/vqDA9795-05-64H4 9:48:02 Pt AAOX4. Discharge instructions and prescription given, pt verbalizes understanding. Escorted to checkout with belongings in hand. Ambulatory with steady gait. VSS. Respirations even and unlabored. NAD upon departure. 82407-6Vnylkdwhk department TzztNJ9943-88-18Z11:48:18[facility] NoteTXT1.2.840.316020.1.13.43.2.7.2.72 7879|[id number] for patient watc33906-5Hwplquxkg department AlgsYJ390603458Pmiymn Graham RNProMedica Bay Park Hospital2525 [facility] MichiganBqchPiudfcnAtnkppdBLYK3123547861GUHE69 23-05-189:48:181.2.840.251860.1.72.3 .15|1.2.840.160498.1.13.43.2.7.2.30748 9_[id number] Jah Bueno RN [facility] 2022-05-19 19:35:00 ydUNzwRW42D1/Q/Bg/FL7ZyeOySGYPQwVTGTTb YT3MHEWqJv8wbqfTLCH2m99pi03560-45-16O5 9:35:00 37 yo pt comes to ED [...] at this time Pt Is pending d/c 85981-5Fwufsaeaa department EcvyBC7197-50-83W04:48:50Emeradvanced [facility] department NoteTXT1.2.840.735960.1.13.43.2.7.2.72 7879|[id number] for patient tklh34212-4Kzqhrgsbx department NoteSt. Peter's Hospital2525 [facility] MichiganHlbuUjdrmliSedlgvxSNQV3158544649OFOZ88 23-05-18T19:48:501.2.840.501061.1.72.3 .15|1.2.840.680372.1.13.43.2.7.2.85815 9_[id number] [facility] 2022-05-19 15:56:27 KZx5w+VWjwFZJRMVbrRZRhrvEt6qO3asSGafcf hmDZ90G+GjpJzmoedDWBV6Sh7v3791-72-20B1 5:56:27Associated Order(s): I&D of AbscessPost-Procedure Diagnose(s): Right [...] implanted ED Course ED Course as of 05/19/221901 Lea May 19, 2022 1856 TEACHING PHYSICIAN CEE personally examined Tej Guadalupe, performed the warner portions of the history and physical examination and was directly involved in his care.I reviewed the past medical records, laboratory results, and resident's note and agree with the findings as documented in the resident's note..I discussed the case with the resident and agree with the diagnosis of:AbscessCellulitisand plan: Patient with multiple small pustules with surrounding cellulitis. .Daniel Petit [facility] 2021 6:56 PM [RM] ED Course User [...] Impression 1. Right wrist pain Chris Marrufo, IcityuvsIVOsywoovb80/18/22 1641 Chris Marrufo, CuvtwdijHDAbtesped93/18/22 1738 Chris Marrufo, SnlubpgwLZAyulqsxh51/18/22 1739 Chris Marrufo, KbuyxuyzKYJbqqoppx71/18/22 1847 Chris Marrufo, KzvpnwsxJFCqufekdx67/18/221907TEACHING PHYSICIAN CEE personally examined Tej Guadalupe, performed the warner [...] condition.Sriram Estrada 2021 10:23 PM Daniel Petit MD05/19/226 82076-8Umhlmvvlt Emergency department PjrxJZ208625DdDhrugf, Robert1.2.840.289570.1.13.43.2.7.2.836 004RwOrziisKbmsimNX7623-81-05Q22:30:23 Physician Emergency department NoteTXT1.2.840.376378.1.13.43.2.7.2.72 7879|[id number] for patient kkwi23960-0Jwnmhqbis department NoteLNInternal MedicineInternal MedicineProMedica Bay Park Hospital2525 [facility] Michigan[id number] 23-05-18T22:26:301.2.840.741887.1.72.3 .15|1.2.840.487984.1.13.43.2.7.2.97070 9_[id number] Internal Medicine [facility] 2022-05-19 15:51:03 TWqaoD/SVkc1eIT3V9sM4qiYsPf9h6O6lOIlDi Q4tKds3R87LPtqyMRNwbg6jmKf3380-12-34R8 5:51:03 Assessment X2 pt's ID, ABC intact, [...] hot to touch. No peripheral edema. MAEX4 IGUM4Qzjz light and belongings within reachPending evaluation and orders, will continue to monitor VINI Gonzalez 44616-9Fviaplfad department TwfiLF9048-49-16P70:54:23[facility] department NoteTXT1.2.840.180120.1.13.43.2.7.2.72 7879|[id number] for patient rymu43635-7Uctxhanar[address] [place] [address] WxsbCD928450589TnjqxwMargaret Mary Community Hospital[address] [place], [place] [address]KtkgBipnmuuTzcwngbXALZ3705273953KBCT93 23-05-18T15:54:231.2.840.136492.1.72.3 .15|1.2.840.381498.1.13.43.2.7.2.95423 9_[id number] [facility]In[facility] 12:42:01 OGgTU+xtcskp+CTILUKxdsikGDYUZ79OYP2JN3 /Oi/Um5PBG9De95huJopVm4UJy8499-50-88R2 2:42:01 Pt noted to have another hospital arm band on stated "they told me to come here to get them lanced" 80272-7Xllrsblqo department YgaqRT5086-94-11L78:42:31Emeformerly [facility] department NoteTXT1.2.840.209213.1.13.43.2.7.2.72 7879|[id number] for patient olhs84953-9Pwroqpsai department BkgkOS461593824Dvrdamdh Clardy RNProMedica Bay Park Hospital2525 [facility] MichiganHevfXxfvkrzJtblyirHOEE3317296743NWCF35 23-05-18T12:42:311.2.840.009491.1.72.3 .15|1.2.840.907832.1.13.43.2.7.2.74662 9_[id number] Emma Weathers RN [facility] 2022-05-19 12:32:25 iE7DtEiI34P1HvJlM3Nj86pq+fT9mNjmYskZ/L H7nTuiweoML1On7GyDulIb7V3Z3607-43-80D9 2:32:25 Name and verified and confirmed correct with patient. 28369-3Dfsbjpoaj department NndwNH3856-12-89Q11:32:31[facility] department NoteTXT1.2.840.491682.1.13.43.2.7.2.72 7879|[id number] for patient lree60225-4Akshphzdx department NoteLNProMedica Bay Park Hospital2525 [facility] MichiganXwhjUqbhlbjCstwuxbJVPP4952257419WOKX69 23-05-18T12:32:311.2.840.747535.1.72.3 .15|1.2.840.005275.1.13.43.2.7.2.89467 9_[id number] [facility] 2022-05-19 12:30:12 nYo6lQKIPnTFmJ/S1VPfPMkGaR6eCCBRS+7axL d841Vsneqv+Nr7lO9xFxgYoMjn0957-07-70O5 2:30:12 MEDICAL SCREENING EXAMINATION PROVIDER CEE evaluated and initiated the medical screening examination of patient Tej uGadalupe.Warner Symptoms and FindingsThere were no vitals filed [...] at this time.Choco Matthews 2021 12:30 PM 68606-3Ilorselvj department IalaFY0968-54-74E11:32:29Emeformerly [facility] department NoteTXT1.2.840.139605.1.13.43.2.7.2.72 7879|[id number] for patient npja43545-9Eadaxdlop department [facility]2525 [facility] MichiganQyavJlikwjeFlitudaCYHJ3969978371NLKQ42 23-05-18T12:32:291.2.840.358418.1.72.3 .15|1.2.840.409097.1.13.43.2.7.2.17626 9_[id number] [facility] 2020-12-13 19:54:00 OClwkzefydc99637842PRU+y1adTiQoMrEXhlN c/lsmdtgdN568ujTvGD62IVtFmtmNbmtLbDPm/ BBMMBQa3616-53-64I41:54:[address] [facility] ([facility])EMERGENCY PROVIDER REPORTREPORT#:[id number] REPORT STATUS: SignedDATE:12/13/20 TIME: 1952 PATIENT: TEJ GUADALUPE UNIT #: [id number]#: [id number] ROOM/BED:AGE: 35 SEX: M PCP PHYS: No [...] HPI NotesPatient states he is withdrawing from [employer] and [employer] and thinks he may have had a [...] and squeezes hands appropriately upon command. Normal ityw-sr-thup eye movements on extraocular muscle testing. No [...] pH (5.0 - 8.0) 6.5 Ur Specific [place] (1.001 - 1.035) 1.014 Urine Protein (NEGATIVE [...] at 2238 (to Dr. Mari) at 2238RPT #:[id number] OF REPORTEDEmergency department olxyjr2773-64-52U48:54:00V.GMUR2524342 4-0589AVAvailable for patient aiciEQTDCBGSFYXTSX3877-87-95V44:39:03 [facility] 2020-12-13 19:54:00 AHqwritasur46835560dT0iCljAPBKeDmOS/Q6 QQdSKHB8VqwWR5YByfRzGjs0g3Npeck+Wxasc8 E6rD5R83647-68-72K07:54:[address] [facility] ([facility])EMERGENCY PROVIDER REPORTREPORT#:[id number] REPORT STATUS: SignedDATE:12/13/20 TIME: 1952 PATIENT: TEJ GUADALUPE UNIT #: [id number]#: [id number] ROOM/BED:AGE: 35 SEX: M PCP PHYS: No Primary or Family PhysicianSERVICE AUTHOR: Shaggy Morrow MD * ALL edits or amendments must be made on the electronic/computer document * Shaggy Morrow 12/13/201953:HPI-Seizure GeneralInitial Greet Date/Time 12/13/201949 PresentationChief Complaint Seizure, generalizedSeizure Anatomic Location GeneralizedHx Obtained From Patient, EMSOnset Occurred TodaySymptom Duration Lasting minutesProgression since Onset ResolvedLocation genQuality Unable to verbalizeRadiation Does not radiateSeverity: Onset ModerateSeverity: Current No pain currentlyAssociated Other Pt denies other symptomsExacerbated by NothingRelieved by Nothing Free Text HPI NotesFree Text HPI NotesPatient states he is withdrawing from [place] [facility] and thinks he may have had a [...] and squeezes hands appropriately upon command. Normal gfre-su-cdhd eye movements on extraocular muscle testing. No [...] InterpretationResultsLaboratory Tests 12/13/202004:[Embedded Image Not Available]Laboratory Tests: 12/134 2004 2004 Chemistry Sodium (136 [...] pH (5.0 - 8.0) 6.5 Ur Specific [place] (1.001 - 1.035) 1.014 Urine Protein (NEGATIVE [...] 1949 Pulse 102 12/13 1949 Resp 12/13 All vital signs available at the time of this entry have been reviewed. Clinical ImpressionClinical ImpressionPrimary Impression: DepressionSecondary Impressions: POSSIBLE SEIZURE Pt/Provider HandoffCare Transferred at 2237 (to Dr. Mari) Katarina Mari 12/14/20 0518:Re-Evaluation MDM Re-Evaluation/Progress #1Text/Dict NotePatient to be signed over to Dr. Rhodes at 7 AM. I will continue to monitor thepatient until that time.Time of Re-Eval 0518 at 2238 at 0519RPT #:[id number] OF REPORTEDEmergency department vvqnfw0017-57-32X05:54:00V.GBOK8657324 4-0589AVAvailable for patient peyoCQVQCEVWSVPMRV4502-46-82H10:19:25 [facility] 2020-12-13 19:54:00 UJnwwsltyet38073187zMihDK7UG8JL+LHvbz6 gGiySn0hd6QD+utFZgSHmNlDskTwVJNF0O5aza AQI5f3Q1754-19-16E96:54:[address] [facility] ([facility] SERVICESEMERGENCY PROVIDER REPORTREPORT#:[id number] REPORT STATUS: SignedDATE:12/13/20 TIME: 1952 PATIENT: TEJ GUADALUPE UNIT #: [id number]#: [id number] ROOM/BED:AGE: 35 SEX: M PCP PHYS: No [...] HPI NotesPatient states he is withdrawing from [place] and [place] and thinks he may have [...] and squeezes hands appropriately upon command. Normal hzom-ad-vzxt eye movements on extraocular muscle testing. No [...] InterpretationResultsLaboratory Tests 12/13/202004:[Embedded Image Not Available]Laboratory Tests: 12/134 2004 2004 Chemistry Sodium (136 [...] pH (5.0 - 8.0) 6.5 Ur Specific [place] (1.001 - 1.035) 1.014 Urine Protein (NEGATIVE [...] IMPRESSION: Negative CT head. Location: RRImpression By: Amanda - Tano Gauthier MD Point of Care TestingPulse Oximetry Pulse Ox % 98 On: Room air Interpretation Interpreted by me, Pulse oximetry normal Time 1956 Re-Evaluation [facility] ED CourseMedication(s) OrderedMedication(s) Ordered:Antihistamine Drugs Sig/Darius [...] Ox 100 12/14 0730 B/P 121/86 12/14 0730 B/P Mean 97 12/14 0730 O2 Delivery Room air 12/14 0730 Temp 36.4 12/14 0730 Pulse 81 12/14 0730 Resp 17 12/14 0730 All vital signs available at the time of this entry have been reviewed. Clinical ImpressionClinical ImpressionPrimary Impression: DepressionSecondary Impressions: POSSIBLE SEIZURE Pt/Provider HandoffCare Transferred at 2237 (to Dr. Mari) Katarina Mari 12/14/20 0518:Re-Evaluation MDM Re-Evaluation/Progress #1Text/Dict NotePatient to be signed over to Dr. Rhodes at 7 AM. I will continue to monitor thepatient until that time.Time of Re-Eval 517 Darinel Rhodes 12/14/20 0802:Re-Evaluation MDM Free Text MDM NotesFree Text MDM NotesPatient left AMA without my involvement at 2238 at 0519 at 0803RPT #:[id number] OF REPORTEDEmergency department irlpcl5689-81-04N78:54:00V.EXPT7276793 4-0589AVAvailable for patient xpzhTJXVTRPDABHALI5208-40-92S96:03:59 [facility] 2020-12-06 16:41:00 EZxxuzryshp56593534mx/6mFQCguz9RCg2kTn uO6TiSfSpfKZNvRRfwI/nzEOtt9b6XBXrz6XjD k9C8npg9843-25-28S67:41:[address] [facility] ([facility])EMERGENCY PROVIDER REPORTREPORT#:[id number] REPORT STATUS: SignedDATE:12/06/20 TIME: 164 PATIENT: TEJ GUADALUPE UNIT #: [id number]#: [id number] ROOM/BED:AGE: 35 SEX: M PCP PHYS: No [...] Medical History - AdultStated Complaint SENT FROM [facility] DETOXAllergiesCoded Allergies:No Known Allergies (12/06/20) Smoking status: Smoking status for patients 13 years old or older: Current every day smoker Physical Exam Vital SignsVital SignsFirst Documented: Result Date Time Pulse Ox 97 12/06 1402 B/P 129/87 12/06 1402 B/P Mean 101 12/06 1402 O2 Delivery Room air 12/06 1402 Temp 36.6 03/07 1402 Pulse 93 03/07 1402 Resp 16 03/07 1402 Last Documented: Result Date Time Pulse Ox 97 03/ 1402 B/P 129/87 03/07 1402 B/P Mean [...] Documented: Result Date Time Pulse Ox 97 03/ 1402 B/P 129/87 03/07 1402 B/P Mean 101 03/07 1402 O2 Delivery Room air 03/ 1402 Temp 36.6 03/07 1402 Pulse 93 03/07 1402 Resp 16 03/07 1402 Last Documented: Result Date Time Pulse Ox 97 03/ 1402 B/P 129/87 03/07 1402 B/P Mean 101 03/07 1402 O2 Delivery Room air 03/07 1402 Temp 36.6 03/07 1402 Pulse 93 03/07 1402 Resp 16 03/07 1402 All vital signs available at the time of this entry have been reviewed. Clinical ImpressionClinical ImpressionPrimary Impression: Benzodiazepine abuse Disposition DecisionOther Against Medical Advice Yes at 1528RPT #:[id number] OF REPORTEDEmergency department [id number]:41:00V.[id number] for patient [id number]:28:42 [facility]
--- NOTE | 2024-01-20 11:39 | ER ---
Nurse's Notes [facility] [place] Name: Anthony Au Age: 38 yrs Sex: Male : 1985 Arrival Date: 01/20/2024 Time: 11:18 Bed 18 Private MD: Diagnosis: Low back pain Presentation: 01/19 11:35 Chief complaint: Patient states: left lower back pain. Coronavirus screen: At this iw time, the client does not indicate any symptoms associated with coronavirus-19. Ebola Screen: Patient negative for fever greater than or equal to 101.5 degrees Fahrenheit, and additional compatible Ebola Virus Disease symptoms Patient denies exposure to infectious person. Patient denies travel to an Ebola-affected area in the 21 days before illness onset. No symptoms or risks identified at this time. Initial Sepsis Screen: Does the patient meet any 2 criteria? No. Patient's initial sepsis screen is negative. Does the patient have a suspected source of infection? No. Patient's initial sepsis screen is negative. Risk Assessment: Do you want to hurt yourself or someone else? Patient reports no desire to harm self or others. 11:35 Method Of Arrival: Ambulatory iw 11:35 Acuity: MARKY 4 iw 11:35 Onset of symptoms was December 2023. iw Triage Assessment: 11:40 General: Appears in no apparent distress. uncomfortable, Behavior is calm, cooperative. rs5 Musculoskeletal: Range of motion: intact in all extremities. Historical: - Allergies: 11:37 No Known Allergies; iw - PMHx: 11:35 Asthma; Bipolar disorder; Anxiety; Depression; detox seizures; scalp laceration repair.;iw - PSHx: 11:35 I\T\D; iw - Immunization history:: Adult Immunizations Adult Immunizations Client reports receiving the 2nd dose of the Covid vaccine. - Infectious Disease History:: Denies. - Social history:: Smoking status: Patient reports the use of cigarette tobacco products. Screenin:40 [facility] ED Fall Risk Assessment (Adult) History of falling in the last 3 months, rs5 including since admission No falls in past 3 months (0 pts) Confusion or Disorientation No (0 pts) Intoxicated or Sedated No (0 pts) Impaired Gait No (0 pts) Mobility Assist Device Used No (0 pt) Altered Elimination No (0 pt) Score/Fall Risk Level 0 - 2 = Low Risk Oriented to surroundings, Maintained a safe environment. Abuse screen: Denies threats or abuse. Nutritional screening: No deficits noted. Tuberculosis screening: No symptoms or risk factors identified. Assessment: 11:40 General: Appears in no apparent distress. uncomfortable, Behavior is calm, cooperative. rs5 Pain: Complains of pain in left low back Pain currently is 8 out of 10 on a pain scale. Quality of pain is described as aching, Is continuous. Neuro: Level of Consciousness is awake, alert, obeys commands, Oriented to person, place, time, situation. Cardiovascular: Rhythm is regular. Respiratory: Airway is patent Respiratory effort is even, unlabored, Respiratory pattern is regular, symmetrical. GI: Abdomen is round non-distended, Abd is soft and non tender. : No signs and/or symptoms were reported regarding the genitourinary system. EENT: No signs and/or symptoms were reported regarding the EENT system. Derm: Skin is intact, Skin is pink, warm \T\ dry. Musculoskeletal: Range of motion: intact in all extremities. 11:50 Reassessment: Patient and/or family updated on plan of care and expected duration. Pain rs5 level reassessed. Patient is alert, oriented x 3, equal unlabored respirations, skin warm/dry/pink. Vital Signs: 11:35 BP 146 / 103; Pulse 98; Resp 16 S; Temp 97.9; Pulse Ox 98% ; Weight 86.18 kg; Height 5 iw ft. 8 in. ; Pain 8/10; 11:50 BP 137 / 96; Pulse 80; Resp 18; Pulse Ox 99% on R/A; rs5 11:35 Body Mass Index 28.89 (86.18 kg, 172.72 cm) iw 11:35 Pain Scale: Adult iw ED Course: 11:20 Patient arrived in ED. mr 11:23 Summer Lindo FNP [facility] jh7 11:23 Dex Zuniga MD is Attending Physician. jh7 11:35 Triage completed. iw 11:37 Arm band placed on. iw 11:40 Patient has correct armband on for positive identification. Placed in gown. Bed in low rs5 position. Call light in reach. Side rails up X2. 11:40 No provider procedures requiring assistance completed. rs5 11:41 Stone, Coy, RN is Primary Nurse. rs5 11:50 IV discontinued, intact, bleeding controlled, No redness/swelling at site. Pressure rs5 dressing applied. Administered Medications: 11:37 Drug: Ketorolac IM 60 mg IM once Route: IM; Site: left deltoid; rs5 11:37 Drug: Diazepam PO 2 mg PO once Route: PO; rs5 Medication: 11:30 VIS not applicable for this client. rs5 Outcome: 11:38 Discharge ordered by . 7 11:50 Discharged to home ambulatory, rs5 11:50 Condition: stable 11:50 Discharge instructions given to patient, family, Instructed on discharge instructions, follow up and referral plans. Demonstrated understanding of instructions, follow-up care, medications, Prescriptions given X 1, 11:51 Patient left the ED. rs5 Signatures: Tatiana Arguelles, Reg Reg Gabi Paulson, RN RN iw Summer Lindo, ABSENCE MANAGEMENT CONSULTANT ABSENCE MANAGEMENT CONSULTANT [facility] Coy Stone, RN RN rs5 Corrections: (The following items were deleted from the chart) 11:37 11:35 Resp 16bpm; Spontaneous; Pulse Ox 98%; Temp 97.9F; iw iw
--- NOTE | 2024-01-20 11:39 | EDPHYS ---
Physician Documentation [facility] [place] Name: Anthony Au Age: 38 yrs Sex: Male : 1985 Arrival Date: 01/20/2024 Time: 11:18 Bed 18 Private MD: ED Physician Dex Zuniga HPI: 01/19 11:35 This 38 yrs old Male presents to ER via Ambulatory with complaints of Back jh7 Pain. 11:35 The patient presents with pain that is chronic, with no known mechanism of injury. The jh7 symptoms are located in the left low back. Onset: The symptoms/episode began/occurred 3 week(s) ago. The pain does not radiate. Associated signs and symptoms: The patient has no apparent associated signs or symptoms. The problem was sustained from a chronic condition. Patient with a past medical history of bipolar, anxiety, and depression reports left lower chronic back pain that he reports is similar to the last visit he was here. He requests Valium.. Historical: - Allergies: 11:37 No Known Allergies; iw - PMHx: 11:35 Asthma; Bipolar disorder; Anxiety; Depression; detox seizures; scalp laceration repair.;iw - PSHx: 11:35 I\T\D; iw - Immunization history:: Adult Immunizations Adult Immunizations Client reports receiving the 2nd dose of the Covid vaccine. - Infectious Disease History:: Denies. - Social history:: Smoking status: Patient reports the use of cigarette tobacco products. ROS: 11:35 Constitutional: Negative for fever, chills, and weight loss, Eyes: Negative for injury, jh7 pain, redness, and discharge, Neck: Negative for injury, pain, and swelling, Cardiovascular: Negative for chest pain, palpitations, and edema, Respiratory: Negative for shortness of breath, cough, wheezing, and pleuritic chest pain, Abdomen/GI: Negative for abdominal pain, nausea, vomiting, diarrhea, and constipation, MS/Extremity: Negative for injury and deformity, Skin: Negative for injury, rash, and discoloration, Neuro: Negative for headache, weakness, numbness, tingling, and seizure, 11:35 Back: Positive for pain at rest, pain with movement, of the left low back, Negative for injury or acute deformity, 11:35 All other systems are negative, Exam: 11:35 Constitutional: This is a well developed, well nourished patient who is awake, alert, jh7 and in no acute distress. Head/Face: Normocephalic, atraumatic. Neck: Trachea midline, no thyromegaly or masses palpated, and no cervical lymphadenopathy. Supple, full range of motion without nuchal rigidity, or vertebral point tenderness. No Meningismus. Cardiovascular: Regular rate and rhythm with a normal S1 and S2. No gallops, murmurs, or rubs. Normal PMI, no JVD. No pulse deficits. Respiratory: Lungs have equal breath sounds bilaterally, clear to auscultation and percussion. No rales, rhonchi or wheezes noted. No increased work of breathing, no retractions or nasal flaring. Skin: Warm, dry with normal turgor. Normal color with no rashes, no lesions, and no evidence of cellulitis. MS/ Extremity: Pulses equal, no cyanosis. Neurovascular intact. Full, normal range of motion. Neuro: Awake and alert, GCS 15, oriented to person, place, time, and situation. Cranial nerves II-XII grossly intact. Motor strength 5/5 in all extremities. Sensory grossly intact. Cerebellar exam normal. Normal gait. 11:35 Back: pain, that is moderate, of the left low back, ROM is painful, normal spinal alignment noted, CVA tenderness, is absent, Vital Signs: 11:35 BP 146 / 103; Pulse 98; Resp 16 S; Temp 97.9; Pulse Ox 98% ; Weight 86.18 kg; Height 5 iw ft. 8 in. ; Pain 8/10; 11:50 BP 137 / 96; Pulse 80; Resp 18; Pulse Ox 99% on R/A; rs5 11:35 Body Mass Index 28.89 (86.18 kg, 172.72 cm) iw 11:35 Pain Scale: Adult iw MDM: 11:23 Patient medically screened. [facility] 11:47 Differential diagnosis: arthritis, chronic back pain, Osteoarthritis. Data reviewed: [facility] vital signs, nurses notes. I considered the following discharge prescriptions or medication management in the emergency department Medications were administered in the Emergency Department. See MAR. Care significantly affected by the following chronic conditions: Mental illness. Counseling: I had a detailed discussion with the patient and/or guardian regarding the historical points, exam findings, and any diagnostic results supporting the discharge/admit diagnosis, to return to the emergency department if symptoms worsen or persist or if there are any questions or concerns that arise at home. 11:47 Response to treatment: the patient's symptoms have mildly improved after treatment. [facility] Special discussion: Informed the patient that I could give a small dose of Valium in the ER, but that I could not refill a benzodiazepine prescription. The patient stated that he understood.. Administered Medications: 11:37 Drug: Ketorolac IM 60 mg IM once Route: IM; Site: left deltoid; rs5 11:37 Drug: Diazepam PO 2 mg PO once Route: PO; rs5 Disposition: 13:18 Co-signature as Attending Physician, Dex Zuniga MD I reviewed the patient's care rt provided by the Advanced Practice Provider and agree with the diagnosis and treatment plan. Disposition Summary: 01/20/24 11:38 Discharge Ordered Notes: Location: Home [facility] Problem: chronic [facility] Symptoms: are unchanged [facility] Condition: Stable [facility] Diagnosis - Low back pain [facility] Followup: [facility] - With: Private Physician - When: 2 - 3 days - Reason: Recheck today's complaints Discharge Instructions: - Discharge Summary Sheet [facility] - Chronic Back Pain [facility] Forms: - Medication Reconciliation Form [facility] - Thank You Letter [facility] - Prescription Opioid Use [facility] - Patient Portal Instructions [facility] - Leadership Thank You Letter [facility] Prescriptions: - Naprosyn 500 mg Oral Tablet - take 1 tablet ORAL route 2 times per day take with food; 30 tablet; Refills: 0, [facility] Product Selection Permitted - Zanaflex 4 mg Oral tablet - take 1 tablet ORAL route every 8 hours As needed; 15 tablet; Refills: 0, [facility] Product Selection Permitted Signatures: Gabi Paulson, RN RN Summer Lindo FNP FNP [facility] Dex Zuniag MD MD rt Coy Stone RN RN rs5
[2024-01-20] MEDS ORDERED: DIAZEPAM 2 MG TABLET ONE (11:44)
[2024-01-20] MEDS ORDERED: KETOROLAC 30 MG/ML INJ ONE (11:44)
[2024-01-20 12:09] VITALS: BP 146/103; TEMP 97.9; O2SAT 98
== END 2024-01-20 11:51 | disposition home or self-care (01) ==
LOC: ER 11:18
DX: M54.50 Low back pain, unspecified (principal)
CPT/HCPCS: 96372; 99284

== ENCOUNTER 2024-01-23 15:14 | Emergency (ER) | payer SELFPAY ==
--- OUTSIDE RECORDS SUMMARY | 2024-01-23 15:21 | XMS REPORT | Continuity of Care Document ---
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 [facility] CONSENT/REFUSAL FOR DIAGNOSIS AND TREATMENT 2023-11-01 18:57:25 Doctor Unassigned, [facility] CONSENT/REFUSAL FOR DIAGNOSIS AND TREATMENT 2023-10-02 17:51:45 Doctor Unassigned, [facility] NOTICE OF PRIVACY PRACTICES 2023-09-29 00:09:30 Doctor Unassigned, [facility] CONSENT/REFUSAL FOR DIAGNOSIS AND TREATMENT 2023-09-29 00:09:09 Doctor Unassigned, [facility] CONSENT/REFUSAL FOR DIAGNOSIS AND TREATMENT 2022-06-06 17:25:33 Doctor Unassigned, [facility] BASIC METABOLIC PANEL 2022-06-02 03:57:00 Ian Lawson [facility] BASIC METABOLIC PANEL 2022-06-02 03:57:00 Ian Lawson [facility] AMIKACIN, TROUGH LEVEL 2022-05-31 21:13:00 Mely Soliz Formerly Named [facility] AMIKACIN, TROUGH LEVEL 2022-05-31 21:13:00 Mely Soliz pam [facility] WOUND/ABSCESS CULTURE AND GRAM STAIN 2022-05-31 08:53:00 Germán, [facility] AFB STAIN AND CULTURE 2022-05-31 08:53:00 GermánGuanako [facility] ANAEROBE CULTURE 2022-05-31 08:53:00 GermánNabil [facility] FUNGUS STAIN AND CULTURE 2022-05-31 08:53:00 [facility] STAIN AND CULTURE 2022-05-31 08:53:00 Germán, [facility] ANAEROBE CULTURE 2022-05-31 08:53:00 Germán, [facility] FUNGUS STAIN AND CULTURE 2022-05-31 08:53:00 Germán, [facility] WOUND/ABSCESS CULTURE AND GRAM STAIN 2022-05-31 08:53:00 Germán, [facility] BASIC METABOLIC PANEL 2022-05-31 05:12:00 Lulu [facility] BASIC METABOLIC PANEL 2022-05-31 05:12:00 Lawson [facility] GLUCOSE POC 2022-05-29 08:04:00 Lupe [facility]urch [facility] GLUCOSE POC 2022-05-29 08:04:00 Lupe [facility] CBC (WITHOUT DIFFERENTIAL) 2022-05-29 04:33:00 [facility] BASIC METABOLIC PANEL 2022-05-29 04:33:00 Lulu [facility] BASIC METABOLIC PANEL 2022-05-29 04:33:00 LawsonIan [facility] CBC (WITHOUT DIFFERENTIAL) 2022-05-29 04:33:00 [facility] GLUCOSE POC 2022-05-28 16:49:00 Lupe Burch [facility] GLUCOSE POC 2022-05-28 16:49:00 Lupe [facility] GLUCOSE POC 2022-05-28 11:46:00 Lupe [facility] GLUCOSE POC 2022-05-28 11:46:00 Lupe [facility] GLUCOSE POC 2022-05-28 08:24:00 Lupe [facility] GLUCOSE POC 2022-05-28 08:24:00 Lupe [facility]urch [facility] CBC (WITHOUT DIFFERENTIAL) 2022-05-28 04:36:00 Heath Lawson [facility] BASIC METABOLIC PANEL 2022-05-28 04:36:00 Ian Lawson [facility] BASIC METABOLIC PANEL 2022-05-28 04:36:00 Ian Lawson [facility] CBC (WITHOUT DIFFERENTIAL) 2022-05-28 04:36:00 Heath Lawson [facility] CBC (WITHOUT DIFFERENTIAL) 2022-05-27 05:10:00 Heath Lawson [facility] BASIC METABOLIC PANEL 2022-05-27 05:10:00 LawsonIan [facility] AMIKACIN, RANDOM LEVEL 2022-05-27 05:10:00 Marcin Matteo Marrero [facility] BASIC METABOLIC PANEL 2022-05-27 05:10:00 Ian Lawson [facility] CBC (WITHOUT DIFFERENTIAL) 2022-05-27 05:10:00 Heath Lawson [facility] AMIKACIN, RANDOM LEVEL 2022-05-27 05:10:00 Marcin Matteo Marrero [facility] AMIKACIN, RANDOM LEVEL 2022-05-26 23:35:00 Marcin Matteo Marrero [facility] AMIKACIN, RANDOM LEVEL 2022-05-26 23:35:00 Marcin Matteo mora [facility] AMIKACIN, TROUGH LEVEL 2022-05-26 05:53:00 Hazel Obando [facility] CBC (WITHOUT DIFFERENTIAL) 2022-05-26 05:53:00 Heath Lawson [facility] BASIC METABOLIC PANEL 2022-05-26 05:53:00 LawsonIan [facility] BASIC METABOLIC PANEL 2022-05-26 05:53:00 LawsonIan [facility] CBC (WITHOUT DIFFERENTIAL) 2022-05-26 05:53:00 Heath Lawson [facility] AMIKACIN, TROUGH LEVEL 2022-05-26 05:53:00 Hazel Obando [facility] CONSULT CLINICAL CASE MANAGEMENT (RN/SW) 2022-05-25 14:55:14 Myles Lazcano [facility] CONSULT CLINICAL CASE MANAGEMENT (RN/SW) 2022-05-25 14:55:14 Myles Lazcano [facility] CBC/DIFF 2022-05-25 08:24:00 Heath Lawson [facility] BASIC METABOLIC PANEL 2022-05-25 08:24:00 Ian Lawson [facility] CBC 2022-05-25 08:24:00 Heath Lawson [facility] BASIC METABOLIC PANEL 2022-05-25 08:24:00 Ian Lawson [facility] CBC/DIFF 2022-05-25 08:24:00 Heath Lawson [facility] CBC 2022-05-25 08:24:00 Heath Lawson [facility] ANAEROBE CULTURE 2022-05-24 20:47:00 [facility]ESS [facility] AND GRAM STAIN 2022-05-24 20:47:00 [facility] 2022-05-24 20:47:00 [facility] WOUND/ABSCESS CULTURE AND GRAM STAIN 2022-05-24 20:47:00 [facility] C[facility]URE 2022-05-24 15:44:00 Germán [facility] FUNGUS STAIN AND CULTURE 2022-05-24 15:44:00 Pilo Dunlap [facility] AFB STAIN AND CULTURE 2022-05-24 15:44:00 Germán [facility] FUNGUS STAIN AND CULTURE 2022-05-24 15:44:00 Pilo Dunlap [facility] INFUSION PUMP 2022-05-24 04:24:23 Lupe Burch [facility] INFUSION PUMP 2022-05-24 04:24:23 Lupe Burch [facility] CBC/DIFF 2022-05-24 04:22:00 Yasmany Gonzalez [facility] CBC 2022-05-24 04:22:00 Yasmany Gonzalez [facility] CBC/DIFF 2022-05-24 04:22:00 Yasmany Gonzalez [facility] CBC 2022-05-24 04:22:00 Yasmany Gonzalez [facility] HIV AG/AB COMBO DIAGNOSTIC/SYMPTOMATIC 2022-05-23 18:44:00 [facility] HEPATITIS PANEL 2022-05-23 18:44:00 [facility] HEPATITIS PANEL 2022-05-23 18:44:00 Adore [facility] HIV AG/AB COMBO DIAGNOSTIC/SYMPTOMATIC 2022-05-23 18:44:00 [facility] SARS-COV-2, FLU A/B, RSV 2022-05-23 15:41:00 Orlando Donald [facility] CORONAVIRUS, COVID-19, YOKASTA 2022-05-23 15:41:00 Orlando Donald [facility] CORONAVIRUS, COVID-19, YOKASTA 2022-05-23 15:41:00 Orlando Donald [facility] SARS-COV-2, FLU A/B, RSV 2022-05-23 15:41:00 Orlando Donald [facility] BASIC METABOLIC PANEL 2022-05-23 11:25:00 German Mckinney [facility] CBC/DIFF 2022-05-23 11:25:00 Stefanie Mckinney [facility] CBC 2022-05-23 11:25:00 Stefanie Mckinney [facility] SED RATE 2022-05-23 11:25:00 Orlando Donald [facility] C-REACTIVE PROT 2022-05-23 11:25:00 Orlando Donald [facility] BASIC METABOLIC PANEL 2022-05-23 11:25:00 German cMkinney [facility] CBC/DIFF 2022-05-23 11:25:00 Stefanie Mckinney [facility] C-REACTIVE PROT 2022-05-23 11:25:00 Orlando Donald [facility] SED RATE 2022-05-23 11:25:00 Orlando Donald [facility] CBC 2022-05-23 11:25:00 Stefanie Mckinney [facility] LIMITED BEDSIDE ULTRASOUND 2022-05-23 11:08:27 Unknown, Provider [facility] HC POC URINE DRUG SCREEN 2022-05-19 21:30:00 Jennifer Alcala [facility] HC POC URINE DRUG SCREEN 2022-05-19 [facility] 2022-05-19 19:03:24 Chris Marrufo [facility] I&D OF ABSCESS 2022-05-19 19:03:24 Chris Marrufo [facility] WOUND/ABSCESS CULTURE AND GRAM STAIN 2022-05-19 18:54:00 Chris Marrufo [facility] WOUND/ABSCESS CULTURE AND GRAM STAIN 2022-05-19 18:54:00 Chris Marrufo [facility] XRAY FOREARM 2 VIEWS MIN 2022-05-19 17:04:37 Keagan Wells [facility] XRAY FOREARM 2 VIEWS MIN 2022-05-19 17:04:37 Keagan Wells graciela [facility] CBC/DIFF 2022-05-19 14:29:00 Tramaine [facility] BASIC METABOLIC PANEL 2022-05-19 14:29:00 [facility] LACT[facility] ACID 2022-05-19 14:29:00 Tramaine [facility] CBC 2022-05-19 14:29:00 Tramaine [facility] SED RATE 2022-05-19 14:29:00 [facility] C-REACTIVE PROT 2022-05-19 14:29:00 Russell [facility] BASIC METABOLIC PANEL 2022-05-19 14:29:00 Dana Wells [facility] CBC/DIFF 2022-05-19 14:29:00 Tramaine [facility] C-REACTIVE PROT 2022-05-19 14:29:00 Tramaine [facility] LACTIC ACID 2022-05-19 14:29:00 Tramaine [facility] SED RATE 2022-05-19 14:29:00 [facility] CBC 2022-05-19 14:29:00 Tramaine [facility] HC POC URINE DRUG SCREEN 2022-05-19 11:15:00 [facility] HC POC URINE DRUG SCREEN 2022-05-19 11:15:[address] [facility] POC COVID-19 2022-05-17 17:50:00 Kerline Omer [facility] HC POC URINE DRUG SCREEN 2022-05-12 17:47:00 Rebel Case [facility] HC POC URINE DRUG SCREEN 2022-05-12 17:47:00 Rebel Case [facility] POC COVID-19 2022-05-11 23:56:00 Rebel Case [facility] XRAY WRIST 3 VIEWS MIN 2022-05-11 17:04:00 [facility]FF 2022-05-11 16:20:00 Michael Hanh [facility] BASIC METABOLIC PANEL 2022-05-11 16:20:00 German Rodriguez [facility] HIV AG/AB COMBO ROUTINE SCREENING 2022-05-11 16:20:00 [facility] CBC 2022-05-11 16:20:00 Michael Hanh [facility] URINE DRUG (IMMUNOASSAY) - COMPREHENSIVE DRUG SCREEN 2021-01-30 22:04:00 Shy Martin [facility] HEPATIC FUNCTION PANEL (30462) (ALB,T.PRO,BILI T,BU/BC,ALT,AST,ALK PHOS) 2021-01-30 22:03:00 Shy Martin [facility] BASIC METABOLIC PANEL (NA, K, CL, CO2, GLUCOSE, BUN, CREATININE, CA) 2021-01-30 22:03:00 Shy Martin [facility] SALICYLATE 2021-01-30 22:03:00 Shy [facility] 2021-01-30 22:03:00 [facility] WITH [facility]FF 2021-01-30 22:03:00 [facility]YSIS 2021-01-30 22:02:00 [facility] COVID-[facility] (ID NOW RAPID TESTING) 2021-01-30 22:02:00 Shy Martin [facility] NOTICE OF PRIVACY PRACTICES 2021-01-30 21:37:21 Doctor Unassigned, [facility] CONSENT/REFUSAL FOR DIAGNOSIS AND TREATMENT 2021-01-30 21:37:00 Doctor Unassigned, [facility] Plan of Care Planned Activity Planned Date Details Comments [facility] Scheduled Test 2023-07-02 00:00:00 IMM Influenza Seasonal (>/= 19 yrs) [code = IMM Influenza Seasonal (>/= 19 yrs)] [facility] Scheduled Test 2023-07-02 00:00:00 IMM Influenza Seasonal (>/= 19 yrs) [code = IMM Influenza Seasonal (>/= 19 yrs)] [facility] Scheduled Test 2023-06-02 00:00:00 IMM Influenza Seasonal (>/= 19 yrs) [code = IMM Influenza Seasonal (>/= 19 yrs)] [facility] Scheduled Test 2023-06-02 00:00:00 IMM Influenza Seasonal (>/= 19 yrs) [code = IMM Influenza Seasonal (>/= 19 yrs)] [facility] Scheduled Test 2023-06-02 00:00:00 IMM Influenza Seasonal (>/= 19 yrs) [code = IMM Influenza Seasonal (>/= 19 yrs)] [facility] Scheduled Test 2023-06-02 00:00:00 IMM Influenza Seasonal (>/= 19 yrs) [code = IMM Influenza Seasonal (>/= 19 yrs)] [facility] Scheduled Test 2023-06-02 00:00:00 IMM Influenza Seasonal (>/= 19 yrs) [code = IMM Influenza Seasonal (>/= 19 yrs)] [facility] Scheduled Test 2023-06-02 00:00:00 COVID-19 Vaccine ( season) [code = COVID-19 Vaccine ( season)] [facility] Scheduled Test 2023-06-02 00:00:00 IMM Influenza Seasonal (>/= 19 yrs) [code = IMM Influenza Seasonal (>/= 19 yrs)] [facility] Scheduled Test 2023-06-02 00:00:00 COVID-19 Vaccine ( season) [code = COVID-19 Vaccine ( season)] [facility] Scheduled Test 2023-06-02 00:00:00 IMM Influenza Seasonal (>/= 19 yrs) [code = IMM Influenza Seasonal (>/= 19 yrs)] [facility] Scheduled Test 2022-07-02 00:00:00 IMM Influenza Seasonal (>/= 19 yrs) [code = IMM Influenza Seasonal (>/= 19 yrs)] [facility] Scheduled Test 2022-07-02 00:00:00 IMM Influenza Seasonal (>/= 19 yrs) [code = IMM Influenza Seasonal (>/= 19 yrs)] [facility] Scheduled Test 2022-07-02 00:00:00 IMM Influenza Seasonal (>/= 19 yrs) [code = IMM Influenza Seasonal (>/= 19 yrs)] [facility] Scheduled Test 1992 00:00:00 Imm Pneumococcal 0-64 (1 - PCV) [code = Imm Pneumococcal 0-64 (1 - PCV)] [facility] Scheduled Test 1992 00:00:00 Imm Pneumococcal 0-64 (1 - PCV) [code = Imm Pneumococcal 0-64 (1 - PCV)] [facility] Scheduled Test 1992 00:00:00 Imm Pneumococcal 0-64 (1 - PCV) [code = Imm Pneumococcal 0-64 (1 - PCV)] [facility] Scheduled Test 1992 00:00:00 Imm Pneumococcal 0-64 (1 - PCV) [code = Imm Pneumococcal 0-64 (1 - PCV)] [facility] Scheduled Test 1992 00:00:00 Imm Pneumococcal 0-64 (1 - PCV) [code = Imm Pneumococcal 0-64 (1 - PCV)] [facility] Scheduled Test 1992 00:00:00 Imm Pneumococcal 0-64 (1 - PCV) [code = Imm Pneumococcal 0-64 (1 - PCV)] [facility] Scheduled Test 1992 00:00:00 Imm Pneumococcal 0-64 (1 - PCV) [code = Imm Pneumococcal 0-64 (1 - PCV)] [facility] Scheduled Test 1992 00:00:00 Imm Pneumococcal 0-64 (1 - PCV) [code = Imm Pneumococcal 0-64 (1 - PCV)] [facility] Scheduled Test 1992 00:00:00 Imm Pneumococcal 0-64 (1 of 2 - PCV) [code = Imm Pneumococcal 0-64 (1 of 2 - PCV)] [facility] Scheduled Test 1992 00:00:00 Imm Pneumococcal 0-64 (1 of 2 - PCV) [code = Imm Pneumococcal 0-64 (1 of 2 - PCV)] [facility] Scheduled Test 1992 00:00:00 Imm Pneumococcal 0-64 (1 of 2 - PCV) [code = Imm Pneumococcal 0-64 (1 of 2 - PCV)] [facility] Scheduled Test 1992 00:00:00 Imm Pneumococcal 0-64 (1 of 2 - PCV) [code = Imm Pneumococcal 0-64 (1 of 2 - PCV)] [facility] Scheduled Test 1986 00:00:00 COVID-19 Vaccine (#1) [code = COVID-19 Vaccine (#1)] [facility] Scheduled Test 1986 00:00:00 COVID-19 Vaccine (#1) [code = COVID-19 Vaccine (#1)] [facility] Scheduled Test 1986 00:00:00 COVID-19 Vaccine (#1) [code = COVID-19 Vaccine (#1)] [facility] Scheduled Test 1986 00:00:00 COVID-19 Vaccine (#1) [code = COVID-19 Vaccine (#1)] [facility] Scheduled Test 1986 00:00:00 COVID-19 Vaccine (#1) [code = COVID-19 Vaccine (#1)] [facility] Scheduled Test 1986 00:00:00 COVID-19 Vaccine (#1) [code = COVID-19 Vaccine (#1)] [facility] Scheduled Test 1986 00:00:00 COVID-19 Vaccine (#1) [code = COVID-19 Vaccine (#1)] [facility] Scheduled Test 1986 00:00:00 COVID-19 Vaccine (#1) [code = COVID-19 Vaccine (#1)] [facility] Scheduled Test 1986 00:00:00 COVID-19 Vaccine (#1) [code = COVID-19 Vaccine (#1)] [facility] Scheduled Test 1986 00:00:00 COVID-19 Vaccine (#1) [code = COVID-19 Vaccine (#1)] [facility] Scheduled Test 1986 00:00:00 Fluoride Varnish [code = Fluoride Varnish] [facility] Scheduled Test 1986 00:00:00 Fluoride Varnish [code = Fluoride Varnish] [facility] Encounters Start Date/Time End Date/Time Encounter Type Admission Type Attending [facility] Care Department Encounter ID Source 2022-06-15 12:36:45 Outpatient [facility] [id number] [facility] 2022-06-14 12:01:29 Emergency HFD HFD [id number] [facility] ent 2022-06-06 23:18:34 Outpatient [facility] [id number] [facility] 2022-06-06 23:16:04 Outpatient [facility] [id number] [facility] 2022-04-06 05:42:38 Outpatient [facility] [id number] [facility] 2020-12-14 08:08:00 Inpatient [facility] LJ [id number] [facility] 2020-12-13 19:49:00 Inpatient HCABM LJ [id number] [facility] 2020-12-06 14:30:44 Inpatient HCABM HCABM [id number] [facility] 2024-01-02 00:00:00 2024-01-02 00:00:00 Patient Outreach Tatiana Allen 1..[id number] [facility] 2023-11-01 13:02:00 2023-11-01 14:34:00 Emergency X Elal GONZALEZ [facility] ERT [id number] [facility] 2023-11-01 13:02:00 2023-11-01 14:34:00 Emergency Ella Gonzalez [facility] 1..[id number] [facility] 2023-10-02 11:59:00 2023-10-02 12:42:00 Emergency X DEB BURGOS [facility] ERT [id number] [facility] 2023-10-02 11:59:00 2023-10-02 12:42:00 Emergency Deb Burgos [facility] [id number] [facility] 2023-09-28 18:19:00 2023-09-28 19:26:00 Emergency X DYANA JORGNESEN [facility] ERT [id number] [facility] 2023-09-28 18:19:00 2023-09-28 19:26:00 Emergency Dyana Jorgensen [facility] [id number] [facility] 2023-09-28 00:00:00 2023-09-28 00:00:00 Orders Only Doctor Unassigned, [facility] [id number] [facility] 2022-06-24 08:00:00 2022-06-24 08:30:00 Office Visit Fanta Hernandez [facility] [id number] [facility] 2022-06-20 00:00:00 2022-06-20 00:00:[address] [facility] [id number] [facility] 2022-06-06 12:34:00 2022-06-06 13:23:00 Emergency DANIEL PARKER [facility] ERT [id number] [facility] 2022-06-06 12:34:00 2022-06-06 13:23:00 Emergency Tim Montegut [facility] [id number] [facility] 2022-06-03 00:00:00 2022-06-04 22:29:00 Emergency [facility] [id number] [facility] 2022-06-03 00:00:00 2022-06-04 22:29:00 Emergency [facility] [id number] [facility] 2022-06-03 23:37:47 2022-06-03 23:59:[address] [facility] [id number] [facility] 2022-06-03 21:28:26 2022-06-03 23:36:[address] [facility] [id number] [facility] 2022-05-23 13:09:00 2022-06-03 18:30:00 Hospital Encounter Jose F Reyes David S [facility] [id number] [id number] [facility] 2022-05-30 16:04:37 2022-05-30 16:04:[address] [facility] [id number] [facility] 2022-05-23 13:09:00 2022-05-23 13:09:00 [address] [facility] [id number] [facility] 2022-05-22 19:04:00 2022-05-22 20:39:00 Emergency Kalina Meraz [facility] [id number] [id number] [facility] 2022-05-19 14:06:00 2022-05-19 19:49:[address] [facility] [id number] [facility] 2022-05-19 14:06:00 2022-05-19 19:49:00 Emergency Daniel Petit [facility] [id number] [id number] [id number] [facility] 2022-05-19 16:50:11 2022-05-19 17:04:[address] [facility] [id number] [facility] 2022-05-18 10:13:00 2022-05-19 10:30:[address] [facility] [id number] [facility] 2022-05-11 22:33:18 2022-05-18 09:43:[address] [facility] [id number] [facility] 2022-05-11 19:53:00 2022-05-11 21:53:00 Emergency Daniel Petit [facility] [id number] [facility] 2022-05-11 19:53:00 2022-05-11 21:53:00 Emergency Daniel Petit [facility] [id number] [facility] 2022-05-11 16:54:18 2022-05-11 17:05:[address] [facility] [id number] [facility] 2022-05-11 16:05:00 2022-05-11 16:05:[address] [facility] [id number] [facility] 2021-01-30 16:48:00 2021-01-30 23:59:00 Emergency Shy Martin [facility] [id number] 350.1.13.10 [id number] [id number] [facility] 2021-01-30 16:48:00 2021-01-30 16:48:00 Emergency X SHY MARTIN [facility] ERT [id number] [facility] 2021-01-30 00:00:00 2021-01-30 00:00:00 Orders Only Doctor Unassigned, [facility] 1..840.114 350.1.13.10 [id number] [id number] [facility] 2020-03-03 09:37:00 2020-03-03 09:37:00 Emergency X [facility] ERT [id number] [facility] Results Test Description Test Time Test Comments Results Result Co mments Source [facility] & [id number] 11:04:16* Test Item Value Reference Range Interpretation Comme nts AFB Culture (test code = 543-9) No acid fast bacilli isolated in 6 weeks AFB Stain (test code = 676-7) No acid fast bacilli seen TRACY (test code = TRACY) Reference value: N o acid fast bacilli isolated [facility] [id number] 11:04:16* Test Item Value Reference Range Interpretation Comme nts AFB Culture (test code = 543-9) No acid fast bacilli isolated in 6 weeks AFB Stain (test code = 676-7) No acid fast bacilli seen TRACY (test code = TRACY) Reference value: N o acid fast bacilli isolated [facility] [id number] 21:02:46* Test Item Value Reference Range Interpretation Comme nts AFB Culture (test code = 543-9) No acid fast bacilli isolated in 6 weeks AFB Stain (test code = 676-7) No acid fast bacilli seen TRACY (test code = TRACY) Reference value: N o acid fast bacilli isolated [facility] Lktrovr0602-82-52 21:02:45* Test Item Value Reference Range Interpretation Comme nts AFB Culture (test code = 543-9) No acid fast bacilli isolated in 6 weeks AFB Stain (test code = 676-7) No acid fast bacilli seen TRACY (test code = TRACY) Reference value: N o acid fast bacilli isolated [facility] [id number] 20:02:40* Test Item Value Reference Range Interpretation Comme nts AFB Culture (test code = 543-9) No acid fast bacilli isolated in 6 weeks AFB Stain (test code = 676-7) No acid fast bacilli seen TRACY (test code = TRACY) Reference value: N o acid fast bacilli isolated [facility] Jcdjfkh6752-04-44 19:03:24* Test Item Value Reference Range Interpretation Comme nts Fungus Culture (test code = 580-1) No fungus isolated in 4 weeks Fungus Stain (test code = 658-5) No fungal elements seen TRACY (test code = TRACY) Reference value: N o fungus isolated [facility] Fwpcrns1877-66-11 19:03:24* Test Item Value Reference Range Interpretation Comme nts Fungus Culture (test code = 580-1) No fungus isolated in 4 weeks Fungus Stain (test code = 658-5) No fungal elements seen TRACY (test code = TRACY) Reference value: N o fungus isolated [facility] [id number] 19:03:24* Test Item Value Reference Range Interpretation Comme nts Fungus Culture (test code = 580-1) No fungus isolated in 4 weeks Fungus Stain (test code = 658-5) No fungal elements seen TRACY (test code = TRACY) Reference value: N o fungus isolated [facility] Kxvarbp9986-28-59 05:04:44* Test Item Value Reference Range Interpretation Comme nts Fungus Culture (test code = 580-1) No fungus isolated in 4 weeks Fungus Stain (test code = 658-5) No fungal elements seen TRACY (test code = TRACY) Reference value: N o fungus isolated [facility] & Legiezb1072-95-75 05:04:43* Test Item Value Reference Range Interpretation Comme nts Fungus Culture (test code = 580-1) No fungus isolated in 4 weeks Fungus Stain (test code = 658-5) No fungal elements seen TRACY (test code = TRACY) Reference value: N o fungus isolated [facility] & Mcufkdu2686-95-01 04:04:04* Test Item Value Reference Range Interpretation Comme nts Fungus Culture (test code = 580-1) No fungus isolated in 4 weeks Fungus Stain (test code = 658-5) No fungal elements seen TRACY (test code = TRACY) Reference value: N o fungus isolated [facility] Btxnmbn1112-53-37 06:33:06* Test Item Value Reference Range Interpretation Comme nts Anaerobe Culture (test code = 635-3) No anaerobes isolated in 5 days TRACY (test code = TRACY) Reference value: N o anaerobes isolated [facility] [place] [facility]2022-09-05 06:33:06* Test Item Value Reference Range Interpretation Comme nts Anaerobe Culture (test code = 635-3) No anaerobes isolated in 5 days TRACY (test code = TRACY) Reference value: N o anaerobes isolated [facility] [place]2022-09-05 06:33:06* Test Item Value Reference Range Interpretation Comme nts Anaerobe Culture (test code = 635-3) No anaerobes isolated in 5 days TRACY (test code = TRACY) Reference value: N o anaerobes isolated [facility] [place]2022-09-05 06:33:06* Test Item Value Reference Range Interpretation Comme nts Anaerobe Culture (test code = 635-3) No anaerobes isolated in 5 days TRACY (test code = TRACY) Reference value: N o anaerobes isolated [facility]/Abscess Culture & Gram Ndhyr3440-29-04 08:20:27* Test Item Value Reference Range Interpretation [...] the reference value is considered "No growth". [facility]/Abscess Culture & Gram Nmojm6566-98-92 08:20:27* Test Item Value Reference Range Interpretation [...] the reference value is considered "No growth". [facility]/Abscess Culture & Gram Fpsqc6794-97-55 08:20:27* Test Item Value Reference Range Interpretation [...] the reference value is considered "No growth". [facility]/Abscess Culture & Gram Lccip9398-76-39 08:20:27* Test Item Value Reference Range Interpretation [...] the reference value is considered "No growth". [facility]/Abscess Culture & Gram Pmyhn1134-99-12 10:37:20* Test Item Value Reference Range Interpretation Comme nts Wound Culture (test code = 6463-4) 1+ Acid fast bacilli AA REFER TO [id number] Gram Stain (test code = 664-3) No organisms seen TRACY (test code = TRACY) Reference value: Non-sterile sites may be contaminated with esperanza that is considered normal or otherwise not clinically relevant. As appropriate, normal results will indicate the presence or absence of such esperanza. Otherwise, the reference value is considered "No growth". Lab Interpretation (test code = 97913-3) Abnormal [facility] [id number] 10:37:20* Test Item Value Reference Range Interpretation Comme nts Bacteria Spec Cult (test code = 6463-4) ACID-FAST BACILLUS AA 1+ Acid fast bacilliREFER TO [id number] Reference value: Non-sterile sites may be contaminated [...] 6463-4) Acid fast bacilli AA REFER TO [id number] Gram Stain (test code = 664-3) No organisms seen TRACY (test code = TRACY) Reference value: Non-sterile sites may be contaminated with esperanza that is considered normal or otherwise not clinically relevant. As appropriate, normal results will indicate the presence or absence of such esperanza. Otherwise, the reference value is considered "No growth". Lab Interpretation (test code = 03242-8) Abnormal [facility] Ikna2156-10-72 10:36:38* Test Item Value Reference Range Interpretation Comme nts Bacteria Spec Cult (test code = 6463-4) ACID-FAST BACILLUS AA Acid fast bacilliREFER TO [id number] Reference value: Non-sterile sites may be contaminated [...] 6463-4) Acid fast bacilli AA REFER TO [id number] Gram Stain (test code = 664-3) No organisms seen TRACY (test code = TRACY) Reference value: Non-sterile sites may be contaminated with esperanza that is considered normal or otherwise not clinically relevant. As appropriate, normal results will indicate the presence or absence of such esperanza. Otherwise, the reference value is considered "No growth". Lab Interpretation (test code = 51978-6) Abnormal [facility] [id number] 10:35:39* Test Item Value Reference Range Interpretation Comme nts Bacteria Spec Cult (test code = 6463-4) ACID-FAST BACILLUS AA Acid fast bacilliREFER TO [id number] Reference value: Non-sterile sites may be contaminated with esperanza that is considered normal or otherwise not clinically relevant. As appropriate, normal results will indicate the presence or absence of such esperanza. Otherwise, the reference value is considered "No growth".[facility] Bdkfzpo7934-81-39 09:36:58 * Test Item Value Reference Range Interpretation Comme [facility] Anaerobe Culture (test code = 635-3) No anaerobes isolated in 5 days TRACY (test code = TRACY) Reference value: N o anaerobes isolated [facility] Qwfdqld6769-70-56 09:36:11* Test Item Value Reference Range Interpretation Comme [facility] Anaerobe Culture (test code = 635-3) No anaerobes isolated in 5 days TRACY (test code = TRACY) Reference value: N o anaerobes isolated [facility] [id number] 09:35:49* Test Item Value Reference Range Interpretation Comme [facility] Anaerobe Culture (test code = 635-3) No anaerobes isolated in 5 days TRACY (test code = TRACY) Reference value: N o anaerobes isolated [facility] GLUCOSE POC docked lirfad4037-64-01 08:05:41* Test Item Value Reference Range Interpretation Comme [facility] Glucose POC (test code = 33799182) 107 mg/dL 74-106 H MD sanitor Notifie d Lab Interpretation (test code = 54475-7) Abnormal [facility] GLUCOSE POC docked tagtgt1461-83-41 08:05:41* Test Item Value Reference Range Interpretation Comme nts Glucose POC (test code = 48337065) 107 mg/dL 74-106 H MD sanitor Notifie d Lab Interpretation (test code = 92625-6) Abnormal [facility] GLUCOSE POC docked lxxqko3902-32-13 08:05:41* Test Item Value Reference Range Interpretation Comme nts Glucose POC (test code = 76609854) 107 mg/dL 74-106 H MD sanitor Notifie d Lab Interpretation (test code = 27639-2) Abnormal [facility] GLUCOSE POC docked [id number] 08:05:41* Test Item Value Reference Range Interpretation Comme nts Glucose POC (test code = 86820275) 107 mg/dL 74-106 H MD sanitor Notifie d Lab Interpretation (test code = 04100-2) Abnormal [facility] GLUCOSE POC docked ohakuf4513-70-91 16:50:48* Test Item Value Reference Range Interpretation Comme nts Glucose POC (test code = 88511770) 107 mg/dL 74-106 H Lab Interpretation (test cod e = 38557-3) Abnormal [facility] GLUCOSE POC docked [id number] 11:46:44* Test Item Value Reference Range Interpretation Comme nts Glucose POC (test code = 06383889) 89 mg/dL 74-106 Lab Interpretation (test cod e = 29670-8) Normal [facility] GLUCOSE POC docked pyxikm8853-80-17 08:25:07* Test Item Value Reference Range Interpretation Comme nts Glucose POC (test code = 94412090) 83 mg/dL 74-106 Lab Interpretation (test cod e = 46735-4) Normal [facility] [id number] 14:19:13* Test Item Value Reference Range Interpretation Comme nts Bacteria Spec Cult (test code = 6463-4) ACID-FAST BACILLUS AA 4+ Acid fast bacilli HHSHIV 1+2 Ab+HIV1 p24 Ag SerPl Ql [id number] 19:49:40* Test Item Value Reference Range Interpretation Comme nts HIV 1+2 Ab+HIV1 p24 Ag SerPl Ql IA (test code = 04544-7) NEGATIVE Negative HHSCoronavirus, CoVID-19, [id number] 16:40:22* Test Item Value Reference Range Interpretation Comments COVID-19 (SARS-COV-2) (test code = 30214-8) Not Detected Not Detected INTERPRETATION: No detectable [...] its performance characteristics were verified by the [facility] molecular diagnostics laboratory and is authorized for clinical diagnostic use. This laboratory is certified under the Clinical Laboratory Improvement Amendments (CLIA) as qualified to perform high complexity clinical laboratory testing. Lab Interpretation (test code = 50074-0) Normal [facility], CoVID-19, [id number] 16:40:22* Test Item Value Reference Range Interpretation Comments COVID-19 (SARS-COV-2) (test code = 78327-1) Not Detected Not Detected INTERPRETATION: No detectable [...] its performance characteristics were verified by the [facility] molecular diagnostics laboratory and is authorized for clinical diagnostic use. This laboratory is certified under the Clinical Laboratory Improvement Amendments (CLIA) as qualified to perform high complexity clinical laboratory testing. Lab Interpretation (test code = 03465-9) Normal [facility]onavirus, CoVID-19, [id number] 16:40:22* Test Item Value Reference Range Interpretation Comments COVID-19 (SARS-COV-2) (test code = 64600-1) Not Detected Not Detected INTERPRETATION: No detectable [...] its performance characteristics were verified by the [facility] molecular diagnostics laboratory and is authorized for clinical diagnostic use. This laboratory is certified under the Clinical Laboratory Improvement Amendments (CLIA) as qualified to perform high complexity clinical laboratory testing. Lab Interpretation (test code = 41966-3) Normal [facility] JakeCoronavirus, CoVID-19, [id number] 16:40:22* Test Item Value Reference Range Interpretation Comments COVID-19 (SARS-COV-2) (test code = 65179-7) Not Detected Not Detected INTERPRETATION: No detectable [...] its performance characteristics were verified by the [facility] molecular diagnostics laboratory and is authorized for clinical diagnostic use. This laboratory is certified under the Clinical Laboratory Improvement Amendments (CLIA) as qualified to perform high complexity clinical laboratory testing. Lab Interpretation (test code = 04265-6) [facility] RNA Resp Ql YOKASTA+wtbyl4469-38-86 16:40:22* Test Item Value Reference Range Interpretation Comme nts Hospitalized? (test code = 37774-1) No ICU? (test code = 93552-7) No Symptomatic as defined by CDC? (test code = 36432-0) No Employed in Healthcare? (test code = 96483-8) Unknown Resident in a congregate care setting (including nursing homes, residential care for people with intellectual and developmental disabilities, psychiatric treatment facilities, group homes, board and care homes, homeless care home, foster care or other): (test code = 76599-6) Unknown SARS-CoV-2 RNA Resp Ql YOKASTA+probe (test code = 48735-6) NOT DETECTED Not Detected INTERPRETATION: No detectable [...] its performance characteristics were verified by the [facility] molecular diagnostics laboratory and is authorized for clinical diagnostic use. This laboratory is certified under the Clinical Laboratory Improvement Amendments(CLIA) as qualified to perform high complexity clinical laboratory testing.HHSHIV 1+2 Ab+HIV1 p24 Ag SerPl Ql [id number] 17:45:02* Test Item Value Reference Range Interpretation Comme nts HIV 1+2 Ab+HIV1 p24 Ag SerPl Ql IA (test code = 47391-7) NEGATIVE Negative [id number] 23:16:25* Test Item Value Reference Range Interpretation Comme nts SALICYLATE (test code = 8786299616) <10 mg/L TRACY (test code = TRACY) Therapeutic Range: ? Analgesic and Antipyretic Use ? 20-100 mg/L ? ? Anti-Inflammatory Use ? 100-250 mg/L Toxic Range: ? Greater than 300 mg/L [facility] 23:16:15* Test Item Value Reference Range Interpretation Comme nts ALCOHOL (test code = 2261481156) <10 mg/dL TRACY (test code = TRACY) <10 Grluvdfg42-879 Toxic>100 Depression of IRRIGATION EQUIPMENT INSTALLER>400 Fatalities Reported [facility]icsACETAMINOPHEN2021-05-01 23:16:10* Test Item Value Reference Range Interpretation Comme nts ACETAMINOP (test code = 0233312973) <10.0 10.0-30.0 L TRACY (test code = TRACY) Toxic: Greater chela n 200 ug/mL @ 4 hour post ingestion or greater than 50 ug/mL @ 12 hour post ingestion Lab Interpretation (test code = 55248-1) Abnormal [facility]icsHepatic Function Panel (ALB, T.PRO, BILI T, BU/BC, ALT, AST, ALK PHOS)2021-01-30 23:14:14* Test Item Value Reference Range Interpretation Comme nts TOTAL BILI (test code = 3227313822) 0.8 mg/dL 0.1-1.1 BILI UNCON (test code = 0686748582) 0.6 mg/dL 0.1-1.1 BILI CONJ (test code = 1425645059) 0.0 mg/dL 0.0-0.3 T PROTEIN (test code = 8302923756) 7.5 g/dL 6.3-8.2 ALBUMIN (test code = 9509596067) 4.8 g/dL 3.5-5.0 ALK PHOS (test code = 5568455829) 63 U/L 34-122 ALTv (test code = 1742-6) 33 U/L 5-50 AST(SGOT) (test code = 9044628241) 36 U/L 13-40 Lab Interpretation (test cod e = 22432-5) Normal [facility]icsBasic Metabolic Panel (NA, K, CL, CO2, GLUCOSE, BUN, CREATININE, CA)2021-01-30 23:13:54* Test Item Value Reference Range Interpretation Comme nts NA (test code = 5562749074) 142 mmol/L 135-145 K (test code = 0496181511) 4.3 mmol/L 3.5-5.0 CL (test code = 7941888029) 105 mmol/L 98-108 CO2 TOTAL (test code = 3349708091) 25 mmol/L 23-31 AGAP (test code = 8085834270) 2-16 BUN (test code = 3139843529) 17 mg/dL 7-23 GLUCOSE (test code = 9805085150) 86 mg/dL 70-110 CREATININE (test code = 4859033668) 0.85 mg/dL 0.60-1.25 CALCIUM (test code = 0588501200) 9.9 mg/dL 8.6-10.6 eGFR (test code = 9236908868) mL/min/1.73m2 TRACY (test code = TRACY) Association [...] or urine or abnormalities in imaging tests). [facility]icsURINE DRUG (IMMUNOASSAY) - COMPREHENSIVE DRUG [id number] 23:05:57* Test Item Value Reference Range Interpretation Comme nts AMPHET (test code = 6168001660) Presumptive Positive Negative A CHACORTA U (test code = 3631349165) Negative Negative BENZO U (test code = 7540964527) Presumptive Positive Negative A Cocaine Metabolite (test code = 2074435826) Negative Negative METHADONE (test code = 8328648922) Negative Negative OPIATES (test code = 7041483503) Presumptive Positive Negative A PCP (test code = 8575939641) Negative Negative THC (test code = 1307541880) Presumptive Positive Negative A TRACY (test code [...] legal testing). Lab Interpretation (test code = 72737-4) Abnormal [facility]icsCOVID-19 (ID NOW RAPID TESTING)2021-01-30 22:34:55* Test Item Value Reference Range Interpretation Comme nts SARS-CoV-2 Rapid ID NOW (test code = 85604-3) Not Detected Not Detected TRACY (test code = TRACY) ID NOW COVID-19 As say is an isothermal nucleic acid amplification test intended for the qualitative detection of nucleic acid from SARS-CoV-2 viral RNA in nasopharyngeal (TOOL DIE MAKER) specimens. It is used under Emergency Use [...] clinically indicated. Lab Interpretation (test code = 19320-9) Normal [facility] ClinicsUrinalysis2021-05-01 22:30:19* Test Item Value Reference Range Interpretation Comme nts APPEARANCE (test code = 4019834333) Clear Clear COLOR (test code = 9684085735) Yellow Yellow PH (test code = 8269691500) 4.8-8.0 SP GRAVITY (test code = 6365326256) 1.003-1.030 GLU U QUAL (test code = 2016385595) Normal Normal BLOOD (test code = 2807327097) Negative Negative KETONES (test code = 8243791893) Negative Negative PROTEIN (test code = 2887-8) Negative Negative UROBILIN (test code = 4545352359) 2.0 mg/dL Normal A BILIRUBIN (test code = 4440273458) Negative Negative NITRITE (test code = 5355598989) Negative Negative LEUK DIONE (test code = 0179849084) Negative Negative RBC/HPF (test code = 1234549661) See_Comment [Automated messa ge] The system which generated this result transmitted reference range: 0 - 3 HPF. The reference range was not used to interpret this result as normal/abnormal. WBC/HPF (test code = 6282793767) <1 See_Comment [Automated messa ge] The system which generated this result transmitted reference range: 0 - 5 HPF. The reference range was not used to interpret this result as normal/abnormal. BACTERIA (test code = 6333838980) Negative Negative SQ EPITH (test code = 2620504366) <1 HPF Lab Interpretation (test code = 78751-2) Abnormal [facility] with Oiyjslfgbjeh6736-04-18 22:19:35* Test Item Value Reference Range Interpretation [...] 34.6 g/dL 31.2-35.0 RDW-SD (test code = 50908-3) 42.8 fL 38.5-51.6 RDW-CV (test code = 788-0) 13.3 % 12.1-15.4 PLT (test code = 777-3) See_Comment H [Automated messa ge] The system which generated this result transmitted reference range: 150 - 328 10*3/?L. The reference range was not used to interpret this result as normal/abnormal. MPV (test code = 22067-0) 9.9 fL 9.8-13.0 NRBC/100 WBC (test code = 1385733953) See_Comment [Automated Get[employer] ssage] The system which generated this result transmitted reference range: 0.0 - 10.0 /100 WBCs. The reference range was not used to interpret this result as normal/abnormal. NRBC x10^3 (test code = 9009307980) <0.01 See_Comment [Automated messa ge] The system which generated this result transmitted reference range: 10*3/?L. The reference range was not used to interpret this result as normal/abnormal. GRAN MAT (NEUT) % (test code = 770-8) 79.2 % IMM GRAN % (test code = 8845864078) 0.50 % LYMPH % (test code = 736-9) 14.8 % MONO % (test code = 5905-5) 4.9 % EOS % (test code = 713-8) 0.2 % BASO % (test code = 706-2) 0.4 % GRAN MAT x10^3(ANC) (test code = 6445989838) 9.77 10*3/uL 1.99-6.95 H IMM GRAN x10^3 (test code = 1150858018) 0.06 10*3/uL 0.00-0.06 LYMPH x10^3 (test code = 731-0) 1.82 10*3/uL 1.09-3.23 MONO x10^3 (test code = 742-7) 0.60 10*3/uL 0.36-1.02 EOS x10^3 (test code = 711-2) 0.03 10*3/uL 0.06-0.53 L BASO x10^3 (test code = 704-7) 0.05 10*3/uL 0.01-0.09 Lab Interpretation (test code = 01925-8) Abnormal [facility]ics[facility] [id number] 20:48:00* Test Item Value Reference Range Interpretation Comme nts COVID 19 INHOUSE AG (test co de = GTHBT00RYCB) NEGATIVE URINALYSIS [id number] 16:11:00* Test Item Value Reference Range Interpretation [...] Urine Source? Clean CatchDRUGS OF ABUSE SCREEN [id number] 16:11:00* Test Item Value Reference Range Interpretation [...] (test code = AMPHETURN) NEGATIVE See_Comment [Automated Molecule Synth hay] The system which generated this result transmitted reference range: <1000 ng/mL. The reference range was not used to interpret this result as normal/abnormal. URN BARBITURATE (test code = BARBITURN) NEGATIVE See_Comment [Automated Molecule Synth hay] The system which generated this result [...] (test code = OPIATURN) NEGATIVE See_Comment [Automated [place] ge] The system which generated this result [...] (test code = METHAURN) NEGATIVE See_Comment [Automated [place] ge] The system which generated this result transmitted reference range: <300 ng/mL. The reference range was not used to interpret this result as normal/abnormal. Urine Source? Clean CatchURINALYSIS [id number] 15:45:00* Test Item Value Reference Range Interpretation [...] Urine Source? Clean CatchDRUGS OF ABUSE SCREEN [id number] 15:45:00* Test Item Value Reference Range Interpretation Comme nts URN COCAINE (test code = COCAURN) NEGATIVE See_Comment [Automated [place] ge] The system which generated this result transmitted reference range: <300 ng/mL. The reference range was not used to interpret this result as normal/abnormal. URN CANNABINOIDS (test code = CANNABURN) NEGATIVE See_Comment [Automated Molecule Synth hay] The system which generated this result transmitted reference range: <50 ng/mL. The reference range was not used to interpret this result as normal/abnormal. URN AMPHETAMINE (test code = AMPHETURN) NEGATIVE See_Comment [Automated Molecule Synth hay] The system which generated this result transmitted reference range: <1000 ng/mL. The reference range was not used to interpret this result as normal/abnormal. URN BARBITURATE (test code = BARBITURN) NEGATIVE See_Comment [Automated Molecule Synth hay] The system which generated this result [...] OPIATES (test code = OPIATURN) See_Comment [Automated [place] ge] The system which generated this result [...] result as normal/abnormal. Urine Source? Clean CatchURINALYSIS [id number] 14:21:00* Test Item Value Reference Range Interpretation [...] Urine Source? Clean CatchDRUGS OF ABUSE SCREEN [id number] 14:21:00* Test Item Value Reference Range Interpretation [...] result as normal/abnormal. Urine Source? Clean CatchURINALYSIS [id number] 14:18:00* Test Item Value Reference Range Interpretation [...] Urine Source? Clean CatchDRUGS OF ABUSE SCREEN [id number] 14:18:00* Test Item Value Reference Range Interpretation Comme nts URN COCAINE (test code = COCAURN) See_Comment [Automated [place] ge] The system which generated this result transmitted reference range: <300 ng/mL. The reference range was not used to interpret this result as normal/abnormal. URN CANNABINOIDS (test code = CANNABURN) See_Comment [Automated Molecule Synth hay] The system which generated this result [...] BARBITURATE (test code = BARBITURN) See_Comment [Automated [place] ge] The system which generated this result [...] OPIATES (test code = OPIATURN) See_Comment [Automated [place] ge] The system which generated this result [...] as normal/abnormal. Urine Source? Clean CatchBASIC METABOLIC [id number] 12:13:00* Test Item Value Reference Range Interpretation [...] CA) 9.9 mg/dL 8.5-10.1 N HEPATIC FUNCTION [id number] 12:13:00* Test Item Value Reference Range Interpretation [...] reference range due to change in reagent. [id number] 12:13:00* Test Item Value Reference Range Interpretation Comme nts ACETAMINOPHEN (test code = ACET) < 10 mcg/mL 10-30 L A RANGE OF 10-30 mcg/mL IS A THERAPEUTIC RANGE. TOXIC CONCENTRATIONS: >150 mcg/mL AT 4 HOURS AFTER INGESTION >= 50 mcg/mL AT 12 HOURS AFTER INGESTION [id number] 12:13:00* Test Item Value Reference Range Interpretation Comme nts SALICYLATE (test code = RENALDO) < 3.0 mg/dL 2.8-20.0 N [id number] 12:13:00* Test Item Value Reference Range Interpretation [...] ANADDITIONAL CHARGE TO THE PATIENT. CBC W/O [id number] 11:49:00* Test Item Value Reference Range Interpretation [...] 9.7 fL 6.7-11.0 N COVID 19 INHOUSE [id number] 00:12:00* Test Item Value Reference Range Interpretation Comme nts COVID 19 INHOUSE AG (test co de = [id number]) NEGATIVE URINALYSIS [id number] 20:58:00* Test Item Value Reference Range Interpretation [...] Urine Source? Clean CatchDRUGS OF ABUSE SCREEN [id number] 20:58:00* Test Item Value Reference Range Interpretation [...] as normal/abnormal. Urine Source? Clean CatchBASIC METABOLIC [id number] 20:58:00* Test Item Value Reference Range Interpretation [...] CA) 8.8 mg/dL 8.5-10.1 N HEPATIC FUNCTION [id number] 20:58:00* Test Item Value Reference Range Interpretation [...] reference range due to change in reagent. [id number] 20:58:00* Test Item Value Reference Range Interpretation Comme nts TROPONIN-I (test code = TROPI) < 0.006 ng/mL 0-0.045 N [id number] 20:58:00* Test Item Value Reference Range Interpretation Comme nts ACETAMINOPHEN (test code = ACET) < 10 mcg/mL 10-30 L A RANGE OF 10-30 mcg/mL IS A THERAPEUTIC RANGE. TOXIC CONCENTRATIONS: >150 mcg/mL AT 4 HOURS AFTER INGESTION >= 50 mcg/mL AT 12 HOURS AFTER INGESTION [id number] 20:58:00* Test Item Value Reference Range Interpretation Comme nts SALICYLATE (test code = RENALDO) < 3.0 mg/dL 2.8-20.0 N [id number] 20:58:00* Test Item Value Reference Range Interpretation [...] TO THE PATIENT. - CT HEAD/BRAIN W/O [id number] 20:52:00 [facility])Name: TEJ GUADALUPE : 1985 Sex: M Name: TEJ GUADALUPE [facility] : 1985 Age/S: 35 / M [address] [facility] Unit #: [id number] Loc: DEISY Saenz [address] Phys: Shaggy Morrow MD Acct: [id number] Dis Date: Status: PRE ER PHONE #: [phone] Exam Date: 12/13/20202017 FAX #: [phone] Reason: CONFUSION EXAMS: CPT CODE: [id number] CT HEAD/BRAIN W/O CONT 28869 HISTORY: CONFUSION TECHNIQUE: Noncontrast 2.5 mm axial [...] and middle ear cavities are clear. Orbital contentsare unremarkable. IMPRESSION: Negative CT head. Location: RR at 2051 Reported and signed by: Tano Gauthier MD CC: Shaggy Morrow MD Technologist:Camilo Staley, RT(R)(CT) CTDI: DLP: Trnscb Date/Time: 12/13/2020 (2051) t.SDR.RR31 Orig Print D/T: S: 12/13/2020 (2054) PAGE 1 Signed Report URINALYSIS [id number] 20:39:00* Test Item Value Reference Range Interpretation [...] Urine Source? Clean CatchDRUGS OF ABUSE SCREEN [id number] 20:39:00* Test Item Value Reference Range Interpretation Comme nts URN COCAINE (test code = COCAURN) See_Comment [Automated [place] ge] The system which generated this result transmitted reference range: <300 ng/mL. The reference range was not used to interpret this result as normal/abnormal. URN CANNABINOIDS (test code = CANNABURN) See_Comment [Automated Molecule Synth hay] The system which generated this result transmitted reference range: <50 ng/mL. The reference range was not used to interpret this result as normal/abnormal. URN AMPHETAMINE (test code = AMPHETURN) See_Comment [Automated [place] ge] The system which generated this result transmitted reference range: <1000 ng/mL. The reference range was not used to interpret this result as normal/abnormal. URN BARBITURATE (test code = BARBITURN) See_Comment [Automated [place] ge] The system which generated this result [...] OPIATES (test code = OPIATURN) See_Comment [Automated [place] ge] The system which generated this result [...] METHADONE (test code = METHAURN) See_Comment [Automated [place] ge] The system which generated this result transmitted reference range: <300 ng/mL. The reference range was not used to interpret this result as normal/abnormal. Urine Source? Clean CatchURINALYSIS [id number] 20:29:00* Test Item Value Reference Range Interpretation [...] Urine Source? Clean CatchDRUGS OF ABUSE SCREEN [id number] 20:29:00* Test Item Value Reference Range Interpretation Comme nts URN COCAINE (test code = COCAURN) See_Comment [Automated [place] ge] The system which generated this result transmitted reference range: <300 ng/mL. The reference range was not used to interpret this result as normal/abnormal. URN CANNABINOIDS (test code = CANNABURN) See_Comment [Automated Molecule Synth hay] The system which generated this result [...] this result as normal/abnormal. Urine Source? [facility] [id number] 20:22:00* Test Item Value Reference Range Interpretation [...] Notes Date/Time Note Provider Source 2022-06-01 16:47:23 nWmuz+WT/T9fSWtVG/Ac tGSpHtTF+dP lt/s6zJ+1qWJ+4LKen9hmXyedGKfbZK /u5615-70-48Q04:47:23Associated Order(s): CONSULT TO PHARMACY-AMINOGLYCOSIDESFormatt ing of this [...] with any questions. Sil Soliz, Pharm.D., BCIDPClinical Stock Broker - Infectious DiseasesCisco: [phone] signed by Sil Soliz [facility] at 06/01/2022 4:48 PM JIV72979-5Kzsaglc phplRN2482-43-88O23:48:27Consul t noteTXT1.2.840.027151.1.13.43.2 .7.2.607125|[id number] for patient aulv29813-7Koeomfg xfobRL865293344Smpjezs Ayn Finch [facility] IfpkSmzuhqwKtugxmdLQIU997303601 6OCWW4053-68-65R84:48:271.2.840 .374966.1.72.3.15|1.2.840.93229 0.1.13.43.2.7.2.727879_[id number] 31 Sil Jelani Soliz [facility] 2022-05-31 16:00:25 jqLhIOds0AQgns80+jXs nEmVMHtuI0Q i7MwZHboxPiq3FVy1kW/6OSpRxHOyvB jk1498-07-64W29:00:25 Pharmacy Aminoglycoside Monitoring NoteIndication: NTM SSTI/abscessDay of [...] hesitate to contact us with any questions. Sli Soliz, Pharm.D., BCIDPClinical Stock Broker - Infectious DiseasesCisco: [id number] signed by Sil Soliz [facility] at 05/31/2022 4:00 PM MPS17887-7Hdbyhnb uvzhTU0018-92-87X74:00:59Consul t noteTXT1.2.840.569168.1.13.43.2 .7.2.416870|[id number] for patient ysex98809-6Qagkavp noteLNGreene Memorial Hospital2525 [facility]umont HospitalXihsQkbpyfuXeelyfvCDCC024265453 9LLVM1834-27-17I66:00:591.2.840 .741856.1.72.3.15|1.2.840.48370 0.1.13.43.2.7.2.727879_[id number] 47 [facility] 2022-05-30 14:28:02 J+8u9kUKTxZa0wRb8uLw LMynGL2moP0 3tJSzBpOgbKRSjiiHmJhmSnCLiPXgAI Qd2678-34-61P45:28:02 Pharmacy Aminoglycoside Monitoring NoteIndication: NTM SSTI/abscessDay of [...] with any questions. Sil Soliz, Pharm.D., BCIDPClinical Stock Broker - Infectious DiseasesCisco: [id number] signed by Sil Soliz [facility] at 05/30/2022 2:36 PM ONW14616-7Hvdihwx mkehFO7819-48-26D01:36:01Consul t noteTXT1.2.840.999880.1.13.43.2 .7.2.744819|0845537535HKCjcxexg for patient cdcl47180-2Vpoxiju [id number] 8GRFT4913-54-50A14:36:011.2.840 .263547.1.72.3.15|1.2.840.45734 0.1.13.43.2.7.2.727879_[id number] [address] [place] [address] 2022-05-29 12:08:26 MpzhUkT+mZn8rCSv7SuK tXhFf1AkE51 BYYS58YefUbvbyKaeOvW35uCnOpJ+Dy Bp5512-60-42O29:08:26 Pharmacy Aminoglycoside Monitoring NoteIndication: NTM SSTI/abscessDay of therapy: 5 Target concentration: dosing per Joe nomogram, targeting goal peak ~25-45 mcg/mL, trough ~5 mcg/mL Concomitant antibiotics: Azithromycin, tigecyclineAllergies: No known allergies Pertinent Objective Labs: Date dose/frequency concentration (peak/trough/random) 05/26 800mg q24h 5.9 (9h random) 05/27 800mg q24h Peak: 20 (2.5h after end of infusion, true ~37)5.4 (9h random) 05/28- 800mg q24h Microbiology:05/24: Wound : NG Assessment:1. [...] contact us with any questions. Mariam Lepe [facility].BCOPClinical Stock Broker Hematology/OncologyCisco : [phone] signed by Mariam Lepe [facility] at 05/29/2022 12:09 PM ZMO95042-0Rbafskp tlulDX7028-79-56K73:09:49Consul t noteTXT1.2.840.673678.1.13.43.2 .7.2.115207|8569845029PADfzamuo for patient kqcd04121-0Txgldfa hdyqSZ58274012Qlgvryg Rost[address] [id number] 6CUQM7914-94-76E99:09:491.2.840 .179103.1.72.3.15|1.2.840.93249 0.1.13.43.2.7.2.727879_[id number] 42 Mariam [facility] 2022-05-28 10:27:53 CiCDJnTJGN/skp0073r0 aTnlfO1JtSk LWLGuqy8onkvdItCCyn7qswo9YIdfb9 nl5552-76-52F11:27:53 Pharmacy Aminoglycoside Monitoring NoteIndication: NTM SSTI/abscessDay of therapy: 4 Target concentration: dosing per Joe nomogram, targeting goal peak ~25-45 mcg/mL, trough ~5 mcg/mL Concomitant antibiotics: Azithromycin, tigecyclineAllergies: No known allergies Pertinent Objective Labs: Date dose/frequency concentration (peak/trough/random) 8/25 800mg q24h 5.9 (9h random) 05/27 800mg [...] contact us with any questions. Mariam Lepe [facility].BCOPClinical Stock Broker Hematology/OncologyCisco : [phone] signed by Mariam Lepe RP at 05/28/2022 10:29 AM XTF53015-7Hswwdzr vxajRA5117-15-72U26:29:36Consul t noteTXT1.2.840.054913.1.13.43.2 .7.2.115980|2606068942FHPudejom for patient ydnv70963-2Dtanaop [facility]2525 [facility] HospitalIriwDfziiuvJhpyidsZZGY435624145 1UDCK5828-99-86B48:29:361.2.840 .009922.1.72.3.15|1.2.840.06759 0.1.13.43.2.7.2.727879_[id number] [address] [place] [address] 2022-05-27 12:23:47 TZclcW6b0ur2lfKbdZLf l4VFjrZJPQL 9pELFkFbi1HXl8KJ7V6AFQITbSQSy6S te5505-39-38T79:23:47 Pharmacy Aminoglycoside Monitoring NoteIndication: NTM SSTI/abscessDay of [...] us with any questions. Ruchi Olsen, PharmD, [facility]OSPITALCPPhone: [phone] signed by Ruchi OlsenCOOPER [facility] at 05/27/2022 1:04 PM EDY76633-2Wzcxkjj ogupWG4061-54-84V37:04:50Consul t noteTXT1.2.840.522619.1.13.43.2 .7.2.703026|2479583573UFRnbgipx for patient bdwp95964-3Mxbqrhj sbxaLL223481294Ohfr Sigmon [id number] 0JLWS2652-55-68N19:04:501.2.840 .167942.1.72.3.15|1.2.840.85718 0.1.13.43.2.7.2.727879_[id number] 11 Ruchi Olsen [facility] 2022-05-26 09:18:39 03Y3y6/WZOAudXV8++ck 13NUwMhkYaI 6M2Pho8Oje/ehGNDgJ7ZqYqzc2K8FAP MW2712-70-94O02:18:39 Pharmacy Aminoglycoside Monitoring NoteIndication: NTM SSTI/abscessDay of therapy: 2 Target concentration: dosing per Juana Diaz nomogram, targeting goal peak ~25-45 mcg/mL, trough ~5 mcg/mL Concomitant antibiotics: Azithromycin, tigecyclineAllergies: No known allergies Pertinent Objective Labs: Date dose/frequency concentration (peak/trough/random) 05/26 800mg q24h 5.9 (9h random) Microbiology:pending Assessment:1. CrCl: >120,Scr/BUN stable, 2. Continues on amikacin 800mg (10mg/kg) q24h 3. Random 9h level obtained today demonstrates dose appropriate per Juana Diaz nomogramPlan: 1. Will Continue current dose2. Labs Ordered: will order 2 levels: 2-h and 8-h post dose levels to confirm Thank you for the opportunity to participate in the care of this patient. Please do not hesitate to contact us with any questions. Ruchi Olsen, PharmD, [facility]OSPITALCPPhone: [phone] signed by Ruchi Olsen [facility] at 05/26/2022 9:36 AM JMO27312-1Ojvzjwx dusqEC0509-87-48F53:36:50Consul t noteTXT1.2.840.966088.1.13.43.2 .7.2.777429|7711755250VMQmjqpxk for patient iavs75058-4Bnlebdw [facility]2525 [facility] HospitalEaioQmjbnrhHtlydwcPVII493140997 2KNBQ2537-61-55T47:36:501.2.840 .027841.1.72.3.15|1.2.840.87963 0.1.13.43.2.7.2.727879_[id number] [address] [place] [address] 2022-05-25 08:07:02 RYWxkVL/Q2KIPKl2r3kn KFM5JfnYApL QDoWoW/EgDn2ZX9to4mWcg2i0WhHhuI sB2982-21-71D62:07:02Associated Order(s): IP CONSULT TO INFECTIOUS DISEASE Images [...] another attempt at antibiotics and I&D at [facility]. He came back with worsening lesions and was admitted for same. We are consulted for his cultures growing AFB 4+. 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 He has not travelled outside of [place] recently and does not have any sick [...] and documented in the appropriate sections in [employer].Immunization history: There is no immunization history on [...] Data: All labs, images, and data reviewed. 62922-0Xkeszdh mmhpUW3648-21-16L50:04:27Consul t noteTXT1.2.840.604822.1.13.43.2 .7.2.020206|9355022882ENMkcsplf for patient xiau12277-4Tnynxap noteBellevue Hospital2525 [facility]umont HospitalBmiiQeniadeWycorfpNECA781780843 7UKOX5255-70-21D65:04:271.2.840 .966870.1.72.3.15|1.2.840.55012 0.1.13.43.2.7.2.727879_[id number] 10 [facility] 2022-05-23 21:39:21 /2xpfivydqmoJ4drcXkD lm2agzYCVvd L0hzm5efmfBx3cL2InRumkN2s8YCQa2 Dn2678-80-41M53:39:21Associated Order(s): IP CONSULT TO HAND SURGERY Plastic [...] to followChristopher Germán, MDPlastic and Reconstructive Surgery, OPZ6LdlpdxU.S. Naval HospitalPager: [phone] 2021 9:39 PMSubjective: Chief Complaint: forearm painHistory [...] with no changes. No need to repeat 70111-0Fquzsyr wkqeKI860770OlsklsbuqnAdrian Anderson B1.2.840.428525.1.13.43.2.7.2.8 92383YiikvlpopjNibpaXhgsy IFF5811-61-59Q98:42:00Consult noteTXT1.2.840.206583.1.13.43.2 .7.2.773303|9260230168UJElwkeah for patient ptyw67601-6Spsvaia noteBellevue Hospital2525 [facility]umont HospitalFmgqEqsacpvSwpxgxyXFAG615431678 4KNGI4169-65-18U35:50:061.2.840 .548669.1.72.3.15|1.2.840.91522 0.1.13.43.2.7.2.727879_[id number] 43 [facility] History and Physical Notes Date/Time Note Provider Source 2022-05-23 22:01:59 9rHA360zrC17id4wwXbn NuvsRLhHcGO 4QNODTv8A0rjH4yI0REj1QKR7e1jnWZ IJ0789-54-34D15:01:59 Medicine Team B Admission History & PhysicalAssessment/Plan:Tej [...] CODEEmergency Contact: Primary Emergency Contact: Lydia GUADALUPE, Nrcgj [facility] ZNT5KedkjvU.S. Naval Hospital10:02 PM, 05/23/2022 Chief Complaint: forearm pain [...] Please see my separate note for my attestation.77373-2Zgblrcl and physical qlzyLT883368Zvauk, Vishal1.2.840.750739.1.13.43.2. 7.2.899822CdmcmUsgnmwV, IS6873-20-85J59:10:26History and physical noteTXT1.2.840.590197.1.13.43.2 .7.2.324110|2762246691FYZknjxut for patient omqr41455-9Rkrrnsb and physical noteLNInternal MedicineInternal MedicineGreene Memorial Hospital2525 [facility]umont HospitalTjwhOozkhdeLpzqnolPXAI287598577 0KWOK4512-93-33A66:10:261.2.840 .969356.1.72.3.15|1.2.840.08010 0.1.13.43.2.7.2.727879_[id number] Internal Medicine [facility] Procedure Notes Date/Time Note Provider Source 2022-05-31 08:35:51 8vHHn96NQ5kTfu8A08xz vKQ4NJH2nsZ2iPnmH 2s9aeW48GJK0LvftTM8Pv+Ls+L78449-35-96 T08:35:51Procedure(s): I& D OF ABSCESS WITH PACKING [...] no complicationsChristopher JUAN Dunlaplastic and Reconstructive Surgery, ZZO2RgdrwtU.S. Naval HospitalPager: [phone] 2021 8:36 AM 42060-5Mhubkttxx dygnCK868242Rp, Jessie1.2.840.918272.1.13.43.2.7.2.83 8604QcIhbpevMK1065-85-04J09:00:54Proc edgar noteTXT1.2.840.693466.1.13.43.2.7.2.7 08600|8616235037MCOjtcelnpp for patient voai26164-3Okclwziyc noteLNGreene Memorial Hospital2525 [facility] HospitalEixmWcahgoqFydahyvFHVL0543677458DEJL7 692-35-34P69:49:121.2.840.410051.1.72 .3.15|1.2.840.532304.1.13.43.2.7.2.72 7879_[id number] [facility] 2022-05-24 16:29:09 gqmkzR/+3ksnlUX7Gxyd 6bHIbdJdx8sxdf4rl wPONAsGumhY4uA+7x9O6z8AXasB5037-56-98 T16:29:09Procedure(s): I& D OF ABSCESS WITH PACKING [...] 1Dressings: AppliedEstimated Blood Loss: MinimalSpecimens Collected: Culture a2Hsgfeoryxfecm: nonePrimary Proceduralist: MULU Carrilloupervising Physician: JUAN Andersonrocedure [...] nursing staff and sent to the microbiology lab.JUAN Geelastic and Reconstructive Surgery, BKK5Qwbmqr[address] [place], [place] [address]Pager: [phone] 4:30 PM 58037-5Vcmdvfnxg hkwcEE263739YknebtyvrsAdrian Anderson B1.2.840.625854.1.13.43.2.7.2.006227W BobbyoAligiaUMMC Holmes CountyRTV6924-15-12X60:42:01Procedure noteTXT1.2.840.287381.1.13.43.2.7.2.7 86317|7958404054VBIveggrlau for patient obyx25634-7Tkkwfnnum noteLNGreene Memorial Hospital2525 [facility] HospitalEflwSuaxbjyXnemtbyEBGS0196432143SIYQ9 737-12-88Y40:41:491.2.840.848428.1.72 .3.15|1.2.840.072976.1.13.43.2.7.2.72 7879_[id number] [facility] Notes Date/Time Note Provider Source 2023-11-01 14:19:23 XSAlRqP6/9pyCAxwNchU9VJEEihgkDtLx5buNO gkTF5CKnRIAZ2lu3b1MJQRdbSB3441-20-36S6 4:19:23 Chief ComplaintPatient presents withAnxietyRefill RequestPast Medical [...] aware [place] [address]-4Dvjlqckby department VzdpCY3578-46-44B10:20:13Emercornerstone specialty hospital department NoteTXT1.2.840.550430.1.13.104.2.7.2.7 06784|[id number] for patient ckgt71627-4CnclHRTUGCLENNVNrawvwkac C-CDA narrative [id number] M Jordy MARTINI[address]TXTX[address]US GFPXQRTEIFPTVJZQGQTH1075-10-40M54:20:1 31.2.840.218919.1.72.3.15|1.2.840.1143 50.1.13.104.2.7.2.727879_[id number] Kelly Porter Jordy RN [facility] 2023-11-01 13:00:35 uParyPKv/CzpLUB3QW5O6X4fhaX2CA1M1htdrS lzv95gIPLBlgedRJydrFU1tzVv4740-47-36Q9 3:00:35 Patient to ED for anxiety due to doesn't have any of his clonazepam 2mg tabs anymore. He recently lost his grandmother and grandfather and been taking more than he is supposed to. He has been in withdrawal for 5 days. 16760-9Hquopncav department Triage cdzfNX9815-73-84E62:01:57Emercornerstone specialty hospital department Triage noteTXT1.2.840.611570.1.13.104.2.7.2.7 51981|0144028968PLMszdqumtw for patient ifuz06282-6Ecwscfppw department NoteLNNARRATIVEFormatted C-CDA narrative qvte329570453Yegdteojos Hawkins RN[id number] QBQLORTVIIEPAALVXGUR6650-45-24L29:01:5 71.2.840.292669.1.72.3.15|1.2.840.1143 50.1.13.104.2.7.2.727879_[id number] Chucky aHwkins RN [facility] 2023-10-02 12:30:00 7FixwDktNUtDDx3yvHUWkDnkjnX3sx6aM/4AnK k13rUvPp96gNPOSdYEjNGBW0Jl7989-03-59O5 2:30:00 Pt given printed and verbal discharge [...] with steady gait, in no apparent distress. 87012-4Bxkcammzw department TtrlJV4782-71-81V16:30:56Emergency department NoteTXT1.2.840.109120.1.13.104.2.7.2.7 62238|[id number] for patient stda61974-0LuuoSWHFFPLHHONGztrtylur C-CDA narrative [id number] Ruffin RN[address] Xt[id number] AAJCTJTEPLKITIQPNQEN2778-43-75N36:30:5 61.2.840.281832.1.72.3.15|1.2.840.1143 50.1.13.104.2.7.2.727879_[id number] Ayah Ruffin RN [facility] 2023-10-02 11:56:31 9YzZNbvLeViwXa4KClKb/7D7jNYMd2C50BLax2 TNg7LuCRmr8R+3xbcYVfxANYT/0299-58-08L9 1:56:31 Patient states: "I came here yesterday and checked in but I left. I'm detoxing off klonopin. I wanted to know if yall can refill it. My doctor doesn't do klonopin anymore." 61411-6Anxdjaejo department Triage mleaVI7056-67-62B46:57:33[facility] Triage noteTXT1.2.840.783574.1.13.104.2.7.2.7 46417|[id number] for patient xyyb54105-6Qvxfjnnid department NoteLNNARRATIVEFormatted C-CDA narrative [id number] M Cruz RN[address] PtbwXoogdpfpcKhijhqrxgJRTD3003426198QH QQXPQPHHSPOGDLKXDLSO4564-29-14U42:57:3 31.2.840.888830.1.72.3.15|1.2.840.1143 50.1.13.104.2.7.2.727879_[id number] Elisabeth Soto RN [facility] 2023-10-02 11:43:00 Yba3BVmZr7fEMwKCQ3KyIFpPh90Gn7yOYnbG8u Xr/05E0cz2DCexMhMkD5LOu8hE5933-91-30U5 1:43:00 [facility] Emergency Department NotePatient Name: Tej Reyna of : 1985 38 year old maleTreatment Room: [facility] Record Number: [id number] Care Physician: Rene Smith (Inactive)Patient Escorted by: [...] Complaint:Chief ComplaintPatient presents withOtherMedication refillHistory of Present Illness:AWR03bt M with anxiety and prescribed klonopin 3mg presents today needing refill. He states he is not doing good, feels his heart racing and keeps breaking out into sweats. He states he is trying to get ahold of [facility] and anybody else who can see him. [...] 1 mgFirst Provider Eval:ED EventsDate/Time Event User Autuyjzx40/01/24 1207 Medical Screening Begins DEB BURGOS MD [...] on fileFollow-up:Electronically signed by:Deb Burgos DO10/02/23 1220 15279-4Eawkupkdj Emergency department SherRA6313-67-92C11:20:50Physician Emergency department NoteTXT1.2.840.005713.1.13.104.2.7.2.7 80312|[id number] for patient cokx28166-0Yfbfccrmb department NoteLNNARRATIVEFormatted C-CDA narrative textUT38 [address] [id number] ZIDOEDJXMIRXJOFJPVGP4928-36-89Z29:20:5 01.2.840.200295.1.72.3.15|1.2.840.1143 50.1.13.104.2.7.2.727879_[id number] [facility] 2023-09-28 19:25:10 pEOZLLMh+L9zfPFJ61J63ii2CVOzZXwelqfEMg 6B68TJIJ0hniuutxBXI8NagInU2306-50-80Z9 9:25:10 Pt unable to be located. Never was seen by provider. 28801-7Gqqmskmpr department YjzzSP0714-48-89V37:25:28[facility] department NoteTXT1.2.840.714984.1.13.104.2.7.2.7 92677|[id number] for patient zrsf59181-7HuqsOQVRBBAQTEBYlhicewme C-CDA narrative tybg418127619Wtfqye D Roman RNUT[id number] QDXQETWSXIYQPAPJZEQI1714-97-71Y96:25:2 81.2.840.485154.1.72.3.15|1.2.840.1143 50.1.13.104.2.7.2.727879_[id number] Medina Presley RN [facility] 2023-09-28 18:17:15 NBdUC9Y0HOvCpLVO5FZCGlXeAqDuXtZjqWXqNe 4Ad7HSLluA2aNu3FVCseVFMYCm1115-22-79D7 8:17:15 Pt's states his doctor quit prescribing [...] something and he won't prescribe me any." 51232-6Ycrmesopu department Triage ejqpDF6727-83-18I01:19:10[facility] Triage noteTXT1.2.840.184525.1.13.104.2.7.2.7 39319|1380319095SPUqwcvevrs for patient nyiu00949-1Ladxvmunp department NoteLNNARRATIVEFormatted C-CDA narrative [id number] Fief RN[address]QwemLemxqbsrwQvapnciqsQCZY9195156589LE KONIFSERTQAJDDUZULHD6100-99-94Z12:19:1 01.2.840.901878.1.72.3.15|1.2.840.1143 50.1.13.104.2.7.2.727879_[id number] Liset Blancas RN [facility] 2023-09-28 18:09:00 kUxhRjbYdK9lsrANG5/VtIUTycwTDS+dGBG9IJ CIWrK4V+A0KFEMZ0r6zAKNzVha0863-28-07D7 8:09:00 Images from the original note were not included.Patient never seen by Ellen patel was [facility]:Dyana Jorgensen MD09/28/231922SchDyana silva MD09/28/231922 57690-4Fbkiltwlo Emergency department VrueSK4698-36-10O64:23:40Physician Emergency department NoteTXT1.2.840.436274.1.13.104.2.7.2.7 11259|0384420926VJZfvenfkua for patient zzsg96273-9Huyxrbnit department NoteLNNARRATIVEFormatted C-CDA narrative textUT[address] PvgfWfycfmtxhSkrycbknfFNQD8149145612JL IOJZDJMQWMPYRBBEWFGF4133-84-21R56:23:4 01.2.840.841956.1.72.3.15|1.2.840.1143 50.1.13.104.2.7.2.727879_[id number] [facility] 2022-06-03 18:30:00 738f2yPATc/BVLRattK0b1rPU9uC7filPlJv4r Xm+ehFXvaEjXyobtx+o3T09rCx2974-99-01G4 8:30:00 Gave pt appointments, provided wound care, paper prescriptions were delivered via doctor bedside, taught about s/s of infection, removed IV, pt left with belongings via transport, no distress noted.Gave pt 3 weeks of wound care supplies.Pt left via [employer]ft. pack worker supervisor provided instructions on how to request a Lyft.No needs at this time. [id number] Note1.2.840.445417.1.13.43.2.7.4.44779 0.81390434-14-85Q99:18:43Flowsheet NoteTXT1.2.840.137056.1.13.43.2.7.2.72 7879|6247111102DKOcpyinryh for patient zejm73907-4XuznCO883143957XbdvqpzTemple [facility]2525 [facility] HospitalQvqzKklfydiMksjkqgQIZB5573433338FFIM31 23-06-02T19:18:431.2.840.614839.1.72.3 .15|1.2.840.571753.1.13.43.2.7.2.37546 9_[id number] [facility] 2022-06-03 18:30:00 9SAzmp0mYTZnIl/4a2wsap5w+Hl9v+PNAXSJwW 48NOEqCBbO6PTmYTo7hswOB32P8933-91-54M4 8:30:00 Problem: Hospital Acquired Venous Thromboembolism (VTE)Goal: [...] deep vein thrombosis or pressure ulcers.Outcome: Resolved 2367257Pfsx of Care1.2.840.613180.1.13.43.2.7.4.34640 0.11720475-18-22B82:47:16Plan of CareTXT1.2.840.739359.1.13.43.2.7.2.72 7879|3071597141JVVkrwwtioq for patient shxe82648-4RshoSDNJGGhkaab Health Kmylhc3344 Natalie SheltonVnvbZwekqapEkmyvsiRZYG1950162501DLTZ68 23-06-02T18:47:161.2.840.041807.1.72.3 .15|1.2.840.136003.1.13.43.2.7.2.24409 9_[id number] [facility] 2022-06-03 17:38:37 4344FNYsQa7b8yI47RjIp9MruT37CWXE+fEaUa 0miP++WXkB2r3NgjfIAr9sISpY1040-55-33T6 7:38:37 06/03/22 1737 Intervention Financial Needs Other (Comment)([facility] S[facility]F-[facility]/SELF-PAY SCREENED) Referral Data Referral Reason Wound [...] to provide patient's with wound care supplies.Glory Tran BSN ACM-RNEC Nurse Case ManagerSelect [facility]# [phone] Note1.2.840.858137.1.13.43.2.7.4.41166 0.89537654-77-02X16:49:49Flowsheet NoteTXT1.2.840.911282.1.13.43.2.7.2.72 7879|9758040155EOZgrmflwfa for patient mmty71407-4XjpkJI978313452Godjupatz D Real RNGreene [facility] Hospital2525 [facility] HospitalThvyXyvddpiYufpzepNZAE9160459192GIGN59 23-06-02T17:49:491.2.840.206810.1.72.3 .15|1.2.840.550768.1.13.43.2.7.2.08661 9_[id number] Glory Tran [facility] 2022-06-03 04:38:15 7V6KHWtGmKrmfGkePVwlWX8c2t5i4U5in73feJ jpvh7gpOTAGZNhpfb95tAw8/LL6904-75-68W8 4:38:15 Problem: Hospital Acquired Venous Thromboembolism (VTE)Goal: [...] to perform desired activities.Outcome: Met This Shift 0306594Hcny of Care1.2.840.061379.1.13.43.2.7.4.07896 0.52011495-15-53F64:38:19Plan of CareTXT1.2.840.462687.1.13.43.2.7.2.72 7879|5578028712PFNctgenynv for patient wlpz66547-4MrahXR297493311Yjisoym [facility]2525 [facility] HospitalVohkNlqtdfbThvqfuqEAJG9605616839LFSQ63 23-06-02T04:38:191.2.840.831763.1.72.3 .15|1.2.840.409673.1.13.43.2.7.2.83536 9_[id number] [facility] 2022-06-02 19:47:16 OJtfsbUkYSsBJyoOAvoTqmwz3F7NH33sWDIbgl ylRYNXJaJwAxOzw46ZwRlwv+600297-71-21I4 9:47:16 Problem: Hospital Acquired Venous Thromboembolism (VTE)Goal: [...] thrombosis or pressure ulcers.Outcome: Met This Shift 8384673Expu of Care1.2.840.600126.1.13.43.2.7.4.47986 0.88357768-11-83I36:47:18Plan of CareTXT1.2.840.162808.1.13.43.2.7.2.72 7879|0979339420QYQasiiufhn for patient vrtj23311-6VrnhEYEXSRwbiiu Health Wkuplo2180 [facility] HospitalWjldMhebwpvFzwiaknRLIK0670894096HIJT32 23-06-01T19:47:181.2.840.480031.1.72.3 .15|1.2.840.576268.1.13.43.2.7.2.64486 9_[id number] [facility] 2022-06-02 04:02:37 WXXejxqVWfxvrfTOs2nEhoTwuzqGNJKPsSSKrv xP23aq5pHQb9q/YfNO9ZKBXYIX0585-15-68M6 4:02:37 Problem: Hospital Acquired Venous Thromboembolism (VTE)Goal: [...] to perform desired activities.Outcome: Met This Shift 0777682Fznk of Care1.2.840.778224.1.13.43.2.7.4.75841 0.73094629-14-28Z87:02:40Plan of CareTXT1.2.840.568960.1.13.43.2.7.2.72 7879|8081196054VJJnwualbco for patient kwnq26486-8QmpeEYWGWTdjyntNYU [facility] System2525 [facility] HospitalAcucRgrcnvpYruuqemXDFP2270202997BGCY40 23-06-01T04:02:401.2.840.523626.1.72.3 .15|1.2.840.796140.1.13.43.2.7.2.01945 9_[id number] [facility] 2022-06-01 16:07:00 HsEjevM0y0h5XVwIby1tMgtkiZhoPh2xveS5KS l6afsuaneV6L9KG91MetKfD/zX4054-12-42G1 6:07:00 Problem: Hospital Acquired Venous Thromboembolism (VTE)Goal: [...] Be Safe And ComfortableOutcome: Met This Shift 9381456Awrf of Care1.2.840.287019.1.13.43.2.7.4.68792 0.71366977-69-41E01:07:12Plan of CareTXT1.2.840.578019.1.13.43.2.7.2.72 7879|5772142156HHGsqomoznp for patient xtze77643-8GemnEJRJQXrolsmNYU Langone Health System2525 [facility] HospitalBzznWyixktyXugsvzbJUDQ2165827715EAVU79 23-05-31T16:07:121.2.840.055482.1.72.3 .15|1.2.840.969932.1.13.43.2.7.2.20137 9_[id number] [facility] 2022-06-01 16:04:25 C1Pi1vZbnyV6fXsia+VDPv+x5VJE+qRGw5K/GL GetBsWERsO3bsQUy7g9kqEQa0S3107-11-55O2 6:04:25 06/01/22 1602 Intervention Coordination of Care Multidisciplinary team(S/p I+D of 4x abscesses on 05/25 and 05/31.infection) Disease Management Meets criteria for Inpatient Medical Necessity Screening Concurrent review([id number]) Oumou Villa MSN, BSN, [facility]-RNClinical Nurse Case [phone] 3558401Djqrcuqig Note1.2.840.227089.1.13.43.2.7.4.93255 0.64805169-64-02N61:04:51Flowsheet NoteTXT1.2.840.810277.1.13.43.2.7.2.72 7879|7161476877ICYodrjzbzj for patient hmbo12505-4BureES849066947Hvscsft Okolie RNGreene [facility] Hospital[address] [place], [place] [address]PosrGbhbnkpSxrjvlsGANS0845558637ZDPD95 23-05-31T16:04:511.2.840.171997.1.72.3 .15|1.2.840.234956.1.13.43.2.7.2.80718 9_[id number] Oumou Villa RN [facility] 2022-06-01 05:30:00 borlOqWNzMMbAc25pNLnmQ2VSjIFe5KB7G5wgp WKgyEcsCMADUINEl8sxW5k9es02654-54-99L6 5:30:00 Problem: Falls / InjuryGoal: Absence of [...] new arrhythmias (if applicable).Outcome: Met This Shift 3314385Padw of Care1.2.840.341675.1.13.43.2.7.4.71126 0.16993456-03-34T96:50:41Plan of CareTXT1.2.840.506797.1.13.43.2.7.2.72 7879|5954512321PEJlcvrykma for patient uadg79876-0QmvsVK352353001Yomzah Osondu RN[address] StreetTXTX7705477054USUS20 23-05-31T07:50:411.2.840.798888.1.72.3 .15|1.2.840.643877.1.13.43.2.7.2.08901 9_[id number] Jessika Connolly RN [facility] 2022-05-31 16:17:37 s9XJCTgoDBNUq9Zz/Mj8EpP4p78GFlKBiROpiJ 5sV2hNk+NzDacWuC5S06vCobDm0539-09-18S2 6:17:37 Problem: Hospital Acquired Venous Thromboembolism (VTE)Goal: [...] swelling, drainage, and pain.Outcome: Met This Shift 3146242Bume of Care1.2.840.418213.1.13.43.2.7.4.71732 0.87001847-04-45Y73:17:53Plan of CareTXT1.2.840.899446.1.13.43.2.7.2.72 7879|6544428233TBVajesdavt for patient bidl60680-4EtmkECLEYLsibcwNYU Langone Health System2525 [facility] HospitalUaypTudxxgnHkikfssEUXB9977751184KLMB99 23-05-30T16:17:531.2.840.893028.1.72.3 .15|1.2.840.679919.1.13.43.2.7.2.66508 9_[id number] [facility] 2022-05-31 10:15:18 +KPVesQkQTJESschCrt5OqqP/0Gz8uuqoBsCOo AIcyR3zi0flZ4120IgNWne3n3g4595-98-13T5 0:15:18 Nutrition Screen by Licensed Optician, RegisteredNutrition Screen re: LOS x 7 days.Tej [...] and nutrition related labsAvailable/Consult PRNSignature:Kelly Boo DTR 418848Lcufk: [phone] see Dietitian Note(s) in Plan of Care. 6857209Cjbx of Care1.2.840.258168.1.13.43.2.7.4.95543 0.44065785-28-25O26:15:12Plan of CareTXT1.2.840.416383.1.13.43.2.7.2.72 7879|4593575576CWKfxshbtfs for patient klop22925-8XsvtHJQxosreaquDpdlehezpJWN [facility] Tjscqo2512 [facility] HospitalBablNcffaeoWtttarvACTF2009220610DHPW93 23-05-30T12:15:121.2.840.658732.1.72.3 .15|1.2.840.929726.1.13.43.2.7.2.42005 9_[id number] Nutrition [facility] 2022-05-31 06:47:50 fN8Ny3z3oXNo4W6dNC1GUAeZxlQwxyrPLho1S/ hyGfqzYaCxokLKjeVSl5HOkZ5P2653-42-00T0 6:47:50 Problem: Hospital Acquired Venous Thromboembolism (VTE)Goal: [...] to perform desired activities.Outcome: Met This Shift 5430000Vmjf of Care1.2.840.023487.1.13.43.2.7.4.35551 0.77553460-90-73G73:47:56Plan of CareTXT1.2.840.604661.1.13.43.2.7.2.72 7879|6923833346BERwjqkdork for patient snom80990-0WgbsWN235636927Tmydo Anyamene RNGreene [facility] Hospital[address] [place], [place] [address]JyfwGuxnxarQosakrdVZXX8634683158VEVS79 23-05-30T06:47:561.2.840.489904.1.72.3 .15|1.2.840.236863.1.13.43.2.7.2.90054 9_[id number] Charline Ren RN [facility] 2022-05-30 16:05:44 NhHqYQh0nluo9tT+De3qNkCtYg74Tzee3/0K3J tSy2EL9TJo/lq9/kt/krrAYDuz3004-09-64R3 6:05:44 Initial visit, pt and one family member present, encouragement and spiritual support provided which resulted in hope being expressed. 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 Assessment (Emotional Needs) Emotional Needs Grief/mourning Glass Calibrator Assessment (Spiritual Needs) Patient Expressing Grief/mourning;Helplessness Patient Exploring Brigitte and values Glass Calibrator Interventions Emotional Needs Non-anxious, non-judgmental presence provided;Emotions explored;Emotions validated;Hope encouraged;Reflective listening provided Spiritual Needs Grief/mourning explored, encouraged and/or enabled;Brigitte and or beliefs explored and/or validated;Pastoral counseling provided Chaplain Haywoode3-2480 1759843Wqgwsgkad Note1.2.840.395636.1.13.43.2.7.4.57686 0.77659323-69-84H10:06:41Flowsheet NoteTXT1.2.840.468154.1.13.43.2.7.2.72 7879|9267255089JBRkgbejorv for patient tpgj29102-3IvopBY32801087Wrsqxpz Joy K[facility]tE[facility]2525 [facility] HospitalMicdQivcscyKoslqhbBCAA4167476467YRXI58 23-05-29T16:06:411.2.840.092307.1.72.3 .15|1.2.840.643378.1.13.43.2.7.2.24982 9_[id number] Shawna Chandler [facility] 2022-05-30 15:46:11 Asif/wFVSu6oWPX2rPMjrigfnZjo2k3TfVuWB6b Ou3qUqgZc0FdSxuzuxX6JLlwcQ8263-17-40N5 5:46:11 Problem: Hospital Acquired Venous Thromboembolism (VTE)Goal: [...] to perform desired activities.Outcome: Met This Shift 3912346Pxoz of Care1.2.840.683874.1.13.43.2.7.4.32035 0.28200384-49-34O89:46:15Plan of CareTXT1.2.840.818436.1.13.43.2.7.2.72 7879|4407705136VVHlniirgsl for patient tzxb90996-1OzmvQC072957319KcmcnanChillicothe VA Medical Center2525 [facility] HospitalAoncDhaojxcTfohkjeURPP3435571841XSPJ62 23-05-29T15:46:151.2.840.946343.1.72.3 .15|1.2.840.980810.1.13.43.2.7.2.63506 9_[id number] [facility] 2022-05-30 05:30:02 Bearek/sUKn6eS884uU9qii15Um12sRWpr1eDIrj eCyQnFhxNipMPkQRFOyO+SddU63651-68-71T6 5:30:02 Problem: Hospital Acquired Venous Thromboembolism (VTE)Goal: [...] to perform desired activities.Outcome: Met This Shift 9432722Wbyw of Care1.2.840.813732.1.13.43.2.7.4.40088 0.18083821-41-77V98:30:08Plan of CareTXT1.2.840.151720.1.13.43.2.7.2.72 7879|4975202921LIUmqallegb for patient fnvz78615-6LwyvSXFRQCtyiufNYU Langone Health System2525 [facility] HospitalVagxHcrwtrnAubltahYNDJ9410993799PAOK18 23-05-29T05:30:081.2.840.001735.1.72.3 .15|1.2.840.403826.1.13.43.2.7.2.78166 9_[id number] [facility] 2022-05-29 18:34:41 HYmmlkAjXEwocB/gCspHgx3YAys/kfYYFAA0MU u7kuty3wEpAiVzjfuCkWvCF+XP2919-53-71J6 8:34:41 Problem: Hospital Acquired Venous Thromboembolism (VTE)Goal: [...] to perform desired activities.Outcome: Met This Shift 6518401Molc of Care1.2.840.597500.1.13.43.2.7.4.22001 0.26255992-99-31A64:34:46Plan of CareTXT1.2.840.856085.1.13.43.2.7.2.72 7879|2557785130YCIypluvhju for patient boks01900-9CmuaUX17085865Diphcgbn Ngozi Osita RN[address] StreetTXTX[address]USUS20 23-05-288:34:461.2.840.564386.1.72.3 .15|1.2.840.809050.1.13.43.2.7.2.11159 9_[id number] Octavia Agosto RN [facility] 2022-05-29 05:08:04 WDoYapDt2/nKoavIhoeU14qIFbKyrQKpbq9/51 UjabV3+wuS1+ZB2tTfI4xFQdvB9697-69-39Y3 5:08:04 Problem: Hospital Acquired Venous Thromboembolism (VTE)Goal: [...] wounds, or positive cultures.Outcome: Met This Shift 1415732Asgo of Care1.2.840.588127.1.13.43.2.7.4.91846 0.14710829-23-55R63:08:11Plan of CareTXT1.2.840.792923.1.13.43.2.7.2.72 7879|0351601377ATNbcoyfqjk for patient zeuz99260-3JxkhOW00688059Zyigv [facility]2525 Natalie KellyXkuhWcvtmjlHtiioklUVUP2439456327AGFM30 23-05-28T05:08:111.2.840.189340.1.72.3 .15|1.2.840.542476.1.13.43.2.7.2.07255 9_[id number] Tyron Baby [facility] 2022-05-28 18:31:40 pnF9gyo5PirZtxp0wX8JMPaO/C3V6Xbdxy5rzi c3/oUn95Sd/+SJ/msLLa4aPxOj5865-13-36Z6 8:31:40 Problem: Hospital Acquired Venous Thromboembolism (VTE)Goal: [...] by Octavia Agosto RNOutcome: Met This Shift 4707946Vxot of Care1.2.840.806024.1.13.43.2.7.4.49352 0.60869670-86-30F10:31:43Plan of CareTXT1.2.840.175351.1.13.43.2.7.2.72 7879|1548458812CXOzyuiadyo for patient odsw43154-5DxouKPRMHXikndk Health Riqttr[address] [place], [place] [address]RjckPxoiaypMcwltwhLSXK9584126193JFUK15 23-05-278:31:431.2.840.332149.1.72.3 .15|1.2.840.926404.1.13.43.2.7.2.35204 9_[id number] [facility] 2022-05-28 16:41:40 wExyAbhi/SY7/2dltXjNn5x2KkyxC0+DbGuA9M UE7fc2scWqc+S0B3MtED+yZIIv9241-25-88W9 6:41:40 Problem: Hospital Acquired Venous Thromboembolism (VTE)Goal: [...] to perform desired activities.Outcome: Met This Shift 3316908Xqgu of Care1.2.840.363052.1.13.43.2.7.4.71872 0.75402297-84-07J31:41:44Plan of CareTXT1.2.840.263381.1.13.43.2.7.2.72 7879|9288909519ZABldoaoczj for patient axcc95497-9AmgeMZQTEPouqwv Health Ufqsyr8079 [facility] HospitalRbbzQnjwqdvLhtineoIKWW8172759630DBAS98 23-05-27T16:41:441.2.840.466915.1.72.3 .15|1.2.840.573153.1.13.43.2.7.2.70708 9_[id number] [facility] 2022-05-28 05:28:45 ue1o/dla76cI8xYloA3JuGz70J6CXmzcrKCQyn d9jbWlA8f3vVdSAl8ExOwf98XH6288-37-38K9 5:28:45 Problem: Hospital Acquired Venous Thromboembolism (VTE)Goal: [...] wounds, or positive cultures.Outcome: Met This Shift 2845698Xsvr of Care1.2.840.817380.1.13.43.2.7.4.64631 0.97112707-68-11G06:28:51Plan of CareTXT1.2.840.486594.1.13.43.2.7.2.72 7879|1467328005DNZsplmkqbo for patient bsqn15004-2PcptJMBWFIwcwjdNYU Lang[facility] System2525 [facility] HospitalPdxmIzmlzvuJypgrqxEZGA0849328877OTAH91 23-05-27T05:28:511.2.840.926247.1.72.3 .15|1.2.840.308824.1.13.43.2.7.2.12637 9_[id number] [facility] 2022-05-27 14:32:23 5/2Nwh0pgrfRtTnwylA6baTn3LaeYiK44FdW6D lsdhBBHo7KRuoV0acLNrRMW7KZ2367-12-43A6 4:32:23 Problem: Falls / InjuryGoal: Absence of [...] to perform desired activities.Outcome: Met This Shift 3127540Vejt of Care1.2.840.762013.1.13.43.2.7.4.02318 0.42931684-29-20O09:32:30Plan of CareTXT1.2.840.755683.1.13.43.2.7.2.72 7879|[id number] for patient [id number] Hall [facility] [id number] 23-05-26T14:32:301.2.840.017581.1.72.3 .15|1.2.840.931563.1.13.43.2.7.2.00740 [id number] [facility] 2022-05-27 05:52:57 8vxM+BSX2OzzN1Xk8ylAAF6OHYcITSnPaP9h+x BNKb7u7G+3r6XPMJyqmglZN4pR4942-49-48G0 5:52:57 Problem: Hospital Acquired Venous Thromboembolism (VTE)Goal: [...] wounds, or positive cultures.Outcome: Met This Shift [id number] of Care1.2.840.812078.1.13.43.2.7.4.06991 0.03307006-48-12H27:53:04Plan of CareTXT1.2.840.715132.1.13.43.2.7.2.72 7879|[id number] for patient vdvg28544-4XlwfQPGNGKacfrz Health Aufatd8703 [facility] Hospit[id number] 23-05-26T05:53:041.2.840.642580.1.72.3 .15|1.2.840.020437.1.13.43.2.7.2.71880 [id number] [facility] [place] 2022-05-26 15:14:40 tZcsjQrvNQ2gOe7ypzBsdjUllENo5jvH9GMWJ0 Q9BLrPZN8cua+dRjEOQnOnR6kr0526-58-14U8 5:14:40 Problem: Hospital Acquired Venous Thromboembolism (VTE)Goal: [...] done this shift. Patient verbalized understanding. Appropriate machine i cutter used. Problem: Falls / InjuryGoal: Absence of [...] Subjective And Objective Responses.Outcome: Met This Shift [id number] of Care1.2.840.491106.1.13.43.2.7.4.95115 0.38145962-50-90Z08:14:43Plan of CareTXT1.2.840.406245.1.13.43.2.7.2.72 7879|[id number] for patient bcss29297-0BnsfXZ380877011Zexjx M Bhakta RN[address] Paul [id number] 23-05-25T15:14:431.2.840.885597.1.72.3 .15|1.2.840.532846.1.13.43.2.7.2.85934 9_[id number] No Montoya RN [facility] [place] 2022-05-26 11:00:00 IeP15ivyGHaH5Ks9oSKmvVuGTxzT8w6dyGbMFU im6YVJV1A4YuuayLkSgbW9wLph4159-21-25R2 1:00:00 05/26/22 1100 Intervention Education on freedom to choose and issued vendor list Yes Transportation Referrals Other Transportation medical necessity form N/A Current Support System Immediate family Coordination of Care Multidisciplinary team;Outside facilities Per consult to assist with drug treatment placement, SW connected with Pt to discuss options.SW had contacted both [facility] [phone] and [facility] [phone] per Pt's request and was informed there were no beds available. [facility] only has available beds in locations outside [place] like [facility] and [place]. SW suggested other treatment centers including [facility] [facility] [phone] who stated they have available beds and Pt is free to come to their facility in [place], ask for Layo with Intake Department. SW also provided [facility] as an option. Pt declined both options, stated he will talk with his family and may have to choose one of the [facility] locations outside of [place].Pt will inform SW when decision is reached.Artem Cohn LMSWSocianaya Work Postmaster Relief [facility] HospitalOffice: [id number]: [phone] Note1.2.840.836534.1.13.43.2.7.4.22173 0.15805848-30-55U79:32:49Flowsheet NoteTXT1.2.840.230086.1.13.43.2.7.2.72 7879|[id number] for patient [id number]-[facility] [place] Natalie [id number] 23-05-25T11:32:491.2.840.161142.1.72.3 .15|1.2.840.321590.1.13.43.2.7.2.79685 9_[id number] [facility] 2022-05-25 14:25:36 PkSsC95hdvJ3s1DhlQTI0aYjBnwFBue4mIm0ni qk2XqLHd6vPzy8MklPxA4bCXfk8044-39-28U8 4:25:36 Problem: Hospital Acquired Venous Thromboembolism (VTE)Goal: [...] Subjective And Objective Responses.Outcome: Met This Shift [id number] of Care1.2.840.013665.1.13.43.2.7.4.17153 0.96727188-85-44Y17:25:49Plan of CareTXT1.2.840.303352.1.13.43.2.7.2.72 7879|[id number] for patient pcqx17101-8AdvzFH142833503Tzlg [id number] 23-05-24T14:25:491.2.840.628125.1.72.3 .15|1.2.840.161501.1.13.43.2.7.2.91936 9_[id number] [facility] 2022-05-25 10:28:37 ULiCrPsH+jzxk8dA/6Ickla6nhSEbnVutKkFXF fr8kN1AJb+5vsdmeBtCnYCnlUI3746-60-44Q0 0:28:37 THIS IS A STUDENT NOTEInfectious Diseases Consult NoteDate of Consult: 05/25/22 Reason for Consult: NTM abscessAdmission Date: 05/23/2022 Admission Diagnosis: CellulitisAssessment:Tej Blanco Guadalupe is a 37y.o. year old male [...] [employer] - Plates have been sent to [facility] for identification and sensitivitiesRecommendations: - After careful consideration of the literature we recommend the following to cover for M chelonae, M fortuitum, and M abscessus: - Amikacin (per pharmacist dosing) - Tigecycline (100mg load followed by 50 BID, can step down to 50 daily if poorly tolerated) - Azithromycin (500 mg daily)- We will jesu antibiotics once ID is received from [facility]- Follow all cultures to completionThank you for this interesting consult. We will continue to followI discussed the case with infectious diseases attending, Dr. Obando.Venu RamosMedical Student, [address] History Obtained From: patient, electronic medical [...] homeless. He has not travelled outside of [place] recently and does not have any sick [...] 70 61 68 Resp: 17 18 17 Temp: 97.5 F (36.4 C) 97.6 F [...] intact.Data: All labs, images, and data reviewed. [id number] Note1.2.840.924145.1.13.43.2.7.4.63232 0.73526549-23-23B98:34:01Student NoteTXT1.2.840.325055.1.13.43.2.7.2.72 7879|[id number] for patient cfmh15269-9FtcfINDxxxqtwo MedicineTempe St. Luke'S Hospitalnal [facility]2525 [facility] HospitalKzly[id number] 23-05-24T17:34:011.2.840.578378.1.72.3 .15|1.2.840.630789.1.13.43.2.7.2.78494 [id number] Internal Medicine [facility] 2022-05-25 03:18:34 CXYMdNm/hvqNpjkNGG5iP9ZnpTHJGDpJDKo1uz 4XApDpA59HjtjHuAQNFpqHsNrQ5611-50-39B3 3:18:34 Problem: Hospital Acquired Venous Thromboembolism (VTE)Goal: [...] Subjective And Objective Responses.Outcome: Met This Shift 3543006Shfq of Care1.2.840.284020.1.13.43.2.7.4.25637 0.40167095-89-28S71:18:38Plan of CareTXT1.2.840.492367.1.13.43.2.7.2.72 7879|[id number] for patient uwjv48209-3YmljVCCNRHhovekNYU [facility]2525 [facility] HospitalTayiJlejmbkRysqljyXVYD8465877885KWZH88 23-05-24T03:18:381.2.840.188354.1.72.3 .15|1.2.840.500927.1.13.43.2.7.2.76145 [id number] [facility] 2022-05-24 18:27:10 w7v8e/IKsUJ7Ys3zbroNM1ylDvLdFgYVCAEXCV V9DL2vDxxFt3swlNxEgz39sUUb3342-84-18M2 8:27:10 Problem: Hospital Acquired Venous Thromboembolism (VTE)Goal: [...] Subjective And Objective Responses.Outcome: Met This Shift 2907644Vquh of Care1.2.840.250359.1.13.43.2.7.4.55751 0.40332295-40-91A74:27:20Plan of CareTXT1.2.840.488506.1.13.43.2.7.2.72 7879|1312129994ABAgyxwawnb for patient uicd92919-7WinbYNFDSSuxndu Health Ojkcya7235 [facility] HospitalZaxlRljuuitVgczpqfJSJO5336979206NLMT52 23-05-238:27:201.2.840.755196.1.72.3 .15|1.2.840.030823.1.13.43.2.7.2.15752 9_[id number] [facility] 2022-05-24 11:04:15 fCKKaMMY1HywxXvOgrwn1EEzcanerb7H+zlGDP yoRPuH9F20lxWm8ttYTYpp0c/j4908-32-02Y5 1:04:15 Case management note:Chart reviewed for medical necessity and hospitalization 05/24/22 1103 Intervention Disease Management Meets criteria for Inpatient Medical Necessity Screening Concurrent review([id number]) Patient meet inpatient criteriaPlease place order Ad[facility] Samanta diggs MSN, ACM-RNClinical Nurse Case [facility] | [address] | [place], [place] [address]F: [phone] |F: [phone]| [id number] Note1.2.840.981797.1.13.43.2.7.4.30083 0.76853291-76-60U94:04:38Flowsheet NoteTXT1.2.840.909544.1.13.43.2.7.2.72 7879|[id number] for patient xoyr33975-1LbszAO86125839Gibm S Jacob RNGreene [facility]2525 [facility] HospitalYnkfCkhsteiSzkdywmNTLN5727111378PKZZ09 23-05-23T11:04:381.2.840.410633.1.72.3 .15|1.2.840.079521.1.13.43.2.7.2.51160 9_[id number] Samanta Hassan RN [facility] 2022-05-24 08:50:00 tvSadxbDUAfYoupy3vP3qKz/+nj3+DCF+DQfzX 8zdAHu+70QEurYC3WLv4r/OrWA2460-03-00G6 8:50:00 05/24/22 0850 Charting Type Charting Type Initial Patient Status Current Status Observation New Status Recommendation Observation Patient Information Source of Information Patient;Other (Comment) County [place] Residence [place] Immigration Status: [place] Citizen [...] Family Information Patient Marital Status Single Primary Sole Rounding Machine Operator Lydia Guadalupe (father) [phone] Income Information Income Source Unemployed Financial Resources Funding Source/Insurance Status Self-Pay Transportation Transportation Needs Private/family transportation Legal Information Legal Concerns No unmet needs Name, surrogate decision maker Lydia Guadalupe (father) [phone] Decision maker contact # Lydia Guadalupe (father) [phone] Mental Health Mental Health Concerns No past / current concerns Acuity Level Medical Acuity Category 3 Group Home Supervisor Acuity Mild Strengths and Limitations Patient Strengths [...] residing with father at the address on [address] [place] [address], however, will be discharging to sister's upon discharge from the hospital. Pt did not remember the address of sister's house.Family will provide discharge transportation.Healthcare Agent: Lydia Guadalupe (father) [phone].Hayden Gurrola Work Postmaster Relief [facility] HospitalOffice: [id number]: [phone] Note1.2.840.598936.1.13.43.2.7.4.23318 0.44412074-75-14L50:59:01Flowsheet NoteTXT1.2.840.334456.1.13.43.2.7.2.72 7879|[id number] for patient ybpv42786-7YzfiDGYHGAhilawNYU Lang[facility] Health System2525 [facility] HospitalHznaZaedekaJhiuztoPJJH9614002145EXWG18 23-05-23T10:59:011.2.840.297223.1.72.3 .15|1.2.840.450845.1.13.43.2.7.2.44339 9_[id number] [facility] 2022-05-24 06:45:53 W+vsL+Gxaz4Fqgow6MXRaUu4hRcdUpFRiZeq4g YFHWcOx0EO8r5emPIbiL+RhtE88198-49-05K8 6:45:53 Problem: Falls / InjuryGoal: Absence of [...] wounds, or positive cultures.Outcome: Met This Shift 5167590Icxu of Care1.2.840.094304.1.13.43.2.7.4.68322 0.59510281-51-90X81:46:15Plan of CareTXT1.2.840.152526.1.13.43.2.7.2.72 7879|4611012563HSLvdztdijj for patient siww42526-7QijnIYVSXXxskym38 [address] StreetTXTX7705477054USUS20 23-05-2306:46:151.2.840.353320.1.72.3 .15|1.2.840.906596.1.13.43.2.7.2.81124 9_[id number] [facility] 2022-05-24 04:17:46 hNIqj/dX/FgcLIoHDWWPDcqEpY9tOOFg6JOE0w EpC4EYMLVBDT5hCFI2J22gbDJR4721-46-59V5 4:17:46 Patient transferred to . Patient refused wheelchair for transfer. Report given to Hanh MARTINI. Patient AAOx4. Ambulates independently. Respirations clear and unlabored. Skin appropriate to ethnicity. Skin intact with abscesses to the right and left forearms. 52037-1Fqzpbuniq department EmblMN0139-95-13W74:19:07[facility] department NoteTXT1.2.840.742596.1.13.43.2.7.2.72 7879|0267062598RMPnuibnqtz for patient tnri52700-8Zrpawoedj department TnfgOK683913030Rqxq[address]TXTX7705477054USUS20 23-05-2304:19:071.2.840.526785.1.72.3 .15|1.2.840.366752.1.13.43.2.7.2.35262 9_[id number] Lupillo Jo [facility] 2022-05-24 02:00:00 W/LzwESCRcyxn7eNKRGP7HDNsioIdb9chrcjI2 4OePTksfn9zwuFDsmziB0Uy+TX3773-42-24A5 2:00:00 Pt resting in room quietly, respirations even nonlabored, no acute distress. [address]125-5Ecnqobpof[address] KkdxEP4879-54-43C52:07:26[facility] NoteTXT1.2.840.549735.1.13.43.2.7.2.72 7879|[id number] for patient gmbm74322-3Wqjdpyyoi[address] [place] [address] GddqAH614388742Cnhcm [facility]2525 [facility] HospitalHsvqUeprkmmIgdbfsnDSAK4847943965FDEC78 23-05-23T05:07:261.2.840.101286.1.72.3 .15|1.2.840.807351.1.13.43.2.7.2.55659 9_[id number] Cynthia Zucker [facility] 2022-05-23 23:58:21 iiIXwXck2XEOEn//VXpBwUbYMPRnqcuP/ohzIR GlsafX9f06Kq+rZSxOpMJ/yrJm9450-22-03O1 3:58:21 [place] [address]-0Vukjpjimh department OukfVO6957-24-66F32:58:35[facility] department NoteTXT1.2.840.995475.1.13.43.2.7.2.72 7879|1270148669TJSylwfxfxt for patient zlpi88463-2Athmytveh department NoteLNGreene Memorial Hospital2525 Natalie KellyStbuUoeldggXwpyuxvRTZE3887578389SCEP35 23-05-22T23:58:351.2.840.449735.1.72.3 .15|1.2.840.641553.1.13.43.2.7.2.19179 9_[id number] [facility] 2022-05-23 22:47:00 yRUdoP35HzLBVgdcHss+aLYJ8w0OlU0yinXVoV Q6WA0+UD/1go3BNfQ80ZAC2h366120-61-87X3 2:47:00 Patient Tej Guadalupe, 37 y.o. male, [...] extremities spontaneously. Patient pending medical bed admission. 05066-7Dzvhrgqjs department HoulLM1518-98-10J46:20:22[facility] department NoteTXT1.2.840.261151.1.13.43.2.7.2.72 7879|[id number] for patient luay46679-0Vkyqucljc department NoteBellevue Hospital2525 [facility] HospitalAkrlVtiokxsDpsbpalULQP5275793357TDXY79 23-05-2301:20:221.2.840.077576.1.72.3 .15|1.2.840.098780.1.13.43.2.7.2.86198 9_[id number] [facility] 2022-05-23 22:11:16 AF2O3t6SLuxnYVm8vCXFv9xt0yiW2zAOAFOfnu N4aeKNW9DjBSL9svTHNWSLVIFW9434-00-79G3 2:11:16 Pt ambulatory to B4 for admission with triage nurse. Pt A&OX4, respirations even nonlabored, no acute distrress/no airway distress. 71800-4Frwtixfnz department IysnFN6012-31-12H41:11:43[facility] department NoteTXT1.2.840.882576.1.13.43.2.7.2.72 7879|[id number] for patient tusq49976-1Tdchskugl department [facility]2525 [facility] HospitalIrpdXjtsjemFyeinzvXXFB8422874615JWHN76 23-05-22T22:11:431.2.840.395466.1.72.3 .15|1.2.840.291167.1.13.43.2.7.2.38294 9_[id number] [facility] 2022-05-23 13:29:36 WGMtL/OYiXNnt3+DJ09btNlRfpM5IcCeR7IAU2 ArK4aMnc5Eplo89O+DkpKKUlY24925-66-75Q4 3:29:36 Images from the original note were [...] about a month" per pt. Seen at [facility] on 05/19/2022 for same issue. [...] History provided by: Medical records and patientLanguage machine i cutter used: No AbscessLocation: Shoulder/armShoulder/arm abscess location: R [...] forearmProcedures ProceduresED Course ED Course as of 05/23/222338May 23, 2022 1432 Sed Rate: 11 [MR] [...] Continue to monitor in the emergency departmentNAVEEN Lane-[facility] FellowProvider #[id number]/222:04 PM Clinical Impression 1. Cutaneous abscess of right upper extremity 2. Cellulitis of right upper extremity PROVIDER REASSESSMENT NOTEI reexamined the patient Tejjae Roachkelly Guadalupe.Latest vital signs are:Vitals: 05/23/22 1053 05/23/22 [...] F Reyes MD August 01, 2022 11:44 XE40678-6Bgjricszx Emergency department AevoUK391608Tojinyd, Stephen A1.2.840.437523.1.13.43.2.7.2.784532Vg lhexwLxhbaypYJC7127-93-41G04:46:02Phys [facility] Emergency department NoteTXT1.2.840.688206.1.13.43.2.7.2.72 7879|[id number] for patient fclw31122-2Fuqdjzlco department NoteLNGreene Memorial Hospital2525 [facility] Hospit[id number] 23-07-31T11:46:021.2.840.400537.1.72.3 .15|1.2.840.603978.1.13.43.2.7.2.25688 9_[id number] [facility] 2022-05-23 10:59:29 0ueJL/JpOug+jzvd8nCWdcE/ni68CrzH3sOwTg M3AaYuylfDl4QIM24/eoUydqqn9603-62-10N4 0:59:29 ABC intact. Resp even and unlabored. Skin warm and dry with color appropriate to ethnicity. Pt in stable condition. NAD. Verified name and verbally with pt and armband. Informed pt to notify this RN or staff if wanting to leave, and/or experiencing any changes in condition. 05555-6Hffigreie department Triage mbgcZU4789-64-12B59:01:33[facility] department Triage noteTXT1.2.840.759168.1.13.43.2.7.2.72 7879|[id number] for patient qtpo24778-9Wvlggzmpn department TrmkJU800458714Fucbfwwl Denice Ahmadi RNGreene Memorial Hospital2525 [facility] HospitalMhhkYjcoekrHcxyvwyMRIC5906013481HJWT00 23-05-22T11:01:331.2.840.276502.1.72.3 .15|1.2.840.553603.1.13.43.2.7.2.38089 9_[id number] Mary Jane Cheung RN [facility] 2022-05-23 10:50:34 8IhlFxnONzoq4c3zGVglLTT8tnrsJYCuXN73wP wFD4e4Stb95a8Qwyn8IXu/K/zK5190-65-29U6 0:50:34 MEDICAL SCREENING EXAMINATION PROVIDER NOTEI evaluated [...] at this time.Billy Aguayo 2021 10:52 AM 15916-0Ivczsujaw department YvfsIC6196-59-81F66:53:43[facility] department NoteTXT1.2.840.398511.1.13.43.2.7.2.72 7879|[id number] for patient dehu37735-4Wtverteyu department NoteLNNurse PractitionerNurse PractitionerGreene Memorial Hospital2525 [facility] Hospit[id number] 23-05-22T10:53:431.2.840.770320.1.72.3 .15|1.2.840.564924.1.13.43.2.7.2.35390 9_[id number] Nurse Practitioner [facility] 2022-05-22 20:38:38 1vE8ONehqV/zhVooheNvocLd3bKK31H859k62k SDzvM+7BUS+Au02DgzlQllFkRI4676-16-64B8 0:38:38 Tejjae Simeon Roe called within waiting room and did not answer x3. Patient name paged overhead within the Emergency Department without response. Waiting rooms, ED care areas and restrooms visualized and patient not found. 43059-8Wevnjuslp department ArojCA1118-75-01Z59:38:46[facility] department NoteTXT1.2.840.531583.1.13.43.2.7.2.72 7879|[id number] for patient ggxi21409-8Ezjytwhav department ZdbrMM469969318Mwogxvd Martin RNGreene Memorial Hospital2525 [facility] HospitalY[id number] 23-05-21T20:38:461.2.840.237882.1.72.3 .15|1.2.840.047265.1.13.43.2.7.2.32924 9_[id number] Michelle Cuenca [facility] 2022-05-22 13:26:33 GZ5Nvolyn31IdgE4iJsNhypCSmmeNhvjDIMHQx uWMbt57DV2kJdZHryUaH13Vjqm5609-28-62H1 3:26:33 MEDICAL SCREENING EXAMINATION PROVIDER NOTEI evaluated [...] at this time.Billy Novak 2021 1:29 PM 15031-9Qoemkyeed department TihpTA4282-23-16X87:33:27[facility] department NoteTXT1.2.840.785212.1.13.43.2.7.2.72 7879|[id number] for patient tnej86546-0Yxosuqxgy department NoteLNNurse PractitionerNurse Practitioner[address] Paul StreetTXTX7705477[address]USUS20 23-05-213:33:271.2.840.378710.1.72.3 .15|1.2.840.251238.1.13.43.2.7.2.15677 9_[id number] Nurse Practitioner [facility] 2022-05-19 19:48:02 fCth6P6CoZcH7yN8KA1UB1QIKYP+3atkRXnoYy Swm0bnYjdOhyvPmqwOQAS/cxWY8327-55-49V1 9:48:02 Pt AAOX4. Discharge instructions and prescription given, pt verbalizes understanding. Escorted to checkout with belongings in hand. Ambulatory with steady gait. VSS. Respirations even and unlabored. NAD upon departure. 68608-3Btzaofzgt department UvakER4067-47-79Z38:48:18[facility] department NoteTXT1.2.840.525479.1.13.43.2.7.2.72 7879|[id number] for patient dvjw81570-2Mxmhkmpvv department TndkTB461245133Mpvsup Graham RN[address]HoustonHoustonTXTX7705477[address]USUS20 23-05-18:48:181.2.840.364271.1.72.3 .15|1.2.840.319110.1.13.43.2.7.2.20063 9_[id number] Jah Bueno RN [facility] 2022-05-19 19:35:00 rhCHdwRS49Q1/Q/Bg/ZF5WlhEtMRDWOkCAHMTm RO9EHNQaNg1vlezPKIV8g21me23566-65-81A4 9:35:00 37 yo pt comes to ED [...] at this time Pt Is pending d/c 33162-6Xksvfzhws department YmujGU8384-42-17T37:48:50Emergency department NoteTXT1.2.840.788369.1.13.43.2.7.2.72 7879|[id number] for patient uodw98653-3Zfenrjgld department NoteLNGreene Memorial Hospital2525 [facility] HospitalSiozNlvpzscHbxftjpMHPH9597660884CCOX38 23-05-189:48:501.2.840.238547.1.72.3 .15|1.2.840.985842.1.13.43.2.7.2.70908 9_[id number] [facility] 2022-05-19 15:56:27 KZx5w+CJxzXXVTWWguXPBjbiLp1nM3rkFZisbl muNQ41G+NlePflmifHGQF2Bl3h7449-25-63T9 5:56:27Associated Order(s): I&D of AbscessPost-Procedure Diagnose(s): Right [...] cellulitis and had procedure (surgical I&D) (Rhina Starks), treated with cellulitis and sent home with [...] Lea May 19, 2022 1856 TEACHING PHYSICIAN NOTEI personally examined Tej Guadalupe, performed [...] Impression 1. Right wrist pain Chris Marrufo, VijsdkvzRHJsdwbrev77/18/22 1641 Chris Marrufo, QyfrkouqYDRgemunbu32/18/22 1738 Chris Marrufo, JyfuzdqoNJGllhwfhi15/18/22 1739 Chris Marrufo, WmvhzplqEZOhzmkoqv60/18/22 1847 Chris Marrufo, IieivrcrGMHymvvmaw32/18/22 1908TEACHING PHYSICIAN CEE personally examined Tej Guadalupe, performed [...] Estrada 2021 10:23 PM Daniel Petit MD05/19/226 48505-6Rdoyjxuvd Emergency department CpwnMB336350FnZvzphk, Robert1.2.840.718696.1.13.43.2.7.2.836 232FjAejteiNjswsqJC3602-50-94W44:30:23 Physician Emergency department NoteTXT1.2.840.712299.1.13.43.2.7.2.72 7879|[id number] for patient fmaz20653-7Xrgylkjbb department NoteLNInternal MedicineInternal MedicineGreene Memorial Hospital2525 [facility] HospitalJjzvTwannlrDdkprwsLGZX1206143445YAHN63 23-05-18T22:26:301.2.840.784590.1.72.3 .15|1.2.840.386116.1.13.43.2.7.2.03771 9_[id number] Internal Medicine [facility] 2022-05-19 15:51:03 Becky/GSvv7zAW4I8hE6yhSrPe5u2C8bZWmWf H5jGvy1E00GNoasLHYldi3upIj9157-09-20G5 5:51:03 Assessment X2 pt's ID, ABC intact, [...] hot to touch. No peripheral edema. MAEX4 PTIR6Neay light and belongings within reachPending evaluation and orders, will continue to monitor VINI Gonzalez 73535-2Hjriijmqz department BkwhSV2850-18-13E09:54:23[facility] department NoteTXT1.2.840.324239.1.13.43.2.7.2.72 7879|[id number] for patient jrge82778-3Ykqzjader department ImxfJN240408248Bddcte [facility]2525 [facility] HospitalAoznMmipaesXmnfhqsBLAO4788783423PQYG94 23-05-18T15:54:231.2.840.730249.1.72.3 .15|1.2.840.079088.1.13.43.2.7.2.51942 9_[id number] Antwon Gonzalez [facility] 2022-05-19 12:42:01 OGgTU+xtcskp+VOWHHXlodfgKTTEI08VND0IT5 /Oi/Rn9XDK9Aj28efJmjRv4QTd8859-89-74F0 2:42:01 Pt noted to have another hospital arm band on stated "they told me to come here to get them lanced" 78513-5Cvtddwgjh department SsodTP0283-60-11F66:42:31Emercorner[facility] hospital department NoteTXT1.2.840.580865.1.13.43.2.7.2.72 7879|[id number] for patient pkat64739-8Cmuyatjmf department QiemKY088331781Nzpqommx Clardy [address]TXTX7705477[address]USUS20 23-05-182:42:311.2.840.583364.1.72.3 .15|1.2.840.849129.1.13.43.2.7.2.53103 9_[id number] Emma Weathers [facility] 2022-05-19 12:32:25 mG8RaTeQ08X5TaMfP9Ep41mn+kD7xQssKovP/L A1tBgeffdAV2Rr5RlYouQm8E7V9006-66-71J5 2:32:25 Name and verified and confirmed correct with patient. 34187-3Hbnmxymme department FzcqSK7410-22-54V83:32:31[facility] department NoteTXT1.2.840.806012.1.13.43.2.7.2.72 7879|[id number] for patient lnft64728-1Zmnjagqdk department NoteLN[address]TXTX7705477054USUS20 23-05-182:32:311.2.840.421254.1.72.3 .15|1.2.840.950551.1.13.43.2.7.2.23104 9_[id number] [facility] 2022-05-19 12:30:12 bWo0hFYGRrCAgC/X6SRtTGfGcT1pRFZDB+7axL b068Wrxhrf+Su4xL6hArjDaLmr3474-13-28Q8 2:30:12 MEDICAL SCREENING EXAMINATION PROVIDER NOTEI evaluated [...] at this time.Choco Matthews 2021 12:30 PM 86744-9Jetcibhnq department DkmfGJ8305-54-23U44:32:29Emercorner[facility] hospital department NoteTXT1.2.840.221653.1.13.43.2.7.2.72 7879|[id number] for patient riyk81783-6Vvesaqlny department NoteLNGreene Memorial Hospital2525 [facility] HospitalLyhcVhxqyunUneukpyMAUZ9212434215RKAC08 23-05-18T12:32:291.2.840.554385.1.72.3 .15|1.2.840.171627.1.13.43.2.7.2.02482 9_[id number] [facility] 2020-12-13 19:54:00 LSouosowrju20281810PLQ+t7fdRbJmLcHAtrH c/lhwvqgxC986ktQxBD64AQfWbqrUaqsIbTBp/ CIEUPMe5397-81-11U24:54:00 [facility] ([facility])EMERGENCY PROVIDER REPORTREPORT#:[id number] REPORT STATUS: SignedDATE:12/13/20 TIME: 1953 PATIENT: TEJ GUADALUPE UNIT #: [id number]#: [id number] ROOM/BED:AGE: 35 SEX: M PCP PHYS: No [...] HPI NotesPatient states he is withdrawing from [place] and [facility] and thinks he may have [...] and squeezes hands appropriately upon command. Normal eoym-le-ftkf eye movements on extraocular muscle testing. No [...] 1949 Pulse 102 12/13 1949 Resp 12/13 Review of Vital Signs Reviewed Focused PEGeneral/Const [...] NL Interpretation Diagnostics Lab Results InterpretationResultsLaboratory Tests 12/13/20 2005:[Embedded Image Not Available]Laboratory Tests: 12/13 Chemistry [...] pH (5.0 - 8.0) 6.5 Ur Specific [place] (1.001 - 1.035) 1.014 Urine Protein (NEGATIVE [...] 102 12/13 1950 Resp 16 12/13 1949 All vital signs available at the time of this entry have been reviewed. Clinical ImpressionClinical ImpressionPrimary Impression: DepressionSecondary Impressions: POSSIBLE SEIZURE Pt/Provider HandoffCare Transferred at 2238 (to Dr. Mari) at 2238RPT #:[id number] OF REPORTEDEmergency department sbhxoh1632-52-30W18:54:00V.SWFK6998317 4-0589AVAvailable for patient abayYFPSRIZVITYSYY5233-05-93Y52:39:03 [facility] 2020-12-13 19:54:00 AZmztemvwsz53275913sY4lGhlYAATkXlKC/Q6 YIhFAUY3PgkYS7TLxaRrPag8v3Rrenl+Wxasc8 S0tE6P86570-91-08R73:54:00 [facility] ([facility])EMERGENCY PROVIDER REPORTREPORT#:[id number] REPORT STATUS: SignedDATE:12/13/20 TIME: 1953 PATIENT: TEJ GUADALUPE UNIT #: [id number]#: [id number] ROOM/BED:AGE: 35 SEX: M PCP PHYS: No Primary or Family PhysicianSERVICE AUTHOR: Shaggy Morrow MD * ALL edits or amendments must be made on the electronic/computer document * Shaggy oMrrow 12/13/201953:HPI-Seizure GeneralInitial Greet Date/Time 12/13/20 1950 PresentationChief Complaint Seizure, generalizedSeizure Anatomic Location GeneralizedHx Obtained From Patient, EMSOnset Occurred TodaySymptom Duration Lasting minutesProgression since Onset ResolvedLocation genQuality Unable to verbalizeRadiation Does not radiateSeverity: Onset ModerateSeverity: Current No pain currentlyAssociated Other Pt denies other symptomsExacerbated by NothingRelieved by Nothing Free Text HPI NotesFree Text HPI NotesPatient states he is withdrawing from [place] and [employer] and thinks he may have had a [...] and squeezes hands appropriately upon command. Normal qyda-tr-lkoi eye movements on extraocular muscle testing. No [...] pH (5.0 - 8.0) 6.5 Ur Specific [place] (1.001 - 1.035) 1.014 Urine Protein (NEGATIVE [...] 98 On: Room air Interpretation Interpreted by ct, Pulse oximetry normal Time 1956 Re-Evaluation [facility] ED CourseMedication(s) OrderedMedication(s) Ordered:Antihistamine Drugs Sig/Darius Start [...] 102 12/13 1950 Resp 16 12/13 1949 All vital signs available at the time of this entry have been reviewed. Clinical ImpressionClinical ImpressionPrimary Impression: DepressionSecondary Impressions: POSSIBLE SEIZURE Pt/Provider HandoffCare Transferred at 2238 (to Dr. Mari) Katarina Mari. 12/14/20 0518:Re-Evaluation MDM Re-Evaluation/Progress #1Text/Dict NotePatient to be signed over to Dr. Rhodes at 7 AM. I will continue to monitor thepatient until that time.Time of Re-Eval 0518 at 2238 at 0519RPT #:[id number] OF REPORTEDEmergency department blwaqg0534-58-67N57:54:00V.[id number] 4-0589AVAvailable for patient mxbmTYMLVPXKGQWFFZ3687-78-33L32:19:25 [facility] 2020-12-13 19:54:00 [id number]+LHvbz6 tAnvHl2hg5VK+tcRCyGEtMuSolEeOBOW4X5nnn TQZ6n0F6284-38-86C32:54:00 [facility] ([facility])EMERGENCY PROVIDER REPORTREPORT#:[id number] REPORT STATUS: SignedDATE:12/13/20 TIME: 1953 PATIENT: TEJ GUADALUPE UNIT #: [id number]#: [id number] ROOM/BED:AGE: 35 SEX: M PCP PHYS: No [...] HPI NotesPatient states he is withdrawing from [place] and [facility] and thinks he may have [...] and squeezes hands appropriately upon command. Normal bvaw-rr-xwis eye movements on extraocular muscle testing. No [...] B/P 121/86 12/14 0730 B/P Mean 97 03/15 0730 O2 Delivery Room air 12/14 729 Temp [...] pH (5.0 - 8.0) 6.5 Ur Specific [place] (1.001 - 1.035) 1.014 Urine Protein (NEGATIVE [...] monitor thepatient until that time.Time of Re-Eval 05 Darinel Rhodes 12/14/20 0802:Re-Evaluation MDM Free Text MDM NotesFree Text MDM NotesPatient left AMA without my involvement at 2238 at 0519 at 0803RPT #:[id number] OF REPORTEDEmergency department odbked5895-60-64J08:54:00V.[id number] 4-0589AVAvailable for patient knqzFFMLSCRRCZIKJR2826-47-22G81:03:59 [facility] 2020-12-06 16:41:00 [id number]/6uZLDtio6LCo7nVy zA2GcNbFtzBGJaPKwmI/ixEWqv0u9BCRdj3JvZ y3R3wee0146-96-64H87:41:00 [facility] ([facility])EMERGENCY PROVIDER REPORTREPORT#:[id number] REPORT STATUS: SignedDATE:12/06/20 TIME: 1641 PATIENT: TEJ GUADALUPE UNIT #: [id number]#: [id number] ROOM/BED:AGE: 35 SEX: M PCP PHYS: No [...] leave the hospital. GeneralInitial Greet Date/Time 12/06/20 1402 PresentationChief Complaint __ (request for xanax) Review of Systems ROS StatementsUnable to Obtain ROS Uncooperative Past Medical History - AdultStated Complaint [facility] DETOXAllergiesCoded Allergies:No Known Allergies (12/06/20) [...] Documented: Result Date Time Pulse Ox 97 03/07 1402 B/P 129/87 03/07 1402 B/P Mean 101 03/07 1402 O2 Delivery Room air 03/07 1402 Temp 36.6 03/07 1402 Pulse 93 03/07 1402 Resp 16 03/07 1402 Last Documented: Result Date Time Pulse Ox 97 03/07 1402 B/P 129/87 03/07 1402 B/P Mean 101 03/07 1402 O2 Delivery Room air 03/ 1402 Temp 36.6 03/07 1402 Pulse 93 03/07 1402 Resp 16 03/07 1402 All vital signs available at the time of this entry have been reviewed. Clinical ImpressionClinical ImpressionPrimary Impression: Benzodiazepine abuse Disposition DecisionOther Against Medical Advice Yes at 1528RPT #:[id number] OF REPORTEDEmergency department [id number] for patient [id number] [facility]
--- NOTE | 2024-01-23 15:47 | ER ---
Nurse's Notes [facility] Name: Anthony Au Age: 38 yrs Sex: Male : 1985 Arrival Date: 01/23/2024 Time: 15:14 Bed 13 Private MD: Diagnosis: Bipolar disorder, unspecified;Patient's unintentional underdosing of medication regimen for other reason Presentation: 01/22 15:27 Chief complaint: Patient states: he is having continued mid back pain that he rates as ap3 a 9/10 on the pain scale. patient also states he has been unable to get refills of his psych medications and is having audible hallucinations. patient denies any SI or HI at this time. Coronavirus screen: At this time, the client does not indicate any symptoms associated with coronavirus-19. Ebola Screen: No symptoms or risks identified at this time. Initial Sepsis Screen: Does the patient meet any 2 criteria? HR > 90 bpm. Does the patient have a suspected source of infection? No. Patient's initial sepsis screen is negative. Risk Assessment: Do you want to hurt yourself or someone else? Patient reports no desire to harm self or others. Onset of symptoms is unknown. 15:27 Method Of Arrival: Ambulatory ap3 15:27 Acuity: MARKY 3 ap3 Triage Assessment: 15:29 General: Appears in no apparent distress. Behavior is cooperative, anxious. Pain: ap3 Complains of pain in back Pain currently is 9 out of 10 on a pain scale. Neuro: Reports hallucinations. Cardiovascular: Patient's skin is warm and dry. Respiratory: Airway is patent Respiratory effort is even, unlabored, Respiratory pattern is regular, symmetrical. Historical: - Allergies: 15:29 No Known Allergies; ap3 - PMHx: 15:29 Anxiety; Asthma; Bipolar disorder; Depression; detox seizures; scalp laceration repair.;ap3 - PSHx: 15:29 I\\T\\D; ap3 - Immunization history:: Adult Immunizations up to date. - Infectious Disease History:: Denies. - Social history:: Smoking status: unknown. - Family history:: not pertinent. - Hospitalizations: : No recent hospitalization is reported. Screenin:30 Abuse screen: Denies threats or abuse. Nutritional screening: No deficits noted. ap3 Tuberculosis screening: No symptoms or risk factors identified. 15:30 [facility] ED Fall Risk Assessment (Adult) History of falling in the last 3 months, me1 including since admission No falls in past 3 months (0 pts) Confusion or Disorientation No (0 pts) Intoxicated or Sedated No (0 pts) Impaired Gait No (0 pts) Mobility Assist Device Used No (0 pt) Altered Elimination No (0 pt) Score/Fall Risk Level 0 - 2 = Low Risk Maintained a safe environment, Provided non-skid footwear, Hourly rounding (assess needs \\T\\ fall precautionary measures) done. Assessment: 15:30 General: Appears uncomfortable, well groomed, well developed, well nourished, Behavior me1 is calm, cooperative, appropriate for age. General: he is having continued mid back pain that he rates as a 9/10 on the pain scale. patient also states he has been unable to get refills of his psych medications and is having audible hallucinations. patient denies any SI or HI at this time. . Pain: Complains of pain in back Pain does not radiate. Pain currently is 10 out of 10 on a pain scale. Is continuous. Neuro: Level of Consciousness is awake, alert, obeys commands, Oriented to person, place, time, situation, Appropriate for age. Neuro: Reports audible hallucinations.. Cardiovascular: Capillary refill < 3 seconds Patient's skin is warm and dry. Respiratory: Airway is patent Respiratory effort is even, unlabored, Respiratory pattern is regular, symmetrical. GI: No signs and/or symptoms were reported involving the gastrointestinal system. : No signs and/or symptoms were reported regarding the genitourinary system. EENT: No signs and/or symptoms were reported regarding the EENT system. Derm: Skin is intact, is healthy with good turgor, Skin is pink, warm \\T\\ dry. Musculoskeletal: Reports pain in back. Psych: 15:52 [facility] Suicide Severity Screening: In the past month, have you wished you were me1 or wished you could go to sleep and not wake up? Patient responds "No." "In the past month, have you actually had any thoughts of killing yourself?" Patient responds "no." "In your lifetime, have you ever done anything, started to do anything, or prepared to do anything to end your life?" Patient responds "no.". Subjective: Patient's mood is anxious Delusions are denied, Hallucinations are auditory, Having thoughts of denies SI and HI. Objective: Patient is cooperative, Speech is normal, Affect is appropriate, Patient has mutilated themselves by None noted. Denies. Interventions: n/a. Safety Checks: n/a. Pt denies substance abuse. Commitment: n/a. Vital Signs: 15:27 BP 163 / 100; Pulse 97; Resp 17; Temp 98.1; Pulse Ox 100% ; Weight 86.18 kg; Pain 9/10; ap3 15:48 BP 144 / 96; Pulse 80; Resp 16; Pulse Ox 96% on R/A; me1 15:27 Pain Scale: Adult ap3 ED Course: 15:15 Patient arrived in ED. rg4 15:15 Fernandez Manzano MD is Attending Physician. rn 15:29 Triage completed. ap3 15:29 Latonya Dietz, RN is Primary Nurse. me1 15:30 Arm band placed on right wrist. ap3 15:30 Patient has correct armband on for positive identification. Bed in low position. Call me1 light in reach. Side rails up X 1. Provided Education on: POC. Verbalized understanding. Client placed on continuous cardiac and pulse oximetry monitoring. NIBP monitoring applied. Pulse ox on. NIBP on. 15:30 No provider procedures requiring assistance completed. me1 15:54 Patient did not have IV access during this emergency room visit. me1 Administered Medications: No medications were administered Medication: 15:30 VIS not applicable for this client. me1 Outcome: 15:46 Discharge ordered by . rn 15:54 Discharged to home ambulatory, me1 15:54 Condition: stable 15:54 Discharge instructions given to patient, Instructed on discharge instructions, follow up and referral plans. medication usage, Demonstrated understanding of instructions, follow-up care, medications, Prescriptions given X 2, 15:55 Patient left the ED. me1 Signatures: Fernandez Manzano MD MD rn Garcia, Rubi rg4 Lisa Chatterjee RN RN [facility] Latonya Dietz, VINI RN me1 Corrections: (The following items were deleted from the chart) 15:30 15:27 Chief complaint: Patient states: he is having continued mid back pain that he me1 rates as a 9/10 on the pain scale. patient also states he has been unable to get refills of his psych medications and is having audible hallucinations. patient denies any SI or HI at this time. ap3
--- NOTE | 2024-01-23 15:47 | EDPHYS ---
Physician Documentation 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 15:41 The patient presents to the emergency department with. rn 15:43 The patient presents to the emergency department requesting refill(s) for: Xanax and rn Zyprexa. The patient has experienced similar episodes in the past. Patient reports ran out of his Zyprexa and Xanax a few days ago. Denies suicidal or homicidal ideations. No hallucinations. Patient states missed his last psychiatric visit due to work, is rescheduling the appointment but needs refills until he gets there.. Historical: - Allergies: 15:29 No Known Allergies; ap3 - PMHx: 15:29 Anxiety; Asthma; Bipolar disorder; Depression; detox seizures; scalp laceration repair.;ap3 - PSHx: 15:29 I\T\D; ap3 - Immunization history:: Adult Immunizations up to date. - Infectious Disease History:: Denies. - Social history:: Smoking status: unknown. - Family history:: not pertinent. - Hospitalizations: : No recent hospitalization is reported. ROS: 15:43 Constitutional: Negative for fever, chills, and weight loss, Cardiovascular: Negative rn for chest pain, palpitations, and edema, Respiratory: Negative for shortness of breath, cough, wheezing, and pleuritic chest pain, Abdomen/GI: Negative for abdominal pain, nausea, vomiting, diarrhea, and constipation, MS/Extremity: Negative for injury and deformity, Neuro: Negative for headache, weakness, numbness, tingling, and seizure, Psych: Negative for suicide ideation, homicidal ideation, and hallucinations, Exam: 15:43 Constitutional: This is a well developed, well nourished patient who is awake, alert, rn and in no acute distress. Head/Face: Normocephalic, atraumatic. Cardiovascular: Regular rate and rhythm. No pulse deficits. Neuro: Awake and alert, GCS 15, oriented to person, place, time, and situation. Cranial nerves II-XII grossly intact. Motor strength 5/5 in all extremities. Sensory grossly intact. Cerebellar exam normal. Normal gait. Psych: Awake, alert, with orientation to person, place and time. Behavior, mood, and affect are within normal limits. Vital Signs: 15:27 BP 163 / 100; Pulse 97; Resp 17; Temp 98.1; Pulse Ox 100% ; Weight 86.18 kg; Pain 9/10; ap3 15:48 BP 144 / 96; Pulse 80; Resp 16; Pulse Ox 96% on R/A; me1 15:27 Pain Scale: Adult ap3 MDM: 15:15 Patient medically screened. 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 Counseling: I had a detailed discussion with the patient and/or guardian regarding the historical points, exam findings, and any diagnostic results supporting the discharge/admit diagnosis, the need for outpatient follow up, to return to the emergency department if symptoms worsen or persist or if there are any questions or concerns that arise at home. Special discussion: I discussed with the patient/guardian in detail that at this point there is no indication for admission to the hospital. It is understood, however, that if the symptoms persist or worsen the patient needs to return immediately for re-evaluation. Based on the history and exam findings, there is no indication for further emergent testing or inpatient evaluation. I discussed with the patient/guardian the need to see the psychiatrist for further evaluation of the symptoms. Administered Medications: No medications were administered Disposition Summary: 01/23/24 15:46 Discharge Ordered Notes: Location: Home rn Condition: Stable rn Diagnosis - Bipolar disorder, unspecified rn - Patient's unintentional underdosing of medication regimen for other reason rn Followup: rn - With: Private Physician - When: As needed - Reason: Recheck today's complaints, Re-evaluation by your physician Discharge Instructions: - Discharge Summary Sheet rn - Medicine Refill at the Emergency Department rn - Basics of Medicine Management rn Forms: - Medication Reconciliation Form rn - Antibiotic rn private duty - Prescription Opioid Use rn - Patient Portal Instructions rn - Leadership Thank You Letter rn Prescriptions: - Xanax 1 mg Oral tablet - take 1 tablet ORAL route every 8-12 hours As needed; 6 tablet; Refills: 0, rn Product Selection Permitted - Zyprexa 10 mg Oral Tablet - take 1 tablet ORAL route once daily; 20 tablet; Refills: 0, Product Selection rn Permitted Signatures: Fernandez Manzano MD MD rn Prokisch, Amanda, RN RN ap3
[2024-01-23 16:16] VITALS: BP 144/96; TEMP 98.1; O2SAT 96
== END 2024-01-23 15:55 | disposition home or self-care (01) ==
LOC: ER 15:14
DX: F31.9 Bipolar disorder, unspecified (principal); Z91.138 Patient's unintentional underdosing of medication regimen for other reason
CPT/HCPCS: 99284

== ENCOUNTER 2024-01-28 10:34 | Emergency (ER) | payer SELFPAY ==
--- OUTSIDE RECORDS SUMMARY | 2024-01-28 10:40 | XMS REPORT | Continuity of Care Document ---
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 [facility] CULT[facility] 2022-05-31 08:53:00 Germán, [facility] ANAEROBE CULTURE 2022-05-31 08:53:00 Germán, [facility] FUNGUS STAIN AND CULTURE 2022-05-31 08:53:00 Germán, [facility] WOUND/ABSCESS CULTURE AND GRAM STAIN 2022-05-31 08:53:00 Germán, [facility] BASIC METABOLIC PANEL 2022-05-31 05:12:00 Lulu [facility] BASIC METABOLIC PANEL 2022-05-31 05:12:00 Lawson [facility] GLUCOSE POC 2022-05-29 08:04:00 [facility] GLUCOSE POC 2022-05-29 08:04:00 [facility] CBC (WITHOUT DIFFERENTIAL) 2022-05-29 04:33:00 Lawson [facility] BASIC METABOLIC PANEL 2022-05-29 04:33:00 Lulu [facility] BASIC METABOLIC PANEL 2022-05-29 04:33:[address] [facility] CBC (WITHOUT DIFFERENTIAL) 2022-05-29 04:33:00 Lawson [facility] GLUCOSE POC 2022-05-28 16:49:00 Lupe [facility] GLUCOSE POC 2022-05-28 16:49:00 [facility] GLUCOSE POC 2022-05-28 11:46:00 [facility] GLUCOSE POC 2022-05-28 11:46:00 [facility] GLUCOSE POC 2022-05-28 08:24:00 [facility] GLUCOSE POC 2022-05-28 08:24:00 [facility] CBC (WITHOUT DIFFERENTIAL) 2022-05-28 04:36:[address] [facility] BASIC METABOLIC PANEL 2022-05-28 04:36:[address] [facility] BASIC METABOLIC PANEL 2022-05-28 04:36:[address] [facility] CBC (WITHOUT DIFFERENTIAL) 2022-05-28 04:36:[address] [facility] CBC (WITHOUT DIFFERENTIAL) 2022-05-27 05:10:[address] [facility] BASIC METABOLIC PANEL 2022-05-27 05:10:00 LawsonIan [facility] AMIKACIN, RANDOM LEVEL 2022-05-27 05:10:00 Marcin Matteo Marrero [facility] BASIC METABOLIC PANEL 2022-05-27 05:10:[address] [facility] CBC (WITHOUT DIFFERENTIAL) 2022-05-27 05:10:00 Heath Lawson [facility] AMIKACIN, RANDOM LEVEL 2022-05-27 05:10:00 Marcin Matteo Marrero [facility] AMIKACIN, RANDOM LEVEL 2022-05-26 23:35:00 Marcin Matteo Marrero [facility] AMIKACIN, RANDOM LEVEL 2022-05-26 23:35:00 Marcin Matteo mora [facility] AMIKACIN, TROUGH LEVEL 2022-05-26 05:53:[address] [facility] CBC (WITHOUT DIFFERENTIAL) 2022-05-26 05:53:[address] [facility] BASIC METABOLIC PANEL 2022-05-26 05:53:00 LawsonIan [facility] BASIC METABOLIC PANEL 2022-05-26 05:53:00 LawsonIan [facility] CBC (WITHOUT DIFFERENTIAL) 2022-05-26 05:53:00 Heath Lawson [facility] AMIKACIN, TROUGH LEVEL 2022-05-26 05:53:[address] [facility] CONSULT CLINICAL CASE MANAGEMENT (RN/SW) 2022-05-25 14:55:[address] [facility] CONSULT CLINICAL CASE MANAGEMENT (RN/SW) 2022-05-25 14:55:[address] [facility] CBC/DIFF 2022-05-25 08:24:00 Heath Lawson [facility] BASIC METABOLIC PANEL 2022-05-25 08:24:00 Ian Lawson [facility] CBC 2022-05-25 08:24:00 Heath Lawson [facility] BASIC METABOLIC PANEL 2022-05-25 08:24:00 Ian Lawson [facility] CBC/DIFF 2022-05-25 08:24:00 Heath Lawson [facility] CBC 2022-05-25 08:24:00 Heath Lawson [facility] ANAEROBE CULTURE 2022-05-24 20:47:00 [facility] GRAM STAIN 2022-05-24 [facility]:47[facility]24 20:47[facility]00 [facility]ESS CULTURE AND GRAM STAIN 2022-05-24 20:47[facility] 2022-05-24 15:44:00 Germán [facility] FUNGUS STAIN AND CULTURE 2022-05-24 15:44:00 Pilo Dunlap [facility] [employer] STAIN AND CULTURE 2022-05-24 15:44:00 Germán [facility] FUNGUS STAIN AND CULTURE 2022-05-24 15:44:00 Pilo Dunlap [facility] INFUSION PUMP 2022-05-24 04:24:23 Lupe Burch [facility] INFUSION PUMP 2022-05-24 04:24:23 Lupe Burch [facility] CBC/DIFF 2022-05-24 04:22:[address] [facility] CBC 2022-05-24 04:22:[address] [facility] CBC/DIFF 2022-05-24 04:22:[address] [facility] CBC 2022-05-24 04:22:[address] [facility] HIV AG/AB COMBO DIAGNOSTIC/SYMPTOMATIC 2022-05-23 18:44:00 [facility] HEPATITIS PANEL 2022-05-23 18:44:00 [facility] HEPATITIS PANEL 2022-05-23 18:44:00 Adore [facility] HIV AG/AB COMBO DIAGNOSTIC/SYMPTOMATIC 2022-05-23 18:44:00 [facility] SARS-COV-2, FLU A/B, RSV 2022-05-23 15:41:[address] [facility] CORONAVIRUS, COVID-19, YOKASTA 2022-05-23 15:41:[address] [facility] CORONAVIRUS, COVID-19, YOKASTA 2022-05-23 15:41:[address] [facility] SARS-COV-2, FLU A/B, RSV 2022-05-23 15:41:[address] [facility] BASIC METABOLIC PANEL 2022-05-23 11:25:[address] [facility] CBC/DIFF 2022-05-23 11:25:[address] [facility] CBC 2022-05-23 11:25:[address] [facility] SED RATE 2022-05-23 11:25:00 Orlando Donald [facility] C-REACTIVE PROT 2022-05-23 11:25:00 Orlando Donald [facility] BASIC METABOLIC PANEL 2022-05-23 11:25:[address] [facility] CBC/DIFF 2022-05-23 11:25:[address] [facility] C-REACTIVE PROT 2022-05-23 11:25:00 Orlando Donald [facility] SED RATE 2022-05-23 11:25:00 Orlando Donald [facility] CBC 2022-05-23 11:25:[address] [facility] LIMITED BEDSIDE ULTRASOUND 2022-05-23 11:08:27 Unknown, Provider [facility] HC POC URINE DRUG SCREEN 2022-05-19 21:30:00 Jennifer Alcala [facility] HC POC URINE DRUG SCREEN 2022-05-19 21:30:00 [facility] I&D OF ABSCESS 2022-05-19 19:03:[address] [facility] I&D OF ABSCESS 2022-05-19 19:03:[address] [facility] WOUND/ABSCESS CULTURE AND GRAM STAIN 2022-05-19 18:54:[address] [facility] WOUND/ABSCESS CULTURE AND GRAM STAIN 2022-05-19 18:54:[address] [facility] XRAY FOREARM 2 VIEWS MIN 2022-05-19 17:04:[address] [facility] XRAY FOREARM 2 VIEWS MIN 2022-05-19 17:04:37 Keagan Wells graciela [facility] CBC/DIFF 2022-05-19 14:29:00 Tramaine [facility] BASIC METABOLIC PANEL 2022-05-19 14:29:00 [facility] LACTIC ACID 2022-05-19 14:29:00 Tramaine [facility] CBC 2022-05-19 14:29:00 Tramaine [facility] SED RATE 2022-05-19 14:29:00 [facility] C-REACTIVE PROT 2022-05-19 14:29:00 Russell [facility] BASIC METABOLIC PANEL 2022-05-19 14:29:00 Dana Wells [facility] CBC/DIFF 2022-05-19 14:29:00 Tramaine [facility] C-REACTIVE PROT 2022-05-19 14:29:00 Tramaine [facility] LACTIC ACID 2022-05-19 14:29:00 Tramaine [facility] SED RATE 2022-05-19 14:29:00 [facility] CBC 2022-05-19 14:29:00 Tramaine [facility] HC POC URINE DRUG SCREEN 2022-05-19 11:15:00 [facility] HC POC URINE DRUG SCREEN 2022-05-19 11:15:00 [facility] POC COVID-19 2022-05-17 17:50:[address] [facility] HC POC URINE DRUG SCREEN 2022-05-12 17:47:00 Rebel Case [facility] HC POC URINE DRUG SCREEN 2022-05-12 17:47:[address] [facility] POC COVID-19 2022-05-11 23:56:00 Rebel Case [facility] XRAY WRIST 3 VIEWS MIN 2022-05-11 17:04:00 [facility]FF 2022-05-11 16:20:00 Michael Hanh Mata [facility] BASIC METABOLIC PANEL 2022-05-11 16:20:00 German Rodriguez [facility] HIV AG/AB COMBO ROUTINE SCREENING 2022-05-11 16:20:00 [facility] CBC 2022-05-11 16:20:00 Michael Hanh Mata [facility] URINE DRUG (IMMUNOASSAY) - COMPREHENSIVE DRUG SCREEN 2021-01-30 22:04:00 Shy Martin [facility] HEPATIC FUNCTION PANEL (64907) (ALB,T.PRO,BILI T,BU/BC,ALT,AST,ALK PHOS) 2021-01-30 22:03:00 Shy Martin [facility] BASIC METABOLIC PANEL (NA, K, CL, CO2, GLUCOSE, BUN, CREATININE, CA) 2021-01-30 22:03:00 Shy Martin [facility] SALICYLATE 2021-01-30 22:03:00 [facility] 2021-01-30 22:03:00 [facility] 2021-01-30 22:03:00 [facility] 2021-01-30 22:02:00 [facility] (ID NOW RAPID TESTING) 2021-01-30 22:02:00 Shy Martin [facility] NOTICE OF PRIVACY PRACTICES 2021-01-30 21:37:21 Doctor Unassigned, [place] [facility] CONSENT/REFUSAL FOR DIAGNOSIS AND TREATMENT 2021-01-30 21:37:00 Doctor Unassigned, [place] [facility] Plan of Care Planned Activity Planned Date Details Comments [facility] Scheduled Test 2023-07-02 00:00:00 IMM Influenza Seasonal (>/= 19 yrs) [code = IMM Influenza Seasonal (>/= 19 yrs)] [facility] Scheduled Test 2023-07-02 00:00:00 IMM Influenza Seasonal (>/= 19 yrs) [code = IMM Influenza Seasonal (>/= 19 yrs)] [facility] Scheduled Test 2023-06-02 00:00:00 IMM Influenza Seasonal (>/= 19 yrs) [code = IMM Influenza Seasonal (>/= 19 yrs)] [facility] Scheduled Test 2023-06-02 00:00:00 IMM Influenza Seasonal (>/= 19 yrs) [code = IMM Influenza Seasonal (>/= 19 yrs)] [facility] Scheduled Test 2023-06-02 00:00:00 IMM Influenza Seasonal (>/= 19 yrs) [code = IMM Influenza Seasonal (>/= 19 yrs)] [facility] Scheduled Test 2023-06-02 00:00:00 IMM Influenza Seasonal (>/= 19 yrs) [code = IMM Influenza Seasonal (>/= 19 yrs)] [facility] Scheduled Test 2023-06-02 00:00:00 IMM Influenza Seasonal (>/= 19 yrs) [code = IMM Influenza Seasonal (>/= 19 yrs)] [facility] Scheduled Test 2023-06-02 00:00:00 COVID-19 Vaccine ( season) [code = COVID-19 Vaccine ( season)] [facility] Scheduled Test 2023-06-02 00:00:00 IMM Influenza Seasonal (>/= 19 yrs) [code = IMM Influenza Seasonal (>/= 19 yrs)] [facility] Scheduled Test 2023-06-02 00:00:00 COVID-19 Vaccine ( season) [code = COVID-19 Vaccine ( season)] [facility] Scheduled Test 2023-06-02 00:00:00 IMM Influenza Seasonal (>/= 19 yrs) [code = IMM Influenza Seasonal (>/= 19 yrs)] [facility] Scheduled Test 2022-07-02 00:00:00 IMM Influenza Seasonal (>/= 19 yrs) [code = IMM Influenza Seasonal (>/= 19 yrs)] [facility] Scheduled Test 2022-07-02 00:00:00 IMM Influenza Seasonal (>/= 19 yrs) [code = IMM Influenza Seasonal (>/= 19 yrs)] [facility] Scheduled Test 2022-07-02 00:00:00 IMM Influenza Seasonal (>/= 19 yrs) [code = IMM Influenza Seasonal (>/= 19 yrs)] [facility] Scheduled Test 1992 00:00:00 Imm Pneumococcal 0-64 (1 - PCV) [code = Imm Pneumococcal 0-64 (1 - PCV)] [facility] Scheduled Test 1992 00:00:00 Imm Pneumococcal 0-64 (1 - PCV) [code = Imm Pneumococcal 0-64 (1 - PCV)] [facility] Scheduled Test 1992 00:00:00 Imm Pneumococcal 0-64 (1 - PCV) [code = Imm Pneumococcal 0-64 (1 - PCV)] [facility] Scheduled Test 1992 00:00:00 Imm Pneumococcal 0-64 (1 - PCV) [code = Imm Pneumococcal 0-64 (1 - PCV)] [facility] Scheduled Test 1992 00:00:00 Imm Pneumococcal 0-64 (1 - PCV) [code = Imm Pneumococcal 0-64 (1 - PCV)] [facility] Scheduled Test 1992 00:00:00 Imm Pneumococcal 0-64 (1 - PCV) [code = Imm Pneumococcal 0-64 (1 - PCV)] [facility] Scheduled Test 1992 00:00:00 Imm Pneumococcal 0-64 (1 - PCV) [code = Imm Pneumococcal 0-64 (1 - PCV)] [facility] Scheduled Test 1992 00:00:00 Imm Pneumococcal 0-64 (1 - PCV) [code = Imm Pneumococcal 0-64 (1 - PCV)] [facility] Scheduled Test 1992 00:00:00 Imm Pneumococcal 0-64 (1 of 2 - PCV) [code = Imm Pneumococcal 0-64 (1 of 2 - PCV)] [facility] Scheduled Test 1992 00:00:00 Imm Pneumococcal 0-64 (1 of 2 - PCV) [code = Imm Pneumococcal 0-64 (1 of 2 - PCV)] [facility] Scheduled Test 1992 00:00:00 Imm Pneumococcal 0-64 (1 of 2 - PCV) [code = Imm Pneumococcal 0-64 (1 of 2 - PCV)] [facility] Scheduled Test 1992 00:00:00 Imm Pneumococcal 0-64 (1 of 2 - PCV) [code = Imm Pneumococcal 0-64 (1 of 2 - PCV)] [facility] Scheduled Test 1986 00:00:00 COVID-19 Vaccine (#1) [code = COVID-19 Vaccine (#1)] [facility] Scheduled Test 1986 00:00:00 COVID-19 Vaccine (#1) [code = COVID-19 Vaccine (#1)] [facility] Scheduled Test 1986 00:00:00 COVID-19 Vaccine (#1) [code = COVID-19 Vaccine (#1)] [facility] Scheduled Test 1986 00:00:00 COVID-19 Vaccine (#1) [code = COVID-19 Vaccine (#1)] [facility] Scheduled Test 1986 00:00:00 COVID-19 Vaccine (#1) [code = COVID-19 Vaccine (#1)] [facility] Scheduled Test 1986 00:00:00 COVID-19 Vaccine (#1) [code = COVID-19 Vaccine (#1)] [facility] Scheduled Test 1986 00:00:00 COVID-19 Vaccine (#1) [code = COVID-19 Vaccine (#1)] [facility] Scheduled Test 1986 00:00:00 COVID-19 Vaccine (#1) [code = COVID-19 Vaccine (#1)] [facility] Scheduled Test 1986 00:00:00 COVID-19 Vaccine (#1) [code = COVID-19 Vaccine (#1)] [facility] Scheduled Test 1986 00:00:00 COVID-19 Vaccine (#1) [code = COVID-19 Vaccine (#1)] [facility] Scheduled Test 1986 00:00:00 Fluoride Varnish [code = Fluoride Varnish] [facility] Scheduled Test 1986 00:00:00 Fluoride Varnish [code = Fluoride Varnish] [facility] Encounters Start Date/Time End Date/Time Encounter Type Admission Type Attending [facility] Care Department Encounter ID Source 2022-06-15 12:36:45 Outpatient [facility] [id number] [facility] 2022-06-14 12:01:29 Emergency [facility] [id number] [facility] ent 2022-06-06 23:18:34 Outpatient [facility] [id number] [facility] 2022-06-06 23:16:04 Outpatient [facility] [id number] [facility] 2022-04-06 05:42:38 Outpatient [facility] [id number] [facility] 2020-12-14 08:08:00 Inpatient [facility] LJ [id number] [facility] 2020-12-13 19:49:00 Inpatient [facility] LJ [id number] [facility] 2020-12-06 14:30:44 Inpatient [facility] HC[facility] [id number] [facility] 2024-01-02 00:00:00 2024-01-02 00:00:00 Patient Outreach Tatiana Allen 1..840.114 [id number] [id number] [id number] [facility] 2023-11-01 13:02:00 2023-11-01 14:34:00 Emergency X Ella GONZALEZ [facility] ERT [id number] [facility] 2023-11-01 13:02:00 2023-11-01 14:34:00 Emergency Ella Gonzalez [facility] 1..840.114 350.1.13.10 [id number] [id number] [facility] 2023-10-02 11:59:00 2023-10-02 12:42:00 Emergency X DEB BURGOS [facility] ERT [id number] [facility] 2023-10-02 11:59:00 2023-10-02 12:42:00 Emergency Deb Burgos [facility] [id number] 350.1.13.10 [id number] [id number] [facility] 2023-09-28 18:19:00 2023-09-28 19:26:00 Emergency X DYANA JORGENSEN [facility] ERT [id number] [facility] 2023-09-28 18:19:00 2023-09-28 19:26:00 Emergency Dyana Jorgensen [facility] [id number] 350.1.13.10 4.2.7.2.686 [id number] [facility] 2023-09-28 00:00:00 2023-09-28 00:00:00 Orders Only Doctor Unassigned, [place] [facility] 1.2.840.114 350.1.13.10 4.2.7.2.686 [id number] [facility] 2022-06-24 08:00:00 2022-06-24 08:30:00 Office Visit Fanta Hernandez [facility] [id number] [id number] [id number] [facility] 2022-06-20 00:00:00 2022-06-20 00:00:00 Outpatient [facility] [id number] [facility] 2022-06-06 12:34:00 2022-06-06 13:23:00 Emergency DANIEL PARKER [facility] ERT [id number] [facility] 2022-06-06 12:34:00 2022-06-06 13:23:00 Emergency [place] [facility] 1.2.840.114 350.1.13.10 4.2.7.2.686 [id number] [facility] 2022-06-03 00:00:00 2022-06-04 22:29:00 Emergency [facility] [id number] [id number] [id number] [facility] 2022-06-03 00:00:00 2022-06-04 22:29:00 Emergency [facility] [id number] [facility] 2022-06-03 23:37:47 2022-06-03 23:59:00 Outpatient [facility] [id number] [facility] 2022-06-03 21:28:26 2022-06-03 23:36:00 Outpatient [facility] [id number] [facility] 2022-05-23 13:09:00 2022-06-03 18:30:00 Hospital Encounter Jose F Reyes David S [facility] [id number] [id number] .[id number] [facility] 2022-05-30 16:04:37 2022-05-30 16:04:39 Inpatient [facility] [id number] [facility] 2022-05-23 13:09:00 2022-05-23 13:09:00 Inpatient 1 LUPE BURCH [facility] [id number] [facility] 2022-05-22 19:04:00 2022-05-22 20:39:00 Emergency Kalina Meraz [facility] 1.2.840.114 350.1.13.43 .[id number] [facility] 2022-05-19 14:06:00 2022-05-19 19:49:00 Emergency Daniel Petit [facility] 1.2.840.114 [id number] .[id number] [facility] 2022-05-19 14:06:00 2022-05-19 19:49:00 Emergency 1 DANIEL PETIT [facility] [id number] [facility] 2022-05-19 16:50:11 2022-05-19 17:04:43 Emergency [facility] [id number] [facility] 2022-05-18 10:13:00 2022-05-19 10:30:00 Inpatient [facility] [id number] [facility] 2022-05-11 22:33:18 2022-05-18 09:43:00 Inpatient KERLINE OMER [facility] [id number] [facility] 2022-05-11 19:53:00 2022-05-11 21:53:00 Emergency Daniel Petit [facility] [id number] [facility] 2022-05-11 19:53:00 2022-05-11 21:53:00 Emergency Daniel Petit [facility] [id number] [facility] 2022-05-11 16:54:18 2022-05-11 17:05:03 Emergency [facility] [id number] [facility] 2022-05-11 16:05:00 2022-05-11 16:05:00 Emergency 1 [facility] [id number] [facility] 2021-01-30 16:48:00 2021-01-30 23:59:00 Emergency Shy Martin [facility] [id number] [facility] 2021-01-30 16:48:00 2021-01-30 16:48:00 Emergency X SHY MARTIN [facility] ERT [id number] [facility] 2021-01-30 00:00:00 2021-01-30 00:00:00 Orders Only Doctor Unassigned, [place] [facility] 1..840.114 350.1.13.10 [id number] [facility] 2020-03-03 09:37:00 2020-03-03 09:37:00 Emergency X [facility] ERT [id number] [facility] Results Test Description Test Time Test Comments Results Result Co mments Source [facility] Tctswqa6459-27-73 11:04:16* Test Item Value Reference Range Interpretation Comme nts AFB Culture (test code = 543-9) No acid fast bacilli isolated in 6 weeks AFB Stain (test code = 676-7) No acid fast bacilli seen TRCAY (test code = TRACY) Reference value: N o acid fast bacilli [facility] Mxwdcjd7224-10-22 11:04:16* Test Item Value Reference Range Interpretation Comme nts AFB Culture (test code = 543-9) No acid fast bacilli isolated in 6 weeks AFB Stain (test code = 676-7) No acid fast bacilli seen TRACY (test code = TRACY) Reference value: N o acid fast bacilli isolated [facility] Ehcdxqb4466-39-76 21:02:46* Test Item Value Reference Range Interpretation Comme nts AFB Culture (test code = 543-9) No acid fast bacilli isolated in 6 weeks AFB Stain (test code = 676-7) No acid fast bacilli seen TRACY (test code = TRACY) Reference value: N o acid fast bacilli isolated [facility] Xqhulrq1458-05-96 21:02:45* Test Item Value Reference Range Interpretation Comme nts AFB Culture (test code = 543-9) No acid fast bacilli isolated in 6 weeks AFB Stain (test code = 676-7) No acid fast bacilli seen TRACY (test code = TRACY) Reference value: N o acid fast bacilli isolated [facility] & Zghblzj7220-68-74 20:02:40* Test Item Value Reference Range Interpretation Comme nts AFB Culture (test code = 543-9) No acid fast bacilli isolated in 6 weeks AFB Stain (test code = 676-7) No acid fast bacilli seen TRACY (test code = TRACY) Reference value: N o acid fast bacilli isolated [facility] Hlwlekz3389-63-28 19:03:24* Test Item Value Reference Range Interpretation Comme nts Fungus Culture (test code = 580-1) No fungus isolated in 4 weeks Fungus Stain (test code = 658-5) No fungal elements seen TRACY (test code = TRACY) Reference value: N o fungus isolated [facility] Eyycwve6705-02-07 19:03:24* Test Item Value Reference Range Interpretation Comme nts Fungus Culture (test code = 580-1) No fungus isolated in 4 weeks Fungus Stain (test code = 658-5) No fungal elements seen TRACY (test code = TRACY) Reference value: N o fungus isolated [facility] & Dagelzg3655-92-28 19:03:24* Test Item Value Reference Range Interpretation Comme nts Fungus Culture (test code = 580-1) No fungus isolated in 4 weeks Fungus Stain (test code = 658-5) No fungal elements seen TRACY (test code = TRACY) Reference value: N o fungus isolated [facility] & Lsmwvut6212-33-51 05:04:44* Test Item Value Reference Range Interpretation Comme nts Fungus Culture (test code = 580-1) No fungus isolated in 4 weeks Fungus Stain (test code = 658-5) No fungal elements seen TRACY (test code = TRACY) Reference value: N o fungus isolated [facility] & Uxrlbnt4446-86-79 05:04:43* Test Item Value Reference Range Interpretation Comme nts Fungus Culture (test code = 580-1) No fungus isolated in 4 weeks Fungus Stain (test code = 658-5) No fungal elements seen TRACY (test code = TRACY) Reference value: N o fungus isolated [facility] & Ptrwpwr6873-74-67 04:04:04* Test Item Value Reference Range Interpretation Comme nts Fungus Culture (test code = 580-1) No fungus isolated in 4 weeks Fungus Stain (test code = 658-5) No fungal elements seen TRACY (test code = TRACY) Reference value: N o fungus isolated [facility] Tohqzjw5028-12-06 06:33:06* Test Item Value Reference Range Interpretation Comme nts Anaerobe Culture (test code = 635-3) No anaerobes isolated in 5 days TRACY (test code = TRACY) Reference value: N o anaerobes isolated [facility]2022-09-05 06:33:06* Test Item Value Reference Range Interpretation Comme nts Anaerobe Culture (test code = 635-3) No anaerobes isolated in 5 days TRACY (test code = TRACY) Reference value: N o anaerobes isolated [facility]2022-09-05 06:33:06* Test Item Value Reference Range Interpretation Comme nts Anaerobe Culture (test code = 635-3) No anaerobes isolated in 5 days TRACY (test code = TRACY) Reference value: N o anaerobes isolated [facility]2022-09-05 06:33:06* Test Item Value Reference Range Interpretation Comme nts Anaerobe Culture (test code = 635-3) No anaerobes isolated in 5 days TRACY (test code = TRACY) Reference value: N o anaerobes isolated [facility] Gram Dylny6493-77-13 08:20:27* Test Item Value Reference Range Interpretation [...] the reference value is considered "No growth". [facility]cess [facility] & Gram Srtkh9943-71-93 08:20:27* Test Item Value Reference Range Interpretation [...] the reference value is considered "No growth". [facility]cess [facility] & Gram Azlkm3931-14-08 08:20:27* Test Item Value Reference Range Interpretation [...] the reference value is considered "No growth". [facility] & Gram Cwqpw4600-96-85 08:20:27* Test Item Value Reference Range Interpretation [...] reference value is considered "No growth". [facility]/Abscess Culture & Gram Gepsd6953-30-73 10:37:20* Test Item Value Reference Range Interpretation Comme nts Wound Culture (test code = 6463-4) 1+ Acid fast bacilli AA REFER TO [id number] Gram Stain (test code = 664-3) No organisms seen TRACY (test code = TRACY) Reference value: Non-sterile sites may be contaminated with esperanza that is considered normal or otherwise not clinically relevant. As appropriate, normal results will indicate the presence or absence of such esperanza. Otherwise, the reference value is considered "No growth". Lab Interpretation (test code = 20060-8) Abnormal [facility] Uwpf4193-27-79 10:37:20* Test Item Value Reference Range Interpretation Comme nts Bacteria Spec Cult (test code = 6463-4) ACID-FAST BACILLUS AA 1+ Acid fast bacilliREFER TO [id number] Reference value: Non-sterile sites may be contaminated [...] 6463-4) Acid fast bacilli AA REFER TO [id number] Gram Stain (test code = 664-3) No organisms seen TRACY (test code = TRACY) Reference value: Non-sterile sites may be contaminated with esperanza that is considered normal or otherwise not clinically relevant. As appropriate, normal results will indicate the presence or absence of such esperanza. Otherwise, the reference value is considered "No growth". Lab Interpretation (test code = 07358-6) Abnormal [facility] Ymht8789-05-89 10:36:38* Test Item Value Reference Range Interpretation Comme nts Bacteria Spec Cult (test code = 6463-4) ACID-FAST BACILLUS AA Acid fast bacilliREFER TO [id number] Reference value: Non-sterile sites may be contaminated [...] 6463-4) Acid fast bacilli AA REFER TO [id number] Gram Stain (test code = 664-3) No organisms seen TRACY (test code = TRACY) Reference value: Non-sterile sites may be contaminated with esperanza that is considered normal or otherwise not clinically relevant. As appropriate, normal results will indicate the presence or absence of such esperanza. Otherwise, the reference value is considered "No growth". Lab Interpretation (test code = 59865-1) [facility]normal [facility] Dvzr5045-89-08 10:35:39* Test Item Value Reference Range Interpretation Comme nts Bacteria Spec Cult (test code = 6463-4) ACID-FAST BACILLUS AA Acid fast bacilliREFER TO [id number] Reference value: Non-sterile sites may be contaminated with esperanza that is considered normal or otherwise not clinically relevant. As appropriate, normal results will indicate the presence or absence of such esperanza. Otherwise, the reference value is considered "No growth".[facility] Iiyhhyn0487-14-00 09:36:58 * Test Item Value Reference Range Interpretation Comme [facility] Anaerobe Culture (test code = 635-3) No anaerobes isolated in 5 days TRACY (test code = TRACY) Reference value: N o anaerobes isolated [facility] Iljthcm1722-69-78 09:36:11* Test Item Value Reference Range Interpretation Comme [facility] Anaerobe Culture (test code = 635-3) No anaerobes isolated in 5 days TRACY (test code = TRACY) Reference value: N o anaerobes isolated [facility] Wokofyd4109-18-51 09:35:49* Test Item Value Reference Range Interpretation Comme [facility] Anaerobe Culture (test code = 635-3) No anaerobes isolated in 5 days TRACY (test code = TRACY) Reference value: N o anaerobes isolated [facility] GLUCOSE POC docked cbuyxk4478-98-77 08:05:41* Test Item Value Reference Range Interpretation Comme [facility] Glucose POC (test code = 65743952) 107 mg/dL 74-106 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 Lab Interpretation (test code = 66593-8) Abnormal [facility] GLUCOSE POC docked svenky5928-60-56 08:05:41* Test Item Value Reference Range Interpretation Comme nts Glucose POC (test code = 95067162) 107 mg/dL 74-106 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 Lab Interpretation (test code = 68622-7) Abnormal [facility] GLU[facility]SE POC docked nmfzks4985-99-77 08:05:41* Test Item Value Reference Range Interpretation Comme nts Glucose POC (test code = 05179232) 107 mg/dL 74-106 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 Lab Interpretation (test code = 76778-1) Abnormal [facility] GLU[facility]SE POC docked nzyxie5828-17-20 08:05:41* Test Item Value Reference Range Interpretation Comme nts Glucose POC (test code = 20454039) 107 mg/dL 74-106 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 Lab Interpretation (test code = 02050-4) Abnormal [facility] GLU[facility]SE POC docked ekjzdo6745-23-16 16:50:48* Test Item Value Reference Range Interpretation Comme nts Glucose POC (test code = 08746732) 107 mg/dL 74-106 H Lab Interpretation (test cod e = 24801-4) Abnormal [facility] GLU[facility]SE POC docked anjzaw1212-07-96 11:46:44* Test Item Value Reference Range Interpretation Comme nts Glucose POC (test code = 12186741) 89 mg/dL 74-106 Lab Interpretation (test cod e = 60561-0) Normal [facility] GLU[facility]SE POC docked uemrmc0931-52-68 08:25:07* Test Item Value Reference Range Interpretation Comme nts Glucose POC (test code = 88451917) 83 mg/dL 74-106 Lab Interpretation (test cod e = 61429-5) Normal [facility] Yjxd9199-09-94 14:19:13* Test Item Value Reference Range Interpretation Comme nts Bacteria Spec Cult (test code = 6463-4) ACID-FAST BACILLUS AA 4+ Acid fast bacilli HHSHIV 1+2 Ab+HIV1 p24 Ag SerPl Ql [id number] 19:49:40* Test Item Value Reference Range Interpretation Comme nts HIV 1+2 Ab+HIV1 p24 Ag SerPl Ql IA (test code = 55697-7) NEGATIVE Negative HHSCoronavirus, CoVID-19, JTQ6240-08-97 16:40:22* Test Item Value Reference Range Interpretation Comments COVID-19 (SARS-COV-2) (test code = 03242-3) Not Detected Not Detected INTERPRETATION: No detectable [...] its performance characteristics were verified by the [facility] molecular diagnostics laboratory and is authorized for clinical diagnostic use. This laboratory is certified under the Clinical Laboratory Improvement Amendments (CLIA) as qualified to perform high complexity clinical laboratory testing. Lab Interpretation (test code = 91510-4) Normal [facility] Center[facility], CoVID-19, [id number] 16:40:22* Test Item Value Reference Range Interpretation Comments COVID-19 (SARS-COV-2) (test code = 92801-5) Not Detected Not Detected INTERPRETATION: No detectable [...] its performance characteristics were verified by the [facility] molecular diagnostics laboratory and is authorized for clinical diagnostic use. This laboratory is certified under the Clinical Laboratory Improvement Amendments (CLIA) as qualified to perform high complexity clinical laboratory testing. Lab Interpretation (test code = 76558-9) Normal [facility], CoVID-19, [id number] 16:40:22* Test Item Value Reference Range Interpretation Comments COVID-19 (SARS-COV-2) (test code = 48380-2) Not Detected Not Detected INTERPRETATION: No detectable [...] its performance characteristics were verified by the [facility] molecular diagnostics laboratory and is authorized for clinical diagnostic use. This laboratory is certified under the Clinical Laboratory Improvement Amendments (CLIA) as qualified to perform high complexity clinical laboratory testing. Lab Interpretation (test code = 74484-0) Normal [place] [facility]Coronavirus, CoVID-19, [id number] 16:40:22* Test Item Value Reference Range Interpretation Comments COVID-19 (SARS-COV-2) (test code = 34036-1) Not Detected Not Detected INTERPRETATION: No detectable [...] its performance characteristics were verified by the [facility] molecular diagnostics laboratory and is authorized for clinical diagnostic use. This laboratory is certified under the Clinical Laboratory Improvement Amendments (CLIA) as qualified to perform high complexity clinical laboratory testing. Lab Interpretation (test code = 95855-5) Normal [facility] CenterXqomzsLEJF-EyW-4 RNA Resp Ql YOKASTA+pxbsn6232-53-58 16:40:22* Test Item Value Reference Range Interpretation Comme nts Hospitalized? (test code = 60380-1) No ICU? (test code = 85549-1) No Symptomatic as defined by CDC? (test code = 71443-0) No Employed in Healthcare? (test code = 93313-4) Unknown Resident in a congregate care setting (including nursing homes, residential care for people with intellectual and developmental disabilities, psychiatric treatment facilities, group homes, board and care homes, homeless alf, foster care or other): (test code = 78118-6) Unknown SARS-CoV-2 RNA Resp Ql YOKASTA+probe (test code = 03161-1) NOT DETECTED Not Detected INTERPRETATION: No detectable [...] its performance characteristics were verified by the [facility] molecular diagnostics laboratory and is authorized for clinical diagnostic use. This laboratory is certified under the Clinical Laboratory Improvement Amendments(CLIA) as qualified to perform high complexity clinical laboratory testing.HHSHIV 1+2 Ab+HIV1 p24 Ag SerPl Ql [id number] 17:45:02* Test Item Value Reference Range Interpretation Comme nts HIV 1+2 Ab+HIV1 p24 Ag SerPl Ql IA (test code = 68487-3) NEGATIVE Negative FGCGTSYBXQPVI3797-58-49 23:16:25* Test Item Value Reference Range Interpretation Comme nts SALICYLATE (test code = 6700537623) <10 mg/L TRACY (test code = TRACY) Therapeutic Range: ? Analgesic and Antipyretic Use ? 20-100 mg/L ? ? Anti-Inflammatory Use ? 100-250 mg/L Toxic Range: ? Greater than 300 mg/L [facility] 23:16:15* Test Item Value Reference Range Interpretation Comme nts ALCOHOL (test code = 0059987744) <10 mg/dL TRACY (test code = TRACY) <10 Ozvhdcgx12-643 Toxic>100 Depression of PATIENT CARE PROVIDER>400 Fatalities Reported [facility] HospitalACETAMINOPHEN2021-05-01 23:16:10* Test Item Value Reference Range Interpretation Comme nts ACETAMINOP (test code = 8751629610) <10.0 10.0-30.0 L TRACY (test code = TRACY) Toxic: Greater chela n 200 ug/mL @ 4 hour post ingestion or greater than 50 ug/mL @ 12 hour post ingestion Lab Interpretation (test code = 10261-1) Abnormal [facility] Hospital[facility] Function Panel (ALB, T.PRO, BILI T, BU/BC, ALT, AST, ALK PHOS)2021-01-30 23:14:14* Test Item Value Reference Range Interpretation Comme nts TOTAL BILI (test code = 8905346573) 0.8 mg/dL 0.1-1.1 BILI UNCON (test code = 8010814955) 0.6 mg/dL 0.1-1.1 BILI CONJ (test code = 9676781150) 0.0 mg/dL 0.0-0.3 T PROTEIN (test code = 7582761688) 7.5 g/dL 6.3-8.2 ALBUMIN (test code = 8875452460) 4.8 g/dL 3.5-5.0 ALK PHOS (test code = 8438846617) 63 U/L 34-122 ALTv (test code = 1742-6) 33 U/L 5-50 AST(SGOT) (test code = 3446183812) 36 U/L 13-40 Lab Interpretation (test cod e = 99822-9) Normal [facility] (NA, K, CL, CO2, GLUCOSE, BUN, CREATININE, CA)2021-01-30 23:13:54* Test Item Value Reference Range Interpretation Comme nts NA (test code = 1244587031) 142 mmol/L 135-145 K (test code = 1867034351) 4.3 mmol/L 3.5-5.0 CL (test code = 6578513812) 105 mmol/L 98-108 CO2 TOTAL (test code = 2319936039) 25 mmol/L 23-31 AGAP (test code = 8760951115) 2-16 BUN (test code = 7203079685) 17 mg/dL 7-23 GLUCOSE (test code = 9266148179) 86 mg/dL 70-110 CREATININE (test code = 7816280392) 0.85 mg/dL 0.60-1.25 CALCIUM (test code = 2100445497) 9.9 mg/dL 8.6-10.6 eGFR (test code = 1870226941) mL/min/1.73m2 TRACY (test code = TRACY) Association [...] or urine or abnormalities in imaging tests). [facility] (IMMUNOASSAY) - COMPREHENSIVE DRUG AMTCKJ2312-20-80 23:05:57* Test Item Value Reference Range Interpretation Comme nts AMPHET (test code = 8827892260) Presumptive Positive Negative A CHACORTA U (test code = 3804704273) Negative Negative BENZO U (test code = 3169275113) Presumptive Positive Negative A Cocaine Metabolite (test code = 8708675407) Negative Negative METHADONE (test code = 9222244208) Negative Negative OPIATES (test code = 9545093186) Presumptive Positive Negative A PCP (test code = 1509104350) Negative Negative THC (test code = 1281149817) Presumptive Positive Negative A TRACY (test code = TARCY) Urine Drug Cutoff Ranges Cocaine: ? 150 ng/mLBenzodiazepines: ? ? 200 ng/mLMethadone: ? 300 ng/mLAmphetamine: ? 1,000 ng/mLOpiates: ? 300 ng/mLCannabinoids: ?50 ng/mLPhencyclidine: ? ? ? 25 ng/mLBarbiturates: ?200 ng/mL The results are to be used only for medical (i.e., treatment) purposes. Unconfirmed screening results must not be used for non-medical purposes (e.g., employment testing, legal testing). Lab Interpretation (test code = 94032-4) Abnormal [facility]COVID[facility] (ID NOW RAPID TESTING)2021-01-30 22:34:55* Test Item Value Reference Range Interpretation Comme nts SARS-CoV-2 Rapid ID NOW (test code = 14976-7) Not Detected Not Detected TRACY (test code = TRACY) ID NOW COVID-19 As say is an isothermal nucleic acid amplification test intended for the qualitative detection of nucleic acid from SARS-CoV-2 viral RNA in nasopharyngeal (PATIENT CARRIER) specimens. It is used under Emergency Use [...] clinically indicated. Lab Interpretation (test code = 47079-0) Normal [facility] HospitalUrinalysis2021-05-01 22:30:19* Test Item Value Reference Range Interpretation Comme nts APPEARANCE (test code = 9529748734) Clear Clear COLOR (test code = 6148422672) Yellow Yellow PH (test code = 7042373340) 4.8-8.0 SP GRAVITY (test code = 0820159704) 1.003-1.030 GLU U QUAL (test code = 6323006014) Normal Normal BLOOD (test code = 9352899471) Negative Negative KETONES (test code = 2469800737) Negative Negative PROTEIN (test code = 2887-8) Negative Negative UROBILIN (test code = 9002923102) 2.0 mg/dL Normal A BILIRUBIN (test code = 7991250586) Negative Negative NITRITE (test code = 9713892174) Negative Negative LEUK DIONE (test code = 7940154820) Negative Negative RBC/HPF (test code = 6601897359) See_Comment [Automated messa ge] The system which generated this result transmitted reference range: 0 - 3 HPF. The reference range was not used to interpret this result as normal/abnormal. WBC/HPF (test code = 7288211556) <1 See_Comment [Automated messa ge] The system which generated this result transmitted reference range: 0 - 5 HPF. The reference range was not used to interpret this result as normal/abnormal. BACTERIA (test code = 9681791829) Negative Negative SQ EPITH (test code = 6652903851) <1 HPF Lab Interpretation (test code = 20668-6) Abnormal [facility] with Snajgwufavqz0586-22-98 22:19:35* Test Item Value Reference Range Interpretation [...] 34.6 g/dL 31.2-35.0 RDW-SD (test code = 03835-3) 42.8 fL 38.5-51.6 RDW-CV (test code = 788-0) 13.3 % 12.1-15.4 PLT (test code = 777-3) See_Comment H [Automated messa ge] The system which generated this result transmitted reference range: 150 - 328 10*3/?L. The reference range was not used to interpret this result as normal/abnormal. MPV (test code = 96313-7) 9.9 fL 9.8-13.0 NRBC/100 WBC (test code = 0147291407) See_Comment [Automated [employer]] The system which generated this result transmitted reference range: 0.0 - 10.0 /100 WBCs. The reference range was not used to interpret this result as normal/abnormal. NRBC x10^3 (test code = 1201445717) <0.01 See_Comment [Automated messa ge] The system which generated this result transmitted reference range: 10*3/?L. The reference range was not used to interpret this result as normal/abnormal. GRAN MAT (NEUT) % (test code = 770-8) 79.2 % IMM GRAN % (test code = 4720571004) 0.50 % LYMPH % (test code = 736-9) 14.8 % MONO % (test code = 5905-5) 4.9 % EOS % (test code = 713-8) 0.2 % BASO % (test code = 706-2) 0.4 % GRAN MAT x10^3(ANC) (test code = 2610800840) 9.77 10*3/uL 1.99-6.95 H IMM GRAN x10^3 (test code = 2377228360) 0.06 10*3/uL 0.00-0.06 LYMPH x10^3 (test code = 731-0) 1.82 10*3/uL 1.09-3.23 MONO x10^3 (test code = 742-7) 0.60 10*3/uL 0.36-1.02 EOS x10^3 (test code = 711-2) 0.03 10*3/uL 0.06-0.53 L BASO x10^3 (test code = 704-7) 0.05 10*3/uL 0.01-0.09 Lab Interpretation (test code = 56590-5) Abnormal [facility] [id number] 20:48:00* Test Item Value Reference Range Interpretation Comme nts COVID 19 INHOUSE AG (test co de = [id number]) NEGATIVE URINALYSIS TWRYTUOR9636-50-68 16:11:00* Test Item Value Reference Range Interpretation [...] Urine Source? Clean CatchDRUGS OF ABUSE SCREEN [id number] 16:11:00* Test Item Value Reference Range Interpretation [...] (test code = AMPHETURN) NEGATIVE See_Comment [Automated [employer] hay] The system which generated this result transmitted reference range: <1000 ng/mL. The reference range was not used to interpret this result as normal/abnormal. URN BARBITURATE (test code = BARBITURN) NEGATIVE See_Comment [Automated [employer] hay] The system which generated this result [...] (test code = OPIATURN) NEGATIVE See_Comment [Automated [employer] ge] The system which generated this result [...] (test code = METHAURN) NEGATIVE See_Comment [Automated [employer] ge] The system which generated this result transmitted reference range: <300 ng/mL. The reference range was not used to interpret this result as normal/abnormal. Urine Source? Clean CatchURINALYSIS [id number] 15:45:00* Test Item Value Reference Range Interpretation [...] Urine Source? Clean CatchDRUGS OF ABUSE SCREEN [id number] 15:45:00* Test Item Value Reference Range Interpretation Comme nts URN COCAINE (test code = COCAURN) NEGATIVE See_Comment [Automated [employer] ge] The system which generated this result transmitted reference range: <300 ng/mL. The reference range was not used to interpret this result as normal/abnormal. URN CANNABINOIDS (test code = CANNABURN) NEGATIVE See_Comment [Automated [employer] hay] The system which generated this result transmitted reference range: <50 ng/mL. The reference range was not used to interpret this result as normal/abnormal. URN AMPHETAMINE (test code = AMPHETURN) NEGATIVE See_Comment [Automated [employer] hay] The system which generated this result transmitted reference range: <1000 ng/mL. The reference range was not used to interpret this result as normal/abnormal. URN BARBITURATE (test code = BARBITURN) NEGATIVE See_Comment [Automated [employer] hay] The system which generated this result [...] OPIATES (test code = OPIATURN) See_Comment [Automated [employer] ge] The system which generated this result [...] result as normal/abnormal. Urine Source? Clean CatchURINALYSIS [id number] 14:21:00* Test Item Value Reference Range Interpretation [...] Urine Source? Clean CatchDRUGS OF ABUSE SCREEN [id number] 14:21:00* Test Item Value Reference Range Interpretation [...] result as normal/abnormal. Urine Source? Clean CatchURINALYSIS [id number] 14:18:00* Test Item Value Reference Range Interpretation [...] Urine Source? Clean CatchDRUGS OF ABUSE SCREEN [id number] 14:18:00* Test Item Value Reference Range Interpretation Comme nts URN COCAINE (test code = COCAURN) See_Comment [Automated [employer] ge] The system which generated this result transmitted reference range: <300 ng/mL. The reference range was not used to interpret this result as normal/abnormal. URN CANNABINOIDS (test code = CANNABURN) See_Comment [Automated [employer] hay] The system which generated this result [...] BARBITURATE (test code = BARBITURN) See_Comment [Automated [employer] ge] The system which generated this result [...] OPIATES (test code = OPIATURN) See_Comment [Automated [employer] ge] The system which generated this result [...] as normal/abnormal. Urine Source? Clean CatchBASIC METABOLIC [id number] 12:13:00* Test Item Value Reference Range Interpretation [...] CA) 9.9 mg/dL 8.5-10.1 N HEPATIC FUNCTION [id number] 12:13:00* Test Item Value Reference Range Interpretation [...] reference range due to change in reagent. [id number] 12:13:00* Test Item Value Reference Range Interpretation Comme nts ACETAMINOPHEN (test code = ACET) < 10 mcg/mL 10-30 L A RANGE OF 10-30 mcg/mL IS A THERAPEUTIC RANGE. TOXIC CONCENTRATIONS: >150 mcg/mL AT 4 HOURS AFTER INGESTION >= 50 mcg/mL AT 12 HOURS AFTER INGESTION [id number] 12:13:00* Test Item Value Reference Range Interpretation Comme nts SALICYLATE (test code = RENALDO) < 3.0 mg/dL 2.8-20.0 N [id number] 12:13:00* Test Item Value Reference Range Interpretation [...] ANADDITIONAL CHARGE TO THE PATIENT. CBC W/O [id number] 11:49:00* Test Item Value Reference Range Interpretation [...] 9.7 fL 6.7-11.0 N COVID 19 INHOUSE [id number] 00:12:00* Test Item Value Reference Range Interpretation Comme nts COVID 19 INHOUSE AG (test co de = [id number]) NEGATIVE URINALYSIS [id number] 20:58:00* Test Item Value Reference Range Interpretation [...] Urine Source? Clean CatchDRUGS OF ABUSE SCREEN [id number] 20:58:00* Test Item Value Reference Range Interpretation [...] as normal/abnormal. Urine Source? Clean CatchBASIC METABOLIC [id number] 20:58:00* Test Item Value Reference Range Interpretation [...] CA) 8.8 mg/dL 8.5-10.1 N HEPATIC FUNCTION [id number] 20:58:00* Test Item Value Reference Range Interpretation [...] reference range due to change in reagent. [id number] 20:58:00* Test Item Value Reference Range Interpretation Comme nts TROPONIN-I (test code = TROPI) < 0.006 ng/mL 0-0.045 N [id number] 20:58:00* Test Item Value Reference Range Interpretation Comme nts ACETAMINOPHEN (test code = ACET) < 10 mcg/mL 10-30 L A RANGE OF 10-30 mcg/mL IS A THERAPEUTIC RANGE. TOXIC CONCENTRATIONS: >150 mcg/mL AT 4 HOURS AFTER INGESTION >= 50 mcg/mL AT 12 HOURS AFTER INGESTION [id number] 20:58:00* Test Item Value Reference Range Interpretation Comme nts SALICYLATE (test code = RENALDO) < 3.0 mg/dL 2.8-20.0 N [id number] 20:58:00* Test Item Value Reference Range Interpretation [...] TO THE PATIENT. - CT HEAD/BRAIN W/O [id number] 20:52:00 [facility])Name: TEJ GUADALUPE : 1985 Sex: M Name: TEJ GUADALUPE [facility] : 1985 Age/S: 35 / M [address] [facility] Unit #: [id number] Loc: DEISY Saenz [address] Phys: Shaggy Morrow MD Acct: [id number] Dis Date: Status: PRE ER PHONE #: [phone] Exam Date: 12/13/20202017 FAX #: [phone] Reason: CONFUSION EXAMS: CPT CODE: [id number] CT HEAD/BRAIN W/O CONT 01892 HISTORY: CONFUSION TECHNIQUE: Noncontrast 2.5 mm axial [...] disease. No hydrocephalus.. No extra-axial fluid collection. Visualizedparanasal sinuses are clear. Mastoid air cells and middle ear cavities are clear. Orbital contents are unremarkable. IMPRESSION: Negative CT head. Location: RR at 2051 Reported and signed by: Tano Gauthier MD CC: Shaggy Morrow MD Technologist:Camilo Staley, RT(R)(CT) CTDI: DLP: Trnscb Date/Time: 12/13/2020 (2051) t.SDR.RR31 Orig Print D/T: S: 12/13/2020 (2054) PAGE 1 Signed Report URINALYSIS [id number] 20:39:00* Test Item Value Reference Range Interpretation [...] Urine Source? Clean CatchDRUGS OF ABUSE SCREEN [id number] 20:39:00* Test Item Value Reference Range Interpretation Comme nts URN COCAINE (test code = COCAURN) See_Comment [Automated [employer]] The system which generated this result transmitted reference range: <300 ng/mL. The reference range was not used to interpret this result as normal/abnormal. URN CANNABINOIDS (test code = CANNABURN) See_Comment [Automated [employer] hay] The system which generated this result transmitted reference range: <50 ng/mL. The reference range was not used to interpret this result as normal/abnormal. URN AMPHETAMINE (test code = AMPHETURN) See_Comment [Automated [employer] ge] The system which generated this result transmitted reference range: <1000 ng/mL. The reference range was not used to interpret this result as normal/abnormal. URN BARBITURATE (test code = BARBITURN) See_Comment [Automated [employer] ge] The system which generated this result [...] OPIATES (test code = OPIATURN) See_Comment [Automated [employer] ge] The system which generated this result [...] METHADONE (test code = METHAURN) See_Comment [Automated [employer] ge] The system which generated this result transmitted reference range: <300 ng/mL. The reference range was not used to interpret this result as normal/abnormal. Urine Source? Clean CatchURINALYSIS [id number] 20:29:00* Test Item Value Reference Range Interpretation [...] Urine Source? Clean CatchDRUGS OF ABUSE SCREEN [id number] 20:29:00* Test Item Value Reference Range Interpretation Comme nts URN COCAINE (test code = COCAURN) See_Comment [Automated [employer] ge] The system which generated this result transmitted reference range: <300 ng/mL. The reference range was not used to interpret this result as normal/abnormal. URN CANNABINOIDS (test code = CANNABURN) See_Comment [Automated [employer] hay] The system which generated this result [...] as normal/abnormal. Urine Source? [facility]SA[facility] W/O [id number] 20:22:00* Test Item Value Reference Range Interpretation [...] Notes Date/Time Note Provider Source 2022-06-01 16:47:23 nWmuz+WT/B9rMZzLH/Ac tGSpHtTF+dP lt/s6zJ+1qWJ+4JJnt3dlImorPIhjVF /j1762-79-52H61:47:23Associated Order(s): CONSULT TO PHARMACY-AMINOGLYCOSIDESFormatt ing of this [...] with any questions. Sil Soliz, Pharm.D., BCIDPClinical Flipping Machine Operator - Infectious DiseasesCisco: [id number] signed by Sil Soliz [facility] at 06/01/2022 4:48 PM HVE32739-4Mcwzwix ohmgLS3254-23-13Z41:48:27Consul t noteTXT1.2.840.991529.1.13.43.2 .7.2.385941|[id number] for patient vibx46897-8Zgoqzax fqniKR870207680Kignigz Ayn Finch [facility] ByswTxyawlxMubbvgiRUSA418260408 9BYKH5263-72-68F90:48:271.2.840 .403177.1.72.3.15|1.2.840.18544 0.1.13.43.2.7.2.727879_[id number] 31 Sil Jelani Soliz [facility] 2022-05-31 16:00:25 mmEaDTvr2FQixj08+jXs uNnTSFfyR4O r3AhEJwinXgh0PEu5zG/6OSpRxHOyvB gv6139-21-20K42:00:25 Pharmacy Aminoglycoside Monitoring NoteIndication: NTM SSTI/abscessDay of therapy: 7 Target peak: 35-45 mcg/ml for NTMTarget trough: <4 mcg/mlConcomitant antibiotics: Azithromycin, tigecyclineAllergies: No known allergies Pertinent Objective Labs: Date Dose/frequency concentration (peak/trough/random) 05/26 - current 800mg q24h 5.9 (9h random) - 05/2520.0 (2.5hr post-dose) - /265.4 (8-hr post-dose) - 05/28 Microbiology:05/19: Wound - [...] with any questions. Sil Soliz, Pharm.D., BCIDPClinical Flipping Machine Operator - Infectious DiseasesCisco: [id number] signed by Sil Soliz [facility] at 05/31/2022 4:00 PM YTM96274-9Yjwghbs kmkuSQ8696-99-82Q63:00:59Consul t noteTXT1.2.840.404486.1.13.43.2 .7.2.899894|[id number] for patient ujsx90658-9Fzffjsz noteLNAvita Health System2525 [facility] HospitalPuzsXljtsgmJgeeqyaLHXA501932349 8AUTP0559-79-96O83:00:591.2.840 .542748.1.72.3.15|1.2.840.42212 0.1.13.43.2.7.2.727879_[id number] 47 [facility] 2022-05-30 14:28:02 J+2a4zAEAbAw7lIu0zTc WSggGQ5dyM5 3tJSzBpOgbKRSjiiHmJhmSnCLiPXgAI Vg9873-60-62S77:28:02 Pharmacy Aminoglycoside Monitoring NoteIndication: NTM SSTI/abscessDay of therapy: 6 Target peak: 35-45 mcg/ml for NTMTarget trough: <4 mcg/mlConcomitant antibiotics: Azithromycin, tigecyclineAllergies: No known allergies Pertinent Objective Labs: Date Dose/frequency concentration (peak/trough/random) 05/26 - current 800mg q24h 5.9 (9h random) - 05/2520.0 (2.5hr post-dose) - /265.4 (8-hr post-dose) - 05/28 Microbiology:05/19: Wound - [...] with any questions. Sil Soliz, Pharm.D., BCIDPClinical Flipping Machine Operator - Infectious DiseasesCisco: [id number] signed by Sil Soliz [facility] at 05/30/2022 2:36 PM MNF72406-7Ttbjizr svlrAG9557-62-70D50:36:01Consul t noteTXT1.2.840.226905.1.13.43.2 .7.2.077899|[id number] for patient wtrn00244-8Kwwnllv [facility] [place], [place] [address]RkvqLdzcqicDvnixbqLMTD754157951 5EENG6738-37-82V37:36:011.2.840 .069690.1.72.3.15|1.2.840.99848 0.1.13.43.2.7.2.727879_[id number] [address] [place] [address] 2022-05-29 12:08:26 MpzhUkT+hCs0kDCq6KzW nDrFs3UsL50 LXRA90LlxOfmbyAynPqD32yFpOtB+Dy Qy6221-54-94K11:08:26 Pharmacy Aminoglycoside Monitoring NoteIndication: NTM SSTI/abscessDay of [...] with any questions. Mariam Lepe [facility].BCOPClinical Flipping Machine Operator Hematology/OncologyCisco : [phone] signed by Mariam Lepe [facility] at 05/29/2022 12:09 PM AUD68990-7Psgefyi rpdoQD9152-55-70A00:09:49Consul t noteTXT1.2.840.344633.1.13.43.2 .7.2.586539|6929815890FMUtufliz for patient djfe83588-7Qihrbns hwpnEK52451949Kyraxjk [address] Kennedy StreetTXTX[address] 1LDAA0512-76-94X93:09:491.2.840 .115565.1.72.3.15|1.2.840.11281 0.1.13.43.2.7.2.727879_[id number] 42 Mariam [facility] 2022-05-28 10:27:53 CiCDJnTJGN/xrn3462t8 pPtzqG5WhRe IACStae9qxepoSdAArc8txxt6BMvnq8 dz2225-29-26E90:27:53 Pharmacy Aminoglycoside Monitoring NoteIndication: NTM SSTI/abscessDay of [...] with any questions. Mariam Lepe [facility].BCOPClinical Flipping Machine Operator Hematology/OncologyCisco : [phone] signed by Mariam Lepe RP at 05/28/2022 10:29 AM XFX27681-0Ijqazfk nyixZT2701-37-38A16:29:36Consul t noteTXT1.2.840.063754.1.13.43.2 .7.2.530324|3260999736CAVgseyqz for patient ulpq34936-3Rlmffzc [facility]25[address] [facility] HospitalIdetTxuadwyXsfegpwGHCM998835704 3TNGS4630-46-70I40:29:361.2.840 .954854.1.72.3.15|1.2.840.96664 0.1.13.43.2.7.2.727879_[id number] [address] [place] [address] 2022-05-27 12:23:47 NKhqtD7p0ma2obGdiLMu i1WVvoEOUUT 8uDVZbHrp4JAh6WT3V9LUBTEsZWRn8M lk9858-25-81L73:23:47 Pharmacy Aminoglycoside Monitoring NoteIndication: NTM SSTI/abscessDay of [...] us with any questions. Ruchi Olsen, PharmD, [facility]OSPITALCPPhone: [phone] signed by Ruchi OlsenST. [facility] at 05/27/2022 1:04 PM IWG34841-4Qskyhtm sknzEX2155-40-06Z91:04:50Consul t noteTXT1.2.840.640080.1.13.43.2 .7.2.093017|3779583646CBOfbowqp for patient gxjm19172-1Wxayzjv rzsgZC458838792Dtrf Sigmon [address]TXTX[address] 0WNWZ3174-41-73H76:04:501.2.840 .971505.1.72.3.15|1.2.840.54516 0.1.13.43.2.7.2.727879_[id number] 11 Ruchi Olsen [facility] 2022-05-26 09:18:39 03Y3y6/WZOAudXV8++ck 13NUwMhkYaI 3I3Net4Pew/keOPPwT5LmLfqs9J1KZC OC6020-76-40A15:18:39 Pharmacy Aminoglycoside Monitoring NoteIndication: NTM SSTI/abscessDay of therapy: 2 Target concentration: dosing per [place] nomogram, targeting goal peak ~25-45 mcg/mL, trough ~5 mcg/mL Concomitant antibiotics: Azithromycin, tigecyclineAllergies: No known allergies Pertinent Objective Labs: Date dose/frequency concentration (peak/trough/random) 05/26 800mg q24h 5.9 (9h random) Microbiology:pending Assessment:1. CrCl: >120,Scr/BUN stable, 2. Continues on amikacin 800mg (10mg/kg) q24h 3. Random 9h level obtained today demonstrates dose appropriate per [place] nomogramPlan: 1. Will Continue current dose2. Labs Ordered: will order 2 levels: 2-h and 8-h post dose levels to confirm Thank you for the opportunity to participate in the care of this patient. Please do not hesitate to contact us with any questions. Ruchi Olsen, PharmD, [facility]ITALCPPhone: [phone] signed by Ruchi Olsen [facility] at 05/26/2022 9:36 AM CVI79991-4Cjswjdn ebciYO7793-66-42N01:36:50Consul t noteTXT1.2.840.176066.1.13.43.2 .7.2.779436|0897525333FAJjffwwm for patient yfgy91780-2Zhjmcvp [facility]2525 [facility] HospitalYtloRwcutjdTtufrysJZQL845852952 3RKGP1753-94-89Z31:36:501.2.840 .794852.1.72.3.15|1.2.840.16074 0.1.13.43.2.7.2.727879_[id number] [address] [place] [address] 2022-05-25 08:07:02 RYWxkVL/K9IIUVo7q6de AUI2FkcPDkR QDoWoW/ZsUo7WQ9hq5tLmc1t0LtSngH eB0149-59-26N78:07:02Associated Order(s): IP CONSULT TO INFECTIOUS DISEASE Images [...] another attempt at antibiotics and I&D at [facility]. He came back with worsening lesions and was admitted for same. We are consulted for his cultures growing AFB 4+. 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 SUZIE: He lives in a house with his [...] homeless. He has not travelled outside of [place] recently and does not have any sick [...] and documented in the appropriate sections in [employer].Immunization history: There is no immunization history on [...] Data: All labs, images, and data reviewed. 74141-0Tnpjajc sazsTW3558-61-63K27:04:27Consul t noteTXT1.2.840.895562.1.13.43.2 .7.2.632159|8826047004IKUeelzwq for patient nbyr07176-8Ufwfduo [facility]2525 [facility] HospitalIyaqTsimqptRnsavsqEXVI088343791 0MQHD5737-84-88A98:04:271.2.840 .313119.1.72.3.15|1.2.840.89287 0.1.13.43.2.7.2.727879_[id number] 10 [facility] 2022-05-23 21:39:21 /1mczsxwhgtkH5zvgLqX tf4afwBDJbc C9bom1kmpgOn4gA8WiPcdiY6u5HMKz4 Ai7086-99-45I99:39:21Associated Order(s): IP CONSULT TO HAND SURGERY Plastic [...] to followChristopher Germán, MDPlastic and Reconstructive Surgery, IMH9DgzddzSutter Lakeside HospitalPager: [phone] 2021 9:39 PMSubjective: Chief Complaint: forearm painHistory [...] with no changes. No need to repeat 00890-2Favpjlc zkqfIV612490ChxascbxxtAdrian Anderson B1.2.840.647729.1.13.43.2.7.2.8 59518AfdmsveticNqujdYqiwn CMT9562-29-90T18:42:00Consult noteTXT1.2.840.827985.1.13.43.2 .7.2.796646|8826909277ZNFppjejf for patient cczp17381-6Fmdgaxl noteSt. Joseph's Medical Center2525 [facility] HospitalFwelThqiyvqLayvunkSWGU063908776 3PEFG7252-30-62L46:50:061.2.840 .096633.1.72.3.15|1.2.840.43442 0.1.13.43.2.7.2.727879_[id number] 43 [facility] History and Physical Notes Date/Time Note Provider Source 2022-05-23 22:01:59 4uLJ757ezP92ka5xoExn NuvsRLhHcGO 8CIEPFu6K4prO9pE0DGt1XLJ5i2vjNL QZ4887-85-29Q08:01:59 Medicine Team B Admission History & PhysicalAssessment/Plan:Tej [...] CODEEmergency Contact: Primary Emergency Contact: Lydia GUADALUPE, Ofnwr [facility] ZDD4OlxncpSutter Lakeside Hospital10:02 PM, 05/23/2022 Chief Complaint: forearm pain [...] Please see my separate note for my attestation.31615-3Rapiflc and physical xnizDE123779Mvxae, Vishal1.2.840.937718.1.13.43.2. 7.2.218324DdjvoLskkpuL, IA3695-35-94B37:10:26History and physical noteTXT1.2.840.226258.1.13.43.2 .7.2.231020|7058245447SCMqmwyzz for patient gnyx45553-9Uxpippn and physical noteLNInternal MedicineInternal MedicineAvita Health System2525 [facility] HospitalBexlIueqlfvXkkjexpCYVI293836145 5NUWZ2368-73-75N98:10:261.2.840 .937003.1.72.3.15|1.2.840.20571 0.1.13.43.2.7.2.727879_[id number] Internal Medicine [facility] Procedure Notes Date/Time Note Provider Source 2022-05-31 08:35:51 7oJDa18XP6uSdt5Z37iq pJH0SPT0ojU8mKupK 9r6zvQ26OME1JrejXA6Ud+Ls+X15134-67-40 T08:35:51Procedure(s): I& D OF ABSCESS WITH PACKING [...] no complicationsChristopher JUAN Dunlaplastic and Reconstructive Surgery, MIE1EwbpaoSutter Lakeside HospitalPager: [phone] 2021 8:36 AM 19572-3Nplvzcqbm wfhqBQ538251Bz, Jessie1.2.840.028006.1.13.43.2.7.2.83 7686RkMtzvadWJ8984-90-17R61:00:54Proc edgar noteTXT1.2.840.171639.1.13.43.2.7.2.7 24726|3258310331CPRzyfcaegw for patient knya43055-2Eimpymsnb noteLNAvita Health System2525 [facility] HospitalSheeLzdzegeGzxksauKQLO9347371842ESUI3 503-62-40G80:49:121.2.840.292127.1.72 .3.15|1.2.840.410331.1.13.43.2.7.2.72 7879_[id number] [facility] 2022-05-24 16:29:09 gqmkzR/+2dtjzRE4Idzt 0fFLswRhj7bssw6dd nTPTSiWprpP1mP+2s8P4j1YBqnS8240-49-08 T16:29:09Procedure(s): I& D OF ABSCESS WITH PACKING [...] 1Dressings: AppliedEstimated Blood Loss: MinimalSpecimens Collected: Culture y8Glkrldapwuemc: nonePrimary Proceduralist: MULU Carrilloupervising Physician: JUAN Andersonrocedure [...] the microbiology lab.JUAN Geelastic and Reconstructive Surgery, PYK6Miffwk[address] [place], [place] [address]Pager: [phone] 2021 4:30 PM 46524-9Mipwsknrj scezEK966529BrvxdughnaAdrian Anderson B1.2.840.043113.1.13.43.2.7.2.638248W DioniGeorge Regional HospitalKBY9058-34-84P23:42:01Procedure noteTXT1.2.840.543863.1.13.43.2.7.2.7 92781|8250900978NGTqoqzmmcl for patient aahy31100-9Tfsxzhppw noteLNAvita Health System2525 [facility] HospitalWpiaIeekvclMkfjzadDIRE7652338149IGOJ0 104-98-68F94:41:491.2.840.229688.1.72 .3.15|1.2.840.814965.1.13.43.2.7.2.72 7879_[id number] [facility] Notes Date/Time Note Provider Source 2023-11-01 14:19:23 XSAlRqP6/0jmIJvfAiyT5HMAXyesdUeOh3sfZY bjHB1DLaAGVS7cl2o2MFTBnsUK3106-02-11W2 4:19:23 Chief ComplaintPatient presents withAnxietyRefill RequestPast Medical [...] aware [place] [address]-4Kgtudxjam department FybzVW8451-39-99A45:20:13[facility] NoteTXT1.2.840.349882.1.13.104.2.7.2.7 94786|2405747213CVYvzqukjdx for patient hvfm80209-7EainFFPPAGACJTIQwwvzfmam C-CDA narrative miuj513516621Inwzfboe M Jordy MARTINI[address] StreetTXTX[address]US HWVJHQRATSNGTWIDUUVU2165-29-85P31:20:1 31.2.840.421086.1.72.3.15|1.2.840.1143 50.1.13.104.2.7.2.727879_[id number] Kelly Porter Jordy MARTINI [facility] 2023-11-01 13:00:35 uParyPKv/CerSDC8SG1R1U9gchB6BR5H3yqofB iln37iIMZRmhtxMYwluPV0csNy4911-65-10W5 3:00:35 Patient to ED for anxiety due to doesn't have any of his clonazepam 2mg tabs anymore. He recently lost his grandmother and grandfather and been taking more than he is supposed to. He has been in withdrawal for 5 days. 60146-3Mzittoitq department Triage ipstXL9272-24-39Q69:01:57[facility] department Triage noteTXT1.2.840.824963.1.13.104.2.7.2.7 35167|3404321376DRDbsqhwhpz for patient xluc27424-1Jlqzuzqum department NoteLNNARRATIVEFormatted C-CDA narrative yaqk820711422Tjwztnz D Wierzbicki RN[address] StreetTXTX[address]US CZYQMSMVKQYNKCREVTLW4216-95-66N14:01:5 71.2.840.222783.1.72.3.15|1.2.840.1143 50.1.13.104.2.7.2.727879_[id number] Chucky Hawkins RN [facility] 2023-10-02 12:30:00 1OjcdLbkEIbTMv4kbQBEcOxucnZ3dq3tP/4AnK h53kWnAu95xBBOUdTXvJMDU3Vg6071-03-63V2 2:30:00 Pt given printed and verbal discharge [...] with steady gait, in no apparent distress. 19699-5Fuwbxboda department PcqiSR2069-63-50S72:30:56Emergency department NoteTXT1.2.840.995196.1.13.104.2.7.2.7 44968|[id number] for patient sddx89930-3TwtyTLDTHHEULMSVjiishsvt C-CDA narrative [id number] Ruffin RN[address] IkphY[id number] EHLOLLSVPHJIRPGZHMWS4280-32-98L61:30:5 61.2.840.905288.1.72.3.15|1.2.840.1143 50.1.13.104.2.7.2.727879_[id number] Ayah Ruffin RN [facility] 2023-10-02 11:56:31 4CaUBorXoUehJs1MVnSz/9G6xZRQf6I28RZey7 JBy7IkXAgr6N+3xbcYVfxANYT/7049-12-84R7 1:56:31 Patient states: "I came here yesterday and checked in but I left. I'm detoxing off klonopin. I wanted to know if yall can refill it. My doctor doesn't do klonopin anymore." 62703-2Rteqessrv department Triage klsxPD9594-64-69J84:57:33[facility] Triage noteTXT1.2.840.896873.1.13.104.2.7.2.7 58831|[id number] for patient ptfh63195-7Dnaxazsyn department NoteLNNARRATIVEFormatted C-CDA narrative [id number] M Cruz RN[address] Lj[id number] FTALJVZMCMEILCTWHLPO4783-40-47R08:57:3 31.2.840.831965.1.72.3.15|1.2.840.1143 50.1.13.104.2.7.2.727879_[id number] Elisabeth Soto RN [facility] 2023-10-02 11:43:00 Vql0MCmHr0hMDxLMN9GoRYnZy48Rf3lVMiiJ2y Xr/69Z9le1UAnoZrJsF0OTi4cU9333-17-89T4 1:43:00 [facility] Emergency Department NotePatient Name: Tej Reyna of : 1985 38 year old maleTreatment Room: [facility] Record Number: [id number] Care Physician: Rene Smith (Inactive)Patient Escorted by: [...] Complaint:Chief ComplaintPatient presents withOtherMedication refillHistory of Present Illness:ELW04hs M with anxiety and prescribed klonopin 2mg presents today needing refill. He states he is not doing good, feels his heart racing and keeps breaking out into sweats. He states he is trying to get ahold of [facility] and anybody else who can see [...] 1 mgFirst Provider Eval:ED EventsDate/Time Event User Eehmmfjt19/01/24 1207 Medical Screening Begins DEB BURGOS MD [...] on fileFollow-up:Electronically signed by:Deb Burgos DO10/02/23 1220 92698-7Kipsxwkvw Emergency department DodwZK9170-69-32W95:20:50Physician Emergency department NoteTXT1.2.840.318818.1.13.104.2.7.2.7 88983|[id number] for patient wnpz09257-2Kjannqupj department NoteLNNARRATIVEFormatted C-CDA narrative textUT61 Thornton [id number] TBLPDREVLJJVMZFHSBQP8612-35-47F26:20:5 01.2.840.981615.1.72.3.15|1.2.840.1143 50.1.13.104.2.7.2.727879_[id number] [facility] 2023-09-28 19:25:10 pEOZLLMh+A4cbVUX49D50ja5OVEdPScjentOTa 2V14VGPP2rbrkyulQJS7GhdJhT4340-61-18J2 9:25:10 Pt unable to be located. Never was seen by provider. 65727-6Pvtzovjvz department OhllQE4049-37-35H51:25:28[facility] department NoteTXT1.2.840.891575.1.13.104.2.7.2.7 18233|0094387330VDWhluldmnm for patient ffgu87906-3GagtLMUMNONNUWSGhhljpikg C-CDA narrative utor217959807Gvilxs D Roman RNUT[address] [id number] VKBGHSFHDOTMEJCOZQXC9857-23-28M31:25:2 81.2.840.862917.1.72.3.15|1.2.840.1143 50.1.13.104.2.7.2.727879_[id number] Medina Presley RN [facility] 2023-09-28 18:17:15 DVaAY7A5NNnMwENI6EJSOzEjIlGmHwVyyZYjRi 1Ud0PUYmjF4sDj1ZBMxkFBEGZa6518-13-53O7 8:17:15 Pt's states his doctor quit prescribing his benzo's and hasn't had any in two days. He was taking klonazepam 2mg BID. States, " [facility], but I'm not having any issues with that. They're weaning me off and I'm getting off of those but that doctor called my other doctor and told him something and he won't prescribe me any." 89366-6Zprkpdumn department Triage qhzxVV5594-68-89O62:19:10[facility] Triage noteTXT1.2.840.869585.1.13.104.2.7.2.7 38610|3806935354OCWkduotljv for patient nqtn09205-4Qhfnzfeib department NoteLNNARRATIVEFormatted C-CDA narrative ukow962010375Eyhmcvq Fief RN[address] OlieOehgsbbzgYusyyxvbhEXWQ1498003139ZN ZBVGMRHAINUSMJERNTOH7685-26-04A18:19:1 01.2.840.905283.1.72.3.15|1.2.840.1143 50.1.13.104.2.7.2.727879_[id number] Liset Blancas RN [facility] 2023-09-28 18:09:00 qLweWipUpY2iewXIB7/VtIUTycwTDS+cHHA9UP MSFmJ4W+R2DFIWM0j7zSTKtAfp8494-38-80Z2 8:09:00 Images from the original note were not included.Patient never seen by Ellen patel [facility]:Dyana Jorgensen MD09/28/231922SchDyana silva MD09/28/231922 39993-9Bwioecpcf Emergency department CjtpHM1438-84-01Q21:23:40Physician Emergency department NoteTXT1.2.840.474487.1.13.104.2.7.2.7 23879|9273585790QLLvkcqsvjm for patient tryq47459-5Sjvikozdf department NoteLNNARRATIVEFormatted C-CDA narrative textUT[address] Pxgy[id number] DDNRYGCWVDNZOXHRISNJ7840-79-07V06:23:4 01.2.840.711703.1.72.3.15|1.2.840.1143 50.1.13.104.2.7.2.727879_[id number] [facility] 2022-06-03 18:30:00 713h4cXAUx/VDMOuybV7b6cUJ7cY0jjeLsKn8w Xm+ehFXvaEjXyobtx+x6H07wRd4011-82-79B6 8:30:00 Gave pt appointments, provided wound care, paper prescriptions were delivered via doctor bedside, taught about s/s of infection, removed IV, pt left with belongings via transport, no distress noted.Gave pt 3 weeks of wound care supplies.Pt left via [employer]. automotive worker provided instructions on how to request a [employer].No needs at this time. [id number] Note1.2.840.828548.1.13.43.2.7.4.22763 0.85093253-91-25N63:18:43Flowsheet NoteTXT1.2.840.481998.1.13.43.2.7.2.72 7879|2368400362DDOcnlnjcam for patient bsod81919-4IiusUS012396238Rwkbvdk [facility]2525 [facility] HospitalPghaAokdowfReyfyceULYQ2556138482HPZT87 23-06-02T19:18:431.2.840.093327.1.72.3 .15|1.2.840.603474.1.13.43.2.7.2.49931 9_[id number] [facility] 2022-06-03 18:30:00 0KQhuu8pZTPxLn/0m0ohme0e+Hl9v+PNAXSJwW 43QPVwJIvJ2VGrRDt8umfZT13V4239-73-82A3 8:30:00 Problem: Hospital Acquired Venous Thromboembolism (VTE)Goal: [...] deep vein thrombosis or pressure ulcers.Outcome: Resolved 0887338Unht of Care1.2.840.559625.1.13.43.2.7.4.32057 0.91130720-30-20X95:47:16Plan of CareTXT1.2.840.672997.1.13.43.2.7.2.72 7879|9548272735VJYxdgsecbt for patient hyxb33858-4VruzGAMBBWymwxl Health Zhutog5116 Natalie TrnkSashtorJxmpadaMHZJ8841827277RMFC73 23-06-02T18:47:161.2.840.537841.1.72.3 .15|1.2.840.733898.1.13.43.2.7.2.69861 9_[id number] [facility] 2022-06-03 17:38:37 7189ZBLhCc6j7cN71OcWb9HxaB15KADK+fEaUa 0miP++RAjH3l1IhmcXYu1qGQmK8207-04-97R2 7:38:37 06/03/22 1737 Intervention Financial Needs Other (Comment)([facility] SELF-PAY/SELF-PAY SCREENED) Referral Data Referral Reason [...] wound care supplies.Glory JORDANN ACM-RNEC Nurse Case ManagerFostoria City Hospital / [facility]# [phone] Note1.2.840.466133.1.13.43.2.7.4.31895 0.81547154-14-00V24:49:49Flowsheet NoteTXT1.2.840.445653.1.13.43.2.7.2.72 7879|0997104247WDPctgqotwj for patient eeet65518-4EuooGQ126722988Kammaefdd D Real [facility]2525 [facility] Hospita[id number] 23-06-02T17:49:491.2.840.840776.1.72.3 .15|1.2.840.906034.1.13.43.2.7.2.30651 9_[id number] Glory Tran [facility] 2022-06-03 04:38:15 7E3RGHnHfUtimXhvRZynGS6h1u4a5U9xu03vyW qdjn4spRZZSUAykwf10qNy5/XW8388-26-21O4 4:38:15 Problem: Hospital Acquired Venous Thromboembolism (VTE)Goal: [...] to perform desired activities.Outcome: Met This Shift 3665437Sdrv of Care1.2.840.901361.1.13.43.2.7.4.78536 0.92818490-05-20S40:38:19Plan of CareTXT1.2.840.317811.1.13.43.2.7.2.72 7879|5258210950MKInpzsvkne for patient ynfp45254-6UzrgIU400297753Sclgxly [facility]2525 Natalie [id number] 23-06-02T04:38:191.2.840.701199.1.72.3 .15|1.2.840.693318.1.13.43.2.7.2.74390 9_[id number] Kristine [facility] 2022-06-02 19:47:16 QGcdksWwUDbASvgWPjzPrfau1Y3HD80jDLZcap guQNJAGlGmTrNhl83UeFrgy+112164-26-50S5 9:47:16 Problem: Hospital Acquired Venous Thromboembolism (VTE)Goal: [...] thrombosis or pressure ulcers.Outcome: Met This Shift 7344454Akdn of Care1.2.840.850359.1.13.43.2.7.4.75685 0.82912411-86-06G25:47:18Plan of CareTXT1.2.840.695453.1.13.43.2.7.2.72 7879|7282572897QAIfcdofezk for patient myut19786-6LiwmTDMZXBjfxvc Health Wkkgxj9477 [facility] HospitalAdqcIajwtkjLfkpqzkXIMX3584762553PLHE79 23-06-01T19:47:181.2.840.729401.1.72.3 .15|1.2.840.069791.1.13.43.2.7.2.15471 9_[id number] [facility] 2022-06-02 04:02:37 ROTneryQDvaaqfXXt6xTrpKpnttOKJZErKKIad wX70wg0qNUv9f/DcGR4AHSUOAI4617-30-26R2 4:02:37 Problem: Hospital Acquired Venous Thromboembolism (VTE)Goal: [...] to perform desired activities.Outcome: Met This Shift 7198662Ebbk of Care1.2.840.164365.1.13.43.2.7.4.65290 0.42934284-52-99K54:02:40Plan of CareTXT1.2.840.298026.1.13.43.2.7.2.72 7879|9840756619BRWrbkpkgog for patient evxj70905-1RzioDBQCUKpqwyi Health Cwafjy0364 [facility] HospitalMmrgXfvlqkiEbcwmxbHRXE7971911984MHWG83 23-06-01T04:02:401.2.840.738222.1.72.3 .15|1.2.840.746509.1.13.43.2.7.2.60631 9_[id number] [facility] 2022-06-01 16:07:00 CfOxpbI8d4f9YEzGzv9vAzjacFynTm0dmfV1XR e9abmklqcG7U7MT74RiyVxD/zR7735-78-64I3 6:07:00 Problem: Hospital Acquired Venous Thromboembolism (VTE)Goal: [...] Be Safe And ComfortableOutcome: Met This Shift 2404939Cjyc of Care1.2.840.612717.1.13.43.2.7.4.23164 0.99104937-35-77M48:07:12Plan of CareTXT1.2.840.019786.1.13.43.2.7.2.72 7879|4690462311GYWdiyvbcdo for patient qumj93486-7UqpqDIMNWDetcseRochester Regional Health2525 [facility] HospitalJzhjRhidqirWhhplzzDXRJ1433271735LUMB28 23-05-31T16:07:121.2.840.306624.1.72.3 .15|1.2.840.368223.1.13.43.2.7.2.68044 9_[id number] [facility] 2022-06-01 16:04:25 Z9Xc7sXcpmD2iSozl+VDPv+x5VJE+qRGw5K/GL OsnQlDXVvC6ilTPy9p4noPTn5A3676-94-35J6 6:04:25 06/01/22 1602 Intervention Coordination of Care Multidisciplinary team(S/p I+D of 4x abscesses on 05/25 and 05/31.infection) Disease Management Meets criteria for Inpatient Medical Necessity Screening Concurrent review([id number]) Oumou Villa MSN, BSN, [facility]-RNClinical Nurse Case [phone] Note1.2.840.293495.1.13.43.2.7.4.22524 0.91033512-14-97E16:04:51Flowsheet NoteTXT1.2.840.772179.1.13.43.2.7.2.72 7879|6050686576GXJdptvethg for patient jbvj17222-0KkheVV623006016Yoevuub Okolie [facility] [place], [place] [address]JobsZodjtunIhrgexfQZKH0551659580SIIG34 23-05-31T16:04:511.2.840.571925.1.72.3 .15|1.2.840.960362.1.13.43.2.7.2.43568 9_[id number] Oumou Villa RN [facility] 2022-06-01 05:30:00 gpylAuPDvEXtVi18rRGbvY4IEgYQp6ZM2H0rpx XLdoTkrDCEBBBRLm1hpY0b4af46867-06-62H4 5:30:00 Problem: Falls / InjuryGoal: Absence of [...] new arrhythmias (if applicable).Outcome: Met This Shift 1333040Zagy of Care1.2.840.231874.1.13.43.2.7.4.66846 0.01661099-54-69L63:50:41Plan of CareTXT1.2.840.378820.1.13.43.2.7.2.72 7879|5633226099NNZxzlbdwed for patient grrn64422-2BimiRR701341086Donarq Osondu RN[address]TXTX[address]USUS20 23-05-31T07:50:411.2.840.338471.1.72.3 .15|1.2.840.318345.1.13.43.2.7.2.91365 9_[id number] Jessika Connolly [facility] 2022-05-31 16:17:37 x9BLVBugUQKQl5Pi/Rp3GwJ9e78SIgNGvKNdiM 1eF2lHx+JkMqxHhX6U72hTiyXg7090-84-70Q8 6:17:37 Problem: Hospital Acquired Venous Thromboembolism (VTE)Goal: [...] swelling, drainage, and pain.Outcome: Met This Shift 6705206Plat of Care1.2.840.347328.1.13.43.2.7.4.60651 0.95408235-64-47S99:17:53Plan of CareTXT1.2.840.601239.1.13.43.2.7.2.72 7879|7268978695YZZwfaojetr for patient ibvh59926-8YreuWSKGCZcsntrRochester Regional Health2525 [facility] HospitalZyleXfojnqjRoryzmyPFCW2939209492RMIM60 23-05-30T16:17:531.2.840.238620.1.72.3 .15|1.2.840.174619.1.13.43.2.7.2.03515 9_[id number] [facility] 2022-05-31 10:15:18 +SQDruTiKNRXBgbjWyr1PoiX/3Bs8ursnTfMBi REbaK6zf6saJ0430JbDUun0s0c4989-61-37V6 0:15:18 Nutrition Screen by Parts Advisor, RegisteredNutrition Screen re: LOS x 7 days.Tej [...] and nutrition related labsAvailable/Consult PRNSignature:Kelly Boo DTR 406823Fixbp: [phone] see Dietitian Note(s) in Plan of Care. 4095743Pwom of Care1.2.840.686833.1.13.43.2.7.4.06255 0.27923670-58-67W96:15:12Plan of CareTXT1.2.840.486177.1.13.43.2.7.2.72 7879|1743760854WBOldokzyod for patient enon72225-0UvlfGAEheudquyxPutxztjzgCJY [facility] Onvzmh8720 [facility] HospitalEcyoGhfyzlyMpwqvmsTZFB5838300443QJJD51 23-05-30T12:15:121.2.840.223086.1.72.3 .15|1.2.840.435964.1.13.43.2.7.2.70547 9_[id number] [facility] 2022-05-31 06:47:50 nP4Zz4s9hQSl3T5kJN6JMLxZhlApmruGFjq0K/ nrRbhcYwEqsgVLmoSUh7PVtH5A6045-17-64O9 6:47:50 Problem: Hospital Acquired Venous Thromboembolism (VTE)Goal: [...] to perform desired activities.Outcome: Met This Shift 6938025Ehnr of Care1.2.840.493260.1.13.43.2.7.4.67981 0.86723158-91-03N61:47:56Plan of CareTXT1.2.840.321149.1.13.43.2.7.2.72 7879|7110623067BDUakfxcyen for patient svin38833-8XyurJE480798575Cztir Anyamene RN[address]TXTX[address]USUS20 23-05-30T06:47:561.2.840.144033.1.72.3 .15|1.2.840.890286.1.13.43.2.7.2.93770 9_[id number] Charline Ren RN [facility] 2022-05-30 16:05:44 BcOdHZu6sylo0pM+Gv8oXuLeYa20Hhow1/0K3J zXl0ZG4AZt/lq9/kt/pboJJFnf7482-43-05S8 6:05:44 Initial visit, pt and one family member present, encouragement and spiritual support provided which resulted in hope being expressed. 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 Worship Patient's significant other Patient's Significant Other Designation Immediate family Spiritual Resources Spiritual Resources Awareness of the Holy;Hope Lime Hide Inspector Assessment (Emotional Needs) Emotional Needs Grief/mourning Lime Hide Inspector Assessment (Spiritual Needs) Patient Expressing Grief/mourning;Helplessness Patient Exploring Brigitte and values Lime Hide Inspector Interventions Emotional Needs Non-anxious, non-judgmental presence provided;Emotions explored;Emotions validated;Hope encouraged;Reflective listening provided Spiritual Needs Grief/mourning explored, encouraged and/or enabled;Brigitte and or beliefs explored and/or validated;Pastoral counseling provided Chaplain Haywoode3-2480 3280356Nezzacyep Note1.2.840.513164.1.13.43.2.7.4.81521 0.62999454-43-25N36:06:41Flowsheet NoteTXT1.2.840.377015.1.13.43.2.7.2.72 7879|4009834161EJOzhnfmuul for patient nnum31602-8LwiuPD23786006Jgillut Joy KnottDeaconess Hospital2525 [facility] HospitalZkzpSmhvexmAgezczwHOOR1758677956YNQR45 23-05-29T16:06:411.2.840.192884.1.72.3 .15|1.2.840.035957.1.13.43.2.7.2.63352 9_[id number] Shawna Chandler [facility] 2022-05-30 15:46:11 Asif/aRSQv7xJRH7sJKvgmtidBhu1q0CjRhSC6z Jj5jLnmWr5CjXlifvxE0ATyzdI8728-78-16U4 5:46:11 Problem: Hospital Acquired Venous Thromboembolism (VTE)Goal: [...] to perform desired activities.Outcome: Met This Shift 0557253Anld of Care1.2.840.254284.1.13.43.2.7.4.68853 0.74606216-62-25C57:46:15Plan of CareTXT1.2.840.785443.1.13.43.2.7.2.72 7879|7710357084ZIOtnmzbvlc for patient tetj10318-7PunvEY521573450IokrvceUniversity Hospitals Tri[facility]2525 [facility] HospitalGijwGztuhgxAwdggpkXXMS2223421036ORHD53 23-05-29T15:46:151.2.840.155719.1.72.3 .15|1.2.840.700403.1.13.43.2.7.2.62361 9_[id number] [facility] 2022-05-30 05:30:02 Bearek/cTAv9nW645lP2fmk22Mq43jQXiw5yQBlz eCyQnFhxNipMPkQRFOyO+QxuG58051-62-87Q4 5:30:02 Problem: Hospital Acquired Venous Thromboembolism (VTE)Goal: [...] to perform desired activities.Outcome: Met This Shift 9874970Ulfd of Care1.2.840.057287.1.13.43.2.7.4.62164 0.63343621-56-92B87:30:08Plan of CareTXT1.2.840.321536.1.13.43.2.7.2.72 7879|9849707760OYBodalsbhq for patient lxsk72622-0WpogSSHCZFbwrelRochester Regional Health2525 [facility] HospitalKepjPqisgofYoblenkWXDX9661675115BSIU53 23-05-29T05:30:081.2.840.877064.1.72.3 .15|1.2.840.062884.1.13.43.2.7.2.77020 9_[id number] [facility] 2022-05-29 18:34:41 HYmmlkAjXEwocB/fPtzJod1MXuf/taUWQAR5PS f0iohl6vPkWtWxoxuLmDfPF+BA2957-42-93O4 8:34:41 Problem: Hospital Acquired Venous Thromboembolism (VTE)Goal: [...] to perform desired activities.Outcome: Met This Shift 7388842Crvo of Care1.2.840.595435.1.13.43.2.7.4.65837 0.44912908-43-68G42:34:46Plan of CareTXT1.2.840.455388.1.13.43.2.7.2.72 7879|8589312890KYWsdmncodg for patient dsfm78908-2AouuSF01060990Nnmhwcgu Ngozi Osita RN[address]TXTX[address]77[address]USUS20 23-05-288:34:461.2.840.167584.1.72.3 .15|1.2.840.321790.1.13.43.2.7.2.27838 9_[id number] Octavia Agosto RN [facility] 2022-05-29 05:08:04 WDoYapDt2/sIfzaBwmeG40cCHnYdjTDlwz1/51 UjabV3+wuS1+ER5fMrE4jRIuzC8156-72-84J0 5:08:04 Problem: Hospital Acquired Venous Thromboembolism (VTE)Goal: [...] wounds, or positive cultures.Outcome: Met This Shift 3928059Dtir of Care1.2.840.030042.1.13.43.2.7.4.37474 0.08222909-54-59B42:08:11Plan of CareTXT1.2.840.648278.1.13.43.2.7.2.72 7879|0764736693EJIkrbczuwi for patient yvxl83741-4KmjlQN88175693Fcznr Baby [facility]2525 Natalie SheltonPirqJlfvhedHkbimykYGWO6021229019HYAE91 23-05-28T05:08:111.2.840.958801.1.72.3 .15|1.2.840.455619.1.13.43.2.7.2.87221 9_[id number] Bilcy Baby [facility] 2022-05-28 18:31:40 irU5gsy6OucMffq7tA6UBEpE/H4R9Oliqd5bct c3/qDq53Wd/+SJ/olVLp7kXxRw9747-15-24J3 8:31:40 Problem: Hospital Acquired Venous Thromboembolism (VTE)Goal: [...] Agosto RNOutcome: Met This Shift05/28/20221640 by Octavia Agosot RNOutcome: Met This Shift Problem: Culturally Responsive [...] by Octavia Agosto RNOutcome: Met This Shift 4051121Vcko of Care1.2.840.566291.1.13.43.2.7.4.40390 0.58253818-86-50W15:31:43Plan of CareTXT1.2.840.306869.1.13.43.2.7.2.72 7879|3477913649MBGvlirxvwb for patient ftrl63593-4GjguOSOGXFtmadh[address] [id number] 23-05-27T18:31:431.2.840.586725.1.72.3 .15|1.2.840.588065.1.13.43.2.7.2.08245 9_[id number] [facility] 2022-05-28 16:41:40 wExyFIrd/SY7/3zruYyDm9i3BtkkA2+YbOmO5E BZ6rq2vzErl+U2O6WpTU+aUYDf1317-72-45J9 6:41:40 Problem: Hospital Acquired Venous Thromboembolism (VTE)Goal: [...] to perform desired activities.Outcome: Met This Shift 2050585Vzwt of Care1.2.840.133819.1.13.43.2.7.4.02831 0.96380113-07-40G62:41:44Plan of CareTXT1.2.840.875364.1.13.43.2.7.2.72 7879|7344217734DCPkezilehc for patient cuqh85716-3IwaiJKUOUDjyxeh Health Rtibfz8945 [facility] HospitalUmiyVumwqukOtwxeibUXTS7051840918XCVP35 23-05-27T16:41:441.2.840.381489.1.72.3 .15|1.2.840.003913.1.13.43.2.7.2.14328 9_[id number] [facility] 2022-05-28 05:28:45 ue1o/sts25sY4zGdqF5UgMs01A9JQousyGIXvl q3fqIeE6z9eUpGXn3SpGsz38ZE7459-83-51H7 5:28:45 Problem: Hospital Acquired Venous Thromboembolism (VTE)Goal: [...] wounds, or positive cultures.Outcome: Met This Shift 6949364Jyxe of Care1.2.840.814255.1.13.43.2.7.4.62254 0.22566542-79-07V76:28:51Plan of CareTXT1.2.840.184909.1.13.43.2.7.2.72 7879|9675145605VIFvrpqbutb for patient nikh14773-8GaofQOSSSTqpqww Health Rzdbqd5693 [facility] HospitalDpqhLrnpqbjSiqfnztNQOK6948611685IJJD12 23-05-27T05:28:511.2.840.190477.1.72.3 .15|1.2.840.811191.1.13.43.2.7.2.01381 9_[id number] [facility] 2022-05-27 14:32:23 56Dbs4upkfYrDrlmrR0ycAd6YkqJuO55HiI9N cbmfHLDo6PFqiD4ogZFaLSJ6EU0170-76-61S4 4:32:23 Problem: Falls / InjuryGoal: Absence of [...] to perform desired activities.Outcome: Met This Shift 6909220Awdq of Care1.2.840.342429.1.13.43.2.7.4.68193 0.64282964-95-71D17:32:30Plan of CareTXT1.2.840.337487.1.13.43.2.7.2.72 7879|5073500125HRKxjeeqfwl for patient dudq66723-7TfopMY655919075Aapidkp Hall [facility]25[address] [place] [id number] 23-05-26T14:32:301.2.840.164672.1.72.3 .15|1.2.840.472815.1.13.43.2.7.2.56337 9_[id number] [facility] 2022-05-27 05:52:57 8vxM+FVJ9TtmD9Hz4roATW1TVZsIFZwMyE1y+x BGBn5c7K+0e8TLJKymptvUV2sL4805-26-69J0 5:52:57 Problem: Hospital Acquired Venous Thromboembolism (VTE)Goal: [...] wounds, or positive cultures.Outcome: Met This Shift [id number] of Care1.2.840.318874.1.13.43.2.7.4.43741 0.39336632-24-41C91:53:04Plan of CareTXT1.2.840.396351.1.13.43.2.7.2.72 7879|[id number] for patient kfza53967-6QifrRXWVBAdmssh Health Vmpshw6629 [facility] Hospital[id number] 23-05-26T05:53:041.2.840.531674.1.72.3 .15|1.2.840.655288.1.13.43.2.7.2.46891 9_[id number] [facility] 2022-05-26 15:14:40 tOsrjRvyPA3uBu4tlyIupaBmmJNn9pmM7KMOM0 C7ONlSML5mbm+nUyGJCnGfB0if3213-09-23G3 5:14:40 Problem: Hospital Acquired Venous Thromboembolism (VTE)Goal: [...] done this shift. Patient verbalized understanding. Appropriate motorcycle racer used. Problem: Falls / InjuryGoal: Absence of [...] Subjective And Objective Responses.Outcome: Met This Shift [id number] of Care1.2.840.572410.1.13.43.2.7.4.81792 0.79665727-10-48P76:14:43Plan of CareTXT1.2.840.781665.1.13.43.2.7.2.72 7879|[id number] for patient xmcy18900-7ZmumBY478045180Zhxfp M Bhakta RN[address] [id number] 23-05-25T15:14:431.2.840.373944.1.72.3 .15|1.2.840.121611.1.13.43.2.7.2.88269 9_[id number] No Montoya RN [facility] 2022-05-26 11:00:00 RyG05ljmVSxK6Yv2kPHaiLnLYnwO3j2kwTfAWD wh6RPJN4Z7YeyniRdHshC9lCgo4391-09-02C1 1:00:00 05/26/22 1100 Intervention Education on freedom to choose and issued vendor list Yes Transportation Referrals Other Transportation medical necessity form N/A Current Support System Immediate family Coordination of Care Multidisciplinary team;Outside facilities Per consult to assist with drug treatment placement, SW connected with Pt to discuss options.SW had contacted both [facility] [phone] and [facility] [phone] per Pt's request and was informed there were no beds available. [facility] only has available beds in locations outside [place] like [facility] and [place]. SW suggested other treatment centers including [facility] [phone] who stated they have available beds and Pt is free to come to their facility in [place], ask for Layo with Intake Department. SW also provided [facility] as an option. Pt declined both options, stated he will talk with his family and may have to choose one of the [facility] locations outside of [place].Pt will inform SW when decision is reached.Atrem Cohn LMSWSocial Work Mat Repairer Delta Medical CenterOffice: [id number]: [id number] Note1.2.840.255846.1.13.43.2.7.4.66539 0.45559267-38-58X32:32:49Flowsheet NoteTXT1.2.840.098193.1.13.43.2.7.2.72 7879|[id number] for patient bkca77340-9JcryXU093369196GtejsvTrousdale Medical Center[address] Natalie Bu[id number] 23-05-25T11:32:491.2.840.819855.1.72.3 .15|1.2.840.176582.1.13.43.2.7.2.09389 9_[id number] [facility] 2022-05-25 14:25:36 DwQaN95uunI9y1JosEDN3tMtLrjTIrv3qQc1hg dx4JxFOw8tOps2McqOoH7aHHwo3198-92-96G2 4:25:36 Problem: Hospital Acquired Venous Thromboembolism (VTE)Goal: [...] Subjective And Objective Responses.Outcome: Met This Shift [id number] of Care1.2.840.452657.1.13.43.2.7.4.54476 0.07111052-21-10S04:25:49Plan of CareTXT1.2.840.225765.1.13.43.2.7.2.72 7879|6197690710CGXsgfepjti for patient bmdx79518-9FyfxXK494509771Czeu [address] [id number] 23-05-24T14:25:491.2.840.243066.1.72.3 .15|1.2.840.539774.1.13.43.2.7.2.32365 9_[id number] [facility] 2022-05-25 10:28:37 ULiCrPsH+qpdv5xP/3Stwhu3gyXYtuWcdFtHUY lm0uX2RQh+3dhlcoSwXbOWedAJ3070-92-11V3 0:28:37 THIS IS A STUDENT NOTEInfectious Diseases Consult NoteDate of Consult: 05/25/22 Reason for Consult: NTM abscessAdmission Date: 05/23/2022 Admission Diagnosis: CellulitisAssessment:Tejjae Guadalupe is a 37y.o. year old male [...] [employer] - Plates have been sent to [facility] for identification and sensitivitiesRecommendations: - After careful consideration of the literature we recommend the following to cover for M chelonae, M fortuitum, and M abscessus: - Amikacin (per pharmacist dosing) - Tigecycline (100mg load followed by 50 BID, can step down to 50 daily if poorly tolerated) - Azithromycin (500 mg daily)- We will jesu antibiotics once ID is received from [facility]- Follow all cultures to completionThank you for this interesting consult. We will continue to followI discussed the case with infectious diseases attending, Dr. Obando.Venu RamosMedical Student, [address] History Obtained From: patient, electronic medical [...] homeless. He has not travelled outside of [place] recently and does not have any sick [...] intact.Data: All labs, images, and data reviewed. [id number] Note1.2.840.265297.1.13.43.2.7.4.91648 0.73416095-01-91O91:34:01Student NoteTXT1.2.840.530995.1.13.43.2.7.2.72 7879|[id number] for patient htjs31792-6FcrnBDHovqtjcr MedicineNorth[facility] Medical Centern[facility]2525 [facility] HospitalLqrxPwhrowhGyfwvmdBTRR6913712309HCGS01 23-05-24T17:34:011.2.840.702993.1.72.3 .15|1.2.840.286755.1.13.43.2.7.2.84371 9_[id number] Internal Medicine [facility] 2022-05-25 03:18:34 CXYMdNm/zcyDhbsQEG7kV0WxcNCXRYoPGXg3vc 8HUvYdY48NtvvHfFDOGizLqTjZ7739-49-69D6 3:18:34 Problem: Hospital Acquired Venous Thromboembolism (VTE)Goal: [...] Subjective And Objective Responses.Outcome: Met This Shift [id number] of Care1.2.840.176769.1.13.43.2.7.4.62078 0.11787877-02-40U39:18:38Plan of CareTXT1.2.840.989692.1.13.43.2.7.2.72 7879|7064239587TPEfmddnsyb for patient epii32226-8BhojSUXAWKhhkdyRochester Regional Health2525 [facility] Hospital[id number] 23-05-24T03:18:381.2.840.398223.1.72.3 .15|1.2.840.871261.1.13.43.2.7.2.15594 9_[id number] [facility] 2022-05-24 18:27:10 w7v8e/YTvJF9Sn7vlmtJB0vrEjTpCgDRBKVZNP M1YL1yTwuGm6rhsTaHtd45qDKw0318-96-51U9 8:27:10 Problem: Hospital Acquired Venous Thromboembolism (VTE)Goal: [...] Subjective And Objective Responses.Outcome: Met This Shift [id number] of Care1.2.840.625276.1.13.43.2.7.4.34426 0.97227134-70-11B67:27:20Plan of CareTXT1.2.840.213034.1.13.43.2.7.2.72 7879|[id number] for patient bwyi45957-7IaqnEHUUVFhwtno Health Zieles9110 [facility] Hospita[id number] 23-05-238:27:201.2.840.468798.1.72.3 .15|1.2.840.319076.1.13.43.2.7.2.21017 9_[id number] [facility] 2022-05-24 11:04:15 zZGWjBBY2DqzvVoHlmfv0XEktlrosp2D+zlGDP jiPPxQ3V17bcXs9edUXTvd6f/n1268-90-41I3 1:04:15 Case management note:Chart reviewed for medical necessity and hospitalization 05/24/22 1103 Intervention Disease Management Meets criteria for Inpatient Medical Necessity Screening Concurrent review([id number]) Patient meet inpatient criteriaPlease place order Admit to InpatientThank Samanta diggs MSN, ACM-RNClinical Nurse Case ManagerFostoria City Hospital | [address] | [place], [place] [address]O: [phone] |F: [phone]| [id number] Note1.2.840.814838.1.13.43.2.7.4.53237 0.31741537-81-10R61:04:38Flowsheet NoteTXT1.2.840.539024.1.13.43.2.7.2.72 7879|[id number] for patient nwqn23401-2AytpOZ40985157Xhuy S Jacob [facility]2525 [facility] HospitalZ[id number] 23-05-23T11:04:381.2.840.963259.1.72.3 .15|1.2.840.504176.1.13.43.2.7.2.72362 9_[id number] Samanta Hassan RN [facility] 2022-05-24 08:50:00 nePksexHZAqCzuzx6iZ8lZk/+nj3+DCF+DQfzX 8zdAHu+37OSzlVX0QCw5c/HkDR9222-32-21F4 8:50:00 05/24/22 0850 Charting Type Charting Type Initial Patient Status Current Status Observation New Status Recommendation Observation Patient Information Source of Information Patient;Other (Comment) County [place]idence [place] Immigration Status: [place] Citizen [...] Family Information Patient Marital Status Single Primary New Car Make Ready Worker Lydia Guadalupe (father) [phone] Income Information Income Source Unemployed Financial Resources Funding Source/Insurance Status Self-Pay Transportation Transportation Needs Private/family transportation Legal Information Legal Concerns No unmet needs Name, surrogate decision maker Lydia Guadalupe (father) [phone] Decision maker contact # Lydia Guadalupe (father) [phone] Mental Health Mental Health Concerns No past / current concerns Acuity Level Medical Acuity Category 3 Owner Professional Engineer Acuity Mild Strengths and Limitations Patient Strengths [...] residing with father at the address on [address] [place] [address], however, will be discharging to sister's upon discharge from the hospital. Pt did not remember the address of sister's house.Family will provide discharge transportation.Healthcare Agent: Lydia Guadalupe (father) [phone].Hayden Grurola Work Mat Repairer [facility] CenterOffice: [phone]: [phone] Note1.2.840.171733.1.13.43.2.7.4.32025 0.53330569-53-49S47:59:01Flowsheet NoteTXT1.2.840.467143.1.13.43.2.7.2.72 7879|[id number] for patient gbrq74325-7SdnyAZMLOKnwuxwRochester Regional Health2525 [facility] HospitalX[id number] 23-05-23T10:59:011.2.840.445813.1.72.3 .15|1.2.840.684177.1.13.43.2.7.2.14639 9_[id number] [facility] 2022-05-24 06:45:53 W+vsL+Eyzt2Wkjuy8IPYhXp7vPzbEsDWmGqs5o GJJYbYw6OF8m6ceHJluL+WzsK06077-38-67E0 6:45:53 Problem: Falls / InjuryGoal: Absence of [...] wounds, or positive cultures.Outcome: Met This Shift [id number] of Care1.2.840.648502.1.13.43.2.7.4.52466 0.92089403-64-77J45:46:15Plan of CareTXT1.2.840.777422.1.13.43.2.7.2.72 7879|[id number] for patient iwcc64321-5YjozPYHIDHgppfyEric [place] [address]17325 [facility] HospitalJ[id number] 23-05-2306:46:151.2.840.396455.1.72.3 .15|1.2.840.046819.1.13.43.2.7.2.43323 9_[id number] [facility] 2022-05-24 04:17:46 hNIqj/dX/DweQZqRGXDCOrlJrI4jQGUf9SPL4c CuR2GXBQQHZS2aKOK5W95iiGMS5884-91-77G8 4:17:46 Patient transferred to . Patient refused wheelchair for transfer. Report given to Hanh MARTINI. Patient AAOx4. Ambulates independently. Respirations clear and unlabored. Skin appropriate to ethnicity. Skin intact with abscesses to the right and left forearms. 29812-1Rjyazyjav department ChkfPZ3134-79-02N19:19:07[facility] department NoteTXT1.2.840.619720.1.13.43.2.7.2.72 7879|[id number] for patient kfou10704-8Jewyirtmw department BjurDX386386687Yigb[address] [id number] 23-05-2304:19:071.2.840.797119.1.72.3 .15|1.2.840.116125.1.13.43.2.7.2.21149 9_[id number] Lupillo Jo [facility] 2022-05-24 02:00:00 W/AlyYGBCytdi6zZUBOE4MEUfpcNfh1fpohdE9 8ZlLSujzc2vtdXQluktP7Gl+BZ3680-93-58V9 2:00:00 Pt resting in room quietly, respirations even nonlabored, no acute distress. [address]-8Awvmc[address] VixpIX5217-87-84N90:07:26[facility] NoteTXT1.2.840.373036.1.13.43.2.7.2.72 7879|[id number] for patient dogr10721-6Scyryejxs[address] [place] [address] LcxnQA157789694Dhqtq [facility] [place], [place] [address]U[id number] 23-05-23T05:07:261.2.840.682536.1.72.3 .15|1.2.840.427884.1.13.43.2.7.2.46050 9_[id number] Cynthia [facility] 2022-05-23 23:58:21 sqMYuQtu1RFZUo//VXpBwUbYMPRnqcuP/ohzIR CugphF8r46Ai+rZSxOpMJ/qiRf5407-34-27O7 3:58:21 [place] [address]-5Kbzipwgci department TilqIZ6950-44-57W99:58:35[facility] department NoteTXT1.2.840.922028.1.13.43.2.7.2.72 7879|[id number] for patient ovtr11130-4Ywzoplnbk department NoteLNAvita Health System2525 Natalie KellyQqxhOrnlahwZqvdfsqLJBS8660527081VFBT85 23-05-22T23:58:351.2.840.612357.1.72.3 .15|1.2.840.565759.1.13.43.2.7.2.41451 9_[id number] [facility] 2022-05-23 22:47:00 wKQdyM99HxABKfojWfr+bXCH4h3VmM8ydqGKgW Q6WA0+UD/2pw0GLyS82XRV8n925956-01-79J6 2:47:00 Patient Tej Guadalupe, 37 y.o. male, [...] extremities spontaneously. Patient pending medical bed admission. 85464-1Cneeheiss department SsfwCJ3974-00-42H03:20:22[facility] department NoteTXT1.2.840.198545.1.13.43.2.7.2.72 7879|[id number] for patient nxjn60056-7Lzagrkwbw department NoteSt. [facility]'s [facility]2525 [facility] HospitalDclx[id number] 23-05-2301:20:221.2.840.449080.1.72.3 .15|1.2.840.558109.1.13.43.2.7.2.13368 9_[id number] [facility] 2022-05-23 22:11:16 PU7Q6k9KZhphOQn3nWJDw5uh4gnA1sRUNWTpji K1btYGF8NwGST6ypTOXABKHBQP8612-82-90F9 2:11:16 Pt ambulatory to B4 for admission with triage nurse. Pt A&OX4, respirations even nonlabored, no acute distrress/no airway distress. 12889-9Baiitdpxx department RmywAE3037-35-09S79:11:43[facility] department NoteTXT1.2.840.244903.1.13.43.2.7.2.72 7879|[id number] for patient vjtv39739-3Pyxscwmgg department [facility]2525 [facility] HospitalF[id number] 23-05-22T22:11:431.2.840.640979.1.72.3 .15|1.2.840.156128.1.13.43.2.7.2.08050 9_[id number] [facility] 2022-05-23 13:29:36 WGMtL/OYiXNnt3+EY99ckQlOknZ0MgAlF3VPI2 SdY3vCkv1Favz21H+TknQMTeB69513-87-12K7 3:29:36 Images from the original note were [...] about a month" per pt. Seen at [facility] on 05/19/2022 for same issue. I&D done [...] History provided by: Medical records and patientLanguage motorcycle racer used: No AbscessLocation: Shoulder/armShoulder/arm abscess location: R [...] Course User Index[AA] Alissa Avitia MD[JU] Chicho Painter ResidentMD[MR] Orlando Donald PA MDMNumber of Diagnoses or [...] Continue to monitor in the emergency departmentNAVEEN Lane-[facility] PA FellowProvider #[id number]/222:04 PM Clinical Impression 1. Cutaneous abscess of right upper extremity 2. Cellulitis of right upper extremity PROVIDER REASSESSMENT NOTEI reexamined the patient Tejjae Simeon Roe.Latest vital signs are:Vitals: 05/23/22 1053 05/23/22 1510 [...] F Reyes MD August 01, 2022 11:44 RF18070-3Aairmjpxk Emergency department MuzqUX315283Cmtwihd, Stephen A1.2.840.477527.1.13.43.2.7.2.087502Ml hdyzaFmvgmxlDUU7669-83-10J25:46:02[facility] department NoteTXT1.2.840.794233.1.13.43.2.7.2.72 7879|[id number] for patient cxvt25886-2Zzobfkfpe department NoteLNAvita Health System2525 [facility] Hospital[id number] 23-07-31T11:46:021.2.840.942559.1.72.3 .15|1.2.840.071891.1.13.43.2.7.2.70344 9_[id number] [facility] 2022-05-23 10:59:29 0ueJL/JpOug+kevi6iUEmyH/mp50SzdH5bOzJl G5WuZvbcaAm1VGN32/muRckfsx6894-04-53G1 0:59:29 ABC intact. Resp even and unlabored. Skin warm and dry with color appropriate to ethnicity. Pt in stable condition. NAD. Verified name and verbally with pt and armband. Informed pt to notify this RN or staff if wanting to leave, and/or experiencing any changes in condition. 72769-4Qsywcedoh department Triage cgvtWK3502-36-36B92:01:33[facility] department Triage noteTXT1.2.840.482882.1.13.43.2.7.2.72 7879|[id number] for patient qioz80656-7Vdpfwfboc department OepxBS976678244Omppjybi Denice Ahmadi [facility]2525 [facility] HospitalK[id number] 23-05-22T11:01:331.2.840.541926.1.72.3 .15|1.2.840.577371.1.13.43.2.7.2.82229 9_[id number] Mary Jane Cheung RN [facility] 2022-05-23 10:50:34 4RfzTbqNHnly3u6wXAwwTKT7ojwvHEYbOZ57fF cBV9p3Qpz95u9Ddjp3OIx/K/oJ6526-25-10E7 0:50:34 MEDICAL SCREENING EXAMINATION PROVIDER NOTEI evaluated [...] at this time.Billy Aguayo 2021 10:52 AM 45527-3Trcuxajzh department FqyrMG6068-82-17A77:53:43[facility] department NoteTXT1.2.840.043197.1.13.43.2.7.2.72 7879|[id number] for patient tzwp99197-9Tqaxvnryn department NoteLNNurse PractitionerNurse PractitionerAvita Health System2525 [facility] Hospital[id number] 23-05-22T10:53:431.2.840.075650.1.72.3 .15|1.2.840.289860.1.13.43.2.7.2.79514 9_[id number] Nurse Practitioner [facility] 2022-05-22 20:38:38 2jH1NUsinO/ooOsbruLxvoVo9cPB70D867y08l SDzvM+7BUS+Ly60BikhMksHnDA4957-65-42F9 0:38:38 Tej Guadalupe called within waiting room and did not answer x3. Patient name paged overhead within the Emergency Department without response. Waiting rooms, ED care areas and restrooms visualized and patient not found. 46433-8Nxcyfhiuy department MojxRS8195-02-47P58:38:46[facility] department NoteTXT1.2.840.048599.1.13.43.2.7.2.72 7879|[id number] for patient fvtx96981-3Eydwwqjcn department NojgOL352615108Kqofwkv Martin [facility]2525 [facility] Hospit[id number] 23-05-21T20:38:461.2.840.520563.1.72.3 .15|1.2.840.241652.1.13.43.2.7.2.29399 9_[id number] Michelle Cuenca RN [facility] 2022-05-22 13:26:33 RU6Toickd35FefL8aNsHmduNZljuTxhsNXGKNj oEBvc33ME2jLgCKteBlQ31Tjav2537-14-24U6 3:26:33 MEDICAL SCREENING EXAMINATION PROVIDER NOTEI evaluated [...] at this time.Billy Novak 2021 1:29 PM 56784-2Amzdpqpoj department RnvzGH5209-47-93D34:33:27[facility] NoteTXT1.2.840.705793.1.13.43.2.7.2.72 7879|[id number] for patient cvub14174-7Jljnqanau department NoteLNNurse PractitionerNurse Practitioner[address]TXTX[address]USUS20 23-05-213:33:271.2.840.058102.1.72.3 .15|1.2.840.641137.1.13.43.2.7.2.64955 9_[id number] Nurse Practitioner [facility] 2022-05-19 19:48:02 iMbj9L6VoMzE8cA9MH5DG1CXHIG+3atkRXnoYy Tgq1auSgfEvvtEfeqPQQO/yhOV0140-60-24P2 9:48:02 Pt AAOX4. Discharge instructions and prescription given, pt verbalizes understanding. Escorted to checkout with belongings in hand. Ambulatory with steady gait. VSS. Respirations even and unlabored. NAD upon departure. 98195-3Mimdvuism department NmciHS7625-57-43L01:48:18[facility] department NoteTXT1.2.840.381485.1.13.43.2.7.2.72 7879|[id number] for patient oica08600-3Fjzhqpocn department WwqnJA663501661Eefktd Graham RN[address] WugsWorccxlLeocvuiVMVL2280290175AGQJ67 23-05-18:48:181.2.840.033781.1.72.3 .15|1.2.840.080048.1.13.43.2.7.2.11675 9_[id number] Jah Bueno RN [facility] 2022-05-19 19:35:00 gwEKpaPF23G8/Q/Bg/CV7XnzPzDBQDCoVRPKKt QO0ZAPNmKe9myvcGVAA1w19rc56653-79-54T3 9:35:00 37 yo pt comes to ED [...] at this time Pt Is pending d/c 24256-8Tzkhabjvd department MhidAH4053-68-90P74:48:50Emergency department NoteTXT1.2.840.415188.1.13.43.2.7.2.72 7879|[id number] for patient uzrj94098-4Qymapqwku department NoteLNAvita Health System2525 [facility] Hospital[id number] 23-05-189:48:501.2.840.438019.1.72.3 .15|1.2.840.858802.1.13.43.2.7.2.90028 9_[id number] [facility] 2022-05-19 15:56:27 KZx5w+NFdfZCLFCDpvBSYvddEq0jX3aoCNstxe mfQA59F+GzwDgsbocZYDN9Cx8f4174-50-70H4 5:56:27Associated Order(s): I&D of AbscessPost-Procedure Diagnose(s): Right wrist pain History Chief Complaint Patient presents with Mass Right fa- multiple masses r/t shooting up crystal meth Withdrawal Reports he hasn't used in the last 7 days- Vicodin, suboxone & klonopin Pt requesting "just a little benzodiazepine to help me" 37 year old man in recovery program and [facility] substance abuse (suboxone, clonapin, crystal meth with 1 week Hx, hydrocodone (obtained from doctor)), anxiety disorder, panic disorder, bipolar disorder Tx with Zyprexa and Prozac presenting with pain and new mass on R arm and feels withdrawal symptoms from benzos. Approx 1 mo ago, injected meth into right wrist in several injection sites, came to hospital for cellulitis and had procedure (surgical I&D) ([place] [facility]), treated with cellulitis and sent home with [...] Impression 1. Right wrist pain Chris Marrufo, WenfnzvaJZEmsddozs68/18/22 1641 Chris Marrufo, ZhjduhxiHVTjndxkua41/18/22 1738 Chris Marrufo, SzxblbepHLInnqhgkj56/18/22 1739 Chris Marrufo, PaqthfrtMNYtfmwbih10/18/22 1847 Chris Marrufo, AbyegfeqHSBgqrvvfo94/18/22 1908TEACHING PHYSICIAN CEE personally examined Tej Guadalupe, [...] Estrada 2021 10:23 PM Daniel Petit MD05/19/226 78250-3Incayicov Emergency department SuawRN863009FiKxqpkc, Robert1.2.840.465922.1.13.43.2.7.2.836 935RdMadhisLmpwktUV6102-40-52N43:30:23 Physician Emergency department NoteTXT1.2.840.328272.1.13.43.2.7.2.72 7879|[id number] for patient enom06642-5Kxlwyjgqf department NoteLNInternal MedicineInternal MedicineAvita Health System2525 [facility] HospitalHjytMbfcvxxWjsbydeOAQZ3729118689ESJK10 23-05-18T22:26:301.2.840.856593.1.72.3 .15|1.2.840.701190.1.13.43.2.7.2.69991 9_[id number] Internal Medicine [facility] 2022-05-19 15:51:03 Becky/OSjd4yHG8U9xG3hdIfFv5w9U1cROrRy M5iEvn2G78LWjbtJVRblu9txRq6854-46-40L8 5:51:03 Assessment X2 pt's ID, ABC intact, [...] hot to touch. No peripheral edema. MAEX4 SFNT7Coum light and belongings within reachPending evaluation and orders, will continue to monitor VINI Gonzalez 56315-4Wruofhlpg department GbykQP2439-79-32V17:54:23[facility] department NoteTXT1.2.840.267103.1.13.43.2.7.2.72 7879|[id number] for patient bsxi93485-5Lplbxcrmk department XxqfGP232731831Quntmk [facility]2525 [facility] HospitalXwyvQnpeenmVlpdydgNMEJ1168198444SZFM32 23-05-18T15:54:231.2.840.314296.1.72.3 .15|1.2.840.659245.1.13.43.2.7.2.63888 9_[id number] [facility] 2022-[facility]-19 12:42:01 OGgTU+xtcskp+KWEEOYwqmadWUSKS79ZRV0AR3 /Oi/Pg4KSB2Tf23adUygQc9YFl3148-45-19A6 2:42:01 Pt noted to have another hospital arm band on stated "they told me to come here to get them lanced" 72542-7Yijmgqvck department OidlUO2002-18-98Z95:42:31[facility] department NoteTXT1.2.840.154879.1.13.43.2.7.2.72 7879|[id number] for patient tusf68821-6Ldrrpinqq department RkdfGJ666849106Rfytxqoq Clardy [address]TXTX[address]77[address]USUS20 23-05-182:42:311.2.840.826208.1.72.3 .15|1.2.840.266482.1.13.43.2.7.2.37209 9_[id number] Emma Weathers [facility] 2022-05-19 12:32:25 pL4AmQqP28R6JvFcJ3Za65av+yN6oOabXclE/L D0aSisysmKA1Pf3MyNhrUb4N9M1346-23-71V2 2:32:25 Name and verified and confirmed correct with patient. 83311-6Nbqrpvivq department HdonGC1396-74-09F20:32:31[facility] department NoteTXT1.2.840.498381.1.13.43.2.7.2.72 7879|[id number] for patient wlup84989-3Hecarpwpr department NoteLN[address]TXTX7705477054USUS20 23-05-182:32:311.2.840.390609.1.72.3 .15|1.2.840.892616.1.13.43.2.7.2.44304 9_[id number] [facility] 2022-05-19 12:30:12 wYj6mYBFSkIKiL/V8FFmNXnNrC4tCBDWG+7axL r913Eqhkcb+Sc8yD4fEpyIxAfm4825-60-55Q5 2:30:12 MEDICAL SCREENING EXAMINATION PROVIDER NOTEI evaluated [...] at this time.Choco Matthews 2021 12:30 PM 82827-0Lgxmqesqk department KeeuIF8677-75-92U70:32:29[facility] NoteTXT1.2.840.402547.1.13.43.2.7.2.72 7879|[id number] for patient tlzf21728-6Eyjrzwrfl department NoteSt. Joseph's Medical Center2525 [facility] HospitalFxlkEzwlkakDnzcgftRDJI9122907568ZUVU29 23-05-18T12:32:291.2.840.025912.1.72.3 .15|1.2.840.566670.1.13.43.2.7.2.67966 9_[id number] [facility] 2020-12-13 19:54:00 DKvnlqgfnvv97697957MVQ+n3miNkSjLpFFdgW c/npdjlwzS576ucJrVB28KBdVtppQsooRkOYi/ SAGQLEg5142-37-17L73:54:00 [facility] ([facility])EMERGENCY PROVIDER REPORTREPORT#:[id number] REPORT STATUS: SignedDATE:12/13/20 TIME: 1952 PATIENT: TEJ GUADALUPE UNIT #: [id number]#: [id number] ROOM/BED:AGE: 35 SEX: M PCP PHYS: No [...] HPI NotesPatient states he is withdrawing from [facility] and thinks he may have [...] and squeezes hands appropriately upon command. Normal bjtl-qc-qnrk eye movements on extraocular muscle testing. No [...] pH (5.0 - 8.0) 6.5 Ur Specific Island (1.001 - 1.035) 1.014 Urine Protein (NEGATIVE [...] at 2238 (to Dr. Mari) at 2238RPT #:[id number] OF REPORTEDEmergency department zrbugp8676-65-55M94:54:00V.ODXW3819357 4-0589AVAvailable for patient ogrdRTLSTISGYJATTI8402-61-10R98:39:03 [facility] 2020-12-13 19:54:00 OHfwgmqtzao40406647gY6yZlgFUIJeApPE/Q6 HOeZHXI4RxxXX5GEmjUrPof5r3Wocam+Wxasc8 O6pQ8F29267-71-27V83:54:00 [facility] ([facility])EMERGENCY PROVIDER REPORTREPORT#:[id number] REPORT STATUS: SignedDATE:12/13/20 TIME: 1952 PATIENT: TEJ GUADALUPE UNIT #: [id number]#: [id number] ROOM/BED:AGE: 35 SEX: M PCP PHYS: No [...] HPI NotesPatient states he is withdrawing from [facility] and thinks he may have had a [...] and squeezes hands appropriately upon command. Normal meri-ui-qesr eye movements on extraocular muscle testing. No [...] pH (5.0 - 8.0) 6.5 Ur Specific Island (1.001 - 1.035) 1.014 Urine Protein (NEGATIVE [...] 98 On: Room air Interpretation Interpreted by ri, Pulse oximetry normal Time 1956 Re-Evaluation [facility] ED CourseMedication(s) OrderedMedication(s) Ordered:Antihistamine Drugs [...] of Re-Eval 0518 at 2238 at 0519RPT #:[id number] OF REPORTEDEmergency department mjkgaz4650-42-17Q55:54:00V.KVFJ9991576 4-0589AVAvailable for patient hxuzRODRECBKEXALMF8294-71-14C69:19:25 [facility] 2020-12-13 19:54:00 KSmotvlyxlv91992992hAlpYX8HX8RM+LHvbz6 rFghXu4ag2CM+hiVZtXVaDySkuGwKZOC1U5xas SPX4g3T7385-28-00W52:54:00 [facility] ([facility])EMERGENCY PROVIDER REPORTREPORT#:[id number] REPORT STATUS: SignedDATE:12/13/20 TIME: 1952 PATIENT: TEJ GUADALUPE UNIT #: [id number]#: [id number] ROOM/BED:AGE: 35 SEX: M PCP PHYS: No [...] HPI NotesPatient states he is withdrawing from [facility] and thinks he may have [...] and squeezes hands appropriately upon command. Normal lyrj-zw-aadq eye movements on extraocular muscle testing. No [...] pH (5.0 - 8.0) 6.5 Ur Specific [place] (1.001 - 1.035) 1.014 Urine Protein (NEGATIVE [...] me, Pulse oximetry normal Time 1956 Re-Evaluation [facility] ED CourseMedication(s) OrderedMedication(s) Ordered:Antihistamine Drugs [...] involvement at 2238 at 0519 at 0803RPT #:[id number] OF REPORTEDEmergency department usxbcz0579-44-06D95:54:00V.[id number] for patient csbkIPBTJGSOJYALLI4704-83-28T87:03:59 [facility] 2020-12-06 16:41:00 GMowjdvhsne07228676qs/1pGSWprj3YZt1lBk qY6UlVmUxaAUHwIEkgQ/dhDLqk7o9XLWrp6BzC s0M1hxf7549-23-69Q60:41:00 [facility] ([facility])EMERGENCY PROVIDER REPORTREPORT#:[id number] REPORT STATUS: SignedDATE:12/06/20 TIME: 1641 PATIENT: TEJ GUADALUPE UNIT #: [id number]#: [id number] ROOM/BED:AGE: 35 SEX: M PCP PHYS: No [...] Medical History - AdultStated Complaint [facility] DETOXAllergiesCoded Allergies:No Known Allergies [...] DecisionOther Against Medical Advice Yes at 1528RPT #:[id number] OF REPORTEDEmerchristus dubuis hospitalcy department crxwmw8764-31-16X89:41:00V.[id number] [id number] for patient rdagLJXUQRTWXYUMVA0803-87-82J56:28:42 [facility]
[2024-01-28] MEDS ORDERED: clonazePAM 1 MG TAB ONE (10:58)
[2024-01-28] MEDS ORDERED: KETOROLAC 30 MG/ML INJ ONE (11:18)
[2024-01-28] MEDS ORDERED: HYDROCODONE/APAP 5/325 MG TAB ONE (11:19)
[2024-01-28] MEDS ORDERED: CYCLOBENZAPRINE 10 MG TAB ONE (11:39)
--- NOTE | 2024-01-28 12:29 | ER ---
Nurse's Notes [facility] Name: Anthony Au Age: 38 yrs Sex: Male : 1985 Arrival Date: 01/28/2024 Time: 10:34 Bed 16 Private MD: Diagnosis: Generalized anxiety disorder Presentation: 01/27 10:46 Chief complaint: Patient states: Out of his xanax and buprenorphine for a couple days. nj1 Nauseous, shaky. Has doctor appointment tomorrow. 10:46 Coronavirus screen: Vaccine status: Patient reports receiving the 2nd dose of the covid nj1 vaccine. Ebola Screen: Patient denies travel to an Ebola-affected area in the 21 days before illness onset. Initial Sepsis Screen: Does the patient meet any 2 criteria? No. Patient's initial sepsis screen is negative. Does the patient have a suspected source of infection? No. Patient's initial sepsis screen is negative. Risk Assessment: Do you want to hurt yourself or someone else? Patient reports no desire to harm self or others. Onset of symptoms was January 2024. 10:46 Method Of Arrival: Ambulatory [facility] 10:46 Acuity: MARKY 3 nj Triage Assessment: 10:54 General: Appears in no apparent distress. uncomfortable, Behavior is cooperative, nj1 appropriate for age. Neuro: Level of Consciousness is awake, alert, obeys commands, Oriented to person, place, time, situation. Neuro: Tremors . Cardiovascular: Patient's skin is warm and dry. Respiratory: Airway is patent Respiratory effort is even, unlabored. GI: Reports nausea. Historical: - Allergies: 10:53 No Known Allergies; nj1 - PMHx: 10:53 Anxiety; Asthma; Bipolar disorder; Depression; detox seizures; nj1 - PSHx: 10:53 I\T\D; nj1 - Immunization history:: Client reports receiving the 2nd dose of the Covid vaccine. - Infectious Disease History:: Denies. - Social history:: Smoking status: Patient reports the use of cigarette tobacco products, smokes one pack cigarettes per day. Screenin:49 [facility] ED Fall Risk Assessment (Adult) History of falling in the last 3 months, as6 including since admission No falls in past 3 months (0 pts) Confusion or Disorientation No (0 pts) Intoxicated or Sedated No (0 pts) Impaired Gait No (0 pts) Mobility Assist Device Used No (0 pt) Altered Elimination No (0 pt) Score/Fall Risk Level 0 - 2 = Low Risk Oriented to surroundings, Maintained a safe environment, Educated pt \T\ family on fall prevention, incl call for assistance when getting out of bed, Assessed \T\ reinforced patient's understanding of fall precautions. Abuse screen: Denies threats or abuse. Denies injuries from another. Nutritional screening: No deficits noted. Tuberculosis screening: No symptoms or risk factors identified. Assessment: 11:47 Reassessment: Patient appears in no apparent distress at this time. Patient and/or as6 family updated on plan of care and expected duration. Pain level reassessed. Patient is alert, oriented x 3, equal unlabored respirations, skin warm/dry/pink. Patient states feeling better. Vital Signs: 10:46 BP 159 / 98; Pulse 90; Resp 18; Temp 97.1(TE); Pulse Ox 99% on R/A; Weight 83.91 kg; nj1 Height 5 ft. 8 in. ; 11:48 BP 154 / 81; Pulse 94; Resp 15 S; Pulse Ox 98% on R/A; as6 10:46 Body Mass Index 28.13 (83.91 kg, 172.72 cm) nj1 ED Course: 10:37 Patient arrived in ED. mg5 10:37 Annika Avilez PA-C is PHCP. sb4 10:38 Elicia Barrera MD is Attending Physician. sb4 10:49 Jena Willams, RN is Primary Nurse. db 10:53 Triage completed. nj1 10:54 Arm band placed on. nj1 11:48 Verbal reassurance given. as6 11:49 Bed in low position. Call light in reach. Assisted with urinal. as6 12:28 Jesse Pierre MD is Referral Physician. sb4 12:30 Provided Education on: follow up. as6 12:30 No provider procedures requiring assistance completed. Patient did not have IV access as6 during this emergency room visit. Administered Medications: 10:59 Drug: clonazePAM PO 1 mg PO once Route: PO; nj1 12:19 Follow up: Response: No adverse reaction as6 10:59 CANCELLED (Physician Discretion; not have available): buprenorphine-naloxone Film 8 sb4 mg-2 mg 8 mg Sublingual once 11:22 Drug: Ketorolac IM 30 mg IM once Route: IM; Site: left deltoid; db 12:19 Follow up: Response: No adverse reaction as6 11:22 Drug: HYDROcodone-acetaminophen PO 5 mg-325 mg 1 tabs PO once Route: PO; db 12:19 Follow up: Response: No adverse reaction as6 11:41 Drug: Cyclobenzaprine PO 10 mg PO once Route: PO; db 12:20 Follow up: Response: No adverse reaction as6 Medication: 11:49 VIS not applicable for this client. as6 Outcome: 12:28 Discharge ordered by . sb4 12:30 Discharged to home ambulatory, as6 12:30 Condition: stable 12:30 Discharge instructions given to patient, Instructed on discharge instructions, follow up and referral plans. Demonstrated understanding of instructions, follow-up care, 12:31 Patient left the ED. as6 Signatures: Tom Valenzuela RN RN as6 Jena Willams RN RN Annika Alvarez PA-C PA-Pilo sb4 Jacy Medley RN RN nj1 Aleida Hernandez mg5
--- NOTE | 2024-01-28 12:29 | EDPHYS ---
Physician Documentation [facility] Name: Anthony Au Age: 38 yrs Sex: Male : 1985 Arrival Date: 01/28/2024 Time: 10:34 Bed 16 Private MD: ED Physician Elicia Barrera HPI: 01/27 10:54 This 38 yrs old Male presents to ER via Ambulatory with complaints of sb4 medication withdrawal. 12:04 states he is withdrawing from his xanax and buprenorphrine. has an appt with sb4 psychiatrist tomorrow but could not wait. is shaking, feels nauseated, and has back pain. Historical: - Allergies: 10:53 No Known Allergies; nj1 - PMHx: 10:53 Anxiety; Asthma; Bipolar disorder; Depression; detox seizures; nj1 - PSHx: 10:53 I\T\D; nj1 - Immunization history:: Client reports receiving the 2nd dose of the Covid vaccine. - Infectious Disease History:: Denies. - Social history:: Smoking status: Patient reports the use of cigarette tobacco products, smokes one pack cigarettes per day. ROS: 12:04 Constitutional: Negative for fever, chills, and weight loss, sb4 12:04 Abdomen/GI: Positive for nausea, 12:04 Back: Positive for pain at rest, 12:04 Neuro: Positive for 12:04 All other systems are negative, Exam: 12:04 Head/Face: Normocephalic, atraumatic. Eyes: Extra-ocular motions intact. Periorbital sb4 areas with no swelling, redness, or edema. ENT: Mucous membranes moist. Cardiovascular: Regular rate and rhythm with a normal S1 and S2. Respiratory: Lungs have equal breath sounds bilaterally, clear to auscultation and percussion. No rales, rhonchi or wheezes noted. No increased work of breathing, no retractions or nasal flaring. Abdomen/GI: Soft, non-tender, no distension. Skin: Warm, dry with normal turgor. Normal color with no rashes, no lesions, and no evidence of cellulitis. MS/ Extremity: Pulses equal, no cyanosis. Neurovascular intact. Full, normal range of motion. 12:04 Constitutional: The patient appears alert, awake, anxious, shaking Vital Signs: 10:46 BP 159 / 98; Pulse 90; Resp 18; Temp 97.1(TE); Pulse Ox 99% on R/A; Weight 83.91 kg; nj1 Height 5 ft. 8 in. ; 11:48 BP 154 / 81; Pulse 94; Resp 15 S; Pulse Ox 98% on R/A; as6 10:46 Body Mass Index 28.13 (83.91 kg, 172.72 cm) nj1 MDM: 10:46 Patient medically screened. sb4 12:27 Data reviewed: vital signs, nurses notes, and as a result, I will discharge patient. sb4 Counseling: I had a detailed discussion with the patient and/or guardian regarding the historical points, exam findings, and any diagnostic results supporting the discharge/admit diagnosis, the need for outpatient follow up, a psychiatrist, to return to the emergency department if symptoms worsen or persist or if there are any questions or concerns that arise at home. Administered Medications: 10:59 Drug: clonazePAM PO 1 mg PO once Route: PO; nj1 12:19 Follow up: Response: No adverse reaction as6 10:59 CANCELLED (Physician Discretion; not have available): buprenorphine-naloxone Film 8 sb4 mg-2 mg 8 mg Sublingual once 11:22 Drug: Ketorolac IM 30 mg IM once Route: IM; Site: left deltoid; db 12:19 Follow up: Response: No adverse reaction as6 11:22 Drug: HYDROcodone-acetaminophen PO 5 mg-325 mg 1 tabs PO once Route: PO; db 12:19 Follow up: Response: No adverse reaction as6 11:41 Drug: Cyclobenzaprine PO 10 mg PO once Route: PO; db 12:20 Follow up: Response: No adverse reaction as6 Disposition Summary: 01/28/24 12:28 Discharge Ordered Notes: Location: Home sb4 Problem: new sb4 Symptoms: have improved sb4 Condition: Stable sb4 Diagnosis - Generalized anxiety disorder sb4 Followup: sb4 - With: Jesse Pierre MD - When: Tomorrow - Reason: Recheck today's complaints, Re-evaluation by your physician Discharge Instructions: - Discharge Summary Sheet sb4 - Generalized Anxiety Disorder, Adult sb4 Forms: - Medication Reconciliation Form sb4 - Patient Portal Instructions sb4 - Leadership Thank You Letter sb4 Signatures: Tom Valenzuela RN RN as6 Jena Willams RN RN db Annika Avilez PAOscarC PA-C sb4 Jacy Medley RN RN nj1 Corrections: (The following items were deleted from the chart) 10:59 10:53 buprenorphine-naloxone Film 8 mg-2 mg 8 mg Sublingual once ordered. sb4 sb4
[2024-01-28 12:59] VITALS: BP 154/81; TEMP 97.1; O2SAT 98
== END 2024-01-28 12:31 | disposition home or self-care (01) ==
LOC: ER 10:34
DX: F41.1 Generalized anxiety disorder (principal)
CPT/HCPCS: 96372; 99284

== ENCOUNTER 2024-01-28 20:03 | Emergency (ER) | payer SELFPAY ==
--- OUTSIDE RECORDS SUMMARY | 2024-01-28 20:09 | XMS REPORT | Continuity of Care Document ---
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 08:53:00 Germán, [facility] WOUND/ABSCESS CULTURE AND GRAM STAIN 2022-05-31 08:53:00 Germán, [facility] BASIC METABOLIC PANEL 2022-05-31 05:12:00 Lulu [facility] BASIC METABOLIC PANEL 2022-05-31 05:12:00 Lawson [facility] GLUCOSE POC 2022-05-29 08:04:00 [facility] GLUCOSE POC 2022-05-29 08:04:00 [facility] CBC (WITHOUT DIFFERENTIAL) 2022-05-29 04:33:00 Lawson [facility] BASIC METABOLIC PANEL 2022-05-29 04:33:00 Lulu [facility] BASIC METABOLIC PANEL 2022-05-29 04:33:00 LawsonIan [facility] CBC (WITHOUT DIFFERENTIAL) 2022-05-29 04:33:00 Lawson [facility] GLUCOSE POC 2022-05-28 16:49:00 [facility] GLUCOSE POC 2022-05-28 16:49:00 [facility] GLUCOSE POC 2022-05-28 11:46:00 [facility] GLUCOSE POC 2022-05-28 11:46:00 [facility] GLUCOSE POC 2022-05-28 08:24:00 [facility] GLUCOSE POC 2022-05-28 08:24:00 [facility] CBC (WITHOUT DIFFERENTIAL) 2022-05-28 04:36:[address] [facility] BASIC METABOLIC PANEL 2022-05-28 04:36:[address] [facility] BASIC METABOLIC PANEL 2022-05-28 04:36:[address] [facility] CBC (WITHOUT DIFFERENTIAL) 2022-05-28 04:36:[address] [facility] CBC (WITHOUT DIFFERENTIAL) 2022-05-27 05:10:[address] [facility] BASIC METABOLIC PANEL 2022-05-27 05:10:00 LawsonIan [facility] AMIKACIN, RANDOM LEVEL 2022-05-27 05:10:[address] [facility] BASIC METABOLIC PANEL 2022-05-27 05:10:[address] [facility] CBC (WITHOUT DIFFERENTIAL) 2022-05-27 05:10:00 Heath Lawson [facility] AMIKACIN, RANDOM LEVEL 2022-05-27 05:10:[address] [facility] AMIKACIN, RANDOM LEVEL 2022-05-26 23:35:[address] [facility] AMIKACIN, RANDOM LEVEL 2022-05-26 23:35:00 Marcin Matteo mora [facility] AMIKACIN, TROUGH LEVEL 2022-05-26 05:53:[address] [facility] CBC (WITHOUT DIFFERENTIAL) 2022-05-26 05:53:[address] [facility] BASIC METABOLIC PANEL 2022-05-26 05:53:00 LawsonIan [facility] BASIC METABOLIC PANEL 2022-05-26 05:53:00 LawsonIan [facility] CBC (WITHOUT DIFFERENTIAL) 2022-05-26 05:53:00 Heath Lawson [facility] AMIKACIN, TROUGH LEVEL 2022-05-26 05:53:[address] [facility] CONSULT CLINICAL CASE MANAGEMENT (RN/SW) 2022-05-25 14:55:[address] [facility] CONSULT CLINICAL CASE MANAGEMENT (RN/SW) 2022-05-25 14:55:[address] [facility] CBC/DIFF 2022-05-25 08:24:[address] [facility] BASIC METABOLIC PANEL 2022-05-25 08:24:00 Ian Lawson [facility] CBC 2022-05-25 08:24:[address] [facility] BASIC METABOLIC PANEL 2022-05-25 08:24:00 Ian Lawson [facility] CBC/DIFF 2022-05-25 08:24:[address] [facility] CBC 2022-05-25 08:24:[address] [facility] ANAEROBE CULTURE 2022-05-24 20:47:00 [facility]AM STAIN 2022-05-24 20:47:00 [facility] 2022-05-24 20:47[facility]00 [facility] WOUND/ABSCESS CULTURE AND GRAM STAIN 2022-05-24 20:47:00 [facility] STAIN AND CULTURE 2022-05-24 15:44:00 Germán [facility] FUNGUS STAIN AND CULTURE 2022-05-24 15:44:00 Pilo Dunlap [facility] [employer] STAIN AND CULTURE 2022-05-24 15:44:00 Germán [facility] FUNGUS STAIN AND CULTURE 2022-05-24 15:44:00 Pilo Dunlap [facility] INFUSION PUMP 2022-05-24 04:24:23 Lupe Burch [facility] INFUSION PUMP 2022-05-24 04:24:23 Lupe Burch [facility] CBC/DIFF 2022-05-24 04:22:[address] [facility] CBC 2022-05-24 04:22:[address] [facility] CBC/DIFF 2022-05-24 04:22:[address] [facility] CBC 2022-05-24 04:22:[address] [facility] HIV AG/AB COMBO DIAGNOSTIC/SYMPTOMATIC 2022-05-23 18:44:00 Adore [facility] HEPATITIS PANEL 2022-05-23 18:44:00 Adore, [facility] HEPATITIS PANEL 2022-05-23 18:44:00 Adore [facility] HIV AG/AB COMBO DIAGNOSTIC/SYMPTOMATIC 2022-05-23 18:44:00 [facility] SARS-COV-2, FLU A/B, RSV 2022-05-23 15:41:[address] [facility] CORONAVIRUS, COVID-19, YOKASTA 2022-05-23 15:41:[address] [facility] CORONAVIRUS, COVID-19, YOKASTA 2022-05-23 15:41:[address] [facility] SARS-COV-2, FLU A/B, RSV 2022-05-23 15:41:[address] [facility] BASIC METABOLIC PANEL 2022-05-23 11:25:[address] [facility] CBC/DIFF 2022-05-23 11:25:[address] [facility] CBC 2022-05-23 11:25:[address] [facility] SED RATE 2022-05-23 11:25:00 [facility] C-REACTIVE PROT 2022-05-23 11:25:00 Orlando Donald [facility] BASIC METABOLIC PANEL 2022-05-23 11:25:[address] [facility] CBC/DIFF 2022-05-23 11:25:[address] [facility] C-REACTIVE PROT 2022-05-23 11:25:00 Orlando Donald [facility] SED RATE 2022-05-23 11:25:00 [facility] CBC 2022-05-23 11:25:[address] [facility] LIMITED BEDSIDE ULTRASOUND 2022-05-23 11:08:27 Unknown, Provider [facility] HC POC URINE DRUG SCREEN 2022-05-19 21:30:00 Jennifer Alcala [facility] HC POC URINE DRUG SCREEN 2022-05-19 21:30:[facility] 2022-05-19 19:03:[address] [facility] I&D OF ABSCESS 2022-05-19 19:03:[address] [facility] WOUND/ABSCESS CULTURE AND GRAM STAIN 2022-05-19 18:54:[address] [facility] WOUND/ABSCESS CULTURE AND GRAM STAIN 2022-05-19 18:54:[address] [facility] XRAY FOREARM 2 VIEWS MIN 2022-05-19 17:04:[address] [facility] XRAY FOREARM 2 VIEWS MIN 2022-05-19 17:04:[address] [facility] CBC/DIFF 2022-05-19 14:29:00 Tramaine [facility] BASIC METABOLIC PANEL 2022-05-19 14:29:00 [facility] LACTIC ACID 2022-05-19 14:29:00 Tramaine [facility] CBC 2022-05-19 14:29:00 Tramaine [facility] SED RATE 2022-05-19 14:29:00 [facility] C-REACTIVE PROT 2022-05-19 14:29:00 Russell [facility] BASIC METABOLIC PANEL 2022-05-19 14:29:00 Dana Wells [facility] CBC/DIFF 2022-05-19 14:29:00 Tramaine [facility] C-REACTIVE PROT 2022-05-19 14:29:00 Tramaine [facility] LACTIC ACID 2022-05-19 14:29:00 Tramaine [facility] SED RATE 2022-05-19 14:29:00 [facility] CBC 2022-05-19 14:29:00 Tramaine [facility] HC POC URINE DRUG SCREEN 2022-05-19 11:15:00 [facility] HC POC URINE DRUG SCREEN 2022-05-19 11:15:00 [facility] POC COVID-19 2022-05-17 17:50:00 Kerline [facility] HC POC URINE DRUG SCREEN 2022-05-12 17:47:00 Rebel Case [facility] HC POC URINE DRUG SCREEN 2022-05-12 17:47:[address] [facility] POC COVID-19 2022-05-11 23:56:[address] [facility] XRAY WRIST 3 VIEWS MIN 2022-05-11 17:04:00 [facility]/DIFF 2022-05-11 16:20:00 Michael Hanh Mata [facility] BASIC METABOLIC PANEL 2022-05-11 16:20:00 German Rodriguez [facility] HIV AG/AB COMBO ROUTINE SCREENING 2022-05-11 16:20:00 [facility] CBC 2022-05-11 16:20:00 Michael Hanh Mata [facility] URINE DRUG (IMMUNOASSAY) - COMPREHENSIVE DRUG SCREEN 2021-01-30 22:04:00 Shy Martin [facility] HEPATIC FUNCTION PANEL (42807) (ALB,T.PRO,BILI T,BU/BC,ALT,AST,ALK PHOS) 2021-01-30 22:03:00 Shy Martin [facility] BASIC METABOLIC PANEL (NA, K, CL, CO2, GLUCOSE, BUN, CREATININE, CA) 2021-01-30 22:03:00 Shy Martin [facility] SALICYLATE 2021-01-30 22:03:00 [facility] 2021-01-30 22:03:00 [facility] 2021-01-30 22:03:00 [facility] 2021-01-30 22:02:00 [facility] COVID-[facility] (ID NOW RAPID TESTING) 2021-01-30 22:02:00 Shy Martin [facility] NOTICE OF PRIVACY PRACTICES 2021-01-30 21:37:21 Doctor Unassigned, Shindler [facility] CONSENT/REFUSAL FOR DIAGNOSIS AND TREATMENT 2021-01-30 21:37:00 Doctor Unassigned, Shindler [facility] Plan of Care Planned Activity Planned Date Details Comments [facility] Scheduled Test 2023-07-02 00:00:00 IMM Influenza Seasonal (>/= 19 yrs) [code = IMM Influenza Seasonal (>/= 19 yrs)] [facility] Scheduled Test 2023-07-02 00:00:00 IMM Influenza Seasonal (>/= 19 yrs) [code = IMM Influenza Seasonal (>/= 19 yrs)] [facility] Scheduled Test 2023-06-02 00:00:00 IMM Influenza Seasonal (>/= 19 yrs) [code = IMM Influenza Seasonal (>/= 19 yrs)] [facility] Scheduled Test 2023-06-02 00:00:00 IMM Influenza Seasonal (>/= 19 yrs) [code = IMM Influenza Seasonal (>/= 19 yrs)] [facility] Scheduled Test 2023-06-02 00:00:00 IMM Influenza Seasonal (>/= 19 yrs) [code = IMM Influenza Seasonal (>/= 19 yrs)] [facility] Scheduled Test 2023-06-02 00:00:00 IMM Influenza Seasonal (>/= 19 yrs) [code = IMM Influenza Seasonal (>/= 19 yrs)] [facility] Scheduled Test 2023-06-02 00:00:00 IMM Influenza Seasonal (>/= 19 yrs) [code = IMM Influenza Seasonal (>/= 19 yrs)] [facility] Scheduled Test 2023-06-02 00:00:00 COVID-19 Vaccine ( season) [code = COVID-19 Vaccine ( season)] [facility] Scheduled Test 2023-06-02 00:00:00 IMM Influenza Seasonal (>/= 19 yrs) [code = IMM Influenza Seasonal (>/= 19 yrs)] [facility] Scheduled Test 2023-06-02 00:00:00 COVID-19 Vaccine ( season) [code = COVID-19 Vaccine ( season)] [facility] Scheduled Test 2023-06-02 00:00:00 IMM Influenza Seasonal (>/= 19 yrs) [code = IMM Influenza Seasonal (>/= 19 yrs)] [facility] Scheduled Test 2022-07-02 00:00:00 IMM Influenza Seasonal (>/= 19 yrs) [code = IMM Influenza Seasonal (>/= 19 yrs)] [facility] Scheduled Test 2022-07-02 00:00:00 IMM Influenza Seasonal (>/= 19 yrs) [code = IMM Influenza Seasonal (>/= 19 yrs)] [facility] Scheduled Test 2022-07-02 00:00:00 IMM Influenza Seasonal (>/= 19 yrs) [code = IMM Influenza Seasonal (>/= 19 yrs)] [facility] Scheduled Test 1992 00:00:00 Imm Pneumococcal 0-64 (1 - PCV) [code = Imm Pneumococcal 0-64 (1 - PCV)] [facility] Scheduled Test 1992 00:00:00 Imm Pneumococcal 0-64 (1 - PCV) [code = Imm Pneumococcal 0-64 (1 - PCV)] [facility] Scheduled Test 1992 00:00:00 Imm Pneumococcal 0-64 (1 - PCV) [code = Imm Pneumococcal 0-64 (1 - PCV)] [facility] Scheduled Test 1992 00:00:00 Imm Pneumococcal 0-64 (1 - PCV) [code = Imm Pneumococcal 0-64 (1 - PCV)] [facility] Scheduled Test 1992 00:00:00 Imm Pneumococcal 0-64 (1 - PCV) [code = Imm Pneumococcal 0-64 (1 - PCV)] [facility] Scheduled Test 1992 00:00:00 Imm Pneumococcal 0-64 (1 - PCV) [code = Imm Pneumococcal 0-64 (1 - PCV)] [facility] Scheduled Test 1992 00:00:00 Imm Pneumococcal 0-64 (1 - PCV) [code = Imm Pneumococcal 0-64 (1 - PCV)] [facility] Scheduled Test 1992 00:00:00 Imm Pneumococcal 0-64 (1 - PCV) [code = Imm Pneumococcal 0-64 (1 - PCV)] [facility] Scheduled Test 1992 00:00:00 Imm Pneumococcal 0-64 (1 of 2 - PCV) [code = Imm Pneumococcal 0-64 (1 of 2 - PCV)] [facility] Scheduled Test 1992 00:00:00 Imm Pneumococcal 0-64 (1 of 2 - PCV) [code = Imm Pneumococcal 0-64 (1 of 2 - PCV)] [facility] Scheduled Test 1992 00:00:00 Imm Pneumococcal 0-64 (1 of 2 - PCV) [code = Imm Pneumococcal 0-64 (1 of 2 - PCV)] [facility] Scheduled Test 1992 00:00:00 Imm Pneumococcal 0-64 (1 of 2 - PCV) [code = Imm Pneumococcal 0-64 (1 of 2 - PCV)] [facility] Scheduled Test 1986 00:00:00 COVID-19 Vaccine (#1) [code = COVID-19 Vaccine (#1)] [facility] Scheduled Test 1986 00:00:00 COVID-19 Vaccine (#1) [code = COVID-19 Vaccine (#1)] [facility] Scheduled Test 1986 00:00:00 COVID-19 Vaccine (#1) [code = COVID-19 Vaccine (#1)] [facility] Scheduled Test 1986 00:00:00 COVID-19 Vaccine (#1) [code = COVID-19 Vaccine (#1)] [facility] Scheduled Test 1986 00:00:00 COVID-19 Vaccine (#1) [code = COVID-19 Vaccine (#1)] [facility] Scheduled Test 1986 00:00:00 COVID-19 Vaccine (#1) [code = COVID-19 Vaccine (#1)] [facility] Scheduled Test 1986 00:00:00 COVID-19 Vaccine (#1) [code = COVID-19 Vaccine (#1)] [facility] Scheduled Test 1986 00:00:00 COVID-19 Vaccine (#1) [code = COVID-19 Vaccine (#1)] [facility] Scheduled Test 1986 00:00:00 COVID-19 Vaccine (#1) [code = COVID-19 Vaccine (#1)] [facility] Scheduled Test 1986 00:00:00 COVID-19 Vaccine (#1) [code = COVID-19 Vaccine (#1)] [facility] Scheduled Test 1986 00:00:00 Fluoride Varnish [code = Fluoride Varnish] [facility] Scheduled Test 1986 00:00:00 Fluoride Varnish [code = Fluoride Varnish] [facility] Encounters Start Date/Time End Date/Time Encounter Type Admission Type Attending [facility] Care Department Encounter ID Source 2022-06-15 12:36:45 Outpatient [facility] [id number] [facility] 2022-06-14 12:01:29 Emergency HFD HFD [id number] [facility] ent 2022-06-06 23:18:34 Outpatient [facility] [id number] [facility] 2022-06-06 23:16:04 Outpatient [facility] [id number] [facility] 2022-04-06 05:42:38 Outpatient [facility] [id number] [facility] 2020-12-14 08:08:00 Inpatient [facility] [id number] [facility] 2020-12-13 19:49:00 Inpatient [facility] LJ [id number] [facility] 2020-12-06 14:30:44 Inpatient [facility] [id number] [facility] 2024-01-02 00:00:00 2024-01-02 00:00:00 Patient Outreach Tatiana Allen 1..840.114 350.1.13.10 [id number] [id number] [facility] 2023-11-01 13:02:00 2023-11-01 14:34:00 Emergency X Ella GONZALEZ [facility] ERT [id number] [facility] 2023-11-01 13:02:00 2023-11-01 14:34:00 Emergency Ella Gonzalez [facility] 1..840.114 350.1.13.10 4.2.7.2.686 [id number] [facility] 2023-10-02 11:59:00 2023-10-02 12:42:00 Emergency X DEB BURGOS [facility] ERT [id number] [facility] 2023-10-02 11:59:00 2023-10-02 12:42:00 Emergency Deb Burgos [facility] 1.2.840.114 350.1.13.10 4.2.7.2.686 [id number] [facility] 2023-09-28 18:19:00 2023-09-28 19:26:00 Emergency [facility] [id number] [facility] 2023-09-28 18:19:00 2023-09-28 19:26:00 Emergency Dyana Jorgensen [facility] 1.2.840.114 350.1.13.10 4.2.7.2.686 [id number] [facility] 2023-09-28 00:00:00 2023-09-28 00:00:00 Orders Only Doctor Unassigned, Shindler [facility] 1.2.840.114 350.1.13.10 4.2.7.2.686 [id number] [facility] 2022-06-24 08:00:00 2022-06-24 08:30:00 Office Visit Fanta Hernandez [facility] 1.2.840.114 350.1.13.43 .[id number] [facility] 2022-06-20 00:00:00 2022-06-20 00:00:00 Outpatient [facility] [id number] [facility] 2022-06-06 12:34:00 2022-06-06 13:23:00 Emergency DANIEL PARKER [facility] ERT [id number] [facility] 2022-06-06 12:34:00 2022-06-06 13:23:00 Emergency Tim Beemer [facility] 1.2.840.114 350.1.13.10 4.2.7.2.686 [id number] [facility] 2022-06-03 00:00:00 2022-06-04 22:29:00 Emergency [facility] 1.2.840.114 350.1.13.43 .[id number] [facility] 2022-06-03 00:00:00 2022-06-04 22:29:00 Emergency [facility] [id number] [facility] 2022-06-03 23:37:47 2022-06-03 23:59:00 Outpatient [facility] [id number] [facility] 2022-06-03 21:28:26 2022-06-03 23:36:00 Outpatient [facility] [id number] [facility] 2022-05-23 13:09:00 2022-06-03 18:30:00 Hospital Encounter Jose F Reyes David S [facility] 1.2.840.114 350.1.13.43 .[id number] [facility] 2022-05-30 16:04:37 2022-05-30 16:04:39 Inpatient [facility] [id number] [facility] 2022-05-23 13:09:00 2022-05-23 13:09:00 Inpatient 1 LUPE BURCH [facility] [id number] [facility] 2022-05-22 19:04:00 2022-05-22 20:39:00 Emergency Kalina Meraz [facility] 1.2.840.114 350.1.13.43 .[id number] [facility] 2022-05-19 14:06:00 2022-05-19 19:49:00 Emergency 1 YEVGENIYDANIEL [facility] [id number] [facility] 2022-05-19 14:06:00 2022-05-19 19:49:00 Emergency Daniel Petit [facility] 1.2.840.114 350.1.13.43 .[id number] [facility] 2022-05-19 16:50:11 2022-05-19 17:04:43 Emergency [facility] [id number] [facility] 2022-05-18 10:13:00 2022-05-19 10:30:00 Inpatient [facility] [id number] [facility] 2022-05-11 22:33:18 2022-05-18 09:43:00 Inpatient KERLINE OMER [facility] [id number] [facility] 2022-05-11 19:53:00 2022-05-11 21:53:00 Emergency Daniel Petit [facility] [id number] [facility] 2022-05-11 19:53:00 2022-05-11 21:53:00 Emergency Daniel Petit [facility] [id number] [facility] 2022-05-11 16:54:18 2022-05-11 17:05:03 Emergency [facility] [id number] [facility] 2022-05-11 16:05:00 2022-05-11 16:05:00 Emergency 1 [facility] [id number] [facility] 2021-01-30 16:48:00 2021-01-30 23:59:00 Emergency Shy Martin [facility] 1.2.840.114 350.1.13.10 4.2.7.2.686 [id number] [facility] 2021-01-30 16:48:00 2021-01-30 16:48:00 Emergency X [facility] ERT [id number] [facility] 2021-01-30 00:00:00 2021-01-30 00:00:00 Orders Only Doctor Unassigned, [facility] 1..840.114 350.1.13.10 [id number] [facility] 2020-03-03 09:37:00 2020-03-03 09:37:00 Emergency X [facility] ERT [id number] [facility] Results Test Description Test Time Test Comments Results Result Co mments Source [id number] 11:04:16* Test Item Value Reference Range Interpretation Comme nts AFB Culture (test code = 543-9) No acid fast bacilli isolated in 6 weeks AFB Stain (test code = 676-7) No acid fast bacilli seen TRACY (test code = TRACY) Reference value: N o acid fast bacilli isolated [facility] Hmfamwj2089-21-40 11:04:16* Test Item Value Reference Range Interpretation Comme nts AFB Culture (test code = 543-9) No acid fast bacilli isolated in 6 weeks AFB Stain (test code = 676-7) No acid fast bacilli seen TRACY (test code = TRACY) Reference value: N o acid fast bacilli isolated [facility] Yyjznwm0978-58-36 21:02:46* Test Item Value Reference Range Interpretation Comme nts AFB Culture (test code = 543-9) No acid fast bacilli isolated in 6 weeks AFB Stain (test code = 676-7) No acid fast bacilli seen TRACY (test code = TRACY) Reference value: N o acid fast bacilli isolated [facility] Ologqgv3494-95-28 21:02:45* Test Item Value Reference Range Interpretation Comme nts AFB Culture (test code = 543-9) No acid fast bacilli isolated in 6 weeks AFB Stain (test code = 676-7) No acid fast bacilli seen TRACY (test code = TRACY) Reference value: N o acid fast bacilli isolated [facility] Eoyoxpf0582-97-88 20:02:40* Test Item Value Reference Range Interpretation Comme nts AFB Culture (test code = 543-9) No acid fast bacilli isolated in 6 weeks AFB Stain (test code = 676-7) No acid fast bacilli seen TRACY (test code = TRACY) Reference value: N o acid fast bacilli isolated [facility] Yjowbqb1990-92-75 19:03:24* Test Item Value Reference Range Interpretation Comme nts Fungus Culture (test code = 580-1) No fungus isolated in 4 weeks Fungus Stain (test code = 658-5) No fungal elements seen TRACY (test code = TRACY) Reference value: N o fungus isolated [facility] Sxfdcll3601-32-09 19:03:24* Test Item Value Reference Range Interpretation Comme nts Fungus Culture (test code = 580-1) No fungus isolated in 4 weeks Fungus Stain (test code = 658-5) No fungal elements seen TRACY (test code = TRACY) Reference value: N o fungus isolated [facility] Vplwxho5299-05-24 19:03:24* Test Item Value Reference Range Interpretation Comme nts Fungus Culture (test code = 580-1) No fungus isolated in 4 weeks Fungus Stain (test code = 658-5) No fungal elements seen TRACY (test code = TRACY) Reference value: N o fungus [facility] Oyrmkga4944-69-55 05:04:44* Test Item Value Reference Range Interpretation Comme nts Fungus Culture (test code = 580-1) No fungus isolated in 4 weeks Fungus Stain (test code = 658-5) No fungal elements seen TRACY (test code = TRACY) Reference value: N o fungus [facility] Abksjii4517-48-81 05:04:43* Test Item Value Reference Range Interpretation Comme nts Fungus Culture (test code = 580-1) No fungus isolated in 4 weeks Fungus Stain (test code = 658-5) No fungal elements seen TRACY (test code = TRACY) Reference value: N o fungus isolated [facility] Royznle6327-57-63 04:04:04* Test Item Value Reference Range Interpretation Comme nts Fungus Culture (test code = 580-1) No fungus isolated in 4 weeks Fungus Stain (test code = 658-5) No fungal elements seen TRACY (test code = TRACY) Reference value: N o fungus isolated [facility] Srdauci2618-33-38 06:33:06* Test Item Value Reference Range Interpretation Comme nts Anaerobe Culture (test code = 635-3) No anaerobes isolated in 5 days TRACY (test code = TRACY) Reference value: N o anaerobes isolated [facility]2022-09-05 06:33:06* Test Item Value Reference Range Interpretation Comme nts Anaerobe Culture (test code = 635-3) No anaerobes isolated in 5 days TRACY (test code = TRACY) Reference value: N o anaerobes isolated [facility]2022-09-05 06:33:06* Test Item Value Reference Range Interpretation Comme nts Anaerobe Culture (test code = 635-3) No anaerobes isolated in 5 days TRACY (test code = TRACY) Reference value: N o anaerobes isolated [facility]2022-09-05 06:33:06* Test Item Value Reference Range Interpretation Comme nts Anaerobe Culture (test code = 635-3) No anaerobes isolated in 5 days TRACY (test code = TRACY) Reference value: N o anaerobes isolated [facility] Gram Mkdkg2633-79-67 08:20:27* Test Item Value Reference Range Interpretation [...] the reference value is considered "No growth". [facility] & Gram Tfjud6892-04-45 08:20:27* Test Item Value Reference Range Interpretation [...] the reference value is considered "No growth". [facility] & Gram Prepk5543-75-35 08:20:27* Test Item Value Reference Range Interpretation [...] the reference value is considered "No growth". [facility] Culture & Gram Svltw5562-11-29 08:20:27* Test Item Value Reference Range Interpretation [...] [facility]/Abscess Culture & Gram Ppres1784-15-01 10:37:20* Test Item Value Reference Range Interpretation Comme nts Wound Culture (test code = 6463-4) 1+ Acid fast bacilli AA REFER TO [id number] Gram Stain (test code = 664-3) No organisms seen TRACY (test code = TRACY) Reference value: Non-sterile sites may be contaminated with esperanza that is considered normal or otherwise not clinically relevant. As appropriate, normal results will indicate the presence or absence of such esperanza. Otherwise, the reference value is considered "No growth". Lab Interpretation (test code = 17263-5) Abnormal [facility] Vdli9556-18-16 10:37:20* Test Item Value Reference Range Interpretation Comme nts Bacteria Spec Cult (test code = 6463-4) ACID-FAST BACILLUS AA 1+ Acid fast bacilliREFER TO [id number] Reference value: Non-sterile sites may be contaminated [...] 6463-4) Acid fast bacilli AA REFER TO [id number] Gram Stain (test code = 664-3) No organisms seen TRACY (test code = TRACY) Reference value: Non-sterile sites may be contaminated with esperanza that is considered normal or otherwise not clinically relevant. As appropriate, normal results will indicate the presence or absence of such esperanza. Otherwise, the reference value is considered "No growth". Lab Interpretation (test code = 39028-5) Abnormal [facility] Jvqm4867-99-70 10:36:38* Test Item Value Reference Range Interpretation Comme nts Bacteria Spec Cult (test code = 6463-4) ACID-FAST BACILLUS AA Acid fast bacilliREFER TO [id number] Reference value: Non-sterile sites may be contaminated [...] 6463-4) Acid fast bacilli AA REFER TO [id number] Gram Stain (test code = 664-3) No organisms seen TRACY (test code = TRACY) Reference value: Non-sterile sites may be contaminated with esperanza that is considered normal or otherwise not clinically relevant. As appropriate, normal results will indicate the presence or absence of such esperanza. Otherwise, the reference value is considered "No growth". Lab Interpretation (test code = 66926-2) Abnormal [facility] Hkic6922-20-48 10:35:39* Test Item Value Reference Range Interpretation Comme nts Bacteria Spec Cult (test code = 6463-4) ACID-FAST BACILLUS AA Acid fast bacilliREFER TO [id number] Reference value: Non-sterile sites may be contaminated with esperanza that is considered normal or otherwise not clinically relevant. As appropriate, normal results will indicate the presence or absence of such esperanza. Otherwise, the reference value is considered "No growth".[facility] Xyvxpwe8613-64-70 09:36:58 * Test Item Value Reference Range Interpretation Comme [facility] Anaerobe Culture (test code = 635-3) No anaerobes isolated in 5 days TRACY (test code = TRACY) Reference value: N o anaerobes isolated [facility] Yitvqxq4129-57-49 09:36:11* Test Item Value Reference Range Interpretation Comme [facility] Anaerobe Culture (test code = 635-3) No anaerobes isolated in 5 days TRACY (test code = TRACY) Reference value: N o anaerobes isolated [facility] Ykggybu3294-96-99 09:35:49* Test Item Value Reference Range Interpretation Comme [facility] Anaerobe Culture (test code = 635-3) No anaerobes isolated in 5 days TRACY (test code = TRACY) Reference value: N o anaerobes isolated [facility]SE [facility]ed hkkhyq2367-61-63 08:05:41* Test Item Value Reference Range Interpretation Comme [facility] Glucose POC (test code = 35146736) 107 mg/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 Lab Interpretation (test code = 94409-7) [facility]normal [facility] GLU[facility]SE POC docked nauqal3623-61-48 08:05:41* Test Item Value Reference Range Interpretation Comme nts Glucose POC (test code = 50305853) 107 mg/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 Lab Interpretation (test code = 50343-3) Abnormal [facility] GLU[facility]SE P[facility] docked bysrhd0024-81-61 08:05:41* Test Item Value Reference Range Interpretation Comme nts Glucose POC (test code = 75746339) 107 mg/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 Lab Interpretation (test code = 77876-0) Abnormal [facility] GLU[facility]SE POC docked jprxjn2586-81-94 08:05:41* Test Item Value Reference Range Interpretation Comme nts Glucose POC (test code = 88677658) 107 mg/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 Lab Interpretation (test code = 60828-1) Abnormal [facility] GLU[facility]SE P[facility] docked kuyags2087-89-34 16:50:48* Test Item Value Reference Range Interpretation Comme nts Glucose POC (test code = 61112376) 107 mg/dL 74-106 H Lab Interpretation (test cod e = 37893-7) Abnormal [facility] GLU[facility]SE POC docked bstaor3449-65-93 11:46:44* Test Item Value Reference Range Interpretation Comme nts Glucose POC (test code = 29110072) 89 mg/dL 74-106 Lab Interpretation (test cod e = 31232-4) Normal [facility] GLU[facility]SE POC docked hzansb5395-60-33 08:25:07* Test Item Value Reference Range Interpretation Comme nts Glucose POC (test code = 24000026) 83 mg/dL 74-106 Lab Interpretation (test cod e = 28347-9) Normal [facility] Fmlt2365-84-89 14:19:13* Test Item Value Reference Range Interpretation Comme nts Bacteria Spec Cult (test code = 6463-4) ACID-FAST BACILLUS AA 4+ Acid fast bacilli HHSHIV 1+2 Ab+HIV1 p24 Ag SerPl Ql [id number] 19:49:40* Test Item Value Reference Range Interpretation Comme nts HIV 1+2 Ab+HIV1 p24 Ag SerPl Ql IA (test code = 13727-4) NEGATIVE Negative HHSCoronavirus, CoVID-19, NLZ3625-19-12 16:40:22* Test Item Value Reference Range Interpretation Comments COVID-19 (SARS-COV-2) (test code = 66950-3) Not Detected Not Detected INTERPRETATION: No detectable [...] its performance characteristics were verified by the [facility] molecular diagnostics laboratory and is authorized for clinical diagnostic use. This laboratory is certified under the Clinical Laboratory Improvement Amendments (CLIA) as qualified to perform high complexity clinical laboratory testing. Lab Interpretation (test code = 93323-5) Normal [facility], CoVID-19, [id number] 16:40:22* Test Item Value Reference Range Interpretation Comments COVID-19 (SARS-COV-2) (test code = 11147-2) Not Detected Not Detected INTERPRETATION: No detectable [...] its performance characteristics were verified by the [facility] molecular diagnostics laboratory and is authorized for clinical diagnostic use. This laboratory is certified under the Clinical Laboratory Improvement Amendments (CLIA) as qualified to perform high complexity clinical laboratory testing. Lab Interpretation (test code = 31343-7) Normal [facility], CoVID-19, [id number] 16:40:22* Test Item Value Reference Range Interpretation Comments COVID-19 (SARS-COV-2) (test code = 78814-2) Not Detected Not Detected INTERPRETATION: No detectable [...] its performance characteristics were verified by the [facility] molecular diagnostics laboratory and is authorized for clinical diagnostic use. This laboratory is certified under the Clinical Laboratory Improvement Amendments (CLIA) as qualified to perform high complexity clinical laboratory testing. Lab Interpretation (test code = 67365-4) Normal [facility]Coronavirus, CoVID-19, [id number] 16:40:22* Test Item Value Reference Range Interpretation Comments COVID-19 (SARS-COV-2) (test code = 35667-8) Not Detected Not Detected INTERPRETATION: No detectable [...] its performance characteristics were verified by the [facility] molecular diagnostics laboratory and is authorized for clinical diagnostic use. This laboratory is certified under the Clinical Laboratory Improvement Amendments (CLIA) as qualified to perform high complexity clinical laboratory testing. Lab Interpretation (test code = 59403-5) [facility] RNA Resp Ql YOKASTA+oqkdj4502-18-13 16:40:22* Test Item Value Reference Range Interpretation Comme nts Hospitalized? (test code = 23688-0) No ICU? (test code = 58905-4) No Symptomatic as defined by CDC? (test code = 41283-0) No Employed in Healthcare? (test code = 36803-4) Unknown Resident in a congregate care setting (including nursing homes, residential care for people with intellectual and developmental disabilities, psychiatric treatment facilities, group homes, board and care homes, homeless intermediate, foster care or other): (test code = 94905-2) Unknown SARS-CoV-2 RNA Resp Ql YOKASTA+probe (test code = 90713-6) NOT DETECTED Not Detected INTERPRETATION: No detectable [...] its performance characteristics were verified by the [facility] molecular diagnostics laboratory and is authorized for clinical diagnostic use. This laboratory is certified under the Clinical Laboratory Improvement Amendments(CLIA) as qualified to perform high complexity clinical laboratory testing.HHSHIV 1+2 Ab+HIV1 p24 Ag SerPl Ql [id number] 17:45:02* Test Item Value Reference Range Interpretation Comme nts HIV 1+2 Ab+HIV1 p24 Ag SerPl Ql [place] (test code = 43490-0) NEGATIVE Negative PQLECNKFZCOMC9080-29-43 23:16:25* Test Item Value Reference Range Interpretation Comme nts SALICYLATE (test code = 3073634639) <10 mg/L TRACY (test code = TRACY) Therapeutic Range: ? Analgesic and Antipyretic Use ? 20-100 mg/L ? ? Anti-Inflammatory Use ? 100-250 mg/L Toxic Range: ? Greater than 300 mg/L [facility] 23:16:15* Test Item Value Reference Range Interpretation Comme nts ALCOHOL (test code = 4194733561) <10 mg/dL TRACY (test code = TRACY) <10 Ufhrzesc22-878 Toxic>100 Depression of RADIO ADJUSTER>400 Fatalities Reported [facility]aleACETAMINOPHEN2021-05-01 23:16:10* Test Item Value Reference Range Interpretation Comme nts ACETAMINOP (test code = 6005754400) <10.0 10.0-30.0 L TRACY (test code = TRACY) Toxic: Greater chela n 200 ug/mL @ 4 hour post ingestion or greater than 50 ug/mL @ 12 hour post ingestion Lab Interpretation (test code = 78703-5) Abnormal [facility]ale[facility]atic Function Panel (ALB, T.PRO, BILI T, BU/BC, ALT, AST, ALK PHOS)2021-01-30 23:14:14* Test Item Value Reference Range Interpretation Comme nts TOTAL BILI (test code = 3492830600) 0.8 mg/dL 0.1-1.1 BILI UNCON (test code = 8235831736) 0.6 mg/dL 0.1-1.1 BILI CONJ (test code = 7354327770) 0.0 mg/dL 0.0-0.3 T PROTEIN (test code = 0769646683) 7.5 g/dL 6.3-8.2 ALBUMIN (test code = 9994133204) 4.8 g/dL 3.5-5.0 ALK PHOS (test code = 7228546906) 63 U/L 34-122 ALTv (test code = 1742-6) 33 U/L 5-50 AST(SGOT) (test code = 0237731981) 36 U/L 13-40 Lab Interpretation (test cod e = 07112-9) Normal [facility] Met[facility] (NA, K, CL, CO2, GLUCOSE, BUN, CREATININE, CA)2021-01-30 23:13:54* Test Item Value Reference Range Interpretation Comme nts NA (test code = 0895170304) 142 mmol/L 135-145 K (test code = 3297437062) 4.3 mmol/L 3.5-5.0 CL (test code = 6289380921) 105 mmol/L 98-108 CO2 TOTAL (test code = 9842409094) 25 mmol/L 23-31 AGAP (test code = 0320740516) 2-16 BUN (test code = 4974202162) 17 mg/dL 7-23 GLUCOSE (test code = 9286821437) 86 mg/dL 70-110 CREATININE (test code = 4239449457) 0.85 mg/dL 0.60-1.25 CALCIUM (test code = 6774818515) 9.9 mg/dL 8.6-10.6 eGFR (test code = 1356177530) mL/min/1.73m2 TRACY (test code = TRACY) Association [...] or urine or abnormalities in imaging tests). [facility]ale[facility]INE [facility] (IMMUNOASSAY) - COMPREHENSIVE DRUG [id number] 23:05:57* Test Item Value Reference Range Interpretation Comme nts AMPHET (test code = 6171431011) Presumptive Positive Negative A CHACORTA U (test code = 1922054605) Negative Negative BENZO U (test code = 6777731348) Presumptive Positive Negative A Cocaine Metabolite (test code = 2820636682) Negative Negative METHADONE (test code = 8696967292) Negative Negative OPIATES (test code = 0323760714) Presumptive Positive Negative A PCP (test code = 1055152092) Negative Negative THC (test code = 8762950745) Presumptive Positive Negative A TRACY (test code [...] legal testing). Lab Interpretation (test code = 93625-3) Abnormal [facility]OVID[facility] (ID NOW RAPID TESTING)2021-01-30 22:34:55* Test Item Value Reference Range Interpretation Comme nts SARS-CoV-2 Rapid ID NOW (test code = 82094-1) Not Detected Not Detected TRACY (test code = TRACY) ID NOW COVID-19 As say is an isothermal nucleic acid amplification test intended for the qualitative detection of nucleic acid from SARS-CoV-2 viral RNA in nasopharyngeal (CHINCHILLA FARMER) specimens. It is used under Emergency Use [...] clinically indicated. Lab Interpretation (test code = 61797-1) Normal [facility]aleUrinalysis2021-05-01 22:30:19* Test Item Value Reference Range Interpretation Comme nts APPEARANCE (test code = 1663069699) Clear Clear COLOR (test code = 5885720545) Yellow Yellow PH (test code = 5946251254) 4.8-8.0 SP GRAVITY (test code = 8119656663) 1.003-1.030 GLU U QUAL (test code = 5645272234) Normal Normal BLOOD (test code = 7459048711) Negative Negative KETONES (test code = 3045879129) Negative Negative PROTEIN (test code = 2887-8) Negative Negative UROBILIN (test code = 9943319040) 2.0 mg/dL Normal A BILIRUBIN (test code = 1486619500) Negative Negative NITRITE (test code = 1623356853) Negative Negative LEUK DIONE (test code = 3224343391) Negative Negative RBC/HPF (test code = 3367355066) See_Comment [Automated messa ge] The system which generated this result transmitted reference range: 0 - 3 HPF. The reference range was not used to interpret this result as normal/abnormal. WBC/HPF (test code = 7110424368) <1 See_Comment [Automated messa ge] The system which generated this result transmitted reference range: 0 - 5 HPF. The reference range was not used to interpret this result as normal/abnormal. BACTERIA (test code = 1897461947) Negative Negative SQ EPITH (test code = 6474046288) <1 HPF Lab Interpretation (test code = 01012-6) Abnormal [facility] with Fjnijubicuut6546-04-39 22:19:35* Test Item Value Reference Range Interpretation [...] 34.6 g/dL 31.2-35.0 RDW-SD (test code = 32110-9) 42.8 fL 38.5-51.6 RDW-CV (test code = 788-0) 13.3 % 12.1-15.4 PLT (test code = 777-3) See_Comment H [Automated messa ge] The system which generated this result transmitted reference range: 150 - 328 10*3/?L. The reference range was not used to interpret this result as normal/abnormal. MPV (test code = 90989-7) 9.9 fL 9.8-13.0 NRBC/100 WBC (test code = 3010546802) See_Comment [Automated Arimaz ssage] The system which generated this result transmitted reference range: 0.0 - 10.0 /100 WBCs. The reference range was not used to interpret this result as normal/abnormal. NRBC x10^3 (test code = 2602927970) <0.01 See_Comment [Automated messa ge] The system which generated this result transmitted reference range: 10*3/?L. The reference range was not used to interpret this result as normal/abnormal. GRAN MAT (NEUT) % (test code = 770-8) 79.2 % IMM GRAN % (test code = 0015385381) 0.50 % LYMPH % (test code = 736-9) 14.8 % MONO % (test code = 5905-5) 4.9 % EOS % (test code = 713-8) 0.2 % BASO % (test code = 706-2) 0.4 % GRAN MAT x10^3(ANC) (test code = 6174720573) 9.77 10*3/uL 1.99-6.95 H IMM GRAN x10^3 (test code = 5889703914) 0.06 10*3/uL 0.00-0.06 LYMPH x10^3 (test code = 731-0) 1.82 10*3/uL 1.09-3.23 MONO x10^3 (test code = 742-7) 0.60 10*3/uL 0.36-1.02 EOS x10^3 (test code = 711-2) 0.03 10*3/uL 0.06-0.53 L BASO x10^3 (test code = 704-7) 0.05 10*3/uL 0.01-0.09 Lab Interpretation (test code = 61024-4) [facility]normal [facility] [id number] 20:48:00* Test Item Value Reference Range Interpretation Comme nts COVID 19 INHOUSE AG (test co de = [id number]) NEGATIVE URINALYSIS IDNDVCCN3328-62-28 16:11:00* Test Item Value Reference Range Interpretation [...] Urine Source? Clean CatchDRUGS OF ABUSE SCREEN [id number] 16:11:00* Test Item Value Reference Range Interpretation [...] (test code = AMPHETURN) NEGATIVE See_Comment [Automated [employer] hay] The system which generated this result transmitted reference range: <1000 ng/mL. The reference range was not used to interpret this result as normal/abnormal. URN BARBITURATE (test code = BARBITURN) NEGATIVE See_Comment [Automated [employer] ahy] The system which generated this result transmitted [...] (test code = OPIATURN) NEGATIVE See_Comment [Automated Luaa ge] The system which generated this result [...] (test code = METHAURN) NEGATIVE See_Comment [Automated Luaa ge] The system which generated this result transmitted reference range: <300 ng/mL. The reference range was not used to interpret this result as normal/abnormal. Urine Source? Clean CatchURINALYSIS TWRCWAVF1781-82-13 15:45:00* Test Item Value Reference Range Interpretation [...] Urine Source? Clean CatchDRUGS OF ABUSE SCREEN [id number] 15:45:00* Test Item Value Reference Range Interpretation Comme nts URN COCAINE (test code = COCAURN) NEGATIVE See_Comment [Automated Luaa ge] The system which generated this result transmitted reference range: <300 ng/mL. The reference range was not used to interpret this result as normal/abnormal. URN CANNABINOIDS (test code = CANNABURN) NEGATIVE See_Comment [Automated [employer] hay] The system which generated this result transmitted reference range: <50 ng/mL. The reference range was not used to interpret this result as normal/abnormal. URN AMPHETAMINE (test code = AMPHETURN) NEGATIVE See_Comment [Automated [employer] hay] The system which generated this result transmitted reference range: <1000 ng/mL. The reference range was not used to interpret this result as normal/abnormal. URN BARBITURATE (test code = BARBITURN) NEGATIVE See_Comment [Automated [employer] hay] The system which generated this result [...] OPIATES (test code = OPIATURN) See_Comment [Automated Luaa ge] The system which generated this result [...] result as normal/abnormal. Urine Source? Clean CatchURINALYSIS YGLMIUTN3529-96-87 14:21:00* Test Item Value Reference Range Interpretation [...] Urine Source? Clean CatchDRUGS OF ABUSE SCREEN [id number] 14:21:00* Test Item Value Reference Range Interpretation [...] result as normal/abnormal. Urine Source? Clean CatchURINALYSIS [id number] 14:18:00* Test Item Value Reference Range Interpretation [...] Urine Source? Clean CatchDRUGS OF ABUSE SCREEN [id number] 14:18:00* Test Item Value Reference Range Interpretation Comme nts URN COCAINE (test code = COCAURN) See_Comment [Automated Luaa ge] The system which generated this result transmitted reference range: <300 ng/mL. The reference range was not used to interpret this result as normal/abnormal. URN CANNABINOIDS (test code = CANNABURN) See_Comment [Automated [employer] hay] The system which generated this result [...] BARBITURATE (test code = BARBITURN) See_Comment [Automated Luaa ge] The system which generated this result [...] OPIATES (test code = OPIATURN) See_Comment [Automated Luaa ge] The system which generated this result [...] as normal/abnormal. Urine Source? Clean CatchBASIC METABOLIC [id number] 12:13:00* Test Item Value Reference Range Interpretation [...] CA) 9.9 mg/dL 8.5-10.1 N HEPATIC FUNCTION [id number] 12:13:00* Test Item Value Reference Range Interpretation [...] reference range due to change in reagent. NJXGCOAZUIVGU0550-20-19 12:13:00* Test Item Value Reference Range Interpretation Comme nts ACETAMINOPHEN (test code = ACET) < 10 mcg/mL 10-30 L A RANGE OF 10-30 mcg/mL IS A THERAPEUTIC RANGE. TOXIC CONCENTRATIONS: >150 mcg/mL AT 4 HOURS AFTER INGESTION >= 50 mcg/mL AT 12 HOURS AFTER INGESTION ZWJTPOEVBZ8897-12-49 12:13:00* Test Item Value Reference Range Interpretation Comme nts SALICYLATE (test code = RENALDO) < 3.0 mg/dL 2.8-20.0 N [id number] 12:13:00* Test Item Value Reference Range Interpretation [...] ANADDITIONAL CHARGE TO THE PATIENT. CBC W/O [id number] 11:49:00* Test Item Value Reference Range Interpretation [...] 9.7 fL 6.7-11.0 N COVID 19 INHOUSE [id number] 00:12:00* Test Item Value Reference Range Interpretation Comme nts COVID 19 INHOUSE AG (test co de = [id number]) NEGATIVE URINALYSIS [id number] 20:58:00* Test Item Value Reference Range Interpretation [...] Urine Source? Clean CatchDRUGS OF ABUSE SCREEN [id number] 20:58:00* Test Item Value Reference Range Interpretation [...] as normal/abnormal. Urine Source? Clean CatchBASIC METABOLIC [id number] 20:58:00* Test Item Value Reference Range Interpretation [...] CA) 8.8 mg/dL 8.5-10.1 N HEPATIC FUNCTION ELFKP2622-16-01 20:58:00* Test Item Value Reference Range Interpretation [...] reference range due to change in reagent. [id number]-[id number] 20:58:00* Test Item Value Reference Range Interpretation Comme nts TROPONIN-I (test code = TROPI) < 0.006 ng/mL 0-0.045 N SUGQOUNEMJJPS2773-25-62 20:58:00* Test Item Value Reference Range Interpretation Comme nts ACETAMINOPHEN (test code = ACET) < 10 mcg/mL 10-30 L A RANGE OF 10-30 mcg/mL IS A THERAPEUTIC RANGE. TOXIC CONCENTRATIONS: >150 mcg/mL AT 4 HOURS AFTER INGESTION >= 50 mcg/mL AT 12 HOURS AFTER INGESTION EQYGEQVHWL1461-16-27 20:58:00* Test Item Value Reference Range Interpretation Comme nts SALICYLATE (test code = RENALDO) < 3.0 mg/dL 2.8-20.0 N [id number] 20:58:00* Test Item Value Reference Range Interpretation [...] TO THE PATIENT. - CT HEAD/BRAIN W/O [id number] 20:52:00 [facility])Name: TEJ GUADALUPE : 1985 Sex: M Name: TEJ GUADALUPE [facility] : 1985 Age/S: 35 / M [address] [facility] Unit #: [id number] Loc: DEISY Saenz [address] Phys: Shaggy Morrow MD Acct: [id number] Dis Date: Status: PRE ER PHONE #: [phone] Exam Date: 12/13/20202017 FAX #: [phone] Reason: CONFUSION EXAMS: CPT CODE: [id number] CT HEAD/BRAIN W/O CONT 75503 HISTORY: CONFUSION TECHNIQUE: Noncontrast 2.5 mm axial [...] 12/13/2020 (2054) PAGE 1 Signed Report URINALYSIS [id number] 20:39:00* Test Item Value Reference Range Interpretation [...] Urine Source? Clean CatchDRUGS OF ABUSE SCREEN [id number] 20:39:00* Test Item Value Reference Range Interpretation Comme nts URN COCAINE (test code = COCAURN) See_Comment [Automated Luaa ge] The system which generated this result transmitted reference range: <300 ng/mL. The reference range was not used to interpret this result as normal/abnormal. URN CANNABINOIDS (test code = CANNABURN) See_Comment [Automated SimpleLegal hay] The system which generated this result transmitted reference range: <50 ng/mL. The reference range was not used to interpret this result as normal/abnormal. URN AMPHETAMINE (test code = AMPHETURN) See_Comment [Automated Luaa ge] The system which generated this result transmitted reference range: <1000 ng/mL. The reference range was not used to interpret this result as normal/abnormal. URN BARBITURATE (test code = BARBITURN) See_Comment [Automated Luaa ge] The system which generated this result [...] OPIATES (test code = OPIATURN) See_Comment [Automated Luaa ge] The system which generated this result [...] METHADONE (test code = METHAURN) See_Comment [Automated Luaa ge] The system which generated this result transmitted reference range: <300 ng/mL. The reference range was not used to interpret this result as normal/abnormal. Urine Source? Clean CatchURINALYSIS [id number] 20:29:00* Test Item Value Reference Range Interpretation [...] Urine Source? Clean CatchDRUGS OF ABUSE SCREEN [id number] 20:29:00* Test Item Value Reference Range Interpretation Comme nts URN COCAINE (test code = COCAURN) See_Comment [Automated Luaa ge] The system which generated this result transmitted reference range: <300 ng/mL. The reference range was not used to interpret this result as normal/abnormal. URN CANNABINOIDS (test code = CANNABURN) See_Comment [Automated [employer] hay] The system which generated this result [...] this result as normal/abnormal. Urine Source? [facility]HIG[facility] W/O [id number] 20:22:00* Test Item Value Reference Range Interpretation [...] Notes Date/Time Note Provider Source 2022-06-01 16:47:23 nWmuz+WT/O6lILoRA/Ac tGSpHtTF+dP lt/s6zJ+1qWJ+7IJwo4kzTwsnYOkmZK /n9407-72-06K14:47:23Associated Order(s): CONSULT TO PHARMACY-AMINOGLYCOSIDESFormatt ing of this [...] with any questions. Sil Soliz, Pharm.D., BCIDPClinical Exercise Science Internship - Infectious DiseasesCisco: [id number] signed by Sil Soliz [facility] at 06/01/2022 4:48 PM KQE03938-9Qdwpcbk nqmgVL3160-51-80Y73:48:27Consul t noteTXT1.2.840.582706.1.13.43.2 .7.2.056140|4015162405YZPtwcani for patient ysnw88538-5Ldpovmc vtqgWC032150038Iznoxli Ayn Finch [facility] RjjlPgsvpsgBcncsurOGKC098144457 5KYGT4177-20-59J27:48:271.2.840 .963724.1.72.3.15|1.2.840.06186 0.1.13.43.2.7.2.727879_[id number] 31 Sil Jelani Soliz [facility] 2022-05-31 16:00:25 lfSkEDfj7XWmkh22+jXs iFpNSMteV1E d9VqDPizaAmy2IKq4oL/6OSpRxHOyvB lb3710-54-46M79:00:25 Pharmacy Aminoglycoside Monitoring NoteIndication: NTM SSTI/abscessDay of [...] with any questions. Sil Soliz, Pharm.D., BCIDPClinical Exercise Science Internship - Infectious DiseasesCisco: [id number] signed by Sil Soliz [facility] at 05/31/2022 4:00 PM BNO02898-8Ekpphjk gbwhCI0657-95-90N81:00:59Consul t noteTXT1.2.840.349735.1.13.43.2 .7.2.342849|8978219058WRGceuqpu for patient wrcz83551-2Sgsdmwx noteLNKindred Hospital Lima2525 [facility] HospitalVswqXtwoabtLwkfmeaVNMJ500677411 8ZORV9636-39-42F83:00:591.2.840 .869734.1.72.3.15|1.2.840.39814 0.1.13.43.2.7.2.727879_[id number] 47 [facility] 2022-05-30 14:28:02 J+3r5wZCOwZa3mRb1jSk CDgwJN6ioH3 3tJSzBpOgbKRSjiiHmJhmSnCLiPXgAI Ax6560-38-28C61:28:02 Pharmacy Aminoglycoside Monitoring NoteIndication: NTM SSTI/abscessDay of [...] with any questions. Sil Soliz, Pharm.D., BCIDPClinical Exercise Science Internship - Infectious DiseasesCisco: [id number] signed by Sil Soliz [facility] at 05/30/2022 2:36 PM PPV71564-6Dyyonna plbaMI0061-65-39A42:36:01Consul t noteTXT1.2.840.720326.1.13.43.2 .7.2.537139|6577209062WYAnqljby for patient dmif13999-4Khoyvxh [address] StreetTXTX[address] 2PIMI3975-42-06L97:36:011.2.840 .477035.1.72.3.15|1.2.840.16186 0.1.13.43.2.7.2.727879_[id number] [address] [place] [address] 2022-05-29 12:08:26 MpzhUkT+kPo1uPJj8IiP lDaQb5WuE78 LOHX40JulJgipmXjyCsJ90qPrNaR+Dy Ed0529-47-58D81:08:26 Pharmacy Aminoglycoside Monitoring NoteIndication: NTM SSTI/abscessDay of [...] contact us with any questions. Mariam Lepe [facility].BCOPClinical Exercise Science Internship Hematology/OncologyCisco : [phone] signed by Mariam Lepe [facility] at 05/29/2022 12:09 PM FFC09254-6Mdvfrgk bikaBW1731-05-15R27:09:49Consul t noteTXT1.2.840.431940.1.13.43.2 .7.2.016893|3267946329MCYvhhtgj for patient qfiy19302-1Kylpfnx vpfwYT27630480Ufloaoh Rost[address] StreetTXTX[address] 6QQVS3625-93-33T22:09:491.2.840 .612238.1.72.3.15|1.2.840.61243 0.1.13.43.2.7.2.727879_[id number] 42 Mariam [facility] 2022-05-28 10:27:53 CiCDJnTJGN/ffj4849s8 bYxbmE4VkAa ZKZGfqp2jadvgNbTXum0zhli8KEdex1 at9366-22-80J64:27:53 Pharmacy Aminoglycoside Monitoring NoteIndication: NTM SSTI/abscessDay of [...] contact us with any questions. Mariam Lepe [facility].BCOPClinical Exercise Science Internship Hematology/OncologyCisco : [phone] signed by Mariam Lepe RP at 05/28/2022 10:29 AM HIN38769-6Xundvgj ffwaTZ9031-01-75F61:29:36Consul t noteTXT1.2.840.943662.1.13.43.2 .7.2.402721|2883984729SNNbcjany for patient qjrs50398-5Jtgnblu [facility]2525 [facility] HospitalXonqUlxlqfmVoqpwtfEAYO327565373 4HOWI0148-88-61P14:29:361.2.840 .442591.1.72.3.15|1.2.840.69584 0.1.13.43.2.7.2.727879_[id number] [address] [place] [address] 2022-05-27 12:23:47 LSfykD9s7yi1pxTtiERb g4HEswDXTSW 4jWARlFav2ACr1BB2Y5RWGTEtASWu7E dc8779-21-49D73:23:47 Pharmacy Aminoglycoside Monitoring NoteIndication: NTM SSTI/abscessDay of [...] us with any questions. Ruchi Olsen, PharmD, [facility]ITALCPPhone: [phone] signed by Ruchi OlsenWESTERN MISSOU[facility] at 05/27/2022 1:04 PM OMS93886-5Uqkclza cvnaWK6491-39-61P38:04:50Consul t noteTXT1.2.840.986613.1.13.43.2 .7.2.226743|3831752736PFTwcontl for patient pzzx07324-2Cxvajvz tpifKL994166515Nvqw Sigmon [id number] 0IGNC7506-58-37R86:04:501.2.840 .475300.1.72.3.15|1.2.840.70033 0.1.13.43.2.7.2.727879_[id number] 11 Ruchi Olsen [facility] 2022-05-26 09:18:39 03Y3y6/WZOAudXV8++ck 13NUwMhkYaI 9U7Sxb8Wyh/teMIJyA5BsViil9R1YHX BK7097-00-67H52:18:39 Pharmacy Aminoglycoside Monitoring NoteIndication: NTM SSTI/abscessDay of therapy: 2 Target concentration: dosing per [place] nomogram, targeting goal peak ~25-45 mcg/mL, trough ~5 mcg/mL Concomitant antibiotics: Azithromycin, tigecyclineAllergies: No known allergies Pertinent Objective Labs: Date dose/frequency concentration (peak/trough/random) 05/26 800mg q24h 5.9 (9h random) Microbiology:pending Assessment:1. CrCl: >120,Scr/BUN stable, 2. Continues on amikacin 800mg (10mg/kg) q24h 3. Random 9h level obtained today demonstrates dose appropriate per [place] nomogramPlan: 1. Will Continue current dose2. Labs Ordered: will order 2 levels: 2-h and 8-h post dose levels to confirm Thank you for the opportunity to participate in the care of this patient. Please do not hesitate to contact us with any questions. Ruchi Olsen, PharmD, [facility]ITALCPPhone: [phone] signed by Ruchi Olsen [facility] at 05/26/2022 9:36 AM FDT57820-0Vhzayxi dfpvNU7959-62-13X67:36:50Consul t noteTXT1.2.840.101278.1.13.43.2 .7.2.228556|2283531730YBTspmwvb for patient jgvw16999-7Ezbfwcd [facility]2525 [facility] HospitalQcdcVvrgcdyQdfzgaoRZNR292233701 1MLBV9888-75-40Q68:36:501.2.840 .966324.1.72.3.15|1.2.840.19118 0.1.13.43.2.7.2.727879_[id number] [address] [place] [address] 2022-05-25 08:07:02 RYWxkVL/O2MCJTa3s7fa ITV7SjiHTtC QDoWoW/YkRl5IY1gb1vJbn4c3WcGibR cZ3155-27-67J53:07:02Associated Order(s): IP CONSULT TO INFECTIOUS DISEASE Images [...] another attempt at antibiotics and I&D at [facility]. He came back with worsening lesions and was admitted for same. We are consulted for his cultures growing AFB 4+. 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 for ID and sensis- growth from a [...] this fascinating caseArash Obando MD, PhD [facility] Infectious DiseasesProvider #[id number] 2021 8:09 AM H istory Obtained From: [...] homeless. He has not travelled outside of [place] recently and does not have any sick [...] and documented in the appropriate sections in [employer].Immunization history: There is no immunization history on [...] Data: All labs, images, and data reviewed. 68350-2Dtvogfn hunfWX9649-82-22Y97:04:27Consul t noteTXT1.2.840.093848.1.13.43.2 .7.2.677621|1905925400RUCtwelfv for patient vkud37191-1Ltziquv noteMontefiore Health System2525 [facility] HospitalTnvrYrgavxcUywvqouHLCO676388672 6ULTS6751-06-15K12:04:271.2.840 .003752.1.72.3.15|1.2.840.10908 0.1.13.43.2.7.2.727879_[id number] 10 [facility] 2022-05-23 21:39:21 /1yltbwvdvkwX2swoUkG op4jgdCMInq G7yji5hjpiDm2oU2KmVplgD2k4AGOw4 Ic8592-40-61I21:39:21Associated Order(s): IP CONSULT TO HAND SURGERY Plastic [...] to followChristopher Germán, MDPlastic and Reconstructive Surgery, GHB1HxihfxMills-Peninsula Medical CenterPager: [phone] 2021 9:39 PMSubjective: Chief Complaint: forearm painHistory [...] with no changes. No need to repeat 99489-1Gwdmgxy nkxnRD716980UpukepusitAdrian Anderson B1.2.840.877661.1.13.43.2.7.2.8 87070GiqprcwlcnKbkksClwlm UIQ7000-33-63Q55:42:00Consult noteTXT1.2.840.964198.1.13.43.2 .7.2.051402|0674088432XRCyzcvbn for patient jxbn32890-0Rdjypol noteMontefiore Health System2525 [facility] HospitalVszgOxnjytrExvvcsbROBO032669081 5JPZL6242-90-47I63:50:061.2.840 .183925.1.72.3.15|1.2.840.85370 0.1.13.43.2.7.2.727879_[id number] 43 [facility] History and Physical Notes Date/Time Note Provider Source 2022-05-23 22:01:59 7hNX885yyS90bj9whUxw NuvsRLhHcGO 5IIRFHf6Z3stK0oS0QLm9WWU1n0hfJK BY5035-37-04E64:01:59 Medicine Team B Admission History & PhysicalAssessment/Plan:Tej [...] CODEEmergency Contact: Primary Emergency Contact: Lydia GUADALUPE, Fxzvu [facility] JLT7GmdsfzMills-Peninsula Medical Center10:02 PM, 05/23/2022 Chief Complaint: forearm pain History [...] Please see my separate note for my attestation.54572-6Dukokws and physical xonpJI624484Wxrxe, Vishal1.2.840.059385.1.13.43.2. 7.2.527829IymquFjlrpxB, DV5247-54-88F84:10:26History and physical noteTXT1.2.840.804716.1.13.43.2 .7.2.931486|4857353016CCDurzfcz for patient suxv02627-5Xuykxvm and physical noteLNInternal MedicineInternal MedicineKindred Hospital Lima2525 [facility] HospitalUridGtfcavuYwbvecfWLTX277360535 5RYIH9268-55-29K44:10:261.2.840 .998057.1.72.3.15|1.2.840.10359 0.1.13.43.2.7.2.727879_[id number] Internal Medicine [facility] Procedure Notes Date/Time Note Provider Source 2022-05-31 08:35:51 6cAPi19SM5bAca8N22wx eDX3ORA5soC1pBdeF 3n3mmU93GML9YocgGH4Lu+Ls+W96063-29-52 T08:35:51Procedure(s): I& D OF ABSCESS WITH PACKING [...] no complicationsChristopher JUAN Dunlaplastic and Reconstructive Surgery, CCT7VadzkgMills-Peninsula Medical CenterPager: [phone] 2021 8:36 AM 94856-6Paexggaei ajfoMC935598Uh, Jessie1.2.840.533517.1.13.43.2.7.2.83 1868ClOesgwqZQ2168-05-35E83:00:54Proc edgar noteTXT1.2.840.001805.1.13.43.2.7.2.7 11079|3655061429EDKogcqqwcu for patient ulry41726-6Lumbiwrpj noteLNKindred Hospital Lima2525 [facility] HospitalLyhiSznpvudXclejyfOWKB4417865256AHZH3 829-75-39Y53:49:121.2.840.608975.1.72 .3.15|1.2.840.923750.1.13.43.2.7.2.72 7879_[id number] [facility] 2022-05-24 16:29:09 gqmkzR/+5qorxJK6Zcvz 0aSDqgGzs0efyi4mk nVXFKvCzbtR7nQ+0b6C8k3TVkwU1917-21-07 T16:29:09Procedure(s): I& D OF ABSCESS WITH PACKING [...] 1Dressings: AppliedEstimated Blood Loss: MinimalSpecimens Collected: Culture s9Omqxniekqrqer: nonePrimary Proceduralist: MULU Carrilloupervising Physician: JUAN Andersonrocedure [...] the microbiology lab.JUAN Geelastic and Reconstructive Surgery, MOG0Yvnwbo[address] [place], [place] [address]Pager: [phone] 4:30 PM 62071-0Ckeqmlyxt uqtgNC940564NjylcsnhknAdrian Anderson B1.2.840.599875.1.13.43.2.7.2.340522X BobbyoAligiaSinging River GulfportIQC5991-11-04Q92:42:01Procedure noteTXT1.2.840.731461.1.13.43.2.7.2.7 12309|0600206992UTXvykbhgnb for patient zprj50197-3Tfygdzzkf noteLNKindred Hospital Lima2525 [facility] HospitalMqdtWefiplyVscxmdsOQBM6462036032OLWX9 660-07-48Q39:41:491.2.840.520934.1.72 .3.15|1.2.840.838750.1.13.43.2.7.2.72 7879_[id number] [facility] Notes Date/Time Note Provider Source 2023-11-01 14:19:23 XSAlRqP6/8jlVFixHrjT6EWUEjmozPhNs5moAJ lhCG7FAaSSOG1te9b1VHFRhrWD9158-74-65J0 4:19:23 Chief ComplaintPatient presents withAnxietyRefill RequestPast Medical [...] [place] [address]-4Pvxcvsxyx department PscqJL9105-20-49T06:20:13Emerark[facility] department NoteTXT1.2.840.217901.1.13.104.2.7.2.7 89484|1655833153GDFcmkxxbvm for patient wtfu75649-1HnurOHHATSBPXEAUhuactvhs C-CDA narrative ioqz028645218Cmmjtdvp M Jordy MARTINI[address]TXTX[address]US KKAFGGJZSTVEBQGYTYVT1340-32-89D13:20:1 31.2.840.929817.1.72.3.15|1.2.840.1143 50.1.13.104.2.7.2.727879_[id number] Kelly Porter Jordy RN [facility] 2023-11-01 13:00:35 uParyPKv/SkoPRL4EO3B9Y3jbsP4DB9J9nbaaY rmt38oBZPRlkfbNTxqlMI0rvIb4858-28-68K6 3:00:35 Patient to ED for anxiety due to doesn't have any of his clonazepam 2mg tabs anymore. He recently lost his grandmother and grandfather and been taking more than he is supposed to. He has been in withdrawal for 5 days. 32771-0Pkjojcvui department Triage tvjlSJ9333-31-53D07:01:57Emerarkansas [facility] hospital department Triage noteTXT1.2.840.626080.1.13.104.2.7.2.7 70030|6165001102SWCwuwpffpp for patient ipds26879-1Msgfvsjno department NoteLNNARRATIVEFormatted C-CDA narrative swui210006698Xkeiydmjos Hawkins RN[address]TXTX[address]75[address]US KREAZFTTVJEMVCFORXEM9556-63-98W34:01:5 71.2.840.824939.1.72.3.15|1.2.840.1143 50.1.13.104.2.7.2.727879_[id number] Chucky Hawkins RN [facility] 2023-10-02 12:30:00 4VmbgCjaQFmLOs6bzSQYaJhyncW0er9wC/4AnK z83gOnGo01iXJWLjPXfYTOW0Fc5730-85-31A0 2:30:00 Pt given printed and verbal discharge [...] with steady gait, in no apparent distress. 97174-2Ffpzookmz department ZuhgDV1821-03-05P11:30:56Emergency department NoteTXT1.2.840.831998.1.13.104.2.7.2.7 50422|8786001372BRVujmfihxc for patient szyt35525-5OsjgOQZPSNALRDMXvdspnmqt C-CDA narrative bqhw870994730ZobeiAyah Ruffin RN[address] JmxjOginjhraqEfjntcdldRDDY5277195739VO FGMLOUDKWBUAUMYQNKWI0777-38-67W99:30:5 61.2.840.197353.1.72.3.15|1.2.840.1143 50.1.13.104.2.7.2.727879_[id number] Ayah Ruffin RN [facility] 2023-10-02 11:56:31 9AdBXxxOmTxwVi6JUlIv/4J8jNPUd6Y26JVsz5 XMz6RoUHdk3W+3xbcYVfxANYT/9319-40-36U6 1:56:31 Patient states: "I came here yesterday and checked in but I left. I'm detoxing off klonopin. I wanted to know if yall can refill it. My doctor doesn't do klonopin anymore." 14567-2Hdqwbqrry department Triage zvxaIQ9274-02-70V55:57:33Emer[facility] department Triage noteTXT1.2.840.365301.1.13.104.2.7.2.7 47250|9378885614MCChcpklpee for patient tbvu20329-8Tsvbjeolo department NoteLNNARRATIVEFormatted C-CDA narrative mgjx221323208Auqkl M Cruz RN[address] ZkaiSkzntrjauFwedemembUBWY1330770185LO WAWTVBGDCTCUFZZYEIMM9982-20-86X37:57:3 31.2.840.544678.1.72.3.15|1.2.840.1143 50.1.13.104.2.7.2.727879_[id number] Elisabeth Soto RN [facility] 2023-10-02 11:43:00 Fvp6ZThDy1pMNuBRI7UeNKtHu08Pk5hRCwwO2o Xr/89F8uo4SDhhUsWbX5JIn3bF7414-13-53P1 1:43:00 [facility] Emergency Department NotePatient Name: Tej Reyna of : 1985 38 year old maleTreatment Room: [facility] Record Number: [id number] Care Physician: Rene Smith (Inactive)Patient Escorted by: [...] Complaint:Chief ComplaintPatient presents withOtherMedication refillHistory of Present Illness:KBD38zp M with anxiety and prescribed klonopin 2mg presents today needing refill. He states he is not doing good, feels his heart racing and keeps breaking out into sweats. He states he is trying to get ahold of [facility] and anybody else who can see [...] 1 mgFirst Provider Eval:ED EventsDate/Time Event User Rftreyrq94/01/24 1207 Medical Screening Begins DEB BURGOS MD [...] on fileFollow-up:Electronically signed by:Deb Burgos DO10/02/23 1220 19820-9Xaxnkozoj Emergency department YbozVP1104-14-92R35:20:50Physician Emergency department NoteTXT1.2.840.562068.1.13.104.2.7.2.7 65833|3207971921VTAoxgdfhlk for patient gyfm41837-4Rzomqkcbk department NoteLNNARRATIVEFormatted C-CDA narrative textUT[address]TXTX7755577555US MIMEEIZZMFBWQKJCDVPK4107-12-57D22:20:5 01.2.840.569097.1.72.3.15|1.2.840.1143 50.1.13.104.2.7.2.727879_[id number] [facility] 2023-09-28 19:25:10 pEOZLLMh+H2oxQLP76D88om2KWKtKHytysbJVx 7M83UCBT6qydflxiFKY5KerYuA8742-83-52G3 9:25:10 Pt unable to be located. Never was seen by provider. 22228-7Vyavomtve department LbzbDC4467-05-88O41:25:28[facility] department NoteTXT1.2.840.110050.1.13.104.2.7.2.7 01551|[id number] for patient fyik52614-4IkruYLVTOLUFYFISrcpuvlsi C-CDA narrative llcn814060624Fsllow D Roman RNUT[id number] YENIBFNPFPXLVCJVXJEF6844-82-48O48:25:2 81.2.840.824300.1.72.3.15|1.2.840.1143 50.1.13.104.2.7.2.727879_[id number] Medina Presley RN [facility] 2023-09-28 18:17:15 MVnXJ4P0VHcChEQZ8PQJVrMlLjNfElZyoDMiCf 0Ix0RKUrxK3mZu9KYLlhSEFTPl0993-24-22U6 8:17:15 Pt's states his doctor quit prescribing [...] something and he won't prescribe me any." 63277-9Gowxbtxcj department Triage ehsfQL9972-56-25N33:19:10[facility] Triage noteTXT1.2.840.102024.1.13.104.2.7.2.7 62003|[id number] for patient dnmw50395-7Lladlifjl department NoteLNNARRATIVEFormatted C-CDA narrative [id number] Fief RN[address]Yz[id number] TQLVNMXWUQKPHJQDXMNB7148-61-95X94:19:1 01.2.840.774958.1.72.3.15|1.2.840.1143 50.1.13.104.2.7.2.727879_[id number] Liset Blancas RN [facility] 2023-09-28 18:09:00 dOrwNpcAiL7rdlORG0/VtIUTycwTDS+oRVV2BJ QLEvX6J+B7IXYTH8b4vVLJbLkb8939-68-26T1 8:09:00 Images from the original note were not included.Patient never seen by Ellen patel [facility]Dyana Jorgensen MD09/28/231922SchDyana silva MD09/28/231922 70707-0Bsnvazugv Emergency department RepsSK9855-16-25Z38:23:40Physician Emergency department NoteTXT1.2.840.116156.1.13.104.2.7.2.7 92223|[id number] for patient dbvf55365-3Ogdwmpguy department NoteLNNARRATIVEFormatted C-CDA narrative text[address] Pt[id number] XXHRAFCUTBEKHTSMFTHJ6337-84-02M50:23:4 01.2.840.077734.1.72.3.15|1.2.840.1143 50.1.13.104.2.7.2.727879_[id number] [facility] 2022-06-03 18:30:00 543i8iBMFn/CUGFlnaP7a9hZZ8fZ3ewdStEn7o Xm+ehFXvaEjXyobtx+q7J67iMy4488-64-98O8 8:30:00 Gave pt appointments, provided wound care, paper prescriptions were delivered via doctor bedside, taught about s/s of infection, removed IV, pt left with belongings via transport, no distress noted.Gave pt 3 weeks of wound care supplies.Pt left via [employer]. garage worker provided instructions on how to request a [employer]ft.No needs at this time. [id number] Note1.2.840.842149.1.13.43.2.7.4.51011 0.86317359-23-87R78:18:43Flowsheet NoteTXT1.2.840.356557.1.13.43.2.7.2.72 7879|[id number] for patient rodo23826-1OdeoFN468062635ZvnhtelHaven Behavioral Healthcare2525 [facility] Hospit[id number] 23-06-02T19:18:431.2.840.831910.1.72.3 .15|1.2.840.346180.1.13.43.2.7.2.88568 9_[id number] [facility] 2022-06-03 18:30:00 6ZTlnx6lJYVgMn/0y3yryn1z+Hl9v+PNAXSJwW 62TYPmUMeV8ZBvCSj5ciuPT35L0112-24-65T9 8:30:00 Problem: Hospital Acquired Venous Thromboembolism (VTE)Goal: [...] deep vein thrombosis or pressure ulcers.Outcome: Resolved [id number] of Care1.2.840.971525.1.13.43.2.7.4.12781 0.22792107-57-38K68:47:16Plan of CareTXT1.2.840.928678.1.13.43.2.7.2.72 7879|[id number] for patient xwox66686-3OpweZBWHZDbukfd Health Wttfzc8377 Natalie Shelt[id number] 23-06-02T18:47:161.2.840.155322.1.72.3 .15|1.2.840.285153.1.13.43.2.7.2.64481 9_[id number] [facility] 2022-06-03 17:38:37 1994WRDyTu6d0hM72KjXo6MzlM54DJYX+fEaUa 0miP++SZsY0g7FejkTJi7dRYtG9553-96-16Z6 7:38:37 06/03/22 1737 Intervention Financial Needs Other (Comment)([facility] SELF-PAY/SELF-PAY SCREENED) Referral Data Referral Reason [...] care supplies.Glory Tran BSN ACM-RNEC Nurse Case ManagerSycamore Medical Center / [facility]# [phone] Note1.2.840.900761.1.13.43.2.7.4.89694 0.54265796-34-07I76:49:49Flowsheet NoteTXT1.2.840.590480.1.13.43.2.7.2.72 7879|1180850840RSQhnyfnnnd for patient ekfx59072-0OpdeTG011233523Wnfapznbm D Real RNKindred Hospital Lima2525 [facility] Hospital[id number] 23-06-02T17:49:491.2.840.194212.1.72.3 .15|1.2.840.635162.1.13.43.2.7.2.48654 9_[id number] Glory Tran [facility] 2022-06-03 04:38:15 2C1YZIcAuNwxaCtfKMuqVO0v9e8o7P4ot68hkN duoe2mePBWJLNpixo26jIh6/WS8438-61-77L8 4:38:15 Problem: Hospital Acquired Venous Thromboembolism (VTE)Goal: [...] to perform desired activities.Outcome: Met This Shift 0058845Jsmw of Care1.2.840.090605.1.13.43.2.7.4.85735 0.30532678-01-61J76:38:19Plan of CareTXT1.2.840.389715.1.13.43.2.7.2.72 7879|3360415281YMWfkfmxccj for patient qtoy52084-4MmpnPB091970892Krbocsx [facility]2525 [facility] Hospita[id number] 23-06-02T04:38:191.2.840.754733.1.72.3 .15|1.2.840.695219.1.13.43.2.7.2.48708 9_[id number] Kristine [facility] 2022-06-02 19:47:16 HSessjTgNMyXYnuTHysImurd5V2GF15sXDZllm msFPWGQgGiKoInm97PwZfsw+658435-09-07M3 9:47:16 Problem: Hospital Acquired Venous Thromboembolism (VTE)Goal: [...] thrombosis or pressure ulcers.Outcome: Met This Shift 1850673Vcrz of Care1.2.840.409745.1.13.43.2.7.4.18111 0.51044124-85-75G68:47:18Plan of CareTXT1.2.840.761279.1.13.43.2.7.2.72 7879|7791022894MKQtowilara for patient vitw72972-9JkjlAUWFUXfqvex Health Bshurx9438 [facility] HospitalQpfuBextdxpQcsbdlnPHDH4313473352UCDP50 23-06-01T19:47:181.2.840.928514.1.72.3 .15|1.2.840.246119.1.13.43.2.7.2.59421 9_[id number] [facility] 2022-06-02 04:02:37 FXJgwoyZWsinddUCm4xZfqDlelpCMFEPpNEEor eE25ph6iYIi6p/KrRL4JDXSINI1273-08-72A8 4:02:37 Problem: Hospital Acquired Venous Thromboembolism (VTE)Goal: [...] to perform desired activities.Outcome: Met This Shift 6695129Vlsw of Care1.2.840.254475.1.13.43.2.7.4.88330 0.08706152-79-49Z07:02:40Plan of CareTXT1.2.840.554934.1.13.43.2.7.2.72 7879|9088274115TAJihbmhqtm for patient qnzs03812-8LuujENWZKSmqnorLong Island College Hospital2525 [facility] HospitalWifeRmanhqrGywaxsjVVXZ9778578941THCX01 23-06-01T04:02:401.2.840.907482.1.72.3 .15|1.2.840.266581.1.13.43.2.7.2.82332 9_[id number] [facility] 2022-06-01 16:07:00 DkEykjV6o6o6SMaZup1kHiqapAseHe3zwcZ8QR n6yrpwpcpK7E2GG92QppYiA/sE2526-04-53F7 6:07:00 Problem: Hospital Acquired Venous Thromboembolism (VTE)Goal: [...] Be Safe And ComfortableOutcome: Met This Shift 6314816Iyhg of Care1.2.840.948938.1.13.43.2.7.4.25780 0.57219125-40-79X96:07:12Plan of CareTXT1.2.840.377592.1.13.43.2.7.2.72 7879|0994385686WINeouzrnke for patient xsbe29252-6TlglDFUGUTurrlcLong Island College Hospital2525 [facility] HospitalVqepHnovhddYvwgeuwUSZD2843423986GZNP93 23-05-31T16:07:121.2.840.274961.1.72.3 .15|1.2.840.860655.1.13.43.2.7.2.26840 9_[id number] [facility] 2022-06-01 16:04:25 W5Dh5jFijcA3nIbgi+VDPv+x5VJE+qRGw5K/GL OfpKmWAXsI7yzQEu3g3mxSRo8E3592-73-44A8 6:04:25 06/01/22 1602 Intervention Coordination of Care Multidisciplinary team(S/p I+D of 4x abscesses on 05/25 and 05/31.infection) Disease Management Meets criteria for Inpatient Medical Necessity Screening Concurrent review([id number]) Oumou Villa MSN, BSN, [facility]-RNClinical Nurse Case [phone] 7803949Rzdwlpsgo Note1.2.840.312880.1.13.43.2.7.4.62336 0.69497754-66-14K65:04:51Flowsheet NoteTXT1.2.840.262666.1.13.43.2.7.2.72 7879|3590355117LDDqytbigau for patient dqwm37834-3MpamOC426952613Erbfjft Okolie RNKindred Hospital Lima[address] [place], [place] [address]ZmxfVottefbXmoukjuZDKP3954136111YHIB50 23-05-31T16:04:511.2.840.086048.1.72.3 .15|1.2.840.104033.1.13.43.2.7.2.63193 9_[id number] Oumou Villa RN [facility] 2022-06-01 05:30:00 kgkdXuWLpQEuRe45oFPunD3STqAJs3YV4B0hei WQheQvoXDEKJSQRx1bxZ3z4la25854-52-17L1 5:30:00 Problem: Falls / InjuryGoal: Absence of [...] new arrhythmias (if applicable).Outcome: Met This Shift 7253348Ptoz of Care1.2.840.000779.1.13.43.2.7.4.49633 0.98502469-45-30Y76:50:41Plan of CareTXT1.2.840.356170.1.13.43.2.7.2.72 7879|8799991612NTCqmfhseki for patient swmn97371-2WyuzDY270242688Lcqhaf Osondu RN[address] StreetTXTX[address]054[address]054USUS20 23-05-31T07:50:411.2.840.089530.1.72.3 .15|1.2.840.687565.1.13.43.2.7.2.57748 9_[id number] Jessika Connolly RN [facility] 2022-05-31 16:17:37 m6BUBYfaKEVBr6Lz/Ym7QhA5t84NQsYFdDKrwM 6wB1uAn+GcLjvTyV3N98sMunQz3820-82-94R8 6:17:37 Problem: Hospital Acquired Venous Thromboembolism (VTE)Goal: [...] swelling, drainage, and pain.Outcome: Met This Shift 8898014Qumh of Care1.2.840.713582.1.13.43.2.7.4.95386 0.07076311-25-55N21:17:53Plan of CareTXT1.2.840.088581.1.13.43.2.7.2.72 7879|5907835982SCSywjgroji for patient utiq07276-1SbngKHGHYYevvlcLong Island College Hospital2525 [facility] HospitalCthxAwktdqbWsrusuqCSOR1657240547ZJXF51 23-05-30T16:17:531.2.840.936917.1.72.3 .15|1.2.840.426181.1.13.43.2.7.2.05620 9_[id number] [facility] 2022-05-31 10:15:18 +FGTxrAjUAJPCnlfFue3RmkC/5Vk1okhaYuEXe WLrwF3ob2shY5058TlLFok8m2a9691-62-20O5 0:15:18 Nutrition Screen by Traveling Nurse, RegisteredNutrition Screen re: LOS x 7 days.Tej [...] and nutrition related labsAvailable/Consult PRNSignature:Kelly Boo DTR 171243Fvnzd: 180-282-7691Hkuoiq see Dietitian Note(s) in Plan of Care. 3878205Unam of Care1.2.840.947288.1.13.43.2.7.4.86440 0.96424630-50-40Q73:15:12Plan of CareTXT1.2.840.690187.1.13.43.2.7.2.72 7879|2034603972PSYjfntfcnr for patient smkp71805-0GohlFVOdjwjknvnFbulggfvlKAU [facility]5664 [facility] HospitalVtguWgteypyOctligvRJYR9551580606HCHG59 23-05-30T12:15:121.2.840.872045.1.72.3 .15|1.2.840.733442.1.13.43.2.7.2.05344 9_[id number] Nutrition [facility] 2022-05-31 06:47:50 rM5Pi3z8iUPv1G8lTA6ZSOjIupNmfruWTgg5I/ yvTlpuIhZzghLIsfZNe8JCbT5D5886-08-96J4 6:47:50 Problem: Hospital Acquired Venous Thromboembolism (VTE)Goal: [...] to perform desired activities.Outcome: Met This Shift 0730024Etud of Care1.2.840.364286.1.13.43.2.7.4.46801 0.60596659-26-55N42:47:56Plan of CareTXT1.2.840.784668.1.13.43.2.7.2.72 7879|1967176028RLPerxpcqfs for patient ufna29634-2UiltJS881633945Hqfcq Anyamene RNKindred Hospital [facility]ima[address] [place], [place] [address]EfpjKewnpjfTklqpwgMGOP4909856744UHDX47 23-05-30T06:47:561.2.840.873563.1.72.3 .15|1.2.840.656411.1.13.43.2.7.2.20188 9_[id number] Charline Ren RN [facility] 2022-05-30 16:05:44 BtNlAKr7kloh2kQ+Jh4hQvJxRz68Oeja9/0K3J pHo6LG3QCy/lq9/kt/rcfHUZjg6365-37-47Z2 6:05:44 Initial visit, pt and one family member present, encouragement and spiritual support provided which resulted in hope being expressed. 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 Adventist Patient's significant other Patient's Significant Other Designation Immediate family Spiritual Resources Spiritual Resources Awareness of the Holy;Hope Traffic Sign Erection Supervisor Assessment (Emotional Needs) Emotional Needs Grief/mourning Traffic Sign Erection Supervisor Assessment (Spiritual Needs) Patient Expressing Grief/mourning;Helplessness Patient Exploring Brigitte and values Traffic Sign Erection Supervisor Interventions Emotional Needs Non-anxious, non-judgmental presence provided;Emotions explored;Emotions validated;Hope encouraged;Reflective listening provided Spiritual Needs Grief/mourning explored, encouraged and/or enabled;Brigitte and or beliefs explored and/or validated;Pastoral counseling provided Chaplain Haywoode3-2480 9229990Aqosbztdl Note1.2.840.315001.1.13.43.2.7.4.93725 0.73559011-03-11Y96:06:41Flowsheet NoteTXT1.2.840.519619.1.13.43.2.7.2.72 7879|8782267625CAUexcpgsjv for patient ktqn07863-9KotsST11711745Emskxhy Joy KnottT.J. [facility]2525 [facility] HospitalShrcXwgilyqLhmxpdyNIWE9307008322UADS99 23-05-29T16:06:411.2.840.373996.1.72.3 .15|1.2.840.616201.1.13.43.2.7.2.95568 9_[id number] Shawna Chandler [facility] 2022-05-30 15:46:11 Asif/gVMMv2fEQE6aZQcpwdacGtv4w8CxCsIT1m Eg6hOeoOj7MzVapxxmH4ZKsgeX2736-04-81O1 5:46:11 Problem: Hospital Acquired Venous Thromboembolism (VTE)Goal: [...] to perform desired activities.Outcome: Met This Shift 6534296Mpct of Care1.2.840.290604.1.13.43.2.7.4.52676 0.27197849-97-41L88:46:15Plan of CareTXT1.2.840.037356.1.13.43.2.7.2.72 7879|1796650238CGFxevmxksy for patient pexw60907-8ClvgPH392011163EdaxddqWright-[facility]2525 [facility] HospitalDwuiKtkhniaXbplcanOIDY4922933215XEZA67 23-05-29T15:46:151.2.840.867282.1.72.3 .15|1.2.840.256717.1.13.43.2.7.2.83678 9_[id number] [facility] 2022-05-30 05:30:02 Bearek/xAOm3mX423zA8bkp56Oc85wRCmg7bSQvt eCyQnFhxNipMPkQRFOyO+QgdM14803-84-00L7 5:30:02 Problem: Hospital Acquired Venous Thromboembolism (VTE)Goal: [...] to perform desired activities.Outcome: Met This Shift 8574316Qaer of Care1.2.840.194670.1.13.43.2.7.4.56483 0.53268805-17-72L20:30:08Plan of CareTXT1.2.840.085707.1.13.43.2.7.2.72 7879|6449273650MRLzuvrlhyl for patient uyhr66590-3YduyRYRFECvybzhLong Island College Hospital2525 [facility] HospitalWjfjAzfvmklGcnherxNMHA0628175340ZAZP33 23-05-29T05:30:081.2.840.324684.1.72.3 .15|1.2.840.229408.1.13.43.2.7.2.18243 9_[id number] [facility] 2022-05-29 18:34:41 HYmmlkAjXEwocB/xSiyEms0SVel/abULWME4TW a4aulv8vKhVtMiwoiDlPgUN+LF6066-55-72U8 8:34:41 Problem: Hospital Acquired Venous Thromboembolism (VTE)Goal: [...] to perform desired activities.Outcome: Met This Shift 1319416Nbof of Care1.2.840.693467.1.13.43.2.7.4.26592 0.65351942-01-34E77:34:46Plan of CareTXT1.2.840.297477.1.13.43.2.7.2.72 7879|3203030133IVUjmuealcu for patient nrkf83164-4AsbrOI34166827Notsychq Ngozi Osita RN[id number] 23-05-288:34:461.2.840.882883.1.72.3 .15|1.2.840.483315.1.13.43.2.7.2.85445 9_[id number] Octavia Agosto RN [facility] 2022-05-29 05:08:04 WDoYapDt2/nAqdjUqqmL05jEUtMnbAHbxf7/51 UjabV3+wuS1+BP9fAwX8nVOhhU2305-11-02G3 5:08:04 Problem: Hospital Acquired Venous Thromboembolism (VTE)Goal: [...] wounds, or positive cultures.Outcome: Met This Shift 9293127Dbwj of Care1.2.840.097944.1.13.43.2.7.4.02049 0.38700481-89-32W23:08:11Plan of CareTXT1.2.840.228343.1.13.43.2.7.2.72 7879|7955044588TDHybafjknd for patient etry14078-6FyfiQF14857488Brbgh Baby [facility]2525 Natalie KellyFdqePhlegaaGqcrhkkIRWJ3868650472JREK24 23-05-28T05:08:111.2.840.295606.1.72.3 .15|1.2.840.549927.1.13.43.2.7.2.74218 9_[id number] Tyron Baby [facility] 2022-05-28 18:31:40 geL9qfd4CovDzas6kF0BCMxI/F9D7Sxwro8zmu c3/sUe47Ys/+SJ/kpALe4yLmVf0651-03-08E2 8:31:40 Problem: Hospital Acquired Venous Thromboembolism (VTE)Goal: [...] by Octavia Agosto RNOutcome: Met This Shift 8783093Woip of Care1.2.840.931086.1.13.43.2.7.4.90248 0.75914879-99-21S03:31:43Plan of CareTXT1.2.840.912067.1.13.43.2.7.2.72 7879|9056571155IJBqqnnmbye for patient ferz81478-2DljdVZOJOYvnbkx Health T[address] [place], [place] [address][id number] 23-05-278:31:431.2.840.643019.1.72.3 .15|1.2.840.257276.1.13.43.2.7.2.16824 9_[id number] [facility] 2022-05-28 16:41:40 wExyAbhi/SY7/7vtzOgPu1d8SfknJ8+VdJjV3Y XP5cv3prQuq+E8I2AmAS+iHPBp8126-02-94T1 6:41:40 Problem: Hospital Acquired Venous Thromboembolism (VTE)Goal: [...] to perform desired activities.Outcome: Met This Shift 6245923Bwgu of Care1.2.840.473174.1.13.43.2.7.4.09733 0.74688275-99-13C50:41:44Plan of CareTXT1.2.840.675882.1.13.43.2.7.2.72 7879|2650187346EQWowpbaqka for patient wrtt64687-5ZbwpDPWFSXwrexu Health Jblzms8339 [facility] HospitalGarjItfzbobNnscyraBROA6407152134WZGX74 23-05-27T16:41:441.2.840.617057.1.72.3 .15|1.2.840.381391.1.13.43.2.7.2.40871 9_[id number] [facility] 2022-05-28 05:28:45 ue1o/mqe36iR9fErgY1GdSw46G1BCxgxjRQGom b3oeLmU7c0nIbYZo7EuVwn97ZK5799-46-02W5 5:28:45 Problem: Hospital Acquired Venous Thromboembolism (VTE)Goal: [...] wounds, or positive cultures.Outcome: Met This Shift 5660662Essp of Care1.2.840.279718.1.13.43.2.7.4.49966 0.25130431-58-16L67:28:51Plan of CareTXT1.2.840.149946.1.13.43.2.7.2.72 7879|3863342234WLBnwolfqxv for patient hosj94600-5YktoSXHCYGklapgLong Island College Hospital2525 [facility] HospitalLbekWjyblbrVnyxktmGCJB1302521113VWVB33 23-05-27T05:28:511.2.840.704432.1.72.3 .15|1.2.840.393893.1.13.43.2.7.2.65787 9_[id number] [facility] 2022-05-27 14:32:23 5/7Zac0hrkyGrExwbnJ5gvRm2BklWuP72UnX6L sdgvCFEn7ITszL3epGUfILZ5PN7251-33-40R5 4:32:23 Problem: Falls / InjuryGoal: Absence of [...] to perform desired activities.Outcome: Met This Shift 3790640Pwsq of Care1.2.840.340490.1.13.43.2.7.4.43648 0.08719571-39-75L74:32:30Plan of CareTXT1.2.840.413044.1.13.43.2.7.2.72 7879|6939908206YIVrshtbmcj for patient sfyv72021-8YjyyQZ091281293Xzlmtak Hall RNKindred Hospital [facility]ima2525 Natalie P[id number] 23-05-26T14:32:301.2.840.538439.1.72.3 .15|1.2.840.376768.1.13.43.2.7.2.99618 9_[id number] [facility] 2022-05-27 05:52:57 8vxM+VQX6OqdP0Lt9udKEP6QFJrQDOsGuH7f+x ZMLv2r8J+7y8CTQZnwdctAQ2jF8324-38-51Y1 5:52:57 Problem: Hospital Acquired Venous Thromboembolism (VTE)Goal: [...] wounds, or positive cultures.Outcome: Met This Shift 2663149Jzjb of Care1.2.840.960140.1.13.43.2.7.4.95131 0.17642648-18-98U17:53:04Plan of CareTXT1.2.840.765659.1.13.43.2.7.2.72 7879|6471358815FWIcmnqbmxe for patient mokh67268-7GywiYWGAKInpyki Health Ykjgcv7319 [facility] HospitalSswgRgvftgfJdumnyhGJYT8775603756ZPWJ98 23-05-26T05:53:041.2.840.443420.1.72.3 .15|1.2.840.516178.1.13.43.2.7.2.19939 9_[id number] [facility] 2022-05-26 15:14:40 xSkzeLubQO8nKc3jfyWipdQmvRLi2tvU7AGSY7 V3HWdREX0liu+wYsOPDrZiK8qz3266-53-15D6 5:14:40 Problem: Hospital Acquired Venous Thromboembolism (VTE)Goal: [...] done this shift. Patient verbalized understanding. Appropriate historic interpreter used. Problem: Falls / InjuryGoal: Absence of [...] Subjective And Objective Responses.Outcome: Met This Shift 4886745Epeh of Care1.2.840.627625.1.13.43.2.7.4.70401 0.27518081-29-18Q65:14:43Plan of CareTXT1.2.840.763807.1.13.43.2.7.2.72 7879|9494879758HYEgryjudqi for patient hyzq61494-0LqduJY114888897Wandt M Bhakta RN[id number] 23-05-25T15:14:431.2.840.666427.1.72.3 .15|1.2.840.424185.1.13.43.2.7.2.18553 9_[id number] No Montoya RN [facility] 2022-05-26 11:00:00 WpO61gcgMJtV4Gi6rSNdeHwEXydE3z2fkLtCBX pp4DSHH3G4IildpBeSrlG2lSxl8441-36-56X6 1:00:00 05/26/22 1100 Intervention Education on freedom to choose and issued vendor list Yes Transportation Referrals Other Transportation medical necessity form N/A Current Support System Immediate family Coordination of Care Multidisciplinary team;Outside facilities Per consult to assist with drug treatment placement, SW connected with Pt to discuss options.SW had contacted both [facility] [phone] and [facility] [phone] per Pt's request and was informed there were no beds available. [facility] only has available beds in locations outside [place] like [facility] and [place]. SW suggested other treatment centers including [facility] [phone] who stated they have available beds and Pt is free to come to their facility in [place], ask for Layo with Intake Department. SW also provided [facility] as an option. Pt declined both options, stated he will talk with his family and may have to choose one of the [facility] locations outside of [place].Pt will inform SW when decision is reached.Artem Cohn LMSWSocianaya Work Emergency Management Program Specialist [facility] HospitalOffice: [phone]: [phone] Note1.2.840.662658.1.13.43.2.7.4.99836 0.19663915-21-05R98:32:49Flowsheet NoteTXT1.2.840.285949.1.13.43.2.7.2.72 7879|0032315904UXJclfobpzh for patient bbfp24990-8NggtTN119247432YvpexeVanderbilt Diabetes Center2525 Natalie NpseMalrvvzVdwaxsgPGKV1347198426FSKD08 23-05-25T11:32:491.2.840.849260.1.72.3 .15|1.2.840.684152.1.13.43.2.7.2.38089 9_[id number] [facility] 2022-05-25 14:25:36 GyLyI97mmqF3i6GilSVV5lZsAhtSSgp8eSl1zb dv3AgSEu6eBxx0NrsIyX0rIBmg8285-88-45C1 4:25:36 Problem: Hospital Acquired Venous Thromboembolism (VTE)Goal: [...] Subjective And Objective Responses.Outcome: Met This Shift 8003436Mvvx of Care1.2.840.731410.1.13.43.2.7.4.37560 0.54958064-21-33G36:25:49Plan of CareTXT1.2.840.953711.1.13.43.2.7.2.72 7879|7069768372YVNgstlrsxd for patient dmue24430-9WqnwKJ892508653Zrfx [id number] 23-05-24T14:25:491.2.840.708706.1.72.3 .15|1.2.840.847198.1.13.43.2.7.2.93967 9_[id number] [facility] 2022-05-25 10:28:37 ULiCrPsH+htxo5uZ/6Szrap6amIFsrYtoHjXBR pv0jS6TBd+7aziliMkFzOLcsUE0967-66-18S1 0:28:37 THIS IS A STUDENT NOTEInfectious Diseases [...] AFB - Plates have been sent to [facility] for identification and sensitivitiesRecommendations: - After careful consideration of the literature we recommend the following to cover for M chelonae, M fortuitum, and M abscessus: - Amikacin (per pharmacist dosing) - Tigecycline (100mg load followed by 50 BID, can step down to 50 daily if poorly tolerated) - Azithromycin (500 mg daily)- We will jesu antibiotics once ID is received from [facility]- Follow all cultures to completionThank you for this interesting consult. We will continue to followI discussed the case with infectious diseases attending, Dr. Obando.Venu RamosMedical Student, [address] History Obtained From: patient, electronic medical [...] homeless. He has not travelled outside of [place] recently and does not have any sick [...] intact.Data: All labs, images, and data reviewed. [id number] Note1.2.840.746513.1.13.43.2.7.4.97397 0.98606668-27-72R13:34:01Student NoteTXT1.2.840.556928.1.13.43.2.7.2.72 7879|[id number] for patient rdcv16922-7DvaeKOVcrvzzop MedicineCo[facility] Hospitalnal [facility]2525 [facility] Hospit[id number] 23-05-24T17:34:011.2.840.259473.1.72.3 .15|1.2.840.352485.1.13.43.2.7.2.09701 9_[id number] Internal Medicine [facility] 2022-05-25 03:18:34 CXYMdNm/rsrBiyxENE5xS9VtkBRPXKbPDKw0dk 1UDoFpA82CwvjQqFWIBmqOrXnC5061-91-10D7 3:18:34 Problem: Hospital Acquired Venous Thromboembolism (VTE)Goal: [...] Subjective And Objective Responses.Outcome: Met This Shift [id number] of Care1.2.840.966541.1.13.43.2.7.4.49253 0.60194161-98-94D16:18:38Plan of CareTXT1.2.840.690607.1.13.43.2.7.2.72 7879|[id number] for patient bcec88078-0ZgwiPLUJMMdxxxeLong [facility] Hospital2525 [facility] Hospit[id number] 23-05-24T03:18:381.2.840.548941.1.72.3 .15|1.2.840.956805.1.13.43.2.7.2.52257 9_[id number] [facility] 2022-05-24 18:27:10 w7v8e/BThFN2Eu9tftxDO6rbGiPrIfNCGOUZXN C8JY8yVstGn6tqeBpEan70kCSy4709-23-49I5 8:27:10 Problem: Hospital Acquired Venous Thromboembolism (VTE)Goal: [...] Subjective And Objective Responses.Outcome: Met This Shift [id number] of Care1.2.840.220311.1.13.43.2.7.4.26279 0.85013064-49-75J71:27:20Plan of CareTXT1.2.840.042813.1.13.43.2.7.2.72 7879|0392495807DPHccsuykdy for patient ursn84617-2RmebOARYCUmcgur Health Qhddjz3781 [facility] HospitalTqqxV[id number] 23-05-238:27:201.2.840.073351.1.72.3 .15|1.2.840.476319.1.13.43.2.7.2.11824 9_[id number] [facility] 2022-05-24 11:04:15 fEMIpVKL3PlwfDcTeqml0ZRkhtcozr0T+zlGDP mtHNsJ8Q28mgDm9ouFTUrl2a/x9373-30-45R0 1:04:15 Case management note:Chart reviewed for medical necessity and hospitalization 05/24/22 1103 Intervention Disease Management Meets criteria for Inpatient Medical Necessity Screening Concurrent review([id number]) Patient meet inpatient criteriaPlease place order Ad[facility] Samanta diggs MSN, ACM-RNClinical Nurse Case [facility] | [address] | [place], [place] [address]E: [phone] |F: [phone]| [id number] Note1.2.840.292923.1.13.43.2.7.4.61586 0.14011593-87-31U72:04:38Flowsheet NoteTXT1.2.840.349096.1.13.43.2.7.2.72 7879|[id number] for patient ogiy50872-0HjqhMV48633160Liue S Jacob RNKindred Hospital Lima2525 [facility] Hospita[id number] 23-05-23T11:04:381.2.840.449444.1.72.3 .15|1.2.840.834886.1.13.43.2.7.2.28363 9_[id number] Samanta Hassan RN [facility] 2022-05-24 08:50:00 kxAxrmkTXAoJfbgu9qT3fNq/+nj3+DCF+DQfzX 8zdAHu+03ZXmsCL6GAt5d/DhJQ2329-46-69V5 8:50:00 05/24/22 0850 Charting Type Charting Type Initial Patient Status Current Status Observation New Status Recommendation Observation Patient Information Source of Information Patient;Other (Comment) County [place] Residence [place] Immigration Status: [place] Citizen [...] Family Information Patient Marital Status Single Primary Bleach Liquor Maker Lydia Guadalupe (father) [phone] Income Information Income Source Unemployed Financial Resources Funding Source/Insurance Status Self-Pay Transportation Transportation Needs Private/family transportation Legal Information Legal Concerns No unmet needs Name, surrogate decision maker Lydia Guadalupe (father) [phone] Decision maker contact # Lydia Guadalupe (father) [phone] Mental Health Mental Health Concerns No past / current concerns Acuity Level Medical Acuity Category 3 Gluing Pressman Acuity Mild Strengths and Limitations Patient Strengths [...] residing with father at the address on [address] [place] [address], however, will be discharging to sister's upon discharge from the hospital. Pt did not remember the address of sister's house.Family will provide discharge transportation.Healthcare Agent: Lydia Guadalupe (father) [phone].Hayden Gurrola Work Emergency Management Program Specialist [facility] HospitalOffice: [phone]: [phone] 0699451Rtxepyqbp Note1.2.840.768736.1.13.43.2.7.4.52550 0.49295332-09-51L68:59:01Flowsheet NoteTXT1.2.840.968533.1.13.43.2.7.2.72 7879|[id number] for patient ynhb87685-0EzmoPSSVUBauppwLong Island College Hospital2525 [facility] Hospital[id number] 23-05-23T10:59:011.2.840.913245.1.72.3 .15|1.2.840.526239.1.13.43.2.7.2.91339 9_[id number] [facility] 2022-05-24 06:45:53 W+vsL+Dkox5Ycqob7BWXqQq5wJsiUoVDySwp7a QUPVbZa0VM8d9meOJirA+HtmI02959-99-30X4 6:45:53 Problem: Falls / InjuryGoal: Absence of [...] wounds, or positive cultures.Outcome: Met This Shift [id number] of Care1.2.840.439229.1.13.43.2.7.4.38243 0.33250664-79-23C45:46:15Plan of CareTXT1.2.840.165568.1.13.43.2.7.2.72 7879|0473290368GQWnxxqofij for patient ooyo14627-5KnmwZNLCNCjwcuz94 [address] StreetTXTX7705477054USUS20 23-05-2306:46:151.2.840.851881.1.72.3 .15|1.2.840.476250.1.13.43.2.7.2.73927 9_[id number] [facility] 2022-05-24 04:17:46 hNIqj/dX/VubESsXERMQNxrZhX5jYZHd4WNJ3l BvQ1WIWTOACD2iMQP6W66eeHNY8644-07-82X3 4:17:46 Patient transferred to . Patient refused wheelchair for transfer. Report given to Hanh MARTINI. Patient AAOx4. Ambulates independently. Respirations clear and unlabored. Skin appropriate to ethnicity. Skin intact with abscesses to the right and left forearms. 50065-1Qwxfbpodu department ZtxpRB7365-81-62U37:19:07[facility] department NoteTXT1.2.840.842825.1.13.43.2.7.2.72 7879|[id number] for patient uouq74849-8Trxmgjfwq department [id number]TXTX[address]05477054USUS20 23-05-2304:19:071.2.840.250677.1.72.3 .15|1.2.840.677408.1.13.43.2.7.2.02418 9_[id number] Lupillo Jo [facility] 2022-05-24 02:00:00 W/LqoXZOIdwdx9yXCBUD1JOUmczSlu1dniaxC6 8RqADguht4ovdZSqshyN1Fg+LU2329-49-51L9 2:00:00 Pt resting in room quietly, respirations even nonlabored, no acute distress. [address]348-5Hbvhmdmrk[address] UwqmAS8200-61-01O42:07:26[facility] NoteTXT1.2.840.383404.1.13.43.2.7.2.72 7879|[id number] for patient keza96535-2Djdunvjeb[address] [place] [address] MpziHF893088035Evtug [facility]2525 [facility] HospitalTwvsWtldukxLulnyokKSFL6477710384HCXE90 23-05-23T05:07:261.2.840.668720.1.72.3 .15|1.2.840.622290.1.13.43.2.7.2.99012 9_[id number] [facility] 2022-05-23 23:58:21 fbDCpMyl2KREWe//VXpBwUbYMPRnqcuP/ohzIR HurlqH4u09Qr+rZSxOpMJ/edSk3921-85-73I0 3:58:21 [place] [address]-7Imgkuaypo department CjlkRO9898-60-95K61:58:35[facility] department NoteTXT1.2.840.323934.1.13.43.2.7.2.72 7879|[id number] for patient vgfd67947-0Lkkijlldv department NoteLNKindred [facility]2525 Natalie Kel[id number] 23-05-22T23:58:351.2.840.934770.1.72.3 .15|1.2.840.440265.1.13.43.2.7.2.79111 9_[id number] [facility] 2022-05-23 22:47:00 nMDwdG33TjATAisxBse+wYSQ6n0JzP1nogTAlB Q6WA0+UD/4nn5LRlF75WIO6f430041-21-59F6 2:47:00 Patient Tej Guadalupe, 37 y.o. male, [...] extremities spontaneously. Patient pending medical bed admission. 17471-6Arbqfqfhm department UeaeIN7862-90-30I25:20:22[facility] department NoteTXT1.2.840.773266.1.13.43.2.7.2.72 7879|[id number] for patient atna82310-9Givuswqmb department NoteMon[facility]2525 [facility] Hospit[id number] 23-05-2301:20:221.2.840.969027.1.72.3 .15|1.2.840.440312.1.13.43.2.7.2.00646 9_[id number] [facility] 2022-05-23 22:11:16 XJ7F1z1YEbpaYHx4uLPWq2lh5wlT9lQWQGYrcj M2ndQUD7GuIYO8qqUBPUHUFDLR3196-50-49B1 2:11:16 Pt ambulatory to B4 for admission with triage nurse. Pt A&OX4, respirations even nonlabored, no acute distrress/no airway distress. 04647-6Ltkiitrlo department EamkIO8953-98-18Y91:11:43[facility] department NoteTXT1.2.840.331724.1.13.43.2.7.2.72 7879|[id number] for patient aawh16464-8Hjorzujln department [facility]2525 [facility] HospitalAw[id number] 23-05-22T22:11:431.2.840.938695.1.72.3 .15|1.2.840.810804.1.13.43.2.7.2.78195 9_[id number] [facility] 2022-05-23 13:29:36 WGMtL/OYiXNnt3+IT33jtHoQpsK8VoBrK2VKW9 YjR5qHyz8Slto63C+NnzGJJhY91013-73-69U8 3:29:36 Images from the original note were [...] about a month" per pt. Seen at [facility] on 05/19/2022 for same issue. I&D [...] History provided by: Medical records and patientLanguage historic interpreter used: No AbscessLocation: Shoulder/armShoulder/arm abscess location: R [...] Continue to monitor in the emergency departmentNAVEEN Lane[facility] PA FellowProvider #[id number]/222:04 PM Clinical Impression 1. Cutaneous abscess of [...] F Reyes MD August 01, 2022 11:44 WD73176-0Eqquoayps Emergency department NwsjIX036977Eliznqy, Stephen A1.2.840.451183.1.13.43.2.7.2.643115Zx fxssoJhnqmrxETF8367-34-76S44:46:02Phys [facility] Emergency department NoteTXT1.2.840.798256.1.13.43.2.7.2.72 7879|[id number] for patient gaok22718-7Cwkijvwjp department NoteLNKindred Hospital [facility]ima2525 [facility] Hospital[id number] 23-07-31T11:46:021.2.840.182292.1.72.3 .15|1.2.840.040552.1.13.43.2.7.2.28143 9_[id number] [facility] 2022-05-23 10:59:29 0ueJL/JpOug+uumw9fMMjdT/pw66KllZ1gYnPt Q7BaEjixpIi4YYP83/ujTudrpk7729-71-31S2 0:59:29 ABC intact. Resp even and unlabored. Skin warm and dry with color appropriate to ethnicity. Pt in stable condition. NAD. Verified name and verbally with pt and armband. Informed pt to notify this RN or staff if wanting to leave, and/or experiencing any changes in condition. 00360-1Orwpjtyzm department Triage venvPD5685-96-90Q42:01:33[facility] department Triage noteTXT1.2.840.294191.1.13.43.2.7.2.72 7879|[id number] for patient hpla71583-4Vdjilltyg department QqhnYA268481774Rnatuzwb Denice Ahmadi RNKindred Hospital Lima2525 [facility] Hospita[id number] 23-05-22T11:01:331.2.840.283006.1.72.3 .15|1.2.840.812721.1.13.43.2.7.2.24343 9_[id number] Mary Jane Cheung RN [facility] 2022-05-23 10:50:34 2NdnTjqSKopr4b9yORovNUG0gisuHTMlVC00sA wSL5w3Gvl02r9Kamu7GYk/K/xB2280-11-15D1 0:50:34 MEDICAL SCREENING EXAMINATION PROVIDER NOTEI evaluated [...] at this time.Billy Aguayo 2021 10:52 AM 80886-3Imgskkfxl department DndrXH7431-56-67X56:53:43[facility] department NoteTXT1.2.840.917175.1.13.43.2.7.2.72 7879|[id number] for patient sucp81965-4Yrqmpnaah department NoteLNNurse PractitionerNurse PractitionerKindred Hospital Lima2525 [facility] HospitalD[id number] 23-05-22T10:53:431.2.840.649331.1.72.3 .15|1.2.840.922994.1.13.43.2.7.2.59340 9_[id number] Nurse Practitioner [facility] 2022-05-22 20:38:38 5gO3EYxwgJ/krXpliiXcwdWb6cBN73H196a77e SDzvM+7BUS+Nz51KtkmUxrQzDY9124-81-18Z0 0:38:38 Tejjae Simeon Roe called within waiting room and did not answer x3. Patient name paged overhead within the Emergency Department without response. Waiting rooms, ED care areas and restrooms visualized and patient not found. 94148-4Jdvqcshnf department RulcNC3187-51-57Z54:38:46[facility] department NoteTXT1.2.840.328796.1.13.43.2.7.2.72 7879|4547130147HDPnlrqsjnb for patient prjm83320-8Tklmeelta department OmgyXI633879270Kjjwshc Martin RNKindred Hospital [facility]ima2525 [facility] Hospit[id number] 23-05-21T20:38:461.2.840.308922.1.72.3 .15|1.2.840.131766.1.13.43.2.7.2.43190 9_[id number] Michelle Cuenca [facility] 2022-05-22 13:26:33 LB5Nprhul65PxcQ3nXvXrbbNYfukWehqLUORGv yFUze29FZ8rAiGVxeNaJ63Ukjh4734-65-09J6 3:26:33 MEDICAL SCREENING EXAMINATION PROVIDER NOTEI evaluated [...] at this time.Billy Novak 2021 1:29 PM 76254-5Txiwhhdha department KfchVG9680-73-83W05:33:27[facility] department NoteTXT1.2.840.077424.1.13.43.2.7.2.72 7879|[id number] for patient ycjs54322-7Zlcnbmito department NoteLNNurse PractitionerNurse Practitioner[address]TXTX[address]USUS20 23-05-213:33:271.2.840.637339.1.72.3 .15|1.2.840.695493.1.13.43.2.7.2.68636 9_[id number] Nurse Practitioner [facility] 2022-05-19 19:48:02 xGld1X4ScBjJ3mH6UW1EP3CXTQX+3atkRXnoYy Wpc4leCfcLqisFdazSFKV/lcAQ0396-46-67G2 9:48:02 Pt AAOX4. Discharge instructions and prescription given, pt verbalizes understanding. Escorted to checkout with belongings in hand. Ambulatory with steady gait. VSS. Respirations even and unlabored. NAD upon departure. 11084-9Xgibatjvn department FaycWA9749-40-41O69:48:18[facility] department NoteTXT1.2.840.122708.1.13.43.2.7.2.72 7879|[id number] for patient slqt27959-4Rwviizmyy department SiawYD641841080Ftnezd Graham RN[address]HoustonHoustonTXTX[address]USUS20 23-05-18:48:181.2.840.872228.1.72.3 .15|1.2.840.276379.1.13.43.2.7.2.19085 9_[id number] Jah Bueno RN [facility] 2022-05-19 19:35:00 oyLYihXJ91A6/Q/Bg/NR9QlaEkSVSQXjKDILEg LV9ACFTtQl9gvftGLGC4z20jc47149-92-86Y1 9:35:00 37 yo pt comes to ED [...] at this time Pt Is pending d/c 63421-9Uagpfpmjf department CzmoZM1387-97-14X39:48:50Emergency department NoteTXT1.2.840.398191.1.13.43.2.7.2.72 7879|[id number] for patient enoi99606-9Yqitheitu department NoteLNKindred Hospital [facility]ima2525 [facility] Hospital[id number] 23-05-189:48:501.2.840.619122.1.72.3 .15|1.2.840.640531.1.13.43.2.7.2.74121 9_[id number] [facility] 2022-05-19 15:56:27 KZx5w+WJymYPEWQHopRFIqvwKs6vN2ynQQjgfn reEI23T+ZgqYkkbvxVHOQ1Mc6d3821-81-51Q1 5:56:27Associated Order(s): I&D of AbscessPost-Procedure Diagnose(s): Right [...] Impression 1. Right wrist pain Chris Marrufo, YzlwiemrMXIqhjoswa76/18/22 1641 Chris Marrufo, KyjrsmbvQEBgpysqru89/18/22 1738 Chris Marrufo, ZnrwhrcjAUEsobibte24/18/22 1739 Chris Marrufo, PzkrusaqHRFcpnunah90/18/22 1847 hCris Marrufo, EuplkadrLXFpxoavnw37/18/22 1908TEACHING PHYSICIAN CEE personally examined Tej Guadalupe, [...] Estrada 2021 10:23 PM Daniel Petit MD05/19/226 38054-9Xfghucurq Emergency department AhtjRD650690QxKjofgk, Robert1.2.840.493512.1.13.43.2.7.2.836 881TnPqeszlXjidldRX3679-67-76R50:30:23 Physician Emergency department NoteTXT1.2.840.737308.1.13.43.2.7.2.72 7879|[id number] for patient gkwy08648-0Zlqujddcu department NoteLNInternal MedicineInternal MedicineKindred Hospital [facility]ima2525 [facility] Hospital[id number] 23-05-18T22:26:301.2.840.949622.1.72.3 .15|1.2.840.046273.1.13.43.2.7.2.81548 9_[id number] Internal Medicine [facility] 2022-05-19 15:51:03 Becky/DOfg8mYL9T6vY7fhQzSe1o5C5lROzPr R3aBwj7K71ILjitQLYukw9ynMk1030-94-19B3 5:51:03 Assessment X2 pt's ID, ABC intact, [...] hot to touch. No peripheral edema. MAEX4 PSHO5Vzzt light and belongings within reachPending evaluation and orders, will continue to monitor VINI Gonzalez 53055-3Gpbwyhcwz department HpshSC6177-34-68V69:54:23[facility] department NoteTXT1.2.840.894941.1.13.43.2.7.2.72 7879|[id number] for patient ecoy21664-4Jpvuugiyf department AsyoEP310643997Wrmyja [facility]2525 [facility] HospitalQn[id number] 23-05-18T15:54:231.2.840.579705.1.72.3 .15|1.2.840.780955.1.13.43.2.7.2.03068 9_[id number] Antwon Gonzalez [facility] 2022-05-19 12:42:01 OGgTU+xtcskp+UOVPMQvpjeaNQDRS93GZN0NQ3 /Oi/Iv4NRS2Oy91ppAyiPq1CHp9437-99-26Y4 2:42:01 Pt noted to have another hospital arm band on stated "they told me to come here to get them lanced" 97066-4Gudufeagp department UilsCG9625-77-35K52:42:31Emerark[facility] department NoteTXT1.2.840.321387.1.13.43.2.7.2.72 7879|[id number] for patient uhio08932-6Sxzgwsnoy department HokjPL714019750Fvbxsovm Clardy [address]TXTX[address]USUS20 23-05-182:42:311.2.840.038638.1.72.3 .15|1.2.840.936232.1.13.43.2.7.2.05717 9_[id number] Emma Weathers [facility] 2022-05-19 12:32:25 bK7ZlSlD13Y6ZuIeZ5Qc60bn+dZ9iYcxBvgV/L U8zDbyicpVY7Td5FnRfxVr7Y0Q8528-74-45C4 2:32:25 Name and verified and confirmed correct with patient. 96275-4Klpysstwf department KopuBI5894-97-64V71:32:31[facility] department NoteTXT1.2.840.770381.1.13.43.2.7.2.72 7879|[id number] for patient csvq79729-3Dddyoqwgf department NoteLN[address]TXTX[address]77[address]USUS20 23-05-182:32:311.2.840.632001.1.72.3 .15|1.2.840.074401.1.13.43.2.7.2.40637 9_[id number] [facility] 2022-05-19 12:30:12 bAq6kQIJEpDNwC/Z1EMaAPtWwZ0lQNVAH+7axL y897Ylhtqd+Kz3dS8jNvhShDao9729-90-15X0 2:30:12 MEDICAL SCREENING EXAMINATION PROVIDER NOTEI evaluated [...] at this time.Choco Matthews 2021 12:30 PM 06991-9Bmppfkfxq department GuclLS4366-71-92L60:32:29Emer[facility] department NoteTXT1.2.840.463198.1.13.43.2.7.2.72 7879|[id number] for patient ecnt64969-3Bpulzpise department NoteLNKindred Hospital [facility]ima2525 [facility] HospitalStsyLvosmzyQjfelwwVJQE8404198982UYDD31 23-05-18T12:32:291.2.840.444696.1.72.3 .15|1.2.840.055243.1.13.43.2.7.2.11130 9_[id number] [facility] 2020-12-13 19:54:00 YStykscyxpq22159873VVP+i2caQeZxBvADkgJ c/esjexlgX501ddExJT53OKeSnbsGvilKtXEk/ ZPPHKBu6057-35-94W80:54:00 [facility] ([facility])EMERGENCY PROVIDER REPORTREPORT#:[id number] REPORT STATUS: SignedDATE:12/13/20 TIME: 1953 PATIENT: TEJ GUADALUPE UNIT #: [id number]#: [id number] ROOM/BED:AGE: 35 SEX: M PCP PHYS: No [...] HPI NotesPatient states he is withdrawing from [place] and [facility] and thinks he may have had a [...] and squeezes hands appropriately upon command. Normal bapy-tq-dlvl eye movements on extraocular muscle testing. No [...] pH (5.0 - 8.0) 6.5 Ur Specific [place] (1.001 - 1.035) 1.014 Urine Protein (NEGATIVE [...] at 2238 (to Dr. Mari) at 2238RPT #:[id number] OF REPORTEDEmergency department fecyui3571-07-60W59:54:00V.NEPC7864179 4-0589AVAvailable for patient ubsmCBNIRHOJUBWQBZ4897-93-31O52:39:03 [facility] 2020-12-13 19:54:00 WBpbpxeyoxl69113187pR0aWmuUJCWtHjOB/Q6 GBpQAXE1SevFK0DZwjAbYvb7e9Oalxf+Wxasc8 I2fN8C61529-54-29S82:54:00 [facility] ([facility])EMERGENCY PROVIDER REPORTREPORT#:[id number] REPORT STATUS: SignedDATE:12/13/20 TIME: 1953 PATIENT: TEJ GUADALUPE UNIT #: [id number]#: [id number] ROOM/BED:AGE: 35 SEX: M PCP PHYS: No [...] HPI NotesPatient states he is withdrawing from [place] and [facility] and thinks he may have had a [...] and squeezes hands appropriately upon command. Normal xhrh-dp-slyx eye movements on extraocular muscle testing. No [...] pH (5.0 - 8.0) 6.5 Ur Specific [place] (1.001 - 1.035) 1.014 Urine Protein (NEGATIVE [...] head. Location: RRImpression By: JeannetteRR31 - Tano aGuthier MD Point of Care TestingPulse Oximetry Pulse Ox % 98 On: Room air Interpretation Interpreted by sd, Pulse oximetry normal Time 1956 Re-Evaluation [facility] ED CourseMedication(s) OrderedMedication(s) Ordered:Antihistamine Drugs Sig/Darius [...] NotePatient to be signed over to Dr. Rhdoes at 7 AM. I will continue to monitor thepatient until that time.Time of Re-Eval 0518 at 2238 at 0519RPT #:[id number] OF REPORTEDEmergency department coqhmu0808-31-26S58:54:00V.VXRV2715407 4-0589AVAvailable for patient iowoOBKTPMMMUWIGVO2733-78-86B38:19:25 [facility] 2020-12-13 19:54:00 ZUuwlivftkn55894196eWguFX8KX1AC+LHvbz6 dCoaHl0un5RS+xwUNyEIxQbTabAzBWIE1C8uzl RGH9x0E8916-91-72H35:54:00 [facility] ([facility])EMERGENCY PROVIDER REPORTREPORT#:[id number] REPORT STATUS: SignedDATE:12/13/20 TIME: 1953 PATIENT: TEJ GUADALUPE UNIT #: [id number]#: [id number] ROOM/BED:AGE: 35 SEX: M PCP PHYS: No [...] HPI NotesPatient states he is withdrawing from [place] and [facility] and thinks he may have had a [...] and squeezes hands appropriately upon command. Normal uond-hl-npfv eye movements on extraocular muscle testing. No [...] pH (5.0 - 8.0) 6.5 Ur Specific [place] (1.001 - 1.035) 1.014 Urine Protein (NEGATIVE [...] involvement at 2238 at 0519 at 0803RPT #:[id number] OF REPORTEDEmergency department przwxt4268-46-86W40:54:00V.OQTE1090601 4-0589AVAvailable for patient cxwvKIWIHZUXWNORCL3253-86-39R89:03:59 [facility] 2020-12-06 16:41:00 SYayraoyoac05903374tc/9qEQRteg2IZn4nWw vE5LyYuNwdJPEeAPsgK/xpXGhc6z8GIQdm8CzG z0S1wbi0392-35-57M30:41:00 [facility] ([facility])EMERGENCY PROVIDER REPORTREPORT#:[id number] REPORT STATUS: SignedDATE:12/06/20 TIME: 1641 PATIENT: TEJ GUADALUPE UNIT #: [id number]#: [id number] ROOM/BED:AGE: 35 SEX: M PCP PHYS: No [...] History - AdultStated [facility] DETOXAllergiesCoded Allergies:No Known Allergies (12/06/20) [...] DecisionOther Against Medical Advice Yes at 1528RPT #:[id number] OF REPORTEDEmergency department emhnya2949-10-06O60:41:00V.BIUE8612721 7-0443AVAvailable for patient ijylTSLVYMGJVBFGXQ0049-37-45F00:28:42 [facility]
[2024-01-28] MEDS ORDERED: IBUPROFEN 400 MG TAB ONE (21:21)
[2024-01-28 21:23] LABS: Specific Gravity 1.007 (1.005-1.030); Urine Bilirubin NEGATIVE (Negative); Urine Blood Negative (Negative); Urine Clarity Clear (Clear); Urine Color Light-Yellow (Yellow); Urine Glucose NEGATIVE (Negative); Urine Ketones NEGATIVE (Negative); Urine Microscopic Reflex YN NO UMIC; Urine Nitrite NEGATIVE (Negative); Urine Protein NEGATIVE (Negative); Urine Urobilinogen Normal (Normal); Urine pH 6.5 (5.0-7.0)
[2024-01-28 21:26] LABS: Absolute Basophils 0.1 K/uL (0-0.5); Absolute Eosinophils 0.2 K/uL (0-0.5); Absolute Lymphocytes (CBC) 2.7 K/uL (0.7-4.9); Absolute Monocytes 0.8 K/uL (0.1-1.3); Absolute Neutrophil 7.1 K/uL (1.8-8.0); Basophils % 0.6 % (0-1.3); Eosinophils % 1.8 % (0-4.4); Hematocrit 44.9 % (39.6-49.0); Hemoglobin 15.2 g/dL (13.6-17.9); Lymphocytes % 25.3 % (15.3-44.8); MCH 31.8 pg (27.0-35.0); MCHC 33.9 g/dL (32.0-36.0); MCV 93.8 fL (80-100); MPV 7.6 fL (7.6-11.3); Monocytes % 7.1 % (3.3-12.3); Neutrophils % 65.2 % (41.7-73.7); Nucleated Red Blood Cells % 0.1 % (0-0); Platelets 234 thou/uL (152-406); RBC Red Blood Cell Count 4.79 M/uL (4.33-5.43); Red Cell Distribution Width 14.2 % (12.1-15.2)
[2024-01-28] MEDS ORDERED: LORazepam 2 MG/ML VIAL ONE (21:27)
[2024-01-28 21:48] LABS: PT Prothrombin Time 10.6 SECONDS (9.5-12.5); PTT, Activated Partial Thromb 29.7 SECONDS (24.3-36.9); Protime INR 0.96
[2024-01-28 21:55] LABS: ALT/SGPT 52 U/L (16-61); AST/SGOT 25 U/L (15-37); Albumin 3.9 g/dL (3.4-5.0); Albumin/Globulin Ratio 1.1 (1.1-1.8); Alkaline Phosphatase 64 U/L (45-117); Anion Gap 11.8 mEq/L (5.0-15.0); BUN Blood Urea Nitrogen 16 mg/dL (7-18); Bicarbonate 25 mEq/L (21-32); Bilirubin Direct 0.2 mg/dL (0-0.2); Bilirubin Indirect, Calculated 0.5 mg/dL (0.2-0.8); Bilirubin Total 0.7 mg/dL (0.2-1.0); Globulin 3.7 g/dL (2.3-3.5); Glomerular Filtration Rate 95 ml/min (=/>90); Glucose Level 101 mg/dL (74-106); Potassium 3.8 mEq/L (3.5-5.1); Protein, Total 7.6 g/dL (6.4-8.2); Sodium Level 141 mEq/L (136-145)
[2024-01-28 21:55] LABS: Barbiturates NEGATIVE (NEGATIVE); Benzodiazepines POSITIVE (NEGATIVE); Cocaine POSITIVE (NEGATIVE); METHAMPHETAM NEGATIVE (NEGATIVE); Methadone NEGATIVE (NEGATIVE); Opiates NEGATIVE (NEGATIVE); Phencyclidine NEGATIVE (NEGATIVE); THC Cannibis POSITIVE (NEGATIVE)
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
--- NOTE | 2024-01-28 23:47 | EDPHYS ---
Physician Documentation [facility] Name: Anthony Au Age: 38 yrs Sex: Male : 1985 Arrival Date: 01/28/2024 Time: 20:03 Bed 7 Private MD: ED Physician Cheng Jaimes HPI: 01/27 20:29 This 38 yrs old Male presents to ER via Ambulatory with complaints of cp WITHDRAWAL. 20:29 Patient is a 38-year-old male who presents to the emergency department with complaints cp of withdrawal symptoms. Patient reports running out of his prescribed Xanax and Suboxone medications a few days ago. Patient was seen earlier today with similar complaints. Review of records show that patient was giving hydrocodone and Xanax in the emergency department and discharged home. Historical: - Allergies: 20:22 No Known Allergies; nj1 - PMHx: 20:22 Anxiety; Asthma; Bipolar disorder; Depression; detox seizures; scalp laceration repair.;nj1 - PSHx: 20:22 I\T\D; nj1 - Immunization history:: Client reports receiving the 2nd dose of the Covid vaccine. - Infectious Disease History:: Denies. - Social history:: Smoking status: Patient reports the use of cigarette tobacco products, smokes one pack cigarettes per day. ROS: 20:32 All other systems are negative, cp Exam: 20:32 Head/Face: Normocephalic, atraumatic. cp 20:32 Constitutional: The patient appears in no acute distress, alert, awake, non-toxic, well developed, well nourished, 20:32 Eyes: Periorbital structures: appear normal, Conjunctiva: normal, Lids and lashes: appear normal, bilaterally, 20:32 ENT: External ear(s): are unremarkable, Nose: is normal, Mouth: Lips: moist, Oral mucosa: moist, Posterior pharynx: Airway: no evidence of obstruction, patent, 20:32 Chest/axilla: Inspection: normal, 20:32 Cardiovascular: Rate: normal, Rhythm: regular, 20:32 Respiratory: the patient does not display signs of respiratory distress, Respirations: normal, no use of accessory muscles, no retractions, labored breathing, is not present, Breath sounds: are clear throughout, no decreased breath sounds, no stridor, no wheezing, 20:32 Abdomen/GI: Exam negative for discomfort, distension, guarding, Inspection: abdomen appears normal, 20:32 Neuro: Orientation: appropriate for stated age, Mentation: is normal, Motor: moves all fours, strength is normal, 21:35 ECG was reviewed by the Attending Physician. cp Vital Signs: 20:21 BP 119 / 88; Pulse 90; Resp 18; Temp 97.7(O); Pulse Ox 95% on R/A; Weight 83.91 kg; nj1 Height 5 ft. 8 in. ; Pain 10/10; 20:37 BP 104 / 72; Pulse 89; Resp 17; Pulse Ox 98% ; jw7 20:21 Body Mass Index 28.13 (83.91 kg, 172.72 cm) nj1 20:21 Pain Scale: Adult nj1 MDM: 20:19 Patient medically screened. cp 23:43 ED course: reevaluation: patient reports he is not currently suicidal and/or homicidal cp at this time and would like to f/u outpatient with psychiatry. 23:46 Data reviewed: vital signs, nurses notes, lab test result(s), EKG, and as a result, I cp will discharge patient. 23:46 Differential diagnosis: acute psychosis, illegal drug use, prescription drug abuse. cp Consideration of Admission/Observation Escalation of care including admission/observation considered. I considered the following discharge prescriptions or medication management in the emergency department Medications were administered in the Emergency Department. See MAR. Independent interpretation of the following test(s) in the Emergency Department EKG: See my EKG interpretation above. Counseling: I had a detailed discussion with the patient and/or guardian regarding the historical points, exam findings, and any diagnostic results supporting the discharge/admit diagnosis, lab results, the need for outpatient follow up, a psychiatrist, to return to the emergency department if symptoms worsen or persist or if there are any questions or concerns that arise at home. 01/27 20:54 Order name: Acetaminophen; Complete Time: 22:06 cp 01/27 20:54 Order name: Basic Metabolic Panel; Complete Time: 22:06 cp 01/27 22:07 Interpretation: Normal except: CL 108. cp 01/27 20:54 Order name: CBC with Diff; Complete Time: 22:06 cp 01/27 20:54 Order name: ETOH Level; Complete Time: 22:06 cp 01/27 22:08 Interpretation: Abnormal: ETOH 178. cp 01/27 20:54 Order name: Hepatic Function; Complete Time: 22:06 cp 01/27 22:08 Interpretation: Normal except: GLOB 3.7. cp 01/27 20:54 Order name: PT-INR; Complete Time: 22:06 cp 01/27 20:54 Order name: Ptt, Activated; Complete Time: 22:06 cp 01/27 20:54 Order name: Salicylate; Complete Time: 22:06 cp 01/27 20:54 Order name: Urinalysis w/ reflexes; Complete Time: 22:06 cp 01/27 20:54 Order name: Urine Drug Screen; Complete Time: 22:06 cp 01/27 22:08 Interpretation: Normal except: BZO POSITIVE; LUPE POSITIVE; THC POSITIVE. 01/27 20:54 Order name: EKG; Complete Time: 20:54 cp 01/27 20:54 Order name: EKG - Nurse/Tech; Complete Time: 21:31 cp 01/27 20:54 Order name: IV Saline Lock; Complete Time: 21:15 01/27 20:54 Order name: Labs collected and sent; Complete Time: 21:15 cp 01/27 20:54 Order name: Suicide Precautions; Complete Time: 21:15 cp 01/27 20:54 Order name: Suicide Screening ([place]); Complete Time: 21:15 cp EC:35 Rate is 93 beats/min. Rhythm is regular. GA interval is normal. QRS interval is normal. cp QT interval is normal. T waves are Inverted in lead aVR. Interpreted by me. Reviewed by me. Administered Medications: 21:23 Drug: Ibuprofen PO 800 mg PO once Route: PO; jb4 21:30 Drug: Ativan IVP 1 mg IVP once Route: IVP; Site: right hand; jb4 Disposition: 01/28 00:47 Co-signature as Attending Physician, Cheng Jaimes MD I agree with the assessment sp4 and plan of care. I reviewed the patient's care provided by the Advanced Practice Provider and agree with the diagnosis and treatment plan. Disposition Summary: 01/28/24 23:47 Discharge Ordered Notes: Location: Home cp Problem: an ongoing problem cp Symptoms: have improved cp Condition: Stable cp Diagnosis - Cocaine abuse cp - Other depressive episodes cp - Alcohol use, unspecified cp Followup: cp - With: Private Physician - When: 1 - 2 days - Reason: Recheck today's complaints Discharge Instructions: - Discharge Summary Sheet cp - Cocaine Use Disorder cp - Alcohol Abuse and Dependence Information, Adult cp - Managing Depression, Adult cp Forms: - Medication Reconciliation Form cp - Antibiotic Education cp - Prescription Opioid Use cp - Patient Portal Instructions cp - Leadership Thank You Letter cp Signatures: Dispatcher [employer] EDMS River Singh PA PA cp Kashif Montes, RN RN jb4 Cammy Kim RN RN jw7 Cheng Jaimes MD MD sp4 Jacy Medley RN RN nj1 Corrections: (The following items were deleted from the chart) 01/27 20:54 20:54 ACETAMINOPHEN+C.LAB.BRZ ordered. EDMS EDMS 20:54 20:54 BASIC METABOLIC PANEL+C.LAB.BRZ ordered. EDMS EDMS 20:54 20:54 CBC+H.LAB.BRZ ordered. EDMS EDMS 20:54 20:54 ETHANOL+C.LAB.BRZ ordered. EDMS EDMS 20:54 20:54 HEPATIC FUNCTION+C.LAB.BRZ ordered. EDMS EDMS 20:54 20:54 PROTIME (+INR)+COAG.LAB.BRZ ordered. EDMS EDMS 20:54 20:54 PTT, ACTIVATED+COAG.LAB.BRZ ordered. EDMS EDMS 20:54 20:54 SALICYLATE+C.LAB.BRZ ordered. EDMS EDMS 20:54 20:54 Urinalysis+U.LAB.BRZ ordered. EDMS EDMS 20:54 20:54 URINE DRUG SCREEN+UC.LAB.BRZ ordered. EDMS EDMS
[2024-01-29 00:49] VITALS: BP 104/72; TEMP 97.7; O2SAT 98
--- NOTE | 2024-01-29 12:56 | EKG ---
Test Date: 2024-01-28 Test Time: 21:29:02 Bag Filler Machine Operator: BRAYAN MEASUREMENT RESULTS: Intervals: Rate: 93 AL: 136 QRSD: 90 QT: 358 QTc: 445 Wellman: P: 68 AL: 136 QRS: 93 T: 49 INTERPRETIVE STATEMENTS: Normal sinus rhythm Normal ECG Compared to ECG 12/30/2023 22:38:22 No significant changes Electronically Signed On 01-29-24 12:54:44 CDT by Claudio Betancur
== END 2024-01-29 00:12 | disposition home or self-care (01) ==
LOC: ER 20:03
DX: F14.10 Cocaine abuse, uncomplicated (principal); F32.89 Other specified depressive episodes; F10.90 Alcohol use, unspecified, uncomplicated
CPT/HCPCS: 36415; 80048; 80076; 80143; 80179; 80307; 81003; 82077; 85025; 85610; 85730; 93005; 96374; 99285

== ENCOUNTER 2024-02-25 21:51 | Emergency (ER) | payer SELFPAY ==
--- OUTSIDE RECORDS SUMMARY | 2024-02-25 21:57 | XMS REPORT | Continuity of Care Document ---
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 AA Acid fast bacilliREFER TO [id number] Reference value: Non-sterile sites may be contaminated [...] 6463-4) Acid fast bacilli AA REFER TO [id number] Gram Stain (test code = 664-3) No organisms seen TRACY (test code = TRACY) Reference value: Non-sterile sites may be contaminated with esperanza that is considered normal or otherwise not clinically relevant. As appropriate, normal results will indicate the presence or absence of such esperanza. Otherwise, the reference value is considered "No growth". Lab Interpretation (test code = 29559-7) Abnormal [facility] Cvhu3204-35-06 10:35:39* Test Item Value Reference Range Interpretation Comme nts Bacteria Spec Cult (test code = 6463-4) ACID-FAST BACILLUS AA Acid fast bacilliREFER TO [id number] Reference value: Non-sterile sites may be contaminated with esperanza that is considered normal or otherwise not clinically relevant. As appropriate, normal results will indicate the presence or absence of such esperanza. Otherwise, the reference value is considered "No growth".[facility] Ytswgvj1835-18-45 09:36:58 * Test Item Value Reference Range Interpretation Comme nts Anaerobe Culture (test code = 635-3) No anaerobes isolated in 5 days TRACY (test code = TRACY) Reference value: N o anaerobes isolated [facility] Gfosxvb1278-98-95 09:36:11* Test Item Value Reference Range Interpretation Comme nts Anaerobe Culture (test code = 635-3) No anaerobes isolated in 5 days TRACY (test code = TRACY) Reference value: N o anaerobes isolated [facility] Owfjhys9362-53-92 09:35:49* Test Item Value Reference Range Interpretation Comme nts Anaerobe Culture (test code = 635-3) No anaerobes isolated in 5 days TRACY (test code = TRACY) Reference value: N o anaerobes isolated [facility]ed ivyirz2574-52-44 08:05:41* Test Item Value Reference Range Interpretation Comme nts Glucose POC (test code = 27281163) 107 mg/dL 74-106 H MD agricultural chemicals 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 Notifie d Lab Interpretation (test code = 98944-2) Abnormal [facility] docked khozxa6928-08-82 08:05:41* Test Item Value Reference Range Interpretation Comme nts Glucose POC (test code = 41866143) 107 mg/dL 74-106 H MD agricultural chemicals 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 Notifie d Lab Interpretation (test code = 33654-8) Abnormal [facility] docked ekedfp4509-93-97 08:05:41* Test Item Value Reference Range Interpretation Comme nts Glucose POC (test code = 02050049) 107 mg/dL 74-106 H MD agricultural chemicals 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 Notifie d Lab Interpretation (test code = 77997-7) Abnormal [facility] docked xjqfsj2662-22-63 08:05:41* Test Item Value Reference Range Interpretation Comme nts Glucose POC (test code = 57926656) 107 mg/dL 74-106 H MD agricultural chemicals 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 Notifie d Lab Interpretation (test code = 64553-9) Abnormal [facility] docked aqdbkb5132-72-47 16:50:48* Test Item Value Reference Range Interpretation Comme nts Glucose POC (test code = 07537901) 107 mg/dL 74-106 H Lab Interpretation (test cod e = 84196-9) Abnormal [facility] docked olmiso8670-89-42 11:46:44* Test Item Value Reference Range Interpretation Comme nts Glucose POC (test code = 53285571) 89 mg/dL 74-106 Lab Interpretation (test cod e = 46243-8) Normal [facility] docked fywdqz4085-01-07 08:25:07* Test Item Value Reference Range Interpretation Comme nts Glucose POC (test code = 67931387) 83 mg/dL 74-106 Lab Interpretation (test cod e = 72703-5) Normal [facility] Ycgs8945-95-63 14:19:13* Test Item Value Reference Range Interpretation Comme nts Bacteria Spec Cult (test code = 6463-4) ACID-FAST BACILLUS AA 4+ Acid fast bacilli HHSHIV 1+2 Ab+HIV1 p24 Ag SerPl Ql [id number] 19:49:40* Test Item Value Reference Range Interpretation Comme nts HIV 1+2 Ab+HIV1 p24 Ag SerPl Ql IA (test code = 58497-5) NEGATIVE Negative HHSCoronavirus, CoVID-19, [id number] 16:40:22* Test Item Value Reference Range Interpretation Comments COVID-19 (SARS-COV-2) (test code = 72044-7) Not Detected Not Detected INTERPRETATION: No detectable [...] its performance characteristics were verified by the [facility] molecular diagnostics laboratory and is authorized for clinical diagnostic use. This laboratory is certified under the Clinical Laboratory Improvement Amendments (CLIA) as qualified to perform high complexity clinical laboratory testing. Lab Interpretation (test code = 21256-5) Normal [facility], CoVID-19, [id number] 16:40:22* Test Item Value Reference Range Interpretation Comments COVID-19 (SARS-COV-2) (test code = 65039-7) Not Detected Not Detected INTERPRETATION: No detectable [...] its performance characteristics were verified by the [facility] molecular diagnostics laboratory and is authorized for clinical diagnostic use. This laboratory is certified under the Clinical Laboratory Improvement Amendments (CLIA) as qualified to perform high complexity clinical laboratory testing. Lab Interpretation (test code = 56911-0) Normal [facility], CoVID-19, [id number] 16:40:22* Test Item Value Reference Range Interpretation Comments COVID-19 (SARS-COV-2) (test code = 59556-4) Not Detected Not Detected INTERPRETATION: No detectable [...] its performance characteristics were verified by the [facility] molecular diagnostics laboratory and is authorized for clinical diagnostic use. This laboratory is certified under the Clinical Laboratory Improvement Amendments (CLIA) as qualified to perform high complexity clinical laboratory testing. Lab Interpretation (test code = 85863-7) Normal [facility], CoVID-19, [id number] 16:40:22* Test Item Value Reference Range Interpretation Comments COVID-19 (SARS-COV-2) (test code = 51911-6) Not Detected Not Detected INTERPRETATION: No detectable [...] its performance characteristics were verified by the [facility] molecular diagnostics laboratory and is authorized for clinical diagnostic use. This laboratory is certified under the Clinical Laboratory Improvement Amendments (CLIA) as qualified to perform high complexity clinical laboratory testing. Lab Interpretation (test code = 34838-5) Normal [facility] CampusOtgitnHQPE-UlL-4 RNA Resp Ql YOKASTA+umkwn0655-47-56 16:40:22* Test Item Value Reference Range Interpretation Comme nts Hospitalized? (test code = 96295-6) No ICU? (test code = 71499-4) No Symptomatic as defined by CDC? (test code = 90278-9) No Employed in Healthcare? (test code = 76499-0) Unknown Resident in a congregate care setting (including nursing homes, residential care for people with intellectual and developmental disabilities, psychiatric treatment facilities, group homes, board and care homes, homeless penitentiary, foster care or other): (test code = 58067-3) Unknown SARS-CoV-2 RNA Resp Ql YOKASTA+probe (test code = 21631-6) NOT DETECTED Not Detected INTERPRETATION: No detectable [...] its performance characteristics were verified by the [facility] molecular diagnostics laboratory and is authorized for clinical diagnostic use. This laboratory is certified under the Clinical Laboratory Improvement Amendments(CLIA) as qualified to perform high complexity clinical laboratory testing.HHSHIV 1+2 Ab+HIV1 p24 Ag SerPl Ql [id number] 17:45:02* Test Item Value Reference Range Interpretation Comme nts HIV 1+2 Ab+HIV1 p24 Ag SerPl Ql IA (test code = 41836-8) NEGATIVE Negative TSLFHBXURVDYI3028-69-79 23:16:25* Test Item Value Reference Range Interpretation Comme nts SALICYLATE (test code = 6305171580) <10 mg/L TRACY (test code = TRACY) Therapeutic Range: ? Analgesic and Antipyretic Use ? 20-100 mg/L ? ? Anti-Inflammatory Use ? 100-250 mg/L Toxic Range: ? Greater than 300 mg/L [facility] 23:16:15* Test Item Value Reference Range Interpretation Comme nts ALCOHOL (test code = 1886444721) <10 mg/dL TRACY (test code = TRACY) <10 Qhnmvoiv92-621 Toxic>100 Depression of LAY UP OPERATOR>400 Fatalities Reported [facility]ACET[facility]OPHEN[facility] 23:16:10* Test Item Value Reference Range Interpretation Comme nts ACETAMINOP (test code = 7260304568) <10.0 10.0-30.0 L TRACY (test code = TRACY) Toxic: Greater chela n 200 ug/mL @ 4 hour post ingestion or greater than 50 ug/mL @ 12 hour post ingestion Lab Interpretation (test code = 68817-2) Abnormal [facility] (ALB, T.PRO, BILI T, BU/BC, ALT, AST, ALK PHOS)2021-01-30 23:14:14* Test Item Value Reference Range Interpretation Comme nts TOTAL BILI (test code = 5583357471) 0.8 mg/dL 0.1-1.1 BILI UNCON (test code = 1298794888) 0.6 mg/dL 0.1-1.1 BILI CONJ (test code = 4748551676) 0.0 mg/dL 0.0-0.3 T PROTEIN (test code = 7534357155) 7.5 g/dL 6.3-8.2 ALBUMIN (test code = 8476821021) 4.8 g/dL 3.5-5.0 ALK PHOS (test code = 9608872776) 63 U/L 34-122 ALTv (test code = 1742-6) 33 U/L 5-50 AST(SGOT) (test code = 0006251699) 36 U/L 13-40 Lab Interpretation (test cod e = 57541-1) Normal [facility] (NA, K, CL, CO2, GLUCOSE, BUN, CREATININE, CA)2021-01-30 23:13:54* Test Item Value Reference Range Interpretation Comme nts NA (test code = 1190174071) 142 mmol/L 135-145 K (test code = 6695484264) 4.3 mmol/L 3.5-5.0 CL (test code = 7659308432) 105 mmol/L 98-108 CO2 TOTAL (test code = 9239289564) 25 mmol/L 23-31 AGAP (test code = 2483784946) 2-16 BUN (test code = 5198605482) 17 mg/dL 7-23 GLUCOSE (test code = 0447036693) 86 mg/dL 70-110 CREATININE (test code = 8448090947) 0.85 mg/dL 0.60-1.25 CALCIUM (test code = 5485975217) 9.9 mg/dL 8.6-10.6 eGFR (test code = 1027763345) mL/min/1.73m2 TRACY (test code = TRACY) Association [...] Medical CenterURINE DRUG (IMMUNOASSAY) - COMPREHENSIVE DRUG [id number] 23:05:57* Test Item Value Reference Range Interpretation Comme genia KOENIG (test code = 0090630224) Presumptive Positive Negative A CHACORTA U (test code = 5439634852) Negative Negative BENZO U (test code = 9392982672) Presumptive Positive Negative A Cocaine Metabolite (test code = 9922064959) Negative Negative METHADONE (test code = 7506492493) Negative Negative OPIATES (test code = 7884467669) Presumptive Positive Negative A PCP (test code = 5675000782) Negative Negative THC (test code = 7913174372) Presumptive Positive Negative A TRACY (test code [...] legal testing). Lab Interpretation (test code = 62059-4) Abnormal [facility] (ID NOW RAPID TESTING)2021-01-30 22:34:55* Test Item Value Reference Range Interpretation Comme nts SARS-CoV-2 Rapid ID NOW (test code = 41188-3) Not Detected Not Detected TRACY (test code = TRACY) ID NOW COVID-19 As say is an isothermal nucleic acid amplification test intended for the qualitative detection of nucleic acid from SARS-CoV-2 viral RNA in nasopharyngeal (SOCIAL INSURANCE ANALYST) specimens. It is used under Emergency [...] clinically indicated. Lab Interpretation (test code = 03437-2) Normal [facility] CenterUrinalysis2021-[facility] 22:30:19* Test Item Value Reference Range Interpretation Comme nts APPEARANCE (test code = 4903599508) Clear Clear COLOR (test code = 2286439597) Yellow Yellow PH (test code = 5588154799) 4.8-8.0 SP GRAVITY (test code = 8640374509) 1.003-1.030 GLU U QUAL (test code = 0055605462) Normal Normal BLOOD (test code = 2333495123) Negative Negative KETONES (test code = 8464840824) Negative Negative PROTEIN (test code = 2887-8) Negative Negative UROBILIN (test code = 3268736546) 2.0 mg/dL Normal A BILIRUBIN (test code = 2904405981) Negative Negative NITRITE (test code = 6870278125) Negative Negative LEUK DIONE (test code = 8023640818) Negative Negative RBC/HPF (test code = 1509883444) See_Comment [Automated messa ge] The system which generated this result transmitted reference range: 0 - 3 HPF. The reference range was not used to interpret this result as normal/abnormal. WBC/HPF (test code = 3813241322) <1 See_Comment [Automated messa ge] The system which generated this result transmitted reference range: 0 - 5 HPF. The reference range was not used to interpret this result as normal/abnormal. BACTERIA (test code = 8422473153) Negative Negative SQ EPITH (test code = 4012961098) <1 HPF Lab Interpretation (test code = 66869-3) Abnormal [facility] CenterCBC with Fwwxdfrttkdo4854-83-13 22:19:35* Test Item Value Reference Range Interpretation [...] 34.6 g/dL 31.2-35.0 RDW-SD (test code = 88852-1) 42.8 fL 38.5-51.6 RDW-CV (test code = 788-0) 13.3 % 12.1-15.4 PLT (test code = 777-3) See_Comment H [Automated messa ge] The system which generated this result transmitted reference range: 150 - 328 10*3/?L. The reference range was not used to interpret this result as normal/abnormal. MPV (test code = 91222-7) 9.9 fL 9.8-13.0 NRBC/100 WBC (test code = 9638096482) See_Comment [Automated me ssage] The system which generated this result transmitted reference range: 0.0 - 10.0 /100 WBCs. The reference range was not used to interpret this result as normal/abnormal. NRBC x10^3 (test code = 2894222167) <0.01 See_Comment [Automated messa ge] The system which generated this result transmitted reference range: 10*3/?L. The reference range was not used to interpret this result as normal/abnormal. GRAN MAT (NEUT) % (test code = 770-8) 79.2 % IMM GRAN % (test code = 5325232379) 0.50 % LYMPH % (test code = 736-9) 14.8 % MONO % (test code = 5905-5) 4.9 % EOS % (test code = 713-8) 0.2 % BASO % (test code = 706-2) 0.4 % GRAN MAT x10^3(ANC) (test code = 1808823952) 9.77 10*3/uL 1.99-6.95 H IMM GRAN x10^3 (test code = 9003752873) 0.06 10*3/uL 0.00-0.06 LYMPH x10^3 (test code = 731-0) 1.82 10*3/uL 1.09-3.23 MONO x10^3 (test code = 742-7) 0.60 10*3/uL 0.36-1.02 EOS x10^3 (test code = 711-2) 0.03 10*3/uL 0.06-0.53 L BASO x10^3 (test code = 704-7) 0.05 10*3/uL 0.01-0.09 Lab Interpretation (test code = 92201-5) [facility] LS7519-03-43 20:48:00* Test Item Value Reference Range Interpretation Comme nts COVID 19 INHOUSE AG (test co de = [id number]) NEGATIVE URINALYSIS BNMHKRUO4172-80-51 16:11:00* Test Item Value Reference Range Interpretation [...] Urine Source? Clean CatchDRUGS OF ABUSE SCREEN ZP9819-10-88 16:11:00* Test Item Value Reference Range Interpretation [...] result as normal/abnormal. Urine Source? Clean CatchURINALYSIS QHXAPGCU1443-60-50 15:45:00* Test Item Value Reference Range Interpretation [...] Urine Source? Clean CatchDRUGS OF ABUSE SCREEN KP0712-18-11 15:45:00* Test Item Value Reference Range Interpretation Comme nts URN COCAINE (test code = COCAURN) NEGATIVE See_Comment [Automated [employer]] The system which generated this result transmitted reference range: <300 ng/mL. The reference range was not used to interpret this result as normal/abnormal. URN CANNABINOIDS (test code = CANNABURN) NEGATIVE See_Comment [Automated Sqeeqee] The system which generated this result transmitted reference range: <50 ng/mL. The reference range was not used to interpret this result as normal/abnormal. URN AMPHETAMINE (test code = AMPHETURN) NEGATIVE See_Comment [Automated Sqeeqee] The system which generated this result transmitted reference range: <1000 ng/mL. The reference range was not used to interpret this result as normal/abnormal. URN BARBITURATE (test code = BARBITURN) NEGATIVE See_Comment [Automated Sqeeqee] The system which generated this result transmitted [...] result as normal/abnormal. Urine Source? Clean CatchURINALYSIS WNOQTKRO5776-87-88 14:21:00* Test Item Value Reference Range Interpretation [...] Urine Source? Clean CatchDRUGS OF ABUSE SCREEN [id number] 14:21:00* Test Item Value Reference Range Interpretation [...] result as normal/abnormal. Urine Source? Clean CatchURINALYSIS RRQHZDHQ5101-63-35 14:18:00* Test Item Value Reference Range Interpretation [...] Urine Source? Clean CatchDRUGS OF ABUSE SCREEN UO5716-53-36 14:18:00* Test Item Value Reference Range Interpretation Comme nts URN COCAINE (test code = COCAURN) See_Comment [Automated NewsFixeda ge] The system which generated this result transmitted reference range: <300 ng/mL. The reference range was not used to interpret this result as normal/abnormal. URN CANNABINOIDS (test code = CANNABURN) See_Comment [Automated QuNano hay] The system which generated this result [...] as normal/abnormal. Urine Source? Clean CatchBASIC METABOLIC WEQAA7885-72-39 12:13:00* Test Item Value Reference Range Interpretation [...] CA) 9.9 mg/dL 8.5-10.1 N HEPATIC FUNCTION [id number] 12:13:00* Test Item Value Reference Range Interpretation [...] reference range due to change in reagent. SJLGCKCKRFIYU1750-71-29 12:13:00* Test Item Value Reference Range Interpretation Comme nts ACETAMINOPHEN (test code = ACET) < 10 mcg/mL 10-30 L A RANGE OF 10-30 mcg/mL IS A THERAPEUTIC RANGE. TOXIC CONCENTRATIONS: >150 mcg/mL AT 4 HOURS AFTER INGESTION >= 50 mcg/mL AT 12 HOURS AFTER INGESTION QOCMKDVKPI9842-16-66 12:13:00* Test Item Value Reference Range Interpretation Comme nts SALICYLATE (test code = RENALDO) < 3.0 mg/dL 2.8-20.0 N [id number] 12:13:00* Test Item Value Reference Range Interpretation [...] ANADDITIONAL CHARGE TO THE PATIENT. CBC W/O BXNV0086-43-67 11:49:00* Test Item Value Reference Range Interpretation [...] 9.7 fL 6.7-11.0 N COVID 19 INHOUSE [id number] 00:12:00* Test Item Value Reference Range Interpretation Comme nts COVID 19 INHOUSE AG (test co de = [id number]) NEGATIVE URINALYSIS ALQKHMDM0189-45-50 20:58:00* Test Item Value Reference Range Interpretation [...] Urine Source? Clean CatchDRUGS OF ABUSE SCREEN [id number] 20:58:00* Test Item Value Reference Range Interpretation [...] as normal/abnormal. Urine Source? Clean CatchBASIC METABOLIC TAKTS9347-56-20 20:58:00* Test Item Value Reference Range Interpretation [...] CA) 8.8 mg/dL 8.5-10.1 N HEPATIC FUNCTION UNCQA6669-16-64 20:58:00* Test Item Value Reference Range Interpretation [...] reference range due to change in reagent. KULGJGME-P0981-41-14 20:58:00* Test Item Value Reference Range Interpretation Comme nts TROPONIN-I (test code = TROPI) < 0.006 ng/mL 0-0.045 N JNFJKWIJQYHBP2979-38-03 20:58:00* Test Item Value Reference Range Interpretation Comme nts ACETAMINOPHEN (test code = ACET) < 10 mcg/mL 10-30 L A RANGE OF 10-30 mcg/mL IS A THERAPEUTIC RANGE. TOXIC CONCENTRATIONS: >150 mcg/mL AT 4 HOURS AFTER INGESTION >= 50 mcg/mL AT 12 HOURS AFTER INGESTION TCABDQOBGI8690-39-95 20:58:00* Test Item Value Reference Range Interpretation Comme nts SALICYLATE (test code = RENALDO) < 3.0 mg/dL 2.8-20.0 N LIRWDQW7200-86-77 20:58:00* Test Item Value Reference Range Interpretation [...] TO THE PATIENT. - CT HEAD/BRAIN W/O [id number] 20:52:00 [facility]Name: TEJ GUADALUPE : 1985 Sex: M Name: TEJ GUADALUPE [facility] : 1985 Age/S: 35 / M [address] [facility] #: [id number] Loc: [place]IS[place] [address] Phys: Shaggy Morrow MD Acct: [id number] Dis Date: Status: PRE ER PHONE #: [phone] Exam Date: 12/13/20202017 FAX #: [phone] Reason: CONFUSION EXAMS: CPT CODE:[id number] CT HEAD/BRAIN W/O CONT 26624 HISTORY: CONFUSION TECHNIQUE: Noncontrast 2.[address] ofthe head. Examination acquired within 24 hours of [...] 12/13/2020 (2054) PAGE 1 Signed Report URINALYSIS [id number] 20:39:00* Test Item Value Reference Range Interpretation [...] Urine Source? Clean CatchDRUGS OF ABUSE SCREEN [id number] 20:39:00* Test Item Value Reference Range Interpretation Comme nts URN COCAINE (test code = COCAURN) See_Comment [Automated NewsFixeda ge] The system which generated this result transmitted reference range: <300 ng/mL. The reference range was not used to interpret this result as normal/abnormal. URN CANNABINOIDS (test code = CANNABURN) See_Comment [Automated Qu[employer] hay] The system which generated this result [...] BARBITURATE (test code = BARBITURN) See_Comment [Automated NewsFixeda ge] The system which generated this result [...] result as normal/abnormal. Urine Source? Clean CatchURINALYSIS [id number] 20:29:00* Test Item Value Reference Range Interpretation [...] Urine Source? Clean CatchDRUGS OF ABUSE SCREEN [id number] 20:29:00* Test Item Value Reference Range Interpretation [...] as normal/abnormal. Urine Source? Clean CatchCBC W/O [id number] 20:22:00* Test Item Value Reference Range Interpretation [...] Notes Date/Time Note Provider Source 2022-06-01 16:47:23 nWmuz+WT/J6jHLnUG/Ac tGSpHtTF+dP lt/s6zJ+1qWJ+5DZfj6xlBjyxONgvIH /f5716-82-23D77:47:23Associated Order(s): CONSULT TO PHARMACY-AMINOGLYCOSIDESFormatt ing of this [...] with any questions. Sil Soliz, Pharm.D., BCIDPClinical Director Of Claims - Infectious DiseasesCisco: [id number] signed by Sil SolizMER[facility] at 06/01/2022 4:48 PM WUU12786-2Elqeamv aydfDN5785-17-94F80:48:27Consul t noteTXT1.2.840.736589.1.13.43.2 .7.2.088320|8498028309UHQbkqhvv for patient kagt99754-0Pydaszj tcvnEN746996141Omplnem Ayn Finch [address]TXTX[address] 6FGVG7806-52-37A86:48:271.2.840 .117157.1.72.3.15|1.2.840.40862 0.1.13.43.2.7.2.727879_[id number] 31 Sil Soliz [facility] 2022-05-31 16:00:25 lwTyZXmf3TWxet10+jXs oPcLQHizK5B o8IuZObntHzc9JOt8mX/6OSpRxHOyvB vd7063-23-33Y68:00:25 Pharmacy Aminoglycoside Monitoring NoteIndication: NTM SSTI/abscessDay of [...] with any questions. Sil Soliz, Pharm.D., BCIDPClinical Director Of Claims - Infectious DiseasesCisco: [id number] signed by Sil Soliz [facility] at 05/31/2022 4:00 PM GGR18923-2Pbkpesf awoiUP0468-76-72W50:00:59Consul t noteTXT1.2.840.887696.1.13.43.2 .7.2.557698|6499761553FJUwcvsuh for patient rhqt99575-1Qxshuqm [facility] [facility] Children's HospitalUjzmMmurxzbMlgotnbOPBY653105849 3XCOP4946-19-50Q55:00:591.2.840 .163813.1.72.3.15|1.2.840.12872 0.1.13.43.2.7.2.727879_[id number] [address] [place] [address] 2022-05-30 14:28:02 J+2x5wKUMuLt5eKq6dJv GUqdVI6wwJ3 3tJSzBpOgbKRSjiiHmJhmSnCLiPXgAI Al4283-96-21I97:28:02 Pharmacy Aminoglycoside Monitoring NoteIndication: NTM SSTI/abscessDay of [...] with any questions. Sil Soliz, Pharm.D., BCIDPClinical Director Of Claims - Infectious DiseasesCisco: [id number] signed by Sil Soliz [facility] at 05/30/2022 2:36 PM IBY75148-6Kjqgvhd aypkCX1631-89-08H61:36:01Consul t noteTXT1.2.840.774244.1.13.43.2 .7.2.771160|8829749368OMZyuvqds for patient fybs85823-3Frnfssx [facility] [place], [place] [address]KfgnMvhchnhMqvuxpjJFYK516300103 6GGMI4394-06-20Q33:36:011.2.840 .514893.1.72.3.15|1.2.840.97831 0.1.13.43.2.7.2.727879_[id number] [address] [place] [address] 2022-05-29 12:08:26 MpzhUkT+bIs6aSVb2UyJ wFuGj8AlA70 NDWI05HadDsjwgFonVmG29rPnAtP+Dy Dy8723-68-89P23:08:26 Pharmacy Aminoglycoside Monitoring NoteIndication: NTM SSTI/abscessDay of therapy: 5 Target concentration: dosing per [place] nomogram, targeting goal peak ~25-45 mcg/mL, trough [...] contact us with any questions. Mariam Lepe [facility].BCOPClinical Director Of Claims Hematology/OncologyCisco : [phone] signed by Mariam LepeMERCY [facility] at 05/29/2022 12:09 PM QOT30946-8Ofsymvf ervkIE1709-70-64V45:09:49Consul t noteTXT1.2.840.596754.1.13.43.2 .7.2.902507|8410548466HERqjwnxv for patient liid07473-9Dluoatn stldFZ77622226Mpuiguw Rostane [address]TXTX[address] 9AIJF3500-05-45T22:09:491.2.840 .998838.1.72.3.15|1.2.840.98753 0.1.13.43.2.7.2.727879_[id number] 42 Mariam Lepe [facility] 2022-05-28 10:27:53 CiCDJnTJGN/yed6864f0 iAustO7QiTo GKZNbnm6mnewcFmRWvu1levl1HUmjw6 vd4198-62-37S27:27:53 Pharmacy Aminoglycoside Monitoring NoteIndication: NTM SSTI/abscessDay of therapy: 4 Target concentration: dosing per [place] nomogram, targeting goal peak ~25-45 mcg/mL, trough [...] contact us with any questions. Mariam Lepe [facility].BCOPClinical Director Of Claims Hematology/OncologyCisco : [phone] signed by Mariam Lepe [facility] at 05/28/2022 10:29 AM AMG68479-0Pxtnuzq fsqaHH7754-28-53T31:29:36Consul t noteTXT1.2.840.030851.1.13.43.2 .7.2.897991|0881744152AXIrsibme sabiha for patient gvqb79020-0Xoyhvpg [address]TXTX[address] 4FQGU7462-64-36L16:29:361.2.840 .364561.1.72.3.15|1.2.840.83041 0.1.13.43.2.7.2.727879_[id number] 61 [facility] 2022-05-27 12:23:47 BDvcfI3w3lh6bmBmhPMa j5OFgeBTPMK 8hRATrYag1QQm7AA0D3OXWSIlVQZx4C tf8151-70-57I95:23:47 Pharmacy Aminoglycoside Monitoring NoteIndication: NTM SSTI/abscessDay of therapy: 3 Target concentration: dosing per [place] nomogram, targeting goal peak ~25-45 mcg/mL, trough [...] with any questions. Ruchi Olsen, PharmD, BCCCPPhone: [phone] signed by Ruchi Olsen [facility] at 05/27/2022 1:04 PM VSD21180-1Ogcgywy rujxNQ7784-69-17N65:04:50Consul t noteTXT1.2.840.544634.1.13.43.2 .7.2.521344|9576683281VHTgoexhq for patient lgvb95637-5Sszyaws dtkdRM101439719Qqqt Sigmon [address]TXTX[address] 8MYPD0389-83-55N32:04:501.2.840 .664867.1.72.3.15|1.2.840.86231 0.1.13.43.2.7.2.727879_[id number] 11 Ruchi Olsen [facility] 2022-05-26 09:18:39 03Y3y6/WZOAudXV8++ck 13NUwMhkYaI 6L4Cry8Tug/yhSFSrO1OmCdbz0G2LEC JT2382-14-32T13:18:39 Pharmacy Aminoglycoside Monitoring NoteIndication: NTM SSTI/abscessDay of therapy: 2 Target concentration: dosing per [place] nomogram, targeting goal peak ~25-45 mcg/mL, trough ~5 mcg/mL Concomitant antibiotics: Azithromycin, tigecyclineAllergies: No known allergies Pertinent Objective Labs: Date dose/frequency concentration (peak/trough/random) 05/26 800mg q24h 5.9 (9h random) Microbiology:pending Assessment:1. CrCl: >120,Scr/BUN stable, 2. Continues on amikacin 800mg (10mg/kg) q24h 3. Random 9h level obtained today demonstrates dose appropriate per [place] nomogramPlan: 1. Will Continue current dose2. Labs Ordered: will order 2 levels: 2-h and 8-h post dose levels to confirm Thank you for the opportunity to participate in the care of this patient. Please do not hesitate to contact us with any questions. Ruchi Olsen, PharmD, [facility]OSPITALCPPhone: [phone] signed by Ruchi OlsenMERCY MCC[facility] at 05/26/2022 9:36 AM GBA15473-8Qyvjuix jxekJE2422-20-99U67:36:50Consul t noteTXT1.2.840.882305.1.13.43.2 .7.2.592638|4305249019SSVpstipq for patient tqrb22498-0Ypkhltf [address]TXTX[address] 5WWAB0387-98-06H62:36:501.2.840 .199113.1.72.3.15|1.2.840.30070 0.1.13.43.2.7.2.727879_[id number] 20 [facility] 2022-05-25 08:07:02 RYWxkVL/S9EDMNz9s0tu LNC5EdhFEzC QDoWoW/GpZj4FZ2ji7cHtg3e5AwEsnG lS2937-05-95D73:07:02Associated Order(s): IP CONSULT TO INFECTIOUS DISEASE Images from the original note were not included.Infectious Disease Consult ServiceAttending Consult NoteReason for Consult: NTM infectionRequesting Physician: Chai Burchission Date: 05/23/2022 Admission Diagnosis: CellulitisImpression/Recommenda tions: Tej [...] Ludwig, isolate will be sent immediately to [facility] for ID and sensis- growth from a [...] follow this fascinating caseArash Obando MD, PhD [facility] Infectious DiseasesProvider #[id number] 2021 8:09 AM H istory Obtained From: [...] homeless. He has not travelled outside of [place] recently and does not have any sick [...] and documented in the appropriate sections in [facility].Immunization history: There is no immunization history on [...] Data: All labs, images, and data reviewed. 73503-0Atqvfbk ddoaBQ4294-37-53D67:04:27Consul t noteTXT1.2.840.742816.1.13.43.2 .7.2.393318|8300616593SCKjczrgo for patient utet30356-3Iedojwi noteLNOhio Valley Surgical Hospital[address] [facility] Children's HospitalKuwrGzslcnhHjnqhsmLFII754062507 0USFQ2141-30-87B88:04:271.2.840 .169769.1.72.3.15|1.2.840.98601 0.1.13.43.2.7.2.727879_[id number] 10 [facility] 2022-05-23 21:39:21 /8ukhyagwrmbO2zzgLkB zx0bvqHXHuq L8kyy8vjbdCi7tT6OlXonjV3k7UWZv8 Ee8009-11-54D03:39:21Associated Order(s): IP CONSULT TO HAND SURGERY Plastic [...] to followChristopher Germán, MDPlastic and Reconstructive Surgery, EHM7VlucrbSanta Rosa Memorial HospitalPager: [phone] 2021 9:39 PMSubjective: Chief Complaint: forearm painHistory [...] with no changes. No need to repeat 56976-4Cjrhdqx lixoRV730300YbpgzipqjaAdrian Anderson B1.2.840.204671.1.13.43.2.7.2.8 17589UdgwucormqZlfvbHbftl BJP8976-17-74X55:42:00Consult noteTXT1.2.840.206024.1.13.43.2 .7.2.181576|6339490390NJMlggzqd for patient qlaz13229-6Mxuwpeh noteLNOhio Valley Surgical Hospital25[address] [facility] HospitalWkpzJwxtgzkEpcwrxuSDUR869037447 4NNUN1470-31-18L41:50:061.2.840 .130685.1.72.3.15|1.2.840.42711 0.1.13.43.2.7.2.727879_[id number] 43 [facility] History and Physical Notes Date/Time Note Provider Source 2022-05-23 22:01:59 2iMO882fhP50rl7hyLir NuvsRLhHcGO 9YACMSb1I6bqG7gW3ZBh9NCW8i7bnLN IQ0767-62-83D97:01:59 Medicine Team B Admission History & PhysicalAssessment/Plan:Tej [...] negative from 05/19 - suspect treatment failure / inadequate source control, patient denies current IVDU [...] Status: FULL CODEEmergency Contact: Primary Emergency Contact: GUADALUPELydia, Sddcq [facility] TYA3SsbbeqSanta Rosa Memorial Hospital10:02 PM, 05/23/2022 Chief Complaint: forearm [...] Please see my separate note for my attestation.78452-4Meavvbd and physical szzgZT491377Fjjok, Vishal1.2.840.465481.1.13.43.2. 7.2.044902VcyguTwuexiZ, QZ6344-24-50T05:10:26History and physical noteTXT1.2.840.406295.1.13.43.2 .7.2.095029|1457584290ENHilggis for patient ytad28411-4Fftqyne and physical noteLNInternal MedicineInternal MedicineOhio Valley Surgical Hospital[address] WnejZcpdivjOxqrvpvDIGM971690908 7HWIS9509-92-88M72:10:261.2.840 .054212.1.72.3.15|1.2.840.72340 0.1.13.43.2.7.2.727879_[id number] 78 Internal Medicine [facility] Procedure Notes Date/Time Note Provider Source 2022-05-31 08:35:51 1uICu63JE8cKmv5M60mn tYI0GOY9ovT3xQusR 3e6oyA38MUV9KpgkWW7Pd+Ls+C85950-78-87 T08:35:51Procedure(s): I& D OF ABSCESS WITH PACKING [...] no complicationsChristopher Germán, MDPlastic and Reconstructive Surgery, RRC2FdxyntSanta Rosa Memorial HospitalPager: [phone] 2021 8:36 AM 51968-1Aqoadbzxp eflbMD207832HaKrysta1.2.840.992680.1.13.43.2.7.2.83 4844UxLrohboKA8654-84-28H66:00:54Proc edgar noteTXT1.2.840.544254.1.13.43.2.7.2.7 46451|5039777693RSZfahkgvfh for patient gpjc98119-7Ftvuznizu noteLNOhio Valley Surgical Hospital25[address] [facility] HospitalMqlaTgioadaRrujcwoDHFM4283138224YVPV8 569-90-72O90:49:121.2.840.335649.1.72 .3.15|1.2.840.807581.1.13.43.2.7.2.72 7879_[id number] [facility] 2022-05-24 16:29:09 gqmkzR/+3cvvzMX0Ydwe 2vZIfyKdo0bcwj5nb gLTNUuXxrcQ7kJ+5w5D7n9BHkrQ9649-99-70 T16:29:09Procedure(s): I& D OF ABSCESS WITH PACKING [...] 1Dressings: AppliedEstimated Blood Loss: MinimalSpecimens Collected: Culture t8Achqqvcylzjsf: nonePrimary Proceduralist: MULU Carrilloupervising Physician: JUAN Andersonrocedure [...] microbiology lab.Gabe Dunlap, MDPlastic and Reconstructive Surgery, UHD7GiftwpSanta Rosa Memorial HospitalPager: [phone] 2021 4:30 PM 21918-2Mmmynbykv zuqwOH517487PlutwvlgghAdrian Anderson B1.2.840.648045.1.13.43.2.7.2.436889N [facility]2022-08-24T07:42:01Procedure noteTXT1.2.840.176664.1.13.43.2.7.2.7 59552|8391016839ZIAimenaaiz for patient hphq44671-2Cvmyngxed noteLNOhio Valley Surgical Hospital25[address] [facility] Children's HospitalIoonBdyxdsdXhzczqpTBYQ4978994157QOMS5 040-86-22K44:41:491.2.840.215756.1.72 .3.15|1.2.840.303758.1.13.43.2.7.2.72 7879_[id number] [facility] Notes Date/Time Note Provider Source 2023-11-01 14:19:23 XSAlRqP6/2spCDyvSqyK1ZISMadluRiRn7yuPD qoNQ1TOwGZOW7kq0z3VLAIqjWF1227-70-70A6 4:19:23 Chief ComplaintPatient presents withAnxietyRefill RequestPast Medical [...] [place] [address]-3Zbyowvgwb department DpgoJW4122-59-72Z20:20:13Emergen department NoteTXT1.2.840.683503.1.13.104.2.7.2.7 24673|8642032032QCQpizovrev for patient zfvj08263-2DgxzCBZJUWHSNWWGmzopblzb C-CDA narrative fqbj776635913Bktyseav M Felix RNUT[address] XjgoTtychvotsClyutqmcuHAVA0840947067RW WRGTJVJLNAALZWWQKSCJ1157-26-28B04:20:1 31.2.840.330443.1.72.3.15|1.2.840.1143 50.1.13.104.2.7.2.727879_[id number] Kelyl Spence RN [facility] 2023-11-01 13:00:35 uParyPKv/KqfIOG7ME3U7C6bdvY2IM5N5egizP lze06hIUVMxahtGAqmzCN0uwWo0046-40-19Y5 3:00:35 Patient to ED for anxiety due to doesn't have any of his clonazepam 2mg tabs anymore. He recently lost his grandmother and grandfather and been taking more than he is supposed to. He has been in withdrawal for 5 days. 33719-6Socdwskzh department Triage ltrnAM5483-07-49F64:01:57Emepeacehealth [facility] department Triage noteTXT1.2.840.369497.1.13.104.2.7.2.7 22858|7227098538UDTaihyvquu for patient gfaa80903-0Foacuftjs department NoteLNNARRATIVEFormatted C-CDA narrative htxj913390368Uohkvjz D Wierzbicki RN[address] RyeqMexhwwtkwWuyiezfidRKQX9359037440UM ANIIHEHISAPXAOPRVCMK2018-36-32L08:01:5 71.2.840.894622.1.72.3.15|1.2.840.1143 50.1.13.104.2.7.2.727879_[id number] Chucky Hawkins RN [facility] 2023-10-02 12:30:00 3ZtjvLjzYPwMZk6xjEUTsVigxcT9gh4oY/4AnK e10rXpBu64oLTXVtWUqAWMZ8Si4080-84-59X1 2:30:00 Pt given printed and verbal discharge [...] with steady gait, in no apparent distress. 15650-9Oszwpqrxo department NvyjLW2708-88-49P54:30:56[facility] department NoteTXT1.2.840.703796.1.13.104.2.7.2.7 81351|[id number] for patient nsze87993-7WuwkEBRVQTUAJNUSrzioxied C-CDA narrative [id number] M Augustin RNUT[id number] JOYTUOWZGUKEGOJRDTSL6072-38-88F66:30:5 61.2.840.826932.1.72.3.15|1.2.840.1143 50.1.13.104.2.7.2.727879_[id number] Ayah Porter Augustin MARTINI [facility] 2023-10-02 11:56:31 9LqWAozVxHosLz4LOrOe/9K9pBHZb3T40DOda8 FXa9CbMJeg9I+3xbcYVfxANYT/0721-92-05F1 1:56:31 Patient states: "I came here yesterday and checked in but I left. I'm detoxing off klonopin. I wanted to know if yall can refill it. My doctor doesn't do klonopin anymore." 53079-2Dwohjyrwu department Triage zwewAT1574-44-81I41:57:33[facility] Triage noteTXT1.2.840.367588.1.13.104.2.7.2.7 19653|[id number] for patient gfpg32949-5Adtffplhe department NoteLNNARRATIVEFormatted C-CDA narrative [id number] M Cruz RNUT[id number] YHREKOJJPSRBECYIMDVM0429-43-33J60:57:3 31.2.840.595754.1.72.3.15|1.2.840.1143 50.1.13.104.2.7.2.727879_[id number] Elisabeth Soto RN [facility] 2023-10-02 11:43:00 Qsj0KBaNn4sNDgXVH2GuNChWp71Js0sFRdbB3f Xr/34P3pt2BLavDcCwC0URm9rU1153-47-35J9 1:43:[address] [facility] Emergency Department NotePatient Name: Tej Reyna of : 1985 38 year old maleTreatment Room: [facility] POOL/ADERTA-PLMedical Record Number: [id number] Care Physician: Rene Smith (Inactive)Patient Escorted by: [...] Complaint:Chief ComplaintPatient presents withOtherMedication refillHistory of Present Illness:OEG03ma M with anxiety and prescribed klonopin 2mg presents today needing refill. He states he is not doing good, feels his heart racing and keeps breaking out into sweats. He states he is trying to get ahold of [facility] and anybody else who can see him. [...] 1 mgFirst Provider Eval:ED EventsDate/Time Event User Gsnfbiko26/01/24 1207 Medical Screening Begins DEB BURGOS MD [...] on fileFollow-up:Electronically signed by:Deb Burgos DO10/02/23 1220 64661-9Kwsmfprvb Emergency department RmbeTU5584-70-62O15:20:50[facility] Emergency department NoteTXT1.2.840.978463.1.13.104.2.7.2.7 58120|[id number] for patient aulh28529-7Dhvhiqnpc[address] [place] [address] NoteLNNARRATIVEFormatted C-CDA narrative text[address] Wd[id number] MEMZEISIHCLJSFTCMSDN1721-68-55W36:20:5 01.2.840.288144.1.72.3.15|1.2.840.1143 50.1.13.104.2.7.2.727879_[id number] [facility] 2023-09-28 19:25:10 pEOZLLMh+G2ydQZU83G59gy7IMOlINctahmRHy 0S06BKQE6xoszfcdCQL8MsyBmF8160-35-38P0 9:25:10 Pt unable to be located. Never was seen by provider. 66490-5Gleweviys department PyzqZX0758-70-72I01:25:28[facility] department NoteTXT1.2.840.565741.1.13.104.2.7.2.7 25792|[id number] for patient cgvh61356-3WiioXQLBXJZRFBTOtsygjkwx C-CDA narrative [id number] D Roman RN[address] [id number] WCMULBLDEKQXBTNAHLUR2578-32-63K98:25:2 81.2.840.598248.1.72.3.15|1.2.840.1143 50.1.13.104.2.7.2.727879_[id number] Medina Presley RN [facility] 2023-09-28 18:17:15 ULeON9E9MGrPrWXW1XYVGeDhCeYvYqBxaTJtBq 9Iw1YSObqN2mCy5PGGbmOZDVKr3640-14-36R5 8:17:15 Pt's states his doctor quit prescribing [...] something and he won't prescribe me any." 97323-0Ktjlkbnpn department Triage jtioHM7522-77-49O09:19:10[facility] Triage noteTXT1.2.840.509013.1.13.104.2.7.2.7 95947|3021503651MMCybybpwfp for patient zhcj84649-6Eghhxlglr department NoteLNNARRATIVEFormatted C-CDA narrative [id number] Fief RNUT57 Williams [id number] XKOPXZTFNNFOHXGELLCC0165-35-42U10:19:1 01.2.840.741702.1.72.3.15|1.201143 50.1.13.104.2.7.2.727879_[id number] Liset Blancas VINI [facility] 2023-09-28 18:09:00 mXigIdwMjY1cpeSLA8/VtIUTycwTDS+iUAI7YH XKDgX9N+Z3VIBKC8c7zLMRjFmh4014-68-89I4 8:09:00 Images from the original note were not included.Patient never seen by Ellen patel was [facility]:Dyana Jorgensen MD09/28/231922SchDyana silva MD09/28/231922 05083-4Uosrikldu Emergency department MaqmHY4927-57-41M62:23:40Physician Emergency department NoteTXT1.2.840.834718.1.13.104.2.7.2.7 04191|5045164222SRFgrzbwfxi for patient siki02804-2Vzjedibxl department NoteLNNARRATIVEFormatted C-CDA narrative text[address]Vn[id number] YBTTNVMIDGPUCNNJZMLO3651-04-00Z21:23:4 01.2.840.546883.1.72.3.15|1.201143 50.1.13.104.2.7.2.727879_[id number] [facility] 2022-06-03 18:30:00 699l6fPJEc/DVKIfhdT7b1pJQ1oU5upgLuEo7w Xm+ehFXvaEjXyobtx+b5R48jCc6393-05-26C1 8:30:00 Gave pt appointments, provided wound care, paper prescriptions were delivered via doctor bedside, taught about s/s of infection, removed IV, pt left with belongings via transport, no distress noted.Gave pt 3 weeks of wound care supplies.Pt left via [employer]. shine worker provided instructions on how to request a [employer]ft.No needs at this time. [id number] Note1.2.840.929963.1.13.43.2.7.4.18229 0.82188436-51-59S29:18:43Flowsheet NoteTXT1.2.840.961851.1.13.43.2.7.2.72 7879|8041267461IVZqsjfdexi for patient lusw98831-1EbalPX744779739Zyhwupi BahamHHSHarris Health Ccumq[address] [place], [place] [address]ObppRombudxCkvwlkqAOUR8098239750BQPM74 23-06-02T19:18:431.2.840.027554.1.72.3 .15|1.2.840.357690.1.13.43.2.7.2.55615 9_[id number] Belkis [facility] 2022-06-03 18:30:00 3ETafb7iKTJiCo/6c7jpux6j+Hl9v+PNAXSJwW 65QNKeRQfR4DQjBZo7xrgQF87E5195-69-28T7 8:30:00 Problem: Hospital Acquired Venous Thromboembolism (VTE)Goal: [...] deep vein thrombosis or pressure ulcers.Outcome: Resolved 2525503Fqmr of Care1.2.840.207974.1.13.43.2.7.4.83203 0.22025368-15-23Z53:47:16Plan of CareTXT1.2.840.068043.1.13.43.2.7.2.72 7879|0897025937HKVlzfdvvjz for patient aqhj63509-5EgvkVRFVORuinulPilgrim Psychiatric Center2525 [facility] HospitalSeitJaynuelIewsordBGAZ6701296396EWVK56 23-06-02T18:47:161.2.840.115709.1.72.3 .15|1.2.840.488416.1.13.43.2.7.2.80399 9_[id number] [facility] 2022-06-03 17:38:37 8533WXFnAi1g5eN99ZtHt9YhvI02KZOG+fEaUa 0miP++TTiR0o8HgwiEMe4cSRhT9245-93-18C9 7:38:37 06/03/22 1737 Intervention Financial Needs Other (Comment)([facility] SELF-PAY/SELF-PAY SCREENED) Referral Data Referral Reason [...] wound care supplies.Glory JORDANN ACM-RNEC Nurse Case ManagerW[facility]Pat[facility]# [phone] [id number] Note1.2.840.698607.1.13.43.2.7.4.68401 0.43101390-72-49K46:49:49Flowsheet NoteTXT1.2.840.717314.1.13.43.2.7.2.72 7879|5956819583GCQogxrovhi for patient luok19889-9BnbxDG345818074Ixiighwoz D Real RNOhio Valley Surgical Hospital[address] [place], [place] [address]VwrwAfvwjqdGzsyfnrBZQZ5645411232SGXM23 23-06-02T17:49:491.2.840.931158.1.72.3 .15|1.2.840.837801.1.13.43.2.7.2.00707 9_[id number] Glory Tran [facility] 2022-06-03 04:38:15 6O8IWMgLeGzgnWfkOUhuCA1m9n6z0F1vp41ltU rdbr6ofNZARYTpkuz72oFu4/YI4686-90-43P2 4:38:15 Problem: Hospital Acquired Venous Thromboembolism (VTE)Goal: [...] to perform desired activities.Outcome: Met This Shift 3506248Ncao of Care1.2.840.147749.1.13.43.2.7.4.13543 0.30762841-53-22R08:38:19Plan of CareTXT1.2.840.756512.1.13.43.2.7.2.72 7879|7332594872TCOnvspyavl for patient nscd22082-0YjcbFO877703700Vwgwbmr OlveraHHSHarris Health Jzferz[address] [place], [place] [address]ZsjvRljyrrkGrkfjvyRWFL5589254812SACJ99 23-06-02T04:38:191.2.840.820228.1.72.3 .15|1.2.840.501056.1.13.43.2.7.2.12394 9_[id number] Kristine Melgoza [facility] 2022-06-02 19:47:16 CDozpmAfOAhLHekEGulPqkdh4L8QL15hUQFihg gcOUDHNiFyKwZuu13NwAedu+676607-59-35D7 9:47:16 Problem: Hospital Acquired Venous Thromboembolism (VTE)Goal: [...] thrombosis or pressure ulcers.Outcome: Met This Shift 8215636Zquf of Care1.2.840.488302.1.13.43.2.7.4.57467 0.91742742-87-76O60:47:18Plan of CareTXT1.2.840.111738.1.13.43.2.7.2.72 7879|3866073217WRGeedjcjgz for patient ownm46735-5QcdwILPRSXlwkhw Health Zqijlo8948 [facility]'s HospitalTzoqYsjepiqNtwbyniFYLN9414681769HZTB57 23-06-019:47:181.2.840.885379.1.72.3 .15|1.2.840.582916.1.13.43.2.7.2.09764 9_[id number] [facility] 2022-06-02 04:02:37 FYAuqnlDBvwheyUEr3xQfpWcsbiDSDQWsZQZqi lV17cs1wMYc7s/OjXK7TJSBETR4535-43-71I5 4:02:37 Problem: Hospital Acquired Venous Thromboembolism (VTE)Goal: [...] to perform desired activities.Outcome: Met This Shift 6927910Kavn of Care1.2.840.900378.1.13.43.2.7.4.82246 0.30580995-21-66X78:02:40Plan of CareTXT1.2.840.423336.1.13.43.2.7.2.72 7879|6286063195TCUnbigsgfu for patient znns59682-9TrhpOSJUEPqewpc Health Fqosao0563 [facility] HospitalGyufBdouvvwIbkjvshUAZI2687002793SOXT27 23-06-01T04:02:401.2.840.974108.1.72.3 .15|1.2.840.767691.1.13.43.2.7.2.04143 9_[id number] [facility] 2022-06-01 16:07:00 PjGxqhY5z1b4SFmPzc6qYzbtbGyvZq9afgB6YZ o3nkbdyabK8O2XB29JhoIfW/mD2960-73-60P7 6:07:00 Problem: Hospital Acquired Venous Thromboembolism (VTE)Goal: [...] Be Safe And ComfortableOutcome: Met This Shift 1214895Qsgb of Care1.2.840.666247.1.13.43.2.7.4.82971 0.25634855-87-13L47:07:12Plan of CareTXT1.2.840.619108.1.13.43.2.7.2.72 7879|8685166039VKHbaejyekl for patient ftbs68429-0PetrLSNJXTmqaxj Health Tyzves8399 [facility] HospitalIpblPppbowvUylihstPUZU6701456576QKNH16 23-05-316:07:121.2.840.237823.1.72.3 .15|1.2.840.385974.1.13.43.2.7.2.04945 9_[id number] [facility] 2022-06-01 16:04:25 R9Bi4uVpmoB5rQmhv+VDPv+x5VJE+qRGw5K/GL CebLwTAHaB0fyDBj0s3nuUYa5G0596-63-82Y6 6:04:25 06/01/22 1602 Intervention Coordination of Care Multidisciplinary team(S/p I+D of 4x abscesses on 05/25 and 05/31.infection) Disease Management Meets criteria for Inpatient Medical Necessity Screening Concurrent review([id number]) Oumou Villa MSN, BSN, [facility]-RNClinical Nurse Case [phone] Note1.2.840.476680.1.13.43.2.7.4.47983 0.11362723-93-60J03:04:51Flowsheet NoteTXT1.2.840.451004.1.13.43.2.7.2.72 7879|1640068172MGXaaxpbjlk for patient iyoe35569-3VhweIJ902141434Frknkgz Okolie RNOhio Valley Surgical Hospital[address] [place], [place] [address]GoonEojddcmQcpqdrrHMIZ9879645314BTDG41 23-05-31T16:04:511.2.840.186784.1.72.3 .15|1.2.840.014932.1.13.43.2.7.2.59813 9_[id number] Oumou Villa RN [facility] 2022-06-01 05:30:00 oxlrUeCDaBCvXb94nIGpcA5SMrNXs7LR3E3boq HOxwMpqMYLQUMCEw1lrM8n0qp01246-61-30I9 5:30:00 Problem: Falls / InjuryGoal: Absence of [...] new arrhythmias (if applicable).Outcome: Met This Shift 1198909Ccyw of Care1.2.840.154729.1.13.43.2.7.4.11425 0.97064028-40-42F42:50:41Plan of CareTXT1.2.840.823901.1.13.43.2.7.2.72 7879|5738855471DSZllvxmosz for patient jwyk49166-5BqfvBX882409050Sxywcq Osondu RNOhio [facility] Surgical Hospital[address] [place], [place] [address]PfipPijdctvXnumieiDVCG1852045641ZSQR87 23-05-31T07:50:411.2.840.085252.1.72.3 .15|1.2.840.924433.1.13.43.2.7.2.44022 9_[id number] Jessika Connolly RN [facility] 2022-05-31 16:17:37 o0FYRMmeODDRa5Xh/Ff2ItG5a63EYwZOvABquM 7lX0zLl+BkSmdKqC4J55nYnsFm1539-83-66V5 6:17:37 Problem: Hospital Acquired Venous Thromboembolism (VTE)Goal: [...] swelling, drainage, and pain.Outcome: Met This Shift 6799993Jiui of Care1.2.840.735615.1.13.43.2.7.4.21678 0.33185623-58-12I68:17:53Plan of CareTXT1.2.840.649534.1.13.43.2.7.2.72 7879|6797073620TLUvvwrkxkj for patient odjk48805-4VxkqLQZIQVpdvgn Health Xvbvxg2070 [facility] HospitalGwgfUowyboqIueqluxXTNN0534231919EIVC51 23-05-30T16:17:531.2.840.852707.1.72.3 .15|1.2.840.188650.1.13.43.2.7.2.06127 9_[id number] [facility] 2022-05-31 10:15:18 +PIIkyTmWKCNFktjWxc1RndV/2Lp6eluiUmNFs LLfpV3hs1rfP7687BzZZaf0s9b4503-67-04C1 0:15:18 Nutrition Screen by Esl Tutor, RegisteredNutrition Screen re: LOS x 7 days.Tej [...] and nutrition related labsAvailable/Consult PRNSignature:Kelly Boo DTR [phone]: [phone] see Dietitian Note(s) in Plan of Care. 8334612Xwxe of Care1.2.840.686185.1.13.43.2.7.4.76367 0.28662420-54-47X91:15:12Plan of CareTXT1.2.840.037609.1.13.43.2.7.2.72 7879|7660680921HVQpfpsrkwo for patient zksx99161-3RktiCDHyjzhaloiLttbhcaxiNUR [facility] Wuzjoy7705 Natalie BushRjctIlngitdFfbcfmhWRPZ3701654958DOEP16 23-05-30T12:15:121.2.840.840345.1.72.3 .15|1.2.840.156257.1.13.43.2.7.2.37579 9_[id number] [facility] 2022-05-31 06:47:50 nD6Ok7d8yQJd6K4yPG7RRFdLjvRxxrlOQdt5Y/ hnRuspUjMcelGEjnYLn6OSzQ7L2731-64-21R0 6:47:50 Problem: Hospital Acquired Venous Thromboembolism (VTE)Goal: [...] to perform desired activities.Outcome: Met This Shift 2983528Dvwh of Care1.2.840.568818.1.13.43.2.7.4.66978 0.20369195-96-36Q85:47:56Plan of CareTXT1.2.840.129638.1.13.43.2.7.2.72 7879|0642579974NALilxqmuaq for patient gjvs35186-9FkgxNZ593097360Qxmor Anyamene RNOhio Valley Surgical Hospital[address] [place], [place] [address]MhwuVhesrduMyyykjqSMHO8410965128RPAP85 23-05-30T06:47:561.2.840.490101.1.72.3 .15|1.2.840.906319.1.13.43.2.7.2.74923 9_[id number] Charline Ren RN [facility] 2022-05-30 16:05:44 DkUzGQg4dxsi2sW+Da4dCgJtPe88Znrb7/0K3J kVa2YL3WRx/lq9/kt/qfsDFQor0464-92-54H0 6:05:44 Initial visit, pt and one family member present, encouragement and spiritual support provided which resulted in hope being expressed. 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 [place] Patient's significant other Patient's Significant Other Designation Immediate family Spiritual Resources Spiritual Resources Awareness of the Holy;Hope [place] Setter Assessment (Emotional Needs) Emotional Needs Grief/mourning [place] Setter Assessment (Spiritual Needs) Patient Expressing Grief/mourning;Helplessness Patient Exploring Brigitte and values [place] Setter Interventions Emotional Needs Non-anxious, non-judgmental presence provided;Emotions explored;Emotions validated;Hope encouraged;Reflective listening provided Spiritual Needs Grief/mourning explored, encouraged and/or enabled;Brigitte and or beliefs explored and/or validated;Pastoral counseling provided Chaplain Haywoode3-2480 1679896Yoizffhdh Note1.2.840.250242.1.13.43.2.7.4.40984 0.18703540-81-51Q90:06:41Flowsheet NoteTXT1.2.840.330105.1.13.43.2.7.2.72 7879|9190275131NEBomdhakvu for patient iwos13743-2VidnAG78829761Bitxmtt Joy Knott-JacksonOhio Valley Surgical Hospital2525 [facility] HospitalLbcjEtbqvwlWpcvdmzNULD7778085335IQHX13 23-05-29T16:06:411.2.840.775615.1.72.3 .15|1.2.840.646795.1.13.43.2.7.2.40260 9_[id number] Shawn[facility]University [facility] 20[facility]-30 15:46:11 Tkw/mXCKf0dCON7kFNxzxrtxSib3o3FbMhZR8x Ff9vZcxLr5PvRilhwdK7HUdzwJ9738-84-69I3 5:46:11 Problem: Hospital Acquired Venous Thromboembolism (VTE)Goal: [...] to perform desired activities.Outcome: Met This Shift 7210531Wgco of Care1.2.840.199556.1.13.43.2.7.4.63142 0.10926648-58-57V58:46:15Plan of CareTXT1.2.840.664782.1.13.43.2.7.2.72 7879|6687765713XWPxfkfybjv for patient dpwl30631-4RvceRX077473561Lbsfswx [facility]2525 [facility] HospitalKfgkWlsdjszVdhikkhDVRE4642740917BHTR16 23-05-29T15:46:151.2.840.706104.1.72.3 .15|1.2.840.901770.1.13.43.2.7.2.18637 9_[id number] Edward Velasco [facility] 2022-05-30 05:30:02 8Dek/lYNl8hU340cB0luy70Gc14rNWku7nUBre eCyQnFhxNipMPkQRFOyO+OliH46980-77-10E8 5:30:02 Problem: Hospital Acquired Venous Thromboembolism (VTE)Goal: [...] to perform desired activities.Outcome: Met This Shift 9194476Tsas of Care1.2.840.571606.1.13.43.2.7.4.98962 0.12508483-46-23Z63:30:08Plan of CareTXT1.2.840.309904.1.13.43.2.7.2.72 7879|3304220102EYYlfwsgxaw for patient ibnt97367-3RmkqMHDMGHavpoc Health Hhnrpk4603 [facility]'s HospitalMsoeKjuszlxMzdnfkgUWLM7149185012LFDT62 23-05-29T05:30:081.2.840.621013.1.72.3 .15|1.2.840.773499.1.13.43.2.7.2.51705 9_[id number] [facility] 2022-05-29 18:34:41 HYmmlkAjXEwocB/eYloIwc6VGmd/enEVGTG9IC s4pqeb1nJhOjAexgeIiPqQW+JC7940-44-39S6 8:34:41 Problem: Hospital Acquired Venous Thromboembolism (VTE)Goal: [...] to perform desired activities.Outcome: Met This Shift 6342480Mzzx of Care1.2.840.328752.1.13.43.2.7.4.28881 0.94700312-41-97J28:34:46Plan of CareTXT1.2.840.794510.1.13.43.2.7.2.72 7879|6142460758QYNrsxsnltq for patient dzec62832-8JptlTG38062479Zkfatazb Savanah Agosto RNOhio Valley Surgical Hospital2525 [facility] HospitalXnscProbvonUjdhfzsYBNR1401288952TOSY74 23-05-28T18:34:461.2.840.293802.1.72.3 .15|1.2.840.860774.1.13.43.2.7.2.03488 9_[id number] Octavia Agosto [facility] 2022-05-29 05:08:04 WDoYapDt2/uIikkMxrlH95qARgGqgNThba3/51 UjabV3+wuS1+BP8nEnR8tUXpvP9714-44-91D3 5:08:04 Problem: Hospital Acquired Venous Thromboembolism (VTE)Goal: [...] wounds, or positive cultures.Outcome: Met This Shift 9537331Hfcs of Care1.2.840.042015.1.13.43.2.7.4.91294 0.27379556-61-72F23:08:11Plan of CareTXT1.2.840.401712.1.13.43.2.7.2.72 7879|4308180502WRBmddfvyou for patient qhuz37231-8BlsaRM01946184Lozbz Baby VINIOhio Valley Surgical Hospital2525 [facility] HospitalAyruFaiexfiLyzgukcYNBV4002597003UGLV51 23-05-28T05:08:111.2.840.654756.1.72.3 .15|1.2.840.150532.1.13.43.2.7.2.45450 9_[id number] Tyron Enriquez RN [facility] 2022-05-28 18:31:40 edN5unu0CptIqlb9cD3YHAlH/K9J3Nyygj7bpb c3/yDx27Mk/+SJ/lyMMr2nTrRu2911-75-48N6 8:31:40 Problem: Hospital Acquired Venous Thromboembolism (VTE)Goal: [...] Agosto RNOutcome: Met This Shift05/28/20221640 by Octavia gAosto RNOutcome: Met This ShiftGoal: Identify Support Systems05/28/20221830 [...] by Octavia Agosto RNOutcome: Met This Shift 2552826Qvsp of Care1.2.840.997810.1.13.43.2.7.4.11728 0.40577170-10-39P27:31:43Plan of CareTXT1.2.840.579071.1.13.43.2.7.2.72 7879|2488152610AYZlpfjyfwh for patient gkxf88862-3KnhwWVOLJVkvproPilgrim Psychiatric Center2525 [facility]'s HospitalRmlbGeuzvuwNejslytLGLZ3438330000GOBV80 23-05-27T18:31:431.2.840.500237.1.72.3 .15|1.2.840.373335.1.13.43.2.7.2.77208 9_[id number] [facility] 2022-05-28 16:41:40 wExyFIrd/SY7/8ectScWk1v4UeqsQ3+FsHqD2C TX6du5hjIam+W9D7OpRP+dDBPn9705-45-95L7 6:41:40 Problem: Hospital Acquired Venous Thromboembolism (VTE)Goal: [...] to perform desired activities.Outcome: Met This Shift 7269690Zeld of Care1.2.840.430514.1.13.43.2.7.4.09243 0.85136532-84-34W34:41:44Plan of CareTXT1.2.840.995135.1.13.43.2.7.2.72 7879|0310877272ZDVwuwmokeo for patient dqis46354-4GuksHGQXJUojncz Health Tyqomr9332 [facility]'s HospitalOoxgBqzszgfFwmqubxTZYP3737461025CYZR71 23-05-276:41:441.2.840.826170.1.72.3 .15|1.2.840.325939.1.13.43.2.7.2.12341 9_[id number] [facility] 2022-05-28 05:28:45 ue1o/tdo63cD6zDdaU5JdXz02F2QRnszoYXQcy f3vnRjE2a6mWjWBj9CuFbh82VW8495-57-21Z2 5:28:45 Problem: Hospital Acquired Venous Thromboembolism (VTE)Goal: [...] wounds, or positive cultures.Outcome: Met This Shift 5074726Cufr of Care1.2.840.557483.1.13.43.2.7.4.64975 0.32544018-46-50E63:28:51Plan of CareTXT1.2.840.248205.1.13.43.2.7.2.72 7879|2380973326UKWzdibpgqi for patient ohig40568-4UvbtZOFRYDcsugb Health Qnvxsz9700 [facility] HospitalYsetWbwrxwtUlgzasaNIMQ5494297796MTCX35 23-05-27T05:28:511.2.840.558628.1.72.3 .15|1.2.840.589041.1.13.43.2.7.2.68256 9_[id number] [facility] 2022-05-27 14:32:23 5/6Dww5govlOtGpvpmD6suWz8MpnFqS90UkF8X kapdZFEv6EPgxP3saUGoWKB0RI3050-12-49R6 4:32:23 Problem: Falls / InjuryGoal: Absence of [...] to perform desired activities.Outcome: Met This Shift 1853510Ilwz of Care1.2.840.404907.1.13.43.2.7.4.14022 0.62221712-10-20J81:32:30Plan of CareTXT1.2.840.637175.1.13.43.2.7.2.72 7879|6693747395FXRmydypfde for patient fvrk89204-7AjriUL419017716Xjwomte Nikita MARTINIOhio Valley Surgical Hospital2525 [facility] HospitalBtooYauacgzVvkhiuzBPFQ1110372360NWNW11 23-05-26T14:32:301.2.840.498485.1.72.3 .15|1.2.840.954872.1.13.43.2.7.2.99017 9_[id number] Kavita Shelton RN [facility] 2022-05-27 05:52:57 8vxM+RGL9WglF3Je8kgTKZ3YJOkANCvUvA0d+x JZNs4q3Q+0t3PZTFqvwdmPR2yE8128-69-74E4 5:52:57 Problem: Hospital Acquired Venous Thromboembolism (VTE)Goal: [...] wounds, or positive cultures.Outcome: Met This Shift 7136145Kyrh of Care1.2.840.631768.1.13.43.2.7.4.37021 0.46637719-71-94R57:53:04Plan of CareTXT1.2.840.359653.1.13.43.2.7.2.72 7879|3618678349FMVrbfhhmzg for patient lqxs67477-9CzdjFBGKNHgipwxPilgrim Psychiatric Center2525 [facility] HospitalCdokFdpaafcWytxivaBGQJ4143952391WHVR47 23-05-26T05:53:041.2.840.850039.1.72.3 .15|1.2.840.501321.1.13.43.2.7.2.29405 9_[id number] [facility] 2022-05-26 15:14:40 tEwraGujEP9mBr6enwPmphYfeOUh5hjK9SDKQ3 L8WMoBYP4tnj+qMyRTEdFoK0om1372-77-77T7 5:14:40 Problem: Hospital Acquired Venous Thromboembolism (VTE)Goal: [...] done this shift. Patient verbalized understanding. Appropriate translator and interpreter used. Problem: Falls / InjuryGoal: Absence [...] Subjective And Objective Responses.Outcome: Met This Shift [id number] of Care1.2.840.067266.1.13.43.2.7.4.02836 0.99232068-99-01V88:14:43Plan of CareTXT1.2.840.384940.1.13.43.2.7.2.72 7879|[id number] for patient [id number] M Bhakta RNOhio Valley Surgical Hospital2525 [facility] Hospit[id number] 23-05-25T15:14:431.2.840.240364.1.72.3 .15|1.2.840.955462.1.13.43.2.7.2.46507 9_[id number] No Montoya RN [facility] 2022-05-26 11:00:00 RfJ59zevHNwL7Ft6yNUhoAnPLznE4i0rjPrCLH jn4GCZA4D1SmkrzFkPupJ0eLol3185-89-23V3 1:00:00 05/26/22 1100 Intervention Education on freedom to choose and issued vendor list Yes Transportation Referrals Other Transportation medical necessity form N/A Current Support System Immediate family Coordination of Care Multidisciplinary team;Outside facilities Per consult to assist with drug treatment placement, SW connected with Pt to discuss options.ROSSY had contacted both [facility] [phone] and [facility] [phone] per Pt's request and was informed there were no beds available. [facility] only has available beds in locations outside [place] like [facility] and [place]. ROSSY suggested other treatment centers including [facility] [phone] who stated they have available beds and Pt is free to come to their facility in [place], ask for Layo with Intake Department. ROSSY also provided [facility] as an option. Pt declined both options, stated he will talk with his family and may have to choose one of the [facility] locations outside of [place].Pt will inform when decision is reached.Hayden Gurrola [employer] [facility] InstituteOffice: [phone]: [phone] [id number] Note1.2.840.357335.1.13.43.2.7.4.82577 0.30579603-49-31M13:32:49Flowsheet NoteTXT1.2.840.872434.1.13.43.2.7.2.72 7879|[id number] for patient [id number] County Memorial Hospital25[address] [facility] Hospit[id number] 23-05-25T11:32:491.2.840.431321.1.72.3 .15|1.2.840.594774.1.13.43.2.7.2.32009 9_[id number] [facility] 2022-05-25 14:25:36 WeMqD73cqmL6s2LawKZH1gUmLbbTOou2sFb7ae ed7WcYEi1zMpk6NzuBuK8qNJkl8792-61-92T9 4:25:36 Problem: Hospital Acquired Venous Thromboembolism (VTE)Goal: [...] Subjective And Objective Responses.Outcome: Met This Shift 0003802Cqfr of Care1.2.840.638183.1.13.43.2.7.4.74963 0.27295724-41-39E08:25:49Plan of CareTXT1.2.840.156913.1.13.43.2.7.2.72 7879|1603776883SWQgyaaepoo for patient [id number] [facility]25[address] [facility] Hospit[id number] 23-05-24T14:25:491.2.840.192541.1.72.3 .15|1.2.840.191196.1.13.43.2.7.2.42372 9_[id number] [facility] 2022-05-25 10:28:37 ULiCrPsH+lsob7pY/5Ydpwf8geLYpzCooRnAUZ cz3aZ4YPv+3jnrxdHxGmFCkoIX9114-23-94U5 0:28:37 THIS IS A STUDENT NOTEInfectious Diseases [...] AFB - Plates have been sent to [facility] for identification and sensitivitiesRecommendations: - After careful consideration of the literature we recommend the following to cover for M chelonae, M fortuitum, and M abscessus: - Amikacin (per pharmacist dosing) - Tigecycline (100mg load followed by 50 BID, can step down to 50 daily if poorly tolerated) - Azithromycin (500 mg daily)- We will jesu antibiotics once ID is received from [facility]- Follow all cultures to completionThank you for this interesting consult. We will continue to followI discussed the case with infectious diseases attending, Dr. Obando.Venu RamosMedical Student, [address] History Obtained From: patient, electronic medical [...] homeless. He has not travelled outside of [place] recently and does not have any sick [...] intact.Data: All labs, images, and data reviewed. [id number] Note1.2.840.666478.1.13.43.2.7.4.78842 0.11227587-94-37T70:34:01Student NoteTXT1.2.840.693791.1.13.43.2.7.2.72 7879|[id number] for patient imlg75613-5HnmcZVChzfscwd MedicineInternal MedicineOhio Valley Surgical Hospital[address] [place], [place] [address][id number] 23-05-24T17:34:011.2.840.261782.1.72.3 .15|1.2.840.936626.1.13.43.2.7.2.43382 9_[id number] Internal Medicine [facility] 2022-05-25 03:18:34 CXYMdNm/aamSbemBEF8cI7LmuBNHNQjPLWq6ti 3OSlBaN63RhdkNtBOZZwtZcOoP4976-00-95T5 3:18:34 Problem: Hospital Acquired Venous Thromboembolism (VTE)Goal: [...] Subjective And Objective Responses.Outcome: Met This Shift [id number] of Care1.2.840.635627.1.13.43.2.7.4.18998 0.12927283-62-64G54:18:38Plan of CareTXT1.2.840.486775.1.13.43.2.7.2.72 7879|1756416640WNFscoselmi for patient gsdx77746-6FayjGZRZIIeyfat Health Sasykd1564 Natalie Bu[id number] 23-05-24T03:18:381.2.840.294766.1.72.3 .15|1.2.840.353880.1.13.43.2.7.2.58962 9_[id number] [facility] 2022-05-24 18:27:10 w7v8e/UAsGS3Sj7scdnIS7dyKsPuDkRWZDOHBL I2WK4fBbgNk0treOyKiz68oYSx6901-46-88R6 8:27:10 Problem: Hospital Acquired Venous Thromboembolism (VTE)Goal: [...] Subjective And Objective Responses.Outcome: Met This Shift [id number] of Care1.2.840.697371.1.13.43.2.7.4.63317 0.75470731-10-51S18:27:20Plan of CareTXT1.2.840.930727.1.13.43.2.7.2.72 7879|5031347413VTZpqtueowx for patient ezvo80086-4WmksITHYSVygkxp Health Fldvvc0276 [facility]'s HospitalNpis[id number] 23-05-23T18:27:201.2.840.102000.1.72.3 .15|1.2.840.964433.1.13.43.2.7.2.29384 9_[id number] [facility] 2022-05-24 11:04:15 fFRKnNLA8JrnqWrVzjgk3OCbsodctr8M+zlGDP kkVBjF5P21jfSk5pgOBRkv4l/x5387-11-17W3 1:04:15 Case management note:Chart reviewed for medical necessity and hospitalization 05/24/22 1103 Intervention Disease Management Meets criteria for Inpatient Medical Necessity Screening Concurrent review([id number]) Patient meet inpatient criteriaPlease place order Admit to InpatientThank Samanta diggs MSN, ACM-RNClinical Nurse Case ManagerWright-Patterson [facility] | [address] | [place], [place] [address]D: [phone] |F: [phone]| [id number] Note1.2.840.279468.1.13.43.2.7.4.11818 0.61494130-62-53N23:04:38Flowsheet NoteTXT1.2.840.509088.1.13.43.2.7.2.72 7879|[id number] for patient msid23190-4QiiqFQ63767456Esew S Mo RNOhio Valley Surgical Hospital2525 [facility]'s HospitalReuvSivgthxChmusewASOJ9044052651FZCY05 23-05-231:04:381.2.840.781855.1.72.3 .15|1.2.840.958755.1.13.43.2.7.2.94803 9_[id number] Samanta Hassan RN [facility] 2022-05-24 08:50:00 bkRcrdzQPZnDqftc7yF1xCv/+nj3+DCF+DQfzX 8zdAHu+58ALcbLQ6JGb6a/AaTP9324-48-53P4 8:50:00 05/24/22 0850 Charting Type Charting Type Initial Patient Status Current Status Observation New Status Recommendation Observation Patient Information Source of Information Patient;Other (Comment) County [place]idence [place] Immigration Status: [place] Citizen Behavior Alert;Oriented [...] Family Information Patient Marital Status Single Primary Proofer Black [place] White Lydia Guadalupe (father) [phone] Income Information Income Source Unemployed Financial Resources Funding Source/Insurance Status Self-Pay Transportation Transportation Needs Private/family transportation Legal Information Legal Concerns No unmet needs Name, surrogate decision maker Lydia Guadalupe (father) [phone] Decision maker contact # Lydia Guadalupe (father) [phone] Mental Health Mental Health Concerns No past / current concerns Acuity Level Medical Acuity 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 Pt did not remember the address of sister's house.Family will provide discharge transportation.Healthcare Agent: Lydia Guadalupe (father) [phone].Hayden Gurrola Work Tilting Head Band [facility]yer [facility] InstituteOffice: [address]Agnxn: [phone] Note1.2.840.902672.1.13.43.2.7.4.60912 0.83469618-77-96X33:59:01Flowsheet NoteTXT1.2.840.167054.1.13.43.2.7.2.72 7879|[id number] for patient mdfq98396-9KgtjEEGXPMnkiwm Health Fgzzni5908 [facility]'s HospitalZofwEdqxqstPsolgsxMVQT0427141484FYVJ21 23-05-23T10:59:011.2.840.837446.1.72.3 .15|1.2.840.433025.1.13.43.2.7.2.12032 9_[id number] [facility] 2022-05-24 06:45:53 W+vsL+Rgxi7Mykfk3OBDpDr2oMnrRxATsYse0s DYONrWi7SG7r8dnHPsuG+DjmY00104-38-14G6 6:45:53 Problem: Falls / InjuryGoal: Absence of [...] wounds, or positive cultures.Outcome: Met This Shift [id number] of Care1.2.840.944512.1.13.43.2.7.4.99738 0.62239825-08-17N96:46:15Plan of CareTXT1.2.840.561155.1.13.43.2.7.2.72 7879|[id number] for patient yahz04229-1NzikIDLFKFmrlyb Health Juvhbb3286 [facility]'s HospitalGnztGkdtdrvFtrgjsxZLLM9603096137KHAL36 23-05-2306:46:151.2.840.260020.1.72.3 .15|1.2.840.958861.1.13.43.2.7.2.73159 9_[id number] [facility] 2022-05-24 04:17:46 hNIqj/dX/OvoEVxASHZLGgsFdL6vUGBs6IMB8y CxR0FFHHGIBG4sDQH4K53yeUAO0962-17-13K7 4:17:46 Patient transferred to . Patient refused wheelchair for transfer. Report given to Hanh MARTINI. Patient AAOx4. Ambulates independently. Respirations clear and unlabored. Skin appropriate to ethnicity. Skin intact with abscesses to the right and left forearms. 68682-1Jjmsghfiw department HbuhHX5784-68-94Z27:19:07[facility] department NoteTXT1.2.840.667962.1.13.43.2.7.2.72 7879|[id number] for patient opdb80911-5Pruvqofsm department OdjkPW416021445ClucLewis County General Hospital2525 [facility]'s HospitalUbwzPyvhxwbDgqtrxbXTIF4816780177EYCP12 23-05-2304:19:071.2.840.078403.1.72.3 .15|1.2.840.377985.1.13.43.2.7.2.09804 9_[id number] Lupillo [facility] 2022-05-24 02:00:00 W/GggPYTNzcop6mLRKHJ6IZYthlDnv1agaakP3 4XfOOwqdb5nvoXIiinbU5Yi+DR3567-32-04R4 2:00:00 Pt resting in room quietly, respirations even nonlabored, no acute distress. [address]806-9Kteggpmpo[address] [place] [address] CmjjZH6240-82-85C85:07:26[facility] department NoteTXT1.2.840.259086.1.13.43.2.7.2.72 7879|[id number] for patient uvhu28439-2Iftvxppjf department IhmtOU517478699Pbtlz [facility] [place], [place] [address]W[id number] 23-05-2305:07:261.2.840.240105.1.72.3 .15|1.2.840.705314.1.13.43.2.7.2.04820 9_[id number] Cynthia [facility] 2022-05-23 23:58:21 mvOEvVji4QVFKt//VXpBwUbYMPRnqcuP/ohzIR QhjrgX7d34Hg+rZSxOpMJ/aiCc1215-92-57J1 3:58:21 Pt brought meal tray [place] [address]-4Fwamloamn department RaufII8533-03-08G14:58:35[facility] department NoteTXT1.2.840.761696.1.13.43.2.7.2.72 7879|[id number] for patient borr16480-4Wqwklpzvs department [facility]2525 [facility] HospitalUmcpSbaymglReyacomUIGI7219422879UBMW40 23-05-223:58:351.2.840.172173.1.72.3 .15|1.2.840.803277.1.13.43.2.7.2.08014 9_[id number] [facility] 2022-05-23 22:47:00 gCGxsU41NvHORvarJse+eOHI3t2SbQ7fgeQOlK Q6WA0+UD/2oa0KPhQ57FPM3x322471-49-33W3 2:47:00 Patient Tej Guadalupe, 37 y.o. male, [...] extremities spontaneously. Patient pending medical bed admission. [address] BlqmZA9790-33-92T01:20:22[facility] NoteTXT1.2.840.365823.1.13.43.2.7.2.72 7879|[id number] for patient xsmf85398-2Qdkdezmfp[address] [place], [place] [address]TXTX7705477054USUS20 23-05-2301:20:221.2.840.515931.1.72.3 .15|1.2.840.006933.1.13.43.2.7.2.83466 9_[id number] [facility] 2022-05-23 22:11:16 XV1Y8u7ZMoknBKh2dDVBd0vv8rjC9mDYWPCnkf K6nrVYG6UkUQV5isOAGQKYBWHN9464-42-45S8 2:11:16 Pt ambulatory to B4 for admission with triage nurse. Pt A&OX4, respirations even nonlabored, no acute distrress/no airway distress. [address]97-2Baokyeada[address] [place] [address] BicnBQ7366-59-37D61:11:43[facility] department NoteTXT1.2.840.118157.1.13.43.2.7.2.72 7879|[id number] for patient ygga69776-8Klbxwjpup[address] [place], [place] [address]TXTX7705477054USUS20 23-05-22T22:11:431.2.840.115643.1.72.3 .15|1.2.840.108960.1.13.43.2.7.2.47226 9_[id number] [facility] 2022-05-23 13:29:36 WGMtL/OYiXNnt3+ST97phQtJogP5SaFhJ7BTE8 DwO9oTmm5Gaam94S+GbjGHPuK08491-59-43P0 3:29:36 Images from the original note were [...] a month" per pt. Seen at [facility] on 05/19/2022 for same issue. I&D [...] History provided by: Medical records and patientLanguage translator and interpreter used: No AbscessLocation: Shoulder/armShoulder/arm abscess location: [...] User Index[AA] Alissa Avitia MD[JU] Chicho Painter, ResidentMD[MR] Orlando Donald PA MDMNumber of Diagnoses [...] Continue to monitor in the emergency departmentNAVEEN Lane-Veterans Health Administrationncy Medicine PA FellowProvider #[id number]/222:04 PM Clinical Impression 1. Cutaneous abscess of [...] F Reyes MD August 01, 2022 11:44 OM31612-5Thjvniews Emergency department UzhxKJ664308Oeygjid, Stephen A1.2.840.828620.1.13.43.2.7.2.448546Gv tzwrsMixrzuzEXA0887-98-30L14:46:02Phys ician Emergency department NoteTXT1.2.840.944377.1.13.43.2.7.2.72 7879|[id number] for patient rscl57714-4Znwvvvrez department NoteLNOhio Valley Surgical Hospital2525 [facility]'s HospitalDlltWxxpwqmSqcvpfaVNVF6326889387QNKQ50 23-07-31:46:021.2.840.649268.1.72.3 .15|1.2.840.884019.1.13.43.2.7.2.97189 9_[id number] [facility] 2022-05-23 10:59:29 0ueJL/JpOug+dpsy6oENttC/zc21DzfK2lFyZo X2VdQahyoYu2CSL61/xlSvifxx9299-93-24O1 0:59:29 ABC intact. Resp even and unlabored. Skin warm and dry with color appropriate to ethnicity. Pt in stable condition. NAD. Verified name and verbally with pt and armband. Informed pt to notify this RN or staff if wanting to leave, and/or experiencing any changes in condition. 11752-7Praxmlvqr department Triage hozmRY0940-79-64H18:01:33[facility] department Triage noteTXT1.2.840.794103.1.13.43.2.7.2.72 7879|[id number] for patient aloy92851-2Gyxqysfiv department GdpyJU053311382Cuypnhrd Denice Ahmadi R[place] 0884825 [facility] Children's HospitalTmlsWsuewogTrilvnvFZNX2229137390IDOG78 23-05-22T11:01:331.2.840.187386.1.72.3 .15|1.2.840.545974.1.13.43.2.7.2.78777 9_[id number] Mary Jane Cheung RN [facility] 2022-05-23 10:50:34 4MwgRplEOfng7v8iCSntDUC6ikgcQKGsIH89yT dBH1c7Wuc06i7Ebph1EIc/K/jS5331-96-60J5 0:50:34 MEDICAL SCREENING EXAMINATION PROVIDER NOTEI evaluated [...] at this time.Billy Aguayo 2021 10:52 AM 41403-2Bdsdonkxx department VofcVR0340-18-57B25:53:43[facility] NoteTXT1.2.840.424739.1.13.43.2.7.2.72 7879|[id number] for patient mwga95937-9Gehnyntfj department NoteLNNurse PractitionerNurse PractitionerOhio Valley Surgical Hospital2525 [facility]'s HospitalPitxJmidokiZicrszlVUMZ8204226371KLPB44 23-05-22T10:53:431.2.840.840317.1.72.3 .15|1.2.840.411651.1.13.43.2.7.2.61296 9_[id number] Nurse Practitioner [facility] 2022-05-22 20:38:38 2rZ5FVskeX/gjMhyokXswnIb6aTB20V662f56a SDzvM+7BUS+Bd28DlxfVynAbKY8923-70-02S0 0:38:38 Tej Guadalupe called within waiting room and did not answer x3. Patient name paged overhead within the Emergency Department without response. Waiting rooms, ED care areas and restrooms visualized and patient not found. 06842-2Wdgkkwgam department IwibDU9223-97-14C45:38:46[facility] department NoteTXT1.2.840.089552.1.13.43.2.7.2.72 7879|[id number] for patient ggcl39589-3Rwpybcdjw department WsxkYC219720926Joqeajk Martin RNOhio Valley Surgical Hospital2525 [facility]'s HospitalJqsiJkabmzpUdptbhgGNQC2393991137WPKH10 23-05-21T20:38:461.2.840.441976.1.72.3 .15|1.2.840.260305.1.13.43.2.7.2.68544 9_[id number] Michelle Cuenca RN [facility] 2022-05-22 13:26:33 UB1Jaawzd90JheB6cPdXcleXDrksMjrlIWCQPq wJSgx76ZW4yYkVWxcQuD56Dldc5512-94-33W3 3:26:33 MEDICAL SCREENING EXAMINATION PROVIDER NOTEI evaluated [...] at this time.Billy Novak 2021 1:29 PM 08135-3Aedumqohe department MlrrXG6925-97-06P09:33:27[facility] NoteTXT1.2.840.027617.1.13.43.2.7.2.72 7879|[id number] for patient ieew97612-8Wfpydpaiy department NoteLNNurse PractitionerNurse PractitionerOhio Valley Surgical Hospital2525 [facility]'s HospitalM[id number] 23-05-213:33:271.2.840.867063.1.72.3 .15|1.2.840.265127.1.13.43.2.7.2.11358 9_[id number] Nurse Practitioner [facility] 2022-05-19 19:48:02 vXvz6B6AhFiD4aB9ED5YI5LXOEL+3atkRXnoYy Hey5oyVruTrnnNhaoRCBB/orCF2433-51-54L7 9:48:02 Pt AAOX4. Discharge instructions and prescription given, pt verbalizes understanding. Escorted to checkout with belongings in hand. Ambulatory with steady gait. VSS. Respirations even and unlabored. NAD upon departure. 38938-9Swjwuzbkw department CcbqFV4248-95-84T54:48:18[facility] department NoteTXT1.2.840.940513.1.13.43.2.7.2.72 7879|[id number] for patient umdh17797-7Oqbfmmpnu department DsiuYL373873593Kplxnf Myles MARTINIOhio Valley Surgical Hospital2525 [facility]'s HospitalNrxlVixrgkwDiajcxxGAZP7865340594HIXL64 23-05-189:48:181.2.840.903568.1.72.3 .15|1.2.840.110283.1.13.43.2.7.2.53105 9_[id number] Jah Bueno RN [facility] 2022-05-19 19:35:00 uyNMhtDH99Q5/Q/Bg/GZ8EmzAlYRLSNuXBEDMy LU8GPWBtZz5culzGBRD5e71ys92494-77-62U5 9:35:00 37 yo pt comes to ED [...] at this time Pt Is pending d/c 35597-3Zjeuzyevd department ZaewUL3027-60-46O98:48:50[facility] department NoteTXT1.2.840.471520.1.13.43.2.7.2.72 7879|[id number] for patient rtpo33521-2Nzpsdjebm department [facility]2525 [facility]'s HospitalE[id number] 23-05-18T19:48:501.2.840.990360.1.72.3 .15|1.2.840.187953.1.13.43.2.7.2.75940 9_[id number] [facility] 2022-05-19 15:56:27 KZx5w+JKnaLUYAAGpwZCNhocKx3bR7lsKDgupf bhIO11E+SlwQvrovwCMEE4Rj1x6642-30-05R9 5:56:27Associated Order(s): I&D of AbscessPost-Procedure Diagnose(s): Right [...] for cellulitis and had procedure (surgical I&D) ([place]), treated with cellulitis and sent home [...] Impression 1. Right wrist pain Chris Marrufo, MhwbfjpkUWQzzqpnvc99/18/22 1641 Chris Marrufo, HwftalidPIKwkucyix85/18/22 1738 Niru Chris Jaramillo, GivakclyPJEnjulrdv90/18/22 1739 NiruChris, BsshqgrqMJBfizbybc13/18/22 1847 Niru Chris Jaramillo, DoudqmvtOACdtyzkrm86/18/22 1908TEACHING PHYSICIAN NOTEI personally examined Tej Guadalupe, [...] 2021 10:23 PM Daniel Petit MD05/19/22 2226 92467-0Pijlumzjc Emergency department TcuoNV031272PtGnmawp, Robert1.2.840.711179.1.13.43.2.7.2.836 976HvZeetrjDzfuutZM0701-82-95K78:30:23 Physician Emergency department NoteTXT1.2.840.436987.1.13.43.2.7.2.72 7879|[id number] for patient alqa05850-8Tncevccsr department NoteLNInternal MedicineInternal MedicineOhio Valley Surgical Hospital2525 [facility]'s HospitalIexdSaaonxeMuqmftzXDDU7113868261TDQP62 23-05-18T22:26:301.2.840.325654.1.72.3 .15|1.2.840.902885.1.13.43.2.7.2.48035 9_[id number] Internal Medicine [facility] 2022-05-19 15:51:03 TWqaoD/JQmv8qKM3U9bI4vcTtCl3v9Y7vDYsBd G9tTdt7Z31HOnpsLYAzhu5puZe7849-68-91R5 5:51:03 Assessment X2 pt's ID, ABC intact, [...] hot to touch. No peripheral edema. MAEX4 FLUD0Zpif light and belongings within reachPending evaluation and orders, will continue to monitor VINI Gonzalez 61419-5Amipczpey department QkysBS4578-18-90T33:54:23[facility] department NoteTXT1.2.840.764736.1.13.43.2.7.2.72 7879|[id number] for patient luei09815-5Eotchuorm department MgaqLL070467892Frjvtx [facility]2525 [facility]'s HospitalRvpiInmhamyZzxvvalEOMD3652109998WBPD41 23-05-18T15:54:231.2.840.394830.1.72.3 .15|1.2.840.140516.1.13.43.2.7.2.40725 9_[id number] [facility]-19 12:42:01 OGgTU+xtcskp+SGIODBpxtgiAEGWR41HYO3VW1 /Oi/Jg6EPX4Gj72ynRksOp7XGs9738-18-60U4 2:42:01 Pt noted to have another hospital arm band on stated "they told me to come here to get them lanced" 02577-7Rskvbsurv department EbjvCA3190-43-20M49:42:31Emergency department NoteTXT1.2.840.627829.1.13.43.2.7.2.72 7879|[id number] for patient nhdp09161-7Dlgidgjls department QauuBV218932846Nyzmyghm [facility]2525 [facility]'s HospitalNpurKmcyqwyFazowsxGCJZ7477470250EPAH17 23-05-18T12:42:311.2.840.567087.1.72.3 .15|1.2.840.766302.1.13.43.2.7.2.34336 9_[id number] Emma Weathers RN [facility] 2022-05-19 12:32:25 fU8WiAwM26L9GpHjQ2Yy92mg+aY5fVtbQwuU/L W4tQikrvwWY4Xt0OmImhTo9I1W4736-53-63U6 2:32:25 Name and verified and confirmed correct with patient. 67113-3Tpcuutisj department MgxaOZ3925-50-06X60:32:31[facility] department NoteTXT1.2.840.674219.1.13.43.2.7.2.72 7879|[id number] for patient awab39434-7Wogiayqss department NoteLNOhio Valley Surgical Hospital2525 [facility] HospitalPhwbWnauxwcVzdmaksUUGK3508459254RWBL43 23-05-18T12:32:311.2.840.124689.1.72.3 .15|1.2.840.397449.1.13.43.2.7.2.91790 9_[id number] [facility] 2022-05-19 12:30:12 jMl9zYZHXsQMlZ/X6KAsVEfNeM3rWQVXA+7axL c715Rgttmv+Ub3tD1cYznYyHwd0058-30-92G4 2:30:12 MEDICAL SCREENING EXAMINATION PROVIDER NOTEI evaluated [...] at this time.Choco Matthews 2021 12:30 PM 76394-9Mnorefxid department QotcCB0946-39-86E55:32:29[facility] department NoteTXT1.2.840.750805.1.13.43.2.7.2.72 7879|[id number] for patient ajxh74125-1Ldzqksvyb department NoteVassar Brothers Medical Center2525 Natalie KellyOszmNjwyovmPvqnhyjUNEX5640463879UBVK50 23-05-182:32:291.2.840.277485.1.72.3 .15|1.2.840.986248.1.13.43.2.7.2.76299 9_[id number] [facility] 2020-12-13 19:54:00 VJhlumifbfw23220804UBK+l7mkHvFgOsKEgvE c/hyxqajtX065ajHgQD33XGqGvhgEgttNvCFq/ WMBJROy3797-54-71S84:54:00 [facility] ([facility] PROVIDER REPORTREPORT#:[id number] REPORT STATUS: SignedDATE:12/13/20 TIME: 1953 PATIENT: TEJ GUADALUPE UNIT #: [id number]#: [id number] ROOM/BED:AGE: 35 SEX: M PCP PHYS: No [...] HPI NotesPatient states he is withdrawing from [place] and thinks he may have [...] and squeezes hands appropriately upon command. Normal wqjn-xw-hvpe eye movements on extraocular muscle testing. No [...] pH (5.0 - 8.0) 6.5 Ur Specific [place] (1.001 - 1.035) 1.014 Urine Protein (NEGATIVE [...] 12/13 1950 Pulse 102 12/13 1950 Resp 12/13 All vital signs available at the time of this entry have been reviewed. Clinical ImpressionClinical ImpressionPrimary Impression: DepressionSecondary Impressions: POSSIBLE SEIZURE Pt/Provider HandoffCare Transferred at 2238 (to Dr. Mari) at 2238RPT #:[id number] OF REPORTEDEmergency department zdsntg9807-47-44D57:54:00V.ESHM4354403 4-0589AVAvailable for patient pxumVHNZMTLCLLHWJG0795-40-07Z71:39:03 [facility] 2020-12-13 19:54:00 LZollyoikxm72972146vQ3iDzvYLJYkIfCY/Q6 YWgPLVJ6HvtRK6SImdRiUyp2s7Utnyy+Wxasc8 T7uU1R76941-89-70I31:54:00 [facility] ([facility])EMERGENCY PROVIDER REPORTREPORT#:[id number] REPORT STATUS: SignedDATE:12/13/20 TIME: 1952 PATIENT: TEJ GUADALUPE UNIT #: [id number]#: [id number] ROOM/BED:AGE: 35 SEX: M PCP PHYS: No [...] HPI NotesPatient states he is withdrawing from [place] and thinks he may have had a [...] and squeezes hands appropriately upon command. Normal ojtn-vk-svub eye movements on extraocular muscle testing. No [...] pH (5.0 - 8.0) 6.5 Ur Specific [place] (1.001 - 1.035) 1.014 Urine Protein (NEGATIVE [...] 98 On: Room air Interpretation Interpreted by tn, Pulse oximetry normal Time 1956 Re-Evaluation MDM [...] of Re-Eval 0518 at 2238 at 0519RPT #:[id number] OF REPORTEDEmergency department wsxijb6864-67-20T58:54:00V.SJRO4675059 4-0589AVAvailable for patient jgdtJXWGEZBXJCLPVP0574-56-16J66:19:25 [facility] 2020-12-13 19:54:00 ZDnffcxlhin63368080xZqxQJ6KE5CB+LHvbz6 qJktOk7nw0SC+brOYjAJaJoCdkLbBNUQ9W7imx HSN5q9O6990-72-45V48:54:00 [facility] ([facility])EMERGENCY PROVIDER REPORTREPORT#:[id number] REPORT STATUS: SignedDATE:12/13/20 TIME: 1952 PATIENT: TEJ GUADALUPE UNIT #: [id number]#: [id number] ROOM/BED:AGE: 35 SEX: M PCP PHYS: No [...] HPI NotesPatient states he is withdrawing from [place] and thinks he may have [...] and squeezes hands appropriately upon command. Normal vwsg-lp-ashg eye movements on extraocular muscle testing. No [...] pH (5.0 - 8.0) 6.5 Ur Specific [place] (1.001 - 1.035) 1.014 Urine Protein (NEGATIVE [...] 121/86 12/14 0730 B/P Mean 97 12/14 729 O2 Delivery [...] involvement at 2238 at 0519 at 0803RPT #:[id number] OF REPORTEDEmergency department shhfnc9533-79-03Y24:54:00V.ZBHP4467225 4-0589AVAvailable for patient ackfAOVIJKZCYSWFGM0839-59-30R41:03:59 [facility] 2020-12-06 16:41:00 UDmjgnvismr49350964zj/7cGCJcut4LRi4uAw rM7OsIqYpoRCKaGRaoL/feSWio5h4ZVNzd8XgP d0W3hta6540-14-80U17:41:00 [facility] ([facility])EMERGENCY PROVIDER REPORTREPORT#:[id number] REPORT STATUS: SignedDATE:12/06/20 TIME: 1640 PATIENT: TEJ GUADALUPE UNIT #: [id number]#: [id number] ROOM/BED:AGE: 35 SEX: M PCP PHYS: No [...] Medical History - AdultStated Complaint [facility] DETOXAllergiesCoded Allergies:No Known Allergies [...] Documented: Result Date Time Pulse Ox 97 03 1402 B/P 129/87 03/07 1402 B/P Mean 101 03/07 1402 O2 Delivery Room air 03/07 1402 Temp 36.6 03/07 1402 Pulse 93 12/06 1402 Resp 16 12/06 1402 All vital signs available at the time of this entry have been reviewed. Clinical ImpressionClinical ImpressionPrimary Impression: Benzodiazepine abuse Disposition DecisionOther Against Medical Advice Yes at 1528RPT #:[id number] OF REPORTEDEmermercy hospital waldroncy department [id number]:41:00V.[id number] for patient [id number]:28:42 [facility]
[2024-02-25] MEDS ORDERED: HALOPERIDOL LACT 5 MG/ML INJ ONE ×2 (22:32→22:40)
[2024-02-25 22:50] LABS: Absolute Eosinophils 0.3 K/uL (0-0.5); Absolute Lymphocytes (CBC) 2.5 K/uL (0.7-4.9); Absolute Monocytes 0.7 K/uL (0.1-1.3); Absolute Neutrophil 4.4 K/uL (1.8-8.0); Basophils % 0.4 % (0-1.3); Eosinophils % 4.4 % (0-4.4); Hematocrit 43.1 % (39.6-49.0); Hemoglobin 14.3 g/dL (13.6-17.9); Lymphocytes % 31.4 % (15.3-44.8); MCH 31.4 pg (27.0-35.0); MCHC 33.2 g/dL (32.0-36.0); MCV 94.4 fL (80-100); MPV 7.9 fL (7.6-11.3); Monocytes % 8.5 % (3.3-12.3); Neutrophils % 55.3 % (41.7-73.7); Nucleated Red Blood Cells % 0.1 % (0-0); Platelets 233 thou/uL (152-406); RBC Red Blood Cell Count 4.57 M/uL (4.33-5.43); Red Cell Distribution Width 14.2 % (12.1-15.2)
[2024-02-25 22:54] LABS: PT Prothrombin Time 10.6 SECONDS (9.5-12.5); PTT, Activated Partial Thromb 29.5 SECONDS (24.3-36.9); Protime INR 0.96; Specific Gravity 1.023 (1.005-1.030); Sqamous Epithelial <5 /HPF (None Seen); Urine Bacteria None Seen /HPF (<20); Urine Bilirubin NEGATIVE (Negative); Urine Blood Negative (Negative); Urine Clarity Clear (Clear); Urine Color Yellow (Yellow); Urine Culture Reflex Order NOT NEEDED; Urine Glucose NEGATIVE (Negative); Urine Ketones NEGATIVE (Negative); Urine Microscopic Reflex YN ORDER UMIC; Urine Mucus Slight /HPF (None Seen); Urine Nitrite NEGATIVE (Negative); Urine Protein TRACE (Negative); Urine RBC <5 /HPF (None Seen); Urine Urobilinogen 1+ (Normal); Urine WBC <5 /HPF (<5); Urine pH 6.5 (5.0-7.0)
[2024-02-25 22:55] LABS: Barbiturates NEGATIVE (NEGATIVE); Benzodiazepines POSITIVE (NEGATIVE); Cocaine POSITIVE (NEGATIVE); METHAMPHETAM POSITIVE (NEGATIVE); Methadone NEGATIVE (NEGATIVE); Opiates NEGATIVE (NEGATIVE); Phencyclidine NEGATIVE (NEGATIVE); THC Cannibis POSITIVE (NEGATIVE)
--- NOTE | 2024-02-25 23:03 | ER ---
Nurse's Notes [facility] [place] Name: Anthony Au Age: 38 yrs Sex: Male : 1985 Arrival Date: 02/25/2024 Time: 21:51 Bed 6 Private MD: Diagnosis: Drug abuse counseling and surveillance;Hallucinations, unspecified Presentation: 02/24 22:12 Chief complaint: Patient states: pt reports the last several days he has been hearing as6 voices. pt denies SI/HI. Coronavirus screen: At this time, the client does not indicate any symptoms associated with coronavirus-19. Ebola Screen: No symptoms or risks identified at this time. Initial Sepsis Screen: Does the patient meet any 2 criteria? No. Patient's initial sepsis screen is negative. Does the patient have a suspected source of infection? No. Patient's initial sepsis screen is negative. Risk Assessment: Do you want to hurt yourself or someone else? Patient reports no desire to harm self or others. Onset of symptoms was February 22, 2024. 22:12 Acuity: MARKY 3 as6 22:12 Method Of Arrival: Ambulatory as6 Historical: - Allergies: 22:11 No Known Allergies; as6 - PMHx: 22:11 Anxiety; Asthma; Bipolar disorder; Depression; detox seizures; scalp laceration repair.;as6 - PSHx: 22:11 I\T\D; as6 - Immunization history:: Adult Immunizations not up to date. - Infectious Disease History:: Denies. - Social history:: Smoking status: Patient reports the use of cigarette tobacco products, smokes one pack cigarettes per day. Patient uses alcohol, weekly. Screenin:30 [facility] ED Fall Risk Assessment (Adult) History of falling in the last 3 months, jb4 including since admission No falls in past 3 months (0 pts) Confusion or Disorientation No (0 pts) Intoxicated or Sedated No (0 pts) Impaired Gait No (0 pts) Mobility Assist Device Used No (0 pt) Altered Elimination No (0 pt) Score/Fall Risk Level 0 - 2 = Low Risk Oriented to surroundings, Maintained a safe environment. Abuse screen: Denies threats or abuse. Nutritional screening: No deficits noted. Tuberculosis screening: No symptoms or risk factors identified. Assessment: 22:30 General: Appears in no apparent distress. comfortable, Behavior is calm, cooperative, jb4 appropriate for age. Pain: Denies pain. Neuro: Level of Consciousness is awake, alert, Oriented to person, place, time, situation. Cardiovascular: Patient's skin is warm and dry. Respiratory: Airway is patent Respiratory effort is even, unlabored, Respiratory pattern is regular, symmetrical. GI: No signs and/or symptoms were reported involving the gastrointestinal system. : No signs and/or symptoms were reported regarding the genitourinary system. EENT: No signs and/or symptoms were reported regarding the EENT system. Derm: Skin is intact, Skin is pink, warm \T\ dry. Musculoskeletal: Circulation, motion, and sensation intact. Range of motion: intact in all extremities. 23:00 Reassessment: Pt demanding benzodiazepines from ER. Provider notified. Provider at jb4 bedside explaining plan of care and diagnoses to pt. Vital Signs: 22:10 BP 132 / 88; Pulse 92; Resp 18; Temp 97.5; Pulse Ox 97% on R/A; Weight 88.45 kg; Height as6 5 ft. 8 in. ; Pain 7/10; 22:10 Body Mass Index 29.65 (88.45 kg, 172.72 cm) as6 22:10 Pain Scale: Adult as6 ED Course: 21:53 Patient arrived in ED. im 22:01 Giovanni Pitts MD is Attending Physician. ec2 22:11 Arm band placed on. as6 22:13 Triage completed. as6 22:30 Patient has correct armband on for positive identification. Bed in low position. Call jb4 light in reach. Side rails up X 1. Provided Education on: plan of care. 22:33 Kashif Montes, RN is Primary Nurse. jb4 22:33 Acetaminophen Sent. as6 22:33 Basic Metabolic Panel Sent. as6 22:33 CBC with Diff Sent. as6 22:33 Hepatic Function Sent. as6 22:33 ETOH Level Sent. as6 22:33 PT-INR Sent. as6 22:33 Ptt, Activated Sent. as6 22:33 Salicylate Sent. as6 22:33 Urinalysis w/ reflexes Sent. as6 22:33 Urine Drug Screen Sent. as6 22:33 Inserted saline lock: 20 gauge in right forearm, using aseptic technique. Blood as6 collected. 22:40 EKG done, by ED staff, reviewed by Giovanni Pitts MD. bc6 23:20 No provider procedures requiring assistance completed. IV discontinued, intact, jb4 bleeding controlled, No redness/swelling at site. Pressure dressing applied. Administered Medications: 22:49 Not Given (Other Intervention Used): haloperidol5 mg IVP once jb4 :49 Drug: Haloperidol Lactate IM 10 mg IM once Route: IM; Site: left gluteus; jb4 Outcome: 23:03 Discharge ordered by . ec2 23:20 Discharged to home ambulatory, jb4 23:20 Condition: stable 23:20 Discharge instructions given to Pt left prior to receiving instructions. 23:27 Patient left the ED. jb4 Signatures: Kashif Montes RN RN jb4 Tom Valenzuela, VINI RN as6 Sydnee Ramos bc6 Amy Bruce, MD Giovanni MD ec2
--- NOTE | 2024-02-25 23:03 | EDPHYS ---
Physician Documentation [facility] [place] Name: Anthony Au Age: 38 yrs Sex: Male : 1985 Arrival Date: 02/25/2024 Time: 21:51 Bed 6 Private MD: ED Physician Giovanni Pitts HPI: 02/24 22:22 This 38 yrs old Male presents to ER via Ambulatory with complaints of Hearing ec2 voices. 22:22 Patient arrives today for evaluation of reportedly hearing voices. Patient reports ec2 history of bipolar disease, states he takes benzodiazepines for this. Patient states that he would like to increase his benzodiazepine dosages. Patient reports no thoughts of self-harm, states that the voices are not telling him anything specifically to do. Patient denies drug use.. Historical: - Allergies: 22:11 No Known Allergies; as6 - PMHx: 22:11 Anxiety; Asthma; Bipolar disorder; Depression; detox seizures; scalp laceration repair.;as6 - PSHx: 22:11 I\T\D; as6 - Immunization history:: Adult Immunizations not up to date. - Infectious Disease History:: Denies. - Social history:: Smoking status: Patient reports the use of cigarette tobacco products, smokes one pack cigarettes per day. Patient uses alcohol, weekly. ROS: 22:22 Constitutional: as per hpi ec2 Exam: 22:22 Constitutional: GEN: NAD Head: atraumatic Eyes: EOMI Ears: External ears are ec2 normal. CV: regular rate LUNGS: no respiratory distress ABD: non-distended SKIN: no evidence of rashes MSK: no evidence of trauma NEURO: moves all extremities equally. Psych: Cooperative, denies SI or HI. Vital Signs: 22:10 BP 132 / 88; Pulse 92; Resp 18; Temp 97.5; Pulse Ox 97% on R/A; Weight 88.45 kg; Height as6 5 ft. 8 in. ; Pain 7/10; 22:10 Body Mass Index 29.65 (88.45 kg, 172.72 cm) as6 22:10 Pain Scale: Adult as6 MDM: 22:01 Patient medically screened. ec2 22:22 Data reviewed: vital signs. ED course: Patient arrives today for evaluation of hearing ec2 voices. Examination remarkable for well-appearing nontoxic dividual was generally cooperative will does not have thoughts of self-harm. Will obtain a psychiatric evaluation. Will give the patient Haldol as well. Differential diagnosis includes process such as substance abuse, psychiatric disease, anemia, electrolyte disturbances. External record review shows the patient is been here multiple times for drug use and abuse related issues.. 22:58 ED course: Multiple times patient is specifically asked for benzodiazepines, I am ec2 concerned specifically about drug seeking behavior, patient is not hypotensive or tachycardic and does not appear to be toxidromic, I do not be feel that this would be beneficial at this time.. 23:05 ED course: Urine studies are negative for infection, positive for benzodiazepines, ec2 cocaine, methamphetamine as well as marijuana. CBC is unremarkable. Patient is persistent on being given benzodiazepine, patient is not toxidromic and he states that if he is not getting benzodiazepines that he would not like to further be managed. I will discharge him. Patient does not seem like a threat to himself. . 02/24 22:01 Order name: Acetaminophen [facility] 02/24 22:01 Order name: Basic Metabolic Panel [facility] 02/24 22:01 Order name: CBC with Diff; Complete Time: 23:05 2 02/24 22:01 Order name: ETOH Level 2 02/24 22:01 Order name: Hepatic Function [facility] 02/24 22:01 Order name: PT-INR; Complete Time: 23:05 2 02/24 22:01 Order name: Ptt, Activated; Complete Time: 23:05 2 02/24 22:01 Order name: Salicylate [facility] 02/24 22:01 Order name: Urinalysis w/ reflexes; Complete Time: 23:05 2 02/24 22:01 Order name: Urine Drug Screen; Complete Time: 23:05 2 02/24 22:01 Order name: EKG; Complete Time: 22:02 2 02/24 22:01 Order name: EKG - Nurse/Tech; Complete Time: 22:40 2 02/24 22:01 Order name: IV Saline Lock; Complete Time: 22:33 2 02/24 22:01 Order name: Labs collected and sent; Complete Time: 22:33 2 02/24 22:01 Order name: Suicide Screening ([place]); Complete Time: 22:33 ec2 Administered Medications: 22:49 Not Given (Other Intervention Used): haloperidol5 mg IVP once jb4 22:49 Drug: Haloperidol Lactate IM 10 mg IM once Route: IM; Site: left gluteus; jb4 Disposition Summary: 02/25/24 23:03 Discharge Ordered Notes: Location: Home ec2 Condition: Stable ec2 Diagnosis - Drug abuse counseling and surveillance ec2 - Hallucinations, unspecified ec2 Followup: ec2 - With: Private Physician - When: - Reason: Re-evaluation by your physician Forms: - Medication Reconciliation Form ec2 - Antibiotic Education ec2 - Prescription Opioid Use ec2 - Patient Portal Instructions ec2 - Leadership Thank You Letter ec2 Signatures: Dispatcher [employer] Kashif Yañez RN RN jb4 Tom Valenzuela RN RN as6 Giovanni Pitts MD MD ec2
[2024-02-25 23:25] LABS: ALT/SGPT 59 U/L (16-61); AST/SGOT 65 U/L (15-37); Albumin 3.8 g/dL (3.4-5.0); Albumin/Globulin Ratio 1.1 (1.1-1.8); Alkaline Phosphatase 61 U/L (45-117); Anion Gap 10.3 mEq/L (5.0-15.0); BUN Blood Urea Nitrogen 14 mg/dL (7-18); Bicarbonate 25 mEq/L (21-32); Bilirubin Direct 0.2 mg/dL (0-0.2); Bilirubin Indirect, Calculated 0.6 mg/dL (0.2-0.8); Bilirubin Total 0.8 mg/dL (0.2-1.0); Globulin 3.4 g/dL (2.3-3.5); Glomerular Filtration Rate 103 ml/min (=/>90); Glucose Level 124 mg/dL (74-106); Potassium 3.3 mEq/L (3.5-5.1); Protein, Total 7.2 g/dL (6.4-8.2); Sodium Level 139 mEq/L (136-145)
[2024-02-25 23:41] VITALS: BP 132/88; TEMP 97.5; O2SAT 97
--- NOTE | 2024-02-27 14:16 | EKG ---
Test Date: 2024-02-25 Test Time: 22:39:01 Animal Ecologist: DARIANA MEASUREMENT RESULTS: Intervals: Rate: 84 TX: 130 QRSD: 92 QT: 350 QTc: 413 [place]: P: 61 TX: 130 QRS: 108 T: 12 INTERPRETIVE STATEMENTS: Normal sinus rhythm Rightward axis Incomplete right bundle branch block Borderline ECG Compared to ECG 01/28/2024 21:29:02 Right-axis deviation now present Incomplete right bundle-branch block now present Electronically Signed On 02-27-24 14:12:33 CDT by Claudio Betancur
== END 2024-02-25 23:27 | disposition home or self-care (01) ==
LOC: ER 21:51
DX: R44.0 Auditory hallucinations (principal); Z71.51 Drug abuse counseling and surveillance of drug abuser
CPT/HCPCS: 36415; 80048; 80076; 80143; 80179; 80307; 81001; 82077; 85025; 85610; 85730; 93005; 96372; 99284; J1630

== ENCOUNTER 2024-03-17 16:09 | Emergency (ER) | payer SELFPAY ==
--- OUTSIDE RECORDS SUMMARY | 2024-03-17 16:17 | XMS REPORT | Continuity of Care Document ---
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 Body height 2022-05-19 11:13:00 172.7 cm [facility] Body weight 2022-05-19 11:13:00 81.557 kg [facility] BMI 2022-05-19 11:13:00 27.34 kg/m2 [facility] Procedures Procedure Date / Time Performed Performing Clinician Source ASSIGNMENT OF BENEFITS 2023-11-01 20:19:08 Docto r Unassigned, [facility] CONSENT/REFUSAL FOR DIAGNOSIS AND TREATMENT 2023-11-01 18:57:25 Doctor Unassigned, Fox [facility] CONSENT/REFUSAL FOR DIAGNOSIS AND TREATMENT 2023-10-02 17:51:45 Doctor Unassigned, Fox [facility] NOTICE OF PRIVACY PRACTICES 2023-09-29 00:09:30 Doctor Unassigned, Fox [facility] CONSENT/REFUSAL FOR DIAGNOSIS AND TREATMENT 2023-09-29 00:09:09 Doctor Unassigned, Fox [facility] CONSENT/REFUSAL FOR DIAGNOSIS AND TREATMENT 2022-06-06 17:25:33 Doctor Unassigned, Fox [facility] BASIC METABOLIC PANEL 2022-06-02 03:57:00 Ian Lawson [facility] BASIC METABOLIC PANEL 2022-06-02 03:57:00 Ian Lawson [facility] AMIKACIN, TROUGH LEVEL 2022-05-31 21:13:00 Mely Soliz [facility] AMIKACIN, TROUGH LEVEL 2022-05-31 21:13:00 Mely Soliz [facility] WOUND/ABSCESS CULTURE AND GRAM STAIN 2022-05-31 08:53:00 Germán, [facility] AFB STAIN AND CULTURE 2022-05-31 08:53:00 Germán, [facility] ANAEROBE CULTURE 2022-05-31 08:53:00 Germán, [facility] FUNGUS STAIN AND CULTURE 2022-05-31 08:53:00 Germán, [facility] AFB STAIN AND CULTURE 2022-05-31 08:53:00 Germán, [facility] ANAEROBE CULTURE 2022-05-31 08:53:00 Germán, [facility] FUNGUS STAIN AND CULTURE 2022-05-31 08:53:00 Germán, Pilo [facility] WOUND/ABSCESS CULTURE AND GRAM STAIN 2022-05-31 08:53:00 Germán [facility] BASIC METABOLIC PANEL 2022-05-31 05:12:00 Lawson [facility] BASIC METABOLIC PANEL 2022-05-31 05:12:00 Lawson [facility] GLUCOSE POC 2022-05-29 08:04:00 [facility] GLUCOSE POC 2022-05-29 08:04:00 [facility] CBC (WITHOUT DIFFERENTIAL) 2022-05-29 04:33:00 Lawson [facility] BASIC METABOLIC PANEL 2022-05-29 04:33:00 Lawson [facility] BASIC METABOLIC PANEL 2022-05-29 04:33:00 Lawson [facility] CBC (WITHOUT DIFFERENTIAL) 2022-05-29 04:33:00 Lawson [facility] GLUCOSE POC 2022-05-28 16:49:00 [facility] GLUCOSE POC 2022-05-28 16:49:00 [facility] GLUCOSE POC 2022-05-28 11:46:00 [facility] GLUCOSE POC 2022-05-28 11:46:00 MarcinLupe [facility]ano [facility] GLUCOSE POC 2022-05-28 08:24:00 MarcinLupe [facility] GLUCOSE POC 2022-05-28 08:24:00 MarcinLupe [facility] CBC (WITHOUT DIFFERENTIAL) 2022-05-28 04:36:00 [facility] BASIC METABOLIC PANEL 2022-05-28 04:36:00 LawsonIan [facility] BASIC METABOLIC PANEL 2022-05-28 04:36:00 LawsonIan [facility] CBC (WITHOUT DIFFERENTIAL) 2022-05-28 04:36:00 LwasonHeath [facility] CBC (WITHOUT DIFFERENTIAL) 2022-05-27 05:10:00 LawsonHeath [facility] BASIC METABOLIC PANEL 2022-05-27 05:10:00 Lawson Ian Garcia [facility] AMIKACIN, RANDOM LEVEL 2022-05-27 05:10:00 MarcinMatteo S [facility] BASIC METABOLIC PANEL 2022-05-27 05:10:00 LawsonIan [facility] CBC (WITHOUT DIFFERENTIAL) 2022-05-27 05:10:00 LawsonHeath [facility] AMIKACIN, RANDOM LEVEL 2022-05-27 05:10:00 Marcin, Matteo mora S [facility] AMIKACIN, RANDOM LEVEL 2022-05-26 23:35:00 Marcin, Da alexanderd S [facility] AMIKACIN, RANDOM LEVEL 2022-05-26 23:35:00 Marcin, Da alexanderd S [facility] AMIKACIN, TROUGH LEVEL 2022-05-26 05:53:00 Hazel Obando [facility] CBC (WITHOUT DIFFERENTIAL) 2022-05-26 05:53:00 LawsonNarendrao Jose [facility] BASIC METABOLIC PANEL 2022-05-26 05:53:00 Lawson Ian wilson [facility] BASIC METABOLIC PANEL 2022-05-26 05:53:00 Lawson Ian Garcia [facility] CBC (WITHOUT DIFFERENTIAL) 2022-05-26 05:53:00 LawsonHeath [facility] AMIKACIN, TROUGH LEVEL 2022-05-26 05:53:00 Hazel Obando [facility] CONSULT CLINICAL CASE MANAGEMENT (RN/SW) 2022-05-25 14:55:14 Myles Lazcano [facility] CONSULT CLINICAL CASE MANAGEMENT (RN/SW) 2022-05-25 14:55:14 Neno Myles Sudarsahn [facility] CBC/DIFF 2022-05-25 08:24:00 [facility]OL[facility] PANEL 2022-05-25 08:24:00 LawsonIan [facility] CBC 2022-05-25 08:24:00 Lawson [facility] BASIC METABOLIC PANEL 2022-05-25 08:24:00 LawsonIan [facility] CBC/DIFF 2022-05-25 08:24:00 Lawson [facility] CBC 2022-05-25 08:24:[address] [facility] ANAEROBE CULTURE 2022-05-24 20:47[facility]00 [facility] GRAM STAIN 2022-05-24 20:47[facility]00 [facility]22-05-24 20:47[facility]00 [facility] AND GRAM STAIN 2022-05-24 20:47[facility]00 [facility] 2022-05-24 15:44:00 Germán [facility] FUNGUS STAIN AND CULTURE 2022-05-24 15:44:00 Pilo Dunlap [facility] AFB STAIN AND CULTURE 2022-05-24 15:44:00 Germán [facility] FUNGUS STAIN AND CULTURE 2022-05-24 15:44:00 Pilo Dunlap [facility] INFUSION PUMP 2022-05-24 04:24:23 Lupe Burch [facility] INFUSION PUMP 2022-05-24 04:24:23 Lupe Burch [facility] CBC/DIFF 2022-05-24 04:22:00 Yasmany Gonzalez [facility] CBC 2022-05-24 04:22:00 Yasmany Gonzalez [facility] CBC/DIFF 2022-05-24 04:22:00 Yasmany Gonzalez [facility] CBC 2022-05-24 04:22:00 Yasmany Gonzalez [facility] HIV AG/AB COMBO DIAGNOSTIC/SYMPTOMATIC 2022-05-23 18:44:00 [facility] HEPATITIS PANEL 2022-05-23 18:44:00 Adore, [facility] HEPATITIS PANEL 2022-05-23 18:44:00 Adore, [facility] HIV AG/AB COMBO DIAGNOSTIC/SYMPTOMATIC 2022-05-23 18:44:00 [facility] SARS-COV-2, FLU A/B, RSV 2022-05-23 15:41:00 Odilon Orlando [facility] CORONAVIRUS, COVID-19, YOKASTA 2022-05-23 15:41:00 Orlando Donald [facility] CORONAVIRUS, COVID-19, YOKASTA 2022-05-23 15:41:00 Orlando Donald [facility] SARS-COV-2, FLU A/B, RSV 2022-05-23 15:41:00 Orlando Donald [facility] BASIC METABOLIC PANEL 2022-05-23 11:25:00 German Mckinney [facility] CBC/DIFF 2022-05-23 11:25:00 Stefanie Mckinney [facility] CBC 2022-05-23 11:25:00 Stefanie Mckinney [facility] SED RATE 2022-05-23 11:25:00 Orlando Donald [facility] C-REACTIVE PROT 2022-05-23 11:25:00 Orlando Donald is [facility] BASIC METABOLIC PANEL 2022-05-23 11:25:00 German Mckinney [facility] CBC/DIFF 2022-05-23 11:25:00 Stefanie Mckinney [facility] C-REACTIVE PROT 2022-05-23 11:25:00 [facility] SED RATE 2022-05-23 11:25:00 Orlando Donald [facility] CBC 2022-05-23 11:25:00 Stefanie Mckinney [facility] LIMITED BEDSIDE ULTRASOUND 2022-05-23 11:08:27 Unknown, Provider [facility] HC POC URINE DRUG SCREEN 2022-05-19 21:30:00 Jennifer Alcala [facility] HC POC URINE DRUG SCREEN 2022-05-19 21:30:00 Cari Jennifer [facility] I&D OF ABSCESS 2022-05-19 19:03:24 Niru Chris Jaramillo [facility] I&D OF ABSCESS 2022-05-19 19:03:24 Niru Chris Jaramillo [facility] WOUND/ABSCESS CULTURE AND GRAM STAIN 2022-05-19 18:54:00 RiccokarynChris [facility] WOUND/ABSCESS CULTURE AND GRAM STAIN 2022-05-19 18:54:00 RiccokarynChris [facility] XRAY FOREARM 2 VIEWS MIN 2022-05-19 17:04:37 Keagan Wells [facility] XRAY FOREARM 2 VIEWS MIN 2022-05-19 17:04:37 Tramaineella Keagan [facility] CBC/DIFF 2022-05-19 14:29:[address] [facility] BASIC METABOLIC PANEL 2022-05-19 14:29:00 Dana Wells [facility] LACTIC ACID 2022-05-19 14:29:[address] [facility] CBC 2022-05-19 14:29:00 Naomi Wells [facility] SED RATE 2022-05-19 14:29:[address] [facility] C-REACTIVE PROT 2022-05-19 14:29:00 Naomi Wells [facility] BASIC METABOLIC PANEL 2022-05-19 14:29:00 Dana Wells [facility] CBC/DIFF 2022-05-19 14:29:[address] [facility] C-REACTIVE PROT 2022-05-19 14:29:00 Russell [facility] LACTIC ACID 2022-05-19 14:29:00 Naomi Wells [facility] SED RATE 2022-05-19 14:29:[address] [facility] CBC 2022-05-19 14:29:00 Naomi Wells [facility] HC POC URINE DRUG SCREEN 2022-05-19 11:15:00 [facility]INE DR[facility] SCREEN 2022-05-19 11:15:00 [facility]-19 2022-05-17 17:50:00 Kerline [facility] HC POC URINE DRUG SCREEN 2022-05-12 17:47:00 Manpreet Rebel Pettit [facility] HC POC URINE DRUG SCREEN 2022-05-12 17:47:00 Manpreet Rebel [facility] POC COVID-19 2022-05-11 23:56:00 [facility] Rebel N [facility] XRAY WRIST 3 VIEWS MIN 2022-05-11 17:04:00 Michael [facility] CBC/DIFF 2022-05-11 16:20:00 Michael Hanh Mata [facility] BASIC METABOLIC PANEL 2022-05-11 16:20:00 German Rodriguez [facility] HIV AG/AB COMBO ROUTINE SCREENING 2022-05-11 16:20:00 Michael [facility] CBC 2022-05-11 16:20:00 [facility] (IMMUNOASSAY) - COMPREHENSIVE DRUG SCREEN 2021-01-30 22:04:[address] [facility] HEPATIC FUNCTION PANEL (57636) (ALB,T.PRO,BILI T,BU/BC,ALT,AST,ALK PHOS) 2021-01-30 22:03:[address] [facility] BASIC METABOLIC PANEL (NA, K, CL, CO2, GLUCOSE, BUN, CREATININE, CA) 2021-01-30 22:03:[address] [facility] SALICYLATE 2021-01-30 22:03:[address] [facility] 2021-01-30 22:03:00 [facility]FF 2021-01-30 22:03:00 [facility] URINALYSIS 2021-01-30 22:02:00 [facility] COVID-19 (ID NOW RAPID TESTING) 2021-01-30 22:02:[address] [facility] NOTICE OF PRIVACY PRACTICES 2021-01-30 21:37:21 Doctor Unassigned, [facility] CONSENT/REFUSAL FOR DIAGNOSIS AND TREATMENT 2021-01-30 21:37:00 Doctor Unassigned, [facility] Plan of Care Planned Activity Planned Date Details Comments Source [facility] Scheduled Test 2023-07-02 00:00:00 IMM Influenza Seasonal (>/= 19 yrs) [code = IMM Influenza Seasonal (>/= 19 yrs)] [facility] Scheduled Test 2023-07-02 00:00:00 IMM Influenza Seasonal (>/= 19 yrs) [code = IMM Influenza Seasonal (>/= 19 yrs)] [facility] Scheduled Test 2023-06-02 00:00:00 IMM Influenza Seasonal (>/= 19 yrs) [code = IMM Influenza Seasonal (>/= 19 yrs)] [facility] Scheduled Test 2023-06-02 00:00:00 IMM Influenza Seasonal (>/= 19 yrs) [code = IMM Influenza Seasonal (>/= 19 yrs)] [facility] Scheduled Test 2023-06-02 00:00:00 IMM Influenza Seasonal (>/= 19 yrs) [code = IMM Influenza Seasonal (>/= 19 yrs)] [facility] Scheduled Test 2023-06-02 00:00:00 IMM Influenza Seasonal (>/= 19 yrs) [code = IMM Influenza Seasonal (>/= 19 yrs)] [facility] Scheduled Test 2023-06-02 00:00:00 IMM Influenza Seasonal (>/= 19 yrs) [code = IMM Influenza Seasonal (>/= 19 yrs)] [facility] Scheduled Test 2023-06-02 00:00:00 COVID-19 Vaccine ( season) [code = COVID-19 Vaccine ( season)] [facility] Scheduled Test 2023-06-02 00:00:00 IMM Influenza Seasonal (>/= 19 yrs) [code = IMM Influenza Seasonal (>/= 19 yrs)] [facility] Scheduled Test 2023-06-02 00:00:00 COVID-19 Vaccine ( season) [code = COVID-19 Vaccine ( season)] [facility] Scheduled Test 2023-06-02 00:00:00 IMM Influenza Seasonal (>/= 19 yrs) [code = IMM Influenza Seasonal (>/= 19 yrs)] [facility] Scheduled Test 2022-07-02 00:00:00 IMM Influenza Seasonal (>/= 19 yrs) [code = IMM Influenza Seasonal (>/= 19 yrs)] [facility] Scheduled Test 2022-07-02 00:00:00 IMM Influenza Seasonal (>/= 19 yrs) [code = IMM Influenza Seasonal (>/= 19 yrs)] [facility] Scheduled Test 2022-07-02 00:00:00 IMM Influenza Seasonal (>/= 19 yrs) [code = IMM Influenza Seasonal (>/= 19 yrs)] [facility] Scheduled Test 1992 00:00:00 Imm Pneumococcal 0-64 (1 - PCV) [code = Imm Pneumococcal 0-64 (1 - PCV)] [facility] Scheduled Test 1992 00:00:00 Imm Pneumococcal 0-64 (1 - PCV) [code = Imm Pneumococcal 0-64 (1 - PCV)] [facility] Scheduled Test 1992 00:00:00 Imm Pneumococcal 0-64 (1 - PCV) [code = Imm Pneumococcal 0-64 (1 - PCV)] [facility] Scheduled Test 1992 00:00:00 Imm Pneumococcal 0-64 (1 - PCV) [code = Imm Pneumococcal 0-64 (1 - PCV)] [facility] Scheduled Test 1992 00:00:00 Imm Pneumococcal 0-64 (1 - PCV) [code = Imm Pneumococcal 0-64 (1 - PCV)] [facility] Scheduled Test 1992 00:00:00 Imm Pneumococcal 0-64 (1 - PCV) [code = Imm Pneumococcal 0-64 (1 - PCV)] [facility] Scheduled Test 1992 00:00:00 Imm Pneumococcal 0-64 (1 - PCV) [code = Imm Pneumococcal 0-64 (1 - PCV)] [facility] Scheduled Test 1992 00:00:00 Imm Pneumococcal 0-64 (1 of 2 - PCV) [code = Imm Pneumococcal 0-64 (1 of 2 - PCV)] [facility] Scheduled Test 1992 00:00:00 Imm Pneumococcal 0-64 (1 of 2 - PCV) [code = Imm Pneumococcal 0-64 (1 of 2 - PCV)] [facility] Scheduled Test 1992 00:00:00 Imm Pneumococcal 0-64 (1 of 2 - PCV) [code = Imm Pneumococcal 0-64 (1 of 2 - PCV)] [facility] Scheduled Test 1992 00:00:00 Imm Pneumococcal 0-64 (1 of 2 - PCV) [code = Imm Pneumococcal 0-64 (1 of 2 - PCV)] [facility] Scheduled Test 1992 00:00:00 Imm Pneumococcal 0-64 (1 - PCV) [code = Imm Pneumococcal 0-64 (1 - PCV)] [facility] Scheduled Test 1986 00:00:00 COVID-19 Vaccine (#1) [code = COVID-19 Vaccine (#1)] [facility] Scheduled Test 1986 00:00:00 COVID-19 Vaccine (#1) [code = COVID-19 Vaccine (#1)] [facility] Scheduled Test 1986 00:00:00 COVID-19 Vaccine (#1) [code = COVID-19 Vaccine (#1)] [facility] Scheduled Test 1986 00:00:00 COVID-19 Vaccine (#1) [code = COVID-19 Vaccine (#1)] [facility] Scheduled Test 1986 00:00:00 COVID-19 Vaccine (#1) [code = COVID-19 Vaccine (#1)] [facility] Scheduled Test 1986 00:00:00 COVID-19 Vaccine (#1) [code = COVID-19 Vaccine (#1)] [facility] Scheduled Test 1986 00:00:00 COVID-19 Vaccine (#1) [code = COVID-19 Vaccine (#1)] [facility] Scheduled Test 1986 00:00:00 COVID-19 Vaccine (#1) [code = COVID-19 Vaccine (#1)] [facility] Scheduled Test 1986 00:00:00 COVID-19 Vaccine (#1) [code = COVID-19 Vaccine (#1)] [facility] Scheduled Test 1986 00:00:00 COVID-19 Vaccine (#1) [code = COVID-19 Vaccine (#1)] [facility] Scheduled Test 1986 00:00:00 Fluoride Varnish [code = Fluoride Varnish] [facility] Scheduled Test 1986 00:00:00 Fluoride Varnish [code = Fluoride Varnish] [facility] Encounters Start Date/Time End Date/Time Encounter Type Admission Type Attending [facility] Care Department Encounter ID Source 2022-06-15 12:36:45 Outpatient [facility] [id number] [facility] 2022-06-14 12:01:29 Emergency HFD HFD [id number] [facility] ent 2022-06-06 23:18:34 Outpatient [facility] [id number] [facility] 2022-06-06 23:16:04 Outpatient [facility] [id number] [facility] 2022-04-06 05:42:38 Outpatient [facility] [id number] [facility] 2020-12-14 08:08:00 Inpatient [facility] LJ [id number] [facility] 2020-12-13 19:49:00 Inpatient HCAB[facility] LJ [id number] [facility] 2020-12-06 14:30:44 Inpatient [facility]AB[facility] HCABM [id number] [facility] 2024-01-02 00:00:00 2024-01-02 00:00:00 Patient Outreach Tatiana Allen 1..840.114 [id number] [facility] 2023-11-01 13:02:00 2023-11-01 14:34:00 Emergency X Ella GONZALEZ [facility] ERT [id number] [facility] 2023-11-01 13:02:00 2023-11-01 14:34:00 Emergency Ella Gonzalez [facility] ..840.114 [id number] [facility] 2023-10-02 11:59:00 2023-10-02 12:42:00 Emergency X DEB BURGOS [facility] ERT [id number] [facility] 2023-10-02 11:59:00 2023-10-02 12:42:00 Emergency Deb Burgos [facility] [id number] [facility] 2023-09-28 18:19:00 2023-09-28 19:26:00 Emergency X DYANA JORGENSEN [facility] ERT [id number] [facility] 2023-09-28 18:19:00 2023-09-28 19:26:00 Emergency Dyana Jorgensen [facility] 1..840.114 [id number] [id number] [facility] 2023-09-28 00:00:00 2023-09-28 00:00:00 Orders Only Doctor Unassigned, Fox [facility] 1..840.114 350.1.13.10 [id number] [id number] [facility] 2022-07-27 08:49:00 2022-07-27 12:49:[address] [facility] [id number] [facility] 2022-06-24 08:00:00 2022-06-24 08:30:00 Office Visit Fanta Hernandez [facility] 1..840.114 [id number] [facility] 2022-06-20 00:00:00 2022-06-20 00:00:00 Outpatient [facility] [id number] [facility] 2022-06-14 18:10:00 2022-06-17 00:38:00 Emergency E DANIEL MEDINA [place] [id number] [facility] 2022-06-14 10:48:00 2022-06-14 15:20:00 Emergency SITA HARDY [facility] [id number] [facility] 2022-06-06 12:34:00 2022-06-06 13:23:00 Emergency DANIEL PARKER [facility] [id number] [facility] 2022-06-06 12:34:00 2022-06-06 13:23:00 Emergency Daniel Dumont [facility] [id number] [id number] [facility] 2022-06-03 00:00:00 2022-06-04 22:29:00 Emergency [facility] [id number] [facility] 2022-06-03 00:00:00 2022-06-04 22:29:00 Emergency [facility] [id number] [facility] 2022-06-03 23:37:47 2022-06-03 23:59:00 Outpatient [facility] [id number] [facility] 2022-06-03 21:28:26 2022-06-03 23:36:00 Outpatient [facility] [id number] [facility] 2022-05-23 13:09:00 2022-06-03 18:30:00 Hospital Encounter Jose F Reyes David S [facility] 1..840.114 [id number] [id number] [facility] 2022-05-30 16:04:37 2022-05-30 16:04:39 Inpatient [facility] [id number] [facility] 2022-05-23 13:09:00 2022-05-23 13:09:00 Inpatient 1 LUPE BURCH [facility] [id number] [facility] 2022-05-22 19:04:00 2022-05-22 20:39:00 Emergency Kalina Meraz [facility] [id number] [id number] [facility] 2022-05-19 14:06:00 2022-05-19 19:49:00 Emergency 1 MARISABELDANIEL [facility] [id number] [facility] 2022-05-19 14:06:00 2022-05-19 19:49:00 Emergency Daniel Petit [facility] [id number] [id number] [id number] [facility] 2022-05-19 16:50:11 2022-05-19 17:04:43 Emergency [facility] [id number] [facility] 2022-05-18 10:13:00 2022-05-19 10:30:00 Inpatient [facility] [id number] [facility] 2022-05-11 22:33:18 2022-05-18 09:43:00 Inpatient KERLINE OMER [facility] [id number] [facility] 2022-05-11 19:53:00 2022-05-11 21:53:00 Emergency MarisabelDaniel [facility] [id number] [facility] 2022-05-11 19:53:00 2022-05-11 21:53:00 Emergency MarisabelDaniel argueta [facility] [id number] [facility] 2022-05-11 16:54:18 2022-05-11 17:05:03 Emergency [facility] [id number] [facility] 2022-05-11 16:05:00 2022-05-11 16:05:00 Emergency 1 [facility] [id number] [facility] 2021-01-30 16:48:00 2021-01-30 23:59:00 Emergency Shy Martin [facility] [id number] 350.1.13.10 [id number] [id number] [facility] 2021-01-30 16:48:00 2021-01-30 16:48:00 Emergency X SHY [facility] [id number] [facility] 2021-01-30 00:00:00 2021-01-30 00:00:00 Orders Only Doctor Unassigned, Fox [facility] 1.2.840.114 350.1.13.10 [id number] [id number] [facility] 2020-03-03 09:37:00 2020-03-03 09:37:00 Emergency X [facility] [id number] [facility] Results Test Description Test Time Test Comments Results Result Co mments Source [facility] Rgvwdrl0123-87-38 11:04:16* Test Item Value Reference Range Interpretation Comme nts AFB Culture (test code = 543-9) No acid fast bacilli isolated in 6 weeks AFB Stain (test code = 676-7) No acid fast bacilli seen TRACY (test code = TRACY) Reference value: N o acid fast bacilli isolated [facility] Ibbicvv8250-20-71 11:04:16* Test Item Value Reference Range Interpretation Comme nts AFB Culture (test code = 543-9) No acid fast bacilli isolated in 6 weeks AFB Stain (test code = 676-7) No acid fast bacilli seen TRACY (test code = TRACY) Reference value: N o acid fast bacilli isolated [facility] Sezwjnf8519-18-00 21:02:46* Test Item Value Reference Range Interpretation Comme nts AFB Culture (test code = 543-9) No acid fast bacilli isolated in 6 weeks AFB Stain (test code = 676-7) No acid fast bacilli seen TRACY (test code = TRACY) Reference value: N o acid fast bacilli isolated [facility] Nswuoui1305-43-20 21:02:45* Test Item Value Reference Range Interpretation Comme nts AFB Culture (test code = 543-9) No acid fast bacilli isolated in 6 weeks AFB Stain (test code = 676-7) No acid fast bacilli seen TRACY (test code = TRACY) Reference value: N o acid fast bacilli isolated [facility] Xbmqten3555-86-89 20:02:40* Test Item Value Reference Range Interpretation Comme nts AFB Culture (test code = 543-9) No acid fast bacilli isolated in 6 weeks AFB Stain (test code = 676-7) No acid fast bacilli seen TRACY (test code = TRACY) Reference value: N o acid fast bacilli isolated [facility] Yyszcwa9634-62-64 19:03:24* Test Item Value Reference Range Interpretation Comme nts Fungus Culture (test code = 580-1) No fungus isolated in 4 weeks Fungus Stain (test code = 658-5) No fungal elements seen TRACY (test code = TRACY) Reference value: N o fungus isolated [facility] Rnbfncw0997-51-57 19:03:24* Test Item Value Reference Range Interpretation Comme nts Fungus Culture (test code = 580-1) No fungus isolated in 4 weeks Fungus Stain (test code = 658-5) No fungal elements seen TRACY (test code = TRACY) Reference value: N o fungus isolated [facility] Mavybpm7161-87-12 19:03:24* Test Item Value Reference Range Interpretation Comme nts Fungus Culture (test code = 580-1) No fungus isolated in 4 weeks Fungus Stain (test code = 658-5) No fungal elements seen TRACY (test code = TRACY) Reference value: N o fungus isolated [facility] Jejzkad5729-41-35 05:04:44* Test Item Value Reference Range Interpretation Comme nts Fungus Culture (test code = 580-1) No fungus isolated in 4 weeks Fungus Stain (test code = 658-5) No fungal elements seen TRACY (test code = TRACY) Reference value: N o fungus isolated [facility] Ipieptg7748-94-83 05:04:43* Test Item Value Reference Range Interpretation Comme nts Fungus Culture (test code = 580-1) No fungus isolated in 4 weeks Fungus Stain (test code = 658-5) No fungal elements seen TRACY (test code = TRACY) Reference value: N o fungus isolated [facility] Kvjjogg5435-66-87 04:04:04* Test Item Value Reference Range Interpretation Comme nts Fungus Culture (test code = 580-1) No fungus isolated in 4 weeks Fungus Stain (test code = 658-5) No fungal elements seen TRACY (test code = TRACY) Reference value: N o fungus isolated [facility] Hfufila9212-73-17 06:33:06* Test Item Value Reference Range Interpretation Comme nts Anaerobe Culture (test code = 635-3) No anaerobes isolated in 5 days TRACY (test code = TRACY) Reference value: N o anaerobes isolated [facility] Dfsfxms5125-37-16 06:33:06* Test Item Value Reference Range Interpretation Comme nts Anaerobe Culture (test code = 635-3) No anaerobes isolated in 5 days TRACY (test code = TRACY) Reference value: N o anaerobes isolated [facility] Fwutgqe4335-36-43 06:33:06* Test Item Value Reference Range Interpretation Comme nts Anaerobe Culture (test code = 635-3) No anaerobes isolated in 5 days TRACY (test code = TRACY) Reference value: N o anaerobes isolated [facility] Ygqkhku6145-81-93 06:33:06* Test Item Value Reference Range Interpretation Comme nts Anaerobe Culture (test code = 635-3) No anaerobes isolated in 5 days TRACY (test code = TRACY) Reference value: N o anaerobes isolated [facility] Bvfri7898-73-48 08:20:27* Test Item Value Reference Range Interpretation [...] the reference value is considered "No growth". [facility] Gram Cmifa4881-81-00 08:20:27* Test Item Value Reference Range Interpretation [...] the reference value is considered "No growth". [facility] & Gram Zwcjc7285-55-19 08:20:27* Test Item Value Reference Range Interpretation [...] the reference value is considered "No growth". [facility]Abscess Culture & Gram Spakj9430-91-63 08:20:27* Test Item Value Reference Range Interpretation [...] the reference value is considered "No growth". [facility]Abscess Culture & Gram Zmmat3045-28-65 10:37:20* Test Item Value Reference Range Interpretation Comme nts Wound Culture (test code = 6463-4) 1+ Acid fast bacilli AA REFER TO [id number] Gram Stain (test code = 664-3) No organisms seen TRACY (test code = TRACY) Reference value: Non-sterile sites may be contaminated with esperanza that is considered normal or otherwise not clinically relevant. As appropriate, normal results will indicate the presence or absence of such esperanza. Otherwise, the reference value is considered "No growth". Lab Interpretation (test code = 29533-3) Abnormal [facility] Xlxm4144-55-95 10:37:20* Test Item Value Reference Range Interpretation Comme nts Bacteria Spec Cult (test code = 6463-4) ACID-FAST BACILLUS AA 1+ Acid fast bacilliREFER TO [id number] Reference value: Non-sterile sites may be contaminated [...] 6463-4) Acid fast bacilli AA REFER TO [id number] Gram Stain (test code = 664-3) No organisms seen TRACY (test code = TRACY) Reference value: Non-sterile sites may be contaminated with esperanza that is considered normal or otherwise not clinically relevant. As appropriate, normal results will indicate the presence or absence of such esperanza. Otherwise, the reference value is considered "No growth". Lab Interpretation (test code = 42331-4) Abnormal [facility] Dftw2162-99-41 10:36:38* Test Item Value Reference Range Interpretation Comme nts Bacteria Spec Cult (test code = 6463-4) ACID-FAST BACILLUS AA Acid fast bacilliREFER TO [id number] Reference value: Non-sterile sites may be contaminated [...] 6463-4) Acid fast bacilli AA REFER TO [id number] Gram Stain (test code = 664-3) No organisms seen TRACY (test code = TRACY) Reference value: Non-sterile sites may be contaminated with esperanza that is considered normal or otherwise not clinically relevant. As appropriate, normal results will indicate the presence or absence of such esperanza. Otherwise, the reference value is considered "No growth". Lab Interpretation (test code = 31466-3) Abnormal [facility] Ofke2403-22-63 10:35:39* Test Item Value Reference Range Interpretation Comme nts Bacteria Spec Cult (test code = 6463-4) ACID-FAST BACILLUS AA Acid fast bacilliREFER TO [id number] Reference value: Non-sterile sites may be contaminated with esperanza that is considered normal or otherwise not clinically relevant. As appropriate, normal results will indicate the presence or absence of such esperanza. Otherwise, the reference value is considered "No growth".[facility] Lgjqyix4939-89-52 09:36:58 * Test Item Value Reference Range Interpretation Comme nts Anaerobe Culture (test code = 635-3) No anaerobes isolated in 5 days TRACY (test code = TRACY) Reference value: N o anaerobes isolated [facility] Techbsw0303-60-16 09:36:11* Test Item Value Reference Range Interpretation Comme nts Anaerobe Culture (test code = 635-3) No anaerobes isolated in 5 days TRACY (test code = TRACY) Reference value: N o anaerobes isolated [facility] Pqzoxfz9136-61-87 09:35:49* Test Item Value Reference Range Interpretation Comme nts Anaerobe Culture (test code = 635-3) No anaerobes isolated in 5 days TRACY (test code = TRACY) Reference value: N o anaerobes isolated [facility] P[facility] docked cpuqfw4821-04-73 08:05:41* Test Item Value Reference Range Interpretation Comme nts Glucose POC (test code = 73430435) 107 mg/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 Lab Interpretation (test code = 37563-7) Abnormal [facility] P[facility] docked cvemza2344-07-14 08:05:41* Test Item Value Reference Range Interpretation Comme nts Glucose POC (test code = 92848400) 107 mg/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 Lab Interpretation (test code = 67825-4) Abnormal [facility] docked rkkpvr5954-92-05 08:05:41* Test Item Value Reference Range Interpretation Comme nts Glucose POC (test code = 85224695) 107 mg/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 Lab Interpretation (test code = 50753-1) Abnormal [facility] docked fddcyb2502-99-10 08:05:41* Test Item Value Reference Range Interpretation Comme nts Glucose POC (test code = 48254515) 107 mg/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 Lab Interpretation (test code = 22189-6) Abnormal [facility] docked scimmj3245-90-89 16:50:48* Test Item Value Reference Range Interpretation Comme nts Glucose POC (test code = 90141438) 107 mg/dL 74-106 H Lab Interpretation (test cod e = 08745-1) Abnormal [facility] docked kxjkin9462-60-95 11:46:44* Test Item Value Reference Range Interpretation Comme nts Glucose POC (test code = 67878122) 89 mg/dL 74-106 Lab Interpretation (test cod e = 41831-5) Normal [facility] POC docked gwouno3354-53-46 08:25:07* Test Item Value Reference Range Interpretation Comme nts Glucose POC (test code = 69155925) 83 mg/dL 74-106 Lab Interpretation (test cod e = 63081-7) Normal [facility] Fbmc8937-63-28 14:19:13* Test Item Value Reference Range Interpretation Comme nts Bacteria Spec Cult (test code = 6463-4) ACID-FAST BACILLUS AA 4+ Acid fast bacilli HHSHIV 1+2 Ab+HIV1 p24 Ag SerPl Ql [id number] 19:49:40* Test Item Value Reference Range Interpretation Comme nts HIV 1+2 Ab+HIV1 p24 Ag SerPl Ql IA (test code = 32788-4) NEGATIVE Negative HHSCoronavirus, CoVID-19, [id number] 16:40:22* Test Item Value Reference Range Interpretation Comments COVID-19 (SARS-COV-2) (test code = 41519-6) Not Detected Not Detected INTERPRETATION: No detectable [...] its performance characteristics were verified by the [facility] molecular diagnostics laboratory and is authorized for clinical diagnostic use. This laboratory is certified under the Clinical Laboratory Improvement Amendments (CLIA) as qualified to perform high complexity clinical laboratory testing. Lab Interpretation (test code = 05284-8) Normal [facility]Coronavirus, CoVID-19, [id number] 16:40:22* Test Item Value Reference Range Interpretation Comments COVID-19 (SARS-COV-2) (test code = 16338-5) Not Detected Not Detected INTERPRETATION: No detectable [...] its performance characteristics were verified by the [facility] molecular diagnostics laboratory and is authorized for clinical diagnostic use. This laboratory is certified under the Clinical Laboratory Improvement Amendments (CLIA) as qualified to perform high complexity clinical laboratory testing. Lab Interpretation (test code = 36575-7) Normal [facility] CoVID-19, [id number] 16:40:22* Test Item Value Reference Range Interpretation Comments COVID-19 (SARS-COV-2) (test code = 79970-0) Not Detected Not Detected INTERPRETATION: No detectable [...] its performance characteristics were verified by the [facility] molecular diagnostics laboratory and is authorized for clinical diagnostic use. This laboratory is certified under the Clinical Laboratory Improvement Amendments (CLIA) as qualified to perform high complexity clinical laboratory testing. Lab Interpretation (test code = 23821-6) Normal [facility], CoVID-19, [id number] 16:40:22* Test Item Value Reference Range Interpretation Comments COVID-19 (SARS-COV-2) (test code = 94283-3) Not Detected Not Detected INTERPRETATION: No detectable [...] its performance characteristics were verified by the [facility] molecular diagnostics laboratory and is authorized for clinical diagnostic use. This laboratory is certified under the Clinical Laboratory Improvement Amendments (CLIA) as qualified to perform high complexity clinical laboratory testing. Lab Interpretation (test code = 68410-8) Normal [facility]zws[facility]FPYR-FrJ-7 RNA Resp Ql YOKASTA+aabrt5333-65-13 16:40:22* Test Item Value Reference Range Interpretation Comme nts Hospitalized? (test code = 84139-9) No ICU? (test code = 01857-6) No Symptomatic as defined by CDC? (test code = 64692-8) No Employed in Healthcare? (test code = 20423-8) Unknown Resident in a congregate care setting (including nursing homes, residential care for people with intellectual and developmental disabilities, psychiatric treatment facilities, group homes, board and care homes, homeless residential, foster care or other): (test code = 86065-4) Unknown SARS-CoV-2 RNA Resp Ql YOKASTA+probe (test code = 30681-6) NOT DETECTED Not Detected INTERPRETATION: No detectable [...] its performance characteristics were verified by the [facility] molecular diagnostics laboratory and is authorized for clinical diagnostic use. This laboratory is certified under the Clinical Laboratory Improvement Amendments(CLIA) as qualified to perform high complexity clinical laboratory testing.HHSHIV 1+2 Ab+HIV1 p24 Ag SerPl Ql [id number] 17:45:02* Test Item Value Reference Range Interpretation Comme nts HIV 1+2 Ab+HIV1 p24 Ag SerPl Ql IA (test code = 21237-0) NEGATIVE Negative TSVWOPJPBPYXO5221-39-30 23:16:25* Test Item Value Reference Range Interpretation Comme nts SALICYLATE (test code = 1575143616) <10 mg/L TRACY (test code = TRACY) Therapeutic Range: ? Analgesic and Antipyretic Use ? 20-100 mg/L ? ? Anti-Inflammatory Use ? 100-250 mg/L Toxic Range: ? Greater than 300 mg/L 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 [facility] HospitalACETAMINOPHEN2021-05-01 23:16:10* Test Item Value Reference Range Interpretation Comme nts ACETAMINOP (test code = 2372486841) <10.0 10.0-30.0 L TRACY (test code = TRACY) Toxic: Greater chela n 200 ug/mL @ 4 hour post ingestion or greater than 50 ug/mL @ 12 hour post ingestion Lab Interpretation (test code = 55491-9) Abnormal [facility] (ALB, T.PRO, BILI T, BU/BC, ALT, AST, ALK PHOS)2021-01-30 23:14:14* Test Item Value Reference Range Interpretation Comme nts TOTAL BILI (test code = 7536177204) 0.8 mg/dL 0.1-1.1 BILI UNCON (test code = 5588481763) 0.6 mg/dL 0.1-1.1 BILI CONJ (test code = 8136991342) 0.0 mg/dL 0.0-0.3 T PROTEIN (test code = 0382024610) 7.5 g/dL 6.3-8.2 ALBUMIN (test code = 0280250191) 4.8 g/dL 3.5-5.0 ALK PHOS (test code = 7021197993) 63 U/L 34-122 ALTv (test code = 1742-6) 33 U/L 5-50 AST(SGOT) (test code = 7881697532) 36 U/L 13-40 Lab Interpretation (test cod e = 54241-1) Normal [facility] (NA, K, CL, CO2, GLUCOSE, BUN, CREATININE, CA)2021-01-30 23:13:54* Test Item Value Reference Range Interpretation Comme nts NA (test code = 8309891063) 142 mmol/L 135-145 K (test code = 9712807371) 4.3 mmol/L 3.5-5.0 CL (test code = 1391500337) 105 mmol/L 98-108 CO2 TOTAL (test code = 2539043003) 25 mmol/L 23-31 AGAP (test code = 0777657148) 2-16 BUN (test code = 2917476264) 17 mg/dL 7-23 GLUCOSE (test code = 1347974880) 86 mg/dL 70-110 CREATININE (test code = 8782658601) 0.85 mg/dL 0.60-1.25 CALCIUM (test code = 5024084286) 9.9 mg/dL 8.6-10.6 eGFR (test code = 2977872590) mL/min/1.73m2 TRACY (test code = TRACY) Association [...] or urine or abnormalities in imaging tests). [facility] (IMMUNOASSAY) - COMPREHENSIVE DRUG [id number] 23:05:57* Test Item Value Reference Range Interpretation Comme nts AMPHET (test code = 2904043865) Presumptive Positive Negative A CHACORTA U (test code = 5184748940) Negative Negative BENZO U (test code = 4754056124) Presumptive Positive Negative A Cocaine Metabolite (test code = 6003158273) Negative Negative METHADONE (test code = 4721543693) Negative Negative OPIATES (test code = 8583861519) Presumptive Positive Negative A PCP (test code = 6399749664) Negative Negative THC (test code = 0425750454) Presumptive Positive Negative A TRACY (test code [...] legal testing). Lab Interpretation (test code = 46602-7) Abnormal [facility] (ID NOW RAPID TESTING)2021-01-30 22:34:55* Test Item Value Reference Range Interpretation Comme nts SARS-CoV-2 Rapid ID NOW (test code = 31724-4) Not Detected Not Detected TRACY (test code = TRACY) ID NOW COVID-19 As say is an isothermal nucleic acid amplification test intended for the qualitative detection of nucleic acid from SARS-CoV-2 viral RNA in nasopharyngeal (PARTS SALESMAN) specimens. It is used under Emergency Use [...] clinically indicated. Lab Interpretation (test code = 71681-1) Normal [facility] HospitalUrinalysis2021-05-01 22:30:19* Test Item Value Reference Range Interpretation Comme nts APPEARANCE (test code = 5320113327) Clear Clear COLOR (test code = 8907337731) Yellow Yellow PH (test code = 7617489766) 4.8-8.0 SP GRAVITY (test code = 2773478248) 1.003-1.030 GLU U QUAL (test code = 6612659787) Normal Normal BLOOD (test code = 6385953761) Negative Negative KETONES (test code = 4578383471) Negative Negative PROTEIN (test code = 2887-8) Negative Negative UROBILIN (test code = 6639050578) 2.0 mg/dL Normal A BILIRUBIN (test code = 3166427862) Negative Negative NITRITE (test code = 1667896667) Negative Negative LEUK DIONE (test code = 3404711718) Negative Negative RBC/HPF (test code = 6584622492) See_Comment [Automated messa ge] The system which generated this result transmitted reference range: 0 - 3 HPF. The reference range was not used to interpret this result as normal/abnormal. WBC/HPF (test code = 7731092064) <1 See_Comment [Automated [employer] ge] The system which generated this result transmitted reference range: 0 - 5 HPF. The reference range was not used to interpret this result as normal/abnormal. BACTERIA (test code = 9897387301) Negative Negative SQ EPITH (test code = 9209847424) <1 HPF Lab Interpretation (test code = 41031-4) Abnormal [facility]CBC with Fdhemlappmoa3280-00-72 22:19:35* Test Item Value Reference Range Interpretation [...] 34.6 g/dL 31.2-35.0 RDW-SD (test code = 68678-3) 42.8 fL 38.5-51.6 RDW-CV (test code = 788-0) 13.3 % 12.1-15.4 PLT (test code = 777-3) See_Comment H [Automated messa ge] The system which generated this result transmitted reference range: 150 - 328 10*3/?L. The reference range was not used to interpret this result as normal/abnormal. MPV (test code = 35629-8) 9.9 fL 9.8-13.0 NRBC/100 WBC (test code = 8729088571) See_Comment [Automated [employer] ssage] The system which generated this result transmitted reference range: 0.0 - 10.0 /100 WBCs. The reference range was not used to interpret this result as normal/abnormal. NRBC x10^3 (test code = 9988796975) <0.01 See_Comment [Automated [employer] ge] The system which generated this result transmitted reference range: 10*3/?L. The reference range was not used to interpret this result as normal/abnormal. GRAN MAT (NEUT) % (test code = 770-8) 79.2 % IMM GRAN % (test code = 9445440715) 0.50 % LYMPH % (test code = 736-9) 14.8 % MONO % (test code = 5905-5) 4.9 % EOS % (test code = 713-8) 0.2 % BASO % (test code = 706-2) 0.4 % GRAN MAT x10^3(ANC) (test code = 2020967434) 9.77 10*3/uL 1.99-6.95 H IMM GRAN x10^3 (test code = 4468252129) 0.06 10*3/uL 0.00-0.06 LYMPH x10^3 (test code = 731-0) 1.82 10*3/uL 1.09-3.23 MONO x10^3 (test code = 742-7) 0.60 10*3/uL 0.36-1.02 EOS x10^3 (test code = 711-2) 0.03 10*3/uL 0.06-0.53 L BASO x10^3 (test code = 704-7) 0.05 10*3/uL 0.01-0.09 Lab Interpretation (test code = 48274-5) Abnormal [facility] [id number] 20:48:00* Test Item Value Reference Range Interpretation Comme nts COVID 19 INHOUSE AG (test co de = [id number]) NEGATIVE URINALYSIS XVWOOJPO7246-25-63 16:11:00* Test Item Value Reference Range Interpretation [...] Urine Source? Clean CatchDRUGS OF ABUSE SCREEN BH8438-26-48 16:11:00* Test Item Value Reference Range Interpretation [...] result as normal/abnormal. Urine Source? Clean CatchURINALYSIS FGQQWZSH4884-62-51 15:45:00* Test Item Value Reference Range Interpretation [...] Urine Source? Clean CatchDRUGS OF ABUSE SCREEN [id number] 15:45:00* Test Item Value Reference Range Interpretation Comme nts URN COCAINE (test code = COCAURN) NEGATIVE See_Comment [Automated [employer]] The system which generated this result transmitted reference range: <300 ng/mL. The reference range was not used to interpret this result as normal/abnormal. URN CANNABINOIDS (test code = CANNABURN) NEGATIVE See_Comment [Automated [employer]] The system which generated this result transmitted reference range: <50 ng/mL. The reference range was not used to interpret this result as normal/abnormal. URN AMPHETAMINE (test code = AMPHETURN) NEGATIVE See_Comment [Automated [employer] hay] The system which generated this result [...] result as normal/abnormal. Urine Source? Clean CatchURINALYSIS [id number] 14:21:00* Test Item Value Reference Range Interpretation [...] Urine Source? Clean CatchDRUGS OF ABUSE SCREEN [id number] 14:21:00* Test Item Value Reference Range Interpretation [...] result as normal/abnormal. Urine Source? Clean CatchURINALYSIS [id number] 14:18:00* Test Item Value Reference Range Interpretation [...] Urine Source? Clean CatchDRUGS OF ABUSE SCREEN [id number] 14:18:00* Test Item Value Reference Range Interpretation Comme nts URN COCAINE (test code = COCAURN) See_Comment [Automated messa ge] The system which generated this result transmitted reference range: <300 ng/mL. The reference range was not used to interpret this result as normal/abnormal. URN CANNABINOIDS (test code = CANNABURN) See_Comment [Automated [employer] hay] The system which generated this result [...] as normal/abnormal. Urine Source? Clean CatchBASIC METABOLIC [id number] 12:13:00* Test Item Value Reference Range Interpretation [...] CA) 9.9 mg/dL 8.5-10.1 N HEPATIC FUNCTION [id number] 12:13:00* Test Item Value Reference Range Interpretation [...] reference range due to change in reagent. [id number] 12:13:00* Test Item Value Reference Range Interpretation Comme nts ACETAMINOPHEN (test code = ACET) < 10 mcg/mL 10-30 L A RANGE OF 10-30 mcg/mL IS A THERAPEUTIC RANGE. TOXIC CONCENTRATIONS: >150 mcg/mL AT 4 HOURS AFTER INGESTION >= 50 mcg/mL AT 12 HOURS AFTER INGESTION BGNGCRKCQN8321-03-28 12:13:00* Test Item Value Reference Range Interpretation Comme nts SALICYLATE (test code = RENALDO) < 3.0 mg/dL 2.8-20.0 N [id number] 12:13:00* Test Item Value Reference Range Interpretation [...] ANADDITIONAL CHARGE TO THE PATIENT. CBC W/O [id number] 11:49:00* Test Item Value Reference Range Interpretation [...] 9.7 fL 6.7-11.0 N COVID 19 INHOUSE [id number] 00:12:00* Test Item Value Reference Range Interpretation Comme nts COVID 19 INHOUSE AG (test co de = [id number]) NEGATIVE URINALYSIS [id number] 20:58:00* Test Item Value Reference Range Interpretation [...] Urine Source? Clean CatchDRUGS OF ABUSE SCREEN [id number] 20:58:00* Test Item Value Reference Range Interpretation Comme nts URN COCAINE (test code = COCAURN) NEGATIVE See_Comment [Automated [employer]] The system which generated this result transmitted reference range: <300 ng/mL. The reference range was not used to interpret this result as normal/abnormal. URN CANNABINOIDS (test code = CANNABURN) NEGATIVE See_Comment [Automated [employer] hay] The system which generated this result transmitted reference range: <50 ng/mL. The reference range was not used to interpret this result as normal/abnormal. URN AMPHETAMINE (test code = AMPHETURN) NEGATIVE See_Comment [Automated [employer] hay] The system which generated this result transmitted reference range: <1000 ng/mL. The reference range was not used to interpret this result as normal/abnormal. URN BARBITURATE (test code = BARBITURN) NEGATIVE See_Comment [Automated [employer] hay] The system which generated this result [...] (test code = OPIATURN) NEGATIVE See_Comment [Automated [employer]] The system which generated this result [...] as normal/abnormal. Urine Source? Clean CatchBASIC METABOLIC [id number] 20:58:00* Test Item Value Reference Range Interpretation [...] CA) 8.8 mg/dL 8.5-10.1 N HEPATIC FUNCTION [id number] 20:58:00* Test Item Value Reference Range Interpretation [...] reference range due to change in reagent. [id number] 20:58:00* Test Item Value Reference Range Interpretation Comme nts TROPONIN-I (test code = TROPI) < 0.006 ng/mL 0-0.045 N [id number] 20:58:00* Test Item Value Reference Range Interpretation Comme nts ACETAMINOPHEN (test code = ACET) < 10 mcg/mL 10-30 L A RANGE OF 10-30 mcg/mL IS A THERAPEUTIC RANGE. TOXIC CONCENTRATIONS: >150 mcg/mL AT 4 HOURS AFTER INGESTION >= 50 mcg/mL AT 12 HOURS AFTER INGESTION [id number] 20:58:00* Test Item Value Reference Range Interpretation Comme nts SALICYLATE (test code = RENALDO) < 3.0 mg/dL 2.8-20.0 N [id number] 20:58:00* Test Item Value Reference Range Interpretation [...] TO THE PATIENT. - CT HEAD/BRAIN W/O [id number] 20:52:00 [facility]Name: TEJ GUADALUPE : 1985 Sex: M Name: TEJ GUADALUPE [facility] : 1985 Age/S: 35 / M [address] [facility] Unit #: [id number] Loc: DEISY Saenz [address] Phys: Shaggy Morrow MD Acct: [id number] Dis Date: Status: PRE ER PHONE#: [phone] Exam Date: 12/13/20202017 FAX #: [phone] Reason: CONFUSION EXAMS: CPT CODE: [id number] CT HEAD/BRAIN W/O CONT 60975 HISTORY: CONFUSION TECHNIQUE: Noncontrast 2.5 mm axial [...] RT(R)(CT) CTDI: DLP: Trnscb Date/Time: 12/13/2020 (2051) Ioana.RR31 Orig Print D/T: S: 12/13/2020 (2054) PAGE 1 Signed ReportURINALYSIS [id number] 20:39:00* Test Item Value Reference Range Interpretation [...] Urine Source? Clean CatchDRUGS OF ABUSE SCREEN [id number] 20:39:00* Test Item Value Reference Range Interpretation Comme nts URN COCAINE (test code = COCAURN) See_Comment [Automated messa ge] The system which generated this result transmitted reference range: <300 ng/mL. The reference range was not used to interpret this result as normal/abnormal. URN CANNABINOIDS (test code = CANNABURN) See_Comment [Automated [employer] hay] The system which generated this result [...] result as normal/abnormal. Urine Source? Clean CatchURINALYSIS [id number] 20:29:00* Test Item Value Reference Range Interpretation [...] Urine Source? Clean CatchDRUGS OF ABUSE SCREEN [id number] 20:29:00* Test Item Value Reference Range Interpretation [...] as normal/abnormal. Urine Source? Clean CatchCBC W/O [id number] 20:22:00* Test Item Value Reference Range Interpretation [...] Notes Date/Time Note Provider Source 2022-06-01 16:47:23 9068-60-03B72:47:23A ssociated Order(s): CONSULT TO PHARMACY-AMINOGLYCOSIDESFormatt ing of this [...] with any questions. Sil Soliz, Pharm.D., BCIDPClinical Corn Chip Maker - Infectious DiseasesCisco: [id number] signed by Sil SolizCOXHEALTH at 06/01/2022 4:48 PM TGT44272-0Titxjhn majwUC3924-16-57T04:48:27Consul t noteTXT1.2.840.727493.1.13.43.2 .7.2.020015|[id number] le for patient gdpp81962-8Ebptmvk knjhSA558971647Hfklfjg Jelani Soliz [id number] 7VABH3871-09-00Z21:48:271.2.840 .242785.1.72.3.15|1.2.840.02997 0.1.13.43.2.7.2.727879_[id number] 31 Sil Soliz [facility] 2022-05-31 16:00:25 0963-87-56E34:00:25F ormatting of this note is different from the original.Pharmacy Aminoglycoside Monitoring NoteIndication: NTM SSTI/abscessDay [...] with any questions. Sil Soliz, Pharm.D., BCIDPClinical Corn Chip Maker - Infectious DiseasesCisco: [id number] signed by Sil Soliz [facility] at 05/31/2022 4:00 PM WJT39039-9Prdlfnu wkbrYY0060-90-44R69:00:59Consul t noteTXT1.2.840.345598.1.13.43.2 .7.2.675059|[id number] for patient dhpe01944-7Vwhtutk [facility] [facility] RegionIyunGdpbmzzNrvvyehZPSN420663347 0ULMZ6418-66-06S68:00:591.2.840 .741438.1.72.3.15|1.2.840.82365 0.1.13.43.2.7.2.727879_[id number] 47 [facility] 2022-05-30 14:28:02 5805-51-17M85:28:02F ormatting of this note is different from the original.Pharmacy Aminoglycoside Monitoring NoteIndication: NTM SSTI/abscessDay [...] with any questions. Sil Soliz, Pharm.D., BCIDPClinical Corn Chip Maker - Infectious DiseasesCisco: [id number] signed by Sil Soliz [facility] at 05/30/2022 2:36 PM LGY40978-2Zmyauxn rjmwSE8556-14-05Z05:36:01Consul t noteTXT1.2.840.412927.1.13.43.2 .7.2.764488|[id number] for patient fcrw56314-5Wyobhen [facility] [facility] Th[facility] RegionKvfkOrpjgsvLwdxrrfRZDF810972861 0SJZM1167-05-43I75:36:011.2.840 .314687.1.72.3.15|1.2.840.71229 0.1.13.43.2.7.2.727879_[id number] 11 [facility] 2022-05-29 12:08:26 8879-46-64M31:08:26F ormatting of this note is different from the original.Pharmacy Aminoglycoside Monitoring NoteIndication: NTM SSTI/abscessDay [...] with any questions. Mariam Lepe [facility].BCOPClinical Corn Chip Maker Hematology/OncologyCisco : [phone] signed by Mariam Lepe [facility] at 05/29/2022 12:09 PM FTG99234-7Cfrqoir mumpYC3700-64-17B77:09:49Consul t noteTXT1.2.840.401914.1.13.43.2 .7.2.810919|[id number] for patient cgeg22751-0Snmdrqc gmjpDU14070288Njzwsdp[address]TXTX[address] 2NJDQ0653-36-56K97:09:491.2.840 .956020.1.72.3.15|1.2.840.78749 0.1.13.43.2.7.2.727879_[id number] 42 [facility] 2022-05-28 10:27:53 3820-88-44K77:27:53F ormatting of this note is different from the original.Pharmacy Aminoglycoside Monitoring NoteIndication: NTM SSTI/abscessDay of therapy: 4 Target concentration: dosing per Ophiem nomogram, targeting goal peak ~25-45 mcg/mL, trough [...] with any questions. Mariam Lepe [facility].BCOPClinical Corn Chip Maker Hematology/OncologyCisco : [phone] signed by Mariam Lepe [facility] at 05/28/2022 10:29 AM AZE83699-6Snwoknp ichrPV2328-13-18D98:29:36Consul t noteTXT1.2.840.380009.1.13.43.2 .7.2.972416|[id number] for patient hiib05385-4Picwdle [facility] [facility] RegionUpdxMjseedtUkeisieMCDZ283305945 1OWOM6437-06-12R21:29:361.2.840 .148427.1.72.3.15|1.2.840.79222 0.1.13.43.2.7.2.727879_[id number] 61 [facility] 2022-05-27 12:23:47 7072-33-72W80:23:47F ormatting of this note is different from the original.Pharmacy Aminoglycoside Monitoring NoteIndication: NTM SSTI/abscessDay [...] us with any questions. Ruchi Olsen, PharmD, [facility]ITALCPPhone: [phone] signed by Ruchi OlsenCOXHEALTH at 05/27/2022 1:04 PM MGR11546-9Qybsxxw zkehGY1836-63-09Q78:04:50Consul t noteTXT1.2.840.132649.1.13.43.2 .7.2.305220|0380731346TQGuycgqj for patient sebd15124-6Wytbnle kblySG097869954Oefj Raúl [address]TXTX[address] 1ZHUN2659-81-89V64:04:501.2.840 .228413.1.72.3.15|1.2.840.81799 0.1.13.43.2.7.2.727879_[id number] 11 Ruchi Olsen [facility] 2022-05-26 09:18:39 9223-88-12C53:18:39F ormatting of this note is different from the original.Pharmacy Aminoglycoside Monitoring NoteIndication: NTM SSTI/abscessDay of therapy: 2 Target concentration: dosing per Ophiem nomogram, targeting goal peak ~25-45 mcg/mL, trough ~5 mcg/mL Concomitant antibiotics: Azithromycin, tigecyclineAllergies: No known allergies Pertinent Objective Labs: Date dose/frequency concentration (peak/trough/random) 8/25 800mg q24h 5.9 (9h random) Microbiology:pending Assessment:1. CrCl: >120,Scr/BUN stable, 2. Continues on amikacin 800mg (10mg/kg) q24h 3. Random 9h level obtained today demonstrates dose appropriate per Ophiem nomogramPlan: 1. Will Continue current dose2. Labs Ordered: will order 2 levels: 2-h and 8-h post dose levels to confirm Thank you for the opportunity to participate in the care of this patient. Please do not hesitate to contact us with any questions. Ruchi Olsen, PharmD, [facility]ITALPhone: [phone] signed by Ruchi Olsen, [facility] at 05/26/2022 9:36 AM LIJ97108-0Vylbzis ixouEP5651-45-23J37:36:50Consul t noteTXT1.2.840.308389.1.13.43.2 .7.2.243584|[id number] for patient caek62322-6Lscteuz [address]TXTX[address] 0JFNU0181-69-48A78:36:501.2.840 .679692.1.72.3.15|1.2.840.71442 0.1.13.43.2.7.2.727879_[id number] 20 [facility] 2022-05-25 08:07:02 6528-25-60A50:07:02A ssociated Order(s): IP CONSULT TO INFECTIOUS DISEASE Images [...] another attempt at antibiotics and I&D at [facility]. He came back with worsening lesions and was admitted for same. We are consulted for his cultures growing AFB 4+. This chronic wound not responding to antibiotics is typical for an NTM infection and we will attempt to treat#NTM infection, cutaneous- I have discussed with Ludwig, isolate will be sent immediately to [facility] for ID and sensis- growth from a [...] this fascinating caseArash Obando MD, PhD [facility] Infectious DiseasesProvider #[id number] 2021 8:09 AM H istory Obtained From: [...] homeless. [place] of [place] recently and does not have any sick [...] and documented in the appropriate sections in [facility].Immunization history: There is no immunization history [...] Data: All labs, images, and data reviewed. 51289-0Ycajdfn oiroJZ5440-27-88R19:04:27Consul t noteTXT1.2.840.156749.1.13.43.2 .7.2.666288|7786857473VMApwhmwz for patient xsjd63227-7Nvyualt [facility] [facility] RegionWdipTkmzqytOrlhryiVVEP773585622 5GMAB8851-13-55Q14:04:271.2.840 .939065.1.72.3.15|1.2.840.52067 0.1.13.43.2.7.2.727879_[id number] 10 [facility] 2022-05-23 21:39:21 8616-35-66M55:39:21A ssociated Order(s): IP CONSULT TO HAND SURGERY Plastic [...] obtained and negative- PRS will continue to followChrisJUAN Nicklastic and Reconstructive Surgery, HOP5EudcxpBroadway Community HospitalPager: [phone] 2021 9:39 PMSubjective: Chief Complaint: forearm painHistory [...] with no changes. No need to repeat 97575-6Plgyirh ashaAW891826SzosblprvwAdrian Anderson B1.2.840.260671.1.13.43.2.7.2.8 83950BckuvwcdwmDxlboRiakl BDS5124-60-31W99:42:00Consult noteTXT1.2.840.579998.1.13.43.2 .7.2.298823|9544462615KIEupljav for patient gxah88615-3Dtbffch noteLNMercy Hospital2525 Natalie BushXsdsNskdqpnAoiiocmFDBW888750714 8YBHD7742-01-48A01:50:061.2.840 .469439.1.72.3.15|1.2.840.90877 0.1.13.43.2.7.2.727879_[id number] 43 [facility] History and Physical Notes Date/Time Note Provider Source 2022-05-23 22:01:59 4668-72-77E15:01:59F ormatting of this note is different from the original.Medicine Team B Admission History [...] CODEEmergency Contact: Primary Emergency Contact: Lydia GUADALUPE, Eran Orxgx [facility] IHW8SlanxbBroadway Community Hospital10:02 PM, 05/23/2022 Chief Complaint: forearm pain [...] Please see my separate note for my attestation.73891-1Lkaylzl and physical aljuDX770156Eozvt, Hank1.2.840.194643.1.13.43.2. 7.2.163066BiyavAphsdkS, TC1434-43-23V31:10:26History and physical noteTXT1.2.840.988647.1.13.43.2 .7.2.899610|4956737698QFIvsmtkm for patient tyaq49513-9Qursaqn and physical noteLNInternal MedicineInternal MedicineMercy Hospital25[address] [facility] RegionIlctGagouvyCkmxnfgBFGO320826174 2CUKB5924-47-30O11:10:261.2.840 .731824.1.72.3.15|1.2.840.06970 0.1.13.43.2.7.2.727879_[id number] Internal Medicine [facility] Procedure Notes Date/Time Note Provider Source 2022-05-31 08:35:51 4324-33-35A61:35:51P rocedure(s): I& D OF ABSCESS WITH PACKING (COMPLICATED)Pre-Procedure [...] well and there were no complicationsChristopher Germán L.V. ST[facility] HOSPITALlastic and Reconstructive Surgery, WGQ8DrsuxxBroadway Community HospitalPager: [phone] 2021 8:36 AM 76254-1Diewfzxgr amdcMF600226Ja, Jessie1.2.840.490061.1.13.43.2.7.2.83 7172PaGdrkcsDF8944-03-97Z94:00:54Proc [facility] noteTXT1.2.840.475362.1.13.43.2.7.2.7 44572|7487382299KPIhypdzouq for patient jlrw23594-8Cxeecnqga noteLNMercy Hospital25[address] [facility] Th[facility] RegionFuglZjnpbhqUxbkbpxYHAB0604644248RKZQ3 281-22-81Q96:49:121.2.840.726562.1.72 .3.15|1.2.840.153723.1.13.43.2.7.2.72 7879_[id number] [facility] 2022-05-24 16:29:09 1406-66-60C50:29:09P rocedure(s): I& D OF ABSCESS WITH PACKING (COMPLICATED); [...] 1Dressings: AppliedEstimated Blood Loss: MinimalSpecimens Collected: Culture a2Iqbbumitueckn: nonePrimary Proceduralist: MULU Crarilloupervising Physician: JUAN Andersonrocedure in Detail: The patient's [...] and sent to the microbiology lab.Gabe Dunlap, L.V. [facility]ORIAL HOSPITALlastic and Reconstructive Surgery, UFL4CvyargBroadway Community HospitalPager: [phone] 2021 4:30 PM 72343-6Yoxmwmrle pwzxMD849234LabpkhdeqnAdrian Anderson B1.2.840.876184.1.13.43.2.7.2.162079M [facility] hospitalcevichMarcoAnd AHH6887-61-04K47:42:01Procedure noteTXT1.2.840.149772.1.13.43.2.7.2.7 81141|0675309061EPEtafhwwzs for patient trce05051-4Aemljnpmq noteLNMercy Hospital25[address] [facility] Thumb RegionXspaVgwfrbdBacogdmSIRU4069726744FROV3 130-58-32G56:41:491.2.840.586013.1.72 .3.15|1.2.840.049619.1.13.43.2.7.2.72 7879_[id number] [facility] Notes Date/Time Note Provider Source 2023-11-01 14:19:23 6293-15-22Y96:19:23 Chief ComplaintPatient presents withAnxietyRefill RequestPast Medical History:Diagnosis [...] [place] [address]-3Qnpyknvvd department HaryVX4571-55-64I10:20:13[facility] NoteTXT1.2.840.163077.1.13.104.2.7.2.7 11267|[id number] for patient jmlb13352-1NxweCYNQTEWQRUGUoowibbyh C-CDA narrative yypj665600092Vbvnyteg M Felix RNUT[address] QosoHbtljxmthNblcllpezXUXF0927996521YU TPYPJAFHWBMJFGONLIFV6241-19-78N41:20:1 31.2.840.602850.1.72.3.15|1.2.840.1143 50.1.13.104.2.7.2.727879_[id number] Kelly Spence RN [facility] 2023-11-01 13:00:35 6558-76-41Z75:00:35 Patient to ED for anxiety due to doesn't have any of his clonazepam 2mg tabs anymore. He recently lost his grandmother and grandfather and been taking more than he is supposed to. He has been in withdrawal for 5 days. 84812-7Fbjmrknus department Triage lwzsUH8306-53-47I83:01:57Emer[facility] Triage noteTXT1.2.840.428206.1.13.104.2.7.2.7 07420|2296900687OJQikvlgrxt for patient kezp80820-5Fqprcdfsj department NoteLNNARRATIVEFormatted C-CDA narrative sgqw749990292Kordzzs Austyn Hawkins RNUT[address] StreetTXTX[address]US TJNSEZGTBCVIOGEPNAUS4649-03-29Z67:01:5 71.2.840.001800.1.72.3.15|1.2.840.1143 50.1.13.104.2.7.2.727879_[id number] Chucky Hawkins RN [facility] 2023-10-02 12:30:00 8589-64-47I93:30:00 Pt given printed and verbal discharge instructions [...] with steady gait, in no apparent distress. 50560-5Bvakawovw department XamtAG3193-49-27J55:30:56[facility] department NoteTXT1.2.840.025169.1.13.104.2.7.2.7 96287|9971966045BGDbkkqggbk for patient gamn60718-4SnnrRHEXOLXOVXVVzispohnw C-CDA narrative taaa019281627Iznkz M Martinez RNUT[address] StreetTXTX[address]7555US QIRICZCLPPZBFWSQIKPF0121-88-92B89:30:5 61.2.840.130486.1.72.3.15|1.2.840.1143 50.1.13.104.2.7.2.727879_[id number] Ayah Butt RN [facility] 2023-10-02 11:56:31 9305-59-93M79:56:31 Patient states: "I came here yesterday and checked in but I left. I'm detoxing off klonopin. I wanted to know if yall can refill it. My doctor doesn't do klonopin anymore." 55314-0Hgirridps department Triage caxwRT4394-43-91Q18:57:33[facility] Triage noteTXT1.2.840.564450.1.13.104.2.7.2.7 54695|3274099178EQHigdrgigg for patient ckid07965-6Taskwmirk department NoteLNNARRATIVEFormatted C-CDA narrative bztj944805950Vtyfv M Cruz RN[address] BvgkVlakurlzcSujphfbstYSVB1009435851BD YNLOKHBVGLMDTHGQDOGR9416-68-34U66:57:3 31.2.840.116364.1.72.3.15|1.2.840.1143 50.1.13.104.2.7.2.727879_[id number] Elisabeth Soto RN [facility] 2023-10-02 11:43:00 7442-10-40D56:43:00 [facility] Emergency Department NotePatient Name: Tej Reyna of : 1985 38 year old maleTreatment Room: [facility] ED [facility] Record Number: [id number] Care Physician: Rene Smith (Inactive)Patient Escorted by: [...] Complaint:Chief ComplaintPatient presents withOtherMedication refillHistory of Present Illness:JMD84mo M with anxiety and prescribed klonopin 2mg presents today needing refill. He states he is not doing good, feels his heart racing and keeps breaking out into sweats. He states he is trying to get ahold of [facility] and anybody else who can see him. [...] 1 mgFirst Provider Eval:ED EventsDate/Time Event User Uybxwtje44/01/24 1207 Medical Screening Begins DEB BURGOS MD [...] on fileFollow-up:Electronically signed by:Deb Burgos DO10/02/23 1220 98845-1Nsqpafeov Emergency department KbunUN0927-23-70Q58:20:50Physician Emergency department NoteTXT1.2.840.564636.1.13.104.2.7.2.7 46143|8570145737ERDxfzcpscd for patient adau35995-5Wlhsjfmrf department NoteLNNARRATIVEFormatted C-CDA narrative text[address]vestonTXTX[address]75[address]US ACBJXRRJGEHFLAVTOSPM8394-35-76N07:20:5 01.2.840.336691.1.72.3.15|1.2.840.1143 50.1.13.104.2.7.2.727879_[id number] [facility] 2023-09-28 19:25:10 7040-34-90M03:25:10 Pt unable to be located. Never was seen by provider. 83736-6Tnydwgjrw department IsuhMJ6592-23-95N52:25:28[facility] department NoteTXT1.2.840.675926.1.13.104.2.7.2.7 70342|[id number] for patient bwqc94528-2UhrdMLPKDDAOMFVNbvgpihnm C-CDA narrative snwy849318868Noyhda D Roman RNUT[address]vestonTXTX[address]75[address]US TRYYNPRGTTXDNIMVMEMK8350-78-02X09:25:2 81.2.840.231916.1.72.3.15|1.2.840.1143 50.1.13.104.2.7.2.727879_[id number] Medina Presley RN [facility] 2023-09-28 18:17:15 8438-73-12L53:17:15 Pt's states his doctor quit prescribing his [...] something and he won't prescribe me any." 24657-6Wtvnvcgni department Triage nhffCU0620-74-57X68:19:10[facility] Triage noteTXT1.2.840.328604.1.13.104.2.7.2.7 89964|[id number] for patient pkdn40105-0Tyfrrwysr department NoteLNNARRATIVEFormatted C-CDA narrative [id number] Fief RN[address]Lp[id number] SRDSLDNFHPUBHNKSDEHL6421-19-75P23:19:1 01.2.840.080767.1.72.3.15|1.2.840.1143 50.1.13.104.2.7.2.727879_[id number] Liset Blancas RN [facility] 2023-09-28 18:09:00 8516-35-84K50:09:00 Images from the original note were not included.Patient never seen by Ellen patel was compiled from his recent PDMP records:Dyana Jorgensen MD09/28/231922Dyana Jorgensen MD09/28/231922 81916-0Cucxwnvdw Emergency department IcuzOS2490-33-34E69:23:40Physician Emergency department NoteTXT1.2.840.091504.1.13.104.2.7.2.7 57090|[id number] for patient tkbi81574-1Wwznvxeak department NoteLNNARRATIVEFormatted C-CDA narrative textUT[address] Sd[id number] LDVRSJUGWVXXZZAGXKGU7220-99-06W26:23:4 01.2.840.873906.1.72.3.15|1.2.840.1143 50.1.13.104.2.7.2.727879_[id number] [facility] 2022-06-03 18:30:00 3561-57-46Y06:30:00 Gave pt appointments, provided wound care, paper prescriptions were delivered via doctor bedside, taught about s/s of infection, removed IV, pt left with belongings via transport, no distress noted.Gave pt 3 weeks of wound care supplies.Pt left via [employer]. ironworker wire fence erector provided instructions on how to request a [employer]ft.No needs at this time. [id number] Note1.2.840.912993.1.13.43.2.7.4.72947 0.71826364-75-85F69:18:43Flowsheet NoteTXT1.2.840.364338.1.13.43.2.7.2.72 7879|7518180141FINcoowqvdq for patient lxap25839-6OuofXL742770651Kxysyzo [facility]2525 [facility] RegionFagcFrewoygKktlpnjICOV4273294741NARR31 23-06-02T19:18:431.2.840.336698.1.72.3 .15|1.2.840.442177.1.13.43.2.7.2.01943 9_[id number] [facility] 2022-06-03 18:30:00 7812-72-09L31:30:00 Problem: Hospital Acquired Venous Thromboembolism (VTE)Goal: Absence [...] deep vein thrombosis or pressure ulcers.Outcome: Resolved [id number] of Care1.2.840.486509.1.13.43.2.7.4.08933 0.65207564-24-65P75:47:16Plan of CareTXT1.2.840.807273.1.13.43.2.7.2.72 7879|2329572568MOYnilnospd for patient havk42131-9OkpgLEELRYjvdftNorth General Hospital2525 [facility] RegionMxocKmwphklHcsafowHVME1102573963JOOI32 23-06-02T18:47:161.2.840.079849.1.72.3 .15|1.2.840.011009.1.13.43.2.7.2.58397 9_[id number] [facility] 2022-06-03 17:38:37 3187-86-93D80:38:37 06/03/22 1737 Intervention Financial Needs Other (Comment)([facility] SELF-PAY/SELF-PAY SCREENED) Referral Data Referral Reason [...] wound care supplies.Glory JORDANN ACM-RNEC Nurse Case ManagerCinc[facility] / [facility]# [phone] 6003073Ugrggjvts Note1.2.840.155191.1.13.43.2.7.4.53966 0.79680164-26-29K13:49:49Flowsheet NoteTXT1.2.840.696616.1.13.43.2.7.2.72 7879|4514809845ZGTbtwggran for patient gwbc44695-6HumkES226763890Thopyvbin D Real RNMercy Hospital[address] [place], [place] [address]Ql[id number] 23-06-02T17:49:491.2.840.206323.1.72.3 .15|1.2.840.326393.1.13.43.2.7.2.64542 9_[id number] Glory Tran RN [facility] 2022-06-03 04:38:15 5171-66-16M60:38:15 Problem: Hospital Acquired Venous Thromboembolism (VTE)Goal: Absence [...] to perform desired activities.Outcome: Met This Shift 7356170Uujy of Care1.2.840.953243.1.13.43.2.7.4.28206 0.96894991-94-91B72:38:19Plan of CareTXT1.2.840.599988.1.13.43.2.7.2.72 7879|5950958019VDCjbzxovdz for patient rfgr83239-3DfnrYK012781147SihrbchMartin Memorial Hospital[address] [place], [place] [address]OkfqRobqdgmQkielhjRCSD8545068440KGDT20 23-06-02T04:38:191.2.840.520470.1.72.3 .15|1.2.840.809173.1.13.43.2.7.2.95634 9_[id number] Kristine Melgoza [facility] 2022-06-02 19:47:16 0327-05-33Y52:47:16 Problem: Hospital Acquired Venous Thromboembolism (VTE)Goal: Absence [...] thrombosis or pressure ulcers.Outcome: Met This Shift 9834985Hsef of Care1.2.840.811799.1.13.43.2.7.4.68043 0.12770868-40-35P22:47:18Plan of CareTXT1.2.840.746949.1.13.43.2.7.2.72 7879|1168054214OTYxaefdmbe for patient oari21620-8GbvrPYAIWEjtcci Health Cpiamm6855 [facility] RegionPhqhAuypbdmSaeeipcUVZG9697061977AJYW91 23-06-019:47:181.2.840.967499.1.72.3 .15|1.2.840.997139.1.13.43.2.7.2.68741 9_[id number] [facility] 2022-06-02 04:02:37 1811-84-30Y42:02:37 Problem: Hospital Acquired Venous Thromboembolism (VTE)Goal: Absence [...] to perform desired activities.Outcome: Met This Shift 5768103Bisr of Care1.2.840.437559.1.13.43.2.7.4.72866 0.03485506-04-95V62:02:40Plan of CareTXT1.2.840.826680.1.13.43.2.7.2.72 7879|2917436769UEJmjpxirar for patient njpx92727-3HdgrWTXDXZoqjqb Health Supdnh6915 [facility] RegionVegqXpcfbxhPrvojowAVXK5065725948IAZC04 23-06-01T04:02:401.2.840.157433.1.72.3 .15|1.2.840.519714.1.13.43.2.7.2.10212 9_[id number] [facility] 2022-06-01 16:07:00 7176-82-17G71:07:00 Problem: Hospital Acquired Venous Thromboembolism (VTE)Goal: Absence [...] Be Safe And ComfortableOutcome: Met This Shift 3643087Rktg of Care1.2.840.686577.1.13.43.2.7.4.99065 0.03370072-60-79C26:07:12Plan of CareTXT1.2.840.141909.1.13.43.2.7.2.72 7879|9165557152YLEuahmbsia for patient pnwp81847-5QvjlTCXZUEoebol Health Hmwdxz2520 [facility] RegionNbtzHvudvbkQbmzspoQNSQ4546112910JLBQ76 23-05-31T16:07:121.2.840.945604.1.72.3 .15|1.2.840.920937.1.13.43.2.7.2.81801 9_[id number] [facility] 2022-06-01 16:04:25 8288-00-24A47:04:25 06/01/22 1602 Intervention Coordination of Care Multidisciplinary team(S/p I+D of 4x abscesses on 05/25 and 05/31.infection) Disease Management Meets criteria for Inpatient Medical Necessity Screening Concurrent review([id number]) Oumou Villa MSN, BSN, [facility]-RNClinical Nurse Case [phone] 4531640Wpfvwbvaq Note1.2.840.499429.1.13.43.2.7.4.74909 0.74121358-28-21I40:04:51Flowsheet NoteTXT1.2.840.456685.1.13.43.2.7.2.72 7879|8226730178NQSbxvptivb for patient lgux06217-0JxtjQW475924930Ecqeihg Okolie RNMercy Hospital[address] [place], [place] [address]MdstXaklqxnNivcxtpWSDT1445969393VXYQ35 23-05-31T16:04:511.2.840.809169.1.72.3 .15|1.2.840.200715.1.13.43.2.7.2.07119 9_[id number] Oumou Villa RN [facility] 2022-06-01 05:30:00 1365-42-38E31:30:00 Problem: Falls / InjuryGoal: Absence of fall [...] new arrhythmias (if applicable).Outcome: Met This Shift 8405477Ubqb of Care1.2.840.262186.1.13.43.2.7.4.33814 0.21140276-98-72H21:50:41Plan of CareTXT1.2.840.379887.1.13.43.2.7.2.72 7879|6875541644JTBgegizzfg for patient iiqv38724-3XxltKZ131623713Yemcwv Osondu RN[address]TXTX[address]05477054USUS20 23-05-3107:50:411.2.840.722925.1.72.3 .15|1.2.840.328338.1.13.43.2.7.2.12775 9_[id number] Jessika Connolly RN [facility] 2022-05-31 16:17:37 2825-70-60C21:17:37 Problem: Hospital Acquired Venous Thromboembolism (VTE)Goal: Absence [...] swelling, drainage, and pain.Outcome: Met This Shift 8403806Jxkv of Care1.2.840.991025.1.13.43.2.7.4.33120 0.06417037-54-22Z53:17:53Plan of CareTXT1.2.840.067423.1.13.43.2.7.2.72 7879|4287388226ZPHchjayivj for patient eqnk49210-1KxosWRIKFQkjczgNorth General Hospital2525 [facility] RegionAjiwBnbrqadUfisudxFTZI9893431137DDMR52 23-05-30T16:17:531.2.840.905054.1.72.3 .15|1.2.840.541788.1.13.43.2.7.2.72302 9_[id number] [facility] 2022-05-31 10:15:18 5704-30-99U34:15:18 Nutrition Screen by Financial Sales Professional, RegisteredNutrition Screen re: LOS x 7 days.Tej [...] and nutrition related labsAvailable/Consult PRNSignature:Kelly Boo DTR [phone]: [phone] see Dietitian Note(s) in Plan of Care. 4770173Sqme of Care1.2.840.007522.1.13.43.2.7.4.05295 0.43108182-07-53O42:15:12Plan of CareTXT1.2.840.261117.1.13.43.2.7.2.72 7879|8692354771XZUgcvstnto for patient yrjo94634-1XofwNNPbhsqtsscLnuiuyaupSMK [facility] Kxlsxx7732 [facility] Th[facility] RegionHmbePuirslpPjsfyozGQXO4617975929KIXT03 23-05-30T12:15:121.2.840.398346.1.72.3 .15|1.2.840.075126.1.13.43.2.7.2.65219 9_[id number] Nutrition [facility] 2022-05-31 06:47:50 3546-96-46Z71:47:50 Problem: Hospital Acquired Venous Thromboembolism (VTE)Goal: Absence [...] to perform desired activities.Outcome: Met This Shift 2427356Vhab of Care1.2.840.799596.1.13.43.2.7.4.54487 0.62711275-29-50X83:47:56Plan of CareTXT1.2.840.747714.1.13.43.2.7.2.72 7879|5504909201RWBsfpjslin for patient yird99915-4DnopOP602980980Hcwce Anyamene RN[address]TXTX[address]USUS20 23-05-30T06:47:561.2.840.014023.1.72.3 .15|1.2.840.899507.1.13.43.2.7.2.29678 9_[id number] Charline Ren RN [facility] 2022-05-30 16:05:44 7403-42-88L09:05:44 Initial visit, pt and one family member present, encouragement and spiritual support provided which resulted in hope being expressed. 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2.7.4.20172 0.89838153-47-09Z06:06:41Flowsheet NoteTXT1.2.840.941093.1.13.43.2.7.2.72 7879|3817414757ALCddyinhqu for patient onoc21947-7YhvuZN55977225Xwamijy Joy [facility]2525 [facility] RegionIzqpXfcdnymEzkkavuEEZW9670773714QJCN44 23-05-29T16:06:411.2.840.157280.1.72.3 .15|1.2.840.166682.1.13.43.2.7.2.00621 9_[id number] [facility]ine [facility] 2022-05-30 15:46:11 9304-17-01S69:46:11 Problem: Hospital Acquired Venous Thromboembolism (VTE)Goal: Absence [...] to perform desired activities.Outcome: Met This Shift 1290096Aqlg of Care1.2.840.666739.1.13.43.2.7.4.88756 0.64910349-33-85D79:46:15Plan of CareTXT1.2.840.992730.1.13.43.2.7.2.72 7879|2084218520GGItemgipsj for patient zodj00080-9QinsVC660962609ZehqvypAdams County Regional [facility] Center2525 Natalie BushWhlnVqjtihiOftchwvSZBZ8155444213VVUM63 23-05-29T15:46:151.2.840.684452.1.72.3 .15|1.2.840.200990.1.13.43.2.7.2.52228 9_[id number] [facility] 2022-05-30 05:30:02 4090-70-84S15:30:02 Problem: Hospital Acquired Venous Thromboembolism (VTE)Goal: Absence [...] to perform desired activities.Outcome: Met This Shift 1618536Ogvu of Care1.2.840.909720.1.13.43.2.7.4.24449 0.27269932-55-50Y78:30:08Plan of CareTXT1.2.840.121815.1.13.43.2.7.2.72 7879|4253711899CSVthiwrusm for patient ylfa02978-3ZzwsRHWNPZkjywp Health Ngrgml0663 [facility] RegionDdvjJfwbumtCqhawyvSBAU7244992295TOOB27 23-05-29T05:30:081.2.840.562457.1.72.3 .15|1.2.840.153026.1.13.43.2.7.2.56858 9_[id number] [facility] 2022-05-29 18:34:41 0534-42-33U65:34:41 Problem: Hospital Acquired Venous Thromboembolism (VTE)Goal: Absence [...] to perform desired activities.Outcome: Met This Shift 5759886Xcao of Care1.2.840.598845.1.13.43.2.7.4.12590 0.41279928-71-16T07:34:46Plan of CareTXT1.2.840.174489.1.13.43.2.7.2.72 7879|9801449422APQejrzgmrv for patient ccqg28761-0PceqFI06144543Tgcxhouo Ngozi Osita RN[address]TXTX[address]USUS20 23-05-28T18:34:461.2.840.400597.1.72.3 .15|1.2.840.228302.1.13.43.2.7.2.72410 9_[id number] Octavia Agosto RN [facility] 2022-05-29 05:08:04 0539-98-26E17:08:04 Problem: Hospital Acquired Venous Thromboembolism (VTE)Goal: Absence [...] wounds, or positive cultures.Outcome: Met This Shift 6172539Qthb of Care1.2.840.131556.1.13.43.2.7.4.07950 0.34419650-61-40A98:08:11Plan of CareTXT1.2.840.019137.1.13.43.2.7.2.72 7879|3213588238HZEpfyljyyp for patient swzr19440-9QjdnMI45685454Fbdqi Baby RNMercy Hospital[address] [place], [place] [address]StoiGatmrylIdbqtsnEOMI4629702586YPKN78 23-05-28T05:08:111.2.840.900224.1.72.3 .15|1.2.840.570014.1.13.43.2.7.2.48855 9_[id number] Tyron Enriquez RN [facility] 2022-05-28 18:31:40 3176-49-83H15:31:40 Problem: Hospital Acquired Venous Thromboembolism (VTE)Goal: Absence of Hospital Acquired VTE (DVT or PE)Description: Patient will not develop VTE (DVT or PE) during the hospital stay.05/28/20221830 by Octavia Agosto RNOutcome: Met This Shift05/28/2022 164 by Octavia Agosto RNOutcome: Met This Shift Problem: Knowledge DeficitGoal: Increase Understanding of Causes and Management of Disease Process and TreatmentsDescription: Patient will be educated with accurate information, demonstrate knowledge and skills regarding the disease process, and the diagnostic and therapeutic plan.05/28/20221830 by Octavia Agosto RNOutcome: Met This Shift05/28/2022 164 by Octavia Agosto [...] Octavia Agosto RNOutcome: Met This Shift05/28/20221640 by Surendra, Octavia Savanah, RNOutcome: Met This ShiftGoal: Identify Support Systems05/28/20221830 [...] by Octavia Agosto RNOutcome: Met This Shift 4121154Wmxr [facility]1.2.840.629564.1.13.43.2.7.4.22421 0.38430767-66-72K63:31:43Plan of CareTXT1.2.840.204078.1.13.43.2.7.2.72 7879|1605561328TMUsnsgmsed for patient wizq18848-4KiumZOZFLUkigch Health Xrvhfp4049 [facility] RegionHbfdCwsjmbbVtvspjkVZHS1698860721YUIL65 23-05-27T18:31:431.2.840.398122.1.72.3 .15|1.2.840.256180.1.13.43.2.7.2.98192 9_[id number] [facility] 2022-05-28 16:41:40 8393-94-48Z72:41:40 Problem: Hospital Acquired Venous Thromboembolism (VTE)Goal: Absence [...] to perform desired activities.Outcome: Met This Shift 0144258Zjef of Care1.2.840.336199.1.13.43.2.7.4.99132 0.35796923-70-77K08:41:44Plan of CareTXT1.2.840.833062.1.13.43.2.7.2.72 7879|7538926505EASmcrouqoa for patient bzee74826-4UpkhDHJYWNgrkrj Health Wmgnja1494 [facility] RegionKvlfYbkqverJjgrkupTDFJ4447126303XUCL79 23-05-27T16:41:441.2.840.058208.1.72.3 .15|1.2.840.979291.1.13.43.2.7.2.06039 9_[id number] [facility] 2022-05-28 05:28:45 2063-19-80A34:28:45 Problem: Hospital Acquired Venous Thromboembolism (VTE)Goal: Absence [...] wounds, or positive cultures.Outcome: Met This Shift 6405553Ueul of Care1.2.840.891663.1.13.43.2.7.4.80746 0.61256445-47-65R70:28:51Plan of CareTXT1.2.840.410457.1.13.43.2.7.2.72 7879|7285248179QNJcyktlssv for patient kwqn40545-2NrmiHWJODFqxlkg Health Geacsq1983 [facility] RegionVesxQxjhqrmLkdycnxVFCL9969847206HZGS60 23-05-27T05:28:511.2.840.248294.1.72.3 .15|1.2.840.431564.1.13.43.2.7.2.26307 9_[id number] [facility] 2022-05-27 14:32:23 6450-26-58O68:32:23 Problem: Falls / InjuryGoal: Absence of fall [...] to perform desired activities.Outcome: Met This Shift 3494632Kjvs of Care1.2.840.080837.1.13.43.2.7.4.01691 0.36257856-02-74W55:32:30Plan of CareTXT1.2.840.629547.1.13.43.2.7.2.72 7879|6025618625HFLhxqycvpz for patient yzde77798-6VfrkYG704279051Nbfcrdf Nikita MARTINIMercy Hospital[address] [place], [place] [address]NsjbVabkoxcXyecqxbXRUB7164323687JSBY15 22-08-26T14:32:301.2.840.929074.1.72.3 .15|1.2.840.989369.1.13.43.2.7.2.89060 9_[id number] Kavita Shelton RN [facility] 2022-05-27 05:52:57 0692-54-97B15:52:57 Problem: Hospital Acquired Venous Thromboembolism (VTE)Goal: Absence [...] wounds, or positive cultures.Outcome: Met This Shift 7028494Mbox of Care1.2.840.955356.1.13.43.2.7.4.28547 0.33961039-32-27M83:53:04Plan of CareTXT1.2.840.425541.1.13.43.2.7.2.72 7879|3848542686SRIewpiwoxl for patient jiax11619-8YrjgDSJUBJiszgj Health Bnhcdb0554 [facility] RegionWjayAgbetyeLcxqvprOZDE0006940538DVYB38 23-05-26T05:53:041.2.840.257395.1.72.3 .15|1.2.840.678677.1.13.43.2.7.2.69945 9_[id number] [facility] 2022-05-26 15:14:40 2367-02-09F96:14:40 Problem: Hospital Acquired Venous Thromboembolism (VTE)Goal: Absence [...] done this shift. Patient verbalized understanding. Appropriate stamp pad finisher used. Problem: Falls / InjuryGoal: Absence of [...] Subjective And Objective Responses.Outcome: Met This Shift 0184330Baio of Care1.2.840.498026.1.13.43.2.7.4.46058 0.71676416-88-85U31:14:43Plan of CareTXT1.2.840.691994.1.13.43.2.7.2.72 7879|7272907113ZNSyztnwvhi for patient hucn15934-1VghgCR872063201Dsizr M Bhakta RNMercy Hospital[address] [place], [place] [address]FkeaLedrdilUkuyfcqCIEE6168279982VCJT40 23-05-25T15:14:431.2.840.371631.1.72.3 .15|1.2.840.748405.1.13.43.2.7.2.75587 9_[id number] No Montoya RN [facility] 2022-05-26 11:00:00 9081-21-41N20:00:00 05/26/22 1100 Intervention Education on freedom to choose and issued vendor list Yes Transportation Referrals Other Transportation medical necessity form N/A Current Support System Immediate family Coordination of Care Multidisciplinary team;Outside facilities Per consult to assist with drug treatment placement, SW connected with Pt to discuss options.SW had contacted both [facility] [phone] and [facility] [phone] per Pt's request and was informed there were no beds available. [facility] only has available beds in locations outside [place] like [facility] and [place]. SW suggested other treatment centers including "[facility] [employer]" [phone] who stated they have available beds and Pt is free to come to their facility in [place], ask for Layo with Intake Department. SW also provided [facility] as an option. Pt declined both options, stated he will talk with his family and may have to choose one of the [facility] locations outside of [place].Pt will inform SW when decision is reached.Hayden Gurrola Work Director Biomedical Engineering [facility] HospitalOffice: [address]23Cqtbw: 98199 2126251Ynczwmpdp Note1.2.840.645038.1.13.43.2.7.4.19511 0.34109760-02-47R52:32:49Flowsheet NoteTXT1.2.840.427369.1.13.43.2.7.2.72 7879|8183895912QORqtajkdnc for patient xzhd89534-5VoniTU277756088LlfncsClaiborne County Hospital2525 [facility] RegionIcdaUhfjelbIkqwuwgOYEZ2568648390UGOQ29 23-05-25T11:32:491.2.840.315929.1.72.3 .15|1.2.840.803499.1.13.43.2.7.2.05971 9_[id number] Artem Holly [facility] 2022-05-25 14:25:36 1038-25-37C28:25:36 Problem: Hospital Acquired Venous Thromboembolism (VTE)Goal: Absence [...] Subjective And Objective Responses.Outcome: Met This Shift 7116237Brcs [facility]1.2.840.958035.1.13.43.2.7.4.03647 0.94018279-36-99X91:25:49Plan of CareTXT1.2.840.219162.1.13.43.2.7.2.72 7879|2393954298CCJmicbauss for patient hsnh50775-5EidzNT640118538Qonj [facility]2525 [facility] RegionZfovDyxyikmZnplwtzRIKB1684627748JSLS08 23-05-24T14:25:491.2.840.853111.1.72.3 .15|1.2.840.219164.1.13.43.2.7.2.04755 9_[id number] [facility] 2022-05-25 10:28:37 5692-77-40D91:28:37 THIS IS A STUDENT NOTEInfectious Diseases Consult [...] AFB - Plates have been sent to [facility] for identification and sensitivitiesRecommendations: - After careful consideration of the literature we recommend the following to cover for M chelonae, M fortuitum, and M abscessus: - Amikacin (per pharmacist dosing) - Tigecycline (100mg load followed by 50 BID, can step down to 50 daily if poorly tolerated) - Azithromycin (500 mg daily)- We will jesu antibiotics once ID is received from [place] [facility]- Follow all cultures to completionThank you for this interesting consult. We will continue to followI discussed the case with infectious diseases attending, Dr. Obando.Venu RamosMedical Student, [address] History Obtained From: patient, electronic medical [...] homeless. [place] and does not have any sick [...] intact.Data: All labs, images, and data reviewed. 7242029Yllysrx Note1.2.840.700395.1.13.43.2.7.4.70287 0.97706253-66-43Q60:34:01Student NoteTXT1.2.840.399377.1.13.43.2.7.2.72 7879|8789925439HSWtpawtdbq for patient twla82896-3NpluUYLmvnozyr MedicineOro Valley Hospitalnal MedicineMercy Hospital[address] [place], [place] [address]SjlmYtdywhfRjumjtrQZVD3833301215HDZT24 23-05-24T17:34:011.2.840.258300.1.72.3 .15|1.2.840.336152.1.13.43.2.7.2.28306 9_[id number] Internal Medicine [facility] 2022-05-25 03:18:34 7827-93-85D65:18:34 Problem: Hospital Acquired Venous Thromboembolism (VTE)Goal: Absence [...] Subjective And Objective Responses.Outcome: Met This Shift 6008651Hotc of Care1.2.840.718229.1.13.43.2.7.4.52833 0.25615919-65-40I08:18:38Plan of CareTXT1.2.840.092537.1.13.43.2.7.2.72 7879|0153166377DWFipdswqcc for patient xueg24948-3NyeqKPQKJTfdazn Health Tzurrn4822 [facility] RegionIwpoBabyrdlPjhfjtaEWTR6678534788ZQGW18 23-05-2403:18:381.2.840.206272.1.72.3 .15|1.2.840.727062.1.13.43.2.7.2.51322 9_[id number] [facility] 2022-05-24 18:27:10 1435-60-95M58:27:10 Problem: Hospital Acquired Venous Thromboembolism (VTE)Goal: Absence [...] Subjective And Objective Responses.Outcome: Met This Shift [id number] of Care1.2.840.756217.1.13.43.2.7.4.46430 0.36458168-06-01D86:27:20Plan of CareTXT1.2.840.373993.1.13.43.2.7.2.72 7879|[id number] for patient idnz38717-3XoxmXPZYLXkmpaq Health Mgdook2421 [facility] Regi[id number] 23-05-23T18:27:201.2.840.710879.1.72.3 .15|1.2.840.513784.1.13.43.2.7.2.34985 9_[id number] [facility] 2022-05-24 11:04:15 0739-66-15N54:04:15 Case management note:Chart reviewed for medical necessity and hospitalization 05/24/22 1103 Intervention Disease Management Meets criteria for Inpatient Medical Necessity Screening Concurrent review([id number]) Patient meet inpatient criteriaPlease place order Admit to InpatientThank Samanta diggs MSN, ACM-RNClinical Nurse Case ManagerCincinnati Children'S Hospital [facility] Center | [address] | [place], [place] [address]Z: [phone] |F: [phone]| [id number] Note1.2.840.468652.1.13.43.2.7.4.10988 0.59270306-39-24V31:04:38Flowsheet NoteTXT1.2.840.993913.1.13.43.2.7.2.72 7879|[id number] for patient hybr15732-6VkqfAH81597503Cybj S Jacob RNMercy Hospital[address] [place], [place] [id number] 23-05-23T11:04:381.2.840.502940.1.72.3 .15|1.2.840.593023.1.13.43.2.7.2.59799 9_[id number] Samanta Hassan RN [facility] 2022-05-24 08:50:00 2615-02-02B99:50:00 05/24/22 0850 Charting Type Charting Type Initial Patient Status Current Status Observation New Status Recommendation Observation Patient Information Source of Information Patient;Other (Comment) County [place]idence [place] Immigration Status: [place] Citizen [...] Family Information Patient Marital Status Single Primary Airbrush Artist Lydia Guadalupe (father) [phone] Income Information Income Source Unemployed Financial Resources Funding Source/Insurance Status Self-Pay Transportation Transportation Needs Private/family transportation Legal Information Legal Concerns No unmet needs Name, surrogate decision maker Lydia Guadalupe (father) [phone] Decision maker contact # Lydia Guadalupe (father) [phone] Mental Health Mental Health Concerns No past / current concerns Acuity Level Medical Acuity 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 Pt did not remember the address of sister's house.Family will provide discharge transportation.Healthcare Agent: Lydia Guadalupe (father) [phone].Hayden Gurrola Work Director Biomedical Engineering [facility] HospitalOffice: [phone]: [id number] Note1.2.840.056779.1.13.43.2.7.4.81311 0.40327496-98-12T78:59:01Flowsheet NoteTXT1.2.840.690906.1.13.43.2.7.2.72 7879|[id number] for patient glzm89098-7HfmkLMRUYKmiwlf Health [address] [place], [place] [address]KtxyYzqemwbQaxfgtyLARW5460666314JHIZ52 23-05-23T10:59:011.2.840.848407.1.72.3 .15|1.2.840.757873.1.13.43.2.7.2.59061 9_[id number] [facility] 2022-05-24 06:45:53 1361-40-54V31:45:53 Problem: Falls / InjuryGoal: Absence of fall [...] wounds, or positive cultures.Outcome: Met This Shift [id number] of Care1.2.840.818954.1.13.43.2.7.4.69694 0.85100356-57-68T63:46:15Plan of CareTXT1.2.840.625609.1.13.43.2.7.2.72 7879|0755681283QMJlduzycst for patient zequ53306-2MgquHVWHZVkltro74 Garcia [id number] 23-05-2306:46:151.2.840.337199.1.72.3 .15|1.2.840.013966.1.13.43.2.7.2.53243 9_[id number] [facility] 2022-05-24 04:17:46 7788-32-39N45:17:46 Patient transferred to . Patient refused wheelchair for transfer. Report given to Hanh MARTINI. Patient AAOx4. Ambulates independently. Respirations clear and unlabored. Skin appropriate to ethnicity. Skin intact with abscesses to the right and left forearms. 66628-0Byzzqjyjf department KpfnEC6476-90-77Z92:19:07[facility] department NoteTXT1.2.840.269426.1.13.43.2.7.2.72 7879|[id number] for patient uchs63965-4Whrezbnuu department [id number] 23-05-23T04:19:071.2.840.475993.1.72.3 .15|1.2.840.769157.1.13.43.2.7.2.60825 [id number] Lupillo Jo [facility] 2022-05-24 02:00:00 8363-56-72I39:00:00 Pt resting in room quietly, respirations even nonlabored, no acute distress. [address]186-5Gwqcumvtn[address] ObiyZZ0588-21-35K20:07:26[facility] NoteTXT1.2.840.806295.1.13.43.2.7.2.72 7879|[id number] for patient tqea24537-5Dpbcpfixy[address] [place] [address] DqjmBV391191694Ysazp [id number] 23-05-23T05:07:261.2.840.509043.1.72.3 .15|1.2.840.228020.1.13.43.2.7.2.50541 [id number] [facility] 2022-05-23 23:58:21 1485-97-02L88:58:21 [place] [address]-5Zlvzacvoe department HyywWA2005-75-25C16:58:35[facility] department NoteTXT1.2.840.725689.1.13.43.2.7.2.72 7879|[id number] for patient irxu58100-1Fcqqswgqp department [id number] 23-05-22T23:58:351.2.840.700315.1.72.3 .15|1.2.840.843551.1.13.43.2.7.2.52251 [id number] [facility] 2022-05-23 22:47:00 5105-20-06E75:47:00 Patient Tej Guadalupe, 37 y.o. male, presented [...] extremities spontaneously. Patient pending medical bed admission. 10709-4Sqkykdtfq department XqqvYO2794-80-11M93:20:22[facility] NoteTXT1.2.840.155202.1.13.43.2.7.2.72 7879|[id number] for patient jjzd52432-3Dmzbzpjrd department NoteLNMercy Hospital2525 [facility] RegionNryhQcvnclqElyrdoyGVFG1174146275CHNR32 23-05-23T01:20:221.2.840.885256.1.72.3 .15|1.2.840.527732.1.13.43.2.7.2.51460 [id number] [facility] 2022-05-23 22:11:16 7189-37-66P37:11:16 Pt ambulatory to B4 for admission with triage nurse. Pt A&OX4, respirations even nonlabored, no acute distrress/no airway distress. 27902-0Sietwujjc department YvgqWH3920-48-07Y86:11:43[facility] department NoteTXT1.2.840.741342.1.13.43.2.7.2.72 7879|[id number] for patient gypp63259-6Rmgytirbn department NoteLNMercy Hospital2525 [facility]umb Regi[id number] 23-05-222:11:431.2.840.508667.1.72.3 .15|1.2.840.648266.1.13.43.2.7.2.00190 [id number] [facility] 2022-05-23 13:29:36 9286-29-57V15:29:36 Images from the original note were not [...] about a month" per pt. Seen at [facility] on 05/19/2022 for same issue. [...] History provided by: Medical records and patientLanguage stamp pad finisher used: No AbscessLocation: Shoulder/armShoulder/arm abscess location: R [...] Continue to monitor in the emergency departmentNAVEEN Lane[facility] PA FellowProvider #[id number]:04 PM Clinical Impression 1. Cutaneous abscess of [...] F Reyes MD August 01, 2022 11:44 NK96080-4Kgtyoojdi Emergency department KtxpIL955701Ebdokvt, Stephen A1.2.840.506245.1.13.43.2.7.2.523916Mf dwkaoNzttbnkOQU1614-67-22Z60:46:02Phys [facility] Emergency department NoteTXT1.2.840.039321.1.13.43.2.7.2.72 7879|[id number] for patient hnvu00843-8Ahmuhracq department NoteLNMercy Hospital[address] [place], [place] [address]Y[id number] 23-07-31T11:46:021.2.840.016448.1.72.3 .15|1.2.840.450315.1.13.43.2.7.2.30469 [id number] [facility] 2022-05-23 10:59:29 0574-74-76T57:59:29 ABC intact. Resp even and unlabored. Skin warm and dry with color appropriate to ethnicity. Pt in stable condition. NAD. Verified name and verbally with pt and armband. Informed pt to notify this RN or staff if wanting to leave, and/or experiencing any changes in condition. 89036-3Rzucufiii department Triage rufwGP4750-38-36P89:01:33[facility] department Triage noteTXT1.2.840.058635.1.13.43.2.7.2.72 7879|[id number] for patient xzzy40870-3Wwcjfeker department MtygTX209170611Thbgdbrh Cici Cheung RNMercy Hospital2525 [facility]umb Region[id number] 23-05-22T11:01:331.2.840.626375.1.72.3 .15|1.2.840.451331.1.13.43.2.7.2.10784 [id number] Mary Jane Cici Cheung RN [facility] 2022-05-23 10:50:34 4717-94-79E40:50:34 MEDICAL SCREENING EXAMINATION PROVIDER NOTEI evaluated and [...] at this time.Billy Aguayo 2021 10:52 AM 29884-0Pcigdcimo department VacvGT9825-99-80Z21:53:43[facility] department NoteTXT1.2.840.136109.1.13.43.2.7.2.72 7879|[id number] for patient tzjq39468-9Adywebrpm department NoteLNNurse PractitionerNurse PractitionerMercy Hospital2525 [facility]umb RegionE[id number] 23-05-22T10:53:431.2.840.891393.1.72.3 .15|1.2.840.003922.1.13.43.2.7.2.68365 [id number] Nurse Practitioner [facility] 2022-05-22 20:38:38 6796-54-58W69:38:38 Tej Guadalupe called within waiting room and did not answer x3. Patient name paged overhead within the Emergency Department without response. Waiting rooms, ED care areas and restrooms visualized and patient not found. 44748-8Ljaiuizrb department CqhyEH4549-63-71I86:38:46[facility] department NoteTXT1.2.840.669441.1.13.43.2.7.2.72 7879|[id number] for patient gbzc55689-2Rnolbfzhx department DledHX250671130Rxqhikl Martin RNMercy Hospital2525 [facility] RegionVqubShkvzicQelfyelMQHS0234970912IASK06 23-05-21T20:38:461.2.840.693869.1.72.3 .15|1.2.840.747280.1.13.43.2.7.2.53077 [id number] Michelle Cuenca RN [facility] 2022-05-22 13:26:33 9963-65-79Q63:26:33 MEDICAL SCREENING EXAMINATION PROVIDER NOTEI evaluated and [...] at this time.Billy Novak 2021 1:29 PM 70929-9Rimvhhoso department WyzdRE1065-07-96B21:33:27[facility] department NoteTXT1.2.840.210589.1.13.43.2.7.2.72 7879|[id number] for patient pgoi11387-6Yvdihmnct department NoteLNNurse PractitionerNurse PractitionerMercy Hospital2525 [facility] RegionHdfiLshgpkvFixuxivOUKL1248086218CZHF73 23-05-213:33:271.2.840.078151.1.72.3 .15|1.2.840.348032.1.13.43.2.7.2.05345 [id number] Nurse Practitioner [facility] 2022-05-19 19:48:02 2749-51-61Q08:48:02 Pt AAOX4. Discharge instructions and prescription given, pt verbalizes understanding. Escorted to checkout with belongings in hand. Ambulatory with steady gait. VSS. Respirations even and unlabored. NAD upon departure. 23538-2Dgdmrcoke department YapnCN6681-80-71Y07:48:18[facility] department NoteTXT1.2.840.316923.1.13.43.2.7.2.72 7879|[id number] for patient rasv27196-3Xjxmvcioe department ZuvcFN167810713Xsbktj Graham RNMercy Hospital2525 [facility] RegionDab[id number] 23-05-18:48:181.2.840.446498.1.72.3 .15|1.2.840.467996.1.13.43.2.7.2.61939 9_[id number] Jah Bueno RN [facility] 2022-05-19 19:35:00 4614-25-36K06:35:00 37 yo pt comes to ED w/ [...] at this time Pt Is pending d/c 47683-5Ufojzquos department UbqaCA4082-53-74O22:48:50[facility] department NoteTXT1.2.840.859084.1.13.43.2.7.2.72 7879|[id number] for patient ywlx48707-4Mraozvgjd department NoteLNMercy Hospital2525 Natalie [id number] 23-05-18T19:48:501.2.840.193427.1.72.3 .15|1.2.840.246042.1.13.43.2.7.2.44620 [id number] [facility] 2022-05-19 15:56:27 7995-63-95R62:56:27Associated Order(s): I&D of AbscessPost-Procedure Diagnose(s): Right wrist [...] for cellulitis and had procedure (surgical I&D) ([facility]oy [facility]), treated with cellulitis and sent home [...] Lea May 19, 2022 1856 TEACHING PHYSICIAN MARIA [...] small pustules with surrounding cellulitis. .Daniel Petit [facility] 2021 6:56 PM [RM] ED Course User [...] Impression 1. Right wrist pain Chris Marrufo, CffakbmgRITikyiuxs02 1641 Chris Marrufo, DsehvcpyDFTjxkcrij00/18/22 1738 Chris Marrufo, DirnszacBLSgbieevd64/18/22 1739 Niru Chris Jaramillo, EposmiglCCBtrttslf90/18/22 1847 Chris Marrufo, RorcrgofZOHviaxfaz40/18/22 1908TEACHING PHYSICIAN MARIA INESI personally examined Tej Guadalupe, [...] Estrada 2021 10:23 PM Daniel Petit MD05/19/226 78123-3Jhzdpbcyw Emergency department JboxTP781263QnLfcqyg, Robert1.2.840.878078.1.13.43.2.7.2.836 245XlGzivaePkyazeHA7297-91-42N63:30:23 Physician Emergency department NoteTXT1.2.840.624305.1.13.43.2.7.2.72 7879|[id number] for patient iews78068-1Utdketdgj department NoteLNInternal MedicineInternal MedicineMercy Hospital2525 [facility] RegionWfnkQmupafbVrqabizVERJ1272287428RPVQ43 23-05-18T22:26:301.2.840.821548.1.72.3 .15|1.2.840.003587.1.13.43.2.7.2.04180 [id number] Internal Medicine [facility] 2022-05-19 15:51:03 3999-95-84J70:51:03 Assessment X2 pt's ID, ABC intact, A&Ox4, [...] hot to touch. No peripheral edema. MAEX4 NDUT5Eohe light and belongings within reachPending evaluation and orders, will continue to monitor VINI Gonzalez 47224-1Cgmftbmpt department NraiBO7611-55-03T50:54:23[facility] department NoteTXT1.2.840.665160.1.13.43.2.7.2.72 7879|[id number] for patient wsfa90051-6Rsxepkfrd department EwciYK815945005Bwuurs [facility]2525 [facility] RegionWfzmWtgxdfxTsgexbcNAMW9955603593FHFW29 23-05-18T15:54:231.2.840.122577.1.72.3 .15|1.2.840.341748.1.13.43.2.7.2.62264 [id number] Antwon Gonzalez [facility] 2022-05-19 12:42:01 3784-60-60T92:42:01 Pt noted to have another hospital arm band on stated "they told me to come here to get them lanced" [address]34-7Vqquzojmu[address] GjqtCK7235-43-50K47:42:31[facility] NoteTXT1.2.840.656905.1.13.43.2.7.2.72 7879|[id number] for patient [address] ZxqpFW818796268Xfrcmvyy Clardy RNMercy Hospital2525 [facility] RegionXoznGmfnldpHbfonjuMEQY7028427652JHMK09 23-05-18:42:311.2.840.238196.1.72.3 .15|1.2.840.101296.1.13.43.2.7.2.77981 [id number] Emma Weathers RN [facility] 2022-05-19 12:32:25 5513-99-50E18:32:25 Name and verified and confirmed correct with patient. [address]146-2Hnsdjopvu[address] VddqZY9837-38-32U26:32:31[facility] NoteTXT1.2.840.508110.1.13.43.2.7.2.72 7879|[id number] for patient [address] NoteLNMercy Hospital2525 [facility] RegionGwjqNzqeazbJaarkhdFLGX2248151065TRNS13 23-05-182:32:311.2.840.630751.1.72.3 .15|1.2.840.237073.1.13.43.2.7.2.91698 9_[id number] [facility] 2022-05-19 12:30:12 8291-65-51Z65:30:12 MEDICAL SCREENING EXAMINATION PROVIDER NOTEI evaluated and [...] at this time.Choco Matthews 2021 12:30 PM 12627-7Kjwrlznax department XdgoQL8483-29-44N66:32:29[facility] department NoteTXT1.2.840.507529.1.13.43.2.7.2.72 7879|[id number] for patient vhek13225-6Avrqbxnpr department [facility]2525 [facility] RegionOfbkArtbhemJqrjcrhDCFM8187032383LNQG84 23-05-18T12:32:291.2.840.949171.1.72.3 .15|1.2.840.989745.1.13.43.2.7.2.72780 [id number] [facility] 2020-12-13 19:54:00 QUolbmeravs27049842USR+i5hlNsWsAnXTlnV c/bmutrseL010kvOcFR76LRlYmxvGzgoFjCLh/ HAXRBAp9094-24-37W50:54:00 [facility] ([facility])EMERGENCY PROVIDER REPORTREPORT#:[id number] REPORT STATUS: SignedDATE:12/13/20 TIME: 1953 PATIENT: TEJ GUADALUPE UNIT #: [id number]#: [id number] ROOM/BED:AGE: 35 SEX: M PCP PHYS: No [...] HPI NotesPatient states he is withdrawing from [facility] [employer] and thinks he may have had a [...] and squeezes hands appropriately upon command. Normal nvcl-ni-ojtg eye movements on extraocular muscle testing. No [...] 12/13/20 2005:[Embedded Image Not Available]Laboratory Tests: 12/13 2005 Chemistry Sodium (136 - 145 mmol/L) 134 [...] pH (5.0 - 8.0) 6.5 Ur Specific Fannin (1.001 - 1.035) 1.014 Urine Protein (NEGATIVE [...] me, Pulse oximetry normal Time 1956 Re-Evaluation [facility] ED CourseMedication(s) OrderedMedication(s) Ordered:Antihistamine Drugs Sig/Darius Start [...] 12/13 1950 Pulse 102 12/13 1949 Resp 16 12/13 1949 All vital signs available at the time of this entry have been reviewed. Clinical ImpressionClinical ImpressionPrimary Impression: DepressionSecondary Impressions: POSSIBLE SEIZURE Pt/Provider HandoffCare Transferred at 2238 (to Dr. Mari) at 2238RPT #:[id number] OF REPORTEDEmergency department rzbtch2046-83-89N99:54:00V.RUWI3030144 4-0589AVAvailable for patient qjnlCYMSYBKDJOWRAU2239-03-13T80:39:03 [facility] 2020-12-13 19:54:00 AXcqbldbkna18379435cY9aSvaGRHDwElOQ/Q6 WSnKMRD1HdmQI7YNwjGsHow6z7Ciyjk+Wxasc8 Q3nA9D95792-10-29Q49:54:00 [facility] ([facility])EMERGENCY PROVIDER REPORTREPORT#:[id number] REPORT STATUS: SignedDATE:12/13/20 TIME: 1953 PATIENT: TEJ GUADALUPE UNIT #: [id number]#: [id number] ROOM/BED:AGE: 35 SEX: M PCP PHYS: No [...] HPI NotesPatient states he is withdrawing from [facility] [employer] and thinks he may have [...] and squeezes hands appropriately upon command. Normal gqhm-kn-slrd eye movements on extraocular muscle testing. No [...] pH (5.0 - 8.0) 6.5 Ur Specific Fannin (1.001 - 1.035) 1.014 Urine Protein (NEGATIVE [...] of Re-Eval 0518 at 2238 at 0519RPT #:[id number] OF REPORTEDEmergency department vqytfh8365-86-96E97:54:00V.VSMK9110181 4-0589AVAvailable for patient rjkoQIICAIFQHNBRMQ1602-10-39Q28:19:25 [facility] 2020-12-13 19:54:00 XHfnlgnqfvx34167707gAtoYG1CE5BT+LHvbz6 zCmlZb5do6BL+efMMaZCrMmOjrNwODEP7D0wgl ZTT1l9T6257-05-55M67:54:00 [facility] PROVID[facility] REPORTREPORT#:[id number] REPORT STATUS: SignedDATE:12/13/20 TIME: 1953 PATIENT: TEJ GUADALUPE UNIT #: [id number]#: [id number] ROOM/BED:AGE: 35 SEX: M PCP PHYS: No [...] HPI NotesPatient states he is withdrawing from [facility] and thinks he may have had a [...] and squeezes hands appropriately upon command. Normal vtgz-rz-eybb eye movements on extraocular muscle testing. No [...] Temp 36.4 12/14 729 Pulse 81 12/14 0730 Resp 17 12/14 0730 Review of Vital Signs Reviewed Focused PEGeneral/Const [...] pH (5.0 - 8.0) 6.5 Ur Specific Fannin (1.001 - 1.035) 1.014 Urine Protein (NEGATIVE [...] me, Pulse oximetry normal Time 1956 Re-Evaluation [facility] ED CourseMedication(s) OrderedMedication(s) Ordered:Antihistamine Drugs Sig/Darius Start [...] 12/14 0730 O2 Delivery Room air 12/14 729 Temp 36.4 12/14 0730 Pulse 81 12/14 [...] involvement at 2238 at 0519 at 0803RPT #:[id number] OF REPORTEDEmerchi [facility] cxfqiy6325-26-96I14:54:00V.IZGE6330173 4-0589AVAvailable for patient rntjJBPVILJTIMFIMT2520-23-47G27:03:59 [facility] 2020-12-06 16:41:00 PTyxflucmvc41076524xi/5aQFOyng9KCw9iAo lM2GjUxImkDWBgCZrvF/irWVlt6f7KBAdg6KfT e9G3ymn6917-29-35H62:41:00 [facility] ([facility] PROVIDER REPORTREPORT#:[id number] REPORT STATUS: SignedDATE:12/06/20 TIME: 164 PATIENT: TEJ GUADALUPE UNIT #: [id number]#: [id number] ROOM/BED:AGE: 35 SEX: M PCP PHYS: No [...] to leave the hospital. GeneralInitial Greet Date/Time 12/06/201401 PresentationChief Complaint __ (request for xanax) Review of Systems ROS StatementsUnable to Obtain ROS Uncooperative Past Medical History - AdultStated Complaint [facility] X[facility] DETOXAllergiesCoded Allergies:No Known Allergies (12/06/20) Smoking status: Smoking status for patients 13 years old or older: Current every day smoker Physical Exam Vital SignsVital SignsFirst Documented: Result Date Time Pulse Ox 97 12/06 1402 B/P 129/87 / 1402 B/P Mean 101 12/06 1402 O2 Delivery Room air 12/06 1402 Temp 36.6 12/06 1402 Pulse 93 12/06 1402 Resp 16 12/06 1402 Last Documented: Result Date Time Pulse Ox 97 12/06 1402 B/P 129/87 / 1402 B/P Mean 101 / 1402 O2 Delivery Room air 03/ 1402 Temp 36.6 03/07 1402 Pulse 93 03/07 1402 Resp 16 03/ 1402 Review of [...] 93 03/07 1402 Resp 16 03/ 1402 Last Documented: Result Date Time Pulse Ox 97 03/ 1402 B/P 129/87 03/ 1402 B/P Mean 101 03/ 1402 O2 Delivery Room air 03/ 1402 Temp 36.6 03/07 1402 Pulse 93 03/07 1402 Resp 16 03/ 1402 All vital signs available at the time of this entry have been reviewed. Clinical ImpressionClinical ImpressionPrimary Impression: Benzodiazepine abuse Disposition DecisionOther Against Medical Advice Yes at 1528RPT #:[id number] OF REPORTEDEmergency department ifhapk0083-01-07P49:41:00V.BFUK1899423 7-0443AVAvailable for patient ovazNMKPIZPNHSXKIG1567-73-56J23:28:42 [facility]
[2024-03-17] MEDS ORDERED: KETOROLAC 30 MG/ML INJ ONE (17:23)
[2024-03-17] MEDS ORDERED: LIDOCAINE 4% PATCH ONE (17:23)
[2024-03-17] MEDS ORDERED: ACETAMINOPHEN 500 MG TAB ONE (17:23)
--- NOTE | 2024-03-17 17:47 | ER ---
Nurse's Notes [facility] Name: Anthony Au Age: 38 yrs Sex: Male : 1985 Arrival Date: 03/17/2024 Time: 16:09 Bed 9 Private MD: Diagnosis: Low back pain Presentation: 03/17 16:36 Chief complaint: Patient states: Pt reports back pain x2 years, out of his suboxone x4 kb3 days. Coronavirus screen: Vaccine status: Patient reports receiving the 2nd dose of the covid vaccine. Client denies travel out of the [place] in the last 14 days. Ebola Screen: Patient negative for fever greater than or equal to 101.5 degrees Fahrenheit, and additional compatible Ebola Virus Disease symptoms Patient denies exposure to infectious person. Patient denies travel to an Ebola-affected area in the 21 days before illness onset. Initial Sepsis Screen: Does the patient meet any 2 criteria? No. Patient's initial sepsis screen is negative. Does the patient have a suspected source of infection? No. Patient's initial sepsis screen is negative. Risk Assessment: Do you want to hurt yourself or someone else? Patient reports no desire to harm self or others. Onset of symptoms is unknown. 16:36 Method Of Arrival: Ambulatory kb3 16:36 Acuity: MARKY 4 kb3 Triage Assessment: 16:37 General: Appears in no apparent distress. Behavior is calm, cooperative. Pain: kb3 Complains of pain in back. Musculoskeletal: Range of motion: intact in all extremities, Tenderness is absent. Reports pain in back. Historical: - Allergies: 16:37 No Known Allergies; kb3 - Home Meds: 16:37 clonazepam 1 mg oral tablet 2 times per day [Active]; Zyprexa 10 mg Oral tablet 1 tab kb3 once [Active]; - PMHx: 16:37 Anxiety; Asthma; Bipolar disorder; Depression; detox seizures; scalp laceration repair.;kb3 - PSHx: 16:37 I\T\D; kb3 - Immunization history:: Adult Immunizations up to date, Client reports receiving the 2nd dose of the Covid vaccine, Last tetanus immunization: up to date. - Infectious Disease History:: Denies. - Social history:: Smoking status: Patient reports the use of cigarette tobacco products, smokes one-half pack cigarettes per day. Screenin:45 [facility] ED Fall Risk Assessment (Adult) History of falling in the last 3 months, kb3 including since admission No falls in past 3 months (0 pts) Confusion or Disorientation No (0 pts) Intoxicated or Sedated No (0 pts) Impaired Gait No (0 pts) Mobility Assist Device Used No (0 pt) Altered Elimination No (0 pt) Score/Fall Risk Level 0 - 2 = Low Risk Oriented to surroundings. Abuse screen: Denies threats or abuse. Denies injuries from another. Nutritional screening: No deficits noted. Tuberculosis screening: No symptoms or risk factors identified. Assessment: 17:45 General: Appears in no apparent distress. comfortable, Behavior is calm, cooperative. kb3 Neuro: No deficits noted. 17:45 Neuro: Denies weakness dizziness, paresthesias numbness headache. Musculoskeletal: kb3 Reports pain in back. Vital Signs: 16:44 BP 129 / 92; Pulse 93; Resp 16; Temp 98.5; Pulse Ox 97% on R/A; aw1 18:00 BP 121 / 87; Pulse 80; Resp 18; Temp 98; Pulse Ox 100% ; kb3 ED Course: 16:09 Patient arrived in ED. rg4 16:25 Giovanni Pitts MD is Attending Physician. ec2 16:37 Triage completed. kb3 16:37 Arm band placed on right wrist. Patient placed in an exam room, on a stretcher. kb3 17:29 Rafita Staton, RN is Primary Nurse. bp 17:41 Lumbar Spine (3 Views) XRAY In Process Unspecified. EDMS 17:45 Patient has correct armband on for positive identification. Bed in low position. kb3 Provided Education on: Plan of care. 17:45 No provider procedures requiring assistance completed. Patient did not have IV access kb3 during this emergency room visit. Administered Medications: 17:29 Drug: Ketorolac IM 30 mg IM once Route: IM; Site: right deltoid; bp 18:16 Follow up: Response: No adverse reaction; Pain is decreased kb3 17:29 Drug: Acetaminophen PO 1000 mg PO once Route: PO; bp 18:16 Follow up: Response: No adverse reaction; Pain is decreased kb3 17:29 Drug: Lidoderm Topical Patch 5 % (700 mg/patch) 1 patches Topical once; leave on for 12 bp hours; cover most painful area; may cut into smaller pieces Route: Topical; Site: affected area; 18:16 Follow up: Response: No adverse reaction; Pain is decreased kb3 Medication: 17:45 VIS not applicable for this client. kb3 Outcome: 17:47 Discharge ordered by . ec2 18:00 Discharged to home ambulatory, kb3 18:00 Condition: improved kb3 18:00 Discharge instructions given to patient, Instructed on discharge instructions, follow up and referral plans. medication usage, Demonstrated understanding of instructions, follow-up care, medications, 18:19 Patient left the ED. kb3 Signatures: Dispatcher [employer] Beatrice Conrad rg4 Rafita Staton RN RN bp Ayah Fontana RN RN kb3 Rashmi Spain aw1 Giovanni Pitts MD MD ec2 Corrections: (The following items were deleted from the chart) 16:39 16:37 Home Meds: Alprazolam Oral; kb3 kb3 16:39 16:37 Home Meds: ceboxone; kb3 kb3
--- NOTE | 2024-03-17 17:47 | EDPHYS ---
Physician Documentation [facility] [place] Name: Anthony Au Age: 38 yrs Sex: Male : 1985 Arrival Date: 03/17/2024 Time: 16:09 Bed 9 Private MD: ED Physician Giovanni Pitts HPI: 03/17 17:14 This 38 yrs old Male presents to ER via Ambulatory with complaints of Back ec2 Pain. 17:14 Patient arrives today for evaluation of chronic back pain. Neck pain ongoing for 2 ec2 years. No recent falls injuries or trauma. States he takes Suboxone for chronic pain.. Historical: - Allergies: 16:37 No Known Allergies; kb3 - Home Meds: 16:37 clonazepam 1 mg oral tablet 2 times per day [Active]; Zyprexa 10 mg Oral tablet 1 tab kb3 once [Active]; - PMHx: 16:37 Anxiety; Asthma; Bipolar disorder; Depression; detox seizures; scalp laceration repair.;kb3 - PSHx: 16:37 I\T\D; kb3 - Immunization history:: Adult Immunizations up to date, Client reports receiving the 2nd dose of the Covid vaccine, Last tetanus immunization: up to date. - Infectious Disease History:: Denies. - Social history:: Smoking status: Patient reports the use of cigarette tobacco products, smokes one-half pack cigarettes per day. ROS: 17:14 Constitutional: as per hpi ec2 Exam: 17:14 Constitutional: GEN: NAD Head: atraumatic Eyes: EOMI Ears: External ears are ec2 normal. CV: regular rate LUNGS: no respiratory distress ABD: non-distended SKIN: no evidence of rashes MSK: no evidence of trauma, no C/T/L spine TTP. NEURO: moves all extremities equally Vital Signs: 16:44 BP 129 / 92; Pulse 93; Resp 16; Temp 98.5; Pulse Ox 97% on R/A; aw1 18:00 BP 121 / 87; Pulse 80; Resp 18; Temp 98; Pulse Ox 100% ; kb3 MDM: 16:34 Patient medically screened. ec2 17:14 Data reviewed: vital signs. ED course: Patient arrives today for evaluation of low back ec2 pain. Examination remarkable for well-appearing nontoxic and appears otherwise in no acute distress with a reassuring examination. Will obtain radiograph of the L-spine, treat the patient's pain with Toradol as well as Tylenol and a Lidoderm patch. Differential diagnosis includes chronic back pain, sprain, doubt fracture.. 17:53 ED course: Patient reports improvement in symptoms, request to be discharged. Will ec2 discharge home. Return precautions given.. 17:53 ED course: Radiograph shows no acute pathology. Will discharge. Instructed to follow-up ec2 with primary care doctor. 03/17 17:14 Order name: Lumbar Spine (3 Views) XRAY; Complete Time: 17:53 ec2 Administered Medications: 17:29 Drug: Ketorolac IM 30 mg IM once Route: IM; Site: right deltoid; bp 18:16 Follow up: Response: No adverse reaction; Pain is decreased kb3 17:29 Drug: Acetaminophen PO 1000 mg PO once Route: PO; bp 18:16 Follow up: Response: No adverse reaction; Pain is decreased kb3 17:29 Drug: Lidoderm Topical Patch 5 % (700 mg/patch) 1 patches Topical once; leave on for 12 bp hours; cover most painful area; may cut into smaller pieces Route: Topical; Site: affected area; 18:16 Follow up: Response: No adverse reaction; Pain is decreased kb3 Disposition Summary: 03/17/24 17:47 Discharge Ordered Notes: Location: Home ec2 Condition: Stable ec2 Diagnosis - Low back pain ec2 Followup: ec2 - With: Private Physician - When: - Reason: Re-evaluation by your physician Discharge Instructions: - Discharge Summary Sheet ec2 - Chronic Back Pain ec2 Forms: - Medication Reconciliation Form ec2 - Antibiotic Education ec2 - Prescription Opioid Use ec2 - Patient Portal Instructions ec2 - Leadership Thank You Letter ec2 Signatures: Dispatcher [employer] Rafita Sparks RN RN Ayah Lane RN RN kb3 Giovanni Pitts MD MD ec2 Corrections: (The following items were deleted from the chart) 16:39 16:37 Home Meds: Alprazolam Oral; kb3 kb3 16:39 16:37 Home Meds: ceboxone; kb3 kb3
--- NOTE | 2024-03-17 17:47 | RAD REPORT ---
EXAM DESCRIPTION: RAD - Lumbar Spine 3 Views - 03/17/2024 5:39 pm CLINICAL HISTORY: back pain Radiculopathy COMPARISON: No comparisons FINDINGS: Vertebral body heights appear maintained. No compression fracture noted. Disc spaces are m aintained. No spondylolysis or spondylolisthesis. Sclerosis right femoral head. IMPRESSION: No acute lumbar spine abnormality. Sclerosis the right femoral head probably indicates avascular necrosis.
[2024-03-17 19:05] VITALS: BP 121/87; TEMP 98; O2SAT 100
== END 2024-03-17 18:19 | disposition home or self-care (01) ==
LOC: ER 16:09
DX: M54.50 Low back pain, unspecified (principal)
CPT/HCPCS: 72100; 96372; 99284; J2001

== ENCOUNTER 2025-01-22 11:11 | Emergency (ER) | payer SELFPAY ==
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
--- NOTE | 2025-01-22 11:32 | EDPHYS ---
Physician Documentation [facility] Name: Anthony Au Age: 39 yrs Sex: Male : 1985 Arrival Date: 01/22/2025 Time: 11:11 Bed IW1 Private MD: ED Physician Izaiah Kilpatrick HPI: 01/22 11:29 This 39 yrs old Male presents to ER via Ambulatory with complaints of Neck sp3 Pain, <24hrs Old, Back Pain. 11:29 39-year-old male with history of bipolar disease, asthma, anxiety, on Suboxone here for sp3 pain related symptoms secondary to him taking himself off of Suboxone. He went saw his pain management doctor who offered to put him back on but he states he could not afford to be seen. He denies any new injury, neurosymptoms, or any other complaints other than chronic neck pain. He denies any other somatic symptoms and remainder of ROS is negative.. Historical: - Allergies: 11:22 No Known Allergies; iw - Home Meds: 11:22 clonazepam 1 mg Oral tablet 2 times per day [Active]; Prozac 20 mg Oral capsule daily iw [Active]; Zyprexa 10 mg Oral tablet 1 tab once [Active]; Suboxone sublingual daily [Active]; - PMHx: 11:22 Depression; Bipolar disorder; Asthma; Anxiety; detox seizures; scalp laceration repair.;iw ROS: 11:30 Constitutional: Negative for fever, chills, and weight loss, Eyes: Negative for injury, sp3 pain, redness, and discharge, ENT: Negative for injury, pain, and discharge, Cardiovascular: Negative for chest pain, palpitations, and edema, Respiratory: Negative for shortness of breath, cough, wheezing, and pleuritic chest pain, Abdomen/GI: Negative for abdominal pain, nausea, vomiting, diarrhea, and constipation, Back: Negative for injury and pain, MS/Extremity: Negative for injury and deformity, Skin: Negative for injury, rash, and discoloration, Neuro: Negative for headache, weakness, numbness, tingling, and seizure, 11:30 All other systems are negative, Exam: 11:30 Constitutional: This is a well developed, well nourished patient who is awake, alert, sp3 and in no acute distress. Head/Face: Normocephalic, atraumatic. Eyes: Pupils equal round and reactive to light, extra-ocular motions intact. Lids and lashes normal. Conjunctiva and sclera are non-icteric and not injected. Cornea within normal limits. Periorbital areas with no swelling, redness, or edema. ENT: Nares patent. No nasal discharge, no septal abnormalities noted. External auditory canals are clear. Oropharynx with no redness, swelling, or masses, exudates, or evidence of obstruction, uvula midline. Mucous membranes moist. Chest/axilla: Normal chest wall appearance and motion. Nontender with no deformity. No lesions are appreciated. Cardiovascular: Regular rate and rhythm with a normal S1 and S2. No gallops, murmurs, or rubs. Normal PMI, no JVD. No pulse deficits. Respiratory: Lungs have equal breath sounds bilaterally, clear to auscultation and percussion. No rales, rhonchi or wheezes noted. No increased work of breathing, no retractions or nasal flaring. Abdomen/GI: Soft, non-tender, with normal bowel sounds. No distension or tympany. No guarding or rebound. No evidence of tenderness throughout. Back: No spinal tenderness. No costovertebral tenderness. Full range of motion. Skin: Warm, dry with normal turgor. Normal color with no rashes, no lesions, and no evidence of cellulitis. 11:30 Neck: Mild pain on movement. Normal neurovascular exam. Carotid arteries were normal., Vital Signs: 11:19 BP 131 / 93; Pulse 87; Resp 19; Temp 98.6; Pulse Ox 97% on R/A; Weight 95.25 kg; Height iw 5 ft. 8 in. ; Pain 7/10; 11:19 Body Mass Index 31.93 (95.25 kg, 172.72 cm) iw 11:19 Pain Scale: Adult iw MDM: 11:22 Medical Screening Exam initiated sp3 11:31 Data reviewed: vital signs, nurses notes, old medical records. ED course: Have reviewed sp3 prior records. I do not believe patient's symptoms are acute and I have advised him to go back on his Suboxone with his existing physician relationship. No further intervention indicated in the ED. Clinically I have ruled out any other critical emergency at this time.. Administered Medications: No medications were administered Disposition Summary: 01/22/25 11:31 Discharge Ordered Notes: Location: Home sp3 Condition: Stable sp3 Diagnosis - Other chronic pain sp3 Followup: sp3 - With: Private Physician - When: Upon discharge from the Emergency Department - Reason: Continuance of care Discharge Instructions: - Discharge Summary Sheet sp3 - Chronic Pain, Adult sp3 Forms: - Medication Reconciliation Form sp3 - Antibiotic Education sp3 - Prescription Opioid Use sp3 - Patient Portal Instructions sp3 - Leadership Thank You Letter sp3 Signatures: Gabi Paulson RN RN Izaiah Mahoney MD MD sp3
--- OUTSIDE RECORDS SUMMARY | 2025-01-22 11:34 | XMS REPORT | Continuity of Care Document ---
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 Maris[facility]rero [facility] Body temperature 2022-05-23 08:00:00 36.83 Franci [facility] Respiratory rate 2022-05-23 08:00:00 20 /min [facility] Oxygen saturation in Arterial blood by Pulse oximetry 2022-05-23 08:00:00 95 /min [facility] Body height 2022-05-19 11:13:00 172.7 cm [facility] Body weight 2022-05-19 11:13:00 81.557 kg [facility] BMI 2022-05-19 11:13:00 27.34 kg/m2 [facility] Procedures Procedure Date / Time Performed Performing Clinician Source ASSIGNMENT OF BENEFITS 2023-11-01 20:19:08 Docto r Unassigned, [place] [facility] CONSENT/REFUSAL FOR DIAGNOSIS AND TREATMENT 2023-11-01 18:57:25 Doctor Unassigned, [place] [facility] CONSENT/REFUSAL FOR DIAGNOSIS AND TREATMENT 2023-10-02 17:51:45 Doctor Unassigned, [place] [facility] NOTICE OF PRIVACY PRACTICES 2023-09-29 00:09:30 Doctor Unassigned, [place] [facility] CONSENT/REFUSAL FOR DIAGNOSIS AND TREATMENT 2023-09-29 00:09:09 Doctor Unassigned, [place] [facility] CONSENT/REFUSAL FOR DIAGNOSIS AND TREATMENT 2022-06-06 17:25:33 Doctor Unassigned, [place] [facility] BASIC METABOLIC PANEL 2022-06-02 03:57:00 [facility] BASIC METABOLIC PANEL 2022-06-02 03:57:00 Ian Lawson [facility] AMIKACIN, TROUGH LEVEL 2022-05-31 21:13:00 Mely Soliz [facility] AMIKACIN, TROUGH LEVEL 2022-05-31 21:13:00 Heydi Melyjayshree Palomares [facility] WOUND/ABSCESS CULTURE AND GRAM STAIN 2022-05-31 08:53:00 Germán [facility] AF[employer] STAIN AND CULTURE 2022-05-31 08:53:00 Germán [facility] ANAEROBE CULTURE 2022-05-31 08:53:00 Germán, [facility] FUNGUS STAIN AND CULTURE 2022-05-31 08:53:00 Germán, C [employer] STAIN AND CULTURE 2022-05-31 08:53:00 Germán [facility] ANAEROBE CULTURE 2022-05-31 08:53:00 Germán, [facility] FUNGUS STAIN AND CULTURE 2022-05-31 08:53:00 GermánPilo [employer] WOUND/ABSCESS CULTURE AND GRAM STAIN 2022-05-31 08:53:00 Germán [facility] BASIC METABOLIC PANEL 2022-05-31 05:12:00 [facility] METABOLIC PANEL 2022-05-31 05:12:00 [facility] GLUCOSE POC 2022-05-29 08:04:00 [facility] GLUCOSE POC 2022-05-29 08:04:00 [facility] CBC (WITHOUT DIFFERENTIAL) 2022-05-29 04:33:[address] [facility] BASIC METABOLIC PANEL 2022-05-29 04:33:00 Ian [facility] BASIC METABOLIC PANEL 2022-05-29 04:33:00 [facility] CBC (WITHOUT DIFFERENTIAL) 2022-05-29 04:33:[address] [facility] GLUCOSE POC 2022-05-28 16:49:00 MarcinLupe [facility] GLUCOSE POC 2022-05-28 16:49:00 [facility] GLUCOSE POC 2022-05-28 11:46:00 [facility]cin[facility] GLUCOSE POC 2022-05-28 11:46:00 [facility] GLUCOSE POC 2022-05-28 08:24:00 MarcinLupe [facility] GLUCOSE POC 2022-05-28 08:24:00 [facility] CBC (WITHOUT DIFFERENTIAL) 2022-05-28 04:36:00 [facility] BASIC METABOLIC PANEL 2022-05-28 04:36:00 Lawson Ian wilson H [facility] BASIC METABOLIC PANEL 2022-05-28 04:36:00 Lawson Ian wilson [facility] CBC (WITHOUT DIFFERENTIAL) 2022-05-28 04:36:00 Lawson Heath Garcia [facility] CBC (WITHOUT DIFFERENTIAL) 2022-05-27 05:10:00 Lawson Heath [facility] BASIC METABOLIC PANEL 2022-05-27 05:10:00 Lawson Ian Garcia [facility] AMIKACIN, RANDOM LEVEL 2022-05-27 05:10:00 Marcin, Da vid S [facility] BASIC METABOLIC PANEL 2022-05-27 05:10:00 Lawson Ian wilson [facility] CBC (WITHOUT DIFFERENTIAL) 2022-05-27 05:10:00 Lawson Heath Garcia [facility] AMIKACIN, RANDOM LEVEL 2022-05-27 05:10:00 Marcin, Da vid S [facility] AMIKACIN, RANDOM LEVEL 2022-05-26 23:35:00 Marcin, Da vid S [facility] AMIKACIN, RANDOM LEVEL 2022-05-26 23:35:00 Marcin, Da vid S [facility] AMIKACIN, TROUGH LEVEL 2022-05-26 05:53:00 Hazel Obando [facility] CBC (WITHOUT DIFFERENTIAL) 2022-05-26 05:53:00 Lawson Heath Garcia [facility] BASIC METABOLIC PANEL 2022-05-26 05:53:00 Lawson Ian Garcia [facility] BASIC METABOLIC PANEL 2022-05-26 05:53:00 Lawson [facility] CBC (WITHOUT DIFFERENTIAL) 2022-05-26 05:53:00 Lulu [facility] AMIKACIN, TROUGH LEVEL 2022-05-26 05:53:00 Hazel Obando [facility] CONSULT CLINICAL CASE MANAGEMENT (RN/SW) 2022-05-25 14:55:14 Myles Lazcano [facility] CONSULT CLINICAL CASE MANAGEMENT (RN/SW) 2022-05-25 14:55:14 Myles Lazcano [facility] CBC/DIFF 2022-05-25 08:24:00 [facility] BASIC METABOLIC PANEL 2022-05-25 08:24:00 Lawson [facility] CBC 2022-05-25 08:24:00 [facility] BASIC METABOLIC PANEL 2022-05-25 08:24:00 [facility] CBC/DIFF 2022-05-25 08:24:00 [facility] CBC 2022-05-25 08:24:00 [facility] ANAEROBE CULTURE 2022-05-24 20:47:00 [facility]ABSCESS CULTURE AND GRAM STAIN 2022-05-24 20:47:00 [facility] 2022-05-24 20:47:00 [facility] WOUND/ABSCESS CULTURE AND GRAM STAIN 2022-05-24 20:47:00 Germán [facility] [employer] STAIN AND CULTURE 2022-05-24 15:44:00 Germán [facility] FUNGUS STAIN AND CULTURE 2022-05-24 15:44:00 Pilo Dunlap [facility] [employer] STAIN AND CULTURE 2022-05-24 15:44:00 Germán [facility] FUNGUS STAIN AND CULTURE 2022-05-24 15:44:00 Pilo Dunlap [facility] INFUSION PUMP 2022-05-24 04:24:23 Lupe Burch [facility] INFUSION PUMP 2022-05-24 04:24:23 Lupe Burch [facility] CBC/DIFF 2022-05-24 04:22:00 EdmundmaryYasmany [facility] CBC 2022-05-24 04:22:00 JsabirYasmany marcelino [facility] CBC/DIFF 2022-05-24 04:22:00 Yasmany Gonzalez [facility] CBC 2022-05-24 04:22:00 Yasmany Gonzalez [facility] HIV AG/AB COMBO DIAGNOSTIC/SYMPTOMATIC 2022-05-23 18:44:00 [facility] HEPATITIS PANEL 2022-05-23 18:44:00 Adore, [facility] HEPATITIS PANEL 2022-05-23 18:44:00 Adore [facility] HIV AG/AB COMBO DIAGNOSTIC/SYMPTOMATIC 2022-05-23 18:44:00 [facility] SARS-COV-2, FLU A/B, RSV 2022-05-23 15:41:00 Orlando Donald [facility] CORONAVIRUS, COVID-19, YOKASTA 2022-05-23 15:41:[facility], COVID-19, YOKASTA 2022-05-23 15:41:00 Orlando Donald [facility] SARS-COV-2, FLU A/B, RSV 2022-05-23 15:41:00 Orlando Donald [facility] BASIC METABOLIC PANEL 2022-05-23 11:25:00 German Mckinney [facility] CBC/DIFF 2022-05-23 11:25:00 Stefanie Mckinney [facility] CBC 2022-05-23 11:25:00 Stefanie Mckinney [facility] SED RATE 2022-05-23 11:25:00 Orlando Donald [facility] C-REACTIVE PROT 2022-05-23 11:25:00 Orlando Donald [facility] BASIC METABOLIC PANEL 2022-05-23 11:25:00 German Mckinney [facility] CBC/DIFF 2022-05-23 11:25:00 Stefanie Mckinney [facility] C-REACTIVE PROT 2022-05-23 11:25:00 Orlando [facility] SED RATE 2022-05-23 11:25:00 [facility] 2022-05-23 11:25:00 Stefanie Mckinney [facility] BEDSIDE ULTRASOUND 2022-05-23 11:08:27 Unknown, Provider [facility] HC POC URINE DRUG SCREEN 2022-05-19 21:30:00 [facility] HC POC URINE DRUG SCREEN 2022-05-19 21:30:00 [facility] I&D OF ABSCESS 2022-05-19 19:03:24 Donell Marrufosarah Jaramillo [facility] I&D OF ABSCESS 2022-05-19 19:03:24 Niru Chris Jaramillo [facility] WOUND/ABSCESS CULTURE AND GRAM STAIN 2022-05-19 18:54:00 [facility]ABSCESS CULTURE AND GRAM STAIN 2022-05-19 18:54:00 Niru Chris Located Within [facility] XRAY FOREARM 2 VIEWS MIN 2022-05-19 17:04:37 Keagan Wells [facility] XRAY FOREARM 2 VIEWS MIN 2022-05-19 17:04:37 Russell Keagan [facility] CBC/DIFF 2022-05-19 14:29:00 Russell [facility] BASIC METABOLIC PANEL 2022-05-19 14:29:00 Russell Dana [facility] LACTIC ACID 2022-05-19 14:29:00 [facility]-05-19 14:29:00 [facility] 2022-05-19 14:29:00 Russell [facility] C-REACTIVE PROT 2022-05-19 14:29:00 Russell [facility] BASIC METABOLIC PANEL 2022-05-19 14:29:00 Dana Wells [facility] CBC/DIFF 2022-05-19 14:29:00 Tramaine [facility] C-REACTIVE PROT 2022-05-19 14:29:00 Russell [facility] LACTIC ACID 2022-05-19 14:29:00 Tramaine [facility] SED RATE 2022-05-19 14:29:00 Russell [facility] CBC 2022-05-19 14:29:00 Naomi Wells [facility] HC POC URINE DRUG SCREEN 2022-05-19 11:15:00 [facility] HC POC URINE DRUG SCREEN 2022-05-19 11:15:00 [facility] POC COVID-19 2022-05-17 17:50:00 Kerline [facility] URINE DRUG SCREEN 2022-05-12 17:47:00 Bartoloimudneema Rebel [facility] POC URINE DRUG SCREEN 2022-05-12 17:47:00 [facility] POC COVID-19 2022-05-11 23:56:00 [facility]bel [facility] XRAY WRIST 3 VIEWS MIN 2022-05-11 17:04:00 [facility] CBC/DIFF 2022-05-11 16:20:00 Michael [facility] BASIC METABOLIC PANEL 2022-05-11 16:20:[address] [facility] HIV AG/AB COMBO ROUTINE SCREENING 2022-05-11 16:20:00 [facility] CBC 2022-05-11 16:20:00 Michael [facility] URINE DRUG (IMMUNOASSAY) - COMPREHENSIVE DRUG SCREEN 2021-01-30 22:04:00 Shy Martin [facility] HEPATIC FUNCTION PANEL (88846) (ALB,T.PRO,BILI T,BU/BC,ALT,AST,ALK PHOS) 2021-01-30 22:03:00 Shy Martin [facility] BASIC METABOLIC PANEL (NA, K, CL, CO2, GLUCOSE, BUN, CREATININE, CA) 2021-01-30 22:03:00 Shy Martin [facility] SALICYLATE 2021-01-30 22:03:00 [facility] 2021-01-30 22:03:00 Shy Martin Un [facility] CBC WITH DIFF 2021-01-30 22:03:00 Shy [facility] URINALYSIS 2021-01-30 22:02:00 [facility]y [facility] (ID NOW RAPID TESTING) 2021-01-30 22:02:00 Shy Martin [facility] NOTICE OF PRIVACY PRACTICES 2021-01-30 21:37:21 Doctor Unassigned, [place] [facility] CONSENT/REFUSAL FOR DIAGNOSIS AND TREATMENT 2021-01-30 21:37:00 Doctor Unassigned, [place] [facility] Plan of Care Planned Activity Planned Date Details Comments [facility] Scheduled Test 2023-07-02 00:00:00 IMM Influenza Seasonal (>/= 19 yrs) [code = IMM Influenza Seasonal (>/= 19 yrs)] [facility] Scheduled Test 2023-07-02 00:00:00 IMM Influenza Seasonal (>/= 19 yrs) [code = IMM Influenza Seasonal (>/= 19 yrs)] [facility] Scheduled Test 2023-06-02 00:00:00 IMM Influenza Seasonal (>/= 19 yrs) [code = IMM Influenza Seasonal (>/= 19 yrs)] [facility] Scheduled Test 2023-06-02 00:00:00 IMM Influenza Seasonal (>/= 19 yrs) [code = IMM Influenza Seasonal (>/= 19 yrs)] [facility] Scheduled Test 2023-06-02 00:00:00 IMM Influenza Seasonal (>/= 19 yrs) [code = IMM Influenza Seasonal (>/= 19 yrs)] [facility] Scheduled Test 2023-06-02 00:00:00 IMM Influenza Seasonal (>/= 19 yrs) [code = IMM Influenza Seasonal (>/= 19 yrs)] [facility] Scheduled Test 2023-06-02 00:00:00 IMM Influenza Seasonal (>/= 19 yrs) [code = IMM Influenza Seasonal (>/= 19 yrs)] [facility] Scheduled Test 2023-06-02 00:00:00 COVID-19 Vaccine ( season) [code = COVID-19 Vaccine ( season)] [facility] Scheduled Test 2023-06-02 00:00:00 IMM Influenza Seasonal (>/= 19 yrs) [code = IMM Influenza Seasonal (>/= 19 yrs)] [facility] Scheduled Test 2023-06-02 00:00:00 COVID-19 Vaccine ( season) [code = COVID-19 Vaccine ( season)] [facility] Scheduled Test 2023-06-02 00:00:00 IMM Influenza Seasonal (>/= 19 yrs) [code = IMM Influenza Seasonal (>/= 19 yrs)] [facility] Scheduled Test 2022-07-02 00:00:00 IMM Influenza Seasonal (>/= 19 yrs) [code = IMM Influenza Seasonal (>/= 19 yrs)] [facility] Scheduled Test 2022-07-02 00:00:00 IMM Influenza Seasonal (>/= 19 yrs) [code = IMM Influenza Seasonal (>/= 19 yrs)] [facility] Scheduled Test 2022-07-02 00:00:00 IMM Influenza Seasonal (>/= 19 yrs) [code = IMM Influenza Seasonal (>/= 19 yrs)] [facility] Scheduled Test 1992 00:00:00 Imm Pneumococcal 0-64 (1 - PCV) [code = Imm Pneumococcal 0-64 (1 - PCV)] [facility] Scheduled Test 1992 00:00:00 Imm Pneumococcal 0-64 (1 - PCV) [code = Imm Pneumococcal 0-64 (1 - PCV)] [facility] Scheduled Test 1992 00:00:00 Imm Pneumococcal 0-64 (1 - PCV) [code = Imm Pneumococcal 0-64 (1 - PCV)] [facility] Scheduled Test 1992 00:00:00 Imm Pneumococcal 0-64 (1 - PCV) [code = Imm Pneumococcal 0-64 (1 - PCV)] [facility] Scheduled Test 1992 00:00:00 Imm Pneumococcal 0-64 (1 - PCV) [code = Imm Pneumococcal 0-64 (1 - PCV)] [facility] Scheduled Test 1992 00:00:00 Imm Pneumococcal 0-64 (1 - PCV) [code = Imm Pneumococcal 0-64 (1 - PCV)] [facility] Scheduled Test 1992 00:00:00 Imm Pneumococcal 0-64 (1 - PCV) [code = Imm Pneumococcal 0-64 (1 - PCV)] [facility] Scheduled Test 1992 00:00:00 Imm Pneumococcal 0-64 (1 - PCV) [code = Imm Pneumococcal 0-64 (1 - PCV)] [facility] Scheduled Test 1992 00:00:00 Imm Pneumococcal 0-64 (1 of 2 - PCV) [code = Imm Pneumococcal 0-64 (1 of 2 - PCV)] [facility] Scheduled Test 1992 00:00:00 Imm Pneumococcal 0-64 (1 of 2 - PCV) [code = Imm Pneumococcal 0-64 (1 of 2 - PCV)] [facility] Scheduled Test 1992 00:00:00 Imm Pneumococcal 0-64 (1 of 2 - PCV) [code = Imm Pneumococcal 0-64 (1 of 2 - PCV)] [facility] Scheduled Test 1992 00:00:00 Imm Pneumococcal 0-64 (1 of 2 - PCV) [code = Imm Pneumococcal 0-64 (1 of 2 - PCV)] [facility] Scheduled Test 1986 00:00:00 COVID-19 Vaccine (#1) [code = COVID-19 Vaccine (#1)] [facility] Scheduled Test 1986 00:00:00 COVID-19 Vaccine (#1) [code = COVID-19 Vaccine (#1)] [facility] Scheduled Test 1986 00:00:00 COVID-19 Vaccine (#1) [code = COVID-19 Vaccine (#1)] [facility] Scheduled Test 1986 00:00:00 COVID-19 Vaccine (#1) [code = COVID-19 Vaccine (#1)] [facility] Scheduled Test 1986 00:00:00 COVID-19 Vaccine (#1) [code = COVID-19 Vaccine (#1)] [facility] Scheduled Test 1986 00:00:00 COVID-19 Vaccine (#1) [code = COVID-19 Vaccine (#1)] [facility] Scheduled Test 1986 00:00:00 COVID-19 Vaccine (#1) [code = COVID-19 Vaccine (#1)] [facility] Scheduled Test 1986 00:00:00 COVID-19 Vaccine (#1) [code = COVID-19 Vaccine (#1)] [facility] Scheduled Test 1986 00:00:00 COVID-19 Vaccine (#1) [code = COVID-19 Vaccine (#1)] [facility] Scheduled Test 1986 00:00:00 COVID-19 Vaccine (#1) [code = COVID-19 Vaccine (#1)] [facility] Scheduled Test 1986 00:00:00 Fluoride Varnish [code = Fluoride Varnish] [facility] Scheduled Test 1986 00:00:00 Fluoride Varnish [code = Fluoride Varnish] [facility] Encounters Start Date/Time End Date/Time Encounter Type Admission Type Attending [facility] Care Department Encounter ID Source 2022-06-15 12:36:45 Outpatient [facility] [id number] [facility] 2022-06-14 12:01:29 Emergency [facility] [id number] [facility] ent 2022-06-06 23:18:34 Outpatient [facility] [id number] [facility] 2022-06-06 23:16:04 Outpatient [facility] [id number] [facility] 2022-04-06 05:42:38 Outpatient [facility] [id number] [facility] 2020-12-14 08:08:00 Inpatient [facility] [id number] [facility] 2020-12-13 19:49:00 Inpatient [facility] LJ [id number] [facility] 2020-12-06 14:30:44 Inpatient [facility] [id number] [facility] 2024-01-02 00:00:00 2024-01-02 00:00:00 Patient Outreach Tatiana Allen [id number] [facility] 2023-11-01 13:02:00 2023-11-01 14:34:00 Emergency X Ella GONZALEZ [facility] [id number] [facility] 2023-11-01 13:02:00 2023-11-01 14:34:00 Emergency Ella Gonzalez [facility] [id number] [id number] [facility] 2023-10-02 11:59:00 2023-10-02 12:42:00 Emergency DEB CAREY [facility] [id number] [facility] 2023-10-02 11:59:00 2023-10-02 12:42:00 Emergency Deb Burgos [facility] [id number] [id number] [id number] [facility] 2023-09-28 18:19:00 2023-09-28 19:26:00 Emergency DYANA DAILY [facility] ERT [id number] [facility] 2023-09-28 18:19:00 2023-09-28 19:26:00 Emergency Dyana Jorgensen [facility] [id number] 350.1.13.10 [id number] [facility] 2023-09-28 00:00:00 2023-09-28 00:00:00 Orders Only Doctor Unassigned, [place] [facility] [id number] 350.1.13.10 4.2.7.2.[id number] [facility] 2022-07-27 08:49:00 2022-07-27 12:49:[address] [facility] [id number] [facility] 2022-06-24 08:00:00 2022-06-24 08:30:00 Office Visit Fanta Hernandez [facility] [id number] [id number] [facility] 2022-06-20 00:00:00 2022-06-20 00:00:00 Outpatient [facility] [id number] [facility] 2022-06-14 18:10:00 2022-06-17 00:38:00 Emergency E DANIEL MEDINA [place] [address] [facility] 2022-06-14 10:48:00 2022-06-14 15:20:00 Emergency E SITA BUTT [place] [address] [facility] 2022-06-06 12:34:00 2022-06-06 13:23:00 Emergency X SCARRADHA DANIEL [facility] [id number] [facility] 2022-06-06 12:34:00 2022-06-06 13:23:00 Emergency Daniel Dumont [facility] [id number] 350.1.13.10 4.2.7.2.[id number] [facility] 2022-06-03 00:00:00 2022-06-04 22:29:00 Emergency [facility] [id number] [facility] 2022-06-03 00:00:00 2022-06-04 22:29:00 Emergency [facility] [id number] [facility] 2022-06-03 23:37:47 2022-06-03 23:59:00 Outpatient [facility] [id number] [facility] 2022-06-03 21:28:26 2022-06-03 23:36:00 Outpatient [facility] [id number] [facility] 2022-05-23 13:09:00 2022-06-03 18:30:00 Hospital Encounter Jose F Reyes David S [facility] [id number] [id number] [facility] 2022-05-30 16:04:37 2022-05-30 16:04:39 Inpatient [facility] [id number] [facility] 2022-05-23 13:09:00 2022-05-23 13:09:00 Inpatient 1 LUPE BURCH [facility] [id number] [facility] 2022-05-22 19:04:00 2022-05-22 20:39:00 Emergency Kalina Meraz [facility] [id number] [id number] [facility] 2022-05-19 14:06:00 2022-05-19 19:49:00 Emergency 1 DANIEL PETIT [facility] [id number] [facility] 2022-05-19 14:06:00 2022-05-19 19:49:00 Emergency Daniel Petit [facility] [id number] [facility] 2022-05-19 16:50:11 2022-05-19 17:04:43 Emergency [facility] [id number] [facility] 2022-05-18 10:13:00 2022-05-19 10:30:00 Inpatient [facility] [id number] [facility] 2022-05-11 22:33:18 2022-05-18 09:43:00 Inpatient [facility] [id number] [facility] [facility] 2022-[facility]-11 19:53:00 2022-05-11 21:53:00 Emergency Daniel Petit [facility] [id number] [facility] 2022-05-11 19:53:00 2022-05-11 21:53:00 Emergency Daniel Petit [facility] [id number] [facility] 2022-05-11 16:54:18 2022-05-11 17:05:03 Emergency [facility] [id number] [facility] 2022-05-11 16:05:00 2022-05-11 16:05:00 Emergency 1 [facility] [id number] [facility] 2021-01-30 16:48:00 2021-01-30 23:59:00 Emergency Shy [facility] [id number] [facility] 2021-01-30 16:48:00 2021-01-30 16:48:00 Emergency X SHY MARTIN [facility] ERT [id number] [facility] 2021-01-30 00:00:00 2021-01-30 00:00:00 Orders Only Doctor Unassigned, [place] [facility] [id number] [facility] 2020-03-03 09:37:00 2020-03-03 09:37:00 Emergency X [facility] ERT [id number] [facility] Results Test Description Test Time Test Comments Results Result Co mments Source [employer] [facility] Stain & [id number] 11:04:16* Test Item Value Reference Range Interpretation Comme nts AFB Culture (test code = 543-9) No acid fast bacilli isolated in 6 weeks AFB Stain (test code = 676-7) No acid fast bacilli seen TRACY (test code = TRACY) Reference value: N o acid fast bacilli isolated [place] [facility] Stain & Nlsqtjh3364-09-25 11:04:16* Test Item Value Reference Range Interpretation Comme nts AFB Culture (test code = 543-9) No acid fast bacilli isolated in 6 weeks AFB Stain (test code = 676-7) No acid fast bacilli seen TRCAY (test code = TRACY) Reference value: N o acid fast bacilli isolated [facility] [facility] & Zcarpgk1135-81-42 21:02:46* Test Item Value Reference Range Interpretation Comme nts AFB Culture (test code = 543-9) No acid fast bacilli isolated in 6 weeks AFB Stain (test code = 676-7) No acid fast bacilli seen TRACY (test code = TRACY) Reference value: N o acid fast bacilli isolated [facility] & Miwugxu1176-86-04 21:02:45* Test Item Value Reference Range Interpretation Comme nts AFB Culture (test code = 543-9) No acid fast bacilli isolated in 6 weeks AFB Stain (test code = 676-7) No acid fast bacilli seen TRACY (test code = TRACY) Reference value: N o acid fast bacilli isolated [facility] Stain & Zckbpvj2148-18-74 20:02:40* Test Item Value Reference Range Interpretation Comme nts AFB Culture (test code = 543-9) No acid fast bacilli isolated in 6 weeks AFB Stain (test code = 676-7) No acid fast bacilli seen TRACY (test code = TRACY) Reference value: N o acid fast bacilli isolated [place] [facility] & Nfrcxra9456-73-53 19:03:24* Test Item Value Reference Range Interpretation Comme nts Fungus Culture (test code = 580-1) No fungus isolated in 4 weeks Fungus Stain (test code = 658-5) No fungal elements seen TRACY (test code = TRACY) Reference value: N o fungus isolated [facility] & Hqxknlg6008-02-53 19:03:24* Test Item Value Reference Range Interpretation Comme nts Fungus Culture (test code = 580-1) No fungus isolated in 4 weeks Fungus Stain (test code = 658-5) No fungal elements seen TRACY (test code = TRACY) Reference value: N o fungus isolated [facility] & Xzxkmoa4331-42-07 19:03:24* Test Item Value Reference Range Interpretation Comme nts Fungus Culture (test code = 580-1) No fungus isolated in 4 weeks Fungus Stain (test code = 658-5) No fungal elements seen TRACY (test code = TRACY) Reference value: N o fungus isolated [facility] & Tuptrnm9485-14-92 05:04:44* Test Item Value Reference Range Interpretation Comme nts Fungus Culture (test code = 580-1) No fungus isolated in 4 weeks Fungus Stain (test code = 658-5) No fungal elements seen TRACY (test code = TRACY) Reference value: N o fungus isolated [facility] & Ziwvvue7323-55-88 05:04:43* Test Item Value Reference Range Interpretation Comme nts Fungus Culture (test code = 580-1) No fungus isolated in 4 weeks Fungus Stain (test code = 658-5) No fungal elements seen TRACY (test code = TRACY) Reference value: N o fungus isolated [facility] & Idtuxrc4068-51-61 04:04:04* Test Item Value Reference Range Interpretation Comme nts Fungus Culture (test code = 580-1) No fungus isolated in 4 weeks Fungus Stain (test code = 658-5) No fungal elements seen TRACY (test code = TRACY) Reference value: N o fungus isolated [facility] Yauvdoo1377-68-93 06:33:06* Test Item Value Reference Range Interpretation Comme nts Anaerobe Culture (test code = 635-3) No anaerobes isolated in 5 days TRACY (test code = TRACY) Reference value: N o anaerobes isolated [facility] Uuuhrac3994-72-50 06:33:06* Test Item Value Reference Range Interpretation Comme nts Anaerobe Culture (test code = 635-3) No anaerobes isolated in 5 days TRACY (test code = TRACY) Reference value: N o anaerobes isolated [facility] Lwkgdvx4011-21-84 06:33:06* Test Item Value Reference Range Interpretation Comme nts Anaerobe Culture (test code = 635-3) No anaerobes isolated in 5 days TRACY (test code = TRACY) Reference value: N o anaerobes isolated [facility] Wtghchw3990-45-69 06:33:06* Test Item Value Reference Range Interpretation Comme nts Anaerobe Culture (test code = 635-3) No anaerobes isolated in 5 days TRACY (test code = TRACY) Reference value: N o anaerobes isolated [facility] Gram Lruio9424-19-09 08:20:27* Test Item Value Reference Range Interpretation [...] the reference value is considered "No growth". [place] [facility]Abscess Culture & Gram Fyboy1115-59-33 08:20:27* Test Item Value Reference Range Interpretation [...] the reference value is considered "No growth". [place] HealthWound/Abscess Culture & Gram Zuhrv8628-85-19 08:20:27* Test Item Value Reference Range Interpretation [...] the reference value is considered "No growth". [place] HealthWound/Abscess Culture & Gram Xcepa3801-11-53 08:20:27* Test Item Value Reference Range Interpretation [...] the reference value is considered "No growth". [facility] Gram Hroem1446-06-61 10:37:20* Test Item Value Reference Range Interpretation Comme nts Wound Culture (test code = 6463-4) 1+ Acid fast bacilli AA REFER TO [id number] Gram Stain (test code = 664-3) No organisms seen TRACY (test code = TRACY) Reference value: Non-sterile sites may be contaminated with esperanza that is considered normal or otherwise not clinically relevant. As appropriate, normal results will indicate the presence or absence of such esperanza. Otherwise, the reference value is considered "No growth". Lab Interpretation (test code = 42272-6) Abnormal [place] [facility] Spec Lwrp4382-65-86 10:37:20* Test Item Value Reference Range Interpretation Comme nts Bacteria Spec Cult (test code = 6463-4) ACID-FAST BACILLUS AA 1+ Acid fast bacilliREFER TO [id number] Reference value: Non-sterile sites may be contaminated [...] 6463-4) Acid fast bacilli AA REFER TO [id number] Gram Stain (test code = 664-3) No organisms seen TRACY (test code = TRACY) Reference value: Non-sterile sites may be contaminated with esperanza that is considered normal or otherwise not clinically relevant. As appropriate, normal results will indicate the presence or absence of such esperanza. Otherwise, the reference value is considered "No growth". Lab Interpretation (test code = 58529-1) Abnormal [facility] Drww5971-34-98 10:36:38* Test Item Value Reference Range Interpretation Comme nts Bacteria Spec Cult (test code = 6463-4) ACID-FAST BACILLUS AA Acid fast bacilliREFER TO [id number] Reference value: Non-sterile sites may be contaminated [...] 6463-4) Acid fast bacilli AA REFER TO [id number] Gram Stain (test code = 664-3) No organisms seen TRACY (test code = TRACY) Reference value: Non-sterile sites may be contaminated with esperanza that is considered normal or otherwise not clinically relevant. As appropriate, normal results will indicate the presence or absence of such esperanza. Otherwise, the reference value is considered "No growth". Lab Interpretation (test code = 73959-3) Abnormal [facility] Skti9902-12-38 10:35:39* Test Item Value Reference Range Interpretation Comme nts Bacteria Spec Cult (test code = 6463-4) ACID-FAST BACILLUS AA Acid fast bacilliREFER TO [id number] Reference value: Non-sterile sites may be contaminated with esperanza that is considered normal or otherwise not clinically relevant. As appropriate, normal results will indicate the presence or absence of such esperanza. Otherwise, the reference value is considered "No growth".[facility] Gbulubk0929-41-79 09:36:58 * Test Item Value Reference Range Interpretation Comme nts Anaerobe Culture (test code = 635-3) No anaerobes isolated in 5 days TRACY (test code = TRACY) Reference value: N o anaerobes isolated [facility] Koadrpa5830-44-35 09:36:11* Test Item Value Reference Range Interpretation Comme nts Anaerobe Culture (test code = 635-3) No anaerobes isolated in 5 days TRACY (test code = TRACY) Reference value: N o anaerobes isolated [facility] Ldkwdme6819-11-15 09:35:49* Test Item Value Reference Range Interpretation Comme nts Anaerobe Culture (test code = 635-3) No anaerobes isolated in 5 days TRACY (test code = TRACY) Reference value: N o anaerobes isolated [facility] GLUCOSE POC docked rwcwzi3841-38-48 08:05:41* Test Item Value Reference Range Interpretation Comme nts Glucose POC (test code = 35469990) 107 mg/dL 74-106 H MD dependency program director Notifie d Lab Interpretation (test code = 72272-1) Abnormal [facility] GLU[facility]SE POC docked hgtpsk3547-86-96 08:05:41* Test Item Value Reference Range Interpretation Comme nts Glucose POC (test code = 81286388) 107 mg/dL 74-106 H MD dependency program director Notifie d Lab Interpretation (test code = 40809-5) Abnormal [facility] GLU[facility]SE POC docked ttyycn2810-16-48 08:05:41* Test Item Value Reference Range Interpretation Comme nts Glucose POC (test code = 38467712) 107 mg/dL 74-106 H MD dependency program director Notifie d Lab Interpretation (test code = 15824-4) Abnormal [facility] GLU[facility]SE POC docked mshdey9073-43-93 08:05:41* Test Item Value Reference Range Interpretation Comme nts Glucose POC (test code = 73327715) 107 mg/dL 74-106 H MD dependency program director Notifie d Lab Interpretation (test code = 07800-8) Abnormal [facility] GLU[facility]SE POC docked tviyij6068-63-28 16:50:48* Test Item Value Reference Range Interpretation Comme nts Glucose POC (test code = 93255594) 107 mg/dL 74-106 H Lab Interpretation (test cod e = 60664-7) Abnormal [facility] GLU[facility]SE POC docked tdkvie4290-82-95 11:46:44* Test Item Value Reference Range Interpretation Comme nts Glucose POC (test code = 35256778) 89 mg/dL 74-106 Lab Interpretation (test cod e = 29753-7) Normal [facility] GLUCOSE POC docked aobzxa3862-55-44 08:25:07* Test Item Value Reference Range Interpretation Comme nts Glucose POC (test code = 53092064) 83 mg/dL 74-106 Lab Interpretation (test cod e = 52895-6) Normal [facility] Houn9019-45-05 14:19:13* Test Item Value Reference Range Interpretation Comme nts Bacteria Spec Cult (test code = 6463-4) ACID-FAST BACILLUS AA 4+ Acid fast bacilli HHSHIV 1+2 Ab+HIV1 p24 Ag SerPl Ql [id number] 19:49:40* Test Item Value Reference Range Interpretation Comme nts HIV 1+2 Ab+HIV1 p24 Ag SerPl Ql IA (test code = 06806-8) NEGATIVE Negative HHSCoronavirus, CoVID-19, [id number] 16:40:22* Test Item Value Reference Range Interpretation Comments COVID-19 (SARS-COV-2) (test code = 56941-6) Not Detected Not Detected INTERPRETATION: No detectable [...] its performance characteristics were verified by the [facility] molecular diagnostics laboratory and is authorized for clinical diagnostic use. This laboratory is certified under the Clinical Laboratory Improvement Amendments (CLIA) as qualified to perform high complexity clinical laboratory testing. Lab Interpretation (test code = 99254-5) Normal [place] JakeCoronavirus, CoVID-19, [id number] 16:40:22* Test Item Value Reference Range Interpretation Comments COVID-19 (SARS-COV-2) (test code = 11313-0) Not Detected Not Detected INTERPRETATION: No detectable [...] its performance characteristics were verified by the [facility] molecular diagnostics laboratory and is authorized for clinical diagnostic use. This laboratory is certified under the Clinical Laboratory Improvement Amendments (CLIA) as qualified to perform high complexity clinical laboratory testing. Lab Interpretation (test code = 97285-5) Normal [facility] SystemH[facility]aronavirus, CoVID-19, [id number] 16:40:22* Test Item Value Reference Range Interpretation Comments COVID-19 (SARS-COV-2) (test code = 40483-6) Not Detected Not Detected INTERPRETATION: No detectable [...] its performance characteristics were verified by the [facility] molecular diagnostics laboratory and is authorized for clinical diagnostic use. This laboratory is certified under the Clinical Laboratory Improvement Amendments (CLIA) as qualified to perform high complexity clinical laboratory testing. Lab Interpretation (test code = 10156-1) Normal [place] HealthCoronavirus, CoVID-19, [id number] 16:40:22* Test Item Value Reference Range Interpretation Comments COVID-19 (SARS-COV-2) (test code = 03750-7) Not Detected Not Detected INTERPRETATION: No detectable [...] its performance characteristics were verified by the [facility] molecular diagnostics laboratory and is authorized for clinical diagnostic use. This laboratory is certified under the Clinical Laboratory Improvement Amendments (CLIA) as qualified to perform high complexity clinical laboratory testing. Lab Interpretation (test code = 71871-8) Normal [facility] SystemExokttMKVD-VbN-9 RNA Resp Ql YOKASTA+erstp3513-82-79 16:40:22* Test Item Value Reference Range Interpretation Comme nts Hospitalized? (test code = 89111-1) No ICU? (test code = 71409-9) No Symptomatic as defined by CDC? (test code = 82887-9) No Employed in Healthcare? (test code = 79171-3) Unknown Resident in a congregate care setting (including nursing homes, residential care for people with intellectual and developmental disabilities, psychiatric treatment facilities, group homes, board and care homes, homeless detention, foster care or other): (test code = 26146-5) Unknown SARS-CoV-2 RNA Resp Ql YOKASTA+probe (test code = 10677-3) NOT DETECTED Not Detected INTERPRETATION: No detectable [...] its performance characteristics were verified by the [facility] molecular diagnostics laboratory and is authorized for clinical diagnostic use. This laboratory is certified under the Clinical Laboratory Improvement Amendments(CLIA) as qualified to perform high complexity clinical laboratory testing.HHSHIV 1+2 Ab+HIV1 p24 Ag SerPl Ql [id number] 17:45:02* Test Item Value Reference Range Interpretation Comme nts HIV 1+2 Ab+HIV1 p24 Ag SerPl Ql [place] (test code = 96321-4) NEGATIVE Negative FVTMNGJJGYPSY5188-27-77 23:16:25* Test Item Value Reference Range Interpretation Comme nts SALICYLATE (test code = 8671070599) <10 mg/L TRACY (test code = TRACY) Therapeutic Range: ? Analgesic and Antipyretic Use ? 20-100 mg/L ? ? Anti-Inflammatory Use ? 100-250 mg/L Toxic Range: ? Greater than 300 mg/L [facility]OL[facility]21[facility] 23:16:15* Test Item Value Reference Range Interpretation Comme nts ALCOHOL (test code = 4065973872) <10 mg/dL TRACY (test code = TRACY) <10 Axxjlozv16-456 Toxic>100 Depression of TELEVISION PROGRAM DIRECTOR>400 Fatalities Reported [facility] CenterACETAMINOPHEN2021-05-01 23:16:10* Test Item Value Reference Range Interpretation Comme nts ACETAMINOP (test code = 0636613109) <10.0 10.0-30.0 L TRACY (test code = TRACY) Toxic: Greater chela n 200 ug/mL @ 4 hour post ingestion or greater than 50 ug/mL @ 12 hour post ingestion Lab Interpretation (test code = 21389-6) Abnormal [facility] CenterHepatic Function Panel (ALB, T.PRO, BILI T, BU/BC, ALT, AST, ALK PHOS)2021-01-30 23:14:14* Test Item Value Reference Range Interpretation Comme nts TOTAL BILI (test code = 5989236066) 0.8 mg/dL 0.1-1.1 BILI UNCON (test code = 5274828100) 0.6 mg/dL 0.1-1.1 BILI CONJ (test code = 3511238628) 0.0 mg/dL 0.0-0.3 T PROTEIN (test code = 7649967905) 7.5 g/dL 6.3-8.2 ALBUMIN (test code = 9842198413) 4.8 g/dL 3.5-5.0 ALK PHOS (test code = 7880894698) 63 U/L 34-122 ALTv (test code = 1742-6) 33 U/L 5-50 AST(SGOT) (test code = 0938952804) 36 U/L 13-40 Lab Interpretation (test cod e = 52426-6) Normal [facility] Center[facility] Metabolic Panel (NA, K, CL, CO2, GLUCOSE, BUN, CREATININE, CA)2021-01-30 23:13:54* Test Item Value Reference Range Interpretation Comme nts NA (test code = 9791044634) 142 mmol/L 135-145 K (test code = 9574875418) 4.3 mmol/L 3.5-5.0 CL (test code = 9382411175) 105 mmol/L 98-108 CO2 TOTAL (test code = 8476532722) 25 mmol/L 23-31 AGAP (test code = 3738386054) 2-16 BUN (test code = 0319039400) 17 mg/dL 7-23 GLUCOSE (test code = 5172428643) 86 mg/dL 70-110 CREATININE (test code = 1968665645) 0.85 mg/dL 0.60-1.25 CALCIUM (test code = 7605884921) 9.9 mg/dL 8.6-10.6 eGFR (test code = 6027736820) mL/min/1.73m2 TRACY (test code = TRACY) Association [...] Medical CenterURINE DRUG (IMMUNOASSAY) - COMPREHENSIVE DRUG [id number] 23:05:57* Test Item Value Reference Range Interpretation Comme nts AMPHET (test code = 1942442884) Presumptive Positive Negative A CHACORTA U (test code = 1280251588) Negative Negative BENZO U (test code = 6784601754) Presumptive Positive Negative A Cocaine Metabolite (test code = 6125672887) Negative Negative METHADONE (test code = 2597718868) Negative Negative OPIATES (test code = 8663473277) Presumptive Positive Negative A PCP (test code = 7643635403) Negative Negative THC (test code = 7986183338) Presumptive Positive Negative A TRACY (test code [...] legal testing). Lab Interpretation (test code = 13037-8) Abnormal [facility] CenterCOVID-[facility] (ID NOW RAPID TESTING)2021-01-30 22:34:55* Test Item Value Reference Range Interpretation Comme [facility] SARS-CoV-2 Rapid ID NOW (test code = 59263-5) Not Detected Not Detected TRACY (test code = TRACY) ID NOW COVID-19 As say is an isothermal nucleic acid amplification test intended for the qualitative detection of nucleic acid from SARS-CoV-2 viral RNA in nasopharyngeal (BUNCHER MACHINE) specimens. It is used under Emergency Use [...] clinically indicated. Lab Interpretation (test code = 13966-9) Normal [facility] CenterUrinalysis2021-05-01 22:30:19* Test Item Value Reference Range Interpretation Comme nts APPEARANCE (test code = 4205920839) Clear Clear COLOR (test code = 5804048335) Yellow Yellow PH (test code = 6864567725) 4.8-8.0 SP GRAVITY (test code = 6598101076) 1.003-1.030 GLU U QUAL (test code = 3393556264) Normal Normal BLOOD (test code = 3416041230) Negative Negative KETONES (test code = 7293310199) Negative Negative PROTEIN (test code = 2887-8) Negative Negative UROBILIN (test code = 3930679379) 2.0 mg/dL Normal A BILIRUBIN (test code = 7660215494) Negative Negative NITRITE (test code = 2289926056) Negative Negative LEUK DIONE (test code = 2934647861) Negative Negative RBC/HPF (test code = 1837530401) See_Comment [Automated smsPREPa ge] The system which generated this result transmitted reference range: 0 - 3 HPF. The reference range was not used to interpret this result as normal/abnormal. WBC/HPF (test code = 6375200916) <1 See_Comment [Automated smsPREPa ge] The system which generated this result transmitted reference range: 0 - 5 HPF. The reference range was not used to interpret this result as normal/abnormal. BACTERIA (test code = 2117373595) Negative Negative SQ EPITH (test code = 4163082439) <1 HPF Lab Interpretation (test code = 35250-0) Abnormal [facility] CenterCB with Mtloqjotvcou6879-85-24 22:19:35* Test Item Value Reference Range Interpretation Comme nts WBC (test code = 6690-2) See_Comment H [Automated smsPREPa ge] The system which generated this result [...] 34.6 g/dL 31.2-35.0 RDW-SD (test code = 53786-3) 42.8 fL 38.5-51.6 RDW-CV (test code = 788-0) 13.3 % 12.1-15.4 PLT (test code = 777-3) See_Comment H [Automated smsPREPa ge] The system which generated this result transmitted reference range: 150 - 328 10*3/?L. The reference range was not used to interpret this result as normal/abnormal. MPV (test code = 91236-0) 9.9 fL 9.8-13.0 NRBC/100 WBC (test code = 3331178974) See_Comment [Automated [employer] ss[employer]] The system which generated this result transmitted reference range: 0.0 - 10.0 /100 WBCs. The reference range was not used to interpret this result as normal/abnormal. NRBC x10^3 (test code = 5253046769) <0.01 See_Comment [Automated messa ge] The system which generated this result transmitted reference range: 10*3/?L. The reference range was not used to interpret this result as normal/abnormal. GRAN MAT (NEUT) % (test code = 770-8) 79.2 % IMM GRAN % (test code = 6719515937) 0.50 % LYMPH % (test code = 736-9) 14.8 % MONO % (test code = 5905-5) 4.9 % EOS % (test code = 713-8) 0.2 % BASO % (test code = 706-2) 0.4 % GRAN MAT x10^3(ANC) (test code = 7906286385) 9.77 10*3/uL 1.99-6.95 H IMM GRAN x10^3 (test code = 5737711532) 0.06 10*3/uL 0.00-0.06 LYMPH x10^3 (test code = 731-0) 1.82 10*3/uL 1.09-3.23 MONO x10^3 (test code = 742-7) 0.60 10*3/uL 0.36-1.02 EOS x10^3 (test code = 711-2) 0.03 10*3/uL 0.06-0.53 L BASO x10^3 (test code = 704-7) 0.05 10*3/uL 0.01-0.09 Lab Interpretation (test code = 74357-8) Abnormal [facility] [id number] 20:48:00* Test Item Value Reference Range Interpretation Comme nts COVID 19 INHOUSE AG (test co de = [id number]) NEGATIVE URINALYSIS ZYWOUXHG7308-37-62 16:11:00* Test Item Value Reference Range Interpretation [...] Urine Source? Clean CatchDRUGS OF ABUSE SCREEN [id number] 16:11:00* Test Item Value Reference Range Interpretation [...] result as normal/abnormal. Urine Source? Clean CatchURINALYSIS [id number] 15:45:00* Test Item Value Reference Range Interpretation [...] Urine Source? Clean CatchDRUGS OF ABUSE SCREEN [id number] 15:45:00* Test Item Value Reference Range Interpretation Comme nts URN COCAINE (test code = COCAURN) NEGATIVE See_Comment [Automated messa ge] The system which generated this result transmitted reference range: <300 ng/mL. The reference range was not used to interpret this result as normal/abnormal. URN CANNABINOIDS (test code = CANNABURN) NEGATIVE See_Comment [Automated [employer]] The system which generated this result transmitted reference range: <50 ng/mL. The reference range was not used to interpret this result as normal/abnormal. URN AMPHETAMINE (test code = AMPHETURN) NEGATIVE See_Comment [Automated [employer]] The system which generated this result transmitted reference range: <1000 ng/mL. The reference range was not used to interpret this result as normal/abnormal. URN BARBITURATE (test code = BARBITURN) NEGATIVE See_Comment [Automated [employer]] The system which generated this result [...] OPIATES (test code = OPIATURN) See_Comment [Automated smsPREPa ge] The system which generated this result [...] (test code = METHAURN) NEGATIVE See_Comment [Automated smsPREPa ge] The system which generated this result transmitted reference range: <300 ng/mL. The reference range was not used to interpret this result as normal/abnormal. Urine Source? Clean CatchURINALYSIS [id number] 14:21:00* Test Item Value Reference Range Interpretation [...] Urine Source? Clean CatchDRUGS OF ABUSE SCREEN [id number] 14:21:00* Test Item Value Reference Range Interpretation [...] METHADONE (test code = METHAURN) See_Comment [Automated smsPREPa Cinsay] The system which generated this result transmitted reference range: <300 ng/mL. The reference range was not used to interpret this result as normal/abnormal. Urine Source? Clean CatchURINALYSIS [id number] 14:18:00* Test Item Value Reference Range Interpretation [...] Urine Source? Clean CatchDRUGS OF ABUSE SCREEN [id number] 14:18:00* Test Item Value Reference Range Interpretation Comme nts URN COCAINE (test code = COCAURN) See_Comment [Automated smsPREPa Cinsay] The system which generated this result transmitted reference range: <300 ng/mL. The reference range was not used to interpret this result as normal/abnormal. URN CANNABINOIDS (test code = CANNABURN) See_Comment [Automated [employer]] The system which generated this result transmitted [...] as normal/abnormal. Urine Source? Clean CatchBASIC METABOLIC [id number] 12:13:00* Test Item Value Reference Range Interpretation [...] CA) 9.9 mg/dL 8.5-10.1 N HEPATIC FUNCTION [id number] 12:13:00* Test Item Value Reference Range Interpretation [...] reference range due to change in reagent. [id number] 12:13:00* Test Item Value Reference Range Interpretation Comme nts ACETAMINOPHEN (test code = ACET) < 10 mcg/mL 10-30 L A RANGE OF 10-30 mcg/mL IS A THERAPEUTIC RANGE. TOXIC CONCENTRATIONS: >150 mcg/mL AT 4 HOURS AFTER INGESTION >= 50 mcg/mL AT 12 HOURS AFTER INGESTION [id number] 12:13:00* Test Item Value Reference Range Interpretation Comme nts SALICYLATE (test code = RENALDO) < 3.0 mg/dL 2.8-20.0 N [id number] 12:13:00* Test Item Value Reference Range Interpretation [...] ANADDITIONAL CHARGE TO THE PATIENT. CBC W/O [id number] 11:49:00* Test Item Value Reference Range Interpretation [...] 9.7 fL 6.7-11.0 N COVID 19 INHOUSE [id number] 00:12:00* Test Item Value Reference Range Interpretation Comme nts COVID 19 INHOUSE AG (test co de = [id number]) NEGATIVE URINALYSIS [id number] 20:58:00* Test Item Value Reference Range Interpretation [...] Urine Source? Clean CatchDRUGS OF ABUSE SCREEN [id number] 20:58:00* Test Item Value Reference Range Interpretation Comme nts URN COCAINE (test code = COCAURN) NEGATIVE See_Comment [Automated smsPREPa ge] The system which generated this result transmitted reference range: <300 ng/mL. The reference range was not used to interpret this result as normal/abnormal. URN CANNABINOIDS (test code = CANNABURN) NEGATIVE See_Comment [Automated Heavy hay] The system which generated this result transmitted reference range: <50 ng/mL. The reference range was not used to interpret this result as normal/abnormal. URN AMPHETAMINE (test code = AMPHETURN) NEGATIVE See_Comment [Automated Heavy hay] The system which generated this result transmitted reference range: <1000 ng/mL. The reference range was not used to interpret this result as normal/abnormal. URN BARBITURATE (test code = BARBITURN) NEGATIVE See_Comment [Automated Heavy hay] The system which generated this result [...] as normal/abnormal. Urine Source? Clean CatchBASIC METABOLIC [id number] 20:58:00* Test Item Value Reference Range Interpretation [...] CA) 8.8 mg/dL 8.5-10.1 N HEPATIC FUNCTION [id number] 20:58:00* Test Item Value Reference Range Interpretation [...] reference range due to change in reagent. [id number] 20:58:00* Test Item Value Reference Range Interpretation Comme nts TROPONIN-I (test code = TROPI) < 0.006 ng/mL 0-0.045 N [id number] 20:58:00* Test Item Value Reference Range Interpretation Comme nts ACETAMINOPHEN (test code = ACET) < 10 mcg/mL 10-30 L A RANGE OF 10-30 mcg/mL IS A THERAPEUTIC RANGE. TOXIC CONCENTRATIONS: >150 mcg/mL AT 4 HOURS AFTER INGESTION >= 50 mcg/mL AT 12 HOURS AFTER INGESTION [id number] 20:58:00* Test Item Value Reference Range Interpretation Comme nts SALICYLATE (test code = RENALDO) < 3.0 mg/dL 2.8-20.0 N [id number] 20:58:00* Test Item Value Reference Range Interpretation [...] TO THE PATIENT. - CT HEAD/BRAIN W/O [id number] 20:52:00 [facility]Name: TEJ GUADALUPE : 1985 Sex: M Name: TEJ GUADALUPE [facility] : 1985 Age/S: 35 / M [address] [facility] Unit #: [id number] Loc: DEISY Saenz [address] Phys: Shaggy Morrow MD Acct: [id number] Dis Date: Status: PRE ER PHONE #: [phone] Exam Date: 12/13/20202017 FAX #: [phone] Reason: CONFUSION EXAMS: CPT CODE: [id number] CT HEAD/BRAIN W/O CONT 13351 HISTORY: CONFUSION TECHNIQUE: Noncontrast 2.5 mm axial [...] PrintD/T: S: 12/13/2020 (2054) PAGE 1 Signed ReportURINALYSIS [id number] 20:39:00* Test Item Value Reference Range Interpretation [...] Urine Source? Clean CatchDRUGS OF ABUSE SCREEN [id number] 20:39:00* Test Item Value Reference Range Interpretation [...] result as normal/abnormal. Urine Source? Clean CatchURINALYSIS [id number] 20:29:00* Test Item Value Reference Range Interpretation [...] Urine Source? Clean CatchDRUGS OF ABUSE SCREEN [id number] 20:29:00* Test Item Value Reference Range Interpretation Comme nts URN COCAINE (test code = COCAURN) See_Comment [Automated messa ge] The system which generated this result transmitted reference range: <300 ng/mL. The reference range was not used to interpret this result as normal/abnormal. URN CANNABINOIDS (test code = CANNABURN) See_Comment [Automated Heavy hay] The system which generated this result [...] METHADONE (test code = METHAURN) See_Comment [Automated smsPREPa ge] The system which generated this result transmitted reference range: <300 ng/mL. The reference range was not used to interpret this result as normal/abnormal. Urine Source? Clean CatchCBC W/O [id number] 20:22:00* Test Item Value Reference Range Interpretation [...] Notes Date/Time Note Provider Source 2022-06-01 16:47:23 Associated Order(s): CONSULT TO PHARMACY-AMINOGLYCOSIDES Pharmacy Aminoglycoside Monitoring Note Indication: NTM SSTI/abscess Target peak: 35-45 mcg/ml for NTM Target trough: <4 mcg/ml Concomitant antibiotics: Azithromycin, tigecycline Allergies: No known allergies Pertinent Objective Labs: Date Dose/frequency concentration (peak/trough/random) 05/26 - current 800mg q24h 5.9 (9h random) - 05/26 20.0 (2.5hr post-dose) - 05/27 5.4 (8-hr post-dose) - 05/28 <2.5 (05/31) Microbiology: 05/19: Wound - Acid Fast Bacilli 05/24: Wound : NGTD Assessment/ plan: 1. Amikacin trough <2.5mcg/ml - appropriate 2. Amikacin stopped pending AFB species identification 3. Pharmacy will sign off. Please reconsult if restarted in house Thank you for the opportunity to participate in the care of this patient. Please do not hesitate to contact us with any questions. Sil Soliz Pharm.D., [facility] Clinical Manager Speech - Infectious Diseases [place]: [phone] [facility] 2022-05-31 16:00:25 Formatting of this n ote is different from the original. Pharmacy Aminoglycoside Monitoring Note Indication: NTM SSTI/abscess Day of therapy: 7 Target peak: 35-45 mcg/ml for NTM Target trough: <4 mcg/ml Concomitant antibiotics: Azithromycin, tigecycline Allergies: No known allergies Pertinent Objective Labs: Date Dose/frequency concentration (peak/trough/random) 05/26 - current 800mg q24h 5.9 (9h random) - 05/26 20.0 (2.5hr post-dose) - 05/27 5.4 (8-hr post-dose) - 05/28 Microbiology: 05/19: Wound - Acid Fast Bacilli 05/24: Wound : NGTD Assessment: 1. CrCl: >120,Scr/BUN stable, 2. Current dose: On amikacin 800mg (10mg/kg) q24h 3. True peak based on patient-specific PK: 37mcg/ml (goal: 35-45mcg/ml) 4. True trough based on patient-specific PK: <1 mcg/ml (goal: <4 mcg/ml) Plan: 1. Will Continue current dose 2. Labs Ordered: Repeat trough tonight; will follow-up in the AM. (ordered) Thank you for the opportunity to participate in the care of this patient. Please do not hesitate to contact us with any questions. Sil Soliz Pharm.D., [facility] Clinical Manager Speech - Infectious Diseases [place]: [phone] [facility] 2022-05-30 14:28:02 Formatting of this n ote is different from the original. Pharmacy Aminoglycoside Monitoring Note Indication: NTM SSTI/abscess Day of therapy: 6 Target peak: 35-45 mcg/ml for NTM Target trough: <4 mcg/ml Concomitant antibiotics: Azithromycin, tigecycline Allergies: No known allergies Pertinent Objective Labs: Date Dose/frequency concentration (peak/trough/random) 05/26 - current 800mg q24h 5.9 (9h random) - 05/26 20.0 (2.5hr post-dose) - 05/27 5.4 (8-hr post-dose) - 05/28 Microbiology: 05/19: Wound - Acid Fast Bacilli 05/24: Wound : NGTD Assessment: 1. CrCl: >120,Scr/BUN stable, 2. Current dose: On amikacin 800mg (10mg/kg) q24h 3. True peak based on patient-specific PK: 37mcg/ml (goal: 35-45mcg/ml) 4. True trough based on patient-specific PK: <1 mcg/ml (goal: <4 mcg/ml) Plan: 1. Will Continue current dose 2. Labs Ordered: Will repeat trough tomorrow to ensure pt is not accumulating; due @1800 (will order tomorrow) Thank you for the opportunity to participate in the care of this patient. Please do not hesitate to contact us with any questions. Sil Soliz, Pharm.D., [facility] Clinical Manager Speech - Infectious Diseases [place]: [phone] [facility] 2022-05-29 12:08:26 Formatting of this n ote is different from the original. Pharmacy Aminoglycoside Monitoring Note Indication: NTM SSTI/abscess Day of therapy: 5 Target concentration: dosing per Joe nomogram, targeting goal peak ~25-45 mcg/mL, trough ~5 mcg/mL Concomitant antibiotics: Azithromycin, tigecycline Allergies: No known allergies Pertinent Objective Labs: Date dose/frequency concentration (peak/trough/random) 05/26 800mg q24h 5.9 (9h random) 05/27 800mg q24h Peak: 20 (2.5h after end of infusion, true ~37) 5.4 (9h random) 05/28-current 800mg q24h Microbiology: 05/24: Wound : NG Assessment: 1. CrCl: >120,Scr/BUN stable, 2. On amikacin 800mg (10mg/kg) q24h 3. Peak and random levels are appropriate (peak 20, est cmax ~37; 9h random 5.4) on 05/26 Plan: 1. Will Continue current dose 2. Labs Ordered: No further levels at this time, will continue to monitor Thank you for the opportunity to participate in the care of this patient. Please do not hesitate to contact us with any questions. Mariam Lepe [facility] Clinical Manager Speech Hematology/Oncology [place] : [phone] Mariam Lepe [facility] 2022-05-28 10:27:53 Formatting of this n ote is different from the original. Pharmacy Aminoglycoside Monitoring Note Indication: NTM SSTI/abscess Day of therapy: 4 Target concentration: dosing per Edwards nomogram, targeting goal peak ~25-45 mcg/mL, trough ~5 mcg/mL Concomitant antibiotics: Azithromycin, tigecycline Allergies: No known allergies Pertinent Objective Labs: Date dose/frequency concentration (peak/trough/random) 05/26 800mg q24h 5.9 (9h random) 05/27 800mg q24h Peak: 20 (2.5h after end of infusion, true ~37) 5.4 (9h random) 05/28 800mg q24h Microbiology: 05/24: Wound : NG Assessment: 1. CrCl: >120,Scr/BUN stable, 2. Continues on amikacin 800mg (10mg/kg) q24h 3. Peak and random levels are appropriate (peak 20, est cmax ~37; 9h random 5.4) Plan: 1. Will Continue current dose 2. Labs Ordered: No further levels at this time, will continue to monitor Thank you for the opportunity to participate in the care of this patient. Please do not hesitate to contact us with any questions. Mariam Lepe [facility] Clinical Manager Speech Hematology/Oncology [place] : [phone] [facility] 2022-05-27 12:23:47 Formatting of this n ote is different from the original. Pharmacy Aminoglycoside Monitoring Note Indication: NTM SSTI/abscess Day of therapy: 3 Target concentration: dosing per Joe nomogram, targeting goal peak ~25-45 mcg/mL, trough ~5 mcg/mL Concomitant antibiotics: Azithromycin, tigecycline Allergies: No known allergies Pertinent Objective Labs: Date dose/frequency concentration (peak/trough/random) 8/25 800mg q24h 5.9 (9h random) 8/26 800mg q24h Peak: 20 (2.5h after end of infusion, true ~37) 5.4 (9h random) Microbiology:pending Assessment: 1. CrCl: >120,Scr/BUN stable, 2. Continues on amikacin 800mg (10mg/kg) q24h 3. Peak and random levels are appropriate (peak 20, est cmax ~37; 9h random 5.4) Plan: 1. Will Continue current dose 2. Labs Ordered: No further levels at this time, will continue to monitor Thank you for the opportunity to participate in the care of this patient. Please do not hesitate to contact us with any questions. Ruchi Olsen, PharmD, [facility] Phone: [phone] Ruchi Olsen [facility] 2022-05-26 09:18:39 Formatting of this n ote is different from the original. Pharmacy Aminoglycoside Monitoring Note Indication: NTM SSTI/abscess Day of therapy: 2 Target concentration: dosing per Edwards nomogram, targeting goal peak ~25-45 mcg/mL, trough ~5 mcg/mL Concomitant antibiotics: Azithromycin, tigecycline Allergies: No known allergies Pertinent Objective Labs: Date dose/frequency concentration (peak/trough/random) 8/25 800mg q24h 5.9 (9h random) Microbiology:pending Assessment: 1. CrCl: >120,Scr/BUN stable, 2. Continues on amikacin 800mg (10mg/kg) q24h 3. Random 9h level obtained today demonstrates dose appropriate per Edwards nomogram Plan: 1. Will Continue current dose 2. Labs Ordered: will order 2 levels: 2-h and 8-h post dose levels to confirm Thank you for the opportunity to participate in the care of this patient. Please do not hesitate to contact us with any questions. Ruchi Olsen, PharmD, [facility] Phone: [phone] [facility] 2022-05-25 08:07:02 Associated Order(s): IP CONSULT TO INFECTIOUS DISEASE Images from the original note were not included. Infectious Disease Consult Service Attending Consult Note Reason for Consult: NTM infection Requesting Physician: MD Marcin Admission Date: 05/23/2022 Admission Diagnosis: Cellulitis Impression/Recommendations: Tej Guadalupe is a 37y.o. male w/ history of IVDU, BPD comes in with non healing wounds after attempted IVDU with failed needle sticks about a month ago. These did not improve with I&D and antibiotics from OSH and another attempt at antibiotics and I&D at [facility]. He came back with worsening lesions and was admitted for same. We are consulted for his cultures growing AFB 4+. This chronic wound not responding to antibiotics is typical for an NTM infection and we will attempt to treat #NTM infection, cutaneous - I have discussed with Micro, isolate will be sent immediately to [facility] for ID and sensis - growth from a sterile aspirate is very convincing for infection not contaminant - growth within 1 week is most consistent with a rapid growing Mycobacterium such as (M chelonae, M fortuitum, M abscessus) and I would bet on M fortuitum - we will try and treat with a broad spectrum regimen while we await identification as the lesions are painful and worsening - amikacin, azithromycin are the backbone of many NTM regimens and we have clear data that these are critical components - tigecycline provides very broad NTM coverage but data is lacking on clinical outcomes - the combination has a high probability of giving 2 or 3 drug coverage for these NTMs however there are no local antibiograms so we used the consensus of 3 independent studies in the primary literature as well as local recommendations. - I have ordered amikacin with trough, and PharmD consult for monitoring - if nausea or anorexia, will need tigecycline dose reduction (anti-emetics usually not helpful) We will follow this fascinating case Arash Obando MD, PhD [facility] Infectious Diseases Provider #[id number] May 25, 2022 8:09 AM History Obtained From: patient, electronic medical record History of Present Illness: The patient is a [...] homeless. He has not travelled outside of [place] recently and does not have any sick contacts. He smokes half a pack of cigarettes a day, smokes marijuana occasionally, and has not used alcohol in the past month. Prior to that he would have 1-2 drinks per day. FH: Reviewed and NC Medications: 05/25 tige 05/25 amikacin 05/25 azithromycin Microbiology: 05/24 wound ngtd 05/24 wound ngtd 05/24 wound ngtd 05/24 afb none seen 05/24 afb none seen 05/24 afb none seen 05/24 lala in proc 05/24 lala in proc 05/24 lala in proc History: The allergies, medications, past medical, surgical, family and social histories were reviewed and documented in the appropriate sections in [facility]. Immunization history: There is no immunization history [...] Psychiatric/Behavioral: Positive for depression and substance abuse. Objective VITALS: Visit Vitals BP 105/68 Pulse 82 Temp 97.8 °F (36.6 °C) (Oral) Resp 17 Ht 5' 8" (1.727 m) Wt 179 lb (81.2 kg) SpO2 95% BMI 27.22 kg/m2 Smoking Status Current Every Day Smoker BSA 1.97 m2 Physical Exam: Physical Exam Constitutional: General: He is not in acute distress. [...] Data: All labs, images, and data reviewed. [facility] 2022-05-23 21:39:21 Associated Order(s): IP CONSULT TO HAND SURGERY Plastic Hand Surgery Service Resident Consult Note Reason for Consult: forearm tenderness Consult Date: 05/23/2022 Impression/Recommendations: Tej Guadalupe is a 37y.o. LHD male with a past medical history of IV drug abuse who presents with a one month history of intermittent and evolving areas of tenderness and erythema, predominantly on the right forearm - areas of concern marked in the ED -- no areas of tense fluctuance that were amenable to drainage at the time of evaluation -- if the infection consolidates, will drain at bedside under local anesthesia - no need to make patient NPO - continue IV antibiotics - recommended evaluation of HIV/HCV, since obtained and negative - PRS will continue to follow Gabe Dunlap MD Plastic and Reconstructive Surgery, PGY4 [facility] Pager: [phone] May 23, 2022 9:39 PM Subjective: Chief Complaint: forearm pain History Obtained From: patient, electronic medical record History of Present Illness: Tej Guadalupe is [...] has failed outpatient antibiotic therapy. Past Medical History: No past medical history on file. Past Surgical History: No past surgical history on file. Current Medications: [...] daily for 10 days 40 capsule 0 sulfamethoxazole-trimethop rim (BACTRIM DS) 800-160 mg tablet Take 1 [...] reviewed and negative except as noted per HPI Objective Visit Vitals BP 146/90 Pulse 71 Temp 97.7 °F (36.5 °C) Resp 18 Ht 5' 8" (1.727 m) Wt 179 lb 14.3 oz (81.6 kg) SpO2 100% BMI 27.35 kg/m2 Smoking Status Current Every Day Smoker BSA 1.98 m2 Physical Exam: Gen: Awake, alert, conversant, in no distress CV: Regular rate Pulm: Unlabored on RA Grossly: Multiple areas of erythema and tenderness, no tense fluctuance consistent with an organized fluid collection, previous I&D incision which patient said was purulent and now looks healthy Vascular: Warm and well perfused, +2 radial pulse, cap refill < 2 sec Neurosensory: SILT Neuromuscular: Pinch and opposition intact (median and ulnar nerve). Muscle strength 5/5. Full AROM. Joints: Full PROM Tendons: Normal tenodesis Bones: No bony tenderness Data: CBC: No results found for this or any previous visit (from the past 24 hour(s)). BMP: No results found for this or any previous visit (from the past 24 hour(s)). Radiology Review: XR at previous ER visit with no changes. No need to repeat [facility] History and Physical Notes Date/Time Note Provider Source 2022-05-23 22:01:59 Formatting of this n ote is different from the original. Medicine Team B Admission History & Physical Assessment/Plan: Tej Guadalupe is a 37y.o. year old male with PMH of IVDU, polysubstance use disorder presenting with prolonged infection of the forearm at the site of IVDU injections despite I&D last week and course of bactrim/keflex. HDS, afebrile #Right forearm cellulitis w/ possible abscess #Left forearm abscess - progressive over the past month despite I&D and bactrim/keflex - mild fluctuance at multiple sites but no tense fluctuance - culture negative from 05/19 - suspect treatment failure 2/2 inadequate source control, patient denies current IVDU since 1 month ago - ER US performed by ER provider but no read available - evaluated by plastics, no areas amenable to drainage. May consider bedside I&D under local anesthesia at a later time - HDS, afebrile - s/p loading dose of vanc in ER - continue vanc given no operative plans [ ] HIV, hep panel #Benzo use disorder #Opiate use disorder - patient reports being in inpatient drug rehab program for the past several days, says he is on suboxone 4 mg daily and klonopin taper 0.5 mg BID. At last ER visit patient was discharged off benzos. Reported hx of benzo withdrawal - monitor for symptoms of benzo withdrawal - klonopin 0.5 mg BID PRN and suboxone 4 mg daily ordered #Mood disorder - resume home fluoxetine and zyprexa, patient reports compliance Disposition: Admit to medicine for further workup/treatment. Code Status: FULL CODE Emergency Contact: Primary Emergency Contact: Lydia GUADALUPE, Yasmany Gonzalez Internal Medicine PGY3 [facility] Medicine 10:02 PM, 05/23/2022 Chief Complaint: forearm pain History [...] prompting visit to ER today. Patient denying fevers. Patient reports being in inpatient drug rehab program for the past several days, says he is on suboxone 4 mg daily and klonopin taper 0.5 mg BID. At last ER visit patient was discharged off benzos. Reported hx of benzo withdrawal Review of Systems: 10 point review of systems negative except as stated in the HPI. Medical History: No past medical history on file. No past surgical history on file. No family history on file. Social History Tobacco Use Smoking status: Current Every Day Smoker Packs/day: 1.00 Smokeless tobacco: Never Used Tobacco comment: 1 pack/day Substance Use Topics Alcohol use: Never Drug use: Yes Types: Methamphetamines Comment: last use- last week Allergies: No Known Allergies Home Medications Prior to Admission Medications Prescriptions Last Dose Informant [...] None Physical Exam: Current Min/Max Temp 97.7 °F (36.5 °C) Temp Min: 97.7 °F (36.5 °C) Max: 98.9 °F (37.2 °C) HR 71 Pulse Min: 71 Max: 99 BP 146/90 BP Min: 127/77 Max: 146/90 Resp: 18 Resp Min: 18 Max: 18 O2 100 % SpO2 Min: 95 % Max: 100 % Physical exam: General: well-developed, well-nourished, cooperative and in NAD HEENT: NCAT CV: RRR, no MRG, normal s1+s2 Resp: CTAB, no wheezes, rales, rhonchi GI: soft, nontender, nondistended, no organomegaly, no rebound or guarding Skin: several mildly 1-3 cm raised areas of erythema on the right forearm. Minimal tenderness w/ some fluctuance. Site of previous I&D w/o fluctuance. 1 similar area on left forearm Extremities: WWP, no lower extremity edema Neuro: alert and oriented Labs & Imaging: reviewed in epic. Associated attestation - Hank Kilpatrick MD - 05/24/2022 2:10 AM CDT Please see my separate note for my attestation. Internal Medicine [facility] Procedure Notes Date/Time Note Provider Source 2022-05-31 08:35:51 Procedure(s): I& D O F ABSCESS WITH PACKING (COMPLICATED) Pre-Procedure Diagnose(s): Abscess of forearm, right Post-Procedure Diagnose(s): Abscess of forearm, right Division of Plastic Surgery Bedside Procedure Note Procedure Performed: Incision and Drainage Primary Indication: 37y.o. male with 1.2x1.4cm abscess of the right forearm, consolidating over the past week. Now amenable to drainage. H&P Status: H&P was reviewed, the patient was examined and no change has occurred in patient's condition since H&P was completed. Informed Consent & Time Out: The patient provided verbal consent for this procedure. Barrier Precautions & Sterile Technique: As documented in the Pre-Procedure Check List. Local Anesthesia: Lidocaine 1% 8ml with epinephrine Number of Kits Used: 1 Dressings: Applied Estimated Blood Loss: Minimal Specimens Collected: Culture sent Complications: none Primary Proceduralist: Gabe Dunlap MD Supervising Physician: Krysta Ramos MD Procedure in Detail: The area of fluctuance was [...] the procedure well and there were no complications Gabe Dunlap MD Plastic and Reconstructive Surgery, PGY4 [facility] Pager: [phone] May 31, 2022 8:36 AM [facility] 2022-05-24 16:29:09 Procedure(s): I& D O F ABSCESS WITH PACKING (COMPLICATED); I& D OF ABSCESS WITH PACKING (COMPLICATED); I& D OF ABSCESS WITH PACKING (COMPLICATED); I& D OF ABSCESS WITH PACKING (COMPLICATED) Pre-Procedure Diagnose(s): Abscess of right forearm; Abscess of right forearm; Abscess of right forearm; Abscess of left forearm Post-Procedure Diagnose(s): Abscess of right forearm; Abscess of right forearm; Abscess of right forearm; Abscess of left forearm Division of Plastic Surgery Bedside Procedure Note Procedure Performed: Incision and Drainage of Abscesses Primary Indication: 37y.o. male with a past medical history of IV drug abuse who presents with a one month history of intermittent and evolving areas of tenderness and erythema, predominantly on the right forearm H&P Status: H&P was reviewed, the patient was examined and no change has occurred in patient's condition since H&P was completed. Informed Consent & Time Out: The patient provided verbal consent for this procedure. Barrier Precautions & Sterile Technique: As documented in the Pre-Procedure Check List. Local Anesthesia: Lidocaine 1% 14ml without epinephrine Number of Kits Used: 1 Dressings: Applied Estimated Blood Loss: Minimal Specimens Collected: Culture x3 Complications: none Primary Proceduralist: Gabe Dunlap MD Supervising Physician: MD Monica Procedure in Detail: The patient's right and left [...] nursing staff and sent to the microbiology lab. Gabe Dunlap MD Plastic and Reconstructive Surgery, PGY4 [facility] Pager: [phone] May 24, 2022 4:30 PM [facility] Notes Date/Time Note Provider Source 2023-11-01 14:19:23 Chief Complaint Patient presents with Anxiety Refill Request Past Medical History: Diagnosis Date Anxiety disorder, unspecified Benzodiazepine dependence Patient seen and assessed by PAM Gonzalez in fast track area. Patient in ER requesting medication refill for anxiety and has a follow-up with normal provider that prescribes medicine. Patient conscious and alert, with normal/unlabored breathing, and normal color/tone for ethnicity. Oriented to name, time, place, and situation. GCS15. Patient verbalizes no needs at this time. Patient discharged from fast track area.Educated on follow up instructions. Questions answered and concerns addressed. Vital signs obtained. Ambulatory with steady gait out of ER. Patient aware of plan of care. Kelly Spence RN LE ATTACHING MACHINE OPERATOR Kelly Spence RN [facility] 2023-11-01 13:00:35 Patient to ED for anxiety due to doesn't have any of his clonazepam 2mg tabs anymore. He recently lost his grandmother and grandfather and been taking more than he is supposed to. He has been in withdrawal for 5 days. LE ATTACHING MACHINE OPERATOR Chucky Hawkins RN [facility] 2023-10-02 12:30:00 Pt given printed and verbal discharge instructions regarding medication refill for benzodiazepine dependence, encouraged hydration, 0 Prescriptions provided Pt verbalized understanding of instructions, pt awake alert oriented, resp reg unlabored, skin w/d, color appropriate for race, moves all ext well,pt encouraged to follow up with pcp. Advised to seek medical attention for new/prolonged/worsening of symptoms, Symptoms improved. No adverse reaction to meds given in ER noted upon discharge Awake, alert oriented, resp reg unlabored, skin w/d, pt leaving amb with steady gait, in no apparent distress. E Butt RN [facility] 2023-10-02 11:56:31 Patient states: "I came here yesterday and checked in but I left. I'm detoxing off klonopin. I wanted to know if yameagan can refill it. My doctor doesn't do klonopin anymore." E Soto RN [facility] 2023-10-02 11:43:00 [facility] Emergency Department Note Patient Name: Tej Guadalupe Date of : 1985 38 year old male Treatment Room: [facility] ED [facility] Primary Care Physician: Rene Smith (Inactive) Patient Escorted by: Self [9] Mode of Arrival: Personal means [1] EMS Treatment Prior to ED Arrival: Travel and Exposure Screening: Symptoms Does patient have any of these symptoms?: (not recorded) Exposure Screening Has patient had contact with someone with a communicable disease in the last month?: (not recorded) Diseases exposed to:: (not recorded) Is Patient ?: (not recorded) Exposure Date: (not recorded) Chief Complaint: Chief Complaint Patient presents with Other Medication refill History of Present Illness: HPI 38yo M with anxiety and prescribed klonopin 2mg presents today needing refill. He states he is not doing good, feels his heart racing and keeps breaking out into sweats. He states he is trying to get ahold of [facility] and anybody else who can see him. He states if we can't give him a refill can we give him 1 tablet to make this go away. Past Medical History/Immunizations: Past Medical History: Diagnosis Date Anxiety disorder, unspecified Benzodiazepine dependence Allergies: Allergies Allergen Reactions Trazodone Swelling FACE BECOMES SWOLLEN Past Social History: Substance & Sexual Activity No substance use or sexual activity history on file. Past Surgical History: No past surgical history on file. Review of Systems: Review of Systems Constitutional: Negative for activity change, chills, fever and weight loss. HENT: Negative for congestion, rhinorrhea, sore throat and trouble swallowing. Eyes: Negative for visual disturbance. Respiratory: Negative for cough and shortness of breath. Gastrointestinal: Negative for abdominal pain, nausea and vomiting. Genitourinary: Negative for dysuria, hematuria, decreased urine volume and difficulty urinating. Musculoskeletal: Negative for back pain and gait problem. Skin: Negative for rash and wound. Neurological: Negative for dizziness, syncope and weakness. Psychiatric/Behavioral: Negative for agitation and confusion. The patient is nervous/anxious. Endocrine: Negative for weight loss. Physical Exam: ED Triage Vitals [10/02/23 1157] Weight 83.9 kg (185 lb) Actual or estimated Estimated by patient/family report Height 1.727 m (5' 8") BP (!) 143/96 Pulse 117 Resp 16 Temp 36.9 ?C (98.4 ?F) Temp source Oral SpO2 99 % Measured on Room air Physical Exam Vitals and nursing note reviewed. Constitutional: General: He is not in acute distress. Appearance: He is not diaphoretic. HENT: Head: Normocephalic and atraumatic. Eyes: Pupils: Pupils are equal, round, and reactive to light. Neck: Vascular: No JVD. Cardiovascular: Rate and Rhythm: Tachycardia present. Heart sounds: Normal heart sounds. No murmur heard. Pulmonary: Effort: Pulmonary effort is normal. No respiratory distress. Breath sounds: Normal breath sounds. Abdominal: General: There is no distension. Palpations: Abdomen is soft. Tenderness: There is no abdominal tenderness. Musculoskeletal: General: Normal range of motion. Cervical back: Neck supple. Skin: General: Skin is warm and dry. Neurological: Mental Status: He is alert and oriented to person, place, and time. Psychiatric: Comments: Diaphoretic, panicked Radiology: No orders to display Lab Results: Lab Results - No data to display EKG: If EKG completed, see Procedure Note. Orders and Treatments: No orders of the defined types were placed in this encounter. Orders Placed This Encounter Medications clonazePAM (KLONOPIN) tablet 1 mg First Provider Eval: ED Events Date/Time Event User Comments 10/02/23 1207 Medical Screening Begins DEB BURGOS MD -- 01/01/24 1207 First Provider Evaluation DEB BURGOS MD -- ED COURSE Diagnosis/Impression as of 10/02/23 1220 Medication refill Benzodiazepine dependence Procedures: Procedures MDM: Medical Decision Making Given 1mg tablet Will not give script discharged Problems Addressed: Benzodiazepine dependence: acute illness or injury with systemic symptoms Medication refill: acute illness or injury with systemic symptoms Risk Prescription drug management. Flowsheet Documentation: Scoring Tools: No data recorded Disposition/Condition: ED Disposition ED Disposition Disch - Home Condition Stable Comment -- Discharge Medications: Patient's Medications START taking these medications No medications on file CONTINUE taking these medications which have NOT CHANGED OLANZAPINE (ZYPREXA) 10 MG TABLET Take 1 tablet by mouth in the morning and 1 tablet in the evening. START taking Modified Medications as Prescribed No medications on file STOP taking these medications No medications on file Follow-up: Electronically signed by: Deb Burgos DO 10/02/23 1220 [facility] 2023-09-28 19:25:10 Pt unable to be located. Never was seen by provider. E Presley RN [facility] 2023-09-28 18:17:15 Pt's states his doctor quit prescribing his [...] something and he won't prescribe me any." LE ATTACHING MACHINE OPERATOR Liset Blancas RN [facility] 2023-09-28 18:09:00 Images from the original note were not included. Patient never seen by me The following was compiled from his recent PDMP records: Dyana Jorgensen MD 09/28/231922 Dyana Jorgensen MD 09/28/231922 [facility] 2022-06-03 18:30:00 Formatting of this n ote might be different from the original. Gave pt appointments, provided wound care, paper prescriptions were delivered via doctor bedside, taught about s/s of infection, removed IV, pt left with belongings via transport, no distress noted. Gave pt 3 weeks of wound care supplies. Pt left via Lyft. animal husbandry worker provided instructions on how to request a Lyft. No needs at this time. Belkis [facility] 2022-06-03 18:30:00 Formatting of this n ote is different from the original. Problem: Hospital Acquired Venous Thromboembolism (VTE) Goal: Absence of Hospital Acquired VTE (DVT or PE) Description: Patient will not develop VTE (DVT or PE) during the hospital stay. Outcome: Resolved Problem: Knowledge Deficit Goal: Increase Understanding of Causes and Management of Disease Process and Treatments Description: Patient will be educated with accurate information, demonstrate knowledge and skills regarding the disease process, and the diagnostic and therapeutic plan. Outcome: Resolved Problem: Falls / Injury Goal: Absence of fall or injury Description: Refer to the Documentation Flowsheet for Interventions. Outcome: Resolved Problem: Impaired Tissue Integrity Goal: Impaired Tissue Will Be Free Of Any Openings, Swelling, Or Drainage Description: Patient s impaired tissue will be absent of redness, swelling, drainage, and pain. Outcome: Resolved Problem: Infection Goal: No Infections Will Occur Description: Infection will be prevented and the risk will be reduced through optimal control measures (i.e., standard, contact, and droplet precautions). Vital signs and laboratory studies will be within defined limits, and there will not be evidence of purulent drainage from wounds, or positive cultures. Outcome: Resolved Problem: Healing Environment Goal: Provide A Physical Environment Affirmed By The Patient To Be Safe And Comfortable Outcome: Resolved Goal: Identify The Patient's Healing Goal Outcome: Resolved Goal: Identify Traditional / Cultural Healing Practice (s) Outcome: Resolved Problem: Relationship Based Care Goal: Develop / Initiate The Interdisciplinary Plan For Discharge Outcome: Resolved Goal: Identify Support Systems Outcome: Resolved Goal: Patient / Family / S.O. Are Supportive And Accepting Of The Established Care Goals Outcome: Resolved Problem: Culturally Responsive Care Goal: Provide Culturally Competent Care Outcome: Resolved Problem: Standards Of Nursing Care Goal: Maintain Standards Of Nursing Care Description: * Verify Care Meets Standards For Assessment And Management Of Patient Status, Medications And Treatment, Safety, And Education. * Care Reviewed Regarding: > Education Of Patient, Family, S.O. > Verify Understanding Of Causes, Treatment And Follow-Up Care Related To Disease Process. > Administration And Coordination Of Medications And Treatments As Prescribed. > Assessment, Evaluation And Communication Of Status As Indicated By: Patient Condition, Treatment And / Or Patient Response. > Comfort Measures As Indicated By: Patient Subjective And Objective Responses. Outcome: Resolved Problem: Pain - Acute Goal: An Acceptable Level Of Comfort Description: Patient will have adequate relief of pain, be able to cope with unrelieved pain using pharmacological and non-pharmacological methods and be able to perform desired activities. Outcome: Resolved Problem: Activity Intolerance Goal: Activity Will Be Tolerated And Energy Conservation Practices Will Be Used Description: Patient will tolerate activities according to his/her functional cardiovascular/respiratory status and age, and energy conservation practices will be used. Vital signs (HR, SBP, RR) will fall within defined limits. There will be no shortness of breath, chest pain, or new arrhythmias (if applicable). Outcome: Resolved Problem: Altered Body Image Goal: Altered Body Image Is Accepted Description: Patient will accept body changes and demonstrate ability to look at, discuss, or care for the portion of the body that has been altered. Outcome: Resolved Problem: Impaired Mobility Goal: The Maximum Level Of Function Will Be Achieved And Risk Of Complications Reduced Description: The patient will maintain a maximum level of function, mobility, and physical activity using assistive devices. Patient will not develop complications of impaired mobility such as deep vein thrombosis or pressure ulcers. Outcome: Resolved [facility] 2022-06-03 17:38:37 Formatting of this n ote is different from the original. 06/03/22 1737 Intervention Financial Needs Other (Comment) ([facility] SELF-PAY/SELF-PAY SCREENED) Referral Data Referral Reason Wound Care (Wound care supplies) Received a call from Team B requesting wound care supplies for take home. Chart reviewed. Spoke with plastics, for wound care instructions and supplies needed. Supply form filled out per MD's recommendation ( kerlix 10pcs, iodoform 1/4 inch # 1 bot., 2" little wrap x 6 and suture removal kit ) and faxed to patient's nurse. Per Dr. Dunlap will see patient in the clinic and will order additional supplies if still needed. RN to provide patient's with wound care supplies. Glory JORDANN ACM-RN EC Nurse News Commentator [facility]# [phone] Glory Tran RN [facility] 2022-06-03 04:38:15 Formatting of this n ote might be different from the original. Problem: Hospital Acquired Venous Thromboembolism (VTE) Goal: Absence of Hospital Acquired VTE (DVT or PE) Description: Patient will not develop VTE (DVT or PE) during the hospital stay. Outcome: Met This Shift Problem: Knowledge Deficit Goal: Increase Understanding of Causes and Management of Disease Process and Treatments Description: Patient will be educated with accurate information, demonstrate knowledge and skills regarding the disease process, and the diagnostic and therapeutic plan. Outcome: Met This Shift Problem: Falls / Injury Goal: Absence of fall or injury Description: Refer to the Documentation Flowsheet for Interventions. Outcome: Met This Shift Problem: Pain - Acute Goal: An Acceptable Level Of Comfort Description: Patient will have adequate relief of pain, be able to cope with unrelieved pain using pharmacological and non-pharmacological methods and be able to perform desired activities. Outcome: Met This Shift Kristine Melgoza [facility] 2022-06-02 19:47:16 Formatting of this n ote might be different from the original. Problem: Hospital Acquired Venous Thromboembolism (VTE) Goal: Absence of Hospital Acquired VTE (DVT or PE) Description: Patient will not develop VTE (DVT or PE) during the hospital stay. Outcome: Met This Shift Problem: Falls / Injury Goal: Absence of fall or injury Description: Refer to the Documentation Flowsheet for Interventions. Outcome: Met This Shift Problem: Healing Environment Goal: Provide A Physical Environment Affirmed By The Patient To Be Safe And Comfortable Outcome: Met This Shift Goal: Identify The Patient's Healing Goal Outcome: Met This Shift Goal: Identify Traditional / Cultural Healing Practice (s) Outcome: Met This Shift Problem: Culturally Responsive Care Goal: Provide Culturally Competent Care Outcome: Met This Shift Problem: Standards Of Nursing Care Goal: Maintain Standards Of Nursing Care Description: * Verify Care Meets Standards For Assessment And Management Of Patient Status, Medications And Treatment, Safety, And Education. * Care Reviewed Regarding: > Education Of Patient, Family, S.O. > Verify Understanding Of Causes, Treatment And Follow-Up Care Related To Disease Process. > Administration And Coordination Of Medications And Treatments As Prescribed. > Assessment, Evaluation And Communication Of Status As Indicated By: Patient Condition, Treatment And / Or Patient Response. > Comfort Measures As Indicated By: Patient Subjective And Objective Responses. Outcome: Met This Shift Problem: Pain - Acute Goal: An Acceptable Level Of Comfort Description: Patient will have adequate relief of pain, be able to cope with unrelieved pain using pharmacological and non-pharmacological methods and be able to perform desired activities. Outcome: Met This Shift Problem: Activity Intolerance Goal: Activity Will Be Tolerated And Energy Conservation Practices Will Be Used Description: Patient will tolerate activities according to his/her functional cardiovascular/respiratory status and age, and energy conservation practices will be used. Vital signs (HR, SBP, RR) will fall within defined limits. There will be no shortness of breath, chest pain, or new arrhythmias (if applicable). Outcome: Met This Shift Problem: Impaired Mobility Goal: The Maximum Level Of Function Will Be Achieved And Risk Of Complications Reduced Description: The patient will maintain a maximum level of function, mobility, and physical activity using assistive devices. Patient will not develop complications of impaired mobility such as deep vein thrombosis or pressure ulcers. Outcome: Met This Shift [facility] 2022-06-02 04:02:37 Formatting of this n ote might be different from the original. Problem: Hospital Acquired Venous Thromboembolism (VTE) Goal: Absence of Hospital Acquired VTE (DVT or PE) Description: Patient will not develop VTE (DVT or PE) during the hospital stay. Outcome: Met This Shift Problem: Knowledge Deficit Goal: Increase Understanding of Causes and Management of Disease Process and Treatments Description: Patient will be educated with accurate information, demonstrate knowledge and skills regarding the disease process, and the diagnostic and therapeutic plan. Outcome: Met This Shift Problem: Falls / Injury Goal: Absence of fall or injury Description: Refer to the Documentation Flowsheet for Interventions. Outcome: Met This Shift Problem: Pain - Acute Goal: An Acceptable Level Of Comfort Description: Patient will have adequate relief of pain, be able to cope with unrelieved pain using pharmacological and non-pharmacological methods and be able to perform desired activities. Outcome: Met This Shift [facility] 2022-06-01 16:07:00 Formatting of this n ote might be different from the original. Problem: Hospital Acquired Venous Thromboembolism (VTE) Goal: Absence of Hospital Acquired VTE (DVT or PE) Description: Patient will not develop VTE (DVT or PE) during the hospital stay. Outcome: Met This Shift Problem: Knowledge Deficit Goal: Increase Understanding of Causes and Management of Disease Process and Treatments Description: Patient will be educated with accurate information, demonstrate knowledge and skills regarding the disease process, and the diagnostic and therapeutic plan. Outcome: Met This Shift Problem: Falls / Injury Goal: Absence of fall or injury Description: Refer to the Documentation Flowsheet for Interventions. Outcome: Met This Shift Problem: Infection Goal: No Infections Will Occur Description: Infection will be prevented and the risk will be reduced through optimal control measures (i.e., standard, contact, and droplet precautions). Vital signs and laboratory studies will be within defined limits, and there will not be evidence of purulent drainage from wounds, or positive cultures. Outcome: Met This Shift Problem: Healing Environment Goal: Provide A Physical Environment Affirmed By The Patient To Be Safe And Comfortable Outcome: Met This Shift [facility] 2022-06-01 16:04:25 Formatting of this n ote is different from the original. 06/01/22 1602 Intervention Coordination of Care Multidisciplinary team (S/p I+D of 4x abscesses on 05/25 and 05/31.infection) Disease Management Meets criteria for Inpatient Medical Necessity Screening Concurrent review ([id number]) Oumou Villa MSN, BSN, [facility]-RN Clinical Nurse News Commentator [phone] Oumou Villa RN [facility] 2022-06-01 05:30:00 Formatting of this n ote might be different from the original. Problem: Falls / Injury Goal: Absence of fall or injury Description: Refer to the Documentation Flowsheet for Interventions. Outcome: Met This Shift Problem: Infection Goal: No Infections Will Occur Description: Infection will be prevented and the risk will be reduced through optimal control measures (i.e., standard, contact, and droplet precautions). Vital signs and laboratory studies will be within defined limits, and there will not be evidence of purulent drainage from wounds, or positive cultures. Outcome: Met This Shift Problem: Activity Intolerance Goal: Activity Will Be Tolerated And Energy Conservation Practices Will Be Used Description: Patient will tolerate activities according to his/her functional cardiovascular/respiratory status and age, and energy conservation practices will be used. Vital signs (HR, SBP, RR) will fall within defined limits. There will be no shortness of breath, chest pain, or new arrhythmias (if applicable). Outcome: Met This Shift Jessika Connolly RN [facility] 2022-05-31 16:17:37 Formatting of this n ote is different from the original. Problem: Hospital Acquired Venous Thromboembolism (VTE) Goal: Absence of Hospital Acquired VTE (DVT or PE) Description: Patient will not develop VTE (DVT or PE) during the hospital stay. Outcome: Met This Shift Problem: Knowledge Deficit Goal: Increase Understanding of Causes and Management of Disease Process and Treatments Description: Patient will be educated with accurate information, demonstrate knowledge and skills regarding the disease process, and the diagnostic and therapeutic plan. Outcome: Met This Shift Problem: Falls / Injury Goal: Absence of fall or injury Description: Refer to the Documentation Flowsheet for Interventions. Outcome: Met This Shift Problem: Falls / Injury Goal: Absence of fall or injury Description: Refer to the Documentation Flowsheet for Interventions. Outcome: Met This Shift Problem: Impaired Tissue Integrity Goal: Impaired Tissue Will Be Free Of Any Openings, Swelling, Or Drainage Description: Patient s impaired tissue will be absent of redness, swelling, drainage, and pain. Outcome: Met This Shift [facility] 2022-05-31 10:15:18 Formatting of this n ote is different from the original. Nutrition Screen by [employer], Registered Nutrition Screen re: LOS x 7 days. Tej Guadalupe is a pleasant 37y.o. male. Chief Complaint Patient presents with Abscess No past medical history on file. No past surgical history on file. Brief Current Medical Issues: LHD male with a past medical history of IV drug abuse who presents with a one month history of intermittent and evolving areas of tenderness and erythema, predominantly on the right forearm - s/p I&D 05/24, repeat this AM; cultures with no growth to date Nutrition Screen Score by Nsg: No Score Recorded Appetite: Good per pt. States he's been eating very well and reports no problems with the meals served GI/Chew/Swal Issues: reports resolved nausea, denies all issues at this time Food Allergies/Intolerances/Prac tices: No Known Allergies Anthropometrics Visit Vitals BP 110/65 Pulse 76 Temp 97.8 °F (36.6 °C) (Oral) Resp 17 Ht 5' 8" (1.727 m) Wt 179 lb (81.2 kg) SpO2 96% BMI 27.22 kg/m2 Smoking Status Current Every Day Smoker BSA 1.97 m2 Wt Readings from Last 3 Encounters: 05/24/22 179 lb (81.2 kg) 05/22/22 180 lb (81.6 kg) 05/19/22 180 lb (81.6 kg) Body mass index is 27.22 kg/m2. BMI Category: Overweight Weight changes: none reported Current Medical Nutrition Therapy Diet Order: Regular Diet Oral Supplements: none %PO intake: 75-100% most meals Skin: per LDA Wounds: L antecubital, RL arm Nutrition Plan/Recommendations: (as medically feasible) 1. Continue with current diet order of Regular Diet 2. Iron supplementation 3. Add/adjust bowel regimen as needed 4. Continue to monitor weight, intake & tolerance, GI motility and nutrition related labs Available/Consult PRN Signature: Kelly Boo DTR [id number] Pager: [phone] Please see Dietitian Note(s) in Plan of Care. Nutrition [facility] 2022-05-31 06:47:50 Formatting of this n ote is different from the original. Problem: Hospital Acquired Venous Thromboembolism (VTE) Goal: Absence of Hospital Acquired VTE (DVT or PE) Description: Patient will not develop VTE (DVT or PE) during the hospital stay. Outcome: Met This Shift Problem: Knowledge Deficit Goal: Increase Understanding of Causes and Management of Disease Process and Treatments Description: Patient will be educated with accurate information, demonstrate knowledge and skills regarding the disease process, and the diagnostic and therapeutic plan. Outcome: Met This Shift Problem: Falls / Injury Goal: Absence of fall or injury Description: Refer to the Documentation Flowsheet for Interventions. Outcome: Met This Shift Problem: Impaired Tissue Integrity Goal: Impaired Tissue Will Be Free Of Any Openings, Swelling, Or Drainage Description: Patient s impaired tissue will be absent of redness, swelling, drainage, and pain. Outcome: Met This Shift Problem: Infection Goal: No Infections Will Occur Description: Infection will be prevented and the risk will be reduced through optimal control measures (i.e., standard, contact, and droplet precautions). Vital signs and laboratory studies will be within defined limits, and there will not be evidence of purulent drainage from wounds, or positive cultures. Outcome: Met This Shift Problem: Healing Environment Goal: Provide A Physical Environment Affirmed By The Patient To Be Safe And Comfortable Outcome: Met This Shift Goal: Identify The Patient's Healing Goal Outcome: Met This Shift Goal: Identify Traditional / Cultural Healing Practice (s) Outcome: Met This Shift Problem: Relationship Based Care Goal: Develop / Initiate The Interdisciplinary Plan For Discharge Outcome: Met This Shift Goal: Identify Support Systems Outcome: Met This Shift Goal: Patient / Family / S.O. Are Supportive And Accepting Of The Established Care Goals Outcome: Met This Shift Problem: Culturally Responsive Care Goal: Provide Culturally Competent Care Outcome: Met This Shift Problem: Standards Of Nursing Care Goal: Maintain Standards Of Nursing Care Description: * Verify Care Meets Standards For Assessment And Management Of Patient Status, Medications And Treatment, Safety, And Education. * Care Reviewed Regarding: > Education Of Patient, Family, S.O. > Verify Understanding Of Causes, Treatment And Follow-Up Care Related To Disease Process. > Administration And Coordination Of Medications And Treatments As Prescribed. > Assessment, Evaluation And Communication Of Status As Indicated By: Patient Condition, Treatment And / Or Patient Response. > Comfort Measures As Indicated By: Patient Subjective And Objective Responses. Outcome: Met This Shift Problem: Pain - Acute Goal: An Acceptable Level Of Comfort Description: Patient will have adequate relief of pain, be able to cope with unrelieved pain using pharmacological and non-pharmacological methods and be able to perform desired activities. Outcome: Met This Shift Charline Ren RN [facility] 2022-05-30 16:05:44 Formatting of this n ote is different from the original. Initial visit, pt and one family member present, encouragement and spiritual support provided which resulted in hope being expressed. 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 Mu-Ism Patient's significant other Patient's Significant Other Designation Immediate family Spiritual Resources Spiritual Resources Awareness of the Holy;Hope Clerk Operator Assessment (Emotional Needs) Emotional Needs Grief/mourning Clerk Operator Assessment (Spiritual Needs) Patient Expressing Grief/mourning;Helplessness Patient Exploring Brigitte and values Clerk Operator Interventions Emotional Needs Non-anxious, non-judgmental presence provided;Emotions explored;Emotions validated;Hope encouraged;Reflective listening provided Spiritual Needs Grief/mourning explored, encouraged and/or enabled;Brigitte and or beliefs explored and/or validated;Pastoral counseling provided Linux Systems Engineerreal Matos [phone] Shawna OlsonCarlos [facility] 2022-05-30 15:46:11 Formatting of this n ote might be different from the original. Problem: Hospital Acquired Venous Thromboembolism (VTE) Goal: Absence of Hospital Acquired VTE (DVT or PE) Description: Patient will not develop VTE (DVT or PE) during the hospital stay. Outcome: Met This Shift Problem: Falls / Injury Goal: Absence of fall or injury Description: Refer to the Documentation Flowsheet for Interventions. Outcome: Met This Shift Problem: Healing Environment Goal: Provide A Physical Environment Affirmed By The Patient To Be Safe And Comfortable Outcome: Met This Shift Problem: Pain - Acute Goal: An Acceptable Level Of Comfort Description: Patient will have adequate relief of pain, be able to cope with unrelieved pain using pharmacological and non-pharmacological methods and be able to perform desired activities. Outcome: Met This Shift Edward Velasco [facility] 2022-05-30 05:30:02 Formatting of this n ote is different from the original. Problem: Hospital Acquired Venous Thromboembolism (VTE) Goal: Absence of Hospital Acquired VTE (DVT or PE) Description: Patient will not develop VTE (DVT or PE) during the hospital stay. Outcome: Met This Shift Problem: Knowledge Deficit Goal: Increase Understanding of Causes and Management of Disease Process and Treatments Description: Patient will be educated with accurate information, demonstrate knowledge and skills regarding the disease process, and the diagnostic and therapeutic plan. Outcome: Met This Shift Problem: Falls / Injury Goal: Absence of fall or injury Description: Refer to the Documentation Flowsheet for Interventions. Outcome: Met This Shift Problem: Impaired Tissue Integrity Goal: Impaired Tissue Will Be Free Of Any Openings, Swelling, Or Drainage Description: Patient s impaired tissue will be absent of redness, swelling, drainage, and pain. Outcome: Met This Shift Problem: Infection Goal: No Infections Will Occur Description: Infection will be prevented and the risk will be reduced through optimal control measures (i.e., standard, contact, and droplet precautions). Vital signs and laboratory studies will be within defined limits, and there will not be evidence of purulent drainage from wounds, or positive cultures. Outcome: Met This Shift Problem: Healing Environment Goal: Provide A Physical Environment Affirmed By The Patient To Be Safe And Comfortable Outcome: Met This Shift Goal: Identify The Patient's Healing Goal Outcome: Met This Shift Goal: Identify Traditional / Cultural Healing Practice (s) Outcome: Met This Shift Problem: Relationship Based Care Goal: Develop / Initiate The Interdisciplinary Plan For Discharge Outcome: Met This Shift Goal: Identify Support Systems Outcome: Met This Shift Goal: Patient / Family / S.O. Are Supportive And Accepting Of The Established Care Goals Outcome: Met This Shift Problem: Culturally Responsive Care Goal: Provide Culturally Competent Care Outcome: Met This Shift Problem: Standards Of Nursing Care Goal: Maintain Standards Of Nursing Care Description: * Verify Care Meets Standards For Assessment And Management Of Patient Status, Medications And Treatment, Safety, And Education. * Care Reviewed Regarding: > Education Of Patient, Family, S.O. > Verify Understanding Of Causes, Treatment And Follow-Up Care Related To Disease Process. > Administration And Coordination Of Medications And Treatments As Prescribed. > Assessment, Evaluation And Communication Of Status As Indicated By: Patient Condition, Treatment And / Or Patient Response. > Comfort Measures As Indicated By: Patient Subjective And Objective Responses. Outcome: Met This Shift Problem: Pain - Acute Goal: An Acceptable Level Of Comfort Description: Patient will have adequate relief of pain, be able to cope with unrelieved pain using pharmacological and non-pharmacological methods and be able to perform desired activities. Outcome: Met This Shift [facility] 2022-05-29 18:34:41 Formatting of this n ote is different from the original. Problem: Hospital Acquired Venous Thromboembolism (VTE) Goal: Absence of Hospital Acquired VTE (DVT or PE) Description: Patient will not develop VTE (DVT or PE) during the hospital stay. Outcome: Met This Shift Problem: Knowledge Deficit Goal: Increase Understanding of Causes and Management of Disease Process and Treatments Description: Patient will be educated with accurate information, demonstrate knowledge and skills regarding the disease process, and the diagnostic and therapeutic plan. Outcome: Met This Shift Problem: Falls / Injury Goal: Absence of fall or injury Description: Refer to the Documentation Flowsheet for Interventions. Outcome: Met This Shift Problem: Impaired Tissue Integrity Goal: Impaired Tissue Will Be Free Of Any Openings, Swelling, Or Drainage Description: Patient s impaired tissue will be absent of redness, swelling, drainage, and pain. Outcome: Met This Shift Problem: Infection Goal: No Infections Will Occur Description: Infection will be prevented and the risk will be reduced through optimal control measures (i.e., standard, contact, and droplet precautions). Vital signs and laboratory studies will be within defined limits, and there will not be evidence of purulent drainage from wounds, or positive cultures. Outcome: Met This Shift Problem: Healing Environment Goal: Provide A Physical Environment Affirmed By The Patient To Be Safe And Comfortable Outcome: Met This Shift Goal: Identify The Patient's Healing Goal Outcome: Met This Shift Goal: Identify Traditional / Cultural Healing Practice (s) Outcome: Met This Shift Problem: Relationship Based Care Goal: Develop / Initiate The Interdisciplinary Plan For Discharge Outcome: Met This Shift Goal: Identify Support Systems Outcome: Met This Shift Goal: Patient / Family / S.O. Are Supportive And Accepting Of The Established Care Goals Outcome: Met This Shift Problem: Culturally Responsive Care Goal: Provide Culturally Competent Care Outcome: Met This Shift Problem: Standards Of Nursing Care Goal: Maintain Standards Of Nursing Care Description: * Verify Care Meets Standards For Assessment And Management Of Patient Status, Medications And Treatment, Safety, And Education. * Care Reviewed Regarding: > Education Of Patient, Family, S.O. > Verify Understanding Of Causes, Treatment And Follow-Up Care Related To Disease Process. > Administration And Coordination Of Medications And Treatments As Prescribed. > Assessment, Evaluation And Communication Of Status As Indicated By: Patient Condition, Treatment And / Or Patient Response. > Comfort Measures As Indicated By: Patient Subjective And Objective Responses. Outcome: Met This Shift Problem: Pain - Acute Goal: An Acceptable Level Of Comfort Description: Patient will have adequate relief of pain, be able to cope with unrelieved pain using pharmacological and non-pharmacological methods and be able to perform desired activities. Outcome: Met This Shift Octavia Agosto RN [facility] 2022-05-29 05:08:04 Formatting of this n ote is different from the original. Problem: Hospital Acquired Venous Thromboembolism (VTE) Goal: Absence of Hospital Acquired VTE (DVT or PE) Description: Patient will not develop VTE (DVT or PE) during the hospital stay. Outcome: Met This Shift Problem: Knowledge Deficit Goal: Increase Understanding of Causes and Management of Disease Process and Treatments Description: Patient will be educated with accurate information, demonstrate knowledge and skills regarding the disease process, and the diagnostic and therapeutic plan. Outcome: Met This Shift Problem: Falls / Injury Goal: Absence of fall or injury Description: Refer to the Documentation Flowsheet for Interventions. Outcome: Met This Shift Problem: Impaired Tissue Integrity Goal: Impaired Tissue Will Be Free Of Any Openings, Swelling, Or Drainage Description: Patient s impaired tissue will be absent of redness, swelling, drainage, and pain. Outcome: Met This Shift Problem: Infection Goal: No Infections Will Occur Description: Infection will be prevented and the risk will be reduced through optimal control measures (i.e., standard, contact, and droplet precautions). Vital signs and laboratory studies will be within defined limits, and there will not be evidence of purulent drainage from wounds, or positive cultures. Outcome: Met This Shift Tyron Enriquez RN [facility] 2022-05-28 18:31:40 Formatting of this n ote is different from the original. Problem: Hospital Acquired Venous Thromboembolism (VTE) Goal: Absence of Hospital Acquired VTE (DVT or PE) Description: Patient will not develop VTE (DVT or PE) during the hospital stay. 05/28/20221830 by Octavia Agosto RN Outcome: Met This Shift 05/28/20221640 by Octavia Agosto RN Outcome: Met This Shift Problem: Knowledge Deficit Goal: Increase Understanding of Causes and Management of Disease Process and Treatments Description: Patient will be educated with accurate information, demonstrate knowledge and skills regarding the disease process, and the diagnostic and therapeutic plan. 05/28/20221830 by Octavia Agosto RN Outcome: Met This Shift 05/28/20221640 by Octavia Agosto RN Outcome: Met This Shift Problem: Falls / Injury Goal: Absence of fall or injury Description: Refer to the Documentation Flowsheet for Interventions. 05/28/20221830 by Octavia Agosto RN Outcome: Met This Shift 05/28/20221640 by Octavia Agosto RN Outcome: Met This Shift Problem: Impaired Tissue Integrity Goal: Impaired Tissue Will Be Free Of Any Openings, Swelling, Or Drainage Description: Patient s impaired tissue will be absent of redness, swelling, drainage, and pain. 05/28/20221830 by Octavia Agosto RN Outcome: Met This Shift 05/28/20221640 by Octavia Agosto RN Outcome: Met This Shift Problem: Infection Goal: No Infections Will Occur Description: Infection will be prevented and the risk will be reduced through optimal control measures (i.e., standard, contact, and droplet precautions). Vital signs and laboratory studies will be within defined limits, and there will not be evidence of purulent drainage from wounds, or positive cultures. 05/28/20221830 by Octavia Agosto RN Outcome: Met This Shift 05/28/20221640 by Octavia Agosto RN Outcome: Met This Shift Problem: Healing Environment Goal: Provide A Physical Environment Affirmed By The Patient To Be Safe And Comfortable 05/28/20221830 by Octavia Agosto RN Outcome: Met This Shift 05/28/20221640 by Octavia Agosto RN Outcome: Met This Shift Goal: Identify The Patient's Healing Goal 05/28/20221830 by Octavia Agosto RN Outcome: Met This Shift 05/28/20221640 by Octavia Agosto RN Outcome: Met This Shift Goal: Identify Traditional / Cultural Healing Practice (s) 05/28/20221830 by Octavia Agosto RN Outcome: Met This Shift 05/28/20221640 by Octavia Agosto RN Outcome: Met This Shift Problem: Relationship Based Care Goal: Develop / Initiate The Interdisciplinary Plan For Discharge 05/28/20221830 by Octavia Agosto RN Outcome: Met This Shift 05/28/20221640 by Octavia Agosto RN Outcome: Met This Shift Goal: Identify Support Systems 05/28/20221830 by Octavia Agosto RN Outcome: Met This Shift 05/28/20221640 by Octavia Agosto RN Outcome: Met This Shift Goal: Patient / Family / S.O. Are Supportive And Accepting Of The Established Care Goals 05/28/20221830 by Octavia Agosto RN Outcome: Met This Shift 05/28/20221640 by Octavia Agosto RN Outcome: Met This Shift Problem: Culturally Responsive Care Goal: Provide Culturally Competent Care 05/28/20221830 by Octavia Agosto RN Outcome: Met This Shift 05/28/20221640 by Octavia Agosto RN Outcome: Met This Shift Problem: Standards Of Nursing Care Goal: Maintain Standards Of Nursing Care Description: * Verify Care Meets Standards For Assessment And Management Of Patient Status, Medications And Treatment, Safety, And Education. * Care Reviewed Regarding: > Education Of Patient, Family, S.O. > Verify Understanding Of Causes, Treatment And Follow-Up Care Related To Disease Process. > Administration And Coordination Of Medications And Treatments As Prescribed. > Assessment, Evaluation And Communication Of Status As Indicated By: Patient Condition, Treatment And / Or Patient Response. > Comfort Measures As Indicated By: Patient Subjective And Objective Responses. 05/28/20221830 by Octavia Agosto RN Outcome: Met This Shift 05/28/20221640 by Octavia Agosto RN Outcome: Met This Shift Problem: Pain - Acute Goal: An Acceptable Level Of Comfort Description: Patient will have adequate relief of pain, be able to cope with unrelieved pain using pharmacological and non-pharmacological methods and be able to perform desired activities. 05/28/20221830 by Octavia Agosto RN Outcome: Met This Shift 05/28/20221640 by Octavia Agosto RN Outcome: Met This Shift [facility] 2022-05-28 16:41:40 Formatting of this n ote is different from the original. Problem: Hospital Acquired Venous Thromboembolism (VTE) Goal: Absence of Hospital Acquired VTE (DVT or PE) Description: Patient will not develop VTE (DVT or PE) during the hospital stay. Outcome: Met This Shift Problem: Knowledge Deficit Goal: Increase Understanding of Causes and Management of Disease Process and Treatments Description: Patient will be educated with accurate information, demonstrate knowledge and skills regarding the disease process, and the diagnostic and therapeutic plan. Outcome: Met This Shift Problem: Falls / Injury Goal: Absence of fall or injury Description: Refer to the Documentation Flowsheet for Interventions. Outcome: Met This Shift Problem: Impaired Tissue Integrity Goal: Impaired Tissue Will Be Free Of Any Openings, Swelling, Or Drainage Description: Patient s impaired tissue will be absent of redness, swelling, drainage, and pain. Outcome: Met This Shift Problem: Infection Goal: No Infections Will Occur Description: Infection will be prevented and the risk will be reduced through optimal control measures (i.e., standard, contact, and droplet precautions). Vital signs and laboratory studies will be within defined limits, and there will not be evidence of purulent drainage from wounds, or positive cultures. Outcome: Met This Shift Problem: Healing Environment Goal: Provide A Physical Environment Affirmed By The Patient To Be Safe And Comfortable Outcome: Met This Shift Goal: Identify The Patient's Healing Goal Outcome: Met This Shift Goal: Identify Traditional / Cultural Healing Practice (s) Outcome: Met This Shift Problem: Relationship Based Care Goal: Develop / Initiate The Interdisciplinary Plan For Discharge Outcome: Met This Shift Goal: Identify Support Systems Outcome: Met This Shift Goal: Patient / Family / S.O. Are Supportive And Accepting Of The Established Care Goals Outcome: Met This Shift Problem: Culturally Responsive Care Goal: Provide Culturally Competent Care Outcome: Met This Shift Problem: Standards Of Nursing Care Goal: Maintain Standards Of Nursing Care Description: * Verify Care Meets Standards For Assessment And Management Of Patient Status, Medications And Treatment, Safety, And Education. * Care Reviewed Regarding: > Education Of Patient, Family, S.O. > Verify Understanding Of Causes, Treatment And Follow-Up Care Related To Disease Process. > Administration And Coordination Of Medications And Treatments As Prescribed. > Assessment, Evaluation And Communication Of Status As Indicated By: Patient Condition, Treatment And / Or Patient Response. > Comfort Measures As Indicated By: Patient Subjective And Objective Responses. Outcome: Met This Shift Problem: Pain - Acute Goal: An Acceptable Level Of Comfort Description: Patient will have adequate relief of pain, be able to cope with unrelieved pain using pharmacological and non-pharmacological methods and be able to perform desired activities. Outcome: Met This Shift [facility] 2022-05-28 05:28:45 Formatting of this n ote is different from the original. Problem: Hospital Acquired Venous Thromboembolism (VTE) Goal: Absence of Hospital Acquired VTE (DVT or PE) Description: Patient will not develop VTE (DVT or PE) during the hospital stay. Outcome: Met This Shift Problem: Knowledge Deficit Goal: Increase Understanding of Causes and Management of Disease Process and Treatments Description: Patient will be educated with accurate information, demonstrate knowledge and skills regarding the disease process, and the diagnostic and therapeutic plan. Outcome: Met This Shift Problem: Falls / Injury Goal: Absence of fall or injury Description: Refer to the Documentation Flowsheet for Interventions. Outcome: Met This Shift Problem: Impaired Tissue Integrity Goal: Impaired Tissue Will Be Free Of Any Openings, Swelling, Or Drainage Description: Patient s impaired tissue will be absent of redness, swelling, drainage, and pain. Outcome: Met This Shift Problem: Infection Goal: No Infections Will Occur Description: Infection will be prevented and the risk will be reduced through optimal control measures (i.e., standard, contact, and droplet precautions). Vital signs and laboratory studies will be within defined limits, and there will not be evidence of purulent drainage from wounds, or positive cultures. Outcome: Met This Shift [facility] 2022-05-27 14:32:23 Formatting of this n ote might be different from the original. Problem: Falls / Injury Goal: Absence of fall or injury Description: Refer to the Documentation Flowsheet for Interventions. Outcome: Met This Shift Problem: Infection Goal: No Infections Will Occur Description: Infection will be prevented and the risk will be reduced through optimal control measures (i.e., standard, contact, and droplet precautions). Vital signs and laboratory studies will be within defined limits, and there will not be evidence of purulent drainage from wounds, or positive cultures. Outcome: Met This Shift Problem: Healing Environment Goal: Provide A Physical Environment Affirmed By The Patient To Be Safe And Comfortable Outcome: Met This Shift Goal: Identify The Patient's Healing Goal Outcome: Met This Shift Goal: Identify Traditional / Cultural Healing Practice (s) Outcome: Met This Shift Problem: Standards Of Nursing Care Goal: Maintain Standards Of Nursing Care Description: * Verify Care Meets Standards For Assessment And Management Of Patient Status, Medications And Treatment, Safety, And Education. * Care Reviewed Regarding: > Education Of Patient, Family, S.O. > Verify Understanding Of Causes, Treatment And Follow-Up Care Related To Disease Process. > Administration And Coordination Of Medications And Treatments As Prescribed. > Assessment, Evaluation And Communication Of Status As Indicated By: Patient Condition, Treatment And / Or Patient Response. > Comfort Measures As Indicated By: Patient Subjective And Objective Responses. Outcome: Met This Shift Problem: Pain - Acute Goal: An Acceptable Level Of Comfort Description: Patient will have adequate relief of pain, be able to cope with unrelieved pain using pharmacological and non-pharmacological methods and be able to perform desired activities. Outcome: Met This Shift Kavita Shelton RN [facility] 2022-05-27 05:52:57 Formatting of this n ote is different from the original. Problem: Hospital Acquired Venous Thromboembolism (VTE) Goal: Absence of Hospital Acquired VTE (DVT or PE) Description: Patient will not develop VTE (DVT or PE) during the hospital stay. Outcome: Met This Shift Problem: Knowledge Deficit Goal: Increase Understanding of Causes and Management of Disease Process and Treatments Description: Patient will be educated with accurate information, demonstrate knowledge and skills regarding the disease process, and the diagnostic and therapeutic plan. Outcome: Met This Shift Problem: Falls / Injury Goal: Absence of fall or injury Description: Refer to the Documentation Flowsheet for Interventions. Outcome: Met This Shift Problem: Impaired Tissue Integrity Goal: Impaired Tissue Will Be Free Of Any Openings, Swelling, Or Drainage Description: Patient s impaired tissue will be absent of redness, swelling, drainage, and pain. Outcome: Met This Shift Problem: Infection Goal: No Infections Will Occur Description: Infection will be prevented and the risk will be reduced through optimal control measures (i.e., standard, contact, and droplet precautions). Vital signs and laboratory studies will be within defined limits, and there will not be evidence of purulent drainage from wounds, or positive cultures. Outcome: Met This Shift [facility] 2022-05-26 15:14:40 Formatting of this n ote is different from the original. Problem: Hospital Acquired Venous Thromboembolism (VTE) Goal: Absence of Hospital Acquired VTE (DVT or PE) Description: Patient will not develop VTE (DVT or PE) during the hospital stay. Outcome: Met This Shift Problem: Knowledge Deficit Goal: Increase Understanding of Causes and Management of Disease Process and Treatments Description: Patient will be educated with accurate information, demonstrate knowledge and skills regarding the disease process, and the diagnostic and therapeutic plan. Outcome: Met This Shift Intervention: Educate Patient/Family/Significant Other On Preventive Measures To Minimize Or Alleviate Potential Effects Note: Education given on all tasks, medication and assessment done this shift. Patient verbalized understanding. Appropriate statue maker used. Problem: Falls / Injury Goal: Absence of fall or injury Description: Refer to the Documentation Flowsheet for Interventions. Outcome: Met This Shift Intervention: Initiate Fall Risk Interventions Note: Iv abx given as per order, education on medication on infection ongoing. Patient will remain free form any infection prior to discharge. Patient is independently ambulatory Problem: Impaired Tissue Integrity Goal: Impaired Tissue Will Be Free Of Any Openings, Swelling, Or Drainage Description: Patient s impaired tissue will be absent of redness, swelling, drainage, and pain. Outcome: Met This Shift Problem: Infection Goal: No Infections Will Occur Description: Infection will be prevented and the risk will be reduced through optimal control measures (i.e., standard, contact, and droplet precautions). Vital signs and laboratory studies will be within defined limits, and there will not be evidence of purulent drainage from wounds, or positive cultures. Outcome: Met This Shift Intervention: Administer Medication, Treatments And Therapies To Treat And / Or Prevent Infection Note: Iv abx given as per order, education on medication on infection ongoing. Patient will remain free form any infection prior to discharge. Problem: Healing Environment Goal: Provide A Physical Environment Affirmed By The Patient To Be Safe And Comfortable Outcome: Met This Shift Goal: Identify The Patient's Healing Goal Outcome: Met This Shift Goal: Identify Traditional / Cultural Healing Practice (s) Outcome: Met This Shift Problem: Relationship Based Care Goal: Develop / Initiate The Interdisciplinary Plan For Discharge Outcome: Met This Shift Goal: Identify Support Systems Outcome: Met This Shift Goal: Patient / Family / S.O. Are Supportive And Accepting Of The Established Care Goals Outcome: Met This Shift Problem: Culturally Responsive Care Goal: Provide Culturally Competent Care Outcome: Met This Shift Problem: Standards Of Nursing Care Goal: Maintain Standards Of Nursing Care Description: * Verify Care Meets Standards For Assessment And Management Of Patient Status, Medications And Treatment, Safety, And Education. * Care Reviewed Regarding: > Education Of Patient, Family, S.O. > Verify Understanding Of Causes, Treatment And Follow-Up Care Related To Disease Process. > Administration And Coordination Of Medications And Treatments As Prescribed. > Assessment, Evaluation And Communication Of Status As Indicated By: Patient Condition, Treatment And / Or Patient Response. > Comfort Measures As Indicated By: Patient Subjective And Objective Responses. Outcome: Met This Shift No Montoya RN [facility] 2022-05-26 11:00:00 Formatting of this n ote is different from the original. 05/26/22 1100 Intervention Education on freedom to choose and issued vendor list Yes Transportation Referrals Other Transportation medical necessity form N/A Current Support System Immediate family Coordination of Care Multidisciplinary team;Outside facilities Per consult to assist with drug treatment placement, SW connected with Pt to discuss options. SW had contacted both [facility] [phone] and [facility] [phone] per Pt's request and was informed there were no beds available. [facility] only has available beds in locations outside [place] like [facility] and [place]. SW suggested other treatment centers including [facility] [phone] who stated they have available beds and Pt is free to come to their facility in [place], ask for Layo with Intake Department. SW also provided [facility] as an option. Pt declined both options, stated he will talk with his family and may have to choose one of the [facility] locations outside of [place]. Pt will inform SW when decision is reached. Artem Cohn LMSW Laminator Hand II [facility] Office: [phone] Nikolai: [id number] Artem Barrera [facility] 2022-05-25 14:25:36 Formatting of this n ote is different from the original. Problem: Hospital Acquired Venous Thromboembolism (VTE) Goal: Absence of Hospital Acquired VTE (DVT or PE) Description: Patient will not develop VTE (DVT or PE) during the hospital stay. Outcome: Met This Shift Problem: Knowledge Deficit Goal: Increase Understanding of Causes and Management of Disease Process and Treatments Description: Patient will be educated with accurate information, demonstrate knowledge and skills regarding the disease process, and the diagnostic and therapeutic plan. Outcome: Met This Shift Problem: Falls / Injury Goal: Absence of fall or injury Description: Refer to the Documentation Flowsheet for Interventions. Outcome: Met This Shift Problem: Impaired Tissue Integrity Goal: Impaired Tissue Will Be Free Of Any Openings, Swelling, Or Drainage Description: Patient s impaired tissue will be absent of redness, swelling, drainage, and pain. Outcome: Met This Shift Problem: Infection Goal: No Infections Will Occur Description: Infection will be prevented and the risk will be reduced through optimal control measures (i.e., standard, contact, and droplet precautions). Vital signs and laboratory studies will be within defined limits, and there will not be evidence of purulent drainage from wounds, or positive cultures. Outcome: Met This Shift Problem: Healing Environment Goal: Provide A Physical Environment Affirmed By The Patient To Be Safe And Comfortable Outcome: Met This Shift Problem: Relationship Based Care Goal: Develop / Initiate The Interdisciplinary Plan For Discharge Outcome: Met This Shift Problem: Culturally Responsive Care Goal: Provide Culturally Competent Care Outcome: Met This Shift Problem: Standards Of Nursing Care Goal: Maintain Standards Of Nursing Care Description: * Verify Care Meets Standards For Assessment And Management Of Patient Status, Medications And Treatment, Safety, And Education. * Care Reviewed Regarding: > Education Of Patient, Family, S.O. > Verify Understanding Of Causes, Treatment And Follow-Up Care Related To Disease Process. > Administration And Coordination Of Medications And Treatments As Prescribed. > Assessment, Evaluation And Communication Of Status As Indicated By: Patient Condition, Treatment And / Or Patient Response. > Comfort Measures As Indicated By: Patient Subjective And Objective Responses. Outcome: Met This Shift Emerald Ruiz [facility] 2022-05-25 10:28:37 Formatting of this n ote is different from the original. THIS IS A STUDENT NOTE Infectious Diseases Consult Note Date of Consult: 05/25/22 Reason for Consult: NTM abscess Admission Date: 05/23/2022 Admission Diagnosis: Cellulitis Assessment: Tej Guadalupe is a 37y.o. year old male with PMH of IVDU, polysubstance use disorder presenting with prolonged infection of the forearm at the site of IVDU injections despite multiple I&D's and course of bactrim/keflex. 05/19 cultures now growing fast growing AFB from most suspicious for rapid growing NTM (M chelonae, M fortuitum, M abscessus) #B/l forearm abscesses - Multiple abscesses s/p I&D at sites of injection - No fevers or leukocytosis - Cultures from OSH grew beta hemolytic strep (confirmed over phone) - S/p approximately one month of cephalexin and bactrim w/o improvement - 05/19 culture from right forearm distal ulnar abscess growing AFB - Plates have been sent to [facility] for identification and sensitivities Recommendations: - After careful consideration of the literature we recommend the following to cover for M chelonae, M fortuitum, and M abscessus: - Amikacin (per pharmacist dosing) - Tigecycline (100mg load followed by 50 BID, can step down to 50 daily if poorly tolerated) - Azithromycin (500 mg daily) - We will jesu antibiotics once ID is received from [facility] - Follow all cultures to completion Thank you for this interesting consult. We will continue to follow I discussed the case with infectious diseases attending, Dr. Obando. Venu Ramos Medical Student, MS4 [facility] History Obtained From: patient, electronic medical record History of Present Illness: The patient is a [...] diarrhea, chest pain, cough, shortness of breath. He states that he normally smokes his [...] but his knowledge on this is limited. He lives in a house with his [...] homeless. He has not travelled outside of [place] recently and does not have any sick contacts. He smokes half a pack of cigarettes a day, smokes marijuana occasionally, and has not used alcohol in the past month. Prior to that he would have 1-2 drinks per day. Antimicrobials: Vancomycin (05/23 - 05/25) Cephalexin (approximately 1 month ending 05/23) Bactrim (approximately 1 month ending 05/23) Microbiology: 05/24 Wound cultures pending 05/23 Hepatitis panel negative 05/23 HIV negative 05/23 COVID negative 05/19 Wound culture: 4+ AFB Imaging: Xray forearm 05/19: Soft tissue lesion and surrounding edema in the anterior lateral distal forearm without bony involvement. Immunization history: There is no immunization history on file for this patient. Review of Systems: As per HPI, otherwise 10 point ROS negative. Objective Vitals: 05/24/22 1857 05/25/22 0031 05/25/22 0447 05/25/22 0812 BP: 110/65 117/76 113/72 110/75 Pulse: 74 70 61 68 Resp: 17 18 17 18 Temp: 97.5 °F (36.4 °C) 97.6 °F (36.4 °C) 97.6 °F (36.4 °C) 97.9 °F (36.6 °C) TempSrc: Oral Oral Oral Oral SpO2: 94% 97% 96% 92% Weight: Height: Physical Exam: General Appearance: alert, NAD, cooperative, answering questions appropriately HEENT: Head normocephalic, PERRL, EOMI, oropharynx normal, no erythema, supple, no thrush Chest: atraumatic, nontender Lungs: CTAB, no wheezing, rales, or rhonchi Heart: RRR, no murmur. Abdomen: Soft, non-distended, non-tender. +BS. No masses, rebound, or guarding. Extremities: Three 1cm incisions on right forearm w/ packing s/p I&D, no purulent drainage. Minimal erythema, no warmth. One 4 cm incision on left proximal forearm s/p I&D w/ no purulent drainage. Skin: No other visible abnormalities, rashes, or lesions. Neurologic: A&Ox3, CN's grossly intact. Data: All labs, images, and data reviewed. Internal Medicine [facility] 2022-05-25 03:18:34 Formatting of this n ote is different from the original. Problem: Hospital Acquired Venous Thromboembolism (VTE) Goal: Absence of Hospital Acquired VTE (DVT or PE) Description: Patient will not develop VTE (DVT or PE) during the hospital stay. Outcome: Met This Shift Problem: Knowledge Deficit Goal: Increase Understanding of Causes and Management of Disease Process and Treatments Description: Patient will be educated with accurate information, demonstrate knowledge and skills regarding the disease process, and the diagnostic and therapeutic plan. Outcome: Met This Shift Problem: Falls / Injury Goal: Absence of fall or injury Description: Refer to the Documentation Flowsheet for Interventions. Outcome: Met This Shift Problem: Impaired Tissue Integrity Goal: Impaired Tissue Will Be Free Of Any Openings, Swelling, Or Drainage Description: Patient s impaired tissue will be absent of redness, swelling, drainage, and pain. Outcome: Met This Shift Problem: Infection Goal: No Infections Will Occur Description: Infection will be prevented and the risk will be reduced through optimal control measures (i.e., standard, contact, and droplet precautions). Vital signs and laboratory studies will be within defined limits, and there will not be evidence of purulent drainage from wounds, or positive cultures. Outcome: Met This Shift Problem: Healing Environment Goal: Provide A Physical Environment Affirmed By The Patient To Be Safe And Comfortable Outcome: Met This Shift Goal: Identify The Patient's Healing Goal Outcome: Met This Shift Goal: Identify Traditional / Cultural Healing Practice (s) Outcome: Met This Shift Problem: Relationship Based Care Goal: Develop / Initiate The Interdisciplinary Plan For Discharge Outcome: Met This Shift Goal: Identify Support Systems Outcome: Met This Shift Goal: Patient / Family / S.O. Are Supportive And Accepting Of The Established Care Goals Outcome: Met This Shift Problem: Culturally Responsive Care Goal: Provide Culturally Competent Care Outcome: Met This Shift Problem: Standards Of Nursing Care Goal: Maintain Standards Of Nursing Care Description: * Verify Care Meets Standards For Assessment And Management Of Patient Status, Medications And Treatment, Safety, And Education. * Care Reviewed Regarding: > Education Of Patient, Family, S.O. > Verify Understanding Of Causes, Treatment And Follow-Up Care Related To Disease Process. > Administration And Coordination Of Medications And Treatments As Prescribed. > Assessment, Evaluation And Communication Of Status As Indicated By: Patient Condition, Treatment And / Or Patient Response. > Comfort Measures As Indicated By: Patient Subjective And Objective Responses. Outcome: Met This Shift [facility] 2022-05-24 18:27:10 Formatting of this n ote might be different from the original. Problem: Hospital Acquired Venous Thromboembolism (VTE) Goal: Absence of Hospital Acquired VTE (DVT or PE) Description: Patient will not develop VTE (DVT or PE) during the hospital stay. Outcome: Met This Shift Problem: Knowledge Deficit Goal: Increase Understanding of Causes and Management of Disease Process and Treatments Description: Patient will be educated with accurate information, demonstrate knowledge and skills regarding the disease process, and the diagnostic and therapeutic plan. Outcome: Met This Shift Problem: Falls / Injury Goal: Absence of fall or injury Description: Refer to the Documentation Flowsheet for Interventions. Outcome: Met This Shift Problem: Infection Goal: No Infections Will Occur Description: Infection will be prevented and the risk will be reduced through optimal control measures (i.e., standard, contact, and droplet precautions). Vital signs and laboratory studies will be within defined limits, and there will not be evidence of purulent drainage from wounds, or positive cultures. Outcome: Met This Shift Problem: Healing Environment Goal: Provide A Physical Environment Affirmed By The Patient To Be Safe And Comfortable Outcome: Met This Shift Problem: Relationship Based Care Goal: Develop / Initiate The Interdisciplinary Plan For Discharge Outcome: Met This Shift Problem: Culturally Responsive Care Goal: Provide Culturally Competent Care Outcome: Met This Shift Problem: Standards Of Nursing Care Goal: Maintain Standards Of Nursing Care Description: * Verify Care Meets Standards For Assessment And Management Of Patient Status, Medications And Treatment, Safety, And Education. * Care Reviewed Regarding: > Education Of Patient, Family, S.O. > Verify Understanding Of Causes, Treatment And Follow-Up Care Related To Disease Process. > Administration And Coordination Of Medications And Treatments As Prescribed. > Assessment, Evaluation And Communication Of Status As Indicated By: Patient Condition, Treatment And / Or Patient Response. > Comfort Measures As Indicated By: Patient Subjective And Objective Responses. Outcome: Met This Shift [facility] 2022-05-24 11:04:15 Formatting of this n ote is different from the original. Case management note: Chart reviewed for medical necessity and hospitalization 05/24/22 1103 Intervention Disease Management Meets criteria for Inpatient Medical Necessity Screening Concurrent review ([id number]) Patient meet inpatient criteria Please place order Admit to Inpatient Thank you, Samanta Hassan MSN, ACM-RN Clinical Nurse News Commentator [facility] | [address] | [place] [address] P: [phone] |F: [phone]| Samanta Hassan RN [facility] 2022-05-24 08:50:00 Formatting of this n ote is different from the original. 05/24/22 0850 Charting Type Charting Type Initial Patient Status Current Status Observation New Status Recommendation Observation Patient Information Source of Information Patient;Other (Comment) County of Residence [place] Country of [place] Immigration Status: [place] Citizen [...] Family Information Patient Marital Status Single Primary Foreign Language Interpreter Lydia Guadalupe (father) [phone] Income Information Income Source Unemployed Financial Resources Funding Source/Insurance Status Self-Pay Transportation Transportation Needs Private/family transportation Legal Information Legal Concerns No unmet needs Name, surrogate decision maker Lydia Guadalupe () [phone] Decision maker contact # Lydia vuong) [phone] Mental Health Mental Health Concerns No past / current concerns Acuity Level Medical Acuity Category 3 Information And Data Architect Analyst Acuity Mild Strengths and Limitations Patient Strengths [...] residing with father at the address on [address] [place] [address], however, will be discharging to sister's upon discharge from the hospital. Pt did not remember the address of sister's house. Family will provide discharge transportation. Healthcare Agent: Lydia Guadalupe (father) [phone]. Artem Cohn LMSW Laminator Hand II [facility] Office: [phone] Nikolai: [phone] [facility] 2022-05-24 06:45:53 Formatting of this n ote is different from the original. Problem: Falls / Injury Goal: Absence of fall or injury Description: Refer to the Documentation Flowsheet for Interventions. Outcome: Met This Shift Problem: Impaired Tissue Integrity Goal: Impaired Tissue Will Be Free Of Any Openings, Swelling, Or Drainage Description: Patient s impaired tissue will be absent of redness, swelling, drainage, and pain. Outcome: Met This Shift Problem: Infection Goal: No Infections Will Occur Description: Infection will be prevented and the risk will be reduced through optimal control measures (i.e., standard, contact, and droplet precautions). Vital signs and laboratory studies will be within defined limits, and there will not be evidence of purulent drainage from wounds, or positive cultures. Outcome: Met This Shift [facility] 2022-05-24 04:17:46 Formatting of this n ote might be different from the original. Patient transferred to . Patient refused wheelchair for transfer. Report given to Hanh MARTINI. Patient AAOx4. Ambulates independently. Respirations clear and unlabored. Skin appropriate to ethnicity. Skin intact with abscesses to the right and left forearms. Lupillo Jo [facility] 2022-05-24 02:00:00 Formatting of this n ote might be different from the original. Pt resting in room quietly, respirations even nonlabored, no acute distress. [facility] 2022-05-23 23:58:21 Formatting of this n ote might be different from the original. Pt brought meal tray per regular diet ordered by [facility] 2022-05-23 22:47:00 Formatting of this n ote might be different from the original. Patient Tej Guadalupe, 37 y.o. male, presented [...] extremities spontaneously. Patient pending medical bed admission. [facility] 2022-05-23 22:11:16 Formatting of this n ote might be different from the original. Pt ambulatory to B4 for admission with triage nurse. Pt A&OX4, respirations even nonlabored, no acute distrress/no airway distress. [facility] 2022-05-23 13:29:36 Formatting of this n ote is different from the original. Images from the original note were not included. History Chief Complaint Patient presents with Abscess 37 [...] about a month" per pt. Seen at [facility] on 05/19/2022 for same issue. I&D [...] endocarditis. History provided by: Medical records and patient production control coordinating clerk used: No Abscess Location: Shoulder/arm Shoulder/arm abscess location: R forearm and L forearm Size: 1 cm Abscess quality: fluctuance, induration, redness and warmth Red streaking: no Duration: 4 weeks Progression: Worsening Chronicity: New Context: injected drug use Context: not diabetes Relieved by: Nothing Ineffective treatments: Oral antibiotics and draining/squeezing Associated symptoms: no fever, no nausea and no [...] 127/77 | Pulse 99 | Temp 98.9 °F (37.2 °C) | Resp 18 | Ht 5' 8" (1.727 m) | Wt 81.6 kg | SpO2 95% | BMI 27.35 kg/m2 Physical Exam Constitutional: General: He is not in acute distress. [...] Mood normal. Behavior: Behavior normal. Right anterior forearm Right posterior forearm Left anterior forearm Procedures Procedures ED Course ED Course as of 05/23/22 2339 [...] with plastics following [JU] ED Course User Index [AA] Alissa Avitia MD [JU] Chicho Painter, MD [MR] Orlando Donald PA MDM Number of Diagnoses or Management Options Cellulitis of right upper extremity: new, needed workup Cutaneous abscess of right upper extremity: new, needed workup Diagnosis management comments: Assessment/Plan: 37y.o. male with PMH of bipolar disorder and substance abuse (suboxone, clonapin, crystal meth, hydrocodone) currently in detox program presents with multiple right forearm multiple abscesses x1 month, currently on PO abs, with worsening x3 days. EC work-up as below. #Forearm Abscesses - DDx: NSTI, cellulitis, abscess, compartment syndrome, SJS, TEN - hx and exam consistent with cellulitis vs abscess from IVDU with continuation of formation of abscesses and +drainage, now c/f failed PO outpatient tx - no bullae, mouth lesions, skin sloughing suggestive of SJS or TEN - neurovascularly intact, no trauma, low c/f compartment syndrome - CBC without leukocytosis, BMP pending - ESR/CRP added to w/u - IV vanco - US team to perform MSK US of fluctuant abscesses for possible drainage - hand consult Disposition: - Continue to monitor in the emergency department Orlando Donald PA-C Emergency Medicine PA Fellow Provider #[id number] 05/23/22 2:04 PM Clinical Impression 1. Cutaneous abscess of right upper extremity 2. Cellulitis of right upper extremity PROVIDER REASSESSMENT NOTE I reexamined the patient Tej Clarkel. Latest vital signs are: Vitals: 05/23/22 1053 05/23/22 1510 BP: 127/77 141/86 Pulse: 99 75 Resp: 18 18 Temp: 98.9 °F (37.2 °C) 98.1 °F (36.7 °C) SpO2: 95% 100% Weight: 81.6 kg Height: 5' 8" (1.727 m) Interval Progress: Spoke with hand (plastics) and they will follow. ED US team conducting MSK and bedside echo. Pt would benefit from admission for IV abx and hand consultation for possible surgical intervention of forearm cellulitis with abscesses. The patient s condition is stable. Current clinical impressions include: 1. Cutaneous abscess of right upper extremity 2. Cellulitis of right upper extremity Plan: Hospitalize with the following plan of care: IV antibiotics, possible operation / procedure (abscess drainage, surgical washout) and further evaluation and management NAVEEN Lane May 23, 2022 3:26 PM Associated attestation - Jose F Reyes MD - 08/01/2022 11:46 AM CDT ATTENDING PHYSICIAN STATEMENT (ADVANCED PRACTICE PROVIDER SHARED VISIT) I personally examined Tej Guadalupe and performed the warner portions of the history taking and physical examination. I reviewed the past medical records, nursing notes, laboratory results, radiology results, and BERNARDO's note and agree with the findings as documented in the BERNARDO's note. Pt is a 37y.o. male with hx of BPD, substance abuse who presents with R forearm abscesses, worsening despite Po abx. Multiple fluctuant abscesses to L forearm. 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 Cutaneous abscess of right upper extremity 3. Cellulitis of right upper extremity 4. Tobacco user 5. Benzodiazepine dependence 6. Psychiatric disorder 7. Uncomplicated opioid dependence Plan: labs, XR hand, plastics consulted. Per plastic surgery, they recommended admission to medicine for IV abx in the setting of IVDU. Jose F Reyes MD August 01, 2022 11:44 AM [facility] 2022-05-23 10:59:29 Formatting of this n ote might be different from the original. ABC intact. Resp even and unlabored. Skin warm and dry with color appropriate to ethnicity. Pt in stable condition. NAD. Verified name and verbally with pt and armband. Informed pt to notify this RN or staff if wanting to leave, and/or experiencing any changes in condition. Mary Jane Cheung RN [facility] 2022-05-23 10:50:34 Formatting of this n ote might be different from the original. MEDICAL SCREENING EXAMINATION PROVIDER NOTE I evaluated and initiated the medical screening examination of patient Tej Guadalupe. Warner Symptoms and Findings There were no vitals filed for this visit. Patient reports he had an I&D of the R forearm/wrist 1 month ago, here for swelling to that area. He denies fever or chills. He reports prior use of injected methamphetamines. History: meth use Exam: VS noted, stable GEN: alert, NAD, nontoxic PULM: speaking in complete sentences, no respiratory distress CV: distal pulses intact, no cyanosis MSK: ambulatory with steady gait, moving all extremities R distal forearm: fluctuance, areas of prior masses with serous drainage Labs Reviewed - No data to display Assessment Further evaluation will be necessary in order to determine if an emergency medical condition exists. The patient will continue in process until such time they are deemed ready for disposition. The following have been ordered to facilitate evaluation: Laboratory Studies Pain Assessment No intervention required. The patient is waiting to be roomed at this time. Stefanie Mckinney NP May 23, 2022 10:52 AM Nurse Practitioner [facility] 2022-05-22 20:38:38 Formatting of this n ote might be different from the original. Tej Guadalupe called within waiting room and did not answer x3. Patient name paged overhead within the Emergency Department without response. Waiting rooms, ED care areas and restrooms visualized and patient not found. Michelle Cuenca RN [facility] 2022-05-22 13:26:33 Formatting of this n ote is different from the original. MEDICAL SCREENING EXAMINATION PROVIDER NOTE I evaluated and initiated the medical screening examination of patient Tej Guadalupe. Warner Symptoms and Findings Vitals: 05/22/22 1327 05/22/22 1328 BP: 128/82 Pulse: 95 Temp: 97.5 °F (36.4 °C) SpO2: 97% Weight: 81.6 kg Height: 5' 8" (1.727 m) Verbal Pain Rating*: 7 History: patient reports that she needs to have a few abscesses to his right arm. He was seen for this on 05/19/2022. He has a h/lo IVDU. He last injected a month ago. Exam: Alert Well appearing In NAD Ambulatory Speech is coherent, responses appropriate Minimal localized edema noted to the righ forearm There is no erythema to the arm Labs Reviewed - No data to display Assessment Further evaluation will be necessary in order to determine if an emergency medical condition exists. The patient will continue in process until such time they are deemed ready for disposition. The following have been ordered to facilitate evaluation: Laboratory Studies Pain Assessment Pain medication ordered. The patient is waiting to be roomed at this time. Hanh Rodriguez NP May 22, 2022 1:29 PM Nurse Practitioner [facility] 2022-05-19 19:48:02 Formatting of this n ote might be different from the original. Pt AAOX4. Discharge instructions and prescription given, pt verbalizes understanding. Escorted to checkout with belongings in hand. Ambulatory with steady gait. VSS. Respirations even and unlabored. NAD upon departure. Jah Bueno RN [facility] 2022-05-19 19:35:00 Formatting of this n ote is different from the original. 37 yo pt comes to ED w/ [...] at this time Pt Is pending d/c [facility] 2022-05-19 15:56:27 Associated Order(s): I&D of Abscess Post-Procedure Diagnose(s): Right wrist pain History Chief Complaint [...] for cellulitis and had procedure (surgical I&D) ([place]), treated with cellulitis and sent home with pain medication. At home, over the span of the next couple of weeks, used thumbtack self-sterilized to open two sores, has multiple boils, has drained pus/blood and has stopped draining blood. Migrating up arm and increased in level of pain. Went to the hospital and put on more Abx. Medications - gabapentin, Abx (Bactrim, cefalexin, clonazepam, fluoxetine, olanzapine, gabapentin) Allergies [...] | Pulse (!) 115 | Temp 97.9 °F (36.6 °C) | Resp 20 | Ht 5' 8" (1.727 m) | Wt 81.6 kg | SpO2 96% | BMI 27.37 kg/m2 Physical Exam Constitutional: Appearance: He is normal weight. HENT: Head: Normocephalic and atraumatic. Nose: Nose normal. Eyes: Extraocular Movements: Extraocular movements intact. Conjunctiva/sclera: Conjunctivae normal. Cardiovascular: Rate and Rhythm: Regular rhythm. Tachycardia present. Comments: S1 and S2 auscultated without murmurs, gallops, or rubs Pulmonary: Effort: Pulmonary effort [...] 05/19/2022 7:03 PM Performed by: Chris Marrufo ResidentIL Authorized by: Daniel Petit MD Consent: Consent given by: Patient [place] protocol: Procedure explained and questions answered to patient or proxy's satisfaction: yes Relevant documents present and verified: yes Test results available and properly labeled: yes Imaging studies available: yes Required blood products, implants, devices, and special equipment available: yes Site/side marked: yes Immediately prior to procedure a time out was called: no Patient identity confirmed: Verbally with patient Location: Type: Abscess Size: 1 cm Location: Upper extremity Upper extremity location: Arm Arm location: R lower arm Pre-procedure details: Skin preparation: Antiseptic wash and Chloraprep Procedure type: Complexity: Simple Procedure details: Needle [...] of 05/19/22 190 Lea May 19, 2022 185 TEACHING PHYSICIAN NOTE I personally examined Tej [...] and plan: Patient with multiple small pustules with surrounding cellulitis. . Daniel Petit MD May 19, 2022 6:56 PM [] ED Course User Index [RM] Daniel Petit MD MDM Number of Diagnoses or Management Options Right wrist pain Diagnosis management comments: 37 year old male with PMH substance abuse and IV drug use (crystal meth) presenting with multiple fluctuant masses and erythema consistent with abscess formation, cellulitis, and possible bacteremia with concurrent benzodiazepine withdrawal. #Abscess formation vs. Cellulitis - BMP already ordered, distributive shock unlikely - Denies urinary Sx, no need for UCx - CBC already resulted, no elevated WBC - Drain abscess and Cx I&D - Continue Abx course as given (cephalexin 500 mg 4 times daily, TMP-SMX 1 tablet q 12 hours) #Benzodiazepine withdrawal - On clonazepam currently, give gabapentin for benzodiazepine withdrawal - Monitor CIWA score Dispo: D/C to facility, facility can monitor benzodiazepine withdrawal Clinical Impression 1. Right wrist pain Chris Marrufo ResidentIL Resident 05/19/22 1641 Chris Marrufo [facility] Resident 05/19/22 1738 Chris Marrufo [facility] Resident 05/19/22 1739 Chris Marrufo [facility] Resident 05/19/22 1847 Aziz, Moez K, ResidentMD Resident 05/19/221907 TEACHING PHYSICIAN NOTE I personally examined Tej [...] at this time. Benzo dependence: has been in substance abuse treatment for just over a week. Taken off benzos and discharged on gabapentin, will provide dose of gabapentin now for benzo craving. Discharged in stable condition. Daniel Petit MD May 19, 2022 10:23 PM Daniel Petit MD 05/19/222225 Internal Medicine [facility] 2022-05-19 15:51:03 Formatting of this n ote might be different from the original. Assessment X2 pt's ID, ABC intact, A&Ox4, [...] orders, will continue to monitor VINI Gonzalez Antwon Gonzalez [facility] 2022-05-19 12:42:01 Formatting of this n ote might be different from the original. Pt noted to have another hospital arm band on stated "they told me to come here to get them lanced" Emma Weathers RN [facility] 2022-05-19 12:32:25 Formatting of this n ote might be different from the original. Name and verified and confirmed correct with patient. [facility] 2022-05-19 12:30:12 Formatting of this n ote might be different from the original. MEDICAL SCREENING EXAMINATION PROVIDER NOTE I evaluated and initiated the medical screening examination of patient Tej Guadalupe. [...] to display Assessment Further evaluation will be necessary in order to determine if an emergency medical condition exists. The patient will continue in process until such time they are deemed ready for disposition. The following have been ordered to facilitate evaluation: Laboratory Studies Pain Assessment No intervention required. The patient is waiting to be roomed at this time. NAVEEN Matthews May 19, 2022 12:30 PM [facility] 2020-12-13 19:54:00 [facility] ([facility]) EMERGENCY PROVIDER REPORT REPORT#:[id number] REPORT STATUS: Signed DATE:12/13/20 TIME: 1953 PATIENT: TEJ GUADALUPE UNIT #: [id number] ROOM/BED: AGE: 35 SEX: M PCP PHYS: No Primary or Family Physician SERVICE AUTHOR: Shaggy Morrow MD * ALL edits or amendments must be made on the electronic/computer document * HPI-Seizure General Initial Greet Date/Time 12/13/201949 Presentation [...] Text HPI Notes Patient states he is withdrawing from [employer] and [employer] and thinks he may have had a [...] exertional symptoms, sweating, arm pain, back pain, or jaw pain. Denies focal numbness, focal weakness, changes in vision/speech/ hearing/gait. Risk-Seizure Free Text Risk Notes Free Text Risk Notes The patient's NIH score is 0. Level of consciousness is alert and responsive. Answers month and age correctly. Blinks eyes and squeezes hands appropriately upon command. Normal aano-lt-whvm eye movements on extraocular muscle testing. No visual field losses bilaterally. Normal symmetry of the face. No right arm, left arm, right leg, or left leg drift. No limb ataxia in any extremities. No sensory loss in the arms, legs, trunk, or face. No aphasia. No dysarthria. No extinction or inattention. Review of Systems ROS Statements All systems rev neg except as marked. Focused Review of Systems Respiratory Denies: Cough, non-productive, Cough, productive, Shortness of breath. Cardiovascular Denies: Chest pain, Syncope. Past Medical History - Adult Stated Complaint REPORTS SEIZURES Allergies Coded Allergies: No Known Allergies (12/13/20) Review of Nursing Notes Rev avail, and agree Pt reports no significant: Past medical history, Past surgical history, Family history Smoking status: Smoking status for patients 13 years old or older: Unknown,if ever smoked Physical Exam Vital Signs [...] No photophobia Ears/Nose/Throat Ears/Nose/Throat Atraumatic, Airway patent, Pharynx NL Mouth Mucous membranes dry. MS Neck Neck Supple, No meningismus, Full range of motion, No swelling, Non-tender Resp/Chest Respiratory/Chest Breath sounds NL, Breath sounds = bilat, No respiratory distress, No rales, No rhonchi, No wheezing Cardiovascular Cardiovascular Heart rate NL, Regular rhythm, Heart sounds NL, Peripheral circulation NL Abdomen/GI Abdomen/GI Soft, Non-tender, No guarding, No rebound MS Upper Extrem Upper Extremity/MS Atraumatic, Inspection NL, No swelling, Non-tender MS Lower Extrem Lower Ext/Pelvis/MS Inspection NL, No swelling, Non-tender, No erythema, No deformity, Neurologic intact, Vascular intact, No edema Skin Skin Color NL, Warm, Dry, Intact, Turgor NL Neurologic Neurologic Oriented X3, Speech NL, No motor deficits, No sensory deficits, CN II - XII intact, Reflexes equal bilat, Cerebellar NL, Memory NL, Gait NL Psychiatric Psychiatric Affect NL, Mood NL, Not homicidal, No hallucinations, Cognitive function NL, Judgment/insight NL, Thought content NL Interpretation Diagnostics Lab Results Interpretation Results Laboratory Tests 12/13/202004: [Embedded Image Not Available] Laboratory Tests: 12/13 2005 Chemistry Sodium (136 - [...] pH (5.0 - 8.0) 6.5 Ur Specific Brilliant (1.001 - 1.035) 1.014 Urine Protein (NEGATIVE [...] oximetry normal Time 1956 Re-Evaluation MDM ED Course [...] of this entry have been reviewed. Clinical Impression Clinical Impression Primary Impression: Depression Secondary Impressions: POSSIBLE SEIZURE Pt/Provider Handoff Care Transferred at 2238 (to Dr. Mari) at 2238 RPT #:[id number] END OF REPORT [facility] 2020-12-13 19:54:00 [facility] ([facility]) EMERGENCY PROVIDER REPORT REPORT#:[id number] REPORT STATUS: Signed DATE:12/13/20 TIME: 1953 PATIENT: TEJ GUADALUPE UNIT #: [id number] ROOM/BED: AGE: 35 SEX: M PCP PHYS: No Primary or Family Physician SERVICE AUTHOR: Shaggy Morrow MD * ALL edits or amendments must be made on the electronic/computer document * Shaggy Morrow 12/13/201953: HPI-Seizure General [...] Text HPI Notes Patient states he is withdrawing from [employer] and [employer] and thinks he may have had a [...] exertional symptoms, sweating, arm pain, back pain, or jaw pain. Denies focal numbness, focal weakness, changes in vision/speech/ hearing/gait. Risk-Seizure Free Text Risk Notes Free Text Risk Notes The patient's NIH score is 0. Level of consciousness is alert and responsive. Answers month and age correctly. Blinks eyes and squeezes hands appropriately upon command. Normal gqzw-jg-lxuv eye movements on extraocular muscle testing. No visual field losses bilaterally. Normal symmetry of the face. No right arm, left arm, right leg, or left leg drift. No limb ataxia in any extremities. No sensory loss in the arms, legs, trunk, or face. No aphasia. No dysarthria. No extinction or inattention. Review of Systems ROS Statements All systems rev neg except as marked. Focused Review of Systems Respiratory Denies: Cough, non-productive, Cough, productive, Shortness of breath. Cardiovascular Denies: Chest pain, Syncope. Past Medical History - Adult Stated Complaint REPORTS SEIZURES Allergies Coded Allergies: No Known Allergies (12/13/20) Review of Nursing Notes Rev avail, and agree Pt reports no significant: Past medical history, Past surgical history, Family history Smoking status: Smoking status for patients 13 years old or older: Unknown,if ever smoked Physical Exam Vital Signs [...] No photophobia Ears/Nose/Throat Ears/Nose/Throat Atraumatic, Airway patent, Pharynx NL Mouth Mucous membranes dry. MS Neck Neck Supple, No meningismus, Full range of motion, No swelling, Non-tender Resp/Chest Respiratory/Chest Breath sounds NL, Breath sounds = bilat, No respiratory distress, No rales, No rhonchi, No wheezing Cardiovascular Cardiovascular Heart rate NL, Regular rhythm, Heart sounds NL, Peripheral circulation NL Abdomen/GI Abdomen/GI Soft, Non-tender, No guarding, No rebound MS Upper Extrem Upper Extremity/MS Atraumatic, Inspection NL, No swelling, Non-tender MS Lower Extrem Lower Ext/Pelvis/MS Inspection NL, No swelling, Non-tender, No erythema, No deformity, Neurologic intact, Vascular intact, No edema Skin Skin Color NL, Warm, Dry, Intact, Turgor NL Neurologic Neurologic Oriented X3, Speech NL, No motor deficits, No sensory deficits, CN II - XII intact, Reflexes equal bilat, Cerebellar NL, Memory NL, Gait NL Psychiatric Psychiatric Affect NL, Mood NL, Not homicidal, No hallucinations, Cognitive function NL, Judgment/insight NL, Thought content NL Interpretation Diagnostics Lab Results Interpretation Results Laboratory Tests 12/13/20 2005: [Embedded Image Not Available] Laboratory Tests: 12/13 [...] pH (5.0 - 8.0) 6.5 Ur Specific Brilliant (1.001 - 1.035) 1.014 Urine Protein (NEGATIVE [...] oximetry normal Time 1956 Re-Evaluation MDM ED Course [...] of this entry have been reviewed. Clinical Impression Clinical Impression Primary Impression: Depression Secondary Impressions: POSSIBLE SEIZURE Pt/Provider Handoff Care Transferred at 8 (to Dr. Mari) Katarina Mari. 12/14/20 0518: Re-Evaluation MDM Re-Evaluation/Progress #1 Text/Dict Note Patient to be signed over to Dr. Rhodes at 7 AM. I will continue to monitor the patient until that time. Time of Re-Eval 0518 at 2238 at 0519 RPT #:[id number] END OF REPORT [facility] 2020-12-13 19:54:00 [facility] ([facility]) EMERGENCY PROVIDER REPORT REPORT#:[id number] REPORT STATUS: Signed DATE:12/13/20 TIME: 1953 PATIENT: TEJ GUADALUPE UNIT #: [id number] ROOM/BED: AGE: 35 SEX: M PCP PHYS: No Primary or Family Physician SERVICE AUTHOR: Shaggy Morrow MD * ALL edits or amendments must be made on the electronic/computer document * Shaggy Morrow 12/13/201953: HPI-Seizure General [...] Text HPI Notes Patient states he is withdrawing from [place] [employer] [place] and thinks he may have [...] exertional symptoms, sweating, arm pain, back pain, or jaw pain. Denies focal numbness, focal weakness, changes in vision/speech/ hearing/gait. Risk-Seizure Free Text Risk Notes Free Text Risk Notes The patient's NIH score is 0. Level of consciousness is alert and responsive. Answers month and age correctly. Blinks eyes and squeezes hands appropriately upon command. Normal qxoa-uw-qsug eye movements on extraocular muscle testing. No visual field losses bilaterally. Normal symmetry of the face. No right arm, left arm, right leg, or left leg drift. No limb ataxia in any extremities. No sensory loss in the arms, legs, trunk, or face. No aphasia. No dysarthria. No extinction or inattention. Review of Systems ROS Statements All systems rev neg except as marked. Focused Review of Systems Respiratory Denies: Cough, non-productive, Cough, productive, Shortness of breath. Cardiovascular Denies: Chest pain, Syncope. Past Medical History - Adult Stated Complaint REPORTS SEIZURES Allergies Coded Allergies: No Known Allergies (12/13/20) Review of Nursing Notes Rev avail, and agree Pt reports no significant: Past medical history, Past surgical history, Family history Smoking status: Smoking status for patients 13 years old or older: Unknown,if ever smoked Physical Exam Vital Signs [...] 729 Review of Vital Signs Reviewed Focused PE General/Const General/Const Awake, Alert MS Head Head Normocephalic Eyes Eyes PERRL, EOMI, No photophobia Ears/Nose/Throat Ears/Nose/Throat Atraumatic, Airway patent, Pharynx NL Mouth Mucous membranes dry. MS Neck Neck Supple, No meningismus, Full range of motion, No swelling, Non-tender Resp/Chest Respiratory/Chest Breath sounds NL, Breath sounds = bilat, No respiratory distress, No rales, No rhonchi, No wheezing Cardiovascular Cardiovascular Heart rate NL, Regular rhythm, Heart sounds NL, Peripheral circulation NL Abdomen/GI Abdomen/GI Soft, Non-tender, No guarding, No rebound MS Upper Extrem Upper Extremity/MS Atraumatic, Inspection NL, No swelling, Non-tender MS Lower Extrem Lower Ext/Pelvis/MS Inspection NL, No swelling, Non-tender, No erythema, No deformity, Neurologic intact, Vascular intact, No edema Skin Skin Color NL, Warm, Dry, Intact, Turgor NL Neurologic Neurologic Oriented X3, Speech NL, No motor deficits, No sensory deficits, CN II - XII intact, Reflexes equal bilat, Cerebellar NL, Memory NL, Gait NL Psychiatric Psychiatric Affect NL, Mood NL, Not homicidal, No hallucinations, Cognitive function NL, Judgment/insight NL, Thought content NL Interpretation Diagnostics Lab Results Interpretation Results [...] pH (5.0 - 8.0) 6.5 Ur Specific Brilliant (1.001 - 1.035) 1.014 Urine Protein (NEGATIVE [...] Negative CT head. Location: RR Impression By: JeannetteRRBo - Tano Gauthier MD Point of Care Testing Pulse Oximetry Pulse Ox % 98 On: Room air Interpretation Interpreted by me, Pulse oximetry normal Time 1956 Re-Evaluation MDM ED Course [...] of this entry have been reviewed. Clinical Impression Clinical Impression Primary Impression: Depression Secondary Impressions: POSSIBLE SEIZURE Pt/Provider Handoff Care Transferred at 2237 (to Dr. Mari) Katarina Mari 12/14/20 0518: Re-Evaluation MDM Re-Evaluation/Progress #1 Text/Dict Note Patient to be signed over to Dr. Rhodes at 7 AM. I will continue to monitor the patient until that time. Time of Re-Eval 0518 Darinel Rhodes 12/14/20 0802: Re-Evaluation MDM Free Text MDM Notes Free Text MDM Notes Patient left AMA without my involvement at 2238 at 0519 at 0803 RPT #:[id number] END OF REPORT [facility] 2020-12-06 16:41:00 [facility] ([facility]) EMERGENCY PROVIDER REPORT REPORT#:[id number] REPORT STATUS: Signed DATE:12/06/20 TIME: 1641 PATIENT: TEJ GUADALUPE UNIT #: [id number] ROOM/BED: AGE: 35 SEX: M PCP PHYS: No Primary or Family Physician SERVICE AUTHOR: Orion Martell MD * ALL edits or amendments must be made on the electronic/computer document * HPI-General Illness Free Text HPI Notes Free Text HPI Notes Presents to the ED complaining of "shakiness". Patient [...] History - Adult Stated Complaint SENT FROM [facility] FOR [facility] Allergies Coded Allergies: No Known Allergies (12/06/20) [...] Documented: Result Date Time Pulse Ox 97 / 1402 B/P 129/87 03/ 1402 B/P Mean 101 03/07 1402 O2 Delivery Room air 03/ 1402 Temp 36.6 03/ 1402 Pulse 93 03/07 1402 Resp 16 03/ 1402 Review of Vital Signs Reviewed Basic Physical Exam Basic PE pt refused Re-Evaluation MDM Free Text MDM Notes Free Text MDM Notes Patient choosing to leave before examination could be complete Patient Discharge Departure Vital Signs/Condition [...] of this entry have been reviewed. Clinical Impression Clinical Impression Primary Impression: Benzodiazepine abuse Disposition Decision Other Against Medical Advice Yes at 1528 RPT #:[id number] END OF REPORT [facility]
[2025-01-22 11:37] VITALS: BP 131/93; TEMP 98.6; O2SAT 97
== END 2025-01-22 11:32 | disposition home or self-care (01) ==
LOC: ER 11:11
DX: G89.29 Other chronic pain (principal)

== ENCOUNTER 2025-02-12 09:01 | Emergency (ER) | payer SELFPAY ==
--- OUTSIDE RECORDS SUMMARY | 2025-02-12 09:10 | XMS REPORT | Continuity of Care Document ---
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 [facility] h Heart rate 2022-05-23 08:00:00 79 /min Marisela marrero [facility] Body temperature 2022-05-23 08:00:00 36.83 Franci [facility] Respiratory rate 2022-05-23 08:00:00 20 /min [facility] Oxygen saturation in Arterial blood by Pulse oximetry 2022-05-23 08:00:00 95 [facility] 2022-05-19 11:13:00 172.7 cm [facility] Body weight 2022-05-19 11:13:00 81.557 kg [facility] BMI 2022-05-19 11:13:00 27.34 kg/m2 [facility] Procedures Procedure Date / Time Performed Performing Clinician Source ASSIGNMENT OF BENEFITS 2023-11-01 20:19:08 Docto r Unassigned, [place] CONSENT/REFUSAL FOR DIAGNOSIS AND TREATMENT 2023-11-01 18:57:25 Doctor Unassigned, [facility] CONSENT/REFUSAL FOR DIAGNOSIS AND TREATMENT 2023-10-02 17:51:45 Doctor Unassigned, [facility] NOTICE OF PRIVACY PRACTICES 2023-09-29 00:09:30 Doctor Unassigned, [facility] CONSENT/REFUSAL FOR DIAGNOSIS AND TREATMENT 2023-09-29 00:09:09 Doctor Unassigned, [facility] CONSENT/REFUSAL FOR DIAGNOSIS AND TREATMENT 2022-06-06 17:25:33 Doctor Unassigned, [facility] BASIC METABOLIC PANEL 2022-06-02 03:57:00 Ian [facility] BASIC METABOLIC PANEL 2022-06-02 03:57:00 Ian [facility] AMIKACIN, TROUGH LEVEL 2022-05-31 21:13:00 Mely Soliz [facility] AMIKACIN, TROUGH LEVEL 2022-05-31 21:13:00 HeydiMely [facility] WOUND/ABSCESS CULTURE AND GRAM STAIN 2022-05-31 08:53:00 Germán, [facility] AFB STAIN AND CULTURE 2022-05-31 08:53:00 Germán, [facility] ANAEROBE CULTURE 2022-05-31 08:53:00 Germán, [facility] FUNGUS STAIN AND CULTURE 2022-05-31 08:53:00 Germán, C [facility] AFB STAIN AND CULTURE 2022-05-31 08:53:00 Germán [facility] ANAEROBE CULTURE 2022-05-31 08:53:00 Germán, [facility] FUNGUS STAIN AND CULTURE 2022-05-31 08:53:00 Germán, C [facility] WOUND/ABSCESS CULTURE AND GRAM STAIN 2022-05-31 08:53:00 Germán, [facility] BASIC METABOLIC PANEL 2022-05-31 05:12:00 Lulu Ian wilson [facility] BASIC METABOLIC PANEL 2022-05-31 05:12:00 Lulu Ian wilson [facility] GLUCOSE POC 2022-05-29 08:04:00 [facility] GLUCOSE POC 2022-05-29 08:04:00 [facility] CBC (WITHOUT DIFFERENTIAL) 2022-05-29 04:33:00 [facility]EL 2022-05-29 04:33:00 Lawson Ian wilson [facility] BASIC METABOLIC PANEL 2022-05-29 04:33:00 Lawson Ian wilson [facility] CBC (WITHOUT DIFFERENTIAL) 2022-05-29 04:33:00 Lawson, [facility] GLUCOSE POC 2022-05-28 16:49:00 MarcinLupe ruano [facility] GLUCOSE POC 2022-05-28 16:49:00 MarcinLupe [facility] GLUCOSE POC 2022-05-28 11:46:00 MarcinLupe [facility] GLUCOSE POC 2022-05-28 11:46:00 MarcinLupe [facility]ano [facility] GLUCOSE POC 2022-05-28 08:24:00 MarcinLupe [facility] GLUCOSE POC 2022-05-28 08:24:00 MarcinLupe [facility] CBC (WITHOUT DIFFERENTIAL) 2022-05-28 04:36:00 Lawson[facility]ath [facility] BASIC METABOLIC PANEL 2022-05-28 04:36:00 Lawson Ian Garcia [facility] BASIC METABOLIC PANEL 2022-05-28 04:36:00 Lawson Ian Garcia [facility] CBC (WITHOUT DIFFERENTIAL) 2022-05-28 04:36:00 Lawson Heath Garcia [facility] CBC (WITHOUT DIFFERENTIAL) 2022-05-27 05:10:00 Lawson Heath Garcia [facility] BASIC METABOLIC PANEL 2022-05-27 05:10:00 Lawson Ian wilson [facility] AMIKACIN, RANDOM LEVEL 2022-05-27 05:10:00 Marcin, Matteo mora S [facility] BASIC METABOLIC PANEL 2022-05-27 05:10:00 Lawson Ian Garcia [facility] CBC (WITHOUT DIFFERENTIAL) 2022-05-27 05:10:00 Lawson Heath Garcia [facility] AMIKACIN, RANDOM LEVEL 2022-05-27 05:10:00 Marcin, Matteo munozd S [facility] AMIKACIN, RANDOM LEVEL 2022-05-26 23:35:00 Marcin, Da vid S [facility] AMIKACIN, RANDOM LEVEL 2022-05-26 23:35:00 Marcin, Da vid S [facility] AMIKACIN, TROUGH LEVEL 2022-05-26 05:53:00 Hazel Obando [facility] CBC (WITHOUT DIFFERENTIAL) 2022-05-26 05:53:00 Lawson Heath [facility] BASIC METABOLIC PANEL 2022-05-26 05:53:00 Lawson Ian wilson [facility] BASIC METABOLIC PANEL 2022-05-26 05:53:00 Ian Lawson [facility] CBC (WITHOUT DIFFERENTIAL) 2022-05-26 05:53:00 Lulu [facility] AMIKACIN, TROUGH LEVEL 2022-05-26 05:53:00 Hazel Obando [facility] CONSULT CLINICAL CASE MANAGEMENT (RN/SW) 2022-05-25 14:55:14 OradellMyles gonzalez [facility] CONSULT CLINICAL CASE MANAGEMENT (RN/SW) 2022-05-25 14:55:14 [facility]DIFF 2022-05-25 08:24:00 Lulu [facility] BASIC METABOLIC PANEL 2022-05-25 08:24:00 Ian Lawson [facility] CBC 2022-05-25 08:24:00 Lulu [facility] BASIC METABOLIC PANEL 2022-05-25 08:24:00 Ian Lawson [facility] CBC/DIFF 2022-05-25 08:24:00 Lulu [facility] CBC 2022-05-25 08:24:00 [facility] ANAEROBE CULTURE 2022-05-24 20:47:00 [facility]SCESS CULTURE AND GRAM STAIN 2022-05-24 20:47:00 [facility] 2022-05-24 20:47:00 [facility]OUND/ABSCESS CULTURE AND GRAM STAIN 2022-05-24 20:47:00 [facility] ST[facility] CULTURE 2022-05-24 15:44:00 Germán [facility] FUNGUS STAIN AND CULTURE 2022-05-24 15:44:00 Pilo Dunlap [facility] AFB STAIN AND CULTURE 2022-05-24 15:44:00 Germán [facility] FUNGUS STAIN AND CULTURE 2022-05-24 15:44:00 Pilo Dunlap [facility] INFUSION PUMP 2022-05-24 04:24:[address] [facility] INFUSION PUMP 2022-05-24 04:24:[address] [facility] CBC/DIFF 2022-05-24 04:22:00 Yasmany Gonzalez [facility] CBC 2022-05-24 04:22:00 Yasmany Gonzalez [facility] CBC/DIFF 2022-05-24 04:22:00 Yasmany Gonzalez [facility] CBC 2022-05-24 04:22:00 Yasmany Gonzalez [facility] HIV AG/AB COMBO DIAGNOSTIC/SYMPTOMATIC 2022-05-23 18:44:00 [facility] HEPATITIS PANEL 2022-05-23 18:44:00 Adore, [facility] HEPATITIS PANEL 2022-05-23 18:44:00 Adore, [facility] HIV AG/AB COMBO DIAGNOSTIC/SYMPTOMATIC 2022-05-23 18:44:00 [facility], [facility] SARS-COV-2, FLU A/B, RSV 2022-05-23 15:41:00 Orlando Donald [facility] CORONAVIRUS, COVID-19, YOKASTA 2022-05-23 15:41:00 Orlando Donald [facility] CORONAVIRUS, COVID-19, YOKASTA 2022-05-23 15:41:00 Orlando Donald [facility] SARS-COV-2, FLU A/B, RSV 2022-05-23 15:41:00 Orlando Donald [facility] BASIC METABOLIC PANEL 2022-05-23 11:25:00 German Mckinney [facility] CBC/DIFF 2022-05-23 11:25:00 Stefanie Mckinney [facility] CBC 2022-05-23 11:25:00 Stefanie Mckinney [facility] SED RATE 2022-05-23 11:25:00 [facility]OT 2022-05-23 11:25:[address] [facility] BASIC METABOLIC PANEL 2022-05-23 11:25:00 German Mckinney [facility] CBC/DIFF 2022-05-23 11:25:00 Stefanie Mckinney [facility] C-REACTIVE PROT 2022-05-23 11:25:00 Orlando Donald [facility] SED RATE 2022-05-23 11:25:00 Orlando Donald [facility] CBC 2022-05-23 11:25:00 Stefanie Mckinney [facility] BEDSIDE ULTRASOUND 2022-05-23 11:08:27 Unknown, Igor [facility] HC POC URINE DRUG SCREEN 2022-05-19 21:30:[address] [facility] HC POC URINE DRUG SCREEN 2022-05-19 21:30:00 [facility] I&D OF ABSCESS 2022-05-19 19:03:24 Chris Marrufo [facility] I&D OF ABSCESS 2022-05-19 19:03:24 [facility]ESS CULTURE AND GRAM STAIN 2022-05-19 18:54:00 [facility] WOUND/ABSCESS CULTURE AND GRAM STAIN 2022-05-19 18:54:00 Donell Marrufosarah [facility] XRAY FOREARM 2 VIEWS MIN 2022-05-19 17:04:37 Keagan Wells [facility] XRAY FOREARM 2 VIEWS MIN 2022-05-19 17:04:37 Keagan Wells [facility] CBC/DIFF 2022-05-19 14:29:00 Russell [facility] BASIC METABOLIC PANEL 2022-05-19 14:29:00 Russell [facility] LACTIC ACID 2022-05-19 14:29:00 [facility] 2022-05-19 14:29:00 Naomi [facility] SED RATE 2022-05-19 14:29:00 Russell [facility] C-REACTIVE PROT 2022-05-19 14:29:[address] [facility] BASIC METABOLIC PANEL 2022-05-19 14:29:00 Dana Wells [facility] CBC/DIFF 2022-05-19 14:29:00 Tramaine [facility] C-REACTIVE PROT 2022-05-19 14:29:[address] [facility] LACTIC ACID 2022-05-19 14:29:00 Russell [facility] SED RATE 2022-05-19 14:29:00 Tramaine [facility] CBC 2022-05-19 14:29:00 [facility] POC URINE DRUG SCREEN 2022-05-19 11:15:[address] HC POC URINE DRUG SCREEN 2022-05-19 11:15:00 [facility] POC COVID-19 2022-05-17 17:50:00 Kerline [facility] POC URINE DRUG SCREEN 2022-05-12 17:47:00 [facility] HC POC URINE DRUG SCREEN 2022-05-12 17:47:00 [facility] POC COVID-19 2022-05-11 23:56:00 [facility] XRAY WRIST 3 VIEWS MIN 2022-05-11 17:04:00 [facility] CBC/DIFF 2022-05-11 16:20:00 Michael [facility] BASIC METABOLIC PANEL 2022-05-11 16:20:00 German Rodriguez [facility] HIV AG/AB COMBO ROUTINE SCREENING 2022-05-11 16:20:00 Michael [facility] CBC 2022-05-11 16:20:[address] [facility] URINE DRUG (IMMUNOASSAY) - COMPREHENSIVE DRUG SCREEN 2021-01-30 22:04:00 Shy Martin [facility] HEPATIC FUNCTION PANEL (23401) (ALB,T.PRO,BILI T,BU/BC,ALT,AST,ALK PHOS) 2021-01-30 22:03:00 Shy Martin [facility] BASIC METABOLIC PANEL (NA, K, CL, CO2, GLUCOSE, BUN, CREATININE, CA) 2021-01-30 22:03:00 Shy Martin [facility] SALICYLATE 2021-01-30 22:03:00 [facility] 2021-01-30 22:03:00 Shy Martin Un [facility] CBC WITH DIFF 2021-01-30 22:03:00 [facility] 2021-01-30 22:02:00 [facility] (ID NOW RAPID TESTING) 2021-01-30 22:02:00 Shy Martin [facility] NOTICE OF PRIVACY PRACTICES 2021-01-30 21:37:21 Doctor Unassigned, [facility] CONSENT/REFUSAL FOR DIAGNOSIS AND TREATMENT 2021-01-30 21:37:00 Doctor Unassigned, [facility] Plan of Care Planned Activity Planned Date Details Comments [facility] Scheduled Test 2023-07-02 00:00:00 IMM Influenza Seasonal (>/= 19 yrs) [code = IMM Influenza Seasonal (>/= 19 yrs)] [facility] Scheduled Test 2023-07-02 00:00:00 IMM Influenza Seasonal (>/= 19 yrs) [code = IMM Influenza Seasonal (>/= 19 yrs)] [facility] Scheduled Test 2023-06-02 00:00:00 IMM Influenza Seasonal (>/= 19 yrs) [code = IMM Influenza Seasonal (>/= 19 yrs)] [facility] Scheduled Test 2023-06-02 00:00:00 IMM Influenza Seasonal (>/= 19 yrs) [code = IMM Influenza Seasonal (>/= 19 yrs)] [facility] Scheduled Test 2023-06-02 00:00:00 IMM Influenza Seasonal (>/= 19 yrs) [code = IMM Influenza Seasonal (>/= 19 yrs)] [facility] Scheduled Test 2023-06-02 00:00:00 IMM Influenza Seasonal (>/= 19 yrs) [code = IMM Influenza Seasonal (>/= 19 yrs)] [facility] Scheduled Test 2023-06-02 00:00:00 IMM Influenza Seasonal (>/= 19 yrs) [code = IMM Influenza Seasonal (>/= 19 yrs)] [facility] Scheduled Test 2023-06-02 00:00:00 COVID-19 Vaccine ( season) [code = COVID-19 Vaccine ( season)] [facility] Scheduled Test 2023-06-02 00:00:00 IMM Influenza Seasonal (>/= 19 yrs) [code = IMM Influenza Seasonal (>/= 19 yrs)] [facility] Scheduled Test 2023-06-02 00:00:00 COVID-19 Vaccine ( season) [code = COVID-19 Vaccine ( season)] [facility] Scheduled Test 2023-06-02 00:00:00 IMM Influenza Seasonal (>/= 19 yrs) [code = IMM Influenza Seasonal (>/= 19 yrs)] [facility] Scheduled Test 2022-07-02 00:00:00 IMM Influenza Seasonal (>/= 19 yrs) [code = IMM Influenza Seasonal (>/= 19 yrs)] [facility] Scheduled Test 2022-07-02 00:00:00 IMM Influenza Seasonal (>/= 19 yrs) [code = IMM Influenza Seasonal (>/= 19 yrs)] [facility] Scheduled Test 2022-07-02 00:00:00 IMM Influenza Seasonal (>/= 19 yrs) [code = IMM Influenza Seasonal (>/= 19 yrs)] [facility] Scheduled Test 1992 00:00:00 Imm Pneumococcal 0-64 (1 - PCV) [code = Imm Pneumococcal 0-64 (1 - PCV)] [facility] Scheduled Test 1992 00:00:00 Imm Pneumococcal 0-64 (1 - PCV) [code = Imm Pneumococcal 0-64 (1 - PCV)] [facility] Scheduled Test 1992 00:00:00 Imm Pneumococcal 0-64 (1 - PCV) [code = Imm Pneumococcal 0-64 (1 - PCV)] [facility] Scheduled Test 1992 00:00:00 Imm Pneumococcal 0-64 (1 - PCV) [code = Imm Pneumococcal 0-64 (1 - PCV)] [facility] Scheduled Test 1992 00:00:00 Imm Pneumococcal 0-64 (1 - PCV) [code = Imm Pneumococcal 0-64 (1 - PCV)] [facility] Scheduled Test 1992 00:00:00 Imm Pneumococcal 0-64 (1 - PCV) [code = Imm Pneumococcal 0-64 (1 - PCV)] [facility] Scheduled Test 1992 00:00:00 Imm Pneumococcal 0-64 (1 - PCV) [code = Imm Pneumococcal 0-64 (1 - PCV)] [facility] Scheduled Test 1992 00:00:00 Imm Pneumococcal 0-64 (1 of 2 - PCV) [code = Imm Pneumococcal 0-64 (1 of 2 - PCV)] [facility] Scheduled Test 1992 00:00:00 Imm Pneumococcal 0-64 (1 of 2 - PCV) [code = Imm Pneumococcal 0-64 (1 of 2 - PCV)] [facility] Scheduled Test 1992 00:00:00 Imm Pneumococcal 0-64 (1 of 2 - PCV) [code = Imm Pneumococcal 0-64 (1 of 2 - PCV)] [facility] Scheduled Test 1992 00:00:00 Imm Pneumococcal 0-64 (1 of 2 - PCV) [code = Imm Pneumococcal 0-64 (1 of 2 - PCV)] [facility] Scheduled Test 1992 00:00:00 Imm Pneumococcal 0-64 (1 - PCV) [code = Imm Pneumococcal 0-64 (1 - PCV)] [facility] Scheduled Test 1986 00:00:00 COVID-19 Vaccine (#1) [code = COVID-19 Vaccine (#1)] [facility] Scheduled Test 1986 00:00:00 COVID-19 Vaccine (#1) [code = COVID-19 Vaccine (#1)] [facility] Scheduled Test 1986 00:00:00 COVID-19 Vaccine (#1) [code = COVID-19 Vaccine (#1)] [facility] Scheduled Test 1986 00:00:00 COVID-19 Vaccine (#1) [code = COVID-19 Vaccine (#1)] [facility] Scheduled Test 1986 00:00:00 COVID-19 Vaccine (#1) [code = COVID-19 Vaccine (#1)] [facility] Scheduled Test 1986 00:00:00 COVID-19 Vaccine (#1) [code = COVID-19 Vaccine (#1)] [facility] Scheduled Test 1986 00:00:00 COVID-19 Vaccine (#1) [code = COVID-19 Vaccine (#1)] [facility] Scheduled Test 1986 00:00:00 COVID-19 Vaccine (#1) [code = COVID-19 Vaccine (#1)] [facility] Scheduled Test 1986 00:00:00 COVID-19 Vaccine (#1) [code = COVID-19 Vaccine (#1)] [facility] Scheduled Test 1986 00:00:00 COVID-19 Vaccine (#1) [code = COVID-19 Vaccine (#1)] [facility] Scheduled Test 1986 00:00:00 Fluoride Varnish [code = Fluoride Varnish] [facility] Scheduled Test 1986 00:00:00 Fluoride Varnish [code = Fluoride Varnish] [facility] Start Date/Time End Date/Time Encounter Type Admission Type Attending [facility] Care Department Encounter ID Source 2022-06-15 12:36:45 Outpatient [facility] [id number] [facility] 2022-06-14 12:01:29 Emergency HFD HFD [id number] [facility] ent 2022-06-06 23:18:34 Outpatient [facility] [id number] [facility] 2022-06-06 23:16:04 Outpatient [facility] [id number] [facility] 2022-04-06 05:42:38 Outpatient [facility] [id number] [facility] 2020-12-14 08:08:00 Inpatient [facility] LJ [id number] [facility] 2020-12-13 19:49:00 Inpatient [facility] LJ [id number] [facility] 2020-12-06 14:30:44 Inpatient [facility] [id number] [facility] 2024-01-02 00:00:00 2024-01-02 00:00:00 Patient Outreach Tatiana Allen [id number] [facility] 2023-11-01 13:02:00 2023-11-01 14:34:00 Emergency X Ella GONZALEZ [facility] ERT [id number] [facility] 2023-11-01 13:02:00 2023-11-01 14:34:00 Emergency Ella Gonzalez [facility] [id number] [id number] [id number] [id number] [facility] 2023-10-02 11:59:00 2023-10-02 12:42:00 Emergency X DEB BURGOS [facility] ERT [id number] [facility] 2023-10-02 11:59:00 2023-10-02 12:42:00 Emergency Deb Burgos [facility] [id number] 350.1.13.10 [id number] [id number] [facility] 2023-09-28 18:19:00 2023-09-28 19:26:00 Emergency LILIANE DAILYDA [facility] ERT [id number] [facility] 2023-09-28 18:19:00 2023-09-28 19:26:00 Emergency Dyana Jorgensen [facility] [id number] 350.1.13.10 4.2.7.2.686 [id number] [facility] 2023-09-28 00:00:00 2023-09-28 00:00:00 Orders Only Doctor Unassigned, [place] [facility] [id number] 350.1.13.10 4.2.7.2.686 [id number] [facility] 2022-07-27 08:49:00 2022-07-27 12:49:00 Emergency [id number] [facility] 2022-06-24 08:00:00 2022-06-24 08:30:00 Office Visit Fanta Hernandez [facility] [id number] [id number] [facility] 2022-06-20 00:00:00 2022-06-20 00:00:00 Outpatient [facility] [id number] [facility] 2022-06-14 18:10:00 2022-06-17 00:38:00 Emergency [place] [facility] 2022-06-14 10:48:00 2022-06-14 15:20:00 Emergency [place] [facility] 2022-06-06 12:34:00 2022-06-06 13:23:00 Emergency X DANIEL DUMONT [facility] [id number] [facility] 2022-06-06 12:34:00 2022-06-06 13:23:00 Emergency Daniel Dumont [facility] [id number] 350.1.13.10 4.2.7.2.686 [id number] [facility] 2022-06-03 00:00:00 2022-06-04 22:29:00 Emergency [facility] [id number] [facility] 2022-06-03 00:00:00 2022-06-04 22:29:00 Emergency [facility] 1..840.114 350.1.13.43 [id number] [facility] 2022-06-03 23:37:47 2022-06-03 23:59:00 Outpatient [facility] [id number] [facility] 2022-06-03 21:28:26 2022-06-03 23:36:00 Outpatient [facility] [id number] [facility] 2022-05-23 13:09:00 2022-06-03 18:30:00 Hospital Encounter Jose F Reyes David S [facility] 1..840.114 [id number] .[id number] [facility] 2022-05-30 16:04:37 2022-05-30 16:04:39 Inpatient [facility] [id number] [facility] 2022-05-23 13:09:00 2022-05-23 13:09:00 Inpatient 1 LUPE BURCH [facility] [id number] [facility] 2022-05-22 19:04:00 2022-05-22 20:39:00 Emergency Kalina Meraz [facility] [id number] [id number] [facility] 2022-05-19 14:06:00 2022-05-19 19:49:00 Emergency 1 DANIEL PETIT [facility] [id number] [facility] 2022-05-19 14:06:00 2022-05-19 19:49:00 Emergency Daniel Petit [facility] [id number] [id number] [facility] 2022-05-19 16:50:11 2022-05-19 17:04:43 Emergency [facility] [id number] [facility] 2022-05-18 10:13:00 2022-05-19 10:30:00 Inpatient [facility] [id number] [facility] 2022-05-11 22:33:18 2022-05-18 09:43:00 Inpatient KERLINE OMER [facility] [id number] [facility] 2022-05-11 19:53:00 2022-05-11 21:53:00 Emergency Daniel Petit [facility] [id number] [facility] 2022-05-11 19:53:00 2022-05-11 21:53:00 Emergency Daniel Petit [facility] [id number] [facility] 2022-05-11 16:54:18 2022-05-11 17:05:03 Emergency [facility] [id number] [facility] 2022-05-11 16:05:00 2022-05-11 16:05:00 Emergency 1 [facility] [id number] [facility] 2021-01-30 16:48:00 2021-01-30 23:59:00 Emergency Shy Martin [facility] 1..840.114 [id number] [facility] 2021-01-30 16:48:00 2021-01-30 16:48:00 Emergency X SHY MARTIN [facility] ERT [id number] [facility] 2021-01-30 00:00:00 2021-01-30 00:00:00 Orders Only Doctor Unassigned, [place] [id number] [facility] 2020-03-03 09:37:00 2020-03-03 09:37:00 Emergency X [facility] ERT [id number] [facility] Results Test Description Test Time Test Comments Results Result Co mments Source [facility] Vdmdxhz5875-94-70 11:04:16* Test Item Value Reference Range Interpretation Comme nts AFB Culture (test code = 543-9) No acid fast bacilli isolated in 6 weeks AFB Stain (test code = 676-7) No acid fast bacilli seen TRACY (test code = TRACY) Reference value: N o acid fast bacilli isolated [facility] Qiovzdz6340-31-93 11:04:16* Test Item Value Reference Range Interpretation Comme nts AFB Culture (test code = 543-9) No acid fast bacilli isolated in 6 weeks AFB Stain (test code = 676-7) No acid fast bacilli seen TRACY (test code = TRACY) Reference value: N o acid fast bacilli isolated [facility] Xnegmpv3703-93-56 21:02:46* Test Item Value Reference Range Interpretation Comme nts AFB Culture (test code = 543-9) No acid fast bacilli isolated in 6 weeks AFB Stain (test code = 676-7) No acid fast bacilli seen TRACY (test code = TRACY) Reference value: N o acid fast bacilli isolated [facility] Tigasvf9150-76-06 21:02:45* Test Item Value Reference Range Interpretation Comme nts AFB Culture (test code = 543-9) No acid fast bacilli isolated in 6 weeks AFB Stain (test code = 676-7) No acid fast bacilli seen TRACY (test code = TRACY) Reference value: N o acid fast bacilli isolated [facility] Fkylttt5893-15-65 20:02:40* Test Item Value Reference Range Interpretation Comme nts AFB Culture (test code = 543-9) No acid fast bacilli isolated in 6 weeks AFB Stain (test code = 676-7) No acid fast bacilli seen TRACY (test code = TRACY) Reference value: N o acid fast bacilli isolated [facility] Jwswegp9808-19-63 19:03:24* Test Item Value Reference Range Interpretation Comme nts Fungus Culture (test code = 580-1) No fungus isolated in 4 weeks Fungus Stain (test code = 658-5) No fungal elements seen TRACY (test code = TRACY) Reference value: N o fungus isolated [facility] Bpejeem4941-67-99 19:03:24* Test Item Value Reference Range Interpretation Comme nts Fungus Culture (test code = 580-1) No fungus isolated in 4 weeks Fungus Stain (test code = 658-5) No fungal elements seen TRACY (test code = TRACY) Reference value: N o fungus isolated [facility] Jgjdrcm6875-53-98 19:03:24* Test Item Value Reference Range Interpretation Comme nts Fungus Culture (test code = 580-1) No fungus isolated in 4 weeks Fungus Stain (test code = 658-5) No fungal elements seen TRACY (test code = TRACY) Reference value: N o fungus isolated [facility] Evotqbg2876-89-19 05:04:44* Test Item Value Reference Range Interpretation Comme nts Fungus Culture (test code = 580-1) No fungus isolated in 4 weeks Fungus Stain (test code = 658-5) No fungal elements seen TRACY (test code = TRACY) Reference value: N o fungus isolated [facility] Kflqfhx8207-98-94 05:04:43* Test Item Value Reference Range Interpretation Comme nts Fungus Culture (test code = 580-1) No fungus isolated in 4 weeks Fungus Stain (test code = 658-5) No fungal elements seen TRACY (test code = TRACY) Reference value: N o fungus isolated [facility] Pkebgto1021-85-73 04:04:04* Test Item Value Reference Range Interpretation Comme nts Fungus Culture (test code = 580-1) No fungus isolated in 4 weeks Fungus Stain (test code = 658-5) No fungal elements seen TRACY (test code = TRACY) Reference value: N o fungus isolated [facility] Yrdvelm0521-12-70 06:33:06* Test Item Value Reference Range Interpretation Comme nts Anaerobe Culture (test code = 635-3) No anaerobes isolated in 5 days TRACY (test code = TRACY) Reference value: N o anaerobes isolated [facility] Vjcsqot3371-52-13 06:33:06* Test Item Value Reference Range Interpretation Comme nts Anaerobe Culture (test code = 635-3) No anaerobes isolated in 5 days TRACY (test code = TRACY) Reference value: N o anaerobes isolated [facility] Doqmktt6307-87-25 06:33:06* Test Item Value Reference Range Interpretation Comme nts Anaerobe Culture (test code = 635-3) No anaerobes isolated in 5 days TRACY (test code = TRACY) Reference value: N o anaerobes isolated [facility] Auhaemr9589-42-41 06:33:06* Test Item Value Reference Range Interpretation Comme nts Anaerobe Culture (test code = 635-3) No anaerobes isolated in 5 days TRACY (test code = TRACY) Reference value: N o anaerobes isolated [facility] Kobpl7939-09-09 08:20:27* Test Item Value Reference Range Interpretation [...] the reference value is considered "No growth". [facility] Gram Lrnzm5853-39-79 08:20:27* Test Item Value Reference Range Interpretation [...] "No growth". [facility] Gram Jublf9508-61-90 08:20:27* Test Item Value Reference Range Interpretation [...] the reference value is considered "No growth". [facility]Abscess Culture & Gram Hukxa6545-43-14 08:20:27* Test Item Value Reference Range Interpretation [...] the reference value is considered "No growth". [facility] Kkegg0839-95-49 10:37:20* Test Item Value Reference Range Interpretation Comme nts Wound Culture (test code = 6463-4) 1+ Acid fast bacilli AA REFER TO [id number] Gram Stain (test code = 664-3) No organisms seen TRACY (test code = TRACY) Reference value: Non-sterile sites may be contaminated with esperanza that is considered normal or otherwise not clinically relevant. As appropriate, normal results will indicate the presence or absence of such esperanza. Otherwise, the reference value is considered "No growth". Lab Interpretation (test code = 20429-6) Abnormal [facility] Didx0670-10-93 10:37:20* Test Item Value Reference Range Interpretation Comme nts Bacteria Spec Cult (test code = 6463-4) ACID-FAST BACILLUS AA 1+ Acid fast bacilliREFER TO [id number] Reference value: Non-sterile sites may be contaminated with esperanza that is considered normal or otherwise not clinically relevant. As appropriate, normal results will indicate the presence or absence of such esperanza. Otherwise, the reference value is considered "No growth".[facility] Gram Stain 2022-06-03 10:36:38* Test Item Value Reference Range Interpretation Comme nts Wound Culture (test code = 6463-4) Acid fast bacilli AA REFER TO [id number] Gram Stain (test code = 664-3) No organisms seen TRACY (test code = TRACY) Reference value: Non-sterile sites may be contaminated with esperanza that is considered normal or otherwise not clinically relevant. As appropriate, normal results will indicate the presence or absence of such esperanza. Otherwise, the reference value is considered "No growth". Lab Interpretation (test code = 82184-2) Abnormal [facility] Fnww5314-43-57 10:36:38* Test Item Value Reference Range Interpretation Comme nts Bacteria Spec Cult (test code = 6463-4) ACID-FAST BACILLUS AA Acid fast bacilliREFER TO [id number] Reference value: Non-sterile sites may be contaminated [...] 6463-4) Acid fast bacilli AA REFER TO [id number] Gram Stain (test code = 664-3) No organisms seen TRACY (test code = TRACY) Reference value: Non-sterile sites may be contaminated with esperanza that is considered normal or otherwise not clinically relevant. As appropriate, normal results will indicate the presence or absence of such esperanza. Otherwise, the reference value is considered "No growth". Lab Interpretation (test code = 63111-2) Abnormal [facility] Hdtd8397-52-15 10:35:39* Test Item Value Reference Range Interpretation Comme nts Bacteria Spec Cult (test code = 6463-4) ACID-FAST BACILLUS AA Acid fast bacilliREFER TO [id number] Reference value: Non-sterile sites may be contaminated with esperanza that is considered normal or otherwise not clinically relevant. As appropriate, normal results will indicate the presence or absence of such esperanza. Otherwise, the reference value is considered "No growth".[facility]ITAL[facility]obe Yvcuhqh6059-76-84 09:36:58 * Test Item Value Reference Range Interpretation Comme nts Anaerobe Culture (test code = 635-3) No anaerobes isolated in 5 days TRACY (test code = TRACY) Reference value: N o [facility]es [facility] Rd[facility]km6434[facility]-80 09:36:11* Test Item Value Reference Range Interpretation Comme nts Anaerobe Culture (test code = 635-3) No anaerobes isolated in 5 days TRACY (test code = TRACY) Reference value: N o anaerobes isolated [facility] Oitebwc2444-17-37 09:35:49* Test Item Value Reference Range Interpretation Comme nts Anaerobe Culture (test code = 635-3) No anaerobes isolated in 5 days TRACY (test code = TRACY) Reference value: N o anaerobes isolated [facility] P[facility] docked hcnicx0412-77-57 08:05:41* Test Item Value Reference Range Interpretation Comme nts Glucose POC (test code = 35101847) 107 mg/dL 74-106 H MD poultry vaccinator Notifie d Lab Interpretation (test code = 11692-9) Abnormal [facility] GLU[facility]SE P[facility] docked shscps1146-08-47 08:05:41* Test Item Value Reference Range Interpretation Comme nts Glucose POC (test code = 93689172) 107 mg/dL 74-106 H MD poultry vaccinator Notifie d Lab Interpretation (test code = 60698-0) Abnormal [facility] P[facility] docked idxndu8794-23-43 08:05:41* Test Item Value Reference Range Interpretation Comme nts Glucose POC (test code = 29540359) 107 mg/dL 74-106 H MD poultry vaccinator Notifie d Lab Interpretation (test code = 76337-3) Abnormal [facility] P[facility] docked qpgghm5846-09-96 08:05:41* Test Item Value Reference Range Interpretation Comme nts Glucose POC (test code = 70224226) 107 mg/dL 74-106 H MD poultry vaccinator Notifie d Lab Interpretation (test code = 22722-3) Abnormal [facility] POC docked pnyrmo2620-93-00 16:50:48* Test Item Value Reference Range Interpretation Comme nts Glucose POC (test code = 82317169) 107 mg/dL 74-106 H Lab Interpretation (test cod e = 29739-1) Abnormal [facility] POC docked ndhmmq2664-83-38 11:46:44* Test Item Value Reference Range Interpretation Comme nts Glucose POC (test code = 66079093) 89 mg/dL 74-106 Lab Interpretation (test cod e = 68582-0) Normal [facility] GLUCOSE POC docked tabawp1850-31-05 08:25:07* Test Item Value Reference Range Interpretation Comme nts Glucose POC (test code = 00787670) 83 mg/dL 74-106 Lab Interpretation (test cod e = 04619-4) Normal [facility] Onct9351-37-00 14:19:13* Test Item Value Reference Range Interpretation Comme nts Bacteria Spec Cult (test code = 6463-4) ACID-FAST BACILLUS AA 4+ Acid fast bacilli HHSHIV 1+2 Ab+HIV1 p24 Ag SerPl Ql [id number] 19:49:40* Test Item Value Reference Range Interpretation Comme nts HIV 1+2 Ab+HIV1 p24 Ag SerPl Ql IA (test code = 72075-5) NEGATIVE Negative HHSCoronavirus, CoVID-19, [id number] 16:40:22* Test Item Value Reference Range Interpretation Comments COVID-19 (SARS-COV-2) (test code = 94458-6) Not Detected Not Detected INTERPRETATION: No detectable [...] its performance characteristics were verified by the [facility] molecular diagnostics laboratory and is authorized for clinical diagnostic use. This laboratory is certified under the Clinical Laboratory Improvement Amendments (CLIA) as qualified to perform high complexity clinical laboratory testing. Lab Interpretation (test code = 29641-1) Normal [facility], CoVID-19, [id number] 16:40:22* Test Item Value Reference Range Interpretation Comments COVID-19 (SARS-COV-2) (test code = 68051-1) Not Detected Not Detected INTERPRETATION: No detectable [...] its performance characteristics were verified by the [facility] molecular diagnostics laboratory and is authorized for clinical diagnostic use. This laboratory is certified under the Clinical Laboratory Improvement Amendments (CLIA) as qualified to perform high complexity clinical laboratory testing. Lab Interpretation (test code = 19789-4) Normal [place] [facility]avirus, CoVID-19, [id number] 16:40:22* Test Item Value Reference Range Interpretation Comments COVID-19 (SARS-COV-2) (test code = 06099-7) Not Detected Not Detected INTERPRETATION: No detectable [...] its performance characteristics were verified by the [facility] molecular diagnostics laboratory and is authorized for clinical diagnostic use. This laboratory is certified under the Clinical Laboratory Improvement Amendments (CLIA) as qualified to perform high complexity clinical laboratory testing. Lab Interpretation (test code = 85724-5) Normal [facility]onavirus, CoVID-19, [id number] 16:40:22* Test Item Value Reference Range Interpretation Comments COVID-19 (SARS-COV-2) (test code = 11206-7) Not Detected Not Detected INTERPRETATION: No detectable [...] its performance characteristics were verified by the [facility] molecular diagnostics laboratory and is authorized for clinical diagnostic use. This laboratory is certified under the Clinical Laboratory Improvement Amendments (CLIA) as qualified to perform high complexity clinical laboratory testing. Lab Interpretation (test code = 29722-2) Normal [facility] HospitalWxtk[facility]EXLQ-TtM-5 RNA Resp Ql YOKASTA+uuudh5256-70-77 16:40:22* Test Item Value Reference Range Interpretation Comme nts Hospitalized? (test code = 46070-2) No ICU? (test code = 17871-9) No Symptomatic as defined by CDC? (test code = 80622-0) No Employed in Healthcare? (test code = 90398-7) Unknown Resident in a congregate care setting (including nursing homes, residential care for people with intellectual and developmental disabilities, psychiatric treatment facilities, group homes, board and care homes, homeless usp, foster care or other): (test code = 05785-1) Unknown SARS-CoV-2 RNA Resp Ql YOKASTA+probe (test code = 98756-1) NOT DETECTED Not Detected INTERPRETATION: No detectable [...] its performance characteristics were verified by the [facility] molecular diagnostics laboratory and is authorized for clinical diagnostic use. This laboratory is certified under the Clinical Laboratory Improvement Amendments(CLIA) as qualified to perform high complexity clinical laboratory testing.HHSHIV 1+2 Ab+HIV1 p24 Ag SerPl Ql [id number] 17:45:02* Test Item Value Reference Range Interpretation Comme nts HIV 1+2 Ab+HIV1 p24 Ag SerPl Ql [place] (test code = 39961-8) NEGATIVE Negative OSWCHKFCAJCSG2434-94-39 23:16:25* Test Item Value Reference Range Interpretation Comme nts SALICYLATE (test code = 6361518531) <10 mg/L TRACY (test code = TRACY) Therapeutic Range: ? Analgesic and Antipyretic Use ? 20-100 mg/L ? ? Anti-Inflammatory Use ? 100-250 mg/L Toxic Range: ? Greater than 300 mg/L [facility] 23:16:15* Test Item Value Reference Range Interpretation Comme nts ALCOHOL (test code = 8004041208) <10 mg/dL TRACY (test code = TRACY) <10 Bkryjerx99-475 Toxic>100 Depression of DAM WORKER>400 Fatalities Reported [facility] HospitalACETAMINOPHEN2021-05-01 23:16:10* Test Item Value Reference Range Interpretation Comme nts ACETAMINOP (test code = 1505995526) <10.0 10.0-30.0 L TRACY (test code = TRACY) Toxic: Greater chela n 200 ug/mL @ 4 hour post ingestion or greater than 50 ug/mL @ 12 hour post ingestion Lab Interpretation (test code = 04477-8) Abnormal [facility] (ALB, T.PRO, BILI T, BU/BC, ALT, AST, ALK PHOS)2021-01-30 23:14:14* Test Item Value Reference Range Interpretation Comme nts TOTAL BILI (test code = 0004161681) 0.8 mg/dL 0.1-1.1 BILI UNCON (test code = 7518964739) 0.6 mg/dL 0.1-1.1 BILI CONJ (test code = 2387644979) 0.0 mg/dL 0.0-0.3 T PROTEIN (test code = 5744503875) 7.5 g/dL 6.3-8.2 ALBUMIN (test code = 6620331895) 4.8 g/dL 3.5-5.0 ALK PHOS (test code = 8279670915) 63 U/L 34-122 ALTv (test code = 1742-6) 33 U/L 5-50 AST(SGOT) (test code = 0785420272) 36 U/L 13-40 Lab Interpretation (test cod e = 64463-3) Normal [facility] Metabolic Panel (NA, K, CL, CO2, GLUCOSE, BUN, CREATININE, CA)2021-01-30 23:13:54* Test Item Value Reference Range Interpretation Comme nts NA (test code = 3012609227) 142 mmol/L 135-145 K (test code = 7401429318) 4.3 mmol/L 3.5-5.0 CL (test code = 3032652334) 105 mmol/L 98-108 CO2 TOTAL (test code = 4049913851) 25 mmol/L 23-31 AGAP (test code = 6762990799) 2-16 BUN (test code = 5879673131) 17 mg/dL 7-23 GLUCOSE (test code = 5094274426) 86 mg/dL 70-110 CREATININE (test code = 6997193808) 0.85 mg/dL 0.60-1.25 CALCIUM (test code = 7974740831) 9.9 mg/dL 8.6-10.6 eGFR (test code = 6712586811) mL/min/1.73m2 TRACY (test code = TRACY) Association [...] or urine or abnormalities in imaging tests). [facility] (IMMUNOASSAY) - COMPREHENSIVE DRUG BZJSAQ7341-23-56 23:05:57* Test Item Value Reference Range Interpretation Comme nts AMPHET (test code = 5558726624) Presumptive Positive Negative A CHACORTA U (test code = 1028488022) Negative Negative BENZO U (test code = 1247752495) Presumptive Positive Negative A Cocaine Metabolite (test code = 3112901906) Negative Negative METHADONE (test code = 9754895621) Negative Negative OPIATES (test code = 1909361290) Presumptive Positive Negative A PCP (test code = 8541244851) Negative Negative THC (test code = 4774920345) Presumptive Positive Negative A TRACY (test code [...] legal testing). Lab Interpretation (test code = 84863-3) Abnormal [facility] (ID NOW RAPID TESTING)2021-01-30 22:34:55* Test Item Value Reference Range Interpretation Comme nts SARS-CoV-2 Rapid ID NOW (test code = 55092-0) Not Detected Not Detected TRACY (test code = TRACY) ID NOW COVID-19 As say is an isothermal nucleic acid amplification test intended for the qualitative detection of nucleic acid from SARS-CoV-2 viral RNA in nasopharyngeal (SH[employer] LABORER) specimens. It is used under Emergency [...] clinically indicated. Lab Interpretation (test code = 67477-7) Normal [facility] HospitalUrinalysis2021-05-01 22:30:19* Test Item Value Reference Range Interpretation Comme nts APPEARANCE (test code = 0451587526) Clear Clear COLOR (test code = 9467778782) Yellow Yellow PH (test code = 0705982391) 4.8-8.0 SP GRAVITY (test code = 2565283228) 1.003-1.030 GLU U QUAL (test code = 5066218199) Normal Normal BLOOD (test code = 7794583476) Negative Negative KETONES (test code = 6196346052) Negative Negative PROTEIN (test code = 2887-8) Negative Negative UROBILIN (test code = 3236159944) 2.0 mg/dL Normal A BILIRUBIN (test code = 8429978622) Negative Negative NITRITE (test code = 0370937378) Negative Negative LEUK DIONE (test code = 5768086393) Negative Negative RBC/HPF (test code = 9234545078) See_Comment [Automated messa ge] The system which generated this result transmitted reference range: 0 - 3 HPF. The reference range was not used to interpret this result as normal/abnormal. WBC/HPF (test code = 5494105716) <1 See_Comment [Automated messa ge] The system which generated this result transmitted reference range: 0 - 5 HPF. The reference range was not used to interpret this result as normal/abnormal. BACTERIA (test code = 4745873809) Negative Negative SQ EPITH (test code = 3460803800) <1 HPF Lab Interpretation (test code = 41446-9) Abnormal [facility] HospitalCBC with Peziqytjpxfb8498-37-84 22:19:35* Test Item Value Reference Range Interpretation Comme nts WBC (test code = 6690-2) See_Comment H [Automated [employer] ge] The system which generated this result [...] 34.6 g/dL 31.2-35.0 RDW-SD (test code = 67238-8) 42.8 fL 38.5-51.6 RDW-CV (test code = 788-0) 13.3 % 12.1-15.4 PLT (test code = 777-3) See_Comment H [Automated messa ge] The system which generated this result transmitted reference range: 150 - 328 10*3/?L. The reference range was not used to interpret this result as normal/abnormal. MPV (test code = 34132-2) 9.9 fL 9.8-13.0 NRBC/100 WBC (test code = 2841596558) See_Comment [Automated [employer] ssage] The system which generated this result transmitted reference range: 0.0 - 10.0 /100 WBCs. The reference range was not used to interpret this result as normal/abnormal. NRBC x10^3 (test code = 9623704180) <0.01 See_Comment [Automated messa ge] The system which generated this result transmitted reference range: 10*3/?L. The reference range was not used to interpret this result as normal/abnormal. GRAN MAT (NEUT) % (test code = 770-8) 79.2 % IMM GRAN % (test code = 7672160270) 0.50 % LYMPH % (test code = 736-9) 14.8 % MONO % (test code = 5905-5) 4.9 % EOS % (test code = 713-8) 0.2 % BASO % (test code = 706-2) 0.4 % GRAN MAT x10^3(ANC) (test code = 0397629944) 9.77 10*3/uL 1.99-6.95 H IMM GRAN x10^3 (test code = 7627595123) 0.06 10*3/uL 0.00-0.06 LYMPH x10^3 (test code = 731-0) 1.82 10*3/uL 1.09-3.23 MONO x10^3 (test code = 742-7) 0.60 10*3/uL 0.36-1.02 EOS x10^3 (test code = 711-2) 0.03 10*3/uL 0.06-0.53 L BASO x10^3 (test code = 704-7) 0.05 10*3/uL 0.01-0.09 Lab Interpretation (test code = 70050-0) [facility]normal [facility] [id number] 20:48:00* Test Item Value Reference Range Interpretation Comme nts COVID 19 INHOUSE AG (test co de = [id number]) NEGATIVE URINALYSIS DIFYVSFJ0119-06-40 16:11:00* Test Item Value Reference Range Interpretation [...] Urine Source? Clean CatchDRUGS OF ABUSE SCREEN [id number] 16:11:00* Test Item Value Reference Range Interpretation [...] (test code = METHAURN) NEGATIVE See_Comment [Automated [employer]a ge] The system which generated this result transmitted reference range: <300 ng/mL. The reference range was not used to interpret this result as normal/abnormal. Urine Source? Clean CatchURINALYSIS [id number] 15:45:00* Test Item Value Reference Range Interpretation [...] Urine Source? Clean CatchDRUGS OF ABUSE SCREEN [id number] 15:45:00* Test Item Value Reference Range Interpretation Comme nts URN COCAINE (test code = COCAURN) NEGATIVE See_Comment [Automated [employer] ge] The system which generated this result transmitted reference range: <300 ng/mL. The reference range was not used to interpret this result as normal/abnormal. URN CANNABINOIDS (test code = CANNABURN) NEGATIVE See_Comment [Automated [employer] hay] The system which generated this result transmitted reference range: <50 ng/mL. The reference range was not used to interpret this result as normal/abnormal. URN AMPHETAMINE (test code = AMPHETURN) NEGATIVE See_Comment [Automated [employer] hay] The system which generated this result transmitted reference range: <1000 ng/mL. The reference range was not used to interpret this result as normal/abnormal. URN BARBITURATE (test code = BARBITURN) NEGATIVE See_Comment [Automated [employer] hay] The system which generated this result [...] OPIATES (test code = OPIATURN) See_Comment [Automated [employer]] The system which generated this result [...] (test code = METHAURN) NEGATIVE See_Comment [Automated [employer]] The system which generated this result transmitted reference range: <300 ng/mL. The reference range was not used to interpret this result as normal/abnormal. Urine Source? Clean CatchURINALYSIS [id number] 14:21:00* Test Item Value Reference Range Interpretation [...] Urine Source? Clean CatchDRUGS OF ABUSE SCREEN [id number] 14:21:00* Test Item Value Reference Range Interpretation Comme nts URN COCAINE (test code = COCAURN) See_Comment [Automated messa ge] The system which generated this result transmitted reference range: <300 ng/mL. The reference range was not used to interpret this result as normal/abnormal. URN CANNABINOIDS (test code = CANNABURN) See_Comment [Automated [employer] hay] The system which generated this result [...] OPIATES (test code = OPIATURN) See_Comment [Automated [employer]] The system which generated this result [...] METHADONE (test code = METHAURN) See_Comment [Automated [employer]] The system which generated this result transmitted reference range: <300 ng/mL. The reference range was not used to interpret this result as normal/abnormal. Urine Source? Clean CatchURINALYSIS [id number] 14:18:00* Test Item Value Reference Range Interpretation [...] Urine Source? Clean CatchDRUGS OF ABUSE SCREEN [id number] 14:18:00* Test Item Value Reference Range Interpretation Comme nts URN COCAINE (test code = COCAURN) See_Comment [Automated [employer]] The system which generated this result transmitted reference range: <300 ng/mL. The reference range was not used to interpret this result as normal/abnormal. URN CANNABINOIDS (test code = CANNABURN) See_Comment [Automated [employer] hay] The system which generated this result [...] as normal/abnormal. Urine Source? Clean CatchBASIC METABOLIC [id number] 12:13:00* Test Item Value Reference Range Interpretation [...] CA) 9.9 mg/dL 8.5-10.1 N HEPATIC FUNCTION [id number] 12:13:00* Test Item Value Reference Range Interpretation [...] reference range due to change in reagent. [id number] 12:13:00* Test Item Value Reference Range Interpretation Comme nts ACETAMINOPHEN (test code = ACET) < 10 mcg/mL 10-30 L A RANGE OF 10-30 mcg/mL IS A THERAPEUTIC RANGE. TOXIC CONCENTRATIONS: >150 mcg/mL AT 4 HOURS AFTER INGESTION >= 50 mcg/mL AT 12 HOURS AFTER INGESTION [id number] 12:13:00* Test Item Value Reference Range Interpretation Comme nts SALICYLATE (test code = RENALDO) < 3.0 mg/dL 2.8-20.0 N [id number] 12:13:00* Test Item Value Reference Range Interpretation [...] ANADDITIONAL CHARGE TO THE PATIENT. CBC W/O [id number] 11:49:00* Test Item Value Reference Range Interpretation [...] 9.7 fL 6.7-11.0 N COVID 19 INHOUSE [id number] 00:12:00* Test Item Value Reference Range Interpretation Comme nts COVID 19 INHOUSE AG (test co de = [id number]) NEGATIVE URINALYSIS [id number] 20:58:00* Test Item Value Reference Range Interpretation [...] Urine Source? Clean CatchDRUGS OF ABUSE SCREEN [id number] 20:58:00* Test Item Value Reference Range Interpretation Comme nts URN COCAINE (test code = COCAURN) NEGATIVE See_Comment [Automated [employer]] The system which generated this result transmitted reference range: <300 ng/mL. The reference range was not used to interpret this result as normal/abnormal. URN CANNABINOIDS (test code = CANNABURN) NEGATIVE See_Comment [Automated [employer] hay] The system which generated this result transmitted reference range: <50 ng/mL. The reference range was not used to interpret this result as normal/abnormal. URN AMPHETAMINE (test code = AMPHETURN) NEGATIVE See_Comment [Automated [employer] hay] The system which generated this result transmitted reference range: <1000 ng/mL. The reference range was not used to interpret this result as normal/abnormal. URN BARBITURATE (test code = BARBITURN) NEGATIVE See_Comment [Automated [employer] hay] The system which generated this result transmitted reference range: <200 ng/mL. The reference range was not used to interpret this result as normal/abnormal. URN BENZODIAZEPINE (test code = BENZOURN) POSITIVE See_Comment [Automated [employer] age] The system which generated this result [...] as normal/abnormal. Urine Source? Clean CatchBASIC METABOLIC [id number] 20:58:00* Test Item Value Reference Range Interpretation [...] CA) 8.8 mg/dL 8.5-10.1 N HEPATIC FUNCTION [id number] 20:58:00* Test Item Value Reference Range Interpretation [...] reference range due to change in reagent. [id number] 20:58:00* Test Item Value Reference Range Interpretation Comme nts TROPONIN-I (test code = TROPI) < 0.006 ng/mL 0-0.045 N [id number] 20:58:00* Test Item Value Reference Range Interpretation Comme nts ACETAMINOPHEN (test code = ACET) < 10 mcg/mL 10-30 L A RANGE OF 10-30 mcg/mL IS A THERAPEUTIC RANGE. TOXIC CONCENTRATIONS: >150 mcg/mL AT 4 HOURS AFTER INGESTION >= 50 mcg/mL AT 12 HOURS AFTER INGESTION [id number] 20:58:00* Test Item Value Reference Range Interpretation Comme nts SALICYLATE (test code = RENALDO) < 3.0 mg/dL 2.8-20.0 N [id number] 20:58:00* Test Item Value Reference Range Interpretation [...] TO THE PATIENT. - CT HEAD/BRAIN W/O [id number] 20:52:00 [facility])Name: TEJ GUADALUPE : 1985 Sex: M Name: TEJ GUADALUPE [facility] : 1985 Age/S: 35 / M [address] [facility]: [id number] Loc: [place] [address] Phys: Shaggy Morrow MD Acct: [id number] Dis Date: Status: PRE ER PHONE#: [phone] Exam Date: 12/13/20202017 FAX #: [phone] Reason: CONFUSION EXAMS: CPT CODE: [id number] CT HEAD/BRAIN W/O CONT 28933 HISTORY: CONFUSION TECHNIQUE: Noncontrast 2.[address] ofthe head. Examination acquired within 24 hours of arrival. Automated exposure control for dose reduction. COMPARISON: None FINDINGS: No lacerations or contusions of the scalp or facial soft tissues.Calvarium and skull base are intact. No acute hemorrhage. No intracranial mass, mass effect, or midline shift. No effacement of the sulci or vaughn-white matter interface. No cortical atrophy. No signsof white matter small-vessel disease. No hydrocephalus.. No [...] S: 12/13/2020 (2054) PAGE 1 Signed ReportURINALYSIS [id number] 20:39:00* Test Item Value Reference Range Interpretation [...] Urine Source? Clean CatchDRUGS OF ABUSE SCREEN [id number] 20:39:00* Test Item Value Reference Range Interpretation [...] result as normal/abnormal. Urine Source? Clean CatchURINALYSIS [id number] 20:29:00* Test Item Value Reference Range Interpretation [...] Urine Source? Clean CatchDRUGS OF ABUSE SCREEN [id number] 20:29:00* Test Item Value Reference Range Interpretation Comme nts URN COCAINE (test code = COCAURN) See_Comment [Automated messa ge] The system which generated this result transmitted reference range: <300 ng/mL. The reference range was not used to interpret this result as normal/abnormal. URN CANNABINOIDS (test code = CANNABURN) See_Comment [Automated [employer] hay] The system which generated this result [...] METHADONE (test code = METHAURN) See_Comment [Automated [employer]] The system which generated this result transmitted reference range: <300 ng/mL. The reference range was not used to interpret this result as normal/abnormal. Urine Source? Clean CatchCBC W/O [id number] 20:22:00* Test Item Value Reference Range Interpretation [...] us with any questions. Sil Soliz Pharm.D., [facility] Clinical Carbide Tool Die Maker - Infectious Diseases [place]: [id number] T Sil Soliz [facility] 2022-05-31 16:00:25 Formatting of this n ote [...] to contact us with any questions. iSl Soliz PharmAimee, [facility] Clinical Carbide Tool Die Maker - Infectious Diseases [place]: [id number] [facility] 2022-05-30 14:28:02 Formatting of this n ote [...] us with any questions. Sil Soliz, Pharm.D., [facility] Clinical Carbide Tool Die Maker - Infectious Diseases [place]: [id number] [facility] 2022-05-29 12:08:26 Formatting of this n ote is different from the original. Pharmacy Aminoglycoside Monitoring Note Indication: NTM SSTI/abscess Day of therapy: 5 Target concentration: dosing per [place] nomogram, targeting goal peak ~25-45 mcg/mL, trough [...] contact us with any questions. Mariam Lepe RP.[facility] Clinical Carbide Tool Die Maker Hematology/Oncology [place] : [phone] Mariam Lepe [facility] 2022-05-28 10:27:53 Formatting of this n ote is different from the original. Pharmacy Aminoglycoside Monitoring Note Indication: NTM SSTI/abscess Day of therapy: 4 Target concentration: dosing per [place] nomogram, targeting goal peak ~25-45 mcg/mL, trough [...] contact us with any questions. Mariam Lepe RP.[facility] Clinical Carbide Tool Die Maker Hematology/Oncology [place] : [phone] [facility] 2022-05-27 12:23:47 Formatting of this n ote is different from the original. Pharmacy Aminoglycoside Monitoring Note Indication: NTM SSTI/abscess Day of therapy: 3 Target concentration: dosing per [place] nomogram, targeting goal peak ~25-45 mcg/mL, trough ~5 mcg/mL Concomitant antibiotics: Azithromycin, tigecycline Allergies: No known allergies Pertinent Objective Labs: Date dose/frequency concentration (peak/trough/random) 8/ 800mg q24h 5.9 (9h random) 05/27 800mg [...] contact us with any questions. Ruchi Olsen, HomerD, [facility] Phone: [phone] T Ruchi Olsen [facility] 2022-05-26 09:18:39 Formatting of this n ote is different from the original. Pharmacy Aminoglycoside Monitoring Note Indication: NTM SSTI/abscess Day of therapy: 2 Target concentration: dosing per [place] nomogram, targeting goal peak ~25-45 mcg/mL, trough ~5 mcg/mL Concomitant antibiotics: Azithromycin, tigecycline Allergies: No known allergies Pertinent Objective Labs: Date dose/frequency concentration (peak/trough/random) 8/25 800mg q24h 5.9 (9h random) Microbiology:pending Assessment: 1. CrCl: >120,Scr/BUN stable, 2. Continues on amikacin 800mg (10mg/kg) q24h 3. Random 9h level obtained today demonstrates dose appropriate per [place] nomogram Plan: 1. Will Continue current dose 2. Labs Ordered: will order 2 levels: 2-h and 8-h post dose levels to confirm Thank you for the opportunity to participate in the care of this patient. Please do not hesitate to contact us with any questions. Ruchi Olsen, PharmD, [facility] Phone: [phone] [facility] 2022-05-25 08:07:02 Associated Order(s): IP CONSULT TO [...] Micro, isolate will be sent immediately to [facility] for ID and sensis - growth from [...] this fascinating case Arash Obando MD, PhD [facility] Infectious Diseases Provider #[id number] May 25, 2022 8:09 AM History Obtained [...] homeless. He has not travelled outside of [place] recently and does not have any sick [...] and documented in the appropriate sections in [facility]. Immunization history: There is no immunization history [...] Data: All labs, images, and data reviewed. [facility] 2022-05-23 21:39:21 Associated Order(s): IP CONSULT TO [...] Dunlap MD Plastic and Reconstructive Surgery, PGY4 [facility] Pager: [phone] May 23, 2022 9:39 PM Subjective: Chief [...] with no changes. No need to repeat T [facility] History and Physical Notes Date/Time Note [...] negative from 05/19 - suspect treatment failure 2/ inadequate source control, patient denies current IVDU [...] Lydia GUADALUPE, Yasmany Gonzalez Internal Medicine PGY3 [facility] 10:02 PM, 05/23/2022 Chief Complaint: forearm pain History of Present Illness: Tej Guadalupe is a 37y.o. year old male with PMH of IVDU, polysubstance use disorder presenting with infection of the forearm at the site of IVDU injections. Patient reports being in [facility] about 1 month ago when he developed [...] separate note for my attestation. Internal Medicine [facility] Procedure Notes Date/Time Note Provider Source [...] Dunlap MD Plastic and Reconstructive Surgery, PGY4 [facility] Pager: [phone] May 31, 2022 8:36 AM [facility] 2022-05-24 16:29:09 Procedure(s): I& D O F [...] Dunlap MD Plastic and Reconstructive Surgery, PGY4 [facility] Pager: [phone] May 24, 2022 4:[address] [facility] Notes Date/Time Note Provider Source 2023-11-01 [...] of plan of care. Kelly Spence RN AND BEVERAGE SERVICE MANAGER Kelly Spence RN [facility] 2023-11-01 13:00:35 Patient to ED for anxiety due to doesn't have any of his clonazepam 2mg tabs anymore. He recently lost his grandmother and grandfather and been taking more than he is supposed to. He has been in withdrawal for 5 days. E Hawkins RN [facility] 2023-10-02 12:30:00 Pt given printed and verbal [...] with steady gait, in no apparent distress. AND BEVERAGE SERVICE MANAGER Ayah Butt RN [facility] 2023-10-02 11:56:31 Patient states: "I came here yesterday and checked in but I left. I'm detoxing off klonopin. I wanted to know if yameagan can refill it. My doctor doesn't do klonopin anymore." E Soto RN [facility] 2023-10-02 11:43:00 [facility] Emergency Department Note Patient Name: Tej Guadalupe Date of : 1985 38 year old male Treatment Room: [facility] [place] Primary Care Physician: Rene Smith (Inactive) Patient [...] he is trying to get ahold of [facility] and anybody else who can see him. [...] User Comments 10/02/23 1207 Medical Screening Begins FAJOHNCONER MD, DEB -- 10/02/23 1207 First Provider Evaluation DEB BURGOS MD [...] signed by: Deb Burgos DO 10/02/23 1220 [facility] 2023-09-28 19:25:10 Pt unable to be located. Never was seen by provider. E Presley RN [facility] 2023-09-28 18:17:15 Pt's states his doctor quit [...] something and he won't prescribe me any." E Blancas RN [facility] 2023-09-28 18:09:00 Images from the original note were not included. Patient never seen by me The following was compiled from his recent PDMP records: Dyana Jorgensen MD 09/28/231922 Dyana Jorgensen MD 09/28/231922 AND BEVERAGE SERVICE MANAGER [facility] 2022-06-03 18:30:00 Formatting of this n ote might be different from the original. Gave pt appointments, provided wound care, paper prescriptions were delivered via doctor bedside, taught about s/s of infection, removed IV, pt left with belongings via transport, no distress noted. Gave pt 3 weeks of wound care supplies. Pt left via Lyft. key worker provided instructions on how to request a Lyft. No needs at this time. Belkis [facility] 2022-06-03 18:30:00 Formatting of this n ote [...] vein thrombosis or pressure ulcers. Outcome: Resolved [facility] 2022-06-03 17:38:37 Formatting of this n ote is different from the original. 06/03/22 1737 Intervention Financial Needs Other (Comment) ([facility] SELF-PAY/SELF-PAY SCREENED) Referral Data Referral Reason [...] provide patient's with wound care supplies. Glory BISWAS ACM-RN EC Nurse Cemetery Counselor [facility] / [facility]# [phone] Glory Tran RN [facility] 2022-06-03 04:38:15 Formatting of this n [...] activities. Outcome: Met This Shift Kristine Melgoza [facility] 2022-06-02 19:47:16 Formatting of this n [...] or pressure ulcers. Outcome: Met This Shift [facility] 2022-06-02 04:02:37 Formatting of this n ote [...] perform desired activities. Outcome: Met This Shift [facility] 2022-06-01 16:07:00 Formatting of this n ote [...] Safe And Comfortable Outcome: Met This Shift [facility] 2022-06-01 16:04:25 Formatting of this n ote is different from the original. 06/01/22 1602 Intervention Coordination of Care Multidisciplinary team (S/p I+D of 4x abscesses on 05/25 and 05/31.infection) Disease Management Meets criteria for Inpatient Medical Necessity Screening Concurrent review ([id number]) Oumou Villa MSN, BSN, CMS-RN Clinical Nurse Cemetery Counselor [phone] Oumou Villa RN [facility] 2022-06-01 05:30:00 Formatting of this n [...] Outcome: Met This Shift Jessika Connolly RN [facility] 2022-05-31 16:17:37 Formatting of this n [...] drainage, and pain. Outcome: Met This Shift [facility] 2022-05-31 10:15:18 Formatting of this n ote is different from the original. Nutrition Screen by Inspector Watch Assembly, Registered Nutrition Screen re: LOS x 7 [...] labs Available/Consult PRN Signature: Kelly Boo DTR [id number] Pager: [phone] Please see Dietitian Note(s) in Plan of Care. Nutrition [facility] 2022-05-31 06:47:50 Formatting of this n [...] Outcome: Met This Shift Charline Ren RN [facility] 2022-05-30 16:05:44 Formatting of this n ote is different from the original. Initial visit, pt and one family member present, encouragement and spiritual support provided which resulted in hope being expressed. 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 Jew Patient's significant other Patient's Significant Other Designation Immediate family Spiritual Resources Spiritual Resources Awareness of the Holy;Hope Warehouse Manager Assessment (Emotional Needs) Emotional Needs Grief/mourning Warehouse Manager Assessment (Spiritual Needs) Patient Expressing Grief/mourning;Helplessness Patient Exploring Brigitte and values Warehouse Manager Interventions Emotional Needs Non-anxious, non-judgmental presence provided;Emotions explored;Emotions validated;Hope encouraged;Reflective listening provided Spiritual Needs Grief/mourning explored, encouraged and/or enabled;Brigitte and or beliefs explored and/or validated;Pastoral counseling provided Chaplain Matos [phone] [facility] 2022-05-30 15:46:11 Formatting of this n [...] activities. Outcome: Met This Shift Edward Velasco [facility] 2022-05-30 05:30:02 Formatting of this n [...] perform desired activities. Outcome: Met This Shift [facility] 2022-05-29 18:34:41 Formatting of this n ote [...] Outcome: Met This Shift Octavia Agosto RN [facility] 2022-05-29 05:08:04 Formatting of this n [...] Outcome: Met This Shift Tyron Enriquez RN [facility] 2022-05-28 18:31:40 Formatting of this n [...] Octavia Agosto RN Outcome: Met This Shift T [facility] 2022-05-28 16:41:40 Formatting of this n [...] perform desired activities. Outcome: Met This Shift [facility] 2022-05-28 05:28:45 Formatting of this n [...] or positive cultures. Outcome: Met This Shift [facility] 2022-05-27 14:32:23 Formatting of this n [...] Outcome: Met This Shift Kavita Shelton RN [facility] 2022-05-27 05:52:57 Formatting of this n [...] or positive cultures. Outcome: Met This Shift [facility] 2022-05-26 15:14:40 Formatting of this n ote [...] done this shift. Patient verbalized understanding. Appropriate double end tenoner setter used. Problem: Falls / Injury Goal: Absence [...] Outcome: Met This Shift No Montoya RN [facility] 2022-05-26 11:00:00 Formatting of this n [...] discuss options. SW had contacted both [facility] [phone] and [facility] [phone] per Pt's request and was informed there were no beds available. [facility] only has available beds in locations outside [place] like [facility] and [place]. SW suggested other treatment centers including "[facility] [employer]" [phone] who stated they have available beds and Pt is free to come to their facility in [place], ask for Layo with Intake Department. SW also provided [facility] as an option. Pt declined both options, stated he will talk with his family and may have to choose one of the [facility] locations outside of [place]. Pt will inform SW when decision is reached. Artem Cohn LMSW Electrical Continuity Inspector II [facility] Office: [phone] Nikolai: [phone] Artem Barrera [facility] 2022-05-25 14:25:36 Formatting of this n ote [...] Responses. Outcome: Met This Shift Emerald Ruiz [facility] 2022-05-25 10:28:37 Formatting of this n [...] [employer] - Plates have been sent to [facility] for identification and sensitivities Recommendations: - After [...] Dr. Obando. Venu Ramos Medical Student, MS4 [facility] History Obtained From: patient, electronic [...] homeless. He has not travelled outside of [place] recently and does not have any sick [...] labs, images, and data reviewed. Internal Medicine [facility] 2022-05-25 03:18:34 Formatting of this n [...] And Objective Responses. Outcome: Met This Shift [facility] 2022-05-24 18:27:10 Formatting of this n ote [...] And Objective Responses. Outcome: Met This Shift [facility] 2022-05-24 11:04:15 Formatting of this n ote is different from the original. Case management note: Chart reviewed for medical necessity and hospitalization 05/24/22 1103 Intervention Disease Management Meets criteria for Inpatient Medical Necessity Screening Concurrent review ([id number]) Patient meet inpatient criteria Please place order Admit to Inpatient Thank you, Samanta Hassan MSN, ACM-RN Clinical Nurse Cemetery Counselor [facility] | [address] | [place] [address] P: [phone] |F: [id number]| Samanta Hassan RN [facility] 2022-05-24 08:50:00 Formatting of this n ote is different from the original. 05/24/22 0850 Charting Type Charting Type Initial Patient Status Current Status Observation New Status Recommendation Observation Patient Information Source of Information Patient;Other (Comment) County of Residence [place] Country of [place] Immigration Status: [place] Citizen [...] Family Information Patient Marital Status Single Primary Calender Worker Helper Lydia Guadalupe (father) [phone] Income Information Income Source Unemployed Financial Resources Funding Source/Insurance Status Self-Pay Transportation Transportation Needs Private/family transportation Legal Information Legal Concerns No unmet needs Name, surrogate decision maker Lydia Guadalupe (father) [phone] Decision maker contact # Lydia vuong) [phone] Mental Health Mental Health Concerns No past / current concerns Acuity Level Medical Acuity Category 3 Construction Economist Acuity Mild Strengths and Limitations Patient Strengths [...] residing with father at the address on [address] [place] [address], however, will be discharging to sister's upon discharge from the hospital. Pt did not remember the address of sister's house. Family will provide discharge transportation. Healthcare Agent: Lydia Guadalupe (father) [phone]. Artem Cohn LMSW Electrical Continuity Inspector II [facility] Office: [id number] Nikolai: [phone] [facility] 2022-05-24 06:45:53 Formatting of this n [...] or positive cultures. Outcome: Met This Shift [facility] 2022-05-24 04:17:46 Formatting of this n ote might be different from the original. Patient transferred to . Patient refused wheelchair for transfer. Report given to Hanh MARTINI. Patient AAOx4. Ambulates independently. Respirations clear and unlabored. Skin appropriate to ethnicity. Skin intact with abscesses to the right and left forearms. Lupillo Jo [facility] 2022-05-24 02:00:00 Formatting of this n ote might be different from the original. Pt resting in room quietly, respirations even nonlabored, no acute distress. Cynthia [facility] 2022-05-23 23:58:21 Formatting of this n ote might be different from the original. Pt brought meal tray per regular diet ordered by [facility] 2022-05-23 22:47:00 Formatting of this n [...] extremities spontaneously. Patient pending medical bed admission. [facility] 2022-05-23 22:11:16 Formatting of this n ote might be different from the original. Pt ambulatory to B4 for admission with triage nurse. Pt A&OX4, respirations even nonlabored, no acute distrress/no airway distress. [facility] 2022-05-23 13:29:36 Formatting of this n [...] History provided by: Medical records and patient rip machine operator used: No Abscess Location: Shoulder/arm Shoulder/arm abscess [...] [AA] Alissa Avitia MD [JU] Chicho Painter, ResidentMD [MR] Orlando Donald PA MDM Number of [...] Continue to monitor in the emergency department NAVEEN Lane-[facility] PA Fellow Provider #[id number] 05/23/22 2:04 PM Clinical Impression 1. Cutaneous abscess of right upper extremity 2. Cellulitis of right upper extremity PROVIDER REASSESSMENT NOTE I reexamined the patient Tej Guadalupe. Latest vital signs are: Vitals: 05/23/22 1053 [...] Reyes MD August 01, 2022 11:[address] [facility] 2022-05-23 10:59:29 Formatting of this n ote might be different from the original. ABC intact. Resp even and unlabored. Skin warm and dry with color appropriate to ethnicity. Pt in stable condition. NAD. Verified name and verbally with pt and armband. Informed pt to notify this RN or staff if wanting to leave, and/or experiencing any changes in condition. Mary Jane Chenug RN [facility] 2022-05-23 10:50:34 Formatting of this n [...] May 23, 2022 10:52 AM Nurse Practitioner [facility] 2022-05-22 20:38:38 Formatting of this n ote might be different from the original. Tej Guadalupe called within waiting room and did not answer x3. Patient name paged overhead within the Emergency Department without response. Waiting rooms, ED care areas and restrooms visualized and patient not found. Michelle Cuenca RN [facility] 2022-05-22 13:26:33 Formatting of this n [...] May 22, 2022 1:29 PM Nurse Practitioner [facility] 2022-05-19 19:48:02 Formatting of this n ote might be different from the original. Pt AAOX4. Discharge instructions and prescription given, pt verbalizes understanding. Escorted to checkout with belongings in hand. Ambulatory with steady gait. VSS. Respirations even and unlabored. NAD upon departure. Jah Bueno RN [facility] 2022-05-19 19:35:00 Formatting of this n [...] at this time Pt Is pending d/c [facility] 2022-05-19 15:56:27 Associated Order(s): I&D of [...] for cellulitis and had procedure (surgical I&D) ([place]), treated with cellulitis and sent home [...] 05/19/2022 7:03 PM Performed by: Chris Marrufo ResidentMS Authorized by: Daniel Petit MD Consent: Consent given by: Patient [place] protocol: Procedure explained and questions answered to [...] management comments: 37 year old male with H substance abuse and IV drug use (crystal [...] Impression 1. Right wrist pain Chris Marrufo [facility] Resident 05/19/22 1641 Chris Marrufo, [facility] Resident 05/19/22 1738 Chris Marrufo [facility] Resident 05/19/22 1739 Aziz, Moez K, ResidentMD Resident 05/19/22 1847 Chris Marrufo, ResidentMD Resident 05/19/22 1908 TEACHING PHYSICIAN NOTE I [...] PM Daniel Petit MD 05/19/222225 Internal Medicine [facility] 2022-05-19 15:51:03 Formatting of this n [...] continue to monitor VINI Gonzalez Antwon Gonzalez [facility] 2022-05-19 12:42:01 Formatting of this n ote might be different from the original. Pt noted to have another hospital arm band on stated "they told me to come here to get them lanced" Emma Weathers RN [facility] 2022-05-19 12:32:25 Formatting of this n ote might be different from the original. Name and verified and confirmed correct with patient. [facility] 2022-05-19 12:30:12 Formatting of this n [...] NAVEEN Matthews May 19, 2022 12:[address] [facility] 2020-12-13 19:54:00 [facility] ([facility]) EMERGENCY PROVIDER REPORT REPORT#:[id number] REPORT STATUS: Signed DATE:12/13/20 TIME: 1953 PATIENT: TEJ GUADALUPE UNIT #: [id number] ROOM/BED: AGE: 35 SEX: M PCP PHYS: [...] Notes Patient states he is withdrawing from [employer] [facility] [employer] and thinks he may have had a [...] and squeezes hands appropriately upon command. Normal ipiu-xw-fcbo eye movements on extraocular muscle testing. No [...] pH (5.0 - 8.0) 6.5 Ur Specific [place] (1.001 - 1.035) 1.014 Urine Protein (NEGATIVE [...] 2238 (to Dr. Mari) at 2238 RPT #:[id number] END OF REPORT [facility] 2020-12-13 19:54:00 [facility] ([facility]) EMERGENCY PROVIDER REPORT REPORT#:[id number] REPORT STATUS: Signed DATE:12/13/20 TIME: 1953 PATIENT: TEJ GUADALUPE UNIT #: [id number] ROOM/BED: AGE: 35 SEX: M PCP PHYS: [...] Notes Patient states he is withdrawing from [employer] and thinks he may have had a [...] and squeezes hands appropriately upon command. Normal bhpe-gd-wkij eye movements on extraocular muscle testing. No [...] pH (5.0 - 8.0) 6.5 Ur Specific [place] (1.001 - 1.035) 1.014 Urine Protein (NEGATIVE [...] Ox 100 12/13 1950 B/P 154/84 12/13 1949 B/P Mean 107 12/13 1949 O2 Delivery Room air 12/13 1949 Temp 36.7 12/13 1949 Pulse 102 12/13 1949 Resp 16 12/13 1949 All vital signs available at the time of this entry have been reviewed. Clinical Impression Clinical Impression Primary Impression: Depression Secondary Impressions: POSSIBLE SEIZURE Pt/Provider Handoff Care Transferred at 2238 (to Dr. Mari) Katarina Mari. 12/14/2018: Re-Evaluation MDM Re-Evaluation/Progress #1 Text/Dict Note Patient to be signed over to Dr. Rhodes at 7 AM. I will continue to monitor the patient until that time. Time of Re-Eval 18 at 2238 at 0519 RPT #:[id number] END OF REPORT [facility] 2020-12-13 19:54:00 [facility] ([facility]) EMERGENCY PROVIDER REPORT REPORT#:[id number] REPORT STATUS: Signed DATE:12/13/20 TIME: 1953 PATIENT: TEJ GUADALUPE UNIT #: [id number] ROOM/BED: AGE: 35 SEX: M PCP PHYS: [...] Notes Patient states he is withdrawing from [place] and [employer] and thinks he may have had a [...] and squeezes hands appropriately upon command. Normal skyx-et-yqud eye movements on extraocular muscle testing. No [...] pH (5.0 - 8.0) 6.5 Ur Specific [place] (1.001 - 1.035) 1.014 Urine Protein (NEGATIVE [...] Negative CT head. Location: RR Impression By: Amanda - Tano Gauthier MD Point [...] at 2238 at 0519 at 0803 RPT #:[id number] END OF REPORT [facility] 2020-12-06 16:41:00 [facility] ([facility]) EMERGENCY PROVIDER REPORT REPORT#:[id number] REPORT STATUS: Signed DATE:12/06/20 TIME: 1641 PATIENT: TEJ GUADALUPE UNIT #: [id number] ROOM/BED: AGE: 35 SEX: M PCP PHYS: [...] History - Adult Stated Complaint SENT FROM [facility] FOR [facility]OX Allergies Coded Allergies: No Known Allergies (12/06/20) Smoking status: Smoking status for patients 13 years old or older: Current every day smoker Physical Exam Vital Signs Vital Signs First Documented: Result Date Time Pulse Ox 97 12/06 1402 B/P 129/87 03/ 1402 B/P Mean 101 03/ 1402 O2 Delivery Room air / 1402 Temp 36.6 03/07 1402 Pulse 93 [...] 1402 Pulse 93 03/ 1402 Resp 16 12/06 1402 Last Documented: Result Date Time Pulse Ox 97 03/ 1402 B/P 129/87 03/ 1402 B/P Mean 101 03/ 1402 O2 Delivery Room air 03/ 1402 Temp 36.6 03/ 1402 Pulse 93 / 1402 Resp 16 12/06 1402 All vital signs available at the time of this entry have been reviewed. Clinical Impression Clinical Impression Primary Impression: Benzodiazepine abuse Disposition Decision Other Against Medical Advice Yes at 1528 RPT #:[id number] END OF REPORT [facility]
[2025-02-12] MEDS ORDERED: ONDANSETRON 4 MG (ODT) TAB ONE (09:49)
[2025-02-12] MEDS ORDERED: clonazePAM 1 MG TAB ONE (09:50)
--- NOTE | 2025-02-12 10:01 | EDPHYS ---
Physician Documentation [facility] Name: Anthony Au Age: 39 yrs Sex: Male : 1985 Arrival Date: 02/12/2025 Time: 09:01 Bed 20 Private MD: KAYLIE Physician River Kang HPI: 02/12 09:52 This 39 yrs old Male presents to ER via Ambulatory with complaints of Neck irvin Problem - RT SIDE, Anxiety. 09:52 The patient or guardian complains of decreased range of motion, pain. The symptoms are irvin located. Historical: - PMHx: 09:16 Anxiety; Asthma; Bipolar disorder; Depression; detox seizures; scalp laceration repair.;bp - PSHx: 09:16 I\T\D; bp - Immunization history:: Adult Immunizations up to date. - Infectious Disease History:: Denies. - Social history:: Smoking status: Patient denies any tobacco usage or history of. ROS: 09:56 Constitutional: Negative for fever, chills, and weight loss, Eyes: Negative for injury, irvin pain, redness, and discharge, ENT: Negative for injury, pain, and discharge, Cardiovascular: Negative for chest pain, palpitations, and edema, Respiratory: Negative for shortness of breath, cough, wheezing, and pleuritic chest pain, Back: Negative for injury and pain, : Negative for injury, bleeding, discharge, and swelling, MS/Extremity: Negative for injury and deformity, Skin: Negative for injury, rash, and discoloration, Neuro: Negative for headache, weakness, numbness, tingling, and seizure, Psych: Negative for depression, anxiety, suicide ideation, homicidal ideation, and hallucinations, Allergy/Immunology: Negative for hives, rash, and allergies, Endocrine: Negative for neck swelling, polydipsia, polyuria, polyphagia, and marked weight changes, Hematologic/Lymphatic: Negative for swollen nodes, abnormal bleeding, and unusual bruising, 09:56 Neck: Positive for pain with movement, pain at rest, 09:56 Abdomen/GI: Positive for nausea, 09:56 Psych: Positive for anxiety, Exam: 09:56 Constitutional: This is a well developed, well nourished patient who is awake, alert, irvin and in no acute distress. Head/Face: Normocephalic, atraumatic. Eyes: Pupils equal round and reactive to light, extra-ocular motions intact. Lids and lashes normal. Conjunctiva and sclera are non-icteric and not injected. Cornea within normal limits. Periorbital areas with no swelling, redness, or edema. ENT: Nares patent. No nasal discharge, no septal abnormalities noted. Tympanic membranes are normal and external auditory canals are clear. Oropharynx with no redness, swelling, or masses, exudates, or evidence of obstruction, uvula midline. Mucous membranes moist. Neck: Trachea midline, no thyromegaly or masses palpated, and no cervical lymphadenopathy. Supple, full range of motion without nuchal rigidity, or vertebral point tenderness. No Meningismus. Chest/axilla: Normal chest wall appearance and motion. Nontender with no deformity. No lesions are appreciated. Cardiovascular: Regular rate and rhythm with a normal S1 and S2. No gallops, murmurs, or rubs. Normal PMI, no JVD. No pulse deficits. Respiratory: Lungs have equal breath sounds bilaterally, clear to auscultation and percussion. No rales, rhonchi or wheezes noted. No increased work of breathing, no retractions or nasal flaring. Abdomen/GI: Soft, non-tender, with normal bowel sounds. No distension or tympany. No guarding or rebound. No evidence of tenderness throughout. Back: No spinal tenderness. No costovertebral tenderness. Full range of motion. Male : Normal genitalia with no discharge or lesions. Skin: Warm, dry with normal turgor. Normal color with no rashes, no lesions, and no evidence of cellulitis. MS/ Extremity: Pulses equal, no cyanosis. Neurovascular intact. Full, normal range of motion., bilateral aka Neuro: Awake and alert, GCS 15, oriented to person, place, time, and situation. Cranial nerves II-XII grossly intact. Motor strength 5/5 in all extremities. Sensory grossly intact. Cerebellar exam normal. Normal gait. Psych: Awake, alert, with orientation to person, place and time. Behavior, mood, and affect are within normal limits. Vital Signs: 09:14 BP 147 / 101; Pulse 95; Resp 16; Temp 98; Pulse Ox 100% ; Weight 95.25 kg; Height 5 ft. bp 8 in. ; 09:14 Body Mass Index 31.93 (95.25 kg, 172.72 cm) bp MDM: 09:10 Medical Screening Exam initiated [facility] 09:58 Differential diagnosis: cervical strain, Neck Contusion torticollis. Data reviewed: [facility] vital signs, nurses notes. Consideration of Admission/Observation Escalation of care including admission/observation considered. I considered the following discharge prescriptions or medication management in the emergency department Medications were administered in the Emergency Department. See MAR. Test considered but Not performed: Labs: no labs. Care significantly affected by the following chronic conditions: anxiety, asthma, depression, detox. Administered Medications: :53 Drug: clonazePAM PO 1 mg PO once Route: PO; bp 10:09 Follow up: Response: No adverse reaction bp 09:53 Drug: Ondansetron Oral Disintegrating Tablet Oral Disintegrating Tablet 4 mg PO once bp Route: PO; 10:10 Follow up: Response: No adverse reaction bp Disposition Summary: 02/12/25 10:00 Discharge Ordered Notes: Location: Home [facility] Problem: an acute exacerbation [facility] Symptoms: have improved irvin Condition: Stable [facility] Diagnosis - Other specified anxiety disorders [facility] - Other chronic pain - neck irvin Followup: [facility] - With: Private Physician - When: 2 - 3 days - Reason: Recheck today's complaints, Continuance of care, Re-evaluation by your physician Discharge Instructions: - Discharge Summary Sheet [facility] - Managing Anxiety, Adult [facility] Forms: - Medication Reconciliation Form [facility] - Antibiotic Education [facility] - Prescription Opioid Use [facility] - Patient Portal Instructions [facility] - Leadership Thank You Letter [facility] Prescriptions: - Hydroxyzine HCl 50 mg Oral Tablet - take 1 tablet ORAL route every 8 hours As needed; 20 tablet; Refills: 0, [facility] Product Selection Permitted Signatures: River Kang MD MD cha Peltier, Brian, RN RN bp
--- NOTE | 2025-02-12 10:01 | ER ---
Nurse's Notes [facility] [place] Name: Anthony Au Age: 39 yrs Sex: Male : 1985 Arrival Date: 02/12/2025 Time: 09:01 Bed 20 Private MD: Diagnosis: Other specified anxiety disorders;Other chronic pain-neck Presentation: 02/12 09:14 Chief complaint: Patient states: "I WANT MY NECK CHECKED OUT, CAUSE IT BEEN BOTHERING bp ME. AND I BEEN HAVING AN ANXIETY ATTACK ALL MORNING. I TAKE CLONAZEPAM, BUT THIS GIRL TOOK SOME, SO I'M SHORT. AND I WANT TO GET MY BLOOD CHECKED FOR MY DISABILITY.". Coronavirus screen: At this time, the client does not indicate any symptoms associated with coronavirus-19. Ebola Screen: No symptoms or risks identified at this time. Acute neurological deficit: none identified. Initial Sepsis Screen: Does the patient meet any 2 criteria? No. Patient's initial sepsis screen is negative. Does the patient have a suspected source of infection? No. Patient's initial sepsis screen is negative. Risk Assessment: Do you want to hurt yourself or someone else? Patient reports no desire to harm self or others. Onset of symptoms was February 12, 2025. 09:14 Method Of Arrival: Ambulatory bp 09:14 Acuity: MARKY 4 bp Triage Assessment: 09:16 General: Appears in no apparent distress. Behavior is cooperative, appropriate for age, bp anxious. Pain: Complains of pain in back of neck. EENT: No deficits noted. Neuro: No deficits noted. Cardiovascular: No deficits noted. Respiratory: No deficits noted. GI: No signs and/or symptoms were reported involving the gastrointestinal system. : No signs and/or symptoms were reported regarding the genitourinary system. Derm: No deficits noted. Musculoskeletal: No deficits noted. Historical: - PMHx: 09:16 Anxiety; Asthma; Bipolar disorder; Depression; detox seizures; scalp laceration repair.;bp - PSHx: 09:16 I\\T\\D; bp - Immunization history:: Adult Immunizations up to date. - Infectious Disease History:: Denies. - Social history:: Smoking status: Patient denies any tobacco usage or history of. Screenin:17 [facility] ED Fall Risk Assessment (Adult) History of falling in the last 3 months, bp including since admission No falls in past 3 months (0 pts) Confusion or Disorientation No (0 pts) Intoxicated or Sedated No (0 pts) Impaired Gait No (0 pts) Mobility Assist Device Used No (0 pt) Altered Elimination No (0 pt) Score/Fall Risk Level 0 - 2 = Low Risk Oriented to surroundings. Abuse screen: Denies threats or abuse. Denies injuries from another. Nutritional screening: No deficits noted. Tuberculosis screening: No symptoms or risk factors identified. Assessment: 09:17 General: SEE TRIAGE NOTE. bp 10:08 Reassessment: Patient appears in no apparent distress at this time. Patient is alert, bp oriented x 3, equal unlabored respirations, skin warm/dry/pink. Neuro: Level of Consciousness is awake, alert, obeys commands, Oriented to Appropriate for age. Vital Signs: 09:14 BP 147 / 101; Pulse 95; Resp 16; Temp 98; Pulse Ox 100% ; Weight 95.25 kg; Height 5 ft. bp 8 in. ; 09:14 Body Mass Index 31.93 (95.25 kg, 172.72 cm) bp ED Course: 09:05 Patient arrived in ED. [id number] 09:10 River Kang MD is Attending Physician. [facility] 09:10 Rafita Staton, VINI is Primary Nurse. bp 09:16 Triage completed. bp 09:16 Arm band placed on. bp 09:17 Patient has correct armband on for positive identification. bp 10:08 No provider procedures requiring assistance completed. IV discontinued, intact, bp bleeding controlled, No redness/swelling at site. Pressure dressing applied. Administered Medications: 09:53 Drug: clonazePAM PO 1 mg PO once Route: PO; bp 10:09 Follow up: Response: No adverse reaction bp 09:53 Drug: Ondansetron Oral Disintegrating Tablet Oral Disintegrating Tablet 4 mg PO once bp Route: PO; 10:10 Follow up: Response: No adverse reaction bp Medication: 09:17 VIS not applicable for this client. bp Outcome: 10:00 Discharge ordered by . irvin 10:08 Discharged to home ambulatory, bp 10:08 Condition: stable 10:08 Discharge instructions given to patient, Instructed on discharge instructions, follow up and referral plans. medication usage, Demonstrated understanding of instructions, follow-up care, medications, Prescriptions given X 1, 10:10 Patient left the ED. bp Signatures: River Kang MD MD cha Peltier, Brian, RN RN Pema Lemus [id number]
[2025-02-12 10:18] VITALS: BP 147/101; TEMP 98; O2SAT 100
== END 2025-02-12 10:10 | disposition home or self-care (01) ==
LOC: ER 09:01
DX: F41.8 Other specified anxiety disorders (principal); G89.29 Other chronic pain
CPT/HCPCS: 99283; Q0162